=== PATIENT | male | born 1965 | race Two or more races ===

== ENCOUNTER → 2017-04-10 | Outpatient (CLI) | payer OTHER ==
[~2017-04-10] MED LIST: /ESOM40CA PO; /FENO14TA PO; ALLO100T OR; AMBI10TA OR; AMBI10TA PO; AMBI12.52 PO; ASPI325T OR; ASPI81TA85 PO; ATEN100T; ATEN100T OR; ATEN100T PO; ATEN50TA2; ATENPOW; BENGGEL2 TOP; CALCTAB28 PO; CITALOPRAM PO; CLONI1TA PO; DICL50TA2 PO; ESZO1TAB2 PO; FOLI1TAB OR; HYDR-3363 PO; HYDR10TAB PO; INDO25CA PO; INDO50CA PO; LIDO5DIS41 TD; LIPI10TA PO; LISI10TA4 PO; LOVA1CAP16 PO; LUNE2TAB23 PO; LYRI75CA OR; METH2.5T OR; NAPR500T PO; NAPR500T2 PO; NEUR300C PO; NICO14DI3 TD; NICO21DI4 TD; NICO7DIS4 TD; NORV5TAB PO; OXYC-208 PO; PAXI20TA OR; PLAQ200T PO; PLAQUENIL PO; PRED20TA OR; PREG50CA OR; SERT100T OR; TRAM50TA2 OR; TRAZ100T OR; TRIC145T19 OR; TYL RE; TYLE325T5 PO; ULTR50TA PO; ZEST10TA OR; ZETI10TA OR; ZETI10TA21 PO; ZOLO50TA; ZOLOFT PO; lovaza OR; oxycodone IR PO; plaquenil OR
--- NOTE | 2017-04-29 01:19 | ECWPNPC ---
PATIENT NAME: JANICE LAY : 1965 GENDER: MALE VISIT DATE: 04/10/2017 DISCHARGE DATE: 04/10/17 1400 VISIT LOCKED DATE TIME: PHYSICIAN: VIJI RODRIGUEZ RESOURCE: VIJI RODRIGUEZ REASON FOR APPOINTMENT 1. BACK/ANKLES HISTORY OF PRESENT ILLNESS NEW PATIENT CONSULT: WHEN DID YOUR PAIN FIRST START? . BRIEFLY DESCRIBE HOW YOUR PAIN STARTED? . HOW DOES YOUR PAIN CHANGE WITH TIME? . DOES YOUR PAIN AWAKEN YOU FROM SLEEP? . HOW MANY HOURS OF SLEEP DO YOU NORMALLY GET? . ANY DIAGNOSTIC TESTING? . FACILITY WHERE TESTS WERE DONE? ____. PAIN TREATMENT TREATMENT YES CANCER HAVE YOU EVER HAD ANY TYPE OF CANCER?NO NO. PAIN SCREENING: PATIENT HAS A COMPLAINT OF ACUTE OR CHRONIC PAIN :YES FALL RISK SCREENING: SCREENING :NO FALLS IN THE PAST YEAR [place] INVENTORY: QUESTIONNAIRE ASSESSEDYES SCORE VALUE CALCULATED YES SCORE: 9/63 DENIES SUICIDAL OR HOMICIDAL IDEATION. STATES HE HAS RESOLVED HIS LEGAL AND RELATIONSHIP ISSUES TODAY'S VISIT: NOTES: FORMER PATIENT AT [facility]IN [facility] FOR SAME COMPLAINT BY ANNE-MARIE MCDERMOTT AT [facility]. HE WAS LAST SEEN HERE 12/28/14. HAS HAS NOT SEEN ORTHOPEDICS IN [place] SINCE LAST VISIT. IS CURRENTLY USING WALKER 4-6 TIMES MONTH. HAS BEEN TRYING TO LOSE WEIGHT BUT CAN'T. PAIN IS WORSE WITH STANDING. ANKLES ARE NO LONGER SWELLING WITH INDOCIN. IS TOLERATING THIS MED.. CURRENT MEDICATIONS TAKING ALLOPURINOL 100 MG TABLET 1 TABLET ORALLY TWICE A DAY TAKING LEVOTHYROXINE SODIUM 75 MCG TABLET 1 TABLET ON AN EMPTY STOMACH IN THE MORNING ORALLY ONCE A DAY TAKING OMEPRAZOLE 20 MG CAPSULE DELAYED RELEASE 1 CAPSULE ORALLY ONCE A DAY TAKING METFORMIN HCL 500 MG TABLET 1 TABLET WITH MEALS ORALLY TWICE A DAY TAKING SIMVASTATIN 40 MG TABLET 1 TABLET IN THE EVENING ORALLY ONCE A DAY TAKING HYDROXYZINE HCL 25 MG TABLET 1 TABLET NEEDED ORALLY EVERY 6 HRS TAKING CITALOPRAM HYDROBROMIDE 20 MG TABLET 1 TABLET ORALLY ONCE A DAY TAKING ASPIRIN ADULT LOW STRENGTH 81 MG TABLET DELAYED RELEASE 1 TABLET ORALLY ONCE A DAY TAKING GEMFIBROZIL 600 MG TABLET 1 TABLET ORALLY TWICE A DAY TAKING INDOMETHACIN 50 MG CAPSULE 1 CAPSULE WITH FOOD OR MILK ORALLY TWICE A DAY NOT-TAKING ZOLOFT 100 MG TABLET 1 TABLET ORALLY ONCE A DAY MEDICATION LIST REVIEWED AND RECONCILED WITH THE PATIENT PAST MEDICAL HISTORY HYPERTENSION HISTORY OF STROKE DIABETES HYPOTHYROIDISM BILATERAL ANKLE PAIN LOW BACK PAIN ANXIETY RHEUMATOID ARTHRITIS GERD HYPERLIPIDEMIA DEPRESSION GOUT GALL STONES ALLERGIES NIACIN: RED/TINGLY: ALLERGY SURGICAL HISTORY APPENDECTOMY 2010 FAMILY HISTORY FATHER: , DIAGNOSED WITH DIABETES, HYPERTENSION, HEART DISEASE, STROKE MOTHER: ALIVE, DIAGNOSED WITH CANCER 4 BROTHER(S) , 1 SISTER(S) - HEALTHY. 1 SON(S) , 1 DAUGHTER(S) - HEALTHY. SOCIAL HISTORY GENERAL: TOBACCO USE ARE YOU A:CURRENT SMOKER HOW MANY CIGARETTES A DAY DO YOU SMOKE?6-10 PATIENT COUNSELED ON THE DANGERS OF TOBACCO USE AND URGED TO QUIT:04/10/2017 ARE YOU INTERESTED IN QUITTING?THINKING ABOUT QUITTING PREVIOUS QUIT ATTEMPTS?NO. COUNSELED THE PATIENT ON SMOKING CESSATION, EDUCATION [id number]/10/2017 RECREATIONAL DRUG USE DRUG USE?YES HOW OFTEN AND HOW MUCH? MARIJUANA FOR PAIN. USING MARIJUANA ONCE A WEEK CAFFEINE CAFFEINE USE?NO MARITAL STATUS: SINGLE. 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 ADVANCE DIRECTIVES HEALTH CARE PROXY?NO WOULD YOU LIKE MORE INFORMATION?NO DO YOU HAVE A DNR?NO WOULD YOU LIKE MORE INFORMATION?NO LIVING WILL?NO WOULD YOU LIKE MORE INFORMATION?NO POWER OF MEDICAL RECEPTIONIST?NO WOULD YOU LIKE MORE INFORMATION?NO REVIEW OF SYSTEMS REVIEWED BY: PROVIDER: VIJI VALDEZ . CONSTITUTIONAL: ANY CHANGE IN YOUR MEDICAL CONDITION? NO . CHILLS NO . FEVER NO . INFECTION: DO YOU HAVE NEW INFECTIONS? NO . DO YOU HAVE HISTORY OF MRSA? NO . MUSCULOSKELETAL: ANY NEW PATTERNS OF PAIN OR NUMBNESS? NO . SYTEMIC LUPUS NO . GASTROENTEROLOGY: GENERAL RECENTLY DIAGNOSED WITH GALL STONES AND IS BEING SCHEDULED TO SEE SURGEON. . ANY NEW CHANGE IN BOWEL CONTROL? NO . BARRETTS ESOPHAGUS NO . CIRRHOSIS NO . HEPATITIS NO . LIVER FAILURE NO . ACID REFLUX YES . UNEXPLAINED WEIGHT LOSS NO . GENITOURINARY: ANY NEW CHANGE IN BLADDER CONTROL? NO . IS THERE A CHANCE YOU COULD BE ? NO . HEMATOLOGY/LYMPH: DO YOU TAKE ANY BLOOD THINNERS? (FOR EXAMPLE- COUMADIN, PLAVIX, AGGRENOX, PLATEL, PRADAXA, OR XARELTO) NO . WHEN WAS YOUR LAST DOSE? DATE: TIME: . LOW PLATELET COUNT NO . SICKLE CELL DISEASE NO . VON WILLIEBRANDS NO . FACTOR V LEIDEN NO . THALLASEMIA NO . ANEMIA NO . EASY BRUISING NO . NEUROLOGY: HAVE YOU FALLEN IN THE PAST 6 MONTHS? NO . ANY NEW EXTREMITY NUMBNESS OR WEAKNESS? NO . HEAD INJURY NO . DEMENTIA NO . CEREBRAL PALSY NO . MULTIPLE SCLEROSIS NO . DIZZINESS NO . HEADACHE NO . STROKES NO . VERTIGO NO . CARDIOLOGY: DO YOU HAVE A PACEMAKER OR DEFIBRILLATOR? NO . ANGINA NO . HEART ATTACK NO . HEART SURGERY NO . CONGESTIVE HEART FAILURE/FLUID OVERLOAD NO . CHEST PAIN NO . HIGH BLOOD PRESSURE YES . IRREGULAR HEART BEAT NO . RESPIRATORY: HAVE YOU BEEN SICK IN THE PAST WEEK? NO . FEVER NO . FLU LIKE SYMPTOMS? NO . CPAP NO . BYPAP NO . ASTHMA NO . EMPHYSEMA NO . CHRONIC LUNG DISEASES NO . SHORTNESS OF BREATH ON EXERTION NO . DO YOU USE ANY TYPE OF TOBACCO (SMOKE, SMOKELESS, CHEW)? YES . COUGH NO . SNORING NO . INTEGUMENTARY: DO YOU HAVE ANY RASHES OR OPEN SORES? NO . ALLERGIC/IMMUNO: ARE YOU ALLERGIC TO SHELLFISH OR IV DYE? NO . ANY NEW ALLERGIES? NO . PSYCHIATRIC: DO YOU HAVE THOUGHTS OF HURTING YOURSELF OR SOMEONE ELSE? NO . ARE YOU ABUSED, NEGLECTED, OR IN AN UNSAFE ENVIRONMENT? NO . ENDOCRINOLOGY: ARE YOU DIABETIC? YES . THYROID DISORDER HYPOTHYROID . OTHER: DO YOU NEED ANY PRESCRIPTIONS? NO . IF YES, PLEASE LIST: ____ . ANY NEW PROBLEMS WITH YOUR MEDICATIONS? NO . WHEN DID YOU LAST EAT? ____ . WHEN DID YOU LAST DRINK? ____ . WHAT DID YOU LAST DRINK? ____ . NAME OF PERSON DRIVING YOU HOME? ____ . DO YOU HAVE ANY OTHER QUESTIONS OR CONCERNS NO . VITAL SIGNS WT 237 LBS, HT 58 IN, BMI 49.53 INDEX, BP 166/89 MM HG, HR 65 /MIN, RR 18 /MIN, TEMP 95.8 F, OXYGEN SAT % 96, NA INITIALS AW 1310, REVIEWED BY: TONY. EXAMINATION GENERAL EXAMINATION: GENERAL APPEARANCE:OVERWEIGHT, SOME HYGEINE ISSUES. PSYCHALERT , ORIENTED X 3 , APPROPRIATE MOOD AND AFFECT , GOOD EYE CONTACT. HEENT:NORMOCEPHALIC, NASAL CONGESTION, NO LYMPHADENOPATHY, NO THYROMEGLY. LUNGS:CLEAR TO AUSCULTATION BILATERALLY, NO WHEEZES, RLLES OR RHONCHI. MUSCULOSKELETAL:MUSCLE STRENGTH TESTING 5/5 BILATERAL UPPER AND LOWER EXTREMITIES. MILD TENDERNESS WITH PALPATION OVERLUMBAR SPINOUS PROCESSES AND ACROSS LUMBOSACRAL AXIS. SLPW TO RISE TO SITTING POSITION. POSTURE UPRIGHT. GAIT SLOW, ANTALGIC. JOINTS:BILATERAL, ANKLE , PAIN , SWELLING . TENDER OVER LATERAL AND MEDIAL MALLEOLUS. LIMITED FLEXION, EXTSION AND ROTATION. SKIN:WARM, DRY , NO RASH OR SKIN LESIONS. DIAGNOSTIC TESTS REVIEWEDMRI OF RIGHT ANKLE COMPLETED 12/20/14 REVIEWED. ASSESSMENTS PAIN IN RIGHT ANKLE AND JOINTS OF RIGHT FOOT - M25.571 (PRIMARY) PAIN IN LEFT ANKLE AND JOINTS OF LEFT FOOT - M25.572 OTHER CHRONIC PAIN - G89.29 TREATMENT PAIN IN RIGHT ANKLE AND JOINTS OF RIGHT FOOT NOTES: REFER TO DR EDDA MARKHAM FOR MEDICAL MARIJUANA. WALK TOLERATED. REVIEWED WIT PATIENT THAT OPTIONS FOR USE OF OPIATES WOULD BE VERY LIMITED CONTINUE WITH NDOCIN TOLERATED. WATCH FOR ANY GI EFFECTS SUCH BLOOD IN STOOL OR WITH EMESIS. INSTRUCTED TO REFRAIN FROM ALCOHOL USE. CLINICAL NOTES: ISTOP REGISTRY REVIEWED AND DEMNOSTRATES COMPLLIANCE. PROCEDURE CODES FA211 ESTABILISHED PATIENT [facility] FACILITY CHARGE DISPOSITION & COMMUNICATION FOLLOW UP 1 MONTH (REASON: ANKLE PAIN) ELECTRONICALLY SIGNED BY BALDEMAR MACKENZIE ON 04/28/2017 AT 08:33 AM EDT DISCLAIMER : THIS IS A VISIT SUMMARY EXTRACTED FROM THE [employer] CHART. IT IS NOT A COPY OF THE [employer] PROGRESS NOTE. ZURI
== END ==
LOC: M PAIN 13:00
PROVIDERS: ATTEND Nurse Practitioner Family
DX: M25.571 Pain in right ankle and joints of right foot (principal); M25.572 Pain in left ankle and joints of left foot; G89.29 Other chronic pain; Z79.82 Long term (current) use of aspirin; Z79.84 Long term (current) use of oral hypoglycemic drugs; Z79.899 Other long term (current) drug therapy; F17.210 Nicotine dependence, cigarettes, uncomplicated; F12.90 Cannabis use, unspecified, uncomplicated; Z88.8 Allergy status to other drugs, medicaments and biological substances

== ENCOUNTER → 2017-05-08 | Outpatient (CLI) | payer OTHER ==
--- NOTE | 2017-05-25 00:41 | ECWPNPC ---
PATIENT NAME: JANICE LAY : 1965 GENDER: MALE VISIT DATE: 05/08/2017 DISCHARGE DATE: 05/08/17 1419 VISIT LOCKED DATE TIME: PHYSICIAN: VIJI RODRIGUEZ RESOURCE: VIJI RODRIGUEZ REASON FOR APPOINTMENT 1. ANKLE PAIN HISTORY OF PRESENT ILLNESS HISTORY OF PRESENT ILLNESS: PAIN THE PATIENT DESCRIBES THE PAIN... FALL RISK SCREENING: SCREENING :NO FALLS IN THE PAST YEAR TODAY'S VISIT: NOTES: RATES PAIN TODAY 7/10. DESCRIBES PAIN CONSTANT, SHARP AND ACHING. NOTES HIS USUAL PAIN IN THE FEET AND NEW PAIN IN THE LEFT ABD. IS S/P CHOLECYSTECTOMY ON 04/21/17. HAD ONSET OF LEFT UPPER AND LOWER ABDOMENAL PAIN. TOOK A FRIENDS PERCOCET THE PAIN WAS SO SEVERE. . CURRENT MEDICATIONS TAKING ALLOPURINOL 100 MG TABLET 1 TABLET ORALLY TWICE A DAY TAKING LEVOTHYROXINE SODIUM 75 MCG TABLET 1 TABLET ON AN EMPTY STOMACH IN THE MORNING ORALLY ONCE A DAY TAKING OMEPRAZOLE 20 MG CAPSULE DELAYED RELEASE 1 CAPSULE ORALLY ONCE A DAY TAKING METFORMIN HCL 500 MG TABLET 1 TABLET WITH MEALS ORALLY TWICE A DAY TAKING SIMVASTATIN 40 MG TABLET 1 TABLET IN THE EVENING ORALLY ONCE A DAY TAKING HYDROXYZINE HCL 25 MG TABLET 1 TABLET NEEDED ORALLY EVERY 6 HRS TAKING CITALOPRAM HYDROBROMIDE 20 MG TABLET 1 TABLET ORALLY ONCE A DAY TAKING ASPIRIN ADULT LOW STRENGTH 81 MG TABLET DELAYED RELEASE 1 TABLET ORALLY ONCE A DAY TAKING GEMFIBROZIL 600 MG TABLET 1 TABLET ORALLY TWICE A DAY TAKING INDOMETHACIN 50 MG CAPSULE 1 CAPSULE WITH FOOD OR MILK ORALLY TWICE A DAY NOT-TAKING ZOLOFT 100 MG TABLET 1 TABLET ORALLY ONCE A DAY MEDICATION LIST REVIEWED AND RECONCILED WITH THE PATIENT PAST MEDICAL HISTORY HYPERTENSION HISTORY OF STROKE DIABETES HYPOTHYROIDISM BILATERAL ANKLE PAIN LOW BACK PAIN ANXIETY RHEUMATOID ARTHRITIS GERD HYPERLIPIDEMIA DEPRESSION GOUT GALL STONES ALLERGIES NIACIN: RED/TINGLY: ALLERGY SURGICAL HISTORY APPENDECTOMY 2010 CHOLECYSTECTOMY 04/21/17 SOCIAL HISTORY GENERAL: TOBACCO USE ARE YOU A:CURRENT SMOKER HOW MANY CIGARETTES A DAY DO YOU SMOKE?6-10 PATIENT COUNSELED ON THE DANGERS OF TOBACCO USE AND URGED TO QUIT:04/10/2017 ARE YOU INTERESTED IN QUITTING?THINKING ABOUT QUITTING PREVIOUS QUIT ATTEMPTS?NO. COUNSELED THE PATIENT ON SMOKING CESSATION, EDUCATION [id number]/10/2017 RECREATIONAL DRUG USE DRUG USE?YES HOW OFTEN AND HOW MUCH? MARIJUANA FOR PAIN. USING MARIJUANA ONCE A WEEK CAFFEINE CAFFEINE USE?NO MARITAL STATUS: SINGLE. 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 ADVANCE DIRECTIVES HEALTH CARE PROXY?NO WOULD YOU LIKE MORE INFORMATION?NO DO YOU HAVE A DNR?NO WOULD YOU LIKE MORE INFORMATION?NO LIVING WILL?NO WOULD YOU LIKE MORE INFORMATION?NO POWER OF GRADING SUPERVISOR?NO WOULD YOU LIKE MORE INFORMATION?NO REVIEW OF SYSTEMS REVIEWED BY: PROVIDER: VIJI VALDEZ . CONSTITUTIONAL: ANY CHANGE IN YOUR MEDICAL CONDITION? YES, CHOLECYSTECTOMY 04/21/17 AND CONTINUES TO HAVE SAME PAIN RIGHT SIDE OF ABDOMEN PRIOR TO SURGERY. PATIENT SAW SURGEON YESTERDAY REGARDING THIS PAIN AND HE HAS ORDERED A SCAN. . CHILLS NO . FEVER NO . INFECTION: DO YOU HAVE NEW INFECTIONS? NO . DO YOU HAVE HISTORY OF MRSA? NO . MUSCULOSKELETAL: ANY NEW PATTERNS OF PAIN OR NUMBNESS? NO . GASTROENTEROLOGY: GENERAL NO CONSTIPATION, DIARRHEA, RARE GAS PAIN. NO HEMATECHEZIA . ANY NEW CHANGE IN BOWEL CONTROL? NO . GENITOURINARY: ANY NEW CHANGE IN BLADDER CONTROL? NO . IS THERE A CHANCE YOU COULD BE ? NO . HEMATOLOGY/LYMPH: DO YOU TAKE ANY BLOOD THINNERS? (FOR EXAMPLE- COUMADIN, PLAVIX, AGGRENOX, PLATEL, PRADAXA, OR XARELTO) NO . WHEN WAS YOUR LAST DOSE? DATE: TIME: . NEUROLOGY: HAVE YOU FALLEN IN THE PAST 6 MONTHS? NO . ANY NEW EXTREMITY NUMBNESS OR WEAKNESS? NO . CARDIOLOGY: DO YOU HAVE A PACEMAKER OR DEFIBRILLATOR? NO . CHEST PAIN EPIGASTRIC . RESPIRATORY: TROUBLE SLEEPING DIFF WITH PAIN . HAVE YOU BEEN SICK IN THE PAST WEEK? NO . FEVER NO . FLU LIKE SYMPTOMS? NO . DO YOU USE ANY TYPE OF TOBACCO (SMOKE, SMOKELESS, CHEW)? CUTTING BACK TO 8/DAY . COUGH NO . INTEGUMENTARY: DO YOU HAVE ANY RASHES OR OPEN SORES? NO . ALLERGIC/IMMUNO: ARE YOU ALLERGIC TO SHELLFISH OR IV DYE? NO . ANY NEW ALLERGIES? NO . PSYCHIATRIC: DO YOU HAVE THOUGHTS OF HURTING YOURSELF OR SOMEONE ELSE? NO . ARE YOU ABUSED, NEGLECTED, OR IN AN UNSAFE ENVIRONMENT? NO . ENDOCRINOLOGY: ARE YOU DIABETIC? YES . OTHER: DO YOU NEED ANY PRESCRIPTIONS? NO . IF YES, PLEASE LIST: ____ . ANY NEW PROBLEMS WITH YOUR MEDICATIONS? NO . WHEN DID YOU LAST EAT? ____ . WHEN DID YOU LAST DRINK? ____ . WHAT DID YOU LAST DRINK? ____ . NAME OF PERSON DRIVING YOU HOME? ____ . DO YOU HAVE ANY OTHER QUESTIONS OR CONCERNS NO . VITAL SIGNS WT 230 LBS, HT 58 IN, BMI 48.06 INDEX, BP 132/87 MM HG, HR 79 /MIN, RR 18 /MIN, TEMP 96.5 F, OXYGEN SAT % 98, NA INITIALS AW 1325, REVIEWED BY: CS. EXAMINATION GENERAL EXAMINATION: GENERAL APPEARANCE:OVERWEIGHT. PSYCHALERT , ORIENTED X 3 , APPROPRIATE MOOD AND AFFECT , GOOD EYE CONTACT. HEENT: NASAL CONGESTION, . LUNGS:CLEAR TO AUSCULTATION BILATERALLY. MUSCULOSKELETAL:MUSCLE STRENGTH TESTING 5/5 BILATERAL UPPER AND LOWER EXTREMITIES. MILD TENDERNESS WITH PALPATION OVERLUMBAR SPINOUS PROCESSES AND ACROSS LUMBOSACRAL AXIS. SLPW TO RISE TO SITTING POSITION. POSTURE UPRIGHT. GAIT SLOW, ANTALGIC. JOINTS:BILATERAL, ANKLE , PAIN , SWELLING . TENDER OVER LATERAL AND MEDIAL MALLEOLUS. LIMITED FLEXION, EXTSION AND ROTATION. SKIN:WARM, DRY , NO RASH OR SKIN LESIONS. HELING LAPROSCOPIC WOUNDS NOTED OVER ABDOMEN. ASSESSMENTS PAIN IN RIGHT ANKLE AND JOINTS OF RIGHT FOOT - M25.571 (PRIMARY) PAIN IN LEFT ANKLE AND JOINTS OF LEFT FOOT - M25.572 OTHER CHRONIC PAIN - G89.29 LEFT UPPER QUADRANT PAIN - R10.12 TREATMENT PAIN IN RIGHT ANKLE AND JOINTS OF RIGHT FOOT START OXYCODONE HCL TABLET, 15 MG, 1 TABLET NEEDED, ORALLY, EVERY 6 HRS PRN PAIN MDD60 FOR 15 DAY SUPPLY, 15 DAYS, 60, REFILLS 0 NOTES: CALL IF CONSTIPATED. STOP INDOCIN. CALL IN 2 WEEKS TO RENEW OXYCODONE. CLINICAL NOTES: ISTOP REGISTRY REVIEWED AND DEMNOSTRATES COMPLLIANCE.DISCUSSION HELD AND PATIENT AGREES TO NOT USE ANY MEDS BUT HIS OWN. HE MUST KEEP HIS OWN MEDS SECURED. HE MUST NOT USE ANY ALCOHOL. PREVENTIVE MEDICINE PAIN CLINIC TEACHING: MEDICATIONS OXYCODONE. PROCEDURE CODES FA211 ESTABILISHED PATIENT [facility] CHARGE DISPOSITION & COMMUNICATION FOLLOW UP 26-28 DAYS (REASON: FOOT PAIN, ABD PAIN) ELECTRONICALLY SIGNED BY BALDEMAR MACKENZIE ON 05/24/2017 AT 03:20 PM EDT DISCLAIMER : THIS IS A VISIT SUMMARY EXTRACTED FROM THE [employer] CHART. IT IS NOT A COPY OF THE [employer] PROGRESS NOTE. ZURI
== END ==
LOC: M PAIN 13:15
PROVIDERS: ATTEND Nurse Practitioner Family
DX: M25.571 Pain in right ankle and joints of right foot (principal); M25.572 Pain in left ankle and joints of left foot; G89.29 Other chronic pain; R10.12 Left upper quadrant pain; E11.9 Type 2 diabetes mellitus without complications; E03.9 Hypothyroidism, unspecified; K21.9 Gastro-esophageal reflux disease without esophagitis; E78.5 Hyperlipidemia, unspecified; Z79.84 Long term (current) use of oral hypoglycemic drugs; Z79.82 Long term (current) use of aspirin; Z79.899 Other long term (current) drug therapy; Z88.8 Allergy status to other drugs, medicaments and biological substances

== ENCOUNTER → 2017-06-26 | Outpatient (CLI) | payer OTHER ==
--- NOTE | 2017-07-28 00:46 | ECWPNPC ---
PATIENT NAME: JANICE LAY : 1965 GENDER: MALE VISIT DATE: 06/26/2017 DISCHARGE DATE: 06/26/17 1542 VISIT LOCKED DATE TIME: PHYSICIAN: VIJI RODRIGUEZ RESOURCE: VIJI RODRIGUEZ REASON FOR APPOINTMENT 1. ANKLES AND BACK HISTORY OF PRESENT ILLNESS HISTORY OF PRESENT ILLNESS: PAIN THE PATIENT DESCRIBES THE PAIN... FALL RISK SCREENING: SCREENING :NO FALLS IN THE PAST YEAR TODAY'S VISIT: NOTES: RATES PAIN TODAY 2/10. THIS IS AFTER PAIN MEDS. THE WORST AREA IS THE RIGHT ABD AND FLANK AREA. ON A FEW OCCCASIONS USUAL ANKLE PAIN HAS BEEN OVERWHELMING AND NEEDED TO USE THE WALKER. PAIN MEDS ARE PRODUCING CONSTIPATION. IS CONTINUING TO HAVE SEVERE RUQ ABDOMENAL PAIN IS FOLLOWING WITH GASTROENTEROLOGY AND HIS PCP FOR THIS. CURRENT MEDICATIONS TAKING ALLOPURINOL 100 MG TABLET 1 TABLET ORALLY TWICE A DAY TAKING LEVOTHYROXINE SODIUM 75 MCG TABLET 1 TABLET ON AN EMPTY STOMACH IN THE MORNING ORALLY ONCE A DAY TAKING OMEPRAZOLE 20 MG CAPSULE DELAYED RELEASE 1 CAPSULE ORALLY ONCE A DAY TAKING METFORMIN HCL 500 MG TABLET 1 TABLET WITH MEALS ORALLY TWICE A DAY TAKING SIMVASTATIN 40 MG TABLET 1 TABLET IN THE EVENING ORALLY ONCE A DAY TAKING HYDROXYZINE HCL 25 MG TABLET 1 TABLET NEEDED ORALLY EVERY 6 HRS TAKING CITALOPRAM HYDROBROMIDE 20 MG TABLET 1 TABLET ORALLY ONCE A DAY TAKING ASPIRIN ADULT LOW STRENGTH 81 MG TABLET DELAYED RELEASE 1 TABLET ORALLY ONCE A DAY TAKING GEMFIBROZIL 600 MG TABLET 1 TABLET ORALLY TWICE A DAY TAKING INDOMETHACIN 50 MG CAPSULE 1 CAPSULE WITH FOOD OR MILK ORALLY TWICE A DAY TAKING OXYCODONE HCL 15 MG TABLET 1 TABLET NEEDED ORALLY EVERY 6 HRS PRN PAIN MDD60 FOR 15 DAY SUPPLY NOT-TAKING ZOLOFT 100 MG TABLET 1 TABLET ORALLY ONCE A DAY MEDICATION LIST REVIEWED AND RECONCILED WITH THE PATIENT PAST MEDICAL HISTORY HYPERTENSION HISTORY OF STROKE DIABETES HYPOTHYROIDISM BILATERAL ANKLE PAIN LOW BACK PAIN ANXIETY RHEUMATOID ARTHRITIS GERD HYPERLIPIDEMIA DEPRESSION GOUT GALL STONES ALLERGIES NIACIN: RED/TINGLY: ALLERGY SOCIAL HISTORY GENERAL: TOBACCO USE ARE YOU A:CURRENT SMOKER HOW MANY CIGARETTES A DAY DO YOU SMOKE?6-10 PATIENT COUNSELED ON THE DANGERS OF TOBACCO USE AND URGED TO QUIT:04/10/2017 ARE YOU INTERESTED IN QUITTING?THINKING ABOUT QUITTING PREVIOUS QUIT ATTEMPTS?NO. COUNSELED THE PATIENT ON SMOKING CESSATION, EDUCATION [id number]/10/2017 ALCOHOL SCREENING POINTS4 INTERPRETATIONPOSITIVE RECREATIONAL DRUG USE DRUG USE?YES HOW OFTEN AND HOW MUCH? MARIJUANA FOR PAIN. USING MARIJUANA ONCE A WEEK CAFFEINE CAFFEINE USE?NO MARITAL STATUS: SINGLE. 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 ADVANCE DIRECTIVES HEALTH CARE PROXY?NO WOULD YOU LIKE MORE INFORMATION?NO DO YOU HAVE A DNR?NO WOULD YOU LIKE MORE INFORMATION?NO LIVING WILL?NO WOULD YOU LIKE MORE INFORMATION?NO POWER OF SENIOR MOBILE SOLUTIONS ARCHITECT?NO WOULD YOU LIKE MORE INFORMATION?NO REVIEW OF SYSTEMS REVIEWED BY: PROVIDER: VIJI VALDEZ . CONSTITUTIONAL: ANY CHANGE IN YOUR MEDICAL CONDITION? NO . CHILLS NO . FEVER NO . INFECTION: DO YOU HAVE NEW INFECTIONS? NO . DO YOU HAVE HISTORY OF MRSA? NO . MUSCULOSKELETAL: ANY NEW PATTERNS OF PAIN OR NUMBNESS? NO . GASTROENTEROLOGY: ANY NEW CHANGE IN BOWEL CONTROL? YES, CONSTIPATED FOR PAST MONTH . GENITOURINARY: ANY NEW CHANGE IN BLADDER CONTROL? NO . IS THERE A CHANCE YOU COULD BE ? NO . HEMATOLOGY/LYMPH: DO YOU TAKE ANY BLOOD THINNERS? (FOR EXAMPLE- COUMADIN, PLAVIX, AGGRENOX, PLATEL, PRADAXA, OR XARELTO) NO . WHEN WAS YOUR LAST DOSE? DATE: TIME: . NEUROLOGY: HAVE YOU FALLEN IN THE PAST 6 MONTHS? NO . ANY NEW EXTREMITY NUMBNESS OR WEAKNESS? NO . CARDIOLOGY: DO YOU HAVE A PACEMAKER OR DEFIBRILLATOR? NO . RESPIRATORY: HAVE YOU BEEN SICK IN THE PAST WEEK? NO . FEVER NO . FLU LIKE SYMPTOMS? NO . COUGH NO . INTEGUMENTARY: DO YOU HAVE ANY RASHES OR OPEN SORES? NO . ALLERGIC/IMMUNO: ARE YOU ALLERGIC TO SHELLFISH OR IV DYE? NO . ANY NEW ALLERGIES? NO . PSYCHIATRIC: DO YOU HAVE THOUGHTS OF HURTING YOURSELF OR SOMEONE ELSE? NO . ARE YOU ABUSED, NEGLECTED, OR IN AN UNSAFE ENVIRONMENT? NO . ENDOCRINOLOGY: ARE YOU DIABETIC? YES . OTHER: DO YOU NEED ANY PRESCRIPTIONS? NO . IF YES, PLEASE LIST: ____ . ANY NEW PROBLEMS WITH YOUR MEDICATIONS? NO . WHEN DID YOU LAST EAT? ____ . WHEN DID YOU LAST DRINK? ____ . WHAT DID YOU LAST DRINK? ____ . NAME OF PERSON DRIVING YOU HOME? ____ . DO YOU HAVE ANY OTHER QUESTIONS OR CONCERNS NO . VITAL SIGNS WT 228.6 LBS, HT 58 IN, BMI 47.77 INDEX, BP 139/91 MM HG, HR 73 /MIN, RR 18 /MIN, TEMP 96.0 F, OXYGEN SAT % 98%, NA INITIALS TL 1450, REVIEWED BY: TONY. EXAMINATION GENERAL EXAMINATION: GENERAL APPEARANCE:OVERWEIGHT . PSYCHALERT , ORIENTED X 3 , APPROPRIATE MOOD AND AFFECT , GOOD EYE CONTACT . HEENT: NASAL CONGESTION, . LUNGS:CLEAR TO AUSCULTATION BILATERALLY . ABDOMEN:TENDER TO PALPATION RIGHT UPPER QUADRANT. , NO MASSES PALPATED. BOWEL SOUNDS QUIET TODAY. MUSCULOSKELETAL:MUSCLE STRENGTH TESTING 5/5 BILATERAL UPPER AND LOWER EXTREMITIES. MILD TENDERNESS WITH PALPATION OVERLUMBAR SPINOUS PROCESSES AND ACROSS LUMBOSACRAL AXIS. SLPW TO RISE TO SITTING POSITION. POSTURE UPRIGHT. GAIT SLOW, ANTALGIC . JOINTS:BILATERAL, ANKLE , PAIN , SWELLING . TENDER OVER LATERAL AND MEDIAL MALLEOLUS. LIMITED FLEXION, EXTSION AND ROTATION . SKIN:WARM, DRY , NO RASH OR SKIN LESIONS. HELING LAPROSCOPIC WOUNDS NOTED OVER ABDOMEN . ASSESSMENTS PAIN IN RIGHT ANKLE AND JOINTS OF RIGHT FOOT - M25.571 (PRIMARY) PAIN IN LEFT ANKLE AND JOINTS OF LEFT FOOT - M25.572 OTHER CHRONIC PAIN - G89.29 LEFT UPPER QUADRANT PAIN - R10.12 TREATMENT PAIN IN RIGHT ANKLE AND JOINTS OF RIGHT FOOT START HYDROMORPHONE HCL TABLET, 4 MG, 1 TABLET NEEDED, ORALLY, EVERY 6 HRS PRN PAIN MDD=4, 30 DAY(S), 120, REFILLS 0 NOTES: UTOX TODAY URINE TOX DONE PER ORDER- CM. CLINICAL NOTES: ISTOP REGISTRY REVIEWED AND DEMNOSTRATES COMPLLIANCE. (REF #[id number]) BRINGS IN MEDICATIONS WHICH IS APPROPRIATE FOR WHAT WAS DISPENSED. RECENT URINE TOXICOLOGY REVIEWED. NO UNAUTHORIZED MEDICATIONS. NO ILLICIT SUBSTANCES AND PRESCRIBED MEDICATIONS WERE PRESENT. , RISKS AND BENEFITS OF NARCOTIC/OPIOD MEDICATIONS WERE REVIEWED WITH PATIENT - THIS INCLUDES BUT IS NOT LIMITED TO RISK OF DEPENDANCE/DEVELOPMENT OF ADDICTION, MOOD DISTURBANCE AND DEPRESSION, OSTEOPOROSIS, HORMONAL AND LABIDAL CHANGES, RESPIRATORY DEPRESSION AND . PATIENT IS ADVISED NOT TO DRIVE WHILE ON THESE MEDICATIONS. PREVENTIVE MEDICINE PAIN CLINIC TEACHING: MEDICATIONS PRINT OUT FOR HYDROMORPHONE PROVIDED FOR PATIENT. . PROCEDURE CODES FA211 ESTABILISHED PATIENT [facility] CHARGE DISPOSITION & COMMUNICATION FOLLOW UP 3 WEEKS (REASON: ABD PAIN/ANKLE PAIN) ELECTRONICALLY SIGNED BY BALDEMAR MACKENZIE ON 07/27/2017 AT 12:26 PM EST DISCLAIMER : THIS IS A VISIT SUMMARY EXTRACTED FROM THE [employer] CHART. IT IS NOT A COPY OF THE [employer] PROGRESS NOTE. ZURI
== END ==
LOC: M PAIN 14:15
PROVIDERS: ATTEND Nurse Practitioner Family
DX: M25.571 Pain in right ankle and joints of right foot (principal); M25.572 Pain in left ankle and joints of left foot; G89.29 Other chronic pain; R10.12 Left upper quadrant pain; I10 Essential (primary) hypertension; E11.9 Type 2 diabetes mellitus without complications; E03.9 Hypothyroidism, unspecified; K21.9 Gastro-esophageal reflux disease without esophagitis; F17.210 Nicotine dependence, cigarettes, uncomplicated; Z79.82 Long term (current) use of aspirin; Z79.84 Long term (current) use of oral hypoglycemic drugs; Z79.891 Long term (current) use of opiate analgesic; Z79.899 Other long term (current) drug therapy; Z88.8 Allergy status to other drugs, medicaments and biological substances

== ENCOUNTER → 2017-07-17 | Outpatient (CLI) | payer OTHER ==
--- NOTE | 2017-07-30 01:03 | ECWPNPC ---
PATIENT NAME: JANICE LAY : 1965 GENDER: MALE VISIT DATE: 07/17/2017 DISCHARGE DATE: 07/17/17 1454 VISIT LOCKED DATE TIME: PHYSICIAN: VIJI RODRIGUEZ RESOURCE: VIJI RODRIGUEZ REASON FOR APPOINTMENT 1. ABD PAIN/ANKLE PAIN HISTORY OF PRESENT ILLNESS HISTORY OF PRESENT ILLNESS: PAIN THE PATIENT DESCRIBES THE PAIN... FALL RISK SCREENING: SCREENING :NO FALLS IN THE PAST YEAR TODAY'S VISIT: NOTES: HYDROMORPHONE WAS NO HELP FOR PAIN. PAIN LEVEL IN ABDOMEN DECREASED FROM 03/01- TO 02/08. OXYCODONE WAS MORE HELPFUL. RIGHT UPPER QUADRANT PAIN HAS REMAINED PERSISTANT , GRABBING AND GNAWING. IS HAVING ISSUES WITH CONSTIPATION. ANKLE PAIN IS PRESENT BUT NOT PROMINENT THE ABDOMENAL PAIN. CURRENT MEDICATIONS TAKING ALLOPURINOL 100 MG TABLET 1 TABLET ORALLY TWICE A DAY TAKING LEVOTHYROXINE SODIUM 75 MCG TABLET 1 TABLET ON AN EMPTY STOMACH IN THE MORNING ORALLY ONCE A DAY TAKING OMEPRAZOLE 20 MG CAPSULE DELAYED RELEASE 1 CAPSULE ORALLY ONCE A DAY TAKING METFORMIN HCL 500 MG TABLET 1 TABLET WITH MEALS ORALLY TWICE A DAY TAKING SIMVASTATIN 40 MG TABLET 1 TABLET IN THE EVENING ORALLY ONCE A DAY TAKING HYDROXYZINE HCL 25 MG TABLET 1 TABLET NEEDED ORALLY EVERY 6 HRS TAKING CITALOPRAM HYDROBROMIDE 20 MG TABLET 1 TABLET ORALLY ONCE A DAY TAKING ASPIRIN ADULT LOW STRENGTH 81 MG TABLET DELAYED RELEASE 1 TABLET ORALLY ONCE A DAY TAKING GEMFIBROZIL 600 MG TABLET 1 TABLET ORALLY TWICE A DAY TAKING HYDROMORPHONE HCL 4 MG TABLET 1 TABLET NEEDED ORALLY EVERY 6 HRS PRN PAIN MDD=4 TAKING LISINOPRIL 20 MG TABLET 1 TAB ORALLY DAILY TAKING AMLODIPINE BESYLATE 5 MG TABLET 1 TAB ORALLY DAILY NOT-TAKING INDOMETHACIN 50 MG CAPSULE 1 CAPSULE WITH FOOD OR MILK ORALLY TWICE A DAY NOT-TAKING OXYCODONE HCL 15 MG TABLET 1 TABLET NEEDED ORALLY EVERY 6 HRS PRN PAIN MDD60 FOR 15 DAY SUPPLY NOT-TAKING ZOLOFT 100 MG TABLET 1 TABLET ORALLY ONCE A DAY DISCONTINUED LISINOPRIL MEDICATION LIST REVIEWED AND RECONCILED WITH THE PATIENT PAST MEDICAL HISTORY HYPERTENSION HISTORY OF STROKE DIABETES HYPOTHYROIDISM BILATERAL ANKLE PAIN LOW BACK PAIN ANXIETY RHEUMATOID ARTHRITIS GERD HYPERLIPIDEMIA DEPRESSION GOUT GALL STONES ALLERGIES NIACIN: RED/TINGLY: ALLERGY SOCIAL HISTORY GENERAL: TOBACCO USE ARE YOU A:CURRENT SMOKER HOW MANY CIGARETTES A DAY DO YOU SMOKE?6-10 PATIENT COUNSELED ON THE DANGERS OF TOBACCO USE AND URGED TO QUIT:04/10/2017 ARE YOU INTERESTED IN QUITTING?THINKING ABOUT QUITTING PREVIOUS QUIT ATTEMPTS?NO. COUNSELED THE PATIENT ON SMOKING CESSATION, EDUCATION [id number]/2017 ALCOHOL SCREENING DID YOU HAVE A DRINK CONTAINING ALCOHOL IN THE PAST YEAR?YES HOW OFTEN DID YOU HAVE A DRINK CONTAINING ALCOHOL IN THE PAST YEAR?TWO TO THREE TIMES PER WEEK (3 POINTS) HOW MANY DRINKS DID YOU HAVE ON A TYPICAL DAY WHEN YOU WERE DRINKING IN THE PAST YEAR?3 OR 4 (1 POINT) HOW OFTEN DID YOU HAVE SIX OR MORE DRINKS ON ONE OCCASION IN THE PAST YEAR?NEVER (0 POINTS) POINTS4 INTERPRETATIONPOSITIVE RECREATIONAL DRUG USE DRUG USE?YES HOW OFTEN AND HOW MUCH? MARIJUANA FOR PAIN. USING MARIJUANA ONCE A WEEK CAFFEINE CAFFEINE USE?NO MARITAL STATUS: SINGLE. 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 ADVANCE DIRECTIVES HEALTH CARE PROXY?NO WOULD YOU LIKE MORE INFORMATION?NO DO YOU HAVE A DNR?NO WOULD YOU LIKE MORE INFORMATION?NO LIVING WILL?NO WOULD YOU LIKE MORE INFORMATION?NO POWER OF DATA CONVERSION ANALYST?NO WOULD YOU LIKE MORE INFORMATION?NO REVIEW OF SYSTEMS REVIEWED BY: PROVIDER: VIJI VALDEZ . CONSTITUTIONAL: ANY CHANGE IN YOUR MEDICAL CONDITION? NO . CHILLS NO . FEVER NO . INFECTION: DO YOU HAVE NEW INFECTIONS? NO . DO YOU HAVE HISTORY OF MRSA? NO . MUSCULOSKELETAL: ANY NEW PATTERNS OF PAIN OR NUMBNESS? NO . GASTROENTEROLOGY: ANY NEW CHANGE IN BOWEL CONTROL? NO . GENITOURINARY: ANY NEW CHANGE IN BLADDER CONTROL? NO . IS THERE A CHANCE YOU COULD BE ? NO . HEMATOLOGY/LYMPH: DO YOU TAKE ANY BLOOD THINNERS? (FOR EXAMPLE- COUMADIN, PLAVIX, AGGRENOX, PLATEL, PRADAXA, OR XARELTO) NO . WHEN WAS YOUR LAST DOSE? DATE: TIME: . NEUROLOGY: HAVE YOU FALLEN IN THE PAST 6 MONTHS? NO . ANY NEW EXTREMITY NUMBNESS OR WEAKNESS? NO . CARDIOLOGY: DO YOU HAVE A PACEMAKER OR DEFIBRILLATOR? NO . RESPIRATORY: HAVE YOU BEEN SICK IN THE PAST WEEK? NO . FEVER NO . FLU LIKE SYMPTOMS? NO . COUGH NO . INTEGUMENTARY: DO YOU HAVE ANY RASHES OR OPEN SORES? NO . ALLERGIC/IMMUNO: ARE YOU ALLERGIC TO SHELLFISH OR IV DYE? NO . ANY NEW ALLERGIES? NO . PSYCHIATRIC: DO YOU HAVE THOUGHTS OF HURTING YOURSELF OR SOMEONE ELSE? NO . ARE YOU ABUSED, NEGLECTED, OR IN AN UNSAFE ENVIRONMENT? NO . ENDOCRINOLOGY: ARE YOU DIABETIC? YES . OTHER: DO YOU NEED ANY PRESCRIPTIONS? NO . IF YES, PLEASE LIST: ____ . ANY NEW PROBLEMS WITH YOUR MEDICATIONS? NO . WHEN DID YOU LAST EAT? ____ . WHEN DID YOU LAST DRINK? ____ . WHAT DID YOU LAST DRINK? ____ . NAME OF PERSON DRIVING YOU HOME? ____ . DO YOU HAVE ANY OTHER QUESTIONS OR CONCERNS NO . VITAL SIGNS WT 228.6 LBS, HT 58 IN, BMI 47.77 INDEX, BP 140/86 MM HG, HR 78 /MIN, RR 18 /MIN, TEMP 96.0 F, OXYGEN SAT % 96%, NA INITIALS TL 1349, REVIEWED BY: CS. EXAMINATION GENERAL EXAMINATION: GENERAL APPEARANCE:COLOR PALE. PSYCHALERT , ORIENTED X 3 , APPEARS VERY UNCOMFORTABLE. LUNGS:DECREASED AIR ENTRY AT BASES. ABD DISCOMFORT WITH TAKING DEEP BREATH. FEW SCATTERED WHEEZES. ABDOMEN:BOWEL SOUNDS PRESENT IN ALL QUADRANTS,GENERALLY QUIET. EXQUISTE TENDERNESS WITH PALPATION OVER RIGHT UPPER AND LOWER QUADRANTS. ABDOMEN DISTENDED.. JOINTS:BILATERAL, ANKLE , PAIN , SWELLING . LIMITED ROM WITH FLEX/EXTENSION. ASSESSMENTS RIGHT UPPER QUADRANT ABDOMINAL PAIN - R10.11 (PRIMARY) PAIN IN RIGHT ANKLE AND JOINTS OF RIGHT FOOT - M25.571 PAIN IN LEFT ANKLE AND JOINTS OF LEFT FOOT - M25.572 OTHER CHRONIC PAIN - G89.29 TREATMENT RIGHT UPPER QUADRANT ABDOMINAL PAIN CLINICAL NOTES: ISTOP REGISTRY REVIEWED AND DEMNOSTRATES COMPLLIANCE ( REF # [id number]). RECENT URINE TOXICOLOGY REVIEWED. NO UNAUTHORIZED MEDICATIONS. NO ILLICIT SUBSTANCES AND PRESCRIBED MEDICATIONS WERE PRESENT. , RISKS AND BENEFITS OF NARCOTIC/OPIOD MEDICATIONS WERE REVIEWED WITH PATIENT - THIS INCLUDES BUT IS NOT LIMITED TO RISK OF DEPENDANCE/DEVELOPMENT OF ADDICTION, MOOD DISTURBANCE AND DEPRESSION, OSTEOPOROSIS, HORMONAL AND LABIDAL CHANGES, RESPIRATORY DEPRESSION AND . PATIENT IS ADVISED NOT TO DRIVE WHILE ON THESE MEDICATIONS. PAIN IN RIGHT ANKLE AND JOINTS OF RIGHT FOOT STOP HYDROMORPHONE HCL TABLET, 4 MG, 1 TABLET NEEDED, ORALLY, EVERY 6 HRS PRN PAIN MDD=4 REFILL OXYCODONE HCL TABLET, 15 MG, 1 TABLET NEEDED, ORALLY, EVERY 4 HRS PRN PAIN MDD =6, 30 DAY(S), 180, REFILLS 0 NOTES: BRING HYDROMORPHONE TO NEXT VISIT. PROCEDURE CODES FA211 ESTABILISHED PATIENT [facility] CHARGE DISPOSITION & COMMUNICATION FOLLOW UP 1 MONTH (REASON: NKLE/BELLY) ELECTRONICALLY SIGNED BY BALDEMAR MACKENZIE ON 07/29/2017 AT 05:08 PM EST DISCLAIMER : THIS IS A VISIT SUMMARY EXTRACTED FROM THE [facility] CHART. IT IS NOT A COPY OF THE [facility] PROGRESS NOTE. ZURI
== END ==
LOC: M PAIN 13:45
PROVIDERS: ATTEND Nurse Practitioner Family
DX: R10.11 Right upper quadrant pain (principal); M25.571 Pain in right ankle and joints of right foot; M25.572 Pain in left ankle and joints of left foot; G89.29 Other chronic pain; I10 Essential (primary) hypertension; E11.9 Type 2 diabetes mellitus without complications; K21.9 Gastro-esophageal reflux disease without esophagitis; E03.9 Hypothyroidism, unspecified; F17.210 Nicotine dependence, cigarettes, uncomplicated; Z79.82 Long term (current) use of aspirin; Z79.84 Long term (current) use of oral hypoglycemic drugs; Z79.891 Long term (current) use of opiate analgesic; Z79.899 Other long term (current) drug therapy; Z88.8 Allergy status to other drugs, medicaments and biological substances

== ENCOUNTER → 2017-09-03 | Outpatient (CLI) | payer OTHER | LOC: M PAIN 13:45 | DX: R10.11 Right upper quadrant pain (principal); M25.571 Pain in right ankle and joints of right foot; M25.572 Pain in left ankle and joints of left foot; G89.29 Other chronic pain; I10 Essential (primary) hypertension; E11.9 Type 2 diabetes mellitus without complications; E03.9 Hypothyroidism, unspecified; K21.9 Gastro-esophageal reflux disease without esophagitis; E78.5 Hyperlipidemia, unspecified; F32.9 Major depressive disorder, single episode, unspecified; F41.9 Anxiety disorder, unspecified; Z79.82 Long term (current) use of aspirin; Z79.84 Long term (current) use of oral hypoglycemic drugs; Z79.899 Other long term (current) drug therapy; Z79.891 Long term (current) use of opiate analgesic; Z88.8 Allergy status to other drugs, medicaments and biological substances; Z86.79 Personal history of other diseases of the circulatory system | CPT/HCPCS: G0463 ==

== ENCOUNTER 2017-10-27 10:35 | Day surgery (SDC) | payer OTHER ==
[2017-10-27] MEDS: NS 1,000 ML IV (11:09)
[2017-10-27 11:11] LABS: BEDSIDE GLUCOSE 137 MG/DL (70-105)
[2017-10-27] MEDS ORDERED: LIDOCAINE 1% MDV 20ML VIAL As Ordered ×2 (11:50→11:52)
[2017-10-27] MEDS ORDERED: PROPOFOL 200 MG/20 ML VIAL As Ordered ×3 (11:50→12:00)
[2017-10-27] MEDS ORDERED: LIDOCAINE 2% INJ 100 MG/5 ML SDV (FOR ANES.) As Ordered (11:51)
== END 2017-10-27 13:02 | disposition home or self-care (01) ==
LOC: M OPP 10:35
DX: Z12.11 Encounter for screening for malignant neoplasm of colon (principal); D12.5 Benign neoplasm of sigmoid colon; K64.0 First degree hemorrhoids; K57.30 Diverticulosis of large intestine without perforation or abscess without bleeding; R10.13 Epigastric pain; K31.89 Other diseases of stomach and duodenum; R07.89 Other chest pain; I10 Essential (primary) hypertension; E78.5 Hyperlipidemia, unspecified; E11.9 Type 2 diabetes mellitus without complications; M10.9 Gout, unspecified; E03.9 Hypothyroidism, unspecified; K21.9 Gastro-esophageal reflux disease without esophagitis; M19.90 Unspecified osteoarthritis, unspecified site; M06.9 Rheumatoid arthritis, unspecified; F32.9 Major depressive disorder, single episode, unspecified; Z86.73 Personal history of transient ischemic attack (TIA), and cerebral infarction without residual deficits; F17.210 Nicotine dependence, cigarettes, uncomplicated; Z88.5 Allergy status to narcotic agent; Z88.8 Allergy status to other drugs, medicaments and biological substances; Z79.82 Long term (current) use of aspirin; Z79.899 Other long term (current) drug therapy; Z79.84 Long term (current) use of oral hypoglycemic drugs
CPT/HCPCS: 45385

== ENCOUNTER → 2017-11-13 | Outpatient (CLI) | payer OTHER | LOC: M PAIN 13:15 | DX: R10.11 Right upper quadrant pain (principal); M25.571 Pain in right ankle and joints of right foot; M25.572 Pain in left ankle and joints of left foot; G89.29 Other chronic pain; Z79.891 Long term (current) use of opiate analgesic; T40.2X5A Adverse effect of other opioids, initial encounter; K59.03 Drug induced constipation; I10 Essential (primary) hypertension; E11.9 Type 2 diabetes mellitus without complications; E03.9 Hypothyroidism, unspecified; F17.210 Nicotine dependence, cigarettes, uncomplicated; E78.5 Hyperlipidemia, unspecified; K21.9 Gastro-esophageal reflux disease without esophagitis; Z79.82 Long term (current) use of aspirin; Z79.84 Long term (current) use of oral hypoglycemic drugs; Z79.899 Other long term (current) drug therapy; Z88.8 Allergy status to other drugs, medicaments and biological substances | CPT/HCPCS: G0463 ==

== ENCOUNTER → 2018-02-05 | Outpatient (CLI) | payer OTHER | LOC: M PAIN 11:30 | DX: M25.571 Pain in right ankle and joints of right foot (principal); M25.572 Pain in left ankle and joints of left foot; G89.29 Other chronic pain; T40.2X5A Adverse effect of other opioids, initial encounter; K59.03 Drug induced constipation; I10 Essential (primary) hypertension; E11.9 Type 2 diabetes mellitus without complications; E03.9 Hypothyroidism, unspecified; F41.9 Anxiety disorder, unspecified; M06.9 Rheumatoid arthritis, unspecified; K21.9 Gastro-esophageal reflux disease without esophagitis; E78.5 Hyperlipidemia, unspecified; F32.9 Major depressive disorder, single episode, unspecified; F17.210 Nicotine dependence, cigarettes, uncomplicated; Z79.84 Long term (current) use of oral hypoglycemic drugs; Z79.82 Long term (current) use of aspirin; Z79.891 Long term (current) use of opiate analgesic; Z79.899 Other long term (current) drug therapy; Z88.8 Allergy status to other drugs, medicaments and biological substances; Z87.39 Personal history of other diseases of the musculoskeletal system and connective tissue; Z86.73 Personal history of transient ischemic attack (TIA), and cerebral infarction without residual deficits | CPT/HCPCS: G0463 ==

== ENCOUNTER → 2018-06-17 | Outpatient (CLI) | payer OTHER | LOC: M PAIN 14:00 | DX: M25.571 Pain in right ankle and joints of right foot (principal); M25.572 Pain in left ankle and joints of left foot; K59.03 Drug induced constipation; I10 Essential (primary) hypertension; E11.9 Type 2 diabetes mellitus without complications; E03.9 Hypothyroidism, unspecified; F41.9 Anxiety disorder, unspecified; M06.9 Rheumatoid arthritis, unspecified; K21.9 Gastro-esophageal reflux disease without esophagitis; E78.5 Hyperlipidemia, unspecified; F32.9 Major depressive disorder, single episode, unspecified; F17.210 Nicotine dependence, cigarettes, uncomplicated; E66.01 Morbid (severe) obesity due to excess calories; Z68.42 Body mass index [BMI] 45.0-49.9, adult; Z79.84 Long term (current) use of oral hypoglycemic drugs; Z79.82 Long term (current) use of aspirin; Z79.899 Other long term (current) drug therapy; Z88.8 Allergy status to other drugs, medicaments and biological substances; Z86.73 Personal history of transient ischemic attack (TIA), and cerebral infarction without residual deficits; Z87.39 Personal history of other diseases of the musculoskeletal system and connective tissue | CPT/HCPCS: G0463 ==

== ENCOUNTER 2018-10-27 23:26 | Emergency (ER) | payer OTHER ==
[~2018-10-27] VITALS: Ht 172.7 cm; Wt 104.3 kg
[~2018-10-27 23:26] MED LIST changes: +ALLO100T; +ASPI1TAB PO; -ESZO1TAB2 PO; +ESZO1TAB5 PO; +GEMF600T5; +LEVO75TA4; +METF500T13 PO; +OMEP20CA3 PO; +OXYC15TA76 PO; +ZOLO100T PO
[2018-10-27] MEDS ORDERED: HYDR50CA2 (23:39)
[2018-10-27] MEDS ORDERED: VIIB10TA (23:39)
[2018-10-28] MEDS ORDERED: oxyCODONE 5MG TAB PO ONE (01:30)
[2018-10-28 04:40] VITALS: BP 120/91
== END 2018-10-28 04:42 ==
LOC: M ED 23:26
DX: R45.851 Suicidal ideations (principal); Z72.89 Other problems related to lifestyle; F32.9 Major depressive disorder, single episode, unspecified; M54.9 Dorsalgia, unspecified; G89.29 Other chronic pain; F17.200 Nicotine dependence, unspecified, uncomplicated; Z88.5 Allergy status to narcotic agent; Z88.8 Allergy status to other drugs, medicaments and biological substances; Z79.899 Other long term (current) drug therapy

== ENCOUNTER → 2018-11-17 | Outpatient (CLI) | payer OTHER ==
[~2018-11-17] MED LIST changes: +HYDR50CA2; +VIIB10TA
--- NOTE | 2018-11-19 00:17 | ECWPNPC ---
PATIENT NAME: JANICE LAY : 1965 GENDER: MALE VISIT DATE: 11/17/2018 DISCHARGE DATE: 11/17/18 1536 VISIT LOCKED DATE TIME: PHYSICIAN: AIDEN DORSEY RESOURCE: AIDEN DORSEY REASON FOR APPOINTMENT 1. BACK/ANKLE/AB PT OF SW HISTORY OF PRESENT ILLNESS HISTORY OF PRESENT ILLNESS: PAIN THE PATIENT DESCRIBES THE PAINDURING THE LAST MONTH SEVERITY - PAIN SCORE OF5/10 53 YR OLD PATIENT WHO IS MANAGED FOR CHRONIC BILATERAL ANKLE PAIN AND LOWER BACK PAIN.HE IS HERE FOR A REVIEW.HE SAYS HE FEELS HE NEEDS AN INCREASE IN HIS OXYCODONE HE FEELS PAIN AFTER 2-3 HOURS.HE TAKES MAXIM DAILY DOSE OF 6 TABLETS.HIS PAIN SCALE FOR BACK IS 5/10PAIN SCORE FOR BOTH ANKLES 5/10.PATIENT WAS RELUCTANT TO REMOVE ANKLE BRACES FOR ME TO EXAMINE HIS ANKLES AND FEET. FALL RISK SCREENING: SCREENING : NO FALLS IN THE PAST YEAR. CURRENT MEDICATIONS TAKING COLACE 100 MG CAPSULE 1 CAPSULE ORALLY TWICE A DAY NEEDED FOR CONSTIPATION TAKING ALLOPURINOL 100 MG TABLET 1 TABLET ORALLY TWICE A DAY TAKING LEVOTHYROXINE SODIUM 75 MCG TABLET 1 TABLET ON AN EMPTY STOMACH IN THE MORNING ORALLY ONCE A DAY TAKING METFORMIN HCL 500 MG TABLET 1 TABLET WITH MEALS ORALLY TWICE A DAY TAKING SIMVASTATIN 40 MG TABLET 1 TABLET IN THE EVENING ORALLY ONCE A DAY TAKING HYDROXYZINE HCL 25 MG TABLET 1 TABLET NEEDED ORALLY EVERY 6 HRS TAKING ASPIRIN ADULT LOW STRENGTH 81 MG TABLET DELAYED RELEASE 1 TABLET ORALLY ONCE A DAY TAKING GEMFIBROZIL 600 MG TABLET 1 TABLET ORALLY TWICE A DAY TAKING QUNOL ULTRA COQ10 100-150 MG-UNIT CAPSULE ORALLY TAKING CITALOPRAM HYDROBROMIDE 40 MG TABLET 1 TAB ORALLY ONCE A DAY TAKING PANTOPRAZOLE SODIUM 40 MG TABLET DELAYED RELEASE 1 TABLET ORALLY ONCE A DAY TAKING AMITIZA 24 MCG CAPSULE 1 CAPSULE WITH FOOD ORALLY TWICE A DAY TAKING OXYCODONE HCL 15 MG TABLET 1 TABLET NEEDED ORALLY EVERY 4 HRS PRN PAIN MDD =6 NOT-TAKING OMEPRAZOLE 20 MG CAPSULE DELAYED RELEASE 1 CAPSULE ORALLY ONCE A DAY NOT-TAKING LISINOPRIL 20 MG TABLET 1 TAB ORALLY DAILY NOT-TAKING AMLODIPINE BESYLATE 5 MG TABLET 1 TAB ORALLY DAILY MEDICATION LIST REVIEWED AND RECONCILED WITH THE PATIENT PAST MEDICAL HISTORY HYPERTENSION HISTORY OF STROKE DIABETES HYPOTHYROIDISM BILATERAL ANKLE PAIN LOW BACK PAIN ANXIETY RHEUMATOID ARTHRITIS GERD HYPERLIPIDEMIA DEPRESSION GOUT GALL STONES ALLERGIES NIACIN: RED/TINGLY - ALLERGY SURGICAL HISTORY APPENDECTOMY 2010 CHOLECYSTECTOMY 04/21/17 FAMILY HISTORY FATHER: , DIAGNOSED WITH DIABETES, HYPERTENSION, HEART DISEASE, STROKE MOTHER: ALIVE, CANCER 4 BROTHER(S) , 1 SISTER(S) - HEALTHY. 1 SON(S) , 1 DAUGHTER(S) - HEALTHY. SOCIAL HISTORY GENERAL: TOBACCO USE ARE YOU A:CURRENT SMOKER ARE YOU INTERESTED IN QUITTING?NOT READY TO QUIT COUNSELED THE PATIENT ON SMOKING EFFECTS, EDUCATION [id number]/17/2018 HOW MANY CIGARETTES A DAY DO YOU SMOKE?6-10 PATIENT COUNSELED ON THE DANGERS OF TOBACCO USE AND URGED TO QUIT:06/17/2018 REMINDED OF NEED TO QUIT SMOKING / NOT INTERESTED AT THIS TIME LATEX QUESTIONNAIRE LATEX ALLERGY : HAVE YOU EVER DEVELOPED ANY TYPE OF REACTION AFTER HANDLING LATEX PRODUCTS SUCH RUBBER GLOVES, CONDOMS, DIAPHRAGMS, BALLOONS, SOCKS, OR UNDERWEAR?NO LATEX ALLERGY : HAVE YOU EVER DEVELOPED ANY TYPE OF REACTION DURING OR AFTER DENTAL APPOINTMENT, VAGINAL/RECTAL EXAMINATION, SURGICAL PROCEDURE, OR ANY OTHER EXPOSURE?NO LATEX RISK : HAVE YOU EVER HAD ANY DIFFICULTY BREATHING OR HIVES AFTER EATING OR HANDLING ANY FRUITS, OR VEGETABLES; SUCH KIWI, BANANAS, STONE FRUITS, OR CHESTNUTSNO LATEX RISK : DO YOU HAVE A PREVIOUS PERSONAL HISTORY OF MORE THAN NINE SURGERIES, SPINA BIFIDA, OR REPEATED CATHERTIZATIONS? NO LATEX RISK : ARE YOU FREQUENTLY EXPOSED TO LATEX PRODUCTS IN YOUR OCCUPATION?NO DATE ASKED : 11/17/2018 ALCOHOL SCREENING DID YOU HAVE A DRINK CONTAINING ALCOHOL IN THE PAST YEAR?YES HOW OFTEN DID YOU HAVE A DRINK CONTAINING ALCOHOL IN THE PAST YEAR?TWO TO THREE TIMES PER WEEK (3 POINTS) HOW MANY DRINKS DID YOU HAVE ON A TYPICAL DAY WHEN YOU WERE DRINKING IN THE PAST YEAR?3 OR 4 (1 POINT) HOW OFTEN DID YOU HAVE SIX OR MORE DRINKS ON ONE OCCASION IN THE PAST YEAR?NEVER (0 POINTS) POINTS4 INTERPRETATIONPOSITIVE RECREATIONAL DRUG USE DRUG USE?NO CAFFEINE CAFFEINE USE?NO ZOROASTRIANISM [id number] NONE LANGUAGE LANGUAGES SPOKEN:DIVEHI LEARNING BARRIERS / SPECIAL NEEDS CHANGE FROM LAST VISIT?NO BARRIERS TO LEARNING?NO HEARING IMPAIRED?NO VISION IMPAIRED?YES : GLASSES FOR READING COGNITIVELY IMPAIRED?NO READINESS TO LEARN?YES LEARNING PREFERENCES?NO LEARNING CAPABILITIES PRESENT?YES EMOTIONAL BARRIERS?NO SPECIAL DEVICES?YES :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 PAIN CLINIC PFS, CLERGY, PUBLIC HEALTH REFERRALS PFS REFERRAL NEEDED?NO CLERGY REFERRAL NEEDED?NO PUBLIC HEALTH REFERRAL NEEDED?NO WAS THE PROVIDER NOTIFIED OF ANY PERTINENT INFO?NO HAS THE PATIENT BEEN EDUCATED REGARDING HIS/HER PLAN OF CARE?YES HAS THE PATIENT BEEN EDUCATED REGARDING PAIN, THE RISK FOR PAIN, THE IMPORTANCE OF EFFECTIVE PAIN MANAGEMENT, AND THE PAIN ASSESSMENT PROCESS?YES ADVANCE DIRECTIVE ADVANCE DIRECTIVE DISCUSSED WITH PATIENT:YES PT DECLINES HCP INFO AND ASSISTANCE AT THIS TIME. 11/17/18 REVIEWED WITH PT 02/05/18 1226 BVREVIEWED WITH PATIENT 06/17/18 1422 JSREVIEWED WITH PT 11/17/18 1427 BV. HOSPITALIZATION/MAJOR DIAGNOSTIC PROCEDURE NO HOSPITALIZATION HISTORY. REVIEW OF SYSTEMS REVIEWED BY: PROVIDER: MARK . CONSTITUTIONAL: ANY CHANGE IN YOUR MEDICAL CONDITION? NO . CHILLS NO . FEVER NO . INFECTION: DO YOU HAVE NEW INFECTIONS? NO . DO YOU HAVE HISTORY OF MRSA? NO . MUSCULOSKELETAL: ANY NEW PATTERNS OF PAIN OR NUMBNESS? YES, PT COMPLAINS OF INCREASED INTENSITY OF PAIN OVER THE PAST COUPLE MONTHS . GASTROENTEROLOGY: ANY NEW CHANGE IN BOWEL CONTROL? NO . GENITOURINARY: ANY NEW CHANGE IN BLADDER CONTROL? NO . IS THERE A CHANCE YOU COULD BE ? NO . HEMATOLOGY/LYMPH: DO YOU TAKE ANY BLOOD THINNERS? (FOR EXAMPLE- COUMADIN, PLAVIX, AGGRENOX, PLATEL, PRADAXA, OR XARELTO) NO . WHEN WAS YOUR LAST DOSE? DATE: TIME: . NEUROLOGY: HAVE YOU FALLEN IN THE PAST 12 MONTHS? NO . ANY NEW EXTREMITY NUMBNESS OR WEAKNESS? NO . CARDIOLOGY: DO YOU HAVE A PACEMAKER OR DEFIBRILLATOR? NO . RESPIRATORY: HAVE YOU BEEN SICK IN THE PAST WEEK? NO . FEVER NO . FLU LIKE SYMPTOMS? NO . COUGH NO . INTEGUMENTARY: DO YOU HAVE ANY RASHES OR OPEN SORES? NO . ALLERGIC/IMMUNO: ARE YOU ALLERGIC TO IV DYE? NO . ANY NEW ALLERGIES? NO . PSYCHIATRIC: DO YOU HAVE THOUGHTS OF HURTING YOURSELF OR SOMEONE ELSE? NO . ARE YOU ABUSED, NEGLECTED, OR IN AN UNSAFE ENVIRONMENT? NO . ENDOCRINOLOGY: ARE YOU DIABETIC? YES, ON MEDICATION . OTHER: DO YOU NEED ANY PRESCRIPTIONS? NO . IF YES, PLEASE LIST: ____ . ANY NEW PROBLEMS WITH YOUR MEDICATIONS? NO . WHEN DID YOU LAST EAT? ____ . WHEN DID YOU LAST DRINK? ____ . WHAT DID YOU LAST DRINK? ____ . NAME OF PERSON DRIVING YOU HOME? ____ . DO YOU HAVE ANY OTHER QUESTIONS OR CONCERNS NO . VITAL SIGNS WT 227.6 LBS, HT 58 IN, BMI 47.56 INDEX, BP 130/80 MM HG, HR 88 /MIN, RR 18 /MIN, TEMP 95.6 F, OXYGEN SAT % 100%, NA INITIALS AW 1402, REVIEWED BY: BV. EXAMINATION GENERAL EXAMINATION: GENERAL APPEARANCE:NO ACUTE DISTRESS, WELL NOURISHED AND HYDRATED. PSYCHAPPROPRIATE MOOD AND AFFECT . LUNGS:CLEAR TO AUSCULTATION BILATERALLY, NO WHEEZES, RHONCHI, RALES. EXTREMITIES: NORMAL RANGE OF MOTION, NO EDEMA. NO TENDERNESS TO PALPATION PEDAL PULSES INTACT. ASSESSMENTS PAIN IN LEFT ANKLE AND JOINTS OF LEFT FOOT - M25.572 (PRIMARY) PAIN IN RIGHT ANKLE AND JOINTS OF RIGHT FOOT - M25.571 TREATMENT PAIN IN LEFT ANKLE AND JOINTS OF LEFT FOOT START PREGABALIN CAPSULE, 50 MG, 1 CAPSULE, ORALLY, TWICE A DAY, 30 DAYS, 60 CAPSULE, REFILLS 1 CLINICAL NOTES: ADVISED TO START LYRICA ONCE DAY FOR 1 WEEK, THEN INCREASE TO 2 TABS DAILY AFTER SECOND WEEK. REVIEW IN 6 WEEKS.ISTOP REGISTRY REVIEWED AND DEMONSTRATES COMPLLIANCE. (REF #[id number] ) BRINGS IN MEDICATIONS WHICH IS APPROPRIATE FOR WHAT WAS DISPENSED. RECENT URINE TOXICOLOGY REVIEWED. NO UNAUTHORIZED MEDICATIONS. NO ILLICIT SUBSTANCES AND PRESCRIBED MEDICATIONS WERE PRESENT. URINE TOX TODAY., [facility] NARCOTIC AGREEMENT WAS REVIEWED AND SIGNED TODAY BY THE PATIENT. SEE ATTACHED DOCUMENT FOR FULL DETAILS; SPECIFIC ISSUES WERE REVIEWED: 1) KEEP PAIN MEDS IN THEIR ORIGINAL BOTTLES AND ANY WEEKLY PLANNERS ARE TO BE BROUGHT TO THE PAIN CENTER AT EVERY VISIT. 2) THE PATIENT IS NOT TO INCREASE DOSING OR TIMING OF THEIR PAIN MEDICATION WITHOUT SPECIFIC DIRECTION OF THEIR PAIN CENTERPROVIDER (NOT ER OR OTHER PROVIDERS). 3) ALL PAIN MEDS ARE TO BE KEPT SECURED, IN A LOCKED BOX. 4) NO PAIN MEDS ARE TO BE SHARED WITH ANY OTHER PERSON FOR ANY REASON. 5) NO PAIN MEDS MAY BE TAKEN FROM ANY FRIENDS OR RELATIVES FOR ANY REASON 6) NO MEDS OR SUBSTANCES WHICH ARE NOT LEGAL ARE TO BE USED- NO MARIJUANA, NO COCAINE, AMPHETAMINES, HEROIN, OR OTHERS ARE EVER TO BE USED. 7)URINE TESTING IS DONE TO ACCOUNT FOR MEDS AND SUBSTANCES BEING TAKEN AND WILL BE DONE RANDOMLY., RISKS AND BENEFITS OF NARCOTIC/OPIOD MEDICATIONS WERE REVIEWED WITH PATIENT - THIS INCLUDES BUT IS NOT LIMITED TO RISK OF DEPENDANCE/DEVELOPMENT OF ADDICTION, MOOD DISTURBANCE AND DEPRESSION, OSTEOPOROSIS, HORMONAL AND LABIDAL CHANGES, RESPIRATORY DEPRESSION AND . PATIENT IS ADVISED NOT TO DRIVE OR DRINK ALCOHOL WHILE ON THESE MEDICATIONS. PREVENTIVE MEDICINE PAIN CLINIC TEACHING: MEDICATIONS PT GIVEN VERBAL EDUCATION ON STARTING LYRICA. PT DECLINES WRITTEN INFORMATION, STATING HE HAS BEEN ON LYRICA IN THE PAST. PT VERBALIZES UNDERSTANDING OF ALL EDUCATION. DELL HUNG 11/17/2018 3:42:04 PM > . PROCEDURE CODES FA211 ESTABILISHED PATIENT [facility] CHARGE DISPOSITION & COMMUNICATION FOLLOW UP 6 WEEKS ELECTRONICALLY SIGNED BY COURTNEY ROCHA ON 11/18/2018 AT 09:32 AM EDT DISCLAIMER : THIS IS A VISIT SUMMARY EXTRACTED FROM THE [employer] CHART. IT IS NOT A COPY OF THE [employer] PROGRESS NOTE. ZURI
== END ==
LOC: M PAIN 14:15
PROVIDERS: ATTEND Nurse Practitioner Family
DX: M25.572 Pain in left ankle and joints of left foot (principal); M25.571 Pain in right ankle and joints of right foot; G89.29 Other chronic pain; I10 Essential (primary) hypertension; Z86.73 Personal history of transient ischemic attack (TIA), and cerebral infarction without residual deficits; E11.9 Type 2 diabetes mellitus without complications; E03.9 Hypothyroidism, unspecified; Z86.59 Personal history of other mental and behavioral disorders; M06.9 Rheumatoid arthritis, unspecified; K21.9 Gastro-esophageal reflux disease without esophagitis; E78.5 Hyperlipidemia, unspecified; Z86.39 Personal history of other endocrine, nutritional and metabolic disease; F17.210 Nicotine dependence, cigarettes, uncomplicated; Z88.8 Allergy status to other drugs, medicaments and biological substances; E66.01 Morbid (severe) obesity due to excess calories; Z68.42 Body mass index [BMI] 45.0-49.9, adult; Z79.82 Long term (current) use of aspirin; Z79.84 Long term (current) use of oral hypoglycemic drugs; Z79.899 Other long term (current) drug therapy

== ENCOUNTER → 2018-12-10 | Outpatient (CLI) | payer OTHER ==
[~2018-12-10] MED LIST changes: -/ESOM40CA PO; -/FENO14TA PO; -ASPI1TAB PO; +ASPI81TA26 PO; +HYDR-2773 PO; -HYDR10TAB PO; +NEXI1CAP3 PO; +TRIC145T19 PO
--- NOTE | 2018-12-11 00:44 | ECWPNPC ---
PATIENT NAME: JANICE LAY : 1965 GENDER: MALE VISIT DATE: 12/10/2018 DISCHARGE DATE: 12/10/18 1610 VISIT LOCKED DATE TIME: PHYSICIAN: AIDEN DORSEY RESOURCE: AIDEN DORSEY REASON FOR APPOINTMENT 1. MEDICATIONS HISTORY OF PRESENT ILLNESS HISTORY OF PRESENT ILLNESS: PAIN THE PATIENT DESCRIBES THE PAINDURING THE LAST MONTH SEVERITY - PAIN SCORE OF7/10 LOCATIONSRIGHT LEG, LEFT LEG QUALITYACHING , BURNING 53 YR OLD MALE WITH BILATERAL ANKLE PAIN. WAS PRESCRINED LYRICA AT LAST VISIT BUT INSURANCE DID NOT COVER.HE IS ALSO COMPLAINING OF OCCASIONAL PAIN DOWN LEFT ARM WELL. FALL RISK SCREENING: SCREENING :NO FALLS REPORTED IN THE LAST YEAR CURRENT MEDICATIONS TAKING COLACE 100 MG CAPSULE 1 CAPSULE ORALLY TWICE A DAY NEEDED FOR CONSTIPATION TAKING ALLOPURINOL 100 MG TABLET 1 TABLET ORALLY TWICE A DAY TAKING LEVOTHYROXINE SODIUM 75 MCG TABLET 1 TABLET ON AN EMPTY STOMACH IN THE MORNING ORALLY ONCE A DAY TAKING METFORMIN HCL 500 MG TABLET 1 TABLET WITH MEALS ORALLY TWICE A DAY TAKING SIMVASTATIN 40 MG TABLET 1 TABLET IN THE EVENING ORALLY ONCE A DAY TAKING HYDROXYZINE HCL 25 MG TABLET 1 TABLET NEEDED ORALLY EVERY 6 HRS TAKING ASPIRIN ADULT LOW STRENGTH 81 MG TABLET DELAYED RELEASE 1 TABLET ORALLY ONCE A DAY TAKING GEMFIBROZIL 600 MG TABLET 1 TABLET ORALLY TWICE A DAY TAKING QUNOL ULTRA COQ10 100-150 MG-UNIT CAPSULE ORALLY TAKING CITALOPRAM HYDROBROMIDE 40 MG TABLET 1 TAB ORALLY ONCE A DAY TAKING PANTOPRAZOLE SODIUM 40 MG TABLET DELAYED RELEASE 1 TABLET ORALLY ONCE A DAY TAKING AMITIZA 24 MCG CAPSULE 1 CAPSULE WITH FOOD ORALLY TWICE A DAY TAKING OXYCODONE HCL 15 MG TABLET 1 TABLET NEEDED ORALLY EVERY 4 HRS PRN PAIN MDD =6 DISCONTINUED PREGABALIN 50 MG CAPSULE 1 CAPSULE ORALLY TWICE A DAY DISCONTINUED LYRICA 50 MG CAPSULE 1 CAPSULE ORALLY TWICE A DAY MDD2 DISCONTINUED OMEPRAZOLE 20 MG CAPSULE DELAYED RELEASE 1 CAPSULE ORALLY ONCE A DAY DISCONTINUED LISINOPRIL 20 MG TABLET 1 TAB ORALLY DAILY DISCONTINUED AMLODIPINE BESYLATE 5 MG TABLET 1 TAB ORALLY DAILY MEDICATION LIST REVIEWED AND RECONCILED WITH THE PATIENT PAST MEDICAL HISTORY HYPERTENSION HISTORY OF STROKE DIABETES HYPOTHYROIDISM BILATERAL ANKLE PAIN LOW BACK PAIN ANXIETY RHEUMATOID ARTHRITIS GERD HYPERLIPIDEMIA DEPRESSION GOUT GALL STONES OSTEOARTHRITIS ALLERGIES NIACIN: RED/TINGLY - ALLERGY SURGICAL HISTORY APPENDECTOMY 2010 CHOLECYSTECTOMY 04/21/17 FAMILY HISTORY FATHER: , DIAGNOSED WITH DIABETES, HYPERTENSION, HEART DISEASE, STROKE MOTHER: ALIVE, CANCER 4 BROTHER(S) , 1 SISTER(S) - HEALTHY. 1 SON(S) , 1 DAUGHTER(S) - HEALTHY. SOCIAL HISTORY GENERAL: TOBACCO USE ARE YOU A:CURRENT SMOKER ARE YOU INTERESTED IN QUITTING?NOT READY TO QUIT COUNSELED THE PATIENT ON SMOKING EFFECTS, EDUCATION LGBAYPWD14/17/2018 HOW MANY CIGARETTES A DAY DO YOU SMOKE?6-10 PATIENT COUNSELED ON THE DANGERS OF TOBACCO USE AND URGED TO QUIT:06/17/2018 REMINDED OF NEED TO QUIT SMOKING / NOT INTERESTED AT THIS TIME LATEX QUESTIONNAIRE LATEX ALLERGY : HAVE YOU EVER DEVELOPED ANY TYPE OF REACTION AFTER HANDLING LATEX PRODUCTS SUCH RUBBER GLOVES, CONDOMS, DIAPHRAGMS, BALLOONS, SOCKS, OR UNDERWEAR?NO LATEX ALLERGY : HAVE YOU EVER DEVELOPED ANY TYPE OF REACTION DURING OR AFTER DENTAL APPOINTMENT, VAGINAL/RECTAL EXAMINATION, SURGICAL PROCEDURE, OR ANY OTHER EXPOSURE?NO LATEX RISK : HAVE YOU EVER HAD ANY DIFFICULTY BREATHING OR HIVES AFTER EATING OR HANDLING ANY FRUITS, OR VEGETABLES; SUCH KIWI, BANANAS, STONE FRUITS, OR CHESTNUTSNO LATEX RISK : DO YOU HAVE A PREVIOUS PERSONAL HISTORY OF MORE THAN NINE SURGERIES, SPINA BIFIDA, OR REPEATED CATHERTIZATIONS? NO LATEX RISK : ARE YOU FREQUENTLY EXPOSED TO LATEX PRODUCTS IN YOUR OCCUPATION?NO DATE ASKED : 11/17/2018 ALCOHOL SCREENING DID YOU HAVE A DRINK CONTAINING ALCOHOL IN THE PAST YEAR?YES HOW OFTEN DID YOU HAVE A DRINK CONTAINING ALCOHOL IN THE PAST YEAR?TWO TO THREE TIMES PER WEEK (3 POINTS) HOW MANY DRINKS DID YOU HAVE ON A TYPICAL DAY WHEN YOU WERE DRINKING IN THE PAST YEAR?3 OR 4 (1 POINT) HOW OFTEN DID YOU HAVE SIX OR MORE DRINKS ON ONE OCCASION IN THE PAST YEAR?NEVER (0 POINTS) POINTS4 INTERPRETATIONPOSITIVE RECREATIONAL DRUG USE DRUG USE?NO CAFFEINE CAFFEINE USE?NO ANGLICAN [id number] NONE LANGUAGE LANGUAGES SPOKEN:MONGOLIAN LEARNING BARRIERS / SPECIAL NEEDS CHANGE FROM LAST VISIT?NO BARRIERS TO LEARNING?NO HEARING IMPAIRED?NO VISION IMPAIRED?YES : GLASSES FOR READING COGNITIVELY IMPAIRED?NO READINESS TO LEARN?YES LEARNING PREFERENCES?NO LEARNING CAPABILITIES PRESENT?YES EMOTIONAL BARRIERS?NO SPECIAL DEVICES?YES :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 MARITAL STATUS: SINGLE. OTHERS AT HOME: [place]. PAIN CLINIC PFS, CLERGY, PUBLIC HEALTH REFERRALS PFS REFERRAL NEEDED?NO CLERGY REFERRAL NEEDED?NO PUBLIC HEALTH REFERRAL NEEDED?NO WAS THE PROVIDER NOTIFIED OF ANY PERTINENT INFO?NO HAS THE PATIENT BEEN EDUCATED REGARDING HIS/HER PLAN OF CARE?YES HAS THE PATIENT BEEN EDUCATED REGARDING PAIN, THE RISK FOR PAIN, THE IMPORTANCE OF EFFECTIVE PAIN MANAGEMENT, AND THE PAIN ASSESSMENT PROCESS?YES ADVANCE DIRECTIVE ADVANCE DIRECTIVE DISCUSSED WITH PATIENT:YES PT DECLINES HCP INFO AND ASSISTANCE AT THIS TIME. 11/17/18 PT DECLINES HCP INFORMATION AT THIS TIME 12/10/18 REVIEWED WITH PT 02/05/18 1226 BVREVIEWED WITH PATIENT 06/17/18 1422 JSREVIEWED WITH PT 11/17/18 1427 BV. HOSPITALIZATION/MAJOR DIAGNOSTIC PROCEDURE NO HOSPITALIZATION HISTORY. REVIEW OF SYSTEMS REVIEWED BY: PROVIDER: MARK . CONSTITUTIONAL: ANY CHANGE IN YOUR MEDICAL CONDITION? NO . CHILLS NO . FEVER NO . INFECTION: DO YOU HAVE NEW INFECTIONS? NO . DO YOU HAVE HISTORY OF MRSA? NO . MUSCULOSKELETAL: ANY NEW PATTERNS OF PAIN OR NUMBNESS? NO . GASTROENTEROLOGY: ANY NEW CHANGE IN BOWEL CONTROL? NO . GENITOURINARY: ANY NEW CHANGE IN BLADDER CONTROL? NO . IS THERE A CHANCE YOU COULD BE ? NO . HEMATOLOGY/LYMPH: DO YOU TAKE ANY BLOOD THINNERS? (FOR EXAMPLE- COUMADIN, PLAVIX, AGGRENOX, PLATEL, PRADAXA, OR XARELTO) NO . WHEN WAS YOUR LAST DOSE? DATE: TIME: . NEUROLOGY: HAVE YOU FALLEN IN THE PAST 12 MONTHS? NO . ANY NEW EXTREMITY NUMBNESS OR WEAKNESS? NO . CARDIOLOGY: DO YOU HAVE A PACEMAKER OR DEFIBRILLATOR? NO . RESPIRATORY: HAVE YOU BEEN SICK IN THE PAST WEEK? NO . FEVER NO . FLU LIKE SYMPTOMS? NO . COUGH NO . INTEGUMENTARY: DO YOU HAVE ANY RASHES OR OPEN SORES? YES . ALLERGIC/IMMUNO: ARE YOU ALLERGIC TO IV DYE? NO . ANY NEW ALLERGIES? NO . PSYCHIATRIC: DO YOU HAVE THOUGHTS OF HURTING YOURSELF OR SOMEONE ELSE? NO . ARE YOU ABUSED, NEGLECTED, OR IN AN UNSAFE ENVIRONMENT? NO . ENDOCRINOLOGY: ARE YOU DIABETIC? YES . OTHER: DO YOU NEED ANY PRESCRIPTIONS? NO . IF YES, PLEASE LIST: ____ . ANY NEW PROBLEMS WITH YOUR MEDICATIONS? NO . WHEN DID YOU LAST EAT? ____ . WHEN DID YOU LAST DRINK? ____ . WHAT DID YOU LAST DRINK? ____ . NAME OF PERSON DRIVING YOU HOME? ____ . DO YOU HAVE ANY OTHER QUESTIONS OR CONCERNS NO . VITAL SIGNS WT 225.8 LBS, HT 58 IN, BMI 47.19 INDEX, BP 140/75 MM HG, HR 81 /MIN, RR 18 /MIN, TEMP 96.7 F, OXYGEN SAT % 96%, SAFE IN ENV? (Y/N) YES, NA INITIALS WV 15:12, REVIEWED BY: VD. EXAMINATION GENERAL EXAMINATION: GENERAL APPEARANCE:NO ACUTE DISTRESS, WELL NOURISHED AND HYDRATED. PSYCHAPPROPRIATE MOOD AND AFFECT . LUNGS:CLEAR TO AUSCULTATION BILATERALLY, NO WHEEZES, RHONCHI, RALES. HEART:NO MURMURS, REGULAR RATE AND RHYTHM. ASSESSMENTS PAIN IN LEFT ANKLE AND JOINTS OF LEFT FOOT - M25.572 (PRIMARY) PAIN IN RIGHT ANKLE AND JOINTS OF RIGHT FOOT - M25.571 TREATMENT PAIN IN LEFT ANKLE AND JOINTS OF LEFT FOOT START GABAPENTIN CAPSULE, 100 MG, 1 CAPSULE, ORALLY, THREE TIMES A DAY, 30 DAY(S), 90, REFILLS 1 CLINICAL NOTES: START TAKIMG GABAPENTIN 1 TAB AT NIGHT FOR 4 DAYS, THEN INCREASE TO TIWCE ADAY FOR ANOTHER 3 DAYS, AND INCREASE TO 3X ADAY IN THE SECOND WEEK., ISTOP REGISTRY REVIEWED AND DEMONSTRATES COMPLLIANCE. (REF # [id number] ) BRINGS IN MEDICATIONS WHICH IS APPROPRIATE FOR WHAT WAS DISPENSED. RECENT URINE TOXICOLOGY REVIEWED. NO UNAUTHORIZED MEDICATIONS. NO ILLICIT SUBSTANCES AND PRESCRIBED MEDICATIONS WERE PRESENT. PROCEDURE CODES FA211 ESTABILISHED PATIENT [facility] CHARGE DISPOSITION & COMMUNICATION FOLLOW UP 4 WEEKS ELECTRONICALLY SIGNED BY COURTNEY ROCHA ON 12/10/2018 AT 04:57 PM EDT ADDENDUM: 12/10/2018 05:05 PM AIDEN DORSEY > PATIENT WAS ADVISED TO SEE HIS PCP FOR LEFT ARM PAIN. I ADVISE IM HE MAY NEED A CARDIAC WORK UP. ALSO PATIENT FELT HIS PAIN SEEMED LIKE " BONE PAIN". 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 HE SAID THE LAST TIME HE SAW A SPECIALIST, IT WAS 8 YEARS AGO. DISCLAIMER : THIS IS A VISIT SUMMARY EXTRACTED FROM THE [employer] CHART. IT IS NOT A COPY OF THE [employer] PROGRESS NOTE. ZURI
== END ==
LOC: M PAIN 14:00
PROVIDERS: ATTEND Nurse Practitioner Family
DX: M25.572 Pain in left ankle and joints of left foot (principal); M25.571 Pain in right ankle and joints of right foot; I10 Essential (primary) hypertension; Z86.73 Personal history of transient ischemic attack (TIA), and cerebral infarction without residual deficits; E11.9 Type 2 diabetes mellitus without complications; E03.9 Hypothyroidism, unspecified; Z86.59 Personal history of other mental and behavioral disorders; M06.9 Rheumatoid arthritis, unspecified; K21.9 Gastro-esophageal reflux disease without esophagitis; Z86.79 Personal history of other diseases of the circulatory system; M19.90 Unspecified osteoarthritis, unspecified site; F17.210 Nicotine dependence, cigarettes, uncomplicated; Z88.8 Allergy status to other drugs, medicaments and biological substances; E66.01 Morbid (severe) obesity due to excess calories; Z68.42 Body mass index [BMI] 45.0-49.9, adult; Z79.82 Long term (current) use of aspirin; Z79.84 Long term (current) use of oral hypoglycemic drugs; Z79.899 Other long term (current) drug therapy

== ENCOUNTER → 2019-01-12 | Outpatient (CLI) | payer OTHER ==
[~2019-01-12] MED LIST changes: -INDO50CA PO; +INDO50CA11 PO
--- NOTE | 2019-01-30 01:01 | ECWPNPC ---
PATIENT NAME: JANICE LAY : 1965 GENDER: MALE VISIT DATE: 01/12/2019 DISCHARGE DATE: 01/12/19 1419 VISIT LOCKED DATE TIME: PHYSICIAN: PRAMOD COLE RESOURCE: PRAMOD COLE REASON FOR APPOINTMENT 1. MEDICATION HISTORY OF PRESENT ILLNESS HISTORY OF PRESENT ILLNESS: HERE FOR F/U OF CHRONIC BACK AND ANKLE PAIN.HAS BEEN FOLLOWING AT OUR CLINIC FOR SEVERAL YEARS.HAS BEEN USING OXYCODONE 15MG 6 TAB PER DAY FOR SEVERAL YEARS.THIS IS MY FIRST TIME EVALUATING HIM HERE AT THE PAIN CENTER.HAD A DISCUSSION ABOUT HIGH DOSE NARCOTIC PAIN MEDICATIONS.INFORMED HIM THAT IT WOULD BE OUR JAIL GOAL TO REDUCE AMOUNT OF OXYCODONE PER DAY AND LOOK AT ALTERNATIVES TO NARCOTIC PAIN MEDICATION OR DOING AN OPIOD ROTATION TO REDUCE DAILY OPIOD EXPOSURE.HE WAS DEFENSIVE AT FIRST THEN HE BECAME MORE RECEPTIVE. PAIN THE PATIENT DESCRIBES THE PAIN... FALL RISK SCREENING: SCREENING :NO FALLS REPORTED IN THE LAST YEAR CURRENT MEDICATIONS TAKING ALLOPURINOL 100 MG TABLET 1 TABLET ORALLY TWICE A DAY TAKING LEVOTHYROXINE SODIUM 75 MCG TABLET 1 TABLET ON AN EMPTY STOMACH IN THE MORNING ORALLY ONCE A DAY TAKING METFORMIN HCL 500 MG TABLET 1 TABLET WITH MEALS ORALLY TWICE A DAY TAKING SIMVASTATIN 40 MG TABLET 1 TABLET IN THE EVENING ORALLY ONCE A DAY TAKING HYDROXYZINE HCL 25 MG TABLET 1 TABLET NEEDED ORALLY EVERY 6 HRS TAKING ASPIRIN ADULT LOW STRENGTH 81 MG TABLET DELAYED RELEASE 1 TABLET ORALLY ONCE A DAY TAKING GEMFIBROZIL 600 MG TABLET 1 TABLET ORALLY TWICE A DAY TAKING QUNOL ULTRA COQ10 100-150 MG-UNIT CAPSULE ORALLY TAKING CITALOPRAM HYDROBROMIDE 40 MG TABLET 1 TAB ORALLY ONCE A DAY TAKING PANTOPRAZOLE SODIUM 40 MG TABLET DELAYED RELEASE 1 TABLET ORALLY ONCE A DAY TAKING AMITIZA 24 MCG CAPSULE 1 CAPSULE WITH FOOD ORALLY TWICE A DAY TAKING GABAPENTIN 100 MG CAPSULE 1 CAPSULE ORALLY THREE TIMES A DAY TAKING OXYCODONE HCL 15 MG TABLET 1 TABLET NEEDED ORALLY EVERY 4 HRS PRN PAIN MDD =6 TAKING COLACE 100 MG CAPSULE 1 CAPSULE ORALLY TWICE A DAY NEEDED FOR CONSTIPATION MEDICATION LIST REVIEWED AND RECONCILED WITH THE PATIENT PAST MEDICAL HISTORY HYPERTENSION HISTORY OF STROKE DIABETES HYPOTHYROIDISM BILATERAL ANKLE PAIN LOW BACK PAIN ANXIETY RHEUMATOID ARTHRITIS GERD HYPERLIPIDEMIA DEPRESSION GOUT GALL STONES OSTEOARTHRITIS ALLERGIES NIACIN: RED/TINGLY - ALLERGY SURGICAL HISTORY APPENDECTOMY 2010 CHOLECYSTECTOMY 04/21/17 FAMILY HISTORY FATHER: , DIAGNOSED WITH DIABETES, HYPERTENSION, HEART DISEASE, STROKE MOTHER: ALIVE, CANCER 4 BROTHER(S) , 1 SISTER(S) - HEALTHY. 1 SON(S) , 1 DAUGHTER(S) - HEALTHY. SOCIAL HISTORY GENERAL: TOBACCO USE ARE YOU A:CURRENT SMOKER ARE YOU INTERESTED IN QUITTING?NOT READY TO QUIT COUNSELED THE PATIENT ON SMOKING EFFECTS, EDUCATION DEOYLLYW23/17/2018 HOW MANY CIGARETTES A DAY DO YOU SMOKE?6-10 PATIENT COUNSELED ON THE DANGERS OF TOBACCO USE AND URGED TO QUIT:06/17/2018 REMINDED OF NEED TO QUIT SMOKING / NOT INTERESTED AT THIS TIME OTHERS AT HOME: [place]. DIET: REGULAR. 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?NO PAIN CLINIC PFS, CLERGY, PUBLIC HEALTH REFERRALS PFS REFERRAL NEEDED?NO CLERGY REFERRAL NEEDED?NO PUBLIC HEALTH REFERRAL NEEDED?NO WAS THE PROVIDER NOTIFIED OF ANY PERTINENT INFO?NO HAS THE PATIENT BEEN EDUCATED REGARDING HIS/HER PLAN OF CARE?YES HAS THE PATIENT BEEN EDUCATED REGARDING PAIN, THE RISK FOR PAIN, THE IMPORTANCE OF EFFECTIVE PAIN MANAGEMENT, AND THE PAIN ASSESSMENT PROCESS?YES LATEX QUESTIONNAIRE LATEX ALLERGY : HAVE YOU EVER DEVELOPED ANY TYPE OF REACTION AFTER HANDLING LATEX PRODUCTS SUCH RUBBER GLOVES, CONDOMS, DIAPHRAGMS, BALLOONS, SOCKS, OR UNDERWEAR?NO LATEX ALLERGY : HAVE YOU EVER DEVELOPED ANY TYPE OF REACTION DURING OR AFTER DENTAL APPOINTMENT, VAGINAL/RECTAL EXAMINATION, SURGICAL PROCEDURE, OR ANY OTHER EXPOSURE?NO LATEX RISK : HAVE YOU EVER HAD ANY DIFFICULTY BREATHING OR HIVES AFTER EATING OR HANDLING ANY FRUITS, OR VEGETABLES; SUCH KIWI, BANANAS, STONE FRUITS, OR CHESTNUTSNO LATEX RISK : DO YOU HAVE A PREVIOUS PERSONAL HISTORY OF MORE THAN NINE SURGERIES, SPINA BIFIDA, OR REPEATED CATHERTIZATIONS? NO LATEX RISK : ARE YOU FREQUENTLY EXPOSED TO LATEX PRODUCTS IN YOUR OCCUPATION?NO DATE ASKED : 01/12/2019 CAFFEINE CAFFEINE USE?NO ADVANCE DIRECTIVE ADVANCE DIRECTIVE DISCUSSED WITH PATIENT:YES PT DECLINES HCP INFO AND ASSISTANCE AT THIS TIME. 11/17/18 PT DECLINES HCP INFORMATION AT THIS TIME 01/12/19 ROMAN CATHOLIC [id number] NONE MARITAL STATUS: SINGLE. ALCOHOL SCREENING DID YOU HAVE A DRINK CONTAINING ALCOHOL IN THE PAST YEAR?YES HOW OFTEN DID YOU HAVE A DRINK CONTAINING ALCOHOL IN THE PAST YEAR?TWO TO THREE TIMES PER WEEK (3 POINTS) HOW MANY DRINKS DID YOU HAVE ON A TYPICAL DAY WHEN YOU WERE DRINKING IN THE PAST YEAR?3 OR 4 (1 POINT) HOW OFTEN DID YOU HAVE SIX OR MORE DRINKS ON ONE OCCASION IN THE PAST YEAR?NEVER (0 POINTS) POINTS4 INTERPRETATIONPOSITIVE REVIEWED WITH PT 02/05/18 1226 BVREVIEWED WITH PATIENT 06/17/18 1422 JSREVIEWED WITH PT 11/17/18 1427 BVREVIEWED WITH PT 01/12/19 1348 BV. HOSPITALIZATION/MAJOR DIAGNOSTIC PROCEDURE NO HOSPITALIZATION HISTORY. REVIEW OF SYSTEMS REVIEWED BY: PROVIDER: PRAMOD VALDEZ . CONSTITUTIONAL: ANY CHANGE IN YOUR MEDICAL CONDITION? NO . CHILLS NO . FEVER NO . INFECTION: DO YOU HAVE NEW INFECTIONS? NO . DO YOU HAVE HISTORY OF MRSA? NO . MUSCULOSKELETAL: ANY NEW PATTERNS OF PAIN OR NUMBNESS? NO . GASTROENTEROLOGY: ANY NEW CHANGE IN BOWEL CONTROL? NO . GENITOURINARY: ANY NEW CHANGE IN BLADDER CONTROL? NO . IS THERE A CHANCE YOU COULD BE ? NO . HEMATOLOGY/LYMPH: DO YOU TAKE ANY BLOOD THINNERS? (FOR EXAMPLE- COUMADIN, PLAVIX, AGGRENOX, PLATEL, PRADAXA, OR XARELTO) NO . WHEN WAS YOUR LAST DOSE? DATE: TIME: . NEUROLOGY: HAVE YOU FALLEN IN THE PAST 12 MONTHS? NO . ANY NEW EXTREMITY NUMBNESS OR WEAKNESS? NO . CARDIOLOGY: DO YOU HAVE A PACEMAKER OR DEFIBRILLATOR? NO . RESPIRATORY: HAVE YOU BEEN SICK IN THE PAST WEEK? NO . FEVER NO . FLU LIKE SYMPTOMS? NO . COUGH NO . INTEGUMENTARY: DO YOU HAVE ANY RASHES OR OPEN SORES? NO . ALLERGIC/IMMUNO: ARE YOU ALLERGIC TO IV DYE? NO . ANY NEW ALLERGIES? NO . PSYCHIATRIC: DO YOU HAVE THOUGHTS OF HURTING YOURSELF OR SOMEONE ELSE? NO . ARE YOU ABUSED, NEGLECTED, OR IN AN UNSAFE ENVIRONMENT? NO . ENDOCRINOLOGY: ARE YOU DIABETIC? NO . OTHER: DO YOU NEED ANY PRESCRIPTIONS? NO . IF YES, PLEASE LIST: ____ . ANY NEW PROBLEMS WITH YOUR MEDICATIONS? NO . WHEN DID YOU LAST EAT? ____ . WHEN DID YOU LAST DRINK? ____ . WHAT DID YOU LAST DRINK? ____ . NAME OF PERSON DRIVING YOU HOME? ____ . DO YOU HAVE ANY OTHER QUESTIONS OR CONCERNS NO . VITAL SIGNS WT 233.6 LBS, HT 58 IN, BMI 48.82 INDEX, BP 138/80 MM HG, HR 90 /MIN, RR 18 /MIN, TEMP 96.5 F, OXYGEN SAT % 96, NA INITIALS MP 1340, REVIEWED BY: BV. EXAMINATION GENERAL EXAMINATION: GENERAL APPEARANCE:AWAKE,ALERT ,PLEAASANT . PSYCHAFFECT NORMAL . LUNGS:LUNG WALLACE ARE CLEAR TO AUSCULTATION BILATERALLY. GOOD MOVEMENT OF AIR . HEART:S1, S2 IN A REGULAR RATE AND RHYTHM. NO SIGNIFICANT MURMURS, RUBS OR GALLOPS NOTED . ASSESSMENTS PAIN IN LEFT ANKLE AND JOINTS OF LEFT FOOT - M25.572 (PRIMARY) PAIN IN RIGHT ANKLE AND JOINTS OF RIGHT FOOT - M25.571 TREATMENT PAIN IN LEFT ANKLE AND JOINTS OF LEFT FOOT REFILL OXYCODONE HCL TABLET, 15 MG, 1 TABLET NEEDED, ORALLY, EVERY 4 HRS PRN PAIN MDD =6, 30 DAY(S), 180, REFILLS 0 STOP GABAPENTIN CAPSULE, 100 MG, 1 CAPSULE, ORALLY, THREE TIMES A DAY CONTINUE COLACE CAPSULE, 100 MG, 1 CAPSULE, ORALLY, TWICE A DAY NEEDED FOR CONSTIPATION, 30 DAY(S), 60, REFILLS 5 NOTES: ISTOP REGISTRY REVIEWED AND DEMONSTRATES COMPLLIANCE. (REF #[id number] )FORGOT MEDICATION RECENT URINE TOXICOLOGY REVIEWED. NO UNAUTHORIZED MEDICATIONS. NO ILLICIT SUBSTANCES AND PRESCRIBED MEDICATIONS WERE PRESENT. , RISKS AND BENEFITS OF NARCOTIC/OPIOD MEDICATIONS WERE REVIEWED WITH PATIENT - THIS INCLUDES BUT IS NOT LIMITED TO RISK OF DEPENDANCE/DEVELOPMENT OF ADDICTION, MOOD DISTURBANCE AND DEPRESSION, OSTEOPOROSIS, HORMONAL AND LABIDAL CHANGES, RESPIRATORY DEPRESSION AND . PATIENT IS ADVISED NOT TO DRIVE OR DRINK ALCOHOL WHILE ON THESE MEDICATIONS. PROCEDURE CODES FA211 ESTABILISHED PATIENT [facility] CHARGE DISPOSITION & COMMUNICATION FOLLOW UP 4-6WK ELECTRONICALLY SIGNED BY COURTNEY SOARES ON 01/28/2019 AT 09:02 AM EDT DISCLAIMER : THIS IS A VISIT SUMMARY EXTRACTED FROM THE [employer] CHART. IT IS NOT A COPY OF THE [employer] PROGRESS NOTE. ZURI
== END ==
LOC: M PAIN 13:30
PROVIDERS: ATTEND Nurse Practitioner Family
DX: M25.572 Pain in left ankle and joints of left foot (principal); M25.571 Pain in right ankle and joints of right foot; M54.9 Dorsalgia, unspecified; G89.29 Other chronic pain; I10 Essential (primary) hypertension; E11.9 Type 2 diabetes mellitus without complications; E03.9 Hypothyroidism, unspecified; Z86.59 Personal history of other mental and behavioral disorders; M06.9 Rheumatoid arthritis, unspecified; K21.9 Gastro-esophageal reflux disease without esophagitis; E78.5 Hyperlipidemia, unspecified; F17.210 Nicotine dependence, cigarettes, uncomplicated; Z88.8 Allergy status to other drugs, medicaments and biological substances; E66.01 Morbid (severe) obesity due to excess calories; Z68.42 Body mass index [BMI] 45.0-49.9, adult; Z79.84 Long term (current) use of oral hypoglycemic drugs; Z79.82 Long term (current) use of aspirin; Z79.899 Other long term (current) drug therapy

== ENCOUNTER 2019-03-22 11:20 | Observation (INO) | payer OTHER ==
[~2019-03-22] VITALS: Ht 172.7 cm; Wt 100.0 kg
[~2019-03-22 11:20] MED LIST changes: -HYDR50CA2; +HYDR50CA2 PO; -OMEP20CA3 PO; +OMEP20CA4 PO
[2019-03-22 12:43] LABS: BASO % 0.4 % (0.0-1.0); EOS # 0.2 10^3/uL (0.0-0.50); EOS % 1.7 % (0.0-3.0); HEMATOCRIT 47.6 % (42.0-52.0); HEMOGLOBIN 15.5 g/dl (13.5-17.5); LYMPH # 3.4 10^3/uL (1.5-4.5); LYMPH % 30.1 % (24.0-44.0); MEAN CORPUSCULAR HEMOGLOBIN 24.5 pg (27.0-33.0); MEAN CORPUSCULAR HGB CONC 32.6 g/dl (32.0-36.5); MEAN CORPUSCULAR VOLUME 75.3 fl (80.0-96.0); MONO # 0.9 10^3/uL (0.0-0.8); NEUTROPHILS # 6.8 10^3/uL (1.8-7.7); NEUTROPHILS % 59.2 % (36.0-66.0); PLATELET COUNT, AUTOMATED 207 10^3/uL (150-450); RED BLOOD COUNT 6.32 10^6/uL (4.30-6.10); WHITE BLOOD COUNT 11.4 10^3/uL (4.0-10.0)
[2019-03-22] MEDS ORDERED: ONDANSETRON 4MG/2ML VIAL (J2405) IV ONE (12:45)
[2019-03-22] MEDS ORDERED: NS 1,000 ML IV ONE ×2 (12:45→16:15)
[2019-03-22] MEDS ORDERED: fentaNYL 100 MCG/2 ML INJECTION (J3010) IV ONE ×3 (12:45→16:45)
--- NOTE | 2019-03-22 13:26 | REP ---
Portable chest, 12:25 p.m., single AP view with the patient upright: Comparison is 10/22/2011. The lung duvall are clear. The cardiac size is normal. The juana, mediastinum, and skeletal structures are unremarkable. Impression: Negative portable chest. There is no interval change. Electronically Signed by Narayan Kirkpatrick MD 03/22/2019 01:17 P
[2019-03-22 14:30] LABS: ACETAMINOPHEN LEVEL < 2.0 UG/ML (10.0-30.0); ALBUMIN 3.2 GM/DL (3.2-5.2); ALT/SGPT 24 U/L (12-78); BILIRUBIN,DIRECT < 0.1 MG/DL (0.0-0.2); BILIRUBIN,TOTAL 0.2 MG/DL (0.2-1.0); BLOOD UREA NITROGEN 11 MG/DL (7-18); CALCIUM LEVEL 8.5 MG/DL (8.5-10.1); CARBON DIOXIDE LEVEL 25 MEQ/L (21-32); CHLORIDE LEVEL 109 MEQ/L (98-107); CPK CREATINE PHOSPHOKINASE 43 U/L (39-308); ETHYL ALCOHOL (ETHANOL) 0.058 % (0.000-0.010); GLOMERULAR FILTRATION RATE > 60.0 (>56); GLUCOSE, FASTING 155 MG/DL (70-100); POTASSIUM SERUM 4.2 MEQ/L (3.5-5.1); SALICYLATE LEVEL 7.8 MG/DL (5.0-30.0); SODIUM LEVEL 142 MEQ/L (136-145); THYROID STIMULATING HORMONE 0.623 uIU/ML (0.358-3.740); TOTAL PROTEIN 6.2 GM/DL (6.4-8.2)
[2019-03-22 14:33] LABS: AMPHETAMINES LEVEL URINE NEGATIVE (NEGATIVE); BARBITURATES URINE NEGATIVE (NEGATIVE); BENZODIAZEPINES URINE POSITIVE (NEGATIVE); CANNABINOIDS URINE POSITIVE (NEGATIVE); COCAINE METABOLITE URINE NEGATIVE (NEGATIVE); METHADONE URINE NEGATIVE (NEGATIVE); OPIATES URINE POSITIVE (NEGATIVE); PHENCYCLIDINE URINE NEGATIVE (NEGATIVE)
[2019-03-22] MEDS ORDERED: GI COCKTAIL 50ML BTL(HYOSCYAMINE/MAALOX/LIDOCAINE VISCOUS)(1:3:1) PO ONE (14:45)
[2019-03-22] MEDS ORDERED: PANTOPRAZOLE 40MG INJ (PROTONIX) (C9113) IV ONE (14:45)
[2019-03-22] MEDS ORDERED: ISOVUE-370 76% 100ML VIAL (Q9967) As Ordered ONE (14:48)
[2019-03-22] MEDS: fentaNYL 100 MCG/2 ML INJECTION (J3010) IV PRN ×2 (14:59→16:06)
[2019-03-22 15:12] LABS: LIPASE 662 U/L (73-393)
[2019-03-22] MEDS ORDERED: FLOM0.4C39 PO (16:11)
[2019-03-22] MEDS ORDERED: PROP40TA62 PO (16:11)
[2019-03-22] MEDS ORDERED: METF-839 PO (16:11)
[2019-03-22] MEDS ORDERED: ECOT81TA5 PO (16:11)
[2019-03-22] MEDS ORDERED: VIIB40TA PO (16:11)
[2019-03-22] MEDS ORDERED: LORazepam 2 MG TAB PO PRN (18:15)
[2019-03-22] MEDS ORDERED: PROMETHAZINE INJ 25 MG/ML VIAL (J2550) IV PRN (18:15)
[2019-03-22] MEDS ORDERED: THIAMINE 100 MG TAB PO ONE (19:00)
[2019-03-22] MEDS ORDERED: MOM 30ML SUSPENSION UDC PO PRN (19:00)
[2019-03-22] MEDS ORDERED: ACETAMINOPHEN TAB 650MG DOSE (2X325MG) PO PRN (19:00)
--- NOTE | 2019-03-22 19:34 | REP ---
REASON: Chest pain. COMPARISON: None. CONTRAST: 100 mL Isovue-370. There is excellent visualization of the pulmonary arterial vasculature. There is no focal filling defects present that would be considered consistent with acute pulmonary emboli. There is no mediastinal or hilar adenopathy. There are no pleural or pericardial effusions. Evaluation of the lung duvall shows no abnormal nodules, masses, or opacities. Evaluation of the osseous structures showed them to be within normal limits. IMPRESSION: No acute disease. Electronically Signed by Paul Banerjee DO 03/22/2019 07:42 P
--- NOTE | 2019-03-22 19:48 | REP ---
REASON FOR EXAM: Pain. PRIORS: None. CONTRAST: 100 mL Isovue-370. The patient is status-post cholecystectomy. The liver, spleen, pancreas, adrenal glands, and kidneys are within normal limits. The abdominal aorta and paraaortic regions are within normal limits. There is descending colon diverticulosis. The bowel loops and their mesenteries are otherwise unremarkable. Surgical clips are seen in the right lower quadrant likely secondary to previous appendectomy. No free fluid or free air is seen in the abdomen. There is no evidence of an intraabdominal mass or adenopathy. CT PELVIS: There is sigmoid colon diverticulosis. The bowel loops are otherwise unremarkable. There is no free fluid or free air. There is no mass or adenopathy. IMPRESSION; Colon diverticulosis but no evidence of diverticulitis. Electronically Signed by Paul Banerjee DO 03/22/2019 07:52 P
--- NOTE | 2019-03-22 20:05 | ECGEPIP ---
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
[2019-03-22] MEDS: METHADONE 5 MG TAB (S0109) PO SCH (20:25)
[2019-03-22] MEDS: PROPRANOLOL 20 MG TAB PO SCH (21:00)
[2019-03-22 21:09] VITALS: BP 116/75
[2019-03-22] MEDS: NS 1,000 ML IV SCH (21:35)
[2019-03-22] MEDS: hydrOXYzine 50 MG TAB PO PRN (21:35)
--- NOTE | 2019-03-22 21:46 | HPEPDOC ---
[facility] Medical History & Physical Date of Admission Mar 22, 2019 Date of Service: Mar 22, 2019 Attending Physician: ANITA GUERRERO MD History and Physical CHIEF COMPLAINT: Opioid drug withdrawal HISTORY OF PRESENT ILLNESS: Kobe is a 53-year-old male with pertinent past medical history of Alcohol abuse, depression, CVA (which she described as "mini strokes"), rheumatoid arthritis, osteoarthritis, and diabetes, who presented to the emergency department today by ambulance with the chief compla ints of active opioid drug withdrawal and major depression. He states that he ran out of his oxycodone medication 2 days ago. He has had 10 out of 10 epigastric abdominal pain that radiated to his back bilaterally in a belt-like pattern. This epigastric abdominal pain actually started one week ago and was improving, but has gotten significantly worse in the last 2 days since his oxycodone medication ran out. Once the pain got too intense, Kobe called the police and was subsequently picked up via ambulance/EMS. Kobe, who has been chronically depressed, has had an especially intense bout of depression recently seeing as one brother, his mother, and another brother have all in the past 8 months or so. He has had a lack of desire to do anything. At this time, he denies any suicidal ideation or homicidal ideation. He takes 15 mg of oxycodone 6 times a day and was prescribed this by Jenn Lo, a now retired specialist with [facility] pain management, for chronic back and bilateral ankle pain. As he was feeling very shaky and nervous he had a double shot of Vodka today before coming to the hospital. He claims that before today his previous drink was 3 weeks. ago. Kobe denies any sick contacts, recent illnesses or recent travel. The only recent change in his medications was he was started on Flomax a few weeks ago. In the ED, the Kobe was given a total of 250 mg of fentanyl. Fentanyl was dosed with three, 50 mg administrations, followed by a 100 mg administration. Kobe also underwent an EKG which showed normal sinus rhythm and was similar to his previous EKG (from 04/19/2015). Patient will be admitted to the hospitalist service for supportive care and monitoring of his status. PAST MEDICAL HISTORY: 1. Major depressive disorder. 2. Chronic opioid use. 3. Rheumatoid arthritis 4. Osteoarthritis. 5. GERD. 6. BPH 7. history of CVA. 8. DM 2 9. Gout 10. hypothyroid PAST SURGICAL HISTORY: 1. Laparoscopic cholecystectomy (2-3 years ago). 2. Laparoscopic appendectomy (about 3 years ago). SOCIAL HISTORY: Resides in: Patient lives in his own home and lives alone. Children:. Patient has one daughter (and 3 grandchildren) Employment: Patient is on disability for chronic back and ankle pain Tobacco use:. Patient has smoked one pack a day of cigarettes for the last 30 y ears ETOH:. Patient states he occasionally drinks alcohol. When his pain medication isn't quite covering his "nerves." Patient states he'll take 3 "small sips of vodka." Illicit drug use: Occasional marijuana use FAMILY HISTORY: Mother: Siblings: 2 brothers , both early deaths Unexpected deaths due to medical reasons: 2 brothers ALLERGIES: Please see below. REVIEW OF SYSTEMS: CONSTITUTIONAL:. Denies fever, chills, night sweats, diaphoresis. HEENT:. Denies headache, dizziness, feeling lightheaded year pain, tinnitus, I pain, vision changes. CARDIOVASCULAR:. Denies chest pressure. Denies chest pain, denies palpitations. RESPIRATORY:. Denies dyspnea. Denies cough. GASTROINTESTINAL:. Endorses abdominal pain that was once 10 out of 10, but since receiving treatment in the emergency department is now 3 out of 10. Endorses chronic constipation, likely secondary to chronic opioid use. Although patient states he did have a bowel movement yesterday. Patient had nausea previously, which is since resolved after receiving a GI cocktail. Denies vomiting. Denies diarrhea GENITOURINARY: Denies dysuria, denies burning sensation during urination. MUSCULOSKELETAL: Endorses bilateral ankle pain, endorses back pain centered in the lower thoracic and upper lumbars over the spine and paraspinally. NEUROLOGICAL: Denies numbness or paresthesias. PSYCHIATRIC:. Endorses depression. Denies suicidal ideations or homicidal ideations at this time. HOME MEDICATIONS: Please see below. PHYSICAL EXAMINATION: VITAL SIGNS: Please see below GENERAL APPEARANCE: Alert man who appears his stated age and is a bit unkempt with scraggly boyer. Patient is calm, answering questions appropriately and is interactive. He is lying upright in bed. HEENT: Poor dentition. Dry mucous membranes. Extraocular motion intact. Pupils equal, round, reactive to light and accommodation. No mydriasis and very slight miosis.. Neck is supple. No cervical lymphadenopathy CARDIOVASCULAR:. Bradycardic rate, regular rhythm, S1, S2 normal. No rubs, no clicks, no gallops, no murmurs. LUNGS:. Clear to auscultation bilaterally, anteriorly and posteriorly. No audible wheezes, crackles or rhonchi. Adequate respiratory effort ABDOMEN:. Hyperactive bowel sounds. No palpable masses. No hepatosplenomegaly. Mildly tender to deep palpation in the right upper quadrant, epigastric area, and right lower quadrant; nontender to light palpation in all abdominal quadrants. MUSCULOSKELETAL: 5 out of 5 muscle strength testing upper extremity, lower extremity bilaterally. EXTREMITIES:. Lower extremity edema bilaterally, 2+ radial and posterior tibial pulses bilaterally. NEUROLOGICAL:. Alert and oriented 3. Cranial nerves III through XII grossly intact. Sensation to light touch intact upper extremity and lower extremity bilaterally. PSYCHIATRIC: Depressed melancholy mood yet appropriately interactive. LABORATORY DATA: See below. IMAGING: None thus far MICROBIOLOGY: Please see below. ASSESSMENT & PLAN: 1. Opioid withdrawal -Patient received three, 50 mg and one, 100 mg doses of fentanyl -Patient given two, 5 mg PO doses daily of methadone per current guidelines for active opioid withdrawal -Continue to monitor patient's status for worsening signs of acute opioid withdrawal. Patient is also on one-on-one supervision for depression and possible suicidal ideations. 2.Alcohol dependence and withdrawal -Patient put on CIWA protocol and as a result will receive thiamine, folic acid and multivitamins PO. -We are maintaining hydration for the patient via IV normal saline -Patient also able to administer when necessary, lorazepam 2 mg -Patient to receive antinausea medication as he was nauseous on presentation, which resolved with GI cocktail -CBC and CMP ordered 2. Anxiety and depression. Expressed as having suicidal thoughts to staff in ED and the EMS Continue with one-on-one supervision of patient -Continue with patient's home hydroxyzine 3. History of strokes -Continue with patient's home 81 mg aspirin dose 4. Chronic musculoskeletal pain of bilateral ankles and thoracolumbar spine -Patient received a total of 350 mg of fentanyl today as well as 5 mg twice a day of methadone. In addition, patient is receiving 650 mg of Tylenol 5. BPH -Continue with patient's home Flomax 6. DM II Metformin stopped. now sugas are controlled. If needed with start Lispro -Continue to monitor patient's mental status as well as serum glucose levels 7. DVT prophylaxis -Patient receiving 40 mg of daily subcutaneous Lovenox 8.GOut 9.Hypothyroid 10: diverticulosis. Vital Signs Vital Signs Date Time Temp Pulse Resp B/P (MAP) Pulse Ox O2 Delivery O2 Flow Rate FiO2 03/22/19 19:33 18 03/22/19 19:04 56 121/70 (87) 99 Room Air 03/22/19 17:19 97.9 Laboratory Data Labs 24H Laboratory Tests 2 03/22/19 12:24: Immature Granulocyte % (Auto) 0.6, White Blood Count 11.4H, Red Blood Count 6.32H, Hemoglobin 15.5, Hematocrit 47.6, Mean Corpuscular Volume 75.3L, Mean Corpuscular Hemoglobin 24.5L, Mean Corpuscular Hemoglobin Concent 32.6, Red Cell Distribution Width 19.0H, Platelet Count 207, Neutrophils (%) (Auto) 59.2, Lymphocytes (%) (Auto) 30.1, Monocytes (%) (Auto) 8.0H, Eosinophils (%) (Auto) 1.7, Basophils (%) (Auto) 0.4, Neutrophils # (Auto) 6.8, Lymphocytes # (Auto) 3.4, Monocytes # (Auto) 0.9H, Eosinophils # (Auto) 0.2, Basophils # (Auto) 0.0, Nucleated Red Blood Cells % (auto) 0.0 03/22/19 13:35: Anion Gap 8, Glomerular Filtration Rate > 60.0, Calcium Level 8.5, Aspartate Amino Transf (AST/SGOT) 15, Alanine Aminotransferase (ALT/SGPT) 24, Alkaline Phosphatase 67, Total Bilirubin 0.2, Direct Bilirubin < 0.1, Total Creatine Kinase 43, Total Protein 6.2L, Albumin 3.2, Albumin/Globulin Ratio 1.07, Lipase 662H, Thyroid Stimulating Hormone (TSH) 0.623, Salicylates Level 7.8, Acetaminophen Level < 2.0L, Ethyl Alcohol Level 0.058H 03/22/19 14:04: Urine Amphetamines Screen NEGATIVE, Urine Benzodiazepines Screen POSITIVEH, Urine Opiates Screen POSITIVEH, Urine Methadone Screen NEGATIVE, Urine Barbiturates Screen NEGATIVE, Urine Phencyclidine Screen NEGATIVE, Urine Cocaine Metabolite Screen NEGATIVE, Urine Cannabinoids Screen POSITIVEH CBC/BMP Laboratory Tests 03/22/19 12:24 Red Blood Count 6.32 H, Mean Corpuscular Volume 75.3 L, Mean Corpuscular Hemoglobin 24.5 L, Mean Corpuscular Hemoglobin Concent 32.6, Red Cell Distribution Width 19.0 H, Neutrophils (%) (Auto) 59.2, Lymphocytes (%) (Auto) 30.1, Monocytes (%) (Auto) 8.0 H, Eosinophils (%) (Auto) 1.7, Basophils (%) (Auto) 0.4, Neutrophils # (Auto) 6.8, Lymphocytes # (Auto) 3.4, Monocytes # (Auto) 0.9 H, Eosinophils # (Auto) 0.2, Basophils # (Auto) 0.0 03/22/19 13:35 Home Medications Scheduled Aspirin (Ecotrin) 81 Mg Tablet.dr, 81 MG PO DAILY Metformin HCl (Metformin HCl) 500 Mg Tablet, 500 MG PO BID Propranolol HCl (Propranolol HCl) 40 Mg Tablet, 40 MG PO BID Tamsulosin HCl (Flomax) 0.4 Mg Capsule, 0.4 MG PO DAILY Vilazodone HCl (Viibryd) 40 Mg Tablet, 40 MG PO DAILY Scheduled PRN Hydroxyzine Pamoate (Hydroxyzine Pamoate) 50 Mg Cap, 100 MG PO TID PRN for ANXIETY Oxycodone Hcl (Oxycodone HCl) 15 Mg Tab, 15 MG PO Q4H PRN for PAIN Allergies Coded Allergies: Ahmpyaj-Rxr-Ymi Reductase Inhibitor (Verified Allergy, Severe, FACIAL REDNESS AND TINGLING, 03/22/19) niacin (Verified Adverse Reaction, Intermediate, CHEST PAIN AND FLUSHING, 03/22/19) hydrocodone (Verified Adverse Reaction, Mild, GI UPSET, 03/22/19) prednisone (Verified Adverse Reaction, Mild, MOOD CHANGE, 03/22/19) A-FIB/CHADSVASC A-FIB History Current/History of A-Fib/PAF?: No Current PO Anticoag Therapy: Yes Attending Note Attending Note I performed a history and physical examination and discussed the management with the resident and medical student. I reviewed the medical student's note and agree with the documented findings and plan of care. AZUL DIAMOND PGY-1 Mar 22, 2019 21:46 ANITA GUERRERO MD Mar 23, 2019 00:27
[2019-03-22 22:00] VITALS: BP 116/75
[2019-03-23] VITALS (10 sets, daily range): BP systolic 117–169; BP diastolic 76–89
[2019-03-23] MEDS: NS 1,000 ML IV SCH ×2 (04:12→10:52)
[2019-03-23 06:20] LABS: HEMATOCRIT 41.3 % (42.0-52.0); MEAN CORPUSCULAR HEMOGLOBIN 24.3 pg (27.0-33.0); MEAN CORPUSCULAR HGB CONC 31.5 g/dl (32.0-36.5); MEAN CORPUSCULAR VOLUME 77.2 fl (80.0-96.0); PLATELET COUNT, AUTOMATED 128 10^3/uL (150-450); RED BLOOD COUNT 5.35 10^6/uL (4.30-6.10); WHITE BLOOD COUNT 8.9 10^3/uL (4.0-10.0)
[2019-03-23 06:50] LABS: ALBUMIN 2.8 GM/DL (3.2-5.2); ALT/SGPT 20 U/L (12-78); BILIRUBIN,TOTAL 0.5 MG/DL (0.2-1.0); BLOOD UREA NITROGEN 13 MG/DL (7-18); CALCIUM LEVEL 7.5 MG/DL (8.5-10.1); CARBON DIOXIDE LEVEL 27 MEQ/L (21-32); CHLORIDE LEVEL 111 MEQ/L (98-107); CREATININE FOR GFR 1.01 MG/DL (0.70-1.30); GLOMERULAR FILTRATION RATE > 60.0 (>56); GLUCOSE, FASTING 95 MG/DL (70-100); MAGNESIUM LEVEL 1.8 MG/DL (1.8-2.4); POTASSIUM SERUM 4.1 MEQ/L (3.5-5.1); SODIUM LEVEL 142 MEQ/L (136-145); TOTAL PROTEIN 5.5 GM/DL (6.4-8.2)
[2019-03-23] MEDS: FOLIC ACID 1 MG TAB PO SCH (08:01)
[2019-03-23] MEDS: ENOXAPARIN 40 MG/0.4 ML SYRINGE (J1650) SC SCH (08:01)
[2019-03-23] MEDS: METHADONE 5 MG TAB (S0109) PO SCH (08:01)
[2019-03-23] MEDS: ASPIRIN 81 MG ENTERIC TAB PO SCH (08:01)
[2019-03-23] MEDS: THIAMINE 100 MG TAB PO SCH ×2 (08:01→20:49)
[2019-03-23] MEDS: TAMSULOSIN 0.4 MG CAP PO SCH (08:01)
[2019-03-23] MEDS: MULTIVITAMINS/MINERALS THERAP 1 TAB PO SCH (08:01)
[2019-03-23] MEDS: PROPRANOLOL 20 MG TAB PO SCH ×3 (08:03→20:50)
--- NOTE | 2019-03-23 08:42 | IPNPDOC ---
Subjective Date Seen The patient was seen on 03/23/19. Subjective Chief Complaint/HPI Kobe was seen and examined this morning while lying upright in bed. He states that his abdominal pain which was epigastriclocated radiating to the back has significantly improved from yesterday. He states he is still in significant lower back and bilateral ankle pain. He states he was able to eat and drink this morning without any issues and also sleep a little bit overnight. He denies any current suicidal ideations or homicidal ideations. When asked about his mood, he states that he is angry, more so than depressed because he does not feel is musculoskeletal back and bilateral ankle pain is being adequately addressed. When asked about being seen by psychiatry, he was amenable to it. General: Denies: Chills Constitutional: Denies: Fever ENT: Denies: Head Aches Pulmonary: Denies: Dyspnea, Cough Cardiovascular: Denies: Chest Pain, Palpitations Gastrointestinal: Reports: Constipation (.Patient has not had bowel movement since admittance and states that he struggles with constipation); Denies: Nausea, Vomiting, Abdominal Pain, Diarrhea Genitourinary: Denies: Dysuria Musculoskeletal: Reports: Back Pain (mid lower back), Foot Pain (, bilateral ankle pain) Psych: Reports: Depression (. Present but not as significant as current anger), Anger (mild; due to pain threshold not being met); Denies: Thoughts of Self Harm, Thoughts of Harming Other Objective Physical Examination General Exam: Positive: Alert, Cooperative, No Acute Distress Eye Exam: Positive: PERRLA, EOMI; Negative: Sclera icteric, Ptosis Neck Exam: Positive: Supple; Negative: thyromegaly Chest Exam: Positive: Clear to auscultation; Negative: Rhonchi Heart Exam: Positive: Bradycardic, Regular Rhythm, Normal S1, Normal S2 Abdomen Exam: Positive: Normal bowel sounds, Soft; Negative: Tenderness, Mass Extremity Exam: Positive: Normal pulses (, 2+ radial and posterior tibial p ulses bilaterally), Tenderness (. Tenderness to palpation of distal lower extremity feet and ankles bilaterally), Swelling (. Mild swelling of the left ankle as compared to the right); Negative: Clubbing, Cyanosis Skin Exam: Positive: Nl turgor and temperature Neuro Exam: Positive: Strength at 5/5 X4 ext, Sensation Intact (to light touch upper extremity bilaterally) Psych Exam: Positive: Mental status NL, Oriented x 3 Assessment /Plan Assessment 1. Opioid withdrawal -Patient received three, 50 mg and one, 100 mg doses of fentanyl -Restarted on lower dose of oxycodone . Dose reduced from 15 tid to 10 tid. -Continue to monitor patient's status for worsening signs of acute opioid withdrawal. Patient is also on one-on-one supervision for depression and possible suicidal ideations. 2.Alcohol dependence and withdrawal -Patient put on CIWA protocol and as a result will receive thiamine, folic acid and multivitamins PO. ativan. -Patient to receive antinausea medication as he was nauseous on presentation, which resolved with GI cocktail -CBC and CMP ordered 2. Anxiety and depression. -Patient denies suicidal ideation or homicidal ideation on visit today. Patient welcomes opportunity to meet with psychiatrist. -Hospitalist team spoke with Dr. Caldera (psychiatry), who has agreed to see and evaluate the patient -Expressed recent suicidal thoughts to staff in ED and the EMS . When asked Continue with one-on-one supervision of patient -Continue with patient's home hydroxyzine 3. History of strokes -Continue with patient's home 81 mg aspirin dose 4. Chronic musculoskeletal pain of bilateral ankles and thoracolumbar spine -Patient received a total of 350 mg of fentanyl yesterday, and is receiving 5 mg twice a day of methadone as well. In addition, patient is receiving 650 mg of Tylenol 5. BPH -Continue with patient's home Flomax 6. DM II Metformin stopped. His sugars are now controlled - - dropping from 207 to 128 fasting. If needed, lispro can be started -Continue to monitor patient's mental status as well as serum glucose levels 7. DVT prophylaxis -Patient receiving 40 mg of daily subcutaneous Lovenox 8.Gout 9.Hypothyroid 10: diverticulosis. Plan/VTE VTE Prophylaxis Ordered?: Yes VS, I&O, 24H, Fishbone Vital Signs/I&O Vital Signs Date Time Temp Pulse Resp B/P (MAP) Pulse Ox O2 Delivery O2 Flow Rate FiO2 03/23/19 08:19 58 124/78 03/23/19 06:00 96.9 18 97 03/22/19 19:04 Room Air I&O- Last 24 Hours up to 6 AM 03/23/19 05:59 Intake Total 1375 ml Output Total 0 ml Balance 1375 ml Laboratory Data 24H LABS Laboratory Tests 2 03/22/19 12:24: Immature Granulocyte % (Auto) 0.6, White Blood Count 11.4H, Red Blood Count 6.32H, Hemoglobin 15.5, Hematocrit 47.6, Mean Corpuscular Volume 75.3L, Mean Corpuscular Hemoglobin 24.5L, Mean Corpuscular Hemoglobin Concent 32.6, Red Cell Distribution Width 19.0H, Platelet Count 207, Neutrophils (%) (Auto) 59.2, Lymphocytes (%) (Auto) 30.1, Monocytes (%) (Auto) 8.0H, Eosinophils (%) (Auto) 1.7, Basophils (%) (Auto) 0.4, Neutrophils # (Auto) 6.8, Lymphocytes # (Auto) 3.4, Monocytes # (Auto) 0.9H, Eosinophils # (Auto) 0.2, Basophils # (Auto) 0.0, Nucleated Red Blood Cells % (auto) 0.0 03/22/19 13:35: Anion Gap 8, Glomerular Filtration Rate > 60.0, Calcium Level 8.5, Aspartate Amino Transf (AST/SGOT) 15, Alanine Aminotransferase (ALT/SGPT) 24, Alkaline Phosphatase 67, Total Bilirubin 0.2, Direct Bilirubin < 0.1, Total Creatine Kinase 43, Total Protein 6.2L, Albumin 3.2, Albumin/Globulin Ratio 1.07, Lipase 662H, Thyroid Stimulating Hormone (TSH) 0.623, Salicylates Level 7.8, Acetam inophen Level < 2.0L, Ethyl Alcohol Level 0.058H 03/22/19 14:04: Urine Amphetamines Screen NEGATIVE, Urine Benzodiazepines Screen POSITIVEH, Urine Opiates Screen POSITIVEH, Urine Methadone Screen NEGATIVE, Urine Barbiturates Screen NEGATIVE, Urine Phencyclidine Screen NEGATIVE, Urine Cocaine Metabolite Screen NEGATIVE, Urine Cannabinoids Screen POSITIVEH 03/22/19 21:09: Bedside Glucose (Misc Panel) 125H 03/23/19 05:50: Nucleated Red Blood Cells % (auto) 0.0, Anion Gap 4L, Glomerular Filtration Rate > 60.0, Blood Urea Nitrogen 13, Creatinine 1.01, Sodium Level 142, Potassium Level 4.1, Chloride Level 111H, Carbon Dioxide Level 27, Calcium Level 7.5L, Aspartate Amino Transf (AST/SGOT) 10, Alanine Aminotransferase (ALT/SGPT) 20, Al kaline Phosphatase 56, Total Bilirubin 0.5#, Total Protein 5.5L, Albumin 2.8L, Magnesium Level 1.8, Albumin/Globulin Ratio 1.04 CBC/BMP Laboratory Tests 03/22/19 12:24 Red Blood Count 6.32 H, Mean Corpuscular Volume 75.3 L, Mean Corpuscular Hemoglobin 24.5 L, Mean Corpuscular Hemoglobin Concent 32.6, Red Cell Distribution Width 19.0 H, Neutrophils (%) (Auto) 59.2, Lymphocytes (%) (Auto) 30.1, Monocytes (%) (Auto) 8.0 H, Eosinophils (%) (Auto) 1.7, Basophils (%) (Auto) 0.4, Neutrophils # (Auto) 6.8, Lymphocytes # (Auto) 3.4, Monocytes # (Auto) 0.9 H, Eosinophils # (Auto) 0.2, Basophils # (Auto) 0.0 03/22/19 13:35 03/23/19 05:50 Red Blood Count 5.35, Mean Corpuscular Volume 77.2 L, Mean Corpuscular Hemoglobin 24.3 L, Mean Corpuscular Hemoglobin Concent 31.5 L, Red Cell Distribution Width 18.9 H, Calcium Level 7.5 L, Aspartate Amino Transf (AST/ SGOT) 10, Alanine Aminotransferase (ALT/SGPT) 20, Alkaline Phosphatase 56, Total Bilirubin 0.5 #, Total Protein 5.5 L, Albumin 2.8 L Attending Note Attending Note have personally seen and examined the patient this am. I agree with the finding and the plan of care as documented above in the resident's note. AZUL DIAMOND PGY-1 Mar 23, 2019 08:42 ANITA GUERRERO MD Mar 23, 2019 17:17
[2019-03-23] MEDS: hydrOXYzine 50 MG TAB PO PRN (15:57)
[2019-03-23] MEDS: oxyCODONE 5MG TAB PO PRN (15:57)
[2019-03-24] MEDS: hydrOXYzine 50 MG TAB PO PRN ×2 (00:01→09:00)
[2019-03-24] MEDS: oxyCODONE 5MG TAB PO PRN ×2 (00:01→08:59)
[2019-03-24 02:00] VITALS: BP 146/61
[2019-03-24 05:58] LABS: HEMATOCRIT 39.8 % (42.0-52.0); HEMOGLOBIN 12.8 g/dl (13.5-17.5); MEAN CORPUSCULAR HEMOGLOBIN 24.6 pg (27.0-33.0); MEAN CORPUSCULAR HGB CONC 32.2 g/dl (32.0-36.5); MEAN CORPUSCULAR VOLUME 76.4 fl (80.0-96.0); PLATELET COUNT, AUTOMATED 128 10^3/uL (150-450); RED BLOOD COUNT 5.21 10^6/uL (4.30-6.10); WHITE BLOOD COUNT 7.7 10^3/uL (4.0-10.0)
[2019-03-24 06:00] VITALS: BP 161/87
[2019-03-24 06:17] LABS: BLOOD UREA NITROGEN 13 MG/DL (7-18); CARBON DIOXIDE LEVEL 28 MEQ/L (21-32); CHLORIDE LEVEL 106 MEQ/L (98-107); CREATININE FOR GFR 1.03 MG/DL (0.70-1.30); GLOMERULAR FILTRATION RATE > 60.0 (>56); GLUCOSE, FASTING 105 MG/DL (70-100); MAGNESIUM LEVEL 2.2 MG/DL (1.8-2.4); SODIUM LEVEL 138 MEQ/L (136-145)
[2019-03-24] MEDS: MULTIVITAMINS/MINERALS THERAP 1 TAB PO SCH (08:51)
[2019-03-24] MEDS: FOLIC ACID 1 MG TAB PO SCH (08:51)
[2019-03-24] MEDS: TAMSULOSIN 0.4 MG CAP PO SCH (08:51)
[2019-03-24] MEDS: ASPIRIN 81 MG ENTERIC TAB PO SCH (08:52)
[2019-03-24] MEDS: THIAMINE 100 MG TAB PO SCH (08:52)
[2019-03-24] MEDS: ENOXAPARIN 40 MG/0.4 ML SYRINGE (J1650) SC SCH (08:52)
[2019-03-24] MEDS: PROPRANOLOL 20 MG TAB PO SCH (09:00)
[2019-03-24 10:00] VITALS: BP 158/88
[2019-03-24] MEDS ORDERED: FOLI1TAB11 PO (11:17)
[2019-03-24] MEDS ORDERED: THIA100TA PO (11:17)
[2019-03-24] MEDS ORDERED: VITMTA PO (11:17)
--- NOTE | 2019-03-24 15:34 | MHCR ---
DATE OF CONSULTATION: 03/23/2019 CHIEF COMPLAINT: Feels depressed. SUBJECTIVE: He is 53 years old. He turns 54 in a few days. He is admitted by internal medicine. He had come in, in pain and apparently had run out of his oxycodone about 2 days short of when he was supposed to. Chart is reviewed. Patient is interviewed. I have been asked to see him by the hospitalist to make an assessment regarding his emotional state, as he had also indicated at some point that he had thought of hurting himself. He has a history of psychiatric difficulties and chronic pain. Has been hospitalized on a few occasions. The last time he was hospitalized here was 4 years ago; and a few month ago, in October, was sent to the [facility], as there were no beds here at the time, presumably. He did not mention that hospitalization when we spoke, however. He is seen at the pain clinic. Sees them once a month. He is on oxycodone. He takes it regularly, and according to the [employer] System for Tracking Over-Prescribing (I-STOP) registry, was last prescribed them last month, 02/23/2019. Should have run out in a couple of days. He, in fact, ran out 2 days earlier. Says is not quite sure how that happened. Does not think the he uses them excessively. Says when he ran out, was going through withdrawal and was in pain. Says had pain in the abdomen. Came to the emergency room, was treated, and then admitted. They were concerned he was going through withdrawal from the opiates as well. Says they were giving him analgesics, which were not effective, and was finally admitted. Says has had withdrawal symptoms in the past. Finds them very uncomfortable and did not want to repeat that. Says was asked whether he had thought of hurting himself in the past, and he answered in the affirmative. Says he has had such thoughts off and on but nothing consistent. Says has had these thoughts over the last few months as well, as he has had many losses, including his mother whom he says of an accidental overdose, a brother soon afterward, and then yet another brother after that, all in the space of the last few months. He was living with his mother and a brother. The brother . The patient lived at the same placed and is now on his own. Says is not isolated. Has friends come over and, in fact, is planning to move to one of the [facility]. Says his daughter stays there as well as grandchildren. Would rather be with them. Says has a couple of siblings left here and that, although he gets along with them and sees them regularly, says would rather be with his daughter and see his grandchildren grow up. Says would not think of taking his life, particularly when he thinks of his daughter and grandchildren. Denies that he has had thoughts of doing so in any case. Does acknowledge has felt more depressed lately. He puts it down to the losses as well as the pain. Says was doing well with pain relief until he ran out of the oxycodone. Sayobdulia is seen at the [facility], mental health. Saw somebody called Whitney regularly. Says she has changed jobs there, and he is now due to see someone else. Says was seen there once a month. Has been on Viibryd for the last few months at 40 mg daily. Also takes hydroxyzine as needed for anxiety. Says has noticed poor motivation lately. Puts this down to grieving for the losses he has had in recent months. Says is generally quite neat but that his house is not as neat as it used to be. Again, puts it down to his poor motivation. He says drinks only occasionally and apparently had done so in the last couple of days to cope with the pain. Says has friends who come over and drink. He indicates that the pain clinic is aware of this but that they do not want him drinking. Denies any auditory or visual hallucinations. PAST PSYCHIATRIC HISTORY: Please refer to previous summaries. Has had hospitalizations here and most recent one at [facility] in [place]; this was in October. He had come in when he was intoxicated or at least had been drinking, and there were some concerns regarding suicidal thoughts. Had also been given a short dose of benzodiazepines, clonazepam, about 3 weeks ago, reasons unclear as far as I am aware. When seen here in 2014, was diagnosed with substance-induced mood disorder and alcohol dependence. He was on Celexa at the time and treated for anxiety and panic attacks. MEDICAL HISTORY: Please refer to previous summaries. Has chronic pains. Has had difficulties with his ankles for many years. Has rheumatoid arthritis, osteoarthritis, gastroesophageal reflux disease (GERD). There is a history of a stroke at some point. Has diabetes mellitus, gout, and hypothyroidism. MEDICATIONS: Please see the list. These include oxycodone, thiamine, folic acid, Flomax, Lovenox, propranolol, acetaminophen, promethazine. Was given methadone briefly. SOCIAL HISTORY: Please refer to previous summaries. Currently lives on his own. Has had several losses, as mentioned above, and has a couple of siblings near him. Has a daughter who lives down south with grandchildren. He plans to move there if he can sell the house he is in, which is his mother's place. Says they are talking about it. Hopes that can be done before winter. MENTAL STATUS EXAMINATION: Fair hygiene, long hair, long boyer. Is in hospital clothes. Appears well nourished. Is cooperative. There is no agitation. No psychomotor retardation. He is coherent. No abnormal movements noted. Affect is reactive, though a bit restricted in range. Denies any suicidal thoughts or intents at present. Denies any homicidal ideas or intents. Does not appear to be internally preoccupied. No fluctuation of consciousness. He is alert, oriented to time, place, and person. Can spell the word "house" forward and backward. Can recall two out of three objects after 5 minutes. Intellect is average. Judgment good. Insight fair. VITAL SIGNS: Blood pressure 144/81, pulse 54, temperature 98. LAB VALUES: Had shown urine toxicology positive for opiates, benzodiazepines, and cannabinoids. Alcohol level was 0.058. ASSESSMENT: 1. Other specified depressive disorder. 2. Alcohol use disorder. The possibility of opiate use disorder has to be considered. Has been in chronic pain. Is in treatment with the pain clinic. He ran out of medicines 2 days short. Says is not sure why. It is quite possible he may be minimizing his drinking. He has been depressed for the last few months. Several losses, mother and two brothers. He was staying with his mother and brother. Currently lives alone at his mother's place. Has siblings in the area. He denies any suicidal thoughts or intents at present. Says has got them occasionally, not sustained. No plans to harm himself. Drinks, he says, only occasionally but probably minimizes it. At present, there is no delirium. He is not psychotic. Denies any suicidal thoughts or intents. RECOMMENDATIONS: Continue optimizing his current care and address pain management. Suggest he not use alcohol. Continue Viibryd at present dose, at 40 mg daily. I would suggest resuming it here. The possibility of augmenting the Viibryd may need to be considered. It is best done in the outpatient setting. It also ought to be done after pain management is optimized. He says it is possible he may get medicines other than the oxycodone to help with pain. Would refer him back to the [facility], outpatient mental health. He is already established there. I would also suggest that he start seeing a therapist there to help with coping with his current situation. Thank you for the consult. If there are questions, please call. The assessment took 45 minutes. ADDENDUM: I asked the patient about the hospitalization in [place] in October of this year. He says he did not remember much of it and, when briefly reminded, indicated that his brother may have called on him as he was concerned that the patient may hurt himself, but says he had no intention of doing so. Was depressed. Says it was around about the time he lost his other brother. He says was there for 2 days at [facility] in [place] and they discharged him with followup at [facility]. Says does not have any weapons at home and that the gun that he had at that time is at his brother's place locally. Addendum dictated: MARIO ALBERTO 03/23/2019 1817 Addendum transcribed: aaron 03/24/2019 151
--- NOTE | 2019-03-24 19:07 | DS.PDOC ---
Discharge Summary General Date of Admission Mar 22, 2019 at 11:21 Date of Discharge 03/24/19 Attending Physician: HOLLY GREEN MD Specialist/Consultants Involve: Ale Caldera MD Discharge Summary PROCEDURES PERFORMED DURING STAY: None ADMITTING DIAGNOSES: 1. Opioid withdrawal 2. Suicidal ideation DISCHARGE DIAGNOSES: 1. Opioid dependence with withdrawal 2. Anxiety and depression 3. Chronic musculoskeletal pain 4. Alcohol dependence with withdrawal 5. DM II 6. BPH 7. Gout 8. Hypothyroidism 9. Colonic diverticulosis COMPLICATIONS/CHIEF COMPLAINT: Drug Withdrawal Suicidal Ideation. HISTORY OF PRESENT ILLNESS: Kobe is a 53-year-old male with pertinent past medical history of Alcohol abuse, depression, CVA (which she described as "mini strokes"), rheumatoid arthritis, osteoarthritis, and diabetes, who presented to the emergency department today by ambulance with the chief complaints of active opioid drug withdrawal and major depression. He states that he ran out of his oxycodone medication 2 days ago. He has had 10 out of 10 epigastric abdominal pain that radiated to his back bilaterally in a belt-like pattern. This epigastric abdominal pain actually started one week ago and was improving, but has gotten significantly worse in the last 2 days since his oxycodone medication ran out. Once the pain got too intense, Kobe called the police and was subsequently picked up via ambulance/EMS. Kobe, who has been chronically depressed, has had an especially intense bout of depression recently seeing as one brother, his mother, and another brother have all in the past 8 months or so. He has had a lack of desire to do anything. At this time, he denies any suicidal ideation or homicidal ideation. He takes 15 mg of oxycodone 6 times a day and was prescribed this by Jenn Lo, a now retired specialist with [facility] pain management, for chronic back and bilateral ankle pain. As he was feeling very shaky and nervous he had a double shot of Vodka today before coming to the hospital. He claims that before today his previous drink was 3 weeks ago. Kobe denies any sick contacts, recent illnesses or recent travel. The only rece nt change in his medications was he was started on Flomax a few weeks ago. In the ED, the Kobe was given a total of 250 mg of fentanyl. The fentanyl was dosed with three, 50 mg administrations, followed by a 100 mg administration. Kobe also underwent an EKG which showed normal sinus rhythm and was similar to his previous EKG (from 04/19/2015). Patient will be admitted to the hospitalist service for supportive care and monitoring of his status. HOSPITAL COURSE: After admission, Kobe received one day of 5mg methadone bid for pain and opioid withdrawal. He was then switched over to 10 mg oxycodone. While his presenting abdominal pain resolved, he continued to state he was in significant pain, most especially in his lower back and bilateral ankles. His pain was affecting his sleep. As Kobe' stay continued, he became more and more discontented with not getting the amount of oxycodone he is prescribed as an outpatient. There was one-to-one supervision for Kobe after he endorsed history of suicidal ideation. One-to-one supervision was discontinued when Kobe was evaluated by psychiatry on 03/23. Psychiatry was consulted and advocated that Kobe' pain be addressed in his care optimized with pain management.. He should continue with his viibryd antidepressant medication and as an outpatient should consider possibility of adding a second mood stabilizer/antidepressant/anxiolytic. He should continue being seen in outpatient mental health at the [facility]. It is also suggested he find a therapist there to help with his current severe depression. Throughout his stay, Kobe denied any active suicidal ideations, tremors, shakes, chills, or other withdrawal related symptoms. DISCHARGE MEDICATIONS: Please see below. ALLERGIES: Please see below. PHYSICAL EXAMINATION ON DISCHARGE: VITAL SIGNS: Please see below. General Exam: Positive: Alert, Cooperative, No Acute Distress Eye Exam: Positive: PERRLA, EOMI; Negative: Sclera icteric, Ptosis Neck Exam: Positive: Supple; Negative: thyromegaly Chest Exam: Positive: Clear to auscultation; Negative: Rhonchi Heart Exam: Positive: Bradycardic, Regular Rhythm, Normal S1, Normal S2 Abdomen Exam: Positive: Normal bowel sounds, Soft; Negative: Tenderness, Mass Extremity Exam: Positive: Normal pulses (2+ radial and posterior tibial pulses bilaterally), Tenderness (Tenderness to palpation of distal lower extremity feet and ankles bilaterally), Swelling (Mild swelling of the left ankle as compared to the right); Negative: Clubbing, Cyanosis Skin Exam: Positive: Nl turgor and temperature Neuro Exam: Positive: Strength at 5/5 X4 ext, Sensation Intact (to light touch upper extremity bilaterally) Psych Exam: Positive: Mental status NL, Oriented x 3 LABORATORY DATA: Please see below. IMAGING: Chest x-ray, 03/22- Negative portable chest. There is no interval change. CT angiogram chest, 03/22 no acute disease Abdomen/pelvis CT, 03/22 colon diverticulosis but no evidence of diverticulitis PROGNOSIS: Fair ACTIVITY: [As tolerated]. DIET: As tolerated DISPOSITION: 01 Home, Self-Care. DISCHARGE INSTRUCTIONS & OUTPATIENT FOLLOW-UP: 1. Follow-up as outpatient with mental health at the [facility], starting with scheduled appointment 03/29. 2. Find a therapist at the [facility] to help with current worsening of depression 3. Follow-up with primary care physician next 7-10 days 4. Follow-up with [facility] pain management to discuss state of opioid dependence and alcohol use. Investigate ways to better address pain and decrease likelihood of adverse events from ongoing substance dependence. 5. If symptoms that caused patient to originally come in worsen, or an acute medical emergency occurs, patient is advised to return to the emergency department DISCHARGE CONDITION: [Stable]. I saw and evaluated the patient. I agree with the findings and plan of care as documented in the documenters note. I spent 45 minutes coordinating this patient's discharge. Vital Signs/I&Os Vital Signs Date Time Temp Pulse Resp B/P (MAP) Pulse Ox O2 Delivery O2 Flow Rate FiO2 03/24/19 10:00 97.1 59 22 158/88 (111) 96 03/22/19 19:04 Room Air I&O- Last 24 Hours up to 6 AM 03/24/19 06:00 Intake Total 3480 ml Output Total 850 ml Balance 2630 ml Laboratory Data Labs 24H Laboratory Tests 2 03/24/19 05:45: Nucleated Red Blood Cells % (auto) 0.0, Anion Gap 4L, Glomerular Filtration Rate > 60.0, Blood Urea Nitrogen 13, Creatinine 1.03, Sodium Level 138, Potassium Level 4.0, Chloride Level 106, Carbon Dioxide Level 28, Calcium Level 8.0L, Magnesium Level 2.2 CBC/BMP Laboratory Tests 03/24/19 05:45 Red Blood Count 5.21, Mean Corpuscular Volume 76.4 L, Mean Corpuscular Hemoglobin 24.6 L, Mean Corpuscular Hemoglobin Concent 32.2, Red Cell Distribution Width 18.2 H, Calcium Level 8.0 L Discharge Medications Scheduled Aspirin (Ecotrin) 81 Mg Tablet.dr, 81 MG PO DAILY, (Reported) Folic Acid (Folic Acid) 1 Mg Tablet, 1 MG PO DAILY Metformin HCl (Metformin HCl) 500 Mg Tablet, 500 MG PO BID, (Reported) Multivitamins (Thera M Plus Tablet) 1 Each Tablet, 1 TAB PO DAILY Propranolol HCl (Propranolol HCl) 40 Mg Tablet, 40 MG PO BID, (Reported) Tamsulosin HCl (Flomax) 0.4 Mg Capsule, 0.4 MG PO DAILY, (Reported) Thiamine Hcl (Vitamin B-1) 100 Mg Tablet, 100 MG PO BID Vilazodone HCl (Viibryd) 40 Mg Tablet, 40 MG PO DAILY, (Reported) Scheduled PRN Hydroxyzine Pamoate (Hydroxyzine Pamoate) 50 Mg Cap, 100 MG PO TID PRN for ANXIETY, (Reported) Oxycodone Hcl (Oxycodone HCl) 15 Mg Tab, 15 MG PO Q4H PRN for PAIN, (Reported) Allergies Coded Allergies: Aseefta-Tqm-Etk Reductase Inhibitor (Verified Allergy, Severe, FACIAL REDNESS AND TINGLING, 03/22/19) niacin (Verified Adverse Reaction, Intermediate, CHEST PAIN AND FLUSHING, 03/22/19) hydrocodone (Verified Adverse Reaction, Mild, GI UPSET, 03/22/19) prednisone (Verified Adverse Reaction, Mild, MOOD CHANGE, 03/22/19) AZUL DIAMOND PGY-1 Mar 24, 2019 19:07 HOLLY GREEN MD Mar 25, 2019 18:48
== END 2019-03-24 12:23 | disposition home or self-care (01) ==
LOC: EDBD 11:20 → M ED 11:20 → M ED INP 11:21 → M MSPAV 20:57
PROVIDERS: ADMIT Internal Medicine Nephrology; ATTEND Internal Medicine Nephrology
DX: F11.23 Opioid dependence with withdrawal (principal); F41.9 Anxiety disorder, unspecified; F32.9 Major depressive disorder, single episode, unspecified; G89.29 Other chronic pain; F10.239 Alcohol dependence with withdrawal, unspecified; E11.9 Type 2 diabetes mellitus without complications; N40.0 Benign prostatic hyperplasia without lower urinary tract symptoms; M10.9 Gout, unspecified; E03.9 Hypothyroidism, unspecified; K57.90 Diverticulosis of intestine, part unspecified, without perforation or abscess without bleeding; M06.9 Rheumatoid arthritis, unspecified; R45.851 Suicidal ideations; Z79.82 Long term (current) use of aspirin; Z79.899 Other long term (current) drug therapy; Z88.8 Allergy status to other drugs, medicaments and biological substances; Z86.73 Personal history of transient ischemic attack (TIA), and cerebral infarction without residual deficits
CPT/HCPCS: 36415; 71045; 71275; 74177; 80048; 80053; 80076; 80307; 82550; 83690; 83735; 84443; 85025; 85027; 93005; 93041; 94760; 96361; 96372; 96374; 96375; 96376; 99285; C9113; G0480; J1650; J2405; J3010; Q9967

== ENCOUNTER → 2019-03-30 | Outpatient (CLI) | payer OTHER ==
[~2019-03-30] MED LIST changes: +ECOT81TA5 PO; +FLOM0.4C39 PO; +FOLI1TAB11 PO; +METF-839 PO; +PROP40TA62 PO; +THIA100TA PO; +VIIB40TA PO; +VITMTA PO
== END ==
LOC: M PAIN 13:00
PROVIDERS: ATTEND Nurse Practitioner Family
DX: M25.571 Pain in right ankle and joints of right foot (principal); Z53.21 Procedure and treatment not carried out due to patient leaving prior to being seen by health care provider

== ENCOUNTER → 2019-04-06 | Outpatient (CLI) | payer OTHER ==
[~2019-04-06] MED LIST changes: +INDO-16 PO; -INDO25CA PO; -INDO50CA11 PO; +INDO50CA91 PO
--- NOTE | 2019-04-20 23:59 | ECWPNPC ---
PATIENT NAME: JANICE LAY : 1965 GENDER: MALE VISIT DATE: 04/06/2019 DISCHARGE DATE: 04/06/19 1541 VISIT LOCKED DATE TIME: PHYSICIAN: PRAMOD COLE RESOURCE: PRAMOD COLE REASON FOR APPOINTMENT 1. 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 PAIN THE PATIENT DESCRIBES THE PAIN... THE PATIENT DESCRIBES THE PAIN... FALL RISK SCREENING: SCREENING :NO FALLS REPORTED IN THE LAST YEAR CURRENT MEDICATIONS TAKING METFORMIN HCL 500 MG TABLET 1 TABLET WITH MEALS ORALLY TWICE A DAY TAKING HYDROXYZINE HCL 50 MG TABLET 1 TABLET NEEDED ORALLY EVERY 6 HRS TAKING ASPIRIN ADULT LOW STRENGTH 81 MG TABLET DELAYED RELEASE 1 TABLET ORALLY ONCE A DAY TAKING QUNOL ULTRA COQ10 100-150 MG-UNIT CAPSULE ORALLY TAKING BUPROPION HCL ER (XL) 150 MG TABLET EXTENDED RELEASE 24 HOUR 1 TABLET IN THE MORNING ORALLY ONCE A DAY TAKING NEXIUM 24HR 20 MG CAPSULE DELAYED RELEASE 1 CAPSULE ORALLY ONCE A DAY TAKING VIIBRYD 40 MG TABLET 1 TABLET WITH FOOD ORALLY ONCE A DAY TAKING VITAMIN B-1 100 MG TABLET 1 TABLET ORALLY ONCE A DAY TAKING PROPRANOLOL HCL 40 MG TABLET 1 TABLET ON AN EMPTY STOMACH ORALLY ONCE A DAY TAKING FOLIC ACID 1 MG TABLET 1 TABLET ORALLY ONCE A DAY TAKING TAMSULOSIN HCL 0.4 MG CAPSULE 1 CAPSULE ORALLY ONCE A DAY TAKING OXYCODONE HCL 15 MG TABLET 1 TABLET NEEDED ORALLY EVERY 4 HRS PRN PAIN MDD =6 NOT-TAKING ALLOPURINOL 100 MG TABLET 1 TABLET ORALLY TWICE A DAY NOT-TAKING LEVOTHYROXINE SODIUM 75 MCG TABLET 1 TABLET ON AN EMPTY STOMACH IN THE MORNING ORALLY ONCE A DAY NOT-TAKING CITALOPRAM HYDROBROMIDE 40 MG TABLET 1 TAB ORALLY ONCE A DAY NOT-TAKING SIMVASTATIN 40 MG TABLET 1 TABLET IN THE EVENING ORALLY ONCE A DAY NOT-TAKING GEMFIBROZIL 600 MG TABLET 1 TABLET ORALLY TWICE A DAY NOT-TAKING PANTOPRAZOLE SODIUM 40 MG TABLET DELAYED RELEASE 1 TABLET ORALLY ONCE A DAY NOT-TAKING AMITIZA 24 MCG CAPSULE 1 CAPSULE WITH FOOD ORALLY TWICE A DAY NOT-TAKING COLACE 100 MG CAPSULE 1 CAPSULE ORALLY TWICE A DAY NEEDED FOR CONSTIPATION MEDICATION LIST REVIEWED AND RECONCILED WITH THE PATIENT PAST MEDICAL HISTORY HYPERTENSION HISTORY OF STROKE DIABETES HYPOTHYROIDISM BILATERAL ANKLE PAIN LOW BACK PAIN ANXIETY RHEUMATOID ARTHRITIS GERD HYPERLIPIDEMIA DEPRESSION GOUT GALL STONES OSTEOARTHRITIS ALLERGIES NIACIN: RED/TINGLY - ALLERGY SURGICAL HISTORY APPENDECTOMY 2010 CHOLECYSTECTOMY 04/21/17 FAMILY HISTORY FATHER: , DIAGNOSED WITH DIABETES, HYPERTENSION, HEART DISEASE, STROKE MOTHER: ALIVE, CANCER 4 BROTHER(S) , 1 SISTER(S) - HEALTHY. 1 SON(S) , 1 DAUGHTER(S) - HEALTHY. SOCIAL HISTORY GENERAL: TOBACCO USE ARE YOU A:CURRENT SMOKER ARE YOU INTERESTED IN QUITTING?NOT READY TO QUIT COUNSELED THE PATIENT ON SMOKING EFFECTS, EDUCATION [id number]/17/2018 HOW MANY CIGARETTES A DAY DO YOU SMOKE?6-10 PATIENT COUNSELED ON THE DANGERS OF TOBACCO USE AND URGED TO QUIT:06/17/2018 REMINDED OF NEED TO QUIT SMOKING / NOT INTERESTED AT THIS TIME OTHERS AT HOME: [place]. DIET: REGULAR. 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?NO PAIN CLINIC PFS, CLERGY, PUBLIC HEALTH REFERRALS PFS REFERRAL NEEDED?NO CLERGY REFERRAL NEEDED?NO PUBLIC HEALTH REFERRAL NEEDED?NO WAS THE PROVIDER NOTIFIED OF ANY PERTINENT INFO?NO HAS THE PATIENT BEEN EDUCATED REGARDING HIS/HER PLAN OF CARE?YES HAS THE PATIENT BEEN EDUCATED REGARDING PAIN, THE RISK FOR PAIN, THE IMPORTANCE OF EFFECTIVE PAIN MANAGEMENT, AND THE PAIN ASSESSMENT PROCESS?YES LATEX QUESTIONNAIRE LATEX ALLERGY : HAVE YOU EVER DEVELOPED ANY TYPE OF REACTION AFTER HANDLING LATEX PRODUCTS SUCH RUBBER GLOVES, CONDOMS, DIAPHRAGMS, BALLOONS, SOCKS, OR UNDERWEAR?NO LATEX ALLERGY : HAVE YOU EVER DEVELOPED ANY TYPE OF REACTION DURING OR AFTER DENTAL APPOINTMENT, VAGINAL/RECTAL EXAMINATION, SURGICAL PROCEDURE, OR ANY OTHER EXPOSURE?NO LATEX RISK : HAVE YOU EVER HAD ANY DIFFICULTY BREATHING OR HIVES AFTER EATING OR HANDLING ANY FRUITS, OR VEGETABLES; SUCH KIWI, BANANAS, STONE FRUITS, OR CHESTNUTSNO LATEX RISK : DO YOU HAVE A PREVIOUS PERSONAL HISTORY OF MORE THAN NINE SURGERIES, SPINA BIFIDA, OR REPEATED CATHERIZATIONS? NO LATEX RISK : ARE YOU FREQUENTLY EXPOSED TO LATEX PRODUCTS IN YOUR OCCUPATION?NO DATE ASKED : 01/12/2019 CAFFEINE CAFFEINE USE?NO ADVANCE DIRECTIVE ADVANCE DIRECTIVE DISCUSSED WITH PATIENT:YES PT DECLINES HCP INFO AND ASSISTANCE AT THIS TIME. 11/17/18 PT DECLINES HCP INFORMATION AT THIS TIME 01/12/19 ORIENTAL ORTHODOX [id number] NONE MARITAL STATUS: SINGLE. ALCOHOL SCREENING DID YOU HAVE A DRINK CONTAINING ALCOHOL IN THE PAST YEAR?YES HOW OFTEN DID YOU HAVE A DRINK CONTAINING ALCOHOL IN THE PAST YEAR?TWO TO THREE TIMES PER WEEK (3 POINTS) HOW MANY DRINKS DID YOU HAVE ON A TYPICAL DAY WHEN YOU WERE DRINKING IN THE PAST YEAR?3 OR 4 (1 POINT) HOW OFTEN DID YOU HAVE SIX OR MORE DRINKS ON ONE OCCASION IN THE PAST YEAR?NEVER (0 POINTS) POINTS4 INTERPRETATIONPOSITIVE REVIEWED WITH PT 02/05/18 1226 BVREVIEWED WITH PATIENT 06/17/18 1422 JSREVIEWED WITH PT 11/17/18 1427 BVREVIEWED WITH PT 01/12/19 1348 BVREVIEWED WITH PATIENT 04/06/19 1430 LAS. HOSPITALIZATION/MAJOR DIAGNOSTIC PROCEDURE PANCREATITIS 2018 REVIEW OF SYSTEMS REVIEWED BY: PROVIDER: PRAMOD VALDEZ . CONSTITUTIONAL: ANY CHANGE IN YOUR MEDICAL CONDITION? NO . CHILLS NO . FEVER NO . INFECTION: DO YOU HAVE NEW INFECTIONS? NO . DO YOU HAVE HISTORY OF MRSA? NO . MUSCULOSKELETAL: ANY NEW PATTERNS OF PAIN OR NUMBNESS? NO . GASTROENTEROLOGY: ANY NEW CHANGE IN BOWEL CONTROL? NO . GENITOURINARY: ANY NEW CHANGE IN BLADDER CONTROL? NO . IS THERE A CHANCE YOU COULD BE ? NO . HEMATOLOGY/LYMPH: DO YOU TAKE ANY BLOOD THINNERS? (FOR EXAMPLE- COUMADIN, PLAVIX, AGGRENOX, PLATEL, PRADAXA, OR XARELTO) NO . WHEN WAS YOUR LAST DOSE? DATE: TIME: . NEUROLOGY: HAVE YOU FALLEN IN THE PAST 12 MONTHS? NO . ANY NEW EXTREMITY NUMBNESS OR WEAKNESS? NO . CARDIOLOGY: DO YOU HAVE A PACEMAKER OR DEFIBRILLATOR? NO . RESPIRATORY: HAVE YOU BEEN SICK IN THE PAST WEEK? NO . FEVER NO . FLU LIKE SYMPTOMS? NO . COUGH NO . INTEGUMENTARY: DO YOU HAVE ANY RASHES OR OPEN SORES? NO . ALLERGIC/IMMUNO: ARE YOU ALLERGIC TO IV DYE? NO . ANY NEW ALLERGIES? NO . PSYCHIATRIC: DO YOU HAVE THOUGHTS OF HURTING YOURSELF OR SOMEONE ELSE? NO . ARE YOU ABUSED, NEGLECTED, OR IN AN UNSAFE ENVIRONMENT? NO . ENDOCRINOLOGY: ARE YOU DIABETIC? NO . OTHER: DO YOU NEED ANY PRESCRIPTIONS? NO . IF YES, PLEASE LIST: ____ . ANY NEW PROBLEMS WITH YOUR MEDICATIONS? NO . WHEN DID YOU LAST EAT? ____ . WHEN DID YOU LAST DRINK? ____ . WHAT DID YOU LAST DRINK? ____ . NAME OF PERSON DRIVING YOU HOME? ____ . DO YOU HAVE ANY OTHER QUESTIONS OR CONCERNS NO . VITAL SIGNS WT 233.6 LBS, HT 68 IN, BMI 35.51 INDEX, BP 97/63 MM HG, HR 58 /MIN, RR 16 /MIN, TEMP 96.5 F, OXYGEN SAT % 98%, NA INITIALS SC 14:42, REVIEWED BY: TOREY. EXAMINATION GENERAL EXAMINATION: GENERALAWAKE,ALERT ,PLEAASANT . PSYCHAFFECT NORMAL . LUNGS:LUNG WALLACE ARE CLEAR TO AUSCULTATION BILATERALLY. GOOD MOVEMENT OF AIR . HEART:S1, S2 IN A REGULAR RATE AND RHYTHM. NO SIGNIFICANT MURMURS, RUBS OR GALLOPS NOTED . 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 TREATMENT PAIN IN LEFT ANKLE AND JOINTS OF LEFT FOOT DECREASE OXYCODONE HCL TABLET, 15 MG, 1 TABLET NEEDED, ORALLY, 1 TAB Q4-6HR PRN MDD5, 30 DAY(S), 150, REFILLS 0 START CLONIDINE HCL TABLET, 0.1 MG, 1 TABLET, ORALLY, Q8H PRN WITHDRAWAL SYMPTOMS, 10 DAY(S), 30, REFILLS 0 START FLEXERIL 10 MG 30 TABLETS, 10 MG, ONE TABLET, ORALLY, EVERY 8 HOURS PRN PAIN, 30, REFILLS 2 NOTES: TODAY PATIENT HAS AGREED TO EMBARK ON A TREATMENT PLAN TO REDUCE AND DISCONTINUE OXYCODONE SLOWLY OVER THE COARSE OF SEVERAL MONTHS.HE IS AWARE THAT WE NEED TO REDUCE AND STOP OXYCODONE BEFORE ALTERNATIVE MEDICATIONS CAN BE TRIALED.HE IS AWARE THAT HE CAN NOT ADJUST MEDICATIONS ON HIS OWN DUE TO INCREASED PAIN.HE IS AWARE THAT WE NEED TO HAVE COMPLETE COMPLIANCE WITH TREATMENT PLAN AND CLINIC POLICY OR WE WOULD BE DISCHARGING HIMTAKE MAX 5 TAB OXYCODONE PER DAY.MEDICATION SHOULD LAST UNTIL APRIL 23.TAKE CLONIDINE 0.1MG TAB NEEDED FOR WITHDRAWAL SYMPTOMS UP TO 3 PER DAY X10 DAYS.START FLEXORIL 10MG UP TO 2 PER DAY FOR SEVERE PAIN EPISODES. PREVENTIVE MEDICINE PAIN CLINIC TEACHING: MEDICATIONS INFORMATIONAL HANDOUT FOR CLONIDINE AND FLEXERIL PRINTED AND REVIEWED WITH PATIENT, MEDICATION CHANGES REVIEWED WITH PATIENT. PATIENT VERBALIZES UNDERSTANDING. LAS. PROCEDURE CODES FA211 ESTABILISHED PATIENT [facility] CHARGE DISPOSITION & COMMUNICATION FOLLOW UP 4 WEEKS (REASON: MED MGMNT) ELECTRONICALLY SIGNED BY COURTNEY SOARES ON 04/20/2019 AT 03:51 PM EDT DISCLAIMER : THIS IS A VISIT SUMMARY EXTRACTED FROM THE [employer] CHART. IT IS NOT A COPY OF THE [employer] PROGRESS NOTE. ZURI
== END ==
LOC: M PAIN 14:15
PROVIDERS: ATTEND Nurse Practitioner Family
DX: M25.572 Pain in left ankle and joints of left foot (principal); M51.26 Other intervertebral disc displacement, lumbar region; G89.29 Other chronic pain; I10 Essential (primary) hypertension; E11.9 Type 2 diabetes mellitus without complications; Z86.59 Personal history of other mental and behavioral disorders; E78.5 Hyperlipidemia, unspecified; M19.90 Unspecified osteoarthritis, unspecified site; F17.210 Nicotine dependence, cigarettes, uncomplicated; K21.9 Gastro-esophageal reflux disease without esophagitis; Z88.8 Allergy status to other drugs, medicaments and biological substances; Z79.84 Long term (current) use of oral hypoglycemic drugs; Z79.82 Long term (current) use of aspirin; Z79.899 Other long term (current) drug therapy

== ENCOUNTER → 2019-05-13 | Outpatient (CLI) | payer OTHER ==
--- NOTE | 2019-06-02 00:13 | ECWPNPC ---
PATIENT NAME: JANICE LAY : 1965 GENDER: MALE VISIT DATE: 05/13/2019 DISCHARGE DATE: 05/13/19 1206 VISIT LOCKED DATE TIME: PHYSICIAN: PRAMOD COLE RESOURCE: PRAMOD COLE REASON FOR APPOINTMENT 1. MED MGMT HISTORY OF PRESENT ILLNESS HISTORY OF PRESENT ILLNESS: HERE FOR 1 MOS F/U AND MEDICINE MANAGEMENT OF CHRONIC NECK AND LBP.WE ARE IN PROCESS OF SLOWLY REDUCING NARCOTIC PAIN MEDICATION.HE IS TOLERATING THIS FAIRLY WELL.BRINGS IN MEDICATION THAT IS APPROPRIATE FOR WHAT WS DISPENSED.DISCUSSED MEDICATION PLAN.RATING PAIN VAS 5/10. PAIN THE PATIENT DESCRIBES THE PAIN... FALL RISK SCREENING: SCREENING :NO FALLS REPORTED IN THE LAST YEAR CURRENT MEDICATIONS TAKING METFORMIN HCL 500 MG TABLET 1 TABLET WITH MEALS ORALLY TWICE A DAY TAKING HYDROXYZINE HCL 50 MG TABLET 1 TABLET NEEDED ORALLY EVERY 6 HRS TAKING ASPIRIN ADULT LOW STRENGTH 81 MG TABLET DELAYED RELEASE 1 TABLET ORALLY ONCE A DAY TAKING QUNOL ULTRA COQ10 100-150 MG-UNIT CAPSULE ORALLY TAKING NEXIUM 24HR 20 MG CAPSULE DELAYED RELEASE 1 CAPSULE ORALLY ONCE A DAY TAKING VITAMIN B-1 100 MG TABLET 1 TABLET ORALLY ONCE A DAY TAKING PROPRANOLOL HCL 40 MG TABLET 1 TABLET ON AN EMPTY STOMACH ORALLY ONCE A DAY TAKING FOLIC ACID 1 MG TABLET 1 TABLET ORALLY ONCE A DAY TAKING TAMSULOSIN HCL 0.4 MG CAPSULE 1 CAPSULE ORALLY ONCE A DAY TAKING CLONIDINE HCL 0.1 MG TABLET 1 TABLET ORALLY Q8H PRN WITHDRAWAL SYMPTOMS TAKING FLEXERIL 10 MG 30 10 MG TABLETS ONE TABLET ORALLY EVERY 8 HOURS PRN PAIN TAKING OXYCODONE HCL 15 MG TABLET 1 TABLET NEEDED ORALLY 1 TAB Q4-6HR PRN MDD5 TAKING DULOXETINE HCL 30 MG CAPSULE DELAYED RELEASE PARTICLES 1 CAPSULE ORALLY ONCE A DAY NOT-TAKING BUPROPION HCL ER (XL) 150 MG TABLET EXTENDED RELEASE 24 HOUR 1 TABLET IN THE MORNING ORALLY ONCE A DAY NOT-TAKING VIIBRYD 40 MG TABLET 1 TABLET WITH FOOD ORALLY ONCE A DAY NOT-TAKING ALLOPURINOL 100 MG TABLET 1 TABLET ORALLY TWICE A DAY NOT-TAKING LEVOTHYROXINE SODIUM 75 MCG TABLET 1 TABLET ON AN EMPTY STOMACH IN THE MORNING ORALLY ONCE A DAY NOT-TAKING CITALOPRAM HYDROBROMIDE 40 MG TABLET 1 TAB ORALLY ONCE A DAY NOT-TAKING SIMVASTATIN 40 MG TABLET 1 TABLET IN THE EVENING ORALLY ONCE A DAY NOT-TAKING GEMFIBROZIL 600 MG TABLET 1 TABLET ORALLY TWICE A DAY NOT-TAKING PANTOPRAZOLE SODIUM 40 MG TABLET DELAYED RELEASE 1 TABLET ORALLY ONCE A DAY NOT-TAKING AMITIZA 24 MCG CAPSULE 1 CAPSULE WITH FOOD ORALLY TWICE A DAY NOT-TAKING COLACE 100 MG CAPSULE 1 CAPSULE ORALLY TWICE A DAY NEEDED FOR CONSTIPATION MEDICATION LIST REVIEWED AND RECONCILED WITH THE PATIENT PAST MEDICAL HISTORY HYPERTENSION HISTORY OF STROKE DIABETES HYPOTHYROIDISM BILATERAL ANKLE PAIN LOW BACK PAIN ANXIETY RHEUMATOID ARTHRITIS GERD HYPERLIPIDEMIA DEPRESSION GOUT GALL STONES OSTEOARTHRITIS ALLERGIES NIACIN: RED/TINGLY - ALLERGY SURGICAL HISTORY APPENDECTOMY 2010 CHOLECYSTECTOMY 04/21/17 FAMILY HISTORY FATHER: , DIAGNOSED WITH DIABETES, HYPERTENSION, UNSPECIFIED HEART DISEASE, UNSPECIFIED CEREBRAL ARTERY OCCLUSION WITH CEREBRAL INFARCTION MOTHER: ALIVE, OTHER MALIGNANT NEOPLASM OF UNSPECIFIED SITE 4 BROTHER(S) , 1 SISTER(S) - HEALTHY. 1 SON(S) , 1 DAUGHTER(S) - HEALTHY. SOCIAL HISTORY GENERAL: TOBACCO USE ARE YOU A:CURRENT SMOKER ARE YOU INTERESTED IN QUITTING?NOT READY TO QUIT COUNSELED THE PATIENT ON SMOKING EFFECTS, EDUCATION [id number]/17/2018 HOW MANY CIGARETTES A DAY DO YOU SMOKE?6-10 PATIENT COUNSELED ON THE DANGERS OF TOBACCO USE AND URGED TO QUIT:05/13/2019 REMINDED OF NEED TO QUIT SMOKING / NOT INTERESTED AT THIS TIME OTHERS AT HOME: [place]. DIET: REGULAR. 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 PFS, CLERGY, PUBLIC HEALTH REFERRALS PFS REFERRAL NEEDED?NO CLERGY REFERRAL NEEDED?NO PUBLIC HEALTH REFERRAL NEEDED?NO WAS THE PROVIDER NOTIFIED OF ANY PERTINENT INFO?NO HAS THE PATIENT BEEN EDUCATED REGARDING HIS/HER PLAN OF CARE?YES HAS THE PATIENT BEEN EDUCATED REGARDING PAIN, THE RISK FOR PAIN, THE IMPORTANCE OF EFFECTIVE PAIN MANAGEMENT, AND THE PAIN ASSESSMENT PROCESS?YES LATEX QUESTIONNAIRE LATEX ALLERGY : HAVE YOU EVER DEVELOPED ANY TYPE OF REACTION AFTER HANDLING LATEX PRODUCTS SUCH RUBBER GLOVES, CONDOMS, DIAPHRAGMS, BALLOONS, SOCKS, OR UNDERWEAR?NO LATEX ALLERGY : HAVE YOU EVER DEVELOPED ANY TYPE OF REACTION DURING OR AFTER DENTAL APPOINTMENT, VAGINAL/RECTAL EXAMINATION, SURGICAL PROCEDURE, OR ANY OTHER EXPOSURE?NO DATE ASKED : 01/12/2019 LATEX RISK : HAVE YOU EVER HAD ANY DIFFICULTY BREATHING OR HIVES AFTER EATING OR HANDLING ANY FRUITS, OR VEGETABLES; SUCH KIWI, BANANAS, STONE FRUITS, OR CHESTNUTSNO LATEX RISK : DO YOU HAVE A PREVIOUS PERSONAL HISTORY OF MORE THAN NINE SURGERIES, SPINA BIFIDA, OR REPEATED CATHERIZATIONS? NO LATEX RISK : ARE YOU FREQUENTLY EXPOSED TO LATEX PRODUCTS IN YOUR OCCUPATION?NO CAFFEINE CAFFEINE USE?NO ADVANCE DIRECTIVE ADVANCE DIRECTIVE DISCUSSED WITH PATIENT:YES PT DECLINES HCP INFO AND ASSISTANCE AT THIS TIME. 11/17/18 PT DECLINES HCP INFORMATION AT THIS TIME 01/12/19 TEMPLE [id number] NONE MARITAL STATUS: SINGLE. ALCOHOL SCREENING DID YOU HAVE A DRINK CONTAINING ALCOHOL IN THE PAST YEAR?YES HOW OFTEN DID YOU HAVE SIX OR MORE DRINKS ON ONE OCCASION IN THE PAST YEAR?NEVER (0 POINTS) HOW MANY DRINKS DID YOU HAVE ON A TYPICAL DAY WHEN YOU WERE DRINKING IN THE PAST YEAR?3 OR 4 (1 POINT) HOW OFTEN DID YOU HAVE A DRINK CONTAINING ALCOHOL IN THE PAST YEAR?TWO TO THREE TIMES PER WEEK (3 POINTS) POINTS4 INTERPRETATIONPOSITIVE REVIEWED WITH PT 02/05/18 1226 BVREVIEWED WITH PATIENT 06/17/18 1422 JSREVIEWED WITH PT 11/17/18 1427 BVREVIEWED WITH PT 01/12/19 1348 BVREVIEWED WITH PATIENT 04/06/19 1430 LASREVIEWED WITH PATIENT 05/13/19 1122 NLJ. HOSPITALIZATION/MAJOR DIAGNOSTIC PROCEDURE PANCREATITIS 2019 WAS ADMITTED TO [facility] MAY 2019 DUE TO VERTIGO- DUE TO DEHYDRATION 2018 REVIEW OF SYSTEMS REVIEWED BY: PROVIDER: PRAMOD VALDEZ . CONSTITUTIONAL: ANY CHANGE IN YOUR MEDICAL CONDITION? YES- STATES HE WAS ADNITTED TO [facility] IN [place] DUE TO DEHYDRATION AND VERTIGO . CHILLS NO . FEVER NO . INFECTION: DO YOU HAVE NEW INFECTIONS? NO . DO YOU HAVE HISTORY OF MRSA? NO . MUSCULOSKELETAL: ANY NEW PATTERNS OF PAIN OR NUMBNESS? NO- PAIN VARIES, SOME DAYS ARE BETTER THAN OTHERS, STATES PAIN IS TOLERABLE WITH MEDS . GASTROENTEROLOGY: ANY NEW CHANGE IN BOWEL CONTROL? NO . GENITOURINARY: ANY NEW CHANGE IN BLADDER CONTROL? NO . IS THERE A CHANCE YOU COULD BE ? NO . HEMATOLOGY/LYMPH: DO YOU TAKE ANY BLOOD THINNERS? (FOR EXAMPLE- COUMADIN, PLAVIX, AGGRENOX, PLATEL, PRADAXA, OR XARELTO) NO . WHEN WAS YOUR LAST DOSE? DATE: TIME: . NEUROLOGY: HAVE YOU FALLEN IN THE PAST 12 MONTHS? YES- STATES HE HAD A FALL BEFORE BEING ADMITTED TO HOSPITAL DUE TO VERTIGO . ANY NEW EXTREMITY NUMBNESS OR WEAKNESS? YES- STATES SHE FEELS WEAKNESS IN BLE . CARDIOLOGY: DO YOU HAVE A PACEMAKER OR DEFIBRILLATOR? NO . RESPIRATORY: HAVE YOU BEEN SICK IN THE PAST WEEK? NO . FEVER NO . FLU LIKE SYMPTOMS? NO . COUGH NO . INTEGUMENTARY: DO YOU HAVE ANY RASHES OR OPEN SORES? NO . ALLERGIC/IMMUNO: ARE YOU ALLERGIC TO IV DYE? NO . ANY NEW ALLERGIES? NO . PSYCHIATRIC: DO YOU HAVE THOUGHTS OF HURTING YOURSELF OR SOMEONE ELSE? NO . ARE YOU ABUSED, NEGLECTED, OR IN AN UNSAFE ENVIRONMENT? NO . ENDOCRINOLOGY: ARE YOU DIABETIC? NO . OTHER: DO YOU NEED ANY PRESCRIPTIONS? NO . IF YES, PLEASE LIST: ____ . ANY NEW PROBLEMS WITH YOUR MEDICATIONS? NO . WHEN DID YOU LAST EAT? ____ . WHEN DID YOU LAST DRINK? ____ . WHAT DID YOU LAST DRINK? ____ . NAME OF PERSON DRIVING YOU HOME? ____ . DO YOU HAVE ANY OTHER QUESTIONS OR CONCERNS NO . VITAL SIGNS WT 225.8 LBS, HT 68 IN, BMI 34.33 INDEX, BP 117/75 MM HG, HR 60 /MIN, RR 16 /MIN, TEMP 95.5 F, OXYGEN SAT % 99%, SAFE IN ENV? (Y/N) YES, NA INITIALS AW 1119, REVIEWED BY: TANVI. EXAMINATION GENERAL EXAMINATION: GENERALAWAKE,ALERT ,PLEAASANT . PSYCHAFFECT NORMAL . LUNGS:LUNG WALLACE ARE CLEAR TO AUSCULTATION BILATERALLY. GOOD MOVEMENT OF AIR . HEART:S1, S2 IN A REGULAR RATE AND RHYTHM. NO SIGNIFICANT MURMURS, RUBS OR GALLOPS NOTED . 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 BRINGS IN MEDICATIONS WHICH IS 7 PILLS SHORT. RECENT URINE TOXICOLOGY REVIEWED. NO UNAUTHORIZED MEDICATIONS. NO ILLICIT SUBSTANCES AND PRESCRIBED MEDICATIONS WERE PRESENT. URINE TOX TODAY, RISKS AND BENEFITS OF NARCOTIC/OPIOD MEDICATIONS WERE REVIEWED WITH PATIENT - THIS INCLUDES BUT IS NOT LIMITED TO RISK OF DEPENDANCE/DEVELOPMENT OF ADDICTION, MOOD DISTURBANCE AND DEPRESSION, OSTEOPOROSIS, HORMONAL AND LABIDAL CHANGES, RESPIRATORY DEPRESSION AND . PATIENT IS ADVISED NOT TO DRIVE OR DRINK ALCOHOL WHILE ON THESE MEDICATIONS. PROCEDURE CODES FA211 ESTABILISHED PATIENT [facility] CHARGE DISPOSITION & COMMUNICATION FOLLOW UP 4 WEEKS (REASON: MED MGMNT) ELECTRONICALLY SIGNED BY COURTNEY SOARES ON 06/01/2019 AT 02:56 PM EDT DISCLAIMER : THIS IS A VISIT SUMMARY EXTRACTED FROM THE [employer] CHART. IT IS NOT A COPY OF THE [employer] PROGRESS NOTE. ZURI
== END ==
LOC: M PAIN 10:45
PROVIDERS: ATTEND Nurse Practitioner Family
DX: M25.572 Pain in left ankle and joints of left foot (principal); M51.26 Other intervertebral disc displacement, lumbar region; G89.29 Other chronic pain; I10 Essential (primary) hypertension; E11.9 Type 2 diabetes mellitus without complications; Z86.59 Personal history of other mental and behavioral disorders; M06.9 Rheumatoid arthritis, unspecified; K21.9 Gastro-esophageal reflux disease without esophagitis; E78.5 Hyperlipidemia, unspecified; F17.210 Nicotine dependence, cigarettes, uncomplicated; Z88.8 Allergy status to other drugs, medicaments and biological substances; Z79.84 Long term (current) use of oral hypoglycemic drugs; Z79.82 Long term (current) use of aspirin; Z79.899 Other long term (current) drug therapy

== ENCOUNTER 2019-06-18 20:26 | Emergency (ER) | payer OTHER, SELFPAY ==
[~2019-06-18] VITALS: Ht 172.7 cm; Wt 104.5 kg
[2019-06-18 21:46] LABS: HEMATOCRIT 47.1 % (42.0-52.0); HEMOGLOBIN 15.5 g/dl (13.5-17.5); MEAN CORPUSCULAR HEMOGLOBIN 26.2 pg (27.0-33.0); MEAN CORPUSCULAR HGB CONC 32.9 g/dl (32.0-36.5); MEAN CORPUSCULAR VOLUME 79.7 fl (80.0-96.0); PLATELET COUNT, AUTOMATED 154 10^3/uL (150-450); RED BLOOD COUNT 5.91 10^6/uL (4.30-6.10); WHITE BLOOD COUNT 10.1 10^3/uL (4.0-10.0)
[2019-06-18 22:21] LABS: ACETAMINOPHEN LEVEL < 2.0 UG/ML (10.0-30.0); ALBUMIN 3.6 GM/DL (3.2-5.2); ALT/SGPT 18 U/L (12-78); BILIRUBIN,DIRECT < 0.1 MG/DL (0.0-0.2); BILIRUBIN,TOTAL 0.3 MG/DL (0.2-1.0); BLOOD UREA NITROGEN 7 MG/DL (7-18); CALCIUM LEVEL 8.6 MG/DL (8.5-10.1); CARBON DIOXIDE LEVEL 29 MEQ/L (21-32); CHLORIDE LEVEL 100 MEQ/L (98-107); CREATININE FOR GFR 1.02 MG/DL (0.70-1.30); ETHYL ALCOHOL (ETHANOL) 0.157 % (0.000-0.010); GLOMERULAR FILTRATION RATE > 60.0 (>56); GLUCOSE, FASTING 179 MG/DL (70-100); POTASSIUM SERUM 3.9 MEQ/L (3.5-5.1); SALICYLATE LEVEL 4.6 MG/DL (5.0-30.0); SODIUM LEVEL 135 MEQ/L (136-145); TOTAL PROTEIN 6.6 GM/DL (6.4-8.2)
[2019-06-18 22:24] LABS: AMPHETAMINES LEVEL URINE NEGATIVE (NEGATIVE); BARBITURATES URINE NEGATIVE (NEGATIVE); BENZODIAZEPINES URINE NEGATIVE (NEGATIVE); CANNABINOIDS URINE NEGATIVE (NEGATIVE); COCAINE METABOLITE URINE NEGATIVE (NEGATIVE); METHADONE URINE NEGATIVE (NEGATIVE); OPIATES URINE POSITIVE (NEGATIVE); PHENCYCLIDINE URINE NEGATIVE (NEGATIVE)
[2019-06-19] MEDS ORDERED: LORazepam 2 MG TAB PO STA (00:21)
[2019-06-19] MEDS ORDERED: ONDANSETRON 4 MG ORAL DISINTEGRATING TAB (Q0162 PER 1MG) PO ONE ×3 (00:45→15:00)
[2019-06-19] MEDS ORDERED: FOLIC ACID 1 MG TAB PO ONE (07:30)
[2019-06-19] MEDS ORDERED: THIAMINE 100 MG TAB PO ONE (07:30)
[2019-06-19] MEDS ORDERED: metFORMIN (GLUCOPHAGE) 500 MG TAB PO ONE (07:30)
[2019-06-19] MEDS ORDERED: ASPIRIN 81 MG CHEW TABLET PO ONE (07:30)
--- NOTE | 2019-06-19 07:55 | ECGEPIP ---
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
[2019-06-19] MEDS ORDERED: ACETAMINOPHEN TAB 650MG DOSE (2X325MG) PO PRN (10:15)
[2019-06-19 18:55] VITALS: BP 138/74
== END 2019-06-19 19:00 ==
LOC: M ED 20:26
DX: R45.851 Suicidal ideations (principal); M54.5 Low back pain; G89.29 Other chronic pain; F11.10 Opioid abuse, uncomplicated; F32.9 Major depressive disorder, single episode, unspecified; E11.9 Type 2 diabetes mellitus without complications; I10 Essential (primary) hypertension; K21.9 Gastro-esophageal reflux disease without esophagitis; F17.200 Nicotine dependence, unspecified, uncomplicated; F10.10 Alcohol abuse, uncomplicated; E03.9 Hypothyroidism, unspecified; Z88.5 Allergy status to narcotic agent; Z88.8 Allergy status to other drugs, medicaments and biological substances; Z79.82 Long term (current) use of aspirin; Z79.84 Long term (current) use of oral hypoglycemic drugs; Z79.899 Other long term (current) drug therapy
CPT/HCPCS: 36415; 80048; 80076; 80307; 84443; 85027; 93005; 99285; G0480; Q0162

== ENCOUNTER → 2019-06-18 | Outpatient (CLI) | payer OTHER ==
--- NOTE | 2019-07-01 01:01 | ECWPNPC ---
PATIENT NAME: JANICE LAY : 1965 GENDER: MALE VISIT DATE: 06/18/2019 DISCHARGE DATE: 06/18/19 0000 VISIT LOCKED DATE TIME: PHYSICIAN: PRAMOD COLE RESOURCE: PRAMOD COLE REASON FOR APPOINTMENT 1. MED MGMT HISTORY OF PRESENT ILLNESS HISTORY OF PRESENT ILLNESS: HERE FOR F/U AND MEDICINE MANAGEMENT VISIT.URINE TOX DONE AT LAST VISIT IS REVIEWED.SHOWING POSITIVE FOR HYDROCODONE THAT HE IS NOT BEING PRESCRIBED AND PATIENT DENIES TAKING.HE BRINGS IN AN EMPTY BOTTLE OF OXYCODONE 15MG.HE SHOULD HAVE APPROXIMATLEY 8 TABS OF THIS TODAY.ISTOP IS REVIEWED AND SHOWS HE PICKED UP OXYCODONE 5MG #30 TABLETS ON 05/27/19.HE STATES HE NEVER PICKED THIS UP.INFORMED HIM THAT WE WOULD NOT BE PRESCRIBING OPIODS FROM THIS CLINIC.HE TOLD ME THAT IF HE DOESNT GET SOMETHING FOR PAIN HE WILL KILL HIMSELF WITH HEROIN OR SOMETHING ELSE.ASKED HIM IF HE WOULD LET US GET HIM SOME HELP FOR MENTAL HEALTH TODAY AND HE STATES IM NOT GOING TO TALK TO ANYONE BECAUSE THEY WONT GIVE YOU NOTHING FOR PAIN.TALKED ABOUT INJECTION TRIALS OR OTHER NON NARCOTIC PAIN MEDICATION AND HE STATES THAT HE'S DONE INJECTIONS ASND THEY DONT WORK.OFFERED HIM MEDICATION FOR WITHDRAWAL SYMPTOMS AND HE IS REFUSING.HE GOT UP AND SAID WELL IF YOUR NOT GOING TO HELP ME THEN IM (VULGARITY) LEAVING.HE WALKED OUT OF CLINIC WITHOUT CHECKING OUT.JT JENKINS -PROFESSOR OF PATHOLOGY WAS PRESENT AND AWARE OF SITUATION.WILL DISCUSS FORMAL LETTER OF DISCHARGE. PAIN THE PATIENT DESCRIBES THE PAIN... FALL RISK SCREENING: SCREENING :NO FALLS REPORTED IN THE LAST YEAR CURRENT MEDICATIONS TAKING METFORMIN HCL 500 MG TABLET 1 TABLET WITH MEALS ORALLY TWICE A DAY TAKING HYDROXYZINE HCL 50 MG TABLET 1 TABLET NEEDED ORALLY EVERY 6 HRS TAKING ASPIRIN ADULT LOW STRENGTH 81 MG TABLET DELAYED RELEASE 1 TABLET ORALLY ONCE A DAY TAKING QUNOL ULTRA COQ10 100-150 MG-UNIT CAPSULE ORALLY TAKING NEXIUM 24HR 20 MG CAPSULE DELAYED RELEASE 1 CAPSULE ORALLY ONCE A DAY TAKING VITAMIN B-1 100 MG TABLET 1 TABLET ORALLY ONCE A DAY TAKING PROPRANOLOL HCL 40 MG TABLET 1 TABLET ON AN EMPTY STOMACH ORALLY ONCE A DAY TAKING FOLIC ACID 1 MG TABLET 1 TABLET ORALLY ONCE A DAY TAKING CLONIDINE HCL 0.1 MG TABLET 1 TABLET ORALLY Q8H PRN WITHDRAWAL SYMPTOMS TAKING FLEXERIL 10 MG 30 10 MG TABLETS ONE TABLET ORALLY EVERY 8 HOURS PRN PAIN TAKING DULOXETINE HCL 30 MG CAPSULE DELAYED RELEASE PARTICLES 1 CAPSULE ORALLY ONCE A DAY TAKING OXYCODONE HCL 15 MG TABLET 1 TABLET NEEDED ORALLY 1 Q6H PRN MDD4 NOT-TAKING TAMSULOSIN HCL 0.4 MG CAPSULE 1 CAPSULE ORALLY ONCE A DAY NOT-TAKING OXYCODONE HCL 5 MG TABLET 1 TABLET NEEDED ORALLY DAILY NOT-TAKING BUPROPION HCL ER (XL) 150 MG TABLET EXTENDED RELEASE 24 HOUR 1 TABLET IN THE MORNING ORALLY ONCE A DAY NOT-TAKING VIIBRYD 40 MG TABLET 1 TABLET WITH FOOD ORALLY ONCE A DAY NOT-TAKING ALLOPURINOL 100 MG TABLET 1 TABLET ORALLY TWICE A DAY NOT-TAKING LEVOTHYROXINE SODIUM 75 MCG TABLET 1 TABLET ON AN EMPTY STOMACH IN THE MORNING ORALLY ONCE A DAY NOT-TAKING CITALOPRAM HYDROBROMIDE 40 MG TABLET 1 TAB ORALLY ONCE A DAY NOT-TAKING SIMVASTATIN 40 MG TABLET 1 TABLET IN THE EVENING ORALLY ONCE A DAY NOT-TAKING GEMFIBROZIL 600 MG TABLET 1 TABLET ORALLY TWICE A DAY NOT-TAKING PANTOPRAZOLE SODIUM 40 MG TABLET DELAYED RELEASE 1 TABLET ORALLY ONCE A DAY NOT-TAKING AMITIZA 24 MCG CAPSULE 1 CAPSULE WITH FOOD ORALLY TWICE A DAY NOT-TAKING COLACE 100 MG CAPSULE 1 CAPSULE ORALLY TWICE A DAY NEEDED FOR CONSTIPATION MEDICATION LIST REVIEWED AND RECONCILED WITH THE PATIENT PAST MEDICAL HISTORY HYPERTENSION HISTORY OF STROKE DIABETES HYPOTHYROIDISM BILATERAL ANKLE PAIN LOW BACK PAIN ANXIETY RHEUMATOID ARTHRITIS GERD HYPERLIPIDEMIA DEPRESSION GOUT GALL STONES OSTEOARTHRITIS ALLERGIES NIACIN: RED/TINGLY - ALLERGY SURGICAL HISTORY APPENDECTOMY 2010 CHOLECYSTECTOMY 04/21/17 FAMILY HISTORY FATHER: , DIAGNOSED WITH DIABETES, HYPERTENSION, UNSPECIFIED HEART DISEASE, UNSPECIFIED CEREBRAL ARTERY OCCLUSION WITH CEREBRAL INFARCTION MOTHER: ALIVE, OTHER MALIGNANT NEOPLASM OF UNSPECIFIED SITE 4 BROTHER(S) , 1 SISTER(S) - HEALTHY. 1 SON(S) , 1 DAUGHTER(S) - HEALTHY. SOCIAL HISTORY GENERAL: TOBACCO USE ARE YOU A:CURRENT SMOKER ARE YOU INTERESTED IN QUITTING?NOT READY TO QUIT COUNSELED THE PATIENT ON SMOKING EFFECTS, EDUCATION [id number]/2019 HOW MANY CIGARETTES A DAY DO YOU SMOKE?6-10 PATIENT COUNSELED ON THE DANGERS OF TOBACCO USE AND URGED TO QUIT:06/18/2019 REMINDED OF NEED TO QUIT SMOKING / NOT INTERESTED AT THIS TIME OTHERS AT HOME: [place]. DIET: REGULAR. 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?NO PAIN CLINIC PFS, CLERGY, PUBLIC HEALTH REFERRALS PFS REFERRAL NEEDED?NO CLERGY REFERRAL NEEDED?NO PUBLIC HEALTH REFERRAL NEEDED?NO WAS THE PROVIDER NOTIFIED OF ANY PERTINENT INFO?NO HAS THE PATIENT BEEN EDUCATED REGARDING HIS/HER PLAN OF CARE?YES HAS THE PATIENT BEEN EDUCATED REGARDING PAIN, THE RISK FOR PAIN, THE IMPORTANCE OF EFFECTIVE PAIN MANAGEMENT, AND THE PAIN ASSESSMENT PROCESS?YES LATEX QUESTIONNAIRE LATEX ALLERGY : HAVE YOU EVER DEVELOPED ANY TYPE OF REACTION AFTER HANDLING LATEX PRODUCTS SUCH RUBBER GLOVES, CONDOMS, DIAPHRAGMS, BALLOONS, SOCKS, OR UNDERWEAR?NO LATEX ALLERGY : HAVE YOU EVER DEVELOPED ANY TYPE OF REACTION DURING OR AFTER DENTAL APPOINTMENT, VAGINAL/RECTAL EXAMINATION, SURGICAL PROCEDURE, OR ANY OTHER EXPOSURE?NO DATE ASKED : 01/12/2019 LATEX RISK : HAVE YOU EVER HAD ANY DIFFICULTY BREATHING OR HIVES AFTER EATING OR HANDLING ANY FRUITS, OR VEGETABLES; SUCH KIWI, BANANAS, STONE FRUITS, OR CHESTNUTSNO LATEX RISK : DO YOU HAVE A PREVIOUS PERSONAL HISTORY OF MORE THAN NINE SURGERIES, SPINA BIFIDA, OR REPEATED CATHERIZATIONS? NO LATEX RISK : ARE YOU FREQUENTLY EXPOSED TO LATEX PRODUCTS IN YOUR OCCUPATION?NO CAFFEINE CAFFEINE USE?NO ADVANCE DIRECTIVE ADVANCE DIRECTIVE DISCUSSED WITH PATIENT:YES PT DECLINES HCP INFO AND ASSISTANCE AT THIS TIME. 11/17/18 PT DECLINES HCP INFORMATION AT THIS TIME MORMONISM [id number] NONE MARITAL STATUS: SINGLE. ALCOHOL SCREENING DID YOU HAVE A DRINK CONTAINING ALCOHOL IN THE PAST YEAR?YES HOW OFTEN DID YOU HAVE SIX OR MORE DRINKS ON ONE OCCASION IN THE PAST YEAR?NEVER (0 POINTS) HOW MANY DRINKS DID YOU HAVE ON A TYPICAL DAY WHEN YOU WERE DRINKING IN THE PAST YEAR?3 OR 4 (1 POINT) HOW OFTEN DID YOU HAVE A DRINK CONTAINING ALCOHOL IN THE PAST YEAR?TWO TO THREE TIMES PER WEEK (3 POINTS) POINTS4 INTERPRETATIONPOSITIVE REVIEWED WITH PT 02/05/18 1226 BVREVIEWED WITH PATIENT 06/17/18 1422 JSREVIEWED WITH PT 11/17/18 1427 BVREVIEWED WITH PT 01/12/19 1348 BVREVIEWED WITH PATIENT 04/06/19 1430 LASREVIEWED WITH PATIENT 05/13/19 1122 NLJ. HOSPITALIZATION/MAJOR DIAGNOSTIC PROCEDURE PANCREATITIS 2019 WAS ADMITTED TO [facility] MAY 2019 DUE TO VERTIGO- DUE TO DEHYDRATION 2018 REVIEW OF SYSTEMS REVIEWED BY: PROVIDER: PRAMOD VALDEZ . CONSTITUTIONAL: ANY CHANGE IN YOUR MEDICAL CONDITION? NO . CHILLS NO . FEVER NO . INFECTION: DO YOU HAVE NEW INFECTIONS? NO . DO YOU HAVE HISTORY OF MRSA? NO . MUSCULOSKELETAL: ANY NEW PATTERNS OF PAIN OR NUMBNESS? NO . GASTROENTEROLOGY: ANY NEW CHANGE IN BOWEL CONTROL? NO . GENITOURINARY: ANY NEW CHANGE IN BLADDER CONTROL? NO . IS THERE A CHANCE YOU COULD BE ? NO . HEMATOLOGY/LYMPH: DO YOU TAKE ANY BLOOD THINNERS? (FOR EXAMPLE- COUMADIN, PLAVIX, AGGRENOX, PLATEL, PRADAXA, OR XARELTO) NO . WHEN WAS YOUR LAST DOSE? DATE: TIME: . NEUROLOGY: HAVE YOU FALLEN IN THE PAST 12 MONTHS? FELL 3 WEEKS AGO, COULDN'T WALK, WENT TO [facility], WAS TRANSFERRED TO [facility] IN [place] ADMITTED X 3 DAYS, DISCHARGED W DX OF DEHYDRATION . ANY NEW EXTREMITY NUMBNESS OR WEAKNESS? NO . CARDIOLOGY: DO YOU HAVE A PACEMAKER OR DEFIBRILLATOR? NO . RESPIRATORY: HAVE YOU BEEN SICK IN THE PAST WEEK? NO . FEVER NO . FLU LIKE SYMPTOMS? NO . COUGH NO . INTEGUMENTARY: DO YOU HAVE ANY RASHES OR OPEN SORES? SORE TO RIGHT EAR, . ALLERGIC/IMMUNO: ARE YOU ALLERGIC TO IV DYE? NO . ANY NEW ALLERGIES? NO . PSYCHIATRIC: DO YOU HAVE THOUGHTS OF HURTING YOURSELF OR SOMEONE ELSE? NO . ARE YOU ABUSED, NEGLECTED, OR IN AN UNSAFE ENVIRONMENT? NO . ENDOCRINOLOGY: ARE YOU DIABETIC? YES . OTHER: DO YOU NEED ANY PRESCRIPTIONS? YES, OXYCODONE . IF YES, PLEASE LIST: ____ . ANY NEW PROBLEMS WITH YOUR MEDICATIONS? NO . WHEN DID YOU LAST EAT? ____ . WHEN DID YOU LAST DRINK? ____ . WHAT DID YOU LAST DRINK? ____ . NAME OF PERSON DRIVING YOU HOME? ____ . DO YOU HAVE ANY OTHER QUESTIONS OR CONCERNS NO . VITAL SIGNS WT 223.2 LBS, HT 68 IN, BMI 33.93 INDEX, BP 185/87 MM HG, HR 107 /MIN, RR 16 /MIN, TEMP 95.7 F, OXYGEN SAT % 100%, NA INITIALS AW 1353, REVIEWED BY: EM. MARIN PAIN IN LEFT ANKLE AND JOINTS OF LEFT FOOT - M25.572 (PRIMARY) CHRONIC USE OF OPIATE DRUGS THERAPEUTIC PURPOSES - Z79.891 LUMBAGO DUE TO DISPLACEMENT OF INTERVERTEBRAL DISC - M51.26 TREATMENT PAIN IN LEFT ANKLE AND JOINTS OF LEFT FOOT NOTES: PATIENT LEFT WITHOUT CHECKING OUT. PROCEDURE CODES FA211 ESTABILISHED PATIENT [facility] CHARGE DISPOSITION & COMMUNICATION ELECTRONICALLY SIGNED BY COURTNEY SOARES ON 06/30/2019 AT 03:16 PM EDT DISCLAIMER : THIS IS A VISIT SUMMARY EXTRACTED FROM THE [employer] CHART. IT IS NOT A COPY OF THE Z [employer] PROGRESS NOTE. ZURI
== END ==
LOC: M PAIN 13:45
PROVIDERS: ATTEND Nurse Practitioner Family
DX: M25.572 Pain in left ankle and joints of left foot (principal); Z79.891 Long term (current) use of opiate analgesic; M51.26 Other intervertebral disc displacement, lumbar region; E11.9 Type 2 diabetes mellitus without complications; I10 Essential (primary) hypertension; E03.9 Hypothyroidism, unspecified; Z79.82 Long term (current) use of aspirin; Z79.84 Long term (current) use of oral hypoglycemic drugs; Z79.899 Other long term (current) drug therapy; Z88.8 Allergy status to other drugs, medicaments and biological substances; F17.210 Nicotine dependence, cigarettes, uncomplicated

== ENCOUNTER 2020-08-08 18:14 | Inpatient (IN) | payer MEDICAID, OTHER ==
[~2020-08-08] VITALS: Ht 172.7 cm; Wt 93.4 kg
[~2020-08-08 18:14] MED LIST changes: -ASPI81TA85 PO; +ASPI81TA86 PO; +OMEP1CAP73 PO; -OMEP20CA4 PO; +OXYC-1 PO; -OXYC15TA76 PO
[2020-08-08] MEDS ORDERED: HYDR50TA70 PO (18:34)
[2020-08-08] MEDS ORDERED: BUSP15TA47 PO (18:34)
[2020-08-08] MEDS ORDERED: ASPI-1 PO (18:36)
[2020-08-08] MEDS ORDERED: NIFEdipine 10 MG CAP PO ONE (19:00)
[2020-08-08 19:42] LABS: HEMATOCRIT 39.3 % (42.0-52.0); MEAN CORPUSCULAR HEMOGLOBIN 31.5 pg (27.0-33.0); MEAN CORPUSCULAR HGB CONC 33.1 g/dl (32.0-36.5); MEAN CORPUSCULAR VOLUME 95.2 fl (80.0-96.0); RED BLOOD COUNT 4.13 10^6/uL (4.30-6.10); WHITE BLOOD COUNT 4.1 10^3/uL (4.0-10.0)
[2020-08-08 19:50] LABS: AMPHETAMINES LEVEL URINE NEGATIVE (NEGATIVE); BARBITURATES URINE NEGATIVE (NEGATIVE); BENZODIAZEPINES URINE NEGATIVE (NEGATIVE); CANNABINOIDS URINE NEGATIVE (NEGATIVE); COCAINE METABOLITE URINE NEGATIVE (NEGATIVE); METHADONE URINE NEGATIVE (NEGATIVE); OPIATES URINE NEGATIVE (NEGATIVE); PHENCYCLIDINE URINE NEGATIVE (NEGATIVE)
[2020-08-08 19:56] LABS: PLATELET COUNT, AUTOMATED 99 10^3/uL (150-450)
[2020-08-08 20:15] LABS: ACETAMINOPHEN LEVEL < 2.0 UG/ML (10.0-30.0); ALBUMIN 3.3 GM/DL (3.2-5.2); ALT/SGPT 124 U/L (12-78); BILIRUBIN,DIRECT 0.1 MG/DL (0.0-0.2); BILIRUBIN,TOTAL 0.4 MG/DL (0.2-1.0); BLOOD UREA NITROGEN 8 MG/DL (7-18); CALCIUM LEVEL 7.9 MG/DL (8.5-10.1); CARBON DIOXIDE LEVEL 27 MEQ/L (21-32); CHLORIDE LEVEL 105 MEQ/L (98-107); CK-MB VALUE MASS < 1.0 NG/ML (<3.6); CPK CREATINE PHOSPHOKINASE 69 U/L (39-308); CREATININE FOR GFR 0.76 MG/DL (0.70-1.30); ETHYL ALCOHOL (ETHANOL) 0.286 % (0.000-0.010); GLOMERULAR FILTRATION RATE > 60.0 (>56); GLUCOSE, FASTING 80 MG/DL (70-100); MB/CK RELATIVE INDEX 1.45 (< OR =4); POTASSIUM SERUM 4.4 MEQ/L (3.5-5.1); SALICYLATE LEVEL 2.5 MG/DL (5.0-30.0); SODIUM LEVEL 138 MEQ/L (136-145); TOTAL PROTEIN 6.5 GM/DL (6.4-8.2); TROPONIN I < 0.02 NG/ML (< 0.10)
[2020-08-08] MEDS ORDERED: LORazepam 1 MG TAB PO STA (21:10)
[2020-08-08] MEDS ORDERED: ACETAMINOPHEN 325 MG TAB PO ONE (21:15)
[2020-08-09] MEDS ORDERED: ONDANSETRON 4 MG ORAL DISINTEGRATING TAB PO ONE ×2 (01:00→22:50)
[2020-08-09] MEDS ORDERED: HYDR50TA70 PO (05:39)
[2020-08-09] MEDS ORDERED: DULO60CA35 PO (05:39)
[2020-08-09] MEDS ORDERED: TRAZ-186 PO (05:39)
[2020-08-09] MEDS ORDERED: THIA100T7 PO (05:39)
[2020-08-09] MEDS ORDERED: ASPI325T54 PO (05:39)
[2020-08-09] MEDS ORDERED: BUSP15TA47 PO (05:39)
[2020-08-09] MEDS ORDERED: OXAZEPAM 15 MG CAP PO ONE (05:45)
[2020-08-09] MEDS ORDERED: MOM 30ML SUSPENSION UDC PO PRN (06:30)
[2020-08-09] MEDS ORDERED: FLOM0.4C39 PO (08:33)
[2020-08-09] MEDS ORDERED: SERO1TAB PO (08:33)
[2020-08-09] MEDS ORDERED: FOLI1TAB11 PO (08:33)
[2020-08-09] MEDS ORDERED: CARV12.5 PO (08:33)
[2020-08-09] MEDS ORDERED: FLUO20CA22 PO (08:33)
[2020-08-09] MEDS ORDERED: OMEP-218 PO (08:33)
[2020-08-09] MEDS ORDERED: OXYC10TA12 PO (08:33)
[2020-08-09] MEDS ORDERED: ATOR80TA59 PO (08:33)
[2020-08-09] MEDS ORDERED: LASI40TA9 PO (08:33)
[2020-08-09] MEDS ORDERED: BUSP10TA PO (08:33)
--- NOTE | 2020-08-09 08:40 | ECGEPIP ---
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
[2020-08-09 09:18] VITALS: BP 140/98
[2020-08-09 10:10] VITALS: BP 140/98
[2020-08-09 10:15] LABS: RSV AMPLIFICATION NEGATIVE (NEGATIVE)
[2020-08-09] MEDS: FOLIC ACID 1 MG TAB PO SCH (10:21)
[2020-08-09] MEDS: THIAMINE 100 MG TAB PO SCH ×2 (10:21→20:28)
[2020-08-09] MEDS: MULTIVITAMINS/MINERALS THERAP 1 TAB PO SCH (10:21)
[2020-08-09] MEDS: LORazepam 2 MG TAB PO PRN ×2 (10:24→21:58)
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
[2020-08-09 14:00] VITALS: BP 149/88
[2020-08-09] MEDS ORDERED: FLUoxetine 10 MG CAP PO ONE (14:45)
[2020-08-09] MEDS ORDERED: QUEtiapine FUMARATE 25 MG TAB PO PRN (14:45)
[2020-08-09] MEDS: MAALOX 30 ML SUSP *UDC PO PRN (16:00)
[2020-08-09 16:30] VITALS: BP 140/92
[2020-08-09] MEDS: ACETAMINOPHEN TAB 650MG DOSE (2X325MG) PO PRN ×2 (17:50→20:29)
[2020-08-09] MEDS: hydrOXYzine 25 MG TAB PO PRN (19:29)
[2020-08-09] MEDS: traZODone 50 MG TAB PO PRN (21:27)
[2020-08-09 21:51] VITALS: BP 148/102
[2020-08-10] VITALS (9 sets, daily range): BP systolic 128–166; BP diastolic 78–98
[2020-08-10] MEDS: MAALOX 30 ML SUSP *UDC PO PRN ×2 (00:16→20:18)
[2020-08-10] MEDS: LORazepam 2 MG TAB PO PRN (01:57)
[2020-08-10] MEDS ORDERED: IBUPROFEN 400 MG TAB PO ONE (02:00)
[2020-08-10] MEDS: FLUoxetine 10 MG CAP PO SCH (08:04)
[2020-08-10] MEDS: ACETAMINOPHEN TAB 650MG DOSE (2X325MG) PO PRN ×3 (08:05→20:23)
[2020-08-10] MEDS: FOLIC ACID 1 MG TAB PO SCH (08:05)
[2020-08-10] MEDS: MULTIVITAMINS/MINERALS THERAP 1 TAB PO SCH (08:05)
[2020-08-10] MEDS: hydrOXYzine 25 MG TAB PO PRN ×2 (08:05→12:48)
[2020-08-10] MEDS: THIAMINE 100 MG TAB PO SCH ×2 (08:05→20:20)
[2020-08-10] MEDS ORDERED: FLUBLOK(EGG FREE)(QUAD)INFLUENZA VACC 0.5ML SYRINGE 18YRS & OLDER IM ONE (09:00)
[2020-08-10] MEDS: NICOTINE 21MG/24HR 1 EA TRANSDERMAL TD SCH (09:18)
[2020-08-10] MEDS: FUROSEMIDE 40 MG TAB PO SCH (14:13)
[2020-08-10] MEDS: ATORVASTATIN 20 MG TAB PO SCH (14:13)
[2020-08-10] MEDS: ASPIRIN 325 MG TAB PO SCH (14:14)
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
[2020-08-10] MEDS ORDERED: ANUSOL HC 25MG SUPP PR SCH (17:00)
[2020-08-10] MEDS: TAMSULOSIN 0.4 MG CAP PO SCH (20:19)
[2020-08-10] MEDS: CARVedilol 12.5 MG TAB PO SCH (20:19)
[2020-08-10] MEDS: ANUSOL HC CREAM 30GM TOP PRN (20:21)
[2020-08-10] MEDS: QUEtiapine FUMARATE 50 MG TAB PO PRN (20:26)
[2020-08-10] MEDS: traZODone 50 MG TAB PO PRN (21:05)
[2020-08-10] MEDS ORDERED: ONDANSETRON 4 MG ORAL DISINTEGRATING TAB PO ONE (22:00)
[2020-08-11] MEDS ORDERED: GI COCKTAIL 50ML BTL(HYOSCYAMINE/MAALOX/LIDOCAINE VISCOUS)(1:3:1) PO ONE (00:15)
[2020-08-11 05:17] VITALS: BP 100/66
[2020-08-11] MEDS: MAALOX 30 ML SUSP *UDC PO PRN ×3 (05:20→21:42)
[2020-08-11] MEDS: hydrOXYzine 25 MG TAB PO PRN ×2 (05:20→16:48)
[2020-08-11] MEDS: ACETAMINOPHEN TAB 650MG DOSE (2X325MG) PO PRN ×4 (05:21→21:42)
[2020-08-11 06:40] VITALS: BP 100/66
[2020-08-11] MEDS: THIAMINE 100 MG TAB PO SCH ×2 (08:35→20:45)
[2020-08-11] MEDS: FOLIC ACID 1 MG TAB PO SCH (08:35)
[2020-08-11] MEDS: FLUoxetine 10 MG CAP PO SCH (08:36)
[2020-08-11] MEDS: TAMSULOSIN 0.4 MG CAP PO SCH ×2 (08:36→20:45)
[2020-08-11] MEDS: ASPIRIN 325 MG TAB PO SCH (08:36)
[2020-08-11] MEDS: ATORVASTATIN 20 MG TAB PO SCH (08:36)
[2020-08-11] MEDS: MULTIVITAMINS/MINERALS THERAP 1 TAB PO SCH (08:38)
[2020-08-11] MEDS: FUROSEMIDE 40 MG TAB PO SCH (08:39)
[2020-08-11] MEDS: NICOTINE 21MG/24HR 1 EA TRANSDERMAL TD SCH (08:40)
[2020-08-11] MEDS: ANUSOL HC CREAM 30GM TOP PRN ×3 (08:40→20:46)
[2020-08-11] MEDS: CARVedilol 12.5 MG TAB PO SCH ×2 (08:41→20:45)
[2020-08-11] MEDS ORDERED: OMEPRAZOLE 20 MG CAP PO SCH (09:00)
--- NOTE | 2020-08-11 10:02 | IPN ---
PROGRESS NOTE DATE: 08/10/2020 VITAL SIGNS: Blood pressure 166/78, pulse 84, temperature 98.4. CHIEF COMPLAINT: Feels stressed. SUBJECTIVE: Seen for followup. I am assigned to his care as Dr. Perez is not here. Says had diarrhea. Has hemorrhoids. Has been seen by hospitalist. Feels stressed but somewhat better, not as irritable. Says concerned that he will start drinking again if he leaves and then "do something stupid." Says he is more likely to hurt himself when he is drinking. The longest he has remained without alcohol has been about a month in the last two or three months or so. Says generally he is less irritable, less depressed. Concerned about residence as well, as he says he was "sort of evicted" where he was staying. The others were drinking there as well. MENTAL STATUS EXAMINATION: He is cooperative, though a bit guarded. No agitation. No psychomotor retardation. He is coherent. Affect restricted in range but showed reactivity. Vague on suicidal thoughts. No firm plans. No homicidal ideas or intents. No evidence of any psychosis. Cognition grossly intact. Judgment quite questionable. Insight is essentially compromised. ASSESSMENT: 1. Other specified depressive disorder. 2. Alcohol use disorder. Possibly a little less irritable but has significant concerns. Is possibly withdrawing from alcohol as well. PLAN: Continue fluoxetine at 10 mg daily. He has been on a higher dose. He is not quite sure how much but acknowledges has taken it inconsistently lately. It is preferable increasing the dose slowly given his current use of alcohol and high liver enzymes. Requests that the Seroquel be increased to 50 mg at night to help with sleep. He thinks he has used a higher dose. I feel that is fair, but he is aware that it is used empirically. He suggests would be interested in seeking inpatient rehabilitation rather than outpatient, and I tend to agree with that. That ought to be considered. May need assistance with residence as well. He is to be encouraged to participate in activities in the unit. Further recommendations will be made depending on the clinical picture. We met for 50 minutes.
[2020-08-11 14:00] VITALS: BP 116/76
[2020-08-11] MEDS: CALCIUM CARBONATE 500 MG CHEW U/D PO PRN ×2 (16:48→20:45)
[2020-08-11 17:03] VITALS: BP 116/76
[2020-08-11] MEDS: traZODone 50 MG TAB PO PRN (20:45)
[2020-08-11] MEDS: QUEtiapine FUMARATE 50 MG TAB PO PRN (20:46)
--- NOTE | 2020-08-11 21:28 | IPN ---
PROGRESS NOTE DATE: 08/11/2020 VITAL SIGNS: Blood pressure 106/76, pulse 65, temperature 98. CHIEF COMPLAINT: Feels stressed. SUBJECTIVE: Seen for follow up. I was assigned to his care again today. He says had difficulties with sleep last night, says his roommate was snoring quite a bit and the patient is getting his room changed today. Feels stressed, concerned about what would happen once he leaves and is quite concerned about picking up alcohol again. Appetite is fair. Diarrhea is somewhat improved. No sweating. Vague suicidal thoughts. MENTAL STATUS EXAMINATION: Neater than yesterday. He is cooperative. No agitation. He is coherent. Affect is also in fair range, but restricted. Vague suicidal thoughts, no firm plans at present. No homicidal ideas or intents. No evidence of any psychosis. Cognition is grossly intact. Judgment and insight remain essentially compromised. ASSESSMENT: 1. Other specified depressive disorder. 2. Alcohol use disorder. Somewhat less irritable, but remains depressed. Continues to withdraw from alcohol, but symptoms regarding that are improved. Has had periods that he has been free of alcohol up to 6 years, this happen within the last few years. Says has felt a bit better, but that he did not feel over elated in mood during that time. Did not report any symptoms indicative of hypomania or myriam. PLAN: Continue current care, but would consider increasing the fluoxetine to 20 mg daily to help his address his mood, would do that carefully given the liver. Encourage participation in activities in the unit. 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 Further recommendations will be made depending on the clinical picture. The increase in Seroquel to 50 mg yesterday is to remain, hopefully that is more helpful once he changes his room today. We met for 15 minutes.
[2020-08-11 23:00] VITALS: BP 148/84
[2020-08-12] MEDS: OLANZapine ORAL DISINTEGRATING TAB 5MG PO PRN ×4 (00:27→22:29)
[2020-08-12 06:00] VITALS: BP 108/55
[2020-08-12 07:39] LABS: BLOOD UREA NITROGEN 13 MG/DL (7-18); CALCIUM LEVEL 8.3 MG/DL (8.5-10.1); CARBON DIOXIDE LEVEL 29 MEQ/L (21-32); CHLORIDE LEVEL 108 MEQ/L (98-107); CREATININE FOR GFR 1.09 MG/DL (0.70-1.30); GLOMERULAR FILTRATION RATE > 60.0 (>56); GLUCOSE, FASTING 98 MG/DL (70-100); SODIUM LEVEL 141 MEQ/L (136-145)
[2020-08-12] MEDS: FUROSEMIDE 40 MG TAB PO SCH (08:16)
[2020-08-12] MEDS: ATORVASTATIN 20 MG TAB PO SCH (08:16)
[2020-08-12] MEDS: ASPIRIN 325 MG TAB PO SCH (08:16)
[2020-08-12] MEDS: ACETAMINOPHEN TAB 650MG DOSE (2X325MG) PO PRN ×3 (08:19→22:29)
[2020-08-12] MEDS: NICOTINE 21MG/24HR 1 EA TRANSDERMAL TD SCH (08:19)
[2020-08-12] MEDS: OMEPRAZOLE 20 MG CAP PO SCH (08:19)
[2020-08-12] MEDS: MULTIVITAMINS/MINERALS THERAP 1 TAB PO SCH (08:20)
[2020-08-12] MEDS: FLUoxetine 20 MG CAP PO SCH (08:20)
[2020-08-12] MEDS: FOLIC ACID 1 MG TAB PO SCH (08:20)
[2020-08-12] MEDS: TAMSULOSIN 0.4 MG CAP PO SCH ×2 (08:20→20:17)
[2020-08-12] MEDS: CARVedilol 12.5 MG TAB PO SCH ×2 (08:21→20:18)
[2020-08-12] MEDS: ANUSOL HC CREAM 30GM TOP PRN ×2 (09:40→20:16)
[2020-08-12 10:00] VITALS: BP 108/55
[2020-08-12 16:23] VITALS: BP 114/69
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
[2020-08-12 18:00] VITALS: BP 114/69
[2020-08-12] MEDS: QUEtiapine FUMARATE 100 MG TAB PO SCH (20:18)
[2020-08-12 21:25] VITALS: BP 115/72
[2020-08-12] MEDS: traZODone 50 MG TAB PO PRN (22:29)
[2020-08-13] MEDS: hydrOXYzine 25 MG TAB PO PRN ×3 (00:07→15:15)
[2020-08-13 06:00] VITALS: BP 149/71
[2020-08-13] MEDS: ANUSOL HC CREAM 30GM TOP PRN ×2 (06:30→20:24)
[2020-08-13] MEDS: OLANZapine ORAL DISINTEGRATING TAB 5MG PO PRN ×4 (06:30→23:26)
[2020-08-13] MEDS: ACETAMINOPHEN TAB 650MG DOSE (2X325MG) PO PRN ×3 (06:31→23:27)
[2020-08-13 06:43] VITALS: BP 149/71
[2020-08-13] MEDS: MULTIVITAMINS/MINERALS THERAP 1 TAB PO SCH (08:09)
[2020-08-13] MEDS: FOLIC ACID 1 MG TAB PO SCH (08:11)
[2020-08-13] MEDS: OMEPRAZOLE 20 MG CAP PO SCH (08:11)
[2020-08-13] MEDS: TAMSULOSIN 0.4 MG CAP PO SCH ×2 (08:12→20:24)
[2020-08-13] MEDS: ATORVASTATIN 20 MG TAB PO SCH (08:12)
[2020-08-13] MEDS: FUROSEMIDE 40 MG TAB PO SCH (08:12)
[2020-08-13] MEDS: CARVedilol 12.5 MG TAB PO SCH ×2 (08:12→20:24)
[2020-08-13] MEDS: ASPIRIN 325 MG TAB PO SCH (08:12)
[2020-08-13] MEDS: NICOTINE 21MG/24HR 1 EA TRANSDERMAL TD SCH (08:13)
[2020-08-13] MEDS: FLUoxetine 20 MG CAP PO SCH (08:13)
[2020-08-13 14:00] VITALS: BP 132/77
[2020-08-13] MEDS: MAALOX 30 ML SUSP *UDC PO PRN (15:15)
[2020-08-13 16:39] VITALS: BP 115/64
[2020-08-13] MEDS: QUEtiapine FUMARATE 100 MG TAB PO SCH (20:23)
[2020-08-13 20:45] VITALS: BP 125/80
[2020-08-13] MEDS: zolPIDEM TARTRATE 5 MG TAB PO PRN (22:01)
[2020-08-14] MEDS: hydrOXYzine 25 MG TAB PO PRN ×3 (05:32→16:24)
[2020-08-14] MEDS: ACETAMINOPHEN TAB 650MG DOSE (2X325MG) PO PRN ×3 (05:33→20:15)
[2020-08-14 05:44] VITALS: BP 132/72
[2020-08-14 06:28] VITALS: BP 123/72
--- NOTE | 2020-08-14 07:59 | MHIPN ---
[facility] PROGRESS NOTE DATE: 08/12/2020 The patient today states "I'm not bad." He says that he has not been sleeping well. MENTAL STATUS EXAMINATION: This patient is alert, oriented times three, eye contact is fair, psychomotor activity is normal. He is not psychotic, suicidal, or homicidal. There is no formal thought disorder noted. Concentration is fair. Memory intact. Insight and judgment fair. DIAGNOSES: Other specified depressive disorder. Alcohol use disorder. TREATMENT PLAN: At this point, the patient is stable and will continue with current medications. However, I will increase his Seroquel from 50 to 100 mg to see if that helps him better. He does say that he does have some episodes of anxiety and he feels that using some Zyprexa on an as needed basis has been useful so we will continue that.
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
--- NOTE | 2020-08-14 08:18 | MHIPN ---
[facility] PROGRESS NOTE DATE: 08/13/2020 The patient today states, "I'm not too bad." He says he is getting a bit upset at some of the patients in the unit because he says that they tend to just ramble on. He says he still did not get a good night's sleep and he wants me to prescribe Ambien for him. The patient says that even the increase in the Seroquel last night did not help him sleep better. MENTAL STATUS EXAMINATION: This patient is alert and oriented times three, pleasant and cooperative, verbally spontaneous. Eye contact is good. There is no formal thought disorder. Mood is "not bad." Affect is appropriate to mood. He is not psychotic, suicidal, or homicidal. Concentration and memory is good. Insight and judgment good. DIAGNOSES: At this point, we will continue to further monitor and evaluate the patient for continued elevation and stabilization of his mood and continued resolution of suicidal ideations.
[2020-08-14] MEDS: TAMSULOSIN 0.4 MG CAP PO SCH ×2 (08:24→20:14)
[2020-08-14] MEDS: ASPIRIN 325 MG TAB PO SCH (08:24)
[2020-08-14] MEDS: CARVedilol 12.5 MG TAB PO SCH ×2 (08:25→20:14)
[2020-08-14] MEDS: ATORVASTATIN 20 MG TAB PO SCH (08:25)
[2020-08-14] MEDS: FLUoxetine 20 MG CAP PO SCH (08:26)
[2020-08-14] MEDS: FOLIC ACID 1 MG TAB PO SCH (08:26)
[2020-08-14] MEDS: OMEPRAZOLE 20 MG CAP PO SCH (08:26)
[2020-08-14] MEDS: MULTIVITAMINS/MINERALS THERAP 1 TAB PO SCH (08:26)
[2020-08-14] MEDS: NICOTINE 21MG/24HR 1 EA TRANSDERMAL TD SCH (08:27)
[2020-08-14] MEDS: FUROSEMIDE 40 MG TAB PO SCH (08:29)
[2020-08-14] MEDS: OLANZapine ORAL DISINTEGRATING TAB 5MG PO PRN ×3 (08:45→20:14)
[2020-08-14] MEDS: ANUSOL HC CREAM 30GM TOP PRN ×3 (10:54→20:55)
[2020-08-14] MEDS: MAALOX 30 ML SUSP *UDC PO PRN (14:21)
[2020-08-14 17:54] VITALS: BP 158/89
[2020-08-14] MEDS: QUEtiapine FUMARATE 100 MG TAB PO SCH (20:14)
[2020-08-14 20:53] VITALS: BP 149/79
[2020-08-14] MEDS: zolPIDEM TARTRATE 5 MG TAB PO PRN ×2 (21:41→21:50)
--- NOTE | 2020-08-14 22:11 | IPNPDOC ---
Text Note Date of Service The patient was seen on 08/14/20 at 2145. NOTE I was contacted by the [facility] staff who stated that they had requested a clinical evaluation on Mr. Verma during the day, but that request for evaluation was apparently not answered. I went to the unit to evaluate the patient. He reports that for a little more than two days he has had an increasing rash on his bilateral lower extremities. It is moving in a centripetal direction and he is worried that it will get into his groin and be more uncomfortable. At present it is most pruritis just above his knees on his medial thighs. He states that it is dry and a little itchy over the lower extremities, but it is most symptomatic just above his knee. On examination he has a papular rash that coalesces into plaques in several areas. It is mildly hyperkeratotic and has a slightly rough texture. No ulcerations, vesicles, or discharge. It is most dense on his lower legs and has spread up to his mid-thighs bilaterally. There are no obvious excoriations, though he reports it is itchy. The antecubital fossae are entirely normal, except for mild bruising clearly from blood draws. He denies that the rash is anywhere else on his body. I suspect that this is either an eczematous or contact dermatitis. It is classic for neither. He admits that he has been using different detergents and soaps since he has been here, but he has been admitted 6 days and this just started within the last couple of days. It is not on his upper body, where the clothing is arguably more in contact with his skin. The popliteal fossae are affected, but not more than other areas. His antecubital fossae are not involved. I decided to try both systemic and topical treatment. He already is taking hydroxyzine prn. His nurse reports he takes it roughly twice a day and doesn't get too sedated with it. I moved this to q6h routine. I also added triamcinolone cream for him to use on the most symptomatic areas prn. We will see how this helps. VS,Fishbone, I+O VS, Fishbone, I+O Vital Signs Date Time Temp Pulse Resp B/P (MAP) Pulse Ox O2 Delivery O2 Flow Rate FiO2 08/14/20 20:53 77 149/79 08/14/20 17:54 97.5 18 08/14/20 06:28 99 Room Air Jae Samson MD Aug 14, 2020 22:11
[2020-08-14] MEDS: hydrOXYzine 25 MG TAB PO SCH (23:16)
[2020-08-15] MEDS: ACETAMINOPHEN TAB 650MG DOSE (2X325MG) PO PRN ×3 (03:04→22:51)
[2020-08-15] MEDS: hydrOXYzine 25 MG TAB PO SCH ×4 (05:48→23:02)
[2020-08-15 06:29] VITALS: BP 123/58
[2020-08-15] MEDS: CETIRIZINE (ZyrTEC) 10 MG TAB PO SCH (06:43)
[2020-08-15] MEDS: TRIAMCINOLONE ACET 0.1% CREAM 15 GM TOP PRN ×2 (06:49→16:41)
[2020-08-15] MEDS: TAMSULOSIN 0.4 MG CAP PO SCH ×2 (08:20→20:15)
[2020-08-15] MEDS: ATORVASTATIN 20 MG TAB PO SCH (08:21)
[2020-08-15] MEDS: ASPIRIN 325 MG TAB PO SCH (08:21)
[2020-08-15] MEDS: CARVedilol 12.5 MG TAB PO SCH ×2 (08:21→20:18)
[2020-08-15] MEDS: FLUoxetine 20 MG CAP PO SCH (08:22)
[2020-08-15] MEDS: OMEPRAZOLE 20 MG CAP PO SCH (08:22)
[2020-08-15] MEDS: FUROSEMIDE 40 MG TAB PO SCH (08:24)
[2020-08-15] MEDS: NICOTINE 21MG/24HR 1 EA TRANSDERMAL TD SCH (08:25)
--- NOTE | 2020-08-15 09:11 | MHIPNPDOC ---
[facility] Progress Note Progress Note DATE OF SERVICE: 08/15/20 HISTORY: The patient is met with today, he reports that his depression is better controlled and that he is tolerating the medications well. He continues to w orry about getting a rehab bed, reporting that he wants to continue to work on various parts of his mental health and alcohol problems. Staff report that generally he appears to be somewhat hypercritical of others and generally demeaning at times. However, does not have any significant behavioral problems, attends groups at times. VITAL SIGNS: See below. NEW TEST RESULTS: None. CURRENT MEDICATIONS: See below. MENTAL STATUS EXAMINATION: General: Fair, with hair well-groomed Speech: [Spontaneous and fluid] Thought processes: [Linear and logical] Thought content: [Future orientated] Abstract reasoning, and computation: [Intact] Description of associations: [Intact] Description of abnormal or psychotic thoughts:[Denies any suicidal or homicidal ideation. Denies any auditory or visual hallucinations. Does not appear to be responding to internal stimuli. Does not appear to be endorsing any bizarre or paranoid ideation.] Judgment: [Fair] Insight: [Fair] Orientation: [Alert and orientated 3] Recent and remote memory: [Intact] Attention span and concentration: [Intact] Fund of knowledge: [Adequate] Mood: "fine" Affect: Improved, less dysthymic and constricted DIAGNOSES: 1. Unspecified depressive disorder. 2. Alcohol use disorder, severe. ASSESSMENT: The patient appears to be making progress, however his safe discharge plan will include likely improving his ability to cope with various stressors as well as his sobriety which appears to be a major problem for him. MANAGEMENT PLAN: Will continue current medications including Prozac, Seroquel and hydroxyzine as below without any changes. TIME SPENT: 15 minutes. Vital Signs Vital Signs Date Time Temp Pulse Resp B/P (MAP) Pulse Ox O2 Delivery O2 Flow Rate FiO2 08/15/20 08:21 53 123/58 08/15/20 06:29 97.2 16 98 Room Air Current Medications Current Medications Medications (Trade) Dose Ordered Sig/Ava Route PRN Reason Start Time Stop Time Status Last Admin Dose Admin Acetaminophen (Tylenol Tab) 650 mg Q6HP PRN PO HEADACHE or DISCOMFORT 08/09/20 06:30 08/15/20 03:04 Al Hydrox/Mg Hydrox/Simethicone (Mylanta) 30 ml Q4HP PRN PO HEARTBURN/INDIGESTION 08/09/20 06:30 08/14/20 14:21 Aspirin (Aspirin) 325 mg DAILY PO 08/10/20 09:00 08/15/20 08:21 Atorvastatin Calcium (Lipitor) 80 mg DAILY PO 08/10/20 09:00 08/15/20 08:21 Calcium Carbonate (Tums) 1,000 mg BIDP PRN PO HEARTBURN 08/11/20 14:15 08/11/20 20:45 Carvedilol (COReg) 12.5 mg BID PO 08/10/20 21:00 08/15/20 08:21 Cetirizine HCl (ZyrTEC) 10 mg DAILY PO 08/15/20 06:45 08/15/20 06:43 Fluoxetine HCl (PROzac) 10 mg DAILY PO 08/10/20 09:00 08/11/20 18:53 DC 08/11/20 08:36 Fluoxetine HCl (PROzac) 20 mg DAILY PO 08/12/20 09:00 08/15/20 08:22 Folic Acid (Folic Acid) 1 mg DAILY PO 08/09/20 09:00 08/15/20 05:13 DC 08/14/20 08:26 Furosemide (Lasix) 40 mg DAILY PO 08/10/20 09:00 08/13/20 08:12 Home Med (Med Rec Complete!) ASDIRECTED XX 08/09/20 08:45 08/09/20 08:37 DC Hydrocortisone (Proctosol Hc) rectal area BIDP PRN TOP discomfort 08/10/20 18:00 08/11/20 14:05 DC 08/11/20 08:40 Hydrocortisone (Proctosol Hc) rectal area QIDP PRN TOP discomfort 08/11/20 14:00 08/14/20 20:55 Hydrocortisone Acetate (Anusol Hc Supp) 25 mg BID AL 08/10/20 17:00 08/10/20 17:54 DC Hydroxyzine HCl (Atarax) 25 mg Q4HP PRN PO ANXIETY/AGITATION 08/09/20 14:45 08/14/20 21:57 DC 08/14/20 16:24 Hydroxyzine HCl (Atarax) 25 mg Q6H PO 08/15/20 00:00 08/15/20 05:48 Lorazepam (Ativan) 1 mg STAT STAT PO 08/08/20 21:10 08/08/20 21:11 DC 08/08/20 21:33 Lorazepam (Ativan) 2 mg ASDIRECTED PRN PO SEE PROTOCOL 08/09/20 06:30 08/15/20 05:13 DC 08/10/20 01:57 Magnesium Hydroxide (Milk Of Magnesia) 30 ml DAILYPRN PRN PO CONSTIPATION 08/09/20 06:30 Multivitamins (Theragram-M) 1 tab DAILY PO 08/09/20 09:00 08/15/20 05:13 DC 08/14/20 08:26 Nicotine (Nicoderm Cq 21mg) 1 patch DAILY TD 08/10/20 09:00 08/15/20 08:25 Olanzapine (ZyPREXA ZYDIS) 5 mg Q4HP PRN PO ANXIETY/AGITATION 08/12/20 00:15 08/14/20 20:14 Omeprazole (PriLOSEC) 20 mg DAILY PO 08/11/20 09:00 08/11/20 14:04 DC 08/11/20 08:35 Omeprazole (PriLOSEC) 40 mg DAILY PO 08/12/20 09:00 08/15/20 08:22 Quetiapine Fumarate (SEROquel) 25 mg QHSP PRN PO anxiety/ insomnia 08/09/20 14:45 08/10/20 18:41 DC 08/09/20 20:28 Quetiapine Fumarate (SEROquel) 50 mg QHS PRN PO insomnia 08/10/20 18:45 08/12/20 14:10 DC 08/11/20 20:46 Quetiapine Fumarate (SEROquel) 100 mg QHS PO 08/12/20 21:00 08/14/20 20:14 Tamsulosin HCl (Flomax) 0.4 mg BID PO 08/10/20 21:00 08/15/20 08:20 Thiamine HCl (Thiamine HCl) 100 mg BID PO 08/09/20 09:00 08/12/20 08:59 DC 08/11/20 20:45 Trazodone HCl (Desyrel) 50 mg QHSP PRN PO INSOMNIA 08/09/20 06:30 08/12/20 22:29 Triamcinolone Acetonide (Kenalog 0.1% Cream) apply to the most symptoma... BIDP PRN TOP itching 08/14/20 22:00 08/15/20 06:49 Zolpidem Tartrate (Ambien) 10 mg QHSP PRN PO insomnia 08/13/20 21:30 08/14/20 21:50 Allergies Coded Allergies: Nrbninh-Mxi-Ojh Reductase Inhibitor (Verified Allergy, Severe, FACIAL REDNESS AND TINGLING, 03/22/19) niacin (Verified Adverse Reaction, Intermediate, CHEST PAIN AND FLUSHING, 03/22/19) hydrocodone (Verified Adverse Reaction, Mild, GI UPSET, 03/22/19) prednisone (Verified Adverse Reaction, Mild, MOOD CHANGE, 03/22/19) HAYDEN ASKEW DO Aug 15, 2020 09:11
[2020-08-15] MEDS: ANUSOL HC CREAM 30GM TOP PRN ×2 (13:30→20:15)
[2020-08-15] MEDS: OLANZapine ORAL DISINTEGRATING TAB 5MG PO PRN (13:31)
[2020-08-15 16:00] VITALS: BP 136/73
[2020-08-15] MEDS: MAALOX 30 ML SUSP *UDC PO PRN (16:40)
[2020-08-15] MEDS: QUEtiapine FUMARATE 100 MG TAB PO SCH (20:15)
[2020-08-15] MEDS: zolPIDEM TARTRATE 5 MG TAB PO PRN (20:15)
[2020-08-16] MEDS: hydrOXYzine 25 MG TAB PO SCH ×3 (05:02→17:31)
[2020-08-16] MEDS: OLANZapine ORAL DISINTEGRATING TAB 5MG PO PRN ×3 (05:02→20:30)
[2020-08-16] MEDS: ACETAMINOPHEN TAB 650MG DOSE (2X325MG) PO PRN ×3 (05:03→17:31)
[2020-08-16] MEDS: TRIAMCINOLONE ACET 0.1% CREAM 15 GM TOP PRN (05:12)
[2020-08-16 06:30] VITALS: BP 117/70
[2020-08-16] MEDS: TAMSULOSIN 0.4 MG CAP PO SCH ×2 (08:15→20:31)
[2020-08-16] MEDS: CETIRIZINE (ZyrTEC) 10 MG TAB PO SCH (08:15)
[2020-08-16] MEDS: ASPIRIN 325 MG TAB PO SCH (08:16)
[2020-08-16] MEDS: ATORVASTATIN 20 MG TAB PO SCH (08:16)
[2020-08-16] MEDS: FLUoxetine 20 MG CAP PO SCH (08:16)
[2020-08-16] MEDS: CARVedilol 12.5 MG TAB PO SCH ×2 (08:16→20:31)
[2020-08-16] MEDS: NICOTINE 21MG/24HR 1 EA TRANSDERMAL TD SCH (08:17)
[2020-08-16] MEDS: OMEPRAZOLE 20 MG CAP PO SCH (08:17)
[2020-08-16] MEDS: FUROSEMIDE 40 MG TAB PO SCH (09:00)
[2020-08-16] MEDS: ANUSOL HC CREAM 30GM TOP PRN ×2 (09:19→17:32)
[2020-08-16] MEDS: MAALOX 30 ML SUSP *UDC PO PRN ×2 (09:20→20:30)
--- NOTE | 2020-08-16 11:12 | MHIPNPDOC ---
[facility] Progress Note Progress Note DATE OF SERVICE: 08/16/20 HISTORY: The patient has met with today, he reports he is feeling well and that he has made some improvements, he describes that he is very open to going to [facility] and has been helping to try to figure out a spot that he feels would be most appropriate for his needs. He reports that although sometimes he tends to be judgmental that he realizes he must change some parts of himself to do better. He has no complaints and has generally had no major behavioral problems VITAL SIGNS: See below. NEW TEST RESULTS: None. CURRENT MEDICATIONS: See below. MENTAL STATUS EXAMINATION: General: Fair, with hair well-groomed Speech: [Spontaneous and fluid] Thought processes: [Linear and logical] Thought content: [Future orientated] Abstract reasoning, and computation: [Intact] Description of associations: [Intact] Description of abnormal or psychotic thoughts:[Denies any suicidal or homicidal ideation. Denies any auditory or visual hallucinations. Does not appear to be responding to internal stimuli. Does not appear to be endorsing any bizarre or paranoid ideation.] Judgment: [Fair] Insight: [Fair] Orientation: [Alert and orientated 3] Recent and remote memory: [Intact] Attention span and concentration: [Intact] Fund of knowledge: [Adequate] Mood: "fine" Affect: Improved, less dysthymic and constricted DIAGNOSES: 1. Unspecified depressive disorder. 2. Alcohol use disorder, severe. ASSESSMENT: Will attempt to place patient to rehab it appears that there are multiple spots open and this would be most appropriate as he does not have a safe discharge otherwise MANAGEMENT PLAN: Will continue current medications including Prozac, Seroquel and hydroxyzine as below without any changes. TIME SPENT: 15 minutes. Vital Signs Vital Signs Date Time Temp Pulse Resp B/P (MAP) Pulse Ox O2 Delivery O2 Flow Rate FiO2 08/16/20 08:16 72 117/70 08/16/20 06:30 97.3 18 98 Room Air Current Medications Current Medications Medications (Trade) Dose Ordered Sig/Ava Route PRN Reason Start Time Stop Time Status Last Admin Dose Admin Acetaminophen (Tylenol Tab) 650 mg Q6HP PRN PO HEADACHE or DISCOMFORT 08/09/20 06:30 08/16/20 05:03 Al Hydrox/Mg Hydrox/Simethicone (Mylanta) 30 ml Q4HP PRN PO HEARTBURN/INDIGESTION 08/09/20 06:30 08/16/20 09:20 Aspirin (Aspirin) 325 mg DAILY PO 08/10/20 09:00 08/16/20 08:16 Atorvastatin Calcium (Lipitor) 80 mg DAILY PO 08/10/20 09:00 08/16/20 08:16 Calcium Carbonate (Tums) 1,000 mg BIDP PRN PO HEARTBURN 08/11/20 14:15 08/11/20 20:45 Carvedilol (COReg) 12.5 mg BID PO 08/10/20 21:00 08/16/20 08:16 Cetirizine HCl (ZyrTEC) 10 mg DAILY PO 08/15/20 06:45 08/16/20 08:15 Fluoxetine HCl (PROzac) 10 mg DAILY PO 08/10/20 09:00 08/11/20 18:53 DC 08/11/20 08:36 Fluoxetine HCl (PROzac) 20 mg DAILY PO 08/12/20 09:00 08/16/20 08:16 Folic Acid (Folic Acid) 1 mg DAILY PO 08/09/20 09:00 08/15/20 05:13 DC 08/14/20 08:26 Furosemide (Lasix) 40 mg DAILY PO 08/10/20 09:00 08/13/20 08:12 Home Med (Med Rec Complete!) ASDIRECTED XX 08/09/20 08:45 08/09/20 08:37 DC Hydrocortisone (Proctosol Hc) rectal area BIDP PRN TOP discomfort 08/10/20 18:00 08/11/20 14:05 DC 08/11/20 08:40 Hydrocortisone (Proctosol Hc) rectal area QIDP PRN TOP discomfort 08/11/20 14:00 08/16/20 09:19 Hydrocortisone Acetate (Anusol Hc Supp) 25 mg BID AR 08/10/20 17:00 08/10/20 17:54 DC Hydroxyzine HCl (Atarax) 25 mg Q4HP PRN PO ANXIETY/AGITATION 08/09/20 14:45 08/14/20 21:57 DC 08/14/20 16:24 Hydroxyzine HCl (Atarax) 25 mg Q6H PO 08/15/20 00:00 08/16/20 05:02 Lorazepam (Ativan) 1 mg STAT STAT PO 08/08/20 21:10 08/08/20 21:11 DC 08/08/20 21:33 Lorazepam (Ativan) 2 mg ASDIRECTED PRN PO SEE PROTOCOL 08/09/20 06:30 08/15/20 05:13 DC 08/10/20 01:57 Magnesium Hydroxide (Milk Of Magnesia) 30 ml DAILYPRN PRN PO CONSTIPATION 08/09/20 06:30 Multivitamins (Theragram-M) 1 tab DAILY PO 08/09/20 09:00 08/15/20 05:13 DC 08/14/20 08:26 Nicotine (Nicoderm Cq 21mg) 1 patch DAILY TD 08/10/20 09:00 08/16/20 08:17 Olanzapine (ZyPREXA ZYDIS) 5 mg Q4HP PRN PO ANXIETY/AGITATION 08/12/20 00:15 08/16/20 09:21 Omeprazole (PriLOSEC) 20 mg DAILY PO 08/11/20 09:00 08/11/20 14:04 DC 08/11/20 08:35 Omeprazole (PriLOSEC) 40 mg DAILY PO 08/12/20 09:00 08/16/20 08:17 Quetiapine Fumarate (SEROquel) 25 mg QHSP PRN PO anxiety/ insomnia 08/09/20 14:45 08/10/20 18:41 DC 08/09/20 20:28 Quetiapine Fumarate (SEROquel) 50 mg QHS PRN PO insomnia 08/10/20 18:45 08/12/20 14:10 DC 08/11/20 20:46 Quetiapine Fumarate (SEROquel) 100 mg QHS PO 08/12/20 21:00 08/15/20 20:15 Tamsulosin HCl (Flomax) 0.4 mg BID PO 08/10/20 21:00 08/16/20 08:15 Thiamine HCl (Thiamine HCl) 100 mg BID PO 08/09/20 09:00 08/12/20 08:59 DC 08/11/20 20:45 Trazodone HCl (Desyrel) 50 mg QHSP PRN PO INSOMNIA 08/09/20 06:30 08/12/20 22:29 Triamcinolone Acetonide (Kenalog 0.1% Cream) apply to the most symptoma... BIDP PRN TOP itching 08/14/20 22:00 08/16/20 05:12 Zolpidem Tartrate (Ambien) 10 mg QHSP PRN PO insomnia 08/13/20 21:30 08/15/20 20:15 Allergies Coded Allergies: [id number]-Slm Reductase Inhibitor (Verified Allergy, Severe, FACIAL REDNESS AND TINGLING, 03/22/19) niacin (Verified Adverse Reaction, Intermediate, CHEST PAIN AND FLUSHING, 03/22/19) hydrocodone (Verified Adverse Reaction, Mild, GI UPSET, 03/22/19) prednisone (Verified Adverse Reaction, Mild, MOOD CHANGE, 03/22/19) HAYDEN ASKEW DO Aug 16, 2020 11:12
[2020-08-16] MEDS: CALCIUM CARBONATE 500 MG CHEW U/D PO PRN (14:32)
[2020-08-16] MEDS: traZODone 50 MG TAB PO PRN (20:30)
[2020-08-16] MEDS: zolPIDEM TARTRATE 5 MG TAB PO PRN (20:31)
[2020-08-16] MEDS: QUEtiapine FUMARATE 100 MG TAB PO SCH (20:31)
[2020-08-17] MEDS: hydrOXYzine 25 MG TAB PO SCH ×5 (02:24→23:37)
[2020-08-17] MEDS: ACETAMINOPHEN TAB 650MG DOSE (2X325MG) PO PRN ×4 (02:25→22:27)
[2020-08-17] MEDS: CALCIUM CARBONATE 500 MG CHEW U/D PO PRN ×2 (06:29→12:38)
[2020-08-17 06:30] VITALS: BP 140/74
[2020-08-17] MEDS: TAMSULOSIN 0.4 MG CAP PO SCH ×2 (08:18→21:01)
[2020-08-17] MEDS: CETIRIZINE (ZyrTEC) 10 MG TAB PO SCH (08:18)
[2020-08-17] MEDS: CARVedilol 12.5 MG TAB PO SCH ×2 (08:19→21:01)
[2020-08-17] MEDS: ATORVASTATIN 20 MG TAB PO SCH (08:19)
[2020-08-17] MEDS: ASPIRIN 325 MG TAB PO SCH (08:19)
[2020-08-17] MEDS: MAALOX 30 ML SUSP *UDC PO PRN (08:20)
[2020-08-17] MEDS: FLUoxetine 20 MG CAP PO SCH (08:20)
[2020-08-17] MEDS: NICOTINE 21MG/24HR 1 EA TRANSDERMAL TD SCH (08:20)
[2020-08-17] MEDS: OMEPRAZOLE 20 MG CAP PO SCH (08:20)
[2020-08-17] MEDS: ANUSOL HC CREAM 30GM TOP PRN ×2 (08:21→21:00)
[2020-08-17] MEDS: FUROSEMIDE 40 MG TAB PO SCH (09:00)
[2020-08-17] MEDS: OLANZapine ORAL DISINTEGRATING TAB 5MG PO PRN ×3 (10:02→22:27)
--- NOTE | 2020-08-17 14:26 | MHIPNPDOC ---
[facility] Progress Note Progress Note DATE OF SERVICE: 08/17/20 HISTORY: The patient is met with today, he reports he is generally doing well without major problems, he reports [facility] he reports the medication helpful and that he has been doing well. He does appear to given Ambien previously overnight for insomnia, which may be a problem for rehabilitation, however he reports that he is been sleeping better and is otherwise improved. Has no complaints of his medications has been attending groups and otherwise not problematic for any nurses and has been am enable to staff interventions. VITAL SIGNS: See below. NEW TEST RESULTS: None. CURRENT MEDICATIONS: See below. MENTAL STATUS EXAMINATION: General: Fair, with hair well-groomed Speech: [Spontaneous and fluid] Thought processes: [Linear and logical] Thought content: [Future orientated] Abstract reasoning, and computation: [Intact] Description of associations: [Intact] Description of abnormal or psychotic thoughts:[Denies any suicidal or homicidal ideation. Denies any auditory or visual hallucinations. Does not appear to be responding to internal stimuli. Does not appear to be endorsing any bizarre or paranoid ideation.] Judgment: [Fair] Insight: [Fair] Orientation: [Alert and orientated 3] Recent and remote memory: [Intact] Attention span and concentration: [Intact] Fund of knowledge: [Adequate] Mood: "fine" Affect: Euthymic DIAGNOSES: 1. Unspecified depressive disorder. 2. Alcohol use disorder, severe. ASSESSMENT: Patient will need to be triaged into rehabilitation he has no safe discharge otherwise and without sufficient DSS housing due to some for right ear problems, rehabilitation would be the safest option and we will triaged him carefully into it. MANAGEMENT PLAN: Will continue current medications including Prozac, Seroquel and hydroxyzine as below without any changes. TIME SPENT: 15 minutes. Vital Signs Vital Signs Date Time Temp Pulse Resp B/P (MAP) Pulse Ox O2 Delivery O2 Flow Rate FiO2 08/17/20 08:19 86 140/74 08/17/20 06:30 97.0 20 98 Room Air Current Medications Current Medications Medications (Trade) Dose Ordered Sig/Ava Route PRN Reason Start Time Stop Time Status Last Admin Dose Admin Acetaminophen (Tylenol Tab) 650 mg Q6HP PRN PO HEADACHE or DISCOMFORT 08/09/20 06:30 08/17/20 10:02 Al Hydrox/Mg Hydrox/Simethicone (Mylanta) 30 ml Q4HP PRN PO HEARTBURN/INDIGESTION 08/09/20 06:30 08/17/20 08:20 Aspirin (Aspirin) 325 mg DAILY PO 08/10/20 09:00 08/17/20 08:19 Atorvastatin Calcium (Lipitor) 80 mg DAILY PO 08/10/20 09:00 08/17/20 08:19 Calcium Carbonate (Tums) 1,000 mg BIDP PRN PO HEARTBURN 08/11/20 14:15 08/17/20 12:38 Carvedilol (COReg) 12.5 mg BID PO 08/10/20 21:00 08/17/20 08:19 Cetirizine HCl (ZyrTEC) 10 mg DAILY PO 08/15/20 06:45 08/17/20 08:18 Fluoxetine HCl (PROzac) 10 mg DAILY PO 08/10/20 09:00 08/11/20 18:53 DC 08/11/20 08:36 Fluoxetine HCl (PROzac) 20 mg DAILY PO 08/12/20 09:00 08/17/20 08:20 Folic Acid (Folic Acid) 1 mg DAILY PO 08/09/20 09:00 08/15/20 05:13 DC 08/14/20 08:26 Furosemide (Lasix) 40 mg DAILY PO 08/10/20 09:00 08/13/20 08:12 Home Med (Med Rec Complete!) ASDIRECTED XX 08/09/20 08:45 08/09/20 08:37 DC Hydrocortisone (Proctosol Hc) rectal area BIDP PRN TOP discomfort 08/10/20 18:00 08/11/20 14:05 DC 08/11/20 08:40 Hydrocortisone (Proctosol Hc) rectal area QIDP PRN TOP discomfort 08/11/20 14:00 08/17/20 08:21 Hydrocortisone Acetate (Anusol Hc Supp) 25 mg BID IA 08/10/20 17:00 08/10/20 17:54 DC Hydroxyzine HCl (Atarax) 25 mg Q4HP PRN PO ANXIETY/AGITATION 08/09/20 14:45 08/14/20 21:57 DC 08/14/20 16:24 Hydroxyzine HCl (Atarax) 25 mg Q6H PO 08/15/20 00:00 08/17/20 12:36 Lorazepam (Ativan) 1 mg STAT STAT PO 08/08/20 21:10 08/08/20 21:11 DC 08/08/20 21:33 Lorazepam (Ativan) 2 mg ASDIRECTED PRN PO SEE PROTOCOL 08/09/20 06:30 08/15/20 05:13 DC 08/10/20 01:57 Magnesium Hydroxide (Milk Of Magnesia) 30 ml DAILYPRN PRN PO CONSTIPATION 08/09/20 06:30 Multivitamins (Theragram-M) 1 tab DAILY PO 08/09/20 09:00 08/15/20 05:13 DC 08/14/20 08:26 Nicotine (Nicoderm Cq 21mg) 1 patch DAILY TD 08/10/20 09:00 08/17/20 08:20 Olanzapine (ZyPREXA ZYDIS) 5 mg Q4HP PRN PO ANXIETY/AGITATION 08/12/20 00:15 08/17/20 10:02 Omeprazole (PriLOSEC) 20 mg DAILY PO 08/11/20 09:00 08/11/20 14:04 DC 08/11/20 08:35 Omeprazole (PriLOSEC) 40 mg DAILY PO 08/12/20 09:00 08/17/20 08:20 Quetiapine Fumarate (SEROquel) 25 mg QHSP PRN PO anxiety/ insomnia 08/09/20 14:45 08/10/20 18:41 DC 08/09/20 20:28 Quetiapine Fumarate (SEROquel) 50 mg QHS PRN PO insomnia 08/10/20 18:45 08/12/20 14:10 DC 08/11/20 20:46 Quetiapine Fumarate (SEROquel) 100 mg QHS PO 08/12/20 21:00 08/16/20 20:31 Tamsulosin HCl (Flomax) 0.4 mg BID PO 08/10/20 21:00 08/17/20 08:18 Thiamine HCl (Thiamine HCl) 100 mg BID PO 08/09/20 09:00 08/12/20 08:59 DC 08/11/20 20:45 Trazodone HCl (Desyrel) 50 mg QHSP PRN PO INSOMNIA 08/09/20 06:30 08/16/20 20:30 Triamcinolone Acetonide (Kenalog 0.1% Cream) apply to the most symptoma... BIDP PRN TOP itching 08/14/20 22:00 08/16/20 05:12 Zolpidem Tartrate (Ambien) 10 mg QHSP PRN PO insomnia 08/13/20 21:30 08/16/20 20:31 Allergies Coded Allergies: Aqchgzq-Klj-Xbn Reductase Inhibitor (Verified Allergy, Severe, FACIAL REDNESS AND TINGLING, 03/22/19) niacin (Verified Adverse Reaction, Intermediate, CHEST PAIN AND FLUSHING, 03/22/19) hydrocodone (Verified Adverse Reaction, Mild, GI UPSET, 03/22/19) prednisone (Verified Adverse Reaction, Mild, MOOD CHANGE, 03/22/19) HAYDEN ASKEW DO Aug 17, 2020 14:26
[2020-08-17 16:39] VITALS: BP 132/72
[2020-08-17] MEDS: TRIAMCINOLONE ACET 0.1% CREAM 15 GM TOP PRN (21:00)
[2020-08-17] MEDS: QUEtiapine FUMARATE 100 MG TAB PO SCH (21:01)
[2020-08-17] MEDS: zolPIDEM TARTRATE 5 MG TAB PO PRN (21:01)
[2020-08-17] MEDS: VANICREAM MOISTURIZING SKIN CREAM 113GM TUBE TOP SCH (23:37)
[2020-08-18] MEDS: ACETAMINOPHEN TAB 650MG DOSE (2X325MG) PO PRN ×3 (04:28→20:13)
[2020-08-18] MEDS: OLANZapine ORAL DISINTEGRATING TAB 5MG PO PRN ×3 (04:28→20:13)
[2020-08-18] MEDS: hydrOXYzine 25 MG TAB PO SCH ×3 (05:14→17:03)
[2020-08-18] MEDS: MAALOX 30 ML SUSP *UDC PO PRN ×2 (05:41→21:38)
[2020-08-18 06:54] VITALS: BP 135/63
[2020-08-18] MEDS: CETIRIZINE (ZyrTEC) 10 MG TAB PO SCH (08:11)
[2020-08-18] MEDS: TAMSULOSIN 0.4 MG CAP PO SCH ×2 (08:11→20:14)
[2020-08-18] MEDS: ASPIRIN 325 MG TAB PO SCH (08:12)
[2020-08-18] MEDS: CARVedilol 12.5 MG TAB PO SCH ×2 (08:13→20:14)
[2020-08-18] MEDS: ATORVASTATIN 20 MG TAB PO SCH (08:14)
[2020-08-18] MEDS: VANICREAM MOISTURIZING SKIN CREAM 113GM TUBE TOP SCH ×3 (08:14→20:12)
[2020-08-18] MEDS: FLUoxetine 20 MG CAP PO SCH (08:15)
[2020-08-18] MEDS: OMEPRAZOLE 20 MG CAP PO SCH (08:15)
[2020-08-18] MEDS: NICOTINE 21MG/24HR 1 EA TRANSDERMAL TD SCH (08:17)
[2020-08-18] MEDS: FUROSEMIDE 40 MG TAB PO SCH (08:17)
--- NOTE | 2020-08-18 12:15 | MHIPNPDOC ---
[facility] Progress Note Progress Note DATE OF SERVICE: 08/18/20 HISTORY: The patient has met with today he is very open to going to rehab on Friday, feeling encouraged about the situation. He describes he has no problems with his depression and feels much improved. VITAL SIGNS: See below. NEW TEST RESULTS: None. CURRENT MEDICATIONS: See below. MENTAL STATUS EXAMINATION: General: Fair, with hair well-groomed Speech: [Spontaneous and fluid] Thought processes: [Linear and logical] Thought content: [Future orientated] Abstract reasoning, and computation: [Intact] Description of associations: [Intact] Description of abnormal or psychotic thoughts:[Denies any suicidal or homicidal ideation. Denies any auditory or visual hallucinations. Does not appear to be responding to internal stimuli. Does not appear to be endorsing any bizarre or paranoid ideation.] Judgment: [Fair] Insight: [Fair] Orientation: [Alert and orientated 3] Recent and remote memory: [Intact] Attention span and concentration: [Intact] Fund of knowledge: [Adequate] Mood: "fine" Affect: Euthymic DIAGNOSES: 1. Unspecified depressive disorder. 2. Alcohol use disorder, severe. 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 TIME SPENT: 15 minutes. Vital Signs Vital Signs Date Time Temp Pulse Resp B/P (MAP) Pulse Ox O2 Delivery O2 Flow Rate FiO2 08/18/20 08:13 63 135/63 08/18/20 06:54 97.1 16 100 Room Air Current Medications Current Medications Medications (Trade) Dose Ordered Sig/Ava Route PRN Reason Start Time Stop Time Status Last Admin Dose Admin Acetaminophen (Tylenol Tab) 650 mg Q6HP PRN PO HEADACHE or DISCOMFORT 08/09/20 06:30 08/18/20 12:02 Al Hydrox/Mg Hydrox/Simethicone (Mylanta) 30 ml Q4HP PRN PO HEARTBURN/INDIGESTION 08/09/20 06:30 08/18/20 05:41 Aspirin (Aspirin) 325 mg DAILY PO 08/10/20 09:00 08/18/20 08:12 Atorvastatin Calcium (Lipitor) 80 mg DAILY PO 08/10/20 09:00 08/18/20 08:14 Calcium Carbonate (Tums) 1,000 mg BIDP PRN PO HEARTBURN 08/11/20 14:15 08/17/20 12:38 Carvedilol (COReg) 12.5 mg BID PO 08/10/20 21:00 08/18/20 08:13 Cetirizine HCl (ZyrTEC) 10 mg DAILY PO 08/15/20 06:45 08/18/20 08:11 Emollient Cream (Vanicream) Apply to hands TID TOP 08/17/20 21:00 08/18/20 08:14 Fluoxetine HCl (PROzac) 10 mg DAILY PO 08/10/20 09:00 08/11/20 18:53 DC 08/11/20 08:36 Fluoxetine HCl (PROzac) 20 mg DAILY PO 08/12/20 09:00 08/18/20 08:15 Folic Acid (Folic Acid) 1 mg DAILY PO 08/09/20 09:00 08/15/20 05:13 DC 08/14/20 08:26 Furosemide (Lasix) 40 mg DAILY PO 08/10/20 09:00 08/13/20 08:12 Home Med (Med Rec Complete!) ASDIRECTED XX 08/09/20 08:45 08/09/20 08:37 DC Hydrocortisone (Proctosol Hc) rectal area BIDP PRN TOP discomfort 08/10/20 18:00 08/11/20 14:05 DC 08/11/20 08:40 Hydrocortisone (Proctosol Hc) rectal area QIDP PRN TOP discomfort 08/11/20 14:00 08/17/20 21:00 Hydrocortisone Acetate (Anusol Hc Supp) 25 mg BID AL 08/10/20 17:00 08/10/20 17:54 DC Hydroxyzine HCl (Atarax) 25 mg Q4HP PRN PO ANXIETY/AGITATION 08/09/20 14:45 08/14/20 21:57 DC 08/14/20 16:24 Hydroxyzine HCl (Atarax) 25 mg Q6H PO 08/15/20 00:00 08/18/20 12:01 Lorazepam (Ativan) 1 mg STAT STAT PO 08/08/20 21:10 08/08/20 21:11 DC 08/08/20 21:33 Lorazepam (Ativan) 2 mg ASDIRECTED PRN PO SEE PROTOCOL 08/09/20 06:30 08/15/20 05:13 DC 08/10/20 01:57 Magnesium Hydroxide (Milk Of Magnesia) 30 ml DAILYPRN PRN PO CONSTIPATION 08/09/20 06:30 Multivitamins (Theragram-M) 1 tab DAILY PO 08/09/20 09:00 08/15/20 05:13 DC 08/14/20 08:26 Nicotine (Nicoderm Cq 21mg) 1 patch DAILY TD 08/10/20 09:00 08/18/20 08:17 Olanzapine (ZyPREXA ZYDIS) 5 mg Q4HP PRN PO ANXIETY/AGITATION 08/12/20 00:15 08/18/20 04:28 Omeprazole (PriLOSEC) 20 mg DAILY PO 08/11/20 09:00 08/11/20 14:04 DC 08/11/20 08:35 Omeprazole (PriLOSEC) 40 mg DAILY PO 08/12/20 09:00 08/18/20 08:15 Quetiapine Fumarate (SEROquel) 25 mg QHSP PRN PO anxiety/ insomnia 08/09/20 14:45 08/10/20 18:41 DC 08/09/20 20:28 Quetiapine Fumarate (SEROquel) 50 mg QHS PRN PO insomnia 08/10/20 18:45 08/12/20 14:10 DC 08/11/20 20:46 Quetiapine Fumarate (SEROquel) 100 mg QHS PO 08/12/20 21:00 08/17/20 21:01 Tamsulosin HCl (Flomax) 0.4 mg BID PO 08/10/20 21:00 08/18/20 08:11 Thiamine HCl (Thiamine HCl) 100 mg BID PO 08/09/20 09:00 08/12/20 08:59 DC 08/11/20 20:45 Trazodone HCl (Desyrel) 50 mg QHSP PRN PO INSOMNIA 08/09/20 06:30 08/16/20 20:30 Triamcinolone Acetonide (Kenalog 0.1% Cream) apply to the most symptoma... BIDP PRN TOP itching 08/14/20 22:00 08/17/20 21:00 Zolpidem Tartrate (Ambien) 10 mg QHSP PRN PO insomnia 08/13/20 21:30 08/17/20 21:01 Allergies Coded Allergies: Lbqopxi-Loi-Zwz Reductase Inhibitor (Verified Allergy, Severe, FACIAL REDNESS AND TINGLING, 03/22/19) niacin (Verified Adverse Reaction, Intermediate, CHEST PAIN AND FLUSHING, 03/22/19) hydrocodone (Verified Adverse Reaction, Mild, GI UPSET, 03/22/19) prednisone (Verified Adverse Reaction, Mild, MOOD CHANGE, 03/22/19) HAYDEN ASKEW DO Aug 18, 2020 12:15
[2020-08-18] MEDS: CALCIUM CARBONATE 500 MG CHEW U/D PO PRN (13:48)
[2020-08-18 18:00] VITALS: BP 124/71
[2020-08-18] MEDS: traZODone 50 MG TAB PO PRN (20:13)
[2020-08-18] MEDS: QUEtiapine FUMARATE 100 MG TAB PO SCH (20:13)
[2020-08-18 22:33] VITALS: BP 148/73
[2020-08-18] MEDS ORDERED: ONDANSETRON 4 MG ORAL DISINTEGRATING TAB SL ONE (22:45)
[2020-08-18 23:46] LABS: RSV AMPLIFICATION NEGATIVE (NEGATIVE)
[2020-08-19] MEDS: hydrOXYzine 25 MG TAB PO SCH ×4 (00:17→17:10)
[2020-08-19] MEDS: CALCIUM CARBONATE 500 MG CHEW U/D PO PRN (00:17)
[2020-08-19] MEDS: OLANZapine ORAL DISINTEGRATING TAB 5MG PO PRN ×2 (01:29→20:21)
[2020-08-19] MEDS: ACETAMINOPHEN TAB 650MG DOSE (2X325MG) PO PRN ×2 (03:01→22:04)
--- NOTE | 2020-08-19 03:53 | HPEPDOC ---
[facility] Medical History & Physical Date of Admission Aug 19, 2020 Date of Service: Aug 19, 2020 Attending Physician: LUIS ROMERO MD History and Physical TIME OF SERVICE: 12:05 CHIEF COMPLAINT: Rash HISTORY OF PRESENT ILLNESS: This 55 yr old M was admitted to [facility] on August 12 for management of depression with suicidal ideation; he was evaluated by Dr. Earl on August 10. Yesterday evening was contacted by one of the nurses because the patient was complaining of nausea, and a rash that hadn't improved despite taking cetirizine. The itchy rash is on the dorsal surface of his hands extending up to the lower arms and lower legs extending up to the medial thighs. The patient denied eating any new foods, using any new skin care products, and doesn't think that this is related to the detergents used to clean his linens as he has previously been admitted to [facility] and didn't have a similar reaction. He also denied having fevers, chills, pain or itching of eyes or oral ulcers. He also added that he has muscle aches, which he attributes to walking around the hallways and that his right ankle is swollen. Apparently he also has a history of rheumatoid arthritis that was diagnosed over 15 years ago but is not on immunomodulators or steroids for this. REVIEW OF SYSTEMS: 12 point review of systems negative except as listed in HPI PAST MEDICAL HISTORY: Major depressive disorder Chronic opioid use Rheumatoid arthritis Osteoarthritis GERD BPH History of CVA History of DM 2 not on any medications History of Gout History of hypothyroidism Laparoscopic cholecystectomy Laparoscopic appendectomy SOCIAL HISTORY: He smokes prior to this admission was drinking alcohol daily and has a history of opiate dependence and THC use FAMILY HISTORY: Mother: Siblings: 2 brothers , both early deaths ALLERGIES: Please see below. HOME MEDICATIONS: Please see below. PHYSICAL EXAMINATION: VITAL SIGNS: Please see below. GEN: well-nourished / well developed/ NAD INTEGUMENT: He has a red raised rash distributed on the dorsal surface of the hands extending up to the lower aspect of the upper arms bilaterally. He also has a similar rash on the lower legs extending up to the new aspect of upper legs. . There is thickening of the epidermis and the skin is warm. HEENT: lips acyanotic /mucus membranes moist and pink / LUNGS: able to speak full sentences without stopping to take a breath / no coughing / lungs are clear to auscultation bilaterally on room air ABDOMEN: Contour (obese) MSK/EXTREMITIES: NCAT / range of motion intact in all 4 extremities / gait is normal NEURO: CN 2-12 are grossly intact / speech is not dysarthric PSYCH: alert and oriented to person place and time/ able to understand and follow all commands ASSESSMENT: Mr. Verma is a 55-year-old gentleman with a history of depression, was admitted to [facility] for management of suicidal ideation; I was called to reevaluate the patient because of a rash. PLAN: 1. Rash He doesn't have SIRS criteria therefore this is unlikely DRESS. It is possible that the rash is idiopathic, or urticaria or due to dermatomyositis because of the c/o myalgias, or due to some other autoimmune process o along with muscle aches, or other allergic reaction Plan: c/w Cetirizine / pending C3, C4, CBC, CMP, KAYLEIGH, DNA-DS, CPK, anti-CCP, Rheumatoid Factor consider Dermatology and or Rheumatology consults 2. Right Ankle Pain Plan: Acetaminophen 3. Intermittent nausea Plan: Zofran PRN 4. RA He is not on any immunomodulators Plan: f/u auto-immune work-up and refer to Rheumatology on an out patient basis Thank you for consulting us, we will sign off. Please reconsulting us as needed. Vital Signs Vital Signs Date Time Temp Pulse Resp B/P (MAP) Pulse Ox O2 Delivery O2 Flow Rate FiO2 08/18/20 22:33 97.6 66 18 148/73 (98) 99 Room Air Laboratory Data Labs 24H Laboratory Tests 2 08/18/20 23:00: Coronavirus (COVID-19)(PCR) NEGATIVE, Influenza Type A (RT-PCR) NEGATIVE, Influenza Type B (RT-PCR) NEGATIVE, Respiratory Syncytial Virus (PCR) NEGATIVE Home Medications Scheduled Aspirin (Aspirin) 325 Mg Tablet, 325 MG PO DAILY Atorvastatin Calcium (Atorvastatin Calcium) 80 Mg Tablet, 80 MG PO DAILY Buspirone HCl (Buspirone HCl) 10 Mg Tablet, 10 MG PO TID Carvedilol (Carvedilol) 12.5 Mg Tablet, 12.5 MG PO BID Fluoxetine Hcl (Fluoxetine HCl) 20 Mg Capsule, 20 MG PO DAILY Folic Acid (Folic Acid) 1 Mg Tablet, 1 MG PO DAILY Furosemide (Lasix) 40 Mg Tablet, 40 MG PO DAILY Omeprazole (Omeprazole) 20 Mg Capsule.dr, 20 MG PO DAILY Quetiapine Fumarate (Seroquel) 100 Mg Tablet, 100 MG PO QHS Tamsulosin HCl (Flomax) 0.4 Mg Capsule, 0.4 MG PO BID Thiamine HCl (Thiamine HCl) 100 Mg Tablet, 100 MG PO DAILY Scheduled PRN Hydroxyzine HCl (Hydroxyzine HCl) 50 Mg Tablet, 50 MG PO BID PRN for ANXIETY Oxycodone HCl (Oxycodone HCl) 10 Mg Tablet, 10 MG PO QID PRN for PAIN Allergies Coded Allergies: Pupwxtr-Zuo-Pcg Reductase Inhibitor (Verified Allergy, Severe, FACIAL REDNESS AND TINGLING, 03/22/19) niacin (Verified Adverse Reaction, Intermediate, CHEST PAIN AND FLUSHING, 03/22/19) hydrocodone (Verified Adverse Reaction, Mild, GI UPSET, 03/22/19) prednisone (Verified Adverse Reaction, Mild, MOOD CHANGE, 03/22/19) A-FIB/CHADSVASC A-FIB History Current/History of A-Fib/PAF?: No Current PO Anticoag Therapy: No Age/Risk Factor Scoring CHADSVASC: CHADSVASC Response (Comments) Value Age Risk Factor Age < 65 years old 0 Gender Risk Factor Male 0 Hx of CHF No 0 Hx of HTN Yes 1 Hx of Stroke/TIA/or VTE Yes 2 Hx of Diabetes Yes 1 Hx of Vascular Disease Yes 1 Total 5 LUIS ROMERO MD Aug 19, 2020 03:53
[2020-08-19] MEDS ORDERED: ONDANSETRON 4 MG ORAL DISINTEGRATING TAB PO PRN (04:00)
[2020-08-19 06:34] VITALS: BP 136/73
[2020-08-19] MEDS: TAMSULOSIN 0.4 MG CAP PO SCH ×2 (08:27→20:21)
[2020-08-19] MEDS: CETIRIZINE (ZyrTEC) 10 MG TAB PO SCH (08:27)
[2020-08-19] MEDS: FUROSEMIDE 40 MG TAB PO SCH (08:27)
[2020-08-19] MEDS: ASPIRIN 325 MG TAB PO SCH (08:28)
[2020-08-19] MEDS: VANICREAM MOISTURIZING SKIN CREAM 113GM TUBE TOP SCH ×3 (08:29→20:53)
[2020-08-19] MEDS: CARVedilol 12.5 MG TAB PO SCH ×2 (08:29→20:21)
[2020-08-19] MEDS: OMEPRAZOLE 20 MG CAP PO SCH (08:30)
[2020-08-19] MEDS: NICOTINE 21MG/24HR 1 EA TRANSDERMAL TD SCH (08:30)
[2020-08-19] MEDS: FLUoxetine 20 MG CAP PO SCH (08:30)
[2020-08-19] MEDS: ATORVASTATIN 20 MG TAB PO SCH (08:30)
[2020-08-19] MEDS: ANUSOL HC CREAM 30GM TOP PRN (08:31)
[2020-08-19 08:38] LABS: BASO # 0.1 10^3/uL (0.0-0.2); BASO % 1.3 % (0.0-1.0); EOS # 0.2 10^3/uL (0.0-0.5); EOS % 4.3 % (0.0-3.0); HEMATOCRIT 36.7 % (42.0-52.0); HEMOGLOBIN 11.4 g/dl (13.5-17.5); LYMPH # 0.8 10^3/uL (1.5-5.0); LYMPH % 19.9 % (24.0-44.0); MEAN CORPUSCULAR HEMOGLOBIN 31.3 pg (27.0-33.0); MEAN CORPUSCULAR HGB CONC 31.1 g/dl (32.0-36.5); MEAN CORPUSCULAR VOLUME 100.8 fl (80.0-96.0); MONO # 0.5 10^3/uL (0.0-0.8); NEUTROPHILS # 2.3 10^3/uL (1.5-8.5); PLATELET COUNT, AUTOMATED 122 10^3/uL (150-450); RED BLOOD COUNT 3.64 10^6/uL (4.30-6.10); WHITE BLOOD COUNT 3.8 10^3/uL (4.0-10.0)
[2020-08-19] MEDS: predniSONE 20 MG TAB PO SCH (08:57)
[2020-08-19] MEDS ORDERED: diphenhydrAMINE 25MG CAP PO ONE (09:00)
[2020-08-19 09:08] LABS: BLOOD UREA NITROGEN 10 MG/DL (7-18); CALCIUM LEVEL 8.2 MG/DL (8.5-10.1); CARBON DIOXIDE LEVEL 27 MEQ/L (21-32); CHLORIDE LEVEL 106 MEQ/L (98-107); CREATININE FOR GFR 1.06 MG/DL (0.70-1.30); GLOMERULAR FILTRATION RATE > 60.0 (>56); GLUCOSE, FASTING 235 MG/DL (70-100); POTASSIUM SERUM 4.1 MEQ/L (3.5-5.1); SODIUM LEVEL 139 MEQ/L (136-145)
[2020-08-19 09:09] LABS: ALBUMIN 3.2 GM/DL (3.2-5.2); ALT/SGPT 54 U/L (12-78); BILIRUBIN,TOTAL 0.4 MG/DL (0.2-1.0); COMPLEMENT C3 100 MG/DL (90-180); COMPLEMENT C4 22 MG/DL (10-40); CPK CREATINE PHOSPHOKINASE 122 U/L (39-308); RHEUMATOID FACTOR QUANT < 10.0 IU/ML (<15.0); TOTAL PROTEIN 6.3 GM/DL (6.4-8.2)
[2020-08-19 10:25] LABS: C REACTIVE PROTEIN QUANTITATIV 0.49 MG/DL (0.00-0.30)
--- NOTE | 2020-08-19 10:39 | IPNPDOC ---
Text Note Date of Service The patient was seen on 08/19/20. NOTE Subjective: Patient is a 55-year-old male who presented to [facility] on 07/13/2020 with Depression and suicidal ideation. He was admitted to the inpatient mental health unit under the care of psychiatry. Hospitalist service was consulted initially for medical screening evaluation. Hospital service was again re-consulted for rash. He reported an itchy rash on the dorsal surface of his hands extending up to the lower arms and lower legs extending up to the medial thighs. The patient denied eating any new foods, using any new skin care products, and doesn't think that this is related to the detergents used to clean his linens as he has previously been admitted to [facility] and didn't have a similar reaction. He also denied having fevers, chills, pain or itching of eyes or oral ulcers. He also added that he has muscle aches, which he attributes to walking around the hallways and that his right ankle is swollen. Apparently he also has a history of rheumatoid arthritis that was diagnosed over 15 years ago but is not on immunomodulators or steroids for this. Patient was seen and examined at the bedside. Patient denies any chest pain, shortness breath, palpitations. Denies any nausea, vomiting, belly pain, diarrhea, or urinary discomfort. Objective: Vitals (See below) General: Lying in bed, no acute distress, comfortable, AAOx3 HEENT: NC, AT CVS: RRR, +S1S2 Lungs: Fair air entry b/l, no appreciable wheezing, rhonchi or rales Abdomen: Soft, ND, NT Extremities: No evidence of edema, - Calf tenderness Assessment and plan: Rash - Patient reports itching with rash - Compliment levels are within normal limits, RF negative, KAYLEIGH pending - Will have outpatient follow up with Dermatology / Rheumatology - Will start short Prednisone taper Right Ankle Pain - c/w Acetaminophen PRN Intermittent nausea - c/w Zofran PRN History of RA - He has not been on any immunomodulators recently - Will have outpatient follow-up with Rheumatology GI prophylaxis - c/w DVT prophylaxis - c/w early ambulation Thank you for this consultation; hospitalist service will now sign-off VS,Fishbone, I+O VS, Fishbone, I+O Laboratory Tests 08/19/20 08:14 Vital Signs Date Time Temp Pulse Resp B/P (MAP) Pulse Ox O2 Delivery O2 Flow Rate FiO2 08/19/20 08:29 74 136/73 08/19/20 06:34 96.8 18 98 Room Air MACARENA STEWART MD Aug 19, 2020 10:39
[2020-08-19] MEDS: TRIAMCINOLONE ACET 0.1% CREAM 15 GM TOP PRN (20:20)
[2020-08-19] MEDS: traZODone 50 MG TAB PO PRN (20:21)
[2020-08-19] MEDS: QUEtiapine FUMARATE 100 MG TAB PO SCH (20:21)
[2020-08-19] MEDS: diphenhydrAMINE 25MG CAP PO PRN (22:04)
[2020-08-20] MEDS: hydrOXYzine 25 MG TAB PO SCH ×5 (00:03→23:10)
[2020-08-20] MEDS: OLANZapine ORAL DISINTEGRATING TAB 5MG PO PRN ×2 (02:05→22:04)
[2020-08-20] MEDS: CALCIUM CARBONATE 500 MG CHEW U/D PO PRN ×2 (02:54→23:10)
[2020-08-20] MEDS: ACETAMINOPHEN TAB 650MG DOSE (2X325MG) PO PRN ×3 (06:07→20:29)
[2020-08-20 06:36] VITALS: BP 130/70
[2020-08-20] MEDS: CETIRIZINE (ZyrTEC) 10 MG TAB PO SCH (08:21)
[2020-08-20] MEDS: TAMSULOSIN 0.4 MG CAP PO SCH ×2 (08:21→20:29)
[2020-08-20] MEDS: FUROSEMIDE 40 MG TAB PO SCH (08:22)
[2020-08-20] MEDS: predniSONE 20 MG TAB PO SCH (08:22)
[2020-08-20] MEDS: CARVedilol 12.5 MG TAB PO SCH ×2 (08:23→20:30)
[2020-08-20] MEDS: ASPIRIN 325 MG TAB PO SCH (08:23)
[2020-08-20] MEDS: FLUoxetine 20 MG CAP PO SCH (08:24)
[2020-08-20] MEDS: OMEPRAZOLE 20 MG CAP PO SCH (08:24)
[2020-08-20] MEDS: ATORVASTATIN 20 MG TAB PO SCH (08:24)
[2020-08-20] MEDS: NICOTINE 21MG/24HR 1 EA TRANSDERMAL TD SCH (08:24)
[2020-08-20] MEDS: VANICREAM MOISTURIZING SKIN CREAM 113GM TUBE TOP SCH ×3 (08:25→20:29)
[2020-08-20] MEDS: TRIAMCINOLONE ACET 0.1% CREAM 15 GM TOP PRN ×2 (12:33→23:10)
--- NOTE | 2020-08-20 13:32 | CR.PDOC ---
General Date of Consultation: Aug 20, 2020 Consultation Reason for Consultation: Pruritus R/O infestation HPI: Pruritic eruption on trunk and extremities with a history of rheumatoid arthritis that was diagnosed over 15 years ago but is not on any medication management. +mild right ankle edema. Has been taking cetirizine daily with minimal improvement. Eruption started on day 3-4 of been admitted to the hospital. Patient has been double rinsing his laundry as he feels the detergent may be causing his symptoms. Denies fever, chills, muscle aches/pains, or malaise. PE: -generalized asteatotic eruption on trunk and extremities including dorsal hands and fingers. -No interdigital involvement A/P: 1. Asteatotic Eczema -Triamcinolone 0.1% ointment (dispense 1lb jar) apply twice daily to trunk and extremities x 2 weeks -Continue cetirizine -Add hydroxyzine 25mg QHS -Mild soaps and moisturizers 2. Hx of Rheumatoid Arthritis -labs pending 3. No evidence of infestation Vital Signs/I&O Vital Signs Date Time Temp Pulse Resp B/P (MAP) Pulse Ox O2 Delivery O2 Flow Rate FiO2 08/20/20 08:23 74 130/70 08/20/20 06:36 97.3 18 97 Room Air Allergies Coded Allergies: Wrmkffg-Zaq-Yrm Reductase Inhibitor (Verified Allergy, Severe, FACIAL REDNESS AND TINGLING, 03/22/19) niacin (Verified Adverse Reaction, Intermediate, CHEST PAIN AND FLUSHING, 03/22/19) hydrocodone (Verified Adverse Reaction, Mild, GI UPSET, 03/22/19) prednisone (Verified Adverse Reaction, Mild, MOOD CHANGE, 03/22/19) Home Medications Scheduled Aspirin (Aspirin) 325 Mg Tablet, 325 MG PO DAILY, (Reported) Atorvastatin Calcium (Atorvastatin Calcium) 80 Mg Tablet, 80 MG PO DAILY, (Reported) Buspirone HCl (Buspirone HCl) 10 Mg Tablet, 10 MG PO TID, (Reported) Carvedilol (Carvedilol) 12.5 Mg Tablet, 12.5 MG PO BID, (Reported) Fluoxetine Hcl (Fluoxetine HCl) 20 Mg Capsule, 20 MG PO DAILY, (Reported) Folic Acid (Folic Acid) 1 Mg Tablet, 1 MG PO DAILY, (Reported) Furosemide (Lasix) 40 Mg Tablet, 40 MG PO DAILY, (Reported) Omeprazole (Omeprazole) 20 Mg Capsule.dr, 20 MG PO DAILY, (Reported) Quetiapine Fumarate (Seroquel) 100 Mg Tablet, 100 MG PO QHS, (Reported) Tamsulosin HCl (Flomax) 0.4 Mg Capsule, 0.4 MG PO BID, (Reported) Thiamine HCl (Thiamine HCl) 100 Mg Tablet, 100 MG PO DAILY, (Reported) Scheduled PRN Hydroxyzine HCl (Hydroxyzine HCl) 50 Mg Tablet, 50 MG PO BID PRN for ANXIETY, (Reported) Oxycodone HCl (Oxycodone HCl) 10 Mg Tablet, 10 MG PO QID PRN for PAIN, (Reported) Nereida Medel PA-C Aug 20, 2020 13:32
--- NOTE | 2020-08-20 13:36 | MHDSPDOC ---
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 He was admitted and resumed on his home Prozac and Seroquel with positive results. He improved in terms of his situation and began to engage more, somewhat judgmental times he ultimately became more understanding and engaged in treatment. He subsequently was open to going to rehab as he reported that he had no safe discharge plan being both him did not because his friend would not accept him back and had taken his money for rent, DSS would not help him due to his income, thus he decided to work with discharge planners to be sent to rehab to work on his alcoholism as it has been a major problem in the majority of his treatment. DISCHARGE ASSESSMENT[improved] Legal status considerations: The patient at the time of discharge did not meet criteria for involuntary admission/extension due to having a [normal] mental status exam, [fair] insight into the situation, They are engaged in the discharge process, as well as being friendly and amenable in behavioral control and havent been engaging in any observed concerning behavior or ideation recently. They decline voluntary extension/admission at this time and must be discharged in good jonathan, as Im unable to make a case for holding the patient against their will. They may have historical risk factors of admissions and other interactions with psychiatry however, those are not modifiable from a clinical perspective. The patient will need to be discharged in good jonathan. MENTAL STATUS EXAMINATION ON DISCHARGE: [General: Well dressed with good hygiene Speech: Spontaneous and fluid Thought processes: Linear and logical Thought content: Future orientated Abstract reasoning, and computation: Intact Description of associations: Intact Description of abnormal or psychotic thoughts:Denies any suicidal or homicidal ideation. Denies any auditory or visual hallucinations. Does not appear to be responding to internal stimuli. Does not appear to be endorsing any bizarre or paranoid ideation. Judgment: fair Insight: fair Orientation: Alert and orientated 3 Recent and remote memory: Intact Attention span and concentration: Intact Fund of knowledge: Adequate Mood: "okay" Affect: Euthymic with a full range] PLAN/FOLLOWUP ARRANGEMENTS: Follow up appointments made (PCP and MH in 5 days of D/C date) and safety plan completed. Safety Planning aspects completed prior to discharge Patient sent with supplies of his psychiatric medications and some of his medical medications in case he needs these at the rehab [RN reviewed crisis hotline information and other aspects to empower patient to access care in interim before next appointment.] The amount of time spent in the coordination of care for this patient was approximately 30 minutes. Vital Signs/I&Os Vital Signs Date Time Temp Pulse Resp B/P (MAP) Pulse Ox O2 Delivery O2 Flow Rate FiO2 08/20/20 08:23 74 130/70 08/20/20 06:36 97.3 18 97 Room Air Medications Scheduled Aspirin (Aspirin) 325 Mg Tablet, 325 MG PO DAILY, (Reported) Atorvastatin Calcium (Atorvastatin Calcium) 80 Mg Tablet, 80 MG PO DAILY for hld for 30 Days, #30 Carvedilol (Carvedilol) 12.5 Mg Tablet, 12.5 MG PO BID for htn for 30 Days, #60 Fluoxetine Hcl (Fluoxetine HCl) 20 Mg Capsule, 20 MG PO DAILY for mood for 30 Days, #30 Folic Acid (Folic Acid) 1 Mg Tablet, 1 MG PO DAILY, (Reported) Furosemide (Lasix) 40 Mg Tablet, 40 MG PO DAILY, (Reported) Omeprazole (Omeprazole) 20 Mg Capsule.dr, 40 MG PO DAILY for mood for 30 Days, #60 Quetiapine Fumarate (Seroquel) 100 Mg Tablet, 100 MG PO QHS for mood for 30 Days, #30 Tamsulosin HCl (Flomax) 0.4 Mg Capsule, 0.4 MG PO BID for bpd for 30 Days, #30 Scheduled PRN Hydroxyzine HCl (Hydroxyzine HCl) 50 Mg Tablet, 50 MG PO BID PRN for ANXIETY for 30 Days, #60 Triamcinolone Acet (Triamcinolone Acetonide 0.1% Crm) 80 Gm Cream..g., 0 DOSE TOP BIDP PRN for itching for 30 Days, #1 Allergies Coded Allergies: Umafpap-Yxr-Uuc Reductase Inhibitor (Verified Allergy, Severe, FACIAL REDNESS AND TINGLING, 03/22/19) niacin (Verified Adverse Reaction, Intermediate, CHEST PAIN AND FLUSHING, 03/22/19) hydrocodone (Verified Adverse Reaction, Mild, GI UPSET, 03/22/19) prednisone (Verified Adverse Reaction, Mild, MOOD CHANGE, 03/22/19) HAYDEN ASKEW DO Aug 20, 2020 13:36
[2020-08-20] MEDS ORDERED: TRIA1CR80 TOP (13:44)
[2020-08-20] MEDS ORDERED: FLUO20CA22 PO (13:44)
[2020-08-20] MEDS ORDERED: CARV12.5 PO (13:44)
[2020-08-20] MEDS ORDERED: OMEP-218 PO (13:44)
[2020-08-20] MEDS ORDERED: HYDR50TA70 PO (13:44)
[2020-08-20] MEDS ORDERED: ATOR80TA59 PO (13:44)
[2020-08-20] MEDS ORDERED: FLOM0.4C39 PO (13:44)
[2020-08-20] MEDS ORDERED: SERO1TAB PO (13:44)
[2020-08-20 18:00] VITALS: BP 136/69
[2020-08-20] MEDS: QUEtiapine FUMARATE 100 MG TAB PO SCH (20:29)
[2020-08-20] MEDS: traZODone 50 MG TAB PO PRN (20:29)
[2020-08-20] MEDS: diphenhydrAMINE 25MG CAP PO PRN (20:29)
[2020-08-21] MEDS: hydrOXYzine 25 MG TAB PO SCH ×2 (05:27→12:09)
[2020-08-21] MEDS: ACETAMINOPHEN TAB 650MG DOSE (2X325MG) PO PRN (05:28)
[2020-08-21 06:23] VITALS: BP 134/60
[2020-08-21] MEDS: FUROSEMIDE 40 MG TAB PO SCH (08:12)
[2020-08-21] MEDS: NICOTINE 21MG/24HR 1 EA TRANSDERMAL TD SCH (08:18)
[2020-08-21] MEDS: ATORVASTATIN 20 MG TAB PO SCH (08:18)
[2020-08-21] MEDS: FLUoxetine 20 MG CAP PO SCH (08:18)
[2020-08-21] MEDS: VANICREAM MOISTURIZING SKIN CREAM 113GM TUBE TOP SCH (08:18)
[2020-08-21] MEDS: CETIRIZINE (ZyrTEC) 10 MG TAB PO SCH (08:19)
[2020-08-21] MEDS: OMEPRAZOLE 20 MG CAP PO SCH (08:19)
[2020-08-21] MEDS: ASPIRIN 325 MG TAB PO SCH (08:19)
[2020-08-21] MEDS: diphenhydrAMINE 25MG CAP PO PRN (08:19)
[2020-08-21 08:22] VITALS: BP 128/69
[2020-08-21] MEDS: CARVedilol 12.5 MG TAB PO SCH (08:22)
[2020-08-21] MEDS: TAMSULOSIN 0.4 MG CAP PO SCH (08:22)
[2020-08-21] MEDS ORDERED: predniSONE 10 MG TAB PO SCH (09:00)
[2020-08-21] MEDS: ANUSOL HC CREAM 30GM TOP PRN (09:01)
[2020-08-21] MEDS: OLANZapine ORAL DISINTEGRATING TAB 5MG PO PRN (10:52)
[2020-08-21 23:06] LABS: ANTI DS-DNA AB Negative (Negative); ANTINUCLEAR ANTIBODIES DIRECT Negative (Negative); CYCLIC CITRULLINATED PEPTIDE 49 units (0-19)
[2020-08-23] MEDS ORDERED: predniSONE 20 MG TAB PO SCH (09:00)
[2020-08-25] MEDS ORDERED: predniSONE 10 MG TAB PO SCH (09:00)
== END 2020-08-21 12:15 | DRG 754 ==
LOC: M ED 18:14 → EDBD 18:14 → M ED INP 08-09 06:19 → M PSY 08-09 09:10
PROVIDERS: ADMIT Psychiatry & Neurology Addiction Medicine; ATTEND Psychiatry & Neurology Addiction Medicine
DX: F32.9 Major depressive disorder, single episode, unspecified (principal); E03.9 Hypothyroidism, unspecified; F10.10 Alcohol abuse, uncomplicated; Z79.82 Long term (current) use of aspirin; Z79.899 Other long term (current) drug therapy; Z88.5 Allergy status to narcotic agent; Z88.8 Allergy status to other drugs, medicaments and biological substances; K21.9 Gastro-esophageal reflux disease without esophagitis; N40.0 Benign prostatic hyperplasia without lower urinary tract symptoms; Z86.73 Personal history of transient ischemic attack (TIA), and cerebral infarction without residual deficits; F11.90 Opioid use, unspecified, uncomplicated; M06.9 Rheumatoid arthritis, unspecified; M19.90 Unspecified osteoarthritis, unspecified site; M10.9 Gout, unspecified; F41.9 Anxiety disorder, unspecified; K64.4 Residual hemorrhoidal skin tags; L30.9 Dermatitis, unspecified

== ENCOUNTER 2020-09-12 23:28 | Inpatient (IN) | payer MEDICAID ==
[~2020-09-12] VITALS: Ht 172.7 cm; Wt 91.8 kg
[~2020-09-12 23:28] MED LIST changes: +ASPI-1 PO; +ASPI325T54 PO; +ATOR80TA59 PO; +BUSP10TA PO; +BUSP15TA47 PO; +CARV12.5 PO; +DULO60CA35 PO; +FLUO20CA22 PO; +HYDR50TA70 PO; +LASI40TA9 PO; +OMEP-218 PO; +OXYC10TA12 PO; +SERO1TAB PO; +THIA100T7 PO; +TRAZ-186 PO; +TRIA1CR80 TOP
--- OUTSIDE RECORDS SUMMARY | 2020-09-12 23:33 | CCD | Summary of Care ---
Author Author [facility] Organization [facility] Address Unknown Phone Unavailable Care Team Providers Care Procurement Clerk Name Role Phone Héctor Keon Cristel DO PCP Reason for Visit * Auth/Cert Referred By Contact Referred To Contact Status Reason Specialty Diagnoses / Procedures Diagnoses Liver failure, renal failure, GI bleed GI bleed Encounter Details Care Team Description Date Type Department Brian Gaston MD [address] [facility] 2nd Floor [address] [place] [id number] [phone] Mala Rossi MD [address] [facility] 2nd Floor [address] [place] [id number] [phone] Katarzyna Haas MD [address], [place] [id number] Colitis (Primary Dx); Gastrointestinal hemorrhage, unspecified gastrointestinal hemorrhage type 07/06/[address] HEMATOLOGY ONCO LOGY - Encounter 07/10/[address] [place] [address] Allergies Comments Active Allergy Reactions Severity Noted Date Niacin And Related Hives High 10/28/2018 Prednisone Rash Low 06/20/2019 Pt is only has intolerance to Hydrocodone(nausea)- No known intolerance/allergy to Tylenol Hydrocodone-Acetaminophen Nausea Only Low 06/02 documented as of this encounter (statuses as of 07/10/2020) Medications End Date Status Medication Sig Dispensed Refills Start Date Active Atorvastatin Calcium 80 Take 80 mg by 0 MG Oral Tablet (LIPITOR) mouth daily Active Tamsulosin HCl 0.4 MG Take 0.4 mg 0 Oral Capsule (FLOMAX) by mouth daily Active oxyCODONE HCl 10 MG Oral Take 1 tablet 0 Tablet by mouth Four times daily as needed Active Gabapentin 100 MG Oral Take 200 mg 0 Capsule (NEURONTIN) by mouth Three times daily as needed 07/17/2020 Active vancomycin 50 mg/mL PO Take 2.5 mLs 70 mL 0 SOLN oral solution by mouth 0 every 6 (six) hours for 7 days 07/09/2021 Active Lisinopril 10 MG Oral Take 1 tablet 30 tablet 11 Tablet (ZESTRIL) by mouth 0 daily 07/09/2021 Active Thiamine HCl 100 MG Oral Take 1 tablet 30 tablet 11 Tablet (B-1) by mouth 0 daily 07/09/2021 Active Folic Acid 1 MG Oral Take 1 tablet 30 tablet 11 Tablet (FOLVITE) by mouth 0 daily 07/24/2020 Active maalox/lidocaine/diphenhy Swish and 0 drAMINE 1:1:1 SWISH & spit 10 mLs 0 SWAL oral suspension Four times daily as needed (throat pain)Pharmacy compound: Maalox, lidocaine viscous 2 %, Benadryl 12.5 mg/5 mL 07/09/2021 Active hydrOXYzine HCl 25 MG Take 1 tablet 30 tablet 0 Oral Tablet (ATARAX) by mouth 0 every 6 (six) hours as needed for Anxiety 07/09/2021 Active Pantoprazole Sodium 40 MG Take 1 tablet 60 tablet 11 Oral Tablet Delayed by mouth Two 0 Release (PROTONIX) Times Daily 07/17/2020 Active K Phos [place]-Sod Phos Di & Take 1 tablet 14 tablet 0 [place] [phone] MG Oral by mouth Two 0 Tablet (K PHOS NEUTRAL) Times Daily for 7 days 07/17/2020 Active Magnesium Oxide 400 Take 1 tablet 7 tablet 0 (241.3 Mg) MG Oral Tablet by mouth 0 (MAG-OX) daily for 7 days 10/08/2020 Active Aspirin 81 MG Oral Tablet Take 1 tablet 30 tablet 2 Delayed Release by mouth 0 daily 07/08/2020 Discontinued (Medication Rec oncilation) atenolol (TENORMIN) 100 Take 100 mg 0 MG tablet by mouth daily. 07/10/2020 Discontinued (Stop Taking at Discharge) esomeprazole (NEXIUM) 20 Take 20 mg by 0 MG capsule mouth Two Times Daily 07/08/2020 Discontinued (Medication Rec oncilation) Indomethacin (INDOCIN PO) Take by 0 mouth. 07/08/2020 Discontinued (Medication Rec oncilation) hydrOXYzine (ATARAX) 25 Take 25 mg by 0 MG tablet mouth Three times daily as needed for Itching. 07/08/2020 Discontinued (Medication Rec oncilation) lisinopril Take 10 mg by 0 (PRINIVIL,ZESTRIL) 10 MG mouth daily. tablet 07/08/2020 Discontinued (Medication Rec oncilation) capsaicin (CAPZASIN HP) Apply 42.5 g 0 0.1 % topical cream topically 9 Three times daily as needed (for pain)Can be used with lidocaine pain. 07/10/2020 Discontinued (Stop Taking at Discharge) Aspirin 325 MG Oral Take 325 mg 0 Tablet by mouth daily documented as of this encounter (statuses as of 07/10/2020) Active Problems Problem Noted Date C. difficile colitis 07/09/2020 Hypophosphatemia 07/09/2020 Alcoholic cirrhosis 07/09/2020 Alcohol use 07/09/2020 Tobacco use 07/09/2020 Essential hypertension 07/09/2020 GI bleed 07/06/2020 Chronic pain associated with significant psychosocial dysfunction 06/22/2019 Opiate abuse, continuous 06/21/2019 Suicidal ideation 06/21/2019 Anxiety 06/21/2019 Alcohol abuse 06/21/2019 Mood disorder 06/19/2019 Suicidal behavior 10/28/2018 Osteoarthritis of multiple joints 10/28/2018 Other chronic pain 10/28/2018 Class 1 obesity due to excess calories without seriou s comorbidity with 10/28/2018 body mass index (BMI) of 32.0 to 32.9 i n adult Type 2 diabetes mellitus without complication, withou t long-term current 10/28/2018 use of insulin Moderate episode of recurrent major depressive disord er 10/28/2018 Rheumatoid arthritis 12/02/2014 Arthritis of ankle 08/09/2014 documented as of this encounter (statuses as of 07/10/2020) Social History Date Tobacco Use Types Packs/Day Years Used Current Every Day Smoker Cigarettes 1 30 Smokeless Tobacco: Never Used Drinks/Week oz/Week Comments Alcohol Use Drank yesterday for the first time in 5 years No Alcohol Habits Answer Date Recorded How often do you have a drink containing alcohol? Never 10/28/2018 How many drinks containing alcohol do you have on No t asked a typical day when you are drinking? How often do you have six or more drinks on one Not asked occasion? Sex Assigned at Date Recorded Not on file Date Recorded COVID-19 Exposure Response 07/06/2020 3:58 AM EST In the last month, have you been in contact with No / Unsure someone who was confirmed or suspected to have Coronavirus / COVID-19? documented as of this encounter Last Filed Vital Signs Reading Time Taken Comments Vital Sign 106/62 07/10/2020 6:28 AM EST Blood Pressure 59 07/10/2020 6:28 AM EST Pulse 36.4 C (97.5 F) 07/10/2020 6:28 AM EST Temperature 18 07/10/2020 6:28 AM EST Respiratory Rate 99% 07/10/2020 6:28 AM EST Oxygen Saturation - - Inhaled Oxygen Concentration 86.3 kg (190 lb 4.1 oz) 07/06/2020 4:00 AM EST Weight 172.7 cm (5' 8") 07/06/2020 4:00 AM EST Height 28.93 07/06/2020 4:00 AM EST Body Mass Index documented in this encounter Discharge Instructions * Appointments* aPvithra Méndez - 07/07/2020 12:08 PM EST Hospital follow up scheduled with: [place] [phone] Appointment: July 24, 2020 @ 2pm with ANGELA Montano Please bring insurance card and photo ID to appointment. If you cannot keep this appointment, please call office. Due to covid restrictions office is not allowsanjana arnold anyone to come with you. Please wear a mask to appointment. * Discharge Instr - Outside Referral* Park Quan LCSW - 07/07/2020 4:38 PM EST [facility] offers outpatient mental health services fo r the civilian community (adults ages 18 and over). Our staff has experience in a variety of specialties, includi ng: Adult psychiatry [facility] [address], [id number] AA Meetings [place], [place] For More Information on Meetings and Times Call [phone] [address] AA Meeting List [facility] & [facility] Please be prepared to observe social distancing rules and regulations in order to facilitate good stewardship with regards to each group's conscience HELPLINE [phone] [facility] Entrance to meeting at: [address] [place], [place] Mailing Address: [address], [address] [place] [address] documented in this encounter Progress Notes * Lindsay Dillon RN - 07/10/2020 4:44 PM EST Pt given discharge instructions by previous nurse; pt discharged by cab with bel onglings * Bridget Pearson, KRISTYN - 07/10/2020 1:32 PM EST Pt is a transfer from 6 to 10[facility]. Pt admitted with a GI bleed, EDG done 07/06. Pt has c diff colitis. Per previous CM notes pt is medicaid pending, but face sheet has Medicaid #. PT cleared for home. Will get pt a cab ride for 4 pm. * Katarzyna Haas MD - 07/09/2020 11:49 AM EST Inpatient Progress Note Subjective Patient seen and examined at bedside. He reports noticing some dark streaks of b lood in his last bowel movement yesterday evening. No vomiting. Has nausea. He f eels he is going through alcohol withdrawal with nausea and anxiety. Review of Systems: Constitutional: Negative for chills, fatigue, fever HENT: Negative for congestion, sinus pressure Respiratory: Negative for cough, chest tightness, shortness of breath and wheezi ng. Cardiovascular: Negative for chest pain, palpitations and leg swelling. Gastrointestinal: Positive for dark stools and nausea. Negative for abdominal di stention, abdominal pain, vomiting, constipation. Musculoskeletal: Negative for gait problem, myalgias Neurological: Negative for dizziness, light-headedness and headaches. Psychiatric/Behavioral: Positive for anxiety. Negative for agitation, confusion, dysphoric mood Objective Temp: [36.1 C (96.9 F)-36.9 C (98.4 F)] 36.1 C (96.9 F) Pulse: [56-70] 67 Resp: [18-20] 18 BP: (111-148)/(70-82) 119/72 SpO2: [98 %-100 %] 98 % O2 Therapy: Oxygen O2 Flow Rate (L/min): [2 L/min] 2 L/min Physical Exam: Constitutional: Age-appropriate. No distress. Mouth/Throat: Oropharynx is dry Cardiovascular: Normal rate, regular rhythm, normal heart sounds. Intact distal pulses. Pulmonary/Chest: Effort normal. No stridor. No respiratory distress. The patient has no wheezes, no rales. Abdominal: Soft. Bowel sounds present. Patient exhibits no distension and no mas s. There is no tenderness. Musculoskeletal: Patient exhibits no edema or tenderness. Neurological: Patient is alert and oriented to person, place, and time. Skin: No rash noted. Patient is not diaphoretic. Laboratory Data (Most Recent over Past 3 Years) Lab 07/07/20 1845 07/08/2021007/09/20 0047 WBC 4.9 4.0 3.5* HGB 10.7* 10.4* 10.5* HCT 31.4* 31.0* 31.3* MCV 92.7 92.9 92.9 PLT 71* 68* 60* Lab 07/07/20 0543 07/08/20 0211 07/09/20 0047 NA 137 -- 137 138 K 3.5 < > 3.4 3.1* CL 100 -- 102 103 BICARBONATE 24 -- 28 25 GLUCOSE 140 -- 107 134 BUN 18 -- 12 8 CREATININE 0.96 -- 0.83 0.78 < > = values in this interval not displayed. Lab 10/28/18 1132 06/22/19 0621 07/07/20 0543 HGBA1C 6.3* 7.0* 5.5 Lab 07/07/20 1845 07/08/20 0211 07/09/20 0047 NEUTOPHILPCT 64 57 52 LYMPHOPCT 24 31 35 MONOPCT 8 8 9 EOSPCT 4 4 3 Lab 07/07/20 0543 07/08/20 0211 07/09/20 0047 PROT 5.5* 5.2* 5.2* ALBUMIN 3.8 3.4* 3.4* AST 41* 37 36 ALT 25 22 27 TBILI 0.7 0.5 0.4 ALKPHOS 49 52 51 Lab 07/06/20 0426 INR 1.21 Assessment/Plan Kobe Verma is a 55 y.o. old with PMH significant for alcohol use with cirrh osis, hypertension, anxiety/depression, hx of opioid dependence presented from [facility] with GI bleeding with need for GI evaluation. Patient was initially in MICU h owever did not require any pressor support, h/h remained stable. He underwent EG D which revealed esophagitis/gastritis (with no varices/bleeding). Transferred t [facility] on 07/07. Upper GI Bleed -Hemodynamically stable. Noted some dark streaks in BM yesterday. -Presented from OSH due to melena and coffee ground emesis -EGD on 07/06 revealed grade D esophagitis of entire esophagus, gastritis -GI recommends to continue with PPI 40mg BID for 3 months -Discontinue IV LR -H&H stable, monitor daily C diff Colitis, Uncomplicated -Diarrhea panel positive with OSH CT Abdomen revealing christiansen-colitis -Continue with PO vancomycin 125mg q6h Electrolyte Disturbances -Phosphorus level now wnl. Continue with daily supplement. -Magnesium replaced overnight. Alcohol Use Disorder/Cirrhosis -imaging confirmatory of cirrhosis, dx a year ago -home med rec pending -CIWA protocol, c/w folic and thiamine -SW consult in place Anxiety/Depression -c/w atarax q6h prn Opioid Dependence -hx of chronic knee/back pain -iSTOP did not reveal any prescriptions (provider from [place]) -c/w Oxycodone 5mg q4h prn Hypertension -Continue with lisinopril. Home atenolol discontinued Tobacco Use -NRT DVT PPx: Will resume tomorrow GI PPx: PPI Code Status: Full Code Katarzyna Haas MD Hospitalist 07/09/2020 * Cristobal Luis RN - 07/09/2020 5:23 AM EST Pt reports drinking a quart of vodka 3 days ago right before admission to [facility], requesting alcohol detox treatment. NF notified and made aware. Per NF MD , CIWA protocol initiated and valium given per MD order. After interventions, Pt still c/o of anxiety attack, requesting further meds. NF notified to assess. Per NF assessments, Pt is not displaying symptoms of alcohol detox, no furth er meds at this time. Will continue to monitor. * Katie Salgado MD - 07/08/2020 11:17 AM EST Inpatient Progress Note Subjective Patient seen and examined at bedside. Did receive 0.5mg ativan overnight. Only complain is his throat pain which is alleviated with use of radiation mixture. O therwise no drooling, dyspnea, fever/chills. Last BM yesterday passing gas. Review of Systems: Constitutional: Negative for chills, fatigue, fever HENT: Negative for congestion, sinus pressure Respiratory: Negative for cough, chest tightness, shortness of breath and wheezi ng. Cardiovascular: Negative for chest pain, palpitations and leg swelling. Gastrointestinal: Negative for abdominal distention, abdominal pain, constipatio n, diarrhea Musculoskeletal: Negative for gait problem, myalgias Neurological: Negative for dizziness, light-headedness and headaches. Psychiatric/Behavioral: Negative for agitation, confusion, dysphoric mood Objective Temp: [36.3 C (97.3 F)-36.7 C (98.1 F)] 36.3 C (97.3 F) Pulse: [52-69] 54 Resp: [12-26] 18 BP: (93-128)/(57-72) 112/63 SpO2: [91 %-99 %] 99 % O2 Therapy: Oxygen O2 Flow Rate (L/min): [2 L/min] 2 L/min Physical Exam: Constitutional: Age-appropriate. No distress. Mouth/Throat: Oropharynx is dry Cardiovascular: Normal rate, regular rhythm, normal heart sounds. Intact distal pulses. Pulmonary/Chest: Effort normal. No stridor. No respiratory distress. The patient has no wheezes, no rales. Abdominal: Soft. Bowel sounds present. Patient exhibits no distension and no mas s. There is no tenderness. Musculoskeletal: Patient exhibits no edema or tenderness. Neurological: Patient is alert and oriented to person, place, and time. Skin: No rash noted. Patient is not diaphoretic. Laboratory Data (Most Recent over Past 3 Years) Lab 07/07/20 0543 07/07/20184407/08/20210 WBC 5.1 4.9 4.0 HGB 10.3* 10.7* 10.4* HCT 29.8* 31.4* 31.0* MCV 91.4 92.7 92.9 PLT 65* 71* 68* Lab 07/06/20 1135 07/07/2043 07/08/20210 NA 130* -- 137 -- 137 K 3.4 < > 3.5 < > 3.4 CL 89* -- 100 -- 102 BICARBONATE 16* -- 24 -- 28 GLUCOSE 179* -- 140 -- 107 BUN 35* -- 18 -- 12 CREATININE 1.38* -- 0.96 -- 0.83 < > = values in this interval not displayed. Lab 10/28/18 1132 06/22/1962007/07/20542 HGBA1C 6.3* 7.0* 5.5 Lab 07/07/20 0543 07/07/20184407/08/20210 NEUTOPHILPCT 76 64 57 LYMPHOPCT 14 24 31 MONOPCT 7 8 8 EOSPCT 3 4 4 Lab 07/06/20 0426 07/07/20 0543 07/08/20210 PROT 5.7* 5.5* 5.2* ALBUMIN 3.3* 3.8 3.4* AST 74* 41* 37 ALT 37 25 22 TBILI 0.6 0.7 0.5 ALKPHOS 66 49 52 Lab 07/06/20425 INR 1.21 Assessment/Plan Kobe Verma is a 55 y.o. old with PMH significant for alcohol use with cirrh osis, hypertension, anxiety/depression, hx of opioid dependence presented from [facility] with GI bleeding with need for GI evaluation. Patient was initially in MICU h owever did not require any pressor support, h/h remained stable. He underwent EG D which revealed esophagitis/gastritis (with no varices/bleeding). He is medical ly stable and transferred to the medicine floors on 07/07. 1. GI Bleed-Stable Presented from OSH due to melena and coffee ground emesis EGD on 07/06 revealed esophagitis of entire esophagus, gastritis(no bleeding/varc ies) GI recommends to continue with PPI 40mg BID for 3 months C/w LR at 75cc/hr CBC stable, will change to daily 2. C diff Colitis, Uncomplicated -Diarrhea panel positive with OSH CT Abdomen revealing christiansen-colitis -Abdomen soft, continues to have bowel movements (last BM yesterday), he is pass ing gas -Continue with PO vancomycin 125mg q6h 3. Electrolyte Disturbances -Phosphorus moderately low 1.6. Will give replacement via central line and incr ease K phosph to 500mg BID -Monitor phosphorus q8h (4pm and midnight) 4. Alcohol Use Disorder/Cirrhosis -imaging confirmatory of cirrhosis, dx a year ago -home med rec pending -CIWAA protocol, c/w folic and thiamine 5. Anxiety/Depression -c/w atarax q6h prn 6. Opioid Dependence -hx of chronic knee/back pain -iSTOP did not reveal any prescriptions (provider from [place]) -c/w Oxycodone 5mg q4h prn (Moderate Pain). Has not required 10mg (overnight) 7. Thrombocytopenia-stable 8. Lactic Acidosis-Resolved 9. Chronic Normocytic anemia-stable 10. Hypertension -c/w lisinopril 10mg, will d/c atenolol d/t low blood pressure 11. Current Tobacco Use -nicotine patch/gum provided DVT PPx: Will resume tomorrow GI Ppx: PPI Full Code Transfer to Team [address] Samina Salgado MD Medicine PGY-3 (pager) Associated attestation - Katarzyna Haas MD - 07/08/2020 12:50 PM EST Attending Addendum: I saw and examined the patient. I evaluated the clinical findings and discussed the plan for Kobe Verma with the resident. I have reviewed the note and agr ee with the findings and plan as documented with the additions and exceptions as below: No further bleeding. Overall amount of data reviewed, level of risk, com plexity and medical decision making is: moderate. Katarzyna Haas MD Department of Medicine 07/08/2020 12:49 PM * Park Quan LCSW - 07/07/2020 3:28 PM EST SW attempted to meet with patient 2x today, Doctor was in meeting with patient a t time of first visit, SW unable to engage with patient. SW contacted bedside nu rse to assist with phone in the patient's room, he was assisting patient with ba thing and patient unable to engage at the time. ALEX was requested to call back la kecia in the day. * Katie Salgado MD - 07/07/2020 3:18 PM EST Inpatient Progress Note Subjective Patient seen and examined at bedside. No acute overnight events. Only complaint this afternoon is his chronic back pain along with pain with swallowing. No droo ling, dyspnea, coughing, fever/chills. Review of Systems: Constitutional: Negative for chills, fatigue, fever HENT: Negative for congestion, sinus pressure Respiratory: Negative for cough, chest tightness, shortness of breath and wheezi ng. Cardiovascular: Negative for chest pain, palpitations and leg swelling. Gastrointestinal: Negative for abdominal distention, abdominal pain, constipatio n, diarrhea Musculoskeletal: Negative for gait problem, myalgias Neurological: Negative for dizziness, light-headedness and headaches. Psychiatric/Behavioral: Negative for agitation, confusion, dysphoric mood Objective Temp: [36.5 C (97.7 F)-37.2 C (99 F)] 36.9 C (98.4 F) Pulse: [67-101] 74 Resp: [19-30] 21 BP: (102-157)/(67-97) 102/67 SpO2: [89 %-98 %] 94 % O2 Therapy: Room air O2 Flow Rate (L/min): [2 L/min] 2 L/min Physical Exam: Constitutional: Age-appropriate. No distress. Mouth/Throat: Oropharynx is clear and moist. Cardiovascular: Normal rate, regular rhythm, normal heart sounds. Intact distal pulses. Pulmonary/Chest: Effort normal. No stridor. No respiratory distress. The patient has no wheezes, no rales. Abdominal: Soft. Bowel sounds present. Patient exhibits no distension and no mas s. There is no tenderness. Musculoskeletal: Patient exhibits no edema or tenderness. Neurological: Patient is alert and oriented to person, place, and time. Skin: No rash noted. Patient is not diaphoretic. Laboratory Data (Most Recent over Past 3 Years) Lab 07/06/20173507/07/201107/07/20542 WBC 5.6 5.2 5.1 HGB 10.0* 10.1* 10.3* HCT 28.9* 29.2* 29.8* MCV 91.9 91.3 91.4 PLT 70* 69* 65* Lab 07/06/2042507/06/20 1135 07/07/2043 07/07/2022 NA 131* 130* -- 137 -- K 3.2* 3.4 < > 3.5 3.5 CL 88* 89* -- 100 -- BICARBONATE 12* 16* -- 24 -- GLUCOSE 145* 179* -- 140 -- BUN 41* 35* -- 18 -- CREATININE 1.39* 1.38* -- 0.96 -- < > = values in this interval not displayed. Lab 10/28/18113106/22/1962007/07/20 0543 HGBA1C 6.3* 7.0* 5.5 Lab 07/06/20173507/07/202 07/07/2043 NEUTOPHILPCT 77 73 76 LYMPHOPCT 12 17 14 MONOPCT 11 9 7 EOSPCT 0 1 3 Lab 07/06/2042507/07/20 0543 PROT 5.7* 5.5* ALBUMIN 3.3* 3.8 AST 74* 41* ALT 37 25 TBILI 0.6 0.7 ALKPHOS 66 49 Lab 07/06/20425 INR 1.21 Assessment/Plan Kobe Verma is a 55 y.o. old with PMH significant for alcohol use with cirrh osis, hypertension, anxiety/depression, hx of opioid dependence presented from [facility] with GI bleeding with need for GI evaluation. Patient was initially in MICU h owever did not require any pressor support, h/h remained stable. He underwent EG D which revealed esophagitis/gastritis (with no varices/bleeding). He is medical ly stable and transferred to the medicine floors on 07/07. 1. GI Bleed-Stable Presented from OSH due to melena and coffee ground emesis EGD on 07/06 revealed esophagitis of entire esophagus, gastritis(no bleeding/varc ies) GI recommends to continue with PPI 40mg BID for 3 months C/w LR at 100cc/hr CBC q12h for now 2. C diff Colitis, Uncomplicated -Diarrhea panel positive with OSH CT Abdomen revealing christiansen-colitis -Abdomen soft, continues to have bowel movements -Continue with PO vancomycin 125mg q6h 3. Electrolyte Disturbances -Phosphorus moderately low 0.9. Will give replacement via central line (12 mmol via central line of potassium phosphate). Follow up phosphorus level at 6pm. -Continue with K phosph 250mg BID 4. Alcohol Use Disorder/Cirrhosis -imaging confirmatory of cirrhosis, dx a year ago -home med rec pending -CIWAA protocol, c/w folic and thiamine 5. Anxiety/Depression -c/w atarax q6h prn 6. Opioid Dependence -hx of chronic knee/back pain -iSTOP did not reveal any prescriptions (provider from [place]) -c/w Oxycodone 5mg q4h prn (Moderate Pain) and 10mg q6h prn (severe) 7. Thrombocytopenia-stable 8. Lactic Acidosis-Resolved 9. Chronic Normocytic anemia-stable 10. ?Hypertension -c/w lisinopril 10mg and atenolol 100mg DVT PPx: Will resume tomorrow GI Ppx: PPI Full Code Transfer to Team [address] Samina Salgado MD Medicine PGY-3 (pager) Associated attestation - Katarzyna Haas MD - 07/08/2020 12:51 PM EST Attending Addendum: I saw and examined the patient. I evaluated the clinical findings and discussed the plan for Kobe Verma with the resident. I have reviewed the note and agr ee with the findings and plan as documented. Overall amount of data reviewed, le vanessa of risk, complexity and medical decision making is: high. Katarzyna Haas MD Department of Medicine 07/07/2020 * Melony Mathews RN - 07/07/2020 11:55 AM EST Unit 6I Medical ICU/CM follow up notes: Received call from Direct nurse Lizzy . She advised, patient does have a PCP. However, he is no longer at this office. Will refer him to another PCP in the same office ([facility]). She confirmed she will update patient's chart. CM will continue to follow case. * Melony Mathews RN - 07/07/2020 10:37 AM EST Case Management Screen & Assessment Patient Name: Kobe Verma Gender: male Date of : 1965 Admission Dx: Liver failure, renal failure, GI bleed GI bleed Age: 55 y.o. Admission: 07/06/2020 3:03 AM Attending Provider: Mala Rossi MD High Risk Criteria - Prior to Admission/Upon Arrival [employer]-Type of Residence: Private Residence [employer]- Home Care Services: No Limited Home Supports/Lives Alone?: Yes(lives alone. however, has informal suppo rts available when needed) Multi trauma/Critical care/Step down admit?: Yes Head/Spinal cord injury?: No Self Pay: Yes Date of referral to Financial Program Office: 07/07/20 Multiple ED visits?: No Related/Unplanned readmission within 30 days?: No Complex/New medical issues: (EMTALA) ED to IP Transfer from [facility]. Katerine f Complaint: Vomiting blood. Service Requested/Unavailable at Referring Hospital : Medical ICU (Pulmonology).(This patient is on a TRANSFER AGREEMENT with [facility] [facility] Relevant comorbidities: h/o depression, alcohol use disorder, tobacco use, alcoh olic cirrhosis and anxiety. Func/Cognitive/Behavorial deficit(s): on CIWA protocol Psychosocial considerations: h/o of opioid use and ETOH abuse, h/o suicidal idea tions. Recent travel: Pt was in [place] a week ago Screening Outcome Social Work Consult Needed?: Yes Social Work Consult Order Exists: Acknowledge Further Case Management Needs?: Case Management Needs Chart Review PCP Verified?: Patient does not have PCP No PCP Details: no insurance noted at this time. will need MD Direct referral fo r PCP. Prior to Admission: Functional/Environmental Assessment Bathing: Independent Dressing: Independent Toileting: Independent Medication administration: Independent Transfers: Independent Ambulation: Independent Meal preparation: Independent Number of stairs into home: 1(single level home) Prior to Admission: Support Services Transportation (Name & Phone): medicaid transportation benefit Case Management Re-Review Case Management Re-Review Needed?: Yes Case Management Re-Review Date: 07/14/20 Discharge Planning Living Arrangements: Alone Support Systems: Family members, Friends/neighbors Type of Residence: Private residence Patient/family informed of need for discharge planning?: Yes Patient expects to be discharged to:: home Does the patient need discharge transport arranged?: Yes Note: Patient is currently on unit 6[facility] Medical ICU. Chart reviewed. Spoke with angela hatfield via telephone. Introduced self and the CM role. Patient verbalized underst anding. Patient confirmed demographic information. Patient agreed to MD Bowen r eferral for PCP. Preference is for a provider in [facility]. Discussed potentia l d/c planning needs and advised d/c planning is dependent on hospital course an d clinical outcomes. Awaiting PT/OT recommendations. Case management will contin ue to follow case to assist in formalizing a d/c plan. Patient verbalized unders tanding and agreed. Referred case to Financial Resource Office.Per financial natural resources instructor, patient is medicaid pending at this time; anticipate medicaid to become active tomorrow. Referred case to DTP, potential decision making barriers to discharge planning: h/o substance use, if STR is recommended potential level 2 trigger for mental he alth, lack of insurance coverage. SW consult placed for Psychosocial assessment. Referred case to MD Bowen. D/c planning is ongoing. Unit CM to follow case. Melony Mathews * Conchita Cooney MBBS - 07/07/2020 9:05 AM EST ICU PROGRESS NOTE Subjective Pt was seen and examined at the bed side. Patient reports that he has chronic knee and back pain that he takes oxycodone f or and this is what is bother him the most. He also has some abdominal pain toda y, diffusely all over. He reports nausea, however has not had any further episod es since yesterday. Events of the last 24 hours: No further episodes of hematemesis. Multiple small bowel movements, dark in colo r. GI on board: EGD yesterday: severe esophagitis extending to most of the esophagu s except 10 % upper portion. Gastritis. No varices, or bleeding sites. PPI BID now Diet to dental soft, however not tolerated, switched to pureed. Review of Systems Constitutional: Negative for chills and fever. Respiratory: Negative for cough and shortness of breath. Cardiovascular: Negative for chest pain, palpitations and leg swelling. Gastrointestinal: Positive for abdominal distention, abdominal pain, blood in st ool, diarrhea and nausea. Negative for constipation and vomiting. Genitourinary: Negative for difficulty urinating and dysuria. Musculoskeletal: Positive for arthralgias and back pain. Neurological: Negative for dizziness, light-headedness and headaches. Objective Vitals: 07/07/20 0500 07/07/20 0600 07/07/20 0700 07/07/20 0800 BP: 137/81 151/95 130/77 140/74 Pulse: 73 80 67 82 Resp: (!) 28 (!) 28 (!) 23 (!) 26 Temp: SpO2: 97% 97% 92% (!) 89% Tmax: Temp (24hrs), Av.8 C (98.2 F), Min:36.5 C (97.7 F), Ma x:37.2 C (99 F) Intake/Output Summary (Last 24 hours) at 07/07/2020 0905 Last data filed at 07/07/2020 0800 Gross per 24 hour Intake 3691.89 ml Output 1450 ml Net 2241.89 ml I/O this shift: In: 129.9 [I.V.:129.9] Out: - Recent Labs 07/06/20 0219 07/06/20 2208 07/07/20 0818 POCGLU 173* 262* 126 Physical Exam: Physical Exam Vitals signs reviewed. HENT: Head: Normocephalic and atraumatic. Neck: Musculoskeletal: Normal range of motion. Cardiovascular: Rate and Rhythm: Normal rate and regular rhythm. Pulmonary: Effort: Pulmonary effort is normal. Breath sounds: Normal breath sounds. Abdominal: General: There is distension. Tenderness: There is abdominal tenderness (left lower quad>> ). There is no guarding. Skin: General: Skin is warm. Neurological: General: No focal deficit present. Mental Status: He is alert and oriented to person, place, and time. Psychiatric: Mood and Affect: Mood normal. Behavior: Behavior normal. LABS: Recent Labs 07/06/20173507/07/201107/07/2043 WBC 5.6 5.2 5.1 HGB 10.0* 10.1* 10.3* HCT 28.9* 29.2* 29.8* MCV 91.9 91.3 91.4 PLT 70* 69* 65* Recent Labs 07/06/20173507/07/201107/07/20 0543 NEUTOPHILPCT 77 73 76 MONOPCT 11 9 7 Recent Labs 07/06/2042507/06/20113407/06/20213807/07/2043 NA 131* 130* -- 137 K 3.2* 3.4 3.6 3.5 CL 88* 89* -- 100 BICARBONATE 12* 16* -- 24 BUN 41* 35* -- 18 CREATININE 1.39* 1.38* -- 0.96 GLUCOSE 145* 179* -- 140 Lab Results Component Value Date PROT 5.5 (L) 07/07/2020 ALBUMIN 3.8 07/07/2020 AST 41 (H) 07/07/2020 ALT 25 07/07/2020 TBILI 0.7 07/07/2020 ALKPHOS 49 07/07/2020 Recent Labs 07/06/2042507/06/20113407/06/20213807/07/20 0543 CALCIUM 6.7* 7.1* -- 6.9* MG 1.7 2.0 2.0 -- PHOS 2.6 1.7* 0.7* -- Recent Labs 07/06/20425 INR 1.21 No results for input(s): PO2ART, PXK9YAN, I2QPXXKZLRUD in the last 168 hours. Mr. Kobe Verma is a 55 y.o. male with a history of alcoholic cirrhosis who presents from [facility] for Hemodynamically stable GI bleed. Events of last 24 hours - EGD on 07/06: esophagitis of almost entire esophagus, gastritis, no bleeding/or varices seen. - No BZD/withdrawal overnight - Received home atarax for anxiety - Continues to have pain in abdomen, and throat pain now post EGD - positive for C diff, started vancomycin #Hemodynamically stable GI bleed - Patient presented with melena and coffee-ground emesis, Hb 16 - Last EGD was about 8 months ago and per patient unremarkable - Hb here 12.1, now ~10 - c/w protonix IV BID - Trending CBC Q12 H now - EGD on 07/06: esophagitis of almost entire esophagus, gastritis, no bleeding/or varices seen. - GI will f/u with pt in 2 months, and repeat EGD in 3 months -PPI IV BID while in hospital, transition to PPI BID oral on discharge - Dental soft diet, advance as tolerated #C diff infection - diarrhea panel positive for c diff - starting PO vancomycin - still on PPI BID #Hypophosphatemia - likely consequence of chronic alcohol intake - was 0.9 this morning - c/w with replacement #Alcoholic cirrhosis -Diagnosed approximately 1 year ago -Pharmacy consult placed for assistance with medication -reached out to patients PCP for med list/clinical notes -US Abdomen neg for ascites, echogenic liver -CT OSH: cirrhosis present #Anion Gap Metabolic Acidosis, resolved #WALLACE,resolved - Etiology could be prerenal due to poor p.o. intake or hepatorenal syndrome - Creatinine 2.3 at [facility] - baseline cr is 1.0 - Patient received 2 L IV fluid - received albumin possible hepatorenal component - most recent cr is 0.96, anion gap now 13 (from 32) #Pancolitis/Esophagitis #Lactic acidosis, resolved - CT A/P OSH: Christiansen-colitis, and esophagitis (denied any diarrhea), and cirrhosis - on exam left lower quad tenderness - Lactic elevated at 9.8 on admission, now 1.4 (resolved) - received zosyn for christiansen-colitis - will c/w ceftriaxone at this time #Alcohol use disorder - last drink on 07/05: took 3-4 shots Ethyl alcohol level 0.26 OSH, 0.06 here - ICU alcohol withdrawal protocol started - c/w thiamine/FA - social work on board - clinically not in active withdrawal this morning or overnight #Depression #Anxiety - hospitalized [facility] for suicidal ideation - takes hydroxyzine Q6H PRN for anxiety, continuing #Opioid dependence - patient states that he is 10 mg oxycodone Q6H at home for chronic knee/back pa in - reports that his provider is Dr. Yoni Gaviria in [place] at [facility] - no prescriptions on ISTOP - faxed release of information paperwork for medlist/visit notes to [facility] - will c/w with oxycodone 10mg Q6H for now Thrombocytopenia - secondary to liver cirrhosis - platelets are 65 DVT Prophylaxis: held in setting of bleed GI Prophylaxis: PPi Reason: Known GI bleed Disposition: ICU for GI bleed Code Status: Full Code Conchita Cooney MBBS 07/07/2020 Associated attestation - Mala Rossi MD - 07/07/2020 5:09 PM EST I saw and evaluated the patient. Discussed with the resident and agree with the residents findings and plans as written, along with any supplemental dictated a nd/or attending documentation in the patient record by myself. * Conchita Cooney MBBS - 07/06/2020 10:51 AM EST ICU PROGRESS NOTE Subjective Pt was seen and examined at the bed side. Patient reports that he has chronic knee and back pain that he takes oxycodone f or and this is what is bother him the most. He also has some abdominal pain toda y, diffusely all over. He reports nausea, however has not had any further episod es since yesterday. Events of the last 24 hours: No further episodes of hematemesis, has had no BM for last 3 days GI on board: EGD under mod sedation this afternoon, recommend starting lactulose to promote 2-3 bowel movements daily, and prevent increase in ammonia, monitori ng CBC, c/w PPI and octreotide Review of Systems Constitutional: Negative for chills and fever. Respiratory: Negative for cough and shortness of breath. Cardiovascular: Negative for chest pain, palpitations and leg swelling. Gastrointestinal: Positive for abdominal distention, abdominal pain, blood in st ool, constipation, nausea and vomiting. Negative for diarrhea. Genitourinary: Negative for difficulty urinating and dysuria. Musculoskeletal: Positive for arthralgias and back pain. Neurological: Negative for dizziness, light-headedness and headaches. Objective Vitals: 07/06/20 0700 07/06/20 0800 07/06/20 0900 07/06/20 1000 BP: 151/83 167/89 156/79 167/99 Pulse: 91 86 80 94 Resp: (!) 29 (!) 19 (!) 25 (!) 20 Temp: 36.6 C (97.9 F) SpO2: 99% 100% 100% 100% Tmax: Temp (24hrs), Av.4 C (97.5 F), Min:36.2 C (97.1 F), Ma x:36.6 C (97.9 F) Intake/Output Summary (Last 24 hours) at 07/06/2020 1051 Last data filed at 07/06/2020 1000 Gross per 24 hour Intake 731.81 ml Output 900 ml Net -168.19 ml I/O this shift: In: 731.8 [I.V.:331.6; IV Piggyback:400.2] Out: - Recent Labs 07/06/20 0219 POCGLU 173* Physical Exam: Physical Exam Vitals signs reviewed. Constitutional: Appearance: He is ill-appearing (flushed skin ). HENT: Head: Normocephalic and atraumatic. Mouth/Throat: Mouth: Mucous membranes are dry. Neck: Musculoskeletal: Normal range of motion. Cardiovascular: Rate and Rhythm: Normal rate and regular rhythm. Pulmonary: Effort: Pulmonary effort is normal. Breath sounds: Normal breath sounds. Abdominal: General: There is distension. Tenderness: There is abdominal tenderness (left lower quad>> ). There is no guarding. Skin: General: Skin is warm. Neurological: General: No focal deficit present. Mental Status: He is alert and oriented to person, place, and time. Psychiatric: Mood and Affect: Mood normal. Behavior: Behavior normal. LABS: Recent Labs 07/06/20 0809 WBC 8.8 HGB 12.1* HCT 35.2* MCV 91.3 PLT 88* Recent Labs 07/06/20 0809 NEUTOPHILPCT 82 MONOPCT 12 Recent Labs 07/06/20 0426 NA 131* K 3.2* CL 88* BICARBONATE 12* BUN 41* CREATININE 1.39* GLUCOSE 145* Lab Results Component Value Date PROT 5.7 (L) 07/06/2020 ALBUMIN 3.3 (L) 07/06/2020 AST 74 (H) 07/06/2020 ALT 37 07/06/2020 TBILI 0.6 07/06/2020 ALKPHOS 66 07/06/2020 Recent Labs 07/06/20 0426 CALCIUM 6.7* Recent Labs 07/06/20 0426 INR 1.21 No results for input(s): PO2ART, TER8AIN, [id number] in the last 168 hours. Mr. Kobe Verma is a 55 y.o. male with a history of alcoholic cirrhosis who presents from [facility] due to GI bleed, WALLACE and elevated lactic acid to 9. #Hemodynamically stable GI bleed -Patient presented with melena and coffee-ground emesis, Hb 16 -Last EGD was about 8 months ago and per patient unremarkable - Hb here 12.1, now 9.9 - c/w protonix, and octreotide, and zosyn - GI on board: EGD this afternoon - Trending CBC Q6H #Alcoholic cirrhosis -Diagnosed approximately 1 year ago -Pharmacy consult placed for assistance with medication -reached out to patients PCP for med list/clinical notes -US Abdomen neg for ascites, echogenic liver -CT OSH: cirrhosis present #Anion Gap Metabolic Acidosis #WALLACE, improving - Etiology could be prerenal due to poor p.o. intake or hepatorenal syndrome - Creatinine 2.3 at [facility] - baseline cr is 1.0 - Patient received 2 L IV fluid - received albumin possible hepatorenal component - most recent cr is 1.38 - c/w monitoring BMP - most recent BMP showed gap of 25 (from 32), Bicarb 16 (from 12) #Pancolitis/Esophagitis #Lactic acidosis, resolved - CT A/P OSH: Christiansen-colitis, and esophagitis (denied any diarrhea), and cirrhosis - on exam left lower quad tenderness - Lactic elevated at 9.8 on admission, now 1.4 (resolved) - received zosyn for christiansen-colitis - will c/w christiansen-colitis at this time #Alcohol use disorder - last drink on 07/05: took 3-4 shots Ethyl alcohol level 0.26 OSH, 0.06 here - ICU alcohol withdrawal protocol started - c/w thiamine/FA - clinically not in active withdrawal this morning #Depression #Anxiety - hospitalized [facility] for suicidal ideation - takes hydroxyzine Q6H anxiety, held as he is on withdrawal protocol #Opioid dependence - patient states that he is 10 mg oxycodone Q6H at home for chronic knee/back pa in - reports that his provider is Dr. Yoni Gaviria in [place] at [facility] - no prescriptions on ISTOP - faxed release of information paperwork for medlist/visit notes to [facility] - will c/w with oxycodone 10mg Q6H for now DVT Prophylaxis: heparin GI Prophylaxis: PPi Reason: Known GI bleed Disposition: ICU for GI bleed Code Status: Full Code Conchita Cooney MBBS 07/06/2020 Associated attestation - Mala Rossi MD - 07/06/2020 5:07 PM EST I saw and evaluated the patient. Discussed with the resident and agree with the residents findings and plans as written, along with any supplemental dictated a nd/or attending documentation in the patient record by myself. * Conchita Cooney MBBS - 07/06/2020 7:31 AM EST * Felix Arreola, RN - 07/06/2020 4:05 AM EST If wound was present on admission, this documentation was sent to attending prov ider for cosignature. documented in this encounter H&P Notes * Shira Leija MBBS - 07/06/2020 12:10 PM EST PRESEDATION ASSESSMENT Diagnosis: Pre-Sedation Assessment Chief Complaint/History of Present Illness: upper gi bleed Past Medical/Surgical History: Past Medical History: Diagnosis Date Anxiety Arthritis Chronic pain associated with significant psychosocial dysfunction 10/22/2 019 Depression Diabetes mellitus Hypertension Low back pain Rheumatoid arthritis Stroke 2011 Thyroid disease Past Surgical History: Procedure Laterality Date APPENDECTOMY CHOLECYSTECTOMY Problems with Sedation/Anesthesia? no Potential Drug/Sedative Interaction? no Family History: family history includes Asthma in his father; COPD in his mother ; Cancer in his mother; Diabetes in his father; Heart disease in his father; No Known Problems in his brother and sister. Review of Systems: No fevers or chills, usual state of health Current Medications: Medications Prior to Admission Medication Sig Dispense Refill Last Dose atenolol (TENORMIN) 100 MG tablet Take 100 mg by mouth daily. capsaicin (CAPZASIN HP) 0.1 % topical cream Apply topically Three times d aily as needed (for pain)Can be used with lidocaine pain. 42.5 g 0 esomeprazole (NEXIUM) 40 MG capsule Take 40 mg by mouth every morning bef ore breakfast. hydrOXYzine (ATARAX) 25 MG tablet Take 25 mg by mouth Three times daily a s needed for Itching. Indomethacin (INDOCIN PO) Take by mouth. lisinopril (PRINIVIL,ZESTRIL) 10 MG tablet Take 10 mg by mouth daily. Allergies/Reactions Allergies Allergen Reactions Niacin And Related Hives Prednisone Rash Vicodin [Hydrocodone-Acetaminophen] Nausea Only Pt is only has intolerance to Hydrocodone(nausea)- No known intolerance/allerg y to Tylenol Physical Exam: Visit Vitals BP 152/86 Pulse 91 Temp 36.6 C (97.9 F) (Oral) Resp (!) 29 Ht 1.727 m (5' 8") Wt 86.3 kg (190 lb 4.1 oz) SpO2 100% BMI 28.93 kg/m Airway: III Lungs:CTA Heart:RRR ASA Physical Status Classification: ASA 3 - Patient with moderate systemic disea se with functional limitations Treatment Plan: Moderate Sedation Rationale: Comfort and analgesia Procedure: EGD Patient has been explained about the risks of the procedure including the risk f or perforation, corrective surgery, possible ostomy, chances of splenic injury r esulting in splenectomy, bleeding from and intervention during the procedure or later (which may require blood transfusion), complications of anesthesia/moderat e sedation (including aspiration pneumonia, cardiac arrhythmias, respiratory dec ompensation, which may require CPR). Associated attestation - Fortunato Orourke MD - 07/07/2020 8:05 AM EST Reviewed * Juanito Severino DO - 07/06/2020 4:09 AM EST History & Physical Patient Kobe Verma PCP Keon Anaya DO Admission Date 07/06/2020 Chief Complaint/Reason for Admission: Kobe is coming in today as a transfer from another hospital , due to GI bleed Subjective History of Presenting Illness MrLaurie Verma is a 55 y.o. male with a past medical history as mentioned b ani and most significant for depression with prior hospitalization, alcohol use disorder, tobacco use, alcoholic cirrhosis and anxiety who presents as a transf er from [facility] for evaluation of GI bleed. Patient reports that he was in his usual state of health until about 1 week ago when he began to notice black stools. His last bowel movement was 3 days ago an d was completely black. He has been unable to tolerate p.o. intake for the last 4 days. When he tries to eat or drink anything he begins to vomit. He started to notice coffee-ground emesis yesterday which prompted him to go to the ED. Patient recently moved back to [place] from [place] about a week ago and he states that he lost all of his medications on the bus-he hasn't taken any of his medications in the past week. In regards to his medical history he reports that he was diagnosed with cirrhosis about 8 months ago and he underwent an end oscopy at that time-per him there were no abnormalities. He also reports having colonoscopy about 6 to 8 months ago and reports that some polyps were noted. He does take Protonix daily however had not been taking it for past 1 week. He de nies having vomiting or melena in the past. He denies any NSAID use. At [facility], patient received 2L NS fluid bolus, vancomycin, zosyn, zofran , reglan, fentanyl and was started on protonix ggt. He had CT A/P without contra st which showed esophagitis, pancolitis and no obstruction/perforation. Laborato ry work showed Hg 16, WBC 17 , Cr 2.3, Lactic acid 9.8, At [facility], patient was afebrile and hemodynamically stable. Labs pending. He is alert, oriented, in no acute distress. Active Ambulatory Problems Diagnosis Date Noted Arthritis of ankle 08/09/2014 Rheumatoid arthritis 12/02/2014 Suicidal behavior 10/28/2018 Osteoarthritis of multiple joints 10/28/2018 Other chronic pain 10/28/2018 Class 1 obesity due to excess calories without serious comorbidity with b jerald mass index (BMI) of 32.0 to 32.9 in adult 10/28/2018 Type 2 diabetes mellitus without complication, without long-term current use of insulin 10/28/2018 Moderate episode of recurrent major depressive disorder 10/28/2018 Depression 06/19/2019 Opiate abuse, continuous 06/21/2019 Suicidal ideation 06/21/2019 Anxiety 06/21/2019 Alcohol abuse 06/21/2019 Chronic pain associated with significant psychosocial dysfunction 019 Resolved Ambulatory Problems Diagnosis Date Noted No Resolved Ambulatory Problems Past Medical History: Diagnosis Date Arthritis Diabetes mellitus Hypertension Low back pain Stroke 2011 Thyroid disease Past Surgical History APPENDECTOMY CHOLECYSTECTOMY Social History He is Single. He lives with their family. He reports that he has been smoking [employer]. He has a 30.00 pack-year smoking history. He has never used smokeless tobacco. He reports that he does not drink alcohol or use drugs. Travel: History of travel to [place] recently. Family History His family history includes Asthma in his father; COPD in his mother; Cancer in his mother; Diabetes in his father; Heart disease in his father; No Known Proble ms in his brother and sister. Home Medications Medication Sig atenolol (TENORMIN) 100 MG tablet Take 100 mg by mouth daily. capsaicin (CAPZASIN HP) 0.1 % topical cream Apply topically Three times daily as needed (for pain)Can be used with lidocaine pain. esomeprazole (NEXIUM) 40 MG capsule Take 40 mg by mouth every morning before keara akfast. hydrOXYzine (ATARAX) 25 MG tablet Take 25 mg by mouth Three times daily as neede d for Itching. Indomethacin (INDOCIN PO) Take by mouth. lisinopril (PRINIVIL,ZESTRIL) 10 MG tablet Take 10 mg by mouth daily. Allergies: Niacin and related, Prednisone, and Vicodin [hydrocodone-acetaminophe n] Review of Systems Constitutional: Positive for appetite change and fatigue. Negative for activity change. HENT: Negative for congestion and trouble swallowing. Respiratory: Negative for cough, chest tightness and shortness of breath. Cardiovascular: Negative for chest pain, palpitations and leg swelling. Gastrointestinal: Positive for abdominal pain, blood in stool, constipation, julito sea and vomiting. Negative for abdominal distention and diarrhea. Genitourinary: Negative for difficulty urinating, dysuria and frequency. Musculoskeletal: Positive for arthralgias. Negative for back pain. Skin: Negative for color change and pallor. Neurological: Negative for dizziness, speech difficulty, weakness, light-headedn ess, numbness and headaches. Psychiatric/Behavioral: Negative for agitation and confusion. The patient is ner vous/anxious. Objective Physical Exam Constitutional: He is oriented to person, place, and time. Non-toxic appearance . He appears ill. No distress. HENT: Head: Normocephalic and atraumatic. Mouth/Throat: Mucous membranes are moist. No oropharyngeal exudate. Oropharynx i s clear. Eyes: Right eye exhibits no discharge. Left eye exhibits no discharge. Cardiovascular: Regular rhythm and normal pulses. Tachycardia present. No murmur heard. Pulmonary/Chest: Effort normal and breath sounds normal. No respiratory distress . He has no wheezes. Abdominal: Soft. Normal appearance and bowel sounds are normal. He exhibits no d istension. There is abdominal tenderness. There is no rebound and no guarding. Musculoskeletal: Right lower leg: No edema. Left lower leg: No edema. Neurological: He is alert and oriented to person, place, and time. Skin: He is not diaphoretic. Psychiatric: His behavior is normal. Mood, judgment and thought content normal. Nursing note and vitals reviewed. Laboratory Data (Most Recent over Past 3 Years) Lab 10/28/18 1132 06/22/19 0621 HGBA1C 6.3* 7.0* Invalid input(s): BILDIR All laboratory, imaging and other diagnostics have been personally reviewed by ramon licona. In addition I reviewed the patient's allergy list , medication list and old rec ords . Assessment & Plan Mr. Kobe Verma is a 55 y.o. male with a history of alcoholic cirrhosis who presents from [facility] [facility], WALLACE and elevated lactic acid to 9. Active Problems: #Hemodynamically insignificant GI bleed with no acute blood loss anemia -Patient presented with melena and coffee-ground emesis, Hg 16 -We will place patient on Protonix drip, octreotide drip (hx of alcohol use) and trend [id number] will call GI in the morning for possible endoscopy -Last EGD was about 8 months ago and per patient unremarkable #Alcoholic cirrhosis -Diagnosed 8 months ago in [place] -Pharmacy consult placed; unclear what medications patient was taking -Ordered abdominal ultrasound to evaluate for any ascites however abdomen does n ot appear to be too distended #WALLACE -Creatinine 2.3 at [facility] (several years was normal) -Etiology could be prerenal due to poor p.o. intake or hepatorenal syndrome -Patient received 2 L IV fluid, will see if repeat creatinine is improved and if this is pre-renal -Also started patient on albumin if this is hepatorenal in nature #Pancolitis #Lactic acidosis -No history of inflammatory bowel disease -CT abdomen pelvis from outside hospital showing pancolitis; patient admits to ower quadrant abdominal pain however denies any diarrhea -Lactic was elevated to 9.8; repeating here, if persistently elevated will need to rule out ischemic colitis -Will cover empirically for any infectious causes of pancolitis with zosyn at th is time #Alcohol use disorder -Last drink was yesterday with 4 shots of liquor and alcohol level was 0.26% (re ference range 0-0.01) -We will place on [facility] protocol #Depression #Anxiety -Has had prior hospitalization for this, again unclear what medications he has b een taking however patient is sure he is taking hydroxyzine- ordered this #Opioid use -Previously listed in his chart as opioid use disorder -Patient states that he takes 10 mg oxycodone 4 times a day for his rheumatoid a rthritis -Nothing available on I stop, gave one-time 10 mg to prevent any withdrawal DVT Prophylaxis: heparin GI Prophylaxis: PPi Reason: Known GI bleed Disposition: Will admit to ICU for GI bleed Code Status: Full Code The patient was discussed with Fortunato Mckinley and will be discussed with Mala Rossi MD who agrees with the assessment and plan as noted above. Signature: Juanito Severino DO Date/Time: July 06, 2020 4:09 AM Associated attestation - Mala Rossi MD - 07/06/2020 5:04 PM EST I saw and evaluated the patient. Discussed with the ICU team and agree with Dr Severino's findings and plans as written, along with any supplemental dictated and/ or attending documentation in the patient record by myself. documented in this encounter Procedure Notes * Evelyn Reese MD - 07/06/2020 6:34 AM EST Associated Order(s): Central Line Post-Procedure Diagnose(s): Colitis; Gastrointestinal hemorrhage, unspecified ga strointestinal hemorrhage type Kobe Verma is a 55 y.o. male patient. No diagnosis found. Past Medical History: Diagnosis Date Anxiety Arthritis Chronic pain associated with significant psychosocial dysfunction 019 Depression Diabetes mellitus Hypertension Low back pain Rheumatoid arthritis Stroke 2011 Thyroid disease Blood pressure 149/79, pulse 96, temperature 36.2 C (97.1 F), temperatur e source Oral, resp. rate (!) 29, height 1.727 m, weight 86.3 kg (190 lb 4.1 oz) , SpO2 100 %. Central Line Date/Time: 07/06/2020 6:34 AM Performed by: Evelyn Reese MD Authorized by: Mala Rossi MD Consent: Verbal consent obtained. Risks and benefits: risks, benefits and alternatives were discussed Consent given by: patient Patient understanding: patient states understanding of the procedure being perfo rmed Patient consent: the patient's understanding of the procedure matches consent gi rody Procedure consent: procedure consent matches procedure scheduled Patient identity confirmed: verbally with patient Indications: vascular access Sedation: Patient sedated: no Location details: right femoral Ultrasound guidance: yes Successful placement: yes Post-procedure: line sutured and dressing applied Comments: Femoral line successfully placed Evelyn Reese 07/06/2020 Associated attestation - Mala Rossi MD - 07/06/2020 5:07 PM EST Note reviewed, no immediate post procedure complications. documented in this encounter Consult Notes * Leonides Johnson, PharmD - 07/09/2020 9:19 AM EST Associated Order(s): IP CONSULT TO PHARMACY Pharmacy Medication History Review Prior to Admission Medications Prescriptions Last Dose Informant Patient Reported? Taking? Aspirin 325 MG Oral Tablet Yes Yes Sig: Take 325 mg by mouth daily Atorvastatin Calcium 80 MG Oral Tablet (LIPITOR) Pharmacy Yes Yes Sig: Take 80 mg by mouth daily Gabapentin 100 MG Oral Capsule (NEURONTIN) Yes Yes Sig: Take 200 mg by mouth Three times daily as needed Tamsulosin HCl 0.4 MG Oral Capsule (FLOMAX) Yes Yes Sig: Take 0.4 mg by mouth daily esomeprazole (NEXIUM) 20 MG capsule Yes Yes Sig: Take 20 mg by mouth Two Times Daily oxyCODONE HCl 10 MG Oral Tablet Yes Yes Sig: Take 1 tablet by mouth Four times daily as needed Facility-Administered Medications: None Patient could only recall Nexium and Aspirin, medication history primarily ob[facility]i [place] [facility] pharmacy. Medication History Source: [facility] [phone] The above prior to admission medications have been compared to current inpatient orders. Discrepancies: The following medications were not restarted inpatient: 1. Aspirin 2. Atorvastatin 3. Gabapentin 4. Tamsulosin Recommendations: Please consider restarting home medications as clinically appropriate Medication history was completed based on information available during this sheela ent encounter, the list above may not be all inclusive. Thank you, Jonathan BanuelosD Associated attestation - Francisca Barger PharmD - 07/09/2020 9:47 AM EST Agree w/above * Park Quan LCSW - 07/07/2020 4:38 PM EST Associated Order(s): IP CONSULT TO SOCIAL WORK; IP CONSULT TO SOCIAL WORK Social Work Psychosocial Assessment - Initial Patient Name: Kobe Verma Pronoun he/him/his Date of : 1965 County of Residence: [place] Admitting Dx: Liver failure, renal failure, GI bleed GI bleed Admitting Provider: Katarzyna Haas MD Referral Type: Inpatient Referral Source: Social Work Reason for Referral: Psychosocial Assessment Alcohol Use Date: July 07, 2020 Emergency Contacts Name: adair Verma shirley Relationship: Father Mother [address]: [address] [address] [place] [phone] [address] [address] [place] [phone] Home: Work: Mobile: Primary Caregiver: self Informant(s): Patient Authorized to Consent: self Patient's Description of the Problem Rheumatoid Arthritis, Liver Failure Family's/Guardian's Description of the Problem N/A Precipitating Events Drank Alcohol day of admission during move from [place] to [facility] Family Constellation and Support System Kobe is Single. He describes his family as stable Kobe's support system consists of immediate family, friends, siblings Living Situation Living Situation: House Lives With: Roommate(s) Can you return after discharge? Yes Socioeconomic History Social Needs Financial resource strain: Not on file Social Needs Food insecurity Worry: Not on file Inability: Not on file Social Needs Transportation needs Medical: Not on file Non-medical: Not on file Education Not currently in school/taking classes Educational Assistance Special Services None None Barriers to Learning Learns Best By None Doing, Hearing, Seeing Highest Level of Education Completed Communication High school graduate Writes, Reads, Talks, Comprehends information Employment Disability Financial Health Insurance: Payor: / SSDI Receiving Consistently? Yes /Service Experience Patient denies Sexual Orientation and Gender Identity Gender Identity Preferred Pronoun Male he/him/his Sexual Orientation Straight (not lesbian or hsu) Current and Past Significant Relationships Pertinent Development Events Patient denies Health History Including Hospitalizations and Surgeries Kobe has a past medical history of Anxiety, Arthritis, Chronic pain associated with significant psychosocial dysfunction (06/22/2019), Depression, Diabetes me llitus, Hypertension, Low back pain, Rheumatoid arthritis, Stroke (2011), and Th yroid disease. He has a past surgical history that includes Appendectomy and Ch olecystectomy. Developmental Disabilities Patient denies Hobbies and Leisure Yes, patient reports hobbies and leisure activities [employer] cards Spiritual, Cultural, Anglican Patient denies Multidisciplinary Cultural Assessment 1. Where were you born?: [place] 2. What languages are spoken in your home?: Turkmen 3. What other languages do you speak?: Turkmen 4. Are you able to read and write in Turkmen?: Yes 5. Can you tell me your experiences with health care providers?: Not reported 6. Who do you rely on when you're ill?: Self 7. Would you like us to contact someone from your place of shinto or jonathan?: N o 8. Describe your usual diet: No reported 9. Are there times during the year when you change your diet in celebration of eli or other ethnic holidays?: No 10. Are there certain healthcare prodecures or tests which your culture prohibit s?: No 11. Are there other considerations we should know about to serve your health nee ds?: Not reported 12. What barriers exist for you in obtaining your medications, keeping doctor ap pointments, etc.? Explain: Transporation Childhood/Peer Relationships None Abuse and Neglect Childhood? Patient denies childhood abuse/neglect Adulthood? Patient denies adulthood abuse/neglect Perpetrator? Patient denies perpetrating abuse/neglect Trauma History Patient denies Sex Offenses Patient denies Legal Issues Patient denies Substance Use Disorder or Dependency Patient denies DAST-10 Assessment Most Recent Value Complete DAST-10? Complete Drug Abuse Screening Test (DAST-10) Have you used drugs other than those required for medical reasons? No Do you use more than one drug at a time? No Are you always able to stop using drugs when you want to? Have you had "blackouts" or "flashbacks" as a result of drug use? Do you ever feel bad or guilty about your drug use? Does your spouse (or parents) ever complain about your involvement with drugs? Have you neglected your family because of your use of drugs? Have you engaged in illegal activities in order to obtain drugs? Have you ever experienced withdrawal symptoms (felt sick) when you stopped takin g drugs? Have you had medical problems as a result of your drug use (e.g., memory loss. h epatitis, convulsions, bleeding, etc.)? DAST-10 Score AUDIT Assessment Most Recent Value Complete AUDIT? Complete Alcohol Use Disorders Identification Test (AUDIT) How often do you have a drink containing alcohol? Monthly or less How many drinks containing alcohol do you have on a typical day when you are dri nking? 3 or 4 How often do you have six or more drinks on one occasion? Less than Monthly How often during the last year have you found that you were not able to stop dri nking once you had started? Never How often during the last year have you failed to do what was normally expected from you because of drinking? Never How often during the last year have you needed a first drink in the morning to g et yourself going after a heavy drinking session? Never How often during the last year have you had a feeling of guilt or remorse after drinking? Never How often during the last year have you been unable to remember what happened th e night before because you had been drinking? Never Have you or someone else been injured as a result of your drinking? No Has a relative or freind or doctor or another health worker been concerned about your drinking or suggested you cut down? No AUDIT Score 3 Current Mental Health Symptoms (last two weeks) Mental Status Exam Admission (Current) from OP Visit from 07/06/[address] [facility] Appearance appropriate Speech appropriate Mood appropriate Affect appropriate Thought Form coherent Thought Content appropriate Orientation person, place, purpose, time Intelligence average Memory intact Insight good Judgement good Behaviors appropriate Comments Mental Health History Yes, patient reports mental health history Psych treatment compliant? No Psych Diagnoses Diagnosis Age/Date of Dx Diagnosed By Treatment Setting Treatment History/Comme nts Depression Anxiety Needs referrals Safety Community Services Kobe is not currently receiving any community services. Agency/Resource Slurry Control Tender Phone Patient/agent was informed of the choice and offered a written list for facility , home care agency, durable medical equipment, provider or hospice for the [facility] in which the patient resides or as requested by the patient/agent; th e patient/agent deferred list. Individual Strengths Individual Opportunities Remain alcohol free Engage in AA meetings. Family Strengths Family Opportunities N/A N/A Clinical Impression/Assessment/Summary (addressing DSM-5 and CPT codes) Patient reported he just moved back to [facility] from [place]. His parents are both , 2 brothers . He has a sister and a brother living and he is staying with a friend of his. Patient reported he quit drinking about 8 ye ars ago and recently drank alcohol during his move back to [facility], drank about 4 be ers. He stated he doesn't do substances, "they scare me." He reported experienc ing depression and anxiety he previously was seeking treatment for about a year ago. He was admitted for 1 week to a psychiatric inpatient stay in [facility] for suicidal ideations. He currently denies any ideations, plan or intent. Angela hatfield reported he did have psychiatrist following his inpatient stay however rodriguez snot have services set up yet since he moved. This show card writer provided referral to [facility] in [place]. This show card writer also provided in formation for AA meeting in his area as he had requested. Patient stated he will need transportation home as he does not have anyone to pick him up. Patient is able to ride the bus if medicaid transport is not available. Treatment Plan Get connected to Psychiatric services and Alcohol anonymous Goals and Objectives Obtain psychiatrist for medication services and attend AA meetings. Interventions Referred to outpatient mental health and AA Meetings. Encouraged patient to avoi d drugs and alcohol. Encouraged direct communication. Encouraged problem solving . Assessed for SW needs. Length of visit with patient: 30 minutes Signature: Park Quan Date: July 07, 2020 * Park Quan LCSW - 07/06/2020 4:34 PM EST SW received consult for alcohol use. This show card writer attempted to meet with patient however patient was sleeping. Sw was not able to reach patient by phone in room either. SW will make another attempt to consult with patient at later time. * Shira Leija MBBS - 07/06/2020 9:44 AM EST Associated Order(s): IP CONSULT TO GI Gastroenterology Consult Note Reason for consult: Upper GI bleed Physician requesting consult: Mala Rossi MD Physician performing the consult: Dr. Orourke HISTORY History of Presenting Illness Mr. Kobe Verma is a 55 y.o. male with a medical Hx significant for depressi on, anxiety, alcohol use disorder, tobacco use, alcoholic cirrhosis presented as a transfer from [facility] for evaluation and management of an upper GI ble ed. Patient reports that he was in his usual state of health until about 1 week ago when he began to notice black tarry watery stools. His last bowel movement was 3 days ago and was completely black. He has been unable to tolerate p.o. intake for the last 4 days. When he tries to eat or drink anything he begins to vomit. He started to notice black coloured emesis yesterday which prompted him to go to the ED.He reports having multiple episodes throughout the day. Patient recently moved back to [place] from [place] about a week ago and he states that he lost all of his medications on the bus-he hasn't taken any of his medications in the past week. In regards to his medical history he reports that he was diagnosed with cirrhosis about 8 months ago and he underwent an end oscopy and colonoscopy - pt does not remember the results of the scopes. Pt rep orts h/o significant acid reflux for which he has been taking a daily PPI but no ne in the lat 4 days or so as he lost them. At [facility], patient received 2L NS fluid bolus, vancomycin, zosyn, zofran , reglan, fentanyl and was started on protonix ggt. He had CT A/P without contra st which showed esophagitis, pancolitis and no obstruction/perforation. Laborato ry work showed Hg 16, WBC 17 , Cr 2.3, Lactic acid 9.8. At [facility] ICU, resuscitation was continued and PPI and octreotide drips initiat ed and GI was consulted. During my encounter with the patient he was AO x 3, todd d his last alcohol drink was yesterday - he had 4 shots of vodka in between his multiple episodes of coffee ground emesis. Pt reports he quit drinking alcohol 8 months ago when he was diagnosed with cirrhosis. However yesterday his anxiety was uncontrolled which prompted his to drink. (etoh levels were high at [facility]). Due to significant volume losses he was also very tired and had a fall at home. He also complained of significant lower abdominal cramping. Pt denies u sing NSAID's or any anticoagulant agents. He was asymptomatic at the time of my encounter . Last BM was 3 days ago. Pt is agreeable to undergo an EGD if needed. His labs are improving at [facility] : creatinine and lactic acid are downtrending after IVF resuscitation. Previous Endoscopies: pt repots EGD and colonoscopy done at [place] 8 mon ths ago. No reports are available. Past Medical & Surgical History Past Medical History: Diagnosis Date Anxiety Arthritis Chronic pain associated with significant psychosocial dysfunction 019 Depression Diabetes mellitus Hypertension Low back pain Rheumatoid arthritis Stroke 2012 Thyroid disease Past Surgical History: Procedure Laterality Date APPENDECTOMY CHOLECYSTECTOMY Allergies Allergen Reactions Niacin And Related Hives Prednisone Rash Vicodin [Hydrocodone-Acetaminophen] Nausea Only Pt is only has intolerance to Hydrocodone(nausea)- No known intolerance/allerg y to Tylenol Home Medications Medication Sig atenolol (TENORMIN) 100 MG tablet Take 100 mg by mouth daily. capsaicin (CAPZASIN HP) 0.1 % topical cream Apply topically Three times daily as needed (for pain)Can be used with lidocaine pain. esomeprazole (NEXIUM) 40 MG capsule Take 40 mg by mouth every morning before keara akfast. hydrOXYzine (ATARAX) 25 MG tablet Take 25 mg by mouth Three times daily as neede d for Itching. Indomethacin (INDOCIN PO) Take by mouth. lisinopril (PRINIVIL,ZESTRIL) 10 MG tablet Take 10 mg by mouth daily. Medications at this time albumin human 100 g Intravenous Once folic acid IVPB 1 mg Intravenous Daily heparin (porcine) 5,000 Units Subcutaneous BID piperacillin-tazobactam 3.375 g Intravenous Q8H thiamine (VITAMIN B1) IVPB 500 mg Intravenous Q24H calcium gluconate IVPB, hydrOXYzine, magnesium sulfate, potassium chloride OR* * potassium chloride, potassium phosphate OR potassium phosphate, sodium kentrell sphate OR sodium phosphate lactated ringers 100 mL/hr (07/06/20726) octreotide (SANDOSTATIN) infusion 50 mcg/hr (07/06/20722) pantoprozole (PROTONIX) infusion 8 mg/hr (07/06/20721) Social History He is Single. He reports that he has been smoking cigarettes. He has a 30.00 pac k-year smoking history. He has never used smokeless tobacco. He reports that he does not drink alcohol or use drugs. Family History family history includes Asthma in his father; COPD in his mother; Cancer in his mother; Diabetes in his father; Heart disease in his father; No Known Problems i n his brother and sister. Review of systems: General: denies fevers, chills, + of generalized fatigue Head and neck: denies headache, visual disturbances, dry mouth GI: +melena, + coffee ground emesis, + lower abdominal pain, Heart / Lungs: denies chest pain, cough, SOB Musculoskeletal : denies problems with ROM, no edema PHYSICAL EXAMINATION Blood pressure 167/89, pulse 86, temperature 36.6 C (97.9 F), temperatur e source Oral, resp. rate (!) 19, height 1.727 m (5' 8"), weight 86.3 kg (190 lb 4.1 oz), SpO2 100 %. Vitals: stable, as mentioned above. General : pt lying down comfortably, AO x 3, co-operative and not in acute distr ess Head and neck : eyes: no pallor or icterus, EOM intact, No palpable LAD. Respiratory : clear to auscultate B/L with equal air entry, no added sounds hear d Cardiac : S1, S2+ , no murmurs appreciated Abdomen : Appears non distended, BS+ , Tender to palpate in the lower abdominal quadrant, No guarding /rigidity /masses felt. NICANOR: normal rectal tone and no st ool, melena or blood on examining finger. Extremities : no edema, normal ROM Neurological : AO x3, no focal deficits, moves all 4 limbs freely DATA REVIEW All relevant laboratory data, outside records and imaging that were available we re reviewed by me. Pertinent ones are listed here. Laboratory Data: Lab 07/06/20 0809 HGB 12.1* HCT 35.2* MCV 91.3 PLT 88* WBC 8.8 Lab 07/06/20 0426 NA 131* K 3.2* CL 88* BICARBONATE 12* BUN 41* CREATININE 1.39* Lab 07/06/20 0426 PROT 5.7* ALBUMIN 3.3* ALT 37 AST 74* ALKPHOS 66 TBILI 0.6 Lab 07/06/20 0426 INR 1.21 Imaging and other investigations: Us Abdomen Complete Result Date: 07/06/2020 FINDINGS: Liver: Liver measures 17.5 cm in length and demonstrates diffuse incre ased echogenicity. No intrahepatic biliary duct dilatation. Gallbladder: Status post cholecystectomy. Common bile duct: Extrahepatic bile ducts are obscured by bowel gas. Pancreas: Pancreas is obscured by bowel gas. Right kidney: Right kidn ey measures 11.7 cm in length. No hydronephrosis. Left kidney: Left kidney measu res 10.7 cm in length. No hydronephrosis. Spleen: Spleen measures 11.5 cm in [facility] and is unremarkable. Bladder: Distended urinary bladder. Bladder volume 317 mL. Bilateral ureteral jets are visualized. Aorta: Obscured by bowel gas. Inferi or vena cava: Obscured by bowel gas. Intraperitoneal space: Trace free fluid. No large volume of ascites. IMPRESSION: 1. Diffusely echogenic liver. This is nonspecific and may represent diffuse fatty infiltration or other diffuse hepatocellular process. 2. Status po st cholecystectomy. 3. No evidence of hydronephrosis. 4. Distended urinary bladd er. Bilateral ureteral jets are visualized. 5. Trace free fluid. No large volume of ascites. ASSESSMENT AND PLAN Mr. Kobe Verma is a 55 y.o. male with a medical Hx significant for depressi on, anxiety, alcohol use disorder, tobacco use, alcoholic cirrhosis who presente d to [facility] with symptoms of 3 days of melena and multiple episodes of e mesis followed by coffee ground emesis. He has been hemodynamically stable, Hb w as 16 at the OSH and today is 12.6 after adequate resuscitation.Likely that sheela ent was very volume depleted hence had an elevated BUN/Creat, elevated Hb and la ctic acidosis. Labs are improving with IVF's. CT abdomen/pelvis done at OSH showed esophagitis and pancolitis. However he has not had a BM in 3 days for us to check for infectious causes of colitis and this also rules out active GI bleeding as blood is a cathartic agent. However regarding the GI bleeding, differentials for HD stable upper GIB include : esophagitis, AVM's, PUD, less likely to be variceal however it is a possibilit y. Elizabeth suarez tear is a another possibility. Pt will need an EGD to evaluate the above mentioned causes. On reviewing his labs. Pt is thrombocytopenic (Plts are 88), AST >ALT suggestive of alcohol induced liver injury, INR is 1.2 and albumin is low at 3.3. Patient possibly has hemodynamically stable UGI bleed - Resuscitation is of paramount importance in any GI bleed. - Ensure patient has 2 large bore IV cannulae for access. Resuscitate with IVF's and blood products as needed to keep H/H > 7/21. - Frequent CBC checks, q6-8h - Avoid all anticoagulation, antiplatelet drugs, NSAIDs. - Please continue protonix drip @ 8mg/hr and octreotide drip @ 50 units/hr. - Plan for EGD under moderate sedation today to evaluate for above mentioned cau ses - Keep pt NPO - Please notify the GI fellow if there is any change in the clinical status of t he pt - profuse bleeding, major drop in H/H or hemodynamic instability. Compensated alcohol induced liver cirrhosis - MELD-Na 18, CHILD Class A - Start lactulose to avoid HE: titrate to 2-3 bm's a day - avoid hepatotoxic agents - Will need outpatient HCM for liver cirrhosis management. Pancolitis - seen on imaging at OSH - Pt has no diarrhea or BM x 3 days. Please obtain infectious workup of stool if he starts having bowel movement. - For suprapubic cramping please rule out other causes - check a urine analysis. Consider starting a bowel regimen as well - lactulose preferably. The patient was discussed with Dr. Orourke who agrees with the above assessment and plan. Shira Leija MBBS 07/06/2020 9:44 AM Associated attestation - Fortunato Orourke MD - 07/07/2020 8:05 AM EST I personally saw and evaluated the patient with Dr. Leija and the above docu mentation with my edits represents our in tandem history / physical exam / revie w of testing / assessment and recommendations. See EGD report. documented in this encounter Miscellaneous Notes * Plan of Care - Lizzy Mcqueen RN - 07/10/2020 1:47 PM EST Patient alert and oriented, VSS Meds delivered to bedside * Plan of Care - Lizzy Mcqueen RN - 07/10/2020 1:25 PM EST Patient alert and oriented, VSS. No issues reported or observed. Provider removed quad central femoral line. Discharge in process, contacted case management for home needs/ride. * Assessment & Plan Note - Faustina Zarco OT - 07/10/2020 10:28 AM EST Occupational Therapy Acute Care Functional Living Examination Medical Diagnosis: Upper GI Bleed. CDiff Colitis. Alcohol use disorder / cirrhosis. Electrolyte disturbance. History of Present Illness: Per H and P in Epic: Mr. Kobe Verma is a 55 y.o. male with a past medical history as mentioned below and most significant for depression with prior hospitalization, alcohol use disorder, tobacco use, alcoholic cirrhosis and anxiety who presents as a transfer from [facility] for evaluation of GI bleed. ? Patient reports that he was in his usual state of health until about 1 week ago when he began to notice black stools. His last bowel movement was 3 days ago and was completely black. He has been unable to tolerate p.o. intake for the last 4 days. When he tries to eat or drink anything he begins to vomit. He started to notice coffee-ground emesis yesterday which prompted him to go to the ED. ? Patient recently moved back to [place] from [place] about a week ago and he states that he lost all of his medications on the bus-he hasn't taken any of his medications in the past week. In regards to his medical history he reports that he was diagnosed with cirrhosis about 8 months ago and he underwent an endoscopy at that time-per him there were no abnormalities. He also reports having colonoscopy about 6 to 8 months ago and reports that some polyps were noted. He does take Protonix daily however had not been taking it for past 1 week. He denies having vomiting or melena in the past. He denies any NSAID use. Date of Admission: 07/06/2020 3:03:00 AM Demographics: Age: 55 Gender: Male Past Medical History and Radiographics: Significant rehabilitation considerations: Arthritis of ankle08/09/2014 Rheumatoid /03/2015 Suicidal mzyyoqxb57/27/2019 Osteoarthritis of multiple prpksx8810/28/2018 Other chronic pain10/28/2018 Class 1 obesity due to excess calories without serious comorbidity with body mass index (BMI) of 32.0 to 32.9 in adult10/28/2018 Type 2 diabetes mellitus without complication, without long-term current se of fabauht9110/28/2018 Moderate episode of recurrent major depressive axkykhvm07/27/2019 Sxcvhwvloz91/19/2019 Opiate abuse, nbpaqzfrgs55/21/2019 Suicidal ifphflre72/21/2019 Hnsygha0506/21/2019 Alcohol abuse06/21/2019 Chronic pain associated with significant psychosocial fuxjamotyam40/22/2019 Rehabilitation Precautions/Restrictions: Full Code. Contact Plus Precautions. Activity: ambulate as tolerated. SUBJECTIVE Premorbid Level of Activities of Daily Living: Independent in all. No device for mobility. Does not drive, takes medicaid transport to appointments. Independent with all IADL's. One fall in the past 6 months, tripped over a dog. Occupation: disability Social History: Patient does not live alone. Patient lives with friend . If needed: Friend is willing to assist. Pt's friend does not work and is able to assist as needed. Home Environment: There are 1 steps to enter the home with Bilateral handrails. There is no ramp to enter the home. Home is a single level. Description of bed and bathroom accessibility: accessible bedroom and full bathroom + walk in shower with shower chair and grab bars. . Equipment Owned: Shower chair. Grab bars in tub/shower. Bedside commode. Rolling walker. Straight cane. Pain: Patient currently complains of pain. Location: omari ankles . Patient describes pain as Nonspecific. Verbal Scale: Patient reports a pain level of 8 out of 10. Pain Medication Today: yes. OBJECTIVE General Observation: Pt was supine in bed with HOB elevated, NAD. Pt is + IV's. Bed alarm was on at start of session. Vital Signs: Stable. UPPER EXTREMITY FUNCTION Hand Dominance: right. Range of Motion: Grossly intact to assist with ADL's and functional transfers. Strength: Grossly WFL for functional transfers and to assist with ADL's. Skin Integrity Screen: visualized areas intact. vascular access at R groin Endurance: good (-). Tone/Spasticity: No relevant impairments. Sensation: Grossly intact. Edema: No edema is present. LOWER EXTREMITY FUNCTION: Grossly WFL to assist with bed mobility. Cognitive Screen: Responsiveness: Alert. Orientation: The patient is oriented to person, place and time. Following Commands: The patient is able to follow 3+ step commands Memory: Normal. Communications: able to make needs, speaks Turkmen Executive Function: F/G . Attention: Normal. Cognitive Test Score: Not tested. Vision Screen: Functional visual impairments observed as follows: reading glasses Perception: Perception was within normal limits with today's examination. Functional Mobility: Pt declined OOB at this time stating "I just walked with the other álvaro" referring to the physical therapist around the room. Per PT eval on 07/10/20 the Pt was independent with functional transfers/mobility without assistive device. Pt reports no "issues" walking except for pain in Omari ankles from RA. Fine Motor Coordination: Upper extremity fine motor coordination is grossly intact. Gross Motor Coordination: Upper extremity gross motor coordination is intact. Balance: Not assessed. Activities of Daily Living: Feeding: Independent. Reported by patient/family. Grooming: Independent. Reported by patient/family. Bathing - Upper Body: Not assessed. Bathing - Lower Body: Not assessed. Upper Body Dressing: Independent. Observed patient during task. simulated task Lower Body Dressing: Modified Independent. Observed patient during task. simulated task Toileting: Independent. Reported by patient/family. Toilet Transfer: Independent. Reported by patient/family. Outcome Measure: [facility] "6 Clicks" Daily Activity Inpatient Short Form: Putting on and taking off regular lower body clothing: No assistance (4) Bathing (including washing, rinsing, and drying): No assistance (4) Toileting (including use of toilet, bedpan, or urinal): No assistance (4) Putting on and taking off regular upper body clothing: No assistance (4) Taking care of personal grooming such as brushing teeth: No assistance (4) Eating meals: No assistance (4) Raw Score: 24 /24 Interventions: None provided today. Splinting: No splint issued today. Education: Educational needs: plan of care, discharge planning, role of OT Barriers to Learning: Acuity of illness/injury. Learning Preference: Auditory. Demonstration. Mode of education provided: Explanation. Demonstration. Audience: Patient. Education Provided: plan of care, discharge planning, role of OT . Response: Verbalized understanding. ASSESSMENT Low Complexity Evaluation: An occupational profile and medical and therapy history, which includes a brief history including review of medical and/or therapy records relating to the presenting problem. An assessment(s) that identifies 1-3 peformance deficits (i.e., relating to physical, cognitive, or psychosocial skills) that result in activity limitations and/or participation restrictions. Clinical decision-making of low complexity which includes an analysis of the occupational profile, analysis of data from problem-focused assessment(s), and consideration of a limited number of treatment options. Response to Evaluation: The session was tolerated well. Bed alarm was on at end of session. Call downey was in patient's reach at end of session. Pain: Yes, pain is unchanged from start of today's treatment. Strengths: Accessible home environment. Independent premorbid function. Social/family support. Goals: Patient's functional goals: "To go home today." The patient's therapy goals are based on limitations/impairments in the following areas: No impairments noted at this time. Short Term Goals: Not applicable. No impairments noted. Gear Generator Set Up Operator Goals: Not applicable. PLAN Treatment Frequency, Duration and Interventions: Occupational Therapy services are discontinued at this time secondary to: Goals have been MET. No need for skilled therapy intervention at this time. Equipment Provided: None issued this visit. Equipment Recommended: None, patient has necessary equipment at home. Recommended Occupational Therapy Follow Up: Upon acute care discharge, the following is currently recommended: Assistance as needed with IADL's and supervision with ADL's as needed. Recommended Consults: Physical Therapy. Development of Plan of Care: Participants included: Patient. Goal Review Visit Number: 1 Visit Number: Today's visit is number 1 Program: General Medicine (Therapist may be reached on Wireless Generation) SESSION: Duration: 38 CHARGES: - 0 Units - 0 Units - 0 Units 85964 - CHARGE - OT EVAL; LOW COMPLEXITY 3 Units - GENERAL MEDICINE VISIT 1 Units - ORDER - OCCUPATIONAL THERAPY CONSULT 1 Units Total treatment minutes: 38.00 Minutes Electronically Signed by: Faustina Zarco OTR, 07/10/2020 11:53:03 AM * Plan of Care - Lizzy Mcqueen RN - 07/10/2020 10:14 AM EST Admitted from [facility] for possible GI bleed, admitted on 07/06. Hx etoh usee, anxiety, DM RA, HTN, polysubstance abuse Patient alert and oriented, VSS, on 2L NC. Patient on puree/thin ADA diet, with ACHS fingersticks, no coverage. Patient is on precautions for cdiff, taking oral vanco Quad central line placed right femoral, capped on iv abx No issues observed or reported, provider to pull line out prior to discharge. Patient request meds to bed, also needs transportation home when ready. * Interim Summary - Melony Mathews RN - 07/10/2020 9:14 AM EST Kobe Verma transferred to unit 10 E from unit 6I. This CM handoff report is provided for receiving CM. Patient admitted from [facility] with complaints of Liver failure, renal failure, GI bleed GI bleed. Patient Level of Care remains Acute at this time. INSTRUCTOR EXTENSION WORK: lives alone. Independent and ambulatory. Kobe's supports include Family members;Friends/neighbors, and they are availabl e to assist the patient with discharge. Decision Maker/HCP: patient Kobe does not have a complex CM following, and is on the Difficult to Place lis t. Potential decision making barriers to discharge planning: h/o substance use, if STR is recommended potential level 2 trigger for mental health, lack of insuranc e coverage. Referred case to Financial Resource Office. Per financial natural resources instructor , patient is medicaid pending activation. Referred case to [facility] for PCP referral. referred case to for Psychosocial assessment. Transfer Agreement: Yes D/c planning is ongoing. Awaiting Medical/PT/OT recommendations. Unit 10 E CM to continue to follow case. Melony Mathews * Assessment & Plan Note - Everardo Freitas, PT - 07/10/2020 8:45 AM EST Physical Therapy Acute Care Examination Medical Diagnosis: Upper GI Bleed. CDiff Colitis. Alcohol use disorder / cirrhosis. Electrolyte disturbance. History of Present Illness: Per H and P in Epic: Mr. Kobe Verma is a 55 y.o. male with a past medical history as mentioned below and most significant for depression with prior hospitalization, alcohol use disorder, tobacco use, alcoholic cirrhosis and anxiety who presents as a transfer from [facility] for evaluation of GI bleed. ? Patient reports that he was in his usual state of health until about 1 week ago when he began to notice black stools. His last bowel movement was 3 days ago and was completely black. He has been unable to tolerate p.o. intake for the last 4 days. When he tries to eat or drink anything he begins to vomit. He started to notice coffee-ground emesis yesterday which prompted him to go to the ED. ? Patient recently moved back to [place] from [place] about a week ago and he states that he lost all of his medications on the bus-he hasn't taken any of his medications in the past week. In regards to his medical history he reports that he was diagnosed with cirrhosis about 8 months ago and he underwent an endoscopy at that time-per him there were no abnormalities. He also reports having colonoscopy about 6 to 8 months ago and reports that some polyps were noted. He does take Protonix daily however had not been taking it for past 1 week. He denies having vomiting or melena in the past. He denies any NSAID use. Date of Onset: as described above Date of Admission: 07/06/2020 3:03:00 AM Demographics: Age: 55 Gender: Male Past Medical History and Radiographics: Significant rehabilitation considerations: Arthritis of ankle08/09/2014 Rheumatoid uxeayiuew72/03/2015 Suicidal bqaoneid57/27/2019 Osteoarthritis of multiple juuyqt4810/28/2018 Other chronic pain10/28/2018 Class 1 obesity due to excess calories without serious comorbidity with body mass index (BMI) of 32.0 to 32.9 in adult10/28/2018 Type 2 diabetes mellitus without complication, without long-term current se of fnqgcfr8810/28/2018 Moderate episode of recurrent major depressive teeydyny08/27/2019 Cvfeczlfvw73/19/2019 Opiate abuse, icecnxbcnb04/21/2019 Suicidal uxtgseyw58/21/2019 Kenreun3506/21/2019 Alcohol abuse06/21/2019 Chronic pain associated with significant psychosocial tewqihpfrwh84/22/2019 s/p appendectomy s/p cholecystectomy Rehabilitation Precautions/Restrictions: Full Code. Contact Plus Precautions. Activity: ambulate as tolerated. SUBJECTIVE Mental Status: Orientation:The patient is oriented to person, place and time. Command Following:The patient is able to follow 3+ step commands Prior Functional Level: The patient reported the premorbid level of function was independent with all functional mobility and self care. States that he can "do everyone on my own." Pt states that he always has pain due to rheumatoid arthritis. Occupation: not specified. Social History: Patient does not live alone. Patient lives with friend . If needed: Friend is willing to assist. Pt just moved to [facility] from [place]. Home Environment: There are 1 steps to enter the home with not specified There is no ramp to enter the home. Home is a single level. Description of bed and bathroom accessibility: . Equipment Owned: None. Pain: Patient currently complains of pain. Location: bilat ankles . Patient describes pain as Nonspecific. Verbal Scale: Patient reports a pain level of 8 out of 10. Will perform therapy only as tolerated. Pt reports that nursing will be providing pain medication soon. Pain Medication Today: yes. OBJECTIVE General Observation: Pt in bed. Awake and alert. No bed alarm noted at start of session. Range of Motion: AROM is functional for mobility below Strength: functional for independent mobility as described below Skin Integrity Screen: visualized areas intact. vascular access at R groin Tone/Spasticity: WNL throughout. Sensation: intact per pt's report. Balance: no balance deviations identified or reported. Endurance: No obvious SOB. Pt denies any difficulty. He is on room air. Coordination: grossly intact. Therapeutic/Functional Activities: Bed Mobility: independent Transfers: sit to/from stand independently. Locomotion/Wheelchair: Not applicable for this patient at this time. Locomotion/Gait/Ambulation: Ambulating independently at this time. Changes direction without difficulty. Stairs: not assessed Vital Signs: Stable. Outcome Measures: [facility] "6 Clicks" Basic Mobility Inpatient Short Form: Turning over in bed: No difficulty (4) Sitting down on and standing up from a chair with arms: No difficulty (4) Moving from lying on back to sitting on the side of the bed: No difficulty (4) Moving to and from a bed to a chair (including a wheelchair): No help (4) Walking in hospital room: No help (4) Climbing 3-5 steps with a railing: No help (4) Raw Score 24 /24. Interventions: None provided today. Education: Educational needs: none Barriers to Learning: No barriers. Learning Preference: Auditory. Mode of education provided: Explanation. Audience: Patient/family. Education Provided: Role of acute PT . Response: Applied knowledge. Verbalized understanding. Pt feels that he is at his functional baseline. ASSESSMENT Low Complexity Evaluation: Clinical decision-making of low complexity using standardized patient assessment instrument and/or measurable assessment of functional outcome. Response to Evaluation: No acute PT needs indentified. Pt is mobilizing independently. States that he has ankle pain that is normal for him due to rheumatoid arthritis. He is cleared for d/c home from a PT standpoint. Pt agrees that he doesn't have any physical therapy needs at this time. He states, "I'm good." Returned to bed to eat breakfast. Pain: Yes, pain is unchanged from start of today's treatment. Other Rehabilitation Considerations: Patient's progress may be impaired by the following potential barriers: No potential barriers to progress. Support Structure: Lives with a friend Strengths: mobilizing independently at this time Goals: Patient's functional goals: Be able to tolerate food. Home d/c today if possible The patient's therapy goals are based on limitations/impairments in the following areas: Baseline level impairments that do not require restorative therapy at this time. Short Term Goals: Not applicable. No impairments noted. Gear Generator Set Up Operator Goals: Not applicable. PLAN Treatment Frequency, Duration and Interventions: Physical Therapy services are discontinued at this time secondary to: Goals have been MET. No need for skilled therapy intervention at this time. Equipment Provided: None issued this visit. Equipment Recommended: None. Recommended Physical Therapy Follow Up: Upon acute care discharge, the following is currently recommended: None at this time. Recommended Consults: None currently. Development of Plan of Care: Participants included: Patient. Goal Review Visit Number: 1 Visit Number: Today's visit is number 1 Program: General Medicine (Therapist may be reached on Wireless Generation) SESSION: Duration: 8 CHARGES: - 0 Units 18875 - CHARGE - PT EVAL; LOW COMPLEXITY 1 Units - GENERAL MEDICINE VISIT 1 Units - ORDER - PHYSICAL THERAPY CONSULT 1 Units - STAT ONLY VISIT 1 Units Total treatment minutes: 8.00 Minutes Electronically Signed by: Everardo Freitas PT, DPT, 07/10/2020 9:01:59 AM * Plan of Care - Cristobal Luis RN - 07/09/2020 10:44 PM EST Problem: Sensory Perception is less than 4 (< 4) Goal: Improve Sensory Perception Outcome: Progressing Problem: Moisture is less than 4 (< 4) Goal: Eliminate Moisture Outcome: Progressing Problem: Activity is less than 4 (< 4) Goal: Improve Activity Outcome: Progressing Problem: Mobility is less than 4 (< 4) Goal: Improve Mobility Outcome: Progressing Problem: Nutrition is Less than 3 (< 3) Goal: Improve Nutrition Outcome: Progressing Problem: Friction Shear is less than 3 (< 3) Goal: Eliminate Friction Shear Outcome: Progressing Problem: Hemodynamic Status Goal: Patient will remain hemodynamically stable Description: Patient's vital signs, oxygenation, and labs will be monitored and deviations addressed. Outcome: Progressing Problem: Pain Goal: Pain is controlled to patient's desired goal Outcome: Progressing Problem: Risk for impaired skin integrity Goal: Skin integrity is maintained or improved Outcome: Progressing Problem: Fall Prevention Goal: No fall during Hospitalization Outcome: Progressing Problem: Impaired Physical Mobility Goal: Patient will maintain maximum physical mobility within prescribed activity and weight bearing restrictions Outcome: Progressing Problem: Risk for Infection Goal: The patient will receive immunization screening as indicated Outcome: Progressing Problem: Risk for DVT/PE Goal: Patient will not develop a DVT/PE Outcome: Progressing Problem: Risk for Gastrointestinal Complications Goal: Patient will not develop gastrointestinal complications Description: Nausea/vomiting, constipation, dehydration Outcome: Progressing Problem: Psychosocial Needs Goal: Psychosocial needs will be met during this hospitalization Outcome: Progressing Problem: Discharge Needs Goal: Patient discharge needs are met Description: Collaborate with interdisciplinary team and initiate plans and inte rventions as needed Outcome: Progressing Problem: Risk for Falls Goal: No falls during hospitalization Description: Patient will not fall during hospitalization. Outcome: Progressing Problem: Knowledge Deficit Goal: Knowledge - personal safety Description: Patient will verbalize understanding of fall prevention. Outcome: Progressing * Plan of Care - Cristobal Luis RN - 07/09/2020 1:57 AM EST Problem: Sensory Perception is less than 4 (< 4) Goal: Improve Sensory Perception Outcome: Progressing Problem: Moisture is less than 4 (< 4) Goal: Eliminate Moisture Outcome: Progressing Problem: Activity is less than 4 (< 4) Goal: Improve Activity Outcome: Progressing Problem: Mobility is less than 4 (< 4) Goal: Improve Mobility Outcome: Progressing Problem: Nutrition is Less than 3 (< 3) Goal: Improve Nutrition Outcome: Progressing Problem: Friction Shear is less than 3 (< 3) Goal: Eliminate Friction Shear Outcome: Progressing Problem: Hemodynamic Status Goal: Patient will remain hemodynamically stable Description: Patient's vital signs, oxygenation, and labs will be monitored and deviations addressed. Outcome: Progressing Problem: Pain Goal: Pain is controlled to patient's desired goal Outcome: Progressing Problem: Risk for impaired skin integrity Goal: Skin integrity is maintained or improved Outcome: Progressing Problem: Fall Prevention Goal: No fall during Hospitalization Outcome: Progressing Problem: Impaired Physical Mobility Goal: Patient will maintain maximum physical mobility within prescribed activity and weight bearing restrictions Outcome: Progressing Problem: Risk for Infection Goal: The patient will receive immunization screening as indicated Outcome: Progressing Problem: Risk for DVT/PE Goal: Patient will not develop a DVT/PE Outcome: Progressing Problem: Risk for Gastrointestinal Complications Goal: Patient will not develop gastrointestinal complications Description: Nausea/vomiting, constipation, dehydration Outcome: Progressing Problem: Psychosocial Needs Goal: Psychosocial needs will be met during this hospitalization Outcome: Progressing Problem: Discharge Needs Goal: Patient discharge needs are met Description: Collaborate with interdisciplinary team and initiate plans and inte rventions as needed Outcome: Progressing Problem: Risk for Falls Goal: No falls during hospitalization Description: Patient will not fall during hospitalization. Outcome: Progressing Problem: Knowledge Deficit Goal: Knowledge - personal safety Description: Patient will verbalize understanding of fall prevention. Outcome: Progressing * Plan of Raysa Lainez RN - 07/08/2020 12:56 PM EST Problem: Sensory Perception is less than 4 (< 4) Goal: Improve Sensory Perception Outcome: Progressing Problem: Moisture is less than 4 (< 4) Goal: Eliminate Moisture Outcome: Progressing Problem: Activity is less than 4 (< 4) Goal: Improve Activity Outcome: Progressing Problem: Mobility is less than 4 (< 4) Goal: Improve Mobility Outcome: Progressing Problem: Nutrition is Less than 3 (< 3) Goal: Improve Nutrition Outcome: Progressing Problem: Friction Shear is less than 3 (< 3) Goal: Eliminate Friction Shear Outcome: Progressing Problem: Hemodynamic Status Goal: Patient will remain hemodynamically stable Description: Patient's vital signs, oxygenation, and labs will be monitored and deviations addressed. Outcome: Progressing Problem: Pain Goal: Pain is controlled to patient's desired goal Outcome: Progressing Problem: Risk for impaired skin integrity Goal: Skin integrity is maintained or improved Outcome: Progressing Problem: Fall Prevention Goal: No fall during Hospitalization Outcome: Progressing Problem: Impaired Physical Mobility Goal: Patient will maintain maximum physical mobility within prescribed activity and weight bearing restrictions Outcome: Progressing Problem: Risk for Infection Goal: The patient will receive immunization screening as indicated Outcome: Progressing Problem: Risk for DVT/PE Goal: Patient will not develop a DVT/PE Outcome: Progressing Problem: Risk for Gastrointestinal Complications Goal: Patient will not develop gastrointestinal complications Description: Nausea/vomiting, constipation, dehydration Outcome: Progressing Problem: Psychosocial Needs Goal: Psychosocial needs will be met during this hospitalization Outcome: Progressing Problem: Discharge Needs Goal: Patient discharge needs are met Description: Collaborate with interdisciplinary team and initiate plans and inte rventions as needed Outcome: Progressing Problem: Risk for Falls Goal: No falls during hospitalization Description: Patient will not fall during hospitalization. Outcome: Progressing Problem: Knowledge Deficit Goal: Knowledge - personal safety Description: Patient will verbalize understanding of fall prevention. Outcome: Progressing * Plan of Care - Cristobal Luis RN - 07/08/2020 12:56 AM EST Problem: Sensory Perception is less than 4 (< 4) Goal: Improve Sensory Perception Outcome: Progressing Problem: Moisture is less than 4 (< 4) Goal: Eliminate Moisture Outcome: Progressing Problem: Activity is less than 4 (< 4) Goal: Improve Activity Outcome: Progressing Problem: Mobility is less than 4 (< 4) Goal: Improve Mobility Outcome: Progressing Problem: Nutrition is Less than 3 (< 3) Goal: Improve Nutrition Outcome: Progressing Problem: Friction Shear is less than 3 (< 3) Goal: Eliminate Friction Shear Outcome: Progressing Problem: Hemodynamic Status Goal: Patient will remain hemodynamically stable Description: Patient's vital signs, oxygenation, and labs will be monitored and deviations addressed. Outcome: Progressing Problem: Pain Goal: Pain is controlled to patient's desired goal Outcome: Progressing Problem: Risk for impaired skin integrity Goal: Skin integrity is maintained or improved Outcome: Progressing Problem: Fall Prevention Goal: No fall during Hospitalization Outcome: Progressing Problem: Impaired Physical Mobility Goal: Patient will maintain maximum physical mobility within prescribed activity and weight bearing restrictions Outcome: Progressing Problem: Risk for Infection Goal: The patient will receive immunization screening as indicated Outcome: Progressing Problem: Risk for DVT/PE Goal: Patient will not develop a DVT/PE Outcome: Progressing Problem: Risk for Gastrointestinal Complications Goal: Patient will not develop gastrointestinal complications Description: Nausea/vomiting, constipation, dehydration Outcome: Progressing Problem: Psychosocial Needs Goal: Psychosocial needs will be met during this hospitalization Outcome: Progressing Problem: Discharge Needs Goal: Patient discharge needs are met Description: Collaborate with interdisciplinary team and initiate plans and inte rventions as needed Outcome: Progressing Problem: Risk for Falls Goal: No falls during hospitalization Description: Patient will not fall during hospitalization. Outcome: Progressing Problem: Knowledge Deficit Goal: Knowledge - personal safety Description: Patient will verbalize understanding of fall prevention. Outcome: Progressing * Plan of Care - Felix Arreola RN - 07/07/2020 12:45 AM EST Problem: Sensory Perception is less than 4 (< 4) Goal: Improve Sensory Perception Outcome: Progressing Problem: Moisture is less than 4 (< 4) Goal: Eliminate Moisture Outcome: Progressing Problem: Activity is less than 4 (< 4) Goal: Improve Activity Outcome: Progressing Problem: Mobility is less than 4 (< 4) Goal: Improve Mobility Outcome: Progressing Problem: Nutrition is Less than 3 (< 3) Goal: Improve Nutrition Outcome: Progressing Problem: Friction Shear is less than 3 (< 3) Goal: Eliminate Friction Shear Outcome: Progressing Problem: Hemodynamic Status Goal: Patient will remain hemodynamically stable Description: Patient's vital signs, oxygenation, and labs will be monitored and deviations addressed. Outcome: Progressing Problem: Pain Goal: Pain is controlled to patient's desired goal Outcome: Progressing Problem: Risk for impaired skin integrity Goal: Skin integrity is maintained or improved Outcome: Progressing Problem: Fall Prevention Goal: No fall during Hospitalization Outcome: Progressing Problem: Impaired Physical Mobility Goal: Patient will maintain maximum physical mobility within prescribed activity and weight bearing restrictions Outcome: Progressing Problem: Risk for Infection Goal: The patient will receive immunization screening as indicated Outcome: Progressing Problem: Risk for DVT/PE Goal: Patient will not develop a DVT/PE Outcome: Progressing Problem: Risk for Gastrointestinal Complications Goal: Patient will not develop gastrointestinal complications Description: Nausea/vomiting, constipation, dehydration Outcome: Progressing Problem: Psychosocial Needs Goal: Psychosocial needs will be met during this hospitalization Outcome: Progressing Problem: Discharge Needs Goal: Patient discharge needs are met Description: Collaborate with interdisciplinary team and initiate plans and inte rventions as needed Outcome: Progressing Problem: Risk for Falls Goal: No falls during hospitalization Description: Patient will not fall during hospitalization. Outcome: Progressing Problem: Knowledge Deficit Goal: Knowledge - personal safety Description: Patient will verbalize understanding of fall prevention. Outcome: Progressing * Plan of Care - Felix Arreola RN - 07/06/2020 4:37 AM EST Problem: Sensory Perception is less than 4 (< 4) Goal: Improve Sensory Perception 07/06/2020436 by Felix Arreola RN Outcome: Progressing 07/06/2020435 by Felix Arreola RN Outcome: Progressing Problem: Moisture is less than 4 (< 4) Goal: Eliminate Moisture 07/06/2020436 by Felix Arreola RN Outcome: Progressing 07/06/2020435 by Felix Arreola RN Outcome: Progressing Problem: Activity is less than 4 (< 4) Goal: Improve Activity 07/06/2020436 by Felix Arreola RN Outcome: Progressing 07/06/2020435 by Felix Arreola RN Outcome: Progressing Problem: Mobility is less than 4 (< 4) Goal: Improve Mobility 07/06/2020436 by Felix Arreola RN Outcome: Progressing 07/06/2020435 by Felix Arreola RN Outcome: Progressing Problem: Nutrition is Less than 3 (< 3) Goal: Improve Nutrition 07/06/2020436 by Felix Arreola RN Outcome: Progressing 07/06/2020435 by Felix Arreola RN Outcome: Progressing Problem: Friction Shear is less than 3 (< 3) Goal: Eliminate Friction Shear 07/06/2020436 by Felix Arreola RN Outcome: Progressing 07/06/2020435 by Felix Arreola RN Outcome: Progressing Problem: Hemodynamic Status Goal: Patient will remain hemodynamically stable Description: Patient's vital signs, oxygenation, and labs will be monitored and deviations addressed. Outcome: Progressing Problem: Pain Goal: Pain is controlled to patient's desired goal Outcome: Progressing Problem: Risk for impaired skin integrity Goal: Skin integrity is maintained or improved Outcome: Progressing Problem: Fall Prevention Goal: No fall during Hospitalization Outcome: Progressing Problem: Impaired Physical Mobility Goal: Patient will maintain maximum physical mobility within prescribed activity and weight bearing restrictions Outcome: Progressing Problem: Risk for Infection Goal: The patient will receive immunization screening as indicated Outcome: Progressing Problem: Risk for DVT/PE Goal: Patient will not develop a DVT/PE Outcome: Progressing Problem: Risk for Gastrointestinal Complications Goal: Patient will not develop gastrointestinal complications Description: Nausea/vomiting, constipation, dehydration Outcome: Progressing Problem: Psychosocial Needs Goal: Psychosocial needs will be met during this hospitalization Outcome: Progressing Problem: Discharge Needs Goal: Patient discharge needs are met Description: Collaborate with interdisciplinary team and initiate plans and inte rventions as needed Outcome: Progressing documented in this encounter Plan of Treatment Date/Time Name Type Priority Associated Diag noses 07/06/2020 4:26 AM EST Blood culture ; Microbiology Routine Peripheral 07/06/2020 4:26 AM EST Blood culture ; Microbiology Routine Peripheral Order Schedule Name Type Priority Associated Diag noses 4X Daily (AC & HS) for 30 Days starting 07/06/2020 until 08/05/2020, 14 completed POCT glucose, docked Point of Care Routine Testing-Docked Device AM Draw for 30 Days starting 07/09/2020 until 08/07/2020, 2 completed CBC and Differential Lab Routine AM Draw for 3 Occurrences starting 07/09 until 07/11/2020, 2 completed Comprehensive Metabolic Lab Routine Panel BID for 30 Days starting 07/10/2020 unti l 08/09/2020 Phosphorus Level Lab Timed Health Maintenance Due Date Last Done Comments Lipid Disorder Screening 1965 MMR Vaccines (1 of 1 - 1966 Standard series) Varicella Vaccines (1 of 1966 2 - 2-dose childhood series) Pneumococcal Vaccine: 1971 Pediatrics (0 to 5 Years) and At-Risk Patients (6 to 64 Years) (1 of 1 - PPSV23) DTaP,Tdap,and Td Vaccines 1972 (1 - Tdap) Diabetic Foot Exam 1983 Dilated Retinal Exam 1983 Urine Microalbumin 1983 Hepatitis B Vaccines (1 1984 of 3 - Risk 3-dose series) Colon Cancer Screening 10 2015 yrs Influenza Vaccine 06/01/2020 Hemoglobin A1c 01/04/2021 07/07/2020, 06/22/2019, 06/22/2019, Additional history exists Pneumococcal Vaccine: 65+ 2030 Years (1 of 1 - PPSV23) HIV Screening Completed 07/06/2020 Hepatitis C Screening (B. Completed 07/06/[id number]) HIB Vaccines Aged Out No longer eligible based on patient's age to complete this topic Hepatitis A Vaccines Aged Out No longer eligibl e based on patient's age to complete this topic IPV Vaccines Aged Out No longer eligible based on patient's age to complete this topic documented as of this encounter Procedures Comments Procedure Name Priority Date/Time Associated Diag nosis POCT GLUCOSE, DOCKED Routine 07/10/2020 11:55 AM EST POCT GLUCOSE, DOCKED Routine 07/10/2020 8:48 AM EST CBC AND DIFFERENTIAL Routine 07/10/2020 3:54 AM EST PHOSPHORUS LEVEL Timed 07/10/2020 3:54 AM EST MAGNESIUM LEVEL Routine 07/10/2020 3:54 AM EST COMPREHENSIVE METABOLIC Routine 07/10/2020 PANEL 3:54 AM EST PHOSPHORUS LEVEL Timed 07/09/2020 6:16 PM EST POCT GLUCOSE, DOCKED Routine 07/09/2020 4:49 PM EST PHOSPHORUS LEVEL Timed 07/09/2020 4:09 PM EST POCT GLUCOSE, DOCKED Routine 07/09/2020 12:24 PM EST PHOSPHORUS LEVEL Timed 07/09/2020 10:05 AM EST POCT GLUCOSE, DOCKED Routine 07/09/2020 7:50 AM EST CBC AND DIFFERENTIAL Routine 07/09/2020 12:47 AM EST PHOSPHORUS LEVEL Timed 07/09/2020 12:47 AM EST MAGNESIUM LEVEL Routine 07/09/2020 12:47 AM EST COMPREHENSIVE METABOLIC Routine 07/09/2020 PANEL 12:47 AM EST POCT GLUCOSE, DOCKED Routine 07/08/2020 9:24 PM EST POCT GLUCOSE, DOCKED Routine 07/08/2020 4:57 PM EST POCT GLUCOSE, DOCKED Routine 07/08/2020 12:50 PM EST PHOSPHORUS LEVEL Timed 07/08/2020 10:28 AM EST POCT GLUCOSE, DOCKED Routine 07/08/2020 8:42 AM EST CBC AND DIFFERENTIAL Timed 07/08/2020 2:11 AM EST PHOSPHORUS LEVEL Timed 07/08/2020 2:11 AM EST MAGNESIUM LEVEL Routine 07/08/2020 2:11 AM EST COMPREHENSIVE METABOLIC Routine 07/08/2020 PANEL 2:11 AM EST POCT GLUCOSE, DOCKED Routine 07/07/2020 9:53 PM EST EKG 12-LEAD - CMAXX 07/07/2020 REPORT 9:45 PM EST EKG 12-LEAD - CMAXX 07/07/2020 REPORT 9:45 PM EST EKG 12-LEAD STAT 07/07/2020 9:45 PM EST CBC AND DIFFERENTIAL Timed 07/07/2020 6:45 PM EST PHOSPHORUS LEVEL Routine 07/07/2020 6:45 PM EST POCT GLUCOSE, DOCKED Routine 07/07/2020 5:29 PM EST PHOSPHORUS LEVEL Timed 07/07/2020 5:29 PM EST MAGNESIUM LEVEL Routine 07/07/2020 5:29 PM EST POCT GLUCOSE, DOCKED Routine 07/07/2020 12:25 PM EST POCT GLUCOSE, DOCKED Routine 07/07/2020 12:23 PM EST POTASSIUM Routine 07/07/2020 8:22 AM EST PHOSPHORUS LEVEL Routine 07/07/2020 8:22 AM EST POCT GLUCOSE, DOCKED Routine 07/07/2020 8:18 AM EST CBC AND DIFFERENTIAL Timed 07/07/2020 5:43 AM EST HEMOGLOBIN A1C Routine 07/07/2020 5:43 AM EST COMPREHENSIVE METABOLIC Routine 07/07/2020 PANEL 5:43 AM EST CBC AND DIFFERENTIAL Timed 07/07/2020 12:12 AM EST POCT GLUCOSE, DOCKED Routine 07/06/2020 10:08 PM EST POTASSIUM Routine 07/06/2020 9:39 PM EST PHOSPHORUS LEVEL Routine 07/06/2020 9:39 PM EST MAGNESIUM LEVEL Routine 07/06/2020 9:39 PM EST CBC AND DIFFERENTIAL Timed 07/06/2020 5:36 PM EST LACTIC ACID LEVEL, PLASMA Timed 07/06/2020 5:36 PM EST COMMUNITY-ACQUIRED Routine 07/06/2020 DIARRHEA PANEL 2:48 PM EST OVA AND PARASITE SCREEN Routine 07/06/2020 2:48 PM EST UPPER GI ENDOSCOPY; DX, 07/06/2020 Coffee ground emesis W/WO SPECIMEN COLLECTION, 1:25 PM EST BRUSHING/WASHING (SEP PROC) CBC AND DIFFERENTIAL Timed 07/06/2020 11:35 AM EST PHOSPHORUS LEVEL Routine 07/06/2020 11:35 AM EST MAGNESIUM LEVEL Routine 07/06/2020 11:35 AM EST LACTIC ACID LEVEL, PLASMA Timed 07/06/2020 11:35 AM EST BASIC METABOLIC PANEL Routine 07/06/2020 11:35 AM EST CBC AND DIFFERENTIAL Timed 07/06/2020 8:09 AM EST MT INSERT NON-TUNNEL CV Routine 07/06/2020 Coliti s CATH 6:34 AM EST Gastrointestinal hemorrhage, unspecified gastrointestinal hemorrhage type US ABDOMEN COMPLETE [id number] STAT 07/06/2020 4:47 AM EST DRUGS OF ABUSE, URINE Routine 07/06/2020 4:26 AM EST PARTIAL THROMBOPLASTIN Routine 07/06/2020 TIME (PTT) 4:26 AM EST HIV AG AB COMBO SCREEN Routine 07/06/2020 4:26 AM EST ETHYL ALCOHOL LEVEL Routine 07/06/2020 4:26 AM EST HEPATITIS C ANTIBODY Routine 07/06/2020 4:26 AM EST HEPATITIS A ANTIBODY, IGM Routine 07/06/2020 4:26 AM EST HEPATITIS B CORE Routine 07/06/2020 ANTIBODY, IGM 4:26 AM EST SODIUM, URINE, RANDOM Routine 07/06/2020 4:26 AM EST CREATININE, URINE, RANDOM Routine 07/06/2020 4:26 AM EST HEPATITIS B SURFACE Routine 07/06/2020 ANTIGEN 4:26 AM EST BLOOD CULTURE Routine 07/06/2020 4:26 AM EST BLOOD CULTURE Routine 07/06/2020 4:26 AM EST URINALYSIS WITH Routine 07/06/2020 MICROSCOPIC 4:26 AM EST PROTIME INR Routine 07/06/2020 4:26 AM EST URINE CULTURE Routine 07/06/2020 4:26 AM EST PHOSPHORUS LEVEL Routine 07/06/2020 4:26 AM EST MAGNESIUM LEVEL Routine 07/06/2020 4:26 AM EST LACTIC ACID LEVEL, PLASMA Routine 07/06/2020 4:26 AM EST AMMONIA LEVEL Routine 07/06/2020 4:26 AM EST COMPREHENSIVE METABOLIC Routine 07/06/2020 PANEL 4:26 AM EST POCT GLUCOSE, DOCKED Routine 07/06/2020 2:19 AM EST UPPER GI ENDOSCOPY 07/06/2020 12:00 AM EST documented in this encounter Results * POCT glucose, docked (07/10/2020 11:55 AM EST) POC Glucose 229 (H) 70 - 140 mg/dL [facility] POC Specimen Whole Blood Performing Organization Address City/State/Zipcode Ph one Number POINT OF CARE TEST [address] [place] [address] [facility] POC [address] [place] [address] * POCT glucose, docked (07/10/2020 8:48 AM EST) POC Glucose 203 (H) 70 - 140 mg/dL [facility] POC Specimen Whole Blood Performing Organization Address [facility] one Number POINT OF CARE TEST [address] [place] [address] [facility] POC [address] [place] [address] * Magnesium Level (07/10/2020 3:54 AM EST) Magnesium 1.6 1.6 - 2.6 mg/dL [facility] PATHOLOGY Specimen Plasma Performing Organization Address [facility] one Number [facility] CLINICAL [address] [place] [address] PATHOLOGY * Phosphorus Level (07/10/2020 3:54 AM EST) Phosphorus 2.4 (L) 2.5 - 4.5 mg/dL [facility] CLINICAL PATHOLOGY Specimen Plasma Performing Organization Address [facility] one Number [facility] CLINICAL [address] [place], [place] [address] PATHOLOGY * Comprehensive Metabolic Panel (07/10/2020 3:54 AM EST) Albumin 3.2 (L) 3.5 - 5.2 g/dL [facility] PATHOLOGY Bilirubin, 0.4 <1.2 mg/dL [facility] Total CLINICAL PATHOLOGY Calcium 8.0 (L) 8.6 - 10.0 mg/dL [facility] CLINICAL PATHOLOGY Chloride 107 98 - 107 mmol/L [facility] CLINICAL PATHOLOGY Creatinine 0.75 0.70 - 1.20 mg/dL [facility] CLINICAL PATHOLOGY Glucose 122 70 - 140 mg/dL [facility] CLINICAL PATHOLOGY Alkaline 55 40 - 129 U/L [facility] Phosphatase CLINICAL PATHOLOGY Potassium 3.6 3.4 - 5.1 mmol/L [facility] PATHOLOGY Total Protein 5.1 (L) 6.4 - 8.3 g/dL [facility] CLINICAL PATHOLOGY Sodium 141 136 - 145 mmol/L [facility] CLINICAL PATHOLOGY AST/SGO 37 <40 U/L [facility] PATHOLOGY Blood Urea 4 (L) 6 - 20 mg/dL [facility] CLINICAL PATHOLOGY Osmolality, Anders 290 275 - 300 mosm/kg [facility] CLINICAL PATHOLOGY BUN/Cre Ratio 6 [facility] CLINICAL PATHOLOGY Bicarbonate 28 22 - 29 mmol/L [facility] CLINICAL PATHOLOGY ALT/SGP 30 <41 U/L [facility] CLINICAL PATHOLOGY Anion Gap 6 (L) 8 - 15 mmol/L [facility] CLINICAL PATHOLOGY GFR Non >90 >60 mL/min/1.73m2 [facility] Icelandic 2008 CLINICAL CDK-EPI PATHOLOGY GFR >90 >60 mL/min/1.73m2 [facility] 2008 CLINICAL CKD-EPI PATHOLOGY Specimen Plasma Performing Organization Address City/State/[facility] Ph one Number [facility] [address] [place] [address] PATHOLOGY * CBC and Differential (07/10/2020 3:54 AM EST) White Blood 3.9 (L) 4 - 10 10*3/uL [facility] Univ Clin Pathology Red Blood Cell 3.40 (L) 4.6 - 6.1 10*6/uL [facility] Univ Clin Pathology Hemoglobin 10.7 (L) 13.5 - 18 g/dL [facility] Univ Clin Pathology Hematocrit 31.6 (L) 41 - 53 % [facility] Univ Clin Pathology Mean Cell 92.8 80 - 96 fL [facility] Volume [facility] Univ Clin Pathology Mean Cell 31.4 27 - 33 pg [facility] Univ Clin Pathology Mean Cell Hgb 33.8 32.0 - 36.0 g/dL [facility] Univ Clin Pathology Red Cell Dist 14.5 11.5 - 14.5 % [facility] Width [facility] Univ Clin Pathology Platelet Count 58 (L) 150 - 400 10*3/uL [facility] Clin Pathology Differential Automated Diff [facility] Type [facility] Clin Pathology Neutrophil 59 % [facility] Univ Clin Pathology Lymphocyte 26 % [facility] Univ Clin Pathology Monocyte 12 % [facility] Univ Clin Pathology Eosinophil 2 % [facility] Univ Clin Pathology Basophil 1 % [facility] Clin Pathology Abs Neutrophil 2.31 1.8 - 7.0 10*3/uL [facility] Univ Clin Pathology Abs Lymphocyte 1.02 (L) 1.2 - 4.0 10*3/uL [facility] Clin Pathology Abs Monocyte 0.47 0 - 0.8 10*3/uL [facility] Clin Pathology Abs Eosinophil 0.10 0 - 0.5 10*3/uL [facility] Clin Pathology Abs Basophil 0.03 0 - 0.2 10*3/uL [facility] Clin Pathology Nucleated Red 0 0 - 0 /100{WBCs} [facility] Blood Cells [facility] Clin Pathology Specimen EDTA Whole Blood Performing Organization Address [facility] one Number [facility] CLINICAL [address] [place], [place] [address] PATHOLOGY [facility] [address] [place], [place] [address] Clin Pathology * Phosphorus Level (07/09/2020 6:16 PM EST) Phosphorus 2.2 (L) 2.5 - 4.5 mg/dL [facility] PATHOLOGY Specimen Plasma Performing Organization Address [facility] one Number [facility] [address] [place], [place] [address] PATHOLOGY * POCT glucose, docked (07/09/2020 4:49 PM EST) POC Glucose 125 70 - 140 mg/dL [facility] POC Specimen Whole Blood Performing Organization Address [facility] Number POINT OF CARE TEST [address] [place] [address] [facility] POC [address] [place] [address] * Phosphorus Level (07/09/2020 4:09 PM EST) Phosphorus 2.2 (L) 2.5 - 4.5 mg/dL [facility] PATHOLOGY Specimen Plasma Performing Organization Address [facility] one Number [facility] CLINICAL [address] [place], [place] [address] PATHOLOGY * POCT glucose, docked (07/09/2020 12:24 PM EST) POC Glucose 122 70 - 140 mg/dL [facility] POC Specimen Whole Blood Performing Organization Address [facility] one Number POINT OF CARE TEST [address] [place] [address] [facility] POC [address] [place] [address] * Phosphorus Level (07/09/2020 10:05 AM EST) Phosphorus 2.7 2.5 - 4.5 mg/dL [facility] PATHOLOGY Specimen Plasma Performing Organization Address [facility] one Number [facility] CLINICAL [address] [place], [place] [address] PATHOLOGY * POCT glucose, docked (07/09/2020 7:50 AM EST) POC Glucose 127 70 - 140 mg/dL [facility] POC Specimen Whole Blood Performing Organization Address [facility] Number POINT OF CARE TEST [address] [place] [address] [facility] POC [address] [place] [address] * Magnesium Level (07/09/2020 12:47 AM EST) Magnesium 1.4 (L) 1.6 - 2.6 mg/dL [facility] PATHOLOGY Specimen Plasma Performing Organization Address [facility] one Number [facility] CLINICAL [address] [place], [place] [address] PATHOLOGY * Comprehensive Metabolic Panel (07/09/2020 12:47 AM EST) Albumin 3.4 (L) 3.5 - 5.2 g/dL [facility] PATHOLOGY Bilirubin, 0.4 <1.2 mg/dL [facility] Total CLINICAL PATHOLOGY Calcium 7.6 (L) 8.6 - 10.0 mg/dL [facility] CLINICAL PATHOLOGY Chloride 103 98 - 107 mmol/L [facility] CLINICAL PATHOLOGY Creatinine 0.78 0.70 - 1.20 mg/dL [facility] PATHOLOGY Glucose 134 70 - 140 mg/dL [facility] CLINICAL PATHOLOGY Alkaline 51 40 - 129 U/L [facility] Phosphatase CLINICAL PATHOLOGY Potassium 3.1 (L) 3.4 - 5.1 mmol/L [facility] [facility] PATHOLOGY Total Protein 5.2 (L) 6.4 - 8.3 g/dL [facility] PATH[facility] Sodium 138 136 - 145 mmol/L [facility] PATHOLOG[facility] AST/SGO 36 <40 U/L [facility] PATH[facility] Blood Urea 8 6 - 20 mg/dL [facility] Nitrogen CLINICAL PATHOLOGY Osmolality, Anders 287 275 - 300 mosm/[facility] BUN/Cre Ratio 10 [facility] CLINICAL PATHOLOGY Bicarbonate 25 22 - 29 mmol/L [facility] CLINICAL PATHOLOGY ALT/SGP 27 <41 U/L [facility] CLINICAL PATHOLOGY Anion Gap 10 8 - 15 mmol/L [facility] CLINICAL PATHOLOGY GFR Non >90 >60 mL/min/1.73m2 [facility] E Icelandic 2008 CLINICAL CDK-EPI PATHOLOGY GFR >90 >60 mL/min/1.73m2 [facility] 2008 CLINICAL CKD-EPI PATHOLOGY Specimen Plasma Performing Organization Address [facility] Ph one Number [facility] CLINICAL [address] [place], [place] [address] PATHOLOGY * Phosphorus Level (07/09/2020 12:47 AM EST) Phosphorus 2.6 2.5 - 4.5 mg/dL [facility] CLINICAL PATHOLOGY Specimen Plasma Performing Organization Address [facility] Ph one Number [facility] [address] [place], [place] [address] PATHOLOGY * CBC and Differential (07/09/2020 12:47 AM EST) White Blood 3.5 (L) 4 - 10 10*3/uL [facility] Univ Clin Pathology Red Blood Cell 3.37 (L) 4.6 - 6.1 10*6/uL [facility] Clin Pathology Hemoglobin 10.5 (L) 13.5 - 18 g/dL [facility] Clin Pathology Hematocrit 31.3 (L) 41 - 53 % [facility] Univ Clin Pathology Mean Cell 92.9 80 - 96 fL [facility] Volume [facility] Univ Clin Pathology Mean Cell 31.3 27 - 33 pg [facility] Univ Clin Pathology Mean Cell Hgb 33.7 32.0 - 36.0 g/dL [facility] Univ Clin Pathology Red Cell Dist 13.9 11.5 - 14.5 % [facility] Width [facility] Univ Clin Pathology Platelet Count 60 (L) 150 - 400 10*3/uL [facility] Univ Clin Pathology Differential Automated Diff [facility] Univ Clin Pathology Neutrophil 52 % [facility] Univ Clin Pathology Lymphocyte 35 % [facility] Univ Clin Pathology Monocyte 9 % [facility] Univ Clin Pathology Eosinophil 3 % [facility] Univ Clin Pathology Basophil 1 % [facility] Clin Pathology Abs Neutrophil 1.83 1.8 - 7.0 10*3/uL [facility] Clin Pathology Abs Lymphocyte 1.21 1.2 - 4.0 10*3/uL [facility] Clin Pathology Abs Monocyte 0.30 0 - 0.8 10*3/uL [facility] Clin Pathology Abs Eosinophil 0.11 0 - 0.5 10*3/uL [facility] Clin Pathology Abs Basophil 0.02 0 - 0.2 10*3/uL [facility] Clin Pathology Nucleated Red 0 0 - 0 /100{WBCs} [facility] Blood Cells [facility] Clin Pathology Specimen EDTA Whole Blood Performing Organization Address [facility] one Number [facility] CLINICAL [address] [place], [place] [address] PATHOLOGY [facility] [address] [place], [place] [address] Clin Pathology * POCT glucose, docked (07/08/2020 9:24 PM EST) POC Glucose 121 70 - 140 mg/dL [facility] POC Specimen Whole Blood Performing Organization Address [facility] one Number POINT OF CARE TEST [address] [place] [address] [facility] POC [address] [place] [address] * POCT glucose, docked (07/08/2020 4:57 PM EST) POC Glucose 115 70 - 140 mg/dL [facility] POC Specimen Whole Blood Performing Organization Address [facility] Number POINT OF CARE TEST [address] [place] [address] [facility] POC [address] [place] [address] * POCT glucose, docked (07/08/2020 12:50 PM EST) POC Glucose 126 70 - 140 mg/dL [facility] POC Specimen Whole Blood Performing Organization Address [facility] one Number POINT OF CARE TEST [address] [place] [address] [facility] POC [address] [place] [address] * Phosphorus Level (07/08/2020 10:28 AM EST) Phosphorus 1.7 (L) 2.5 - 4.5 mg/dL [facility] CLINICAL PATHOLOGY Specimen Plasma Performing Organization Address [facility] Ph one Number [facility] CLINICAL [address] [place], [place] [address] PATHOLOGY * POCT glucose, docked (07/08/2020 8:42 AM EST) Pathologist [facility] POC Glucose 116 70 - 140 mg/dL [facility] POC Specimen Whole Blood Performing Organization Address [facility] one Number POINT OF CARE TEST [address] [place] [address] [facility] POC [address] [place] [address] * Magnesium Level (07/08/2020 2:11 AM EST) [facility] Magnesium 1.6 1.6 - 2.6 mg/dL [facility] PATHOLOGY Specimen Plasma Performing Organization Address [facility] one Number [facility] CLINICAL [address] [place], [place] [address] PATHOLOGY * CBC and Differential (07/08/2020 2:11 AM EST) [facility] White Blood 4.0 4 - 10 10*3/uL [facility] Univ Clin Pathology Red Blood Cell 3.34 (L) 4.6 - 6.1 10*6/uL [facility] Clin Pathology Hemoglobin 10.4 (L) 13.5 - 18 g/dL [facility] Clin Pathology Hematocrit 31.0 (L) 41 - 53 % [facility] Clin Pathology Mean Cell 92.9 80 - 96 fL [facility] Univ Clin Pathology Mean Cell 31.2 27 - 33 pg [facility] Univ Clin Pathology Mean Cell Hgb 33.6 32.0 - 36.0 g/dL [facility] Univ Clin Pathology Red Cell Dist 14.2 11.5 - 14.5 % [facility] Univ Clin Pathology Platelet Count 68 (L) 150 - 400 10*3/uL [facility] Clin Pathology Differential Automated Diff [facility] Univ Clin Pathology Neutrophil 57 % [facility] Clin Pathology Lymphocyte 31 % [facility] Clin Pathology Monocyte 8 % [facility] Clin Pathology Eosinophil 4 % [facility] Clin Pathology Basophil 0 % [facility] Clin Pathology Abs Neutrophil 2.24 1.8 - 7.0 10*3/uL [facility] Univ Clin Pathology Abs Lymphocyte 1.25 1.2 - 4.0 10*3/uL [facility] Clin Pathology Abs Monocyte 0.32 0 - 0.8 10*3/uL [facility] Clin Pathology Abs Eosinophil 0.16 0 - 0.5 10*3/uL [facility] Clin Pathology Abs Basophil 0.01 0 - 0.2 10*3/uL [facility] Clin Pathology Nucleated Red 0 0 - 0 /100{WBCs} [facility] Blood Cells [facility] Clin Pathology Specimen EDTA Whole Blood Performing Organization Address City/[facility] Ph one Number [facility] CLINICAL [address] [place], [place] [address] PATHOLOGY [facility] [address] [place], [place] [address] Clin Pathology * Comprehensive Metabolic Panel (07/08/2020 2:11 AM EST) Albumin 3.4 (L) 3.5 - 5.2 g/dL [facility] PATHOLOGY Bilirubin, 0.5 <1.2 mg/dL [facility] Total CLINICAL PATHOLOGY Calcium 6.9 (L) 8.6 - 10.0 mg/dL [facility] CLINICAL PATHOLOGY Chloride 102 98 - 107 mmol/L [facility] CLINICAL PATHOLOGY Creatinine 0.83 0.70 - 1.20 mg/dL [facility] PATHOLOGY Glucose 107 70 - 140 mg/dL [facility] CLINICAL PATHOLOGY Alkaline 52 40 - 129 U/L [facility] Phosphatase CLINICAL PATHOLOGY Potassium 3.4 3.4 - 5.1 mmol/L [facility] PATHOLOGY Total Protein 5.2 (L) 6.4 - 8.3 g/dL [facility] CLINICAL PATHOLOGY Sodium 137 136 - 145 mmol/L [facility] CLINICAL PATHOLOGY AST/SGO 37 <40 U/L [facility] PATHOLOGY Blood Urea 12 6 - 20 mg/dL [facility] Nitrogen CLINICAL PATHOLOGY Osmolality, Anders 284 275 - 300 mosm/kg [facility] CLINICAL PATHOLOGY BUN/Cre Ratio 14 [facility] CLINICAL PATHOLOGY Bicarbonate 28 22 - 29 mmol/L [facility] CLINICAL PATHOLOGY ALT/SGP 22 <41 U/L [facility] PATHOLOGY Anion Gap 7 (L) 8 - 15 mmol/L [facility] CLINICAL PATHOLOGY GFR Non >90 >60 mL/min/1.73m2 [facility] Icelandic 2009 CLINICAL CDK-EPI PATHOLOGY GFR >90 >60 mL/min/1.73m2 [facility] 2009 CLINICAL CKD-EPI PATHOLOGY Specimen Plasma Performing Organization Address [facility] one Number [facility] CLINICAL [address] [place], [place] [address] PATHOLOGY * Phosphorus Level (07/08/2020 2:11 AM EST) Phosphorus 1.6 (L) 2.5 - 4.5 mg/dL [facility] CLINICAL PATHOLOGY Specimen Plasma Performing Organization Address [facility] one Number [facility] CLINICAL [address] [place], [place] [address] PATHOLOGY * POCT glucose, docked (07/07/2020 9:53 PM EST) POC Glucose 185 (H) 70 - 140 mg/dL [facility] POC Specimen Whole Blood Performing Organization Address [facility] Number POINT OF CARE TEST [address] [place] [address] [facility] POC [address] [place] [address] * EKG 12-LEAD - CMAXX REPORT (07/07/2020 9:45 PM EST) Narrative Performed At This result has an attachment that is n ot available. * EKG 12-LEAD - CMAXX REPORT (07/07/2020 9:45 PM EST) Narrative Performed At This result has an attachment that is n ot available. * EKG 12 Lead (07/07/2020 9:45 PM EST) Specimen Narrative Performed At Ventricular Rate: [facility] EKG 56 BPM Atrial Rate: 56 BPM P-R Interval: 140 ms QRS Duration: 68 ms Q-T Interval: 444 ms QTC Calculation(Bazett): 428 ms P Mobile: 52 degrees R Mobile: 42 degrees T Mobile: 39 degrees : SINUS BRADYCARDIA WITH PREMATURE ATRI AL COMPLEXES : NO PREVIOUS ECGS AVAILABLE : Confirmed by Narayan Bob ([id number]) on 07/08/2020 9:18:49 AM Procedure Note Interface, Received Via [employer] - 07/08/2020 9:18 AM EST Ventricular Rate: 56 BPM Atrial Rate: 56 BPM P-R Interval: 140 ms QRS Duration: 68 ms Q-T Interval: 444 ms QTC Calculation(Bazett): 428 ms P Mobile: 52 degrees R Mobile: 42 degrees T Mobile: 39 degrees : SINUS BRADYCARDIA WITH PREMATURE ATRIAL COMPLEXES : NO PREVIOUS ECGS AVAILABLE : Confirmed by Narayan Bob ([id number]) on 07/08/2020 9:18:49 AM Performing Organization Address City/[facility] Ph one Number [facility] EKG * CBC and Differential (07/07/2020 6:45 PM EST) White Blood 4.9 4 - 10 10*3/uL [facility] Univ Clin Pathology Red Blood Cell 3.39 (L) 4.6 - 6.1 10*6/uL [facility] Clin Pathology Hemoglobin 10.7 (L) 13.5 - 18 g/dL [facility] Clin Pathology Hematocrit 31.4 (L) 41 - 53 % [facility] Clin Pathology Mean Cell 92.7 80 - 96 fL [facility] Volume [facility] Univ Clin Pathology Mean Cell 31.7 27 - 33 pg [facility] Hemoglobin [facility] Univ Clin Pathology Mean Cell Hgb 34.2 32.0 - 36.0 g/dL [facility] Univ Clin Pathology Red Cell Dist 14.6 (H) 11.5 - 14.5 % [facility] Width [facility] Univ Clin Pathology Platelet Count 71 (L) 150 - 400 10*3/uL [facility] Clin Pathology Differential Automated Diff [facility] Type [facility] Univ Clin Pathology Neutrophil 64 % [facility] Clin Pathology Lymphocyte 24 % [facility] Clin Pathology Monocyte 8 % [facility] Clin Pathology Eosinophil 4 % [facility] Clin Pathology Basophil 0 % [facility] Clin Pathology Abs Neutrophil 3.10 1.8 - 7.0 10*3/uL [facility] Clin Pathology Abs Lymphocyte 1.19 (L) 1.2 - 4.0 10*3/uL [facility] Clin Pathology Abs Monocyte 0.38 0 - 0.8 10*3/uL [facility] Clin Pathology Abs Eosinophil 0.18 0 - 0.5 10*3/uL [facility] Clin Pathology Abs Basophil 0.02 0 - 0.2 10*3/uL [facility] Clin Pathology Nucleated Red 0 0 - 0 /100{WBCs} [facility] Blood Cells [facility] Univ Clin Pathology Specimen EDTA Whole Blood Performing Organization Address City/[facility] one Number [facility] CLINICAL [address] [place], [place] [address] PATHOLOGY [facility] [address] [place], [place] [address] Clin Pathology * Phosphorus Level (07/07/2020 6:45 PM EST) Phosphorus 1.0 (L) 2.5 - 4.5 mg/dL [facility] PATHOLOGY Specimen Plasma Performing Organization Address [facility] one Number [facility] CLINICAL [address] [place], [place] [address] PATHOLOGY * POCT glucose, docked (07/07/2020 5:29 PM EST) POC Glucose 127 70 - 140 mg/dL [facility] POC Specimen Whole Blood Performing Organization Address [facility] POINT OF CARE TEST [address] [place] [address] [facility] POC [address] [place] [address] * Magnesium Level (07/07/2020 5:29 PM EST) Magnesium 1.7 1.6 - 2.6 mg/dL [facility] PATHOLOGY Specimen Plasma Performing Organization Address [facility] one Number [facility] CLINICAL [address] [place], [place] [address] PATHOLOGY * Phosphorus Level (07/07/2020 5:29 PM EST) Phosphorus 1.4 (L) 2.5 - 4.5 mg/dL [facility] PATHOLOGY Specimen Plasma Performing Organization Address [facility] one Number [facility] CLINICAL [address] [place], [place] [address] PATHOLOGY * POCT glucose, docked (07/07/2020 12:25 PM EST) POC Glucose 124 70 - 140 mg/dL [facility] POC Specimen Whole Blood Performing Organization Address [facility] one Number POINT OF CARE TEST [address] [place] [address] [facility] POC [address] [place] [address] * POCT glucose, docked (07/07/2020 12:23 PM EST) POC Glucose 11 (LL) 70 - 140 mg/dL [facility] POC Specimen Whole Blood Performing Organization Address [facility] one Number POINT OF CARE TEST [address] [place] [address] [facility] POC [address] [place] [address] * Potassium (07/07/2020 8:22 AM EST) Potassium 3.5 3.4 - 5.1 mmol/L [facility] CLINICAL PATHOLOGY Specimen Plasma Performing Organization Address [facility] one Number [facility] CLINICAL [address] [place], [place] [address] PATHOLOGY * Phosphorus Level (07/07/2020 8:22 AM EST) Phosphorus 0.9 (LL)Comment: Results 2.5 - 4.5 mg/dL [facility] called to and read back by CLINICAL ANNE-MARIE GREENE RN [id number] PATHOLOGY Specimen Plasma Performing Organization Address [facility] one Number [facility] CLINICAL [address] [place], [place] [address] PATHOLOGY * POCT glucose, docked (07/07/2020 8:18 AM EST) POC Glucose 126 70 - 140 mg/dL [facility] POC Specimen Whole Blood Performing Organization Address [facility] one Number POINT OF CARE TEST [address] [place] [address] [facility] POC [address] [place] [address] * CBC and Differential (07/07/2020 5:43 AM EST) White Blood 5.1 4 - 10 10*3/uL [facility] Univ Clin Pathology Red Blood Cell 3.26 (L) 4.6 - 6.1 10*6/uL [facility] Clin Pathology Hemoglobin 10.3 (L) 13.5 - 18 g/dL [facility] Univ Clin Pathology Hematocrit 29.8 (L) 41 - 53 % [facility] Univ Clin Pathology Mean Cell 91.4 80 - 96 fL [facility] Volume [facility] Univ Clin Pathology Mean Cell 31.6 27 - 33 pg [facility] Univ Clin Pathology Mean Cell Hgb 34.5 32.0 - 36.0 g/dL [facility] Univ Clin Pathology Red Cell Dist 14.7 (H) 11.5 - 14.5 % [facility] Univ Clin Pathology Platelet Count 65 (L) 150 - 400 10*3/uL [facility] Clin Pathology Differential Manual Diff [facility] Type [facility] Univ Clin Pathology Neutrophil 76 % [facility] Clin Pathology Lymphocyte 14 % [facility] Clin Pathology Monocyte 7 % [facility] Clin Pathology Eosinophil 3 % [facility] Clin Pathology Abs Neutrophil 3.91 1.8 - 7.0 10*3/uL [facility] Clin Pathology Abs Lymphocyte 0.71 (L) 1.2 - 4.0 10*3/uL [facility] Clin Pathology Abs Monocyte 0.33 0 - 0.8 10*3/uL [facility] Clin Pathology Abs Eosinophil 0.14 0 - 0.5 10*3/uL [facility] Clin Pathology Poikilocytosis 1+ [facility] Clin Pathology Stomatocytes 1+ [facility] Clin Pathology Specimen EDTA Whole Blood Performing Organization Address City/[facility] Ph one Number [facility] CLINICAL [address] [place], [place] [address] PATHOLOGY [facility] [address] [place], [place] [address] Clin Pathology * Comprehensive Metabolic Panel (07/07/2020 5:43 AM EST) Albumin 3.8 3.5 - 5.2 g/dL [facility] PATHOLOGY Bilirubin, 0.7 <1.2 mg/dL [facility] Total CLINICAL PATHOLOGY Calcium 6.9 (L) 8.6 - 10.0 mg/dL [facility] CLINICAL PATHOLOGY Chloride 100Comment: Confirmed 98 - 107 mmol/L [facility] CLINICAL PATHOLOGY Creatinine 0.96 0.70 - 1.20 mg/dL [facility] CLINICAL PATHOLOGY Glucose 140 70 - 140 mg/dL [facility] CLINICAL PATHOLOGY Alkaline 49 40 - 129 U/L [facility] Phosphatase CLINICAL PATHOLOGY Potassium 3.5 3.4 - 5.1 mmol/L [facility] PATHOLOGY Total Protein 5.5 (L) 6.4 - 8.3 g/dL [facility] PATHOLOGY Sodium 137 136 - 145 mmol/L [facility] PATHOLOGY AST/SGO 41 (H) <40 U/L [facility] PATHOLOGY Blood Urea 18 6 - 20 mg/dL [facility] Nitrogen CLINICAL PATHOLOGY Osmolality, Anders 288 275 - 300 mosm/kg [facility] CLINICAL PATHOLOGY BUN/Cre Ratio 19 [facility] CLINICAL PATHOLOGY Bicarbonate 24 22 - 29 mmol/L [facility] CLINICAL PATHOLOGY ALT/SGP 25 <41 U/L [facility] CLINICAL PATHOLOGY Anion Gap 13 8 - 15 mmol/L [facility] CLINICAL PATHOLOGY GFR Non >90 >60 mL/min/1.73m2 [facility] Icelandic 2008 CLINICAL CDK-EPI PATHOLOGY GFR >90 >60 mL/min/1.73m2 [facility] 2008 CLINICAL CKD-EPI PATHOLOGY Specimen Plasma Performing Organization Address City/[facility] Ph one Number [facility] [address] [place], [place] [address] PATHOLOGY * Hemoglobin A1c (07/07/2020 5:43 AM EST) Hemoglobin A1C 5.5 4.0 - 6.0 % [facility] Comment: CLINICAL (NOTE) PATHOLOGY <5.7% Average risk of diabetes(ADA) 5.7-6.4% Increased risk of diabetes(ADA) >/= 6.5% Diagnostic for diabetes(ADA) Estimated Avg 111 <126 mg/dL [facility] Glucose CLINICAL PATHOLOGY Specimen Whole Blood Performing Organization Address City/[facility] Ph one Number [facility] [address] [place], [place] [address] PATHOLOGY * CBC and Differential (07/07/2020 12:12 AM EST) White Blood 5.2 4 - 10 10*3/uL [facility] Cell [facility] Univ Clin Pathology Red Blood Cell 3.20 (L) 4.6 - 6.1 10*6/uL [facility] Clin Pathology Hemoglobin 10.1 (L) 13.5 - 18 g/dL [facility] Univ Clin Pathology Hematocrit 29.2 (L) 41 - 53 % [facility] Clin Pathology Mean Cell 91.3 80 - 96 fL [facility] Volume [facility] Univ Clin Pathology Mean Cell 31.5 27 - 33 pg [facility] Univ Clin Pathology Mean Cell Hgb 34.5 32.0 - 36.0 g/dL [facility] Univ Clin Pathology Red Cell Dist 14.4 11.5 - 14.5 % [facility] Width [facility] Clin Pathology Platelet Count 69 (L) 150 - 400 10*3/uL [facility] Clin Pathology Differential Automated Diff [facility] Type [facility] Clin Pathology Neutrophil 73 % [facility] Clin Pathology Lymphocyte 17 % [facility] Clin Pathology Monocyte 9 % [facility] Clin Pathology Eosinophil 1 % [facility] Clin Pathology Basophil 0 % [facility] Clin Pathology Abs Neutrophil 3.74 1.8 - 7.0 10*3/uL [facility] Clin Pathology Abs Lymphocyte 0.89 (L) 1.2 - 4.0 10*3/uL [facility] Clin Pathology Abs Monocyte 0.46 0 - 0.8 10*3/uL [facility] Clin Pathology Abs Eosinophil 0.06 0 - 0.5 10*3/uL [facility] Clin Pathology Abs Basophil 0.01 0 - 0.2 10*3/uL [facility] Pathology Nucleated Red 0 0 - 0 /100{WBCs} [facility] Blood Cells [facility] Clin Pathology Specimen EDTA Whole Blood Performing Organization Address [facility] one Number [facility] CLINICAL [address] [place], [place] [address] PATHOLOGY [facility] [address] [place], [place] [address] Clin Pathology * POCT glucose, docked (07/06/2020 10:08 PM EST) POC Glucose 262 (H) 70 - 140 mg/dL [facility] POC Specimen Whole Blood Performing Organization Address [facility] one Number POINT OF CARE TEST [address] [place] [address] [facility] POC [address] [place] [address] * Magnesium Level (07/06/2020 9:39 PM EST) Magnesium 2.0 1.6 - 2.6 mg/dL [facility] PATHOLOGY Specimen Plasma Performing Organization Address [facility] one Number [facility] CLINICAL [address] [place], [place] [address] PATHOLOGY * Phosphorus Level (07/06/2020 9:39 PM EST) Phosphorus 0.7 (LL)Comment: Results 2.5 - 4.5 mg/dL [facility] called to and read back by CLINICAL Taylor Menjivar RN on 6I at 2316 PATHOLOGY by [id number] confirmed Specimen Plasma Performing Organization Address [facility] Ph one Number [facility] [address] [place], [place] [address] PATHOLOGY * Potassium (07/06/2020 9:39 PM EST) Potassium 3.6 3.4 - 5.1 mmol/L [facility] CLINICAL PATHOLOGY Specimen Plasma Performing Organization Address [facility] Ph one Number [facility] [address] [place], [place] [address] PATHOLOGY * Lactic Acid Level, Plasma (07/06/2020 5:36 PM EST) Pathologist [facility] Lactic Acid 1.1 0.5 - 2.2 mmol/l [facility] CLINICAL PATHOLOGY Specimen Plasma Performing Organization Address [facility] Ph one Number [address] 132[address] PATHOLOGY * CBC and Differential (07/06/2020 5:36 PM EST) White Blood 5.6 4 - 10 10*3/uL [facility] Univ Clin Pathology Red Blood Cell 3.15 (L) 4.6 - 6.1 10*6/uL [facility] Univ Clin Pathology Hemoglobin 10.0 (L) 13.5 - 18 g/dL [facility] Univ Clin Pathology Hematocrit 28.9 (L) 41 - 53 % [facility] Univ Clin Pathology Mean Cell 91.9 80 - 96 fL [facility] Volume [facility] Univ Clin Pathology Mean Cell 31.7 27 - 33 pg [facility] Univ Clin Pathology Mean Cell Hgb 34.5 32.0 - 36.0 g/dL [facility] Univ Clin Pathology Red Cell Dist 14.3 11.5 - 14.5 % [facility] Width [facility] Univ Clin Pathology Platelet Count 70 (L) 150 - 400 10*3/uL [facility] Univ Clin Pathology Differential Automated Diff [facility] Type Med Univ Clin Pathology Neutrophil 77 % [facility] Univ Clin Pathology Lymphocyte 12 % [facility] Med Univ Clin Pathology Monocyte 11 % [facility] Univ Clin Pathology Eosinophil 0 % [facility] Univ Clin Pathology Basophil 0 % [facility] Univ Clin Pathology Abs Neutrophil 4.29 1.8 - 7.0 10*3/uL [facility] Clin Pathology Abs Lymphocyte 0.68 (L) 1.2 - 4.0 10*3/uL [facility] Clin Pathology Abs Monocyte 0.59 0 - 0.8 10*3/uL [facility] Clin Pathology Abs Eosinophil 0.01 0 - 0.5 10*3/uL [facility] Clin Pathology Abs Basophil 0.00 0 - 0.2 10*3/uL [facility] Clin Pathology Nucleated Red 0 0 - 0 /100{WBCs} [facility] Blood Cells [facility] Pathology Specimen EDTA Whole Blood Performing Organization Address [facility] Ph one Number [facility] CLINICAL [address] [place], [place] [address] [address] Clin Pathology * Ova and Parasite screen (07/06/2020 2:48 PM EST) Special Request None [facility] PATHOLOGY Ova and Iodine wet mount: NO ova and [facility] gabriel Parasites parasites seen. One negative [facility] Clin specimen does not rule out the Pathology possibility of a parasitic infection. Routine ova and parasite examination does not include Cryptosporidium, Cyclospora, Cystoisospora, or microsporidia. Ova and Trichrome stain: [facility] Parasites NO ova and parasites seen. One [facility] iv Clin negative specimen does not Pathology rule out the possibility of a parasitic infection. Routine ova and parasites examination does not include Cryptosporidium, Cystoisospora (Isospora), or Microsporidium. Specimen Stool Performing Organization Address City/[facility] Ph one Number [facility] CLINICAL [address] [place], [place] [address] [address] Clin Pathology * Community-Acquired Diarrhea Panel (07/06/2020 2:48 PM EST) Special Request None [facility] PATHOLOGY GI Panel PCR Results [facility] Clin Pathology Campylobacter Not Detected [facility] spp [facility] Pathology C. difficile CLOSTRIDIOIDES DIFFICILE (A) [facility] Toxin A/B Genes [facility] Pathology Plesiomonas Not Detected [facility] shigelloides Med Univ Clin Pathology Salmonella spp Not Detected [facility] Clin Pathology Vibrio spp Not Detected [facility] Clin Pathology Vibrio cholerae Not Detected [facility] Clin Pathology Yersinia Not Detected [facility] Enterocolitica [facility] Univ Clin Pathology Enteroaggregati Not Detected [facility] ve E.coli [facility] Univ Clin Pathology Enteropathogeni Not Detected [facility] c E.coli [facility] Univ Clin Pathology Enterotoxigenic Not Detected [facility] E.coli [facility] Univ Clin Pathology Shiga-like Not Detected [facility] toxin E.coli [facility] Univ Clin Pathology E.coli O157 Not applicable [facility] Clin Pathology Shigella / E. Not Detected [facility] coli [facility] Univ Clin Pathology Cryptosporidium Not Detected [facility] Clin Pathology Cyclospora Not Detected [facility] cayetanensis [facility] Clin Pathology Entamoeba Not Detected [facility] histolytica [facility] Clin Pathology Giardia lamblia Not Detected [facility] Clin Pathology Adenovirus F Not Detected [facility] 40/41 [facility] Univ Clin Pathology Astrovirus Not Detected [facility] Clin Pathology Norovirus G1/G2 Not Detected [facility] Clin Pathology Rotavirus A Not Detected [facility] Clin Pathology Sapovirus Not Detected [facility] Clin Pathology C. difficile POSITIVE for C. difficile [facility] Toxin A/B toxin A and/or B by enzyme [facility] sriram immunoassay. Polymerase chain Pathology reaction (PCR) detects toxin A and/or B genes and may be positive in patients without C. difficile disease. Enzyme immunoassay detects toxin, and if positive, is consistent with active disease. Clinical correlation is recommended for PCR-positive/toxin-negative results. Specimen Stool Performing Organization Address City/[facility] Ph one Number [facility] CLINICAL [address] [place], [place] [address] PATHOLOGY [facility] [address] [place], [place] [address] Clin Pathology * Phosphorus Level (07/06/2020 11:35 AM EST) Phosphorus 1.7 (L) 2.5 - 4.5 mg/dL [facility] CLINICAL PATHOLOGY Specimen Plasma Performing Organization Address City/[facility] Ph one Number [facility] CLINICAL [address] [place], [place] [address] PATHOLOGY * Lactic Acid Level, Plasma (07/06/2020 11:35 AM EST) Lactic Acid 1.4 0.5 - 2.2 mmol/l [facility] PATHOLOGY Specimen Plasma Performing Organization Address [facility] one Number [facility] [address] [place], [place] [address] PATHOLOGY * Magnesium Level (07/06/2020 11:35 AM EST) Magnesium 2.0 1.6 - 2.6 mg/dL [facility] PATHOLOGY Specimen Plasma Performing Organization Address [facility] one Number [facility] [address] [place], [place] [address] PATHOLOGY * Basic Metabolic Panel (07/06/2020 11:35 AM EST) Bicarbonate 16 (L) 22 - 29 mmol/L [facility] PATHOLOGY Chloride 89 (L) 98 - 107 mmol/L [facility] CLINICAL PATHOLOGY Creatinine 1.38 (H) 0.70 - 1.20 mg/dL [facility] CLINICAL PATHOLOGY Glucose 179 (H) 70 - 140 mg/dL [facility] PATHOLOGY Potassium 3.4 3.4 - 5.1 mmol/L [facility] CLINICAL PATHOLOGY Sodium 130 (L) 136 - 145 mmol/L [facility] PATHOLOGY Blood Urea 35 (H) 6 - 20 mg/dL [facility] Nitrogen CLINICAL PATHOLOGY Anion Gap 25 (H) 8 - 15 mmol/L [facility] PATHOLOGY Osmolality, Anders 283 275 - 300 mosm/kg [facility] CLINICAL PATHOLOGY BUN/Cre Ratio 25 [facility] CLINICAL PATHOLOGY Calcium 7.1 (L) 8.6 - 10.0 mg/dL [facility] PATHOLOGY GFR Non 56 (L) >60 mL/min/1.73m2 [facility] Icelandic 2009 CLINICAL CDK-EPI PATHOLOGY GFR 65 >60 mL/min/1.73m2 [facility] Icelandic 2009 CLINICAL CKD-EPI PATHOLOGY Specimen Plasma Performing Organization Address [facility] one Number [facility] [address] [place], [place] [address] PATHOLOGY * CBC and Differential (07/06/2020 11:35 AM EST) White Blood 6.1 4 - 10 10*3/uL [facility] Cell Med Univ Clin Pathology Red Blood Cell 3.13 (L) 4.6 - 6.1 10*6/uL [facility] Clin Pathology Hemoglobin 9.9 (L) 13.5 - 18 g/dL [facility] Clin Pathology Hematocrit 28.7 (L) 41 - 53 % [facility] Clin Pathology Mean Cell 91.4 80 - 96 fL [facility] Volume [facility] Univ Clin Pathology Mean Cell 31.7 27 - 33 pg [facility] Hemoglobin [facility] Univ Clin Pathology Mean Cell Hgb 34.6 32.0 - 36.0 g/dL [facility] Clin Pathology Red Cell Dist 14.7 (H) 11.5 - 14.5 % [facility] Width [facility] Clin Pathology Platelet Count 71 (L) 150 - 400 10*3/uL [facility] Clin Pathology Differential Automated Diff [facility] Type [facility] Univ Clin Pathology Neutrophil 80 % [facility] Clin Pathology Lymphocyte 9 % [facility] Clin Pathology Monocyte 11 % [facility] Clin Pathology Eosinophil 0 % [facility] Clin Pathology Basophil 0 % [facility] Clin Pathology Abs Neutrophil 4.88 1.8 - 7.0 10*3/uL [facility] Clin Pathology Abs Lymphocyte 0.55 (L) 1.2 - 4.0 10*3/uL [facility] Clin Pathology Abs Monocyte 0.64 0 - 0.8 10*3/uL [facility] Clin Pathology Abs Eosinophil 0.00 0 - 0.5 10*3/uL [facility] Clin Pathology Abs Basophil 0.00 0 - 0.2 10*3/uL [facility] Clin Pathology Nucleated Red 0 0 - 0 /100{WBCs} [facility] Blood Cells [facility] Clin Pathology Specimen EDTA Whole Blood Performing Organization Address City/State[facility] Ph one Number [facility] CLINICAL [address] [place], [place] [address] PATHOLOGY [facility] Univ [address] [place], [place] [address] Clin Pathology * CBC and Differential (07/06/2020 8:09 AM EST) White Blood 8.8 4 - 10 10*3/uL [facility] Clin Pathology Red Blood Cell 3.85 (L) 4.6 - 6.1 10*6/uL [facility] Clin Pathology Hemoglobin 12.1 (L) 13.5 - 18 g/dL [facility] Clin Pathology Hematocrit 35.2 (L) 41 - 53 % [facility] Clin Pathology Mean Cell 91.3 80 - 96 fL [facility] Volume [facility] Univ Clin Pathology Mean Cell 31.5 27 - 33 pg [facility] Univ Clin Pathology Mean Cell Hgb 34.4 32.0 - 36.0 g/dL [facility] Univ Clin Pathology Red Cell Dist 14.4 11.5 - 14.5 % [facility] Width [facility] Univ Clin Pathology Platelet Count 88 (L) 150 - 400 10*3/uL [facility] Clin Pathology Differential Automated Diff [facility] Type [facility] Univ Clin Pathology Neutrophil 82 % [facility] Univ Clin Pathology Lymphocyte 6 % [facility] Clin Pathology Monocyte 12 % [facility] Clin Pathology Eosinophil 0 % [facility] Clin Pathology Basophil 0 % [facility] Clin Pathology Abs Neutrophil 7.14 (H) 1.8 - 7.0 10*3/uL [facility] Clin Pathology Abs Lymphocyte 0.55 (L) 1.2 - 4.0 10*3/uL [facility] Clin Pathology Abs Monocyte 1.08 (H) 0 - 0.8 10*3/uL [facility] Clin Pathology Abs Eosinophil 0.00 0 - 0.5 10*3/uL [facility] Clin Pathology Abs Basophil 0.01 0 - 0.2 10*3/uL [facility] Clin Pathology Nucleated Red 0 0 - 0 /100{WBCs} [facility] Blood Cells [facility] Clin Pathology Specimen EDTA Whole Blood Performing Organization Address City/State/[facility] Ph one Number [facility] CLINICAL [address] [place], [place] [address] PATHOLOGY [facility] [address] [place], [place] [address] Clin Pathology * Central Line (07/06/2020 6:34 AM EST) Narrative Performed At Evelyn Reese MD EXTERNAL NON-INTERFACED LAB 07/06/2020 6:38 AM Central Line Date/Time: 07/06/2020 6:34 AM Performed by: Evelyn Reese MD Authorized by: Mala Rossi MD Consent: Verbal consent obtained. Risks and benefits: risks, benefits and alternatives were discussed Consent given by: patient Patient understanding: patient states u nderstanding of the procedure being performed Patient consent: the patient's understa nding of the procedure matches consent given Procedure consent: procedure consent ирина diaz procedure scheduled Patient identity confirmed: verbally wi th patient Indications: vascular access Sedation: Patient sedated: no Location details: right femoral Ultrasound guidance: yes Successful placement: yes Post-procedure: line sutured and dressi ng applied Comments: Femoral line successfully luis daniel chi Performing Organization Address City/State/Zipcode Ph one Number EXTERNAL NON-INTERFACED LAB * US Abdomen Complete (07/06/2020 4:47 AM EST) Specimen Narrative Performed At PROCEDURE INFORMATION: [facility] RADIOLOGY Exam: US Abdomen Complete Exam date and time: 07/06/2020 3:57 AM Age: 55 years old Clinical indication: Screening exam; Ot her: Ascites, hydronephrosis and bladder distesnsion; Prior surgery; Surgery baron e: 6+ months; Surgery type: Cholecystectomy TECHNIQUE: Imaging protocol: Real-time ultrasound of the abdomen with image documentation. COMPARISON: No relevant prior studies available. FINDINGS: Liver: Liver measures 17.5 cm in length and demonstrates diffuse increased echogenicity. No intrahepatic biliary d uct dilatation. Gallbladder: Status post cholecystectom y. Common bile duct: Extrahepatic bile red ts are obscured by bowel gas. Pancreas: Pancreas is obscured by bowel gas. Right kidney: Right kidney measures 11. 7 cm in length. No hydronephrosis. Left kidney: Left kidney measures 10.7 cm in length. No hydronephrosis. Spleen: Spleen measures 11.5 cm in aimee th and is unremarkable. Bladder: Distended urinary bladder. Scar dder volume 317 mL. Bilateral ureteral jets are visualized. Aorta: Obscured by bowel gas. Inferior vena cava: Obscured by bowel g as. Intraperitoneal space: Trace free fluid . No large volume of ascites. IMPRESSION: 1. Diffusely echogenic liver. This is n onspecific and may represent diffuse fatty infiltration or other diffuse hep atocellular process. 2. Status post cholecystectomy. 3. No evidence of hydronephrosis. 4. Distended urinary bladder. Bilateral ureteral jets are visualized. 5. Trace free fluid. No large volume of ascites. THIS DOCUMENT HAS BEEN ELECTRONICALLY S IGNED BY CHRISTIE COSME MD Procedure Note Interface, Received Via [facility] - 07/06/2020 5:10 AM EST PROCEDURE INFORMATION: Exam: US Abdomen Complete Exam date and time: 07/06/2020 3:57 AM Age: 55 years old Clinical indication: Screening exam; Other: Ascites, hydronephrosis and bladder distesnsion; Prior surgery; Surgery date: 6+ months; Surgery type: Cholecystectomy TECHNIQUE: Imaging protocol: Real-time ultrasound of the abdomen with image documentation. COMPARISON: No relevant prior studies available. FINDINGS: Liver: Liver measures 17.5 cm in length and demonstrates diffuse increased echogenicity. No intrahepatic biliary duct dilatation. Gallbladder: Status post cholecystectomy. Common bile duct: Extrahepatic bile ducts are obscured by bowel gas. Pancreas: Pancreas is obscured by bowel gas. Right kidney: Right kidney measures 11.7 cm in length. No hydronephrosis. Left kidney: Left kidney measures 10.7 cm in length. No hydronephrosis. Spleen: Spleen measures 11.5 cm in length and is unremarkable. Bladder: Distended urinary bladder. Bladder volume 317 mL. Bilateral ureteral jets are visualized. Aorta: Obscured by bowel gas. Inferior vena cava: Obscured by bowel gas. Intraperitoneal space: Trace free fluid. No large volume of ascites. IMPRESSION: 1. Diffusely echogenic liver. This is no nspecific and may represent diffuse fatty infiltration or other diffuse hepatocellular process. 2. Status post cholecystectomy. 3. No evidence of hydronephrosis. 4. Distended urinary bladder. Bilateral ureteral jets are visualized. 5. Trace free fluid. No large volume of ascites. THIS DOCUMENT HAS BEEN ELECTRONICALLY SIGNED BY CHRISTIE COSME MD Performing Organization Address [facility] Ph one Number [facility] RADIOLOGY [address] [place] [address] * Phosphorus Level (07/06/2020 4:26 AM EST) Phosphorus 2.6 2.5 - 4.5 mg/dL [facility] CLINICAL PATHOLOGY Specimen Plasma Performing Organization Address [facility] Ph one Number [address] 132[address] PATHOLOGY * Magnesium Level (07/06/2020 4:26 AM EST) Magnesium 1.7 1.6 - 2.6 mg/dL [facility] CLINICAL PATHOLOGY Specimen Plasma Performing Organization Address [facility] one Number [facility] [address] [place] [address] PATHOLOGY * Hepatitis B surface antigen (07/06/2020 4:26 AM EST) Pathologist [facility] Hepatitis B Non ReactiveComment: No active Non Reactive [facility] Surface Ag or previous infection. CLINICAL Susceptible to infection. PATHOLOGY Specimen Serum Performing Organization Address [facility] one Number [address] 1321 PATHOLOGY * Hepatitis B core antibody, IgM (07/06/2020 4:26 AM EST) Hepatitis B Non ReactiveComment: IgM Non Reactive [facility] IgM Ab antibodies to HBc were not CLINICAL detected, does not exclude the PATHOLOGY possibility of exposure to HBV. Specimen Serum Performing Organization Address [facility] Number [address] 1321 PATHOLOGY * Hepatitis A antibody, IgM (07/06/2020 4:26 AM EST) Pathologist [facility] Hepatitis A IgM Non ReactiveComment: No acute Non Reactive [facility] Ab infection, susceptible to CLINICAL infection. PATHOLOGY Specimen Serum Performing Organization Address [facility] Number [address] 1321 PATHOLOGY * Ethyl Alcohol Level (07/06/2020 4:26 AM EST) Pathologist [facility] Ethyl Alcohol 0.06 (A) Negative g/dl [facility] CLINICAL PATHOLOGY Specimen Plasma Performing Organization Address [facility] one Number [address] 1321 PATHOLOGY * Drugs Of Abuse, Urine (07/06/2020 4:26 AM EST) Amphetamine Negative Negative Cutoff [address] [facility] CLINICAL PATHOLOGY Benzodiazepine Negative Negative Cutoff [address] [facility] CLINICAL PATHOLOGY Cannabinoids Negative Negative Cutoff 50 [facility] Urine CLINICAL PATHOLOGY Cocaine Negative Negative Cutoff [address] [facility] CLINICAL PATHOLOGY Methadone Negative Negative Cutoff [address] [facility] [facility] (Dolophine) CLINICAL PATHOLOGY Opiates Negative Negative Cutoff [address] [facility] CLINICAL PATHOLOGY Oxycodone Positive (A) Negative Cutoff [address] [facility] Comment: CLINICAL (NOTE) PATHOLOGY Positive results are presumptive and unconfirmed;confirmatory testing can be ordered at the [facility] at [phone] or [facility] at [phone] within 5 days of collection. Fentanyl Positive (A) Negative Cutoff 1 [facility] Comment: CLINICAL (NOTE) PATHOLOGY Positive results are presumptive and unconfirmed;confirmatory testing can be ordered at the [facility] at [phone] or [facility] at [phone] within 5 days of collection. Drug (NOTE) [facility] Interpretation Comment: CLINICAL Results below the indicated PATHOLOGY cutoff (ng/mL), are reported as "Negative." Note: for medical purposes only; not valid for legal or employment testing. Specimen Urine Performing Organization Address [facility] one Number [address] 1321 PATHOLOGY * Hepatitis C antibody (07/06/2020 4:26 AM EST) Hepatitis C Ab Non ReactiveComment: No Non Reactive [facility] serological evidence of active CLINICAL infection. If recent exposure PATHOLOGY is suspected, test for HCV RNA. Specimen Serum Performing Organization Address [facility] one Number [address] 1321 PATHOLOGY * HIV Ag Ab Combo Screen (07/06/2020 4:26 AM EST) HIV Ag Ab Combo Non Reactive Non Reactive [facility] Screen Comment: [facility] Clin Negative for HIV-1 p24 antigen Pathology and HIV-1/HIV-2 antibodies. No laboratory evidence of HIV infection. Specimen Serum Performing Organization Address [facility] one Number [facility] CLINICAL [address] [place], [place] [address] PATHOLOGY [facility] [address] [place], [place] [address] Clin Pathology * Sodium, urine, random (07/06/2020 4:26 AM EST) Urine, Sodium 40 mmol/L [facility] CLINICAL PATHOLOGY Specimen Urine Performing Organization Address [facility] one Number [address] 1321 PATHOLOGY * Creatinine, urine, random (07/06/2020 4:26 AM EST) Creatinine, 56.0 mg/dl [facility] Urine CLINICAL PATHOLOGY Specimen Urine Performing Organization Address [facility] one Number [facility] [address] [place], [place] [address] PATHOLOGY * Urine Culture ; Urine (07/06/2020 4:26 AM EST) Special Request None [facility] PATHOLOGY Culture/Results NO GROWTH [facility] Clin Pathology Specimen Urine Performing Organization Address [facility] one Number [facility] [address] [place], [place] [address] [address] Clin Pathology * Urinalysis with microscopic (07/06/2020 4:26 AM EST) Color Yellow [facility] Clin Pathology Clarity Clear [facility] Clin Pathology Specific 1.016 1.003 - 1.030 [facility] [place] [facility] Univ Clin Pathology PH Urine 5.0 5.0 - 8.0 [facility] Clin Pathology Total Protein 30 (A) Negative mg/dL [facility] Med Univ Clin Pathology Glucose UA Negative Negative mg/dL [facility] Clin Pathology Ketone Urine 80 (A) Negative mg/dL [facility] Clin Pathology Bilirubin Negative Negative [facility] Clin Pathology Hemoglobin, 2+ (A) Negative [facility] Urine [facility] Univ Clin Pathology Leukocyte Negative Negative Arsen/uL [facility] Esterase [facility] Univ Clin Pathology Nitrite Negative Negative [facility] Univ Clin Pathology WBC <1 0 - 5 /HPF [facility] Clin Pathology RBC 1 0 - 3 /HPF [facility] Clin Pathology Squam Epithel, 1 (A) None /HPF [facility] Med Univ Clin Pathology Mucus, UA Trace (A) None /LPF [facility] Clin Pathology Specimen Urine Performing Organization Address [facility] one Number [facility] [address] [place], [place] [address] [address] Clin Pathology * Partial Thromboplastin Time (PTT) (07/06/2020 4:26 AM EST) PTT 29.7 24.0 - 33.0 s [facility] Clin Pathology Specimen Plasma Performing Organization Address [facility] one Number [address] 132 10 Clin Pathology * Protime-INR (07/06/2020 4:26 AM EST) PT Patient 15.5 (H) 12.5 - 14.9 s [facility] Clin Pathology Int'l 1.21Comment: Routine intensity [facility] pstate Normalized oral anticoagulation INR is Med [facility] Clin Ratio typically 2.0-3.0. Target INR Patholo gy must be clinically individualized. Specimen Plasma Performing Organization Address [facility] one Number [address] 132 10 Clin Pathology * Ammonia Level (07/06/2020 4:26 AM EST) Ammonia 19 16 - 60 umol/L [facility] CLINICAL PATHOLOGY Specimen Plasma Performing Organization Address [facility] one Number [address] 1321 PATHOLOGY * Lactic Acid Level, Plasma (07/06/2020 4:26 AM EST) Lactic Acid 5.1 (HH)Comment: Results 0.5 - 2.2 mmol/l [facility] called to and read back by 6I CLINICAL RN MARY ALICE RIOS AT 0555 BY PATHOLOGY 3353 Specimen Plasma Performing Organization Address [facility] one Number [address] 1321 PATHOLOGY * Comprehensive Metabolic Panel (07/06/2020 4:26 AM EST) Albumin 3.3 (L) 3.5 - 5.2 g/dL [facility] CLINICAL PATHOLOGY Bilirubin, 0.6 <1.2 mg/dL [facility] Total CLINICAL PATHOLOGY Calcium 6.7 (L) 8.6 - 10.0 mg/dL [facility] PATHOLOGY Chloride 88 (L)Comment: Confirmed 98 - 107 mmol/L [facility] CLINICAL PATHOLOGY Creatinine 1.39 (H) 0.70 - 1.20 mg/dL [facility] CLINICAL PATHOLOGY Glucose 145 (H) 70 - 140 mg/dL [facility] PATHOLOGY Alkaline 66 40 - 129 U/L [facility] Phosphatase CLINICAL PATHOLOGY Potassium 3.2 (L)Comment: Confirmed 3.4 - 5.1 mmol/L [facility] CLINICAL PATHOLOGY Total Protein 5.7 (L) 6.4 - 8.3 g/dL [facility] PATHOLOGY Sodium 131 (L)Comment: Confirmed 136 - 145 mmol/L [facility] CLINICAL PATHOLOGY AST/SGO 74 (H) <40 U/L [facility] PATHOLOGY Blood Urea 41 (H) 6 - 20 mg/dL [facility] Nitrogen CLINICAL PATHOLOGY Osmolality, Anders 286Comment: Confirmed 275 - 300 mosm/kg [facility] PATHOLOGY BUN/Cre Ratio 30 [facility] PATHOLOGY Bicarbonate 12 (L)Comment: Confirmed 22 - 29 mmol/L [facility] PATHOLOGY ALT/SGP 37 <41 U/L [facility] PATHOLOGY Anion Gap 32 (H)Comment: Confirmed 8 - 15 mmol/L [facility] PATHOLOGY GFR Non 56 (L) >60 mL/min/1.73m2 [facility] 2008 CLINICAL CDK-EPI PATHOLOGY GFR 64 >60 mL/min/1.73m2 [facility] 2008 CLINICAL CKD-EPI PATHOLOGY Specimen Plasma Performing Organization Address [facility] one Number [facility] CLINICAL [address] [place], [place] [address] PATHOLOGY * POCT glucose, docked (07/06/2020 2:19 AM EST) POC Glucose 173 (H) 70 - 140 mg/dL [facility] POC Specimen Whole Blood Performing Organization Address [facility] one Number POINT OF CARE TEST [address] [place], [place] [id number] [place] [address] POC [address] [place] [address] documented in this encounter Visit Diagnoses Diagnosis Colitis Other and unspecified noninfectious gas troenteritis and colitis Gastrointestinal hemorrhage, unspecifie d gastrointestinal hemorrhage type C. difficile colitis Intestinal infection due to clostridium difficile Hypophosphatemia Disorders of phosphorus metabolism Alcoholic cirrhosis Alcoholic cirrhosis of liver Mood disorder Unspecified episodic mood disorder Alcohol use Other problems related to lifestyle Tobacco use Tobacco use disorder Essential hypertension Unspecified essential hypertension documented in this encounter Administered Medications Action Date Dose Rate Site Medication Order MAR Action 07/09/2020 8:56 PM EST 1 lozenge benzocaine-menthol (CEPACOL) 15-3.6 MG Given per lozenge 1 lozenge 1 lozenge, Mouth/Throat, Every 2 hour s PRN, Sore Throat, Starting [facility] 07/06/20 at 1612, For 30 days 1 lozenge Given 07/09/2020 3:32 PM EST 1 lozenge Given 07/09/2020 11:25 AM EST 07/10/2020 8:49 AM EST 40 mg enoxaparin sodium (LOVENOX) injection 40 Given mg 40 mg, Subcutaneous, Daily Standard, First dose on 07/10/20 at 0900, For 30 days 07/10/2020 8:49 AM EST 1 mg folic acid (FOLVITE) tablet 1 mg Given 1 mg, Oral, Daily Standard, First dose on Fri07/07/20 at 1445, For 30 days 1 mg Given 07/09/2020 8:06 AM EST 1 mg Given 07/08/2020 9:54 AM EST 07/10/2020 2:31 PM EST 25 mg hydrOXYzine (ATARAX) tablet 25 mg Given 25 mg, Oral, Every 6 hours PRN, Anxiety, Starting 07/09/20 at 0900, For 48 hours 25 mg Given 07/10/2020 4:06 AM EST 25 mg Given 07/09/2020 4:43 PM EST 07/10/2020 8:49 AM EST 10 mg lisinopril (ZESTRIL) tablet 10 mg Given 10 mg, Oral, Daily Standard, First dos e on 07/07/20 at 0900, For 30 days 10 mg Given 07/09/2020 8:06 AM EST 10 mg Given 07/08/2020 9:54 AM EST 07/09/2020 8:57 PM EST 10 mLs maalox/lidocaine/diphenhydrAMINE Given (RADIATION MIXTURE) 1:1:1 oral suspension 10 mL 10 mL, Swish & Spit, Four Times Daily-PRN, throat pain, Starting 07/08/20 at 0945, For 120 hours 10 mLs Given 07/09/2020 3:44 PM EST 10 mLs Given 07/09/2020 4:57 AM EST 07/10/2020 8:50 AM EST 1 patch Left Arm nicotine (NICODERM CQ) 7 MG/24HR 1 patch Patch 1 patch, Transdermal, Administer over 24 Applied Hours, Daily Standard, First dose on 07/08/20 at 0900, For 30 days 1 patch Left Arm Patch Applied 07/09/2020 8:14 AM EST 1 patch Left Arm Patch Applied 07/08/2020 9:55 AM EST 07/09/2020 8:56 PM EST 2 mg nicotine polacrilex (NICORETTE) gum 2 mg Given 2 mg, Oral, Every 2 hours PRN, Smokin g cessation, Starting 07/07/20 at 1518 , For 30 days 2 mg Given 07/09/2020 3:32 PM EST 2 mg Given 07/08/2020 8:55 PM EST 07/08/2020 10:45 PM EST 4 mg ondansetron (ZOFRAN) injection 4 mg New Bag 4 mg, Intravenous, Every 8 hours PRN, Nausea, Vomiting, Starting [facility] 07/06/20 at 1004, For 30 days 4 mg New Bag 07/08/2020 2:19 PM EST 4 mg Given by IV push 07/06/2020 10:26 AM EST 07/10/2020 8:49 AM EST 40 mg pantoprazole (PROTONIX) EC tablet 40 mg Given 40 mg, Oral, 2 Times Daily, First dose on 07/09/20 at 2100, For 30 days, Do not crush or chew, 40 mg Given 07/09/2020 8:55 PM EST 07/10/2020 8:48 AM EST 500 mg phosphorus (K PHOS NEUTRAL) tablet 500 Given mg 500 mg, Oral, Daily Standard, First dose (after last modification) on 07/10/20 at 0900, For 2 days, Each 250 m g tablet contains: elemental phosphorous 250 mg (8 mmol), sodium 298 mg (12.9 mEq), and potassium 45 mg (1.1 mEq), 07/10/2020 8:50 AM EST 100 mg thiamine (B-1) tablet 100 mg Given 100 mg, Oral, Daily Standard, First dose on Fri07/07/20 at 1445, For 30 day s 100 mg Given 07/09/2020 8:06 AM EST 100 mg Given 07/08/2020 9:54 AM EST 07/10/2020 11:53 AM EST 125 mg vancomycin (VANCOCIN) 50 mg/mL oral Given solution 125 mg 125 mg, Oral, Every 6 hours, First dose on Fri07/07/20 at 1100, For 10 days, Indicated for severe C. difficile infection, defined as: WBC > 15,00 0 SCr > 1.5 times the premorbid level Hypotension or shock Ileus Megacolon, 125 mg Given 07/10/2020 4:06 AM EST 125 mg Given 07/09/2020 10:14 PM EST Action Date Dose Rate Site Medication Order MAR Action 07/06/2020 8:01 AM EST 100 g 200 mL/hr albumin human (ALBUMINAR) 25 % bottle Bolus from 100 g Bag 100 g, Intravenous, at 200 mL/hr, Once, [facility] 07/06/20 at 0315, For 1 dose 07/09/2020 3:32 PM EST 0.5 mg alprazolam (XANAX) tablet 0.5 mg Given 0.5 mg, Oral, Once, [facility] 07/09/20 at 1515 , For 1 dose 07/10/2020 9:37 AM EST 0.5 mg alprazolam (XANAX) tablet 0.5 mg Given 0.5 mg, Oral, Once, [facility] 07/10/20 at 0930 , For 1 dose 07/07/2020 10:12 AM EST 100 mg atenolol (TENORMIN) tablet 100 mg Given 100 mg, Oral, Daily Standard, First dose on Fri07/07/20 at 0900, For 30 days, Check vital signs before administering, 07/07/2020 4:15 AM EST 10 mg busPIRone (BUSPAR) tablet 10 mg Given 10 mg, Oral, Once, Fri07/07/20 at 0400, For 1 dose 07/07/2020 3:00 PM EST 100 mL/hr cefTRIAXone (ROCEPHIN) infusion 1 g Rate/Dose (premix) Verify 1 g, Intravenous, at 100 mL/hr, Every 2 4 hours, First dose on [facility] 07/06/20 at 1515, For 3 days, Discouraged Uses: Empiric treatment of post-surgical meningitis (ceftazidime preferred), 100 mL/hr Rate/Dose Verify 07/07/2020 2:52 PM EST 1 g 100 mL/hr New Bag 07/07/2020 2:48 PM EST 07/09/2020 3:29 AM EST 10 mg diazePAM (VALIUM) tablet 10 mg Given 10 mg, Oral, Every 1 hour, First dose (after last modification) on Sat 0 at 2300, For 4 doses, Maximum of 40 mg in 4 hour period. If patient is sleeping, do not wake them to administe r Diazepam or to assess the CIWA score. Assess once patient awakens., 10 mg Given 07/09/2020 2:38 AM EST 10 mg Given 07/09/2020 12:44 AM EST 07/07/2020 3:25 AM EST 20 mg famotidine (PEPCID) tablet 20 mg Given 20 mg, Oral, Once, Fri07/07/20 at 0315, For 1 dose 07/06/2020 2:43 PM EST 50 mcg fentaNYL (SUBLIMAZE) (PF) injection 50 Given by IV mcg push 50 mcg, Intravenous, Once, [facility] 07/06/20 at 1430, For 1 dose 07/06/2020 2:43 PM EST 50 mcg fentaNYL (SUBLIMAZE) (PF) injection 50 Given by IV mcg push 50 mcg, Intravenous, Once, [facility] 07/06/20 at 1430, For 1 dose 07/06/2020 1:55 PM EST 50 mcg fentaNYL (SUBLIMAZE) (PF) injection Given Code/Trauma Medication, Starting [facility] 07/06/20 at 1352 50 mcg Given 07/06/2020 1:52 PM EST fentaNYL (SUBLIMAZE) 100 MCG/2ML (PF) injection Starting [facility] 07/06/20 at 1337, For 1 dose, Ryan Simpson : davian override, 07/07/2020 8:14 AM EST 1 mg folic acid (FOLVITE) tablet 1 mg Given 1 mg, Oral, Daily Standard, First dose (after last modification) on [facility] 0 at 1215, For 5 days 07/06/2020 1:15 PM EST 100 mL/hr folic acid 1 mg in sodium chloride 0.9 % Rate/Dose 50 mL IVPB Verify 1 mg, Intravenous, Administer over 30 Minutes, Daily Standard, First dose (after last modification) on [facility] 0 at 1215, For 5 days 1 mg 100 mL/hr New Bag 07/06/2020 1:14 PM EST 07/06/2020 8:12 AM EST 5,000 Units heparin (porcine) 5000 UNIT/ML injection Given 5,000 Units 5,000 Units, Subcutaneous, 2 Times Daily, First dose on [facility] 07/06/20 at 0900, For 30 days 07/06/2020 8:37 AM EST 25 mg hydrOXYzine (ATARAX) tablet 25 mg Given 25 mg, Oral, Every 6 hours PRN, Anxiety, Starting [facility] 07/06/20 at 0406, For 30 days 07/07/2020 3:25 AM EST 25 mg hydrOXYzine (ATARAX) tablet 25 mg Given 25 mg, Oral, Once, Fri07/07/20 at 0300, For 1 dose 07/08/2020 4:52 AM EST 25 mg hydrOXYzine (ATARAX) tablet 25 mg Given 25 mg, Oral, Every 6 hours PRN, Itching, Starting Fri07/07/20 at 1056, For 30 days 25 mg Given 07/07/2020 11:39 AM EST 07/08/2020 8:54 PM EST 25 mg hydrOXYzine (ATARAX) tablet 25 mg Given 25 mg, Oral, Every 6 hours PRN, Anxiety, Starting 07/08/20 at 0936, For 697 hours 25 mg Given 07/08/2020 12:06 PM EST 07/06/2020 4:20 AM EST 1,000 mLs 999 mL/hr lactated ringers bolus 1,000 mL New Bag 1,000 mL, Intravenous, Once, [facility] 0 at 0330, For 1 dose 07/06/2020 7:13 AM EST 1,000 mLs 999 mL/hr lactated ringers bolus 1,000 mL New Bag 1,000 mL, Intravenous, Once, [facility] 0 at 0645, For 1 dose 07/08/2020 10:02 AM EST 75 mL/hr 75 mL/hr lactated ringers infusion Rate/Dose at 75 mL/hr, Intravenous, Continuous, Change Starting [facility] 07/06/20 at 0345, For 3 day s 100 mL/hr 100 mL/hr New Bag 07/08/2020 4:57 AM EST 100 mL/hr 100 mL/hr New Bag 07/07/2020 6:50 PM EST 07/07/2020 8:13 AM EST 30 mLs lactulose (CHRONULAC) solution 30 mL Given 30 mL, Oral, Three Times Daily Standard, First dose on [facility] 07/06/20 at 1700, For 30 days, Titrate to 2-3 bowel movements daily, 07/08/2020 6:28 AM EST 0.5 mg LORazepam (ATIVAN) injection 0.5 mg New Bag 0.5 mg, Intravenous, Once, 07/08/20 at 0615, For 1 dose 07/06/2020 10:26 AM EST 2 mg LORazepam (ATIVAN) injection 2 mg Given by IV 2 mg, Intravenous, Once, [facility] 07/06/20 at push 1015, For 1 dose 07/08/2020 8:52 AM EST 10 mLs maalox/lidocaine/diphenhydrAMINE Given (RADIATION MIXTURE) 1:1:1 oral suspension 10 mL 10 mL, Swish & Spit, 2 Times Daily PRN, throat pain, Starting 07/07/20 at 1517, For 30 days 10 mLs Given 07/07/2020 7:51 PM EST 07/10/2020 8:55 AM EST 1 g 100 mL/hr magnesium sulfate in dextrose 5 % New Bag infusion (premix) 1 g 1 g, Intravenous, Administer over 60 Minutes, Once, 07/10/20 at 0800, For 1 dose 07/09/2020 5:57 AM EST 2 g 50 mL/hr magnesium sulfate infusion 2 g/50 mL New Bag (premix) 2 g, Intravenous, Administer over 60 Minutes, Once, 07/09/20 at 0545, For 1 dose 07/06/2020 1:52 PM EST 2 mg midazolam (PF) (VERSED) injection Given Code/Trauma Medication, Starting [facility] 07/06/20 at 1352 07/06/2020 1:55 PM EST 2 mg midazolam (PF) (VERSED) injection Given Code/Trauma Medication, Starting Fri07/06/20 at 1355 07/06/2020 1:57 PM EST 2 mg midazolam (PF) (VERSED) injection Given Code/Trauma Medication, Starting [facility] 07/06/20 at 1357 07/07/2020 8:00 AM EST 50 mcg/hr 10 mL/hr octreotide (SANDOSTATIN) 5 mcg/mL in Rate/Dose sodium chloride 0.9 % 250 mL infusion Verify 50 mcg/hr (10 mL/hr), Intravenous, at 1 0 mL/hr, Continuous, Starting [facility] 07/06/20 at 0315, For 30 days 50 mcg/hr 10 mL/hr Rate/Dose Verify 07/07/2020 7:00 AM EST 50 mcg/hr 10 mL/hr Rate/Dose Verify 07/07/2020 6:00 AM EST 07/06/2020 5:20 AM EST 10 mg oxyCODONE (ROXICODONE) immediate release Given tablet 10 mg 10 mg, Oral, Once, [facility] 07/06/20 at 0415, For 1 dose, Oxycodone immediate release is limited to 10 mg per dose. Higher doses ( only) require Pain Service consultation and approval., 07/07/2020 4:15 AM EST 10 mg oxyCODONE (ROXICODONE) immediate release Given tablet 10 mg 10 mg, Oral, Every 6 hours PRN, Moderate Pain (Pain Scale Score 4-6), Starting [facility] 07/06/20 at 1000, For 3 days, Oxycodone immediate release is limited to 10 mg per dose. Higher doses ( only) require Pain Service consultation and approval., 10 mg Given 07/06/2020 10:46 PM EST 10 mg Given 07/06/2020 4:04 PM EST 07/07/2020 2:45 PM EST 10 mg oxyCODONE (ROXICODONE) immediate release Given tablet 10 mg 10 mg, Oral, Every 6 hours PRN, Sever e Pain (Pain Scale Score 7-10), Starting Fri07/07/20 at 0833, For 49 hours, Oxycodone immediate release is limited to 10 mg per dose. Higher doses ( only) require Pain Service consultation and approval., 07/10/2020 2:40 AM EST 5 mg oxyCODONE (ROXICODONE) immediate release Given tablet 5 mg 5 mg, Oral, Every 4 hours PRN, Moderate Pain (Pain Scale Score 4-6), Starting 07/07/20 at 0833, For 3 days, Oxycodone immediate release is limited to 10 mg per dose. Higher doses ( only) require Pain Service consultation and approval., 5 mg Given 07/09/2020 8:55 PM EST 5 mg Given 07/09/2020 4:43 PM EST 07/07/2020 10:00 AM EST 8 mg/hr 20 mL/hr pantoprazole (PROTONIX) 0.4 mg/mL in Rate/Dose sodium chloride 0.9 % 250 mL infusion Verify 8 mg/hr (20 mL/hr), Intravenous, at 20 mL/hr, Continuous, Starting [facility] 07/06/20 at 0315, For 30 days, Indication: Activ e GI bleed 8 mg/hr 20 mL/hr Rate/Dose Verify 07/07/2020 9:00 AM EST 8 mg/hr 20 mL/hr Restarted - All Meds 07/07/2020 8:30 AM EST 07/09/2020 8:06 AM EST 40 mg pantoprazole (PROTONIX) injection 40 mg New Bag 40 mg, Intravenous, 2 Times Daily, Firs t dose on Fri07/07/20 at 0900, For 30 day s 40 mg New Bag 07/08/2020 8:54 PM EST 40 mg New Bag 07/08/2020 9:57 AM EST 07/07/2020 9:02 PM EST 250 mg phosphorus (K PHOS NEUTRAL) tablet 250 Given mg 250 mg, Oral, 2 Times Daily, First dose on Fri07/07/20 at 1445, For 30 days, Each 250 mg tablet contains: elemental phosphorous 250 mg (8 mmol), sodium 298 mg (12.9 mEq), and potassium 45 mg (1.1 mEq), 250 mg Given 07/07/2020 2:45 PM EST 07/09/2020 8:06 AM EST 500 mg phosphorus (K PHOS NEUTRAL) tablet 500 Given mg 500 mg, Oral, 2 Times Daily, First dose (after last modification) on Sat 0 at 0900, For 58 doses, Each 250 mg tablet contains: elemental phosphorous 250 mg (8 mmol), sodium 298 mg (12.9 mEq), and potassium 45 mg (1.1 mEq), 500 mg Given 07/08/2020 8:54 PM EST 500 mg Given 07/08/2020 9:54 AM EST 07/10/2020 6:06 AM EST 500 mg phosphorus (K PHOS NEUTRAL) tablet 500 Given mg 500 mg, Oral, Once, Fri07/10/20 at 0530 , For 1 dose, Each 250 mg tablet contains : elemental phosphorous 250 mg (8 mmol), sodium 298 mg (12.9 mEq), and potassium 45 mg (1.1 mEq), 07/06/2020 8:07 AM EST 25 mL/hr piperacillin-tazobactam (ZOSYN) IVPB Rate/Dose 3.375 g (premix) Change 3.375 g, Intravenous, Administer over 4 Hours, Every 8 hours, First dose on [facility] 07/06/20 at 0800, For 3 days, This specific formulation of piperacillin-tazobactam is compatible with Lactated Ringers., 3.375 g 12.5 mL/hr New Bag 07/06/2020 8:06 AM EST 07/06/2020 7:12 AM EST 40 mEq potassium chloride (K-DUR) dissolvable Given tablet 40 mEq 40 mEq, Oral, Once, [facility] 07/06/20 at 0645 , For 1 dose, May be dissolved in water for patients with a G-Tube or unable to swallow. If concern for clogging G-Tube , may contact Pharmacy to switch formulation to a powder packet., 07/09/2020 6:09 AM EST 20 mEq 100 mL/hr potassium chloride 20 mEq in 100 mL IVPB New Bag (premix) 20 mEq, Intravenous, Administer over 60 Minutes, Every 1 hour, First dose on 07/09/20 at 0500, For 2 doses 20 mEq 100 mL/hr New Bag 07/09/2020 4:56 AM EST 07/06/2020 2:12 PM EST 50 mL/hr potassium chloride 20 mEq in 50 mL IVPB Restarted - (premix) All Meds 20 mEq, Intravenous, Every 1 hour PRN, for serum potassium < 4 mEq/L, Starting [facility] 07/06/20 at 0733, For 7 days, * For patients with continuous ECG monitoring * Serum Potassium 3.7 - 3.9: give 20 mEq q1h x 1 Serum Potassium 3.6 and less: give 20 mEq q1h x 2 *For ICU Stay only, discontinue on transfer*, 50 mL/hr Rate/Dose Verify 07/06/2020 2:00 PM EST 20 mEq 50 mL/hr New Bag 07/06/2020 1:12 PM EST 07/09/2020 9:02 PM EST 500 mg potassium phosphate (monobasic) (K-PHOS Given ORIGINAL) tablet 500 mg 500 mg, Oral, Once, [facility] 11/8/20 at 2100 , For 1 dose, Dissolve tablets in 6-8 oz of water; for best results, soak tablet s in water for 2-5 minutes, then stir and give to patient., Each 500 mg tablet contains: elemental phosphorous 114 mg and potassium 144 mg (3.7 mEq), 07/07/2020 12:00 PM EST 50 mL/hr potassium phosphate infusion 12 mmol/100 Rate/Dose mL (central line) (premix) Verify 12 mmol, Intravenous, at 50 mL/hr, Ever y 2 hours PRN, for serum phosphate < 2.6 mg/dL, Starting [facility] 07/06/20 at 0733, Fo r 7 days, * For patients with continuous ECG monitoring * DO NOT USE IF SERUM POTASSIUM > 4 mEq/L Potassium content: 17.6 mEq Serum phosphate 2 - 2.5: give 12 mmol q2h x1 Serum phosphate 1.9 and less: give 12 mmol q2h x 2 *For ICU Stay only, discontinue on transfer* Slower infusion rates (e.g. over 4 hours) are recommended in patients with renal impairment and/or less severe hypophosphatemia. Product contains 17.6 mEq of potassium., For central line use only. , 50 mL/hr Restarted - All Meds 07/07/2020 11:41 AM EST 12 mmol 50 mL/hr New Bag 07/07/2020 11:40 AM EST 07/08/2020 4:55 AM EST 6 mmol 25 mL/hr potassium phosphate infusion 6 mmol/100 New Bag mL (premix) 6 mmol, Intravenous, at 25 mL/hr, Once, 07/08/20 at 0400, For 1 dose, Slower infusion rates (e.g. over 4 hours) are recommended in patients with renal impairment and/or less severe hypophosphatemia. Product contains 8.8 mEq of potassium., 07/08/2020 2:52 PM EST 6 mmol 25 mL/hr potassium phosphate infusion 6 mmol/100 New Bag mL (premix) 6 mmol, Intravenous, at 25 mL/hr, Once, 07/08/20 at 1345, For 1 dose, Slower infusion rates (e.g. over 4 hours) are recommended in patients with renal impairment and/or less severe hypophosphatemia. Product contains 8.8 mEq of potassium., 07/08/2020 7:21 PM EST 12 mmol 25 mL/hr sodium phosphate infusion 12 mmol/100 mL New Bag (central line) (premix) 12 mmol, Intravenous, at 25 mL/hr, Once , 07/08/20 at 1830, For 1 dose, For central line use only. Slower infusion rates (e.g. over 4 to 6 hours) are recommended in patients with renal impairment and/or less severe hypophosphatemia., For central line use only. , 07/07/2020 10:15 PM EST 6 mmol 25 mL/hr sodium phosphate infusion 6 mmol/100 mL New Bag (premix) 6 mmol, Intravenous, at 25 mL/hr, Once, 07/07/20 at 2130, For 1 dose, Slower infusion rate (e.g. over 4 to 6 hours) are recommended in patients with renal impairment and/or less severe hypophosphatemia., 07/06/2020 11:00 AM EST 100 mL/hr thiamine (B-1) 500 mg in sodium chloride Rate/Dose 0.9 % 50 mL IVPB Verify 500 mg, Intravenous, Administer over 30 Minutes, Every 24 hours, First dose on [facility] 07/06/20 at 0800, For 4 days 100 mL/hr Rate/Dose Verify 07/06/2020 10:51 AM EST 500 mg 100 mL/hr New Bag 07/06/2020 10:46 AM EST 07/07/2020 8:29 AM EST 100 mL/hr thiamine (B-1) 500 mg in sodium chloride Restarted - 0.9 % 50 mL IVPB All Meds 500 mg, Intravenous, Administer over 30 Minutes, Three Times Daily Standard, First dose on [facility] 07/06/20 at 1700, For 5 days 500 mg 100 mL/hr New Bag 07/07/2020 8:26 AM EST 100 mL/hr Restarted - All Meds 07/06/2020 9:41 PM EST documented in this encounter Additional Health Concerns Last Indicated Resolved Time Infection Onset Date 07/06/2020 C. difficile 07/06/2020 documented as of this encounter
--- OUTSIDE RECORDS SUMMARY | 2020-09-12 23:35 | CCD ---
Author Author [facility] Address Unknown Phone Unavailable Care Team Providers Care Face Burler Name Role Phone ADAMS, VALERIY MIKA RPA-C Unavailable Unavailable ADAMS, VALERIY MIKA RPA-C Unavailable Unavailable ADAMS, VALERIY MIKA RPA-C Unavailable Unavailable ADAMS, VALERIY MIKA RPA-C Unavailable Unavailable ADAMS, VALERIY MIKA RPA-C Unavailable Unavailable ADAMS, VALERIY MIKA RPA-C Unavailable Unavailable ADAMS, VALERIY MIKA RPA-C Unavailable Unavailable ADAMS, VALERIY MIKA RPA-C Unavailable Unavailable ADAMS, VALERIY MIKA RPA-C Unavailable Unavailable ADAMS, VALERIY MIKA RPA-C Unavailable Unavailable ADAMS, VALERIY MIKA RPA-C Unavailable Unavailable ADAMS, VALERIY MIKA RPA-C Unavailable Unavailable ADAMS, VALERIY MIKA RPA-C Unavailable Unavailable ADAMS, VALERIY MIKA RPA-C Unavailable Unavailable ADAMS, VALERIY MIKA RPA-C Unavailable Unavailable ADAMS, VALERIY MIKA RPA-C Unavailable Unavailable ADAMS, VALERIY MIKA RPA-C Unavailable Unavailable ADAMS, VALERIY MIKA RPA-C Unavailable Unavailable ADAMS, VALERIY MIKA RPA-C Unavailable Unavailable ADAMS, VALERIY MIKA RPA-C Unavailable Unavailable ADAMS, VALERIY MIKA RPA-C Unavailable Unavailable ADAMS, VALERIY MIKA RPA-C Unavailable Unavailable ADAMS, VALERIY MIKA RPA-C Unavailable Unavailable ADAMS, VALERIY MIKA RPA-C Unavailable Unavailable ADAMS, VALERIY MIKA RPA-C Unavailable Unavailable ADAMS, VALERIY MIKA RPA-C Unavailable Unavailable ADAMS, VALERIY MIKA RPA-C Unavailable Unavailable ADAMS, VALERIY MIKA RPA-C Unavailable Unavailable ADAMS, VALERIY MIKA RPA-C Unavailable Unavailable ADAMS, VALERIY MIKA RPA-C Unavailable Unavailable ADAMS, VALERIY MIKA RPA-C Unavailable Unavailable ADAMS, VALERIY MIKA RPA-C Unavailable Unavailable ADAMS, VALERIY MIKA RPA-C Unavailable Unavailable ADAMS, VALERIY MIKA RPA-C Unavailable Unavailable ADAMS, VALERIY MIKA RPA-C Unavailable Unavailable ADAMS, VALERIY MIKA RPA-C Unavailable Unavailable ADAMS, VALERIY MIKA RPA-C Unavailable Unavailable ADAMS, VALERIY MIKA RPA-C Unavailable Unavailable ALIA, SONAM PA Unavailable Unavailable ALIA, SONAM PA Unavailable Unavailable ALIA, SONAM PA Unavailable Unavailable ALIA, SONAM PA Unavailable Unavailable ALIA, SONAM PA Unavailable Unavailable ALIA, SONAM PA Unavailable Unavailable ALIA, SONAM PA Unavailable Unavailable ALIA, SONAM PA Unavailable Unavailable ALIA, SONAM PA Unavailable Unavailable ALIA, SONAM PA Unavailable Unavailable ALIA, SONAM PA Unavailable Unavailable ALIA, SONAM PA Unavailable Unavailable ALIA, SONAM PA Unavailable Unavailable ALIA, SONAM PA Unavailable Unavailable ALIA, SONAM PA Unavailable Unavailable AMADO BAXTER MD Unavailable Unavailable TODD ELKINS DO Unavailable Unavailable TRI BRENNAN CORN PRESS OPERATOR-C, MSN Unavailable Unavailab TRI Hilario CORN PRESS OPERATOR-C, MSN Unavailable Unavailab le TRI BRENNAN CORN PRESS OPERATOR-C, MSN Unavailable Unavailab TRI Hilario CORN PRESS OPERATOR-C, MSN Unavailable Unavailab TRI Hilario CORN PRESS OPERATOR-C, MSN Unavailable Unavailab le BRENNAN, TRI ANNE-MARIE CORN PRESS OPERATOR-C, MSN Unavailable Unavailab le BRENNAN, TRI ANNE-MARIE CORN PRESS OPERATOR-C, MSN Unavailable Unavailab le BRENNAN, TRI ANNE-MARIE CORN PRESS OPERATOR-C, MSN Unavailable Unavailab le BRENNAN, TRI ANNE-MARIE CORN PRESS OPERATOR-C, MSN Unavailable Unavailab le BRENNAN, TRI ANNE-MARIE CORN PRESS OPERATOR-C, MSN Unavailable Unavailab le BRENNAN, TRI ANNE-MARIE CORN PRESS OPERATOR-C, MSN Unavailable Unavailab le BRENNAN, TRI ANNE-MARIE CORN PRESS OPERATOR-C, MSN Unavailable Unavailab le BRENNAN, TRI ANNE-MARIE CORN PRESS OPERATOR-C, MSN Unavailable Unavailab le BRENNAN, TRI ANNE-MARIE CORN PRESS OPERATOR-C, MSN Unavailable Unavailab le BRENNAN, TRI ANNE-MARIE CORN PRESS OPERATOR-C, MSN Unavailable Unavailab le BRENNAN, TRI ANNE-MARIE CORN PRESS OPERATOR-C, MSN Unavailable Unavailab le BRENNAN, TRI ANNE-MARIE CORN PRESS OPERATOR-C, MSN Unavailable Unavailab le BRENNAN, TRI ANNE-MARIE CORN PRESS OPERATOR-C, MSN Unavailable Unavailab le BRENNAN, TRI ANNE-MARIE CORN PRESS OPERATOR-C, MSN Unavailable Unavailab le BRENNAN, TRI ANNE-MARIE CORN PRESS OPERATOR-C, MSN Unavailable Unavailab le BRENNAN, TRI ANNE-MARIE CORN PRESS OPERATOR-C, MSN Unavailable Unavailab le BRENNAN, TRI ANNE-MARIE CORN PRESS OPERATOR-C, MSN Unavailable Unavailab le BRENNAN, TRI ANNE-MARIE CORN PRESS OPERATOR-C, MSN Unavailable Unavailab le BRENNAN, TRI ANNE-MARIE CORN PRESS OPERATOR-C, MSN Unavailable Unavailab le BRENNAN, TRI ANNE-MARIE CORN PRESS OPERATOR-C, MSN Unavailable Unavailab le BRENNAN, TRI ANNE-MARIE CORN PRESS OPERATOR-C, MSN Unavailable Unavailab le BRENNAN, TRI ANNE-MARIE CORN PRESS OPERATOR-C, MSN Unavailable Unavailab le BRENNAN, TRI ANNE-MARIE CORN PRESS OPERATOR-C, MSN Unavailable Unavailab le BRENNAN, TRI ANNE-MARIE CORN PRESS OPERATOR-C, MSN Unavailable Unavailab le BRENNAN, TRI ANNE-MARIE CORN PRESS OPERATOR-C, MSN Unavailable Unavailab le BRENNAN, TRI ANNE-MARIE CORN PRESS OPERATOR-C, MSN Unavailable Unavailab le BRENNAN, TRI ANNE-MARIE CORN PRESS OPERATOR-C, MSN Unavailable Unavailab le BRENNAN, TRI ANNE-MARIE CORN PRESS OPERATOR-C, MSN Unavailable Unavailab le BRENNAN, TRI ANNE-MARIE CORN PRESS OPERATOR-C, MSN Unavailable Unavailab le BRENNAN, TRI ANNE-MARIE CORN PRESS OPERATOR-C, MSN Unavailable Unavailab le BRENNAN, TRI ANNE-MARIE CORN PRESS OPERATOR-C, MSN Unavailable Unavailab le BRENNAN, TRI ANNE-MARIE CORN PRESS OPERATOR-C, MSN Unavailable Unavailab le BRENNAN, TRI ANNE-MARIE CORN PRESS OPERATOR-C, MSN Unavailable Unavailab le BRENNAN, TRI ANNE-MARIE CORN PRESS OPERATOR-C, MSN Unavailable Unavailab le BRENNAN, TRI ANNE-MARIE CORN PRESS OPERATOR-C, MSN Unavailable Unavailab le BRENNAN, TRI ANNE-MARIE CORN PRESS OPERATOR-C, MSN Unavailable Unavailab le BRENNAN, TRI ANNE-MARIE CORN PRESS OPERATOR-C, MSN Unavailable Unavailab le Kat, Rastafarian Unavailable Unavailable Kat, Rastafarian Unavailable Unavailable Kat, Rastafarian Unavailable Unavailable [place], Rastafarian Unavailable Unavailable Kat, Rastafarian Unavailable Unavailable MITALI, BILLY EDITA PA Unavailable Unavailable MITALI, BILLY EDITA PA Unavailable Unavailable MITALI, BILLY EDITA PA Unavailable Unavailable MITALI, BILLY EDITA PA Unavailable Unavailable MITALI, BILLY EDITA PA Unavailable Unavailable MITALI, BILLY EDITA PA Unavailable Unavailable MITALI, BILLY EDITA PA Unavailable Unavailable MITALI, BILLY EDITA PA Unavailable Unavailable MITALI, BILLY EDITA PA Unavailable Unavailable MITALI, BILLY EDITA PA Unavailable Unavailable MITALI, BILLY EDITA PA Unavailable Unavailable MITALI, BILLY EDITA PA Unavailable Unavailable MITALI, BILLY EDITA PA Unavailable Unavailable MITALI, BILLY EDITA PA Unavailable Unavailable MITALI, BILLY EDITA PA Unavailable Unavailable MITALI, BILLY EDITA PA Unavailable Unavailable MITALI, BILLY EDITA PA Unavailable Unavailable MITALI, BILLY EDITA PA Unavailable Unavailable MITALI, BILLY EDITA PA Unavailable Unavailable MITALI, BILLY EDITA PA Unavailable Unavailable MITALI, BILLY EDITA PA Unavailable Unavailable ALINA NORMAN MD Unavailable Unavailable ALINA NORMAN MD Unavailable Unavailable ALINA NORMAN MD Unavailable Unavailable ALINA NORMAN MD Unavailable Unavailable Kurt OMALLEY MD Unavailable Unavailable SHAHRAMKurt LOPEZ MD Unavailable Unavailable SHAHRAMKurt LOPEZ MD Unavailable Unavailable SHAHRAMKurt LOPEZ MD Unavailable Unavailable SHAHRAMKurt LOPEZ MD Unavailable Unavailable SHAHRAMKurt LOPEZ MD Unavailable Unavailable SHAHRAMKurt LOPEZ MD Unavailable Unavailable SHAHRAMKurt LOPEZ MD Unavailable Unavailable SHAHRAMKurt MD Unavailable Unavailable SHAHRAMKurt LOPEZ MD Unavailable Unavailable SHAHRAMKurt LOPEZ MD Unavailable Unavailable SHAHRAMKurt LOPEZ MD Unavailable Unavailable SHAHRAMKurt LOPEZ MD Unavailable Unavailable SHAHRAMKurt LOPEZ MD Unavailable Unavailable SHAHRAMKurt LOPEZ MD Unavailable Unavailable SHAHRAMKurt LOPEZ MD Unavailable Unavailable SHAHRAMKurt LOPEZ MD Unavailable Unavailable SHAHRAMKurt LOPEZ MD Unavailable Unavailable SHAHRAMKurt LOPEZ MD Unavailable Unavailable SHAHRAMKurt LOPEZ MD Unavailable Unavailable SHAHRAMKurt LOPEZ MD Unavailable Unavailable SHAHRAMKurt LOPEZ MD Unavailable Unavailable SHAHRAMKurt LOPEZ MD Unavailable Unavailable SHAHRAMKurt LOPEZ MD Unavailable Unavailable SHAHRAMKurt LOPEZ MD Unavailable Unavailable SHAHRAMKurt LOPEZ MD Unavailable Unavailable SHAHRAMKurt LOPEZ MD Unavailable Unavailable Kurt OMALLEY MD Unavailable Unavailable SHAHRAMKurt LOPEZ MD Unavailable Unavailable SHAHRAMKurt LOPEZ MD Unavailable Unavailable SHAHRAMKurt LOPEZ MD Unavailable Unavailable SHAHRAMKurt LOPEZ MD Unavailable Unavailable SHAHRAMKurt LOPEZ MD Unavailable Unavailable SHAHRAMKurt LOPEZ MD Unavailable Unavailable SHAHRAMKurt LOPEZ MD Unavailable Unavailable SHAHRAMKurt LOPEZ MD Unavailable Unavailable SHAHRAMKurt LOPEZ MD Unavailable Unavailable SHAHRAMKurt LOPEZ MD Unavailable Unavailable SHAHRAMKurt LOPEZ MD Unavailable Unavailable SHAHRAMKurt LOPEZ MD Unavailable Unavailable SHAHRAMKurt LOPEZ MD Unavailable Unavailable SHAHRAMKurt LOPEZ MD Unavailable Unavailable SHAHRAMKurt LOPEZ MD Unavailable Unavailable SHAHRAMKurt LOPEZ MD Unavailable Unavailable SHAHRAMKurt LOPEZ MD Unavailable Unavailable SHAHRAMKurt LOPEZ MD Unavailable Unavailable SHAHRAMKurt LOPEZ MD Unavailable Unavailable SHAHRAMKurt LOPEZ MD Unavailable Unavailable SHAHRAMKurt LOPEZ MD Unavailable Unavailable SHAHRAMKurt LOPEZ MD Unavailable Unavailable SHAHRAMKurt LOPEZ MD Unavailable Unavailable SHAHRAMKurt LOPEZ MD Unavailable Unavailable SHAHRAMKurt LOPEZ MD Unavailable Unavailable SHAHRAMKurt LOPEZ MD Unavailable Unavailable SHAHRAMKurt LOPEZ MD Unavailable Unavailable Kurt OMALLEY MD Unavailable Unavailable Kurt OMALLEY MD Unavailable Unavailable Kurt OMALLEY MD Unavailable Unavailable MITALI, BILLY EDITA PA Unavailable Unavailable MITALI, BILLY EDITA PA Unavailable Unavailable MITALI, BILLY EDITA PA Unavailable Unavailable MITALI, BILLY EDITA PA Unavailable Unavailable MITALI, BILLY EDITA PA Unavailable Unavailable MITALI, BILLY EDITA PA Unavailable Unavailable MITALI, BILLY EDITA PA Unavailable Unavailable MITALI, BILLY EDITA PA Unavailable Unavailable MITALI, BILLY EDITA PA Unavailable Unavailable MITALI, BILLY EDITA PA Unavailable Unavailable MITALI, BILLY EDITA PA Unavailable Unavailable MITALI, BILLY EDITA PA Unavailable Unavailable MITALI, BILLY EDITA PA Unavailable Unavailable MITALI, BILLY EDITA PA Unavailable Unavailable MITALI, BILLY EDITA PA Unavailable Unavailable MITALI, BILLY EDITA PA Unavailable Unavailable MITALI, BILLY EDITA PA Unavailable Unavailable MITALI, BILLY EDITA PA Unavailable Unavailable MITALI, BILLY EDITA PA Unavailable Unavailable MITALI, BILLY EDITA PA Unavailable Unavailable MITALI, BILLY EDITA PA Unavailable Unavailable ADDISON JOY Unavailable Unavailable SYMENOW, G CHRISTOPHER PA Unavailable Unavailable SYMENOW, G CHRISTOPHER PA Unavailable Unavailable SYMENOW, G CHRISTOPHER PA Unavailable Unavailable SYMENOW, G CHRISTOPHER PA Unavailable Unavailable SYMENOW, G CHRISTOPHER PA Unavailable Unavailable SYMENOW, G CHRISTOPHER PA Unavailable Unavailable SYMENOW, G CHRISTOPHER PA Unavailable Unavailable SYMENOW, G CHRISTOPHER PA Unavailable Unavailable SYMENOW, G CHRISTOPHER PA Unavailable Unavailable SYMENOW, G CHRISTOPHER PA Unavailable Unavailable SYMENOW, G CHRISTOPHER PA Unavailable Unavailable SYMENOW, G CHRISTOPHER PA Unavailable Unavailable SYMENOW, G CHRISTOPHER PA Unavailable Unavailable SYMENOW, G CHRISTOPHER PA Unavailable Unavailable SYMENOW, G CHRISTOPHER PA Unavailable Unavailable SYMENOW, G CHRISTOPHER PA Unavailable Unavailable SYMENOW, G CHRISTOPHER PA Unavailable Unavailable Bimal DE LA CRUZ PA Unavailable Unavailable Bimal DE LA CRUZ PA Unavailable Unavailable Bimal DE LA CRUZ PA Unavailable Unavailable Bimal DE LA CRUZ PA Unavailable Unavailable Bimal DE LA CRUZ PA Unavailable Unavailable DOROTHY, L NORMA PA Unavailable Unavailable DOROTHY, L NORMA PA Unavailable Unavailable DOROTHY, L NORMA PA Unavailable Unavailable DOROTHY, L NORMA PA Unavailable Unavailable DOROTHY, L NORMA PA Unavailable Unavailable DOROTHY, L NORMA PA Unavailable Unavailable DOROTHY, L NORMA PA Unavailable Unavailable DOROTHY, L NORMA PA Unavailable Unavailable DOROTHY, L NORMA PA Unavailable Unavailable DOROTHY, L NORMA PA Unavailable Unavailable DOROTHY, L NORMA PA Unavailable Unavailable DOROTHY, L NORMA PA Unavailable Unavailable DOROTHY, L NORMA PA Unavailable Unavailable DOROTHY, L NORMA PA Unavailable Unavailable Edick, Whitney FOREIGN LANGUAGE INSTRUCTOR Unavailable Unavailable Edick, Whitney FOREIGN LANGUAGE INSTRUCTOR Unavailable Unavailable Edick, Whitney FOREIGN LANGUAGE INSTRUCTOR Unavailable Unavailable Edick, Whitney FOREIGN LANGUAGE INSTRUCTOR Unavailable Unavailable Edick, Whitney FOREIGN LANGUAGE INSTRUCTOR Unavailable Unavailable Edick, Whitney FOREIGN LANGUAGE INSTRUCTOR Unavailable Unavailable Edick, Whitney FOREIGN LANGUAGE INSTRUCTOR Unavailable Unavailable Edick, Whitney FOREIGN LANGUAGE INSTRUCTOR Unavailable Unavailable Edick, Whitney FOREIGN LANGUAGE INSTRUCTOR Unavailable Unavailable Edick, Whitney FOREIGN LANGUAGE INSTRUCTOR Unavailable Unavailable Edick, Whitney FOREIGN LANGUAGE INSTRUCTOR Unavailable Unavailable Edick, Whitney FOREIGN LANGUAGE INSTRUCTOR Unavailable Unavailable BRENNAN, TRI ANNE-MARIE CORN PRESS OPERATOR-C, MSN Unavailable Unavailab le BRENNAN, TRI ANNE-MARIE CORN PRESS OPERATOR-C, MSN Unavailable Unavailab le BRENNAN, TRI ANNE-MARIE CORN PRESS OPERATOR-C, MSN Unavailable Unavailab le BRENNAN, TRI ANNE-MARIE CORN PRESS OPERATOR-C, MSN Unavailable Unavailab le BRENNAN, TRI ANNE-MARIE CORN PRESS OPERATOR-C, MSN Unavailable Unavailab le BRENNAN, TRI ANNE-MARIE CORN PRESS OPERATOR-C, MSN Unavailable Unavailab le BRENNAN, TRI ANNE-MARIE CORN PRESS OPERATOR-C, MSN Unavailable Unavailab le BRENNAN, TRI ANNE-MARIE CORN PRESS OPERATOR-C, MSN Unavailable Unavailab le BRENNAN, TRI ANNE-MARIE CORN PRESS OPERATOR-C, MSN Unavailable Unavailab le BRENNAN, TRI ANNE-MARIE CORN PRESS OPERATOR-C, MSN Unavailable Unavailab le BRENNAN, TRI ANNE-MARIE CORN PRESS OPERATOR-C, MSN Unavailable Unavailab le BRENNAN, TRI ANNE-MARIE CORN PRESS OPERATOR-C, MSN Unavailable Unavailab le BRENNAN, TRI ANNE-MARIE CORN PRESS OPERATOR-C, MSN Unavailable Unavailab le BRENNAN, TRI ANNE-MARIE CORN PRESS OPERATOR-C, MSN Unavailable Unavailab le BRENNAN, TRI ANNE-MARIE CORN PRESS OPERATOR-C, MSN Unavailable Unavailab le BRENNAN, TRI ANNE-MARIE CORN PRESS OPERATOR-C, MSN Unavailable Unavailab le BRENNAN, TRI ANNE-MARIE CORN PRESS OPERATOR-C, MSN Unavailable Unavailab le BRENNAN, TRI ANNE-MARIE CORN PRESS OPERATOR-C, MSN Unavailable Unavailab le BRENNAN, TRI ANNE-MARIE CORN PRESS OPERATOR-C, MSN Unavailable Unavailab le BRENNAN, TRI ANNE-MARIE CORN PRESS OPERATOR-C, MSN Unavailable Unavailab le BRENNAN, TRI ANNE-MARIE CORN PRESS OPERATOR-C, MSN Unavailable Unavailab le BRENNAN, TRI ANNE-MARIE CORN PRESS OPERATOR-C, MSN Unavailable Unavailab le BRENNAN, TRI ANNE-MARIE CORN PRESS OPERATOR-C, MSN Unavailable Unavailab le BRENNAN, TRI ANNE-MARIE CORN PRESS OPERATOR-C, MSN Unavailable Unavailab le BRENNAN, TRI ANNE-MARIE CORN PRESS OPERATOR-C, MSN Unavailable Unavailab le BRENNAN, TRI ANNE-MARIE CORN PRESS OPERATOR-C, MSN Unavailable Unavailab le BRENNAN, TRI ANNE-MARIE CORN PRESS OPERATOR-C, MSN Unavailable Unavailab le BRENNAN, TRI ANNE-MARIE CORN PRESS OPERATOR-C, MSN Unavailable Unavailab le BRENNAN, TRI ANNE-MARIE CORN PRESS OPERATOR-C, MSN Unavailable Unavailab le BRENNAN, TRI ANNE-MARIE CORN PRESS OPERATOR-C, MSN Unavailable Unavailab le BRENNAN, TRI ANNE-MARIE CORN PRESS OPERATOR-C, MSN Unavailable Unavailab le BRENNAN, TRI ANNE-MARIE CORN PRESS OPERATOR-C, MSN Unavailable Unavailab le BRENNAN, TRI ANNE-MARIE CORN PRESS OPERATOR-C, MSN Unavailable Unavailab le BRENNAN, TRI ANNE-MARIE CORN PRESS OPERATOR-C, MSN Unavailable Unavailab le BRENNAN, TRI ANNE-MARIE CORN PRESS OPERATOR-C, MSN Unavailable Unavailab le BRENNAN, TRI ANNE-MARIE CORN PRESS OPERATOR-C, MSN Unavailable Unavailab le BRENNAN, TRI ANNE-MARIE CORN PRESS OPERATOR-C, MSN Unavailable Unavailab le BRENNAN, TRI ANNE-MARIE CORN PRESS OPERATOR-C, MSN Unavailable Unavailab le BRENNAN, TRI ANNE-MARIE CORN PRESS OPERATOR-C, MSN Unavailable Unavailab le BRENNAN, TRI ANNE-MARIE CORN PRESS OPERATOR-C, MSN Unavailable Unavailab le BRENNAN, TRI ANNE-MARIE CORN PRESS OPERATOR-C, MSN Unavailable Unavailab le BRENNAN, TRI ANNE-MARIE CORN PRESS OPERATOR-C, MSN Unavailable Unavailab le Melissa BAXTER MD Unavailable Unavailable Melissa BAXTER MD Unavailable Unavailable Melissa BAXTER MD Unavailable Unavailable ESTHER PACHECO . Unavailable Unavailable AMZUTA, Ashkan KASSIEKAYLEIGH HANDY Unavailable Unavailable AMZUTA, Ashkan KASSIE MD Unavailable Unavailable AMZUTA, Ashkan KASSIE MD Unavailable Unavailable AMZUTA, Ashkan KASSIE MD Unavailable Unavailable AMZUTA, Ashkan KASSIE MD Unavailable Unavailable AMZUTA, G KASSIE MD Unavailable Unavailable AMZUTA, G KASSIE MD Unavailable Unavailable AMZUTA, G KASSIE MD Unavailable Unavailable AMZUTA, G KASSIE MD Unavailable Unavailable AMZUTA, G KASSIE MD Unavailable Unavailable AMZUTA, G KASSIE MD Unavailable Unavailable AMZUTA, G KASSIE MD Unavailable Unavailable AMZUTA, G KASSIE MD Unavailable Unavailable AMZUTA, G KASSIE MD Unavailable Unavailable AMZUTA, G KASSIE MD Unavailable Unavailable AMZUTA, G KASSIE MD Unavailable Unavailable AMZUTA, G KASSIE MD Unavailable Unavailable AMZUTA, G KASSIE MD Unavailable Unavailable AMZUTA, G KASSIE MD Unavailable Unavailable AMZUTA, G KASSIE MD Unavailable Unavailable AMZUTA, Ashkan KASSIE MD Unavailable Unavailable AMZUTA, Ashkan KASSIE MD Unavailable Unavailable AMZUTA, Ashkan KASSIE MD Unavailable Unavailable AMZUTA, Ashkan KASSIE MD Unavailable Unavailable AMZUTA, G KASSIE MD Unavailable Unavailable AMZUTA, G KASSIE MD Unavailable Unavailable AMZUTA, G KASSIE MD Unavailable Unavailable AMZUTA, Ashkan KASSIE MD Unavailable Unavailable AMZUTA, G KASSIE MD Unavailable Unavailable AMZUTA, Ashkan KASSIE MD Unavailable Unavailable AMZUTA, G KASSIE MD Unavailable Unavailable AMZUTA, Ashkan KASSIE MD Unavailable Unavailable AMZUTA, Ashkan KASSIE MD Unavailable Unavailable AMZUTA, Ashkan KASSIE MD Unavailable Unavailable AMZUTA, Ashkan KASSIE MD Unavailable Unavailable AMZUTA, Ashkan KASSIE MD Unavailable Unavailable AMZUTA, Ashkan KASSIE MD Unavailable Unavailable AMZUTA, G KASSIE MD Unavailable Unavailable AMZUTA, Ashkan KASSIE MD Unavailable Unavailable AMZUTA, G KASSIE MD Unavailable Unavailable KAYE, W FREDI PA Unavailable Unavailable KAYE, W FREDI PA Unavailable Unavailable KAYE, W FREDI PA Unavailable Unavailable KAYE, W FREDI PA Unavailable Unavailable KAYE, W FREDI PA Unavailable Unavailable KAYE, W FREDI PA Unavailable Unavailable KAYE, W FREDI PA Unavailable Unavailable KAYE, W FREDI PA Unavailable Unavailable KAYE, W FREDI PA Unavailable Unavailable KAYE, W FREDI PA Unavailable Unavailable KAYE, W FREDI PA Unavailable Unavailable KAYE, W FREDI PA Unavailable Unavailable KAYE, W FREDI PA Unavailable Unavailable KAYE, W FREDI PA Unavailable Unavailable KAYE, W FREDI PA Unavailable Unavailable KAYE, W FREDI PA Unavailable Unavailable KAYE, W FREDI PA Unavailable Unavailable KAYE, W FREDI PA Unavailable Unavailable KAYE, W FREDI PA Unavailable Unavailable KAYE, W FREDI PA Unavailable Unavailable KAYE, W FREDI PA Unavailable Unavailable KAYE, W FREDI PA Unavailable Unavailable KAYE, W FREDI PA Unavailable Unavailable KAYE, W FREDI PA Unavailable Unavailable KAYE, W FREDI PA Unavailable Unavailable KAYE, W FREDI PA Unavailable Unavailable KAYE, W FREDI PA Unavailable Unavailable KAYE, W FREDI PA Unavailable Unavailable KAYE, W FREDI PA Unavailable Unavailable KAYE, W FREDI PA Unavailable Unavailable KAYE, W FREDI PA Unavailable Unavailable KAYE, W FREDI PA Unavailable Unavailable KAYE, W FREDI PA Unavailable Unavailable KAYE, W FREDI PA Unavailable Unavailable KAYE, W FREDI PA Unavailable Unavailable KAYE, W FREDI PA Unavailable Unavailable KAYE, W FREDI PA Unavailable Unavailable KAYE, W FREDI PA Unavailable Unavailable KAYE, W FREDI PA Unavailable Unavailable KAYE, W FREDI PA Unavailable Unavailable KAYE, W FREDI PA Unavailable Unavailable KAYE, W FREDI PA Unavailable Unavailable KAYE, W FREDI PA Unavailable Unavailable KAYE, W FREDI PA Unavailable Unavailable KAYE, W FREDI PA Unavailable Unavailable KAYE, W FREDI PA Unavailable Unavailable Katarzyna Haas MD Unavailable [email or web address] Katarzyna Haas MD Unavailable [email or web address] Katarzyna Haas MD Unavailable [email or web address] Katarzyna Haas MD Unavailable [email or web address] Katarzyna Haas MD Unavailable [email or web address] Katarzyna Haas MD Unavailable [email or web address] Katarzyna Haas MD Unavailable [email or web address] Gisselle Segura MD Unavailable Unavailable Gisselle Segura MD Unavailable Unavailable Gisselle Segura MD Unavailable Unavailable Gisselle Segura MD Unavailable Unavailable Gisselle Segura MD Unavailable Unavailable Gisselle Segura MD Unavailable Unavailable Colton, Gisselle Cade MD Unavailable Unavailable Colton, Gisselle Cade MD Unavailable Unavailable Colton, Gisselle Cade MD Unavailable Unavailable Colton, Gisselle Cade MD Unavailable Unavailable Colton, Gisselle Cade MD Unavailable Unavailable Colton, Gisselle Cade MD Unavailable Unavailable Colton, Gisselle Cade MD Unavailable Unavailable Colton, Gisselle Cade MD Unavailable Unavailable Colton, Gisselle Cade MD Unavailable Unavailable Colton, Gisselle Cade MD Unavailable Unavailable Colton, Gisselle Cade MD Unavailable Unavailable Colton, Gisselle Cade MD Unavailable Unavailable Colton, Gisselle Cade MD Unavailable Unavailable Colton, Gisselle Cade MD Unavailable Unavailable Colton, Gisselle Cade MD Unavailable Unavailable Colton, Gisselle Cade MD Unavailable Unavailable Colton, Gisselle Cade MD Unavailable Unavailable Colton, Gisselle Cade MD Unavailable Unavailable Colton, Gisselle Cade MD Unavailable Unavailable Colton, Gisselle Cade MD Unavailable Unavailable Colton, Gisselle Cade MD Unavailable Unavailable Colton, Gisselle Cade MD Unavailable Unavailable Colton, Gisselle Cade MD Unavailable Unavailable Colton, Gisselle Cade MD Unavailable Unavailable Colton, Gisselle Cade MD Unavailable Unavailable Colton, Gisselle Cade MD Unavailable Unavailable Colton, Gisselle Cade MD Unavailable Unavailable Colton, Gisselle Cade MD Unavailable Unavailable Colton, Gisselle Cade MD Unavailable Unavailable Colton, Gisselle Cade MD Unavailable Unavailable Colton, Gisselle Cade MD Unavailable Unavailable Colton, Gisselle Cade MD Unavailable Unavailable Colton, Gisselle Cade MD Unavailable Unavailable Colton, Gisselle Cade MD Unavailable Unavailable Colton, Gisselle Cade MD Unavailable Unavailable Colton, Gisselle Cade MD Unavailable Unavailable Colton, Gisselle Cade MD Unavailable Unavailable Colton, Gisselle Cade MD Unavailable Unavailable Colton, Gisselle Cade MD Unavailable Unavailable Colton, Gisselle Cade MD Unavailable Unavailable Colton, Gisselle Cade MD Unavailable Unavailable Colton, Gisselle Cade MD Unavailable Unavailable Colton, Gisselle Cade MD Unavailable Unavailable Colton, Gisselle Cade MD Unavailable Unavailable Colton, Gisselle Cade MD Unavailable Unavailable Colton, Gisselle Cade MD Unavailable Unavailable Colton, Gisselle Cade MD Unavailable Unavailable Colton, Gisselle Cade MD Unavailable Unavailable Colton, Gisselle Cade MD Unavailable Unavailable Colton, Gisselle Cade MD Unavailable Unavailable Colton, Gisselle Cade MD Unavailable Unavailable Colton, Gisselle Cade MD Unavailable Unavailable Colton, Gisselle Cade MD Unavailable Unavailable Colton, Gisselle Cade MD Unavailable Unavailable Colton, Gisselle Cade MD Unavailable Unavailable Colton, Gisselle Cade MD Unavailable Unavailable Gisselle Segura MD Unavailable Unavailable ColtonGisselle aldana MD Unavailable Unavailable SUNG, BROOKS DO Unavailable +011 SUNG, BROOKS DO Unavailable +011 SUNG, BROOKS DO Unavailable +011 SUNG, BROOKS DO Unavailable +011 SUNG, BROOKS DO Unavailable +011 SUNG, BROOKS DO Unavailable +011 SUNG, BROOKS DO Unavailable +011 SUNG, BROOKS DO Unavailable +011 SUNG, BROOKS DO Unavailable +011 SUNG, BROOKS DO Unavailable +011 SUNG, RBOOKS DO Unavailable +011 SUNG, BROOKS DO Unavailable +011 SUNG, BROOKS DO Unavailable +011 DOROTHY, L NORMA PA Unavailable Unavailable DOROTHY, L NORMA PA Unavailable Unavailable DOROTHY, L NORMA PA Unavailable Unavailable DOROTHY, L NORMA PA Unavailable Unavailable DOROTHY, L NORMA PA Unavailable Unavailable DOROTHY, L NORMA PA Unavailable Unavailable DOROTHY, L NORMA PA Unavailable Unavailable DOROTHY, L NORMA PA Unavailable Unavailable DOROTHY, L NORMA PA Unavailable Unavailable DOROTHY, L NORMA PA Unavailable Unavailable DOROTHY, L NORMA PA Unavailable Unavailable DOROTHY, L NORMA PA Unavailable Unavailable DOROTHY, L NORMA PA Unavailable Unavailable DOROTHY, L NORMA PA Unavailable Unavailable DOROTHY, L NORMA PA Unavailable Unavailable DOROTHY, L NORMA PA Unavailable Unavailable DOROTHY, L NORMA PA Unavailable Unavailable DOROTHY, L NORMA PA Unavailable Unavailable DOROTHY, L NORMA PA Unavailable [facility] Unavailable WILBRETO OWENS Unavailable Unavailable Re-disclosure Warning The records that you are about to access may contain information from federally-assisted alcohol or drug abuse programs. If such information is present, then the following federally mandated warning applies: This information has been disclosed to you from records protected by federal confidentiality rules (42 CFR part 2). The federal rules prohibit you from making any further disclosure of this information unless further disclosure is expressly permitted by the written consent of the person to whom it pertains or as otherwise permitted by 42 CFR part 2. A general authorization for the release of medical or other information is NOT sufficient for this purpose. The Federal rules restrict any use of the information to criminally investigate or prosecute any alcohol or drug abuse patient.The records that you are about to access may contain highly sensitive health information, the redisclosure of which is protected by Article 27-F of the [facility] Public Health law. If you continue you may have access to information: Regarding HIV / AIDS; Provided by facilities licensed or operated by the [facility] Office of Mental Health; or Provided by the [facility] Office for People With Developmental Disabilities. If such information is present, then the following [facility] mandated warning applies: This information has been disclosed to you from confidential records which are protected by state law. State law prohibits you from making any further disclosure of this information without the specific written consent of the person to whom it pertains, or as otherwise permitted by law. Any unauthorized further disclosure in violation of state law may result in a fine or alf sentence or both. A general authorization for the release of medical or other information is NOT sufficient authorization for further disc losure. Family History Family Member Name Family Member Gender Family Member Status Date o f Status Description Data Source(s) Unknown Male Problem MEDENT ([facility]) Encounters Encounter Providers Location Date Indications Data Source(s ) Inpatient Attender: TODD ELKINS DOAttender : TODD ELKINS DOAttender: AMADO BAXTER MDAttender: AMADO BAXTER MDAdmitter: AMADO BAXTER MD [id number] 08/31/2020 03:32:00 AM [facility] - 09/04/2020 01:30:00 PM [facility] ospital Patient discharged. Emergency Attender: NORMA MILLER EMERGENCY ROOM-ER 03:59:00 PM [facility] - 08/30/2020 11:50:00 PM [facility] Patient discharged. Outpatient Attender: NORMA DE LA CRUZ PAConsultant: [facility] [id number] 08/30/2020 03:35:00 PM [facility] Outpatient Attender: ESTHER PACHECO . [id number] 07/06/2020 02:28:33 PM [facility] Outpatient Attender: EDITA JASMINE PAConsultant: [facility] [id number] 07/06/2020 06:41:00 AM [facility] Inpatient Attender: Katarzyna Liuder: KASSIE BROOKS MDAttender: ALINA NORMAN MDAdmitter: KASSIE GOLDJUDSON MDReferrer: ALINA NORMAN MD [id number] 07/06/2020 12:00:00 AM EST - 07/10/2020 04:00:00 PM ES T Noninfective gastroenteritis and colitis, unspecified [facility] Noninfective gastroenteritis and colitis , unspecified Patient discharged. Emergency Attender: EDITA MILLER EMERGENCY ROOM-ER 07/05/2020 08:45:00 PM EST - 07/06/2020 12:35:00 AM [facility] Patient discharged. Outpatient Attender: ADDISON JOY 08/09/2019 01:11:00 PM ES T [facility] [address] [facility] 08/09/2019 12:00:00 AM EST eCW1 ([facility]) [facility] 08/03/2019 12:00:00 AM EST eCW1 ([facility]) [facility] 08/02/2019 12:00:00 AM EST eCW1 ([facility]) [facility] 08/02/2019 12:00:00 AM EST eCW1 ([facility]) [facility] 08/02/2019 12:00:00 AM EST eCW1 ([facility]) [facility] C EN[facility] 07/28/2019 12:00:00 AM EST eCW1 ([facility]) Emergency Attender: EDITA Wintererrer: ANNE-MARIE MCDERMOTT, MSN 07/24/2019 05:33:00 PM EST - 07/24/2019 06:15:00 PM [facility] Patient discharged. Outpatient Attender: EDITA JASMINE PAConsultant: [facility] [id number] 07/21/2019 03:15:00 PM [facility] Emergency Attender: EDITA Valentiner: Damaso MCDERMOTT, MSN EMERGENCY ROOM-ER 07/21/2019 02:23:00 PM EST - 07/21/2019 03:58:00 PM [facility] Patient discharged. Outpatient Attender: JACOB PEDERSENConsul [facility] [id number] 07/01/2019 11:00:00 AM EDT [facility] Outpatient Attender: JACOB PEDERSEN 07/01/2019 1 0:52:00 AM [facility] Outpatient Attender: ADDISON JOY 06/28/2019 12:50:00 PM [facility] Outpatient Attender: JACOB PEDERSEN 05/11/2019 0 1:56:00 PM [facility] Outpatient Attender: ADDISON JOY 05/10/2019 01:15:00 PM [facility] Emergency Attender: UCHE Wintererrer : JACOB PEDERSEN EMERGENCY ROOM-ER 04/21/2019 09:35:00 AM EDT - 04/21/2019 02:56:00 PM [facility] Patient discharged. Outpatient Attender: ADDISON JOY 03/29/2019 09:12:00 AM [facility] Outpatient Attender: ANNE-MARIE MCDERMOTT MSNReferr er: ANNE-MARIE MCDERMOTT, JACOB 03/19/2019 09:00:00 AM [facility] Outpatient Attender: ANNE-MARIE MCDERMOTT MSNReferr er: JACOB PEDERSEN EMERGENCY ROOM-[facility] 03/18/2019 01:09:00 PM EDT - 03/18/2019 01:09:00 PM [facility] Outpatient Attender: MIKA LUNDCReferrer: JACOB OTTO EMERGENCY ROOM-LAB REF 03/05/2019 04:18:00 PM EDT - 03/05/2019 04:18:00 PM [facility] Outpatient Attender: MIKA HILL 03/05/2019 02:50:00 PM [facility] Emergency Attender: EDITA GALLARDOeferrer: JACOB MATT EMERGENCY ROOM-ER 03/03/2019 05:24:00 PM EDT - 03/03/2019 05:50:00 PM [facility] Emergency Attender: EDITA GALLARDOeferrer: JACOB MATT EMERGENCY ROOM-ER 03/02/2019 06:19:00 PM EDT - 03/02/2019 08:33:00 PM [facility] Outpatient Attender: JACOB PEDERSEN 02/05/2019 0 2:40:00 PM [facility] Outpatient Attender: Whitney Alicea NP 12/11/2018 02:30:00 P [facility] Outpatient Attender: Whitney Alicea NP 11/13/2018 02:20:00 [facility] Emergency Attender: YOSELIN OWENSReferrer: JACOB LEHMAN EMERGENCY ROOM-ER 10/27/2018 12:47:00 PM [facility] - 10/27/2018 10:50:00 PM [facility] Outpatient Attender: Whitney Alicea NP 10/16/2018 07:53:00 A [facility] Outpatient Attender: ANNE-MARIE MCDERMOTT MSNConsul tant: [facility] [id number] 08/04/2018 09:30:00 AM [facility] Outpatient Attender: GRETA OMALLEY MDReferrer: ANNE-MARIE MCDERMOTT, MSN 03/24/2018 01:00:00 PM EDT - 03/24/2018 01:00:00 PM [facility] Outpatient Attender: Rayo Segura MDReferrer: JACOB MARTINEZ 12/16/2017 07:42:00 AM EDT - 12/16/2017 07:42:00 AM [facility] Emergency Attender: SONAM Wintererrer: JACOB LEHMAN EMERGENCY ROOM-ER 04/30/2017 11:36:00 AM EDT - 04/30/2017 03:25:00 PM [facility] Outpatient Attender: JACOB PEDESRENReferr er: JACOB PEDERSEN EMERGENCY ROOM-ULTRA 04/02/2017 08:14:00 AM EDT - 04/02/2017 08:14:00 AM [facility] Outpatient Attender: Rayo Segura MD 11/05/2016 11:12: 00 AM [facility] Emergency Attender: Kalia Stephens EMERGENCY ROOM-ER 11/01 04:58:00 PM EDT - 11/28/2014 05:50:00 PM [facility] Emergency Attender: FREDI MILLER 10:23:00 AM EDT - 02/12/2014 11:25:00 AM [facility] Medications Medication Brand Name Start Date Product Form Dose Route Admi nistrative Instructions Pharmacy Instructions Status Indications Reaction Description Data Source(s) Alprazolam 0.25 MG Oral Tablet alprazolam (XANAX) tabl et 0.5 mg alprazolam (XANAX) tablet 0.5 mg 07/10/2020 09:30:00 AM EST 0.5 mg Oral completed 0.5 mg, Oral, Once, Fri07/10/20 at 0930, For 1 dose [facility] Medication administered onsite 0.4 ML Enoxaparin sodium 100 MG/ML Prefi lled Syringe enoxaparin sodium (LOVENOX) injection 40 mg enoxaparin sodium (LOVENOX) injection 40 mg 07/10/2020 09:00:00 AM EST 40 mg Subcutaneous active 40 mg, Subcutaneous, Daily Standard, First dose on Fri07/10/20 at 0900, For 30 days [facility] Medication administered onsite potassium phosphate 155 MG / Sodium Phos phate, Dibasic 852 MG / Sodium Phosphate, Monobasic 130 MG Oral Tablet phosphorus (K PHOS NEUTRAL) tablet 500 mg phosphorus (K PHOS NEUTRAL) tablet 500 mg 07/10/2020 09:00:00 AM EST 500 mg Oral active 500 mg, Or al, Daily Standard, First dose (after last modification) on Fri07/10/20 at 0900, For 2 days
Each 250 mg tablet contains: elemental phosphorous 250 mg (8 mmol), sodium 298 mg (12.9 mEq), and potassium 45 mg (1.1 mEq)
[facility] Medication administered onsite magnesium sulfate in dextrose 5 % infusion (premix) 1 g [id number] 07/10/2020 08:00:00 AM EST 1 g Intravenous completed 1 g, Intravenous, Administer over 60 Minutes, Once, Fri07/10/20 at 0800, For 1 dose [facility] Medication administered onsite potassium phosphate 155 MG / Sodium Phos phate, Dibasic 852 MG / Sodium Phosphate, Monobasic 130 MG Oral Tablet phosphorus (K PHOS NEUTRAL) tablet 500 mg phosphorus (K PHOS NEUTRAL) tablet 500 mg 07/10/2020 05:30:00 AM EST 500 mg Oral completed 500 mg, Or al, Once, Fri07/10/20 at 0530, For 1 dose
Each 250 mg tablet contains: elemental phosphorous 250 mg (8 mmol), sodium 298 mg (12.9 mEq), and potassium 45 mg (1.1 mEq)
[facility] Medication administered onsite potassium phosphate 155 MG / Sodium Phos phate, Dibasic 852 MG / Sodium Phosphate, Monobasic 130 MG Oral Tablet K Phos Miner-Sod Phos Di & Miner 155-852-130 MG Oral Tablet (K PHOS NEUTRAL) K Phos Miner-Sod Phos Di & Miner 155-852-130 MG Oral Tablet (K PHOS NEUTRAL) 07/10/2020 12:00:00 AM EST 250 mg Oral active Take 1 tablet by juliann th Two Times Daily for 7 days [facility] Magnesium Oxide 400 MG Oral Tablet Magne sium Oxide 400 (241.3 Mg) MG Oral Tablet (MAG-OX) Magnesium Oxide 400 (241.3 Mg) MG Oral Tablet (MAG-OX) 07/10/2020 12:00:00 AM EST 400 mg Oral active Take 1 tablet by mouth daily for 7 days [facility] pantoprazole 40 MG Delayed Release Oral Tablet Pantoprazole Sodium 40 MG Oral Tablet Delayed Release (PROTONIX) Pantoprazole Sodium 40 MG Oral Tablet De layed Release (PROTONIX) 07/10/2020 12:00:00 AM EST 40 mg Oral active Take 1 tablet by mouth Two Times Daily [facility] Hydroxyzine Hydrochloride 25 MG Oral Tab let hydrOXYzine HCl 25 MG Oral Tablet (ATARAX) hydrOXYzine HCl 25 MG Oral Tablet (ATARAX) 07/10/2020 12:00: 00 AM EST 25 mg Oral active Take 1 tablet by mouth every 6 (six) hours as needed for Anxiety [facility] maalox/lidocaine/diphenhydrAMINE 1:1:1 SWISH & SWAL oral [employer] 07/10/2020 12:00:00 AM EST 10 mL Swish & Spit active Swish and spit 10 mLs Four times daily as needed (throat pain)Pharmacy compound: Maalox, lidocaine viscous 2 %, Benadryl 12.5 mg/5 mL [facility] Folic Acid 1 MG Oral Tablet Folic Acid 1 MG Oral Table t (FOLVITE) Folic Acid 1 MG Oral Tablet (FOLVITE) 07/10/2020 12:00:00 AM EST 1 mg Oral active Take 1 tablet by mouth daily [facility] Thiamine 100 MG Oral Tablet Thiamine HCl 100 MG Oral T ablet (B-1) Thiamine HCl 100 MG Oral Tablet (B-1) 07/10/2020 12:00:00 AM EST 100 mg Oral active Take [facility] Oral Tablet Lisinopril 10 MG Oral Tab let (ZESTRIL) Lisinopril 10 MG Oral Tablet (ZESTRIL) 07/10/2020 12:00:00 AM EST 10 mg Oral active Take 1 tablet by mouth daily [facility] vancomycin 50 mg/mL PO SOLN oral solution [id number] 07/10/2020 12:00:00 AM EST 125 mg Oral active Take 2.5 mLs by mouth every 6 (six) hours for 7 days [facility] Aspirin 81 MG Delayed Release Oral Table t Aspirin 81 MG Oral Tablet Delayed Release Aspirin 81 MG Oral Tablet Delayed Release 07/10/2020 12:00:00 AM EST 81 mg Oral active Take 1 tablet by mouth reva mckeon [facility] pantoprazole 40 MG Delayed Release Oral Tablet pantoprazole (PROTONIX) EC tablet 40 mg pantoprazole (PROTONIX) EC tablet 40 mg 07/09/2020 09:00:[address] 40 mg Oral active 40 mg, Ora l, 2 Times Daily, First dose on 07/09/20 at 2100, For 30 days
Do not crush or chew
[facility] Medication administered onsite Monobasic potassium phosphate 0.0408 MEQ /ML Oral Solution potassium phosphate (monobasic) (K-PHOS ORIGINAL) tablet 500 mg potassium phosphate (monobasic) (K- PHOS ORIGINAL) tablet 500 mg 07/09/2020 09:00:00 PM EST 500 mg Oral completed 500 mg, Oral, Once, 07/09/20 at 2100, For 1 dose
Dissolve tablets in 6-8 oz of water; for best results, soak tablets in water for 2-5 minutes, then stir and give to patient.
Each 500 mg tablet contains: elemental phosphorous 114 mg and potassium 144 mg (3.7 mEq)
[facility] Medication administered onsite Alprazolam 0.25 MG Oral Tablet alprazolam (XANAX) tabl et 0.5 mg alprazolam (XANAX) tablet 0.5 mg 07/09/2020 03:15:00 PM EST 0.5 mg Oral completed 0.5 mg, Oral, Once, 07/09/20 at 1515, For 1 dose [facility] Medication administered onsite Hydroxyzine Hydrochloride 25 MG Oral Tablet hydrOXYzin e (ATARAX) tablet 25 mg hydrOXYzine (ATARAX) tablet 25 mg 07/09/2020 09:00:00 AM EST 25 mg Oral active 25 mg, Oral, Every 6 hours PRN, Anxiety, Starting 07/09/20 at 0900, For 48 hours [facility] Medication administered onsite 50 ML Magnesium Sulfate 40 MG/ML Injecti on magnesium sulfate infusion 2 g/50 mL (premix) magnesium sulfate infusion 2 g/50 mL (premix) 07/09/20 05:45:00 AM EST 2 g Intravenous completed 2 g, Intravenous, Administer over 60 Minutes, Once, 07/09/20 at 0545, For 1 dose [facility] Medication administered onsite potassium chloride 20 mEq in 100 mL IVPB (premix) [id number] 07/09/2020 05:00:00 AM EST 20 meq Intravenous completed 20 mEq, Intravenous, Administer over 60 Minutes, Every 1 hour, First dose on 07/09/20 at 0500, For 2 doses [facility] Medication administered onsite Diazepam 5 MG Oral Tablet diazePAM (VALIUM) tablet 10 mg diazePAM (VALIUM) tablet 10 mg 07/08/2020 11:00:00 PM EST 10 mg Oral compl eted 10 mg, Oral, Every 1 hour, First dose (after last modification) on 07/08/20 at 2300, For 4 doses
Maximum of 40 mg in 4 hour period. If patient is sleeping, do not wake them to administer Diazepam or to assess the CIWA score. Assess once patient awakens.
[facility] Medication administered onsite sodium phosphate infusion 12 mmol/100 mL (central line) (pre mix) 07/08/2020 06:30:00 PM EST 12 mmol Intravenous completed 12 mmol, Intravenous, at 25 mL/hr, Once, 07/08/20 at 1830, For 1 dose
For central line use only. Slower infusion rates (e.g. over 4 to 6 hours) are recommended in patients with renal impairment and/or less severe hypophosphatemia.
For central line use only.
[facility] Medication administered onsite potassium phosphate infusion 6 mmol/100 mL (premix) 07/08/2020 01:45:00 PM EST 6 mmol Intravenous completed 6 mmol, Intravenous, at 25 mL/hr, Once, 07/08/20 at 1345, For 1 dose
Slower infusion rates (e.g. over 4 hours) are recommended in patients with renal impairment and/or less severe hypophosphatemia. Product contains 8.8 mEq of potassium.
[facility] Medication administered onsite maalox/lidocaine/diphenhydrAMINE (RADIAT ION MIXTURE) 1:1:1 oral suspension 10 mL 07/08/2020 09:45:00 AM EST 10 mL Swish & Spit acti ve 10 mL, Swish & Spit, Four Times Daily-PRN, throat pain, Starting 07/08/20 at 0945, For 120 hours [facility] Medication administered onsite Hydroxyzine Hydrochloride 25 MG Oral Tablet hydrOXYzin e (ATARAX) tablet 25 mg hydrOXYzine (ATARAX) tablet 25 mg 07/08/2020 09:36:17 AM EST 25 mg Oral aborted 25 mg, Oral, Every 6 hours PRN, Anxiety, Starting 07/08/20 at 0936, For 697 hours [facility] Medication administered onsite 24 HR Nicotine 0.292 MG/HR Transdermal P atch nicotine (NICODERM CQ) 7 MG/24HR 1 patch nicotine (NICODERM CQ) 7 MG/24HR 1 patch 07/08/2020 09:00:00 AM EST 1 {patch} Transdermal active 1 patch, Transdermal, Administer over 24 Hours, Daily Standard, First dose on 07/08/20 at 0900, For 30 days [facility] Medication administered onsite potassium phosphate 155 MG / Sodium Phos phate, Dibasic 852 MG / Sodium Phosphate, Monobasic 130 MG Oral Tablet phosphorus (K PHOS NEUTRAL) tablet 500 mg phosphorus (K PHOS NEUTRAL) tablet 500 mg 07/08/2020 09:00:00 AM EST 500 mg Oral aborted 500 mg, Or al, 2 Times Daily, First dose (after last modification) on 07/08/20 at 0900, For 58 doses
Each 250 mg tablet contains: elemental phosphorous 250 mg (8 mmol), sodium 298 mg (12.9 mEq), and potassium 45 mg (1.1 mEq)
[facility] Medication administered onsite 1 ML Lorazepam 2 MG/ML Injection LORazepam (ATIVAN) in jection 0.5 mg LORazepam (ATIVAN) injection 0.5 mg 07/08/2020 06:15:00 AM EST 0.5 mg Intrave nous completed 0.5 mg, Intravenous, Once, Sat 1 09/07/19 at 0615, For 1 dose [facility] Medication administered onsite potassium phosphate infusion 6 mmol/100 mL (premix) 07/08/2020 04:00:00 AM EST 6 mmol Intravenous completed 6 mmol, Intravenous, at 25 mL/hr, Once, 07/08/20 at 0400, For 1 dose
Slower infusion rates (e.g. over 4 hours) are recommended in patients with renal impairment and/or less severe hypophosphatemia. Product contains 8.8 mEq of potassium.
[facility] Medication administered onsite sodium phosphate infusion 6 mmol/100 mL (premix) 07/07 09:30:00 PM EST 6 mmol Intravenous completed 6 mmol, Intravenous, at 25 mL/hr, Once, 07/07/20 at 2130, For 1 dose
Slower infusion rate (e.g. over 4 to 6 hours) are recommended in patients with renal impairment and/or less severe hypophosp hatemia.
[facility] Medication administered onsite Nicotine 2 MG Chewing Gum nicotine polacrilex (NICORET TE) gum 2 mg nicotine polacrilex (NICORETTE) gum 2 mg 07/07/2020 03:18:13 PM EST 2 mg O ral active 2 mg, Oral, Every 2 hours PRN, Smoking cessation, Starting Fri07/07/20 at 1518, For 30 days [facility] Medication administered onsite maalox/lidocaine/diphenhydrAMINE (RADIAT ION MIXTURE) 1:1:1 oral suspension 10 mL 07/07/2020 03:17:47 PM EST 10 mL Swish & Spit abor tania 10 mL, Swish & Spit, 2 Times Daily PRN, throat pain, Starting Fri07/07/20 at 1517, For 30 days [facility] Medication administered onsite Thiamine 100 MG Oral Tablet thiamine (B-1) tablet 100 mg thiamine (B-1) tablet 100 mg 07/07/2020 02:45:00 PM EST 100 mg Oral active 100 mg, Oral, Daily Standard, First dose on Fri07/07/20 at 1445, For 30 days [facility] Medication administered onsite Folic Acid 1 MG Oral Tablet folic acid (FOLVITE) table t 1 mg folic acid (FOLVITE) tablet 1 mg 07/07/2020 02:45:00 PM EST 1 mg Oral active 1 mg, Oral, Daily Standard, First dose on Fri07/07/20 at 1445, For 30 days [facility] Medication administered onsite potassium phosphate 155 MG / Sodium Phos phate, Dibasic 852 MG / Sodium Phosphate, Monobasic 130 MG Oral Tablet phosphorus (K PHOS NEUTRAL) tablet 250 mg phosphorus (K PHOS NEUTRAL) tablet 250 mg 07/07/2020 02:45:00 PM EST 250 mg Oral aborted 250 mg, Or al, 2 Times Daily, First dose on Fri07/07/20 at 1445, For 30 days
Each 250 mg tablet contains: elemental phosphorous 250 mg (8 mmol), sodium 298 mg (12.9 mEq), and potassium 45 mg (1.1 mEq)
[facility] Medication administered onsite vancomycin (VANCOCIN) 50 mg/mL oral solution 125 mg [id number] 07/07/2020 11:00:00 AM EST 125 mg Oral active 125 mg, Oral, Every 6 hours, First dose on Fri07/07/20 at 1100, For 10 days
Indicated for severe C. difficile infection, defined as: WBC > 15,000 SCr > 1.5 times the premorbid level Hypotension or shock Ileus Megacolon
[facility] Medication administered onsite Hydroxyzine Hydrochloride 25 MG Oral Tablet hydrOXYzin e (ATARAX) tablet 25 mg hydrOXYzine (ATARAX) tablet 25 mg 07/07/2020 10:56:18 AM EST 25 mg Oral aborted 25 mg, Oral, Every 6 hours PRN, Itching, Starting Fri07/07/20 at 1056, For 30 days [facility] Medication administered onsite Atenolol 25 MG Oral Tablet atenolol (TENORMIN) tablet 100 mg atenolol (TENORMIN) tablet 100 mg 07/07/2020 09:00:00 AM EST 100 mg Oral abor tania 100 mg, Oral, Daily Standard, First dose on Fri07/07/20 at 0900, For 30 days
Check vital signs before administering
[facility] Medication administered onsite Lisinopril 10 MG Oral Tablet lisinopril (ZESTRIL) tabl et 10 mg lisinopril (ZESTRIL) tablet 10 mg 07/07/2020 09:00:00 AM EST 10 mg Oral active 10 mg, Oral, Daily Standard, First dose on Fri07/07/20 at 0900, For 30 days [facility] Medication administered onsite pantoprazole 4 MG/ML Injectable Solution pantoprazole (PROTONIX) injection 40 mg pantoprazole (PROTONIX) injection 40 mg 07/07/2020 09:00:00 AM EST 40 mg Intravenous aborted 40 mg, Intrav enous, 2 Times Daily, First dose on Fri07/07/20 at 0900, For 30 days [facility] Medication administered onsite Oxycodone Hydrochloride 5 MG Oral Tablet oxyCODONE (ROXICODONE) immediate release tablet 5 mg oxyCODONE (ROXICODONE) immediate release tablet 5 mg 07/07/2020 08:33:14 AM EST 5 mg Oral completed 5 mg, Oral, Every 4 hours PRN, Moderate Pain (Pain Scale Score 4-6), Starting Fri07/07/20 at 0833, For 3 days
Oxycodone immediate release is limited to 10 mg per dose. Higher doses ( only) require Pain Service consultation and approval.
[facility] Medication administered onsite Oxycodone Hydrochloride 5 MG Oral Tablet oxyCODONE (ROXICODONE) immediate release tablet 10 mg oxyCODONE (ROXICODONE) immediate release tablet 10 mg 07/07/2020 08:33:02 AM EST 10 mg Oral aborted 10 mg, Oral, Every 6 hours PRN, Severe Pain (Pain Scale Score 7-10), Starting Fri07/07/20 at 0833, For 49 hours
Oxycodone immediate release is limited to 10 mg per dose. Higher doses ( only) require Pain Service consultation and approval.
[facility] Medication administered onsite buspirone hydrochloride 10 MG Oral Tablet busPIRone (B USPAR) tablet 10 mg busPIRone (BUSPAR) tablet 10 mg 07/07/2020 04:00:00 AM EST 10 mg O ral completed 10 mg, Oral, Once, Fri07/07/20 a t 0400, For 1 dose [facility] Medication administered onsite Famotidine 20 MG Oral Tablet famotidine (PEPCID) table t 20 mg famotidine (PEPCID) tablet 20 mg 07/07/2020 03:15:00 AM EST 20 mg Oral completed 20 mg, Oral, Once, Fri07/07/20 at 0315, For 1 dose [facility] Medication administered onsite Hydroxyzine Hydrochloride 10 MG Oral Tablet hydrOXYzin e (ATARAX) tablet 25 mg hydrOXYzine (ATARAX) tablet 25 mg 07/07/2020 03:00:00 AM EST 25 mg Oral completed 25 mg, Oral, Once, Fri07/07/20 a t 0300, For 1 dose [facility] Medication administered onsite Lactulose 667 MG/ML Oral Solution lactulose (CHRONULAC ) solution 30 mL lactulose (CHRONULAC) solution 30 mL 07/06/2020 05:00:00 PM EST 30 mL Oral aborted 30 mL, Oral, Three Times Da fawn Standard, First dose on Fri07/06/20 at 1700, For 30 days
Titrate to 2-3 bowel movements daily
[facility] Medication administered onsite thiamine (B-1) 500 mg in sodium chloride 0.9 % 50 mL IVPB 07/06/2020 05:00:00 PM EST 500 mg Intravenous aborted 500 mg, Intravenous, Administer over 30 Minutes, Three Times Daily Standard, First dose on Keily 07/06/20 at 1700, For 5 days [facility] Medication administered onsite Benzocaine 15 MG / Menthol 3.6 MG Oral L ozenge benzocaine-menthol (CEPACOL) 15- 3.6 MG per lozenge 1 lozenge benzocaine-menthol (CEPACOL) 15-3.6 MG p er lozenge 1 lozenge 07/06/2020 04:12:51 PM EST 1 {lozenge} Mouth/Throat active 1 lozenge, Mouth/Throat, Every 2 hours PRN, Sore Throat, Starting Keily 07/06/20 at 1612, For 30 days [facility] Medication administered onsite Ceftriaxone 1000 MG Injection cefTRIAXone (ROCEPHIN) i nfusion 1 g (premix) cefTRIAXone (ROCEPHIN) infusion 1 g (premix) 07/06/2020 03:15:00 PM EST 1 g Intravenous aborted 1 g, Intraven ous, at 100 mL/hr, Every 24 hours, First dose on Keily 07/06/20 at 1515, For 3 days
Discouraged Uses: Empiric treatment of post-surgical meningitis (ceftazidime preferred)
[facility] Medication administered onsite fentaNYL (SUBLIMAZE) (PF) injection 50 mcg [id number] 07/06/2020 02:30:00 PM EST 50 ug Intravenous completed 50 mcg, Intravenous, Once, Keily 07/06/20 at 1430, For 1 dose [facility] Medication administered onsite fentaNYL (SUBLIMAZE) (PF) injection 50 mcg [id number] 07/06/2020 02:30:00 PM EST 50 ug Intravenous completed 50 mcg, Intravenous, Once, Keily 07/06/20 at 1430, For 1 dose [facility] Medication administered onsite 2 ML Midazolam 1 MG/ML Injection midazolam (PF) (VERSE D) injection midazolam (PF) (VERSED) injection 07/06/2020 01:57:00 PM EST completed Code/Trauma Medication, Starting Keily 07/06/20 at 1357 [facility] Medication administered onsite 2 ML Midazolam 1 MG/ML Injection midazolam (PF) (VERSE D) injection midazolam (PF) (VERSED) injection 07/06/2020 01:55:00 PM EST completed Code/Trauma Medication, Starting Keily 07/06/20 at 1355 [facility] Medication administered onsite fentaNYL (SUBLIMAZE) (PF) injection [id number] 07/06/2020 01:52:00 PM EST completed Code/Trauma Medicati on, Starting Keily 07/06/20 at 1352 [facility] Medication administered onsite 2 ML Midazolam 1 MG/ML Injection midazolam (PF) (VERSE D) injection midazolam (PF) (VERSED) injection 07/06/2020 01:52:00 PM EST completed Code/Trauma Medication, Starting Keily 07/06/20 at 1352 [facility] Medication administered onsite fentaNYL (SUBLIMAZE) 100 MCG/2ML (PF) injection [id number] 07/06/2020 01:37:47 PM EST completed Starti ng Keily 07/06/20 at 1337, For 1 dose
Ryan Simpson : davian override
[facility] Medication administered onsite 1 ML Lorazepam 2 MG/ML Injection LORazepam (ATIVAN) in jection 2 mg LORazepam (ATIVAN) injection 2 mg 07/06/2020 10:15:00 AM EST 2 mg Intraveno us completed 2 mg, Intravenous, Once, Keily 07/06/20 at 1015, For 1 dose [facility] Medication administered onsite ondansetron (ZOFRAN) injection 4 mg [id number] 07/06/2020 10:04:5 4 AM EST 4 mg Intravenous active 4 mg, In travenous, Every 8 hours PRN, Nausea, Vomiting, Starting Keily 07/06/20 at 1004, For 30 days [facility] Medication administered onsite Oxycodone Hydrochloride 5 MG Oral Tablet oxyCODONE (ROXICODONE) immediate release tablet 10 mg oxyCODONE (ROXICODONE) immediate release tablet 10 mg 07/06/2020 10:00:41 AM EST 10 mg Oral aborted 10 mg, Oral, Every 6 hours PRN, Moderate Pain (Pain Scale Score 4-6), Starting Keily 07/06/20 at 1000, For 3 days
Oxycodone immediate release is limited to 10 mg per dose. Higher doses ( only) require Pain Service consultation and approval.
[facility] Medication administered onsite heparin (porcine) 5000 UNIT/ML injection 5,000 Units [id number] 07/06/2020 09:00:00 AM EST 5000 U Subcutaneous aborted 5,000 Units, Subcutaneous, 2 Times Daily, First dose on Keily 07/06/20 at 0900, For 30 days [facility] Medication administered onsite Piperacillin 3000 MG / tazobactam 375 MG Injection piperacillin-tazobactam (ZOSYN) IVPB 3.375 g (premix) piperacillin-tazobactam (ZOSYN) IVPB 3.3 75 g (premix) 07/06/2020 08:00:00 AM EST 3.375 g Intravenous abo rted 3.375 g, Intravenous, Administer over 4 Hours, Every 8 hours, First dose on Keily 07/06/20 at 0800, For 3 days
This specific formulation of piperacillin- tazobactam is compatible with Lactated Ringers.
[facility] Medication administered onsite thiamine (B-1) 500 mg in sodium chloride 0.9 % 50 mL IVPB 07/06/2020 08:00:00 AM EST 500 mg Intravenous aborted 500 mg, Intravenous, Administer over 30 Minutes, Every 24 hours, First dose on Keily 07/06/20 at 0800, For 4 days [facility] Medication administered onsite lactated ringers bolus 1,000 mL [id number] 07/06/2020 06:45:00 AM EST 1000 mL Intravenous completed 1,000 mL , Intravenous, Once, Keily 07/06/20 at 0645, For 1 dose [facility] Medication administered onsite potassium chloride (K-DUR) dissolvable tablet 40 mEq [id number] 07/06/2020 06:45:00 AM EST 40 meq Oral completed 40 mEq, Oral, Once, Keily 07/06/20 at 0645, For 1 dose
May be dissolved in water for patients with a G-Tube or unable to swallow. If concern for clogging G-Tube, may contact Pharmacy to switch formulation to a powder packet.
[facility] Medication administered onsite Oxycodone Hydrochloride 5 MG Oral Tablet oxyCODONE (ROXICODONE) immediate release tablet 10 mg oxyCODONE (ROXICODONE) immediate release tablet 10 mg 07/06/2020 04:15:00 AM EST 10 mg Oral completed 10 mg, Oral, Once, Keily 07/06/20 at 0415, For 1 dose
Oxycodone immediate release is limited to 10 mg per dose. Higher doses ( only) require Pain Service consultation and approval.
[facility] Medication administered onsite Hydroxyzine Hydrochloride 10 MG Oral Tablet hydrOXYzin e (ATARAX) tablet 25 mg hydrOXYzine (ATARAX) tablet 25 mg 07/06/2020 04:06:13 AM EST 25 mg Oral aborted 25 mg, Oral, Every 6 hours PRN, Anxiety, Starting Keily 07/06/20 at 0406, For 30 days [facility] Medication administered onsite Calcium Chloride 0.0014 MEQ/ML / Potassi um Chloride 0.004 MEQ/ML / Sodium Chloride 0.103 MEQ/ML / Sodium Lactate 0.028 MEQ/ML Injectable Solution lactated ringers infusion lactated ringers infusion 07/06/2020 03:45:00 AM EST 75 mL/h Intravenous aborted at 75 mL/hr, Intravenous, Continuous, Starting Keily 07/06/20 at 0345, For 3 days [facility] Medication administered onsite lactated ringers bolus 1,000 mL [id number] 07/06/2020 03:30:00 AM EST 1000 mL Intravenous completed 1,000 mL , Intravenous, Once, Keily 07/06/20 at 0330, For 1 dose [facility] Medication administered onsite octreotide (SANDOSTATIN) 5 mcg/mL in sodium chloride 0.9 % 2 50 mL infusion 07/06/2020 03:15:00 AM EST 50 ug/h Intravenous aborted 50 mcg/hr (10 mL/hr), Intravenous, at 10 mL/hr, Continuous, Starting Keily 07/06/20 at 0315, For 30 days [facility] Medication administered onsite albumin human (ALBUMINAR) 25 % bottle 100 g [id number] 07/06/2020 03:15:00 AM EST 100 g Intravenous completed 10 0 g, Intravenous, at 200 mL/hr, Once, Keily 07/06/20 at 0315, For 1 dose [facility] Medication administered onsite pantoprazole (PROTONIX) 0.4 mg/mL in sodium chloride 0.9 % 2 50 mL infusion 07/06/2020 03:15:00 AM EST 8 mg/h Intravenous aborted 8 mg/hr (20 mL/hr), Intravenous, at 20 mL/hr, Continuous, Starting Keily 07/06/20 at 0315, For 30 days
Indication: Active GI bleed [facility] Medication administered onsite 50 mg 08/09/2019 12:00:00 AM EST tablet 90 TAKE TWO TO THREE TABLETS BY MOUTH AT BEDTIME TAKE TWO TO THREE TABLETS BY MOUTH AT BEDTIME SOLD: 08/09/20 19 [facility] 50 mg 08/09/2019 12:00:00 AM EST tablet 60 TAKE ONE TABLET BY MOUTH TWICE A DAY NEEDED FOR ANXIETY TAKE ONE TABLET BY MOUTH TWICE A DAY NEEDED FOR ANXIETY SOLD: 08/09/2019 [facility] 60 mg 08/09/2019 12:00:00 AM EST capsule,delayed release (DR/EC) 30 TAKE ONE CAPSULE BY MOUTH EVERY DAY TAKE ONE CAPSULE BY MOUTH EVERY DAY SOLD: 08/09/2019 [facility] buspirone hydrochloride 15 MG Oral Tablet BUSPIRONE HCL 08/09/2019 12:00:00 AM EST tablet 30 TAKE ONE TABLET BY MOUTH ARIEL TAKE ONE TABLET BY MOUTH EVERY DAY SOLD: 08/09/2019 [facility] 25 mg 08/04/2019 12:00:00 AM EST tablet 90 TAKE ONE TABLET BY MOUTH EVERY 8 HOURS NEEDED TAKE ONE TABLET BY MOUTH EVERY 8 HOURS NEEDED SOLD: 08/06/2019 [facility] 100 mg 08/03/2019 12:00:00 AM EST capsule 8 TAKE ONE CAPSULE BY MOUTH FOUR TIMES A DAY DIRECTED TAKE ONE CAPSULE BY MOUTH FOUR TIMES A DAY DIRECTED SOLD: 08/03/2019 [facility] 24 HR Bupropion Hydrochloride 150 MG Extended Release Oral T ablet BUPROPION HCL 07/28/2019 12:00:00 AM EST tablet extended release 24 hr 30 TAKE ONE TABLET BY MOUTH EVERY MORNING TAKE ONE TABLET BY MOUTH EVERY MORNING SOLD: 07/28/2019 [facility] 25 mg 07/25/2019 12:00:00 AM EST capsule 15 TAKE ONE CAPSULE BY MOUTH EVERY 8 HOURS NEEDED FOR PAIN TAKE ONE CAPSULE BY MOUTH EVERY 8 HOURS NEEDED FOR PAIN SOLD: 07/25/2019 [facility] 20 mg 07/24/2019 12:00:00 AM EST tablet 15 TAKE ONE TABLET BY MOUTH EVERY EVENING TAKE ONE TABLET BY MOUTH EVERY EVENING SOLD: 07/24/2019 [facility] 0.5 mg 07/24/2019 12:00:00 AM EST tablet 12 TAKE ONE TABLET BY MOUTH EVERY 8 HOURS NEEDED MAXIMUM DAILY DOSE = 3 TABLETS TAKE ONE TABLET BY MOUTH EVERY 8 HOURS NEEDED MAXIMUM DAILY DOSE = 3 TABLETS SOLD: 07/24/2019 [facility] 500 mg 07/22/2019 12:00:00 AM EST tablet 10 TAKE ONE TABLET BY MOUTH TWICE A DAY NEEDED FOR PAIN TAKE ONE TABLET BY MOUTH TWICE A DAY NEEDED FOR CARMENZA N SOLD: 07/22/2019 [facility] 4 mg 07/21/2019 12:00:00 AM EST tablet 15 TAKE ONE TABLET BY MOUTH EVERY 8 HOURS NEEDED TAKE ONE TABLET BY MOUTH EVERY 8 HOURS NEEDED SOLD: 07/21/2019 [facility] 10 mg 07/21/2019 12:00:00 AM EST tablet 15 TAKE ONE TABLET BY MOUTH EVERY 8 HOURS NEEDED FOR PAIN TAKE ONE TABLET BY MOUTH EVERY 8 HOURS A S NEEDED FOR PAIN SOLD: 07/21/2019 [facility] 500 mg 07/21/2019 12:00:00 AM EST tablet 10 TAKE ONE TABLET BY MOUTH TWICE A DAY DIRECTED TAKE ONE TABLET BY MOUTH TWICE A DAY DIRECTED SOLD: 07/21/2019 [facility] Capsaicin 1 MG/ML Topical Cream capsaicin (CAPZASIN HP ) 0.1 % topical cream capsaicin (CAPZASIN HP) 0.1 % topical cream 06/24/2019 12:00:00 AM EDT Topical aborted Apply topicall y Three times daily as needed (for pain)Can be used with lidocaine pain. [facility] Esomeprazole 20 MG Delayed Release Oral Capsule esomeprazole (NEXIUM) 20 MG capsule esomeprazole (NEXIUM) 20 MG capsule 20 mg Oral aborted Take 20 mg by mouth Two Times Daily [facility] Atenolol 100 MG Oral Tablet atenolol (TENORMIN) 100 MG tablet atenolol (TENORMIN) 100 MG tablet 100 mg Oral aborted Take 100 mg by mouth daily. [facility] Aspirin 325 MG Oral Tablet Aspirin 325 MG Oral Tablet 32 5 mg Oral aborted Take 325 mg by mouth daily [facility] Indomethacin (INDOCIN PO) Oral aborted Take by mouth. [facility] Hydroxyzine Hydrochloride 25 MG Oral Tablet hydrOXYzin e (ATARAX) 25 MG tablet hydrOXYzine (ATARAX) 25 MG tablet 25 mg Oral abor tania Take 25 mg by mouth Three times daily as needed for Itching. [facility] Lisinopril 10 MG Oral Tablet lisinopril (PRINIVIL,ZEST RIL) 10 MG tablet lisinopril (PRINIVIL,ZESTRIL) 10 MG tablet 10 mg Oral aborted Take 10 mg by mouth daily. [facility] Insurance Providers Payer name Policy type / Coverage type Policy ID Covered libertarian ID Covered libertarian's relationship to pandey Policy Pandey Plan Information [facility] [id number] SP [id number] [facility] [id number] S [id number] [facility] MEDICAID [id number] S [id number] [facility] MEDICAID [id number] S [id number] MEDICAID [id number] S [id number] [facility] MEDICAID [id number] S [id number] [facility] MEDICAID [id number] S [id number] [facility] MEDICAID [id number] S [id number] [facility] MEDICAID [id number] S [id number] [facility] COMMUNITY PLAN [facility] [id number] SP [id number] [facility] COMMUNITY PLAN [facility] [id number] SP [id number] [facility] COMMUNITY PLAN [facility] [id number] SP [id number] MEDICAID M [id number] Self [id number] [facility] [id number] Self [id number] [facility] I [id number] Self [id number] [facility] I [id number] Self [id number] MEDICAID M [id number] Self [id number] SELF PAY UNAVAILABLE S [place] [facility] [place] [id number] S [id number] [facility] MEDICAID [id number] S [id number] [facility] [id number] S [id number] [facility] COMMUNITY PLAN [facility] [id number] SP [id number] SELF PAY ONLY [id number] SP [id number] [facility] [id number] S [id number] [facility]-Med[facility] [id number] [facility]-Medicaid [id number] ANSI-Medicaid [id number] ANSI-Medicaid [id number] ANSI-Medicaid [id number] ANSI-Medicaid [id number] ANSI-Medicaid [id number] ANSI-Medicaid [id number] ANSI-Medicaid [id number] ANSI-Medicaid [id number] ANSI-Medicaid [id number] ANSI-Medicaid [id number] ANSI-Medicaid [id number] ANSI-Medicaid [id number] ANSI-Medicaid [id number] ANSI-Medicaid [id number] ANSI-Medicaid [id number] ANSI-Medicaid [id number] ANSI-Medicaid [id number] ANSI-Medicaid [id number] ANSI-Medicaid [id number] ANSI-Medicaid [id number] ANSI-Medicaid [id number] ANSI-Medicaid [id number] ANSI-Medicaid [id number] ANSI-Medicaid [id number] ANSI-Medicaid [id number] ANSI-Medicaid [id number] ANSI-Medicaid [id number] ANSI-Medicaid [id number] ANSI-Medicaid [id number] ANSI-Medicaid [id number] ANSI-Medicaid [id number] ANSI-Medicaid [id number] ANSI-Medicaid [id number] ANSI-Medicaid [id number] ANSI-Medicaid [id number] ANSI-Medicaid [id number] [facility] COMMUNITY [facility] [id number] SP [id number] [facility] Medicaid Medicaid [id number] Self [id number] [facility] [id number] S [id number] MEDICAID [id number] SP [id number] MEDICAID P [id number] S [id number] SELF PAY SP UNAVAILABLE UNAVAILA BLE MEDICAID [id number] S [id number] Problems, Conditions, and Diagnoses Code Display Name Description Problem Type Effective Dates Data Source(s) R65.20 Severe sepsis without septic shock SEVERE SEPSIS WITHOUT SEPTIC SHOCK Diagnosis 08/31/2020 03:32:00 AM [facility] R79.1 Abnormal coagulation profile ABNORMAL COAGULATION PROF ILE Diagnosis 08/31/2020 03:32:00 AM [facility] R07.9 Chest pain, unspecified CHEST PAIN, UNSPECIFIED Diagno sis 08/31/2020 03:32:00 AM [facility] F17.200 Nicotine dependence, unspecified, uncomp licated NICOTINE DEPENDENCE, UNSPECIFIED, UNCOMPLICATED Diagnosis 08/31/2020 03:32:00 AM [facility] E78.5 Hyperlipidemia, unspecified HYPERLIPIDEMIA, UNSPECIFIE D Diagnosis 08/31/2020 03:32:00 AM [facility] F32.9 Major depressive disorder, single episod e, unspecified MAJOR DEPRESSIVE DISORDER, SINGLE EPISODE, UNSPECI Diagnosis 08/31/2020 03:32:00 AM [facility] I10 Essential (primary) hypertension ESSENTIAL (PRIMARY) H YPERTENSION Diagnosis 08/31/2020 03:32:00 AM [facility] F10.10 Alcohol abuse, uncomplicated ALCOHOL ABUSE, UNCOMPLICA TANIA Diagnosis 08/31/2020 03:32:00 AM [facility] B34.8 Other viral infections of unspecified si te OTHER VIRAL INFECTIONS OF UNSPECIFIED SITE Diagnosis 08/31/2020 03:32:00 AM [facility] N40.0 Benign prostatic hyperplasia without low er urinary tract symptoms BENIGN PROSTATIC HYPERPLASIA WITHOUT LOWER URINRY Diagnosis 08/31/2020 03:32: 00 AM [facility] K21.9 Gastro-esophageal reflux disease without esophagitis GASTRO-ESOPHAGEAL REFLUX DISEASE WITHOUT ESOPHAGIT Diagnosis 08/31/2020 03:32:00 AM [facility] E11.9 Type 2 diabetes mellitus without complic ations TYPE 2 DIABETES MELLITUS WITHOUT COMPLICATIONS Diagnosis 08/31/2020 03:32:00 AM [facility]ital J12.82 PNEUMONIA DUE TO CORONAVIRUS DISEASE 201 9 PNEUMONIA DUE TO CORONAVIRUS DISEASE 2019 Diagnosis 08/31/2020 03:32:00 AM [facility] D69.6 Thrombocytopenia, unspecified THROMBOCYTOPENIA, UNSPEC IFIED Diagnosis 08/31/2020 03:32:00 AM [facility] K74.60 Unspecified cirrhosis of liver UNSPECIFIED CIRRHOSIS O F LIVER Diagnosis 08/31/2020 03:32:00 AM [facility] U07.1 COVID-19 COVID-19 Diagnosis 08/31/2020 03:32:00 AM [facility] E87.2 Acidosis ACIDOSIS Diagnosis 08/31/2020 03:32:00 AM [facility] A41.9 Sepsis, unspecified organism SEPSIS, UNSPECIFIED ORGAN ISM Diagnosis 08/31/2020 03:32:00 AM [facility] Z86.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), and cerebral infarction without residual deficits PRSNL HX OF TIA (TIA), AND CEREB INFRC W /O RESID D Diagnosis 08/30/2020 03:59:00 PM [facility] Z79.899 Other care home (current) drug therapy O THER [employer] SPECIALIST (CURRENT) DRUG THERAPY Diagnosis 08/30/2020 03:59:00 PM [facility] F17.210 Nicotine dependence, cigarettes, uncompl icated NICOTINE DEPENDENCE, CIGARETTES, UNCOMPLICATED Diagnosis 08/30/2020 03:59:00 PM [facility] E11.9 Type 2 diabetes mellitus without complic ations TYPE 2 DIABETES MELLITUS WITHOUT COMPLICATIONS Diagnosis 08/30/2020 03[facility] B[facility]8 Other viral infections of unspecified si te OTHER VIRAL INFECTIONS OF UNSPECIFIED SITE Diagnosis 08/30/2020 03:59:00 PM [facility] J18.9 Pneumonia, unspecified organism PNEUMONIA, UNSPECIFIED ORGANISM Diagnosis 08/30/2020 03:59:00 PM [facility] U07.1 COVID-19 COVID-19 Diagnosis 08/30/2020 03:59:00 PM [facility] A41.9 Sepsis, unspecified organism SEPSIS, UNSPECIFIED ORGAN ISM Diagnosis 08/30/2020 03:59:00 PM [facility] R07.89 Other chest pain OTHER CHEST PAIN Diagnosis 08/30/2020 03 :59:00 PM [facility] K92.2 Gastrointestinal hemorrhage, unspecified Gastrointestinal hemorrhage, unspecified Diagnosis 07/09/2020 11:55:34 AM [facility] K52.9 Noninfective gastroenteritis and colitis , unspecified Noninfective gastroenteritis and colitis, unspecified Diagnosis 07/06/2020 03:03:00 AM [facility] Vomiting blood Vomiting blood Diagnosis 07/06/2020 03:03: 00 AM [facility] Z20.828 Contact with and (suspected) exposure to other viral communicable diseases CONTACT W AND EXPOSURE TO OTH VIRAL COMMUNICABLE D Diagnosis 07/05/2020 08:45:00 PM [facility] Z99.81 Dependence on supplemental oxygen DEPENDENCE ON SUPPLEMENTAL OXYGEN Diagnosis 07/05/2020 08:45:00 PM [facility] Z79.891 [facility] (current) use of opiate analge sic DETENTION (CURRENT) USE OF OPIATE ANALGESIC Diagnosis 07/05/2020 08:45:00 PM [facility] I95.1 Orthostatic hypotension ORTHOSTATIC HYPOTENSION Diagno sis 07/05/2020 08:45:00 PM [facility] N17.9 Acute kidney failure, unspecified ACUTE KIDNEY F AILURE, UNSPECIFIED Diagnosis 07/05/2020 08:45:00 PM [facility] K21.00 GASTRO-ESOPHAGEAL REFLUX DIS WITH ESOPHA GITIS, WIT GASTRO-ESOPHAGEAL REFLUX DIS WITH ESOPHAGITIS, WIT Diagnosis 07/05/2020 08:45:00 PM [facility] I85.10 Secondary esophageal varices without ble eding SECONDARY ESOPHAGEAL VARICES WITHOUT BLEEDING Diagnosis 07/05/2020 08:45:00 PM [facility] spital F10.20 Alcohol dependence, uncomplicated ALCOHOL DEPEND ENCE, UNCOMPLICATED Diagnosis 07/05/2020 08:45:00 PM [facility] E86.0 Dehydration DEHYDRATION Diagnosis 07/05/2020 08:45:00 PM [facility] K52.9 Noninfective gastroenteritis and colitis , unspecified NONINFECTIVE GASTROENTERITIS AND COLITIS, UNSPECIF Diagnosis 07/05/2020 08:45:00 PM [facility] R11.2 Nausea with vomiting, unspecified NAUSEA WITH VO MITING, UNSPECIFIED Diagnosis 07/05/2020 08:45:00 PM [facility] E86.9 Volume depletion, unspecified VOLUME DEPLETION, UNSPEC IFIED Diagnosis 07/05/2020 08:45:00 PM [facility] G89.29 Other chronic pain OTHER CHRONIC PAIN Diagnosis 05/2019 01:11:00 PM [facility] G47.9 Sleep disorder, unspecified SLEEP DISORDER, UNSPECIFIE D Diagnosis 08/09/2019 01:11:00 [facility] F10.10 Alcohol abuse, uncomplicated ALCOHOL ABUSE, UNCOMPLICA TANIA Diagnosis 08/09/2019 01:11:00 [facility] F17.200 Nicotine dependence, unspecified, uncomp licated NICOTINE DEPENDENCE, UNSPECIFIED, UNCOMPLICATED Diagnosis 08/09/2019 01:11:00 PM [facility] F33.1 Major depressive disorder, recurrent, mo derate MAJOR DEPRESSIVE DISORDER, RECURRENT, MODERATE Diagnosis 08/09/2019 01:11:00 PM [facility] K31.9 Disease of stomach and duodenum, unspeci fied DISEASE OF STOMACH AND DUODENUM, UNSPECIFIED Diagnosis 07/24/2019 05:33:00 PM [facility] F41.9 Anxiety disorder, unspecified ANXIETY DISORDER, UNSPEC IFIED Diagnosis 07/24/2019 05:33:00 PM [facility] Y92.[address] or not applicable UNSPECIFIED PLACE OR NOT APPLICABLE Diagnosis 07/21/2019 02:23:00 PM [facility] W00.0XXA Fall on same level due to ice and snow, initial encounter FALL ON SAME LEVEL DUE TO ICE AND SNOW, INITIAL EN Diagnosis 07/21/2019 02:23:00 PM [facility] 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 EMIC 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 DETENTION (CURRENT) USE OF ORAL HYPOGLYCEMIC DRUGS Diagnosis 07/21/2019 02:23:00 PM [facility] N30.01 Acute cystitis with hematuria ACUTE CYSTITIS WITH REBECA TURIA Diagnosis 07/21/2019 02:23:00 PM [facility] Y93.01 Activity, walking, marching and hiking A CTIVITY, WALKING, MARCHING AND HIKING Diagnosis 07/21/2019 02:23:00 PM [facility] Y99.8 Other external cause status OTHER EXTERNAL CAUSE STATU S Diagnosis 07/21/2019 02:23:00 PM [facility] S80.01XA Contusion of right knee, initial encount er CONTUSION OF RIGHT KNEE, INITIAL ENCOUNTER Diagnosis 07/21/2019 02:23:00 PM [facility] S33.5XXA Sprain of ligaments of lumbar spine, ini tial encounter SPRAIN OF LIGAMENTS OF LUMBAR SPINE, INITIAL ENCOU Diagnosis 07/21/2019 02:23:00 PM [facility] S39.92XA Unspecified injury of lower back, initia l encounter UNSPECIFIED INJURY OF LOWER BACK, INITIAL ENCOUNTER Diagnosis 07/21/2019 02:23:00 PM [facility] Surgeries/Procedures Procedure Description Date Indications Data Source(s) Introduction of Anti-inflammatory into Peripheral Vein, Perc utaneous Approach 08/31/2020 12:00:00 AM [facility] Introduction of Other Anti-infective int o Peripheral Vein, Percutaneous Approach 08/31/2020 12:00:00 AM [facility] INTRODUCE REMDESIVIR IN PERIPH VEIN, PERC, [place] 08/31/2020 12:00:00 AM [facility] POCT GLUCOSE, DOCKED POCT GLUCOSE, DOCKED Routine 07/10/2020 11:55 AM EST 07/10/2020 11:55:00 AM [facility] POCT GLUCOSE, DOCKED POCT GLUCOSE, DOCKED Routine 07/10/2020 8:48 AM EST 07/10/2020 08:48:00 AM [facility] BLOOD COUNT COMPLETE AUTO&AUTO DIFRNTL WBC COUNT CBC AND DIFFER ENTIAL Routine 07/10/2020 3:54 AM EST 07/10/2020 03:54:00 AM [facility] PHOSPHORUS INORGANIC PHOSPHORUS LEVEL Timed 07/10/2020 3:[address] 07/10/2020 03:54:00 AM [facility] MAGNESIUM MAGNESIUM LEVEL Routine 07/10/2020 3:54 AM EST 07/10/2020 03:54:00 AM [facility] COMPREHENSIVE METABOLIC PANEL COMPREHENSIVE METABOLIC PANEL Rou jeyson 07/10/2020 3:54 AM EST 07/10/2020 03:54:00 AM [facility] PHOSPHORUS INORGANIC PHOSPHORUS LEVEL Timed 07/09/2020 6:[address] 07/09/2020 06:16:00 PM [facility] GLUCOSE QUANTITATIVE BLOOD XCPT REAGENT STRIP POCT GLUCOSE, MALIHA GUILLERMO Routine 07/09/2020 4:49 PM EST 07/09/2020 04:49:00 PM [facility] PHOSPHORUS INORGANIC PHOSPHORUS LEVEL Timed 07/09/2020 4:[address] 07/09/2020 04:09:00 PM [facility] GLUCOSE QUANTITATIVE BLOOD XCPT REAGENT STRIP POCT GLUCOSE, MALIHA GUILLERMO Routine 07/09/2020 12:24 PM EST 07/09/2020 12:24:00 PM [facility] PHOSPHORUS INORGANIC PHOSPHORUS LEVEL Timed 07/09/2020 10:[address] 07/09/2020 10:05:00 AM [facility] GLUCOSE QUANTITATIVE BLOOD XCPT REAGENT STRIP POCT GLUCOSE, MALIHA GUILLERMO Routine 07/09/2020 7:50 AM EST 07/09/2020 07:50:00 AM [facility] BLOOD COUNT COMPLETE AUTO&AUTO DIFRNTL WBC COUNT CBC AND DIFFER ENTIAL Routine 07/09/2020 12:47 AM EST 07/09/2020 12:47:00 AM [facility] PHOSPHORUS INORGANIC PHOSPHORUS LEVEL Timed 07/09/2020 12:[address] 07/09/2020 12:47:00 AM [facility] MAGNESIUM MAGNESIUM LEVEL Routine 07/09/2020 12:47 AM EST 07/09/2020 12:47:00 AM [facility] COMPREHENSIVE METABOLIC PANEL COMPREHENSIVE METABOLIC PANEL Rou jeyson 07/09/2020 12:47 AM EST 07/09/2020 12:47:00 AM [facility] GLUCOSE QUANTITATIVE BLOOD XCPT REAGENT STRIP POCT GLUCOSE, MALIHA GUILLERMO Routine 07/08/2020 9:24 PM EST 07/08/2020 09:24:00 PM [facility] GLUCOSE QUANTITATIVE BLOOD XCPT REAGENT STRIP POCT GLUCOSE, MALIHA GIULLERMO Routine 07/08/2020 4:57 PM EST 07/08/2020 04:57:00 PM [facility] GLUCOSE QUANTITATIVE BLOOD XCPT REAGENT STRIP POCT GLUCOSE, MALIHA GUILLERMO Routine 07/08/2020 12:50 PM EST 07/08/2020 12:50:00 PM [facility] PHOSPHORUS INORGANIC PHOSPHORUS LEVEL Timed 07/08/2020 10:[address] 07/08/2020 10:28:00 AM [facility] GLUCOSE QUANTITATIVE BLOOD XCPT REAGENT STRIP POCT GLUCOSE, MALIHA GUILLERMO Routine 07/08/2020 8:42 AM EST 07/08/2020 08:42:00 AM [facility] BLOOD COUNT COMPLETE AUTO&AUTO DIFRNTL WBC COUNT CBC AND DIFFER ENTIAL Timed 07/08/2020 2:11 AM EST 07/08/2020 02:11:00 AM [facility] PHOSPHORUS INORGANIC PHOSPHORUS LEVEL Timed 07/08/2020 2:[address] 07/08/2020 02:11:00 AM [facility] MAGNESIUM MAGNESIUM LEVEL Routine 07/08/2020 2:11 AM EST 07/08/2020 02:11:00 AM [facility] COMPREHENSIVE METABOLIC PANEL COMPREHENSIVE METABOLIC PANEL Rou jeyson 07/08/2020 2:11 AM EST 07/08/2020 02:11:00 AM [facility] GLUCOSE QUANTITATIVE BLOOD XCPT REAGENT STRIP POCT GLUCOSE, MALIHA GUILLERMO Routine 07/07/2020 9:53 PM EST 07/07/2020 09:53:00 PM [facility] EKG 12-LEAD - CMAXX REPORT EKG 12-LEAD - CMAXX REPORT 07/07/2020 9:45 PM EST 07/07/2020 09:45:00 PM [facility] EKG 12-LEAD - CMAXX REPORT EKG 12-LEAD - CMAXX REPORT 07/07/2020 9:45 PM EST 07/07/2020 09:45:00 PM [facility] EKG 12-LEAD EKG 12-LEAD STAT 07/07/2020 9:45 PM EST 07/07/2020 09:45:00 PM [facility] BLOOD COUNT COMPLETE AUTO&AUTO DIFRNTL WBC COUNT CBC AND DIFFER ENTIAL Timed 07/07/2020 6:45 PM EST 07/07/2020 06:45:00 PM [facility] PHOSPHORUS INORGANIC PHOSPHORUS LEVEL Routine 07/07/2020 6:[address] 07/07/2020 06:45:00 PM [facility] GLUCOSE QUANTITATIVE BLOOD XCPT REAGENT STRIP POCT GLUCOSE, DOC KED Routine 07/07/2020 5:29 PM EST 07/07/2020 05:29:00 PM [facility] PHOSPHORUS INORGANIC PHOSPHORUS LEVEL Timed 07/07/2020 5:[address] 07/07/2020 05:29:00 PM [facility] MAGNESIUM MAGNESIUM LEVEL Routine 07/07/2020 5:29 PM EST 07/07/2020 05:29:00 PM [facility] GLUCOSE QUANTITATIVE BLOOD XCPT REAGENT STRIP POCT GLUCOSE, DOC KED Routine 07/07/2020 12:25 PM EST 07/07/2020 12:25:00 PM [facility] GLUCOSE QUANTITATIVE BLOOD XCPT REAGENT STRIP POCT GLUCOSE, DOC KED Routine 07/07/2020 12:23 PM EST 07/07/2020 12:23:00 PM [facility] POTASSIUM SERUM PLASMA/WHOLE BLOOD POTASSIUM Routine 07/07/2020 8:22 AM EST 07/07/2020 08:22:00 AM [facility] PHOSPHORUS INORGANIC PHOSPHORUS LEVEL Routine 07/07/2020 8:[address] 07/07/2020 08:22:00 AM [facility] GLUCOSE QUANTITATIVE BLOOD XCPT REAGENT STRIP POCT GLUCOSE, DOC KED Routine 07/07/2020 8:18 AM EST 07/07/2020 08:18:00 AM [facility] BLOOD COUNT COMPLETE AUTOMATED CBC AND DIFFERENTIAL Timed 07/07/2020 5:43 AM EST 07/07/2020 05:43:00 AM [facility] HEMOGLOBIN GLYCOSYLATED A1C HEMOGLOBIN A1C Routine 07/07/2020 5:43 AM EST 07/07/2020 05:43:00 AM [facility] COMPREHENSIVE METABOLIC PANEL COMPREHENSIVE METABOLIC PANEL Rou jeyson 07/07/2020 5:43 AM EST 07/07/2020 05:43:00 AM [facility] BLOOD COUNT COMPLETE AUTO&AUTO DIFRNTL WBC COUNT CBC AND DIFFER ENTIAL Timed 07/07/2020 12:12 AM EST 07/07/2020 12:12:00 AM [facility] GLUCOSE QUANTITATIVE BLOOD XCPT REAGENT STRIP POCT GLUCOSE, DOC KED Routine 07/06/2020 10:08 PM EST 07/06/2020 10:08:00 PM [facility] POTASSIUM SERUM PLASMA/WHOLE BLOOD POTASSIUM Routine 07/06/2020 9:39 PM EST 07/06/2020 09:39:00 PM [facility] PHOSPHORUS INORGANIC PHOSPHORUS LEVEL Routine 07/06/2020 9:[address] 07/06/2020 09:39:00 PM [facility] MAGNESIUM MAGNESIUM LEVEL Routine 07/06/2020 9:39 PM EST 07/06/2020 09:39:00 PM [facility] BLOOD COUNT COMPLETE AUTO&AUTO DIFRNTL WBC COUNT CBC AND DIFFER ENTIAL Timed 07/06/2020 5:36 PM EST 07/06/2020 05:36:00 PM [facility] LACTATE LACTIC ACID LEVEL, PLASMA Timed 07/06/2020 5:36 PM EST 07/06/2020 05:36:00 PM [facility] COMMUNITY-ACQUIRED DIARRHEA PANEL COMMUNITY-ACQUIRED DIARRHEA P QUINCY Routine 07/06/2020 2:48 PM EST 07/06/2020 02:48:00 PM [facility] OVA&PARASITES DIRECT SMEARS CONCENTRATION&ID OVA AND PARASITE S CREEN Routine 07/06/2020 2:48 PM EST 07/06/2020 02:48:00 PM [facility] UPPER GI ENDOSCOPY; DX, W/WO SPECIMEN COLLECTION, BRUS OLAMIDE/WASHING (SEP PROC) UPPER GI ENDOSCOPY; DX, W/WO SPECIMEN COLLECTION, BRUSHING/WASHING (SEP PROC) 07/06/2020 1:25 PM EST Coffee ground emesis 07/06/2020 01:25:00 PM EST - 07/06/2020 02:11:00 PM [facility] BLOOD COUNT COMPLETE AUTO&AUTO DIFRNTL WBC COUNT CBC AND DIFFER ENTIAL Timed 07/06/2020 11:35 AM EST 07/06/2020 11:35:00 AM [facility] PHOSPHORUS INORGANIC PHOSPHORUS LEVEL Routine 07/06/2020 11:[address] 07/06/2020 11:35:00 AM [facility] MAGNESIUM MAGNESIUM LEVEL Routine 07/06/2020 11:35 AM EST 07/06/2020 11:35:00 AM [facility] LACTATE LACTIC ACID LEVEL, PLASMA Timed 07/06/2020 11:35 AM EST 07/06/2020 11:35:00 AM [facility] BASIC METABOLIC PANEL CALCIUM TOTAL BASIC METABOLIC PANEL Routi ne 07/06/2020 11:35 AM EST 07/06/2020 11:35:00 AM EST [facility] BLOOD COUNT COMPLETE AUTO&AUTO DIFRNTL WBC COUNT CBC AND DIFFER ENTIAL Timed 07/06/2020 8:09 AM EST 07/06/2020 08:09:00 AM [facility] INSJ NON-TUNNELED CENTRAL VENOUS CATH AGE 5 YR/> VA INSERT NON-TUNNEL CV CATH Routine 07/06/2020 6:34 AM EST Colitis Gastrointestinal hemorrhage, unspecified gastrointestinal hemorrhage type 07/06/2020 06:34:47 AM EST Gastrointestinal hemorrhage, unspecified [facility], unspecified gastrointestinal hemorrhage type Colitis US ABDOMINAL REAL TIME W/IMAGE DOCUMENTATION US ABDOMEN COMPLET E [id number] STAT 07/06/2020 4:47 AM EST 07/06/2020 04:47:51 AM [facility] DRUGS OF ABUSE, URINE DRUGS OF ABUSE, URINE Routine 07/06/2020 4 :26 AM EST 07/06/2020 04:26:00 AM [facility] THROMBOPLASTIN TIME PARTIAL PLASMA/WHOLE BLOOD PARTIA L THROMBOPLASTIN TIME (PTT) Routine 07/06/2020 4:26 AM EST 07/06/2020 04:26 :00 AM [facility] IAAD EIA HIV-1 AG W/HIV-1&HIV-2 ANTBDY SINGLE HIV AG AB COMBO S CREEN Routine 07/06/2020 4:26 AM EST 07/06/2020 04:26:00 AM [facility] ETHYL ALCOHOL LEVEL ETHYL ALCOHOL LEVEL Routine 07/06/2020 4:26 AM EST 07/06/2020 04:26:00 AM [facility] HEPATITIS C ANTIBODY HEPATITIS C ANTIBODY Routine 07/06/2020 4:26 AM EST 07/06/2020 04:26:00 AM [facility] HEPATITIS ANTIBODY HAAB IGM ANTIBODY HEPATITIS A ANTIBODY, IGM Routine 07/06/2020 4:26 AM EST 07/06/2020 04:26:00 AM [facility] HEPATITIS B CORE ANTIBODY HBCAB IGM ANTIBODY HEPATITIS B CO RE ANTIBODY, IGM Routine 07/06/2020 4:26 AM EST 07/06/2020 04:26:00 AM [facility] SODIUM URINE SODIUM, URINE, RANDOM Routine 07/06/2020 4:26 AM EST 07/06/2020 04:26:00 AM [facility] CREATININE OTHER SOURCE CREATININE, URINE, RANDOM Routine 07/06/2020 4:26 AM EST 07/06/2020 04:26:00 AM [facility] IAAD EIA HEPATITIS B SURFACE ANTIGEN HEPATITIS B SURFACE ANTIGE N Routine 07/06/2020 4:26 AM EST 07/06/2020 04:26:00 AM [facility] CULTURE BACTERIAL BLOOD AEROBIC W/ID ISOLATES BLOOD CULTURE R outine 07/06/2020 4:26 AM EST 07/06/2020 04:26:00 AM [facility] CULTURE BACTERIAL BLOOD AEROBIC W/ID ISOLATES BLOOD CULTURE R outine 07/06/2020 4:26 AM EST 07/06/2020 04:26:00 AM [facility] URNLS DIP STICK/TABLET REAGENT AUTO MICROSCOPY URINALYSIS W ITH MICROSCOPIC Routine 07/06/2020 4:26 AM EST 07/06/2020 04:26:00 AM [facility] PROTHROMBIN TIME PROTIME INR Routine 07/06/2020 4:26 AM EST 07/06/2020 04:26:00 AM [facility] CULTURE BCT ISOL&PRSMPTV ID ISOLATE EA URINE URINE CULTURE Ro utine 07/06/2020 4:26 AM EST 07/06/2020 04:26:00 AM [facility] PHOSPHORUS INORGANIC PHOSPHORUS LEVEL Routine 07/06/2020 4:[address] 07/06/2020 04:26:00 AM [facility] MAGNESIUM MAGNESIUM LEVEL Routine 07/06/2020 4:26 AM EST 07/06/2020 04:26:00 AM [facility] LACTATE LACTIC ACID LEVEL, PLASMA Routine 07/06/2020 4:26 AM EST 07/06/2020 04:26:00 AM [facility] AMMONIA AMMONIA LEVEL Routine 07/06/2020 4:26 AM EST 07/06/2020 04:26:00 AM [facility] COMPREHENSIVE METABOLIC PANEL COMPREHENSIVE METABOLIC PANEL Rou jeyson 07/06/2020 4:26 AM EST 07/06/2020 04:26:00 AM [facility] GLUCOSE QUANTITATIVE BLOOD XCPT REAGENT STRIP POCT GLUCOSE, DOC KED Routine 07/06/2020 2:19 AM EST 07/06/2020 02:19:00 AM [facility] UPPER GI ENDOSCOPY UPPER GI ENDOSCOPY 07/06/2020 12:[address] 07/06/2020 12:00:00 AM [facility] Results ID Date Data Source [id number] 09/05/2020 07:31:00 AM [facility] Exam Number: [id number] Reported By: Elkin OMALLEY M.D. Signed By: Diony OMALLEY M.D. Name Value Range Interpretation Code Description Data Zahraa rce(s) Supporting Document(s) ID Date Data Source [id number] 09/04/2020 01:21:00 PM [facility] [address] [id number] SUMMARYPATIENT NAME: JANICE VERMA MR#: [id number] PHYSICIAN: TODD ELKINS DOAUTHOR: Todd Elkins DO DATE: 08/31/20 RM#: [id number] DATE: 09/04/20 : 65Summary of HospitalizationReason for AdmissionChest pain and shortness of breathHospital CoursePatient is a 55 years of male with a past medical history significant fordiabetes, chronic alcohol abuse, depression, BPH and hypertension initial [facility] with complaints of shortness ofbreath and chest pain. Diagnostic work-up in the emergency room demonstratedCOVID-19 infection and human virus infection. Patient was given remdesivir,dexamethasone, Rocephin, azithromycin. Patient was then transferred to [facility] for severe sepsis secondary to pneumonia and COVID-19infection. Patient continued with IV fluid and IV antibiotics. Due to elevatedD-dimer, CT angiogram of the chest and lower extremity Doppler were performed.Serial troponin came back negative. Lactic acidosis resolved. Later, patientwas able to maintain oxygenation in room air. Patient finished 5-day course ofremdesivir. Patient maintains oxygenation on room air. On 09/04/2020, patient isdischarged home with recommendation of following with her primary care providerin 1 to 2 weeks after discharge. Recommend continuing self quarantine afterdischarge.Procedures & Relevant StudiesStudiesCT ANGIO CHEST WITH IV FOR P DATE OF EXAMINATION: 08/31/2020 18:02 ESTCT ANGIO CHEST WITH IV FOR PEHISTORY: Code-19 positive and chest pain.TECHNIQUE:This CT exam was performed using the following dose reductiontechnique: automated exposure control, adjustment of mA and/or kVaccording to the patient's size, and use of iterative reconstructiontechnique.Axial contrast enhanced images from the thoracic inlet to the upperabdomen using pulmonary embolus technique and protocol.FINDINGS:Satisfactory enhancement of the pulmonary vasculature is achieved andno filling defects are identified to suggest pulmonary embolus. Largearea of consolidation in the left lower lobe along with patchyairspace disease and consolidations involving left upper lobe,lingula, right middle lobe, and right lower lobe most compatible withCovid-19 pulmonary disease. No effusion. No pneumothorax.Tracheobronchial tree is relatively patent. Mild reactive mediastinaladenopathy noted.Atherosclerotic changes to the thoracic aorta and coronary arteriesnoted without aortic aneurysm or dissection. No significantcardiomegaly or pericardial effusion. Surrounding musculoskeletalstructures are intact and without acute osseous abnormality. Upperabdomen demonstrates hepatosplenomegaly.IMPRESSION:Significant bilateral patchy areas of consolidation with largeconsolidation in the left lower lobe compatible with Covid-19pulmonary disease.No evidence for pulmonary embolus.U/S VENOUS DOPP ARM/LEG BILADATE OF EXAMINATION: 09/01/2020 18:02 ESTU/S VENOUS DOPP ARM/LEG BILATHISTORY: Pain and swelling. Possible pulmonary embolusRIGHT LOWER EXTREMITY VENOUS DOPPLERDuplex scan was performed using B-mode/anand scale imaging and Dopplerspectral analysis and color flow.Common femoral and superficial femoral veins were interrogatedthroughout their course, revealing easy compressibility andappropriate augmentation. The popliteal vessels are also easilycompressible and show no signs of intraluminal thrombus formation.IMPRESSION:Negative study for deep venous thrombosis in the right low erextremity.LEFT LOWER EXTREMITY VENOUS DOPPLERDuplex scan was performed using B-mode/anand scale imaging and Dopplerspectral analysis and color flow.Common femoral and superficial femoral veins were interrogatedthroughout their course, revealing easy compressibility andappropriate augmentation. The popliteal vessels are also easilycompressible and show no signs of intraluminal thrombus formation.Braun's cyst identified in the popliteal fossa measuring approximately3.4 x 1.1 x 2.2 cmIMPRESSION:Negative study for deep venous thrombosis in the left lower extremity.Braun's cyst.Diagnoses (Current Visit )Problem List1. Pneumonia due to COVID-19 virus2. Chest pain3. Severe sepsis4. Diabetes5. Chronic alcohol abuse6. Hyperlipidemia7. Hypertension8. Depression9. BPH (benign prostatic hyperplasia)10. HUMAN ROBHVXEYQR01. Elevated d- dimerDiagnoses (Other)Past Pertinent History1. Diabetes2. Chronic alcohol abuse3. Hyperlipidemia4. Hypertension5. Depression6. BPH (benign prostatic hyperplasia)Patient's Discharge ConditionVital SignsVital Signs-LastResult Date TimePulse Ox 95 09/04 1109B/P 125/100 09/04 1109Temp 98.0 09/04 1109Pulse 70 09/04 1109Resp 19 09/04 11 09Patient's Discharge ConditionDischarge Date 09/04/20Discharge Conditon fairDischarge DispositionHomePhysical ExaminationGeneral Appearance no acute distress, afebrile, alert, awake, face symmetrical,mental status normal, no respiratory distressHead atraumatic, normocephalicENT moist mucosal membranesNeck no JVD, suppleCardiovascular regular rate, no murmur, no gallop, no rub, normal heart soundsRespiratory decreased breath sounds, rales ( bilaterally), No wheezesAbdomen soft, non-tender, no distention, no organomegaly, normal bowel sounds,no guarding, no reboundUrinary no bladder distention, no flank painGenitourinary (male) no flank painExtremities no clubbing, no cyanosis, no edema, normal pulsesMuscoskeletal normal inspectionNeurological alert, oriented x 3Lymphatic no lymphadenopathyPsych/Me ntal Status normal affectPatient/Family InstructionsPrescriptionsStop taking the following medications:CARVEDILOL (Coreg*) 12.5 MG PBXOOL08.5 MILLIGRAM Orally TWICE DAILY Qty = 0Continue taking these medications:Aspirin E.c.* (Aspirin EC*) 81 MG TABLET.DR81 MILLIGRAM Orally DAILYOMEPRAZOLE (Omeprazole) 20 MG TABLET.DR20 MILLIGRAM Orally DAILYHYDROXYZINE PAMOATE (Atarax*) 50 MG [id number] MILLIGRAM Orally TWICE DAILY as needed for ANXIETYATORVASTATIN CALCIUM (ATORVASTATIN) 80 MG [id number] MILLIGRAM Orally DAILYQty = 0FOLIC ACID* (Folvite*) 1 MG TABLET1 MILLIGRAM Orally DAILYQty = 0NAPROXEN (NAPROXEN*) 500 MG [id number] MILLIGRAM Orally TWICE DAILYQty = 0Fluoxetine* (Prozac*) 20 MG [id number] MILLIGRAM Orally DAILYQty = 0QUETIAPINE FUMARATE (QUETIAPINE) 100 MG [id number] MILLIGRAM Orally AT BEDTIMEQty = 0TAMSULOSIN HCL (TAMSULOSIN) 0.4 MG CAP.ER.24H0.4 MILLIGRAM Orally TWICE DAILYQty = 0Discharge Activity: As toleratedDischarge diet: 2Gm SodiumFollow-upFollow up with your Primary care physicianTime spent by provider to complete discharge > 30 minutesDATE SIGNED: 09/10/20 Electronically SignedTIME SIGNED: 2012 TODD ELKINS DO Name Value Range Interpretation Code Description Data Zahraa rce(s) Supporting Document(s) ID Date Data Source [id number] 09/04/2020 12:09:00 PM EST [facility] Name Value Range Interpretation Code Description Data Zahraa rce(s) Supporting Document(s) FGLU 293 mg/dL 70[facility] ID Date Data Source [id number] 09/04/2020 10:29:00 AM [place], [place] [address]PATIENT NAME: JANICE VERMA#: [id number] PHYSICIAN: TODD ELKINS DOACCOUNT #: [id number] ADM. DATE: 08/31/20PATIENT : 65 DISCH. DATE: [50}DISCHARGE SUMMARYMedical Discharge PlanPersonal Care InstructionsDischarge Activity: As toleratedDischarge diet: 2Gm SodiumProblem ListMedical ProblemsBPH (benign prostatic hyperplasia)Chest pain (Resolved)Chronic alcohol abuseDepressionDiabetesElevated d-dimerHUMAN RHINOVIRUSHyperlipidemiaHypertensionPneumonia due to COVID-19 virusSevere sepsis (Resolved)Follow Up CareFollow Up:Follow up with your Primary care physicianEND ENDDICT: 09/04/20 1029 Electronically SignedTRANS:09/04/20 1029 SEBLE MORFIN BY:DATE SIGNED:09/10/20TIME SIGNED: 2013REPORT COPY TO: Name Value Range Interpretation Code Description Data Zahraa rce(s) Supporting Document(s) ID Date Data Source [id number] 09/04/2020 06:06:00 AM EST [facility] Name Value Range Interpretation Code Description Data Zahraa rce(s) Supporting Document(s) FGLU 209 mg/dL 70-[facility] ID Date Data Source [id number] 09/03/2020 10:52:00 PM EST [facility] Name Value Range Interpretation Code Description Data Zahraa rce(s) Supporting Document(s) FGLU 316 mg/dL 70-110 H [facility] ID Date Data Source [id number] 09/03/2020 06:44:00 PM EST [facility] Name Value Range Interpretation Code Description Data Zahraa rce(s) Supporting Document(s) FGLU 391 mg/dL 70-110 [facility] ID Date Data Source [id number] 09/03/2020 02:44:00 PM EST [facility] [place] [address] [id number] NOTEPATIENT NAME: JOYIMTIAZKARISHMAJANICE PHYSICIAN: TODD ELKINS DOAUTHOR: Luz Elena Elkins DO. DATE: 08/31/20 MR#: [id number] NOTE DATE: 09/03/20 RM#: [id number] TIME: 1451 : 65SubjectiveEvents Since Last EntryPatient seen and examined in room today. Patient's oxygenation is maintainedin room air no fever or chill.ObjectiveVital SignsVital Signs-24 HRS01/02 09/02807 2141 2150 0210 0646Temp 98.0 97.8 97.0 97.2Pulse 51 50 78 52 49Resp 20 18 17 16B/P 126/63 130/66 130/66 119/64 120/65B/P MeanPulse Ox 96 95 96 96O2 DeliveryO2 Flow VwyvYrM095/864404TwfcVeoxh 78RespB/P 130/66B/P MeanPulse OxO2 DeliveryO2 Flow RateFiO2 Intake/OutputIntake/Output Summary 24 hours/ 1900 /03 0700Intake Total 1092 600Output TotalBalance 1092 600Intake, Oral 1092 600Number 1BowelMovementsNumber 8 4UnmeasuredVoidsCurrent MedicationsGuaifenesin (Robitussin) 10 ML Q6HPRN PRN PO (UNVr)Enoxaparin Sodium (Lovenox) 40 MG BID SUBCUTInsulin Detemir (Levemir) 15 UNIT BID SUBCUTAcetaminophen (Tylenol) 650 MG Q6HPRN PRN POMultivitamins (Multivitamin) 1 TAB DAILY POCeftriaxone Sodium (Rocephin) 1 GM Q24H IVFurosemide (Lasix) 20 MG 0800 POGuaifenesin (Mucinex) 600 MG Q12H POHydrocodone Bitart/Acetaminophen (Vicodin 5-300 MG) 1 TAB Q8HPRN PRN POAzithromycin (Zithromax) 250 MG Q24H POAtorvastatin Calcium (Lipitor) 80 MG QHS POInsulin Aspart (Humalog Insulin) QHS Low dose sliding scaleQHS SUBCUTAlbuterol Sulfate (Ventolin) 1 PUFFBID INHCarvedilol (Coreg) 12.5 MG BID PODexamethasone (Decadron) 6 MG DAILY IVFluoxetine HCl (Prozac) 20 MG DAILY POFolic Acid (Folvite) 1 MG DAILY POPantoprazole Sodium (Protonix) 40 MG DAILY POSodium Chloride (Saline Flush Syr(5ML)) 5 ML Q12H IVTamsulosin HCl (Flomax) 0.4 MG BID POThiamine HCl (VITAMIN B1) 100 MG DAILY POTiotropium Fenton (Spiriva) 1 puffDAILY INHInsulin Aspart (Humalog Insulin) Low dose sliding scaleAC MEAL SUBCUTLorazepam (Ativan) 0.5 MG Q4HPRN PRN POGlucose (Insta- Glucose) 15 GM DAILY NEEDED PRN POOndansetron HCl (Zofran) 4 MG Q6HPRN PRN IVSodium Chloride (Saline Flush Syr(5ML)) 5 ML QIDPRN PRN IVExamGeneral Appearance no acute distress, afebrile, alert, awake, face symmetrical,mental status normal, no respiratory distressHead atraumatic, normocephalicENT moist mucosal membranesNeck no JVD, suppleCardiovascular regular rate, no murmur, no gallop, no rub, normal heart soundsRespiratory decreased breath sounds, rales ( bilaterally), No wheezesAbdomen soft, non- tender, no distention, no organomegaly, normal bowel sounds,no guarding, no reboundGenitourinary (male) no flank painUrinary no bladder distention, no flank painExtremities no clubbing, no cyanosis, no edema, normal pulsesMuscoskeletal normal inspectionNeurological alert, oriented x 3Lymphatic no lymphadenopathyPsych/Mental Status normal affectResultsLaboratory DataRecent Labs-24 hours09/03 0820ChemistrySodium (136 - 147 mmol/L) 135 LPotassium (3.5 - 5.1 mmol/L) 4.1Chloride (99 - 110 mmol/L) 102Serum Bicarbonate (20 - 33 mmol/L) 24Anion Gap (10.0 - 20.0) 13.1BUN (7 - 23 mg/dL) 23Creatinine (0.500 - 1.300 mg/dL) 1.010Estimated GFR/1.73 m2 (mL/min) > 60Glucose (70 - 110 mg/dL) 237 HPOC Glucose (70 - 110 mg/dL) 280 HCalcium (8.3 - 10.7 mg/dL) 7.8 LC- Reactive Protein (0.0 - 0.49 mg/dL) 4.19 HCoagulationD-Dimer (mg/L) 1.72 HHematologyWBC (4.0 - 10.5 x10E3/uL) 11.17 HRBC (4.70 - 6.00 x10E6/uL) 3.88 LHgb (14.0 - 18.0 g/dL) 11.9 LHct (42.0 - 52.0 %) 35.7 LMCV (81.0 - 99.0 fL) 92.0MCH (27.0 - 31.0 pg) 30.7MCHC (32.7 - 35.6 g/dL) 33.3RDW (11.5 - 14.0 %) 14.3 HPlt Count (150 - 450 x10E3/uL) 85 LMPV (6.9 - 9.5 fl) 11.8 HImmature Gran % (Auto) (0.1 - 2.0 %) 1.7Neut % (Auto) (34 - 64 %) 84.1 HLymph % (Auto) (25 - 45 %) 9.5 LMono % (Auto) (1.7 - 10.6 %) 4.0Eos % (Auto) (0.4 - 7.0 %) 0.5Baso % (Auto) (0.1 - 2.0 %) 0.2Abs Immat Gran (auto) (0.0 - 0.1 x10E3/uL) 0.19 HAbsolute Neuts (auto) (1.2 - 7.6 x10E3/uL) 9.39 HAbsolute Lymphs (auto) (1.0 - 3.5 x10E3/uL) 1.06Absolute Monos (auto) (0.1 - 1.0 x10E3/uL) 0.45Absolute Eos (auto) (0.1 - 0.7 x10E3/uL) 0.06 LAbsolute Basos (auto) (0.0 - 0.1 x10E3/uL) 0.02Nucleated RBC % (auto) (0 %) 0Assessment/PlanProblem List1. Pneumonia due to COVID-19 virusA&P-Continue IV remdesivir, IV Decadron, and PO azithromycin2. Chest painStatus ResolvedA&P-Secondary to severe cough from Covid infection3. Severe sepsisStatus ResolvedA&P-Continue antiviral therapy and antibiotic.4. DiabetesA&P-Continues on insulin sliding scale-Continue Levemir5. Chronic alcohol abuseA&P-Continue thiamine, folic acid and multivitamin-No sign of alcohol withdrawal.6. HyperlipidemiaA&P-Continue statin7. HypertensionA&P- Continue Coreg8. DepressionA&P- Continue Prozac9. BPH (benign prostatic hyperplasia)A&PContinue Pzihlh78. HUMAN RHINOVIRUSA&P-Continue supportive care11. Elevated d-dimerA&P- CTA ruled out PE. Lower extremity Doppler came back negative for DVT.- Patient has Covid.Resuscitation status Full codeVTE ProphylaxisVTE Prophylaxis: Continue Lovenox.DATE SIGNED: 09/10/20 Electronically SignedTIME SIGNED: 2012 TODD ELKINS DO Name Value Range Interpretation Code Description Data Zahraa rce(s) Supporting Document(s) ID Date Data Source [id number] 09/03/2020 02:54:00 PM EST [facility] Name Value Range Interpretation Code Description Data Zahraa rce(s) Supporting Document(s) FGLU 377 mg/dL 70-110 [facility] ID Date Data Source [id number] 09/03/2020 09:20:00 AM EST [facility] Name Value Range Interpretation Code Description Data Zahraa rce(s) Supporting Document(s) GLU 237 mg/dL 70-110 [facility] Patients taking Sulfasalazine may have f alsely depressedGlucose levels. Patients taking Sulfapyridine may havefalsely elevated Glucose levels. Patients should be drawnfor Glucose before the initial administration of eitherdrug. BUN 23 mg/dL 7-23 [facility] CRE 1.010 mg/dL 0.500-1.300 [facility] GFR > 60 mL/min [facility] CHLORIDE 102 mmol/L 99-110 [facility] NA 135 mmol/L 136-147 [facility] POTASSIUM 4.1 mmol/L 3.5-5.1 [facility] TCO2 24 mmol/L 20-33 [facility] ANION GAP 13.1 10.0-20.0 [facility] CA 7.8 mg/dL 8.3-10.7 [facility] ID Date Data Source [id number] 09/03/2020 08:55:00 AM EST [facility] Name Value Range Interpretation Code Description Data Zahraa rce(s) Supporting Document(s) WBC 11.17 x10E3/uL 4.0-10.5 [facility] RBC 3.88 x10E6/uL 4.70-6.00 [facility] Hemoglobin 11.9 g/dL 14.0-18.0 [facility] Hematocrit 35.7 % 42.0-52.0 [facility] MCV 92.0 fL 81.0-99.0 [facility] MCH 30.7 pg 27.0-31.0 [facility] MCHC 33.3 g/dL 32.7-35.6 [facility] RDW 14.3 % 11.5-14.0 [facility] Platelet count 85 x10E3/uL 150-450 [facility] MPV 11.8 fl 6.9-9.5 [facility] Neutrophils 84.1 % 34-64 [facility] Lymphocytes 9.5 % 25-45 [facility] Monocytes 4.0 % 1.7-10.6 [facility] Eosinophils 0.5 % 0.4-7.0 [facility] Basophils 0.2 % 0.1-2.0 [facility] Imm. Gran. 1.7 % 0.1-2.0 [facility] Abs. Neutro. 9.39 x10E3/uL 1.2-7.6 [facility] Abs. Lymph. 1.06 x10E3/uL 1.0-3.5 [facility] Abs. Miner. 0.45 x10E3/uL 0.1-1.0 [facility] Abs. Eosin. 0.06 x10E3/uL 0.1-0.7 [facility] Abs. Baso. 0.02 x10E3/uL 0.0-0.1 [facility] Abs. Imm. Gran. 0.19 x10E3/uL 0.0-0.1 [facility] ANRBC% 0 % 0 [facility] ID Date Data Source [id number] 09/03/2020 01:26:00 PM EST [facility] Name Value Range Interpretation Code Description Data Zahraa rce(s) Supporting Document(s) D-DIMER 1.72 mg/L [facility] CORRECTED REPORT 09/03/20 1325: D-DIMER previously reported as: 3.65 H mg/LCUT OFF VALUE = 0.5 mg/L The negative predictive value for DVT or PE is at 98% whenthe result is below the cut off. ID Date Data Source [id number] 09/03/2020 09:20:00 AM EST [facility] Name Value Range Interpretation Code Description Data Zahraa rce(s) Supporting Document(s) C-REACTIVE PROT 4.19 mg/dL 0.0-0.49 [facility] ID Date Data Source [id number] 09/03/2020 08:28:00 AM EST [facility] Name Value Range Interpretation Code Description Data Zahraa rce(s) Supporting Document(s) FGLU 280 mg/dL 70-110 [facility] ID Date Data Source [id number] 09/02/2020 11:59:00 AM EST [facility] [address] [id number] NOTEPATIENT NAME: ALIREZAJANICE PHYSICIAN: TODD ELKINS DOAUTHOR: Luz Elena Elkins DO. DATE: 08/31/20 MR#: [id number] NOTE DATE: 09/02/20 RM#: [id number] TIME: 1218 : 65SubjectiveEvents Since Last EntryPatient seen and examined in room today. Patient stated his breathingdemonstrated improvement since admission. No fever or chill.ObjectiveVital SignsVital Signs-24 HRS/09/01 1857 2030 0241 0630Temp 97.7 97.8 97.6 97.2Pulse 59 54 77 68 52Resp 21 20 16 16B/P 112/58 117/65 117/65 115/66 114/90B/P MeanPulse Ox 98 96 95 97O2 DeliveryO2 Flow QxspSgV00209/02 1035Temp 98.1Pulse 52 47Resp 19B/P 106/60 108/60B/P MeanPulse Ox 97O2 DeliveryO2 Flow IbhxXjY1Xtmphb/OutputIntake/Output Summary 24 hours01/ 1900 01/02 0700Intake Total 720 1490Output TotalBalance 720 1490Intake, IV 50Intake, Oral 720 1440Number 1BowelMovementsNumber 8IncontinentVoidsNumber 3UnmeasuredVoidsCurrent MedicationsFurosemide (Lasix) 20 MG 0800 POGuaifenesin (Mucinex) 600 MG Q12H POAcetylcysteine (Mucomyst) 600 MG 1200,0001 POHydrocodone Bitart/Acetaminophen (Vicodin 5-300 MG) 1 TAB Q8HPRN PRN POInsulin Detemir (Levemir) 10 UNIT DAILY SUBCUTAzithromycin (Zithromax) 250 MG Q24H POAtorvastatin Calcium (Lipitor) 80 MG QHS POInsulin Aspart (Humalog Insulin) QHS Low dose sliding scaleQHS SUBCUTAlbuterol Sulfate (Ventolin) 1 PUFFBID INHCarvedilol (Coreg) 12.5 MG BID PODexamethasone (Decadron) 6 MG DAILY IVEnoxaparin Sodium (Lovenox) 40 MG DAILY SUBCUTFluoxetine HCl (Prozac) 20 MG DAILY POFolic Acid (Folvite) 1 MG DAILY POPantoprazole Sodium (Protonix) 40 MG DAILY PORemdesivir (VEKLURY) 100 MG DAILY IVSodium Chloride (NSS 0.9% 250ML) 250 MLSodium Chloride (Saline Flush Syr(5ML)) 5 ML Q12H IVTamsulosin HCl (Flomax) 0.4 MG BID POThiamine HCl (VITAMIN B1) 100 MG DAILY POTiotropium Fenton (Spiriva) 1 puffDAILY INHInsulin Aspart (Humalog Insulin) Low dose sliding scaleAC MEAL SUBCUTLorazepam (Ativan) 0.5 MG Q4HPRN PRN POGlucose (Insta- Glucose) 15 GM DAILY NEEDED PRN POOndansetron HCl (Zofran) 4 MG Q6HPRN PRN IVSodium Chloride (Saline Flush Syr(5ML)) 5 ML QIDPRN PRN IVMorphine Sulfate (Morphine Sulfate) 2 MG Q4HPRN PRN IVExamGeneral Appearance no acute distress, afebrile, alert, awake, face symmetrical,mental status normal, no respiratory distressHead atraumatic, normocephalicENT moist mucosal membranesNeck no JVD, suppleCardiovascular regular rate, no murmur, no gallop, no rub, normal heart soundsRespiratory decreased breath sounds, rales ( bilaterally), No wheezesAbdomen soft, non-tender, no distention, no organomegaly, normal bowel sounds,no guarding, no reboundGenitourinary (male) no flank painUrinary no bladder distention, no flank painExtremities no clubbing, no cyanosis, no edema, normal pulsesMuscoskeletal normal inspectionNeurological alert, oriented x 3Lymphatic no lymphadenopathyPsych/Mental Status normal affectResultsLaboratory DataRecent Labs-24 hours09/01 1706 2026 0436ChemistrySodium (136 - 147 mmol/L) 136Potassium (3.5 - 5.1 mmol/L) 4.5Chloride (99 - 110 mmol/L) 105Serum Bicarbonate (20 - 33 mmol/L) 21Anion Gap (10.0 - 20.0) 14.5BUN (7 - 23 mg/dL) 21Creatinine (0.500 - 1.300 mg/dL) 1.040Estimated GFR/1.73 m2 (mL/min) > 60Glucose (70 - 110 mg/dL) 347 HPOC Glucose (70 - 110 mg/dL) 288 H 377 H 380 HCalcium (8.3 - 10.7 mg/dL) 6.9 LMagnesium (1.6 - 2.6 mg/dL) 1.6To [facility] Bilirubin (0.1 - 1.1 mg/dL) 0.5AST (8 - 40 U/L) 18ALT (6 - 54 U/L) 21Alkaline Phosphatase (45 - 117 U/L) 84Troponin I (0.000 - 0.079 ng/mL) < 0.015C-Reactive Protein (0.0 - 0.49 mg/dL) 11.00 HTotal Protein (6.0 - 7.8 g/dL) 5.1 LAlbumin (3.5 - 5.0 g/dL) 2.4 LGlobulin (2.3 - 3.5 g/dL) 2.7Albumin/Globulin Ratio (1.0 - 2.5) 0.9 LCoagulationD-Dimer (mg/L) 4.40 HHematologyWBC (4.0 - 10.5 x10E3/uL) 12.16 HRBC (4.70 - 6.00 x10E6/uL) 3.69 LHgb (14.0 - 18.0 g/dL) 11.3 LHct (42.0 - 52.0 %) 34.5 LMCV (81.0 - 99.0 fL) 93.5MCH (27.0 - 31.0 pg) 30.6MCHC (32.7 - 35.6 g/dL) 32.8RDW (11.5 - 14.0 %) 14.0Plt Count (150 - 450 x10E3/uL) 70 LMPV (6.9 - 9.5 fl) 12.2 HImmature Gran % (Auto) (0.1 - 2.0 %) 0.7Neut % (Auto) (34 - 64 %) 89.4 HLymph % (Auto) (25 - 45 %) 6.2 LMono % (Auto) (1.7 - 10.6 %) 3.4Eos % (Auto) (0.4 - 7.0 %) 0.2 LBaso % (Auto) (0.1 - 2.0 %) 0.1Abs Immat Gran (auto) (0.0 - 0.1 x10E3/uL) 0.09Absolute Neuts (auto) (1.2 - 7.6 x10E3/uL) 10.88 HAbsolute Lymphs (auto) (1.0 - 3.5 x10E3/uL) 0.75 LAbsolute Monos (auto) (0.1 - 1.0 x10E3/uL) 0.41Absolute Eos (auto) (0.1 - 0.7 x10E3/uL) 0.02 LAbsolute Basos (auto) (0.0 - 0.1 x10E3/uL) 0.01Nucleated RBC % (auto) (0 %) 001/574569SzlovrkzvBqcmuhb (70 - 110 mg/dL) 347 XFedngrqdjcbzFfhqlmbwoihn66/31 0800 BLOOD: Blood Culture - RECD1 0755 BLOOD: Blood Culture - RECDAssessment/PlanProblem List1. Pneumonia due to COVID-19 virusA&P-Continue IV remdesivir, IV Decadron, and PO azithromycin2. Chest painStatus ResolvedA&P-No recurrence.3. Severe sepsisStatus ResolvedA&P-Continue antiviral therapy and antibiotic.4. DiabetesA&P-Continues on insulin sliding scale5. Chronic alcohol abuseA&P-Continue thiamine, folic acid and multivitamin-No sign of alcohol withdrawal.6. HyperlipidemiaA&P-Continue statin7. HypertensionA&P-Continue Coreg8. DepressionA&PContinue Prozac9. BPH (benign prostatic hyperplasia)A&PContinue Wnmade83. HUMAN RHINOVIRUSA&P-Continue supportive care11 . Elevated d-dimerA&P- CTA ruled out PE. Lower extremity Doppler came back negative for DVT.- Patient has Covid.Resuscitation status Full codeVTE ProphylaxisVTE Prophylaxis: Continue Lovenox.DATE SIGNED: 09/10/20 Electronically SignedTIME SIGNED: 2012 TODD ELKINS DO Name Value Range Interpretation Code Description Data Zahraa rce(s) Supporting Document(s) ID Date Data Source [id number] 09/02/2020 05:55:00 AM EST [facility] Name Value Range Interpretation Code Description Data Zahraa rce(s) Supporting Document(s) TROPI < 0.015 ng/mL 0.000-0.079 [facility] ID Date Data Source [id number] 09/02/2020 05:55:00 AM EST [facility] COMMENTS TO LAB: CRITICAL HIGH ON GLUCOM ETER Name Value Range Interpretation Code Description Data Zahraa rce(s) Supporting Document(s) GLU 347 mg/dL 70-110 [facility] Patients taking Sulfasalazine may have f alsely depressedGlucose levels. Patients taking Sulfapyridine may havefalsely elevated Glucose levels. Patients should be drawnfor Glucose before the initial administration of eitherdrug. ID Date Data Source [id number] 09/02/2020 05:55:00 AM EST [facility] Name Value Range Interpretation Code Description Data Zahraa rce(s) Supporting Document(s) C-REACTIVE PROT 11.00 mg/dL 0.0-0.49 H [facility] ital ID Date Data Source [id number] 09/02/2020 05:55:00 AM EST [facility] Name Value Range Interpretation Code Description Data Zahraa rce(s) Supporting Document(s) MAGNESIUM 1.6 mg/dL 1.6-2.6 [facility] ID Date Data Source [id number] 09/02/2020 05:55:00 AM [facility] Name Value Range Interpretation Code Description Data Zahraa rce(s) Supporting Document(s) GLU 347 mg/dL 70-110 [facility] Patients taking Sulfasalazine may have f alsely depressedGlucose levels. Patients taking Sulfapyridine may havefalsely elevated Glucose levels. Patients should be drawnfor Glucose before the initial administration of eitherdrug. BUN 21 mg/dL 7-23 [facility] CRE 1.040 mg/dL 0.500-1.300 [facility] GFR > 60 mL/min [facility] CHLORIDE 105 mmol/L 99-110 [facility] NA 136 mmol/L 136-147 [facility] POTASSIUM 4.5 mmol/L 3.5-5.1 [facility] TCO2 21 mmol/L 20-33 [facility] ANION GAP 14.5 10.0-20.0 [facility] CA 6.9 mg/dL 8.3-10.7 [facility] ALKALINE PHOS 84 U/L 45-117 [facility] TP 5.1 g/dL 6.0-7.8 [facility] ALB 2.4 g/dL 3.5-5.0 [facility] ESRD Dialysis patient Albumin reference range: 2.9-4.4 g/dL GL 2.7 g/dL 2.3-3.5 [facility] A/G 0.9 1.0-2.5 [facility] T. BILIRUBIN 0.5 mg/dL 0.1-1.1 [facility] [employer] [place] Total Bilirubin is n ot recommended forpatients undergoing treatment with eltrombopag (Promacta)due to the potential for falsely elevated results. ALTI 21 U/L 6-54 [facility] Patients taking Sulfasalazine and/or Sul fapyridine may havefalsely depressed ALT levels. Patients should be drawn forALT before the initial administration of either drug. AST 18 U/L 8-40 [facility] Patients taking Sulfasalazine and/or Sul fapyridine may havefalsely depressed AST levels. Patients should be drawn forAST before the initial administration of either drug. ID Date Data Source [id number] 09/02/2020 05:41:00 AM EST [facility] Name Value Range Interpretation Code Description Data Zahraa rce(s) Supporting Document(s) D-DIMER 4.40 mg/L [facility] CUT OFF VALUE = 0.5 mg/L The negative pr edictive value for DVT or PE is at 98% whenthe result is below the cut off. ID Date Data Source [id number] 09/02/2020 05:15:00 AM EST [facility] Name Value Range Interpretation Code Description Data Zahraa rce(s) Supporting Document(s) WBC 12.16 x10E3/uL 4.0-10.5 [facility] RBC 3.69 x10E6/uL 4.70-6.00 [facility] Hemoglobin 11.3 g/dL 14.0-18.0 [facility] Hematocrit 34.5 % 42.0-52.0 [facility] MCV 93.5 fL 81.0-99.0 [facility] MCH 30.6 pg 27.0-31.0 [facility] MCHC 32.8 g/dL 32.7-35.6 [facility] RDW 14.0 % 11.5-14.0 [facility] Platelet count 70 x10E3/uL 150-450 [facility] MPV 12.2 fl 6.9-9.5 [facility] Neutrophils 89.4 % 34-64 [facility] Lymphocytes 6.2 % 25-45 [facility] Monocytes 3.4 % 1.7-10.6 [facility] Eosinophils 0.2 % 0.4-7.0 L [facility] Basophils 0.1 % 0.1-2.0 [facility] Imm. Gran. 0.7 % 0.1-2.0 [facility] Abs. Neutro. 10.88 x10E3/uL 1.2-7.6 [facility] Abs. Lymph. 0.75 x10E3/uL 1.0-3.5 [facility] Abs. Miner. 0.41 x10E3/uL 0.1-1.0 [facility] Abs. Eosin. 0.02 x10E3/uL 0.1-0.7 [facility] Abs. Baso. 0.01 x10E3/uL 0.0-0.1 [facility] Abs. Imm. Gran. 0.09 x10E3/uL 0.0-0.1 N [facility]ital ANRBC% 0 % 0 [facility] ID Date Data Source [id number] 09/01/2020 08:31:00 PM EST [facility] Name Value Range Interpretation Code Description Data Zahraa rce(s) Supporting Document(s) FGLU 380 mg/dL 70-110 [facility] ID Date Data Source [id number] 09/01/2020 07:03:00 PM EST [facility] Name Value Range Interpretation Code Description Data Zahraa rce(s) Supporting Document(s) FGLU 377 mg/dL 70-110 [facility] ID Date Data Source [id number] 09/01/2020 04:09:00 PM EST [facility] Exam Number: [id number] OF EXAMINATIO N: 09/01/2020 18:02 ESTU/S VENOUS DOPP ARM/LEG BILATHISTORY: Pain and swelling. Possible pulmonary embolusRIGHT LOWER EXTREMITY VENOUS DOPPLERDuplex scan was performed using B-mode/anand scale imaging and Dopplerspectral analysis and color flow.Common femoral and superficial femoral veins were interrogatedthroughout their course, revealing easy compressibility andappropriate augmentation. The popliteal vessels are also easilycompressible and show no signs of intraluminal thrombus formation.IMPRESSION:Negative study for deep venous thrombosis in the right lowerextremity.LEFT LOWER EXTREMITY VENOUS DOPPLERDuplex scan was performed using B-mode/anand scale imaging and Dopplerspectral analysis and color flow.Common femoral and superficial femoral veins were interrogatedthroughout their course, revealing easy compressibility andappropriate augmentation. The popliteal vessels are also easilycompressible and show no signs of intraluminal thrombus formation.Braun's cyst identified in the popliteal fossa measuring approximately3.4 x 1.1 x 2.2 cmIMPRESSION:Negative study for deep venous thrombosis in the left lower extremity.Braun's cyst.Electronically signed in [place] [facility] by: Christie Moon M.D. 09/01/2020 11:35EST Reported By: - Christie Buckley M.D. Signed By: Christie Buckley M.D. Name Value Range Interpretation Code Description Data Zahraa rce(s) Supporting Document(s) ID Date Data Source [id number] 09/01/2020 12:41:00 PM EST [facility] Name Value Range Interpretation Code Description Data Zahraa rce(s) Supporting Document(s) FGLU 288 mg/dL 70-110 [facility] ID Date Data Source [id number] 09/01/2020 11:40:00 [facility] [address] [id number] NOTEPATIENT NAME: ALIREZAJANICE PHYSICIAN: AMADO BAXTER MDAUTHOR: Noe Mendez. DATE: 08/31/20 MR#: [id number] NOTE DATE: 09/01/20 RM#: [id number] TIME: 1151 : 65See AddendumSubjectiveEvents Since Last EntryPatient seen and examined today. Reviewed. Patient admitted with COVID-19 aswell as rhinovirus. Patient here for remdesivir respiratory support. Glucosehas been persistently elevated and A1c is pending which should be followed upon. He was started on Levemir given that his a.m. glucose was 399. Patient'svital signs have been stable. Laboratory studies show slight increase in CRP.He is chronically anemic and thrombocytopenic due to cirrhosis. He is on thevitamin regimen. He continues on dexamethasone and azithromycin. His renalfunction is stable after CTA yesterday excluded PE. He is pending a Dopplerultrasound of both lower extremities to rule out DVT although I do doubt thisas he has no clinical signs. His D-dimer however was quite elevated. Thiswill be rechecked in the morning.ObjectiveVital SignsVital Signs-24 HRS08/31043 2215 0205 0646 0951Temp 97.4 97.5 97.3Pulse 92 67 65 63 55Resp 17 18 18B/P 128/78 107/52 104/51 104/52 116/91B/P MeanPulse Ox 96 97 95O2 DeliveryO2 Flow LpglOqO87 115587Dywu 97.4Pulse 57Resp 18B/P 109/53B/P MeanPulse Ox 96O2 DeliveryO2 Flow ZtsnZsC4Fknjon/OutputIntake/Output Summary 24 hours08/31 1900 09/01 0700Intake Total 2390 1760Output Total 800 400Balance 1590 1360Intake, IV 1310 960Intake, Oral 1080 800Number 2BowelMovementsNumber 3UnmeasuredVoidsOutput, Urine 800 400Current MedicationsFurosemide (Lasix) 20 MG 0800 PO (UNVr)Hydrocodone Bitart/ Acetaminophen (Vicodin 5-300 MG) 1 TAB Q8HPRN PRN PO(UNVr)Insulin Detemir (Levemir) 10 UNIT DAILY SUBCUTAcetylcysteine (Acetylcysteine) 600 MG BID INH (CAN)Azithromycin (Zithromax) 250 MG Q24H POAtorvastatin Calcium (Lipitor) 80 MG QHS POInsulin Aspart (Humalog Insulin) QHS Low dose sliding scaleQHS SUBCUTAlbuterol Sulfate (Ventolin) 1 PUFFBID INHCarvedilol (Coreg) 12.5 MG BID PODexamethasone (Decadron) 6 MG DAILY IVEnoxaparin Sodium (Lovenox) 40 MG DAILY SUBCUTFluoxetine HCl (Prozac) 20 MG DAILY POFolic Acid (Folvite) 1 MG DAILY POPantoprazole Sodium (Protonix) 40 MG DAILY PORemdesivir (VEKLURY) 100 MG DAILY IVSodium Chloride (NSS 0.9% 250ML) 250 MLSodium Chloride (Saline Flush Syr(5ML)) 5 ML Q12H IVTamsulosin HCl (Flomax) 0.4 MG BID POThiamine HCl (VITAMIN B1) 100 MG DAILY POTiotropium Fenton (Spiriva) 1 puffDAILY INHInsulin Aspart (Humalog Insulin) Low dose sliding scaleAC MEAL SUBCUTLorazepam (Ativan) 0.5 MG Q4HPRN PRN POGlucose (Insta- Glucose) 15 GM DAILY NEEDED PRN POOndansetron HCl (Zofran) 4 MG Q6HPRN PRN IVSodium Chloride (Saline Flush Syr(5ML)) 5 ML QIDPRN PRN IVMorphine Sulfate (Morphine Sulfate) 2 MG Q4HPRN PRN IVExamGeneral Appearance no acute distress, afebrile, alert, awake, face symmetrical,mental status normal, no respiratory distressHead atraumatic, normocephalicENT moist mucosal membranesNeck no JVD, suppleCardiovascular regular rate, no murmur, no gallop, no rub, normal heart soundsRespiratory decreased breath sounds, rales ( bilaterally)Abdomen soft, non-tender, no distention, no organomegaly, normal bowel sounds,no guarding, no reboundGenitourinary (male) no flank painUrinary no bladder distention, no flank painExtremities no clubbing, no cyanosis, no edema, normal pulsesMuscoskeletal normal inspectionNeurological alert, oriented x 3Skin AssessmentSkin dry, warmLymphatic no lymphadenopathyPsych/Mental Status normal affectResultsLaboratory DataRecent Labs-24 [id number] (136 - 147 mmol/L) 137Potassium (3.5 - 5.1 mmol/L) 4.1Chloride (99 - 110 mmol/L) 106Serum Bicarbonate (20 - 33 mmol/L) 21Anion Gap (10.0 - 20.0) 14.1BUN (7 - 23 mg/dL) 20Creatinine (0.500 - 1.300 mg/dL) 1.210Estimated GFR/1.73 m2 (mL/min) > 60Glucose (70 - 110 mg/dL) 350 HPOC Glucose (70 - 110 mg/dL) 349 HCalcium (8.3 - 10.7 mg/dL) 7.0 LMagnesium (1.6 - 2.6 mg/dL) 1.9Total Bilirubin (0.1 - 1.1 mg/dL) 0.4AST (8 - 40 U/L) 13ALT (6 - 54 U/L) 22Alkaline Phosphatase (45 - 117 U/L) 71C-Reactive Protein (0.0 - 0.49 mg/dL) 15.50 HTotal Protein (6.0 - 7.8 g/dL) 5.2 LAlbumin (3.5 - 5.0 g/dL) 2.6 LGlobulin (2.3 - 3.5 g/dL) 2.6Albumin/Globulin Ratio (1.0 - 2.5) 1.0HematologyWBC (4.0 - 10.5 x10E3/uL) 10.21RBC (4.70 - 6.00 x10E6/uL) 3.49 LHgb (14.0 - 18.0 g/dL) 10.9 LHct (42.0 - 52.0 %) 32.9 LMCV (81.0 - 99.0 fL) 94.3MCH (27.0 - 31.0 pg) 31.2 HMCHC (32.7 - 35.6 g/dL) 33.1RDW (11.5 - 14.0 %) 14.3 HPlt Count (150 - 450 x10E3/uL) 70 LMPV (6.9 - 9.5 fl) 11.7 HSeg Neuts % (Manual) (34 - 64 %) 82 HBand Neutrophils % (5 - 11 %) 8Lymphocytes % (Manual) (25 - 45 %) 6 LMonocytes % (Manual) (2 - 10 %) 4Platelet Morphology DECREASEDRBC Morphology 1+ [id number]/01 0522ChemistryPOC Glucose (70 - 110 mg/dL) 399 HHemoglobin A1c PendingRadiologyEXAM# TYPE/EXAM [id number] CT/CT ANGIO CHEST WITH IV FOR PDATE OF EXAMINATION: 08/31/2020 18:02 ESTCT ANGIO CHEST WITH IV FOR PEHISTORY: Code-19 positive and chest pain.TECHNIQUE:This CT exam was performed using the following dose reductiontechnique: automated exposure control, adjustment of mA and/or kVaccording to the patient's size, and use of iterative reconstructiontechnique.Axial contrast enhanced images from the thoracic inlet to the upperabdomen using pulmonary embolus technique and protocol.FINDINGS:Satisfactory enhancement of the pulmonary vasculature is achieved andno filling defects are identified to suggest pulmonary embolus. Largearea of consolidation in the left lower lobe along with patchyairspace disease and consolidations involving left upper lobe,lingula, right middle lobe, and right lower lobe most compatible withCovid-19 pulmonary disease. No effusion. No pneumothorax.Tracheobronchial tree is relatively patent. Mild reactive mediastinaladenopathy noted.Atherosclerotic changes to the thoracic aorta and coronary arteriesnoted without aortic aneurysm or dissection. No significantcardiomegaly or pericardial effusion. Surrounding musculoskeletalstructures are intact and without acute osseous abnormality. Upperabdomen demonstrates hepatosplenomegaly.IMPRESSION:Significant bilateral patchy areas of consolidation with largeconsolidation in the left lower lobe compatible with Covid-19pulmonary disease.No evidence for pulmonary embolus.PAGE 1 Signed Report Printed From [facility], [place] [address]MIBIJFRLSG CONSULTATIONDate of : 1965 Name: JANICE VERMA MMedrec Number: [id number] Phys: GISSELLE KAUFMAN CORN PRESS OPERATOR-CExam Date: 08/31/2020 Location: 2EASTProcedure: ANGIOCXRPE, CT ANGIO CHEST WITH IV Rad Numb: [id number] \\EXAM# TYPE/EXAM [id number] CT/CT ANGIO CHEST WITH IV FOR PElectronically signed in PS360 by: Christie Moon M.D. 08/31/202020:10 EST------ Reported By: Christie Buckley M.D.Results Reviewed labs reviewedAssessment/PlanProblem List1. Pneumonia due to COVID-19 virusA&PContinue remdesivir, azithromycin, dexamethasone, albuterol, Mucinex O2 asrequired. Patient has not been hypoxic but oxygen is available as needed. Hecontinues on daily labs.2. Severe sepsisStatus ResolvedA&PLactic acidosis resolved suspect this is due to respiratory demand possiblehypoxia on initial presentation. This is since resolved. Continue antibioticsand antivirals. Serial labs. CRP in a.m.3. Chest painStatus ResolvedA&PResolved. Will check troponin in a.m. for good measure.4. DiabetesA&PChecking A1c. Start Levemir 10 units daily. Titrate up as required. AC atbedtime fingersticks with sliding scale coverage.5. HyperlipidemiaA&PContinue statin. LFTs within normal limits.6. Chronic alcohol abuseA&PContinue folate and thiamine. Has not been drinking recently. Does havecirrhosis. He does have occasional fluid retention and I will continue hisLasix tomorrow. His potassium should be routinely checked and supplemented asrequired.7. HypertensionA&PContinue beta-yuni. Blood pressure is satisfactory.8. DepressionA&PContinue Prozac9. BPH (benign prostatic hyperplasia)A&PContinue Dryzbi54. HUMAN RHINOVIRUSA&PSupportive care.11. Elevated d-dimerA&PCTA ruled out PE. Doubt DVT in lower extremities however ultrasound ispending. This will need follow-up.Additional NotesDVT prophylaxis with LovenoxHe is on PPI for GI prophylaxis given his steroid useTotal time spent 35 minutesDisposition plan discharge after remdesivir complete.Resuscitation status Full codePlan discussed with patientCase discussed with returned case inspector, nursing staffADDENDUM: Gisselle Mendez on 09/01/20 at 1749EXAM# TYPE/EXAM [id number] US/U/S VENOUS DOPP ARM/LEG BILADATE OF EXAMINATION: 09/01/2020 18:02 ESTU/S VENOUS DOPP ARM/LEG BILATHISTORY: Pain and swelling. Possible pulmonary embolusRIGHT LOWER EXTREMITY VENOUS DOPPLERDuplex scan was performed using B-mode/anand scale imaging and Dopplerspectral analysis and color flow.Common femoral and superficial femoral veins were interrogatedthroughout their course, revealing easy compressibility andappropriate augmentation. The popliteal vessels are also easilycompressible and show no signs of intraluminal thrombus formation.IMPRESSION:Negative study for deep venous thrombosis in the right lowerextremity.LEFT LOWER EXTREMITY VENOUS DOPPLERDuplex scan was performed using B-mode/anand scale imaging and Dopplerspectral analysis and color flow.Common femoral and superficial femoral veins were interrogatedthroughout their course, revealing easy compressibility andappropriate augmentation. The popliteal vessels are also easilycompressible and show no signs of intraluminal thrombus formation.Braun's cyst identified in the popliteal fossa measuring approximately3.4 x 1.1 x 2.2 cmIMPRESSION:Negative study for deep venous thrombosis in the left lower extremity.Braun's cyst.DATE SIGNED: 09/01/20 Electronically SignedTIME SIGNED: 1749 GISSELLE BALDEMAR KAUFMAN Name Value Range Interpretation Code Description Data Zahraa rce(s) Supporting Document(s) ID Date Data Source [id number] 09/01/2020 05:29:00 AM EST [facility] Name Value Range Interpretation Code Description Data Zahraa rce(s) Supporting Document(s) FGLU 399 mg/dL 70-110 [facility] ID Date Data Source [id number] 09/01/2020 11:54:00 AM EST [facility] COMMENTS TO LAB: off am labs Name Value Range Interpretation Code Description Data Zahraa rce(s) Supporting Document(s) HbA1C 7.50 % 3.8-5.6 [facility] Suggested Diagnosis HbA1c% Diabet ic >/= 6.5Prediabetes 5.7%-6.4%Normal < 5.7% ID Date Data Source [id number] 09/01/2020 06:26:00 AM EST [facility] Name Value Range Interpretation Code Description Data Zahraa rce(s) Supporting Document(s) WBC 10.21 x10E3/uL 4.0-10.5 [facility] RBC 3.49 x10E6/uL 4.70-6.00 [facility] Hemoglobin 10.9 g/dL 14.0-18.0 [facility] Hematocrit 32.9 % 42.0-52.0 [facility] MCV 94.3 fL 81.0-99.0 [facility] MCH 31.2 pg 27.0-31.0 [facility] MCHC 33.1 g/dL 32.7-35.6 [facility] RDW 14.3 % 11.5-14.0 [facility] Platelet count 70 x10E3/uL 150-450 [facility] MPV 11.7 fl 6.9-9.5 [facility] SEG. NEUTROPHIL 82 % 34-64 [facility] BAND 8 % 5-11 [facility] LYMPHOCYTE 6 % 25-45 [facility] MONOCYTES 4 % 2-10 [facility] PLATELET MORPH DECREASED [facility] PLATELET MORPHOLOGY EXPECTED RESULT:NORM AL = NO REMARKABLE MORPHOLOGYAny findings other than Normal will be reported and areconsidered Abnormal. The significance of Abnormal findingsare to be clinically correlated by the provider. RBC MORPHOLOGY 1+ ANISOCYTOSIS N [facility] ospital RBC MORPHOLOGY EXPECTED RESULTS: NORMAL = NORMOCHROMIC, NORMOCYTIC CELLSAny findings other than Normal will be reported and areconsidered Abnormal. The significance of Abnormalfindings are to be clinically correlated by the provider. ID Date Data Source [id number] 09/01/2020 05:52:00 AM EST [facility] Name Value Range Interpretation Code Description Data Zahraa rce(s) Supporting Document(s) GLU 350 mg/dL 70-110 [facility] Patients taking Sulfasalazine may have f alsely depressedGlucose levels. Patients taking Sulfapyridine may havefalsely elevated Glucose levels. Patients should be drawnfor Glucose before the initial administration of eitherdrug. BUN 20 mg/dL 7-23 [facility] CRE 1.210 mg/dL 0.500-1.300 [facility] GFR > 60 mL/min [facility] CHLORIDE 106 mmol/L 99-110 [facility] NA 137 mmol/L 136-147 [facility] POTASSIUM 4.1 mmol/L 3.5-5.1 [facility] TCO2 21 mmol/L 20-33 [facility] ANION GAP 14.1 10.0-20.0 [facility] CA 7.0 mg/dL 8.3-10.7 [facility] ALKALINE PHOS 71 U/L 45-117 [facility] TP 5.2 g/dL 6.0-7.8 [facility] ALB 2.6 g/dL 3.5-5.0 [facility] ESRD Dialysis patient Albumin reference range: 2.9-4.4 g/dL GL 2.6 g/dL 2.3-3.5 [facility] A/G 1.0 1.0-2.5 [facility] T. BILIRUBIN 0.4 mg/dL 0.1-1.1 [facility] The [employer] [place] Total Bilirubin is n ot recommended forpatients undergoing treatment with eltrombopag (Promacta)due to the potential for falsely elevated results. ALTI 22 U/L 6-54 [facility] Patients taking Sulfasalazine and/or Sul fapyridine may havefalsely depressed ALT levels. Patients should be drawn forALT before the initial administration of either drug. AST 13 U/L 8-40 [facility] Patients taking Sulfasalazine and/or Sul fapyridine may havefalsely depressed AST levels. Patients should be drawn forAST before the initial administration of either drug. ID Date Data Source [id number] 09/01/2020 05:49:00 AM EST [facility] Name Value Range Interpretation Code Description Data Zahraa rce(s) Supporting Document(s) C-REACTIVE PROT 15.50 mg/dL 0.0-0.49 [facility] ital ID Date Data Source [id number] 09/01/2020 05:49:00 AM EST [facility] Name Value Range Interpretation Code Description Data Zahraa rce(s) Supporting Document(s) MAGNESIUM 1.9 mg/dL 1.6-2.6 [facility] ID Date Data Source [id number] 08/31/2020 08:22:00 PM EST [facility] Exam Number: [id number] OF EXAMINATIO N: 08/31/2020 18:02 ESTCT ANGIO CHEST WITH IV FOR PEHISTORY: Code-19 positive and chest pain.TECHNIQUE:This CT exam was performed using the following dose reductiontechnique: automated exposure control, adjustment of mA and/or kVaccording to the patient's size, and use of iterative reconstructiontechnique.Axial contrast enhanced images from the thoracic inlet to the upperabdomen using pulmonary embolus technique and protocol.FINDINGS:Satisfactory enhancement of the pulmonary vasculature is achieved andno filling defects are identified to suggest pulmonary embolus. Largearea of consolidation in the left lower lobe along with patchyairspace disease and consolidations involving left upper lobe,lingula, right middle lobe, and right lower lobe most compatible withCovid-19 pulmonary disease. No effusion. No pneumothorax.Tracheobronchial tree is relatively patent. Mild reactive mediastinaladenopathy noted.Atherosclerotic changes to the thoracic aorta and coronary arteriesnoted without aortic aneurysm or dissection. No significantcardiomegaly or pericardial effusion. Surrounding musculoskeletalstructures are intact and without acute osseous abnormality. Upperabdomen demonstrates hepatosplenomegaly.IMPRESSION:Significant bilateral patchy areas of consolidation with largeconsolidation in the left lower lobe compatible with Covid-19pulmonary disease.No evidence for pulmonary embolus.Electronically signed in PS360 by: Christie Moon M.D. 08/31/202020:10 EST Reported By: - Christie Buckley M.D. Signed By: Christie Buckley M.D. Name Value Range Interpretation Code Description Data Zahraa rce(s) Supporting Document(s) ID Date Data Source [id number] 08/31/2020 04:57:00 PM EST [facility] Name Value Range Interpretation Code Description Data Zahraa rce(s) Supporting Document(s) FGLU 349 mg/dL 70-110 [facility] ID Date Data Source [id number] 08/31/2020 01:26:00 PM EST [facility] Name Value Range Interpretation Code Description Data Zahraa rce(s) Supporting Document(s) FGLU 231 mg/dL 70-110 [facility] ID Date Data Source [id number] 09/05/2020 12:42:00 PM EST [facility] Name Value Range Interpretation Code Description Data Zahraa rce(s) Supporting Document(s) [facility] ID Date Data Source [id number] 09/05/2020 12:42:00 PM EST [facility] Name Value Range Interpretation Code Description Data Zahraa rce(s) Supporting Document(s) [facility] ID Date Data Source [id number] 08/31/2020 08:42:00 AM EST [facility] Name Value Range Interpretation Code Description Data Zahraa rce(s) Supporting Document(s) LACTIC ACID 2 2.0 MMOL/L 0.4-2.0 N [facility] l ID Date Data Source [id number] 08/31/2020 05:54:00 AM EST [facility] Name Value Range Interpretation Code Description Data Zahraa rce(s) Supporting Document(s) FGLU 301 mg/dL 70-110 [facility] ID Date Data Source [id number] 08/31/2020 05:29:00 AM EST [facility] Name Value Range Interpretation Code Description Data Zahraa rce(s) Supporting Document(s) WBC 13.84 x10E3/uL 4.0-10.5 H [facility] l RBC 3.77 x10E6/uL 4.70-6.00 [facility] Hemoglobin 11.6 g/dL 14.0-18.0 [facility] Hematocrit 34.9 % 42.0-52.0 [facility] MCV 92.6 fL 81.0-99.0 [facility] MCH 30.8 pg 27.0-31.0 [facility] MCHC 33.2 g/dL 32.7-35.6 [facility] RDW 14.4 % 11.5-14.0 [facility] Platelet count 82 x10E3/uL 150-450 [facility] MPV 11.8 fl 6.9-9.5 [facility] ANRBC% 0 % 0 [facility] SEG. NEUTROPHIL 82 % 34-64 [facility] BAND 5 % 5-11 [facility] LYMPHOCYTE 8 % 25-45 [facility] MONOCYTES 5 % 2-10 [facility] PLATELET MORPH DECREASED N [facility] l PLATELET MORPHOLOGY EXPECTED RESULT:NORM AL = NO REMARKABLE MORPHOLOGYAny findings other than Normal will be reported and areconsidered Abnormal. The significance of Abnormal findingsare to be clinically correlated by the provider. ID Date Data Source [id number] 08/31/2020 05:11:00 AM EST [facility] Name Value Range Interpretation Code Description Data Zahraa rce(s) Supporting Document(s) MAGNESIUM 1.7 mg/dL 1.6-2.6 [facility] ID Date Data Source [id number] 08/31/2020 05:11:00 AM EST [facility] Name Value Range Interpretation Code Description Data Zahraa rce(s) Supporting Document(s) MELISSA 2.7 mg/dL 2.5-4.5 [facility] ID Date Data Source [id number] 08/31/2020 05:11:00 AM EST [facility] Name Value Range Interpretation Code Description Data Zahraa rce(s) Supporting Document(s) TROPI < 0.015 ng/mL 0.000-0.079 [facility] Date Data Source [id number] 08/31/2020 05:11:00 AM EST [facility] Name Value Range Interpretation Code Description Data Zahraa rce(s) Supporting Document(s) C-REACTIVE PROT 11.70 mg/dL 0.0-0.49 [facility] ital ID Date Data Source [id number] 08/31/2020 05:11:00 AM EST [facility] Name Value Range Interpretation Code Description Data Zahraa rce(s) Supporting Document(s) GLU 296 mg/dL 70-110 [facility] Patients taking Sulfasalazine may have f alsely depressedGlucose levels. Patients taking Sulfapyridine may havefalsely elevated Glucose levels. Patients should be drawnfor Glucose before the initial administration of eitherdrug. BUN 18 mg/dL 7-23 [facility] CRE 1.220 mg/dL 0.500-1.300 [facility] GFR > 60 mL/min [facility] CHLORIDE 105 mmol/L 99-110 [facility] NA 136 mmol/L 136-147 [facility] POTASSIUM 4.7 mmol/L 3.5-5.1 [facility] TCO2 22 mmol/L 20-33 [facility] ANION GAP 13.7 10.0-20.0 [facility] CA 7.2 mg/dL 8.3-10.7 [facility] ALKALINE PHOS 71 U/L 45-117 [facility] TP 6.0 g/dL 6.0-7.8 [facility] ALB 2.9 g/dL 3.5-5.0 [facility] ESRD Dialysis patient Albumin reference range: 2.9-4.4 g/dL GL 3.1 g/dL 2.3-3.5 [facility] A/G 0.9 1.0-2.5 [facility] T. BILIRUBIN 0.4 mg/dL 0.1-1.1 [facility] [employer] [place] Total Bilirubin is n ot recommended forpatients undergoing treatment with eltrombopag (Promacta)due to the potential for falsely elevated results. ALTI 37 U/L 6-54 [facility] Patients taking Sulfasalazine and/or Sul fapyridine may havefalsely depressed ALT levels. Patients should be drawn forALT before the initial administration of either drug. AST 27 U/L 8-40 [facility] Patients taking Sulfasalazine and/or Sul fapyridine may havefalsely depressed AST levels. Patients should be drawn forAST before the initial administration of either drug. ID Date Data Source [id number] 08/31/2020 05:05:00 AM EST [facility] Name Value Range Interpretation Code Description Data Zahraa rce(s) Supporting Document(s) TROPI < 0.015 ng/mL 0.000-0.079 [facility] Date Data Source [id number] 08/31/2020 04:57:00 AM EST [facility] Name Value Range Interpretation Code Description Data Zahraa rce(s) Supporting Document(s) LACTIC ACID JANIA 2.6 mmol/L 0.4-2.0 [facility] ID Date Data Source [id number] 08/31/2020 04:56:00 AM EST [facility] Name Value Range Interpretation Code Description Data Zahraa rce(s) Supporting Document(s) D-DIMER 1.79 mg/L [facility] CUT OFF VALUE = 0.5 mg/L The negative pr edictive value for DVT or PE is at 98% whenthe result is below the cut off. ID Date Data Source [id number] 08/31/2020 03:33:00 AM EST [facility] [address] [address]KGNNRWA AND PHYSICALPATIENT NAME: JANICE VERMA MR#: [id number] PHYSICIAN: AMADO BAXTER MDAUTHOR: Amado Baxter MD DATE: 08/31/20 RM#: [id number] & PHYSICAL DATE: 08/31/20 : 65EVALUATION TIME: 0438HistoryChief Complaint/Admit ReasonChest pain and shortness of breathHistory of Presenting [id number] male with a past medical history of diabetes, chronicalcohol abuse, cirrhosis, depression, GERD, BPH, hypertension, hematemesispresented to the ED at [facility] with complaints of centrally locatedchest pain scribed as dull and sharp 8 out of 10 and shortness of breath whichstarted yesterday but has worsened to the point where he needed to be evaluatedin the ER. Reported to me chest pain does not radiate and there are nodiaphoresis. There was some nausea and bilious vomiting x1. EKG at [facility] showed nonspecific ST/T wave changes, troponin was negative. At [facility] patient was found on chest x-ray and CT of the chest without IVcontrast to have multi focal consolidations consistent with pneumonia likelyCOVID-19 pulmonary disease. Patient tested positive for COVID-19, and humanrhinovirus also found with severe sepsis given IV fluids at [facility].Patient's O2 saturation ranges in the mid 90s on room air. Temperature of99.5. Lactic acid of 4.8. Ferritin 171. VBG with pH of 7.3, PCO2 of 30.7,PO2 of 58. Denies any abdominal pain, palpitations, diarrhea, h eadache,dizziness or lightheadedness. Patient was given remdesivir, dexamethasone,ceftriaxone, azithromycin, Xopenex, aspirin, morphine and IV fluids at [facility] and transferred to [facility] for further management.Past Medical/Surgical HistoryPast Medical/Surgical HistoryMedical ProblemsBPH (benign prostatic hyperplasia)Chest painChronic alcohol abuseDepressionDiabetesHUMAN RHINOVIRUSHyperlipidemiaHypertensionPneumonia due to COVID-19 virusSevere sepsisReconciled Home Med ListSee Reconciled Home Medication ListAllergiesCoded Allergies:niacin (Intermediate, FACIAL REDDNESS/ITCHING 04/17/17)Family history Father from an SD at age of 68.Social History no recreational drug use, alcohol use ( chronic alcohol abuse),smoker ( 1 pack a day for 35 years)Review of SystemsConstitutionalReports: Pain ( chest), Malaise. Denies: Fever, Chills.SkinDenies: diaphoresis.EyesDenies: visual loss/blurred.ENTDenies: sore throat.RespiratoryReports: dyspnea, productive cough, shortness of breath.CardiovascularReports: chest pain, dyspnea on exertion.GastrointestinalReports: nausea, vomiting. Denies: abdominal pain, diarrhea.GenitorurinaryDenies: dysuria, flank pain.MusculoskeletalDenies: joint pain.HematologyDenies: bleeding.EndocrineDenies: polydipsia, polyuria.NeurologicalDenies: dizziness, seizure.PsychDenies: agitation, anxiety.ExamVital SignsVital Signs-24 HRS12/179986Bfwt 97.8Pulse 75Resp 17B/P 118/72B/P MeanPulse Ox 94O2 DeliveryO2 Flow [id number] ExaminationGeneral Appearance no acute distress, afebrile, alert, awake, face symmetrical,mental status normal, no respiratory distressHead atraumatic, normocephalicENT moist mucosal membranesEye AssessementAssessment: EOMI, normal scleraNeck no JVD, suppleCardiovascular regular rate, no murmur, no gallop, no rub, normal heart soundsRespiratory decreased breath sounds, rales ( bilaterally)Abdomen soft, non-tender, no distention, no organomegaly, normal bowel sounds,no guarding, no reboundUrinary no bladder distention, no flank painGenitourinary (male) no flank painExtremities no clubbing, no cyanosis, no edema, normal pulsesMuscoskeletal normal inspectionNeurological alert, oriented x 3Skin AssessmentSkin dry, warmPsych/Mental Status normal affectData ReviewLaboratory DataLaboratory data from [facility] 08[facility].WBC 19.7, hemoglobin 12.9 hematocrit 37.6, platelets 119, band anemia 6%Sodium 130, potassium 4.8, chloride 95, CO2 18, calcium 8.4, anion gap of 17.0,GFR of 60, AST is 46 ALT 45, alkaline phosphatase 86, total bilirubin 0.4,total protein 7.3, albumin 3.8, lipase 123, troponin less than 0.17, magnesium1.8, TSH 0.86, free T4 1.0, PT 10.9, INR 1.05, PTT 26.0Respiratory panel was positive for SARS-CoV-2/COVID-19 and human rhinovirus.Imaging1. Chest x-ray report from [facility] done 08/30/2020:Findings:Patchy bilateral lower lobe infiltrates left greater than right most concerningfor multifocal pneumonia. COVID-19 pulmonary disease cannot be excluded. Noeffusion. No pneumothorax. The sternum and cardiac silhouette are normal.Impression:Findings consistent with multifocal pneumonia. Patient should be evaluated forCOVID-[address] of the chest without IV contrast done at [facility] on 08/30/2020.Findings:Diffuse patchy bilateral areas of consolidation in the primarily peripheraldistribution and most notably involving the left lower lobe consistent withmultifocal pneumonia and COVID-19 pulmonary disease. Mild prominent reactivelymph nodes are suggested. No effusion. No pneumothorax. Tracheol bronchialtree is patent.Further evaluation of the mediastinum demonstrates relatively normal stablethoracic aorta, pulmonary vasculature, and heart/pericardium. No cardiomegalyor pericardial effusion. Surrounding musculoskeletal structures demonstratestable age-related changes. Upper abdomen demonstrates normal bilateraladrenal glands.Impression:Multifocal consolidations consistent with pneumonia and likely reflect COVID-19pulmonary disease.Cardiology/EKGKG: Sinus arrhythmia rate ofAssessment/PlanDiagnosis/Problem1. Pneumonia due to COVID-19 virusA&PPneumonia secondary to COVID-19, severe sepsis. Elevated lactic acid.-Continue with rem desivir-Continue with dexamethasone-Continue with ceftriaxone and azithromycin- Start Spiriva and albuterol inhaler-Check D-dimer and CRP-IV fluid hydration.2. Severe sepsisA&PSame as in treatment #1 above.3. Chest painA&PPatient given 324 mg of chewable aspirin at [facility]. EKG withnonspecific ST-T wave changes. Troponin was negative at [facility].-We will cycle troponin- Monitor on telemetry every 4 vital signs.-Morphine as needed for pain4. DiabetesA&PPatient placed on insulin sliding scale. Monitor fingersticks.5. Chronic alcohol abuseA&PChronic alcohol abuse. Last drink yesterday.-Place patient on [facility] protocol-Start folic acid, thiamine. Will hold a multivitamin as patient does haveallergies to niacin.6. HyperlipidemiaA&PContinue with statin7. HypertensionA&PTinea with beta-yuni and monitor blood pressure. Blood pressure currentlyacceptable.8. DepressionA&PContinue fluoxetine and quetiapine9. BPH (benign prostatic hyperplasia)A&PContinue with Flomax.10. HUMAN RHINOVIRUSA&PSupportive care.Resuscitation status Full codePlan discussed with patientCase discussed with nursing staffCopies ToCopies to Family Provider: ANNE-MARIE BRENNAN FNPSmo Cessation Counseling* I have counseled the patient on the dangers of tobacco use for 4 minutes.* The patient was advised to quit tobacco use. I reviewed the variousstrategies of quitting with the patient.VTE ProphylaxisVTE Prophylaxis: Lovenox.CQM VTE HISTORYVTE HISTORYPrior VTE? NoDATE SIGNED: 09/03/20 Electronically SignedTIME SIGNED: 08 AMADO BAXTER MD Name Value Range Interpretation Code Description Data Zahraa rce(s) Supporting Document(s) ID Date Data Source [id number] 08/30/2020 09:53:00 PM [facility] TSYSORDER [id number] Name Value Range Interpretation Code Description Data Zahraa rce(s) Supporting Document(s) LACTIC ACID 2.3 mmol/L 0.4-2.0 H [facility] ID Date Data Source [id number] 08/30/2020 06:54:00 PM EST [facility] DATE OF EXAMINATION: 08/30/2020 17:47 ES T CHEST W/O IV CONTRAST HISTORY: Chest pain and dyspnea. Covid 19 positive. COMPARISON: 07/05/2020 TECHNIQUE: This CT exam was performed using the following dose reduction techniques:automatic exposure control, adjustment of mA and/or kV according to thepatient's size, and use of iterative reconstruction technique. Standard contiguous axial spiral imaging was obtained from lung apices to thelung bases without intravenous contrast administration and with coronalreformatting. FINDINGS: Diffuse patchy bilateral areas of consolidation in a primarily peripheraldistribution and most notably involving the left lower lobe consistent withmultifocal pneumonia and Covid-19 pulmonary disease. Mildly prominent reactivelymph nodes are suggested. No effusion. No pneumothorax. Tracheal bronchial treeis patent. Further evaluation of the mediastinum demonstrates relatively normal stablethoracic aorta, pulmonary vasculature, and heart/pericardium. No cardiomegaly orpericar dial effusion. Surrounding musculoskeletal structures demonstrate stableage- related changes. Upper abdomen demonstrates normal bilateral adrenal glands. IMPRESSION:Multifocal consolidations consistent with pneumonia and likely reflect Covid-19pulmonary disease. Electronically signed in PS360 by: Christie Moon M.D. 08/30/2020 18:48 EST Name Value Range Interpretation Code Description Data Zahraa rce(s) Supporting Document(s) ID Date Data Source [id number] 08/30/2020 05:57:00 PM EST [facility] DATE OF EXAMINATION: 08/30/2020 15:17 ES T CHEST 1 VIEW HISTORY: Chest pain TECHNIQUE: Single frontal radiograph of chest COMPARISON: 04/30/2017 FINDINGS: Patchy bilateral lower lobe infiltrates (left greater than right) mostconcerning for multifocal pneumonia. Covid-19 pulmonary disease cannot beexcluded. No effusion. No pneumothorax. Mediastinum and cardiac silhouette arenormal. IMPRESSION: Findings consistent with multifocal pneumonia. Patient should be evaluated forCovid-19 disease. Electronically signed in PS360 by: Christie Moon M.D. 08/30/2020 17:51 EST Name Value Range Interpretation Code Description Data Zahraa rce(s) Supporting Document(s) ID Date Data Source [id number] 08/30/2020 06:07:00 PM EST [facility] TSYSORDER [id number] Name Value Range Interpretation Code Description Data Zahraa rce(s) Supporting Document(s) PH 7.33 7.31-7.41 [facility] VENOUS PCO2 30.7 mmHg 41-51 [facility] VENOUS PO2 58 mmHg 35-42 [facility] VENOUS BLODD O2 SATURATION 81.5 % 68-77 [facility] VEN[facility] BLOOD HCO3 15.6 meq/L 24.0-25.0 [facility] VENOUS BASE EXCESS -8.8 -3.0-3.0 [facility] VENOUS BLOOD CO2 16.6 mmol/L 23.0-32.0 [facility] ID Date Data Source [id number] 09/06/2020 11:33:00 AM EST [facility] Name Value Range Interpretation Code Description Data Zahraa rce(s) Supporting Document(s) [facility] ID Date Data Source [id number] 09/06/2020 11:33:00 AM EST [facility] Name Value Range Interpretation Code Description Data Zahraa rce(s) Supporting Document(s) [facility] ID Date Data Source [id number] 08/30/2020 03:35:00 PM EST [facility] Name Value Range Interpretation Code Description Data Zahraa rce(s) Supporting Document(s) SARS COV2 TRP [facility] This lab was ordered by [facility] and reported by [facility]. ID Date Data Source [id number] 08/30/2020 05:19:00 PM EST [facility] TSYSORDER [id number] Name Value Range Interpretation Code Description Data Zahraa rce(s) Supporting Document(s) FERRITIN 171 ng/mL 26-388 [facility] ID Date Data Source [id number] 08/30/2020 05:11:00 PM EST [facility] TSYSORDER [id number] Name Value Range Interpretation Code Description Data Zahraa rce(s) Supporting Document(s) LACTIC ACID 4.8 mmol/L 0.4-2.0 H [facility] ID Date Data Source [id number] 08/30/2020 05:06:00 PM EST [facility] TSYSORDER [id number] Name Value Range Interpretation Code Description Data Zahraa rce(s) Supporting Document(s) C REACTIVE PROTEIN 11.5 mg/L 0.0-3.0 H [facility] ID Date Data Source [id number] 08/30/2020 05:06:00 PM EST [facility] TSYSORDER [id number] Name Value Range Interpretation Code Description Data Zahraa rce(s) Supporting Document(s) CREATINE PHOSPHOKINASE 164 U/L 39-308 [facility] ID Date Data Source [id number] 08/30/2020 04:28:00 PM EST [facility] TSYSORDER [id number] Name Value Range Interpretation Code Description Data Zahraa rce(s) Supporting Document(s) GLUCOSE 280 mg/dL 74-106 H [facility] BLOOD UREA NITROGEN 20 mg/dL 7-18 H [facility] ital CREATININE 1.25 mg/dL 0.7-1.3 [facility] SODIUM 130 mmol/L 136-145 L [facility] POTASSIUM 4.8 mmol/L 3.5-5.1 [facility] CHLORIDE 95 mmol/L 98-107 L [facility] CO2 18 mmol/L 21-32 L [facility] CALCIUM 8.4 mg/dL 8.5-10.1 L [facility] ANION GAP 17.0 mmol/L 5-12 H [facility] GLOMERULAR FILTRATION RATE 60 mL/min [facility] GFR IS CALCULATED IN mL/min/1.73m2 VINICIUS L FUNCTION: >90MILDLY DECREASED: 60-89MILDY TO MODERATELY DECREASED: 45-59 MODERATELY TO SEVERELY DECREASED: 30-44SEVERELY DECREASED: 15-29RENAL FAILURE: <15 AST 46 U/L 15-37 H [facility] ALT 45 U/L 12-78 [facility] ALKALINE PHOSPHATASE 86 U/L 46-116 [facility] pital TOTAL BILIRUBIN 0.4 mg/dL 0.2-1.0 [facility] TOTAL PROTEIN 7.3 g/dl 6.4-8.2 [facility] ALBUMIN 3.8 gm/dL 3.4-5.0 [facility] ID Date Data Source [id number] 08/30/2020 04:21:00 PM EST [facility] TSYSORDER [id number] Name Value Range Interpretation Code Description Data Zahraa rce(s) Supporting Document(s) FREE T4 1.0 ng/dL 0.76-1.46 [facility] ID Date Data Source [id number] 08/30/2020 04:21:00 PM EST [facility] [id number] Name Value Range Interpretation Code Description Data Zahraa rce(s) Supporting Document(s) TSH 0.868 uIU/mL 0.36-3.74 [facility] ID Date Data Source [id number] 08/30/2020 04:19:00 PM EST [facility] Name Value Range Interpretation Code Description Data Zahraa rce(s) Supporting Document(s) PARTIAL THROMBOPLASTIN TIME 26.0 SECONDS 21.2-27.3 [facility] ID Date Data Source [id number] 08/30/2020 04:19:00 PM EST [facility] Name Value Range Interpretation Code Description Data Zahraa rce(s) Supporting Document(s) PROTHROMBIN TIME (PATIENT) 10.9 SECONDS 9.1-11.6 [facility] INR 1.05 0.87-1.06 [facility] ID Date Data Source [id number] 08/30/2020 03:16:00 PM [facility] TSYSORDER [id number] Name Value Range Interpretation Code Description Data Zahraa rce(s) Supporting Document(s) NEUTROPHILS 87 % 50-80 H [facility] BAND 6 % 0-5 H [facility] LYMPHOCYTE 4 % 25-50 L [facility] MONOCYTE 3 % 2.0-10.0 [facility] PLATELET ESTIMATE DECREASED NORMAL [facility] al RBC MORPHOLOGY EXPECTED RESULTS:NORMAL= NORMOCHROMIC, NORMOCYTIC CELLSAbnormal Morphologic Findings > or = to 1+ are reported.Clinicopathologic correlation by the provider is required todetermine significance of finding. ID Date Data Source [id number] 08/30/2020 04:17:00 PM [facility] TSYSORDER [id number] Name Value Range Interpretation Code Description Data [facility] rce(s) Supporting Document(s) WHITE BLOOD COUNT 19.7 K/mm3 4.0-10.0 H [facility] RED BLOOD COUNT 4.16 M/mm3 4.50-6.00 L [facility] HEMOGLOBIN 12.9 gm/dL 14.0-18.0 L [facility] HEMATOCRIT 37.6 % 42.0-54.0 L [facility] MEAN CELL VOLUME 90.4 fl 80-96 [facility] MEAN CORPUSCULAR HEMOGLOBIN 31.0 pg 27.0-31.0 H [facility] MEAN CORPUSCULAR HGB CONC 34.3 g/dl 32.0-36.0 [facility] RED CELL DISTRIBUTION WIDTH 14.0 % 10.0-14.5 [facility] PLATELET COUNT 119 K/mm3 172-450 L [facility] MEAN PLATELET VOLUME 11.4 fl 9.0-13.0 [facility] pital GRAN % 92.7 % 50-80.0 H [facility] IG% 0.3 % 0.0-0.2 [facility] LYMPH % 2.1 % 25.0-50.0 *L [facility] MONO % 4.9 % 2.0-10.0 [facility] EOS % 0.0 % 0-5.0 [facility] BASO % 0.0 % 0.0-2.0 [facility] GRAN # 18.2 K/mm3 2.0-8.00 *H [facility] IG# 0.1 K/mm3 0.0-0.2 [facility] LYMPH # 0.4 K/mm3 1.0-5.0 L [facility] MONO # 1.0 K/mm3 0.10-1.20 [facility] EOS # 0.0 K/mm3 0.0-0.5 [facility] BASO # 0.0 K/mm3 0.0-0.2 [facility] ID Date Data Source [id number] 08/30/2020 04:45:00 PM EST [facility] TSYSORDER [id number] Name Value Range Interpretation Code Description Data Zahraa rce(s) Supporting Document(s) Adenovirus Not Detected Detected Not [facility]ital Coronavirus 229E Not Detected Detected Not [facility] Coronavirus HKU1 Not Detected Detected Not [facility] Coronavirus NL63 Not Detected Detected Not [facility] Coronavirus OC43 Not Detected Detected Not [facility] Sars Cov 2 DETECTED Detected Not [facility] Human Metapneumovirus Not Detected Detected [facility] Human Rhinovirus DETECTED Detected [facility] Influenza A Not Detected Detected [facility] Influenza B Not Detected Detected Not [facility] Parainfluenza Virus [address] [facility] Parainfluenza Virus 2 Not Detected Detected Not [facility] Parainfluenza Virus [address] [facility] Parainfluenza Virus 4 Not Detected Detected Not [facility] Respiratory Syncytial Virus Not Detected Detected Not [facility] Bordetella parapertus (IC3236) Not Detected Detected Not [facility] Bordetella pertussis (ptxP) Not Detected Detected Not [facility] Chlamydia pneumoniae Not Detected Detected Not [facility] Mycoplasma pneumoniae Not Detected Detected Not [facility] The Above results have been determined b y using the [employer] system.FilmArray is an automated in vitro diagnostic system thatutilizes nested multiplex Polymerase Chain Reaction (PCR)and high-resolution melting analysis to detect and identifymultiple nucleic acid targets from clinical specimens. ID Date Data Source [id number] 08/30/2020 04:28:00 PM EST [facility] TSYSORDER [id number] Name Value Range Interpretation Code Description Data Zahraa rce(s) Supporting Document(s) MAGNESIUM 1.8 mg/dL 1.8-2.4 [facility] ID Date Data Source [id number] 08/30/2020 04:28:00 PM EST [facility] TSYSORDER [id number] Name Value Range Interpretation Code Description Data Zahraa rce(s) Supporting Document(s) TROPONIN I < 0.017 ng/mL 0.0-0.056 [facility] ID Date Data Source [id number] 08/30/2020 04:28:00 PM EST [facility] TSYSORDER [id number] Name Value Range Interpretation Code Description Data Zahraa rce(s) Supporting Document(s) LIPASE 123 U/L 73-393 [facility] ID Date Data Source [id number] 08/18/2020 11:00:00 PM EST [facility] Name Value Range Interpretation Code Description Data Zahraa rce(s) Supporting Document(s) SARS coronavirus 2 RNA [Presence] in Res piratory specimen by DILLON with probe detection [facility] This lab was ordered by [facility] a nd reported by [facility]. ID Date Data Source [id number] 08/09/2020 09:20:00 AM EST [facility] Name Value Range Interpretation Code Description Data Zahraa rce(s) Supporting Document(s) SARS coronavirus 2 RNA [Presence] in Res piratory specimen by DILLON with probe detection [facility] This lab was ordered by [facility] a nd reported by [facility]. ID Date Data Source [id number] 07/13/2020 05:03:06 PM EST [facility] Name Value Range Interpretation Code Description Data Zahraa rce(s) Supporting Document(s) Discharge Summary [facility] [id number] lbm [file] [id number] ID Date Data Source [id number] 07/10/2020 12:00:27 PM [facility] Name Value Range Interpretation Code Description Data Zahraa rce(s) Supporting Document(s) Glucose [Mass/volume] in Capillary blood by Glucometer 229 mg/dL 70- 140 H [facility] ID Date Data Source [id number] 07/10/2020 09:43:36 AM [facility] Name Value Range Interpretation Code Description Data Zahraa rce(s) Supporting Document(s) Glucose [Mass/volume] in Capillary blood by Glucometer 203 mg/dL 70- 140 H [facility] ID Date Data Source [id number] 07/10/2020 04:22:11 AM [facility] Name Value Range Interpretation Code Description Data Zahraa rce(s) Supporting Document(s) Leukocytes [#/volume] in Blood by Automated count 3.9 10*3/uL 4-10 L [facility] Erythrocytes [#/volume] in Blood by Automated count 3.40 10*6/uL 4.6- 6.1 L [facility] Hemoglobin [Mass/volume] in Blood 10.7 g/dL 13.5-18 L [facility] Hematocrit [Volume Fraction] of Blood by Automated count 31.6 % 4 1-53 L [facility] Erythrocyte mean corpuscular volume [Entitic volume] by Auto mated count 92.8 fL 80-96 [facility] Erythrocyte mean corpuscular hemoglobin [Entitic mass] by Automated count 31.4 pg 27-33 [facility] Erythrocyte mean corpuscular hemoglobin concentration [Mass/volume] by Automated count 33.8 g/dL 32.0-36.[facility] distribution width [Ratio] by Automated count 14.5 % 11.5-14.5 [facility] Platelets [#/volume] in Blood by Automated count 58 10*3/uL 150-400 L [facility] Differential cell count method - Blood [facility] Neutrophils/100 leukocytes in Blood by Automated count 59 % [facility] Lymphocytes/100 leukocytes in Blood by Automated count 26 % [facility] Monocytes/100 leukocytes in Blood by Automated count 12 % [facility] Eosinophils/100 leukocytes in Blood by Automated count 2 % [facility] Basophils/100 leukocytes in Blood by Automated count 1 % [facility] Neutrophils [#/volume] in Blood by Automated count 2.31 10*3/uL 1.8-7 .0 [facility] Lymphocytes [#/volume] in Blood by Automated count 1.02 10*3/uL 1.2-4 .0 L [facility] Monocytes [#/volume] in Blood by Automated count 0.47 10*3/uL 0-0.8 [facility] Eosinophils [#/volume] in Blood by Automated count 0.10 10*3/uL 0-0.5 [facility] Basophils [#/volume] in Blood by Automated count 0.03 10*3/uL 0-0.2 [facility] Nucleated erythrocytes/100 leukocytes [Ratio] in Blood by Automated count 0 /100{WBCs} 0-0 [facility] ID Date Data Source [id number] 07/10/2020 04:44:03 AM [facility] Name Value Range Interpretation Code Description Data Zahraa rce(s) Supporting Document(s) Phosphate [Mass/volume] in Serum or Plasma 2.4 mg/dL 2.5-4.5 [facility] ID Date Data Source [id number] 07/10/2020 04:44:03 AM [facility] Name Value Range Interpretation Code Description Data Zahraa rce(s) Supporting Document(s) Albumin [Mass/volume] in Serum or Plasma by Bromocresol green (BCG) dye binding method 3.2 g/dL 3.5-5.2 [facility] Bil[facility].total [Mass/volume] in Serum or Plasma 0.4 mg/dL <1.2 [facility] Calcium [Mass/volume] in Serum or Plasma 8.0 mg/dL 8.6-10.0 [facility] Chloride [Moles/volume] in Serum or Plasma 107 mmol/L 98-107 [facility] Creatinine [Mass/volume] in Serum or Plasma 0.75 mg/dL 0.70-1.20 [facility] Glucose [Mass/volume] in Serum or Plasma 122 mg/dL 70-140 [facility] Alkaline phosphatase [Enzymatic activity/volume] in Serum or Plasma 55 U/L 40-129 [facility] Potassium [Moles/volume] in Serum or Plasma 3.6 mmol/L 3.4-5.1 [facility] Protein [Mass/volume] in Serum or Plasma 5.1 g/dL 6.4-8.3 [facility] Sodium [Moles/volume] in Serum or Plasma 141 mmol/L 136-145 [facility] Aspartate aminotransferase [Enzymatic activity/volume] in Serum or Plasma 37 U/L <40 [facility] Urea nitrogen [Mass/volume] in Serum or Plasma 4 mg/dL 6-20 [facility] Osmolality of Serum or Plasma by calculation 290 mosm/kg 275-300 [facility] Creatinine/Urea nitrogen [Mass Ratio] in Serum or Plasma 6 [facility] Bicarbonate [Moles/volume] in Serum 28 mmol/L 22-29 [facility] Alanine aminotransferase [Enzymatic activity/volume] in Seru m or Plasma 30 U/L <41 [facility] Anion gap 3 in Serum or Plasma 6 mmol/L 8-15 L [facility] Glomerular filtration rate/1.73 sq M pre dicted among non-blacks [Volume Rate/Area] in Serum or Plasma by Creatinine-based formula (MDRD) >6 0 [facility] Glomerular filtration rate/1.73 sq M pre dicted among blacks [Volume Rate/Area] in Serum or Plasma by Creatinine-based formula (MDRD) >60 [facility] ID Date Data Source [id number] 07/10/2020 05:42:51 AM [facility] Value Range Interpretation Code Description Data Zahraa rce(s) Supporting Document(s) Magnesium [Mass/volume] in Serum or Plasma 1.6 mg/dL 1.6-2.6 [facility] ID Date Data Source [id number] 07/09/2020 06:59:49 PM [facility] Value Range Interpretation Code Description Data Zahraa rce(s) Supporting Document(s) Phosphate [Mass/volume] in Serum or Plasma 2.2 mg/dL 2.5-4.5 [facility] ID Date Data Source [id number] 07/09/2020 04:52:28 PM [facility] Value Range Interpretation Code Description Data Zahraa rce(s) Supporting Document(s) Glucose [Mass/volume] in Capillary blood by Glucometer 125 mg/dL 70- 140 [facility] ID Date Data Source [id number] 07/09/2020 04:51:19 PM [facility] Value Range Interpretation Code Description Data Zahraa rce(s) Supporting Document(s) Phosphate [Mass/volume] in Serum or Plasma 2.2 mg/dL 2.5-4.5 [facility] ID Date Data Source [id number] 07/09/2020 12:28:42 PM [facility] Value Range Interpretation Code Description Data Zahraa rce(s) Supporting Document(s) Glucose [Mass/volume] in Capillary blood by Glucometer 122 mg/dL 70- 140 [facility] ID Date Data Source [id number] 07/09/2020 10:54:16 AM [facility] Value Range Interpretation Code Description Data Zahraa rce(s) Supporting Document(s) Phosphate [Mass/volume] in Serum or Plasma 2.7 mg/dL 2.5-4.5 [facility] ID Date Data Source [id number] 07/09/2020 09:47:38 [facility] Name Value Range Interpretation Code Description Data Zahraa rce(s) Supporting Document(s) [facility] [id number]9jU6bPHQ7VEvAPpQzLzJiFHN9 m [file] ICAgICAgICAgICAgICAgICAgICAgICAgICAgICAgIC YrBGUiCZNyBYXvOVDpOBRbFWPdTXLmZLTxZKZySTRhLNGrXNHqRXMbXJFdRCNcJCXkMDOqLSNwAY1AYA AgICAgICAgICAgICAgICAgICAgICAgICAgICAgICAgICAgICAgICAgICAgICAgICAgICAgICAgICAgIC AgICAgICAgICAgICAgICAgICAgICAgICAgICAgICAg RLRxZKImWJ7TCLScIAUcCOCaKKQuAEGgFJPaVIRkTKItLUXgATNgGWXxLGJmVQOzFKPeCIFxYSZjUUNd MJCxEHPnWMXnTAKiZGAgBLPeZNVjCABbNOFvNHSrINXwWGKaMFQcGUQpHJJuYRYkRA8OUJIvHOSqTCWo ICAgICAgICAgICAgICAgICAgICAgICAgICAgICAgIC AgICAgICAgICAgICAgICAgICAgICAgICAgICAgICAgICAgICAgICAgICAgICAgICAgICAgICAgICAgIA 0KICAgICAgICAgICAgICAgICAgICAgICAgICAgICAgICAgICAgICAgICAgICAgICAgICAgICAgICAgIC AgICAgICAgICAgICAgICAgICAgICAgICAgICAgICAg CFAtXAGvAGIjFM9YQADdQDKsXDOuTDViXAPaJAYnLFMpZQIzGNBcVMXkLHJuCFMpSIXsACHmJGZuWPEp QEQgWXFnDHYzTWLwPUXaFLZaFBEyZGZkYBSbMZXsIOWhZNZlNZHoYCOyWAZyMGGmYHQnTA4XTQTfPJCb ICAgICAgICAgICAgICAgICAgICAgICAgICAgICAgIC AgICAgICAgICAgICAgICAgICAgICAgICAgICAgICAgICAgICAgICAgICAgICAgICAgICAgICAgICAgIC XmKH0HUHElEOHgUMJyCXHeKNOwMSNmDXJuORNiCGNzDMEhMVPrGYBfCMGyNULiLOCkXPFiIEQgDWOtCW AgICAgICAgICAgICAgICAgICAgICAgICAgICAgICAg UTPtOWKhBZEePHYrLQ5VMNKtSFOxOLBkELIyAPTaWTOfBRYzFNQtELDiUVWwFTBcJYTwDJDnUIAiSQHm SEBbCJFhFFUxOZXnSFAwVMVhUGRlMZOaKHUgOMGiEZBrVTHmYBKpCQMrLWOlURCtWRFuIEWhNU1CELAl ICAgICAgICAgICAgICAgICAgICAgICAgICAgICAgIC AgICAgICAgICAgICAgICAgICAgICAgICAgICAgICAgICAgICAgICAgICAgICAgICAgICAgICAgICAgIC XrLERcEF8QPJ12dTZjt7W1YWJbLV3btjv/Mk9DWYvfrxNtyPKlNQ9FAdNwCJ6gbh6KQzWwTP5nib3JWB dCOrJvA6S3eZUnWCBeOZZGJaIjR29zLPwoBt49AZta EAAaYsJkXBm2Qr4VFmXwU6hlRJWhLmD8HTMxXkU2AABhAkXbUNkwKG2Gn7RuxAQnRIa+Sd9GDL3lk3Em NEldANMeQV0yya9CGYgFYdOgK2BfuhP1IEWrLZLyZd7YAPLzEJEbzKPjUSOvRGJQPbMdC4ZdcJ97SIHP Cj4+YFqusnCzXvnNNoEeSZEoo9MiQSt7CG3SBJHrTP m9aLQhX43yh1MznMFdAhabYhJ9fQBeFD5vWCRit3SsFLNGdKTwyPCiIGFcMPDpIW1xQEFyXGQ2BtX0LV IEUX5XSUTkETDnxGAvNPAeXQWIYF0BRHpcPYC4FRFmckOkxQEqAGvzKB4JWNBcbtCjNMsfEECWFZx+Pg 8YWL7zq8BuQRbfCMWiWF9zlp5DNAiDPpAxH8G6aTHd S4Y7DBknXp0VATKqHNYuKQhxGDCJARikND0NPJ5xmzV1ZE2XbNKyQRVdTPZpzDJpMDh2Y55neMAgJToe GL9XDGH+Malvin+Mh1HILDjCTAzEVYsJnKyVTJDCdEzC2MyC0ULp2VkE2GcZJ14xWsbzzQmIHzoVO1LCI3e LASuWRJBOM9DxIGaxF0bkdRdLENnSTUMPzQmA35tbN ZnDOTgVQT8WEVjLr0IOVGfI6LojaBzvHcawwViTYSoZJMVGU6UNHmlhsDahWJmsJijCP38vKgeIL4TCm 4CUgQpWV0uqk6FgHMnIn2REBBkAd9XWKSeWVWiTEWiTIB8NGSuNeVjBSfqXVPgTMMqKAK1IGTmLUTjVN 7UBvIqESOeYKt0DmFyHPRoUKXdda3PJVZrPUSaDIJ3 ONGlAZDiHFDxAXxpSQCjVNIjIFL8IFPaUEJvAU2ZSzEqRPOgYKMlCcYnNLPpVPSyvi4AIYRjDTEtAsGb HWGjOQGpEVZbRWezYXDzOEM9WmH0HPEzRUSaNO3NEoYmCKTuUCI3EwQsLDBqQTVjku5YXFBlDOSuWVEn CAUlDLLxEPBaJSsjVBXrADI6GxP4FLSiSFQxSK9TNr NrRBYqDZB1ZBmqWKThTVKydo5PYIKwZBNaFtm8WzNhWMWnCFDkFHeuCTGaKGX6SID0DJFhDKUaHQ1XZn FlZDGbDMxoCUuuRJIdUQHkda6WLCUpSWSpEMGwTpBgKQEsYUAsZCfrAUUyLGF4XnS7HWHeYIObXU7UXh ZkWWQjYNx7UUnnRSDeKEWmmt2BMANjPPKqPWpiPQAq GELhNFKpTYstNFIlHXQcWjD6OOFiHLNzGG9SGwVwIVAqYZD2HoStGWLnDQFeys8NDGRuAVHqATQ6TwEw BCVtAIOjCKu2xwFsnKUqKGo3RJ1KF3DrsiZiXxOIEs5Ge960ABQyQUDpZx6UG9acMd8iYKNhXJNDLk3I JZi7JFO2FDZ8EZFcUsB8TwC4OsR8AJz4KrMlFRB6Th hiNWY+FCrrEcilUTS9KhT6CBXpHhfyOTcjEUwyX0Y2XJy3GSI4Nz7aQCGTFg4+DQpzdGFydHhyZWYNCj RbCNP1ESlnSXUDHb8V ID Date Data Source [id number] 07/09/2020 07:52:32 AM EST [facility] Name Value Range Interpretation Code Description Data Zahraa rce(s) Supporting Document(s) Glucose [Mass/volume] in Capillary blood by Glucometer 127 mg/dL 70- 140 [facility] ID Date Data Source [id number] 07/09/2020 01:22:41 AM [facility] Name Value Range Interpretation Code Description Data Zahraa rce(s) Supporting Document(s) Leukocytes [#/volume] in Blood by Automated count 3.5 10*3/uL 4-10 L [facility] Erythrocytes [#/volume] in Blood by Automated count 3.37 10*6/uL 4.6- 6.1 L [facility] Hemoglobin [Mass/volume] in Blood 10.5 g/dL 13.5-18 L [facility] Hematocrit [Volume Fraction] of Blood by Automated count 31.3 % 4 1-53 L [facility] Erythrocyte mean corpuscular volume [Entitic volume] by Auto mated count 92.9 fL 80-96 [facility] Erythrocyte mean corpuscular hemoglobin [Entitic mass] by Automated count 31.3 pg 27-33 [facility] Erythrocyte mean corpuscular hemoglobin concentration [Mass/volume] by Automated count 33.7 g/[facility] 32.0-[facility] distribution width [Ratio] by Automated count 13.9 % 11.5-14.5 [facility] Platelets [#/volume] in Blood by Automated count 60 10*3/uL 150-400 L [facility] Differential cell count method - Blood [facility] Neutrophils/100 leukocytes in Blood by Automated count 52 % [facility] Lymphocytes/100 leukocytes in Blood by Automated count 35 % [facility] Monocytes/100 leukocytes in Blood by Automated count 9 % [facility] Eosinophils/100 leukocytes in Blood by Automated count 3 % [facility] Basophils/100 leukocytes in Blood by Automated count 1 % [facility] Neutrophils [#/volume] in Blood by Automated count 1.83 10*3/uL 1.8-7 .0 [facility] Lymphocytes [#/volume] in Blood by Automated count 1.21 10*3/uL 1.2-4 .0 [facility] Monocytes [#/volume] in Blood by Automated count 0.30 10*3/uL 0-0.8 [facility] Eosinophils [#/volume] in Blood by Automated count 0.11 10*3/uL 0-0.5 [facility] Basophils [#/volume] in Blood by Automated count 0.02 10*3/uL 0-0.2 [facility] Nucleated erythrocytes/100 leukocytes [Ratio] in Blood by Automated count 0 /100{WBCs} 0-0 [facility] ID Date Data Source [id number] 07/09/2020 02:34:04 AM EST [facility] Name Value Range Interpretation Code Description Data Zahraa rce(s) Supporting Document(s) Albumin [Mass/volume] in Serum or Plasma by Bromocresol green (BCG) dye binding method 3.4 g/dL 3.5-5.2 [facility] Bilirubin.total [Mass/volume] in Serum or Plasma 0.4 mg/dL <1.2 [facility] Calcium [Mass/volume] in Serum or Plasma 7.6 mg/dL 8.6-10.0 [facility] Chloride [Moles/volume] in Serum or Plasma 103 mmol/L 98-107 [facility] Creatinine [Mass/volume] in Serum or Plasma 0.78 mg/dL 0.70-1.20 [facility] Glucose [Mass/volume] in Serum or Plasma 134 mg/dL 70-140 [facility] Alkaline phosphatase [Enzymatic activity/volume] in Serum or Plasma 51 U/L 40-129 [facility] Potassium [Moles/volume] in Serum or Plasma 3.1 mmol/L 3.4-5.1 L [facility] Protein [Mass/volume] in Serum or Plasma 5.2 g/dL 6.4-8.3 L [facility] Sodium [Moles/volume] in Serum or Plasma 138 mmol/L 136-145 [facility] Aspartate aminotransferase [Enzymatic activity/volume] in Serum or Plasma 36 U/L <40 [facility] Urea nitrogen [Mass/volume] in Serum or Plasma 8 mg/dL 6-20 [facility] Osmolality of Serum or Plasma by calculation 287 mosm/kg 275-300 [facility] Creatinine/Urea nitrogen [Mass Ratio] in Serum or Plasma 10 [facility] Bicarbonate [Moles/volume] in Serum 25 mmol/L 22-29 [facility] Alanine aminotransferase [Enzymatic activity/volume] in Seru m or Plasma 27 U/L <41 [facility] Anion gap 3 in Serum or Plasma 10 mmol/L 8-15 [facility] Glomerular filtration rate/1.73 sq M pre dicted among non-blacks [Volume Rate/Area] in Serum or Plasma by Creatinine-based formula (MDRD) >6 0 [facility] Glomerular filtration rate/1.73 sq M pre dicted among blacks [Volume Rate/Area] in Serum or Plasma by Creatinine-based formula (MDRD) >60 [facility] ID Date Data Source [id number] 07/09/2020 02:34:04 AM [facility] Value Range Interpretation Code Description Data Zahraa rce(s) Supporting Document(s) Phosphate [Mass/volume] in Serum or Plasma 2.6 mg/dL 2.5-4.5 [facility] ID Date Data Source [id number] 07/09/2020 04:17:35 AM [facility] Value Range Interpretation Code Description Data Zahraa rce(s) Supporting Document(s) Magnesium [Mass/volume] in Serum or Plasma 1.4 mg/dL 1.6-2.6 [facility] ID Date Data Source [id number] 07/08/2020 09:26:35 PM [facility] Value Range Interpretation Code Description Data Zahraa rce(s) Supporting Document(s) Glucose [Mass/volume] in Capillary blood by Glucometer 121 mg/dL 70- 140 [facility] ID Date Data Source [id number] 07/08/2020 05:00:26 PM [facility] Value Range Interpretation Code Description Data Zahraa rce(s) Supporting Document(s) Glucose [Mass/volume] in Capillary blood by Glucometer 115 mg/dL 70- 140 [facility] ID Date Data Source [id number] 07/08/2020 12:51:49 PM [facility] Value Range Interpretation Code Description Data Zahraa rce(s) Supporting Document(s) Glucose [Mass/volume] in Capillary blood by Glucometer 126 mg/dL 70- 140 [facility] ID Date Data Source [id number] 07/08/2020 11:08:16 AM [facility] Value Range Interpretation Code Description Data Zahraa rce(s) Supporting Document(s) Phosphate [Mass/volume] in Serum or Plasma 1.7 mg/dL 2.5-4.5 [facility] ID Date Data Source [id number] 07/08/2020 09:18:52 AM EST [facility] Name Value Range Interpretation Code Description Data Zahraa rce(s) Supporting Document(s) [facility] XZUGXz7oSiFZRlPba2JzMsPgKEIqPT5wyzi1G9Z0xNHyO8FlsJIzo1udG7LrK1WqKLTyNQSYWR7JhNMu jb2 [file] [employer] Attendant+rP5ybPuOk/LfaAMul38N5s6X6N+K2MK3sDA4aTn QyK7sq1k9hP/M2jE6lo6yIWOvFIMi4kkmzb5utKhi03WjX+kZ3/Q54MQA4VGorH12f4FgiooWZFh3enC jIgk656jqEi+uP+miguel/0B8RnudoapJbgFp2q3BG/5E4lzRgRyosgg4k+8kqt0kWvEQ7wWXjKkNenJzJSp [file] 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/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/6PsdHrt [file] p3MhADIzTPFDLb5+YnI9AVV1lPBjBoi3SQn4NVxmKZLUPn== ID Date Data Source [id number] 07/08/2020 08:46:36 AM [facility] Name Value Range Interpretation Code Description Data Zahraa rce(s) Supporting Document(s) Glucose [Mass/volume] in Capillary blood by Glucometer 116 mg/dL 70- 140 [facility] ID Date Data Source [id number] 07/08/2020 03:18:38 AM [facility] Name Value Range Interpretation Code Description Data Zahraa rce(s) Supporting Document(s) Leukocytes [#/volume] in Blood by Automated count 4.0 10*3/uL 4-10 [facility] Erythrocytes [#/volume] in Blood by Automated count 3.34 10*6/uL 4.6- 6.1 L [facility] Hemoglobin [Mass/volume] in Blood 10.4 g/dL 13.5-18 L [facility] Hematocrit [Volume Fraction] of Blood by Automated count 31.0 % 4 1-53 L [facility] Erythrocyte mean corpuscular volume [Entitic volume] by Auto mated count 92.9 fL 80-96 [facility] Erythrocyte mean corpuscular hemoglobin [Entitic mass] by Automated count 31.2 pg 27-33 [facility] Erythrocyte mean corpuscular hemoglobin concentration [Mass/volume] by Automated count 33.6 g/dL 32.0-36.0 [facility] E[facility]throcyte distribution width [Ratio] by Automated count 14.2 % 11.5-14.5 [facility] Platelets [#/volume] in Blood by Automated count 68 10*3/uL 150-400 L [facility] Differential cell count method - Blood [facility] Neutrophils/100 leukocytes in Blood by Automated count 57 % [facility] Lymphocytes/100 leukocytes in Blood by Automated count 31 % [facility] Monocytes/100 leukocytes in Blood by Automated count 8 % [facility] Eosinophils/100 leukocytes in Blood by Automated count 4 % [facility] Basophils/100 leukocytes in Blood by Automated count 0 % [facility] Neutrophils [#/volume] in Blood by Automated count 2.24 10*3/uL 1.8-7 .0 [facility] Lymphocytes [#/volume] in Blood by Automated count 1.25 10*3/uL 1.2-4 .0 [facility] Monocytes [#/volume] in Blood by Automated count 0.32 10*3/uL 0-0.8 [facility] Eosinophils [#/volume] in Blood by Automated count 0.16 10*3/uL 0-0.5 [facility] Basophils [#/volume] in Blood by Automated count 0.01 10*3/uL 0-0.2 [facility] Nucleated erythrocytes/100 leukocytes [Ratio] in Blood by Automated count 0 /100{WBCs} 0-0 [facility] ID Date Data Source [id number] 07/08/2020 03:42:20 AM [facility] Name Value Range Interpretation Code Description Data Zahraa rce(s) Supporting Document(s) Albumin [Mass/volume] in Serum or Plasma by Bromocresol green (BCG) dye binding method 3.4 g/dL 3.5-5.2 [facility] Bilirubin.total [Mass/volume] in Serum or Plasma 0.5 mg/dL <1.2 [facility] Calcium [Mass/volume] in Serum or Plasma 6.9 mg/dL 8.6-10.0 L [facility] Chloride [Moles/volume] in Serum or Plasma 102 mmol/L 98-107 [facility] Creatinine [Mass/volume] in Serum or Plasma 0.83 mg/dL 0.70-1.20 [facility] Glucose [Mass/volume] in Serum or Plasma 107 mg/dL 70-140 [facility] Alkaline phosphatase [Enzymatic activity/volume] in Serum or Plasma 52 U/L 40-129 [facility] Potassium [Moles/volume] in Serum or Plasma 3.4 mmol/L 3.4-5.1 [facility] Protein [Mass/volume] in Serum or Plasma 5.2 g/dL 6.4-8.3 L [facility] Sodium [Moles/volume] in Serum or Plasma 137 mmol/L 136-145 [facility] Aspartate aminotransferase [Enzymatic activity/volume] in Serum or Plasma 37 U/L <40 [facility] Urea nitrogen [Mass/volume] in Serum or Plasma 12 mg/dL 6-20 [facility] Osmolality of Serum or Plasma by calculation 284 mosm/kg 275-300 [facility] Creatinine/Urea nitrogen [Mass Ratio] in Serum or Plasma 14 [facility] Bicarbonate [Moles/volume] in Serum 28 mmol/L 22-29 [facility] Alanine aminotransferase [Enzymatic activity/volume] in Seru m or Plasma 22 U/L <41 [facility] Anion gap 3 in Serum or Plasma 7 mmol/L 8-15 L [facility] Glomerular filtration rate/1.73 sq M pre dicted among non-blacks [Volume Rate/Area] in Serum or Plasma by Creatinine-based formula (MDRD) >6 0 [facility] Glomerular filtration rate/1.73 sq M pre dicted among blacks [Volume Rate/Area] in Serum or Plasma by Creatinine-based formula (MDRD) >60 [facility] ID Date Data Source [id number] 07/08/2020 03:42:20 AM [facility] Name Value Range Interpretation Code Description Data Zahraa rce(s) Supporting Document(s) Phosphate [Mass/volume] in Serum or Plasma 1.6 mg/dL 2.5-4.5 [facility] ID Date Data Source [id number] 07/08/2020 08:17:22 AM [facility] Value Range Interpretation Code Description Data Zahraa rce(s) Supporting Document(s) Magnesium [Mass/volume] in Serum or Plasma 1.6 mg/dL 1.6-2.6 [facility] ID Date Data Source [id number] 07/07/2020 09:59:53 PM [facility] Value Range Interpretation Code Description Data Zahraa rce(s) Supporting Document(s) Glucose [Mass/volume] in Capillary blood by Glucometer 185 mg/dL 70- 140 H [facility] ID Date Data Source [id number] 07/07/2020 07:24:23 PM [facility] Value Range Interpretation Code Description Data Zahraa rce(s) Supporting Document(s) Leukocytes [#/volume] in Blood by Automated count 4.9 10*3/uL 4-10 [facility] Erythrocytes [#/volume] in Blood by Automated count 3.39 10*6/uL 4.6- 6.1 L [facility] Hemoglobin [Mass/volume] in Blood 10.7 g/dL 13.5-18 L [facility] Hematocrit [Volume Fraction] of Blood by Automated count 31.4 % 4 1-53 L [facility] Erythrocyte mean corpuscular volume [Entitic volume] by Auto mated count 92.7 fL 80-96 [facility] Erythrocyte mean corpuscular hemoglobin [Entitic mass] by Automated count 31.7 pg 27-33 [facility] Erythrocyte mean corpuscular hemoglobin concentration [Mass/volume] by Automated count 34.2 g/dL 32.0-36.0 [facility] Erythrocyte distribution width [Ratio] by Automated count 14.6 % 11.5-14.5 H [facility] Platelets [#/volume] in Blood by Automated count 71 10*3/uL 150-400 L [facility] Differential cell count method - Blood [facility] Neutrophils/100 leukocytes in Blood by Automated count 64 % [facility] Lymphocytes/100 leukocytes in Blood by Automated count 24 % [facility] Monocytes/100 leukocytes in Blood by Automated count 8 % [facility] Eosinophils/100 leukocytes in Blood by Automated count 4 % [facility] Basophils/100 leukocytes in Blood by Automated count 0 % [facility] Neutrophils [#/volume] in Blood by Automated count 3.10 10*3/uL 1.8-7 .0 [facility] Lymphocytes [#/volume] in Blood by Automated count 1.19 10*3/uL 1.2-4 .0 L [facility] Monocytes [#/volume] in Blood by Automated count 0.38 10*3/uL 0-0.8 [facility] Eosinophils [#/volume] in Blood by Automated count 0.18 10*3/uL 0-0.5 [facility] Basophils [#/volume] in Blood by Automated count 0.02 10*3/uL 0-0.2 [facility] Nucleated erythrocytes/100 leukocytes [Ratio] in Blood by Automated count 0 /100{WBCs} 0-0 [facility] ID Date Data Source [id number] 07/07/2020 07:55:59 PM [facility] Name Value Range Interpretation Code Description Data Zahraa rce(s) Supporting Document(s) Phosphate [Mass/volume] in Serum or Plasma 1.0 mg/dL 2.5-4.5 [facility] ID Date Data Source [id number] 07/07/2020 06:18:48 PM [facility] Name Value Range Interpretation Code Description Data Zahraa rce(s) Supporting Document(s) Magnesium [Mass/volume] in Serum or Plasma 1.7 mg/dL 1.6-2.6 [facility] ID Date Data Source [id number] 07/07/2020 06:18:48 PM [facility] Value Range Interpretation Code Description Data Zahraa rce(s) Supporting Document(s) Phosphate [Mass/volume] in Serum or Plasma 1.4 mg/dL 2.5-4.5 L [facility] ID Date Data Source [id number] 07/07/2020 05:59:50 PM [facility] Name Value Range Interpretation Code Description Data Zahraa rce(s) Supporting Document(s) Glucose [Mass/volume] in Capillary blood by Glucometer 127 mg/dL 70- 140 [facility] ID Date Data Source [id number] 07/07/2020 04:49:10 PM [facility] Name Value Range Interpretation Code Description Data Zahraa rce(s) Supporting Document(s) [facility] [id number]/SNYhgHYBzq5WyKAtpPSz3KLknFWTeW1AbBKU1oX8qHAO6VBeWRzHeCbLnKGG8 lbm [file] ICAgICAgICAgICAgICAgICAgICAgICAgICAgICAgIC PqIWYmEKCzBONrTRIlEDRkCEZrISIqQZRhSXOrUTOhGNWcFPVkLVIxAUXmDVNcRLPeFWWiEQ9JVAHyJZ AgICAgICAgICAgICAgICAgICAgICAgICAgICAgICAgICAgICAgICAgICAgICAgICAgICAgICAgICAgIC AgICAgICAgICAgICAgICAgICAgICAgICAgICAgICAg BIYuEB6DOMRkXPUuVFCiWJHkPTCwEUNnJUTxKTQfQVIbHIHcYPAcCXAdFROiSPRjBSXxVDKwPKObCTYc GVCwYDYeCAZiQVLyIUKyHKJlEDFbAPWmVCLdSDKlQLKsULVcTXFaZNBlGHQqMN5EXAHhTZWwUMNcAFWu ICAgICAgICAgICAgICAgICAgICAgICAgICAgICAgIC OgDIFlUBUcEBCtDOAvZBLnSGQxBWEuNSOqCBTkOKRuMWUiMZAgZPNnVBCiYCVnXXAyMKRnXGOjWB0UKQ AgICAgICAgICAgICAgICAgICAgICAgICAgICAgICAgICAgICAgICAgICAgICAgICAgICAgICAgICAgIC AgICAgICAgICAgICAgICAgICAgICAgICAgICAgICAg JWBiNUQzKX5DEHRwKDXaUFVzLYXqWIJkGWMkTWCfYJOtFCPwSMJgRIAhKCHiPTBeHZWeAYMwCLXiGSGb QQRdQWNgXEBxWBJpODFfGBFaGRNyENXdFSGyUEBjFGDhVZBlJEJrFIYqVYMjJOYeLC6DRFBvGUJcFQDe ICAgICAgICAgICAgICAgICAgICAgICAgICAgICAgIC AgICAgICAgICAgICAgICAgICAgICAgICAgICAgICAgICAgICAgICAgICAgICAgICAgICAgICAgICAgIA 0KICAgICAgICAgICAgICAgICAgICAgICAgICAgICAgICAgICAgICAgICAgICAgICAgICAgICAgICAgIC AgICAgICAgICAgICAgICAgICAgICAgICAgICAgICAg UWDkIUIyKSBkIL9GTLMcPPFtFACvPSWrSQKuQOZtPWMfFINiUSLfJTRhRMJcDZRnPRFqILIjMLLrCVIq LQNdPIUyOERrLCFkABImKMOuQPJlANOqDORfIWBqJCMmRWVlMARzOYMlZQZjXSQrYAIjEE5ISURwWZTi ICAgICAgICAgICAgICAgICAgICAgICAgICAgICAgIC AgICAgICAgICAgICAgICAgICAgICAgICAgICAgICAgICAgICAgICAgICAgICAgICAgICAgICAgICAgIC QuSH1XRD63mWRbm8C1TSEkJO3mfll/Tc3NWGbemeVutWLyGF6EKfDeSW6grb5UDhCuEG5asg0UHNfCIk PoL4I9hFJdIAPbXSYAHdOnU91sLMbcRf06AWwqNSWh AhUlIIb1Np3NOzLwP8rnZGUwScQ5EJXzVwT8XUBfMvP5YIDqBpRqVCCxRZPfUQSvBSOUWCR9KXYoPlPc XIckMO0Cj1MpnJY5MAn+Yj9IVD1kk3HcCKonDHLqHQ7agn3UAXjMJvDlI3ExybQ9MFRmCKJfEa7ITJLv PFMbdJNpQZKfZTJCItWnZ7XvuU23JTGXTc5+DQplbm CnLfdYLnRkEZHpu6TxYGu0LK2FGEUhQZs9cSJjI38dc6RlcGCmIjwnDRRulHeyqrUDBMAiF6ZfgmSpUS eWQ5ouTWIxGZNfKe5uTSKkARV6YeN4MQVVEQ3TXIFbBMLqiRYbJWIsDVCXDK7BJCmqXMZ5WBDvmsUxzQ NfUDtoYS7RZVYrmoEzZyyjLEXUVXp+Dr9SSL7eh9Dj ODhwAFBkCG0rym8CTUfRZeGvS5S4sRRbR8T9BScnVe8YDNLkYSSkOlwkKWGWVJggSE6CAN2nlnQ6NF4T lQQkSDIwJBPvvFPlAYv7J41rhSHzRJuaTQ7KXUY+Malvin+Ay7DUBJzAFBbDNAjOmZkGPCKVjFoL0ApN6LH v2JbT4FcKF17iXianoQaIXbdYF7ZAZ5lHCOzHDXEZK 6KsGWenA9avoEoLYSrUPCXDkWjW16woTVeJOTcBQP7KZPwKo7FXLOdW5IthkAjrGyrfiDxCGEtNRVBBS 0JPEsvcbJoiANttNwmJK71cWflFL8PWq6DXtOuKI7yes4CyZWwJb1LVKOuKo9UENVtBHVcFOKgKQG5GH ZiIgUgLSevUOAsCRHuINV2EAFlQIPjCM7PUtAfXJFf QmY6ANeiDGXhMKZmjw4HKJIkAWIhKdRzUJZpCLDfETJqTGowHIHyKMSdFWA0ZUYkCSStFE6VKcNcMAVx MFB4QGuhPGLgRXCowf2DXOJfBVWiRknpLvIiXOLvNSKpZJpoBNXxETP7Hyh8WHIiQJMvLD0HPcAfMOPl DEM9DiupEENcJCRplv9RHVQmNXNpSRPeHnKwOVDmUJ YsYEysIJSeKPAeIjVgEQVcKRHrEP7UGyRjPEPcIGV9MoccYBPeRCWvsx0RWRWkMPPwGbD6BUNtZHJtZW OjPOdnETHoHMW1FLesPOQbUAMyCC1UPiEjLNJxSSzqMBosVMRtBZKdne3IQYLtYYObUANjALDzPNNtAQ AvVSlvIAUxJPS1ECZ1IURyLIGdDS0SMeQgLWSeQhN4 BdLeJOInOASqmy3VFQLsZNApYIh1ZXWpXNUjWSIgUSnhTCZvNSCkEQD8GHUwWRVsFQ8PIiSuIJLpMrPj QQRiGCFyTIShip8WVSQmIMVyGwBqTIIiXLJuIAHgGKrqADLzDLKvKDBxCXYlWWZeQN7PZdQsKBEjPkM4 FbDqYCQoNFYcct1YMGRtPBDoZIU5XAEhBJQpJIAsGF rmTSWuKDL5YRwpFPSwURVsWY0CEfSuYBIjDjH3GuAxBFAuPSPgwi9WPTPyJXAvESp6OfSiUEDiHIHjDQ exRKTfOZG7Zpj8NFJrEKTtLK3HGxMtUXJqTlN7MDxdPFSdDZUfxb5HJAWcWNKfHfulLQInJVNtPJFcFE upYSSkPHZ5CMH8XVPeWXViTB9UPgYvCDffZGLVVza9 CSqqI2e4UPSpGg5HF6Lgl7FqJnMbPLBFLHahXF6wmxBsIWFtZo4VN4bBSvn8B9B3RNI7YERmP1W2CFud GKTkRXTvPKMjICScL1J1CZ6fGHf3AjSxHJNmCxE8PNC2DeH8MvHsVZW9QhJlKeDfIhh5MiGzCM8ZJm0E IxB3ZYP2zHHuJi9MKcstFCYNZqQrPX2ACEi= ID Date Data Source [id number] 07/07/2020 12:30:45 PM [facility] Value Range Interpretation Code Description Data Zahraa rce(s) Supporting Document(s) Glucose [Mass/volume] in Capillary blood by Glucometer 124 mg/dL 70- 140 [facility] ID Date Data Source [id number] 07/07/2020 12:30:45 PM [facility] Value Range Interpretation Code Description Data Zahraa rce(s) Supporting Document(s) Glucose [Mass/volume] in Capillary blood by Glucometer 11 mg/dL 70- 140 [facility] ID Date Data Source [id number] 07/07/2020 10:22:07 AM [facility] Value Range Interpretation Code Description Data Zahraa rce(s) Supporting Document(s) Potassium [Moles/volume] in Serum or Plasma 3.5 mmol/L 3.4-5.1 [facility] ID Date Data Source [id number] 07/07/2020 10:22:07 AM [facility] Name Value Range Interpretation Code Description Data Zahraa rce(s) Supporting Document(s) Phosphate [Mass/volume] in Serum or Plasma 0.9 mg/dL 2.5-4.5 [facility] Results called to and read back by PRASAD CAPONE RN [id number] ID Date Data Source [id number] 07/07/2020 08:24:21 AM [facility] Name Value Range Interpretation Code Description Data Zahraa rce(s) Supporting Document(s) Glucose [Mass/volume] in Capillary blood by Glucometer 126 mg/dL 70- 140 [facility] ID Date Data Source [id number] 07/07/2020 08:05:47 AM [facility] Value Range Interpretation Code Description Data Zahraa rce(s) Supporting Document(s) [facility] GBTUUk1mXiPMBvWm06/CNGchLOQmi0QbCSssVQz0KPtsXQOkF7TrCPP4bR3qJRE2DSyRXmWpSpQqTWC1 lbm [file] ICAgICAgICAgICAgICAgICAgICAgICAgICAgICAgICAgICAgICAgICAgICAgICAgICAgICAgICAgICAg ICAgICAgICAgICAgICAgICAgICAgICAgICAgICAgICAgICANCiAgICAgICAgICAgICAgICAgICAgICAg ICAgICAgICAgICAgICAgICAgICAgICAgICAgICAgIC AgICAgICAgICAgICAgICAgICAgICAgICAgICAgICAgICAgICAgICAgICAgICANCiAgICAgICAgICAgIC AgICAgICAgICAgICAgICAgICAgICAgICAgICAgICAgICAgICAgICAgICAgICAgICAgICAgICAgICAgIC AgICAgICAgICAgICAgICAgICAgICAgICAgICANCiAg ICAgICAgICAgICAgICAgICAgICAgICAgICAgICAgICAgICAgICAgICAgICAgICAgICAgICAgICAgICAg ICAgICAgICAgICAgICAgICAgICAgICAgICAgICAgICAgICAgICANCiAgICAgICAgICAgICAgICAgICAg ICAgICAgICAgICAgICAgICAgICAgICAgICAgICAgIC AgICAgICAgICAgICAgICAgICAgICAgICAgICAgICAgICAgICAgICAgICAgICAgICANCiAgICAgICAgIC AgICAgICAgICAgICAgICAgICAgICAgICAgICAgICAgICAgICAgICAgICAgICAgICAgICAgICAgICAgIC AgICAgICAgICAgICAgICAgICAgICAgICAgICAgICAN CiAgICAgICAgICAgICAgICAgICAgICAgICAgICAgICAgICAgICAgICAgICAgICAgICAgICAgICAgICAg ICAgICAgICAgICAgICAgICAgICAgICAgICAgICAgICAgICAgICAgICANCiAgICAgICAgICAgICAgICAg ICAgICAgICAgICAgICAgICAgICAgICAgICAgICAgIC AgICAgICAgICAgICAgICAgICAgICAgICAgICAgICAgICAgICAgICAgICAgICAgICAgICANCiAgICAgIC AgICAgICAgICAgICAgICAgICAgICAgICAgICAgICAgICAgICAgICAgICAgICAgICAgICAgICAgICAgIC AgICAgICAgICAgICAgICAgICAgICAgICAgICAgICAg ICANCiAgICAgICAgICAgICAgICAgICAgICAgICAgICAgICAgICAgICAgICAgICAgICAgICAgICAgICAg ICAgICAgICAgICAgICAgICAgICAgICAgICAgICAgICAgICAgICAgICAgICANCjw/lGZpL0aktJUlnuU9 I6qmLk2PXn1BUN4ng3GiGSXwJSeblkVcBxaZStEkTK LiGicAVyy1QCtkWV9JhVStH6OhR9PeWIgwOZ5XQBFkCSHohTEcDLSgRTFyVhS0EYGgSQwfMG1MtEGoAN mzUCCgMIXlFaMiRRLiWZShXXQmQDDaSAUPVSBnVJUnOvMfOSrtMK7Yo1YkvCC0BGj+Vv9TKW9vr2DgVW xpNsYuDU6srm9OCHxWXxXxV7PfqkI2OQW2CWVhMr3C ARMuKBDnrBSuJQYmIKTEAnYcX1OskJ72VEZEQu6+FOqzwpFhGitPZuP4UQPwp0GtPOl4FK0MDVSkLGn1 mBGlA37on1UtzZAkPbjdMCEcvQWxdBLMOKOejT3nxJicMY4GEpCzKLCiCOReJI9vTWNbGPP2BhO0IHIX BQ4CWIBeZXRgqCAjFAZwBRODGU0OIWfzXCX1UIOyka GjbKSkUNhxAB1ZIRVdkoKuQmSgSDMPAAb+Ch5UUC0zd0EyNMlmHQLyQT6enc8CBTfROxWgP1A4lXAiG6 Y2KJoyGj6UEXVcRHAvYbMfQZTZGIfnCX6HKG5rcnC3CF7VtBOpXVSgHBGkcBZtRWy7W41slMJwGAezDX 0KICA+Malvin+Ua9CBZEvBTUjCXEyXiNnIUZKFuZfY6Uo F4LXw8VeB7TsKM96jSbgfcIvIWkrGN2PLI1sCIHpPUPMDK6SmAFziZ5bsfQhKiWuRRJYOzYiR10cfVGq DDQbJNJmAQLeBu3WKYNyX9DfgqJxgGeiusMbYNUgKAMRYM3NWQhaqyAtnGJhjGfrNN85nIqrNH3CJi8L EaJfPW0cjz5ZbZJaZj0RQLDuOe1GWCNhBZZeIGPkUL K8UDNmGoCmWPlgXGHwUHEbVWI5PNSqELBkIS3XXtTyFQXuUqI5KiYuTQQxRELdjm9ELYIgSTDhSFQgQb EwFYLnRQPeAZweWURlRRCcRAE6XCWdJXMaIQ9URtEvFICiCHW8POPdESTpEUBpsd3UZQOpKUWgHRTgJG VkGMDbYZXhLKwkWKEkWJG2HSm6CYZgCORzSI5CBnZv YLUlFBunOPoqYGRsABZawq2FYNGuZMFqMVwzDoHbNHYmZDVrSJviXCJkMYSsNUY1VIEwHTEbRH1QJbAx EEUtMBIbSPItUMWhMKNyje5KILKoQPMvXSNyYJJqPITaQLOlLIsxVTVyVSY3NpBoKJDkIEKdTK3VUsAb KMBoJOb3ZEsqKUQaPWWwyd3PZTRzBFUmWEl0LrWsEF UiDRSgOJogRSMbBOGrVJs7XAVmCOCuZQ5LXoCoXTChFkBmGXgxPDQgQMJkmr0XRPWwGOAoSSQbVdQaWS KbJLIpQSruESCoKHOeBHG0QVVvISPeRJ4XDyUsVYCdNuV3TZJsBUBmMZQjja4FRSPoLCSfGqQ0RyFjVC UtYVVpCTdkCQWfXYWyFjLfTKLmYSJzQR8OSfLeTVKi FfU3AWNeQZCoAGMuim1ZSBVlQFVlKRNsBIKuXJDwXZTsKAumPRViOHQ3SxU0BACsIXIjDK0TOiLwMLQw YiE6ZXuhOICoUVFriv7KXJYbWKHfYPJ1PrGbWZNuQODpTCsfNHFqZIY2JgIjBJDrXFArSO0EQdLnSLNs CyRtGXtmJGTiHSUrvu1JYNZpFCTyRsH8PTVeFEIjDA RaFPgwJKDiVSE5GKYfIFSaJIMeQR6QIaLeZTMpYqI9OMGaTSMuFRNspo2RRIHtZDLcEEN4QQTfLUYxJV XrSRymJKOeTTH2DPYlPFRqJSLqUH1MOvOtUSDjAkl5ZvqhJIRcEMPfqi8NaYLksWuszv3WMFzONf7NrJ zaYEH3MEacQa0plPGoJFHnFQFHSz2NxkOcMRPtIMJF WAhsASAhPEHjJZP3CCVfMuCxYtS9QpVnCDGgTTo2MgE0KZAnZGJsSlM0XJGoTJmvQjN8BQJ6NJBdRWYs LqPwGyPtSYR8BQOkVHM+HU4wYWk+Jx2Tb6XzcdU1vrMoEQpfOWqbWi5UENCID1DNAt== ID Date Data Source [id number] 07/07/2020 08:05:32 AM [facility] Name Value Range Interpretation Code Description Data [facility]s) History and Physical [facility] DVCXPs9iGqIGBdSi30/FWMptAEXbk2HgKLcfCYl3IXjnUVVpH9DvJTO0xZ8pXCG6KFrMNeKpYaIcFIL2 lbm [file] AgICAgICAgICAgICAgICAgICAgICAgICAgICAgICAgICAgICAgICAgICAgICAgICAgICAgICAgICAgIC AgICAgICAgICAgICAgDQogICAgICAgICAgICAgICAg ICAgICAgICAgICAgICAgICAgICAgICAgICAgICAgICAgICAgICAgICAgICAgICAgICAgICAgICAgICAg ICAgICAgICAgICAgICAgICAgICAgICAgDQogICAgICAgICAgICAgICAgICAgICAgICAgICAgICAgICAg ICAgICAgICAgICAgICAgICAgICAgICAgICAgICAgIC AgICAgICAgICAgICAgICAgICAgICAgICAgICAgICAgICAgDQogICAgICAgICAgICAgICAgICAgICAgIC AgICAgICAgICAgICAgICAgICAgICAgICAgICAgICAgICAgICAgICAgICAgICAgICAgICAgICAgICAgIC AgICAgICAgICAgICAgICAgDQogICAgICAgICAgICAg ICAgICAgICAgICAgICAgICAgICAgICAgICAgICAgICAgICAgICAgICAgICAgICAgICAgICAgICAgICAg ICAgICAgICAgICAgICAgICAgICAgICAgICAgDQogICAgICAgICAgICAgICAgICAgICAgICAgICAgICAg ICAgICAgICAgICAgICAgICAgICAgICAgICAgICAgIC AgICAgICAgICAgICAgICAgICAgICAgICAgICAgICAgICAgICAgDQogICAgICAgICAgICAgICAgICAgIC AgICAgICAgICAgICAgICAgICAgICAgICAgICAgICAgICAgICAgICAgICAgICAgICAgICAgICAgICAgIC AgICAgICAgICAgICAgICAgICAgDQogICAgICAgICAg ICAgICAgICAgICAgICAgICAgICAgICAgICAgICAgICAgICAgICAgICAgICAgICAgICAgICAgICAgICAg ICAgICAgICAgICAgICAgICAgICAgICAgICAgICAgDQogICAgICAgICAgICAgICAgICAgICAgICAgICAg ICAgICAgICAgICAgICAgICAgICAgICAgICAgICAgIC AgICAgICAgICAgICAgICAgICAgICAgICAgICAgICAgICAgICAgICAgDQogICAgICAgICAgICAgICAgIC AgICAgICAgICAgICAgICAgICAgICAgICAgICAgICAgICAgICAgICAgICAgICAgICAgICAgICAgICAgIC YkGQRnHYYtMJTgZYXyGZViOADzVAScRBi3Y0seBNYi JXBiEM0bBOe8Vf8+KRqHIpCnAHB7giAipS5OCP6px4AeQKarJCYbv2IpTZi6YP1WIZElZEgrPF1RQRyv sq9WEHBgSQSuoHTRm0fbWnAtXTP6LHVaJnlsYH6KZVJpZ8qbcsLwTJUwONNCRGhgRWJTQO4BFmHbC2Pw fD05WRLIUv6+SLntisYjEhhGWvK1JINug6ZyDZc0OQ 2BIFPtWxadn5UoZmrpMBVKCLygNV9RUCD5WMS9UVEbZk3PGDNcC477iaFaXQ1LNv6ZMjZdHV9rpm8OCg qrAFTrIztTDzv5ICuoVE9SyNBhDAjTKdKwCvpwWHHleDPkdXUAZCLelF8txDhcAA4TRmTtLOOeZYXdKN 9mZFNkAYUyRvKnREQLND0KBKScNLDzrCEjOODgWIVC HJ5CPImtUYD3OOQxshQcdSXxSKmhCT3KKUErwlVgOjktZDFGKUj+Os6FHP9cb0PdPJwkQNPlCQ7pfo6S NZmGUlStP0O6ySHdF7W5GZxyFu0UQMWwFSQfOvGbXNOOZTpzAU7UOT1faxI9KU8TjHDdQKHuXDRihPWp OPp2B69vlKSrHJcyCQ6XOXF+Malvin+Cq8LCZUlGNGrHW DuXgCoERESHaIbL2BtD2OAb5WhS0EyOT58jQmzlsCwORbeIA3FVE7aSCNsVIRLDO4BdCQkhN3awjAmNx YwKGVKCdGtA13tvWKxXTZwFYX2HVZrCl1CYULpX9HgoaSqjIssnhZqKUToSTXJZW3NAPoqssOdpCZgnE ubCK61gZeqJY3SEd4TRiHfPM7suh2CpMTtUe2LHGNy FW0AQUHeAAPhJEXpUTC0RNJcYdPyTXfcQMLwLFAxPFX7QOKwTNKpVS2HCgIxNOJkHxJjWZOiRTNrPCPg ne6QOHWgNASiZbN0FzSpVFKzICNgQVfpXRKiHLIsETN8NNFoBPImZJ4OCpNlBAHjHHOcSCXuPUAqKRCk rn0FWLScXOUfXcY5ZhYmKIHcBGYhCQqnUWPyRND1VJ x6PTKsRGJdBQ8YWeEqOQDqFET9DXpjJRUiFMQceo5WVGQxYBZgFjA8AoMiUKNzIJGoBCalDPQyOXL6PF SkFDNqFSIiNX4JTuOoVBYcMVpjKeRhMYGuVKOggg1UEDZqDSNaRKd4HvSvPUWlOTHwQXmhYPXdYTF8JC w7SHTcIUBqJD3LDrNwSAUmQMqaNaWeCZZjLJPijv5I FFFnZQKvPDHpBgKqVJVtLTPjERepTPKgSEJdKTHkRKUrGDPjCF3JDaKaAVOwNTR1SKUcJHQuUUBvyx2M TNKrRKMkRvM8JLRjTRPiWHTcVBwaOVSiYAJeWFD6HJFoAQVeXH7TNkVmFRWyNqC7EjElWDJeFKPqdf2Z KVRdMIFsVkg2CJFoYWCkTBIsDCudIWKiXSCgYIOwXB PsYKKhFC8INtXaXMFePhV8TONfOBOtJPNbxm6UAPGuSFAzORY3KtCnYJMxGCTmKHrwYMKfIDK1KoZnAG IaOOBlOW5JJuVgQWHrVlR3CYEhFDHmQXJdop5MGWXpYQDdDbH3LqNrTYXdMPYxZMiuCMUkPOF1ApZ5ZC PnIWPkHA4JUcHrMWRzMiB4XBAtDVJlLHXoff6YvERh eLudeu6QSObHGw5JaIhuAIVbQFipFp2hcNZxLBXdEEOHMf6WtcGwDNWfQCKGXQiiNUPxDVP2LsheQJRo XFutBLviHJZnOiW3EXnoXIArHQEwYpl4WrM6AfvwDlX7FrL6X4ZaXZNkNfWoAkjqBCTlQJK8V8GxEtL+ XL6oRGq+Nb9Rz2WmsaW0fkXhFJcwSnK7YW1LIRQKW9TJGl== ID Date Data Source [id number] 07/07/2020 06:55:55 AM [facility] Name Value Range Interpretation Code Description Data [facility](s) Supporting Document(s) Albumin [Mass/volume] in Serum or Plasma by Bromocresol green (BCG) dye binding method 3.8 g/[facility].5[facility]5.2 [facility] Bil[facility].total [Mass/volume] in Serum or Plasma 0.7 mg/dL <1.2 [facility] Calcium [Mass/volume] in Serum or Plasma 6.9 mg/dL 8.6-10.0 L [facility] Chloride [Moles/volume] in Serum or Plasma 100 mmol/L 98-107 [facility] Confirmed Creatinine [Mass/volume] in Serum or Plasma 0.96 mg/dL 0.70-1.20 [facility] Glucose [Mass/volume] in Serum or Plasma 140 mg/dL 70-140 [facility] Alkaline phosphatase [Enzymatic activity/volume] in Serum or Plasma 49 U/L 40-129 [facility] Potassium [Moles/volume] in Serum or Plasma 3.5 mmol/L 3.4-5.1 [facility] Protein [Mass/volume] in Serum or Plasma 5.5 g/dL 6.4-8.3 L [facility] Sodium [Moles/volume] in Serum or Plasma 137 mmol/L 136-145 [facility] Aspartate aminotransferase [Enzymatic activity/volume] in Serum or Plasma 41 U/L <40 H [facility] Urea nitrogen [Mass/volume] in Serum or Plasma 18 mg/dL 6-20 [facility] Osmolality of Serum or Plasma by calculation 288 mosm/kg 275-300 [facility] Creatinine/Urea nitrogen [Mass Ratio] in Serum or Plasma 19 [facility] Bicarbonate [Moles/volume] in Serum 24 mmol/L 22-29 [facility] Alanine aminotransferase [Enzymatic activity/volume] in Seru m or Plasma 25 U/L <41 [facility] Anion gap 3 in Serum or Plasma 13 mmol/L 8-15 [facility] Glomerular filtration rate/1.73 sq M pre dicted among non-blacks [Volume Rate/Area] in Serum or Plasma by Creatinine-based formula (MDRD) >6 0 [facility] Glomerular filtration rate/1.73 sq M pre dicted among blacks [Volume Rate/Area] in Serum or Plasma by Creatinine-based formula (MDRD) >60 [facility] ID Date Data Source [id number] 07/07/2020 08:45:11 AM [facility] Name Value Range Interpretation Code Description Data [facility] Supporting Document(s) Leukocytes [#/volume] in Blood by Automated count 5.1 10*3/uL 4-10 [facility] Erythrocytes [#/volume] in Blood by Automated count 3.26 10*6/uL 4.6- 6.1 L [facility] Hemoglobin [Mass/volume] in Blood 10.3 g/dL 13.5-18 L [facility] Hematocrit [Volume Fraction] of Blood by Automated count 29.8 % 4 1-53 L [facility] Erythrocyte mean corpuscular volume [Entitic volume] by Auto mated count 91.4 fL 80-96 [facility] Erythrocyte mean corpuscular hemoglobin [Entitic mass] by Automated count 31.6 pg 27-33 [facility] Erythrocyte mean corpuscular hemoglobin concentration [Mass/volume] by Automated count 34.5 g/dL 32.0-36.0 [facility] E[facility]throcyte distribution width [Ratio] by Automated count 14.7 % 11.5-14.5 H [facility] Platelets [#/volume] in Blood by Automated count 65 10*3/uL 150-400 L [facility] Differential cell count method - Blood [facility] Neutrophils/100 leukocytes in Blood by Automated count 76 % [facility] Lymphocytes/100 leukocytes in Blood by Automated count 14 % [facility] Monocytes/100 leukocytes in Blood by Automated count 7 % [facility] Eosinophils/100 leukocytes in Blood by Automated count 3 % [facility] Neutrophils [#/volume] in Blood by Automated count 3.91 10*3/uL 1.8-7 .0 [facility] Lymphocytes [#/volume] in Blood by Automated count 0.71 10*3/uL 1.2-4 .0 L [facility] Monocytes [#/volume] in Blood by Automated count 0.33 10*3/uL 0-0.8 [facility] Eosinophils [#/volume] in Blood by Automated count 0.14 10*3/uL 0-0.5 [facility] Poikilocytosis [Presence] in Blood by Light microscopy [facility] Stomatocytes [Presence] in Blood by Light microscopy [facility] ID Date Data Source [id number] 07/07/2020 07:00:15 AM [facility] Name Value Range Interpretation Code Description Data [facility]) Supporting Document(s) Hemoglobin A1c/Hemoglobin.total in Blood by HPLC 5.5 % 4.0-6.0 [facility] (NOTE)<5.7% Average risk of diabetes (ADA)5.7-6.4% Increased risk of diabetes(ADA)>/= 6.5% Diagnostic for diabetes(ADA) Glucose mean value [Mass/volume] in Blood Estimated fr om glycated hemoglobin 111 mg/dL <126 [facility] ID Date Data Source [id number] 07/07/2020 12:45:32 AM EST [facility] Name Value Range Interpretation Code Description Data [facility](s) Supporting Document(s) Leukocytes [#/volume] in Blood by Automated count 5.2 10*3/uL 4-10 [facility] Erythrocytes [#/volume] in Blood by Automated count 3.20 10*6/uL 4.6- 6.1 L [facility] Hemoglobin [Mass/volume] in Blood 10.1 g/dL 13.5-18 L [facility] Hematocrit [Volume Fraction] of Blood by Automated count 29.2 % 4 1-53 L [facility] Erythrocyte mean corpuscular volume [Entitic volume] by Auto mated count 91.3 fL 80-96 [facility] Erythrocyte mean corpuscular hemoglobin [Entitic mass] by Automated count 31.5 pg 27-33 [facility] Erythrocyte mean corpuscular hemoglobin concentration [Mass/volume] by Automated count 34.5 g/dL 32.0-36.0 [facility] Erythrocyte distribution width [Ratio] by Automated count 14.4 % 11.5-14.5 [facility] Platelets [#/volume] in Blood by Automated count 69 10*3/uL 150-400 L [facility] Differential cell count method - Blood [facility] Neutrophils/100 leukocytes in Blood by Automated count 73 % [facility] Lymphocytes/100 leukocytes in Blood by Automated count 17 % [facility] Monocytes/100 leukocytes in Blood by Automated count 9 % [facility] Eosinophils/100 leukocytes in Blood by Automated count 1 % [facility] Basophils/100 leukocytes in Blood by Automated count 0 % [facility] Neutrophils [#/volume] in Blood by Automated count 3.74 10*3/uL 1.8-7 .0 [facility] Lymphocytes [#/volume] in Blood by Automated count 0.89 10*3/uL 1.2-4 .0 L [facility] Monocytes [#/volume] in Blood by Automated count 0.46 10*3/uL 0-0.8 [facility] Eosinophils [#/volume] in Blood by Automated count 0.06 10*3/uL 0-0.5 [facility] Basophils [#/volume] in Blood by Automated count 0.01 10*3/uL 0-0.2 [facility] Nucleated erythrocytes/100 leukocytes [Ratio] in Blood by Automated count 0 /100{WBCs} 0-0 [facility] ID Date Data Source [id number] 07/06/2020 10:10:12 PM [facility] Name Value Range Interpretation Code Description Data [facility]) Supporting Document(s) Glucose [Mass/volume] in Capillary blood by Glucometer 262 mg/dL 70- 140 H [facility] ID Date Data Source [id number] 07/06/2020 10:56:32 PM [facility] Value Range Interpretation Code Description Data [facility](s) Supporting Document(s) Magnesium [Mass/volume] in Serum or Plasma 2.0 mg/dL 1.6-2.6 [facility] ID Date Data Source [id number] 07/06/2020 10:56:32 PM [facility] Value Range Interpretation Code Description Data [facility]s) Supporting Document(s) Potassium [Moles/volume] in Serum or Plasma 3.6 mmol/L 3.4-5.1 [facility] ID Date Data Source [id number] 07/06/2020 11:17:32 PM [facility] Value Range Interpretation Code Description Data [facility]) Supporting Document(s) Phosphate [Mass/volume] in Serum or Plasma 0.7 mg/dL 2.5-4.5 [facility] Results called to and read back by José Bhatti RN on 6I at [id number] ID Date Data Source [id number] 07/06/2020 06:21:10 PM [facility] Value Range Interpretation Code Description Data [facility]) Supporting Document(s) Lactate [Moles/volume] in Serum or Plasma 1.1 mmol/l 0.5-2.2 [facility] ID Date Data Source [id number] 07/06/2020 06:26:33 PM [facility] Value Range Interpretation Code Description Data [facility](s) Supporting Document(s) Leukocytes [#/volume] in Blood by Automated count 5.6 10*3/uL 4-10 [facility] Erythrocytes [#/volume] in Blood by Automated count 3.15 10*6/uL 4.6- 6.1 L [facility] Hemoglobin [Mass/volume] in Blood 10.0 g/dL 13.5-18 L [facility] Hematocrit [Volume Fraction] of Blood by Automated count 28.9 % 4 1-53 L [facility] Erythrocyte mean corpuscular volume [Entitic volume] by Auto mated count 91.9 fL 80-96 [facility] Erythrocyte mean corpuscular hemoglobin [Entitic mass] by Automated count 31.7 pg 27-33 [facility] Erythrocyte mean corpuscular hemoglobin concentration [Mass/volume] by Automated count 34.5 g/dL 32.0-36.0 [facility] E[facility]throcyte distribution width [Ratio] by Automated count 14.3 % 11.5-14.5 [facility] Platelets [#/volume] in Blood by Automated count 70 10*3/uL 150-400 L [facility] Differential cell count method - Blood [facility] Neutrophils/100 leukocytes in Blood by Automated count 77 % [facility] Lymphocytes/100 leukocytes in Blood by Automated count 12 % [facility] Monocytes/100 leukocytes in Blood by Automated count 11 % [facility] Eosinophils/100 leukocytes in Blood by Automated count 0 % [facility] Basophils/100 leukocytes in Blood by Automated count 0 % [facility] Neutrophils [#/volume] in Blood by Automated count 4.29 10*3/uL 1.8-7 .0 [facility] Lymphocytes [#/volume] in Blood by Automated count 0.68 10*3/uL 1.2-4 .0 [facility] Monocytes [#/volume] in Blood by Automated count 0.59 10*3/uL 0-0.8 [facility] Eosinophils [#/volume] in Blood by Automated count 0.01 10*3/uL 0-0.5 [facility] Basophils [#/volume] in Blood by Automated count 0.00 10*3/uL 0-0.2 [facility] Nucleated erythrocytes/100 leukocytes [Ratio] in Blood by Automated count 0 /100{WBCs} 0-0 [facility] ID Date Data Source [id number] 07/06/2020 05:04:33 PM [facility] Name Value Range Interpretation Code Description Data [facility](s) Supporting Document(s) History and Physical [facility] ERHREq1mQiQXOoGj40/HOLraQBRla9UoOUwxFVo0VQrsOUWdT4OsFVL5zM3fHPC5EOdWJmDvBsDzQQW0 lbm [file] CiAgICAgICAgICAgICAgICAgICAgICAgICAgICAgICAgICAgICAgICAgICAgICAgICAgICAgICAgICAg ICAgICAgICAgICAgICAgICAgICAgICAgICAgICAgICAgICAgICAgICANCiAgICAgICAgICAgICAgICAg ICAgICAgICAgICAgICAgICAgICAgICAgICAgICAgIC AgICAgICAgICAgICAgICAgICAgICAgICAgICAgICAgICAgICAgICAgICAgICAgICAgICANCiAgICAgIC AgICAgICAgICAgICAgICAgICAgICAgICAgICAgICAgICAgICAgICAgICAgICAgICAgICAgICAgICAgIC AgICAgICAgICAgICAgICAgICAgICAgICAgICAgICAg ICANCiAgICAgICAgICAgICAgICAgICAgICAgICAgICAgICAgICAgICAgICAgICAgICAgICAgICAgICAg ICAgICAgICAgICAgICAgICAgICAgICAgICAgICAgICAgICAgICAgICAgICANCiAgICAgICAgICAgICAg ICAgICAgICAgICAgICAgICAgICAgICAgICAgICAgIC AgICAgICAgICAgICAgICAgICAgICAgICAgICAgICAgICAgICAgICAgICAgICAgICAgICAgICANCiAgIC AgICAgICAgICAgICAgICAgICAgICAgICAgICAgICAgICAgICAgICAgICAgICAgICAgICAgICAgICAgIC AgICAgICAgICAgICAgICAgICAgICAgICAgICAgICAg ICAgICANCiAgICAgICAgICAgICAgICAgICAgICAgICAgICAgICAgICAgICAgICAgICAgICAgICAgICAg ICAgICAgICAgICAgICAgICAgICAgICAgICAgICAgICAgICAgICAgICAgICAgICANCiAgICAgICAgICAg ICAgICAgICAgICAgICAgICAgICAgICAgICAgICAgIC AgICAgICAgICAgICAgICAgICAgICAgICAgICAgICAgICAgICAgICAgICAgICAgICAgICAgICAgICANCi AgICAgICAgICAgICAgICAgICAgICAgICAgICAgICAgICAgICAgICAgICAgICAgICAgICAgICAgICAgIC AgICAgICAgICAgICAgICAgICAgICAgICAgICAgICAg ICAgICAgICANCiAgICAgICAgICAgICAgICAgICAgICAgICAgICAgICAgICAgICAgICAgICAgICAgICAg ICAgICAgICAgICAgICAgICAgICAgICAgICAgICAgICAgICAgICAgICAgICAgICAgICANCjw/eNFkV6up mDTqbxV1O4stJg3VOw2KLG3le0GmFQGrYUuyvgMlCy pPLoQhGSYxLgdJFsi3RIsrHH1HtZIqE2KjU6UgLAvrOL1VJHAcPPUwnLWcOHKlUWWvDkF0BOPtXGopTZ 0MmSLaZDjrJUIzHNOpYnHyLZIrMXEqHZNnNMIcFQKLQCDgRZLeIiKiARhhKJ3Fh2WplHS4LXn+Pg0KZW 9pp9HgXMekHhGxUK4hwn9SOJfRHyWpV9JdguK6ALQ4 ECEmPt2HQTDrDNZufVKaOMLaROUEZbMhC9UbuJ22PQLXDh3+FGaxkoWuDouBPnX1KHNgc4TiQEp5FC2L MYQfWId8kVMmVABPAIT6FRnpTbBlRvwrKEfpDZKNTQD0SWQgSoRnFeVtGOAzUApzWNJDSVgTKeWgC5Ae e1BdZfK4XFObHhXaPMsxSYSfVkY6CM38qEkkVJ9QLX FyXGHcFZ49VIAlXPQvCv7JCn0BGxLkJL4gxi8PVwPkTRFiOtwQRsd6SEpuJZ9HsXBtA6BykCZza2aBFw InQ5CISWOkMLBnPi3GEABnEnIxVMXvTOrbGZ9eKZRyANFRjGaaghJ6UW2ICY8stzHyRV4JNcZyFy0zQj 4GScKfW5SyI4QdHIIcWNEEJOkfHC4WSHhvDJ6lDN3W s7DSePNoqR0vgc1XROVvDFErLqthok9KRyhgZ5L4mHfyWCKaNpIlOAEVDRxzYI8BUPPaJKA9IROuAqNr NCGVNkGrU13cXI2BM3Whj25cJbX1VREwGqYuSJvbYL16cDlaiyLzmFCznNfeJL4YHu9+DQplbmRvYmoN JbuyUIKOSyOoPcKQUoOsYMXoDMJlBBQvIdI9JeLmFg 2LFTKkATZsDNJxAjEeKLLzXQXfGRhvERAeVMLdETO4BGTaWLTyKM4ADiVwYZJjJsG0GRLbKCLyNRUifm 6AWZZxTWCiQWH4UbQbJKQkJZMpUNdlIJFrXNO8XKN7HHGyZOBsST9PQcWePDNmJBKzDzpaYTGuDMAgwh 4GWOOfCLUlPbh6UWYuNTPlOIKmITlzHCYjDDL0XXi0 LWHmTFMiRT7LXrMzWPEfGJD2HVTwNONoDWSdsz2JNHZwNEWxTVc9SNIzVAAoBQVbMXqyLUPfVGC2Kuzp HYNnLODpYA8DIsCzNHBvUOR6JCvwSKYwOKHoeh1ZKFYzPEStGUs1FGSuOARxIUKfXOmdBOScYWX8UTs0 UEAxGGNnUZ4OKdIxLXKxDUegSBAfZPGfCFGasp6XCU VbQCFfWrH5BmBdEJUwYCGtUTkzWTUiMSW5BXP7ALTlWXHvAW3YGyAtJYUjUDi9GAYbSRYwYIStsz2BVO OzRYDlCKB5RmVhAPBgYCEnODkfYQEpQKI0YUy2ROZlOULnPX4OJjNqVYMaMPy5ARTnUYOfYQMswf1HAK NdSSXlWGO2VfUlISMzCIPfTGxeRWCyHAGlBtF5JXBe FMGwWU1GIlGeJJWqDtD7MMNfTHQjTYEbev0OJIFqGDBwWTptLPXsKEKxHEXgYFcvANWyQHJzDIU1XBFo RUDcXY5CVsCaNLWpSfOmHeBfVKGlLAKwsa7WVPXmHILnBzZxKaYeOGEyRCZrGQidFLUfLHIiTXG1SCEs CQKsWW0BTgKtFUHcGuK2OVQlPDTnHLCwon8GKZFxJM YbEujlOfEdIMHcQGVlSGikBRCiQFW1TuI0XCDcBNBlCD2UGmDpCAIpMpW8JqhbVPPcJJDiqp8RBJTmMJ EwVOynNTPoPODwERUuYPbqFIXfJGN1IVD1DVZrNJZfHI5BYnNoYZosLLSPHks8MCidF3p7XPEzRc2DE9 Fxj4UySxWwJQNAUQqoMK3ygkUgBSGtJz7QI9oSJast GLGuD1YsZTBdInTsM1BnXZCuKJMgFEIuLNFvTnCqGo5mRUA0RMKuOSEfHRC7KEO2LUY5HqCjUIH5IHH9 XSMjOZT5FjAqVF0FLb6LScS7PRJ6xONyRy9BPvHvCakGSbIzLT7YAIs= ID Date Data Source [id number] 07/06/2020 04:38:18 PM [facility] Name Value Range Interpretation Code Description Data Zahraa rce(s) Supporting Document(s) Consultation [facility] JRMBQa5hCxCIAcEe75/SXHumQNYgb1ZnAWwiQEy6HSeeHJWvY7MgPCN2gB4uCTM9YVjIFmZrUlTvWII7 lbm [file] ICAgICAgICAgICAgICAgICAgICAgICAgICAgICAgICAgICAgICAgICAgICAgICAgICAgICAgICAgICAg KIIuQDVsOMJsMSUhPPHrAK0ZKKGtWKMaJCMqZBXwEF AgICAgICAgICAgICAgICAgICAgICAgICAgICAgICAgICAgICAgICAgICAgICAgICAgICAgICAgICAgIC WvIKXcUKFpDCSuNERoWAPaKCAgUZUkXWYmOU7JBRZpPNPxBTFhGXAtDOKsNZJhTNGoQIMnQKKgDLVmOX AgICAgICAgICAgICAgICAgICAgICAgICAgICAgICAg KNXeCSUhWVGeEEXmYFRgNCZcFMXpQDAtQAYmHRCfUNGyMJUzRL1WPJOnYLHxSRAwYNLxPOTdSQYaMKSt ICAgICAgICAgICAgICAgICAgICAgICAgICAgICAgICAgICAgICAgICAgICAgICAgICAgICAgICAgICAg OTRaXHGhEDIsAYBiGTJpUMMkHX5UDKTnUVZbVMQnIH AgICAgICAgICAgICAgICAgICAgICAgICAgICAgICAgICAgICAgICAgICAgICAgICAgICAgICAgICAgIC ZzFMKiJDWuSSMpTPPhOZOmECMbVEWlBYBzBECkSM6SVZRhFGGrFFNcQVJjRWQnHSUjTUMdPNYjOACjLD AgICAgICAgICAgICAgICAgICAgICAgICAgICAgICAg JRBfPYYpZZAiWDBwXHLaPJXkBKJaBONoGCHxOUWrFMJsCYUyQWTyRH5GRKUjYYYaAINrXLTqTNBnUXKx ICAgICAgICAgICAgICAgICAgICAgICAgICAgICAgICAgICAgICAgICAgICAgICAgICAgICAgICAgICAg DMAyUAZfLFYaSGWsVEWjQTAfEMJdCB2AEUHsZYDwDQ AgICAgICAgICAgICAgICAgICAgICAgICAgICAgICAgICAgICAgICAgICAgICAgICAgICAgICAgICAgIC SnJNBeMTElLJYhQCObIXZgUGGaZXEfCQDmOZKvBDTxWA5SDCMbIMHeJAPtGVQxXRJzMOLeCEPcFETwRX AgICAgICAgICAgICAgICAgICAgICAgICAgICAgICAg WTBcQJLyWFRxBKFgSMWzTEGkTPSgDGKcQATaYLWlCGQfYAHpHNRiYCCrSX9ZFJUsAAKrYVEkKQFoMWTy ICAgICAgICAgICAgICAgICAgICAgICAgICAgICAgICAgICAgICAgICAgICAgICAgICAgICAgICAgICAg SZJsMQGiWGIxZYVzYHJrUNCjFXBaCZFpTR2PUR64mM Ezt2B0HLZxMK4fzru/Go1WQMmqzvHlkUZeQY9IKeZwNH4aar8ENaUmNT0klr4QNJfVEwQkD3M0aSGfRD GzEHHZJsJnN09pSYnaEw70WOxjPXJyDwBnHCr7Yw4WXxKfW1qjRKViOqR9VGAbQjIoAOicOK6Ty0DbzS AxDQo+Ew6CGG6jf5SfAUthSYGvOL9fpn8AGEuOPlHd X6WzucF7LIP2TNTlJw8YQCZzRDSetKSpTYSmNNIIXkUyU5EdiA66IUWLPo3+ZVytguBbPzhFKpK3SNYc p9HyVCn3YP6RUYHnMOe9mUZvR45fk3UwpPKiIccpSCSodPkraaWFBEElE3OwtzTvFVlCE9tzKMXdSITb EX6oNXCqQJA3KeL9XJHRTI9ULZOcICRwzMTfCNRaAX XUQY0YWJwjSXN5DSZvgrRyrCTuMQdhTM7DKFLsmwEvPFKbEYSLTIo+Qn9HAH5ae1DlHMnoQvWcPE3jqy 8VYUxQNcGkY5B0uBCaW4O4WXojTq7CIVBnICWiGVRdSIREZMdyJW6EKO1nraU3JI9SmTAqRZPpGIWcfO XwDZs6X39vzWYvMQngZE3GYEU+Malvin+Ym7EIOHuWWNz XCTgNoTaODRKKuQpH6EoN5GKr2JfQ0IfZY89gHkwxtMmBUrwGZ8ZYW9nIOOwZLYNCC6GaNOtbN9enkRd NBKgNNHTZxSfM43pjDWmPQXhMTNvFYPpPe4ZDNKsP7FnioGnhLejlnEeSJBdHEZIEJ3FTZkoqxFdiOCf yEfuVA76lCcqVP6AWb4ESyBsJL5sgo5OkIUjNx6JXZ UlBh9PMGSlIJYvMGNxQXA9EQPmOtUmQFcgEGSjXWNuWMK0FAFiXNXfYW9ATfWcTHQmSOX6FxwfFNFdYX Ulyl7QEHAsXXBgSrP3KCBvTKBrGJQqZJerTDTtSZPdNRU8QRMuROKlUT7SHqJgEBVyXXU6VPdbPRZdXX Giev1BWYXaASQgVOkxWfWoMZFhFJJaBBtlHGFkCRIz VbxuZIZqURVrKX3TYhKyRZJlXTI6UzkuLEDdCWBdve9MVPWbMHJaSpV5UBXgGFVwHIDyRZybMTGeLVL4 RAI3PYQwUHGtSM0MCvPmTTFlPJRcYLjtNGYhBULwbv9UGXLgNZTbXOEsXHYeMTLrECDmSZouTQRoAWJ7 QNQ5OFFsEVUrGN7YVdImYLRbVAUaMImuRTSoCIOnmy 3QGGDoEFGeOfZbVPUgWGQtEDLdYGbpIJKnSEO7KVX9PKKgCJKlPC1XVjHjDGltXTIRPux5TFqbN4c0EV EwFi0AM7Qkz8KrUCCgSLLCUMzyPG1wxcWkJNOjNs0FK1wPDryzQcD2IhNjEaX2Qji7BXSnLWOeMtvlVq GiREFkEne4Ni6yJMRwJdVcPYSqZSOkHrnpBECmOtKp Y6TiGnD2ZOQyVpa7LzQdSS2OEr0ELsR5PFU6yNCkMl1HAiyaNW5ITZWGS4BRDg== ID Date Data Source [id number] 07/10/2020 08:51:25 AM [facility] Cmnt XXX-Imp : NoneO+P Stl Conc : Iodine wet mount: NO ova and parasites seen. One negative specimen does not rule out the possibility of a parasitic infection. Routine ova and parasite examination does not include Cryptosporidium, Cyclospora, Cystoisospora, or microsporidia.Trichrome stain:NO ova and parasites seen. One negative specimen does not rule out the possibility of a parasitic infection. Routine ova and parasites examination does not include Cryptosporidium, Cystoisospora (Isospora), or Microsporidium. Name Value Range Interpretation Code Description Data Zahraa rce(s) Supporting Document(s) ID Date Data Source [id number] 07/07/2020 10:33:56 AM [facility] Service Cmnt XXX-Imp : NoneGI Panel : PC R ResultsC coli,jej,upsa DNA Stl Ql DILLON non-probe : Not DetectedCdiff tox tcdA, tcdB Stl Ql DILLON non-probe : Polymerase chain reaction is POSITIVE for C. difficile toxin A and/or B gene(s).Isolation precautions required-refer to Infection Control Manual.P shigelloides DNA Stl Ql DILLON non-probe : Not DetectedS ent, bong DNA Stl Ql DILLON non-probe : Not DetectedV chol,para,vul DNA Stl Ql DILLON non-probe : Not DetectedV cholerae DNA Stl Ql DILLON non-probe : Not DetectedY enterocol DNA Stl Ql DILLON non-probe : Not DetectedEAEC Obey plas aggR, aatA St DILLON on-probe : Not DetectedEnteropathogenic E coli : Not DetectedETEC ltA, st1a, st1b tox St DILLON non-probe : Not DetectedE coli stx1,stx2 Stl Ql DILLON non-probe : Not DetectedE coli O157 DNA Stl Ql DILLON non-probe : Not applicableShigella sp,EIEC ipaH St DILLON non-probe : Not DetectedCryptosp DNA Stl Ql DILLON non-probe : Not DetectedC cayetanensis DNA Stl Ql DILLON non-probe : Not DetectedE histolyt DNA Stl Ql DILLON non-probe : Not Detec tedG lamblia DNA Stl Ql DILLON non-probe : Not DetectedAdV 40,41 DNA Stl Ql DILLON non-probe : Not DetectedAstro typ 1to8 RNA Stl Ql DILLON non-probe : Not DetectedNorovirus GI, II RNA Stl Ql DILLON non-probe : Not DetectedRotavirus A RNA Stl Ql DILLON non-probe : Not DetectedSapo I,II,IV,V RNA Stl Ql DILLON non-probe : Not DetectedC dif Tox A+B Stl Ql IA : POSITIVE for C. difficile toxin A and/or B by enzyme immunoassay. Polymerase chain reaction (PCR) detects toxin A and/or B genes and may be positive in patients without C. difficile disease. Enzyme immunoassay detects toxin, and if positive, is consistent with active disease. Clinical correlation is recommended for PCR-positive/toxin-negative results. 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 [file] [id number] ID Date Data Source [id number] 07/06/2020 11:51:18 AM [facility] Name Value Range Interpretation Code Description Data Zahraa rce(s) Supporting Document(s) Leukocytes [#/volume] in Blood by Automated count 6.1 10*3/uL 4-10 [facility] Erythrocytes [#/volume] in Blood by Automated count 3.13 10*6/uL 4.6- 6.1 L [facility] Hemoglobin [Mass/volume] in Blood 9.9 g/dL 13.5-18 L [facility] Hematocrit [Volume Fraction] of Blood by Automated count 28.7 % 4 1-53 L [facility] Erythrocyte mean corpuscular volume [Entitic volume] by Auto mated count 91.4 fL 80-96 [facility] Erythrocyte mean corpuscular hemoglobin [Entitic mass] by Automated count 31.7 pg 27-33 [facility] Erythrocyte mean corpuscular hemoglobin concentration [Mass/volume] by Automated count 34.6 g/[facility].0[facility] width [Ratio] by Automated count 14.7 % 11.5-14.5 H [facility] Platelets [#/volume] in Blood by Automated count 71 10*3/uL 150-400 L [facility] Differential cell count method - Blood [facility] Neutrophils/100 leukocytes in Blood by Automated count 80 % [facility] Lymphocytes/100 leukocytes in Blood by Automated count 9 % [facility] Monocytes/100 leukocytes in Blood by Automated count 11 % [facility] Eosinophils/100 leukocytes in Blood by Automated count 0 % [facility] Basophils/100 leukocytes in Blood by Automated count 0 % [facility] Neutrophils [#/volume] in Blood by Automated count 4.88 10*3/uL 1.8-7 .0 [facility] Lymphocytes [#/volume] in Blood by Automated count 0.55 10*3/uL 1.2-4 .0 L [facility] Monocytes [#/volume] in Blood by Automated count 0.64 10*3/uL 0-0.8 [facility] Eosinophils [#/volume] in Blood by Automated count 0.00 10*3/uL 0-0.5 [facility] Basophils [#/volume] in Blood by Automated count 0.00 10*3/uL 0-0.2 [facility] Nucleated erythrocytes/100 leukocytes [Ratio] in Blood by Automated count 0 /100{WBCs} 0-0 [facility] ID Date Data Source [id number] 07/06/2020 12:13:46 PM [facility] Name Value Range Interpretation Code Description Data Zahraa rce(s) Supporting Document(s) Bicarbonate [Moles/volume] in Serum 16 mmol/L 22-29 L [facility] Chloride [Moles/volume] in Serum or Plasma 89 mmol/L 98-107 L [facility] Creatinine [Mass/volume] in Serum or Plasma 1.38 mg/dL 0.70-1.20 H [facility] Glucose [Mass/volume] in Serum or Plasma 179 mg/dL 70-140 H [facility] Potassium [Moles/volume] in Serum or Plasma 3.4 mmol/L 3.4-5.1 [facility] Sodium [Moles/volume] in Serum or Plasma 130 mmol/L 136-145 L [facility] Urea nitrogen [Mass/volume] in Serum or Plasma 35 mg/dL 6-20 H [facility] Anion gap 3 in Serum or Plasma 25 mmol/L 8-15 H [facility] Osmolality of Serum or Plasma by calculation 283 mosm/kg 275-300 [facility] Creatinine/Urea nitrogen [Mass Ratio] in Serum or Plasma 25 [facility] Calcium [Mass/volume] in Serum or Plasma 7.1 mg/dL 8.6-10.0 L [facility] Glomerular filtration rate/1.73 sq M pre dicted among non-blacks [Volume Rate/Area] in Serum or Plasma by Creatinine-based formula (MDRD) 56 mL/min/1.73m2 >60 L [facility] Glomerular filtration rate/1.73 sq M pre dicted among blacks [Volume Rate/Area] in Serum or Plasma by Creatinine-based formula (MDRD) 65 mL/min/1.73m2 >60 [facility] ID Date Data Source [id number] 07/06/2020 12:13:46 PM [facility] Name Value Range Interpretation Code Description Data Zahraa rce(s) Supporting Document(s) Magnesium [Mass/volume] in Serum or Plasma 2.0 mg/dL 1.6-2.6 [facility] ID Date Data Source [id number] 07/06/2020 12:13:46 PM [facility] Name Value Range Interpretation Code Description Data Zahraa rce(s) Supporting Document(s) Phosphate [Mass/volume] in Serum or Plasma 1.7 mg/dL 2.5-4.5 [facility] ID Date Data Source [id number] 07/06/2020 12:09:46 PM [facility] Value Range Interpretation Code Description Data Zahraa rce(s) Supporting Document(s) Lactate [Moles/volume] in Serum or Plasma 1.4 mmol/l 0.5-2.2 [facility] ID Date Data Source [id number] 07/06/2020 08:35:59 AM [facility] Value Range Interpretation Code Description Data Zahraa rce(s) Supporting Document(s) Leukocytes [#/volume] in Blood by Automated count 8.8 10*3/uL 4-10 [facility] Erythrocytes [#/volume] in Blood by Automated count 3.85 10*6/uL 4.6- 6.1 [facility] Hemoglobin [Mass/volume] in Blood 12.1 g/dL 13.5-18 [facility] Hematocrit [Volume Fraction] of Blood by Automated count 35.2 % 4 1-53 [facility] Erythrocyte mean corpuscular volume [Entitic volume] by Auto mated count 91.3 fL 80-96 [facility] Erythrocyte mean corpuscular hemoglobin [Entitic mass] by Automated count 31.5 pg 27-33 [facility] Erythrocyte mean corpuscular hemoglobin concentration [Mass/volume] by Automated count 34.4 g/dL 32.0-36.0 [facility] distribution width [Ratio] by Automated count 14.4 % 11.5-14.5 [facility] Platelets [#/volume] in Blood by Automated count 88 10*3/uL 150-400 [facility] Differential cell count method - Blood [facility] Neutrophils/100 leukocytes in Blood by Automated count 82 % [facility] Lymphocytes/100 leukocytes in Blood by Automated count 6 % [facility] Monocytes/100 leukocytes in Blood by Automated count 12 % [facility] Eosinophils/100 leukocytes in Blood by Automated count 0 % [facility] Basophils/100 leukocytes in Blood by Automated count 0 % [facility] Neutrophils [#/volume] in Blood by Automated count 7.14 10*3/uL 1.8-7 .0 H [facility] Lymphocytes [#/volume] in Blood by Automated count 0.55 10*3/uL 1.2-4 .0 L [facility] Monocytes [#/volume] in Blood by Automated count 1.08 10*3/uL 0-0.8 H [facility] Eosinophils [#/volume] in Blood by Automated count 0.00 10*3/uL 0-0.5 [facility] Basophils [#/volume] in Blood by Automated count 0.01 10*3/uL 0-0.2 [facility] Nucleated erythrocytes/100 leukocytes [Ratio] in Blood by Automated count 0 /100{WBCs} 0-0 [facility] ID Date Data Source [id number] 07/06/2020 06:55:00 AM EST [facility] Patient: JANICE VERMA [facility]ation [facility]VisitID: [id number] [place] [address] [phone], MRegistration Date/Time: 07/05/2020 20:13 Weight:90.7 kg (S). Height/Length:68 inches (S). BMI:30.4 PAST HISTORYProblems:Acute Pain [Active].Anxiety Reaction [Active].Depression [Chronic].Dysuria [Chronic].Benign Prostatic Hypertrophy [Chronic].Peptic Ulcer Disease [Chronic].Mental Illness [Chronic].Depression [Chronic].Substance Abuse [Chronic].Arthritis [Chronic].CVA - Cerebrovascular Accident [Chronic].Gout [Ch ronic].Gastroesophageal Reflux Disease [Chronic].Diabetes Mellitus [Chronic].Diverticulitis [Chronic].Hypertension [Chronic].Back Pain [Chronic].Chronic pain [Chronic].Hyperlipidemia [Chronic].Cirrhosis [ Chronic].Abdominal Pain [Intermittent].Alcoholism [Intermittent].Alcohol abuse [Intermittent].Alcohol Intoxication [Intermittent].Alcoholism [Resolved].Alcohol Intoxication [Resolved].Suicidal Ideation [Resolved].Biliary Colic [Resolved].Suicidal Ideation [Resolved].Contusion [Resolved].Dehydration [Resolved].Abnormal Test [Resolved].Obesity [Resolved].Panic Attack [Resolved].UTI - Urinary Tract Infection [Resolved].Sprain [Resolved]. Medications:Oxygen 3L continously .oxyCODONE HCl Oral 10 mg, unknown , last dose 2 days ago .states he doesnt know any of his meds , states they were lost on a bus . Allergies:Niacin. FAMILY HISTORYNo significant family medical history. (Electronically signed by Edita Jasmine P.A. 07/06/2020 06:44) Name Value Range Interpretation Code Description Data Zahraa rce(s) Supporting Document(s) ID Date Data Source [id number] 07/06/2020 06:54:00 AM [facility] CT SCAN OF THE ABDOMEN AND PELVIS DATE O F EXAMINATION: 07/05/2020 INDICATION: Abdominal pain, hematemesis, cirrhosis COMPARISON: None TECHNIQUE: The patient did receive some oral contrast material. Axial imageswere obtained through the abdomen and pelvis from the lung bases through therectum. Intravenous contrast was not utilized for this examination. One or more of the following dose reduction techniques were utilized ineffectively lowering the radiation dose for this examination: Automated ExposureControl, Adjustment of the mA and/or kV according to patient size, or Iterativereconstruction ABDOMEN FINDINGS: Lung bases are clear. The liver is diffusely diminished inattenuation. There is scalloping the hepatic surface. These findings areconsistent with cirrhosis. The patient is postcholecystectomy. Differentiationof structures in the portal region is difficult given the lack of intravenous ororal contrast. There is a masslike soft tissue density measuring approximately3.4 x 2.8 cm which is betzaida guous with a second more inferior soft tissue massmeasuring approximately 3.0 x 3.3 cm. Whether this represents unenhanced bowelor not is unclear. The more superior of the mass is contiguous with region ofthe head of the pancreas. There is an adjacent loop of bowel which is diffuselythickened which appears to represent transverse colon. The spleen, and adrenalglands are grossly unremarkable. There is trace fluid adjacent to the tip of theliver and stranding within the mesentery of the small bowel. And kidneys aregrossly unremarkable. There is atherosclerotic change of aorta withoutaneurysmal dilatation. PELVIC FINDINGS: No adenopathy, ascites, or abnormal pelvic masses areidentified. The visualized bowel and urinary bladder are unremarkable. IMPRESSION: 1.The liver is diffusely diminished in attenuation and has scalloping of thehepatic surface. Findings are consistent with cirrhosis. X line2. Thickening of transverse colon which can be consistent with colitis.Recommend direct visualization with colonoscopy patient is able to excludeunderlying mass3. Thickening of the distal esophagus. Recommend direct visualization withendoscopy.4. Soft tissue masslike structures in the portal region. This may represent anunenhanced bowel however recommend repeat study with both oral and IV contrast. Electronically signed in PS360 by: Tyler Garcia M.D. 07/06/2020 6:48 EST Name Value Range Interpretation Code Description Data Zahraa rce(s) Supporting Document(s) ID Date Data Source [id number] 07/06/2020 06:44:00 AM [facility] SC[facility] OF THE CHEST WITHOUT CONTRAST DA TE OF EXAMINATION: 07/05/2020 21:50 EST CHEST W/O IV CONTRAST INDICATION: Hematemesis COMPARISON: None TECHNIQUE: Axial images were obtained through the chest from the apex throughthe upper abdomen to include the adrenal glands. Intravenous contrast was notutilized for this examination. One or more of the following dose reduction techniques were utilized ineffectively lowering the radiation dose for this examination: Automated ExposureControl, Adjustment of the mA and/or kV according to patient size, or Iterativereconstruction. FINDINGS: There are coronary calcifications. There is circumferential thickeningof the esophagus. Portions of the esophagus are distended and fluid-filled.There is no pleural or pericardial effusion. The lungs are clear. No bony lyticor blastic lesions. IMPRESSION: The lungs are clear. There is circumferential thickening of theesophagus. This could be better evaluated with direct visualization withendoscopy. Electronically signed in PS360 by: Tyler Garcia M.D. 07/06/2020 6:38 EST Name Value Range Interpretation Code Description Data Zahraa rce(s) Supporting Document(s) ID Date Data Source [id number] 07/06/2020 05:10:14 AM [facility] US ABDOMEN COMPLETE [id number] RESULTInt erpreted by:RYDER PatelROCEDURE INFORMATION: Exam: US Abdomen Complete Exam date [...] DOCUMENT HAS BEEN ELECTRONICALLY SIGNED BY CHRISTIE MORSE MDThis document has been electronically signed by Christie Morse MD on 07/06/2020 5:10 AM Name Value Range Interpretation Code Description Data Zahraa rce(s) Supporting Document(s) ID Date Data Source [id number] 07/06/2020 02:29:00 PM [facility] Name Value Range Interpretation Code Description Data Zahraa rce(s) Supporting Document(s) Color of Urine [facility] Clarity of Urine [facility] Specific gravity of Urine by Refractometry automated 1.016 1.003 -1.030 [facility] pH of Urine by Automated test strip 5.0 5.0-8.0 [facility] Protein [Mass/volume] in Urine by Automated test strip 30 mg/dL Neg ative [facility] Glucose [Mass/volume] in Urine by [facility] Ketones [Mass/volume] in Urine by Automated test strip 80 [facility] Bilirubin.total [Presence] in Urine by Automated test strip Negative [facility] Hemoglobin [Presence] in Urine by Automated test strip Neg ative [facility] Leukocyte esterase [Presence] in Urine by Automated test strip Negative [facility] Nitrite [Presence] in Urine by Automated test strip Negati ve [facility] Leukocytes [#/area] in Urine sediment by Automated count 0 -5 [facility] Erythrocytes [#/area] in Urine sediment by Automated count 1 /HPF 0-3 [facility] Epithelial cells.squamous [#/area] in Urine sediment by Auto mated count 1 /HPF None [facility] Mucus [#/area] in Urine sediment by Microscopy low power field None [facility] ID Date Data Source [id number] 07/06/2020 03:42:08 PM [facility] Name Value Range Interpretation Code Description Data Zahraa rce(s) Supporting Document(s) Creatinine [Mass/volume] in Urine 56.0 mg/dl [facility] ID Date Data Source [id number] 07/06/2020 03:42:08 PM [facility] Value Range Interpretation Code Description Data Zahraa rce(s) Supporting Document(s) Amphetamine [Presence] in Urine by Screen method Negative [facility] Benzodiazepines [Presence] in Urine by Screen method Negat [facility] Cannabinoids [Presence] in Urine by Screen method Negative [facility] Benzoylecgonine [Presence] in Urine by Screen method Negat [facility] Methadone [Presence] in Urine by Screen method Negative [facility] Opiates [Presence] in Urine by Screen method Negative [facility] Oxycodone [Presence] in Urine by Screen method Negative [facility] (NOTE)Positive results are presumptive a nd unconfirmed;confirmatorytesting can be ordered at the [facility] at [phone] [facility] at [phone] within 5 days of collection. Fentanyl+Norfentanyl [Presence] in Urine by Screen method Negative [facility] (NOTE)Positive results are presumptive a nd unconfirmed;confirmatorytesting can be ordered at the [facility] at [phone] [facility] at [phone] within 5 days of collection. Service comment [facility] Results below the indicated cutoff (ng/m L), are reported as"Negative." Note: for medical purposes only; not valid for legalor employment testing. ID Date Data Source [id number] 07/06/2020 03:42:08 PM [facility] Value Range Interpretation Code Description Data Zahraa rce(s) Supporting Document(s) Sodium [Moles/volume] in Urine 40 mmol/L [facility] ID Date Data Source [id number] 07/06/2020 05:50:54 AM [facility] Value Range Interpretation Code Description Data Zahraa rce(s) Supporting Document(s) Prothrombin time (PT) 15.5 s 12.5-14.9 H [facility] INR in Platelet poor plasma by Coagulation assay 1.21 [facility] Routine intensity oral anticoagulation I NR is typically 2.0-3.0. Target INR must be clinically individualized. ID Date Data Source [id number] 07/06/2020 05:50:54 AM [facility] Value Range Interpretation Code Description Data Zahraa rce(s) Supporting Document(s) aPTT in Platelet poor plasma by Coagulation assay 29.7 s 24.0-33. 0 [facility] ID Date Data Source [id number] 07/06/2020 05:54:53 AM [facility] Value Range Interpretation Code Description Data Zahraa rce(s) Supporting Document(s) Ethanol [Mass/volume] in Serum or Plasma 0.06 g/dl Negative A [facility] ID Date Data Source [id number] 07/06/2020 06:15:03 AM [facility] Value Range Interpretation Code Description Data Zahraa rce(s) Supporting Document(s) Albumin [Mass/volume] in Serum or Plasma by Bromocresol green (BCG) dye binding method 3.3 g/dL 3.5-5.2 [facility] Bilirubin.total [Mass/volume] in Serum or Plasma 0.6 mg/dL <1.2 [facility] Calcium [Mass/volume] in Serum or Plasma 6.7 mg/dL 8.6-10.0 L [facility] Chloride [Moles/volume] in Serum or Plasma 88 mmol/L 98-107 L [facility] Confirmed Creatinine [Mass/volume] in Serum or Plasma 1.39 mg/dL 0.70-1.20 H [facility] Glucose [Mass/volume] in Serum or Plasma 145 mg/dL 70-140 H [facility] Alkaline phosphatase [Enzymatic activity/volume] in Serum or Plasma 66 U/L 40-129 [facility] Potassium [Moles/volume] in Serum or Plasma 3.2 mmol/L 3.4-5.1 [facility] Confirmed Protein [Mass/volume] in Serum or Plasma 5.7 g/dL 6.4-8.3 L [facility] Sodium [Moles/volume] in Serum or Plasma 131 mmol/L 136-145 L [facility] Confirmed Aspartate aminotransferase [Enzymatic activity/volume] in Serum or Plasma 74 U/L <40 H [facility] Urea nitrogen [Mass/volume] in Serum or Plasma 41 mg/dL 6-20 H [facility] Osmolality of Serum or Plasma by calculation 286 mosm/kg 275-300 [facility] Confirmed Creatinine/Urea nitrogen [Mass Ratio] in Serum or Plasma 30 [facility] Bicarbonate [Moles/volume] in Serum 12 mmol/L 22-29 L [facility] Confirmed Alanine aminotransferase [Enzymatic activity/volume] in Seru m or Plasma 37 U/L <41 [facility] Anion gap 3 in Serum or Plasma 32 mmol/L 8-15 H [facility] Confirmed Glomerular filtration rate/1.73 sq M pre dicted among non-blacks [Volume Rate/Area] in Serum or Plasma by Creatinine-based formula (MDRD) 56 mL/min/1.73m2 >60 [facility] Glomerular filtration rate/1.73 sq M pre dicted among blacks [Volume Rate/Area] in Serum or Plasma by Creatinine-based formula (MDRD) 64 mL/min/1.73m2 >60 [facility] ID Date Data Source [id number] 07/06/2020 11:08:29 AM [facility] Name Value Range Interpretation Code Description Data Zahraa rce(s) Supporting Document(s) Magnesium [Mass/volume] in Serum or Plasma 1.7 mg/dL 1.6-2.6 [facility] ID Date Data Source [id number] 07/06/2020 11:08:29 AM [facility] Value Range Interpretation Code Description Data Zahraa rce(s) Supporting Document(s) Phosphate [Mass/volume] in Serum or Plasma 2.6 mg/dL 2.5-4.5 [facility] ID Date Data Source [id number] 07/06/2020 06:19:33 AM [facility] Value Range Interpretation Code Description Data Zahraa rce(s) Supporting Document(s) HIV 1+2 Ab+HIV1 p24 Ag [Presence] in Serum or Plasma by Immu noassay Non Reactive [facility] Negative for HIV-1 p24 antigenand HIV-1/ HIV-2 antibodies. Nolaboratory evidence of HIVinfection. ID Date Data Source [id number] 07/06/2020 06:14:13 AM [facility] Value Range Interpretation Code Description Data Zahraa rce(s) Supporting Document(s) Hepatitis A virus IgM Ab [Presence] in Serum or Plasma by Im munoassay Non Reactive [facility] No acute infection, susceptible to infec tion. ID Date Data Source [id number] 07/06/2020 06:14:13 AM [facility] Value Range Interpretation Code Description Data Zahraa rce(s) Supporting Document(s) Hepatitis B virus surface Ag [Presence] in Serum or Plasma b y Immunoassay Non Reactive [facility] No active or previous infection. Suscept ible to infection. ID Date Data Source [id number] 07/06/2020 06:14:13 AM [facility] Value Range Interpretation Code Description Data Zahraa rce(s) Supporting Document(s) Hepatitis B virus core IgM Ab [Presence] in Serum or Plasma by Immunoassay Non Reactive [facility] IgM antibodies to HBc were not detected, does not exclude the possibility of exposure to HBV. ID Date Data Source [id number] 07/06/2020 06:14:13 AM [facility] Value Range Interpretation Code Description Data Zahraa rce(s) Supporting Document(s) Hepatitis C virus Ab [Presence] in Serum or Plasma by Immuno assay [facility] Reactive [facility] No serological evidence of active infect ion. If recent exposure is suspected, test for HCV RNA. ID Date Data Source [id number] 07/06/2020 05:55:54 AM [facility] Value Range Interpretation Code Description Data Zahraa rce(s) Supporting Document(s) Lactate [Moles/volume] in Serum or Plasma 5.1 mmol/l 0.5-2.2 [facility] Results called to and read back by 6I KRISTYN RIOS AT 0570 BY 3326 ID Date Data Source [id number] 07/06/2020 05:52:43 AM [facility] Name Value Range Interpretation Code Description Data Zahraa rce(s) Supporting Document(s) Ammonia [Moles/volume] in Plasma 19 umol/L 16-60 [facility] ID Date Data Source [id number] 07/11/2020 08:53:02 AM [facility] Cmnt XXX-Imp : L BICEPMicroorgan ism XXX Cult : No growth 5 days Name Value Range Interpretation Code Description Data Zahraa rce(s) Supporting Document(s) ID Date Data Source [id number] 07/11/2020 08:53:02 AM [facility] Service Cmnt XXX-Imp : CENTRAL LINEMicro organism XXX Cult : No growth 5 days Name Value Range Interpretation Code Description Data Zahraa rce(s) Supporting Document(s) ID Date Data Source [id number] 07/07/2020 01:37:29 PM [facility] Cmnt XXX-Imp : NoneMicroorganism XXX Cult : No growth 1 day Name Value Range Interpretation Code Description Data Zahraa rce(s) Supporting Document(s) ID Date Data Source [id number] 07/06/2020 02:24:54 AM [facility] Name Value Range Interpretation Code Description Data Zahraa rce(s) Supporting Document(s) Glucose [Mass/volume] in Capillary blood by Glucometer 173 mg/dL 70- 140 H [facility] ID Date Data Source [id number] 07/06/2020 05:25:00 AM [facility] TSYSORDER [id number] Name Value Range Interpretation Code Description Data Zahraa rce(s) Supporting Document(s) URINE RBC 3-5 /hpf 0-3 H [facility] URINE WBC 1-3 /hpf 0-5 [facility] URINE EPITHELIAL CELLS 1+ /hpf 0 [facility]spital URINE BACTERIA 1+ NONE SEEN [facility] URINE HYALINE CAST 10-30 /LPF 0 [facility] ID Date Data Source [id number] 07/06/2020 12:24:00 AM [facility] TSYSORDER [id number] Name Value Range Interpretation Code Description Data Zahraa rce(s) Supporting Document(s) URINE COLOR. [facility] URINE APPEARANCE CLEAR [facility] URINE GLUCOSE (UA) NEGATIVE mg/dL NEGATIVE [facility] URINE BILIRUBIN 1+(SMALL) NEGATIVE [facility] URINE KETONE 80(LARGE) mg/dL NEGATIVE [facility] lidya SPECIFIC GRAVITY,URINE 1.020 1.001-1.035 [facility] URINE BLOOD 2+(MODERATE) NEGATIVE [facility] PH,URINE 5.5 5.0-9.0 [facility] URINE PROTEIN 1+(30) mg/dL NEGATIVE [facility] URINE UROBILINOGEN NORMAL(0.2-1) mg/dL 0-1 [facility] URINE NITRATE NEGATIVE NEGATIVE [facility] URINE LEUKOCYTE ESTERASE NEGATIVE NEGATIVE [facility] ID Date Data Source [id number] 07/06/2020 12:21:00 AM [facility] TSYSORDER [id number] Name Value Range Interpretation Code Description Data Zahraa rce(s) Supporting Document(s) AMMONIA < 10 umol/L 11-32 [facility] ID Date Data Source [id number] 07/05/2020 11:29:00 PM [facility] TSYSORDER [id number] Name Value Range Interpretation Code Description Data Zahraa rce(s) Supporting Document(s) COVID-19 NEGATIVE NEGATIVE [facility] Negative results should be treated as pr esumptive and, ifinconsistent with clinical signs and symptoms or necessaryfor patient management, should be tested with differentauthorized or cleared molecular tests.Negative results do not preclude SARS-CoV-2 infection andshould not be used as the sole basis for patient managementdecisions.This is a rapid molecular in vitro diagnostic test utilizingan isothermal nucleic acid amplification technology intendedfor the qualitative detection of nucleic acid from the SARS-CoV-2 viral RNA in direct nasal, nasopharyngeal orthroat swabs from individuals who are suspected of COVID-19.Results are for the indentification of SARS-CoV-2 RNA. [id number] RNA is generally detectable in respiratorysamples during the actue phase of infection. ID Date Data Source [id number] 07/05/2020 11:10:00 PM [facility] Name Value Range Interpretation Code Description Data Zahraa rce(s) Supporting Document(s) COVID-19 [facility] This lab was ordered by [facility] and reported by [facility]. ID Date Data Source [id number] 07/12/2020 09:25:00 AM EST [facility] Name Value Range Interpretation Code Description Data Zahraa rce(s) Supporting Document(s) [facility] Date Data Source [id number] 07/05/2020 09:38:00 PM EST [facility] TSYSORDER [id number] Name Value Range Interpretation Code Description Data Zahraa rce(s) Supporting Document(s) LACTIC ACID 9.8 mmol/L 0.4-2.0 H [facility] SAMPLE SLIGHTLY HEMOLYZED CALLED RESULTS TO MORIS IN ED AT 2138 ON 07/05/20 ID Date Data Source [id number] 07/05/2020 09:29:00 PM EST [facility] TSYSORDER [id number] Name Value Range Interpretation Code Description Data Zahraa rce(s) Supporting Document(s) GLUCOSE 174 mg/dL 74-106 H [facility] BLOOD UREA NITROGEN 51 mg/dL 7-18 *H [facility] ital CREATININE 2.7 mg/dL 0.7-1.3 H [facility] SODIUM 127 mmol/L 136-145 L [facility] POTASSIUM 3.1 mmol/L 3.5-5.1 L [facility] CHLORIDE 78 mmol/L 98-107 *L [facility] CO2 14 mmol/L 21-32 *L [facility] CALCIUM 8.2 mg/dL 8.5-10.1 L [facility] ANION GAP 35.0 mmol/L 5-12 H [facility] GLOMERULAR FILTRATION RATE 25 mL/min [facility] GFR IS CALCULATED IN mL/min/1.73m2 VINICIUS L FUNCTION: >90MILDLY DECREASED: 60-89MILDY TO MODERATELY DECREASED: 45-59 MODERATELY TO SEVERELY DECREASED: 30-44SEVERELY DECREASED: 15-29RENAL FAILURE: <15 AST 118 U/L 15-37 *H [facility] ALT 61 U/L 12-78 [facility] ALKALINE PHOSPHATASE 100 U/L 46-116 [facility] pital TOTAL BILIRUBIN 0.8 mg/dL 0.2-1.0 [facility] TOTAL PROTEIN 8.2 g/dl 6.4-8.2 [facility] ALBUMIN 3.9 gm/dL 3.4-5.0 [facility] ID Date Data Source [id number] 07/05/2020 09:29:00 PM [facility] TSYSORDER [id number] Name Value Range Interpretation Code Description Data Zahraa rce(s) Supporting Document(s) MAGNESIUM 2.7 mg/dL 1.8-2.4 H [facility] ID Date Data Source [id number] 07/05/2020 09:29:00 PM EST [facility] TSYSORDER [id number] Name Value Range Interpretation Code Description Data Zahraa rce(s) Supporting Document(s) LIPASE 124 U/L 73-393 [facility] ID Date Data Source [id number] 07/05/2020 09:24:00 PM EST [facility] TSYSORDER [id number] Name Value Range Interpretation Code Description Data Zahraa rce(s) Supporting Document(s) ETHYL ALCOHOL 0.26 % 0-0.01 H [facility] ID Date Data Source [id number] 07/05/2020 09:17:00 [facility] [id number] Name Value Range Interpretation Code Description Data Zahraa rce(s) Supporting Document(s) TSH 1.03 uIU/mL 0.36-3.74 [facility] ID Date Data Source [id number] 07/05/2020 09:12:00 PM [facility] TSYSORDER [id number] Name Value Range Interpretation Code Description Data Zahraa rce(s) Supporting Document(s) PROTHROMBIN TIME (PATIENT) 10.6 SECONDS 9.1-11.6 [facility] INR 1.02 0.87-1.06 [facility] ID Date Data Source [id number] 07/05/2020 09:12:00 PM EST [facility] TSYSORDER [id number] Name Value Range Interpretation Code Description Data Zahraa rce(s) Supporting Document(s) PARTIAL THROMBOPLASTIN TIME 24.4 SECONDS 21.2-27.3 [facility] ID Date Data Source [id number] 07/05/2020 08:48:00 PM EST [facility] TSYSORDER [id number] Name Value Range Interpretation Code Description Data Zahraa rce(s) Supporting Document(s) WHITE BLOOD COUNT 16.4 K/mm3 4.0-10.0 [facility] RED BLOOD COUNT 5.20 M/mm3 4.50-6.00 [facility] HEMOGLOBIN 16.4 gm/dL 14.0-18.0 [facility] HEMATOCRIT 45.2 % 42.0-54.0 [facility] MEAN CELL VOLUME 86.9 fl 80-96 [facility] MEAN CORPUSCULAR HEMOGLOBIN 31.5 pg 27.0-31.0 H [facility] MEAN CORPUSCULAR HGB CONC 36.3 g/dl 32.0-36.0 H [facility] RED CELL DISTRIBUTION WIDTH 13.3 % 10.0-14.5 [facility] PLATELET COUNT 198 K/mm3 172-450 [facility] MEAN PLATELET VOLUME 11.0 fl 9.0-13.0 [facility] pital GRAN % 87.9 % 50-80.0 H [facility] IG% 0.1 % 0.0-0.2 [facility] LYMPH % 4.5 % 25.0-50.0 *L [facility] MONO % 7.3 % 2.0-10.0 [facility] EOS % 0.1 % 0-5.0 [facility] BASO % 0.1 % 0.0-2.0 [facility] GRAN # 14.4 K/mm3 2.0-8.00 H [facility] IG# 0.0 K/mm3 0.0-0.2 [facility] LYMPH # 0.7 K/mm3 1.0-5.0 L [facility] MONO # 1.2 K/mm3 0.10-1.20 [facility] EOS # 0.0 K/mm3 0.0-0.5 [facility] BASO # 0.0 K/mm3 0.0-0.2 [facility] ID Date Data Source [id number] 07/12/2020 09:25:00 AM EST [facility] Name Value Range Interpretation Code Description Data Zahraa rce(s) Supporting Document(s) [facility] ID Date Data Source [id number] 07/24/2019 08:32:00 PM EST [facility] Patient: JANICE VERMA Observation [facility]VisitID: [id number] [place] [address] [phone], MRegistration Date/Time: 07/24/2019 17:27 Weight:99.7 kg (S). Height/Length:68 inches (S). 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].Mental Illness [Chronic].Hyperlipidemia [Chronic].Hypertension [Chronic].Substance Abuse [Chronic].Gout [Chronic].Obesity [Chronic].Chronic pain [Chronic].Gastroesophageal Reflux Disease [Chronic].CVA - Cerebrovascular Accident [Chronic].Diverticulitis [Chronic].Depression [Chronic].Diabetes Mellitus [Chronic].Back Pain [Chronic].Arthritis [Chronic].Hypertension.Diabetes Mellitus.CVA - Cerebrovascular Accident.Benign Prostatic Hypertrophy.Contusion.Vomiting.Abnormal Test.Dehydration.Anxiety Reaction.Alcohol Intoxication.Depression.Sprain.Panic Attack.Dysuria.UTI - Urinary Tract Infection.Alcohol Intoxication [Resolved].Alcohol abuse [Resolved].Alcoholism [Resolved].Biliary Colic [Resolved].Alcoholism [Resolved].Suicidal Ideation [Resolved].Abdominal Pain [Resolved].Suicidal Ideation [Resolved].Acute Pain [Resolved]. Additional Surgeries:Appendectomy.Cholecystectomy.Previous Abdominal Surgery. Medications:HydrOXYzine HCl Oral 100 mg, 3x a day, last dose last night (1 or 2 tablets).MetFORMIN HCl Oral 500 mg, 2x a day, last dose .Tamsulosin HCl Oral unk, last dose a couple days ago. Allergies:Niacin. FAMILY HISTORYNo significant family medical history. (Electronically signed by Edita Jasmine, PBurke 07/24/2019 19:54) Mati mccabe JANICE VERMA VisitID: [id number] Date: 07/24/2019 07/24/2019 20:30indomethacin 25 mg capsule Take 1 capsule every eight hours as needed for pain for 5 days -- Dispense 15 capsule. Refills: 0. Substitution permitted.Pharmacy - [phone] [place] [address]. FaxNumber: [phone].(Electronically signed by Edita Jasmine - 07/24/2019 20:30) Name Value Range Interpretation Code Description Data Zahraa rce(s) Supporting Document(s) ID Date Data Source [id number] 07/24/2019 07:56:00 PM EST [facility] Patient: JANICE VERMA [id number] [place] [address] [phone], MRegistration Date/Time: 07/24/2019 17:27 Weight:99.7 kg (S). Height/Length:68 inches (S). 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].Mental Illness [Chronic].Hyperlipidemia [Chronic].Hypertension [Chronic].Substance Abuse [Chronic].Gout [Chronic].Obesity [Chronic].Chronic pain [Chronic].Gastroesophageal Reflux Disease [Chronic].CVA - Cerebrovascular Accident [Chronic].Diverticulitis [Chronic].Depression [Chronic].Diabetes Mellitus [Chronic].Back Pain [Chronic].Arthritis [Chronic].Hypertension.Diabetes Mellitus.CVA - Cerebrovascular Accident.Benign Prostatic Hypertrophy.Contusion.Vomiting.Abnormal Test.Dehydration.Anxiety Reaction.Alcohol Intoxication.Depression.Sprain.Panic Attack.Dysuria.UTI - Urinary Tract Infection.Alcohol Intoxication [Resolved].Alcohol abuse [Resolved].Alcoholism [Resolved].Biliary Colic [Resolved].Alcoholism [Resolved].Suicidal Ideation [Resolved].Abdominal Pain [Resolved].Suicidal Ideation [Resolved].Acute Pain [Resolved]. Additional Surgeries:Appendectomy.Cholecystectomy.Previous Abdominal Surgery. Medications:HydrOXYzine HCl Oral 100 mg, 3x a day, last dose last night (1 or 2 tablets).MetFORMIN HCl Oral 500 mg, 2x a day, last dose .Tamsulosin HCl Oral unk, last dose a couple days ago. Allergies:Niacin. FAMILY HISTORYNo significant family medical history. (Electronically signed by Edita Jasmine P.A. 07/24/2019 19:54) Name Value Range Interpretation Code Description Data [facility] rce(s) Supporting Document(s) ID Date Data Source [id number] 07/22/2019 10:46:00 AM EST [facility] Patient: JANICE VERMA [facility]ation [facility]VisitID: [id number] [place] [address] [phone], MRegistration Date/Time: 07/21/2019 14:03 Weight:99.7 kg (S). Height/Length:68 inches (S). 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].Gout [Chronic].Gastroesophageal Reflux Disease [Chronic].Hyperlipidemia [Chronic].Mental Illness [Chronic].Hypertension [Chronic].Obesity [Chronic].Substance Abuse [Chronic].Chronic pain [Chronic].CVA - Cerebrovascular Accident [Chronic].Depression [Chronic].Diabetes Mellitus [Chronic].Arthritis [Chronic].Back Pain [Chronic].Diverticulitis [Chronic].Benign Prostatic Hypertrophy.Vomiting.Anxiety Reaction.Dehydration.Alcohol Intoxication.Abnormal Test.Depression.Dysuria.Panic Attack.Alcohol Intoxication [Resolved].Alcohol abuse [Resolved].Alcoholism [Resolved].Biliary Colic [Resolved].Alcoholism [Resolved].Acute Pain [Resolved].Abdominal Pain [Resolved].Suicidal Ideation [Resolved].Suicidal Ideation [Resolved]. Additional Surgeries:Appendectomy.Cholecystectomy.Previous Abdominal Surgery. Medications:HydrOXYzine HCl Oral 100 mg, 3x a day, last dose last night (1 or 2 tablets).MetFORMIN HCl Oral 500 mg, 2x a day, last dose a month ago.Tamsulosin HCl Oral unk, last dose a couple days ago. Allergies:Gabapentin.Niacin.(hives). FAMILY HISTORYNo significant family medical history. (Electronically signed by Edita Jasmine, P.A. 07/21/2019 18:27) Name Value Range Interpretation Code Description Data [facility] rce(s) Supporting Document(s) ID Date Data Source [id number] 07/24/2019 12:02:00 PM EST [facility] Name Value Range Interpretation Code Description Data [facility] rce(s) Supporting Document(s) [facility] ID Date Data Source [id number] 07/21/2019 03:28:00 PM EST [facility] TSYSORDER [id number] Name Value Range Interpretation Code Description Data Zahraa rce(s) Supporting Document(s) URINE RBC NONE SEEN /hpf 0-3 [facility] URINE WBC NONE SEEN /hpf 0-5 [facility] URINE EPITHELIAL CELLS 1+ /hpf 0 [facility] URINE BACTERIA TRACE NONE SEEN H [facility] ID Date Data Source [id number] 07/21/2019 03:56:00 PM [facility] TSYSORDER [id number] Name Value Range Interpretation Code Description Data Zahraa rce(s) Supporting Document(s) GLUCOSE 146 mg/dL 74-106 H [facility] BLOOD UREA NITROGEN 12 mg/dL 7-18 [facility] ital CREATININE 1.2 mg/dL 0.7-1.3 [facility] SODIUM 135 mmol/L 136-145 L [facility] POTASSIUM 3.7 mmol/L 3.5-5.1 [facility] CHLORIDE 97 mmol/L 98-107 L [facility] CO2 28 mmol/L 21-32 [facility] CALCIUM 9.8 mg/dL 8.5-10.1 [facility] ANION GAP 10.0 mmol/L 5-12 [facility] GLOMERULAR FILTRATION RATE 63 mL/min [facility] GFR IS CALCULATED IN mL/min/1.73m2 VINICIUS L FUNCTION: >90MILDLY DECREASED: 60-89MILDY TO MODERATELY DECREASED: 45-59 MODERATELY TO SEVERELY DECREASED: 30-44SEVERELY DECREASED: 15-29RENAL FAILURE: <15 AST 20 U/L 15-37 [facility] ALT 19 U/L 12-78 [facility] ALKALINE PHOSPHATASE 79 U/L 46-116 [facility] pital TOTAL BILIRUBIN 0.8 mg/dL 0.2-1.0 [facility] TOTAL PROTEIN 7.3 g/dl 6.4-8.2 [facility] ALBUMIN 4.0 gm/dL 3.4-5.0 [facility] ID Date Data Source [id number] 07/21/2019 03:12:00 PM [facility] TSYSORDER [id number] Name Value Range Interpretation Code Description Data [facility] rce(s) Supporting Document(s) WHITE BLOOD COUNT 8.9 K/mm3 4.0-10.0 [facility] RED BLOOD COUNT 5.31 M/mm3 4.50-6.00 [facility] HEMOGLOBIN 14.6 gm/dL 14.0-18.0 [facility] HEMATOCRIT 43.6 % 42.0-54.0 [facility] MEAN CELL VOLUME 82.1 fl 80-96 [facility] l MEAN CORPUSCULAR HEMOGLOBIN 27.5 pg 27.0-31.0 [facility] MEAN CORPUSCULAR HGB CONC 33.5 g/dl 32.0-36.0 [facility] RED CELL DISTRIBUTION WIDTH 16.4 % 10.0-14.5 H [facility] PLATELET COUNT 130 K/mm3 172-450 L [facility] MEAN PLATELET VOLUME 11.1 fl 9.0-13.0 [facility] pital GRAN % 59.9 % 50-80.0 [facility] IG% 0.3 % 0.0-0.2 H [facility] LYMPH % 31.2 % 25.0-50.0 [facility] MONO % 7.1 % 2.0-10.0 [facility] EOS % 1.4 % 0-5.0 [facility] BASO % 0.1 % 0.0-2.0 [facility] GRAN # 5.3 K/mm3 2.0-8.00 [facility] IG# 0.0 K/mm3 0.0-0.2 [facility] LYMPH # 2.8 K/mm3 1.0-5.0 [facility] MONO # 0.6 K/mm3 0.10-1.20 [facility] EOS # 0.1 K/mm3 0.0-0.5 [facility] BASO # 0.0 K/mm3 0.0-0.2 [facility] ID Date Data Source [id number] 07/21/2019 03:01:00 PM EST [facility] DATE OF EXAMINATION: 07/21/2019 14:40 ES T TECHNIQUE: 4 views right knee were obtained. HISTORY: Pain FINDINGS: No evidence of acute fracture or dislocation. No knee joint effusion. There isnormal alignment. No aggressive osseous lesions or erosions. Bone mineraldensity is unremarkable. Visualized soft tissues are normal. IMPRESSION: No evidence of acute fracture or dislocation. Electronically signed in [id number] by: Jalyn Oquendo M.D. 07/21/2019 14:56 EST Name Value Range Interpretation Code Description Data Zahraa rce(s) Supporting Document(s) Procedure Social History Code Duration Value Status Description Data Source(s ) Alcohol intake 07/06/2020 12:00:00 AM EST Current non-d timothy of alcohol (finding) completed Current non-drinker of alcohol (finding) [facility] Tobacco use and exposure 07/06/2020 12:00:00 AM EST Never used co mpleted Never used [facility] Cigarette pack-years 07/06/2020 12:00:00 AM EST [facility] Cigarettes smoked current (pack per day) - Reported 07/06/20 12:00:00 AM EST [facility] Smoking 07/06/2020 12:00:00 AM EST Current every day smoker co mpleted Current every day smoker [facility] Vital Signs ID Date Data Source [id number] 09/10/2020 08:14:00 PM EST [facility] Name Value Range Interpretation Code Description Data Source(s) WEIGHT 88.3 kilos 88.3 kilos [facility] al HEIGHT 177.8 centimeters 177.8 centimeters [facility] ID Date Data Source [id number] 07/14/2020 03:31:42 PM [facility] Name Value Range Interpretation Code Description Data Source(s) WEIGHT RECORDED 190.26 lb 190.26 lb [facility] Body height Measured 68 in 68 in [facility] TRANSFER FROM [facility] Patient Treatment Plan of Care Planned Activity Planned Date Details Description Data Source (s) Aspirin 81 MG Delayed Release Oral Tablet 07/10/2020 12:00:00 AM [facility] Magnesium Oxide 400 MG Oral Tablet 07/10/2020 12:00:00 AM [facility] potassium phosphate 155 MG / Sodium Phos phate, Dibasic 852 MG / Sodium Phosphate, Monobasic 130 MG Oral Tablet 07/10/2020 12:00:00 AM [facility] pantoprazole 40 MG Delayed Release Oral Tablet 07/10/2020 12:00:00 AM [facility] Hydroxyzine Hydrochloride 25 MG Oral Tablet 07/10/2020 12:00:00 AM [facility] maalox/lidocaine/diphenhydrAMINE 1:1:1 SWISH & SWAL or al suspension 07/10/2020 12:00:00 AM [facility]spital Folic Acid 1 MG Oral Tablet 07/10/2020 12:00:00 AM [facility] Thiamine 100 MG Oral Tablet 07/10/2020 12:00:00 AM [facility] Lisinopril 10 MG Oral Tablet 07/10/2020 12:00:00 AM [facility] vancomycin 50 mg/mL PO SOLN oral solution 07/10/2020 12:00:00 AM ES T [facility] fentaNYL (SUBLIMAZE) 100 MCG/2ML (PF) injection 07/06/2020 01:37:47 PM [facility] Capsaicin 1 MG/ML Topical Cream 06/24/2019 12:00:00 AM EDT [facility] Aspirin 325 MG Oral Tablet U [facility] Lisinopril 10 MG Oral Tablet [facility] Hydroxyzine Hydrochloride 25 MG Oral Tablet [facility] Indomethacin (INDOCIN PO) [facility] Esomeprazole 20 MG Delayed Release Oral Capsule [facility] Atenolol 100 MG Oral Tablet [facility]
[2020-09-13 00:35] LABS: BASO % 0.5 % (0.0-1.0); EOS # 0.2 10^3/uL (0.0-0.5); EOS % 2.3 % (0.0-3.0); HEMATOCRIT 32.1 % (42.0-52.0); HEMOGLOBIN 10.4 g/dl (13.5-17.5); LYMPH # 1.4 10^3/uL (1.5-5.0); LYMPH % 21.6 % (24.0-44.0); MEAN CORPUSCULAR HEMOGLOBIN 30.3 pg (27.0-33.0); MEAN CORPUSCULAR HGB CONC 32.4 g/dl (32.0-36.5); MEAN CORPUSCULAR VOLUME 93.6 fl (80.0-96.0); MONO # 0.6 10^3/uL (0.0-0.8); MONO % 8.7 % (0.0-5.0); NEUTROPHILS # 4.3 10^3/uL (1.5-8.5); NEUTROPHILS % 65.8 % (36.0-66.0); RED BLOOD COUNT 3.43 10^6/uL (4.30-6.10); WHITE BLOOD COUNT 6.5 10^3/uL (4.0-10.0)
[2020-09-13 00:53] LABS: PLATELET COUNT, AUTOMATED 92 10^3/uL (150-450)
[2020-09-13 00:55] LABS: INR 1.17; PROTHROMBIN TIME 15.2 SECONDS (12.5-14.3)
[2020-09-13 00:56] LABS: FIBRINOGEN 617 MG/DL (221-452)
[2020-09-13 01:10] LABS: ALT/SGPT 16 U/L (12-78); BLOOD UREA NITROGEN 7 MG/DL (7-18); CALCIUM LEVEL 7.6 MG/DL (8.5-10.1); CARBON DIOXIDE LEVEL 27 MEQ/L (21-32); CHLORIDE LEVEL 101 MEQ/L (98-107); CPK CREATINE PHOSPHOKINASE 46 U/L (39-308); GLOMERULAR FILTRATION RATE > 60.0 (>56); GLUCOSE, FASTING 133 MG/DL (70-100); LDH LACTATE DEHYDROGENASE 248 U/L (87-241); POTASSIUM SERUM 4.1 MEQ/L (3.5-5.1); SODIUM LEVEL 133 MEQ/L (136-145)
[2020-09-13 01:11] LABS: ALBUMIN 2.2 GM/DL (3.2-5.2); BILIRUBIN,TOTAL 0.5 MG/DL (0.2-1.0); C REACTIVE PROTEIN QUANTITATIV 4.25 MG/DL (0.00-0.30); CK-MB VALUE MASS < 1.0 NG/ML (<3.6); FERRITIN 333 NG/ML (26-388); MB/CK RELATIVE INDEX 2.17 (< OR =4); TOTAL PROTEIN 6.5 GM/DL (6.4-8.2); TROPONIN I < 0.02 NG/ML (< 0.10)
[2020-09-13 01:15] LABS: D-DIMER QUANT > 4000 ng/ml (<500)
--- OUTSIDE RECORDS SUMMARY | 2020-09-13 01:24 | CCD ---
Author Author [facility] Address Unknown Phone Unavailable Care Team Providers Care Assembler Erector Name Role Phone ADAMS, VALERIY MIKA RPA-C [...] TODD ELKINS DO Unavailable Unavailable TRI BRENNAN STRUCTURAL WORKER-C, MSN Unavailable Unavailab TRI Hilario STRUCTURAL WORKER-C, MSN Unavailable Unavailab le TRI BRENNAN STRUCTURAL WORKER-C, MSN Unavailable Unavailab TRI Hilario STRUCTURAL WORKER-C, MSN Unavailable Unavailab TRI Hilario STRUCTURAL WORKER-C, MSN Unavailable Unavailab le BRENNAN, TRI ANNE-MARIE STRUCTURAL WORKER-C, MSN Unavailable Unavailab le BRENNAN, TRI ANNE-MARIE STRUCTURAL WORKER-C, MSN Unavailable Unavailab le BRENNAN, TRI ANNE-MARIE STRUCTURAL WORKER-C, MSN Unavailable Unavailab le BRENNAN, TRI ANNE-MARIE STRUCTURAL WORKER-C, MSN Unavailable Unavailab le BRENNAN, TRI ANNE-MARIE STRUCTURAL WORKER-C, MSN Unavailable Unavailab le BRENNAN, TRI ANNE-MARIE STRUCTURAL WORKER-C, MSN Unavailable Unavailab le BRENNAN, TRI ANNE-MARIE STRUCTURAL WORKER-C, MSN Unavailable Unavailab le BRENNAN, TRI ANNE-MARIE STRUCTURAL WORKER-C, MSN Unavailable Unavailab le BRENNAN, TRI ANNE-MARIE STRUCTURAL WORKER-C, MSN Unavailable Unavailab le BRENNAN, TRI ANNE-MARIE STRUCTURAL WORKER-C, MSN Unavailable Unavailab le BRENNAN, TRI ANNE-MARIE STRUCTURAL WORKER-C, MSN Unavailable Unavailab le BRENNAN, TRI ANNE-MARIE STRUCTURAL WORKER-C, MSN Unavailable Unavailab le BRENNAN, TIR ANNE-MARIE STRUCTURAL WORKER-C, MSN Unavailable Unavailab le BRENNAN, TRI ANNE-MARIE STRUCTURAL WORKER-C, MSN Unavailable Unavailab le BRENNAN, TRI ANNE-MARIE STRUCTURAL WORKER-C, MSN Unavailable Unavailab le BRENNAN, TRI ANNE-MARIE STRUCTURAL WORKER-C, MSN Unavailable Unavailab le BRENNAN, TRI ANNE-MARIE STRUCTURAL WORKER-C, MSN Unavailable Unavailab le BRENNAN, TRI ANNE-MARIE STRUCTURAL WORKER-C, MSN Unavailable Unavailab le BRENNAN, TRI ANNE-MARIE STRUCTURAL WORKER-C, MSN Unavailable Unavailab le BRENNAN, TRI ANNE-MARIE STRUCTURAL WORKER-C, MSN Unavailable Unavailab le BRENNAN, TRI ANNE-MARIE STRUCTURAL WORKER-C, MSN Unavailable Unavailab le BRENNAN, TRI ANNE-MARIE STRUCTURAL WORKER-C, MSN Unavailable Unavailab le BRENNAN, TRI ANNE-MARIE STRUCTURAL WORKER-C, MSN Unavailable Unavailab le BRENNAN, TRI ANNE-MARIE STRUCTURAL WORKER-C, MSN Unavailable Unavailab le BRENNAN, TRI ANNE-MARIE STRUCTURAL WORKER-C, MSN Unavailable Unavailab le BRENNAN, TRI ANNE-MARIE STRUCTURAL WORKER-C, MSN Unavailable Unavailab le BRENNAN, TRI ANNE-MARIE STRUCTURAL WORKER-C, MSN Unavailable Unavailab le BRENNAN, TRI ANNE-MARIE STRUCTURAL WORKER-C, MSN Unavailable Unavailab le BRENNAN, TRI ANNE-MARIE STRUCTURAL WORKER-C, MSN Unavailable Unavailab le BRENNAN, TRI ANNE-MARIE STRUCTURAL WORKER-C, MSN Unavailable Unavailab le BRENNAN, TRI ANNE-MARIE STRUCTURAL WORKER-C, MSN Unavailable Unavailab le BRENNAN, TRI ANNE-MARIE STRUCTURAL WORKER-C, MSN Unavailable Unavailab le BRENNAN, TRI ANNE-MARIE STRUCTURAL WORKER-C, MSN Unavailable Unavailab le BRENNAN, TRI ANNE-MARIE STRUCTURAL WORKER-C, MSN Unavailable Unavailab le BRENNAN, TRI ANNE-MARIE STRUCTURAL WORKER-C, MSN Unavailable Unavailab le BRENNAN, TRI ANNE-MARIE STRUCTURAL WORKER-C, MSN Unavailable Unavailab le BRENNAN, TRI ANNE-MARIE STRUCTURAL WORKER-C, MSN Unavailable Unavailab le Kat, Judaism Unavailable Unavailable Kat, Judaism Unavailable Unavailable Kat, Judaism Unavailable Unavailable [place], Judaism Unavailable Unavailable Kat, Judaism Unavailable Unavailable MITALI, BILLY EDITA PA Unavailable [...] L NORMA PA Unavailable Unavailable Edick, Whitney PLANT AND MAINTENANCE TECHNICIAN Unavailable Unavailable Edick, Whitney PLANT AND MAINTENANCE TECHNICIAN Unavailable Unavailable Edick, Whitney PLANT AND MAINTENANCE TECHNICIAN Unavailable Unavailable Edick, Whitney PLANT AND MAINTENANCE TECHNICIAN Unavailable Unavailable Edick, Whitney PLANT AND MAINTENANCE TECHNICIAN Unavailable Unavailable Edick, Whitney PLANT AND MAINTENANCE TECHNICIAN Unavailable Unavailable Edick, Whitney PLANT AND MAINTENANCE TECHNICIAN Unavailable Unavailable Edick, Whitney PLANT AND MAINTENANCE TECHNICIAN Unavailable Unavailable Edick, Whitney PLANT AND MAINTENANCE TECHNICIAN Unavailable Unavailable Edick, Whitney PLANT AND MAINTENANCE TECHNICIAN Unavailable Unavailable Edick, Whitney PLANT AND MAINTENANCE TECHNICIAN Unavailable Unavailable Edick, Whitney PLANT AND MAINTENANCE TECHNICIAN Unavailable Unavailable BRENNAN, TRI ANNE-MARIE STRUCTURAL WORKER-C, MSN Unavailable Unavailab le BRENNAN, TRI ANNE-MARIE STRUCTURAL WORKER-C, MSN Unavailable Unavailab le BRENNAN, TRI ANNE-MARIE STRUCTURAL WORKER-C, MSN Unavailable Unavailab le BRENNAN, TRI ANNE-MARIE STRUCTURAL WORKER-C, MSN Unavailable Unavailab le BRENNAN, TRI ANNE-MARIE STRUCTURAL WORKER-C, MSN Unavailable Unavailab le BRENNAN, TRI ANNE-MARIE STRUCTURAL WORKER-C, MSN Unavailable Unavailab le BRENNAN, TRI ANNE-MARIE STRUCTURAL WORKER-C, MSN Unavailable Unavailab le BRENNAN, TRI ANNE-MARIE STRUCTURAL WORKER-C, MSN Unavailable Unavailab le BRENNAN, TRI ANNE-MARIE STRUCTURAL WORKER-C, MSN Unavailable Unavailab le BRENNAN, TRI ANNE-MARIE STRUCTURAL WORKER-C, MSN Unavailable Unavailab le BRENNAN, TRI ANNE-MARIE STRUCTURAL WORKER-C, MSN Unavailable Unavailab le BRENNAN, TRI ANNE-MARIE STRUCTURAL WORKER-C, MSN Unavailable Unavailab le BRENNAN, TRI ANNE-MARIE STRUCTURAL WORKER-C, MSN Unavailable Unavailab le BRENNAN, TRI ANNE-MARIE STRUCTURAL WORKER-C, MSN Unavailable Unavailab le BRENNAN, TRI ANNE-MARIE STRUCTURAL WORKER-C, MSN Unavailable Unavailab le BRENNAN, TRI ANNE-MARIE STRUCTURAL WORKER-C, MSN Unavailable Unavailab le BRENNAN, TRI ANNE-MARIE STRUCTURAL WORKER-C, MSN Unavailable Unavailab le BRENNAN, TRI ANNE-MARIE STRUCTURAL WORKER-C, MSN Unavailable Unavailab le BRENNAN, TRI ANNE-MARIE STRUCTURAL WORKER-C, MSN Unavailable Unavailab le BRENNAN, TRI ANNE-MARIE STRUCTURAL WORKER-C, MSN Unavailable Unavailab le BRENNAN, TRI ANNE-MARIE STRUCTURAL WORKER-C, MSN Unavailable Unavailab le BRENNAN, TRI ANNE-MARIE STRUCTURAL WORKER-C, MSN Unavailable Unavailab le BRENNNA, TRI ANNE-MARIE STRUCTURAL WORKER-C, MSN Unavailable Unavailab le BRENNAN, TRI ANNE-MARIE STRUCTURAL WORKER-C, MSN Unavailable Unavailab le BRENNAN, TRI ANNE-MARIE STRUCTURAL WORKER-C, MSN Unavailable Unavailab le BRENNAN, TRI ANNE-MARIE STRUCTURAL WORKER-C, MSN Unavailable Unavailab le BRENNAN, TRI ANNE-MARIE STRUCTURAL WORKER-C, MSN Unavailable Unavailab le BRENNAN, TRI ANNE-MARIE STRUCTURAL WORKER-C, MSN Unavailable Unavailab le BRENNAN, TRI ANNE-MARIE STRUCTURAL WORKER-C, MSN Unavailable Unavailab le BRENNAN, TRI ANNE-MARIE STRUCTURAL WORKER-C, MSN Unavailable Unavailab le BRENNAN, TRI ANNE-MARIE STRUCTURAL WORKER-C, MSN Unavailable Unavailab le BRENNAN, TRI ANNE-MARIE STRUCTURAL WORKER-C, MSN Unavailable Unavailab le BRENNAN, TRI ANNE-MARIE STRUCTURAL WORKER-C, MSN Unavailable Unavailab le BRENNAN, TRI ANNE-MARIE STRUCTURAL WORKER-C, MSN Unavailable Unavailab le BRENNAN, TRI ANNE-MARIE STRUCTURAL WORKER-C, MSN Unavailable Unavailab le BRENNAN, TRI ANNE-MARIE STRUCTURAL WORKER-C, MSN Unavailable Unavailab le BRENNAN, TRI ANNE-MARIE STRUCTURAL WORKER-C, MSN Unavailable Unavailab le BRENNAN, TRI ANNE-MARIE STRUCTURAL WORKER-C, MSN Unavailable Unavailab le BRENNAN, TRI ANNE-MARIE STRUCTURAL WORKER-C, MSN Unavailable Unavailab le BRENNAN, TRI ANNE-MARIE STRUCTURAL WORKER-C, MSN Unavailable Unavailab le BRENNAN, TRI ANNE-MARIE STRUCTURAL WORKER-C, MSN Unavailable Unavailab le BRENNAN, TRI ANNE-MARIE STRUCTURAL WORKER-C, MSN Unavailable Unavailab le Melissa BAXTER MD [...] G KASSIE MD Unavailable Unavailable AMZUTA, Ashkan KASSEI MD Unavailable Unavailable AMZUTA, Ashkan KASSIE MD [...] PA Unavailable Unavailable Katarzyna Haas MD Unavailable [email or web address] Katarzyna Haas MD Unavailable [email or web address] Katarzyna Haas MD Unavailable [email or web address] Katarzyna Haas MD Unavailable [email or web address] Katarzyna Haas MD Unavailable [email or web address] Katarzyna Haas MD Unavailable [email or web address] Katarzyna Haas MD Unavailable [email or web address] Gisselle Segura MD Unavailable Unavailable [...] Unavailable Colton, Gisselle Cade MD Unavailable Unavailable Cotlon, Gisselle Cade MD Unavailable Unavailable Colton, Gisselle [...] PA Unavailable [facility] Un[facility] Unavailable WILBERTO OWENS Unavailable Unavailable Re-disclosure Warning The records [...] is protected by Article 27-F of the [facility] Public Health law. If you continue you may have access to information: Regarding HIV / AIDS; Provided by facilities licensed or operated by the [facility] Office of Mental Health; or Provided by the [facility] Office for People With Developmental Disabilities. If such information is present, then the following [facility] mandated warning applies: This information has been [...] law may result in a fine or retirement sentence or both. A general authorization for the release of medical or other information is NOT sufficient authorization for further disc losure. Family History Family Member Name Family Member Gender Family Member Status Date o f Status Description Data Source(s) Unknown Male Problem [facility] ([facility]) Encounters Encounter Providers Location Date Indications Data Source(s ) Inpatient Attender: TODD ELKINS DOAttender : TODD ELKINS DOAttender: AMADO BAXTER MDAttender: AMADO BAXTER MDAdmitter: AMADO BAXTER MD [id number] 08/31/2020 03:32:00 AM [facility] - 09/04/2020 01:30:00 PM [facility] ospital Patient discharged. Emergency Attender: NORMA MILLER EMERGENCY ROOM-ER 03:59:00 PM [facility] - 08/30/2020 11:50:00 PM [facility] Patient discharged. Outpatient Attender: NORMA DE LA CRUZ PAConsultant: [facility] [id number] 08/30/2020 03:35:00 PM [facility] Outpatient Attender: ESTHER PACHECO . [id number] 07/06/2020 02:28:33 PM [facility] Outpatient Attender: EDITA JASMINE PAConsultant: [facility] [id number] 07/06/2020 06:41:00 AM [facility] Inpatient Attender: Katarzyna Liuder: KASSIE BROOKS MDAttender: ALINA NORMAN MDAdmitter: KASSIE GOLDJUDSON MDReferrer: ALINA NORMAN MD [id number] 07/06/2020 12:00:00 AM EST - 07/10/2020 04:00:00 PM ES T Noninfective gastroenteritis and colitis, unspecified [facility] Noninfective gastroenteritis and colitis , unspecified Patient discharged. Emergency Attender: EDITA MILLER EMERGENCY ROOM-ER 07/05/2020 08:45:00 PM EST - 07/06/2020 12:35:00 AM [facility] Patient discharged. Outpatient Attender: ADDISON JOY 08/09/2019 01:11:00 PM ES T [facility] 08/09/2019 12:00:00 AM EST eCW1 ([facility] EN[facility] 08/03/2019 12:00:00 AM EST eCW1 ([facility]) [facility] 08/02/2019 12:00:00 AM EST eCW1 ([facility]) [facility] C ENTER 08/02/2019 12:00:00 AM EST eCW1 ([facility]) [facility] 08/02/2019 12:00:00 AM EST eCW1 ([facility]) [facility] C ENTER 07/28/2019 12:00:00 AM EST eCW1 ([facility]) Emergency Attender: EDITA Wintererrer: ANNE-MARIE MCDERMOTT, MSN 07/24/2019 05:33:00 PM EST - 07/24/2019 06:15:00 PM [facility] Patient discharged. Outpatient Attender: EDITA JASMINE PAConsultant: [facility] [id number] 07/21/2019 03:15:00 PM [facility] Emergency Attender: EDITA Valentiner: Damaso MCDERMOTT, MSN EMERGENCY ROOM-ER 07/21/2019 02:23:00 PM EST - 07/21/2019 03:58:00 PM [facility] Patient discharged. Outpatient Attender: JACOB PEDERSENConsul [id number] 07/01/2019 11:00:00 AM EDT [facility] Outpatient Attender: JACOB PEDERSEN 07/01/2019 1 0:52:00 AM [facility] Outpatient Attender: ADDISON JOY 06/28/2019 12:50:00 PM [facility] Outpatient Attender: JACOB PEDERSEN 05/11/2019 0 1:56:00 PM [facility] Outpatient Attender: ADDISON JOY 05/10/2019 01:15:00 PM [facility] Emergency Attender: UCHE Wintererrer : JACOB PEDERSEN EMERGENCY ROOM-ER 04/21/2019 09:35:00 AM EDT - 04/21/2019 02:56:00 PM [facility] Patient discharged. Outpatient Attender: ADDISON JOY 03/29/2019 09:12:00 AM [facility] Outpatient Attender: ANNE-MARIE MCDERMOTT MSNReferr er: ANNE-MARIE MCDERMOTT, JACOB 03/19/2019 09:00:00 AM [facility] Outpatient Attender: ANNE-MARIE MCDERMOTT MSNReferr er: JACOB PEDERSEN EMERGENCY ROOM-[facility] 03/18/2019 01:09:00 PM EDT - 03/18/2019 01:09:00 PM [facility] Outpatient Attender: MIKA LUNDCReferrer: JACOB OTTO EMERGENCY ROOM-LAB REF 03/05/2019 04:18:00 PM EDT - 03/05/2019 04:18:00 PM [facility] Outpatient Attender: MIKA HILL 03/05/2019 02:50:00 PM [facility] Emergency Attender: EDITA GALLARDOeferrer: JACOB MATT EMERGENCY ROOM-ER 03/03/2019 05:24:00 PM EDT - 03/03/2019 05:50:00 PM [facility] Emergency Attender: EDITA GALLARDOeferrer: JACOB MATT EMERGENCY ROOM-ER 03/02/2019 06:19:00 PM EDT - 03/02/2019 08:33:00 PM [facility] Outpatient Attender: JACOB PEDERSEN 02/05/2019 0 2:40:00 PM [facility] Outpatient Attender: Whitney Alicea NP 12/11/2018 02:30:00 P [facility] Outpatient Attender: Whitney Alicea NP 11/13/2018 02:20:00 [facility] Emergency Attender: YOSELIN OWENSReferrer: JACOB LEHMAN EMERGENCY ROOM-ER 10/27/2018 12:47:00 PM [facility] - 10/27/2018 10:50:00 PM [facility] Outpatient Attender: Whitney Alicea NP 10/16/2018 07:53:00 A [facility] Outpatient Attender: ANNE-MARIE MCDERMOTT MSNConsul tant: [facility] [id number] 08/04/2018 09:30:00 AM [facility] Outpatient Attender: GRETA OMALLEY MDReferrer: ANNE-MARIE MCDERMOTT, MSN 03/24/2018 01:00:00 PM EDT - 03/24/2018 01:00:00 PM [facility] Outpatient Attender: Rayo Segura MDReferrer: JACOB MARTINEZ 12/16/2017 07:42:00 AM EDT - 12/16/2017 07:42:00 AM [facility] Emergency Attender: SONAM Wintererrer: JACOB LEHMAN EMERGENCY ROOM-ER 04/30/2017 11:36:00 AM EDT - 04/30/2017 03:25:00 PM [facility] Outpatient Attender: JACOB PEDERSENReferr er: JACOB PEDERSEN EMERGENCY ROOM-ULTRA 04/02/2017 08:14:00 AM EDT - 04/02/2017 08:14:00 AM [facility] Outpatient Attender: Rayo Segura MD 11/05/2016 11:12: 00 AM [facility] Emergency Attender: Kalia Stephens EMERGENCY ROOM-ER 11/01 04:58:00 PM EDT - 11/28/2014 05:50:00 PM [facility] Emergency Attender: FREDI MILLER 10:23:00 AM EDT - 02/12/2014 11:25:00 AM [facility] Medications Medication Brand Name Start Date Product Form Dose Route Admi nistrative Instructions Pharmacy Instructions Status Indications Reaction Description Data Source(s) Alprazolam 0.25 MG Oral Tablet alprazolam (XANAX) tabl et 0.5 mg alprazolam (XANAX) tablet 0.5 mg 07/10/2020 09:30:00 AM EST 0.5 mg Oral completed 0.5 mg, Oral, Once, Fri07/10/20 at 0930, For 1 dose [facility] Medication administered onsite 0.4 ML Enoxaparin sodium 100 MG/ML Prefi lled Syringe enoxaparin sodium (LOVENOX) injection 40 mg enoxaparin sodium (LOVENOX) injection 40 mg 07/10/2020 09:00:00 AM EST 40 mg Subcutaneous active 40 mg, Subcutaneous, Daily Standard, First dose on Fri07/10/20 at 0900, For [address] [facility] Medication administered onsite potassium phosphate 155 MG [...] mEq), and potassium 45 mg (1.1 mEq)
[facility] Medication administered onsite magnesium sulfate in dextrose 5 % infusion (premix) 1 g [id number] 07/10/2020 08:00:00 AM EST 1 g Intravenous completed 1 g, Intravenous, Administer over 60 Minutes, Once, Fri07/10/20 at 0800, For [address] [facility] Medication administered onsite potassium phosphate 155 MG [...] mEq), and potassium 45 mg (1.1 mEq)
[facility] Medication administered onsite potassium phosphate 155 MG / Sodium Phos phate, Dibasic 852 MG / Sodium Phosphate, Monobasic 130 MG Oral Tablet K Phos Mcduffie-Sod Phos Di & Mcduffie 155-852-130 MG Oral Tablet (K PHOS NEUTRAL) K Phos Mcduffie-Sod Phos Di & Mcduffie 155-852-130 MG Oral Tablet (K PHOS NEUTRAL) 07/10/2020 12:00:00 AM EST 250 mg Oral active Take 1 tablet by juliann th Two Times Daily for [address] [facility] Magnesium Oxide 400 MG Oral Tablet Magne sium Oxide 400 (241.3 Mg) MG Oral Tablet (MAG-OX) Magnesium Oxide 400 (241.3 Mg) MG Oral Tablet (MAG-OX) 07/10/2020 12:00:00 AM EST 400 mg Oral active Take 1 tablet by mouth daily for [address] [facility] pantoprazole 40 MG Delayed Release Oral Tablet Pantoprazole Sodium 40 MG Oral Tablet Delayed Release (PROTONIX) Pantoprazole Sodium 40 MG Oral Tablet De layed Release (PROTONIX) 07/10/2020 12:00:00 AM EST 40 mg Oral active Take 1 tablet by mouth Two Times Daily [facility] Hydroxyzine Hydrochloride 25 MG Oral Tab let hydrOXYzine HCl 25 MG Oral Tablet (ATARAX) hydrOXYzine HCl 25 MG Oral Tablet (ATARAX) 07/10/2020 12:00: 00 AM EST 25 mg Oral active Take 1 tablet by mouth every 6 (six) hours as needed for Anxiety [facility] maalox/lidocaine/diphenhydrAMINE 1:1:1 SWISH & SWAL oral [employer] 07/10/2020 12:00:00 AM EST 10 mL Swish & Spit active Swish and spit 10 mLs Four times daily as needed (throat pain)Pharmacy compound: Maalox, lidocaine viscous 2 %, Benadryl 12.5 mg/[address] [facility] Folic Acid 1 MG Oral Tablet Folic Acid 1 MG Oral Table t (FOLVITE) Folic Acid 1 MG Oral Tablet (FOLVITE) 07/10/2020 12:00:00 AM EST 1 mg Oral active Take 1 tablet by mouth daily [facility] Thiamine 100 MG Oral Tablet Thiamine HCl 100 MG Oral T ablet (B-1) Thiamine HCl 100 MG Oral Tablet (B-1) 07/10/2020 12:00:00 AM EST 100 mg Oral active Take [facility] MG Oral Tablet Lisinopril 10 MG Oral Tab let (ZESTRIL) Lisinopril 10 MG Oral Tablet (ZESTRIL) 07/10/2020 12:00:00 AM EST 10 mg Oral active Take 1 tablet by mouth daily [facility] vancomycin 50 mg/mL PO SOLN oral solution [id number] 07/10/2020 12:00:00 AM EST 125 mg Oral active Take 2.5 mLs by mouth every 6 (six) hours for [address] [facility] Aspirin 81 MG Delayed Release Oral Table t Aspirin 81 MG Oral Tablet Delayed Release Aspirin 81 MG Oral Tablet Delayed Release 07/10/2020 12:00:00 AM EST 81 mg Oral active Take 1 tablet by mouth reva mckeon [facility] pantoprazole 40 MG Delayed Release Oral Tablet pantoprazole (PROTONIX) EC tablet 40 mg pantoprazole (PROTONIX) EC tablet 40 mg 07/09/2020 09:00:[address] 40 mg Oral active 40 mg, Ora l, 2 Times Daily, First dose on 07/09/20 at 2100, For 30 days
Do not crush or chew
[facility] Medication administered onsite Monobasic potassium phosphate 0.0408 [...] mg and potassium 144 mg (3.7 mEq)
[facility] Medication administered onsite Alprazolam 0.25 MG Oral Tablet alprazolam (XANAX) tabl et 0.5 mg alprazolam (XANAX) tablet 0.5 mg 07/09/2020 03:15:00 PM EST 0.5 mg Oral completed 0.5 mg, Oral, Once, 07/09/20 at 1515, For 1 dose [facility] Medication administered onsite Hydroxyzine Hydrochloride 25 MG Oral Tablet hydrOXYzin e (ATARAX) tablet 25 mg hydrOXYzine (ATARAX) tablet 25 mg 07/09/2020 09:00:00 AM EST 25 mg Oral active 25 mg, Oral, Every 6 hours PRN, Anxiety, Starting 07/09/20 at 0900, For [address] [facility] Medication administered onsite 50 ML Magnesium Sulfate 40 MG/ML Injecti on magnesium sulfate infusion 2 g/50 mL (premix) magnesium sulfate infusion 2 g/50 mL (premix) 07/09/20 05:45:00 AM EST 2 g Intravenous completed 2 g, Intravenous, Administer over 60 Minutes, Once, 07/09/20 at 0545, For [address] [facility] Medication administered onsite potassium chloride 20 mEq in 100 mL IVPB (premix) [id number] 07/09/2020 05:00:00 AM EST 20 meq Intravenous completed 20 mEq, Intravenous, Administer over 60 Minutes, Every 1 hour, First dose on 07/09/20 at 0500, For [address] [facility] Medication administered onsite Diazepam 5 MG Oral [...] the CIWA score. Assess once patient awakens.
[facility] Medication administered onsite sodium phosphate infusion 12 [...] severe hypophosphatemia.
For central line use only.
[facility] Medication administered onsite potassium phosphate infusion 6 mmol/100 mL (premix) 07/08/2020 01:45:00 PM EST 6 mmol Intravenous completed 6 mmol, Intravenous, at 25 mL/hr, Once, 07/08/20 at 1345, For 1 dose
Slower infusion rates (e.g. over 4 hours) are recommended in patients with renal impairment and/or less severe hypophosphatemia. Product contains 8.8 mEq of potassium.
[facility] Medication administered onsite maalox/lidocaine/diphenhydrAMINE (RADIAT ION MIXTURE) 1:1:1 oral suspension 10 mL 07/08/2020 09:45:00 AM EST 10 mL Swish & Spit acti ve 10 mL, Swish & Spit, Four Times Daily-PRN, throat pain, Starting 07/08/20 at 0945, For [address] [facility] Medication administered onsite Hydroxyzine Hydrochloride 25 MG Oral Tablet hydrOXYzin e (ATARAX) tablet 25 mg hydrOXYzine (ATARAX) tablet 25 mg 07/08/2020 09:36:17 AM EST 25 mg Oral aborted 25 mg, Oral, Every 6 hours PRN, Anxiety, Starting 07/08/20 at 0936, For [address] [facility] Medication administered onsite 24 HR Nicotine 0.292 MG/HR Transdermal P atch nicotine (NICODERM CQ) 7 MG/24HR 1 patch nicotine (NICODERM CQ) 7 MG/24HR 1 patch 07/08/2020 09:00:00 AM EST 1 {patch} Transdermal active 1 patch, Transdermal, Administer over 24 Hours, Daily Standard, First dose on 07/08/20 at 0900, For [address] [facility] Medication administered onsite potassium phosphate 155 MG [...] mEq), and potassium 45 mg (1.1 mEq)
[facility] Medication administered onsite 1 ML Lorazepam 2 MG/ML Injection LORazepam (ATIVAN) in jection 0.5 mg LORazepam (ATIVAN) injection 0.5 mg 07/08/2020 06:15:00 AM EST 0.5 mg Intrave nous completed 0.5 mg, Intravenous, Once, Sat 1 09/07/19 at 0615, For [address] [facility] Medication administered onsite potassium phosphate infusion 6 mmol/100 mL (premix) 07/08/2020 04:00:00 AM EST 6 mmol Intravenous completed 6 mmol, Intravenous, at 25 mL/hr, Once, 07/08/20 at 0400, For 1 dose
Slower infusion rates (e.g. over 4 hours) are recommended in patients with renal impairment and/or less severe hypophosphatemia. Product contains 8.8 mEq of potassium.
[facility] Medication administered onsite sodium phosphate infusion 6 mmol/100 mL (premix) 07/07 09:30:00 PM EST 6 mmol Intravenous completed 6 mmol, Intravenous, at 25 mL/hr, Once, 07/07/20 at 2130, For 1 dose
Slower infusion rate (e.g. over 4 to 6 hours) are recommended in patients with renal impairment and/or less severe hypophosp hatemia.
[facility] Medication administered onsite Nicotine 2 MG Chewing Gum nicotine polacrilex (NICORET TE) gum 2 mg nicotine polacrilex (NICORETTE) gum 2 mg 07/07/2020 03:18:13 PM EST 2 mg O ral active 2 mg, Oral, Every 2 hours PRN, Smoking cessation, Starting Fri07/07/20 at 1518, For [address] [facility] Medication administered onsite maalox/lidocaine/diphenhydrAMINE (RADIAT ION MIXTURE) 1:1:1 oral suspension 10 mL 07/07/2020 03:17:47 PM EST 10 mL Swish & Spit abor tania 10 mL, Swish & Spit, 2 Times Daily PRN, throat pain, Starting Fri07/07/20 at 1517, For [address] [facility] Medication administered onsite Thiamine 100 MG Oral Tablet thiamine (B-1) tablet 100 mg thiamine (B-1) tablet 100 mg 07/07/2020 02:45:00 PM EST 100 mg Oral active 100 mg, Oral, Daily Standard, First dose on Fri07/07/20 at 1445, For [address] [facility] Medication administered onsite Folic Acid 1 MG Oral Tablet folic acid (FOLVITE) table t 1 mg folic acid (FOLVITE) tablet 1 mg 07/07/2020 02:45:00 PM EST 1 mg Oral active 1 mg, Oral, Daily Standard, First dose on Fri07/07/20 at 1445, For [address] [facility] Medication administered onsite potassium phosphate 155 MG [...] mEq), and potassium 45 mg (1.1 mEq)
[facility] Medication administered onsite vancomycin (VANCOCIN) 50 mg/mL oral solution 125 mg [id number] 07/07/2020 11:00:00 AM EST 125 mg Oral active 125 mg, Oral, Every 6 hours, First dose on Fri07/07/20 at 1100, For 10 days
Indicated for severe C. difficile infection, defined as: WBC > 15,000 SCr > 1.5 times the premorbid level Hypotension or shock Ileus Megacolon
[facility] Medication administered onsite Hydroxyzine Hydrochloride 25 MG Oral Tablet hydrOXYzin e (ATARAX) tablet 25 mg hydrOXYzine (ATARAX) tablet 25 mg 07/07/2020 10:56:18 AM EST 25 mg Oral aborted 25 mg, Oral, Every 6 hours PRN, Itching, Starting Fri07/07/20 at 1056, For [address] [facility] Medication administered onsite Atenolol 25 MG Oral Tablet atenolol (TENORMIN) tablet 100 mg atenolol (TENORMIN) tablet 100 mg 07/07/2020 09:00:00 AM EST 100 mg Oral abor tania 100 mg, Oral, Daily Standard, First dose on Fri07/07/20 at 0900, For 30 days
Check vital signs before administering
[facility] Medication administered onsite Lisinopril 10 MG Oral Tablet lisinopril (ZESTRIL) tabl et 10 mg lisinopril (ZESTRIL) tablet 10 mg 07/07/2020 09:00:00 AM EST 10 mg Oral active 10 mg, Oral, Daily Standard, First dose on Fri07/07/20 at 0900, For [address] [facility] Medication administered onsite pantoprazole 4 MG/ML Injectable Solution pantoprazole (PROTONIX) injection 40 mg pantoprazole (PROTONIX) injection 40 mg 07/07/2020 09:00:00 AM EST 40 mg Intravenous aborted 40 mg, Intrav enous, 2 Times Daily, First dose on Fri07/07/20 at 0900, For [address] [facility] Medication administered onsite Oxycodone Hydrochloride 5 MG [...] only) require Pain Service consultation and approval.
[facility] Medication administered onsite Oxycodone Hydrochloride 5 MG [...] only) require Pain Service consultation and approval.
[facility] Medication administered onsite buspirone hydrochloride 10 MG Oral Tablet busPIRone (B USPAR) tablet 10 mg busPIRone (BUSPAR) tablet 10 mg 07/07/2020 04:00:00 AM EST 10 mg O ral completed 10 mg, Oral, Once, Fri07/07/20 a t 0400, For [address] [facility] Medication administered onsite Famotidine 20 MG Oral Tablet famotidine (PEPCID) table t 20 mg famotidine (PEPCID) tablet 20 mg 07/07/2020 03:15:00 AM EST 20 mg Oral completed 20 mg, Oral, Once, Fri07/07/20 at 0315, For [address] [facility] Medication administered onsite Hydroxyzine Hydrochloride 10 MG Oral Tablet hydrOXYzin e (ATARAX) tablet 25 mg hydrOXYzine (ATARAX) tablet 25 mg 07/07/2020 03:00:00 AM EST 25 mg Oral completed 25 mg, Oral, Once, Fri07/07/20 a t 0300, For [address] [facility] Medication administered onsite Lactulose 667 MG/ML Oral Solution lactulose (CHRONULAC ) solution 30 mL lactulose (CHRONULAC) solution 30 mL 07/06/2020 05:00:00 PM EST 30 mL Oral aborted 30 mL, Oral, Three Times Da fawn Standard, First dose on Fri07/06/20 at 1700, For 30 days
Titrate to 2-[address]
[facility] Medication administered onsite thiamine (B-1) 500 mg in sodium chloride 0.9 % 50 mL IVPB 07/06/2020 05:00:00 PM EST 500 mg Intravenous aborted 500 mg, Intravenous, Administer over 30 Minutes, Three Times Daily Standard, First dose on Keily 07/06/20 at 1700, For [address] [facility] Medication administered onsite Benzocaine 15 MG / Menthol 3.6 MG Oral L ozenge benzocaine-menthol (CEPACOL) 15- 3.6 MG per lozenge 1 lozenge benzocaine-menthol (CEPACOL) 15-3.6 MG p er lozenge 1 lozenge 07/06/2020 04:12:51 PM EST 1 {lozenge} Mouth/Throat active 1 lozenge, Mouth/Throat, Every 2 hours PRN, Sore Throat, Starting Keily 07/06/20 at 1612, For [address] [facility] Medication administered onsite Ceftriaxone 1000 MG Injection cefTRIAXone (ROCEPHIN) i nfusion 1 g (premix) cefTRIAXone (ROCEPHIN) infusion 1 g (premix) 07/06/2020 03:15:00 PM EST 1 g Intravenous aborted 1 g, Intraven ous, at 100 mL/hr, Every 24 hours, First dose on Keily 07/06/20 at 1515, For 3 days
Discouraged Uses: Empiric treatment of post-surgical meningitis (ceftazidime preferred)
[facility] Medication administered onsite fentaNYL (SUBLIMAZE) (PF) injection 50 mcg [id number] 07/06/2020 02:30:00 PM EST 50 ug Intravenous completed 50 mcg, Intravenous, Once, Keily 07/06/20 at 1430, For [address] [facility] Medication administered onsite fentaNYL (SUBLIMAZE) (PF) injection 50 mcg [id number] 07/06/2020 02:30:00 PM EST 50 ug Intravenous completed 50 mcg, Intravenous, Once, Keily 07/06/20 at 1430, For [address] [facility] Medication administered onsite 2 ML Midazolam 1 MG/ML Injection midazolam (PF) (VERSE D) injection midazolam (PF) (VERSED) injection 07/06/2020 01:57:00 PM EST completed Code/Trauma Medication, Starting Keily 07/06/[address] [facility] Medication administered onsite 2 ML Midazolam 1 MG/ML Injection midazolam (PF) (VERSE D) injection midazolam (PF) (VERSED) injection 07/06/2020 01:55:00 PM EST completed Code/Trauma Medication, Starting Keily 07/06/[address] [facility] Medication administered onsite fentaNYL (SUBLIMAZE) (PF) injection [id number] 07/06/2020 01:52:00 PM EST completed Code/Trauma Medicati on, Starting Keily 07/06/[address] [facility] Medication administered onsite 2 ML Midazolam 1 MG/ML Injection midazolam (PF) (VERSE D) injection midazolam (PF) (VERSED) injection 07/06/2020 01:52:00 PM EST completed Code/Trauma Medication, Starting Keily 07/06/[address] [facility] Medication administered onsite fentaNYL (SUBLIMAZE) 100 MCG/2ML (PF) injection [id number] 07/06/2020 01:37:47 PM EST completed Starti ng Keily 07/06/20 at 1337, For 1 dose
Ryan Simpson : davian override
[facility] Medication administered onsite 1 ML Lorazepam 2 MG/ML Injection LORazepam (ATIVAN) in jection 2 mg LORazepam (ATIVAN) injection 2 mg 07/06/2020 10:15:00 AM EST 2 mg Intraveno us completed 2 mg, Intravenous, Once, Keily 07/06/20 at 1015, For [address] [facility] Medication administered onsite ondansetron (ZOFRAN) injection 4 mg [id number] 07/06/2020 10:04:5 4 AM EST 4 mg Intravenous active 4 mg, In travenous, Every 8 hours PRN, Nausea, Vomiting, Starting Keily 07/06/20 at 1004, For [address] [facility] Medication administered onsite Oxycodone Hydrochloride 5 MG [...] heparin (porcine) 5000 UNIT/ML injection 5,000 Units [id number] 07/06/2020 09:00:00 AM EST 5000 U Subcutaneous aborted 5,000 Units, Subcutaneous, 2 Times Daily, First dose on Keily 07/06/20 at 0900, For [address] [facility] Medication administered onsite Piperacillin 3000 MG / [...] piperacillin- tazobactam is compatible with Lactated Ringers.
[facility] Medication administered onsite thiamine (B-1) 500 mg in sodium chloride 0.9 % 50 mL IVPB 07/06/2020 08:00:00 AM EST 500 mg Intravenous aborted 500 mg, Intravenous, Administer over 30 Minutes, Every 24 hours, First dose on Keily 07/06/20 at 0800, For [address] [facility] Medication administered onsite lactated ringers bolus 1,000 mL [id number] 07/06/2020 06:45:00 AM EST 1000 mL Intravenous completed 1,000 mL , Intravenous, Once, Keily 07/06/20 at 0645, For [address] [facility] Medication administered onsite potassium chloride (K-DUR) dissolvable tablet 40 mEq [id number] 07/06/2020 06:45:00 AM EST 40 meq Oral completed 40 mEq, Oral, Once, Keily 07/06/20 at 0645, For 1 dose
May be dissolved in water for patients with a G-Tube or unable to swallow. If concern for clogging G-Tube, may contact Pharmacy to switch formulation to a powder packet.
[facility] Medication administered onsite Oxycodone Hydrochloride 5 MG Oral Tablet oxyCODONE (ROXICODONE) immediate release tablet 10 mg oxyCODONE (ROXICODONE) immediate release tablet 10 mg 07/06/2020 04:15:00 AM EST 10 mg Oral completed 10 mg, Oral, Once, Keily 07/06/20 at 0415, For 1 dose
Oxycodone immediate release is limited to 10 mg per dose. Higher doses ( only) require Pain Service consultation and approval.
[facility] Medication administered onsite Hydroxyzine Hydrochloride 10 MG Oral Tablet hydrOXYzin e (ATARAX) tablet 25 mg hydrOXYzine (ATARAX) tablet 25 mg 07/06/2020 04:06:13 AM EST 25 mg Oral aborted 25 mg, Oral, Every 6 hours PRN, Anxiety, Starting Keily 07/06/20 at 0406, For [address] [facility] Medication administered onsite Calcium Chloride 0.0014 MEQ/ML / Potassi um Chloride 0.004 MEQ/ML / Sodium Chloride 0.103 MEQ/ML / Sodium Lactate 0.028 MEQ/ML Injectable Solution lactated ringers infusion lactated ringers infusion 07/06/2020 03:45:00 AM EST 75 mL/h Intravenous aborted at 75 mL/hr, Intravenous, Continuous, Starting Keily 07/06/20 at 0345, For [address] [facility] Medication administered onsite lactated ringers bolus 1,000 mL [id number] 07/06/2020 03:30:00 AM EST 1000 mL Intravenous completed 1,000 mL , Intravenous, Once, Keily 07/06/20 at 0330, For [address] [facility] Medication administered onsite octreotide (SANDOSTATIN) 5 mcg/mL in sodium chloride 0.9 % 2 50 mL infusion 07/06/2020 03:15:00 AM EST 50 ug/h Intravenous aborted 50 mcg/hr (10 mL/hr), Intravenous, at 10 mL/hr, Continuous, Starting Keily 07/06/20 at 0315, For [address] [facility] Medication administered onsite albumin human (ALBUMINAR) 25 % bottle 100 g [id number] 07/06/2020 03:15:00 AM EST 100 g Intravenous completed 10 0 g, Intravenous, at 200 mL/hr, Once, Keily 07/06/20 at 0315, For [address] [facility] Medication administered onsite pantoprazole (PROTONIX) 0.4 mg/mL in sodium chloride 0.9 % 2 50 mL infusion 07/06/2020 03:15:00 AM EST 8 mg/h Intravenous aborted 8 mg/hr (20 mL/hr), Intravenous, at 20 mL/hr, Continuous, Starting Keily 07/06/20 at 0315, For 30 days
Indication: Active GI bleed [facility] Medication administered onsite 50 mg 08/09/2019 12:00:00 [...] (for pain)Can be used with lidocaine pain. [facility] Esomeprazole 20 MG Delayed Release Oral Capsule esomeprazole (NEXIUM) 20 MG capsule esomeprazole (NEXIUM) 20 MG capsule 20 mg Oral aborted Take 20 mg by mouth Two Times Daily [facility] Atenolol 100 MG Oral Tablet atenolol (TENORMIN) 100 MG tablet atenolol (TENORMIN) 100 MG tablet 100 mg Oral aborted Take 100 mg by mouth daily. [facility] Aspirin 325 MG Oral Tablet Aspirin 325 MG Oral Tablet 32 5 mg Oral aborted Take 325 mg by mouth daily [facility] Indomethacin (INDOCIN PO) Oral aborted Take by mouth. [facility] Hydroxyzine Hydrochloride 25 MG Oral Tablet hydrOXYzin e (ATARAX) 25 MG tablet hydrOXYzine (ATARAX) 25 MG tablet 25 mg Oral abor tania Take 25 mg by mouth Three times daily as needed for Itching. [facility] Lisinopril 10 MG Oral Tablet lisinopril (PRINIVIL,ZEST RIL) 10 MG tablet lisinopril (PRINIVIL,ZESTRIL) 10 MG tablet 10 mg Oral aborted Take 10 mg by mouth daily. [facility] Insurance Providers Payer name Policy type / Coverage type Policy ID Covered alliance party ID Covered alliance party's relationship to pandey Policy Pandey Plan Information [facility] [id number] SP [id number] [facility] [id number] S [id number] [facility] MEDICAID [id number] S [id number] [facility] MEDICAID [id number] S [id number] MEDICAID [id number] S [id number] [facility] MEDICAID [id number] S [id number] [facility] MEDICAID [id number] S [id number] [facility] MEDICAID [id number] S [id number] [facility] MEDICAID [id number] S [id number] [facility] [id number] SP [id number] [facility] [id number] SP [id number] [facility] [id number] SP [id number] MEDICAID M [id number] Self [id number] [facility] I [id number] Self [id number] [facility] I [id number] Self [id number] [facility] I [id number] Self [id number] MEDICAID M [id number] Self [id number] SELF PAY UNAVAILABLE S [place] [facility] [place] [id number] S [id number] [facility] MEDICAID [id number] S [id number] [facility] [id number] S [id number] [facility] [id number] SP [id number] SELF PAY ONLY [id number] SP [id number] [facility] [id number] S [id number] [facility]-Medicaid [id number] [facility]-Medicaid [id number] ANSI-Medicaid [id number] ANSI-Medicaid [id number] ANSI-Medicaid [id number] ANSI-Medicaid [id number] ANSI-Medicaid [id number] ANSI-Medicaid [id number] ANSI-Medicaid [id number] ANSI-Medicaid [id number] ANSI-Medicaid [id number] ANSI-Medicaid [id number] ANSI-Medicaid [id number] ANSI-Medicaid [id number] ANSI-Medicaid [id number] ANSI-Medicaid [id number] ANSI-Medicaid [id number] ANSI-Medicaid [id number] ANSI-Medicaid [id number] ANSI-Medicaid [id number] ANSI-Medicaid [id number] ANSI-Medicaid [id number] ANSI-Medicaid [id number] ANSI-Medicaid [id number] ANSI-Medicaid [id number] ANSI-Medicaid [id number] ANSI-Medicaid [id number] ANSI-Medicaid [id number] ANSI-Medicaid [id number] ANSI-Medicaid [id number] ANSI-Medicaid [id number] ANSI-Medicaid [id number] ANSI-Medicaid [id number] ANSI-Medicaid [id number] ANSI-Medicaid [id number] ANSI-Medicaid [id number] ANSI-Medicaid [id number] ANSI-Medicaid [id number] [facility] [id number] SP [id number] [facility] Medicaid Medicaid [id number] Self [id number] [facility] [id number] S [id number] MEDICAID [id number] SP [id number] MEDICAID P [id number] S [id number] SELF PAY SP UNAVAILABLE UNAVAILA BLE MEDICAID [id number] S [id number] Problems, Conditions, and Diagnoses Code Display Name Description Problem Type Effective Dates Data Source(s) R65.20 Severe sepsis without septic shock SEVERE SEPSIS WITHOUT SEPTIC SHOCK Diagnosis 08/31/2020 03:32:00 AM [facility] R79.1 Abnormal coagulation profile ABNORMAL COAGULATION PROF ILE Diagnosis 08/31/2020 03:32:00 AM [facility] R07.9 Chest pain, unspecified CHEST PAIN, UNSPECIFIED Diagno sis 08/31/2020 03:32:00 AM [facility] F17.200 Nicotine dependence, unspecified, uncomp licated NICOTINE DEPENDENCE, UNSPECIFIED, UNCOMPLICATED Diagnosis 08/31/2020 03:32:00 AM [facility] E78.5 Hyperlipidemia, unspecified HYPERLIPIDEMIA, UNSPECIFIE D Diagnosis 08/31/2020 03:32:00 AM [facility] F32.9 Major depressive disorder, single episod e, unspecified MAJOR DEPRESSIVE DISORDER, SINGLE EPISODE, UNSPECI Diagnosis 08/31/2020 03:32:00 AM [facility] I10 Essential (primary) hypertension ESSENTIAL (PRIMARY) H YPERTENSION Diagnosis 08/31/2020 03:32:00 AM [facility] F10.10 Alcohol abuse, uncomplicated ALCOHOL ABUSE, UNCOMPLICA TANIA Diagnosis 08/31/2020 03:32:00 AM [facility] B34.8 Other viral infections of unspecified si te OTHER VIRAL INFECTIONS OF UNSPECIFIED SITE Diagnosis 08/31/2020 03:32:00 AM [facility] N40.0 Benign prostatic hyperplasia without low er urinary tract symptoms BENIGN PROSTATIC HYPERPLASIA WITHOUT LOWER URINRY Diagnosis 08/31/2020 03:32: 00 AM [facility] K21.9 Gastro-esophageal reflux disease without esophagitis GASTRO-ESOPHAGEAL REFLUX DISEASE WITHOUT ESOPHAGIT Diagnosis 08/31/2020 03:32:00 AM [facility] E11.9 Type 2 diabetes mellitus without complic ations TYPE 2 DIABETES MELLITUS WITHOUT COMPLICATIONS Diagnosis 08/31/2020 03:32:00 AM [facility] pital J12.82 PNEUMONIA DUE TO CORONAVIRUS DISEASE 201 9 PNEUMONIA DUE TO CORONAVIRUS DISEASE 2019 Diagnosis 08/31/2020 03:32:00 AM [facility] D69.6 Thrombocytopenia, unspecified THROMBOCYTOPENIA, UNSPEC IFIED Diagnosis 08/31/2020 03:32:00 AM [facility] K74.60 Unspecified cirrhosis of liver UNSPECIFIED CIRRHOSIS O F LIVER Diagnosis 08/31/2020 03:32:00 AM [facility] U07.1 COVID-19 COVID-19 Diagnosis 08/31/2020 03:32:00 AM [facility] E87.2 Acidosis ACIDOSIS Diagnosis 08/31/2020 03:32:00 AM [facility] A41.9 Sepsis, unspecified organism SEPSIS, UNSPECIFIED ORGAN ISM Diagnosis 08/31/2020 03:32:00 AM [facility] Z86.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), and cerebral infarction without residual deficits PRSNL HX OF TIA (TIA), AND CEREB INFRC W /O RESID D Diagnosis 08/30/2020 03:59:00 PM [facility] Z79.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 Diagnosis 08/30/2020 03:59:00 PM [facility] F17.210 Nicotine dependence, cigarettes, uncompl icated NICOTINE DEPENDENCE, CIGARETTES, UNCOMPLICATED Diagnosis 08/30/2020 03:59:00 PM [facility] E11.9 Type 2 diabetes mellitus without complic ations TYPE 2 DIABETES MELLITUS WITHOUT COMPLICATIONS Diagnosis 08/30/2020 [facility]59[facility]8 Other viral infections of unspecified si te OTHER VIRAL INFECTIONS OF UNSPECIFIED SITE Diagnosis 08/30/2020 03:59:00 PM [facility] l J18.9 Pneumonia, unspecified organism PNEUMONIA, UNSPECIFIED ORGANISM Diagnosis 08/30/2020 03:59:00 PM [facility] U07.1 COVID-19 COVID-19 Diagnosis 08/30/2020 03:59:00 PM [facility] A41.9 Sepsis, unspecified organism SEPSIS, UNSPECIFIED ORGAN ISM Diagnosis 08/30/2020 03:59:00 PM [facility] R07.89 Other chest pain OTHER CHEST PAIN Diagnosis 08/30/2020 03 :59:00 PM [facility] K92.2 Gastrointestinal hemorrhage, unspecified Gastrointestinal hemorrhage, unspecified Diagnosis 07/09/2020 11:55:34 AM [facility] K52.9 Noninfective gastroenteritis and colitis , unspecified Noninfective gastroenteritis and colitis, unspecified Diagnosis 07/06/2020 03:03:00 AM [facility] Vomiting blood Vomiting blood Diagnosis 07/06/2020 03:03: 00 AM [facility] Z20.828 Contact with and (suspected) exposure to other viral communicable diseases CONTACT W AND EXPOSURE TO OTH VIRAL COMMUNICABLE D Diagnosis 07/05/2020 08:45:00 PM [facility] Z99.81 Dependence on supplemental oxygen DEPENDENCE ON SUPPLEMENTAL OXYGEN Diagnosis 07/05/2020 08:45:00 PM [facility] Z79.891 half-way (current) use of opiate analge sic SENIOR CARE (CURRENT) USE OF OPIATE ANALGESIC Diagnosis 07/05/2020 08:45:00 PM [facility] I95.1 Orthostatic hypotension ORTHOSTATIC HYPOTENSION Diagno sis 07/05/2020 08:45:00 PM [facility] N17.9 Acute kidney failure, unspecified ACUTE KIDNEY F AILURE, UNSPECIFIED Diagnosis 07/05/2020 08:45:00 PM [facility] K21.00 GASTRO-ESOPHAGEAL REFLUX DIS WITH ESOPHA GITIS, WIT GASTRO-ESOPHAGEAL REFLUX DIS WITH ESOPHAGITIS, WIT Diagnosis 07/05/2020 08:45:00 PM [facility] I85.10 Secondary esophageal varices without ble eding SECONDARY ESOPHAGEAL VARICES WITHOUT BLEEDING Diagnosis 07/05/2020 08:45:00 PM [facility] F10.20 Alcohol dependence, uncomplicated ALCOHOL DEPEND ENCE, UNCOMPLICATED Diagnosis 07/05/2020 08:45:00 PM [facility] E86.0 Dehydration DEHYDRATION Diagnosis 07/05/2020 08:45:00 PM [facility] K52.9 Noninfective gastroenteritis and colitis , unspecified NONINFECTIVE GASTROENTERITIS AND COLITIS, UNSPECIF Diagnosis 07/05/2020 08:45:00 PM [facility] R11.2 Nausea with vomiting, unspecified NAUSEA WITH VO MITING, UNSPECIFIED Diagnosis 07/05/2020 08:45:00 PM [facility] E86.9 Volume depletion, unspecified VOLUME DEPLETION, UNSPEC IFIED Diagnosis 07/05/2020 08:45:00 PM [facility] G89.29 Other chronic pain OTHER CHRONIC PAIN Diagnosis 05/2019 01:11:00 PM [facility] G47.9 Sleep disorder, unspecified SLEEP DISORDER, UNSPECIFIE D Diagnosis 08/09/2019 01:11:00 [facility] F10.10 Alcohol abuse, uncomplicated ALCOHOL ABUSE, UNCOMPLICA TANIA Diagnosis 08/09/2019 01:11:00 [facility] F17.200 Nicotine dependence, unspecified, uncomp licated NICOTINE DEPENDENCE, UNSPECIFIED, UNCOMPLICATED Diagnosis 08/09/2019 01:11:00 PM [facility] / [facility] F33.1 Major depressive disorder, recurrent, mo derate MAJOR DEPRESSIVE DISORDER, RECURRENT, MODERATE Diagnosis 08/09/2019 01:11:00 PM [facility] K31.9 Disease of stomach and duodenum, unspeci fied DISEASE OF STOMACH AND DUODENUM, UNSPECIFIED Diagnosis 07/24/2019 05:33:00 PM [facility] F41.9 Anxiety disorder, unspecified ANXIETY DISORDER, UNSPEC IFIED Diagnosis 07/24/2019 05:33:00 PM [facility] Y92.[address] or not applicable UNSPECIFIED PLACE OR NOT APPLICABLE Diagnosis 07/21/2019 02:23:00 PM [facility] W00.0XXA Fall on same level due to ice and snow, initial encounter FALL ON SAME LEVEL DUE TO ICE AND SNOW, INITIAL EN Diagnosis 07/21/2019 02:23:00 PM [facility] 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 SENIOR CARE (CURRENT) USE OF ORAL HYPOGLYCEMIC DRUGS Diagnosis 07/21/2019 02:23:00 PM [facility] N30.01 Acute cystitis with hematuria ACUTE CYSTITIS WITH REBECA TURIA Diagnosis 07/21/2019 02:23:00 PM [facility] Y93.01 Activity, walking, marching and hiking A CTIVITY, WALKING, MARCHING AND HIKING Diagnosis 07/21/2019 02:23:00 PM [facility] Y99.8 Other external cause status OTHER EXTERNAL CAUSE STATU S Diagnosis 07/21/2019 02:23:00 PM [facility] S80.01XA Contusion of right knee, initial encount er CONTUSION OF RIGHT KNEE, INITIAL ENCOUNTER Diagnosis 07/21/2019 02:23:00 PM [facility] S33.5XXA Sprain of ligaments of lumbar spine, ini tial encounter SPRAIN OF LIGAMENTS OF LUMBAR SPINE, INITIAL ENCOU Diagnosis 07/21/2019 02:23:00 PM [facility] S39.92XA Unspecified injury of lower back, initia l encounter UNSPECIFIED INJURY OF LOWER BACK, INITIAL ENCOUNTER Diagnosis 07/21/2019 02:23:00 PM [facility] Surgeries/Procedures Procedure Description Date Indications Data Source(s) Introduction of Anti-inflammatory into Peripheral Vein, Perc utaneous Approach 08/31/2020 12:00:00 AM [facility] Introduction of Other Anti-infective int o Peripheral Vein, Percutaneous Approach 08/31/2020 12:00:00 AM [facility] INTRODUCE REMDESIVIR IN PERIPH VEIN, PERC, [place] MANUEL 08/31/2020 12:00:00 AM [facility] POCT GLUCOSE, DOCKED POCT GLUCOSE, DOCKED Routine 07/10/2020 11:55 AM EST 07/10/2020 11:55:00 AM [facility] POCT GLUCOSE, DOCKED POCT GLUCOSE, DOCKED Routine 07/10/2020 8:48 AM EST 07/10/2020 08:48:00 AM [facility] BLOOD COUNT COMPLETE AUTO&AUTO DIFRNTL WBC COUNT CBC AND DIFFER ENTIAL Routine 07/10/2020 3:54 AM EST 07/10/2020 03:54:00 AM [facility] PHOSPHORUS INORGANIC PHOSPHORUS LEVEL Timed 07/10/2020 3:[address] 07/10/2020 03:54:00 AM [facility] MAGNESIUM MAGNESIUM LEVEL Routine 07/10/2020 3:54 AM EST 07/10/2020 03:54:00 AM [facility] COMPREHENSIVE METABOLIC PANEL COMPREHENSIVE METABOLIC PANEL Rou jeyson 07/10/2020 3:54 AM EST 07/10/2020 03:54:00 AM [facility] PHOSPHORUS INORGANIC PHOSPHORUS LEVEL Timed 07/09/2020 6:[address] 07/09/2020 06:16:00 PM [facility] GLUCOSE QUANTITATIVE BLOOD XCPT REAGENT STRIP POCT GLUCOSE, MALIHA GUILLERMO Routine 07/09/2020 4:49 PM EST 07/09/2020 04:49:00 PM [facility] PHOSPHORUS INORGANIC PHOSPHORUS LEVEL Timed 07/09/2020 4:[address] 07/09/2020 04:09:00 PM [facility] GLUCOSE QUANTITATIVE BLOOD XCPT REAGENT STRIP POCT GLUCOSE, MALIHA GUILLERMO Routine 07/09/2020 12:24 PM EST 07/09/2020 12:24:00 PM [facility] PHOSPHORUS INORGANIC PHOSPHORUS LEVEL Timed 07/09/2020 10:[address] 07/09/2020 10:05:00 AM [facility] GLUCOSE QUANTITATIVE BLOOD XCPT REAGENT STRIP POCT GLUCOSE, MALIHA GUILLERMO Routine 07/09/2020 7:50 AM EST 07/09/2020 07:50:00 AM [facility] BLOOD COUNT COMPLETE AUTO&AUTO DIFRNTL WBC COUNT CBC AND DIFFER ENTIAL Routine 07/09/2020 12:47 AM EST 07/09/2020 12:47:00 AM [facility] PHOSPHORUS INORGANIC PHOSPHORUS LEVEL Timed 07/09/2020 12:[address] 07/09/2020 12:47:00 AM [facility] MAGNESIUM MAGNESIUM LEVEL Routine 07/09/2020 12:47 AM EST 07/09/2020 12:47:00 AM [facility] COMPREHENSIVE METABOLIC PANEL COMPREHENSIVE METABOLIC PANEL Rou jeyson 07/09/2020 12:47 AM EST 07/09/2020 12:47:00 AM [facility] GLUCOSE QUANTITATIVE BLOOD XCPT REAGENT STRIP POCT GLUCOSE, MALIHA GUILLERMO Routine 07/08/2020 9:24 PM EST 07/08/2020 09:24:00 PM [facility] GLUCOSE QUANTITATIVE BLOOD XCPT REAGENT STRIP POCT GLUCOSE, MALIHA GUILLERMO Routine 07/08/2020 4:57 PM EST 07/08/2020 04:57:00 PM [facility] GLUCOSE QUANTITATIVE BLOOD XCPT REAGENT STRIP POCT GLUCOSE, MALIHA GUILLERMO Routine 07/08/2020 12:50 PM EST 07/08/2020 12:50:00 PM [facility] PHOSPHORUS INORGANIC PHOSPHORUS LEVEL Timed 07/08/2020 10:[address] 07/08/2020 10:28:00 AM [facility] GLUCOSE QUANTITATIVE BLOOD XCPT REAGENT STRIP POCT GLUCOSE, MALIHA GUILLERMO Routine 07/08/2020 8:42 AM EST 07/08/2020 08:42:00 AM [facility] BLOOD COUNT COMPLETE AUTO&AUTO DIFRNTL WBC COUNT CBC AND DIFFER ENTIAL Timed 07/08/2020 2:11 AM EST 07/08/2020 02:11:00 AM [facility] PHOSPHORUS INORGANIC PHOSPHORUS LEVEL Timed 07/08/2020 2:[address] 07/08/2020 02:11:00 AM [facility] MAGNESIUM MAGNESIUM LEVEL Routine 07/08/2020 2:11 AM EST 07/08/2020 02:11:00 AM [facility] COMPREHENSIVE METABOLIC PANEL COMPREHENSIVE METABOLIC PANEL Rou jeyson 07/08/2020 2:11 AM EST 07/08/2020 02:11:00 AM [facility] GLUCOSE QUANTITATIVE BLOOD XCPT REAGENT STRIP POCT GLUCOSE, MALIHA GUILLERMO Routine 07/07/2020 9:53 PM EST 07/07/2020 09:53:00 PM [facility] EKG 12-LEAD - CMAXX REPORT EKG 12-LEAD - CMAXX REPORT 07/07/2020 9:45 PM EST 07/07/2020 09:45:00 PM [facility] EKG 12-LEAD - CMAXX REPORT EKG 12-LEAD - CMAXX REPORT 07/07/2020 9:45 PM EST 07/07/2020 09:45:00 PM [facility] EKG 12-LEAD EKG 12-LEAD STAT 07/07/2020 9:45 PM EST 07/07/2020 09:45:00 PM [facility] BLOOD COUNT COMPLETE AUTO&AUTO DIFRNTL WBC COUNT CBC AND DIFFER ENTIAL Timed 07/07/2020 6:45 PM EST 07/07/2020 06:45:00 PM [facility] PHOSPHORUS INORGANIC PHOSPHORUS LEVEL Routine 07/07/2020 6:[address] 07/07/2020 06:45:00 PM [facility] GLUCOSE QUANTITATIVE BLOOD XCPT REAGENT STRIP POCT GLUCOSE, DOC KED Routine 07/07/2020 5:29 PM EST 07/07/2020 05:29:00 PM [facility] PHOSPHORUS INORGANIC PHOSPHORUS LEVEL Timed 07/07/2020 5:[address] 07/07/2020 05:29:00 PM [facility] MAGNESIUM MAGNESIUM LEVEL Routine 07/07/2020 5:29 PM EST 07/07/2020 05:29:00 PM [facility] GLUCOSE QUANTITATIVE BLOOD XCPT REAGENT STRIP POCT GLUCOSE, DOC KED Routine 07/07/2020 12:25 PM EST 07/07/2020 12:25:00 PM [facility] GLUCOSE QUANTITATIVE BLOOD XCPT REAGENT STRIP POCT GLUCOSE, DOC KED Routine 07/07/2020 12:23 PM EST 07/07/2020 12:23:00 PM [facility] POTASSIUM SERUM PLASMA/WHOLE BLOOD POTASSIUM Routine 07/07/2020 8:22 AM EST 07/07/2020 08:22:00 AM [facility] PHOSPHORUS INORGANIC PHOSPHORUS LEVEL Routine 07/07/2020 8:[address] 07/07/2020 08:22:00 AM [facility] GLUCOSE QUANTITATIVE BLOOD XCPT REAGENT STRIP POCT GLUCOSE, DOC KED Routine 07/07/2020 8:18 AM EST 07/07/2020 08:18:00 AM [facility] BLOOD COUNT COMPLETE AUTOMATED CBC AND DIFFERENTIAL Timed 07/07/2020 5:43 AM EST 07/07/2020 05:43:00 AM [facility] HEMOGLOBIN GLYCOSYLATED A1C HEMOGLOBIN A1C Routine 07/07/2020 5:43 AM EST 07/07/2020 05:43:00 AM [facility] COMPREHENSIVE METABOLIC PANEL COMPREHENSIVE METABOLIC PANEL Rou jeyson 07/07/2020 5:43 AM EST 07/07/2020 05:43:00 AM [facility] BLOOD COUNT COMPLETE AUTO&AUTO DIFRNTL WBC COUNT CBC AND DIFFER ENTIAL Timed 07/07/2020 12:12 AM EST 07/07/2020 12:12:00 AM [facility] GLUCOSE QUANTITATIVE BLOOD XCPT REAGENT STRIP POCT GLUCOSE, DOC KED Routine 07/06/2020 10:08 PM EST 07/06/2020 10:08:00 PM [facility] POTASSIUM SERUM PLASMA/WHOLE BLOOD POTASSIUM Routine 07/06/2020 9:39 PM EST 07/06/2020 09:39:00 PM [facility] PHOSPHORUS INORGANIC PHOSPHORUS LEVEL Routine 07/06/2020 9:[address] 07/06/2020 09:39:00 PM [facility] MAGNESIUM MAGNESIUM LEVEL Routine 07/06/2020 9:39 PM EST 07/06/2020 09:39:00 PM [facility] BLOOD COUNT COMPLETE AUTO&AUTO DIFRNTL WBC COUNT CBC AND DIFFER ENTIAL Timed 07/06/2020 5:36 PM EST 07/06/2020 05:36:00 PM [facility] LACTATE LACTIC ACID LEVEL, PLASMA Timed 07/06/2020 5:36 PM EST 07/06/2020 05:36:00 PM [facility] COMMUNITY-ACQUIRED DIARRHEA PANEL COMMUNITY-ACQUIRED DIARRHEA P QUINCY Routine 07/06/2020 2:48 PM EST 07/06/2020 02:48:00 PM [facility] OVA&PARASITES DIRECT SMEARS CONCENTRATION&ID OVA AND PARASITE S CREEN Routine 07/06/2020 2:48 PM EST 07/06/2020 02:48:00 PM [facility] UPPER GI ENDOSCOPY; DX, W/WO SPECIMEN COLLECTION, BRUS OLAMIDE/WASHING (SEP PROC) UPPER GI ENDOSCOPY; DX, W/WO SPECIMEN COLLECTION, BRUSHING/WASHING (SEP PROC) 07/06/2020 1:25 PM EST Coffee ground emesis 07/06/2020 01:25:00 PM EST - 07/06/2020 02:11:00 PM [facility] BLOOD COUNT COMPLETE AUTO&AUTO DIFRNTL WBC COUNT CBC AND DIFFER ENTIAL Timed 07/06/2020 11:35 AM EST 07/06/2020 11:35:00 AM [facility] PHOSPHORUS INORGANIC PHOSPHORUS LEVEL Routine 07/06/2020 11:[address] 07/06/2020 11:35:00 AM [facility] MAGNESIUM MAGNESIUM LEVEL Routine 07/06/2020 11:35 AM EST 07/06/2020 11:35:00 AM [facility] LACTATE LACTIC ACID LEVEL, PLASMA Timed 07/06/2020 11:35 AM EST 07/06/2020 11:35:00 AM [facility] BASIC METABOLIC PANEL CALCIUM TOTAL BASIC METABOLIC PANEL Routi ne 07/06/2020 11:35 AM EST 07/06/2020 11:35:00 AM EST [facility] BLOOD COUNT COMPLETE AUTO&AUTO DIFRNTL WBC COUNT CBC AND DIFFER ENTIAL Timed 07/06/2020 8:09 AM EST 07/06/2020 08:09:00 AM [facility] INSJ NON-TUNNELED CENTRAL VENOUS CATH AGE 5 YR/> SC INSERT NON-TUNNEL CV CATH Routine 07/06/2020 6:34 AM EST Colitis Gastrointestinal hemorrhage, unspecified gastrointestinal hemorrhage type 07/06/2020 06:34:47 AM EST [facility]intestinal hemorrhage, [facility], unspecified gastrointestinal hemorrhage type Colitis US ABDOMINAL REAL TIME W/IMAGE DOCUMENTATION US ABDOMEN COMPLET E [id number] STAT 07/06/2020 4:47 AM EST 07/06/2020 04:47:51 AM [facility] DRUGS OF ABUSE, URINE DRUGS OF ABUSE, URINE Routine 07/06/2020 4 :26 AM EST 07/06/2020 04:26:00 AM [facility] THROMBOPLASTIN TIME PARTIAL PLASMA/WHOLE BLOOD PARTIA L THROMBOPLASTIN TIME (PTT) Routine 07/06/2020 4:26 AM EST 07/06/2020 04:26 :00 AM [facility] IAAD EIA HIV-1 AG W/HIV-1&HIV-2 ANTBDY SINGLE HIV AG AB COMBO S CREEN Routine 07/06/2020 4:26 AM EST 07/06/2020 04:26:00 AM [facility] ETHYL ALCOHOL LEVEL ETHYL ALCOHOL LEVEL Routine 07/06/2020 4:26 AM EST 07/06/2020 04:26:00 AM [facility] HEPATITIS C ANTIBODY HEPATITIS C ANTIBODY Routine 07/06/2020 4:26 AM EST 07/06/2020 04:26:00 AM [facility] HEPATITIS ANTIBODY HAAB IGM ANTIBODY HEPATITIS A ANTIBODY, IGM Routine 07/06/2020 4:26 AM EST 07/06/2020 04:26:00 AM [facility] HEPATITIS B CORE ANTIBODY HBCAB IGM ANTIBODY HEPATITIS B CO RE ANTIBODY, IGM Routine 07/06/2020 4:26 AM EST 07/06/2020 04:26:00 AM [facility] SODIUM URINE SODIUM, URINE, RANDOM Routine 07/06/2020 4:26 AM EST 07/06/2020 04:26:00 AM [facility] CREATININE OTHER SOURCE CREATININE, URINE, RANDOM Routine 07/06/2020 4:26 AM EST 07/06/2020 04:26:00 AM [facility] IAAD EIA HEPATITIS B SURFACE ANTIGEN HEPATITIS B SURFACE ANTIGE N Routine 07/06/2020 4:26 AM EST 07/06/2020 04:26:00 AM [facility] CULTURE BACTERIAL BLOOD AEROBIC W/ID ISOLATES BLOOD CULTURE R outine 07/06/2020 4:26 AM EST 07/06/2020 04:26:00 AM [facility] CULTURE BACTERIAL BLOOD AEROBIC W/ID ISOLATES BLOOD CULTURE R outine 07/06/2020 4:26 AM EST 07/06/2020 04:26:00 AM [facility] URNLS DIP STICK/TABLET REAGENT AUTO MICROSCOPY URINALYSIS W ITH MICROSCOPIC Routine 07/06/2020 4:26 AM EST 07/06/2020 04:26:00 AM [facility] PROTHROMBIN TIME PROTIME INR Routine 07/06/2020 4:26 AM EST 07/06/2020 04:26:00 AM [facility] CULTURE BCT ISOL&PRSMPTV ID ISOLATE EA URINE URINE CULTURE Ro utine 07/06/2020 4:26 AM EST 07/06/2020 04:26:00 AM [facility] PHOSPHORUS INORGANIC PHOSPHORUS LEVEL Routine 07/06/2020 4:[address] 07/06/2020 04:26:00 AM [facility] MAGNESIUM MAGNESIUM LEVEL Routine 07/06/2020 4:26 AM EST 07/06/2020 04:26:00 AM [facility] LACTATE LACTIC ACID LEVEL, PLASMA Routine 07/06/2020 4:26 AM EST 07/06/2020 04:26:00 AM [facility] AMMONIA AMMONIA LEVEL Routine 07/06/2020 4:26 AM EST 07/06/2020 04:26:00 AM [facility] COMPREHENSIVE METABOLIC PANEL COMPREHENSIVE METABOLIC PANEL Rou jeyson 07/06/2020 4:26 AM EST 07/06/2020 04:26:00 AM [facility] GLUCOSE QUANTITATIVE BLOOD XCPT REAGENT STRIP POCT GLUCOSE, DOC KED Routine 07/06/2020 2:19 AM EST 07/06/2020 02:19:00 AM [facility] UPPER GI ENDOSCOPY UPPER GI ENDOSCOPY 07/06/2020 12:[address] 07/06/2020 12:00:00 AM [facility] Results ID Date Data Source [id number] 09/05/2020 07:31:00 AM [facility] Exam Number: [id number] Reported By: Elkin OMALLEY M.D. Signed By: Diony OMALLEY M.D. Name Value Range Interpretation Code Description Data Zahraa rce(s) Supporting Document(s) ID Date Data Source [id number] 09/04/2020 01:21:00 PM [facility] [address] [id number] SUMMARYPATIENT NAME: JANICE VERMA MR#: [id number] PHYSICIAN: TODD ELKINS DOAUTHOR: Todd Elkins DO DATE: 08/31/20 RM#: [id number] DATE: 09/04/20 : 65Summary of HospitalizationReason for AdmissionChest pain and shortness of breathHospital CoursePatient is a 55 years of male with a past medical history significant fordiabetes, chronic alcohol abuse, depression, BPH and hypertension initial lypresented to [facility] emergency room with complaints of shortness ofbreath and chest pain. Diagnostic work-up in the emergency room demonstratedCOVID-19 infection and human virus infection. Patient was given remdesivir,dexamethasone, Rocephin, azithromycin. Patient was then transferred to [facility] for severe sepsis secondary to pneumonia and [...] Hypertension8. Depression9. BPH (benign prostatic hyperplasia)10. HUMAN [id number]. Elevated d- dimerDiagnoses (Other)Past Pertinent History1. Diabetes2. [...] taking the following medications:CARVEDILOL (Coreg*) 12.5 MG MVPWEI30.5 MILLIGRAM Orally TWICE DAILY Qty = 0Continue taking these medications:Aspirin E.c.* (Aspirin EC*) 81 MG TABLET.DR81 MILLIGRAM Orally DAILYOMEPRAZOLE (Omeprazole) 20 MG TABLET.DR20 MILLIGRAM Orally DAILYHYDROXYZINE PAMOATE (Atarax*) 50 MG [id number] MILLIGRAM Orally TWICE DAILY as needed for ANXIETYATORVASTATIN CALCIUM (ATORVASTATIN) 80 MG [id number] MILLIGRAM Orally DAILYQty = 0FOLIC ACID* (Folvite*) 1 MG TABLET1 MILLIGRAM Orally DAILYQty = 0NAPROXEN (NAPROXEN*) 500 MG [id number] MILLIGRAM Orally TWICE DAILYQty = 0Fluoxetine* (Prozac*) 20 MG [id number] MILLIGRAM Orally DAILYQty = 0QUETIAPINE FUMARATE (QUETIAPINE) 100 MG [id number] MILLIGRAM Orally AT BEDTIMEQty = 0TAMSULOSIN HCL (TAMSULOSIN) 0.4 MG CAP.ER.24H0.4 MILLIGRAM Orally TWICE DAILYQty = 0Discharge Activity: As toleratedDischarge diet: 2Gm SodiumFollow-upFollow up with your Primary care physicianTime spent by provider to complete discharge > 30 minutesDATE SIGNED: 09/10/20 Electronically SignedTIME SIGNED: 2012 TODD ELKINS DO Name Value Range Interpretation Code Description Data Zahraa rce(s) Supporting Document(s) ID Date Data Source [id number] 09/04/2020 12:09:00 PM EST [facility] Name Value Range Interpretation Code Description Data Zahraa rce(s) Supporting Document(s) FGLU 293 mg/dL 70-110 H [facility] ID Date Data Source [id number] 09/04/2020 10:29:00 AM [place], [place] [address]PATIENT NAME: JANICE VERMA#: [id number] PHYSICIAN: TODD ELKINS DOACCOUNT #: [id number] ADM. DATE: 08/31/20PATIENT : 65 DISCH. DATE: [...] rce(s) Supporting Document(s) ID Date Data Source [id number] 09/04/2020 06:06:00 AM EST [facility] Name Value Range Interpretation Code Description Data Zahraa rce(s) Supporting Document(s) FGLU 209 mg/dL 70-110 H [facility] ID Date Data Source [id number] 09/03/2020 10:52:00 PM EST [facility] Name Value Range Interpretation Code Description Data Zahraa rce(s) Supporting Document(s) FGLU 316 mg/dL 70-110 H [facility] ID Date Data Source [id number] 09/03/2020 06:44:00 PM EST [facility] Name Value Range Interpretation Code Description Data Zahraa rce(s) Supporting Document(s) FGLU 391 mg/dL 70-110 H [facility] ID Date Data Source [id number] 09/03/2020 02:44:00 PM EST [facility] MYLENE [address] [id number] NOTEPATIENT NAME: JOYIMTIAZKARISHMAJANICE PHYSICIAN: TODD ELKINS DOAUTHOR: Luz Elena Elkins DO. DATE: 08/31/20 MR#: [id number] NOTE DATE: 09/03/20 RM#: [id number] TIME: 1451 : 65SubjectiveEvents Since Last EntryPatient seen and examined in room today. Patient's oxygenation is maintainedin room air no fever or chill.ObjectiveVital SignsVital Signs-24 HRS01/02 09/02807 2141 2150 0210 0646Temp 98.0 97.8 97.0 97.2Pulse 51 50 78 52 49Resp 20 18 17 16B/P 126/63 130/66 130/66 119/64 120/65B/P MeanPulse Ox 96 95 96 96O2 DeliveryO2 Flow AuluXdV550/964070BclrUrslv 78RespB/P 130/66B/P MeanPulse OxO2 DeliveryO2 Flow RateFiO2 [...] HCl (VITAMIN B1) 100 MG DAILY POTiotropium [place] (Spiriva) 1 puffDAILY INHInsulin Aspart (Humalog Insulin) [...] DepressionA&P- Continue Prozac9. BPH (benign prostatic hyperplasia)A&PContinue Bxfkkq28. HUMAN RHINOVIRUSA&P-Continue supportive care11. Elevated d-dimerA&P- CTA ruled out PE. Lower extremity Doppler came back negative for DVT.- Patient has Covid.Resuscitation status Full codeVTE ProphylaxisVTE Prophylaxis: Continue Lovenox.DATE SIGNED: 09/10/20 Electronically SignedTIME SIGNED: 2012 TODD ELKINS DO Name Value Range Interpretation Code Description Data Zahraa rce(s) Supporting Document(s) ID Date Data Source [id number] 09/03/2020 02:54:00 PM EST [facility] Name Value Range Interpretation Code Description Data Zahraa rce(s) Supporting Document(s) FGLU 377 mg/dL 70-110 H [facility] ID Date Data Source [id number] 09/03/2020 09:20:00 AM EST [facility] Name Value Range Interpretation Code Description Data Zahraa rce(s) Supporting Document(s) GLU 237 mg/dL 70-110 H [facility] Patients taking Sulfasalazine may have f alsely depressedGlucose levels. Patients taking Sulfapyridine may havefalsely elevated Glucose levels. Patients should be drawnfor Glucose before the initial administration of eitherdrug. BUN 23 mg/dL 7-23 [facility] CRE 1.010 mg/dL 0.500-1.300 [facility] GFR > 60 mL/min [facility] CHLORIDE 102 mmol/L 99-110 [facility] NA 135 mmol/L 136-147 L [facility] POTASSIUM 4.1 mmol/L 3.5-5.1 [facility] TCO2 24 mmol/L 20-33 [facility] ANION GAP 13.1 10.0-20.0 [facility] CA 7.8 mg/dL 8.3-10.7 L [facility] ID Date Data Source [id number] 09/03/2020 08:55:00 AM EST [facility] Name Value Range Interpretation Code Description Data Zahraa rce(s) Supporting Document(s) WBC 11.17 x10E3/uL 4.0-10.5 [facility] RBC 3.88 x10E6/uL 4.70-6.00 L [facility] Hemoglobin 11.9 g/dL 14.0-18.0 L [facility] Hematocrit 35.7 % 42.0-52.0 L [facility] MCV 92.0 fL 81.0-99.0 N [facility] MCH 30.7 pg 27.0-31.0 N [facility] MCHC 33.3 g/dL 32.7-35.6 [facility] RDW 14.3 % 11.5-14.0 H [facility] Platelet count 85 x10E3/uL 150-450 L [facility] MPV 11.8 fl 6.9-9.5 H [facility] Neutrophils 84.1 % 34-64 H [facility] Lymphocytes 9.5 % 25-45 L [facility] Monocytes 4.0 % 1.7-10.6 N [facility] Eosinophils 0.5 % 0.4-7.0 N [facility] Basophils 0.2 % 0.1-2.0 N [facility] Imm. Gran. 1.7 % 0.1-2.0 N [facility] Abs. Neutro. 9.39 x10E3/uL 1.2-7.6 [facility] Abs. Lymph. 1.06 x10E3/uL 1.0-3.5 [facility] Abs. Mcduffie. 0.45 x10E3/uL 0.1-1.0 N [facility] Abs. Eosin. 0.06 x10E3/uL 0.1-0.7 [facility] Abs. Baso. 0.02 x10E3/uL 0.0-0.1 N [facility] Abs. Imm. Gran. 0.19 x10E3/uL 0.0-0.1 [facility] ANRBC% 0 % 0 [facility] ID Date Data Source [id number] 09/03/2020 01:26:00 PM EST [facility] Name Value Range Interpretation Code Description Data Zahraa rce(s) Supporting Document(s) D-DIMER 1.72 mg/L H [facility] CORRECTED REPORT 09/03/20 1325: D-DIMER previously reported as: 3.65 H mg/LCUT OFF VALUE = 0.5 mg/L The negative predictive value for DVT or PE is at 98% whenthe result is below the cut off. ID Date Data Source [id number] 09/03/2020 09:20:00 AM EST [facility] Name Value Range Interpretation Code Description Data Zahraa rce(s) Supporting Document(s) C-REACTIVE PROT 4.19 mg/dL 0.0-0.49 H [facility] ID Date Data Source [id number] 09/03/2020 08:28:00 AM EST [facility] Name Value Range Interpretation Code Description Data Zahraa rce(s) Supporting Document(s) FGLU 280 mg/dL 70-110 H [facility] ID Date Data Source [id number] 09/02/2020 11:59:00 AM EST [facility] [address] [id number] NOTEPATIENT NAME: ALIREZAJANICE PHYSICIAN: TODD ELKINS DOAUTHOR: Luz Elena Elkins DO. DATE: 08/31/20 MR#: [id number] NOTE DATE: 09/02/20 RM#: [id number] TIME: 1218 : 65SubjectiveEvents Since Last EntryPatient seen and examined in room today. Patient stated his breathingdemonstrated improvement since admission. No fever or chill.ObjectiveVital SignsVital Signs-24 HRS/09/01 1857 2030 0241 0630Temp 97.7 97.8 97.6 97.2Pulse 59 54 77 68 52Resp 21 20 16 16B/P 112/58 117/65 117/65 115/66 114/90B/P MeanPulse Ox 98 96 95 97O2 DeliveryO2 Flow UlhePhL63209/02 1035Temp 98.1Pulse 52 47Resp 19B/P 106/60 108/60B/P MeanPulse Ox 97O2 DeliveryO2 Flow MuitGaU5Dsvojj/OutputIntake/Output Summary 24 hours01/ 1900 01/02 0700Intake Total [...] HCl (VITAMIN B1) 100 MG DAILY POTiotropium [place] (Spiriva) 1 puffDAILY INHInsulin Aspart (Humalog Insulin) [...] x10E3/uL) 0.01Nucleated RBC % (auto) (0 %) 001/146392DpgdycaxcUlyluyw (70 - 110 mg/dL) 347 HBgrujqlolcjaVpcmrzirkmau05/31 0800 BLOOD: Blood Culture - RECD1 [id number] BLOOD: Blood Culture - RECDAssessment/PlanProblem List1. Pneumonia due to COVID-19 virusA&P-Continue IV remdesivir, IV Decadron, and PO azithromycin2. Chest painStatus ResolvedA&P-No recurrence.3. Severe sepsisStatus ResolvedA&P-Continue antiviral therapy and antibiotic.4. DiabetesA&P-Continues on insulin sliding scale5. Chronic alcohol abuseA&P-Continue thiamine, folic acid and multivitamin-No sign of alcohol withdrawal.6. HyperlipidemiaA&P-Continue statin7. HypertensionA&P-Continue Coreg8. DepressionA&PContinue Prozac9. BPH (benign prostatic hyperplasia)A&PContinue Pohtjz69. HUMAN RHINOVIRUSA&P-Continue supportive care11 . Elevated d-dimerA&P- CTA ruled out PE. Lower extremity Doppler came back negative for DVT.- Patient has Covid.Resuscitation status Full codeVTE ProphylaxisVTE Prophylaxis: Continue Lovenox.DATE SIGNED: 09/10/20 Electronically SignedTIME SIGNED: 2012 TODD ELKINS DO Name Value Range Interpretation Code Description Data Zahraa rce(s) Supporting Document(s) ID Date Data Source [id number] 09/02/2020 05:55:00 AM EST [facility] Name Value Range Interpretation Code Description Data Zahraa rce(s) Supporting Document(s) TROPI < 0.015 ng/mL 0.000-0.079 N [facility] ID Date Data Source [id number] 09/02/2020 05:55:00 AM EST [facility] COMMENTS TO LAB: CRITICAL HIGH ON GLUCOM ETER Name Value Range Interpretation Code Description Data Zahraa rce(s) Supporting Document(s) GLU 347 mg/dL 70-110 H [facility] Patients taking Sulfasalazine may have f alsely depressedGlucose levels. Patients taking Sulfapyridine may havefalsely elevated Glucose levels. Patients should be drawnfor Glucose before the initial administration of eitherdrug. ID Date Data Source [id number] 09/02/2020 05:55:00 AM EST [facility] Name Value Range Interpretation Code Description Data Zahraa rce(s) Supporting Document(s) C-REACTIVE PROT 11.00 mg/dL 0.0-0.49 H [facility] ital ID Date Data Source [id number] 09/02/2020 05:55:00 AM EST [facility] Name Value Range Interpretation Code Description Data Zahraa rce(s) Supporting Document(s) MAGNESIUM 1.6 mg/dL 1.6-2.6 N [facility] ID Date Data Source [id number] 09/02/2020 05:55:00 AM EST [facility] Name Value Range Interpretation Code Description Data Zahraa rce(s) Supporting Document(s) GLU 347 mg/dL 70-110 H [facility] Patients taking Sulfasalazine may have f alsely depressedGlucose levels. Patients taking Sulfapyridine may havefalsely elevated Glucose levels. Patients should be drawnfor Glucose before the initial administration of eitherdrug. BUN 21 mg/dL 7-23 [facility] CRE 1.040 mg/dL 0.500-1.300 [facility] GFR > 60 mL/min [facility] CHLORIDE 105 mmol/L 99-110 [facility] NA 136 mmol/L 136-147 [facility] POTASSIUM 4.5 mmol/L 3.5-5.1 [facility] TCO2 21 mmol/L 20-33 [facility] ANION GAP 14.5 10.0-20.0 [facility] CA 6.9 mg/dL 8.3-10.7 [facility] ALKALINE PHOS 84 U/L 45-117 [facility] TP 5.1 g/dL 6.0-7.8 [facility] ALB 2.4 g/dL 3.5-5.0 [facility] ESRD Dialysis patient Albumin reference range: 2.9-4.4 g/dL GL 2.7 g/dL 2.3-3.5 [facility] A/G 0.9 1.0-2.5 [facility] T. BILIRUBIN 0.5 mg/dL 0.1-1.1 [facility] [employer] [place] Total Bilirubin is n ot recommended forpatients undergoing treatment with eltrombopag (Promacta)due to the potential for falsely elevated results. ALTI 21 U/L 6-54 [facility] Patients taking Sulfasalazine and/or Sul fapyridine may havefalsely depressed ALT levels. Patients should be drawn forALT before the initial administration of either drug. AST 18 U/L 8-40 [facility] Patients taking Sulfasalazine and/or Sul fapyridine may havefalsely depressed AST levels. Patients should be drawn forAST before the initial administration of either drug. ID Date Data Source [id number] 09/02/2020 05:41:00 AM EST [facility] Name Value Range Interpretation Code Description Data Zahraa rce(s) Supporting Document(s) D-DIMER 4.40 mg/L [facility] CUT OFF VALUE = 0.5 mg/L The negative pr edictive value for DVT or PE is at 98% whenthe result is below the cut off. ID Date Data Source [id number] 09/02/2020 05:15:00 AM EST [facility] Name Value Range Interpretation Code Description Data Zahraa rce(s) Supporting Document(s) WBC 12.16 x10E3/uL 4.0-10.5 [facility] RBC 3.69 x10E6/uL 4.70-6.00 [facility] Hemoglobin 11.3 g/dL 14.0-18.0 [facility] Hematocrit 34.5 % 42.0-52.0 [facility] MCV 93.5 fL 81.0-99.0 [facility] MCH 30.6 pg 27.0-31.0 [facility] MCHC 32.8 g/dL 32.7-35.6 [facility] RDW 14.0 % 11.5-14.0 [facility] Platelet count 70 x10E3/uL 150-450 [facility] MPV 12.2 fl 6.9-9.5 [facility] Neutrophils 89.4 % 34-64 [facility] Lymphocytes 6.2 % 25-45 [facility] Monocytes 3.4 % 1.7-10.6 [facility] Eosinophils 0.2 % 0.4-7.0 L [facility] Basophils 0.1 % 0.1-2.0 N [facility] Imm. Gran. 0.7 % 0.1-2.0 [facility] Abs. Neutro. 10.88 x10E3/uL 1.2-7.6 [facility] Abs. Lymph. 0.75 x10E3/uL 1.0-3.5 [facility] Abs. Mcduffie. 0.41 x10E3/uL 0.1-1.0 [facility] Abs. Eosin. 0.02 x10E3/uL 0.1-0.7 [facility] Abs. Baso. 0.01 x10E3/uL 0.0-0.1 [facility] Abs. Imm. Gran. 0.09 x10E3/uL 0.0-0.1 N [facility] spital ANRBC% 0 % 0 [facility] ID Date Data Source [id number] 09/01/2020 08:31:00 PM EST [facility] Name Value Range Interpretation Code Description Data Zahraa rce(s) Supporting Document(s) FGLU 380 mg/dL 70-110 H [facility] ID Date Data Source [id number] 09/01/2020 07:03:00 PM EST [facility] Name Value Range Interpretation Code Description Data Zahraa rce(s) Supporting Document(s) FGLU 377 mg/dL 70-110 [facility] ID Date Data Source [id number] 09/01/2020 04:09:00 PM EST [facility] Exam Number: [id number] OF EXAMINATIO N: 09/01/2020 18:02 ESTU/S VENOUS [...] rce(s) Supporting Document(s) ID Date Data Source [id number] 09/01/2020 12:41:00 PM EST [facility] Name Value Range Interpretation Code Description Data Zahraa rce(s) Supporting Document(s) FGLU 288 mg/dL 70-110 H [facility] ID Date Data Source [id number] 09/01/2020 11:40:00 AM [facility] [address] [id number] NOTEPATIENT NAME: ALIREZAJANICE PHYSICIAN: AMADO BAXTER MDAUTHOR: Noe Mendez. DATE: 08/31/20 MR#: [id number] NOTE DATE: 09/01/20 RM#: [id number] TIME: 1151 [...] MeanPulse Ox 96 97 95O2 DeliveryO2 Flow [id number] 97.4Pulse 57Resp 18B/P 109/53B/P MeanPulse Ox 96O2 DeliveryO2 Flow AypcKkL9Afofhg/OutputIntake/Output Summary 24 hours08/31 1900 09/01 0700Intake Total [...] HCl (VITAMIN B1) 100 MG DAILY POTiotropium [place] (Spiriva) 1 puffDAILY INHInsulin Aspart (Humalog Insulin) [...] no lymphadenopathyPsych/Mental Status normal affectResultsLaboratory DataRecent Labs-24 hours08/31701136 9713 0455ChemistrySodium (136 - 147 mmol/L) 137Potassium (3.5 [...] 10 %) 4Platelet Morphology DECREASEDRBC Morphology 1+ WDWIFDZJMQCH2809/01 0522ChemistryPOC Glucose (70 - 110 mg/dL) 399 HHemoglobin A1c PendingRadiologyEXAM# TYPE/EXAM [id number] CT/CT ANGIO CHEST WITH IV FOR PDATE [...] pulmonary embolus.PAGE 1 Signed Report Printed From [facility], [place] [id number] CONSULTATIONDate of : 1965 Name: JANICE VERMA MMedrec Number: [id number] Phys: GISSELLE KAUFMAN STRUCTURAL WORKER-CExam Date: 08/31/2020 Location: 2EASTProcedure: ANGIOCXRPE, CT ANGIO CHEST WITH IV Rad Numb: [id number] \\EXAM# TYPE/EXAM [id number] CT/CT ANGIO CHEST WITH IV FOR PElectronically [...] satisfactory.8. DepressionA&PContinue Prozac9. BPH (benign prostatic hyperplasia)A&PContinue Xrlyqx17. HUMAN RHINOVIRUSA&PSupportive care.11. Elevated d-dimerA&PCTA ruled out PE. Doubt DVT in lower extremities however ultrasound ispending. This will need follow-up.Additional NotesDVT prophylaxis with LovenoxHe is on PPI for GI prophylaxis given his steroid useTotal time spent 35 minutesDisposition plan discharge after remdesivir complete.Resuscitation status Full codePlan discussed with patientCase discussed with renal case manager, nursing staffADDENDUM: Gisselle Mendez on 09/01/20 at 1749EXAM# TYPE/EXAM [id number] US/U/S VENOUS DOPP ARM/LEG BILADATE OF EXAMINATION: [...] rce(s) Supporting Document(s) ID Date Data Source [id number] 09/01/2020 05:29:00 AM EST [facility] Name Value Range Interpretation Code Description Data Zahraa rce(s) Supporting Document(s) FGLU 399 mg/dL 70-110 H [facility] ID Date Data Source [id number] 09/01/2020 11:54:00 AM EST [facility] COMMENTS TO LAB: off am labs Name Value Range Interpretation Code Description Data Zahraa rce(s) Supporting Document(s) HbA1C 7.50 % 3.8-5.6 H [facility] Suggested Diagnosis HbA1c% Diabet ic >/= 6.5Prediabetes 5.7%-6.4%Normal < 5.7% ID Date Data Source [id number] 09/01/2020 06:26:00 AM EST [facility] Name Value Range Interpretation Code Description Data Zahraa rce(s) Supporting Document(s) WBC 10.21 x10E3/uL 4.0-10.5 [facility] RBC 3.49 x10E6/uL 4.70-6.00 L [facility] Hemoglobin 10.9 g/dL 14.0-18.0 L [facility] Hematocrit 32.9 % 42.0-52.0 L [facility] MCV 94.3 fL 81.0-99.0 [facility] MCH 31.2 pg 27.0-31.0 H [facility] MCHC 33.1 g/dL 32.7-35.6 [facility] RDW 14.3 % 11.5-14.0 [facility] Platelet count 70 x10E3/uL 150-450 [facility] MPV 11.7 fl 6.9-9.5 [facility] SEG. NEUTROPHIL 82 % 34-64 [facility] BAND 8 % 5-11 [facility] LYMPHOCYTE 6 % 25-45 L [facility] MONOCYTES 4 % 2-10 [facility] PLATELET MORPH DECREASED [facility] PLATELET MORPHOLOGY EXPECTED RESULT:NORM AL = NO REMARKABLE MORPHOLOGYAny findings other than Normal will be reported and areconsidered Abnormal. The significance of Abnormal findingsare to be clinically correlated by the provider. RBC MORPHOLOGY 1+ ANISOCYTOSIS N [facility] ospital RBC MORPHOLOGY EXPECTED RESULTS: NORMAL = NORMOCHROMIC, NORMOCYTIC CELLSAny findings other than Normal will be reported and areconsidered Abnormal. The significance of Abnormalfindings are to be clinically correlated by the provider. ID Date Data Source [id number] 09/01/2020 05:52:00 AM EST [facility] Name Value Range Interpretation Code Description Data Zahraa rce(s) Supporting Document(s) GLU 350 mg/dL 70-110 H [facility] Patients taking Sulfasalazine may have f alsely depressedGlucose levels. Patients taking Sulfapyridine may havefalsely elevated Glucose levels. Patients should be drawnfor Glucose before the initial administration of eitherdrug. BUN 20 mg/dL 7-23 [facility] CRE 1.210 mg/dL 0.500-1.300 [facility] GFR > 60 mL/min [facility] CHLORIDE 106 mmol/L 99-110 [facility] NA 137 mmol/L 136-147 [facility] POTASSIUM 4.1 mmol/L 3.5-5.1 [facility] TCO2 21 mmol/L 20-33 [facility] ANION GAP 14.1 10.0-20.0 [facility] CA 7.0 mg/dL 8.3-10.7 [facility] ALKALINE PHOS 71 U/L 45-117 [facility] TP 5.2 g/dL 6.0-7.8 [facility] ALB 2.6 g/dL 3.5-5.0 [facility] ESRD Dialysis patient Albumin reference range: 2.9-4.4 g/dL GL 2.6 g/dL 2.3-3.5 [facility] A/G 1.0 1.0-2.5 [facility] T. BILIRUBIN 0.4 mg/dL 0.1-1.1 [facility] [employer] [place] Total Bilirubin is n ot recommended forpatients undergoing treatment with eltrombopag (Promacta)due to the potential for falsely elevated results. ALTI 22 U/L 6-54 [facility] Patients taking Sulfasalazine and/or Sul fapyridine may havefalsely depressed ALT levels. Patients should be drawn forALT before the initial administration of either drug. AST 13 U/L 8-40 [facility] Patients taking Sulfasalazine and/or Sul fapyridine may havefalsely depressed AST levels. Patients should be drawn forAST before the initial administration of either drug. ID Date Data Source [id number] 09/01/2020 05:49:00 AM EST [facility] Name Value Range Interpretation Code Description Data Zahraa rce(s) Supporting Document(s) C-REACTIVE PROT 15.50 mg/dL 0.0-0.49 H [facility] ital ID Date Data Source [id number] 09/01/2020 05:49:00 AM EST [facility] Name Value Range Interpretation Code Description Data Zahraa rce(s) Supporting Document(s) MAGNESIUM 1.9 mg/dL 1.6-2.6 [facility] ID Date Data Source [id number] 08/31/2020 08:22:00 PM EST [facility] Exam Number: [id number] OF EXAMINATIO N: 08/31/2020 18:02 ESTCT ANGIO [...] pulmonary embolus.Electronically signed in PS360 by: Christie oMon M.D. 08/31/202020:10 EST Reported By: - Christie Buckley M.D. Signed By: Christie Buckley M.D. Name Value Range Interpretation Code Description Data Zahraa rce(s) Supporting Document(s) ID Date Data Source [id number] 08/31/2020 04:57:00 PM EST [facility] Name Value Range Interpretation Code Description Data Zahraa rce(s) Supporting Document(s) FGLU 349 mg/dL 70-110 H [facility] ID Date Data Source [id number] 08/31/2020 01:26:00 PM EST [facility] Name Value Range Interpretation Code Description Data Zahraa rce(s) Supporting Document(s) FGLU 231 mg/dL 70-110 H [facility] ID Date Data Source [id number] 09/05/2020 12:42:00 PM EST [facility] Name Value Range Interpretation Code Description Data Zahraa rce(s) Supporting Document(s) [facility] ID Date Data Source [id number] 09/05/2020 12:42:00 PM EST [facility] Name Value Range Interpretation Code Description Data Zahraa rce(s) Supporting Document(s) [facility] ID Date Data Source [id number] 08/31/2020 08:42:00 AM EST [facility] Name Value Range Interpretation Code Description Data Zahraa rce(s) Supporting Document(s) LACTIC ACID 2 2.0 MMOL/L 0.4-2.0 N [facility] l ID Date Data Source [id number] 08/31/2020 05:54:00 AM EST [facility] Name Value Range Interpretation Code Description Data Zahraa rce(s) Supporting Document(s) FGLU 301 mg/dL 70-110 H [facility] ID Date Data Source [id number] 08/31/2020 05:29:00 AM EST [facility] Name Value Range Interpretation Code Description Data Zahraa rce(s) Supporting Document(s) WBC 13.84 x10E3/uL 4.0-10.5 H [facility] l RBC 3.77 x10E6/uL 4.70-6.00 [facility] Hemoglobin 11.6 g/dL 14.0-18.0 [facility] Hematocrit 34.9 % 42.0-52.0 [facility] MCV 92.6 fL 81.0-99.0 [facility] MCH 30.8 pg 27.0-31.0 [facility] MCHC 33.2 g/dL 32.7-35.6 [facility] RDW 14.4 % 11.5-14.0 [facility] Platelet count 82 x10E3/uL 150-450 [facility] MPV 11.8 fl 6.9-9.5 [facility] ANRBC% 0 % 0 [facility] SEG. NEUTROPHIL 82 % 34-64 [facility] BAND 5 % 5-11 [facility] LYMPHOCYTE 8 % 25-45 L [facility] MONOCYTES 5 % 2-10 N [facility] PLATELET MORPH DECREASED N [facility] l PLATELET MORPHOLOGY EXPECTED RESULT:NORM AL = NO REMARKABLE MORPHOLOGYAny findings other than Normal will be reported and areconsidered Abnormal. The significance of Abnormal findingsare to be clinically correlated by the provider. ID Date Data Source [id number] 08/31/2020 05:11:00 AM EST [facility] Name Value Range Interpretation Code Description Data Zahraa rce(s) Supporting Document(s) MAGNESIUM 1.7 mg/dL 1.6-2.6 N [facility] ID Date Data Source [id number] 08/31/2020 05:11:00 AM EST [facility] Name Value Range Interpretation Code Description Data Zahraa rce(s) Supporting Document(s) MELISSA 2.7 mg/dL 2.5-4.5 N [facility] ID Date Data Source [id number] 08/31/2020 05:11:00 AM EST [facility] Name Value Range Interpretation Code Description Data Zahraa rce(s) Supporting Document(s) TROPI < 0.015 ng/mL 0.000-0.079 [facility] Date Data Source [id number] 08/31/2020 05:11:00 AM EST [facility] Name Value Range Interpretation Code Description Data Zahraa rce(s) Supporting Document(s) C-REACTIVE PROT 11.70 mg/dL 0.0-0.49 H [facility] ital ID Date Data Source [id number] 08/31/2020 05:11:00 AM EST [facility] Name Value Range Interpretation Code Description Data Zahraa rce(s) Supporting Document(s) GLU 296 mg/dL 70-110 [facility] Patients taking Sulfasalazine may have f alsely depressedGlucose levels. Patients taking Sulfapyridine may havefalsely elevated Glucose levels. Patients should be drawnfor Glucose before the initial administration of eitherdrug. BUN 18 mg/dL 7-23 [facility] CRE 1.220 mg/dL 0.500-1.300 [facility] GFR > 60 mL/min [facility] CHLORIDE 105 mmol/L 99-110 [facility] NA 136 mmol/L 136-147 [facility] POTASSIUM 4.7 mmol/L 3.5-5.1 [facility] TCO2 22 mmol/L 20-33 [facility] ANION GAP 13.7 10.0-20.0 [facility] CA 7.2 mg/dL 8.3-10.7 L [facility] ALKALINE PHOS 71 U/L 45-117 [facility] TP 6.0 g/dL 6.0-7.8 [facility] ALB 2.9 g/dL 3.5-5.0 [facility] ESRD Dialysis patient Albumin reference range: 2.9-4.4 g/dL GL 3.1 g/dL 2.3-3.5 [facility] A/G 0.9 1.0-2.5 [facility] T. BILIRUBIN 0.4 mg/dL 0.1-1.1 [facility] [employer] [place] Total Bilirubin is n ot recommended forpatients undergoing treatment with eltrombopag (Promacta)due to the potential for falsely elevated results. ALTI 37 U/L 6-54 [facility] Patients taking Sulfasalazine and/or Sul fapyridine may havefalsely depressed ALT levels. Patients should be drawn forALT before the initial administration of either drug. AST 27 U/L 8-40 [facility] Patients taking Sulfasalazine and/or Sul fapyridine may havefalsely depressed AST levels. Patients should be drawn forAST before the initial administration of either drug. ID Date Data Source [id number] 08/31/2020 05:05:00 AM EST [facility] Name Value Range Interpretation Code Description Data Zahraa rce(s) Supporting Document(s) TROPI < 0.015 ng/mL 0.000-0.079 [facility] Date Data Source [id number] 08/31/2020 04:57:00 AM EST [facility] Name Value Range Interpretation Code Description Data Zahraa rce(s) Supporting Document(s) LACTIC ACID JANIA 2.6 mmol/L 0.4-2.0 [facility] ID Date Data Source [id number] 08/31/2020 04:56:00 AM EST [facility] Name Value Range Interpretation Code Description Data Zahraa rce(s) Supporting Document(s) D-DIMER 1.79 mg/L H [facility] CUT OFF VALUE = 0.5 mg/L The negative pr edictive value for DVT or PE is at 98% whenthe result is below the cut off. ID Date Data Source [id number] 08/31/2020 03:33:00 AM EST [facility] [address] [id number] AND PHYSICALPATIENT NAME: JANICE VERMA MR#: [id number] PHYSICIAN: AMADO BAXTER MDAUTHOR: Amado Baxter MD DATE: 08/31/20 RM#: [id number] & PHYSICAL DATE: 08/31/20 : 65EVALUATION TIME: 0438HistoryChief Complaint/Admit ReasonChest pain and shortness of breathHistory of Presenting [id number] male with a past medical history of diabetes, chronicalcohol abuse, cirrhosis, depression, GERD, BPH, hypertension, hematemesispresented to the ED at [facility] with complaints of centrally locatedchest pain scribed as dull and sharp 8 out of 10 and shortness of breath whichstarted yesterday but has worsened to the point where he needed to be evaluatedin the ER. Reported to me chest pain does not radiate and there are nodiaphoresis. There was some nausea and bilious vomiting x1. EKG at [facility] showed nonspecific ST/T wave changes, troponin was negative. At [facility] patient was found on chest x-ray and CT of the chest without IVcontrast to have multi focal consolidations consistent with pneumonia likelyCOVID-19 pulmonary disease. Patient tested positive for COVID-19, and humanrhinovirus also found with severe sepsis given IV fluids at [facility].Patient's O2 saturation ranges in the mid 90s on room air. Temperature of99.5. Lactic acid of 4.8. Ferritin 171. VBG with pH of 7.3, PCO2 of 30.7,PO2 of 58. Denies any abdominal pain, palpitations, diarrhea, h eadache,dizziness or lightheadedness. Patient was given remdesivir, dexamethasone,ceftriaxone, azithromycin, Xopenex, aspirin, morphine and IV fluids at [facility] and transferred to [facility] for further management.Past Medical/Surgical HistoryPast Medical/Surgical HistoryMedical ProblemsBPH (benign prostatic hyperplasia)Chest painChronic alcohol abuseDepressionDiabetesHUMAN RHINOVIRUSHyperlipidemiaHypertensionPneumonia due to COVID-19 virusSevere sepsisReconciled Home Med ListSee Reconciled Home Medication ListAllergiesCoded Allergies:niacin (Intermediate, FACIAL REDDNESS/ITCHING 04/17/17)Family history Father from an [place] at age of 68.Social History no recreational [...] polyuria.NeurologicalDenies: dizziness, seizure.PsychDenies: agitation, anxiety.ExamVital SignsVital Signs-24 HRS12/199542Nkxn 97.8Pulse 75Resp 17B/P 118/72B/P MeanPulse Ox 94O2 DeliveryO2 Flow DncmMbZ1Nefmgsfv ExaminationGeneral Appearance no acute distress, afebrile, alert, [...] Status normal affectData ReviewLaboratory DataLaboratory data from [facility] on 08/30/2020.WBC 19.7, hemoglobin 12.9 hematocrit [...] and human rhinovirus.Imaging1. Chest x-ray report from [facility] done 08/30/2020:Findings:Patchy bilateral lower lobe infiltrates left greater than right most concerningfor multifocal pneumonia. COVID-19 pulmonary disease cannot be excluded. Noeffusion. No pneumothorax. The sternum and cardiac silhouette are normal.Impression:Findings consistent with multifocal pneumonia. Patient should be evaluated forCOVID-[address] of the chest without IV contrast done at [facility] on 08/30/2020.Findings:Diffuse patchy bilateral areas of [...] given 324 mg of chewable aspirin at [facility]. EKG withnonspecific ST-T wave changes. Troponin was negative at [facility].-We will cycle troponin- Monitor on telemetry every 4 vital signs.-Morphine as needed for pain4. DiabetesA&PPatient placed on insulin sliding scale. Monitor fingersticks.5. Chronic alcohol abuseA&PChronic alcohol abuse. Last drink yesterday.-Place patient on [facility] protocol-Start folic acid, thiamine. Will hold [...] rce(s) Supporting Document(s) ID Date Data Source [id number] 08/30/2020 09:53:00 PM [facility] TSYSORDER [id number] Name Value Range Interpretation Code Description Data Zahraa rce(s) Supporting Document(s) LACTIC ACID 2.3 mmol/L 0.4-2.[address] [facility] ID Date Data Source [id number] 08/30/2020 06:54:00 PM [facility] [...] rce(s) Supporting Document(s) ID Date Data Source [id number] 08/30/2020 05:57:00 PM [facility] [...] rce(s) Supporting Document(s) ID Date Data Source [id number] 08/30/2020 06:07:00 PM EST [facility] TSYSORDER [id number] Name Value Range Interpretation Code Description Data [...] [facility] ID Date Data Source [id number] 09/06/2020 11:33:00 AM EST [facility] Name Value Range Interpretation Code Description Data Zahraa rce(s) Supporting Document(s) [facility] ID Date Data Source [id number] 09/06/2020 11:33:00 AM EST [facility] FIRST [facility] Name Value Range Interpretation Code Description Data Zahraa rce(s) Supporting Document(s) [facility] ID Date Data Source [id number] 08/30/2020 03:35:00 PM EST [facility] Name Value Range Interpretation Code Description Data Zahraa rce(s) Supporting Document(s) SARS COV2 TRP [facility] This lab was ordered by [facility] and reported by [facility]. ID Date Data Source [id number] 08/30/2020 05:19:00 PM EST [facility] TSYSORDER [id number] Name Value Range Interpretation Code Description Data Zahraa rce(s) Supporting Document(s) FERRITIN 171 ng/mL 26-[address] [facility] ID Date Data Source [id number] 08/30/2020 05:11:00 PM EST [facility] TSYSORDER [id number] Name Value Range Interpretation Code Description Data Zahraa rce(s) Supporting Document(s) LACTIC ACID 4.8 mmol/L 0.4-2.[address] [facility] ID Date Data Source [id number] 08/30/2020 05:06:00 PM EST [facility] TSYSORDER [id number] Name Value Range Interpretation Code Description Data Zahraa rce(s) Supporting Document(s) C REACTIVE PROTEIN 11.5 mg/L 0.0-3.0 [facility] ID Date Data Source [id number] 08/30/2020 05:06:00 PM EST [facility] TSYSORDER [id number] Name Value Range Interpretation Code Description Data Zahraa rce(s) Supporting Document(s) CREATINE PHOSPHOKINASE 164 U/L 39-308 [facility] ID Date Data Source [id number] 08/30/2020 04:28:00 PM EST [facility] TSYSORDER [id number] Name Value Range Interpretation Code Description Data Zahraa rce(s) Supporting Document(s) GLUCOSE 280 mg/dL 74-[address] [facility] BLOOD UREA NITROGEN 20 mg/dL 7-18 [facility] ital CREATININE 1.25 mg/dL 0.7-1.[address] [facility] SODIUM 130 mmol/L 136-[address] [facility] POTASSIUM 4.8 mmol/L 3.5-5.[address] [facility] CHLORIDE 95 mmol/L 98-[address] [facility] CO2 18 mmol/L 21-[address] [facility] CALCIUM 8.4 mg/dL 8.5-10.[address] [facility] ANION GAP 17.0 mmol/L 5-[address] [facility] GLOMERULAR FILTRATION RATE 60 mL/min [facility] GFR IS CALCULATED IN mL/min/1.73m2 VINICIUS L FUNCTION: >90MILDLY DECREASED: 60-89MILDY TO MODERATELY DECREASED: 45-59 MODERATELY TO SEVERELY DECREASED: 30-44SEVERELY DECREASED: 15-29RENAL FAILURE: <15 AST 46 U/L 15-[address] [facility] ALT 45 U/L 12-[address] [facility] ALKALINE PHOSPHATASE 86 U/L 46-116 [facility] TOTAL BILIRUBIN 0.4 mg/dL 0.2-1.[address] [facility] TOTAL PROTEIN 7.3 g/dl 6.4-8.[address] [facility] ALBUMIN 3.8 gm/dL 3.4-5.[address] [facility] ID Date Data Source [id number] 08/30/2020 04:21:00 PM EST [facility] TSYSORDER [id number] Name Value Range Interpretation Code Description Data Zahraa rce(s) Supporting Document(s) FREE T4 1.0 ng/dL 0.76-1.[address] [facility] ID Date Data Source [id number] 08/30/2020 04:21:00 PM [facility] [id number] Name Value Range Interpretation Code Description Data Zahraa rce(s) Supporting Document(s) TSH 0.868 uIU/mL 0.36-3.[address] [facility] ID Date Data Source [id number] 08/30/2020 04:19:00 PM EST [facility] Name Value Range Interpretation Code Description Data Zahraa rce(s) Supporting Document(s) PARTIAL THROMBOPLASTIN TIME 26.0 SECONDS 21.2-27.[address] [facility] ID Date Data Source [id number] 08/30/2020 04:19:00 PM EST [facility] Name Value Range Interpretation Code Description Data Zahraa rce(s) Supporting Document(s) PROTHROMBIN TIME (PATIENT) 10.9 SECONDS 9.1-11.[address] [facility] INR 1.05 0.87-1.[address] [facility] ID Date Data Source [id number] 08/30/2020 03:16:00 PM [facility] TSYSORDER [id number] Name Value Range Interpretation Code Description Data Zahraa rce(s) Supporting Document(s) NEUTROPHILS 87 % 50-[address] [facility] BAND 6 % 0-[address] [facility] LYMPHOCYTE 4 % 25-[address] [facility] MONOCYTE 3 % 2.0-10.[address] [facility] PLATELET ESTIMATE DECREASED NORMAL [facility] al RBC MORPHOLOGY EXPECTED RESULTS:NORMAL= NORMOCHROMIC, NORMOCYTIC CELLSAbnormal Morphologic Findings > or = to 1+ are reported.Clinicopathologic correlation by the provider is required todetermine significance of finding. ID Date Data Source [id number] 08/30/2020 04:17:00 PM [facility] TSYSORDER [id number] Name Value Range Interpretation Code Description Data [facility] rce(s) Supporting Document(s) WHITE BLOOD COUNT 19.7 K/mm3 4.0-10.0 [facility] RED BLOOD COUNT 4.16 M/mm3 4.50-6.00 L [facility] HEMOGLOBIN 12.9 gm/dL 14.0-18.[address] [facility] HEMATOCRIT 37.6 % 42.0-54.[address] [facility] MEAN CELL VOLUME 90.4 fl 80-96 [facility] MEAN CORPUSCULAR HEMOGLOBIN 31.0 pg 27.0-31.0 H [facility] MEAN CORPUSCULAR HGB CONC 34.3 g/dl 32.0-36.0 [facility] RED CELL DISTRIBUTION WIDTH 14.0 % 10.0-14.5 [facility] PLATELET COUNT 119 K/mm3 172-[address] [facility] MEAN PLATELET VOLUME 11.4 fl 9.0-13.0 [facility] GRAN % 92.7 % 50-80.[address] [facility] IG% 0.3 % 0.0-0.2 [facility] LYMPH % 2.1 % 25.0-50.0 *L [facility] MONO % 4.9 % 2.0-10.0 [facility] EOS % 0.0 % 0-5.0 [facility] BASO % 0.0 % 0.0-2.0 [facility] GRAN # 18.2 K/mm3 2.0-8.00 *H [facility] IG# 0.1 K/mm3 0.0-0.2 [facility] LYMPH # 0.4 K/mm3 1.0-5.0 L [facility] MONO # 1.0 K/mm3 0.10-1.20 [facility] EOS # 0.0 K/mm3 0.0-0.5 [facility] BASO # 0.0 K/mm3 0.0-0.2 [facility] ID Date Data Source [id number] 08/30/2020 04:45:00 PM EST [facility] TSYSORDER [id number] Name Value Range Interpretation Code Description Data Zahraa rce(s) Supporting Document(s) Adenovirus Not Detected Detected Not [facility] Coronavirus 229E Not Detected Detected Not [facility] Coronavirus HKU1 Not Detected Detected Not [facility] Coronavirus NL63 Not Detected Detected Not [facility] Coronavirus OC43 Not Detected Detected Not [facility] Sars Cov 2 DETECTED Detected Not [facility] Human Metapneumovirus Not Detected Detected [facility] Human Rhinovirus DETECTED Detected [facility] Influenza A Not Detected Detected [facility] Influenza B Not Detected Detected Not [facility] Parainfluenza Virus 1 Not Detected Detected [facility] Parainfluenza Virus 2 Not Detected Detected Not [facility] Parainfluenza Virus 3 Not Detected Detected [facility] Parainfluenza Virus 4 Not Detected Detected Not [facility] Respiratory Syncytial Virus Not Detected Detected Not [facility] Bordetella parapertus ([id number]) Not Detected Detected Not [facility] Bordetella pertussis (ptxP) Not Detected Detected Not [facility] Chlamydia pneumoniae Not Detected Detected Not [facility] Mycoplasma pneumoniae Not Detected Detected Not [facility] The Above results have been determined b y using the [employer] system.[employer] is an automated in vitro diagnostic system thatutilizes nested multiplex Polymerase Chain Reaction (PCR)and high-resolution melting analysis to detect and identifymultiple nucleic acid targets from clinical specimens. ID Date Data Source [id number] 08/30/2020 04:28:00 PM EST [facility] TSYSORDER [id number] Name Value Range Interpretation Code Description Data Zahraa rce(s) Supporting Document(s) MAGNESIUM 1.8 mg/dL 1.8-2.[address] [facility] ID Date Data Source [id number] 08/30/2020 04:28:00 PM EST [facility] TSYSORDER [id number] Name Value Range Interpretation Code Description Data Zahraa rce(s) Supporting Document(s) TROPONIN I < 0.017 ng/mL 0.0-0.[address] [facility] ID Date Data Source [id number] 08/30/2020 04:28:00 PM EST [facility] TSYSORDER [id number] Name Value Range Interpretation Code Description Data Zahraa rce(s) Supporting Document(s) LIPASE 123 U/L 73-[address] [facility] ID Date Data Source [id number] 08/18/2020 11:00:00 PM EST [facility] Name Value Range Interpretation Code Description Data Zahraa rce(s) Supporting Document(s) SARS coronavirus 2 RNA [Presence] in Res piratory specimen by [facility] with probe detection [facility] This lab was ordered by [facility] a nd reported by [facility]. ID Date Data Source [id number] 08/09/2020 09:20:00 AM EST [facility] Name Value Range Interpretation Code Description Data Zahraa rce(s) Supporting Document(s) SARS coronavirus 2 RNA [Presence] in Res piratory specimen by DILLON with probe detection [facility] This lab was ordered by [facility] a nd reported by [facility]. ID Date Data Source [id number] 07/13/2020 05:03:06 PM EST [facility] Name Value Range Interpretation Code Description Data Zahraa rce(s) Supporting Document(s) Discharge Summary [facility] [id number] lbm [file] [id number] ID Date Data Source [id number] 07/10/2020 12:00:27 PM [facility] Name Value Range Interpretation Code Description Data Zahraa rce(s) Supporting Document(s) Glucose [Mass/volume] in Capillary blood by Glucometer 229 mg/dL 70- [address] [facility] ID Date Data Source [id number] 07/10/2020 09:43:36 AM [facility] Name Value Range Interpretation Code Description Data Zahraa rce(s) Supporting Document(s) Glucose [Mass/volume] in Capillary blood by Glucometer 203 mg/dL 70- [address] [facility] ID Date Data Source [id number] 07/10/2020 04:22:11 AM [facility] Name Value Range Interpretation Code Description Data Zahraa rce(s) Supporting Document(s) Leukocytes [#/volume] in Blood by Automated count 3.9 10*3/uL 4-[address] [facility] Erythrocytes [#/volume] in Blood by Automated count 3.40 10*6/uL 4.6- 6.[address] [facility] Hemoglobin [Mass/volume] in Blood 10.7 g/dL 13.5-[address] [facility] Hematocrit [Volume Fraction] of Blood by Automated count 31.6 % 4 1-[address] [facility] Erythrocyte mean corpuscular volume [Entitic volume] by Auto mated count 92.8 fL 80-96 [facility] Erythrocyte mean corpuscular hemoglobin [Entitic mass] by Automated count 31.4 pg 27-33 [facility] Erythrocyte mean corpuscular hemoglobin concentration [Mass/volume] by Automated count 33.8 g/dL 32.0-36.0 [facility] distribution width [Ratio] by Automated count 14.5 % 11.5-14.5 [facility] Platelets [#/volume] in Blood by Automated count 58 10*3/uL 150-[address] [facility] Differential cell count method - Blood [facility] Neutrophils/100 leukocytes in Blood by Automated count 59 % [facility] Lymphocytes/100 leukocytes in Blood by Automated count 26 % [facility] Monocytes/100 leukocytes in Blood by Automated count 12 % [facility] Eosinophils/100 leukocytes in Blood by Automated count 2 % [facility] Basophils/100 leukocytes in Blood by Automated count 1 % [facility] Neutrophils [#/volume] in Blood by Automated count 2.31 10*3/uL 1.8-[address] [facility] Lymphocytes [#/volume] in Blood by Automated count 1.02 10*3/uL 1.2-[address] [facility] Monocytes [#/volume] in Blood by Automated count 0.47 10*3/uL 0-0.8 [facility] Eosinophils [#/volume] in Blood by Automated count 0.10 10*3/uL 0-0.5 [facility] Basophils [#/volume] in Blood by Automated count 0.03 10*3/uL 0-0.2 [facility] Nucleated erythrocytes/100 leukocytes [Ratio] in Blood by Automated count 0 /100{WBCs} 0-0 [facility] ID Date Data Source [id number] 07/10/2020 04:44:03 AM [facility] Name Value Range Interpretation Code Description Data Zahraa rce(s) Supporting Document(s) Phosphate [Mass/volume] in Serum or Plasma 2.4 mg/dL 2.5-4.5 [facility] ID Date Data Source [id number] 07/10/2020 04:44:03 AM [facility] Name Value Range Interpretation Code Description Data Zahraa rce(s) Supporting Document(s) Albumin [Mass/volume] in Serum or Plasma by Bromocresol green (BCG) dye binding method 3.2 g[facility]dL 3.5-5.[facility] Bil[facility] [Mass/volume] in Serum or Plasma 0.4 mg/dL <1.2 [facility] Calcium [Mass/volume] in Serum or Plasma 8.0 mg/dL 8.6-10.0 [facility] Chloride [Moles/volume] in Serum or Plasma 107 mmol/L 98-107 [facility] Creatinine [Mass/volume] in Serum or Plasma 0.75 mg/dL 0.70-1.20 [facility] Glucose [Mass/volume] in Serum or Plasma 122 mg/dL 70-140 [facility] Alkaline phosphatase [Enzymatic activity/volume] in Serum or Plasma 55 U/L 40-129 [facility] Potassium [Moles/volume] in Serum or Plasma 3.6 mmol/L 3.4-5.1 [facility] Protein [Mass/volume] in Serum or Plasma 5.1 g/dL 6.4-8.3 [facility] Sodium [Moles/volume] in Serum or Plasma 141 mmol/L 136-145 [facility] Aspartate aminotransferase [Enzymatic activity/volume] in Serum or Plasma 37 U/L <40 [facility] Urea nitrogen [Mass/volume] in Serum or Plasma 4 mg/dL 6-20 [facility] Osmolality of Serum or Plasma by calculation 290 mosm/kg 275-300 [facility] Creatinine/Urea nitrogen [Mass Ratio] in Serum or Plasma 6 [facility] Bicarbonate [Moles/volume] in Serum 28 mmol/L 22-29 [facility] Alanine aminotransferase [Enzymatic activity/volume] in Seru m or Plasma 30 U/L <41 [facility] Anion gap 3 in Serum or Plasma 6 mmol/L 8-[address] [facility] Glomerular filtration rate/1.73 sq M pre dicted among non-blacks [Volume Rate/Area] in Serum or Plasma by Creatinine-based formula (MDRD) >[address] [facility] Glomerular filtration rate/1.73 sq M pre dicted among blacks [Volume Rate/Area] in Serum or Plasma by Creatinine-based formula (MDRD) >60 [facility] ID Date Data Source [id number] 07/10/2020 05:42:[address] [facility] Value Range Interpretation Code Description Data Zahraa rce(s) Supporting Document(s) Magnesium [Mass/volume] in Serum or Plasma 1.6 mg/dL 1.6-2.6 [facility] ID Date Data Source [id number] 07/09/2020 06:59:[address] [facility] Value Range Interpretation Code Description Data Zahraa rce(s) Supporting Document(s) Phosphate [Mass/volume] in Serum or Plasma 2.2 mg/dL 2.5-4.5 [facility] ID Date Data Source [id number] 07/09/2020 04:52:[address] [facility] Value Range Interpretation Code Description Data Zahraa rce(s) Supporting Document(s) Glucose [Mass/volume] in Capillary blood by Glucometer 125 mg/dL 70- 140 [facility] ID Date Data Source [id number] 07/09/2020 04:51:[address] [facility] Value Range Interpretation Code Description Data Zahraa rce(s) Supporting Document(s) Phosphate [Mass/volume] in Serum or Plasma 2.2 mg/dL 2.5-4.5 [facility] ID Date Data Source [id number] 07/09/2020 12:28:[address] [facility] Value Range Interpretation Code Description Data Zahraa rce(s) Supporting Document(s) Glucose [Mass/volume] in Capillary blood by Glucometer 122 mg/dL 70- 140 [facility] ID Date Data Source [id number] 07/09/2020 10:54:[address] [facility] Value Range Interpretation Code Description Data Zahraa rce(s) Supporting Document(s) Phosphate [Mass/volume] in Serum or Plasma 2.7 mg/dL 2.5-4.5 [facility] ID Date Data Source [id number] 07/09/2020 09:47:38 [facility] Name Value Range Interpretation Code Description Data Zahraa rce(s) Supporting Document(s) [facility] WGZMIx8yBtGDAfEn44/SGXxsLHAsu6ZaXAggNUe5FLyrOIAnX1OyUIV2uF9lDEG3JDhBCtZhUdFgPKZ4 m [file] ICAgICAgICAgICAgICAgICAgICAgICAgICAgICAgIC DgFLOrWUXgILCkHKClLEGoYVFtTFPwYKTxSEXtCBMjGRPyPPOfYJDxCGWdJUQdBSXzRXAjCSBjPT1HPX AgICAgICAgICAgICAgICAgICAgICAgICAgICAgICAgICAgICAgICAgICAgICAgICAgICAgICAgICAgIC AgICAgICAgICAgICAgICAgICAgICAgICAgICAgICAg HXStOPMxHB0FWFTiNNGrORUrSLXcZBGeZGPrFEOpMMWmHIXkUGKxYLMeEFVnFTJgOSRoPXObPTXaLNBz ZCEbFPTlATKxHWVxXCXqSYHaFCCqGTVeGTCzVDYkCTHbBPImXVUuRRCpHZThMEOaQF6KSNSrECGfVLVo ICAgICAgICAgICAgICAgICAgICAgICAgICAgICAgIC AgICAgICAgICAgICAgICAgICAgICAgICAgICAgICAgICAgICAgICAgICAgICAgICAgICAgICAgICAgIA 0KICAgICAgICAgICAgICAgICAgICAgICAgICAgICAgICAgICAgICAgICAgICAgICAgICAgICAgICAgIC AgICAgICAgICAgICAgICAgICAgICAgICAgICAgICAg LTJeKSMfLAIgHP3WEHTkZGKjUAJfERAsHEImHZLtLPIiOMMfEOTjTBAfVRQnZVDzZDDkCLQjRXJrMSGh XFOjPKUxEWXdMUSyZSVyRTTtWPRxKTTqVCFjCPHlCHIhETTnMCBtSAVnIVGxUPZkOYDhRL1VUGZzUHBx ICAgICAgICAgICAgICAgICAgICAgICAgICAgICAgIC AgICAgICAgICAgICAgICAgICAgICAgICAgICAgICAgICAgICAgICAgICAgICAgICAgICAgICAgICAgIC VqZJ0ZCGOsZLPoZFYyHGQaBQJcZWToKTTpEGWdPKXtTKZlUYQmFUPdRSOnHTHnLIZeSVNvAVOdNQElQD AgICAgICAgICAgICAgICAgICAgICAgICAgICAgICAg IWUpJTDtNTEwQQVsIH8KOFAtHNOvZXGuFGPqLNMxPGVfTDSdDKKfFXYhLLKfXTGyKNZqWLXmEWOiBXPf GDEnBUCeDKUqEUTrWCNzODTvREHkAERnCKBiAYBfAREuMCQvZUGpZDEeZEQnKQLmGKLdAEHtAI1YBTEu ICAgICAgICAgICAgICAgICAgICAgICAgICAgICAgIC AgICAgICAgICAgICAgICAgICAgICAgICAgICAgICAgICAgICAgICAgICAgICAgICAgICAgICAgICAgIC HgTCOoAR8HIH36jGQhe5A8WZLlZC1ggjg/If8KSPkdutGblEDcUR9IQtIuZO7rft9OJcTzWN6mqd6ZHW iKXsWyY3X2qBBjIMMsSAVLBkJlF63qFNebHj21MOuf HLTcIvBcTWf0Gl9MYjJbB6cbSGDjYlD2YVGxTjU9TXAwBcKfRPgqPF1Lo4XxtMXhAGo+Qa0TVZ1lu9Tg WPwsMPQtIK2bzl0GCCwZNyKoC5SzsdV4AZFhETHeRn9BECEjFDGgeXQdFMFfDMTUEzClN5WmyA86SVNA Cj4+ZUtcukVeLxcXEwMiKBRzi3BwXFk1QX1HFWGqPE v6lZPfC78ni5GlfRCxPjpiVjR9sPGmVA9mMSZmw8AeFMJBnAXduTBfFZPbVXXqOJ7eXKRcIYR1RqL1ZS QODA8HWPAfAECftUJdHPEbQKKXFR0IJWpdHRF2JCOlxlNrxLSyUHgyET5TXPDhiuVjGPvuCAAQFXe+Pg 9FIX6rw5YvLHfxWKFkFW6mtt7PTUlKIhVoW5X6jTVl O0N7ZCdlCp9ISNIwWTJaOLfsEZOSPFxtVI7QGX5wrxB5ZS3NjOBpZNPwNSUmqSLeCDk1G47qqBPlIYsm JZ9JVME+Malvin+Ue5OBGFkJAHlROWePiNjQSSLHeVrJ8DkM4QNr4JzA1QvVF87eXtzffHfKMkmRF8OZF4x ERSoPKXTJV0CbOAyvL3txtLuIWGxBWAYHsIbZ59mkV CzYZUjLHD7NEFdFp4BMLFwC3LfojBqbXrixyYwBPPgBTDXEW7KVTsiflOtuQDzxTviOM57bWhtAA4AMi 7GSmMtPX9lxt3UpAPiXj2GNQOhLn8OTGYgGVJnWEMjTFD1DXJlMdPsEFngONNqYMLeFRU8XEVhKTOgVT 6MOyBwTZUfAHn3AnUuJBPlLDJsrr6SOFBgCHGwEWY0 TXJqWQHtYBNvRGiyUAXaUNDrBNP5XNEwSGKhWO6DXuHpWSNkYFQsCoXdWNPiZTWero6LZEZePCPlGuJl VPHrOFYyJDIjEIuxYWNiPIU8XaX7VHNiODUcSZ0DPtCjRJRwZOR3UlRnONIzONPgbh2AGCZaCUTwNKLk WPOuWICyYQQqGAekMJFyMKS4KsQ5KCBoWDCmBT7MHf LfEZMqARB2HXbyCTAmDRJgoy3ANXMqEJZlRcr6AsOcXFYqSEJiTFmoVQGhZHZ1NFT1TRHsBIOtAE1EKg CmUFKtAGczUSffFDMnADHqbu0FJQGiIRRzOXObIlNlMHZkPUMjBPrjTATaCKC8HnD3TNLsPZUlCC3GTe YdLFQtZCc1CKweVZTkOEFzts9RIYYjBYInRPfhWBFi BKAfGERkEZjxHRTqCDFcZfO6IQGsWNPsZR3RDlMhAKAyMWO4UgPmFGJuZUViqf2OLMVvFEAyPJC0BaQz UQKtBZEpKSc2vjGvlTQuLGp2WI6IX8OcuoHqKoJJNn3Nh624VHWmOHLtFi1HC8ifJp1zCKEoVCHWGe7W OGp6BHX4RIS6GTJuWzD9FqF1MgV6VWy2OqRtHXO0Xe hiNWY+PTztLhfsBDT5UxC5JLErOxklUEszBKsqC0B1KBw7QKZ8Et8bIXOTMd4+DQpzdGFydHhyZWYNCj KnMFZ1KNhrORDRUf1H ID Date Data Source [id number] 07/09/2020 07:52:32 AM EST [facility] Name Value Range Interpretation Code Description Data Zahraa rce(s) Supporting Document(s) Glucose [Mass/volume] in Capillary blood by Glucometer 127 mg/dL 70- 140 [facility] ID Date Data Source [id number] 07/09/2020 01:22:41 AM [facility] Name Value Range Interpretation Code Description Data Zahraa rce(s) Supporting Document(s) Leukocytes [#/volume] in Blood by Automated count 3.5 10*3/uL 4-[address] [facility] Erythrocytes [#/volume] in Blood by Automated count 3.37 10*6/uL 4.6- 6.[address] [facility] Hemoglobin [Mass/volume] in Blood 10.5 g/dL 13.5-[address] [facility] Hematocrit [Volume Fraction] of Blood by Automated count 31.3 % 4 1-[address] [facility] Erythrocyte mean corpuscular volume [Entitic volume] by Auto mated count 92.9 fL 80-96 [facility] Erythrocyte mean corpuscular hemoglobin [Entitic mass] by Automated count 31.3 pg 27-33 [facility] Erythrocyte mean corpuscular hemoglobin concentration [Mass/volume] by Automated count 33.7 g/dL 32.0-36.0 [facility] width [Ratio] by Automated count 13.9 % 11.5-14.5 [facility] Platelets [#/volume] in Blood by Automated count 60 10*3/uL 150-[address] [facility] Differential cell count method - Blood [facility] Neutrophils/100 leukocytes in Blood by Automated count 52 % [facility] Lymphocytes/100 leukocytes in Blood by Automated count 35 % [facility] Monocytes/100 leukocytes in Blood by Automated count 9 % [facility] Eosinophils/100 leukocytes in Blood by Automated count 3 % [facility] Basophils/100 leukocytes in Blood by Automated count 1 % [facility] Neutrophils [#/volume] in Blood by Automated count 1.83 10*3/uL 1.8-[address] [facility] Lymphocytes [#/volume] in Blood by Automated count 1.21 10*3/uL 1.2-[address] [facility] Monocytes [#/volume] in Blood by Automated count 0.30 10*3/uL 0-0.8 [facility] Eosinophils [#/volume] in Blood by Automated count 0.11 10*3/uL 0-0.5 [facility] Basophils [#/volume] in Blood by Automated count 0.02 10*3/uL 0-0.2 [facility] Nucleated erythrocytes/100 leukocytes [Ratio] in Blood by Automated count 0 /100{WBCs} 0-0 [facility] ID Date Data Source [id number] 07/09/2020 02:34:04 AM EST [facility] Name Value Range Interpretation Code Description Data Zahraa rce(s) Supporting Document(s) Albumin [Mass/volume] in Serum or Plasma by Bromocresol green (BCG) dye binding method 3.4 g/dL 3.5[facility]2 [facility] Bil[facility].total [Mass/volume] in Serum or Plasma 0.4 mg/dL <1.2 [facility] Calcium [Mass/volume] in Serum or Plasma 7.6 mg/dL 8.6-10.0 [facility] Chloride [Moles/volume] in Serum or Plasma 103 mmol/L 98-107 [facility] Creatinine [Mass/volume] in Serum or Plasma 0.78 mg/dL 0.70-1.20 [facility] Glucose [Mass/volume] in Serum or Plasma 134 mg/dL 70-140 [facility] Alkaline phosphatase [Enzymatic activity/volume] in Serum or Plasma 51 U/L 40-129 [facility] Potassium [Moles/volume] in Serum or Plasma 3.1 mmol/L 3.4-5.[address] [facility] Protein [Mass/volume] in Serum or Plasma 5.2 g/dL 6.4-8.[address] [facility] Sodium [Moles/volume] in Serum or Plasma 138 mmol/L 136-145 [facility] Aspartate aminotransferase [Enzymatic activity/volume] in Serum or Plasma 36 U/L <40 [facility] Urea nitrogen [Mass/volume] in Serum or Plasma 8 mg/dL 6-20 [facility] Osmolality of Serum or Plasma by calculation 287 mosm/kg 275-300 [facility] Creatinine/Urea nitrogen [Mass Ratio] in Serum or Plasma 10 [facility] Bicarbonate [Moles/volume] in Serum 25 mmol/L 22-29 [facility] Alanine aminotransferase [Enzymatic activity/volume] in Seru m or Plasma 27 U/L <41 [facility] Anion gap 3 in Serum or Plasma 10 mmol/L 8-15 [facility] Glomerular filtration rate/1.73 sq M pre dicted among non-blacks [Volume Rate/Area] in Serum or Plasma by Creatinine-based formula (MDRD) >[address] [facility] Glomerular filtration rate/1.73 sq M pre dicted among blacks [Volume Rate/Area] in Serum or Plasma by Creatinine-based formula (MDRD) >60 [facility] ID Date Data Source [id number] 07/09/2020 02:34:[address] [facility] Value Range Interpretation Code Description Data Zahraa rce(s) Supporting Document(s) Phosphate [Mass/volume] in Serum or Plasma 2.6 mg/dL 2.5-4.5 [facility] ID Date Data Source [id number] 07/09/2020 04:17:[address] [facility] Value Range Interpretation Code Description Data Zahraa rce(s) Supporting Document(s) Magnesium [Mass/volume] in Serum or Plasma 1.4 mg/dL 1.6-2.6 [facility] ID Date Data Source [id number] 07/08/2020 09:26:[address] [facility] Value Range Interpretation Code Description Data Zahraa rce(s) Supporting Document(s) Glucose [Mass/volume] in Capillary blood by Glucometer 121 mg/dL 70- 140 [facility] ID Date Data Source [id number] 07/08/2020 05:00:[address] [facility] Value Range Interpretation Code Description Data Zahraa rce(s) Supporting Document(s) Glucose [Mass/volume] in Capillary blood by Glucometer 115 mg/dL 70- 140 [facility] ID Date Data Source [id number] 07/08/2020 12:51:[address] [facility] Value Range Interpretation Code Description Data Zahraa rce(s) Supporting Document(s) Glucose [Mass/volume] in Capillary blood by Glucometer 126 mg/dL 70- 140 [facility] ID Date Data Source [id number] 07/08/2020 11:08:[address] [facility] Value Range Interpretation Code Description Data Zahraa rce(s) Supporting Document(s) Phosphate [Mass/volume] in Serum or Plasma 1.7 mg/dL 2.5-4.5 [facility] ID Date Data Source [id number] 07/08/2020 09:18:52 AM EST [facility] Name Value Range Interpretation Code Description Data Zahraa rce(s) Supporting Document(s) [facility] BEERZx7gJuEWRnQdy6ElRkDoDPBqMK4axgm2A4T9lMVkA0ZtdMQsp4ttC1MdL3ArYOKzJXSWZU5RlHIi jb2 [file] [employer]+wF7ikKtWo/NovHAqm92R1m8Z9X+S2XN4qLM7xOt DdM8vj8o1jO/G2aS6fe1sOFSpGWAv1nfkjh3xeFyd55CwJ+kZ3/L44AIQ1EHvqK74p2UtckwZHWy7ukT iXuh059meXn+uP+miguel/7E9IylkfpuFedQv0x8VS/3A5ghNvEqjvpw6h+3kcs2sQjAR8uHNlHsAsiMbNSj [file] n4VnAUBjGSOPIi4+HlT8XDK2wGSeRry9BBz3NSeyOXWFQk== ID Date Data Source [id number] 07/08/2020 08:46:36 AM [facility] Name Value Range Interpretation Code Description Data Zahraa rce(s) Supporting Document(s) Glucose [Mass/volume] in Capillary blood by Glucometer 116 mg/dL 70- 140 [facility] ID Date Data Source [id number] 07/08/2020 03:18:38 AM [facility] Name Value Range Interpretation Code Description Data Zahraa rce(s) Supporting Document(s) Leukocytes [#/volume] in Blood by Automated count 4.0 10*3/uL 4-10 [facility] Erythrocytes [#/volume] in Blood by Automated count 3.34 10*6/uL 4.6- 6.[address] [facility] Hemoglobin [Mass/volume] in Blood 10.4 g/dL 13.5-[address] [facility] Hematocrit [Volume Fraction] of Blood by Automated count 31.0 % 4 1-[address] [facility] Erythrocyte mean corpuscular volume [Entitic volume] by Auto mated count 92.9 fL 80-96 [facility] Erythrocyte mean corpuscular hemoglobin [Entitic mass] by Automated count 31.2 pg 27-33 [facility] Erythrocyte mean corpuscular hemoglobin concentration [Mass/volume] by Automated count 33.6 g/dL 32.0-[facility].0 [facility] width [Ratio] by Automated count 14.2 % 11.5-14.5 [facility] Platelets [#/volume] in Blood by Automated count 68 10*3/uL 150-[address] [facility] Differential cell count method - Blood [facility] Neutrophils/100 leukocytes in Blood by Automated count 57 % [facility] Lymphocytes/100 leukocytes in Blood by Automated count 31 % [facility] Monocytes/100 leukocytes in Blood by Automated count 8 % [facility] Eosinophils/100 leukocytes in Blood by Automated count 4 % [facility] Basophils/100 leukocytes in Blood by Automated count 0 % [facility] Neutrophils [#/volume] in Blood by Automated count 2.24 10*3/uL 1.8-[address] [facility] Lymphocytes [#/volume] in Blood by Automated count 1.25 10*3/uL 1.2-[address] [facility] Monocytes [#/volume] in Blood by Automated count 0.32 10*3/uL 0-0.8 [facility] Eosinophils [#/volume] in Blood by Automated count 0.16 10*3/uL 0-0.5 [facility] Basophils [#/volume] in Blood by Automated count 0.01 10*3/uL 0-0.2 [facility] Nucleated erythrocytes/100 leukocytes [Ratio] in Blood by Automated count 0 /100{WBCs} 0-0 [facility] ID Date Data Source [id number] 07/08/2020 03:42:20 AM [facility] Name Value Range Interpretation Code Description Data Zahraa rce(s) Supporting Document(s) Albumin [Mass/volume] in Serum or Plasma by Bromocresol green (BCG) dye binding method 3.4 g/dL 3.5-5.2 L [facility] Bilirubin.total [Mass/volume] in Serum or Plasma 0.5 mg/dL <1.2 [facility] Calcium [Mass/volume] in Serum or Plasma 6.9 mg/dL 8.6-10.[address] [facility] Chloride [Moles/volume] in Serum or Plasma 102 mmol/L 98-107 [facility] Creatinine [Mass/volume] in Serum or Plasma 0.83 mg/dL 0.70-1.20 [facility] Glucose [Mass/volume] in Serum or Plasma 107 mg/dL 70-140 [facility] Alkaline phosphatase [Enzymatic activity/volume] in Serum or Plasma 52 U/L 40-129 [facility] Potassium [Moles/volume] in Serum or Plasma 3.4 mmol/L 3.4-5.1 [facility] Protein [Mass/volume] in Serum or Plasma 5.2 g/dL 6.4-8.[address] [facility] Sodium [Moles/volume] in Serum or Plasma 137 mmol/L 136-145 [facility] Aspartate aminotransferase [Enzymatic activity/volume] in Serum or Plasma 37 U/L <40 [facility] Urea nitrogen [Mass/volume] in Serum or Plasma 12 mg/dL 6-20 [facility] Osmolality of Serum or Plasma by calculation 284 mosm/kg 275-300 [facility] Creatinine/Urea nitrogen [Mass Ratio] in Serum or Plasma 14 [facility] Bicarbonate [Moles/volume] in Serum 28 mmol/L 22-29 [facility] Alanine aminotransferase [Enzymatic activity/volume] in Seru m or Plasma 22 U/L <41 [facility] Anion gap 3 in Serum or Plasma 7 mmol/L 8-[address] [facility] Glomerular filtration rate/1.73 sq M pre dicted among non-blacks [Volume Rate/Area] in Serum or Plasma by Creatinine-based formula (MDRD) >[address] [facility] Glomerular filtration rate/1.73 sq M pre dicted among blacks [Volume Rate/Area] in Serum or Plasma by Creatinine-based formula (MDRD) >60 [facility] ID Date Data Source [id number] 07/08/2020 03:42:20 AM [facility] Name Value Range Interpretation Code Description Data Zahraa rce(s) Supporting Document(s) Phosphate [Mass/volume] in Serum or Plasma 1.6 mg/dL 2.5-4.5 [facility] ID Date Data Source [id number] 07/08/2020 08:17:[address] [facility] Value Range Interpretation Code Description Data Zahraa rce(s) Supporting Document(s) Magnesium [Mass/volume] in Serum or Plasma 1.6 mg/dL 1.6-2.6 [facility] ID Date Data Source [id number] 07/07/2020 09:59:[address] [facility] Value Range Interpretation Code Description Data Zahraa rce(s) Supporting Document(s) Glucose [Mass/volume] in Capillary blood by Glucometer 185 mg/dL 70- [address] [facility] ID Date Data Source [id number] 07/07/2020 07:24:[address] [facility] Value Range Interpretation Code Description Data Zahraa rce(s) Supporting Document(s) Leukocytes [#/volume] in Blood by Automated count 4.9 10*3/uL 4-10 [facility] Erythrocytes [#/volume] in Blood by Automated count 3.39 10*6/uL 4.6- 6.[address] [facility] Hemoglobin [Mass/volume] in Blood 10.7 g/dL 13.5-[address] [facility] Hematocrit [Volume Fraction] of Blood by Automated count 31.4 % 4 1-[address] [facility] Erythrocyte mean corpuscular volume [Entitic volume] by Auto mated count 92.7 fL 80-96 [facility] Erythrocyte mean corpuscular hemoglobin [Entitic mass] by Automated count 31.7 pg 27-33 [facility] Erythrocyte mean corpuscular hemoglobin concentration [Mass/volume] by Automated count 34.2 g/dL 32.0-36.0 [facility] E[facility] distribution width [Ratio] by Automated count 14.6 % 11.5-14.[address] [facility] Platelets [#/volume] in Blood by Automated count 71 10*3/uL 150-[address] [facility] Differential cell count method - Blood [facility] Neutrophils/100 leukocytes in Blood by Automated count 64 % [facility] Lymphocytes/100 leukocytes in Blood by Automated count 24 % [facility] Monocytes/100 leukocytes in Blood by Automated count 8 % [facility] Eosinophils/100 leukocytes in Blood by Automated count 4 % [facility] Basophils/100 leukocytes in Blood by Automated count 0 % [facility] Neutrophils [#/volume] in Blood by Automated count 3.10 10*3/uL 1.8-[address] [facility] Lymphocytes [#/volume] in Blood by Automated count 1.19 10*3/uL 1.2-[address] [facility] Monocytes [#/volume] in Blood by Automated count 0.38 10*3/uL 0-0.8 [facility] Eosinophils [#/volume] in Blood by Automated count 0.18 10*3/uL 0-0.5 [facility] Basophils [#/volume] in Blood by Automated count 0.02 10*3/uL 0-0.2 [facility] Nucleated erythrocytes/100 leukocytes [Ratio] in Blood by Automated count 0 /100{WBCs} 0-0 [facility] ID Date Data Source [id number] 07/07/2020 07:55:59 PM [facility] Name Value Range Interpretation Code Description Data Zahraa rce(s) Supporting Document(s) Phosphate [Mass/volume] in Serum or Plasma 1.0 mg/dL 2.5-4.5 [facility] ID Date Data Source [id number] 07/07/2020 06:18:48 PM [facility] Name Value Range Interpretation Code Description Data Zahraa rce(s) Supporting Document(s) Magnesium [Mass/volume] in Serum or Plasma 1.7 mg/dL 1.6-2.6 [facility] ID Date Data Source [id number] 07/07/2020 06:18:[address] [facility] Value Range Interpretation Code Description Data Zahraa rce(s) Supporting Document(s) Phosphate [Mass/volume] in Serum or Plasma 1.4 mg/dL 2.5-4.[address] [facility] ID Date Data Source [id number] 07/07/2020 05:59:50 PM [facility] Name Value Range Interpretation Code Description Data Zahraa rce(s) Supporting Document(s) Glucose [Mass/volume] in Capillary blood by Glucometer 127 mg/dL 70- 140 [facility] ID Date Data Source [id number] 07/07/2020 04:49:10 PM [facility] Name Value Range Interpretation Code Description Data Zahraa rce(s) Supporting Document(s) [facility] HTVSXb1uZnDAPxAi30/PNQfpPRXwj6NrMDnaAJa6KOhpFLBlY1OxDJT7jV6mPJH6DIzNKnInQtLiIMB8 lbm [file] ICAgICAgICAgICAgICAgICAgICAgICAgICAgICAgIC SmBSOtMLAzUSDkXMSwRSFoXPNvZOOqMJZjYVLdILWsFFQdNYHuXFIqIFCdPHIvVTXeISYpNB4LGMZaED AgICAgICAgICAgICAgICAgICAgICAgICAgICAgICAgICAgICAgICAgICAgICAgICAgICAgICAgICAgIC AgICAgICAgICAgICAgICAgICAgICAgICAgICAgICAg QZVpKL0YFVBsXLPkGAXbUYOwEESbLVCkTKYlRICeAPGcEYTdBDTyUCGgYTVtZTSeAGBdYVSgGVGeBGJl TCVsUEMjAUTrNAPkOCOxTHTxGRRqUEBvBVWdWQGtGDTpWFNvEWQvXSFxRAZyUN3KLIYnOORuIVXfGUGj ICAgICAgICAgICAgICAgICAgICAgICAgICAgICAgIC GxZXIkTEYaAPRwCHGaVGAnWKIcGILjKNFdUSWpXUVoPOGyMINoETCaZOZkKOMyGWQhUAWySWGuPZ5IZQ AgICAgICAgICAgICAgICAgICAgICAgICAgICAgICAgICAgICAgICAgICAgICAgICAgICAgICAgICAgIC AgICAgICAgICAgICAgICAgICAgICAgICAgICAgICAg KQEmNDTzYL9USZAkLZBlODCbTRSuQWBtCKAfBFQcLILoYFZxMPUmPCNbWNAeCMYvYMAmKCBeHOOoHNBo QYUqERHlXQNkQVLqZQFaMBZzUFBoRPYeXWIpGKSzAKWoQDThLAGcAACsJDMuJHDxTZ9AQOMfBHFyWKPu ICAgICAgICAgICAgICAgICAgICAgICAgICAgICAgIC AgICAgICAgICAgICAgICAgICAgICAgICAgICAgICAgICAgICAgICAgICAgICAgICAgICAgICAgICAgIA 0KICAgICAgICAgICAgICAgICAgICAgICAgICAgICAgICAgICAgICAgICAgICAgICAgICAgICAgICAgIC AgICAgICAgICAgICAgICAgICAgICAgICAgICAgICAg TOLlAHVlWYDfYN4DSDDaCCSqQTKmTXPbCHUcCQKbJZVuYUUkEYQbLZLsIRTeENTdYHDmVNYhKQCePMEd QMDyQLAaXYXhAWHgBHEvAOMuOAMjMZUyXFOrSNDsMTPeIVKaPJGjHFRpDQOzVATbABXyOG5SYZLfWSAn ICAgICAgICAgICAgICAgICAgICAgICAgICAgICAgIC AgICAgICAgICAgICAgICAgICAgICAgICAgICAgICAgICAgICAgICAgICAgICAgICAgICAgICAgICAgIC DtKH0VQM18fYQbo3E4AUWoCS6avvl/Qf3FVLgjjiGurLOcPU2PGdMvZG2gyc8AGxLiWC3dsh2GSDtKUk UnU8C9yYQvFJApELJDXzUzV82iJQksPf54KPesHOEm EbEtTOg1Qe9RNrUfR7btMGVnLoZ9ZELlHnA6XOTqMwN5RVHtXyFqSCYwWFGgKJMgLYLDRUS4QWCuBjIe OJxfQU8Cs2FjfXO5HYm+Ld5UMY3na1DvJNgoJUQuAB3ztx1AVKsLIhDyZ7SsvtR2ZYPaJJTrZm1VYJDo TQJrxTMfQXKiQGNRUnQuK3OcjL80CLEJHk7+DQplbm RiMrzPCvXeKHKjp2FzSUw4MX8ZMSAdOAu3oUFlU90dx3GsdXTsVwzpYTUtzXjkxvHZGMKvS9OokcRuTE vVW1hsAQYlPTBoBw9zSLUfOQR4AyV1VRNKIP3XVXCwAPKveBGvJVZrQTJWWC4AVMacMME0NJWcvmQkyI AgMKtwKY8GUGMvvpXmXnbrLOHBEFy+Sx6XOD5hu5Cx HKdvAQLxFX2pxq3TLMpKWjGlJ3N2kRUvW4X9JIpdWv0GYGZbULSgCjpfOSHAAIagTO0NGE3ceuK4XQ9R rOPkQESzWNXbmNLnPAx0R03fwMKhPQtmPK2GJSJ+Malvin+Ck0OIVZhJOVkAVYxZoAkAVJTXrZeN1LvR2II v0AmG0YvBD46kErmpmSpDPwvVN7WPE5sCQHuHSKVIZ 9BmQCerQ6oiwQwNUIeXGYIZeOnF47miLJfRDVwFUT2YKZrHj4MFKNyW8PnqrGieIgihiLlEOSqXVXVPH 3SWLswatUquZLqoUscJD77lJaxIM4TLx1WYnKmMQ7vjx2IcWDbQq2OUJUqEd5LFJBjIOIwAUCuVLS6EG KeAnYfQBouUBXyVDIyWEP4EXNrITVzTE0ABvYjPBSr VuV2KSjkQNIkMJIult0IZEYyTZHsQhWnKFGeABDrSHYlKYzbTEQuMFUmWFI9GZIbZNRpLK0WLmQeDRQj IVJ9QPorDRPwTXXgyl7PDSJxJGCsNdmkNyWfPNWgQVBmAEzlEYRaRUJ8Lyh5IIXrVRDrIL9TXoRcGYKt FTE0KdcvJRXtXMJcjw2RDKSdGLZlGZEhNmObPTQmBV BnLOgtIKDrIBKbOpLiUDPxHCMyLW0ZDnQwHZMpLQU9EwbqGQXtQHKwwx4UCMKkFTBsYuK9MCUfYOMeOF ZuSWrkDRKfOBB1LFubBTVjMQVwQE3RLoIzJQJgHTgyJYnnWLMuWURaba6UZKCwALVrJSVcSQSdKMTiUB OlAMgcREZxBKN0ZMI0HEKeZDFeLM8WQeOaYLVoPuP7 DdLeRURvOZVygw7ZTWIuPYJgYWh1QXEgCKTkOWFdGJdkQZEhVTXkFVC6PEEsZCFyRX1JOaNxOHWoJzQk ZDLvDAMhMSIbxs6YIFFjOVYyBaTrPZZaEWChCEWaPZtiHGQjQBJjMKEjKIZbNRChOT2JKuXxCZGnMcB7 OmWmFARtJJAtyg2ZGOAdYARpCYR1FHUpWGOrHZGiRE ftEOEqKUM9DZoxKVQbKFRaFE8CHsQxPFRmUlM4TyVlMKVcCNOqkv9PAJKdBQXjAXn4ZrRqPIXqJVRvHY mlRVViOMF3Mmt4HXPvABAjKB9RUuLgOWHuXuA4BAevKGZyGIJenk2FKNQfKWHrKbtyVCJjDKEnQMStYG qoFTKtSQM1SEF8CARsJCVnHV2MDjNtGZavIKALPop1 JOobR8p2GEJeQk0UL8Jsh7DbXsShUNJUOBchHX9ebkDtKIZoLv2MU8yGCuy5V3Q9XPH5CBCjC1S7HByl SYNuMPPdGBFoIMJqR8V2SI9nDXz0NkLrMQNfXfK8CJF5GdA9OjTlEJX4NyGkPcUgMck4UbTvTB3AEp2D PsR4XHU8dQVaVz4TRhxrYQSJApSdWK1XCLk= ID Date Data Source [id number] 07/07/2020 12:30:[address] [facility] Value Range Interpretation Code Description Data Zahraa rce(s) Supporting Document(s) Glucose [Mass/volume] in Capillary blood by Glucometer 124 mg/dL 70- 140 [facility] ID Date Data Source [id number] 07/07/2020 12:30:[address] [facility] Value Range Interpretation Code Description Data Zahraa rce(s) Supporting Document(s) Glucose [Mass/volume] in Capillary blood by Glucometer 11 mg/dL 70- 140 [facility] ID Date Data Source [id number] 07/07/2020 10:22:[address] [facility] Value Range Interpretation Code Description Data Zahraa rce(s) Supporting Document(s) Potassium [Moles/volume] in Serum or Plasma 3.5 mmol/L 3.4-5.1 [facility] ID Date Data Source [id number] 07/07/2020 10:22:07 AM [facility] Name Value Range Interpretation Code Description Data Zahraa rce(s) Supporting Document(s) Phosphate [Mass/volume] in Serum or Plasma 0.9 mg/dL 2.5-4.5 [facility] Results called to and read back by PRASAD CAPONE RN [id number] ID Date Data Source [id number] 07/07/2020 08:24:21 AM [facility] Name Value Range Interpretation Code Description Data Zahraa rce(s) Supporting Document(s) Glucose [Mass/volume] in Capillary blood by Glucometer 126 mg/dL 70- 140 [facility] ID Date Data Source [id number] 07/07/2020 08:05:[address] [facility] Value Range Interpretation Code Description Data Zahraa rce(s) Supporting Document(s) [facility] CIIIAk3fNdKHXqKm59/HXJlzUHTst3QwQRzqRKz5NEtsKXPcL4HvDTY1sX1vBMF3PUxDLuPeKyKxFGI4 lbm [file] ICAgICAgICAgICAgICAgICAgICAgICAgICAgICAgICAgICAgICAgICAgICAgICAgICAgICAgICAgICAg ICAgICAgICAgICAgICAgICAgICAgICAgICAgICAgICAgICANCiAgICAgICAgICAgICAgICAgICAgICAg ICAgICAgICAgICAgICAgICAgICAgICAgICAgICAgIC AgICAgICAgICAgICAgICAgICAgICAgICAgICAgICAgICAgICAgICAgICAgICANCiAgICAgICAgICAgIC AgICAgICAgICAgICAgICAgICAgICAgICAgICAgICAgICAgICAgICAgICAgICAgICAgICAgICAgICAgIC AgICAgICAgICAgICAgICAgICAgICAgICAgICANCiAg ICAgICAgICAgICAgICAgICAgICAgICAgICAgICAgICAgICAgICAgICAgICAgICAgICAgICAgICAgICAg ICAgICAgICAgICAgICAgICAgICAgICAgICAgICAgICAgICAgICANCiAgICAgICAgICAgICAgICAgICAg ICAgICAgICAgICAgICAgICAgICAgICAgICAgICAgIC AgICAgICAgICAgICAgICAgICAgICAgICAgICAgICAgICAgICAgICAgICAgICAgICANCiAgICAgICAgIC AgICAgICAgICAgICAgICAgICAgICAgICAgICAgICAgICAgICAgICAgICAgICAgICAgICAgICAgICAgIC AgICAgICAgICAgICAgICAgICAgICAgICAgICAgICAN CiAgICAgICAgICAgICAgICAgICAgICAgICAgICAgICAgICAgICAgICAgICAgICAgICAgICAgICAgICAg ICAgICAgICAgICAgICAgICAgICAgICAgICAgICAgICAgICAgICAgICANCiAgICAgICAgICAgICAgICAg ICAgICAgICAgICAgICAgICAgICAgICAgICAgICAgIC AgICAgICAgICAgICAgICAgICAgICAgICAgICAgICAgICAgICAgICAgICAgICAgICAgICANCiAgICAgIC AgICAgICAgICAgICAgICAgICAgICAgICAgICAgICAgICAgICAgICAgICAgICAgICAgICAgICAgICAgIC AgICAgICAgICAgICAgICAgICAgICAgICAgICAgICAg ICANCiAgICAgICAgICAgICAgICAgICAgICAgICAgICAgICAgICAgICAgICAgICAgICAgICAgICAgICAg ICAgICAgICAgICAgICAgICAgICAgICAgICAgICAgICAgICAgICAgICAgICANCjw/qUCnS8kkyWNqwfH7 P3zjFn0VYw5FUG9kd3UzRMEfYGhvayBiLiuLJdKoAX CqMfhHGdt9ITzkSR5YmFWnI4TyT3UjGZtmVL7XCDKqZSPneTTrGLJpCWKsIyV7WWUnVAxeUC4OeQHuKJ jpEPJzCIWrPbMhQXNvRZIuZNNoHEUzOCZVAVSsRXHkLeGpPEkjPT6Ue9VsfNX3BBn+Rr7LAU0ec2GqZO zqUsDcUW1fmn6ZBGsGQsFfU6ZnqfB5ZCT3LGAgUg0H UMJxKSNehORdIMYoTZNTCdZrV8BgkY30VKRYHh8+TWgikzTbHavIKdT0DEFmo8TrBRw8BV1HNVLtINo6 xJUaC87eu5JnkMBxWxfhKHXknAXtfHOXVMNirP1nyOvbIN6MLcTcDNVxBARlNJ3xEKBcJEM8DiG6KTQP ZW1BTJUxRTRsgVMwHHBqHIJPYE7GKRzjKNK3XWJile TzpWKeRBksML4AOISuqeRnZoZeWNJVHLu+Ck7DCC5xv6CwJDzcDGSgIK7hip9EKMzJEbIoK3V1sKCvB2 J8BXhbAj2HEEQjPUDdJbPyTVSOFFyvTP7OCM6bsaO3FR2QkOWuZEEoWGNadUEmNSj0B93gsYTuEAvgOD 0KICA+Malvin+Kp6QDEPsJOQfPQNrWhLvPNTMJsUrC4Ui D2VBs2NnT7QuRC81oDfkzeZfTOzsHO5HSP4nVUPnBRPLCP0KaARonZ9cawJvNaWfKPCPVzSaB27gdSZt QJJzYRUgCSWkDo6AVCBbI7IcqvXseHuraoWqSVLlYPGOYC5FPFgrirXvzZEonSdeWA20uTyjSH3DOi0K JzRvWY2tpb7VtDIoVt4TLTUrFe6GYPAoWZWwHCDvQT K5YYCmZoRiVJyiCDGmCIMySMJ8HARnDZAzNJ0UBeAjACXjFrO9SmQrWUHqBNLplg2IIVGbUCOmDIYsUr CeEKXeMVUyQWlsXKYeCPTaMGZ7RTKnDDQqGK5AHlNeLAYcSCM3GHAfHGFeYGPduv8TDAUlJMIrWHEwIA GaWFEfZSMyLYkaAVLcBUS3NPt6DZWdTZRvCA8VVwWj WCSjAMajYIuxGNVoMFXdoc5ZOVLaAVYiMVakNuDhADWkUUEaJOhnWPGpEBHyILA5NROxMSSdQP4RYeXn RSZaHREhUCDgRNJcHEUrfl7ZDLLyIYGeMMNuVVEyLXAiIUHbQMmdOQFxEHZ4FwUjAYVsNHUdSW9KXwWw WZVyMAz2OPtnKCDnFSGdgi3WFMQxSUYnCUr2PaJoAN YnPWCtNKylYYViOONiQVn6XTWpQKSrTG5FDiBxUDMqHxRaMXhsPOInZTVqss5VMKChTEQmPQMkErLzVY HbWIQlREvaCVPbVIRmONO3PDWeVNFuGY7KSuOvGGAeOwM5APLjOMCtKWKanb3EIFVzDHOeOrZ6HrOqJB IyUOFrRTivTDExNBMdQmNhAVKrQPLgKK7MNzIkSNYe SoQ3BWLyPDYfIEUgmj8OJVSqJIDcCSOkUQCoHVDyWVWcXYasPQXyNYH2AdV9EMOpPGNeAW5RAtEiYNCt CwH5JFjfUVEuQXAvqf6IWUFdTHDjDQV1BvFdMBFwYUFtRVnfPVRvZSE5DeOeXJCwTSHtJI7YJaFxHKPw LbGoOJkvYZNmPIIfgg6MWDYnJBCvLqG0FVTtKDKqXB IuWTqoWHFzCAP0SPBeLOQuCPCoFS3CGcMdPFJhIzM7LYLeZZVaJCNeyw6VMLNnQVZiFBW9JEQlXBUhVP OpFNbrDHHnZOS8SBLtLYMiZMEoXX4HHnYrRFHqEkc0EtsyLNMyMMSwzl9KsJWyhVxuip2AIDzRTa0YeP hmLST6DSzbIj9bkFXoTGUyBGCGZa0ScxEgSOGqEAWS TQmrDDNmVAHlNMF8KDLdInUlYcH8ThRuTANvXJg2WvP3FRMlEDKkYnB0HTLjFVgxRkU6EOI5JEXkAUKm CpPzBiHyAQH5JQJaZBC+PI4nVTk+Dc4Hu8EfbqS8kcYzBIkvHPyoHu6HZRCHG9CEPf== ID Date Data Source [id number] 07/07/2020 08:05:32 AM [facility] Name Value Range Interpretation Code Description Data [facility] Supporting Document(s) History and Physical [facility] FPJHGy0hAiUMTeZx34/BEDgvQHCbz4EzTTapCMu3JDinYRUcM7XwCJM5qH4eLCK9QVcCWwYrMfOjUKM6 lbm [file] AgICAgICAgICAgICAgICAgICAgICAgICAgICAgICAgICAgICAgICAgICAgICAgICAgICAgICAgICAgIC AgICAgICAgICAgICAgDQogICAgICAgICAgICAgICAg ICAgICAgICAgICAgICAgICAgICAgICAgICAgICAgICAgICAgICAgICAgICAgICAgICAgICAgICAgICAg ICAgICAgICAgICAgICAgICAgICAgICAgDQogICAgICAgICAgICAgICAgICAgICAgICAgICAgICAgICAg ICAgICAgICAgICAgICAgICAgICAgICAgICAgICAgIC AgICAgICAgICAgICAgICAgICAgICAgICAgICAgICAgICAgDQogICAgICAgICAgICAgICAgICAgICAgIC AgICAgICAgICAgICAgICAgICAgICAgICAgICAgICAgICAgICAgICAgICAgICAgICAgICAgICAgICAgIC AgICAgICAgICAgICAgICAgDQogICAgICAgICAgICAg ICAgICAgICAgICAgICAgICAgICAgICAgICAgICAgICAgICAgICAgICAgICAgICAgICAgICAgICAgICAg ICAgICAgICAgICAgICAgICAgICAgICAgICAgDQogICAgICAgICAgICAgICAgICAgICAgICAgICAgICAg ICAgICAgICAgICAgICAgICAgICAgICAgICAgICAgIC AgICAgICAgICAgICAgICAgICAgICAgICAgICAgICAgICAgICAgDQogICAgICAgICAgICAgICAgICAgIC AgICAgICAgICAgICAgICAgICAgICAgICAgICAgICAgICAgICAgICAgICAgICAgICAgICAgICAgICAgIC AgICAgICAgICAgICAgICAgICAgDQogICAgICAgICAg ICAgICAgICAgICAgICAgICAgICAgICAgICAgICAgICAgICAgICAgICAgICAgICAgICAgICAgICAgICAg ICAgICAgICAgICAgICAgICAgICAgICAgICAgICAgDQogICAgICAgICAgICAgICAgICAgICAgICAgICAg ICAgICAgICAgICAgICAgICAgICAgICAgICAgICAgIC AgICAgICAgICAgICAgICAgICAgICAgICAgICAgICAgICAgICAgICAgDQogICAgICAgICAgICAgICAgIC AgICAgICAgICAgICAgICAgICAgICAgICAgICAgICAgICAgICAgICAgICAgICAgICAgICAgICAgICAgIC FkLOMfWQLkFXAnHOSuTLMcKIRoEPWnTCf1U8cvJTPs LDVyVY5dFPf6Hx1+LLwGCsDjHXL6ctYqiZ3KNV0wh9LmEFjrUIXqe6LpHNc9YB0JEAEbNFzeNZ0SYIfj zs6JVJKnDTXbnCHQe2epGlKbDLE0CZPzImgaIJ5PLIIkN0pituLhQPEuWDHIQNaxYBZGSK3XHkAyU0Cq jP62YQSSGv8+CRhocmUmEfvEKzB2EAUef3GgYOp4SS 0THMIpXmihe6AgAodiMUXPSRftQR1YHLX8GBC4BHVtRk7BLNNzC998fzBlAC6MOo4IWfLyKA1drt4JTa slPBJjGceGYge6VVooWN1RyIBrQVaXBfZzBpgyVCJdePHzhMNHZGPqfY7qpAppBA3MSqPpJLDgASDyVH 5iAHJeKDOeWjXcCWWHHU3VFIEtAXKmgKPtUUZmAHCP LO2HTSydUKW8TYXfhvVbsPPhCKoyHW3KFUImdcWpJbllEYQMJPr+Uw1OPC5ow1MeAFdtZNQfRU2orw8M STuFEzOvP9N4qGKoV3O5TAzaSx6SENRwMQYjIeHaNCDDTNkuUX3PHW8zaqA7RG9KhRIxUETvNWLobJUi ATr7C02thZImEAkeEZ7VVYQ+Malvin+Gw1OBAKhLJLdYT IlMlMeMGJIXqSvO9DuQ3PXk0DiK2MnCA54fZefxlRbTBgtNC2SWD7nJLEaTEAQTV4VuGStxY2ryaXhEk CvUTVUJdFwH68dfBVdHESzZUG5DICoPy2XRMYjU1EszpPhbZsuhkCtZWNbIFCIWW7EVYwycdPbeREskV xkCD25wYsaGY9KMk2ATuJgWC7ahm2BuAMwWo8LQIYk NX5TLKGlSSCvQQUrVXQ3KVYsOsXtJAaxOXGzNYWbKCU8BOKfFNMrOC8OItSwLBKiXhOpVHXhTYPjKPKz ox2OPMVvXBTfOfZ0PvUyKYFiWVJbVCgnWLLrYWTeQZX0SMPqTNGpBU1BMcSjZQNiCXAgLXZuPCTeZSZe ef6GEAQcEOJwEoY3VeJcIPKaOCIrAFemARVkWOR1KK z7RFTzQMWlPO1NIkJdEBDcQZN1WNkwUCTdZNVmte7XUPRzQYUbAeX4PtFmMIUxGWEaYAntTETpZOG4NE MwAQVcCKHsON2KJfAmWNEePJyhUuDdQYBhIOEjpw0APCAoRINaNKs0FtIrCRQnFNXqXQrbCWOeCPV9YW g4ROOcEVDrSO5NXdTgQYVqTHwzAuXpXPPyLSJxoz2I CFFcERMfIWKaSeOnNZUcWHQoSMcjLBHfWAAlYZGqBQSzEIJvSC3XSbVfXCVrOTB5HYToXVVyVFGmce0N VYYxOGKlCwZ5UZBdZMRoIIVwMOpvHCJyTDZsPSK9SLXuAUXqZC0AZbQxIPKxGsW4UzUrGDNtLDTzjp8U CTRmLUPtByp9INNfMVObQQXkIGufVZZzPVYxXWOtIT GeDOIjOA7BJpYlIUYaYsA6JXNaVTGsMGPape9SUCQkOCPzOFQ5QvQeULUjOJCnTChyBNIgGIL6JjZcGG BjQIPkSK5SKvHvNIIcOyX9JGCkVNFoUHFnje9ZWAUnIHGeRyO0XuZdRPKeYNTjWEeqZMRiWTY0ScZ9FR ZkLRSpSG9OXcBaIHVqOrY1RELfCCTvYUXkoe9XvUMn xLbezg5VEGsNXl7UgLyySGGvMQoyZy4imDSmTRCaCIBCEb4SxcVnTGRkKISSBXmcPWBiXRI6LyinSDFu IMifGIkjIOCkHpL2GIjoHZJuJGKwFqw2WwI4QphdFlH1IsJ2A2TfCXHcFoJoYcdbVJOzOVS8J8ZdGlQ+ KR4tDEx+Ad8Bm5CbusU0dePuMVeeZgS5IC1UOKELU4XEEb== ID Date Data Source [id number] 07/07/2020 06:55:55 AM [facility] Name Value Range Interpretation Code Description Data [facility](s) Supporting Document(s) Albumin [Mass/volume] in Serum or Plasma by Bromocresol green (BCG) dye binding method 3.8 g/dL 3.5-5.2 [facility] Bil[facility].total [Mass/volume] in Serum or Plasma 0.7 mg/dL <1.2 [facility] Calcium [Mass/volume] in Serum or Plasma 6.9 mg/dL 8.6-10.[address] [facility] Chloride [Moles/volume] in Serum or Plasma 100 mmol/L 98-107 [facility] Confirmed Creatinine [Mass/volume] in Serum or Plasma 0.96 mg/dL 0.70-1.20 [facility] Glucose [Mass/volume] in Serum or Plasma 140 mg/dL 70-140 [facility] Alkaline phosphatase [Enzymatic activity/volume] in Serum or Plasma 49 U/L 40-129 [facility] Potassium [Moles/volume] in Serum or Plasma 3.5 mmol/L 3.4-5.1 [facility] Protein [Mass/volume] in Serum or Plasma 5.5 g/dL 6.4-8.[address] [facility] Sodium [Moles/volume] in Serum or Plasma 137 mmol/L 136-145 [facility] Aspartate aminotransferase [Enzymatic activity/volume] in Serum or Plasma 41 U/L <[address] [facility] Urea nitrogen [Mass/volume] in Serum or Plasma 18 mg/dL 6-20 [facility] Osmolality of Serum or Plasma by calculation 288 mosm/kg 275-300 [facility] Creatinine/Urea nitrogen [Mass Ratio] in Serum or Plasma 19 [facility] Bicarbonate [Moles/volume] in Serum 24 mmol/L 22-29 [facility] Alanine aminotransferase [Enzymatic activity/volume] in Seru m or Plasma 25 U/L <41 [facility] Anion gap 3 in Serum or Plasma 13 mmol/L 8-15 [facility] Glomerular filtration rate/1.73 sq M pre dicted among non-blacks [Volume Rate/Area] in Serum or Plasma by Creatinine-based formula (MDRD) >[address] [facility] Glomerular filtration rate/1.73 sq M pre dicted among blacks [Volume Rate/Area] in Serum or Plasma by Creatinine-based formula (MDRD) >60 [facility] ID Date Data Source [id number] 07/07/2020 08:45:11 AM [facility] Hospital Name Value Range Interpretation Code Description Data Zahraa rce(s) Supporting Document(s) Leukocytes [#/volume] in Blood by Automated count 5.1 10*3/uL 4-10 [facility] Erythrocytes [#/volume] in Blood by Automated count 3.26 10*6/uL 4.6- 6.[address] [facility] Hemoglobin [Mass/volume] in Blood 10.3 g/dL 13.5-[address] [facility] Hematocrit [Volume Fraction] of Blood by Automated count 29.8 % 4 1-[address] [facility] Erythrocyte mean corpuscular volume [Entitic volume] by Auto mated count 91.4 fL 80-96 [facility] Erythrocyte mean corpuscular hemoglobin [Entitic mass] by Automated count 31.6 pg 27-33 [facility] Erythrocyte mean corpuscular hemoglobin concentration [Mass/volume] by Automated count 34.5 g/dL 32.0-36.0 [facility] E[facility]th[facility] distribution width [Ratio] by Automated count 14.7 % 11.5-14.[address] [facility] Platelets [#/volume] in Blood by Automated count 65 10*3/uL 150-[address] [facility] Differential cell count method - Blood [facility] Neutrophils/100 leukocytes in Blood by Automated count 76 % [facility] Lymphocytes/100 leukocytes in Blood by Automated count 14 % [facility] Monocytes/100 leukocytes in Blood by Automated count 7 % [facility] Eosinophils/100 leukocytes in Blood by Automated count 3 % [facility] Neutrophils [#/volume] in Blood by Automated count 3.91 10*3/uL 1.8-[address] [facility] Lymphocytes [#/volume] in Blood by Automated count 0.71 10*3/uL 1.2-[address] [facility] Monocytes [#/volume] in Blood by Automated count 0.33 10*3/uL 0-0.8 [facility] Eosinophils [#/volume] in Blood by Automated count 0.14 10*3/uL 0-0.5 [facility] Poikilocytosis [Presence] in Blood by Light microscopy [facility] Stomatocytes [Presence] in Blood by Light microscopy [facility] ID Date Data Source [id number] 07/07/2020 07:00:15 AM [facility] Name Value Range Interpretation Code Description Data Zahraa rce(s) Supporting Document(s) Hemoglobin A1c/Hemoglobin.total in Blood by HPLC 5.5 % 4.0-6.0 [facility] (NOTE)<5.7% Average risk of diabetes (ADA)5.7-6.4% Increased risk of diabetes(ADA)>/= 6.5% Diagnostic for diabetes(ADA) Glucose mean value [Mass/volume] in Blood Estimated fr om glycated hemoglobin 111 mg/dL <126 [facility] ID Date Data Source [id number] 07/07/2020 12:45:32 AM EST [facility] Name Value Range Interpretation Code Description Data Zahraa rce(s) Supporting Document(s) Leukocytes [#/volume] in Blood by Automated count 5.2 10*3/uL 4-10 [facility] Erythrocytes [#/volume] in Blood by Automated count 3.20 10*6/uL 4.6- 6.[address] [facility] Hemoglobin [Mass/volume] in Blood 10.1 g/dL 13.5-[address] [facility] Hematocrit [Volume Fraction] of Blood by Automated count 29.2 % 4 1-[address] [facility] Erythrocyte mean corpuscular volume [Entitic volume] by Auto mated count 91.3 fL 80-96 [facility] Erythrocyte mean corpuscular hemoglobin [Entitic mass] by Automated count 31.5 pg 27-33 [facility] Erythrocyte mean corpuscular hemoglobin concentration [Mass/volume] by Automated count 34.5 g/dL 32.0-36.0 [facility] Erythrocyte distribution width [Ratio] by Automated count 14.4 % 11.5-14.5 [facility] Platelets [#/volume] in Blood by Automated count 69 10*3/uL 150-[address] [facility] Differential cell count method - Blood [facility] Neutrophils/100 leukocytes in Blood by Automated count 73 % [facility] Lymphocytes/100 leukocytes in Blood by Automated count 17 % [facility] Monocytes/100 leukocytes in Blood by Automated count 9 % [facility] Eosinophils/100 leukocytes in Blood by Automated count 1 % [facility] Basophils/100 leukocytes in Blood by Automated count 0 % [facility] Neutrophils [#/volume] in Blood by Automated count 3.74 10*3/uL 1.8-[address] [facility] Lymphocytes [#/volume] in Blood by Automated count 0.89 10*3/uL 1.2-[address] [facility] Monocytes [#/volume] in Blood by Automated count 0.46 10*3/uL 0-0.8 [facility] Eosinophils [#/volume] in Blood by Automated count 0.06 10*3/uL 0-0.5 [facility] Basophils [#/volume] in Blood by Automated count 0.01 10*3/uL 0-0.2 [facility] Nucleated erythrocytes/100 leukocytes [Ratio] in Blood by Automated count 0 /100{WBCs} 0-0 [facility] ID Date Data Source [id number] 07/06/2020 10:10:12 PM [facility] Hospital Name Value Range Interpretation Code Description Data Zahraa rce(s) Supporting Document(s) Glucose [Mass/volume] in Capillary blood by Glucometer 262 mg/dL 70- [address] [facility] ID Date Data Source [id number] 07/06/2020 10:56:[address] [facility] Value Range Interpretation Code Description Data Zahraa rce(s) Supporting Document(s) Magnesium [Mass/volume] in Serum or Plasma 2.0 mg/dL 1.6-2.6 [facility] ID Date Data Source [id number] 07/06/2020 10:56:[address] [facility] Value Range Interpretation Code Description Data Zahraa rce(s) Supporting Document(s) Potassium [Moles/volume] in Serum or Plasma 3.6 mmol/L 3.4-5.1 [facility] ID Date Data Source [id number] 07/06/2020 11:17:[address] [facility] Value Range Interpretation Code Description Data Zahraa rce(s) Supporting Document(s) Phosphate [Mass/volume] in Serum or Plasma 0.7 mg/dL 2.5-4.5 [facility] Results called to and read back by José Bhatti RN on 6I at 2316 by [id number] jwy confirmed ID Date Data Source [id number] 07/06/2020 06:21:[address] [facility] Value Range Interpretation Code Description Data Zahraa rce(s) Supporting Document(s) Lactate [Moles/volume] in Serum or Plasma 1.1 mmol/l 0.5-2.2 [facility] ID Date Data Source [id number] 07/06/2020 06:26:[address] [facility] Value Range Interpretation Code Description Data Zahraa rce(s) Supporting Document(s) Leukocytes [#/volume] in Blood by Automated count 5.6 10*3/uL 4-10 [facility] Erythrocytes [#/volume] in Blood by Automated count 3.15 10*6/uL 4.6- 6.[address] [facility] Hemoglobin [Mass/volume] in Blood 10.0 g/dL 13.5-[address] [facility] Hematocrit [Volume Fraction] of Blood by Automated count 28.9 % 4 1-[address] [facility] Erythrocyte mean corpuscular volume [Entitic volume] by Auto mated count 91.9 fL 80-96 [facility] Erythrocyte mean corpuscular hemoglobin [Entitic mass] by Automated count 31.7 pg 27-33 [facility] Erythrocyte mean corpuscular hemoglobin concentration [Mass/volume] by Automated count 34.5 g/dL 32.0-36.0 [facility] E[facility]throcyte distribution width [Ratio] by Automated count 14.3 % 11.5-14.5 [facility] Platelets [#/volume] in Blood by Automated count 70 10*3/uL 150-[address] [facility] Differential cell count method - Blood [facility] Neutrophils/100 leukocytes in Blood by Automated count 77 % [facility] Lymphocytes/100 leukocytes in Blood by Automated count 12 % [facility] Monocytes/100 leukocytes in Blood by Automated count 11 % [facility] Eosinophils/100 leukocytes in Blood by Automated count 0 % [facility] Basophils/100 leukocytes in Blood by Automated count 0 % [facility] Neutrophils [#/volume] in Blood by Automated count 4.29 10*3/uL 1.8-[address] [facility] Lymphocytes [#/volume] in Blood by Automated count 0.68 10*3/uL 1.2-4 .0 [facility] Monocytes [#/volume] in Blood by Automated count 0.59 10*3/uL 0-0.8 [facility] Eosinophils [#/volume] in Blood by Automated count 0.01 10*3/uL 0-0.5 [facility] Basophils [#/volume] in Blood by Automated count 0.00 10*3/uL 0-0.2 [facility] Nucleated erythrocytes/100 leukocytes [Ratio] in Blood by Automated count 0 /100{WBCs} 0-0 [facility] ID Date Data Source [id number] 07/06/2020 05:04:33 PM [facility] Name Value Range Interpretation Code Description Data Zahraa rce(s) Supporting Document(s) History and Physical [facility] POZSKf0pUhBHWrQs67/LUGwvRBFjs2DgJIenGUl1XHyzBVOiC3EdYUJ8cJ5wIBM1TJlEEqOkFzUhRNR8 lbm [file] CiAgICAgICAgICAgICAgICAgICAgICAgICAgICAgICAgICAgICAgICAgICAgICAgICAgICAgICAgICAg ICAgICAgICAgICAgICAgICAgICAgICAgICAgICAgICAgICAgICAgICANCiAgICAgICAgICAgICAgICAg ICAgICAgICAgICAgICAgICAgICAgICAgICAgICAgIC AgICAgICAgICAgICAgICAgICAgICAgICAgICAgICAgICAgICAgICAgICAgICAgICAgICANCiAgICAgIC AgICAgICAgICAgICAgICAgICAgICAgICAgICAgICAgICAgICAgICAgICAgICAgICAgICAgICAgICAgIC AgICAgICAgICAgICAgICAgICAgICAgICAgICAgICAg ICANCiAgICAgICAgICAgICAgICAgICAgICAgICAgICAgICAgICAgICAgICAgICAgICAgICAgICAgICAg ICAgICAgICAgICAgICAgICAgICAgICAgICAgICAgICAgICAgICAgICAgICANCiAgICAgICAgICAgICAg ICAgICAgICAgICAgICAgICAgICAgICAgICAgICAgIC AgICAgICAgICAgICAgICAgICAgICAgICAgICAgICAgICAgICAgICAgICAgICAgICAgICAgICANCiAgIC AgICAgICAgICAgICAgICAgICAgICAgICAgICAgICAgICAgICAgICAgICAgICAgICAgICAgICAgICAgIC AgICAgICAgICAgICAgICAgICAgICAgICAgICAgICAg ICAgICANCiAgICAgICAgICAgICAgICAgICAgICAgICAgICAgICAgICAgICAgICAgICAgICAgICAgICAg ICAgICAgICAgICAgICAgICAgICAgICAgICAgICAgICAgICAgICAgICAgICAgICANCiAgICAgICAgICAg ICAgICAgICAgICAgICAgICAgICAgICAgICAgICAgIC AgICAgICAgICAgICAgICAgICAgICAgICAgICAgICAgICAgICAgICAgICAgICAgICAgICAgICAgICANCi AgICAgICAgICAgICAgICAgICAgICAgICAgICAgICAgICAgICAgICAgICAgICAgICAgICAgICAgICAgIC AgICAgICAgICAgICAgICAgICAgICAgICAgICAgICAg ICAgICAgICANCiAgICAgICAgICAgICAgICAgICAgICAgICAgICAgICAgICAgICAgICAgICAgICAgICAg ICAgICAgICAgICAgICAgICAgICAgICAgICAgICAgICAgICAgICAgICAgICAgICAgICANCjw/rIWoS8pv xGYdvxA8C1exKw1LXm9XSQ2hf9NvKMJnWAedcxJbZp cQCdAxUTAxIuaUCtf1VQtiEQ3QsTFiU4QvI8NxLKqgOJ7OJMLoENNiiJWdXBOcXOOoHzU5CXFaTOalGY 7SbSZrQTfqZCZzFCAcJuVuTBTlOAIsJQEzMLJcYTDTNQDfPUAlYfIlPOwhJQ7Ok8AxyQK8MZb+Pg0KZW 1bq4MjKIreGuTaCV0exj0GMRuOKoXtK3EaexX1XGG6 HRNlIf5PFGZrFWYafBRmBJTeGRKIOiCyL8YxoF84SIUUHt2+PJhljuNkSrlXKkQ5UGDmz6ZpANu5EO5J JNNnBLg9kFOeRSGVKMM8KHrkWpKrXqsbASbjMYLCCLM7AZIbNhYaXpVpPUQgTEryTLIHYNiUPpTaX4Ss y5RtCbD6GBKlFeWsYPzmSSLyLyL3PR35kUwmXT9YMI FfCWMzWJ13DOFbBGSzTv1KWj0RHkPiXC6rqo9KIeMpFNVgXliSMee3TFkhRN0HcWOaT6AdnGClu1cGZg KpG5ZFYMHoSMPkCt9JNPDfAeHbUVTfKJtuSX6iUTAfIAJObUhmhvS4RS7SEC0brjYhPW9BMpBaOh9yFx 8TIpEzL4VxN4IlCDQkTYVNEDkiWY1KYPicVS4eUE5U g7TUvSOjqZ2ega6BGIKlPIGhXeeewk5JVsvpQ0U1yGzsPELlFdSgPUIDOMhrSP0CYLTyUHU2GUOpJcOb ZSMTEvPmJ86bDC8NA4Glo20yPjD8RPEtVsViZJfrJA73cQdahqClrQHgoFgkNV7PTs8+DQplbmRvYmoN HdxlAXPGXxYsLiTHVgShANDrXCKkDIQzRiU7RpOeEw 1PTPIoSYNlFLGlYkJhREWlYEUyMWsoPCHpSCQzAZT0VFApRQSkAZ1QQxTlIGAdFtO3JMYuSOHpSAQhlv 9KMDIbWKLvOES3ExHgBAWfTYRjKFvyBRSrWPX1PPU9VSJdTAAxBQ0MLbJuWPJxOFFhIzfxXSKgNMVymw 9DBBAuVHXpVxx7QXBjHSLwHIDxDUcjPCSmWOB4NLm2 MKJjQRTlYR1LSaNyJJLvOJH1UIOyHHGsCNEtuo5ALBXxCWKfCIt8XHQpHZJmSHGqYCqdGWRrLOP4Fypq CJHfGFUsPV1DEvYkWPCsUEH3GZuiVIHrNTNtsv3QRAOtJGUqCKn1CNQoQQMjHCZtCOjlXWCfTME0YXl5 VTBhMEXcDA3GDcVaKFPiOKzkFZDfEFZtPPHznl0NDX YkJXBlImK4TeHsLRYuBGRmSYghRRVxDQJ0XTE2FMZiPNLkAG0VXbDqOZVxRYc1PZRwOOTvASFing8ZCX PdAPLwNBM9UbWiYUBeQKJvMMmzZFDeDQS3BHg8HSUyYRWuMW9TSuGpBILbOZx3RRJbXEFtIIFplh5NDN TqNLXmXMY4BeAmDPGeKVKrJPwnMJDiOEHpErG4DZNz BVZgMU0KCsHnGXTmNvN1PIPxDEWaBJDwoj2LEULzTHOcKKywMINzVOSvEJXcJAkpMIZmCFXjCWQ1QBIf CFWjBX6ZDpScNUFoMsYrFuGdMETiFHKcga1IEGWyVPKdHtLbYcUsJEGrQKWyIDptPAXtDMKqLUV1WWMk CURgMB8VLiJzIHAqNjH7KGXpCWZrACZjxe8LWEXxLN DqLdfkAlJeIIIxFDBmANapWPKjGLJ9JkW0ANMpNXTyVB6HEsUrZQBqFyJ7GwmfQREqDTFjhn5ILLAkZP EkTCpzRKKsMJSvYMEfFTmzIGQgSPE3ETC9BHVzGXGyLN5FOsQjUSdiDHKJKeh0BJvaX8m0ZAWcQd4FJ9 Ydl5YyPmPeMZOBHZjgNE6cvsAgHYAaWf3GD4sYJcnv UUHkV7BeMAQvRaIlX6LpKVVwVLWiOQDvBFJpPaOoZt6kGUM3SYUySTQzXBC4RAS4SDW8LqLhIMG9JAC5 MQIhDFH5RdIiUP6UQa3TFiL0XMT2dMNrXc4BVrCuRlwTJcLsDT9VKUk= ID Date Data Source [id number] 07/06/2020 04:38:18 PM [facility] Hospital Name Value Range Interpretation Code Description Data Zahraa rce(s) Supporting Document(s) Consultation [facility] ESRVZy3mOaNDCaGn72/NDKiiHLEuy1YtIFgiWBe5XNsaWYPeD4IfEAK0xW6pMTI9GIrEAwFcFhIaTAT2 lbm [file] ICAgICAgICAgICAgICAgICAgICAgICAgICAgICAgICAgICAgICAgICAgICAgICAgICAgICAgICAgICAg ZDCjQNSaQWMbNCHvBBYvUB1NYTMtSEDtZARwRKRbYI AgICAgICAgICAgICAgICAgICAgICAgICAgICAgICAgICAgICAgICAgICAgICAgICAgICAgICAgICAgIC IcBBUaZXAmXUTbQKXcZTFoXNExKIZaPWZnHA9PRJDbATHvYLUeGETzNDWrPAShCEUmUVYcTHDrOUHyBE AgICAgICAgICAgICAgICAgICAgICAgICAgICAgICAg ELIdXQBdMOJfWSOgRUNxOYNfETRgGOCnAINbTPVfBKQcESDoSL6BJNUuFKKqXRGsOOJpWYPpRLYuWNCq ICAgICAgICAgICAgICAgICAgICAgICAgICAgICAgICAgICAgICAgICAgICAgICAgICAgICAgICAgICAg FYVxEZBzYCZbVYRkQELdTALxEG8YQQYtBVVjXBJzMY AgICAgICAgICAgICAgICAgICAgICAgICAgICAgICAgICAgICAgICAgICAgICAgICAgICAgICAgICAgIC ZnKGXnJSImEHWdXMWuKWOgEYBeZSLiNEHfJQAyMP6SOJQgAOZyNIKoTCWoAJQrKHYnFBEhQZBbLQXnKZ AgICAgICAgICAgICAgICAgICAgICAgICAgICAgICAg AGUeLXNsUJNvEGPcWWIzVCQlRWXaRSTgAMZxGUMrDGRuWUMpDHXlKZ6LTDWoAALyVPWuAUClGJJmRVMu ICAgICAgICAgICAgICAgICAgICAgICAgICAgICAgICAgICAgICAgICAgICAgICAgICAgICAgICAgICAg SXRjZXRwQHYwIUNeGQYjPADyEPBiGA2KKESiEXZoHG AgICAgICAgICAgICAgICAgICAgICAgICAgICAgICAgICAgICAgICAgICAgICAgICAgICAgICAgICAgIC FvNHSbILPjXBQsVOZzAZAyOCEmHOUuOKIdOUOvCAJmJM6BQKGiJNUyJLCgZUCpPDKnZTQxYJPjEZUvXP AgICAgICAgICAgICAgICAgICAgICAgICAgICAgICAg YCBdUIXbYZJtSIVqGUTaQLQwPIIgWOBvPCGkRZDdFILfQUKlNIKnVMSsGA2GGPPyWBKdTZCpSLUjBFRi ICAgICAgICAgICAgICAgICAgICAgICAgICAgICAgICAgICAgICAgICAgICAgICAgICAgICAgICAgICAg XZQnFXYyRHWpPLQkRGHsISBiQGLxQKPxZJ3VLI81gQ Vso4F2HXHnGZ3vrul/Pc9IXQqozxUotDRsIB9UGwIyFO4eqo6TOkTkWM9hjt3WLPiMEnFfI8W8wOBfRI UbTPUJTuGqU08lQDjqYg46MDxfAZNxLxKfJKf2Gx0LDkGkU2gnKBGfSjV9AUIdSzEjIPxhSO1Jp0PqgD AxDQo+Rb5DBS3dh0DqAPpvGPYqEM2wea0KBBbPPrDe O5NgbsC4DOB1QCYdCe3XJVFjDQJksGPoPMScNJPWNxKnG8BmtG03GRJBBq2+TZbjfpAbRaxZIlL7NLUr x9EcLOg2DD3SEGQiLCr9sKBoW21ih8HxkRRrQipuBMPzjPwogjOSDIRsE4SrbwFbSChLX5roASMfRFCw BM1mHTOkDSH4EkU1UIFDOZ3TKVFqJXXhjIUrSENiGE LXKE6ZZFwhYXC6RACflgLbuYFgDPpmYS0TXFGtvhJxSFHsPHZVHSt+Jy3PUE6py2DiQUgqGmTuHP2jlr 1VHHlILrRrP0L4cAGsQ6Y9EQroCu7ICHEvDNNqAUOvRLTZUCsiKT0DIO0opjR8UQ7JxALcYJIvEIPsiJ BbKPr7R32jeEQtTRstMZ3JRJL+Malvin+Uu4BCYMvPGZk TPEdRaQbJLMMTeMuA1CaR8OMy8UmS5XyFC54rYshtcIxFZteDA7FTF7bVELnZBQCKN4MlYGnpY8rneAd NLXsIAKPIyNxZ59ewFFdYEHgZPJsFYKpDr5HZYXmQ7JgufDvgFbrtuTzNXNiOECBYD6BDOyscrIoaUXb vZamCC28eNikZE6BFb8INuQjTB9iiv4OlIXkFk5KVD ByRv8ERDYzHYXxFGMqOJA7QHNvObMbSOxcTAQmRWFoYAM5BGEpPZPsES0IQqRzTQPxJGJ1BvldBENlYE Ydhd9LEQQdQFEkOmP4AZYpRIJfWIBzIYlnLQSsUQLhRUJ3ILHbABKhRA1BUfLxNMPeGTX7SOkeIYMaHK Rene3KMULbUMTiMGlwTsPyLGLkHKBbKQrjGCLfAORy HngpNHKhUQXvPF1DJdQqAAScLBH1AmxnQEZdKZHixn8JNJAkHRZjOgP3QWXuAPYxERStQWxfHGKsEPT4 JKA2MIVmCJReKK9UPcKiGTGqDGRjRDbvQCPpQIAalv2PWSSiFHMtXNFfQTHeHBTqSORsLKwvYVSjKVA8 SOH5ECNxBYEqZK0TMsXrISGzNDVcRGzxTPUrUUXktx 6TWRNeMAJbHiXgXXOjBYNzMMTyOOqkQTSgVZU0GGA9LHOuWOVoRY9TBhFeCRoaHMHMRqs7YQnoJ3j6ZY BzIx2VY8Jxw4IdHSOnSZDHFYzcNN6vtuLaPXViNe4DR3sZJctpRpC7KwFlGiN9Hox6PCZvJOSbGddwJc TnXEFbLhl6Zb5hKRSwHdGvRFEeOSEqFspaIDYdNeAd D0ToHpS6QFLaMkv2IrMzNU4GQl6GWaM7AZJ9cDFtLk5TAapgMY6JPWCFW3YFHn== ID Date Data Source [id number] 07/10/2020 08:51:25 AM [facility] Cmnt XXX-Imp : NoneO+P Stl Conc : [...] rce(s) Supporting Document(s) ID Date Data Source [id number] 07/07/2020 10:33:56 AM [facility] Service Cmnt XXX-Imp : NoneGI Panel [...] Name Value Range Interpretation Code Description Data [facility] rce(s) Supporting Document(s) ID Date Data Source [id number] 07/06/2020 02:28:33 PM [facility] Name Value Range Interpretation Code Description Data [facility] rce(s) Supporting Document(s) Progress Note [facility] KSVKIt8fBtGRJtNl97/XRGhgLBGcs8SwTGfhPXy3VKqzJDIkS2QtYWR3aB9rHGE8TLuWCoJpZtZiCWA4 lbm [file] Z1FqhzMpcorVSJMyj/Uckh3F3a8yqVomXz+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 Erythrocytes [#/volume] in Blood by Automated count 3.13 10*6/uL 4.6- 6.[address] [facility] Hemoglobin [Mass/volume] in Blood 9.9 g/dL 13.5-[address] [facility] Hematocrit [Volume Fraction] of Blood by Automated count 28.7 % 4 1-[address] [facility] Erythrocyte mean corpuscular volume [Entitic volume] by Auto mated count 91.4 fL 80-96 [facility] Erythrocyte mean corpuscular hemoglobin [Entitic mass] by Automated count 31.7 pg 27-33 [facility] Erythrocyte mean corpuscular hemoglobin concentration [Mass/volume] by Automated count 34.6 g/dL 32.0-36.0 [facility] width [Ratio] by Automated count 14.7 % 11.5-14.[address] [facility] Platelets [#/volume] in Blood by Automated count 71 10*3/uL 150-[address] [facility] Differential cell count method - Blood [facility] Neutrophils/100 leukocytes in Blood by Automated count 80 % [facility] Lymphocytes/100 leukocytes in Blood by Automated count 9 % [facility] Monocytes/100 leukocytes in Blood by Automated count 11 % [facility] Eosinophils/100 leukocytes in Blood by Automated count 0 % [facility] Basophils/100 leukocytes in Blood by Automated count 0 % [facility] Neutrophils [#/volume] in Blood by Automated count 4.88 10*3/uL 1.8-[address] [facility] Lymphocytes [#/volume] in Blood by Automated count 0.55 10*3/uL 1.2-[address] [facility] Monocytes [#/volume] in Blood by Automated count 0.64 10*3/uL 0-0.8 [facility] Eosinophils [#/volume] in Blood by Automated count 0.00 10*3/uL 0-0.5 [facility] Basophils [#/volume] in Blood by Automated count 0.00 10*3/uL 0-0.2 [facility] Nucleated erythrocytes/100 leukocytes [Ratio] in Blood by Automated count 0 /100{WBCs} 0-0 [facility] ID Date Data Source [id number] 07/06/2020 12:13:46 PM [facility] Hospital Name Value Range Interpretation Code Description Data Zahraa rce(s) Supporting Document(s) Bicarbonate [Moles/volume] in Serum 16 mmol/L 22-[address] [facility] Chloride [Moles/volume] in Serum or Plasma 89 mmol/L 98-[address] [facility] Creatinine [Mass/volume] in Serum or Plasma 1.38 mg/dL 0.70-1.[address] [facility] Glucose [Mass/volume] in Serum or Plasma 179 mg/dL 70-[address] [facility] Potassium [Moles/volume] in Serum or Plasma 3.4 mmol/L 3.4-5.1 [facility] Sodium [Moles/volume] in Serum or Plasma 130 mmol/L 136-[address] [facility] Urea nitrogen [Mass/volume] in Serum or Plasma 35 mg/dL 6-[address] [facility] Anion gap 3 in Serum or Plasma 25 mmol/L 8-[address] [facility] Osmolality of Serum or Plasma by calculation 283 mosm/kg 275-300 [facility] Creatinine/Urea nitrogen [Mass Ratio] in Serum or Plasma 25 [facility] Calcium [Mass/volume] in Serum or Plasma 7.1 mg/dL 8.6-10.[address] [facility] Glomerular filtration rate/1.73 sq M pre dicted among non-blacks [Volume Rate/Area] in Serum or Plasma by Creatinine-based formula (MDRD) 56 mL/min/1.73m2 >[address] [facility] Glomerular filtration rate/1.73 sq M pre dicted among blacks [Volume Rate/Area] in Serum or Plasma by Creatinine-based formula (MDRD) 65 mL/min/1.73m2 >60 [facility] ID Date Data Source [id number] 07/06/2020 12:13:46 PM [facility] Name Value Range Interpretation Code Description Data Zahraa rce(s) Supporting Document(s) Magnesium [Mass/volume] in Serum or Plasma 2.0 mg/dL 1.6-2.6 [facility] ID Date Data Source [id number] 07/06/2020 12:13:46 PM [facility] Name Value Range Interpretation Code Description Data Zahraa rce(s) Supporting Document(s) Phosphate [Mass/volume] in Serum or Plasma 1.7 mg/dL 2.5-4.5 [facility] ID Date Data Source [id number] 07/06/2020 12:09:[address] [facility] Value Range Interpretation Code Description Data Zahraa rce(s) Supporting Document(s) Lactate [Moles/volume] in Serum or Plasma 1.4 mmol/l 0.5-2.2 [facility] ID Date Data Source [id number] 07/06/2020 08:35:[address] [facility] Value Range Interpretation Code Description Data Zahraa rce(s) Supporting Document(s) Leukocytes [#/volume] in Blood by Automated count 8.8 10*3/uL 4-10 [facility] Erythrocytes [#/volume] in Blood by Automated count 3.85 10*6/uL 4.6- 6.1 [facility] Hemoglobin [Mass/volume] in Blood 12.1 g/dL 13.5-18 [facility] Hematocrit [Volume Fraction] of Blood by Automated count 35.2 % 4 1-53 [facility] Erythrocyte mean corpuscular volume [Entitic volume] by Auto mated count 91.3 fL 80-96 [facility] Erythrocyte mean corpuscular hemoglobin [Entitic mass] by Automated count 31.5 pg 27-33 [facility] Erythrocyte mean corpuscular hemoglobin concentration [Mass/volume] by Automated count 34.4 g/dL [facility].0[facility] width [Ratio] by Automated count 14.4 % 11.5-14.5 [facility] Platelets [#/volume] in Blood by Automated count 88 10*3/uL 150-400 [facility] Differential cell count method - Blood [facility] Neutrophils/100 leukocytes in Blood by Automated count 82 % [facility] Lymphocytes/100 leukocytes in Blood by Automated count 6 % [facility] Monocytes/100 leukocytes in Blood by Automated count 12 % [facility] Eosinophils/100 leukocytes in Blood by Automated count 0 % [facility] Basophils/100 leukocytes in Blood by Automated count 0 % [facility] Neutrophils [#/volume] in Blood by Automated count 7.14 10*3/uL 1.8-[address] [facility] Lymphocytes [#/volume] in Blood by Automated count 0.55 10*3/uL 1.2-[address] [facility] Monocytes [#/volume] in Blood by Automated count 1.08 10*3/uL 0-0.[address] [facility] Eosinophils [#/volume] in Blood by Automated count 0.00 10*3/uL 0-0.5 [facility] Basophils [#/volume] in Blood by Automated count 0.01 10*3/uL 0-0.2 [facility] Nucleated erythrocytes/100 leukocytes [Ratio] in Blood by Automated count 0 /100{WBCs} 0-0 [facility] ID Date Data Source [id number] 07/06/2020 06:55:00 AM EST [facility] Patient: JANICE VERMA Observation Report - Physicians/Mid [facility].VisitID: [id number] [place] [address] [phone], MRegistration Date/Time: 07/05/2020 20:13 Weight:90.7 kg (S). [...] rce(s) Supporting Document(s) ID Date Data Source [id number] 07/06/2020 06:54:00 AM [facility] CT [...] rce(s) Supporting Document(s) ID Date Data Source [id number] 07/06/2020 06:44:00 AM [facility] THE CHEST WITHOUT [...] rce(s) Supporting Document(s) ID Date Data Source [id number] 07/06/2020 05:10:14 AM [facility] US ABDOMEN COMPLETE [id number] RESULTInt erpreted by:RYDER PatelROCEDURE INFORMATION: Exam: US [...] rce(s) Supporting Document(s) ID Date Data Source [id number] 07/06/2020 02:29:00 PM [facility] Name Value Range Interpretation Code Description Data Zahraa rce(s) Supporting Document(s) Color of Urine [facility] Clarity of Urine [facility] Specific gravity of Urine by Refractometry automated 1.016 1.003 -1.030 [facility] pH of Urine by Automated test strip 5.0 5.0-8.0 [facility] Protein [Mass/volume] in Urine by Automated test strip 30 mg/dL Neg ative [facility] Glucose [Mass/volume] in Urine by [facility] test [facility] Ketones [Mass/volume] in Urine by Automated test strip 80 [facility] Bilirubin.total [Presence] in Urine by Automated test strip Negative [facility] Hemoglobin [Presence] in Urine by Automated test strip Neg ative [facility] Leukocyte esterase [Presence] in Urine by Automated test strip Negative [facility] Nitrite [Presence] in Urine by Automated test strip Negati ve [facility] Leukocytes [#/area] in Urine sediment by Automated count 0 -5 [facility] Erythrocytes [#/area] in Urine sediment by Automated count 1 /HPF 0-3 [facility] Epithelial cells.squamous [#/area] in Urine sediment by Auto mated count 1 /HPF None [facility] Mucus [#/area] in Urine sediment by Microscopy low power field None [facility] ID Date Data Source [id number] 07/06/2020 03:42:08 PM [facility] Name Value Range Interpretation Code Description Data Zahraa rce(s) Supporting Document(s) Creatinine [Mass/volume] in Urine 56.0 mg/dl [facility] ID Date Data Source [id number] 07/06/2020 03:42:[address] [facility] Value Range Interpretation Code Description Data Zahraa rce(s) Supporting Document(s) Amphetamine [Presence] in Urine by Screen method Negative [facility] Benzodiazepines [Presence] in Urine by Screen method Negat [facility] Cannabinoids [Presence] in Urine by Screen method Negative [facility] Benzoylecgonine [Presence] in Urine by Screen method Negat [facility] Methadone [Presence] in Urine by Screen method Negative [facility] Opiates [Presence] in Urine by Screen method Negative [facility] Oxycodone [Presence] in Urine by Screen method Negative [facility] (NOTE)Positive results are presumptive a nd unconfirmed;confirmatorytesting can be ordered at the [facility] at [phone] [place] [facility] at [phone] within 5 days of collection. Fentanyl+Norfentanyl [Presence] in Urine by Screen method Negative [facility] (NOTE)Positive results are presumptive a nd unconfirmed;confirmatorytesting can be ordered at the [facility] at [phone] [place] [facility] at [phone] within 5 days of collection. Service comment [facility] Results below the indicated cutoff (ng/m L), are reported as"Negative." Note: for medical purposes only; not valid for legalor employment testing. ID Date Data Source [id number] 07/06/2020 03:42:[address] [facility] Value Range Interpretation Code Description Data Zahraa rce(s) Supporting Document(s) Sodium [Moles/volume] in Urine 40 mmol/L [facility] ID Date Data Source [id number] 07/06/2020 05:50:[address] [facility] Value Range Interpretation Code Description Data Zahraa rce(s) Supporting Document(s) Prothrombin time (PT) 15.5 s 12.5-14.[address] [facility] INR in Platelet poor plasma by Coagulation assay 1.21 [facility] Routine intensity oral anticoagulation I NR is typically 2.0-3.0. Target INR must be clinically individualized. ID Date Data Source [id number] 07/06/2020 05:50:[address] [facility] Value Range Interpretation Code Description Data Zahraa rce(s) Supporting Document(s) aPTT in Platelet poor plasma by Coagulation assay 29.7 s 24.0-33. 0 [facility] ID Date Data Source [id number] 07/06/2020 05:54:[address] [facility] Value Range Interpretation Code Description Data Zahraa rce(s) Supporting Document(s) Ethanol [Mass/volume] in Serum or Plasma 0.06 g/dl Negative A [facility] ID Date Data Source [id number] 07/06/2020 06:15:[address] [facility] Value Range Interpretation Code Description Data Zahraa rce(s) Supporting Document(s) Albumin [Mass/volume] in Serum or Plasma by Bromocresol green (BCG) dye binding method 3.3 g/dL 3.5-5.2 [facility] Bilirubin.total [Mass/volume] in Serum or Plasma 0.6 mg/dL <1.2 [facility] Calcium [Mass/volume] in Serum or Plasma 6.7 mg/dL 8.6-10.[address] [facility] Chloride [Moles/volume] in Serum or Plasma 88 mmol/L 98-[address] [facility] Confirmed Creatinine [Mass/volume] in Serum or Plasma 1.39 mg/dL 0.70-1.[address] [facility] Glucose [Mass/volume] in Serum or Plasma 145 mg/dL 70-[address] [facility] Alkaline phosphatase [Enzymatic activity/volume] in Serum or Plasma 66 U/L 40-129 [facility] Potassium [Moles/volume] in Serum or Plasma 3.2 mmol/L 3.4-5.1 [facility] Confirmed Protein [Mass/volume] in Serum or Plasma 5.7 g/dL 6.4-8.[address] [facility] Sodium [Moles/volume] in Serum or Plasma 131 mmol/L 136-[address] [facility] Confirmed Aspartate aminotransferase [Enzymatic activity/volume] in Serum or Plasma 74 U/L <[address] [facility] Urea nitrogen [Mass/volume] in Serum or Plasma 41 mg/dL 6-[address] [facility] Osmolality of Serum or Plasma by calculation 286 mosm/kg 275-300 [facility] Confirmed Creatinine/Urea nitrogen [Mass Ratio] in Serum or Plasma 30 [facility] Bicarbonate [Moles/volume] in Serum 12 mmol/L 22-[address] [facility] Confirmed Alanine aminotransferase [Enzymatic activity/volume] in Seru m or Plasma 37 U/L <41 [facility] Anion gap 3 in Serum or Plasma 32 mmol/L 8-[address] [facility] Confirmed Glomerular filtration rate/1.73 sq M pre dicted among non-blacks [Volume Rate/Area] in Serum or Plasma by Creatinine-based formula (MDRD) 56 mL/min/1.73m2 >60 [facility] Glomerular filtration rate/1.73 sq M pre dicted among blacks [Volume Rate/Area] in Serum or Plasma by Creatinine-based formula (MDRD) 64 mL/min/1.73m2 >60 [facility] ID Date Data Source [id number] 07/06/2020 11:08:29 AM [facility] Name Value Range Interpretation Code Description Data Zahraa rce(s) Supporting Document(s) Magnesium [Mass/volume] in Serum or Plasma 1.7 mg/dL 1.6-2.6 [facility] ID Date Data Source [id number] 07/06/2020 11:08:[address] [facility] Value Range Interpretation Code Description Data Zahraa rce(s) Supporting Document(s) Phosphate [Mass/volume] in Serum or Plasma 2.6 mg/dL 2.5-4.5 [facility] ID Date Data Source [id number] 07/06/2020 06:19:[address] [facility] Value Range Interpretation Code Description Data Zahraa rce(s) Supporting Document(s) HIV 1+2 Ab+HIV1 p24 Ag [Presence] in Serum or Plasma by Immu noassay Non Reactive [facility] Negative for HIV-1 p24 antigenand HIV-1/ HIV-2 antibodies. Nolaboratory evidence of HIVinfection. ID Date Data Source [id number] 07/06/2020 06:14:[address] [facility] Value Range Interpretation Code Description Data Zahraa rce(s) Supporting Document(s) Hepatitis A virus IgM Ab [Presence] in Serum or Plasma by Im munoassay Non Reactive [facility] No acute infection, susceptible to infec tion. ID Date Data Source [id number] 07/06/2020 06:14:[address] [facility] Value Range Interpretation Code Description Data Zahraa rce(s) Supporting Document(s) Hepatitis B virus surface Ag [Presence] in Serum or Plasma b y Immunoassay Non Reactive [facility] No active or previous infection. Suscept ible to infection. ID Date Data Source [id number] 07/06/2020 06:14:[address] [facility] Value Range Interpretation Code Description Data Zahraa rce(s) Supporting Document(s) Hepatitis B virus core IgM Ab [Presence] in Serum or Plasma by Immunoassay Non Reactive [facility] IgM antibodies to HBc were not detected, does not exclude the possibility of exposure to HBV. ID Date Data Source [id number] 07/06/2020 06:14:[address] [facility] Value Range Interpretation Code Description Data Zahraa rce(s) Supporting Document(s) Hepatitis C virus Ab [Presence] in Serum or Plasma by Immuno assay [facility] Reactive [facility] No serological evidence of active infect ion. If recent exposure is suspected, test for HCV RNA. ID Date Data Source [id number] 07/06/2020 05:55:[address] [facility] Value Range Interpretation Code Description Data Zahraa rce(s) Supporting Document(s) Lactate [Moles/volume] in Serum or Plasma 5.1 mmol/l 0.5-2.2 [facility] Results called to and read back by 6I KRISTYN RIOS AT [id number] BY [id number] ID Date Data Source [id number] 07/06/2020 05:52:43 AM [facility] Name Value Range Interpretation Code Description Data Zahraa rce(s) Supporting Document(s) Ammonia [Moles/volume] in Plasma 19 umol/L 16-60 [facility] ID Date Data Source [id number] 07/11/2020 08:53:02 AM [facility] Cmnt XXX-Imp : L BICEPMicroorgan ism XXX Cult : No growth 5 days Name Value Range Interpretation Code Description Data Zahraa rce(s) Supporting Document(s) ID Date Data Source [id number] 07/11/2020 08:53:02 AM [facility] Service Cmnt XXX-Imp : CENTRAL LINEMicro organism XXX Cult : No growth 5 days Name Value Range Interpretation Code Description Data Zahraa rce(s) Supporting Document(s) ID Date Data Source [id number] 07/07/2020 01:37:29 PM [facility] Cmnt XXX-Imp : NoneMicroorganism XXX Cult : No growth 1 day Name Value Range Interpretation Code Description Data Zahraa rce(s) Supporting Document(s) ID Date Data Source [id number] 07/06/2020 02:24:54 AM [facility] Name Value Range Interpretation Code Description Data Zahraa rce(s) Supporting Document(s) Glucose [Mass/volume] in Capillary blood by Glucometer 173 mg/dL 70- [address] [facility] ID Date Data Source [id number] 07/06/2020 05:25:00 AM [facility] TSYSORDER [id number] Name Value Range Interpretation Code Description Data Zahraa rce(s) Supporting Document(s) URINE RBC 3-5 /hpf 0-[address] [facility] URINE WBC 1-3 /hpf 0-[address] [facility] URINE EPITHELIAL CELLS 1+ /hpf 0 [facility] URINE BACTERIA 1+ NONE SEEN [facility] URINE HYALINE CAST 10-30 /LPF 0 [facility] ID Date Data Source [id number] 07/06/2020 12:24:00 AM [facility] TSYSORDER [id number] Name Value Range Interpretation Code Description Data Zahraa rce(s) Supporting Document(s) URINE COLOR. [facility] URINE APPEARANCE CLEAR [facility] URINE GLUCOSE (UA) NEGATIVE mg/dL NEGATIVE [facility] URINE BILIRUBIN 1+(SMALL) NEGATIVE [facility] URINE KETONE 80(LARGE) mg/dL NEGATIVE [facility]ya SPECIFIC GRAVITY,URINE 1.020 1.001-1.[address] [facility] URINE BLOOD 2+(MODERATE) NEGATIVE [facility] PH,URINE 5.5 5.0-9.[address] [facility] URINE PROTEIN 1+(30) mg/dL NEGATIVE [facility] URINE UROBILINOGEN NORMAL(0.2-1) mg/dL 0-1 [facility] URINE NITRATE NEGATIVE NEGATIVE [facility] URINE LEUKOCYTE ESTERASE NEGATIVE NEGATIVE [facility] ID Date Data Source [id number] 07/06/2020 12:21:00 AM [facility] TSYSORDER [id number] Name Value Range Interpretation Code Description Data Zahraa rce(s) Supporting Document(s) AMMONIA < 10 umol/L 11-[address] [facility] ID Date Data Source [id number] 07/05/2020 11:29:00 PM [facility] TSYSORDER [id number] Name Value Range Interpretation Code Description Data Zahraa rce(s) Supporting Document(s) COVID-19 NEGATIVE NEGATIVE [facility] Negative results should be treated as [...] are for the indentification of SARS-CoV-2 RNA. WamTMPO-HnD-9 RNA is generally detectable in respiratorysamples during the actue phase of infection. ID Date Data Source [id number] 07/05/2020 11:10:00 PM [facility] Name Value Range Interpretation Code Description Data Zahraa rce(s) Supporting Document(s) COVID-[address] [facility] This lab was ordered by [facility] and reported by [facility]. ID Date Data Source [id number] 07/12/2020 09:25:00 AM EST [facility] Name Value Range Interpretation Code Description Data Zahraa rce(s) Supporting Document(s) [facility] Source [id number] 07/05/2020 09:38:00 PM EST [facility] TSYSORDER [id number] Name Value Range Interpretation Code Description Data Zahraa rce(s) Supporting Document(s) LACTIC ACID 9.8 mmol/L 0.4-2.[address] [facility] SAMPLE SLIGHTLY HEMOLYZED CALLED RESULTS TO MORIS IN ED AT 2138 ON 07/05/20 ID Date Data Source [id number] 07/05/2020 09:29:00 PM EST [facility] TSYSORDER [id number] Name Value Range Interpretation Code Description Data Zahraa rce(s) Supporting Document(s) GLUCOSE 174 mg/dL 74-[address] [facility] BLOOD UREA NITROGEN 51 mg/dL 7-18 *H [facility] ital CREATININE 2.7 mg/dL 0.7-1.[address] [facility] SODIUM 127 mmol/L 136-[address] [facility] POTASSIUM 3.1 mmol/L 3.5-5.[address] [facility] CHLORIDE 78 mmol/L 98-107 *L [facility] CO2 14 mmol/L 21-32 *L [facility] CALCIUM 8.2 mg/dL 8.5-10.[address] [facility] ANION GAP 35.0 mmol/L 5-[address] [facility] GLOMERULAR FILTRATION RATE 25 mL/min [facility] GFR IS CALCULATED IN mL/min/1.73m2 VINICIUS L FUNCTION: >90MILDLY DECREASED: 60-89MILDY TO MODERATELY DECREASED: 45-59 MODERATELY TO SEVERELY DECREASED: 30-44SEVERELY DECREASED: 15-29RENAL FAILURE: <15 AST 118 U/L 15-37 *H [facility] ALT 61 U/L 12-[address] [facility] ALKALINE PHOSPHATASE 100 U/L 46-116 [facility] TOTAL BILIRUBIN 0.8 mg/dL 0.2-1.[address] [facility] TOTAL PROTEIN 8.2 g/dl 6.4-8.[address] [facility] ALBUMIN 3.9 gm/dL 3.4-5.[address] [facility] ID Date Data Source [id number] 07/05/2020 09:29:00 PM EST [facility] TSYSORDER [id number] Name Value Range Interpretation Code Description Data Zahraa rce(s) Supporting Document(s) MAGNESIUM 2.7 mg/dL 1.8-2.[address] [facility] ID Date Data Source [id number] 07/05/2020 09:29:00 PM EST [facility] TSYSORDER [id number] Name Value Range Interpretation Code Description Data Zahraa rce(s) Supporting Document(s) LIPASE 124 U/L 73-[address] [facility] ID Date Data Source [id number] 07/05/2020 09:24:00 PM EST [facility] TSYSORDER [id number] Name Value Range Interpretation Code Description Data Zahraa rce(s) Supporting Document(s) ETHYL ALCOHOL 0.26 % 0-0.[address] [facility] ID Date Data Source [id number] 07/05/2020 09:17:00 PM [facility] [id number] Name Value Range Interpretation Code Description Data Zahraa rce(s) Supporting Document(s) TSH 1.03 uIU/mL 0.36-3.[address] [facility] ID Date Data Source [id number] 07/05/2020 09:12:00 PM [facility] TSYSORDER [id number] Name Value Range Interpretation Code Description Data Zahraa rce(s) Supporting Document(s) PROTHROMBIN TIME (PATIENT) 10.6 SECONDS 9.1-11.[address] [facility] INR 1.02 0.87-1.[address] [facility] ID Date Data Source [id number] 07/05/2020 09:12:00 PM EST [facility] TSYSORDER [id number] Name Value Range Interpretation Code Description Data Zahraa rce(s) Supporting Document(s) PARTIAL THROMBOPLASTIN TIME 24.4 SECONDS 21.2-27.[address] [facility] ID Date Data Source [id number] 07/05/2020 08:48:00 PM EST [facility] TSYSORDER [id number] Name Value Range Interpretation Code Description Data Zahraa rce(s) Supporting Document(s) WHITE BLOOD COUNT 16.4 K/mm3 4.0-10.0 [facility] RED BLOOD COUNT 5.20 M/mm3 4.50-6.00 [facility] HEMOGLOBIN 16.4 gm/dL 14.0-18.[address] [facility] HEMATOCRIT 45.2 % 42.0-54.[address] [facility] MEAN CELL VOLUME 86.9 fl 80-96 [facility] MEAN CORPUSCULAR HEMOGLOBIN 31.5 pg 27.0-31.0 H [facility] MEAN CORPUSCULAR HGB CONC 36.3 g/dl 32.0-36.0 H [facility] RED CELL DISTRIBUTION WIDTH 13.3 % 10.0-14.5 [facility] PLATELET COUNT 198 K/mm3 172-[address] [facility] MEAN PLATELET VOLUME 11.0 fl 9.0-13.0 [facility] GRAN % 87.9 % 50-80.0 H [facility] IG% 0.1 % 0.0-0.[address] [facility] LYMPH % 4.5 % 25.0-50.0 *L [facility] MONO % 7.3 % 2.0-10.0 [facility] EOS % 0.1 % 0-5.[address] [facility] BASO % 0.1 % 0.0-2.[address] [facility] GRAN # 14.4 K/mm3 2.0-8.[address] [facility] IG# 0.0 K/mm3 0.0-0.[address] [facility] LYMPH # 0.7 K/mm3 1.0-5.[address] [facility] MONO # 1.2 K/mm3 0.10-1.[address] [facility] EOS # 0.0 K/mm3 0.0-0.[address] [facility] BASO # 0.0 K/mm3 0.0-0.2 [facility] ID Date Data Source [id number] 07/12/2020 09:25:00 AM EST [facility] Name Value Range Interpretation Code Description Data Zahraa rce(s) Supporting Document(s) [facility] ID Date Data Source [id number] 07/24/2019 08:32:00 PM EST [facility] Patient: JANICE VERMA Observation Report - Physicians/[facility].VisitID: [id number] [place] [address] [phone], MRegistration Date/Time: 07/24/2019 17:27 Weight:99.7 kg (S). [...] 07/24/2019 19:54) Mati mccabe JANICE VERMA VisitID: [id number] Date: 07/24/2019 07/24/2019 20:30indomethacin 25 mg capsule Take 1 capsule every eight hours as needed for pain for 5 days -- Dispense 15 capsule. Refills: 0. Substitution permitted.Pharmacy - [id number] [address] [place] [address]. FaxNumber: .(Electronically signed by Edita Jasmine - 07/24/2019 20:30) Name Value Range Interpretation Code Description Data Zahraa rce(s) Supporting Document(s) ID Date Data Source [id number] 07/24/2019 07:56:00 PM EST [facility] Patient: JANICE VERMA [facility]ation [id number] [place] [address] [phone], MRegistration Date/Time: 07/24/2019 17:27 Weight:99.7 kg (S). [...] Name Value Range Interpretation Code Description Data [facility] rce(s) Supporting Document(s) ID Date Data Source [id number] 07/22/2019 10:46:00 AM EST [facility] Patient: JANICE VERMA Observation Report - Physicians/Mid Levels [facility].VisitID: [id number] [place] [address] [phone], MRegistration Date/Time: 07/21/2019 14:03 Weight:99.7 kg (S). [...] Name Value Range Interpretation Code Description Data [facility] rce(s) Supporting Document(s) ID Date Data Source [id number] 07/24/2019 12:02:00 PM EST [facility] Name Value Range Interpretation Code Description Data [facility] rce(s) Supporting Document(s) [facility] ID Date Data Source [id number] 07/21/2019 03:28:00 PM EST [facility] TSYSORDER [id number] Name Value Range Interpretation Code Description Data Zahraa rce(s) Supporting Document(s) URINE RBC NONE SEEN /hpf 0-[address] [facility] URINE WBC NONE SEEN /hpf 0-[address] [facility] URINE EPITHELIAL CELLS 1+ /hpf 0 [facility] URINE BACTERIA TRACE NONE SEEN H [facility] ID Date Data Source [id number] 07/21/2019 03:56:00 PM [facility] TSYSORDER [id number] Name Value Range Interpretation Code Description Data Zahraa rce(s) Supporting Document(s) GLUCOSE 146 mg/dL 74-[address] [facility] BLOOD UREA NITROGEN 12 mg/dL 7-18 [facility] ital CREATININE 1.2 mg/dL 0.7-1.[address] [facility] SODIUM 135 mmol/L 136-[address] [facility] POTASSIUM 3.7 mmol/L 3.5-5.[address] [facility] CHLORIDE 97 mmol/L 98-[address] [facility] CO2 28 mmol/L 21-[address] [facility] CALCIUM 9.8 mg/dL 8.5-10.[address] [facility] ANION GAP 10.0 mmol/L 5-[address] [facility] GLOMERULAR FILTRATION RATE 63 mL/min [facility] GFR IS CALCULATED IN mL/min/1.73m2 VINICIUS L FUNCTION: >90MILDLY DECREASED: 60-89MILDY TO MODERATELY DECREASED: 45-59 MODERATELY TO SEVERELY DECREASED: 30-44SEVERELY DECREASED: 15-29RENAL FAILURE: <15 AST 20 U/L 15-[address] [facility] ALT 19 U/L 12-[address] [facility] ALKALINE PHOSPHATASE 79 U/L 46-116 [facility] TOTAL BILIRUBIN 0.8 mg/dL 0.2-1.[address] [facility] TOTAL PROTEIN 7.3 g/dl 6.4-8.[address] [facility] ALBUMIN 4.0 gm/dL 3.4-5.[address] [facility] ID Date Data Source [id number] 07/21/2019 03:12:00 PM [facility] TSYSORDER [id number] Name Value Range Interpretation Code Description Data [facility] rce(s) Supporting Document(s) WHITE BLOOD COUNT 8.9 K/mm3 4.0-10.0 [facility] RED BLOOD COUNT 5.31 M/mm3 4.50-6.00 [facility] HEMOGLOBIN 14.6 gm/dL 14.0-18.[address] [facility] HEMATOCRIT 43.6 % 42.0-54.[address] [facility] MEAN CELL VOLUME 82.1 fl 80-96 [facility] l MEAN CORPUSCULAR HEMOGLOBIN 27.5 pg 27.0-31.0 [facility] MEAN CORPUSCULAR HGB CONC 33.5 g/dl 32.0-36.0 [facility] RED CELL DISTRIBUTION WIDTH 16.4 % 10.0-14.5 H [facility] PLATELET COUNT 130 K/mm3 172-[address] [facility] MEAN PLATELET VOLUME 11.1 fl 9.0-13.0 [facility] GRAN % 59.9 % 50-80.[address] [facility] IG% 0.3 % 0.0-0.[address] [facility] LYMPH % 31.2 % 25.0-50.[address] [facility] MONO % 7.1 % 2.0-10.0 [facility] EOS % 1.4 % 0-5.[address] [facility] BASO % 0.1 % 0.0-2.[address] [facility] GRAN # 5.3 K/mm3 2.0-8.[address] [facility] IG# 0.0 K/mm3 0.0-0.[address] [facility] LYMPH # 2.8 K/mm3 1.0-5.[address] [facility] MONO # 0.6 K/mm3 0.10-1.[address] [facility] EOS # 0.1 K/mm3 0.0-0.[address] [facility] BASO # 0.0 K/mm3 0.0-0.[address] [facility] ID Date Data Source [id number] 07/21/2019 03:01:00 PM EST [facility] l DATE OF EXAMINATION: 07/21/2019 14:40 ES [...] (finding) completed Current non-drinker of alcohol (finding) [facility] Tobacco use and exposure 07/06/2020 12:00:00 AM EST Never used co mpleted Never used [facility] Cigarette pack-years 07/06/2020 12:00:00 AM EST UNK [facility] Cigarettes smoked current (pack per day) - Reported 07/06/20 12:00:00 AM EST UNK [facility] Smoking 07/06/2020 12:00:00 AM EST Current every day smoker co mpleted Current every day smoker [facility] Vital Signs ID Date Data Source [id number] 09/10/2020 08:14:00 PM EST [facility] Name Value Range Interpretation Code Description Data Source(s) WEIGHT 88.3 kilos 88.3 kilos [facility] al HEIGHT 177.8 centimeters 177.8 centimeters [facility] ID Date Data Source [id number] 07/14/2020 03:31:42 PM [facility] Name Value Range Interpretation Code Description Data Source(s) WEIGHT RECORDED 190.26 lb 190.26 lb [facility] Body height Measured 68 in 68 in [facility] TRANSFER FROM [facility] Patient Treatment Plan of Care Planned Activity Planned Date Details Description Data Source (s) Aspirin 81 MG Delayed Release Oral Tablet 07/10/2020 12:00:00 AM [facility] Magnesium Oxide 400 MG Oral Tablet 07/10/2020 12:00:00 AM [facility] potassium phosphate 155 MG / Sodium Phos phate, Dibasic 852 MG / Sodium Phosphate, Monobasic 130 MG Oral Tablet 07/10/2020 12:00:00 AM [facility] pantoprazole 40 MG Delayed Release Oral Tablet 07/10/2020 12:00:00 AM [facility] Hydroxyzine Hydrochloride 25 MG Oral Tablet 07/10/2020 12:00:00 AM [facility] maalox/lidocaine/diphenhydrAMINE 1:1:1 SWISH & SWAL or al suspension 07/10/2020 12:00:00 AM [facility] Folic Acid 1 MG Oral Tablet 07/10/2020 12:00:00 AM [facility] Thiamine 100 MG Oral Tablet 07/10/2020 12:00:00 AM [facility] Lisinopril 10 MG Oral Tablet 07/10/2020 12:00:00 AM [facility] vancomycin 50 mg/mL PO SOLN oral solution 07/10/2020 12:00:[address] [facility] fentaNYL (SUBLIMAZE) 100 MCG/2ML (PF) injection 07/06/2020 01:37:47 PM [facility] Capsaicin 1 MG/ML Topical Cream 06/24/2019 12:00:[address] [facility] Aspirin 325 MG Oral Tablet U [facility] Lisinopril [address] [facility] Hydroxyzine Hydrochloride [address] [facility] Indomethacin (INDOCIN PO) [facility] Esomeprazole 20 MG Delayed Release Oral Capsule [facility] Atenolol [address] [facility]
[2020-09-13 01:28] LABS: ETHYL ALCOHOL (ETHANOL) 0.222 % (0.000-0.010)
--- NOTE | 2020-09-13 01:28 | REPVR ---
PROCEDURE INFORMATION: Exam: XR Chest, 1 View Exam date and time: 09/13/2020 12:58 AM Age: 55 years old Clinical indication: Screening exam; Other screening; Patient HX: + covid; Additional info: Coronavirus workup TECHNIQUE: Imaging protocol: XR of the chest Views: 1 view. COMPARISON: NC Chest, 1 view 2019-03-22 12:24 FINDINGS: Lungs: Lingular consolidation. Scattered mild left lung opacities. Pleural space: Unremarkable. No pleural effusion. No pneumothorax. Heart/Mediastinum: Unremarkable. No cardiomegaly. Bones/joints: Unremarkable. IMPRESSION: 1. Lingular consolidation. 2. Scattered mild left lung opacities. Electronically signed by: Michael Sanabria On 09/13/2020 01:28:49 AM
[2020-09-13] MEDS ORDERED: ISOVUE-370 76% 100ML VIAL As Ordered ONE (01:37)
[2020-09-13] MEDS: COMBIVENT RESPIMAT 100-20MCG INHALER 4GM INH SCH ×3 (01:43→02:52)
--- NOTE | 2020-09-13 02:56 | REPVR ---
PROCEDURE INFORMATION: Exam: CT Angiography Chest With Contrast Exam date and time: 09/13/2020 1:31 AM Age: 55 years old Clinical indication: Cough and shortness of breath; Additional info: Cough, SOB, covid TECHNIQUE: Imaging protocol: Computed tomographic angiography of the chest with intravenous contrast. 3D rendering (Not supervised by radiologist): MIP and/or 3D reconstructed images were created by the technologist. Radiation optimization: All CT scans at this facility use at least one of these dose optimization techniques: automated exposure control; mA and/or kV adjustment per patient size (includes targeted exams where dose is matched to clinical indication); or iterative reconstruction. Contrast material: ISO; Contrast volume: 75 ml; Contrast route: INTRAVENOUS (IV); COMPARISON: CT ANGIO CHEST 03/22/2019 2:59 PM FINDINGS: Pulmonary arteries: Negative for pulmonary emboli. Aorta: Unremarkable. No aortic aneurysm. No aortic dissection. Tracheobronchial tree: Diffuse bronchial wall thickening. Lungs: Dense consolidations in the left lower lobe with multiple cavitations. Multifocal other smaller areas of consolidations and cavitations bilaterally. Pleural space: Moderate left pleural effusion. No pneumothorax. Heart: Unremarkable. No cardiomegaly. No pericardial effusion. Lymph nodes: Multiple small mediastinal nodes. Mildly enlarged gastroesophageal nodes. Multiple small upper abdominal nodes. Gallbladder and bile ducts: Status post cholecystectomy. Spleen: Mild splenomegaly. Bones/joints: Unrema healing fracture of the right 5th rib anteriorly. Soft tissues: Unremarkable. IMPRESSION: 1. Negative for pulmonary emboli. 2. Multifocal consolidations and cavitations. Findings suspicious for bacterial pneumonia versus TB versus fungal pneumonia. 3. Imaging features are atypical or uncommonly reported for COVID-19 pneumonia. Alternative diagnoses should be considered. 4. Diffuse bronchial wall thickening. 5. Moderate left pleural effusion. 6. Lymphadenopathy as described. New from prior. 7. Mild splenomegaly. Unchanged from prior. REFERENCES: Rodrick Hicks, et al., [employer] Society of [place] Expert Consensus Statement on Reporting Chest CT Findings Related to COVID-19. Endorsed by the Society of [employer]iology, the [place] [employer], and [employer], Oct 2019. Electronically signed by: Robel Ty On 09/13/2020 02:56:27 AM
[2020-09-13] MEDS ORDERED: PIPERACILLIN/TAZOBACTAM SOD 3.375 GM in D5W MINI-BAG PLUS 50 ML IV ONE (03:15)
[2020-09-13] MEDS ORDERED: KETOROLAC 30 MG/ML 1ML VIAL IV ONE (03:15)
[2020-09-13] MEDS ORDERED: NS 1,000 ML IV ONE (03:15)
[2020-09-13] MEDS ORDERED: OMEP-218 PO (03:18)
[2020-09-13] MEDS ORDERED: TRIA1CR80 TOP (03:18)
[2020-09-13] MEDS ORDERED: FLUO20CA22 PO (03:18)
[2020-09-13] MEDS ORDERED: CARV12.5 PO (03:18)
[2020-09-13] MEDS ORDERED: ATOR80TA59 PO (03:18)
[2020-09-13] MEDS ORDERED: QUET100T2 PO (03:18)
[2020-09-13] MEDS ORDERED: FLOM0.4C39 PO (03:18)
[2020-09-13] MEDS ORDERED: HYDR50TA70 PO (03:18)
[2020-09-13] MEDS ORDERED: FURO40TA2 PO (03:24)
[2020-09-13] MEDS ORDERED: TRIAMCINOLONE ACET 0.1% CREAM 80 GM TOP PRN ×2 (03:45→04:00)
[2020-09-13] MEDS ORDERED: LORazepam 2 MG TAB PO PRN (03:45)
[2020-09-13] MEDS ORDERED: ENOXAPARIN 100MG/1ML SYRINGE (J1650 PER 10MG) SC SCH ×2 (03:45→09:00)
--- OUTSIDE RECORDS SUMMARY | 2020-09-13 03:51 | CCD ---
Author Author [facility] Address Unknown Phone Unavailable Care Team Providers Care Accounting Reconciliation Clerk Name Role Phone ADAMS, VALERIY MIKA RPA-C [...] ADAMS, VALERIY MIKA RPA-C Unavailable Unavailable ADAMS, AVLERIY MIKA RPA-C Unavailable Unavailable ADAMS, VALERIY MIKA [...] TODD ELKINS DO Unavailable Unavailable TRI BRENNAN JORDAN WORKER-C, MSN Unavailable Unavailab TRI Hilario JORDAN WORKER-C, MSN Unavailable Unavailab le TRI BRENNAN JORDAN WORKER-C, MSN Unavailable Unavailab TIR Hilario JORDAN WORKER-C, MSN Unavailable Unavailab TRI Hilario JORDAN WORKER-C, MSN Unavailable Unavailab le BRENNAN, TRI ANNE-MARIE JORDAN WORKER-C, MSN Unavailable Unavailab le BRENNAN, TRI ANNE-MARIE JORDAN WORKER-C, MSN Unavailable Unavailab le BRENNAN, TRI ANNE-MARIE JORDAN WORKER-C, MSN Unavailable Unavailab le BRENNAN, TRI ANNE-MARIE JORDAN WORKER-C, MSN Unavailable Unavailab le BRENNAN, TRI ANNE-MARIE JORDAN WORKER-C, MSN Unavailable Unavailab le BRENNAN, TRI ANNE-MARIE JORDAN WORKER-C, MSN Unavailable Unavailab le BRENNAN, TRI ANNE-MARIE JORDAN WORKER-C, MSN Unavailable Unavailab le BRENNAN, TRI ANNE-MARIE JORDAN WORKER-C, MSN Unavailable Unavailab le BRENNAN, TRI ANNE-MARIE JORDAN WORKER-C, MSN Unavailable Unavailab le BRENNAN, TRI ANNE-MARIE JORDAN WORKER-C, MSN Unavailable Unavailab le BRENNAN, TRI ANNE-MARIE JORDAN WORKER-C, MSN Unavailable Unavailab le BRENNAN, TRI ANNE-MARIE JORDAN WORKER-C, MSN Unavailable Unavailab le BRENNAN, TRI ANNE-MARIE JORDAN WORKER-C, MSN Unavailable Unavailab le BRENNAN, TRI ANNE-MARIE JORDAN WORKER-C, MSN Unavailable Unavailab le BRENNAN, TRI ANNE-MARIE JORDAN WORKER-C, MSN Unavailable Unavailab le BRENNAN, TRI ANNE-MARIE JORDAN WORKER-C, MSN Unavailable Unavailab le BRENNAN, TRI ANNE-MARIE JORDAN WORKER-C, MSN Unavailable Unavailab le BRENNAN, TRI ANNE-MARIE JORDAN WORKER-C, MSN Unavailable Unavailab le BRENNAN, TRI ANNE-MARIE JORDAN WORKER-C, MSN Unavailable Unavailab le BRENNAN, TRI ANNE-MARIE JORDAN WORKER-C, MSN Unavailable Unavailab le BRENNAN, TRI ANNE-MARIE JORDAN WORKER-C, MSN Unavailable Unavailab le BRENNAN, TRI ANNE-MARIE JORDAN WORKER-C, MSN Unavailable Unavailab le BRENNAN, TRI ANNE-MARIE JORDAN WORKER-C, MSN Unavailable Unavailab le BRENNAN, TRI ANNE-MARIE JORDAN WORKER-C, MSN Unavailable Unavailab le BRENNAN, TRI ANNE-MARIE JORDAN WORKER-C, MSN Unavailable Unavailab le BRENNAN, TRI ANNE-MARIE JORDAN WORKER-C, MSN Unavailable Unavailab le BRENNAN, TRI ANNE-MARIE JORDAN WORKER-C, MSN Unavailable Unavailab le BRENNAN, TRI ANNE-MARIE JORDAN WORKER-C, MSN Unavailable Unavailab le BRENNAN, TRI ANNE-MARIE JORDAN WORKER-C, MSN Unavailable Unavailab le BRENNAN, TRI ANNE-MARIE JORDAN WORKER-C, MSN Unavailable Unavailab le BRENNAN, TRI ANNE-MARIE JORDAN WORKER-C, MSN Unavailable Unavailab le BRNENAN, TRI ANNE-MARIE JORDAN WORKER-C, MSN Unavailable Unavailab le BRENNAN, TRI ANNE-MARIE JORDAN WORKER-C, MSN Unavailable Unavailab le BRENNAN, TRI ANNE-MARIE JORDAN WORKER-C, MSN Unavailable Unavailab le BRENNAN, TRI ANNE-MARIE JORDAN WORKER-C, MSN Unavailable Unavailab le BRENNAN, TRI ANNE-MARIE JORDAN WORKER-C, MSN Unavailable Unavailab le BRENNAN, TRI ANNE-MARIE JORDAN WORKER-C, MSN Unavailable Unavailab le Kat, Mu-Ism Unavailable Unavailable Kat, Mu-Ism Unavailable Unavailable Kat, Mu-Ism Unavailable Unavailable [place], Mu-Ism Unavailable Unavailable Kat, Mu-Ism Unavailable Unavailable MITALI, BILLY EDITA PA Unavailable [...] Unavailable MITALI, BILLY EDITA PA Unavailable Unavailable IMTALI, BILLY EDITA PA Unavailable Unavailable MITALI, BILLY EDITA PA Unavailable Unavailable MITALI, BILLY EDITA PA Unavailable Unavailable MITALI, BILLY DEITA PA Unavailable Unavailable MITALI, BILLY EDITA PA [...] Unavailable Unavailable SHAHRAMKurt LOPEZ MD Unavailable Unavailable HSAHRAMKurt LOPEZ MD Unavailable Unavailable SHAHRAMKurt LOPEZ MD [...] Unavailable MITALI, BILLY EDITA PA Unavailable Unavailable MIATLI, BILLY EDITA PA Unavailable Unavailable MITALI, BILLY [...] L NORMA PA Unavailable Unavailable Edick, Whitney FACULTY MEMBER Unavailable Unavailable Edick, Whitney FACULTY MEMBER Unavailable Unavailable Edick, Whitney FACULTY MEMBER Unavailable Unavailable Edick, Whitney FACULTY MEMBER Unavailable Unavailable Edick, Whitney FACULTY MEMBER Unavailable Unavailable Edick, Whitney FACULTY MEMBER Unavailable Unavailable Edick, Whitney FACULTY MEMBER Unavailable Unavailable Edick, Whitney FACULTY MEMBER Unavailable Unavailable Edick, Whitney FACULTY MEMBER Unavailable Unavailable Edick, Whitney FACULTY MEMBER Unavailable Unavailable Edick, Whitney FACULTY MEMBER Unavailable Unavailable Edick, Whitney FACULTY MEMBER Unavailable Unavailable BRENNAN, TRI ANNE-MARIE JORDAN WORKER-C, MSN Unavailable Unavailab le BRENNAN, TRI ANNE-MARIE JORDAN WORKER-C, MSN Unavailable Unavailab le BRENNAN, TRI ANNE-MARIE JORDAN WORKER-C, MSN Unavailable Unavailab le BRENNAN, TRI ANNE-MARIE JORDAN WORKER-C, MSN Unavailable Unavailab le BRENNAN, TRI ANNE-MARIE JORDAN WORKER-C, MSN Unavailable Unavailab le BRENNAN, TRI ANNE-MARIE JORDAN WORKER-C, MSN Unavailable Unavailab le BRENNAN, TRI ANNE-MAREI JORDAN WORKER-C, MSN Unavailable Unavailab le BRENNAN, TRI ANNE-MARIE JORDAN WORKER-C, MSN Unavailable Unavailab le BRENNAN, TRI ANNE-MARIE JORDAN WORKER-C, MSN Unavailable Unavailab le BRENNAN, TRI ANNE-MARIE JORDAN WORKER-C, MSN Unavailable Unavailab le BRENNAN, TRI ANNE-MARIE JORDAN WORKER-C, MSN Unavailable Unavailab le BRENNAN, TRI ANNE-MARIE JORDAN WORKER-C, MSN Unavailable Unavailab le BRENNAN, TRI ANNE-MARIE JORDAN WORKER-C, MSN Unavailable Unavailab le BRENNAN, TRI ANNE-MARIE JORDAN WORKER-C, MSN Unavailable Unavailab le BRENNAN, TRI ANNE-MARIE JORDAN WORKER-C, MSN Unavailable Unavailab le BRENNAN, TRI ANNE-MARIE JORDAN WORKER-C, MSN Unavailable Unavailab le BRENNAN, TRI ANNE-MARIE JORDAN WORKER-C, MSN Unavailable Unavailab le BRENNAN, TRI ANNE-MARIE JORDAN WORKER-C, MSN Unavailable Unavailab le BRENNAN, TRI ANNE-MARIE JORDAN WORKER-C, MSN Unavailable Unavailab le BRENNAN, TRI ANNE-MARIE JORDAN WORKER-C, MSN Unavailable Unavailab le BRENNAN, TRI ANNE-MARIE JORDAN WORKER-C, MSN Unavailable Unavailab le BRENNAN, TRI ANNE-MARIE JORDAN WORKER-C, MSN Unavailable Unavailab le BRENNAN, TRI ANNE-MARIE JORDAN WORKER-C, MSN Unavailable Unavailab le BRENNAN, TRI ANNE-MARIE JORDAN WORKER-C, MSN Unavailable Unavailab le BRENNAN, TRI ANNE-MARIE JORDAN WORKER-C, MSN Unavailable Unavailab le BRENNAN, TRI ANNE-MARIE JORDAN WORKER-C, MSN Unavailable Unavailab le BRENNAN, TRI ANNE-MARIE JORDAN WORKER-C, MSN Unavailable Unavailab le BRENNAN, TRI ANNE-MARIE JORDAN WORKER-C, MSN Unavailable Unavailab le BRENNAN, TRI ANNE-MARIE JORDAN WORKER-C, MSN Unavailable Unavailab le BRENNAN, TRI ANNE-MARIE JORDAN WORKER-C, MSN Unavailable Unavailab le BRENNAN, TRI ANNE-MARIE JORDAN WORKER-C, MSN Unavailable Unavailab le BRENNAN, TRI ANNE-MARIE JORDAN WORKER-C, MSN Unavailable Unavailab le BRENNAN, TRI ANNE-AMRIE JORDAN WORKER-C, MSN Unavailable Unavailab le BRENNAN, TRI ANNE-MARIE JORDAN WORKER-C, MSN Unavailable Unavailab le BRENNAN, TRI ANNE-MARIE JORDAN WORKER-C, MSN Unavailable Unavailab le BRENNAN, TRI ANNE-MARIE JORDAN WORKER-C, MSN Unavailable Unavailab le BRENNAN, TRI ANNE-MARIE JORDAN WORKER-C, MSN Unavailable Unavailab le BRENNAN, TRI ANNE-MARIE JORDAN WORKER-C, MSN Unavailable Unavailab le BRENNAN, TRI ANNE-MARIE JORDAN WORKER-C, MSN Unavailable Unavailab le BRENNAN, TRI ANNE-MARIE JORDAN WORKER-C, MSN Unavailable Unavailab le BRENNAN, TRI ANNE-MARIE JORDAN WORKER-C, MSN Unavailable Unavailab le BRENNAN, TRI ANNE-MARIE JORDAN WORKER-C, MSN Unavailable Unavailab le Melissa BAXTER [...] PA Unavailable Unavailable Katarzyna Haas MD Unavailable [email or web address] Katarzyna Haas MD Unavailable [email or web address] Katarzyna Haas MD Unavailable [email or web address] Katarzyna Haas MD Unavailable [email or web address] Katarzyna Haas MD Unavailable [email or web address] Katarzyna Haas MD Unavailable [email or web address] Katarzyna Haas MD Unavailable [email or web address] Gisselle Segura MD Unavailable Unavailable Gisselle Segura [...] Gisselle Cade MD Unavailable Unavailable Colton, Gisselle Caed MD Unavailable Unavailable Colton, Gisselle Cade MD [...] L NORMA PA Unavailable Unavailable DOROTHY, L NOMRA PA Unavailable Unavailable DOROTHY, L NORMA PA [...] is protected by Article 27-F of the [facility] Public Health law. If you continue you may have access to information: Regarding HIV / AIDS; Provided by facilities licensed or operated by the [facility] Office of Mental Health; or Provided by the [facility] Office for People With Developmental Disabilities. If such information is present, then the following [facility] mandated warning applies: This information has [...] law may result in a fine or mcfp sentence or both. A general authorization for the release of medical or other information is NOT sufficient authorization for further disc losure. Family History Family Member Name Family Member Gender Family Member Status Date o f Status Description Data Source(s) Unknown Male Problem [facility] ([facility]) Encounters Encounter Providers Location Date Indications Data Source(s ) Inpatient Attender: TODD ELKINS DOAttender : TODD ELKINS DOAttender: AMADO BAXTER MDAttender: AMADO BAXTER MDAdmitter: AMADO BAXTER MD [id number] 08/31/2020 03:32:00 AM [facility] - 09/04/2020 01:30:00 PM [facility] Patient discharged. Emergency Attender: NORMA MILLER EMERGENCY ROOM-ER 03:59:00 PM [facility] - 08/30/2020 11:50:00 PM [facility] Patient discharged. Outpatient Attender: NORMA DE LA CRUZ PAConsultant: [facility] [id number] 08/30/2020 03:35:00 PM [facility] Outpatient Attender: ESTHER PACHECO . [id number] 07/06/2020 02:28:33 PM [facility] Outpatient Attender: EDITA JASMINE PAConsultant: [facility] [id number] 07/06/2020 06:41:00 AM [facility] Inpatient Attender: Katarzyna Liuder: KASSIE BROOKS MDAttender: ALINA NORMAN MDAdmitter: KASSIE GOLDJUDSON MDReferrer: ALINA NORMAN MD [id number] 07/06/2020 12:00:00 AM EST - 07/10/2020 04:00:00 PM ES T Noninfective gastroenteritis and colitis, unspecified [facility] Noninfective gastroenteritis and colitis , unspecified Patient discharged. Emergency Attender: EDITA MILLER EMERGENCY ROOM-ER 07/05/2020 08:45:00 PM EST - 07/06/2020 12:35:00 AM [facility] Patient discharged. Outpatient Attender: ADDISON JOY 08/09/2019 01:11:00 PM ES T [facility] Wellness Program [facility] 08/09/2019 12:00:00 AM EST eCW1 ([facility]) [facility] 08/03/2019 12:00:00 AM EST eCW1 ([facility]) [facility] 08/02/2019 12:00:00 AM EST eCW1 ([facility]) [facility] 08/02/2019 12:00:00 AM EST eCW1 ([facility]) [facility] 08/02/2019 12:00:00 AM EST eCW1 ([facility]) [facility] 07/28/2019 12:00:00 AM EST eCW1 ([facility]) Emergency Attender: EDITA Wintererrer: ANNE-MARIE MCDERMOTT, MSN 07/24/2019 05:33:00 PM EST - 07/24/2019 06:15:00 PM [facility] Patient discharged. Outpatient Attender: EDITA JASMINE PAConsultant: [facility] [id number] 07/21/2019 03:15:00 PM [facility] Emergency Attender: EDITA Valentiner: Damaso MCDERMOTT, MSN EMERGENCY ROOM-ER 07/21/2019 02:23:00 PM EST - 07/21/2019 03:58:00 PM [facility] Patient discharged. Outpatient Attender: JACOB PEDERSENConsul [facility] [id number] 07/01/2019 11:00:00 AM EDT [facility] Outpatient Attender: JACOB PEDERSEN 07/01/2019 1 0:52:00 AM [facility] Outpatient Attender: ADDISON JOY 06/28/2019 12:50:00 PM [facility] Outpatient Attender: JACOB PEDERSEN 05/11/2019 0 1:56:00 PM [facility] Outpatient Attender: ADDISON JOY 05/10/2019 01:15:00 PM [facility] Emergency Attender: UCHE Wintererrer : JACOB PEDERSEN EMERGENCY ROOM-ER 04/21/2019 09:35:00 AM EDT - 04/21/2019 02:56:00 PM [facility] Patient discharged. Outpatient Attender: ADDISON JOY 03/29/2019 09:12:00 AM [facility] Outpatient Attender: ANNE-MARIE MCDERMOTT MSNReferr er: ANNE-MARIE MCDERMOTT, JACOB 03/19/2019 09:00:00 AM [facility] Outpatient Attender: ANNE-MARIE MCDERMOTT MSNReferr er: JACOB PEDERSEN EMERGENCY ROOM-[facility] 03/18/2019 01:09:00 PM EDT - 03/18/2019 01:09:00 PM [facility] Outpatient Attender: MIKA LUNDCReferrer: JACOB OTTO EMERGENCY ROOM-LAB REF 03/05/2019 04:18:00 PM EDT - 03/05/2019 04:18:00 PM [facility] Outpatient Attender: MIKA HILL 03/05/2019 02:50:00 PM [facility] Emergency Attender: EDITA GALLARDOeferrer: JACOB MATT EMERGENCY ROOM-ER 03/03/2019 05:24:00 PM EDT - 03/03/2019 05:50:00 PM [facility] Emergency Attender: EDITA GALLARDOeferrer: JACOB MATT EMERGENCY ROOM-ER 03/02/2019 06:19:00 PM EDT - 03/02/2019 08:33:00 PM [facility] Outpatient Attender: JACOB PEDERSEN 02/05/2019 0 2:40:00 PM [facility] Outpatient Attender: Whitney Alicea NP 12/11/2018 02:30:00 P [facility] Outpatient Attender: Whitney Alicea NP 11/13/2018 02:20:00 [facility] Emergency Attender: YOSELIN OWENSReferrer: JACOB LEHMAN EMERGENCY ROOM-ER 10/27/2018 12:47:00 PM [facility] - 10/27/2018 10:50:00 PM [facility] Outpatient Attender: Whitney Alicea NP 10/16/2018 07:53:00 A [facility] Outpatient Attender: ANNE-MARIE MCDERMOTT MSNConsul tant: [facility] [id number] 08/04/2018 09:30:00 AM [facility] Outpatient Attender: GRETA OMALLEY MDReferrer: ANNE-MARIE MCDERMOTT, MSN 03/24/2018 01:00:00 PM EDT - 03/24/2018 01:00:00 PM [facility] Outpatient Attender: Rayo Segura MDReferrer: JACOB MARTINEZ 12/16/2017 07:42:00 AM EDT - 12/16/2017 07:42:00 AM [facility] Emergency Attender: SONAM Wintererrer: JACOB LEHMAN EMERGENCY ROOM-ER 04/30/2017 11:36:00 AM EDT - 04/30/2017 03:25:00 PM [facility] Outpatient Attender: JACOB PEDERSENReferr er: JACOB PEDERSEN EMERGENCY ROOM-ULTRA 04/02/2017 08:14:00 AM EDT - 04/02/2017 08:14:00 AM [facility] Outpatient Attender: Rayo Segura MD 11/05/2016 11:12: 00 AM [facility] Emergency Attender: Kalia Stephens EMERGENCY ROOM-ER 11/01 04:58:00 PM EDT - 11/28/2014 05:50:00 PM [facility] Emergency Attender: FREDI MILLER 10:23:00 AM EDT - 02/12/2014 11:25:00 AM [facility] Medications Medication Brand Name Start Date Product Form Dose Route Admi nistrative Instructions Pharmacy Instructions Status Indications Reaction Description Data Source(s) Alprazolam 0.25 MG Oral Tablet alprazolam (XANAX) tabl et 0.5 mg alprazolam (XANAX) tablet 0.5 mg 07/10/2020 09:30:00 AM EST 0.5 mg Oral completed 0.5 mg, Oral, Once, Fri07/10/20 at 0930, For 1 dose [facility] Medication administered onsite 0.4 ML Enoxaparin sodium 100 MG/ML Prefi lled Syringe enoxaparin sodium (LOVENOX) injection 40 mg enoxaparin sodium (LOVENOX) injection 40 mg 07/10/2020 09:00:00 AM EST 40 mg Subcutaneous active 40 mg, Subcutaneous, Daily Standard, First dose on Fri07/10/20 at 0900, For 30 days [facility] Medication administered onsite potassium phosphate 155 [...] mEq), and potassium 45 mg (1.1 mEq)
[facility] Medication administered onsite magnesium sulfate in dextrose 5 % infusion (premix) 1 g [id number] 07/10/2020 08:00:00 AM EST 1 g Intravenous completed 1 g, Intravenous, Administer over 60 Minutes, Once, Fri07/10/20 at 0800, For 1 dose [facility] Medication administered onsite potassium phosphate 155 [...] mEq), and potassium 45 mg (1.1 mEq)
[facility] Medication administered onsite potassium phosphate 155 MG / Sodium Phos phate, Dibasic 852 MG / Sodium Phosphate, Monobasic 130 MG Oral Tablet [facility] [phone] MG Oral Tablet (K PHOS NEUTRAL) [facility] [phone] MG Oral Tablet (K PHOS NEUTRAL) 07/10/2020 12:00:00 AM EST 250 mg Oral active Take 1 tablet by juliann th Two Times Daily for 7 days [facility] Magnesium Oxide 400 MG Oral Tablet Magne sium Oxide 400 (241.3 Mg) MG Oral Tablet (MAG-OX) Magnesium Oxide 400 (241.3 Mg) MG Oral Tablet (MAG-OX) 07/10/2020 12:00:00 AM EST 400 mg Oral active Take 1 tablet by mouth daily for 7 days [facility] pantoprazole 40 MG Delayed Release Oral Tablet Pantoprazole Sodium 40 MG Oral Tablet Delayed Release (PROTONIX) Pantoprazole Sodium 40 MG Oral Tablet De layed Release (PROTONIX) 07/10/2020 12:00:00 AM EST 40 mg Oral active Take 1 tablet by mouth Two Times Daily [facility] Hydroxyzine Hydrochloride 25 MG Oral Tab let hydrOXYzine HCl 25 MG Oral Tablet (ATARAX) hydrOXYzine HCl 25 MG Oral Tablet (ATARAX) 07/10/2020 12:00: 00 AM EST 25 mg Oral active Take 1 tablet by mouth every 6 (six) hours as needed for Anxiety [facility] maalox/lidocaine/diphenhydrAMINE 1:1:1 SWISH & SWAL oral [facility] 07/10/2020 12:00:00 AM EST 10 mL Swish & Spit active Swish and spit 10 mLs Four times daily as needed (throat pain)Pharmacy compound: Maalox, lidocaine viscous 2 %, Benadryl 12.5 mg/5 mL [facility] Folic Acid 1 MG Oral Tablet Folic Acid 1 MG Oral Table t (FOLVITE) Folic Acid 1 MG Oral Tablet (FOLVITE) 07/10/2020 12:00:00 AM EST 1 mg Oral active Take 1 tablet by mouth daily [facility] Thiamine 100 MG Oral Tablet Thiamine HCl 100 MG Oral T ablet (B-1) Thiamine HCl 100 MG Oral Tablet (B-1) 07/10/2020 12:00:00 AM EST 100 mg Oral active Take 1 tablet by mouth daily [facility] Lisinopril 10 MG Oral Tablet Lisinopril 10 MG Oral Tab let (ZESTRIL) Lisinopril 10 MG Oral Tablet (ZESTRIL) 07/10/2020 12:00:00 AM EST 10 mg Oral active Take 1 tablet by mouth daily [facility] vancomycin 50 mg/mL PO SOLN oral solution [id number] 07/10/2020 12:00:00 AM EST 125 mg Oral active Take 2.5 mLs by mouth every 6 (six) hours for 7 days [facility] Aspirin 81 MG Delayed Release Oral Table t Aspirin 81 MG Oral Tablet Delayed Release Aspirin 81 MG Oral Tablet Delayed Release 07/10/2020 12:00:00 AM EST 81 mg Oral active Take 1 tablet by mouth reva mckeon [facility] pantoprazole 40 MG Delayed Release Oral Tablet pantoprazole (PROTONIX) EC tablet 40 mg pantoprazole (PROTONIX) EC tablet 40 mg 07/09/2020 09:00:[address] 40 mg Oral active 40 mg, Ora l, 2 Times Daily, First dose on 07/09/20 at 2100, For 30 days
Do not crush or chew
[facility] Medication administered onsite Monobasic potassium phosphate [...] mg and potassium 144 mg (3.7 mEq)
[facility] Medication administered onsite Alprazolam 0.25 MG Oral Tablet alprazolam (XANAX) tabl et 0.5 mg alprazolam (XANAX) tablet 0.5 mg 07/09/2020 03:15:00 PM EST 0.5 mg Oral completed 0.5 mg, Oral, Once, 07/09/20 at 1515, For 1 dose [facility] Medication administered onsite Hydroxyzine Hydrochloride 25 MG Oral Tablet hydrOXYzin e (ATARAX) tablet 25 mg hydrOXYzine (ATARAX) tablet 25 mg 07/09/2020 09:00:00 AM EST 25 mg Oral active 25 mg, Oral, Every 6 hours PRN, Anxiety, Starting 07/09/20 at 0900, For 48 hours [facility] Medication administered onsite 50 ML Magnesium Sulfate 40 MG/ML Injecti on magnesium sulfate infusion 2 g/50 mL (premix) magnesium sulfate infusion 2 g/50 mL (premix) 07/09/20 05:45:00 AM EST 2 g Intravenous completed 2 g, Intravenous, Administer over 60 Minutes, Once, 07/09/20 at 0545, For 1 dose [facility] Medication administered onsite potassium chloride 20 mEq in 100 mL IVPB (premix) [id number] 07/09/2020 05:00:00 AM EST 20 meq Intravenous completed 20 mEq, Intravenous, Administer over 60 Minutes, Every 1 hour, First dose on 07/09/20 at 0500, For 2 doses [facility] Medication administered onsite Diazepam 5 MG [...] the CIWA score. Assess once patient awakens.
[facility] Medication administered onsite sodium phosphate infusion [...] severe hypophosphatemia.
For central line use only.
[facility] Medication administered onsite potassium phosphate infusion 6 mmol/100 mL (premix) 07/08/2020 01:45:00 PM EST 6 mmol Intravenous completed 6 mmol, Intravenous, at 25 mL/hr, Once, 07/08/20 at 1345, For 1 dose
Slower infusion rates (e.g. over 4 hours) are recommended in patients with renal impairment and/or less severe hypophosphatemia. Product contains 8.8 mEq of potassium.
[facility] Medication administered onsite maalox/lidocaine/diphenhydrAMINE (RADIAT ION MIXTURE) 1:1:1 oral suspension 10 mL 07/08/2020 09:45:00 AM EST 10 mL Swish & Spit acti ve 10 mL, Swish & Spit, Four Times Daily-PRN, throat pain, Starting 07/08/20 at 0945, For 120 hours [facility] Medication administered onsite Hydroxyzine Hydrochloride 25 MG Oral Tablet hydrOXYzin e (ATARAX) tablet 25 mg hydrOXYzine (ATARAX) tablet 25 mg 07/08/2020 09:36:17 AM EST 25 mg Oral aborted 25 mg, Oral, Every 6 hours PRN, Anxiety, Starting 07/08/20 at 0936, For 697 hours [facility] Medication administered onsite 24 HR Nicotine 0.292 MG/HR Transdermal P atch nicotine (NICODERM CQ) 7 MG/24HR 1 patch nicotine (NICODERM CQ) 7 MG/24HR 1 patch 07/08/2020 09:00:00 AM EST 1 {patch} Transdermal active 1 patch, Transdermal, Administer over 24 Hours, Daily Standard, First dose on 07/08/20 at 0900, For 30 days [facility] Medication administered onsite potassium phosphate 155 [...] mEq), and potassium 45 mg (1.1 mEq)
[facility] Medication administered onsite 1 ML Lorazepam 2 MG/ML Injection LORazepam (ATIVAN) in jection 0.5 mg LORazepam (ATIVAN) injection 0.5 mg 07/08/2020 06:15:00 AM EST 0.5 mg Intrave nous completed 0.5 mg, Intravenous, Once, Sat 1 09/07/19 at 0615, For 1 dose [facility] Medication administered onsite potassium phosphate infusion 6 mmol/100 mL (premix) 07/08/2020 04:00:00 AM EST 6 mmol Intravenous completed 6 mmol, Intravenous, at 25 mL/hr, Once, 07/08/20 at 0400, For 1 dose
Slower infusion rates (e.g. over 4 hours) are recommended in patients with renal impairment and/or less severe hypophosphatemia. Product contains 8.8 mEq of potassium.
[facility] Medication administered onsite sodium phosphate infusion 6 mmol/100 mL (premix) 07/07 09:30:00 PM EST 6 mmol Intravenous completed 6 mmol, Intravenous, at 25 mL/hr, Once, 07/07/20 at 2130, For 1 dose
Slower infusion rate (e.g. over 4 to 6 hours) are recommended in patients with renal impairment and/or less severe hypophosp hatemia.
[facility] Medication administered onsite Nicotine 2 MG Chewing Gum nicotine polacrilex (NICORET TE) gum 2 mg nicotine polacrilex (NICORETTE) gum 2 mg 07/07/2020 03:18:13 PM EST 2 mg O ral active 2 mg, Oral, Every 2 hours PRN, Smoking cessation, Starting Fri07/07/20 at 1518, For 30 days [facility] Medication administered onsite maalox/lidocaine/diphenhydrAMINE (RADIAT ION MIXTURE) 1:1:1 oral suspension 10 mL 07/07/2020 03:17:47 PM EST 10 mL Swish & Spit abor tania 10 mL, Swish & Spit, 2 Times Daily PRN, throat pain, Starting Fri07/07/20 at 1517, For 30 days [facility] Medication administered onsite Thiamine 100 MG Oral Tablet thiamine (B-1) tablet 100 mg thiamine (B-1) tablet 100 mg 07/07/2020 02:45:00 PM EST 100 mg Oral active 100 mg, Oral, Daily Standard, First dose on Fri07/07/20 at 1445, For 30 days [facility] Medication administered onsite Folic Acid 1 MG Oral Tablet folic acid (FOLVITE) table t 1 mg folic acid (FOLVITE) tablet 1 mg 07/07/2020 02:45:00 PM EST 1 mg Oral active 1 mg, Oral, Daily Standard, First dose on Fri07/07/20 at 1445, For 30 days [facility] Medication administered onsite potassium phosphate 155 [...] mEq), and potassium 45 mg (1.1 mEq)
[facility] Medication administered onsite vancomycin (VANCOCIN) 50 mg/mL oral solution 125 mg [id number] 07/07/2020 11:00:00 AM EST 125 mg Oral active 125 mg, Oral, Every 6 hours, First dose on Fri07/07/20 at 1100, For 10 days
Indicated for severe C. difficile infection, defined as: WBC > 15,000 SCr > 1.5 times the premorbid level Hypotension or shock Ileus Megacolon
[facility] Medication administered onsite Hydroxyzine Hydrochloride 25 MG Oral Tablet hydrOXYzin e (ATARAX) tablet 25 mg hydrOXYzine (ATARAX) tablet 25 mg 07/07/2020 10:56:18 AM EST 25 mg Oral aborted 25 mg, Oral, Every 6 hours PRN, Itching, Starting Fri07/07/20 at 1056, For 30 days [facility] Medication administered onsite Atenolol 25 MG Oral Tablet atenolol (TENORMIN) tablet 100 mg atenolol (TENORMIN) tablet 100 mg 07/07/2020 09:00:00 AM EST 100 mg Oral abor tania 100 mg, Oral, Daily Standard, First dose on Fri07/07/20 at 0900, For 30 days
Check vital signs before administering
[facility] Medication administered onsite Lisinopril 10 MG Oral Tablet lisinopril (ZESTRIL) tabl et 10 mg lisinopril (ZESTRIL) tablet 10 mg 07/07/2020 09:00:00 AM EST 10 mg Oral active 10 mg, Oral, Daily Standard, First dose on Fri07/07/20 at 0900, For 30 days [facility] Medication administered onsite pantoprazole 4 MG/ML Injectable Solution pantoprazole (PROTONIX) injection 40 mg pantoprazole (PROTONIX) injection 40 mg 07/07/2020 09:00:00 AM EST 40 mg Intravenous aborted 40 mg, Intrav enous, 2 Times Daily, First dose on Fri07/07/20 at 0900, For 30 days [facility] Medication administered onsite Oxycodone Hydrochloride 5 [...] only) require Pain Service consultation and approval.
[facility] Medication administered onsite Oxycodone Hydrochloride 5 [...] only) require Pain Service consultation and approval.
[facility] Medication administered onsite buspirone hydrochloride 10 MG Oral Tablet busPIRone (B USPAR) tablet 10 mg busPIRone (BUSPAR) tablet 10 mg 07/07/2020 04:00:00 AM EST 10 mg O ral completed 10 mg, Oral, Once, Fri07/07/20 a t 0400, For 1 dose [facility] Medication administered onsite Famotidine 20 MG Oral Tablet famotidine (PEPCID) table t 20 mg famotidine (PEPCID) tablet 20 mg 07/07/2020 03:15:00 AM EST 20 mg Oral completed 20 mg, Oral, Once, Fri07/07/20 at 0315, For 1 dose [facility] Medication administered onsite Hydroxyzine Hydrochloride 10 MG Oral Tablet hydrOXYzin e (ATARAX) tablet 25 mg hydrOXYzine (ATARAX) tablet 25 mg 07/07/2020 03:00:00 AM EST 25 mg Oral completed 25 mg, Oral, Once, Fri07/07/20 a t 0300, For 1 dose [facility] Medication administered onsite Lactulose 667 MG/ML Oral Solution lactulose (CHRONULAC ) solution 30 mL lactulose (CHRONULAC) solution 30 mL 07/06/2020 05:00:00 PM EST 30 mL Oral aborted 30 mL, Oral, Three Times Da fawn Standard, First dose on Fri07/06/20 at 1700, For 30 days
Titrate to 2-3 bowel movements daily
[facility] Medication administered onsite thiamine (B-1) 500 mg in sodium chloride 0.9 % 50 mL IVPB 07/06/2020 05:00:00 PM EST 500 mg Intravenous aborted 500 mg, Intravenous, Administer over 30 Minutes, Three Times Daily Standard, First dose on Kiely 07/06/20 at 1700, For 5 days [facility] Medication administered onsite Benzocaine 15 MG / Menthol 3.6 MG Oral L ozenge benzocaine-menthol (CEPACOL) 15- 3.6 MG per lozenge 1 lozenge benzocaine-menthol (CEPACOL) 15-3.6 MG p er lozenge 1 lozenge 07/06/2020 04:12:51 PM EST 1 {lozenge} Mouth/Throat active 1 lozenge, Mouth/Throat, Every 2 hours PRN, Sore Throat, Starting Keily 07/06/20 at 1612, For 30 days [facility] Medication administered onsite Ceftriaxone 1000 MG Injection cefTRIAXone (ROCEPHIN) i nfusion 1 g (premix) cefTRIAXone (ROCEPHIN) infusion 1 g (premix) 07/06/2020 03:15:00 PM EST 1 g Intravenous aborted 1 g, Intraven ous, at 100 mL/hr, Every 24 hours, First dose on Keily 07/06/20 at 1515, For 3 days
Discouraged Uses: Empiric treatment of post-surgical meningitis (ceftazidime preferred)
[facility] Medication administered onsite fentaNYL (SUBLIMAZE) (PF) injection 50 mcg [id number] 07/06/2020 02:30:00 PM EST 50 ug Intravenous completed 50 mcg, Intravenous, Once, Keily 07/06/20 at 1430, For 1 dose [facility] Medication administered onsite fentaNYL (SUBLIMAZE) (PF) injection 50 mcg [id number] 07/06/2020 02:30:00 PM EST 50 ug Intravenous completed 50 mcg, Intravenous, Once, Keily 07/06/20 at 1430, For 1 dose [facility] Medication administered onsite 2 ML Midazolam 1 MG/ML Injection midazolam (PF) (VERSE D) injection midazolam (PF) (VERSED) injection 07/06/2020 01:57:00 PM EST completed Code/Trauma Medication, Starting Keily 07/06/20 at 1357 [facility] Medication administered onsite 2 ML Midazolam 1 MG/ML Injection midazolam (PF) (VERSE D) injection midazolam (PF) (VERSED) injection 07/06/2020 01:55:00 PM EST completed Code/Trauma Medication, Starting Keily 07/06/20 at 1355 [facility] Medication administered onsite fentaNYL (SUBLIMAZE) (PF) injection [id number] 07/06/2020 01:52:00 PM EST completed Code/Trauma Medicati on, Starting Keily 07/06/20 at 1352 [facility] Medication administered onsite 2 ML Midazolam 1 MG/ML Injection midazolam (PF) (VERSE D) injection midazolam (PF) (VERSED) injection 07/06/2020 01:52:00 PM EST completed Code/Trauma Medication, Starting Keily 07/06/20 at 1352 [facility] Medication administered onsite fentaNYL (SUBLIMAZE) 100 MCG/2ML (PF) injection [id number] 07/06/2020 01:37:47 PM EST completed Starti ng Keily 07/06/20 at 1337, For 1 dose
Ryan Simpson : davian override
[facility] Medication administered onsite 1 ML Lorazepam 2 MG/ML Injection LORazepam (ATIVAN) in jection 2 mg LORazepam (ATIVAN) injection 2 mg 07/06/2020 10:15:00 AM EST 2 mg Intraveno us completed 2 mg, Intravenous, Once, Keily 07/06/20 at 1015, For 1 dose [facility] Medication administered onsite ondansetron (ZOFRAN) injection 4 mg [id number] 07/06/2020 10:04:5 4 AM EST 4 mg Intravenous active 4 mg, In travenous, Every 8 hours PRN, Nausea, Vomiting, Starting Keily 07/06/20 at 1004, For 30 days [facility] Medication administered onsite Oxycodone Hydrochloride 5 [...] heparin (porcine) 5000 UNIT/ML injection 5,000 Units [id number] 07/06/2020 09:00:00 AM EST 5000 U Subcutaneous aborted 5,000 Units, Subcutaneous, 2 Times Daily, First dose on Keily 07/06/20 at 0900, For 30 days [facility] Medication administered onsite Piperacillin 3000 MG [...] piperacillin- tazobactam is compatible with Lactated Ringers.
[facility] Medication administered onsite thiamine (B-1) 500 mg in sodium chloride 0.9 % 50 mL IVPB 07/06/2020 08:00:00 AM EST 500 mg Intravenous aborted 500 mg, Intravenous, Administer over 30 Minutes, Every 24 hours, First dose on Keily 07/06/20 at 0800, For 4 days [facility] Medication administered onsite lactated ringers bolus 1,000 mL [id number] 07/06/2020 06:45:00 AM EST 1000 mL Intravenous completed 1,000 mL , Intravenous, Once, Keily 07/06/20 at 0645, For 1 dose [facility] Medication administered onsite potassium chloride (K-DUR) dissolvable tablet 40 mEq [id number] 07/06/2020 06:45:00 AM EST 40 meq Oral completed 40 mEq, Oral, Once, Keily 07/06/20 at 0645, For 1 dose
May be dissolved in water for patients with a G-Tube or unable to swallow. If concern for clogging G-Tube, may contact Pharmacy to switch formulation to a powder packet.
[facility] Medication administered onsite Oxycodone Hydrochloride 5 MG Oral Tablet oxyCODONE (ROXICODONE) immediate release tablet 10 mg oxyCODONE (ROXICODONE) immediate release tablet 10 mg 07/06/2020 04:15:00 AM EST 10 mg Oral completed 10 mg, Oral, Once, Keily 07/06/20 at 0415, For 1 dose
Oxycodone immediate release is limited to 10 mg per dose. Higher doses ( only) require Pain Service consultation and approval.
[facility] Medication administered onsite Hydroxyzine Hydrochloride 10 MG Oral Tablet hydrOXYzin e (ATARAX) tablet 25 mg hydrOXYzine (ATARAX) tablet 25 mg 07/06/2020 04:06:13 AM EST 25 mg Oral aborted 25 mg, Oral, Every 6 hours PRN, Anxiety, Starting Keily 07/06/20 at 0406, For 30 days [facility] Medication administered onsite Calcium Chloride 0.0014 MEQ/ML / Potassi um Chloride 0.004 MEQ/ML / Sodium Chloride 0.103 MEQ/ML / Sodium Lactate 0.028 MEQ/ML Injectable Solution lactated ringers infusion lactated ringers infusion 07/06/2020 03:45:00 AM EST 75 mL/h Intravenous aborted at 75 mL/hr, Intravenous, Continuous, Starting Keily 07/06/20 at 0345, For 3 days [facility] Medication administered onsite lactated ringers bolus 1,000 mL [id number] 07/06/2020 03:30:00 AM EST 1000 mL Intravenous completed 1,000 mL , Intravenous, Once, Keily 07/06/20 at 0330, For 1 dose [facility] Medication administered onsite octreotide (SANDOSTATIN) 5 mcg/mL in sodium chloride 0.9 % 2 50 mL infusion 07/06/2020 03:15:00 AM EST 50 ug/h Intravenous aborted 50 mcg/hr (10 mL/hr), Intravenous, at 10 mL/hr, Continuous, Starting Keily 07/06/20 at 0315, For 30 days [facility] Medication administered onsite albumin human (ALBUMINAR) 25 % bottle 100 g [id number] 07/06/2020 03:15:00 AM EST 100 g Intravenous completed 10 0 g, Intravenous, at 200 mL/hr, Once, Keily 07/06/20 at 0315, For 1 dose [facility] Medication administered onsite pantoprazole (PROTONIX) 0.4 mg/mL in sodium chloride 0.9 % 2 50 mL infusion 07/06/2020 03:15:00 AM EST 8 mg/h Intravenous aborted 8 mg/hr (20 mL/hr), Intravenous, at 20 mL/hr, Continuous, Starting Keily 07/06/20 at 0315, For 30 days
Indication: Active GI bleed [facility] Medication administered onsite 50 mg 08/09/2019 [...] (for pain)Can be used with lidocaine pain. [facility] Esomeprazole 20 MG Delayed Release Oral Capsule esomeprazole (NEXIUM) 20 MG capsule esomeprazole (NEXIUM) 20 MG capsule 20 mg Oral aborted Take 20 mg by mouth Two Times Daily [facility] Atenolol 100 MG Oral Tablet atenolol (TENORMIN) 100 MG tablet atenolol (TENORMIN) 100 MG tablet 100 mg Oral aborted Take 100 mg by mouth daily. [facility] Aspirin 325 MG Oral Tablet Aspirin 325 MG Oral Tablet 32 5 mg Oral aborted Take 325 mg by mouth daily [facility] Indomethacin (INDOCIN PO) Oral aborted Take by mouth. [facility] Hydroxyzine Hydrochloride 25 MG Oral Tablet hydrOXYzin e (ATARAX) 25 MG tablet hydrOXYzine (ATARAX) 25 MG tablet 25 mg Oral abor tania Take 25 mg by mouth Three times daily as needed for Itching. [facility] Lisinopril 10 MG Oral Tablet lisinopril (PRINIVIL,ZEST RIL) 10 MG tablet lisinopril (PRINIVIL,ZESTRIL) 10 MG tablet 10 mg Oral aborted Take 10 mg by mouth daily. [facility] Insurance Providers Payer name Policy type / Coverage type Policy ID Covered democrat ID Covered democrat's relationship to pandey Policy Pandey Plan Information [facility] [id number] SP [id number] [facility] [id number] S [id number] [facility] MEDICAID [id number] S [id number] [facility] MEDICAID [id number] S [id number] MEDICAID [id number] [facility] MEDICAID [id number] S [id number] [facility] MEDICAID [id number] S [id number] [facility] MEDICAID [id number] S [id number] [facility] MEDICAID [id number] S [id number] [facility] [id number] SP [id number] [facility] [id number] SP [id number] [facility] [id number] SP [id number] MEDICAID M [id number] Self [id number] [facility] I [id number] Self [id number] [facility] I [id number] Self [id number] [facility] I [id number] Self [id number] MEDICAID M [id number] Self [id number] SELF PAY UNAVAILABLE S [place] [facility] [place] [id number] S [id number] [facility] MEDICAID [id number] S [id number] [facility] [id number] S [id number] [facility] [id number] SP [id number] SELF PAY ONLY [id number] SP [id number] [facility] [id number] S [id number] [facility] [id number] [facility] [id number] ANSI-Medicaid [id number] ANSI-Medicaid [id number] ANSI-Medicaid [id number] ANSI-Medicaid [id number] ANSI-Medicaid [id number] ANSI-Medicaid [id number] ANSI-Medicaid [id number] ANSI-Medicaid [id number] ANSI-Medicaid [id number] ANSI-Medicaid [id number] ANSI-Medicaid [id number] ANSI-Medicaid [id number] ANSI-Medicaid [id number] ANSI-Medicaid [id number] ANSI-Medicaid [id number] ANSI-Medicaid [id number] ANSI-Medicaid [id number] ANSI-Medicaid [id number] ANSI-Medicaid [id number] ANSI-Medicaid [id number] ANSI-Medicaid [id number] ANSI-Medicaid [id number] ANSI-Medicaid [id number] ANSI-Medicaid [id number] ANSI-Medicaid [id number] ANSI-Medicaid [id number] ANSI-Medicaid [id number] ANSI-Medicaid [id number] ANSI-Medicaid [id number] ANSI-Medicaid [id number] ANSI-Medicaid [id number] ANSI-Medicaid [id number] ANSI-Medicaid [id number] ANSI-Medicaid [id number] ANSI-Medicaid [id number] ANSI-Medicaid [id number] [facility] [id number] SP [id number] [facility] Medicaid Medicaid [id number] Self [id number] [facility] [id number] S [id number] MEDICAID [id number] SP [id number] MEDICAID P [id number] S [id number] SELF PAY SP UNAVAILABLE UNAVAILA BLE MEDICAID [id number] S [id number] Problems, Conditions, and Diagnoses Code Display Name Description Problem Type Effective Dates Data Source(s) R65.20 Severe sepsis without septic shock SEVERE SEPSIS WITHOUT SEPTIC SHOCK Diagnosis 08/31/2020 03:32:00 AM [facility] R79.1 Abnormal coagulation profile ABNORMAL COAGULATION PROF ILE Diagnosis 08/31/2020 03:32:00 AM [facility] R07.9 Chest pain, unspecified CHEST PAIN, UNSPECIFIED Diagno sis 08/31/2020 03:32:00 AM [facility] F17.200 Nicotine dependence, unspecified, uncomp licated NICOTINE DEPENDENCE, UNSPECIFIED, UNCOMPLICATED Diagnosis 08/31/2020 03:32:00 AM [facility] E78.5 Hyperlipidemia, unspecified HYPERLIPIDEMIA, UNSPECIFIE D Diagnosis 08/31/2020 03:32:00 AM [facility] F32.9 Major depressive disorder, single episod e, unspecified MAJOR DEPRESSIVE DISORDER, SINGLE EPISODE, UNSPECI Diagnosis 08/31/2020 03:32:00 AM [facility] I10 Essential (primary) hypertension ESSENTIAL (PRIMARY) H YPERTENSION Diagnosis 08/31/2020 03:32:00 AM [facility] F10.10 Alcohol abuse, uncomplicated ALCOHOL ABUSE, UNCOMPLICA TANIA Diagnosis 08/31/2020 03:32:00 AM [facility] B34.8 Other viral infections of unspecified si te OTHER VIRAL INFECTIONS OF UNSPECIFIED SITE Diagnosis 08/31/2020 03:32:00 AM [facility] N40.0 Benign prostatic hyperplasia without low er urinary tract symptoms BENIGN PROSTATIC HYPERPLASIA WITHOUT LOWER URINRY Diagnosis 08/31/2020 03:32: 00 AM [facility] K21.9 Gastro-esophageal reflux disease without esophagitis GASTRO-ESOPHAGEAL REFLUX DISEASE WITHOUT ESOPHAGIT Diagnosis 08/31/2020 03:32:00 AM [facility] E11.9 Type 2 diabetes mellitus without complic ations TYPE 2 DIABETES MELLITUS WITHOUT COMPLICATIONS Diagnosis 08/31/2020 03:32:00 AM [facility] pital J12.82 PNEUMONIA DUE TO CORONAVIRUS DISEASE 201 9 PNEUMONIA DUE TO CORONAVIRUS DISEASE 2019 Diagnosis 08/31/2020 03:32:00 AM [facility] D69.6 Thrombocytopenia, unspecified THROMBOCYTOPENIA, UNSPEC IFIED Diagnosis 08/31/2020 03:32:00 AM [facility] K74.60 Unspecified cirrhosis of liver UNSPECIFIED CIRRHOSIS O F LIVER Diagnosis 08/31/2020 03:32:00 AM [facility] U07.1 COVID-19 COVID-19 Diagnosis 08/31/2020 03:32:00 AM [facility] E87.2 Acidosis ACIDOSIS Diagnosis 08/31/2020 03:32:00 AM [facility] A41.9 Sepsis, unspecified organism SEPSIS, UNSPECIFIED ORGAN ISM Diagnosis 08/31/2020 03:32:00 AM [facility] Z86.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), and cerebral infarction without residual deficits PRSNL HX OF TIA (TIA), AND CEREB INFRC W /O RESID D Diagnosis 08/30/2020 03:59:00 PM [facility] Z79.899 Other detention (current) drug therapy O THER INVESTIGATOR (CURRENT) DRUG THERAPY Diagnosis 08/30/2020 03:59:00 PM [facility] l F17.210 Nicotine dependence, cigarettes, uncompl icated NICOTINE DEPENDENCE, CIGARETTES, UNCOMPLICATED Diagnosis 08/30/2020 03:59:00 PM [facility]spital E11.9 Type 2 diabetes mellitus without complic ations TYPE 2 DIABETES MELLITUS WITHOUT COMPLICATIONS Diagnosis 08/30/2020 03:59:00 [facility] B34.8 Other viral infections of unspecified si te OTHER VIRAL INFECTIONS OF UNSPECIFIED SITE Diagnosis 08/30/2020 03:59:00 PM [facility] l J18.9 Pneumonia, unspecified organism PNEUMONIA, UNSPECIFIED ORGANISM Diagnosis 08/30/2020 03:59:00 PM [facility] U07.1 COVID-19 COVID-19 Diagnosis 08/30/2020 03:59:00 PM [facility] A41.9 Sepsis, unspecified organism SEPSIS, UNSPECIFIED ORGAN ISM Diagnosis 08/30/2020 03:59:00 PM [facility] R07.89 Other chest pain OTHER CHEST PAIN Diagnosis 08/30/2020 03 :59:00 PM [facility] K92.2 Gastrointestinal hemorrhage, unspecified Gastrointestinal hemorrhage, unspecified Diagnosis 07/09/2020 11:55:34 AM [facility] K52.9 Noninfective gastroenteritis and colitis , unspecified Noninfective gastroenteritis and colitis, unspecified Diagnosis 07/06/2020 03:03:00 AM [facility] Vomiting blood Vomiting blood Diagnosis 07/06/2020 03:03: 00 AM [facility] Z20.828 Contact with and (suspected) exposure to other viral communicable diseases CONTACT W AND EXPOSURE TO OTH VIRAL COMMUNICABLE D Diagnosis 07/05/2020 08:45:00 PM [facility] Z99.81 Dependence on supplemental oxygen DEPENDENCE ON SUPPLEMENTAL OXYGEN Diagnosis 07/05/2020 08:45:00 PM [facility] Z79.891 shelter (current) use of opiate analge sic JAIL (CURRENT) USE OF OPIATE ANALGESIC Diagnosis 07/05/2020 08:45:00 PM [facility] I95.1 Orthostatic hypotension ORTHOSTATIC HYPOTENSION Diagno sis 07/05/2020 08:45:00 PM [facility] N17.9 Acute kidney failure, unspecified ACUTE KIDNEY F AILURE, UNSPECIFIED Diagnosis 07/05/2020 08:45:00 PM [facility] K21.00 GASTRO-ESOPHAGEAL REFLUX DIS WITH ESOPHA GITIS, WIT GASTRO-ESOPHAGEAL REFLUX DIS WITH ESOPHAGITIS, WIT Diagnosis 07/05/2020 08:45:00 PM [facility] I85.10 Secondary esophageal varices without ble eding SECONDARY ESOPHAGEAL VARICES WITHOUT BLEEDING Diagnosis 07/05/2020 08:45:00 PM [facility] F10.20 Alcohol dependence, uncomplicated ALCOHOL DEPEND ENCE, UNCOMPLICATED Diagnosis 07/05/2020 08:45:00 PM [facility] E86.0 Dehydration DEHYDRATION Diagnosis 07/05/2020 08:45:00 PM [facility] K52.9 Noninfective gastroenteritis and colitis , unspecified NONINFECTIVE GASTROENTERITIS AND COLITIS, UNSPECIF Diagnosis 07/05/2020 08:45:00 PM [facility] R11.2 Nausea with vomiting, unspecified NAUSEA WITH VO MITING, UNSPECIFIED Diagnosis 07/05/2020 08:45:00 PM [facility] E86.9 Volume depletion, unspecified VOLUME DEPLETION, UNSPEC IFIED Diagnosis 07/05/2020 08:45:00 PM [facility] G89.29 Other chronic pain OTHER CHRONIC PAIN Diagnosis 05/2019 01:11:00 PM [facility] G47.9 Sleep disorder, unspecified SLEEP DISORDER, UNSPECIFIE D Diagnosis 08/09/2019 01:11:00 [facility] F10.10 Alcohol abuse, uncomplicated ALCOHOL ABUSE, UNCOMPLICA TANIA Diagnosis 08/09/2019 01:11:00 [facility] F17.200 Nicotine dependence, unspecified, uncomp licated NICOTINE DEPENDENCE, UNSPECIFIED, UNCOMPLICATED Diagnosis 08/09/2019 01:11:00 PM [facility] F33.1 Major depressive disorder, recurrent, mo derate MAJOR DEPRESSIVE DISORDER, RECURRENT, MODERATE Diagnosis 08/09/2019 01:11:00 PM [facility] K31.9 Disease of stomach and duodenum, unspeci fied DISEASE OF STOMACH AND DUODENUM, UNSPECIFIED Diagnosis 07/24/2019 05:33:00 PM [facility] F41.9 Anxiety disorder, unspecified ANXIETY DISORDER, UNSPEC IFIED Diagnosis 07/24/2019 05:33:00 PM [facility] Y92.[address] or not applicable UNSPECIFIED PLACE OR NOT APPLICABLE Diagnosis 07/21/2019 02:23:00 PM [facility] W00.0XXA Fall on same level due to ice and snow, initial encounter FALL ON SAME LEVEL DUE TO ICE AND SNOW, INITIAL EN Diagnosis 07/21/2019 02:23:00 PM [facility] Z79.84 INVESTIGATOR (CURRENT) USE OF ORAL HYPOGLYC EMIC DRUGS JAIL (CURRENT) USE OF ORAL HYPOGLYCEMIC DRUGS Diagnosis 07/21/2019 02:23:00 PM [facility] N30.01 Acute cystitis with hematuria ACUTE CYSTITIS WITH REBECA TURIA Diagnosis 07/21/2019 02:23:00 PM [facility] Y93.01 Activity, walking, marching and hiking A CTIVITY, WALKING, MARCHING AND HIKING Diagnosis 07/21/2019 02:23:00 PM [facility] l Y99.8 Other external cause status OTHER EXTERNAL CAUSE STATU S Diagnosis 07/21/2019 02:23:00 PM [facility] S80.01XA Contusion of right knee, initial encount er CONTUSION OF RIGHT KNEE, INITIAL ENCOUNTER Diagnosis 07/21/2019 02:23:00 PM [facility] l S33.5XXA Sprain of ligaments of lumbar spine, ini tial encounter SPRAIN OF LIGAMENTS OF LUMBAR SPINE, INITIAL ENCOU Diagnosis 07/21/2019 02:23:00 PM [facility] S39.92XA Unspecified injury of lower back, initia l encounter UNSPECIFIED INJURY OF LOWER BACK, INITIAL ENCOUNTER Diagnosis 07/21/2019 02:23:00 PM [facility] Surgeries/Procedures Procedure Description Date Indications Data Source(s) Introduction of Anti-inflammatory into Peripheral Vein, Perc utaneous Approach 08/31/2020 12:00:00 AM [facility] Introduction of Other Anti-infective int o Peripheral Vein, Percutaneous Approach 08/31/2020 12:00:00 AM [facility] INTRODUCE REMDESIVIR IN PERIPH VEIN, PERC, [place] MANUEL 08/31/2020 12:00:00 AM [facility] POCT GLUCOSE, DOCKED POCT GLUCOSE, DOCKED Routine 07/10/2020 11:55 AM EST 07/10/2020 11:55:00 AM [facility] POCT GLUCOSE, DOCKED POCT GLUCOSE, DOCKED Routine 07/10/2020 8:48 AM EST 07/10/2020 08:48:00 AM [facility] BLOOD COUNT COMPLETE AUTO&AUTO DIFRNTL WBC COUNT CBC AND DIFFER ENTIAL Routine 07/10/2020 3:54 AM EST 07/10/2020 03:54:00 AM [facility] PHOSPHORUS INORGANIC PHOSPHORUS LEVEL Timed 07/10/2020 3:[address] 07/10/2020 03:54:00 AM [facility] MAGNESIUM MAGNESIUM LEVEL Routine 07/10/2020 3:54 AM EST 07/10/2020 03:54:00 AM [facility] COMPREHENSIVE METABOLIC PANEL COMPREHENSIVE METABOLIC PANEL Rou jeyson 07/10/2020 3:54 AM EST 07/10/2020 03:54:00 AM [facility] PHOSPHORUS INORGANIC PHOSPHORUS LEVEL Timed 07/09/2020 6:[address] 07/09/2020 06:16:00 PM [facility] GLUCOSE QUANTITATIVE BLOOD XCPT REAGENT STRIP POCT GLUCOSE, MALIHA GUILLERMO Routine 07/09/2020 4:49 PM EST 07/09/2020 04:49:00 PM [facility] PHOSPHORUS INORGANIC PHOSPHORUS LEVEL Timed 07/09/2020 4:[address] 07/09/2020 04:09:00 PM [facility] GLUCOSE QUANTITATIVE BLOOD XCPT REAGENT STRIP POCT GLUCOSE, MALIHA GUILLERMO Routine 07/09/2020 12:24 PM EST 07/09/2020 12:24:00 PM [facility] PHOSPHORUS INORGANIC PHOSPHORUS LEVEL Timed 07/09/2020 10:[address] 07/09/2020 10:05:00 AM [facility] GLUCOSE QUANTITATIVE BLOOD XCPT REAGENT STRIP POCT GLUCOSE, MALIHA GUILLERMO Routine 07/09/2020 7:50 AM EST 07/09/2020 07:50:00 AM [facility] BLOOD COUNT COMPLETE AUTO&AUTO DIFRNTL WBC COUNT CBC AND DIFFER ENTIAL Routine 07/09/2020 12:47 AM EST 07/09/2020 12:47:00 AM [facility] PHOSPHORUS INORGANIC PHOSPHORUS LEVEL Timed 07/09/2020 12:[address] 07/09/2020 12:47:00 AM [facility] MAGNESIUM MAGNESIUM LEVEL Routine 07/09/2020 12:47 AM EST 07/09/2020 12:47:00 AM [facility] COMPREHENSIVE METABOLIC PANEL COMPREHENSIVE METABOLIC PANEL Rou jeyson 07/09/2020 12:47 AM EST 07/09/2020 12:47:00 AM [facility] GLUCOSE QUANTITATIVE BLOOD XCPT REAGENT STRIP POCT GLUCOSE, MALIHA GUILLERMO Routine 07/08/2020 9:24 PM EST 07/08/2020 09:24:00 PM [facility] GLUCOSE QUANTITATIVE BLOOD XCPT REAGENT STRIP POCT GLUCOSE, MALIHA GUILLERMO Routine 07/08/2020 4:57 PM EST 07/08/2020 04:57:00 PM [facility] GLUCOSE QUANTITATIVE BLOOD XCPT REAGENT STRIP POCT GLUCOSE, MALIHA GUILLERMO Routine 07/08/2020 12:50 PM EST 07/08/2020 12:50:00 PM [facility] PHOSPHORUS INORGANIC PHOSPHORUS LEVEL Timed 07/08/2020 10:[address] 07/08/2020 10:28:00 AM [facility] GLUCOSE QUANTITATIVE BLOOD XCPT REAGENT STRIP POCT GLUCOSE, MALIHA GUILLERMO Routine 07/08/2020 8:42 AM EST 07/08/2020 08:42:00 AM [facility] BLOOD COUNT COMPLETE AUTO&AUTO DIFRNTL WBC COUNT CBC AND DIFFER ENTIAL Timed 07/08/2020 2:11 AM EST 07/08/2020 02:11:00 AM [facility] PHOSPHORUS INORGANIC PHOSPHORUS LEVEL Timed 07/08/2020 2:[address] 07/08/2020 02:11:00 AM [facility] MAGNESIUM MAGNESIUM LEVEL Routine 07/08/2020 2:11 AM EST 07/08/2020 02:11:00 AM [facility] COMPREHENSIVE METABOLIC PANEL COMPREHENSIVE METABOLIC PANEL Rou jeyson 07/08/2020 2:11 AM EST 07/08/2020 02:11:00 AM [facility] GLUCOSE QUANTITATIVE BLOOD XCPT REAGENT STRIP POCT GLUCOSE, MALIHA GUILLERMO Routine 07/07/2020 9:53 PM EST 07/07/2020 09:53:00 PM [facility] EKG 12-LEAD - CMAXX REPORT EKG 12-LEAD - CMAXX REPORT 07/07/2020 9:45 PM EST 07/07/2020 09:45:00 PM [facility] EKG 12-LEAD - CMAXX REPORT EKG 12-LEAD - CMAXX REPORT 07/07/2020 9:45 PM EST 07/07/2020 09:45:00 PM [facility] EKG 12-LEAD EKG 12-LEAD STAT 07/07/2020 9:45 PM EST 07/07/2020 09:45:00 PM [facility] BLOOD COUNT COMPLETE AUTO&AUTO DIFRNTL WBC COUNT CBC AND DIFFER ENTIAL Timed 07/07/2020 6:45 PM EST 07/07/2020 06:45:00 PM [facility] PHOSPHORUS INORGANIC PHOSPHORUS LEVEL Routine 07/07/2020 6:[address] 07/07/2020 06:45:00 PM [facility] GLUCOSE QUANTITATIVE BLOOD XCPT REAGENT STRIP POCT GLUCOSE, DOC KED Routine 07/07/2020 5:29 PM EST 07/07/2020 05:29:00 PM [facility] PHOSPHORUS INORGANIC PHOSPHORUS LEVEL Timed 07/07/2020 5:[address] 07/07/2020 05:29:00 PM [facility] MAGNESIUM MAGNESIUM LEVEL Routine 07/07/2020 5:29 PM EST 07/07/2020 05:29:00 PM [facility] GLUCOSE QUANTITATIVE BLOOD XCPT REAGENT STRIP POCT GLUCOSE, DOC KED Routine 07/07/2020 12:25 PM EST 07/07/2020 12:25:00 PM [facility] GLUCOSE QUANTITATIVE BLOOD XCPT REAGENT STRIP POCT GLUCOSE, DOC KED Routine 07/07/2020 12:23 PM EST 07/07/2020 12:23:00 PM [facility] POTASSIUM SERUM PLASMA/WHOLE BLOOD POTASSIUM Routine 07/07/2020 8:22 AM EST 07/07/2020 08:22:00 AM [facility] PHOSPHORUS INORGANIC PHOSPHORUS LEVEL Routine 07/07/2020 8:[address] 07/07/2020 08:22:00 AM [facility] GLUCOSE QUANTITATIVE BLOOD XCPT REAGENT STRIP POCT GLUCOSE, DOC KED Routine 07/07/2020 8:18 AM EST 07/07/2020 08:18:00 AM [facility] BLOOD COUNT COMPLETE AUTOMATED CBC AND DIFFERENTIAL Timed 07/07/2020 5:43 AM EST 07/07/2020 05:43:00 AM [facility] HEMOGLOBIN GLYCOSYLATED A1C HEMOGLOBIN A1C Routine 07/07/2020 5:43 AM EST 07/07/2020 05:43:00 AM [facility] COMPREHENSIVE METABOLIC PANEL COMPREHENSIVE METABOLIC PANEL Rou jeyson 07/07/2020 5:43 AM EST 07/07/2020 05:43:00 AM [facility] BLOOD COUNT COMPLETE AUTO&AUTO DIFRNTL WBC COUNT CBC AND DIFFER ENTIAL Timed 07/07/2020 12:12 AM EST 07/07/2020 12:12:00 AM [facility] GLUCOSE QUANTITATIVE BLOOD XCPT REAGENT STRIP POCT GLUCOSE, DOC KED Routine 07/06/2020 10:08 PM EST 07/06/2020 10:08:00 PM [facility] POTASSIUM SERUM PLASMA/WHOLE BLOOD POTASSIUM Routine 07/06/2020 9:39 PM EST 07/06/2020 09:39:00 PM [facility] PHOSPHORUS INORGANIC PHOSPHORUS LEVEL Routine 07/06/2020 9:[address] 07/06/2020 09:39:00 PM [facility] MAGNESIUM MAGNESIUM LEVEL Routine 07/06/2020 9:39 PM EST 07/06/2020 09:39:00 PM [facility] BLOOD COUNT COMPLETE AUTO&AUTO DIFRNTL WBC COUNT CBC AND DIFFER ENTIAL Timed 07/06/2020 5:36 PM EST 07/06/2020 05:36:00 PM [facility] LACTATE LACTIC ACID LEVEL, PLASMA Timed 07/06/2020 5:36 PM EST 07/06/2020 05:36:00 PM [facility] COMMUNITY-ACQUIRED DIARRHEA PANEL COMMUNITY-ACQUIRED DIARRHEA P QUINCY Routine 07/06/2020 2:48 PM EST 07/06/2020 02:48:00 PM [facility] OVA&PARASITES DIRECT SMEARS CONCENTRATION&ID OVA AND PARASITE S CREEN Routine 07/06/2020 2:48 PM EST 07/06/2020 02:48:00 PM [facility] UPPER GI ENDOSCOPY; DX, W/WO SPECIMEN COLLECTION, BRUS OLAMIDE/WASHING (SEP PROC) UPPER GI ENDOSCOPY; DX, W/WO SPECIMEN COLLECTION, BRUSHING/WASHING (SEP PROC) 07/06/2020 1:25 PM EST Coffee ground emesis 07/06/2020 01:25:00 PM EST - 07/06/2020 02:11:00 PM [facility] BLOOD COUNT COMPLETE AUTO&AUTO DIFRNTL WBC COUNT CBC AND DIFFER ENTIAL Timed 07/06/2020 11:35 AM EST 07/06/2020 11:35:00 AM [facility] PHOSPHORUS INORGANIC PHOSPHORUS LEVEL Routine 07/06/2020 11:[address] 07/06/2020 11:35:00 AM [facility] MAGNESIUM MAGNESIUM LEVEL Routine 07/06/2020 11:35 AM EST 07/06/2020 11:35:00 AM [facility] LACTATE LACTIC ACID LEVEL, PLASMA Timed 07/06/2020 11:35 AM EST 07/06/2020 11:35:00 AM [facility] BASIC METABOLIC PANEL CALCIUM TOTAL BASIC METABOLIC PANEL Routi ne 07/06/2020 11:35 AM EST 07/06/2020 11:35:00 AM EST [facility] BLOOD COUNT COMPLETE AUTO&AUTO DIFRNTL WBC COUNT CBC AND DIFFER ENTIAL Timed 07/06/2020 8:09 AM EST 07/06/2020 08:09:00 AM [facility] INSJ NON-TUNNELED CENTRAL VENOUS CATH AGE 5 YR/> RI INSERT NON-TUNNEL CV CATH Routine 07/06/2020 6:34 AM EST Colitis Gastrointestinal hemorrhage, unspecified gastrointestinal hemorrhage type 07/06/2020 06:34:47 AM EST Gastrointestinal hemorrhage, unspecified [facility], unspecified gastrointestinal hemorrhage type Colitis US ABDOMINAL REAL TIME W/IMAGE DOCUMENTATION US ABDOMEN COMPLET E [id number] STAT 07/06/2020 4:47 AM EST 07/06/2020 04:47:51 AM [facility] DRUGS OF ABUSE, URINE DRUGS OF ABUSE, URINE Routine 07/06/2020 4 :26 AM EST 07/06/2020 04:26:00 AM [facility] THROMBOPLASTIN TIME PARTIAL PLASMA/WHOLE BLOOD PARTIA L THROMBOPLASTIN TIME (PTT) Routine 07/06/2020 4:26 AM EST 07/06/2020 04:26 :00 AM [facility] IAAD EIA HIV-1 AG W/HIV-1&HIV-2 ANTBDY SINGLE HIV AG AB COMBO S CREEN Routine 07/06/2020 4:26 AM EST 07/06/2020 04:26:00 AM [facility] ETHYL ALCOHOL LEVEL ETHYL ALCOHOL LEVEL Routine 07/06/2020 4:26 AM EST 07/06/2020 04:26:00 AM [facility] HEPATITIS C ANTIBODY HEPATITIS C ANTIBODY Routine 07/06/2020 4:26 AM EST 07/06/2020 04:26:00 AM [facility] HEPATITIS ANTIBODY HAAB IGM ANTIBODY HEPATITIS A ANTIBODY, IGM Routine 07/06/2020 4:26 AM EST 07/06/2020 04:26:00 AM [facility] HEPATITIS B CORE ANTIBODY HBCAB IGM ANTIBODY HEPATITIS B CO RE ANTIBODY, IGM Routine 07/06/2020 4:26 AM EST 07/06/2020 04:26:00 AM [facility] SODIUM URINE SODIUM, URINE, RANDOM Routine 07/06/2020 4:26 AM EST 07/06/2020 04:26:00 AM [facility] CREATININE OTHER SOURCE CREATININE, URINE, RANDOM Routine 07/06/2020 4:26 AM EST 07/06/2020 04:26:00 AM [facility] IAAD EIA HEPATITIS B SURFACE ANTIGEN HEPATITIS B SURFACE ANTIGE N Routine 07/06/2020 4:26 AM EST 07/06/2020 04:26:00 AM [facility] CULTURE BACTERIAL BLOOD AEROBIC W/ID ISOLATES BLOOD CULTURE R outine 07/06/2020 4:26 AM EST 07/06/2020 04:26:00 AM [facility] CULTURE BACTERIAL BLOOD AEROBIC W/ID ISOLATES BLOOD CULTURE R outine 07/06/2020 4:26 AM EST 07/06/2020 04:26:00 AM [facility] URNLS DIP STICK/TABLET REAGENT AUTO MICROSCOPY URINALYSIS W ITH MICROSCOPIC Routine 07/06/2020 4:26 AM EST 07/06/2020 04:26:00 AM [facility] PROTHROMBIN TIME PROTIME INR Routine 07/06/2020 4:26 AM EST 07/06/2020 04:26:00 AM [facility] CULTURE BCT ISOL&PRSMPTV ID ISOLATE EA URINE URINE CULTURE Ro utine 07/06/2020 4:26 AM EST 07/06/2020 04:26:00 AM [facility] PHOSPHORUS INORGANIC PHOSPHORUS LEVEL Routine 07/06/2020 4:[address] 07/06/2020 04:26:00 AM [facility] MAGNESIUM MAGNESIUM LEVEL Routine 07/06/2020 4:26 AM EST 07/06/2020 04:26:00 AM [facility] LACTATE LACTIC ACID LEVEL, PLASMA Routine 07/06/2020 4:26 AM EST 07/06/2020 04:26:00 AM [facility] AMMONIA AMMONIA LEVEL Routine 07/06/2020 4:26 AM EST 07/06/2020 04:26:00 AM [facility] COMPREHENSIVE METABOLIC PANEL COMPREHENSIVE METABOLIC PANEL Rou jeyson 07/06/2020 4:26 AM EST 07/06/2020 04:26:00 AM [facility] GLUCOSE QUANTITATIVE BLOOD XCPT REAGENT STRIP POCT GLUCOSE, DOC KED Routine 07/06/2020 2:19 AM EST 07/06/2020 02:19:00 AM [facility] UPPER GI ENDOSCOPY UPPER GI ENDOSCOPY 07/06/2020 12:[address] 07/06/2020 12:00:00 AM [facility] Results ID Date Data Source [id number] 09/05/2020 07:31:00 AM [facility] Exam Number: [id number] Reported By: Elkin OMALLEY M.D. Signed By: Diony OMALLEY M.D. Name Value Range Interpretation Code Description Data Zahraa rce(s) Supporting Document(s) ID Date Data Source [id number] 09/04/2020 01:21:00 PM [facility] [address] [id number] SUMMARYPATIENT NAME: JANICE VERMA MR#: [id number] PHYSICIAN: TODD ELKINS DOAUTHOR: Todd Elkins DO DATE: 08/31/20 RM#: [id number] DATE: 09/04/20 : 65Summary of HospitalizationReason for AdmissionChest pain and shortness of breathHospital CoursePatient is a 55 years of male with a past medical history significant fordiabetes, chronic alcohol abuse, depression, BPH and hypertension initial lypresented to [facility] emergency room with complaints of shortness ofbreath and chest pain. Diagnostic work-up in the emergency room demonstratedCOVID-19 infection and human virus infection. Patient was given remdesivir,dexamethasone, Rocephin, azithromycin. Patient was then transferred to [facility] for severe sepsis secondary to pneumonia and [...] Hypertension8. Depression9. BPH (benign prostatic hyperplasia)10. HUMAN BUWEIACMWU60. Elevated d- dimerDiagnoses (Other)Past Pertinent History1. Diabetes2. [...] taking the following medications:CARVEDILOL (Coreg*) 12.5 MG ZGNISZ60.5 MILLIGRAM Orally TWICE DAILY Qty = 0Continue taking these medications:Aspirin E.c.* (Aspirin EC*) 81 MG TABLET.DR81 MILLIGRAM Orally DAILYOMEPRAZOLE (Omeprazole) 20 MG TABLET.DR20 MILLIGRAM Orally DAILYHYDROXYZINE PAMOATE (Atarax*) 50 MG [id number] MILLIGRAM Orally TWICE DAILY as needed for ANXIETYATORVASTATIN CALCIUM (ATORVASTATIN) 80 MG [id number] MILLIGRAM Orally DAILYQty = 0FOLIC ACID* (Folvite*) 1 MG TABLET1 MILLIGRAM Orally DAILYQty = 0NAPROXEN (NAPROXEN*) 500 MG [id number] MILLIGRAM Orally TWICE DAILYQty = 0Fluoxetine* (Prozac*) 20 MG AFGCOKZ05 MILLIGRAM Orally DAILYQty = 0QUETIAPINE FUMARATE (QUETIAPINE) 100 MG [id number] MILLIGRAM Orally AT BEDTIMEQty = 0TAMSULOSIN HCL (TAMSULOSIN) 0.4 MG CAP.ER.24H0.4 MILLIGRAM Orally TWICE DAILYQty = 0Discharge Activity: As toleratedDischarge diet: 2Gm SodiumFollow-upFollow up with your Primary care physicianTime spent by provider to complete discharge > 30 minutesDATE SIGNED: 09/10/20 Electronically SignedTIME SIGNED: 2012 TODD ELKINS DO Name Value Range Interpretation Code Description Data Zahraa rce(s) Supporting Document(s) ID Date Data Source [id number] 09/04/2020 12:09:00 PM EST [facility] Name Value Range Interpretation Code Description Data Zahraa rce(s) Supporting Document(s) FGLU 293 mg/dL 70-110 H [facility] ID Date Data Source [id number] 09/04/2020 10:29:00 AM [place], [place] [address]PATIENT NAME: JANICE VERMA#: [id number] PHYSICIAN: TODD ELKINS DOACCOUNT #: [id number] ADM. DATE: 08/31/20PATIENT : 65 DISCH. DATE: [...] rce(s) Supporting Document(s) ID Date Data Source [id number] 09/04/2020 06:06:00 AM EST [facility] Name Value Range Interpretation Code Description Data Zahraa rce(s) Supporting Document(s) FGLU 209 mg/dL 70-110 H [facility] ID Date Data Source [id number] 09/03/2020 10:52:00 PM EST [facility] Name Value Range Interpretation Code Description Data Zahraa rce(s) Supporting Document(s) FGLU 316 mg/dL 70-110 H [facility] ID Date Data Source [id number] 09/03/2020 06:44:00 PM EST [facility] Name Value Range Interpretation Code Description Data Zahraa rce(s) Supporting Document(s) FGLU 391 mg/dL 70-110 H [facility] ID Date Data Source [id number] 09/03/2020 02:44:00 PM EST [facility] MYLENE [address] [id number] NOTEPATIENT NAME: JOYIMTIAZKARISHMAJANICE PHYSICIAN: TODD ELKINS DOAUTHOR: Luz Elena Elkins DO. DATE: 08/31/20 MR#: [id number] NOTE DATE: 09/03/20 RM#: [id number] TIME: 1451 : 65SubjectiveEvents Since Last EntryPatient seen and examined in room today. Patient's oxygenation is maintainedin room air no fever or chill.ObjectiveVital SignsVital Signs-24 HRS01/02 09/02807 2141 2150 0210 0646Temp 98.0 97.8 97.0 97.2Pulse 51 50 78 52 49Resp 20 18 17 16B/P 126/63 130/66 130/66 119/64 120/65B/P MeanPulse Ox 96 95 96 96O2 DeliveryO2 Flow PfkwLzL245/006317UlsmHscjx 78RespB/P 130/66B/P MeanPulse OxO2 DeliveryO2 Flow RateFiO2 [...] HCl (VITAMIN B1) 100 MG DAILY POTiotropium [place] (Spiriva) 1 puffDAILY INHInsulin Aspart (Humalog Insulin) [...] DepressionA&P- Continue Prozac9. BPH (benign prostatic hyperplasia)A&PContinue Gbkgtu05. HUMAN RHINOVIRUSA&P-Continue supportive care11. Elevated d-dimerA&P- CTA ruled out PE. Lower extremity Doppler came back negative for DVT.- Patient has Covid.Resuscitation status Full codeVTE ProphylaxisVTE Prophylaxis: Continue Lovenox.DATE SIGNED: 09/10/20 Electronically SignedTIME SIGNED: 2012 TODD ELKINS DO Name Value Range Interpretation Code Description Data Zahraa rce(s) Supporting Document(s) ID Date Data Source [id number] 09/03/2020 02:54:00 PM EST [facility] Name Value Range Interpretation Code Description Data Zahraa rce(s) Supporting Document(s) FGLU 377 mg/dL 70-110 H [facility] ID Date Data Source [id number] 09/03/2020 09:20:00 AM EST [facility] Name Value Range Interpretation Code Description Data Zahraa rce(s) Supporting Document(s) GLU 237 mg/dL 70-110 H [facility] Patients taking Sulfasalazine may have f alsely depressedGlucose levels. Patients taking Sulfapyridine may havefalsely elevated Glucose levels. Patients should be drawnfor Glucose before the initial administration of eitherdrug. BUN 23 mg/dL 7-23 [facility] CRE 1.010 mg/dL 0.500-1.300 [facility] GFR > 60 mL/min [facility] CHLORIDE 102 mmol/L 99-110 [facility] NA 135 mmol/L 136-147 L [facility] POTASSIUM 4.1 mmol/L 3.5-5.1 [facility] TCO2 24 mmol/L 20-33 [facility] ANION GAP 13.1 10.0-20.0 [facility] CA 7.8 mg/dL 8.3-10.7 L [facility] ID Date Data Source [id number] 09/03/2020 08:55:00 AM EST [facility] Name Value Range Interpretation Code Description Data Zahraa rce(s) Supporting Document(s) WBC 11.17 x10E3/uL 4.0-10.5 [facility] RBC 3.88 x10E6/uL 4.70-6.00 L [facility] Hemoglobin 11.9 g/dL 14.0-18.0 L [facility] Hematocrit 35.7 % 42.0-52.0 L [facility] MCV 92.0 fL 81.0-99.0 N [facility] MCH 30.7 pg 27.0-31.0 N [facility] MCHC 33.3 g/dL 32.7-35.6 [facility] RDW 14.3 % 11.5-14.0 H [facility] Platelet count 85 x10E3/uL 150-450 L [facility] MPV 11.8 fl 6.9-9.5 H [facility] Neutrophils 84.1 % 34-64 H [facility] Lymphocytes 9.5 % 25-45 L [facility] Monocytes 4.0 % 1.7-10.6 N [facility] Eosinophils 0.5 % 0.4-7.0 N [facility] Basophils 0.2 % 0.1-2.0 N [facility] Imm. Gran. 1.7 % 0.1-2.0 N [facility] Abs. Neutro. 9.39 x10E3/uL 1.2-7.6 H [facility] Abs. Lymph. 1.06 x10E3/uL 1.0-3.5 [facility] Abs. [facility] [facility]. 0.45 x10E3/uL 0.1-1.0 [facility] Abs. Eosin. 0.06 x10E3/uL 0.1-0.7 [facility] Abs. Baso. 0.02 x10E3/uL 0.0-0.1 [facility] Abs. Imm. Gran. 0.19 x10E3/uL 0.0-0.1 [facility] ANRBC% 0 % 0 N [facility] ID Date Data Source [id number] 09/03/2020 01:26:00 PM EST [facility] Name Value Range Interpretation Code Description Data Zahraa rce(s) Supporting Document(s) D-DIMER 1.72 mg/L H [facility] CORRECTED REPORT 09/03/20 1325: D-DIMER previously reported as: 3.65 H mg/LCUT OFF VALUE = 0.5 mg/L The negative predictive value for DVT or PE is at 98% whenthe result is below the cut off. ID Date Data Source [id number] 09/03/2020 09:20:00 AM EST [facility] Name Value Range Interpretation Code Description Data Zahraa rce(s) Supporting Document(s) C-REACTIVE PROT 4.19 mg/dL 0.0-0.49 H [facility] ID Date Data Source [id number] 09/03/2020 08:28:00 AM EST [facility] Name Value Range Interpretation Code Description Data Zahraa rce(s) Supporting Document(s) FGLU 280 mg/dL 70-110 H [facility] ID Date Data Source [id number] 09/02/2020 11:59:00 AM EST [facility] [address] [id number] NOTEPATIENT NAME: ALIREZAJANICE PHYSICIAN: TODD ELKINS DOAUTHOR: Luz Elena Elkins DO. DATE: 08/31/20 MR#: [id number] NOTE DATE: 09/02/20 RM#: [id number] TIME: 1218 : 65SubjectiveEvents Since Last EntryPatient seen and examined in room today. Patient stated his breathingdemonstrated improvement since admission. No fever or chill.ObjectiveVital SignsVital Signs-24 HRS/09/01 1857 2030 0241 0630Temp 97.7 97.8 97.6 97.2Pulse 59 54 77 68 52Resp 21 20 16 16B/P 112/58 117/65 117/65 115/66 114/90B/P MeanPulse Ox 98 96 95 97O2 DeliveryO2 Flow UthtXuF17609/02 1035Temp 98.1Pulse 52 47Resp 19B/P 106/60 108/60B/P MeanPulse Ox 97O2 DeliveryO2 Flow CkbyNeF8Aljwse/OutputIntake/Output Summary 24 hours01/ 1900 01/02 0700Intake Total [...] HCl (VITAMIN B1) 100 MG DAILY POTiotropium [place] (Spiriva) 1 puffDAILY INHInsulin Aspart (Humalog Insulin) [...] x10E3/uL) 0.01Nucleated RBC % (auto) (0 %) 001/495976IlrtcsjwdErpwyqp (70 - 110 mg/dL) 347 GQpdiooeducvcGduebwmhbvsq18/31 0800 BLOOD: Blood Culture - RECD1 0755 BLOOD: Blood Culture - RECDAssessment/PlanProblem List1. Pneumonia due to COVID-19 virusA&P-Continue IV remdesivir, IV Decadron, and PO azithromycin2. Chest painStatus ResolvedA&P-No recurrence.3. Severe sepsisStatus ResolvedA&P-Continue antiviral therapy and antibiotic.4. DiabetesA&P-Continues on insulin sliding scale5. Chronic alcohol abuseA&P-Continue thiamine, folic acid and multivitamin-No sign of alcohol withdrawal.6. HyperlipidemiaA&P-Continue statin7. HypertensionA&P-Continue Coreg8. DepressionA&PContinue Prozac9. BPH (benign prostatic hyperplasia)A&PContinue Cakyln17. HUMAN RHINOVIRUSA&P-Continue supportive care11 . Elevated d-dimerA&P- CTA ruled out PE. Lower extremity Doppler came back negative for DVT.- Patient has Covid.Resuscitation status Full codeVTE ProphylaxisVTE Prophylaxis: Continue Lovenox.DATE SIGNED: 09/10/20 Electronically SignedTIME SIGNED: 2012 TODD ELKINS DO Name Value Range Interpretation Code Description Data Zahraa rce(s) Supporting Document(s) ID Date Data Source [id number] 09/02/2020 05:55:00 AM EST [facility] Name Value Range Interpretation Code Description Data Zahraa rce(s) Supporting Document(s) TROPI < 0.015 ng/mL 0.000-0.079 [facility] ID Date Data Source [id number] 09/02/2020 05:55:00 AM EST [facility] COMMENTS TO LAB: CRITICAL HIGH ON GLUCOM ETER Name Value Range Interpretation Code Description Data Zahraa rce(s) Supporting Document(s) GLU 347 mg/dL 70-110 [facility] Patients taking Sulfasalazine may have f alsely depressedGlucose levels. Patients taking Sulfapyridine may havefalsely elevated Glucose levels. Patients should be drawnfor Glucose before the initial administration of eitherdrug. ID Date Data Source [id number] 09/02/2020 05:55:00 AM EST [facility] Name Value Range Interpretation Code Description Data Zahraa rce(s) Supporting Document(s) C-REACTIVE PROT 11.00 mg/dL 0.0-0.49 [facility] ID Date Data Source [id number] 09/02/2020 05:55:00 AM EST [facility] Name Value Range Interpretation Code Description Data Zahraa rce(s) Supporting Document(s) MAGNESIUM 1.6 mg/dL 1.6-2.6 N [facility] ID Date Data Source [id number] 09/02/2020 05:55:00 AM EST [facility]ya Name Value Range Interpretation Code Description Data Zahraa rce(s) Supporting Document(s) GLU 347 mg/dL 70-110 H [facility] Patients taking Sulfasalazine may have f alsely depressedGlucose levels. Patients taking Sulfapyridine may havefalsely elevated Glucose levels. Patients should be drawnfor Glucose before the initial administration of eitherdrug. BUN 21 mg/dL 7-23 [facility] CRE 1.040 mg/dL 0.500-1.300 [facility] GFR > 60 mL/min [facility] CHLORIDE 105 mmol/L 99-110 [facility] NA 136 mmol/L 136-147 [facility] POTASSIUM 4.5 mmol/L 3.5-5.1 [facility] TCO2 21 mmol/L 20-33 [facility] ANION GAP 14.5 10.0-20.0 [facility] CA 6.9 mg/dL 8.3-10.7 [facility] ALKALINE PHOS 84 U/L 45-117 [facility] TP 5.1 g/dL 6.0-7.8 [facility] ALB 2.4 g/dL 3.5-5.0 [facility] ESRD Dialysis patient Albumin reference range: 2.9-4.4 g/dL GL 2.7 g/dL 2.3-3.5 [facility] A/G 0.9 1.0-2.5 [facility] T. BILIRUBIN 0.5 mg/dL 0.1-1.1 [facility] [place] Total Bilirubin is n ot recommended forpatients undergoing treatment with eltrombopag (Promacta)due to the potential for falsely elevated results. ALTI 21 U/L 6-54 [facility] Patients taking Sulfasalazine and/or Sul fapyridine may havefalsely depressed ALT levels. Patients should be drawn forALT before the initial administration of either drug. AST 18 U/L 8-40 [facility] Patients taking Sulfasalazine and/or Sul fapyridine may havefalsely depressed AST levels. Patients should be drawn forAST before the initial administration of either drug. ID Date Data Source [id number] 09/02/2020 05:41:00 AM EST [facility] Name Value Range Interpretation Code Description Data Zahraa rce(s) Supporting Document(s) D-DIMER 4.40 mg/L [facility] CUT OFF VALUE = 0.5 mg/L The negative pr edictive value for DVT or PE is at 98% whenthe result is below the cut off. ID Date Data Source [id number] 09/02/2020 05:15:00 AM EST [facility] Name Value Range Interpretation Code Description Data Zahraa rce(s) Supporting Document(s) WBC 12.16 x10E3/uL 4.0-10.5 [facility] RBC 3.69 x10E6/uL 4.70-6.00 [facility] Hemoglobin 11.3 g/dL 14.0-18.0 [facility] Hematocrit 34.5 % 42.0-52.0 [facility] MCV 93.5 fL 81.0-99.0 [facility] MCH 30.6 pg 27.0-31.0 [facility] MCHC 32.8 g/dL 32.7-35.6 [facility] RDW 14.0 % 11.5-14.0 [facility] Platelet count 70 x10E3/uL 150-450 [facility] MPV 12.2 fl 6.9-9.5 [facility] Neutrophils 89.4 % 34-64 [facility] Lymphocytes 6.2 % 25-45 [facility] Monocytes 3.4 % 1.7-10.6 [facility] Eosinophils 0.2 % 0.4-7.0 [facility] Basophils 0.1 % 0.1-2.0 [facility] Imm. Gran. 0.7 % 0.1-2.0 N [facility] Abs. Neutro. 10.88 x10E3/uL 1.2-7.6 [facility] Abs. Lymph. 0.75 x10E3/uL 1.0-3.5 [facility] Abs. [facility]. 0.41 x10E3/uL 0.1-1.0 [facility] Abs. Eosin. 0.02 x10E3/uL 0.1-0.7 [facility] Abs. Baso. 0.01 x10E3/uL 0.0-0.1 [facility] Abs. Imm. Gran. 0.09 x10E3/uL 0.0-0.1 N [facility] spital ANRBC% 0 % 0 [facility] ID Date Data Source [id number] 09/01/2020 08:31:00 PM EST [facility] Name Value Range Interpretation Code Description Data Zahraa rce(s) Supporting Document(s) FGLU 380 mg/dL 70-110 H [facility] ID Date Data Source [id number] 09/01/2020 07:03:00 PM EST [facility] Name Value Range Interpretation Code Description Data Zahraa rce(s) Supporting Document(s) FGLU 377 mg/dL 70-110 [facility] ID Date Data Source [id number] 09/01/2020 04:09:00 PM EST [facility] Exam Number: [id number] OF EXAMINATIO N: 09/01/2020 18:02 ESTU/S VENOUS [...] rce(s) Supporting Document(s) ID Date Data Source [id number] 09/01/2020 12:41:00 PM EST [facility] Name Value Range Interpretation Code Description Data Zahraa rce(s) Supporting Document(s) FGLU 288 mg/dL 70-110 [facility] ID Date Data Source [id number] 09/01/2020 11:40:00 [facility] [address] [id number] NOTEPATIENT NAME: ALIREZAJANICE PHYSICIAN: AMADO BAXTER MDAUTHOR: Noe Mendez. DATE: 08/31/20 MR#: [id number] NOTE DATE: 09/01/20 RM#: [id number] TIME: 1151 [...] MeanPulse Ox 96 97 95O2 DeliveryO2 Flow [id number] [id number] 97.4Pulse 57Resp 18B/P 109/53B/P MeanPulse Ox 96O2 DeliveryO2 Flow KvfkEqG4Nczhhd/OutputIntake/Output Summary 24 hours08/31 1900 09/01 0700Intake Total [...] HCl (VITAMIN B1) 100 MG DAILY POTiotropium [place] (Spiriva) 1 puffDAILY INHInsulin Aspart (Humalog Insulin) [...] no lymphadenopathyPsych/Mental Status normal affectResultsLaboratory DataRecent Labs-24 hours08/[id number] 6218 0455ChemistrySodium (136 - 147 mmol/L) 137Potassium (3.5 [...] 10 %) 4Platelet Morphology DECREASEDRBC Morphology 1+ QQTVDEQWQXCN7709/01 0522ChemistryPOC Glucose (70 - 110 mg/dL) 399 HHemoglobin A1c PendingRadiologyEXAM# TYPE/EXAM [id number] CT/CT ANGIO CHEST WITH IV FOR PDATE [...] pulmonary embolus.PAGE 1 Signed Report Printed From [facility], [place] [id number] CONSULTATIONDate of : 1965 Name: JANICE VERMA MMedrec Number: [id number] Phys: GISSELLE KAUFMAN JORDAN WORKER-CExam Date: 08/31/2020 Location: 2EASTProcedure: ANGIOCXRPE, CT ANGIO CHEST WITH IV Rad Numb: [id number] \\EXAM# TYPE/EXAM [id number] CT/CT ANGIO CHEST WITH IV FOR PElectronically [...] satisfactory.8. DepressionA&PContinue Prozac9. BPH (benign prostatic hyperplasia)A&PContinue Tufqlp69. HUMAN RHINOVIRUSA&PSupportive care.11. Elevated d-dimerA&PCTA ruled out PE. Doubt DVT in lower extremities however ultrasound ispending. This will need follow-up.Additional NotesDVT prophylaxis with LovenoxHe is on PPI for GI prophylaxis given his steroid useTotal time spent 35 minutesDisposition plan discharge after remdesivir complete.Resuscitation status Full codePlan discussed with patientCase discussed with casework supervisor, nursing staffADDENDUM: Gisselle Mendez on 09/01/20 at 1749EXAM# TYPE/EXAM [id number] US/U/S VENOUS DOPP ARM/LEG BILADATE OF EXAMINATION: [...] rce(s) Supporting Document(s) ID Date Data Source [id number] 09/01/2020 05:29:00 AM EST [facility] Name Value Range Interpretation Code Description Data Zahraa rce(s) Supporting Document(s) FGLU 399 mg/dL 70-110 H [facility] ID Date Data Source [id number] 09/01/2020 11:54:00 AM EST [facility] COMMENTS TO LAB: off am labs Name Value Range Interpretation Code Description Data Zahraa rce(s) Supporting Document(s) HbA1C 7.50 % 3.8-5.6 H [facility] Suggested Diagnosis HbA1c% Diabet ic >/= 6.5Prediabetes 5.7%-6.4%Normal < 5.7% ID Date Data Source [id number] 09/01/2020 06:26:00 AM EST [facility] Name Value Range Interpretation Code Description Data Zahraa rce(s) Supporting Document(s) WBC 10.21 x10E3/uL 4.0-10.5 [facility] RBC 3.49 x10E6/uL 4.70-6.00 L [facility] Hemoglobin 10.9 g/dL 14.0-18.0 L [facility] Hematocrit 32.9 % 42.0-52.0 L [facility] MCV 94.3 fL 81.0-99.0 [facility] MCH 31.2 pg 27.0-31.0 H [facility] MCHC 33.1 g/dL 32.7-35.6 [facility] RDW 14.3 % 11.5-14.0 H [facility] Platelet count 70 x10E3/uL 150-450 [facility] MPV 11.7 fl 6.9-9.5 [facility] SEG. NEUTROPHIL 82 % 34-64 [facility] BAND 8 % 5-11 [facility] LYMPHOCYTE 6 % 25-45 L [facility] MONOCYTES 4 % 2-10 [facility] PLATELET MORPH DECREASED [facility] PLATELET MORPHOLOGY EXPECTED RESULT:NORM AL = NO REMARKABLE MORPHOLOGYAny findings other than Normal will be reported and areconsidered Abnormal. The significance of Abnormal findingsare to be clinically correlated by the provider. RBC MORPHOLOGY 1+ ANISOCYTOSIS N [facility] ospital RBC MORPHOLOGY EXPECTED RESULTS: NORMAL = NORMOCHROMIC, NORMOCYTIC CELLSAny findings other than Normal will be reported and areconsidered Abnormal. The significance of Abnormalfindings are to be clinically correlated by the provider. ID Date Data Source [id number] 09/01/2020 05:52:00 AM EST [facility] Name Value Range Interpretation Code Description Data Zahraa rce(s) Supporting Document(s) GLU 350 mg/dL 70-110 H [facility] Patients taking Sulfasalazine may have f alsely depressedGlucose levels. Patients taking Sulfapyridine may havefalsely elevated Glucose levels. Patients should be drawnfor Glucose before the initial administration of eitherdrug. BUN 20 mg/dL 7-23 [facility] CRE 1.210 mg/dL 0.500-1.300 [facility] GFR > 60 mL/min [facility] CHLORIDE 106 mmol/L 99-110 [facility] NA 137 mmol/L 136-147 [facility] POTASSIUM 4.1 mmol/L 3.5-5.1 [facility] TCO2 21 mmol/L 20-33 [facility] ANION GAP 14.1 10.0-20.0 [facility] CA 7.0 mg/dL 8.3-10.7 [facility] ALKALINE PHOS 71 U/L 45-117 [facility] TP 5.2 g/dL 6.0-7.8 [facility] ALB 2.6 g/dL 3.5-5.0 [facility] ESRD Dialysis patient Albumin reference range: 2.9-4.4 g/dL GL 2.6 g/dL 2.3-3.5 [facility] A/G 1.0 1.0-2.5 [facility] T. BILIRUBIN 0.4 mg/dL 0.1-1.1 [facility] [place] Total Bilirubin is n ot recommended forpatients undergoing treatment with eltrombopag (Promacta)due to the potential for falsely elevated results. ALTI 22 U/L 6-54 [facility] Patients taking Sulfasalazine and/or Sul fapyridine may havefalsely depressed ALT levels. Patients should be drawn forALT before the initial administration of either drug. AST 13 U/L 8-40 [facility] Patients taking Sulfasalazine and/or Sul fapyridine may havefalsely depressed AST levels. Patients should be drawn forAST before the initial administration of either drug. ID Date Data Source [id number] 09/01/2020 05:49:00 AM EST [facility] Name Value Range Interpretation Code Description Data Zahraa rce(s) Supporting Document(s) C-REACTIVE PROT 15.50 mg/dL 0.0-0.49 [facility] ID Date Data Source [id number] 09/01/2020 05:49:00 AM EST [facility] Name Value Range Interpretation Code Description Data Zahraa rce(s) Supporting Document(s) MAGNESIUM 1.9 mg/dL 1.6-2.6 [facility] ID Date Data Source [id number] 08/31/2020 08:22:00 PM EST [facility] Exam Number: [id number] OF EXAMINATIO N: 08/31/2020 18:02 ESTCT ANGIO [...] rce(s) Supporting Document(s) ID Date Data Source [id number] 08/31/2020 04:57:00 PM EST [facility] Name Value Range Interpretation Code Description Data Zahraa rce(s) Supporting Document(s) FGLU 349 mg/dL 70-110 H [facility] ID Date Data Source [id number] 08/31/2020 01:26:00 PM EST [facility] Name Value Range Interpretation Code Description Data Zahraa rce(s) Supporting Document(s) FGLU 231 mg/dL 70-110 [facility] ID Date Data Source [id number] 09/05/2020 12:42:00 PM EST [facility] Name Value Range Interpretation Code Description Data Zahraa rce(s) Supporting Document(s) [facility] ID Date Data Source [id number] 09/05/2020 12:42:00 PM EST [facility] Name Value Range Interpretation Code Description Data Zahraa rce(s) Supporting Document(s) [facility] ID Date Data Source [id number] 08/31/2020 08:42:00 AM EST [facility] Name Value Range Interpretation Code Description Data Zahraa rce(s) Supporting Document(s) LACTIC ACID 2 2.0 MMOL/L 0.4-2.0 [facility] ID Date Data Source [id number] 08/31/2020 05:54:00 AM EST [facility] Name Value Range Interpretation Code Description Data Zahraa rce(s) Supporting Document(s) FGLU 301 mg/dL 70-110 [facility] ID Date Data Source [id number] 08/31/2020 05:29:00 AM EST [facility] Name Value Range Interpretation Code Description Data Zahraa rce(s) Supporting Document(s) WBC 13.84 x10E3/uL 4.0-10.5 [facility] RBC 3.77 x10E6/uL 4.70-6.00 [facility] Hemoglobin 11.6 g/dL 14.0-18.0 [facility] Hematocrit 34.9 % 42.0-52.0 [facility] MCV 92.6 fL 81.0-99.0 [facility] MCH 30.8 pg 27.0-31.0 [facility] MCHC 33.2 g/dL 32.7-35.6 [facility] RDW 14.4 % 11.5-14.0 [facility] Platelet count 82 x10E3/uL 150-450 [facility] MPV 11.8 fl 6.9-9.5 [facility] ANRBC% 0 % 0 [facility] SEG. NEUTROPHIL 82 % 34-64 [facility] BAND 5 % 5-11 [facility] LYMPHOCYTE 8 % 25-45 L [facility] MONOCYTES 5 % 2-10 N [facility] PLATELET MORPH DECREASED [facility] PLATELET MORPHOLOGY EXPECTED RESULT:NORM AL = NO REMARKABLE MORPHOLOGYAny findings other than Normal will be reported and areconsidered Abnormal. The significance of Abnormal findingsare to be clinically correlated by the provider. ID Date Data Source [id number] 08/31/2020 05:11:00 AM EST [facility] Name Value Range Interpretation Code Description Data Azhraa rce(s) Supporting Document(s) MAGNESIUM 1.7 mg/dL 1.6-2.6 N [facility] ID Date Data Source [id number] 08/31/2020 05:11:00 AM EST [facility] Name Value Range Interpretation Code Description Data Zahraa rce(s) Supporting Document(s) MELISSA 2.7 mg/dL 2.5-4.5 N [facility] ID Date Data Source [id number] 08/31/2020 05:11:00 AM EST [facility] Name Value Range Interpretation Code Description Data Zahraa rce(s) Supporting Document(s) TROPI < 0.015 ng/mL 0.000-0.079 [facility] ID Date Data Source [id number] 08/31/2020 05:11:00 AM EST [facility] Name Value Range Interpretation Code Description Data Zahraa rce(s) Supporting Document(s) C-REACTIVE PROT 11.70 mg/dL 0.0-0.49 [facility] ID Date Data Source [id number] 08/31/2020 05:11:00 AM EST [facility] Name Value Range Interpretation Code Description Data Zahraa rce(s) Supporting Document(s) GLU 296 mg/dL 70-110 [facility] Patients taking Sulfasalazine may have f alsely depressedGlucose levels. Patients taking Sulfapyridine may havefalsely elevated Glucose levels. Patients should be drawnfor Glucose before the initial administration of eitherdrug. BUN 18 mg/dL 7-23 [facility] CRE 1.220 mg/dL 0.500-1.300 [facility] GFR > 60 mL/min [facility] CHLORIDE 105 mmol/L 99-110 [facility] NA 136 mmol/L 136-147 [facility] POTASSIUM 4.7 mmol/L 3.5-5.1 [facility] TCO2 22 mmol/L 20-33 [facility] ANION GAP 13.7 10.0-20.0 [facility] CA 7.2 mg/dL 8.3-10.7 L [facility] ALKALINE PHOS 71 U/L 45-117 [facility] TP 6.0 g/dL 6.0-7.8 [facility] ALB 2.9 g/dL 3.5-5.0 [facility] ESRD Dialysis patient Albumin reference range: 2.9-4.4 g/dL GL 3.1 g/dL 2.3-3.5 [facility] A/G 0.9 1.0-2.5 [facility] T. BILIRUBIN 0.4 mg/dL 0.1-1.1 [facility] [place] Total Bilirubin is n ot recommended forpatients undergoing treatment with eltrombopag (Promacta)due to the potential for falsely elevated results. ALTI 37 U/L 6-54 [facility] Patients taking Sulfasalazine and/or Sul fapyridine may havefalsely depressed ALT levels. Patients should be drawn forALT before the initial administration of either drug. AST 27 U/L 8-40 [facility] Patients taking Sulfasalazine and/or Sul fapyridine may havefalsely depressed AST levels. Patients should be drawn forAST before the initial administration of either drug. ID Date Data Source [id number] 08/31/2020 05:05:00 AM EST [facility] Name Value Range Interpretation Code Description Data Zahraa rce(s) Supporting Document(s) TROPI < 0.015 ng/mL 0.000-0.079 [facility] Date Data Source [id number] 08/31/2020 04:57:00 AM EST [facility] Name Value Range Interpretation Code Description Data Zahraa rce(s) Supporting Document(s) LACTIC ACID JANIA 2.6 mmol/L 0.4-2.0 [facility] ID Date Data Source [id number] 08/31/2020 04:56:00 AM EST [facility] Name Value Range Interpretation Code Description Data Zahraa rce(s) Supporting Document(s) D-DIMER 1.79 mg/L H [facility] CUT OFF VALUE = 0.5 mg/L The negative pr edictive value for DVT or PE is at 98% whenthe result is below the cut off. ID Date Data Source [id number] 08/31/2020 03:33:00 AM EST [facility] [address] [address]HVAQRYP AND PHYSICALPATIENT NAME: JANICE VERMA MR#: [id number] PHYSICIAN: AMADO BAXTER MDAUTHOR: Amado Baxter MD DATE: 08/31/20 RM#: [id number] & PHYSICAL DATE: 08/31/20 : 65EVALUATION TIME: 0438HistoryChief Complaint/Admit ReasonChest pain and shortness of breathHistory of Presenting [id number] male with a past medical history of diabetes, chronicalcohol abuse, cirrhosis, depression, GERD, BPH, hypertension, hematemesispresented to the ED at [facility] with complaints of centrally locatedchest pain scribed as dull and sharp 8 out of 10 and shortness of breath whichstarted yesterday but has worsened to the point where he needed to be evaluatedin the ER. Reported to me chest pain does not radiate and there are nodiaphoresis. There was some nausea and bilious vomiting x1. EKG at [facility] showed nonspecific ST/T wave changes, troponin was negative. At [facility] patient was found on chest x-ray and CT of the chest without IVcontrast to have multi focal consolidations consistent with pneumonia likelyCOVID-19 pulmonary disease. Patient tested positive for COVID-19, and humanrhinovirus also found with severe sepsis given IV fluids at [facility].Patient's O2 saturation ranges in the mid 90s on room air. Temperature of99.5. Lactic acid of 4.8. Ferritin 171. VBG with pH of 7.3, PCO2 of 30.7,PO2 of 58. Denies any abdominal pain, palpitations, diarrhea, h eadache,dizziness or lightheadedness. Patient was given remdesivir, dexamethasone,ceftriaxone, azithromycin, Xopenex, aspirin, morphine and IV fluids at [facility] and transferred to [facility] for further management.Past Medical/Surgical HistoryPast Medical/Surgical HistoryMedical ProblemsBPH (benign prostatic hyperplasia)Chest painChronic alcohol abuseDepressionDiabetesHUMAN RHINOVIRUSHyperlipidemiaHypertensionPneumonia due to COVID-19 virusSevere sepsisReconciled Home Med ListSee Reconciled Home Medication ListAllergiesCoded Allergies:niacin (Intermediate, FACIAL REDDNESS/ITCHING 04/17/17)Family history Father from an PA at age of 68.Social History no recreational [...] polyuria.NeurologicalDenies: dizziness, seizure.PsychDenies: agitation, anxiety.ExamVital SignsVital Signs-24 HRS12/583630Qfgm 97.8Pulse 75Resp 17B/P 118/72B/P MeanPulse Ox 94O2 DeliveryO2 Flow YgnyKzX4Gwblxsid ExaminationGeneral Appearance no acute distress, afebrile, alert, [...] normal affectData ReviewLaboratory DataLaboratory data from [facility] on 08/30/2020.WBC 19.7, hemoglobin 12.9 hematocrit 37.6, [...] human rhinovirus.Imaging1. Chest x-ray report from [facility] done 08/30/2020:Findings:Patchy bilateral lower lobe infiltrates left greater than right most concerningfor multifocal pneumonia. COVID-19 pulmonary disease cannot be excluded. Noeffusion. No pneumothorax. The sternum and cardiac silhouette are normal.Impression:Findings consistent with multifocal pneumonia. Patient should be evaluated forCOVID-[address] of the chest without IV contrast done at [facility] on 08/30/2020.Findings:Diffuse patchy bilateral areas of consolidation [...] 324 mg of chewable aspirin at [facility]. EKG withnonspecific ST-T wave changes. Troponin was negative at [facility].-We will cycle troponin- Monitor on telemetry every 4 vital signs.-Morphine as needed for pain4. DiabetesA&PPatient placed on insulin sliding scale. Monitor fingersticks.5. Chronic alcohol abuseA&PChronic alcohol abuse. Last drink yesterday.-Place patient on [facility] protocol-Start folic acid, thiamine. Will hold a [...] rce(s) Supporting Document(s) ID Date Data Source [id number] 08/30/2020 09:53:00 PM [facility] TSYSORDER [id number] Name Value Range Interpretation Code Description Data Zahraa rce(s) Supporting Document(s) LACTIC ACID 2.3 mmol/L 0.4-2.0 H [facility] ID Date Data Source [id number] 08/30/2020 06:54:00 PM EST [facility] [...] rce(s) Supporting Document(s) ID Date Data Source [id number] 08/30/2020 05:57:00 PM EST [facility] [...] rce(s) Supporting Document(s) ID Date Data Source [id number] 08/30/2020 06:07:00 PM EST [facility] TSYSORDER [id number] Name Value Range Interpretation Code Description Data [...] [facility] ID Date Data Source [id number] 09/06/2020 11:33:00 AM EST [facility] SECOND SET Name Value Range Interpretation Code Description Data Zahraa rce(s) Supporting Document(s) [facility] ID Date Data Source [id number] 09/06/2020 11:33:00 AM EST [facility] Name Value Range Interpretation Code Description Data Zahraa rce(s) Supporting Document(s) [facility] ID Date Data Source [id number] 08/30/2020 03:35:00 PM EST [facility] Name Value Range Interpretation Code Description Data Zahraa rce(s) Supporting Document(s) SARS COV2 TRP [facility] This lab was [facility] by [facility] and reported by [facility]. ID Date Data Source [id number] 08/30/2020 05:19:00 PM EST [facility] TSYSORDER [id number] Name Value Range Interpretation Code Description Data Zahraa rce(s) Supporting Document(s) FERRITIN 171 ng/mL 26-388 [facility] ID Date Data Source [id number] 08/30/2020 05:11:00 PM EST [facility] TSYSORDER [id number] Name Value Range Interpretation Code Description Data Zahraa rce(s) Supporting Document(s) LACTIC ACID 4.8 mmol/L 0.4-2.0 H [facility] ID Date Data Source [id number] 08/30/2020 05:06:00 PM EST [facility] TSYSORDER [id number] Name Value Range Interpretation Code Description Data Zahraa rce(s) Supporting Document(s) C REACTIVE PROTEIN 11.5 mg/L 0.0-3.0 [facility] ID Date Data Source [id number] 08/30/2020 05:06:00 PM EST [facility] TSYSORDER [id number] Name Value Range Interpretation Code Description Data Zahraa rce(s) Supporting Document(s) CREATINE PHOSPHOKINASE 164 U/L 39-308 [facility]ital ID Date Data Source [id number] 08/30/2020 04:28:00 PM EST [facility] TSYSORDER [id number] Name Value Range Interpretation Code Description Data Zahraa rce(s) Supporting Document(s) GLUCOSE 280 mg/dL 74-106 H [facility] BLOOD UREA NITROGEN 20 mg/dL 7-18 H [facility] ital CREATININE 1.25 mg/dL 0.7-1.3 [facility] SODIUM 130 mmol/L 136-145 L [facility] POTASSIUM 4.8 mmol/L 3.5-5.1 [facility] CHLORIDE 95 mmol/L 98-107 L [facility] CO2 18 mmol/L 21-32 L [facility] CALCIUM 8.4 mg/dL 8.5-10.1 L [facility] ANION GAP 17.0 mmol/L 5-12 H [facility] GLOMERULAR FILTRATION RATE 60 mL/min [facility] GFR IS CALCULATED IN mL/min/1.73m2 VINICIUS L FUNCTION: >90MILDLY DECREASED: 60-89MILDY TO MODERATELY DECREASED: 45-59 MODERATELY TO SEVERELY DECREASED: 30-44SEVERELY DECREASED: 15-29RENAL FAILURE: <15 AST 46 U/L 15-37 H [facility] ALT 45 U/L 12-78 [facility] ALKALINE PHOSPHATASE 86 U/L 46-116 [facility] pital TOTAL BILIRUBIN 0.4 mg/dL 0.2-1.0 [facility] TOTAL PROTEIN 7.3 g/dl 6.4-8.2 [facility] ALBUMIN 3.8 gm/dL 3.4-5.0 [facility] ID Date Data Source [id number] 08/30/2020 04:21:00 PM EST [facility] TSYSORDER [id number] Name Value Range Interpretation Code Description Data Zahraa rce(s) Supporting Document(s) FREE T4 1.0 ng/dL 0.76-1.46 [facility] ID Date Data Source [id number] 08/30/2020 04:21:00 PM [facility] [id number] Name Value Range Interpretation Code Description Data Zahraa rce(s) Supporting Document(s) TSH 0.868 uIU/mL 0.36-3.74 [facility] ID Date Data Source [id number] 08/30/2020 04:19:00 PM EST [facility] Name Value Range Interpretation Code Description Data Zahraa rce(s) Supporting Document(s) PARTIAL THROMBOPLASTIN TIME 26.0 SECONDS 21.2-27.3 [facility] ID Date Data Source [id number] 08/30/2020 04:19:00 PM EST [facility] Name Value Range Interpretation Code Description Data Zahraa rce(s) Supporting Document(s) PROTHROMBIN TIME (PATIENT) 10.9 SECONDS 9.1-11.6 [facility] INR 1.05 0.87-1.06 [facility] ID Date Data Source [id number] 08/30/2020 03:16:00 PM [facility] TSYSORDER [id number] Name Value Range Interpretation Code Description Data Zahraa rce(s) Supporting Document(s) NEUTROPHILS 87 % 50-80 H [facility] BAND 6 % 0-5 H [facility] LYMPHOCYTE 4 % 25-50 L [facility] MONOCYTE 3 % 2.0-10.0 [facility] PLATELET ESTIMATE DECREASED NORMAL [facility] RBC MORPHOLOGY EXPECTED RESULTS:NORMAL= NORMOCHROMIC, NORMOCYTIC CELLSAbnormal Morphologic Findings > or = to 1+ are reported.Clinicopathologic correlation by the provider is required todetermine significance of finding. ID Date Data Source [id number] 08/30/2020 04:17:00 PM [facility] TSYSORDER [id number] Name Value Range Interpretation Code Description Data [facility] rce(s) Supporting Document(s) WHITE BLOOD COUNT 19.7 K/mm3 4.0-10.0 [facility] RED BLOOD COUNT 4.16 M/mm3 4.50-6.00 L [facility] HEMOGLOBIN 12.9 gm/dL 14.0-18.0 L [facility] HEMATOCRIT 37.6 % 42.0-54.0 L [facility] MEAN CELL VOLUME 90.4 fl 80-96 [facility] MEAN CORPUSCULAR HEMOGLOBIN 31.0 pg 27.0-31.0 H [facility] MEAN CORPUSCULAR HGB CONC 34.3 g/dl 32.0-36.0 [facility] RED CELL DISTRIBUTION WIDTH 14.0 % 10.0-14.5 [facility] PLATELET COUNT 119 K/mm3 172-450 L [facility] MEAN PLATELET VOLUME 11.4 fl 9.0-13.0 [facility] pital GRAN % 92.7 % 50-80.0 H [facility] IG% 0.3 % 0.0-0.2 [facility] LYMPH % 2.1 % 25.0-50.0 *L [facility] MONO % 4.9 % 2.0-10.0 [facility] EOS % 0.0 % 0-5.0 [facility] BASO % 0.0 % 0.0-2.0 [facility] GRAN # 18.2 K/mm3 2.0-8.00 *H [facility] IG# 0.1 K/mm3 0.0-0.2 [facility] LYMPH # 0.4 K/mm3 1.0-5.0 L [facility] MONO # 1.0 K/mm3 0.10-1.20 [facility] EOS # 0.0 K/mm3 0.0-0.5 [facility] BASO # 0.0 K/mm3 0.0-0.2 [facility] ID Date Data Source [id number] 08/30/2020 04:45:00 PM EST [facility] TSYSORDER [id number] Name Value Range Interpretation Code Description Data Zahraa rce(s) Supporting Document(s) Adenovirus Not Detected Detected Not [facility]spital Coronavirus 229E Not Detected Detected Not [facility] Coronavirus HKU1 Not Detected Detected Not [facility] Coronavirus NL63 Not Detected Detected Not [facility] Coronavirus OC43 Not Detected Detected Not [facility] Sars Cov 2 DETECTED Detected Not [facility] Human Metapneumovirus Not Detected Detected [facility] Human Rhinovirus DETECTED Detected [facility] Influenza A Not Detected Detected [facility] Influenza B Not Detected Detected Not [facility] Parainfluenza Virus 1 Not Detected Detected [facility] Parainfluenza Virus 2 Not Detected Detected Not [facility] Parainfluenza Virus 3 Not Detected Detected [facility] Parainfluenza Virus 4 Not Detected Detected Not [facility] Respiratory Syncytial Virus Not Detected Detected Not [facility] Bordetella parapertus ([id number]) Not Detected Detected Not [facility] Bordetella pertussis (ptxP) Not Detected Detected Not [facility] Chlamydia pneumoniae Not Detected Detected Not [facility] Mycoplasma pneumoniae Not Detected Detected Not [facility] The Above results have been determined b y using the [employer] system.[employer] is an automated in vitro diagnostic system thatutilizes nested multiplex Polymerase Chain Reaction (PCR)and high-resolution melting analysis to detect and identifymultiple nucleic acid targets from clinical specimens. ID Date Data Source [id number] 08/30/2020 04:28:00 PM EST [facility] TSYSORDER [id number] Name Value Range Interpretation Code Description Data Zahraa rce(s) Supporting Document(s) MAGNESIUM 1.8 mg/dL 1.8-2.4 [facility] ID Date Data Source [id number] 08/30/2020 04:28:00 PM EST [facility] TSYSORDER [id number] Name Value Range Interpretation Code Description Data Zahraa rce(s) Supporting Document(s) TROPONIN I < 0.017 ng/mL 0.0-0.056 [facility] ID Date Data Source [id number] 08/30/2020 04:28:00 PM EST [facility] TSYSORDER [id number] Name Value Range Interpretation Code Description Data Zahraa rce(s) Supporting Document(s) LIPASE 123 U/L 73-393 [facility] ID Date Data Source [id number] 08/18/2020 11:00:00 PM EST [facility] Name Value Range Interpretation Code Description Data Zahraa rce(s) Supporting Document(s) SARS coronavirus 2 RNA [Presence] in Res piratory specimen by [facility] with probe detection [facility] This lab was ordered by [facility] a nd reported by [facility]. ID Date Data Source [id number] 08/09/2020 09:20:00 AM EST [facility] Name Value Range Interpretation Code Description Data Zahraa rce(s) Supporting Document(s) SARS coronavirus 2 RNA [Presence] in Res piratory specimen by [facility] with probe detection [facility] This lab was ordered by [facility] a nd reported by [facility]. ID Date Data Source [id number] 07/13/2020 05:03:06 PM EST [facility] Name Value Range Interpretation Code Description Data Zahraa rce(s) Supporting Document(s) Discharge Summary [facility] [id number] lbm [file] [id number] ID Date Data Source [id number] 07/10/2020 12:00:27 PM [facility] Name Value Range Interpretation Code Description Data Zahraa rce(s) Supporting Document(s) Glucose [Mass/volume] in Capillary blood by Glucometer 229 mg/dL 70- 140 H [facility] ID Date Data Source [id number] 07/10/2020 09:43:36 AM [facility] Name Value Range Interpretation Code Description Data Zahraa rce(s) Supporting Document(s) Glucose [Mass/volume] in Capillary blood by Glucometer 203 mg/dL 70- 140 H [facility] ID Date Data Source [id number] 07/10/2020 04:22:11 AM [facility] Name Value Range Interpretation Code Description Data Zahraa rce(s) Supporting Document(s) Leukocytes [#/volume] in Blood by Automated count 3.9 10*3/uL 4-10 L [facility] Erythrocytes [#/volume] in Blood by Automated count 3.40 10*6/uL 4.6- 6.1 L [facility] Hemoglobin [Mass/volume] in Blood 10.7 g/dL 13.5-18 L [facility] Hematocrit [Volume Fraction] of Blood by Automated count 31.6 % 4 1-53 L [facility] Erythrocyte mean corpuscular volume [Entitic volume] by Auto mated count 92.8 fL 80-96 [facility] Erythrocyte mean corpuscular hemoglobin [Entitic mass] by Automated count 31.4 pg 27-33 [facility] Erythrocyte mean corpuscular hemoglobin concentration [Mass/volume] by Automated count 33.8 g/dL 32.0-36.0 [facility] Erythrocyte distribution width [Ratio] by Automated count 14.5 % 11.5-14.5 [facility] Platelets [#/volume] in Blood by Automated count 58 10*3/uL 150-400 L [facility] Differential cell count method - Blood [facility] Neutrophils/100 leukocytes in Blood by Automated count 59 % [facility] Lymphocytes/100 leukocytes in Blood by Automated count 26 % [facility] Monocytes/100 leukocytes in Blood by Automated count 12 % [facility] Eosinophils/100 leukocytes in Blood by Automated count 2 % [facility] Basophils/100 leukocytes in Blood by Automated count 1 % [facility] Neutrophils [#/volume] in Blood by Automated count 2.31 10*3/uL 1.8-7 .0 [facility] Lymphocytes [#/volume] in Blood by Automated count 1.02 10*3/uL 1.2-4 .0 L [facility] Monocytes [#/volume] in Blood by Automated count 0.47 10*3/uL 0-0.8 [facility] Eosinophils [#/volume] in Blood by Automated count 0.10 10*3/uL 0-0.5 [facility] Basophils [#/volume] in Blood by Automated count 0.03 10*3/uL 0-0.2 [facility] Nucleated erythrocytes/100 leukocytes [Ratio] in Blood by Automated count 0 /100{WBCs} 0-0 [facility] ID Date Data Source [id number] 07/10/2020 04:44:03 AM [facility] Name Value Range Interpretation Code Description Data Zahraa rce(s) Supporting Document(s) Phosphate [Mass/volume] in Serum or Plasma 2.4 mg/dL 2.5-4.5 [facility] ID Date Data Source [id number] 07/10/2020 04:44:03 AM [facility] Name Value Range Interpretation Code Description Data Zahraa rce(s) Supporting Document(s) Albumin [Mass/volume] in Serum or Plasma by Bromocresol green (BCG) dye binding method 3.2 g/dL 3.5-5.2 [facility] Bilirubin.total [Mass/volume] in Serum or Plasma 0.4 mg/dL <1.2 [facility] Calcium [Mass/volume] in Serum or Plasma 8.0 mg/dL 8.6-10.0 [facility] Chloride [Moles/volume] in Serum or Plasma 107 mmol/L 98-107 [facility] Creatinine [Mass/volume] in Serum or Plasma 0.75 mg/dL 0.70-1.20 [facility] Glucose [Mass/volume] in Serum or Plasma 122 mg/dL 70-140 [facility] Alkaline phosphatase [Enzymatic activity/volume] in Serum or Plasma 55 U/L 40-129 [facility] Potassium [Moles/volume] in Serum or Plasma 3.6 mmol/L 3.4-5.1 [facility] Protein [Mass/volume] in Serum or Plasma 5.1 g/dL 6.4-8.3 [facility] Sodium [Moles/volume] in Serum or Plasma 141 mmol/L 136-145 [facility] Aspartate aminotransferase [Enzymatic activity/volume] in Serum or Plasma 37 U/L <40 [facility] Urea nitrogen [Mass/volume] in Serum or Plasma 4 mg/dL 6-20 [facility] Osmolality of Serum or Plasma by calculation 290 mosm/kg 275-300 [facility] Creatinine/Urea nitrogen [Mass Ratio] in Serum or Plasma 6 [facility] Bicarbonate [Moles/volume] in Serum 28 mmol/L 22-29 [facility] Alanine aminotransferase [Enzymatic activity/volume] in Seru m or Plasma 30 U/L <41 [facility] Anion gap 3 in Serum or Plasma 6 mmol/L 8-15 L [facility] Glomerular filtration rate/1.73 sq M pre dicted among non-blacks [Volume Rate/Area] in Serum or Plasma by Creatinine-based formula (MDRD) >6 0 [facility] Glomerular filtration rate/1.73 sq M pre dicted among blacks [Volume Rate/Area] in Serum or Plasma by Creatinine-based formula (MDRD) >60 [facility] ID Date Data Source [id number] 07/10/2020 05:42:51 AM [facility] Value Range Interpretation Code Description Data Zahraa rce(s) Supporting Document(s) Magnesium [Mass/volume] in Serum or Plasma 1.6 mg/dL 1.6-2.6 [facility] ID Date Data Source [id number] 07/09/2020 06:59:49 PM [facility] Value Range Interpretation Code Description Data Zahraa rce(s) Supporting Document(s) Phosphate [Mass/volume] in Serum or Plasma 2.2 mg/dL 2.5-4.5 [facility] ID Date Data Source [id number] 07/09/2020 04:52:28 PM [facility] Value Range Interpretation Code Description Data Zahraa rce(s) Supporting Document(s) Glucose [Mass/volume] in Capillary blood by Glucometer 125 mg/dL 70- 140 [facility] ID Date Data Source [id number] 07/09/2020 04:51:19 PM [facility] Value Range Interpretation Code Description Data Zahraa rce(s) Supporting Document(s) Phosphate [Mass/volume] in Serum or Plasma 2.2 mg/dL 2.5-4.5 [facility] ID Date Data Source [id number] 07/09/2020 12:28:42 PM [facility] Value Range Interpretation Code Description Data Zahraa rce(s) Supporting Document(s) Glucose [Mass/volume] in Capillary blood by Glucometer 122 mg/dL 70- 140 [facility] ID Date Data Source [id number] 07/09/2020 10:54:16 AM [facility] Value Range Interpretation Code Description Data Zahraa rce(s) Supporting Document(s) Phosphate [Mass/volume] in Serum or Plasma 2.7 mg/dL 2.5-4.5 [facility] ID Date Data Source [id number] 07/09/2020 09:47:38 [facility] Name Value Range Interpretation Code Description Data Zharaa rce(s) Supporting Document(s) [facility] LMSVUr4hNrZDThUx38/SFXrpGZJje8YjDFmjHGm9JHuiOVLlG0VqNKO6yR3lVOZ4NLgFQhNbDoOuWVK3 m [file] ICAgICAgICAgICAgICAgICAgICAgICAgICAgICAgIC FvXQStBCCsMSRtGMEfJCPhVYFgMXPkAWYpHABnAWLcNERiAYSsPRHoHVRePAHfKAHsXJEkYKVkKF1LNL AgICAgICAgICAgICAgICAgICAgICAgICAgICAgICAgICAgICAgICAgICAgICAgICAgICAgICAgICAgIC AgICAgICAgICAgICAgICAgICAgICAgICAgICAgICAg HPEwLVWuML0LYEOcQWSvPDOaYBUtVTFtORPuIMXuCFGfQIShQEFtVROjIZIfMADwNHGtEDJxGBFuISBh ISTyCQIrWWMdOWXzIEDgKNCfJEUlOSIdLLZnDZMzMBFeJBOvLQNzCVLnTATeTFVxDE4YXOIsBGEuMUMf ICAgICAgICAgICAgICAgICAgICAgICAgICAgICAgIC AgICAgICAgICAgICAgICAgICAgICAgICAgICAgICAgICAgICAgICAgICAgICAgICAgICAgICAgICAgIA 0KICAgICAgICAgICAgICAgICAgICAgICAgICAgICAgICAgICAgICAgICAgICAgICAgICAgICAgICAgIC AgICAgICAgICAgICAgICAgICAgICAgICAgICAgICAg RSVhGHTsRBFkQX9DIBGeJCZnCIJjTSGqYGVsBCTzGSHlQYPsPRYbBUZgBVBrJOXrZGSwCLMgEKVqFDVi TMRhEBPkBNQyXGTqXTUwRSMhLVRaLDOtORQvCJEqLXBfTJMeYTDlQTQwQLUxSKLoWYBfTQ4OQKCuSBZk ICAgICAgICAgICAgICAgICAgICAgICAgICAgICAgIC AgICAgICAgICAgICAgICAgICAgICAgICAgICAgICAgICAgICAgICAgICAgICAgICAgICAgICAgICAgIC IoCG0LIEHkVYDeHMGxYBCzBIVuXPDwCCYaVGChWERvZDBhOEFlEUJyWABeWDYkXHQgAEYyUYGpNIRiYA AgICAgICAgICAgICAgICAgICAgICAgICAgICAgICAg RTYsNLMqNEXgZAOkGP2DNGRbKWVlFDZgRLTuRTYoMHDwIBQcYYHcRINnLYCxMZNcIRGvYLDiLUJsVXRc VYErLYErKAWkJMBoXBQzCZCaKCGwEEHrMKCmXDPvUNGzEVHcLQSuMOBcHXTwEHQoMOFhXQVvKZ9QUWEg ICAgICAgICAgICAgICAgICAgICAgICAgICAgICAgIC AgICAgICAgICAgICAgICAgICAgICAgICAgICAgICAgICAgICAgICAgICAgICAgICAgICAgICAgICAgIC DeCACeWB3FQB78oXTms7P1SSBfBS7euwo/Lk3JCHyqotOzcVYpFQ1GWyIdAI1gri4MFtKeEV0xmq7BRW pCNpMfN5O2qAIdAZXeDNHQRsYvW65lVKbaFr50DFtr JLUqItDpDUb3Tf7SYeEjC8ctGKOqFxA9XHEyByL1OOEzKiQrLOyjOM2Wi9RlbWDcRQu+Bo5ZZR7tx9Kj VWxrRSKePX9abr4ZWNoFOnSbO6YshwD8ISDuWLTjVh2JAYBvPIJteQUwYWEmVIRMSnDaF6WbyE19ZVVO Cj4+SCsojbBvEaeKPvPfRINnn5NoKIs9RU2CQCEcHG a3mQPtH47wv2KwlGEnXonjErC1sRHpQP6aXEWve3ZzFGDXsLZjqOZcMMScRRKdUX4mCZEtMBT7DgZ9VC HZUM4MAWMkJLWntAZcPUBrRDGECB8KWLvgMES6LIGlqaIofIEwDSarXX4CXJYvoxTtVUeaTFPDYXw+Pg 1XTY8mo2MkUUelAAIjNH8dam2LIXgYLlZrW5E9jKPu W7E0BJmeAq5VTKQaBXLqHYwcQZSDRDizEH5PFF6jhbO0VW1DhZCaXHEaXXFrdLXkSPo2T33ooMSxOWxu OD0NBVK+Malvin+Ak5TSWYcRHVmCVIjCzGbVGEEByBfV7KfC5RVs5ZmF8LlMC61zKphdmEwPIdoVV0DLG7j GTHbFNVQQJ4DqNBugM6lbgHxVIFkWTEDJtVgA65kvH PqVLQiUOI1JMAmIp4MMXIiY1XrzzSavEhlehUhVNNeXCSDAV0BFFpursSrtYQcsEipPV00cFjmPG4OQr 5PBzDsRF9brf1TyYIfVm2VJVIdHh2ZRRUyNXAeTYCeNYC0WUYsQoWzUAqaGTYiDDXoUNI7CVZtUZSwRK 9IGqDoNQTyUSx5MsPdCGRwENAskc9QFDYrTLSjBHM7 BYYnCVUxTWBlAGtvALFjFPMbITO0TJGuUXMfGU2PExBoHIXwHDBtLeNiHNNcCVDwkn6WVZXaCVHrTcQr CSRbKUNpCMVkBUyxWTHeJBE4XlA9TOWeSFStLG8FFnCqLUHpLEI6YxGhOFEcROYucx4RDWMpTCQsOSKm MKPuQWVrZBOuETyvGYYiIJT4GxH4IAEoCFYiXF5YYg BrTPBaNLN5KGqcHTWkGKKyyf4ZIHDhYAKdTqe5ZpTiRKKoWGEiKQnuGSGaOQT2VAG2PDMiIWVjTP4IMr UfAWHiRVdtLVusTTZqBIJrtk9ZKWUhNPKcYCVtTyWnGTHsVWMwPDsyCPPvPHW2PeL5GVGyVHCjAZ4YXy OfKYLpMBd5BExbBBDhUOWpjn2CJAVrISXsHLrwPLCc JMZiXUFhZSqsXGXpVQSzDkL4MLEuPZVkJH0ARsBdSAFcCZE2AgNtDOLjUVYjzi8WNALiICRdBEV0NdJt XRNzXCRkLSa6ngXzjJJoVKf9WM2PW8GgdsKlHtKFSa9Lp991XZHgJCUxKq3NE6ixIh6lPIJkQTSEKx6D XNv5YEC6VSV1GYTlWrN4DyL0EoU6TAb3OhGxXAM9Om hiNWY+GHhwUcunZLU8QhN6UJPjOnmxOAztZPnuN1I3TCa2EIT2Yh4aKPRMIz2+DQpzdGFydHhyZWYNCj VyMTI0EQfuNCFKSv3B ID Date Data Source [id number] 07/09/2020 07:52:32 AM EST [facility] Name Value Range Interpretation Code Description Data Zahraa rce(s) Supporting Document(s) Glucose [Mass/volume] in Capillary blood by Glucometer 127 mg/dL 70- 140 [facility] ID Date Data Source [id number] 07/09/2020 01:22:41 AM [facility] Name Value Range Interpretation Code Description Data Zahraa rce(s) Supporting Document(s) Leukocytes [#/volume] in Blood by Automated count 3.5 10*3/uL 4-10 L [facility] Erythrocytes [#/volume] in Blood by Automated count 3.37 10*6/uL 4.6- 6.1 L [facility] Hemoglobin [Mass/volume] in Blood 10.5 g/dL 13.5-18 L [facility] Hematocrit [Volume Fraction] of Blood by Automated count 31.3 % 4 1-53 L [facility] Erythrocyte mean corpuscular volume [Entitic volume] by Auto mated count 92.9 fL 80-96 [facility] Erythrocyte mean corpuscular hemoglobin [Entitic mass] by Automated count 31.3 pg 27-33 [facility] Erythrocyte mean corpuscular hemoglobin concentration [Mass/volume] by Automated count 33.7 g/dL 32.0-36.0 [facility] Erythrocyte distribution width [Ratio] by Automated count 13.9 % 11.5-14.5 [facility] Platelets [#/volume] in Blood by Automated count 60 10*3/uL 150-400 L [facility] Differential cell count method - Blood [facility] Neutrophils/100 leukocytes in Blood by Automated count 52 % [facility] Lymphocytes/100 leukocytes in Blood by Automated count 35 % [facility] Monocytes/100 leukocytes in Blood by Automated count 9 % [facility] Eosinophils/100 leukocytes in Blood by Automated count 3 % [facility] Basophils/100 leukocytes in Blood by Automated count 1 % [facility] Neutrophils [#/volume] in Blood by Automated count 1.83 10*3/uL 1.8-7 .0 [facility] Lymphocytes [#/volume] in Blood by Automated count 1.21 10*3/uL 1.2-4 .0 [facility] Monocytes [#/volume] in Blood by Automated count 0.30 10*3/uL 0-0.8 [facility] Eosinophils [#/volume] in Blood by Automated count 0.11 10*3/uL 0-0.5 [facility] Basophils [#/volume] in Blood by Automated count 0.02 10*3/uL 0-0.2 [facility] Nucleated erythrocytes/100 leukocytes [Ratio] in Blood by Automated count 0 /100{WBCs} 0-0 [facility] ID Date Data Source [id number] 07/09/2020 02:34:04 AM EST [facility] Name Value Range Interpretation Code Description Data Zahraa rce(s) Supporting Document(s) Albumin [Mass/volume] in Serum or Plasma by Bromocresol green (BCG) dye binding method 3.4 g/dL 3.5-5.2 L [facility] Bilirubin.total [Mass/volume] in Serum or Plasma 0.4 mg/dL <1.2 [facility] Calcium [Mass/volume] in Serum or Plasma 7.6 mg/dL 8.6-10.0 [facility] Chloride [Moles/volume] in Serum or Plasma 103 mmol/L 98-107 [facility] Creatinine [Mass/volume] in Serum or Plasma 0.78 mg/dL 0.70-1.20 [facility] Glucose [Mass/volume] in Serum or Plasma 134 mg/dL 70-140 [facility] Alkaline phosphatase [Enzymatic activity/volume] in Serum or Plasma 51 U/L 40-129 [facility] [facility] Potassium [Moles/volume] in Serum or Plasma 3.1 mmol/L 3.4-5.1 L [facility] Protein [Mass/volume] in Serum or Plasma 5.2 g/dL 6.4-8.3 L [facility] Sodium [Moles/volume] in Serum or Plasma 138 mmol/L 136-145 [facility] Aspartate aminotransferase [Enzymatic activity/volume] in Serum or Plasma 36 U/L <40 [facility] Urea nitrogen [Mass/volume] in Serum or Plasma 8 mg/dL 6-20 [facility] Osmolality of Serum or Plasma by calculation 287 mosm/kg 275-300 [facility] Creatinine/Urea nitrogen [Mass Ratio] in Serum or Plasma 10 [facility] Bicarbonate [Moles/volume] in Serum 25 mmol/L 22-29 [facility] Alanine aminotransferase [Enzymatic activity/volume] in Seru m or Plasma 27 U/L <41 [facility] Anion gap 3 in Serum or Plasma 10 mmol/L 8-15 [facility] Glomerular filtration rate/1.73 sq M pre dicted among non-blacks [Volume Rate/Area] in Serum or Plasma by Creatinine-based formula (MDRD) >6 0 [facility] Glomerular filtration rate/1.73 sq M pre dicted among blacks [Volume Rate/Area] in Serum or Plasma by Creatinine-based formula (MDRD) >60 [facility] ID Date Data Source [id number] 07/09/2020 02:34:04 AM [facility] Value Range Interpretation Code Description Data Zahraa rce(s) Supporting Document(s) Phosphate [Mass/volume] in Serum or Plasma 2.6 mg/dL 2.5-4.5 [facility] ID Date Data Source [id number] 07/09/2020 04:17:35 AM [facility] Value Range Interpretation Code Description Data Zahraa rce(s) Supporting Document(s) Magnesium [Mass/volume] in Serum or Plasma 1.4 mg/dL 1.6-2.6 [facility] ID Date Data Source [id number] 07/08/2020 09:26:35 PM [facility] Value Range Interpretation Code Description Data Zahraa rce(s) Supporting Document(s) Glucose [Mass/volume] in Capillary blood by Glucometer 121 mg/dL 70- 140 [facility] ID Date Data Source [id number] 07/08/2020 05:00:26 PM [facility] Value Range Interpretation Code Description Data Zahraa rce(s) Supporting Document(s) Glucose [Mass/volume] in Capillary blood by Glucometer 115 mg/dL 70- 140 [facility] ID Date Data Source [id number] 07/08/2020 12:51:49 PM [facility] Value Range Interpretation Code Description Data Zahraa rce(s) Supporting Document(s) Glucose [Mass/volume] in Capillary blood by Glucometer 126 mg/dL 70- 140 [facility] ID Date Data Source [id number] 07/08/2020 11:08:16 AM [facility] Value Range Interpretation Code Description Data Zahraa rce(s) Supporting Document(s) Phosphate [Mass/volume] in Serum or Plasma 1.7 mg/dL 2.5-4.5 [facility] ID Date Data Source [id number] 07/08/2020 09:18:52 AM EST [facility] Name Value Range Interpretation Code Description Data Zahraa rce(s) Supporting Document(s) [facility] HAGHKd4aAgIKMuLpn7AhZaRpLHLyIK3ekvh8U4Y0xVNpJ2PrxBLwo0foF6VfN7RwURIjNDXNOE0FfILv jb2 [file] yz/8IC08Uzjshk4pou+Ys4gxybxHwnn6XN+soqNLdjavnh5/N483snf0iClWPo7zwByC7+nursing home+LcI/3l [file] Drawing Hand+gX4gnJvNk/TxaPTuf14I5r3C1G+Z3OA8pCQ4rKq JoI5ac3s2uM/L6kZ5ej8lEEDtXSRk8eknux8gcLsm48KzV+kZ3/D52TTO3XMrwO70g3LjcvlEJOs6igN fQmf888baMy+uP+miguel/7F3SijucodBvgSz6d8ZQ/7A3unNeWsibne2o+2vbq7qTfPO1eEMvJuTmoPnJQo [file] wfucyrzSd/7yiNpFO1fY62PkXQ4Q5hm+A+shoe repair cobbler/tAHgnTImPHKLXZUWBdBWvxSxRFpDflR1V13/6PsdHrt [file] h3UwDMVtJDPZVl0+ZjH4OJZ8qVTcZkx9PHh4HFruAUVAJb== ID Date Data Source [id number] 07/08/2020 08:46:36 AM [facility] Name Value Range Interpretation Code Description Data Zahraa rce(s) Supporting Document(s) Glucose [Mass/volume] in Capillary blood by Glucometer 116 mg/dL 70- 140 [facility] ID Date Data Source [id number] 07/08/2020 03:18:38 AM [facility] Name Value Range Interpretation Code Description Data Zahraa rce(s) Supporting Document(s) Leukocytes [#/volume] in Blood by Automated count 4.0 10*3/uL 4-10 [facility] Erythrocytes [#/volume] in Blood by Automated count 3.34 10*6/uL 4.6- 6.1 L [facility] Hemoglobin [Mass/volume] in Blood 10.4 g/dL 13.5-18 L [facility] Hematocrit [Volume Fraction] of Blood by Automated count 31.0 % 4 1-53 L [facility] Erythrocyte mean corpuscular volume [Entitic volume] by Auto mated count 92.9 fL 80-96 [facility] Erythrocyte mean corpuscular hemoglobin [Entitic mass] by Automated count 31.2 pg 27-33 [facility] Erythrocyte mean corpuscular hemoglobin concentration [Mass/volume] by Automated count 33.6 g/dL 32.0-36.0 [facility] Erythrocyte distribution width [Ratio] by Automated count 14.2 % 11.5-14.5 [facility] Platelets [#/volume] in Blood by Automated count 68 10*3/uL 150-400 L [facility] Differential cell count method - Blood [facility] Neutrophils/100 leukocytes in Blood by Automated count 57 % [facility] Lymphocytes/100 leukocytes in Blood by Automated count 31 % [facility] Monocytes/100 leukocytes in Blood by Automated count 8 % [facility] Eosinophils/100 leukocytes in Blood by Automated count 4 % [facility] Basophils/100 leukocytes in Blood by Automated count 0 % [facility] Neutrophils [#/volume] in Blood by Automated count 2.24 10*3/uL 1.8-7 .0 [facility] Lymphocytes [#/volume] in Blood by Automated count 1.25 10*3/uL 1.2-4 .0 [facility] Monocytes [#/volume] in Blood by Automated count 0.32 10*3/uL 0-0.8 [facility] Eosinophils [#/volume] in Blood by Automated count 0.16 10*3/uL 0-0.5 [facility] Basophils [#/volume] in Blood by Automated count 0.01 10*3/uL 0-0.2 [facility] Nucleated erythrocytes/100 leukocytes [Ratio] in Blood by Automated count 0 /100{WBCs} 0-0 [facility] ID Date Data Source [id number] 07/08/2020 03:42:20 AM [facility] Name Value Range Interpretation Code Description Data Zahraa rce(s) Supporting Document(s) Albumin [Mass/volume] in Serum or Plasma by Bromocresol green (BCG) dye binding method 3.4 g/dL 3.5-5.2 L [facility] Bilirubin.total [Mass/volume] in Serum or Plasma 0.5 mg/dL <1.2 [facility] Calcium [Mass/volume] in Serum or Plasma 6.9 mg/dL 8.6-10.0 L [facility] Chloride [Moles/volume] in Serum or Plasma 102 mmol/L 98-107 [facility] Creatinine [Mass/volume] in Serum or Plasma 0.83 mg/dL 0.70-1.20 [facility] Glucose [Mass/volume] in Serum or Plasma 107 mg/dL 70-140 [facility] Alkaline phosphatase [Enzymatic activity/volume] in Serum or Plasma 52 U/L 40-129 [facility] Potassium [Moles/volume] in Serum or Plasma 3.4 mmol/L 3.4-5.1 [facility] Protein [Mass/volume] in Serum or Plasma 5.2 g/dL 6.4-8.3 L [facility] Sodium [Moles/volume] in Serum or Plasma 137 mmol/L 136-145 [facility] Aspartate aminotransferase [Enzymatic activity/volume] in Serum or Plasma 37 U/L <40 [facility] Urea nitrogen [Mass/volume] in Serum or Plasma 12 mg/dL 6-20 [facility] Osmolality of Serum or Plasma by calculation 284 mosm/kg 275-300 [facility] Creatinine/Urea nitrogen [Mass Ratio] in Serum or Plasma 14 [facility] Bicarbonate [Moles/volume] in Serum 28 mmol/L 22-29 [facility] Alanine aminotransferase [Enzymatic activity/volume] in Seru m or Plasma 22 U/L <41 [facility] Anion gap 3 in Serum or Plasma 7 mmol/L 8-15 L [facility] Glomerular filtration rate/1.73 sq M pre dicted among non-blacks [Volume Rate/Area] in Serum or Plasma by Creatinine-based formula (MDRD) >6 0 [facility] Glomerular filtration rate/1.73 sq M pre dicted among blacks [Volume Rate/Area] in Serum or Plasma by Creatinine-based formula (MDRD) >60 [facility] ID Date Data Source [id number] 07/08/2020 03:42:20 AM [facility] Name Value Range Interpretation Code Description Data Zahraa rce(s) Supporting Document(s) Phosphate [Mass/volume] in Serum or Plasma 1.6 mg/dL 2.5-4.5 [facility] ID Date Data Source [id number] 07/08/2020 08:17:22 AM [facility] Value Range Interpretation Code Description Data Zahraa rce(s) Supporting Document(s) Magnesium [Mass/volume] in Serum or Plasma 1.6 mg/dL 1.6-2.6 [facility] ID Date Data Source [id number] 07/07/2020 09:59:53 PM [facility] Value Range Interpretation Code Description Data Zahraa rce(s) Supporting Document(s) Glucose [Mass/volume] in Capillary blood by Glucometer 185 mg/dL 70- 140 H [facility] ID Date Data Source [id number] 07/07/2020 07:24:23 PM [facility] Value Range Interpretation Code Description Data Zahraa rce(s) Supporting Document(s) Leukocytes [#/volume] in Blood by Automated count 4.9 10*3/uL 4-10 [facility] Erythrocytes [#/volume] in Blood by Automated count 3.39 10*6/uL 4.6- 6.1 L [facility] Hemoglobin [Mass/volume] in Blood 10.7 g/dL 13.5-18 L [facility] Hematocrit [Volume Fraction] of Blood by Automated count 31.4 % 4 1-53 L [facility] Erythrocyte mean corpuscular volume [Entitic volume] by Auto mated count 92.7 fL 80-96 [facility] Erythrocyte mean corpuscular hemoglobin [Entitic mass] by Automated count 31.7 pg 27-33 [facility] Erythrocyte mean corpuscular hemoglobin concentration [Mass/volume] by Automated count 34.2 g/dL 32.0-36.0 [facility] Erythrocyte distribution width [Ratio] by Automated count 14.6 % 11.5-14.5 H [facility] Platelets [#/volume] in Blood by Automated count 71 10*3/uL 150-400 L [facility] Differential cell count method - Blood [facility] Neutrophils/100 leukocytes in Blood by Automated count 64 % [facility] Lymphocytes/100 leukocytes in Blood by Automated count 24 % [facility] Monocytes/100 leukocytes in Blood by Automated count 8 % [facility] Eosinophils/100 leukocytes in Blood by Automated count 4 % [facility] Basophils/100 leukocytes in Blood by Automated count 0 % [facility] Neutrophils [#/volume] in Blood by Automated count 3.10 10*3/uL 1.8-7 .0 [facility] Lymphocytes [#/volume] in Blood by Automated count 1.19 10*3/uL 1.2-4 .0 L [facility] Monocytes [#/volume] in Blood by Automated count 0.38 10*3/uL 0-0.8 [facility] Eosinophils [#/volume] in Blood by Automated count 0.18 10*3/uL 0-0.5 [facility] Basophils [#/volume] in Blood by Automated count 0.02 10*3/uL 0-0.2 [facility] Nucleated erythrocytes/100 leukocytes [Ratio] in Blood by Automated count 0 /100{WBCs} 0-0 [facility] ID Date Data Source [id number] 07/07/2020 07:55:59 PM [facility] Name Value Range Interpretation Code Description Data Zahraa rce(s) Supporting Document(s) Phosphate [Mass/volume] in Serum or Plasma 1.0 mg/dL 2.5-4.5 [facility] ID Date Data Source [id number] 07/07/2020 06:18:48 PM [facility] Name Value Range Interpretation Code Description Data Zahraa rce(s) Supporting Document(s) Magnesium [Mass/volume] in Serum or Plasma 1.7 mg/dL 1.6-2.6 [facility] ID Date Data Source [id number] 07/07/2020 06:18:48 PM [facility] Value Range Interpretation Code Description Data Zahraa rce(s) Supporting Document(s) Phosphate [Mass/volume] in Serum or Plasma 1.4 mg/dL 2.5-4.5 L [facility] ID Date Data Source [id number] 07/07/2020 05:59:50 PM [facility] Name Value Range Interpretation Code Description Data Zahraa rce(s) Supporting Document(s) Glucose [Mass/volume] in Capillary blood by Glucometer 127 mg/dL 70- 140 [facility] ID Date Data Source [id number] 07/07/2020 04:49:10 PM [facility] Name Value Range Interpretation Code Description Data Zahraa rce(s) Supporting Document(s) [facility] MMDBMv3kFmRXKlQs61/GUHrmLUApw0BuCJtfTZu0BLdlNAGnE9OmQXW7jM3sQTM1YNzXMuXiVjZjURG7 lbm [file] ICAgICAgICAgICAgICAgICAgICAgICAgICAgICAgIC StNKHuKMPvMQDaVNPpZOByBNNhAVJvNNHiIDCuTPRmHZCfCAXjVMSyIOAiXNSqOPFdQMLqFW6XNMFqSU AgICAgICAgICAgICAgICAgICAgICAgICAgICAgICAgICAgICAgICAgICAgICAgICAgICAgICAgICAgIC AgICAgICAgICAgICAgICAgICAgICAgICAgICAgICAg WYZqMT8SWMNoIJHzSEUeQNKfEZSpNYZkPEUuJQNtALUoYGQwWCSiXDJtWGCbLDZrPAPbIMYhPJGrSCAc SDTbWWVqLZAqUBWoSQIvGGFyNBQtAKApYCXeOMUbWIApXJNmASBrDRNnGAMvGF1OTGJqUGMjTGRyVWHa ICAgICAgICAgICAgICAgICAgICAgICAgICAgICAgIC QxIOExRDIsMRRwHNTyEGJbOHRvVMSuOXUmSAEoWZIrQTSuFWTgPQRdXVKzDYUaSFAmWMMzGGNrUQ7AFO AgICAgICAgICAgICAgICAgICAgICAgICAgICAgICAgICAgICAgICAgICAgICAgICAgICAgICAgICAgIC AgICAgICAgICAgICAgICAgICAgICAgICAgICAgICAg TJArAILkYX8WWKWsUHOfRWAwPWSlGRMzYRDdJACeXGSfLSYfYIXpVFEoFSCwCWKkLOCnCHFqFOZsWNBm DWRyDZYiLCUmWJIdAVCcAQDkYRIfKBPgLYGtUXFuWXQmWCUdKTDsKSXmIPAcMWAmYB1WOGJmRLEpTXKx ICAgICAgICAgICAgICAgICAgICAgICAgICAgICAgIC AgICAgICAgICAgICAgICAgICAgICAgICAgICAgICAgICAgICAgICAgICAgICAgICAgICAgICAgICAgIA 0KICAgICAgICAgICAgICAgICAgICAgICAgICAgICAgICAgICAgICAgICAgICAgICAgICAgICAgICAgIC AgICAgICAgICAgICAgICAgICAgICAgICAgICAgICAg ZKAtSYBuXBGnMF7HBLAjUKUqHTJwPFTdCIGvSBBnUNFmQOEdJRChJONfAOCmADKjFYMmBHFyCTYsZHDq QOLtRSNnIPQyZAHfFCLjNHXuKFBdPFUoPWJcKGDmYTFlWPVsAILkHUThCWWyYAUoHXLsYK6DJLCsCYNo ICAgICAgICAgICAgICAgICAgICAgICAgICAgICAgIC AgICAgICAgICAgICAgICAgICAgICAgICAgICAgICAgICAgICAgICAgICAgICAgICAgICAgICAgICAgIC KfVV4RUF71cGOdq3L1EQSfEI3csyz/Ul1ULIltblMhpHHtYQ1DXaNgJN9rrc6RHlJyTH2khc2BBQtIRx YlI8X5cYVqYCFcEPJWMxNuW43fGKhxHl38AVmqPJNd AjTsUQg1Np5XOqTxN1qlEZSyUzK7NWWaVcH0XXEdNbN9UWDpZjOxHGAnEMJhVHUdLKAKMYB6CQVkYsWf QOisQH9Du6ElnWT4VMm+Zs7LXR7to2PaFTopXPLvZS6raf4VMOjGHcGgO5EhkoT1DBJeXNMvUb1INILd UDSyjHAsXWIxLXDKWlFrK8OpoK00XZNEHg9+DQplbm AnHkoUVeInZRKmc6WjZMx0NE7FYVQzSFe6lJZxL03ls3VjoRYzZbscUZZhlYcweqJEXDOkQ7HknmIcFP zUY0cnHNWzGMIvIf3eHGDdJCZ6SfF9SMPOOW7KISIrGFLfpATdYQYtSYQWIE4EOWmsYZI0PLZlcwMmaE NzXGbiDB0HFRJfagRdNxqjUYYCNGu+Dq2LAA3xp1Ps BOqnBNVzOK5smn2YDAvIGaUlU1I6oWBuQ9D2TCpcWu2LKKKdEHSiMshoJZUSYGelGH6LHV8rlsE9NM7R yJBbTNQvKXVeoFRaQLp1A94wuDNfMGgzRH2UCOW+Malvin+Ae6EYRUxGOYeVJDyKvBqXALMEmIyQ5SaN2CI i2VbM9AaWM98jJinurJsUGkyGX1VAA1aSVOzEDZMSL 8YsMXwlO2bgpQaVITeQQLZDnJbQ59ktRMtWBAnJGN9MADtIr1BVTUdJ5CqorQjsNuldlKdOVKyVVZWEK 4JXWovkiDjqABakVdlUE06bPlsLT2ANu3WVhLmTM9ybk5UfBSgGy2AVAWnJr3LEMKyLKAfJZYmMXJ0UE KyWjFhRZhsMTPxEQZcUIB2QEJjNSOhTA1LEfTqNLCv ClK8ZMdoJYMxLOLplw1UJAUtPVKhAsUpECWnTKJpTLEiCYwhLWWqEEOrEIN7HWVuZIJjWK7TZgXoPHNg NZK1RYtwQJIaZGPqiu2BHJGqFXLhArdwNgKcJIJoTONdLVwdQLAxSWH4Qiu7LIEuVLYiIR4XOePuHNGt UGM7KoqrMZDiAHJvkg1EYDVqCONaKXMiBiSqEGEcEN NbJRwxVXWmPDJaFgPnSDSmCKDbKM2FVqSeMIKeGNU3IpsmHZUaQFSsxl8DDJVrCTKzYbQ3NOZuUPCrBC SpCHtvGCXfVTY3ZBhdGFYgBROlPA1CRkJfWHBvEWwaKWjaYVZcSUXwrr9JIZSfSEIlEERxWYJsUOTfID XmVGedIAGfOUG6FUW2SYUhSHZmNJ1AGqHxQMVcKvL4 VaOuMDMiQGEpqa3CUBDpNDQuLEg6LXXeKOQgOFLgNUmfGERvIYNlGVK3QBXtYNCgTT3ZFoFhAPRvHrJh XLHpWZZhXKPipr2YGNNuMITtRgQcETFuCTXpAZZjOKziSPRqXPMwFUYpCBGpNCFtJM7OYfYhOVKkHgE8 OxKjKBIxUFRcry8TXLAaYTJgJVV9SIZdPTRzTHWlEP skIMZiYFS7YRnjBNVdIAPnCW6AUzLfHVKuHsJ3PyCzAVYlPMVtfl4TIOKnPHVuPEx8DgZxDTLgEPPlWF tnWTHmYBU7Unq6JAIvBWUdQT0CSzIzUZEiJhT1TRuuXZUrCWVgdm5ABLVdHDReKsreXEVnCYBbKGMlBM faZHSlGCT8MAC4NFRjWQMlDQ2HKeLqCAhpEMLWQum4 PSgnV4m1SFHyFm9JU8Nbc4TgHgEnVXQMXYzyRI7wxyZjBVNtXn8DR4oGNqa8B0K1YBW0LKItN8S8GXjs PJSoOUEaRGQmJGViE5Z3IP7aSYl1QeEaJSNfEiD4GWT3VzC9VkJlQBW1VkImMoOvDdu2BvLqGS9YEo2H XaM9MUC9uABfKo8VNscbKFKXTvOtWZ2NRFj= ID Date Data Source [id number] 07/07/2020 12:30:45 PM [facility] Value Range Interpretation Code Description Data Zahraa rce(s) Supporting Document(s) Glucose [Mass/volume] in Capillary blood by Glucometer 124 mg/dL 70- 140 [facility] ID Date Data Source [id number] 07/07/2020 12:30:45 PM [facility] Value Range Interpretation Code Description Data Zahraa rce(s) Supporting Document(s) Glucose [Mass/volume] in Capillary blood by Glucometer 11 mg/dL 70- 140 [facility] ID Date Data Source [id number] 07/07/2020 10:22:07 AM [facility] Value Range Interpretation Code Description Data Zahraa rce(s) Supporting Document(s) Potassium [Moles/volume] in Serum or Plasma 3.5 mmol/L 3.4-5.1 [facility] ID Date Data Source [id number] 07/07/2020 10:22:07 AM [facility] Name Value Range Interpretation Code Description Data Zahraa rce(s) Supporting Document(s) Phosphate [Mass/volume] in Serum or Plasma 0.9 mg/dL 2.5-4.5 [facility] Results called to and read back by PRASAD CAPONE RN [id number] ID Date Data Source [id number] 07/07/2020 08:24:21 AM [facility] Name Value Range Interpretation Code Description Data Zahraa rce(s) Supporting Document(s) Glucose [Mass/volume] in Capillary blood by Glucometer 126 mg/dL 70- 140 [facility] ID Date Data Source [id number] 07/07/2020 08:05:47 AM [facility] Value Range Interpretation Code Description Data Zahraa rce(s) Supporting Document(s) [facility] YHGHTo4fPpEWSdIk85/RKIxkHLByt5XpEAvgVAk3IIlpNTGbS3AbCTQ9bY6fZTE2HXfQXxPwLxJmOHE4 lbm [file] ICAgICAgICAgICAgICAgICAgICAgICAgICAgICAgICAgICAgICAgICAgICAgICAgICAgICAgICAgICAg ICAgICAgICAgICAgICAgICAgICAgICAgICAgICAgICAgICANCiAgICAgICAgICAgICAgICAgICAgICAg ICAgICAgICAgICAgICAgICAgICAgICAgICAgICAgIC AgICAgICAgICAgICAgICAgICAgICAgICAgICAgICAgICAgICAgICAgICAgICANCiAgICAgICAgICAgIC AgICAgICAgICAgICAgICAgICAgICAgICAgICAgICAgICAgICAgICAgICAgICAgICAgICAgICAgICAgIC AgICAgICAgICAgICAgICAgICAgICAgICAgICANCiAg ICAgICAgICAgICAgICAgICAgICAgICAgICAgICAgICAgICAgICAgICAgICAgICAgICAgICAgICAgICAg ICAgICAgICAgICAgICAgICAgICAgICAgICAgICAgICAgICAgICANCiAgICAgICAgICAgICAgICAgICAg ICAgICAgICAgICAgICAgICAgICAgICAgICAgICAgIC AgICAgICAgICAgICAgICAgICAgICAgICAgICAgICAgICAgICAgICAgICAgICAgICANCiAgICAgICAgIC AgICAgICAgICAgICAgICAgICAgICAgICAgICAgICAgICAgICAgICAgICAgICAgICAgICAgICAgICAgIC AgICAgICAgICAgICAgICAgICAgICAgICAgICAgICAN CiAgICAgICAgICAgICAgICAgICAgICAgICAgICAgICAgICAgICAgICAgICAgICAgICAgICAgICAgICAg ICAgICAgICAgICAgICAgICAgICAgICAgICAgICAgICAgICAgICAgICANCiAgICAgICAgICAgICAgICAg ICAgICAgICAgICAgICAgICAgICAgICAgICAgICAgIC AgICAgICAgICAgICAgICAgICAgICAgICAgICAgICAgICAgICAgICAgICAgICAgICAgICANCiAgICAgIC AgICAgICAgICAgICAgICAgICAgICAgICAgICAgICAgICAgICAgICAgICAgICAgICAgICAgICAgICAgIC AgICAgICAgICAgICAgICAgICAgICAgICAgICAgICAg ICANCiAgICAgICAgICAgICAgICAgICAgICAgICAgICAgICAgICAgICAgICAgICAgICAgICAgICAgICAg ICAgICAgICAgICAgICAgICAgICAgICAgICAgICAgICAgICAgICAgICAgICANCjw/iYWgJ4krsGCdzaL3 G9yoJv3BQp2XNZ4jw3IlHSCvCCxxehGoEagFItVoGJ KuSgkHIbg2TWnmDP4KpLSyB5VbC7BfEHgwYE2KZOYpPPGmuXSlCNPeICPxEtF1SCLbDFadGC4OwRUiHF eoHYQtEBUzKzEqLTVtNUOvEUCuVZUvSPDHINMeNJBaOpYaGPltFA3Mv0UmtUO6UDt+To8WNY0eg8IfGH cwYmDyGO9nje7IIDsZNjNyS3VsdhR4NSE1NPYnHv5P YQAbVLQjkLLoDGNyQTXHYnFoS3VjxH45XCJOOb2+VAjnfaZoOeoYYaB1USVae4RiZUc4LZ2LOIXvTNt2 sMKyZ94zz1TsgVBoLvseEUTjzITjrRMZYEBbgU3tuOexWQ4VIxDaVQHwWDIjFW7jXPDvNVK8RnA7KAXF BG6MOCQbXENjpPPeHSXcOZKQGL9WOWiwWIZ0WKDtcl RhcFQrIFfjIE1PKEVwqaKlAbBcXOCZWWw+Tb3JES0pi9SdLBwpQVQbYR8qcv4CFNrLSvHoJ9S1qTUhQ3 S3XCudNc8DYXAnBKQiSxEeOEQDIBwhSO0ASV6zklP8AP1QbZQeHCHuGGScjHLgUUs4C50quHFiGIdfZV 0KICA+Malvin+Dq7HYVZjNZExLDOlHgYdQTGQNhMgC4Ip D6KYq4QxX7OrIO44dQfvkvDxFWjzKB2SBB6zVMFkFFPVPD8BuUUkjW0wdkOsBlLmBRJNSjZfU09wuJVd UYJiRPHhWVDoWu7BPCLrY9EvunSoyAxvbiWjYFStFKISPS9HWPwhelKsiPCyrGndUG29iRaoAI8AJw6A CqZhEX1qbj0CpYHdLo1HEHYgDn6KKMPoRJLhUFSpAZ H6EKIuMwDoIDorOTVbHAAxAFZ7VNTeMGEtFC8EPkSmQIKeXdX5HxVkIJQrJCPvqr1IRXDiJJJnNBObNv QsPWBwOCRiRFbwNTUxZLAoDXS0PCTjBCOdQD5FVvJfTFOhUZK3XYQzJSDqQKWgdy3MJBRjRSOiBIBeYT UwEHPfTXAbMZzaDVPnCSF7DAi8YJCpEIWbQB3ROhEy DUXfTXgzMPpaMLSuSJBsob7JMFWwIYWxCKebYfSpJAWvTQUpMXxxSFGeSDAqTUC0UFClNWFbLQ0QGlDr GTBcIUUsHLJsKYEuUIJvuw6IEXBrTYZeWWGaLGQlVIWuLRAjSJrxDZNrTYT3YkBuQQYcRYBdBX4RNhAk WJQiXBo9VEdlBRKuFCCqjb6NQNGpQWIrMPy5DqHzBO LvEDCbSByxTWSrISAdBGb3XEJnNDVzUH8JSgIaYUYlInNrREjpRZGpKCTimw8AFYDdPEJaEYAoSzLhNA QlUQQnCGioWKRjAICkGIR4XNHrCZJeDQ5KKbPlAULuAzX0TJBsAPBvZVPgvi7YUEQiWUUtJaO0VjCcDM CvVYBvNKevCRKzHRUtHuAzNWXiSDHuVH3LVyQsPKFq MzJ6XVPjUIOaIZZxsw2HTKQqXFLaDNOpEPInQARpAPLdRFvtFQOaOJZ7RyZ9DVVdCTTyNK0LGqLkOXZe CnU3GMvyUVWmOWUqtq2HFFCfKHIxBMT8UmFaMFYzDOVtEFwvYBYnYTF2EfQmYHIiNBZfDW0BUmZmKOAu QfFmEIohTLGzRVWmfj5PYPKnRFLkFbW4NVIwAYIsSL XqGDpjBLXuLHP8SEWgXOZlQYFuUQ4KRaLvSOJiBpA8NBUtYQAaYMZrbw0NZCJjLIObHZI4TXYyTCSoJF RlDFwyXHMcRIR5LBZxFLZvOSZcOG7WLlSjIKBmMdr8WsthAFDmIVBpuy7EsMRpkSjron3YVOzASk1OwZ wzUVN1VGblLk6ezMWvIPLwAZCCUh4OcwTlGROjNCUX NNqmAOHgHXOvPSC4FHLqOwEqSpW5QiIuSEFfTPc5CmX2CLIjNQGhWlP5TVQbFCsuUuX2BJZ8ZQKjIHBz CqMpVvKeJBU0FIUuQCT+QY5gPVw+Gn3Wm4UgakB2loRoUPpzRKquEw1NFUMVX7LSYl== ID Date Data Source [id number] 07/07/2020 08:05:32 AM [facility] Name Value Range Interpretation Code Description Data [facility] Supporting Document(s) History and Physical [facility] IHJDAc2kUyKCFuBd07/QTUnpQEFtf6QvOMcvKBv4VRajNQRmJ5JrSBX3xV9uEQW9WMtDRoJuCqZfCYX0 lbm [file] AgICAgICAgICAgICAgICAgICAgICAgICAgICAgICAgICAgICAgICAgICAgICAgICAgICAgICAgICAgIC AgICAgICAgICAgICAgDQogICAgICAgICAgICAgICAg ICAgICAgICAgICAgICAgICAgICAgICAgICAgICAgICAgICAgICAgICAgICAgICAgICAgICAgICAgICAg ICAgICAgICAgICAgICAgICAgICAgICAgDQogICAgICAgICAgICAgICAgICAgICAgICAgICAgICAgICAg ICAgICAgICAgICAgICAgICAgICAgICAgICAgICAgIC AgICAgICAgICAgICAgICAgICAgICAgICAgICAgICAgICAgDQogICAgICAgICAgICAgICAgICAgICAgIC AgICAgICAgICAgICAgICAgICAgICAgICAgICAgICAgICAgICAgICAgICAgICAgICAgICAgICAgICAgIC AgICAgICAgICAgICAgICAgDQogICAgICAgICAgICAg ICAgICAgICAgICAgICAgICAgICAgICAgICAgICAgICAgICAgICAgICAgICAgICAgICAgICAgICAgICAg ICAgICAgICAgICAgICAgICAgICAgICAgICAgDQogICAgICAgICAgICAgICAgICAgICAgICAgICAgICAg ICAgICAgICAgICAgICAgICAgICAgICAgICAgICAgIC AgICAgICAgICAgICAgICAgICAgICAgICAgICAgICAgICAgICAgDQogICAgICAgICAgICAgICAgICAgIC AgICAgICAgICAgICAgICAgICAgICAgICAgICAgICAgICAgICAgICAgICAgICAgICAgICAgICAgICAgIC AgICAgICAgICAgICAgICAgICAgDQogICAgICAgICAg ICAgICAgICAgICAgICAgICAgICAgICAgICAgICAgICAgICAgICAgICAgICAgICAgICAgICAgICAgICAg ICAgICAgICAgICAgICAgICAgICAgICAgICAgICAgDQogICAgICAgICAgICAgICAgICAgICAgICAgICAg ICAgICAgICAgICAgICAgICAgICAgICAgICAgICAgIC AgICAgICAgICAgICAgICAgICAgICAgICAgICAgICAgICAgICAgICAgDQogICAgICAgICAgICAgICAgIC AgICAgICAgICAgICAgICAgICAgICAgICAgICAgICAgICAgICAgICAgICAgICAgICAgICAgICAgICAgIC OgQZCzESUkLYFqOHXmEWPyOMSxHYZcAXn6L2chCIEi RXPdUC9bZBk0Rz9+MYtLFpQaROT3qfClqF8WQI4pf6BoJAucXBThh7VvSKx3QX9LARNsTKmbUX5SGXpc pz9XUPQjVDXscSWZv5drKtGlABF6SQXfXqqpAB2NYJYuZ1utxfXuNANaGGHWOItsPCDCAR6TQfUqT1Ky bW57LHVOMv3+IHxwxuCySciLFbP7KIMuf0RvHOn5GR 7HEXIiBtzzp9StWhpeVHDHQBllII4WBRQ7LYE8MKFbXh2TFRRlS488mtDyMQ5CLu5WWdLaBQ3egf5CRb nvZCQpQbzDBbb3XXoxPZ8FfEZrNByFHvKaUtadFCVzjDBxtAJOBXOrcK5kgCbfWD5KLqBoTHJbCRXiNW 5fGCMeFRQiDcLoHDUXJT8WMCYxHTRhmORhJPPrJURE ZZ2WDAhgUZD2SFYxbpYztGGfWElgAD8DIFQuddJfAosmWVDPSTh+Go0MKE6lc0XhARzxOVMmRN7ded6R NZuHRmCiJ4D5vARyV9W4QLadCy1EOKFlJKGdQaTkJNNFASxnQE1JGR1emgQ4BM0XxIVnXULsBPNzvGTs YRo3P08wvPVxMIfjDI3ITWI+Malvin+Uu5UAFKaDTGxER BmCtZsEYZKTaQtA5ClE0DDj8DgS9PfOU07gVsnciCrXLpiLA7HUN5oOOImNAPUGB4ElPMbrS3avuFkTr FsDIRVLpMjE10zmEVqETCxRCV8ALZvNz4HUUJtD4ZnxgUzkAwmfsNpNBWpUPWTNZ4EMQniheTmxVDssD xuCY45tWyxBG8WGa9ZIgVvNA6ioc4XbBRhFj3CGMTz GU2WYWGwTIAoGXLqADO9VERnZjWaYYieUYRnDPKaEBY8ZXDkJEVrIF5AGqUoJJUmBmNqSHYoAOOoKQHm xt4GJWMcDXKkPkC7WuPxLPCyXHGaWJwjLUEbSEFdMZS0WBRjFXPhII5XTfLdSBLkHKUzECTaIEZyEDRv eo2QFXKrETNjSfC1OqLlATTxENOsQLdhKSFvBLX3YU g1FBBcDXNvNY1VWeFcUQArWIV0LOhuQUFwOWIoyk4CNEXdVGOxPwP3TeLlJTVpAQWzARdqRCTmUCR5AM WqSOSbHNPcII9OTwZqVMMzMTehMjUbHVCmQJZxjw1GEMTsHWAoYSk5ZeCoDYQvMAUvPWntUEVnNLF8YF i6UCFiQLLmNR9AUrSxMUEtCOwzHpBbRGXwJSGjee0L VZBsCPYnMRXjDpZaKEBtYIAiNGwqZNSoKJMfBEPdULIuEOCzMQ5MNpHcBYUkXRR1ELVkTXGrWCXhxk5E QSViAZFhJpH9DDBeKVPsSGMeVPycPQQgPDLvXKK3QYRbQPDjJX8NQiDeEJGpOgP7WmMzIUFbJWNipz1M KDAkHFZeHfx3VWJeFIImCJCxSKbrTGIlPILeGNIjIV EjTATkVU1CBuLgPCHzLvL2JJUqDYOxOZNmoc6RRWKwPQLfURG6HpAaTLRqVDCkOKyjJJBiXTY8ZmAsEQ FmUWPxME4DNgVoRHVgGvK3LDIwKVLwVEDcei8UTGMxOBPcLcO8SfTcISYhWRAbJJnkDIDbZNW6LhK3QE XbASDpLF2CThKgWKWyTyI1YROiCFMePJKxrs0ElDCe uCechr5LFDvBUq6KhSbgSMBpJFbmRz4hrZRgFFUbATBCVu3JgvKxZIInLMYQWPksVPQxAJJ5QtacORJh DDcuUMseHGZxOuM2QSnrTJTqHREoVka3EoI0FpzpPcN0SaY1K5CaLSXrIzLwNkmzIDVpXWD9C9OyQqF+ LF8gYQq+Oh6Oe3TcptM2cvVsUDdsIlL6AZ4AMPUWM3DKKx== ID Date Data Source [id number] 07/07/2020 06:55:55 AM [facility] Name Value Range Interpretation Code Description Data [facility](s) Supporting Document(s) Albumin [Mass/volume] in Serum or Plasma by Bromocresol green (BCG) dye binding method 3.8 g/dL 3.5-5.2 [facility] Bilirubin.total [Mass/volume] in Serum or Plasma 0.7 mg/dL <1.2 [facility] Calcium [Mass/volume] in Serum or Plasma 6.9 mg/dL 8.6-10.0 L [facility] Chloride [Moles/volume] in Serum or Plasma 100 mmol/L 98-107 [facility] Confirmed Creatinine [Mass/volume] in Serum or Plasma 0.96 mg/dL 0.70-1.20 [facility] Glucose [Mass/volume] in Serum or Plasma 140 mg/dL 70-140 [facility] Alkaline phosphatase [Enzymatic activity/volume] in Serum or Plasma 49 U/L 40-129 [facility] Potassium [Moles/volume] in Serum or Plasma 3.5 mmol/L 3.4-5.1 [facility] Protein [Mass/volume] in Serum or Plasma 5.5 g/dL 6.4-8.3 L [facility] Sodium [Moles/volume] in Serum or Plasma 137 mmol/L 136-145 [facility] Aspartate aminotransferase [Enzymatic activity/volume] in Serum or Plasma 41 U/L <40 H [facility] Urea nitrogen [Mass/volume] in Serum or Plasma 18 mg/dL 6-20 [facility] Osmolality of Serum or Plasma by calculation 288 mosm/kg 275-300 [facility] Creatinine/Urea nitrogen [Mass Ratio] in Serum or Plasma 19 [facility] Bicarbonate [Moles/volume] in Serum 24 mmol/L 22-29 [facility] Alanine aminotransferase [Enzymatic activity/volume] in Seru m or Plasma 25 U/L <41 [facility] Anion gap 3 in Serum or Plasma 13 mmol/L 8-15 [facility] Glomerular filtration rate/1.73 sq M pre dicted among non-blacks [Volume Rate/Area] in Serum or Plasma by Creatinine-based formula (MDRD) >6 0 [facility] Glomerular filtration rate/1.73 sq M pre dicted among blacks [Volume Rate/Area] in Serum or Plasma by Creatinine-based formula (MDRD) >60 [facility] ID Date Data Source [id number] 07/07/2020 08:45:11 AM [facility] Name Value Range Interpretation Code Description Data [facility](s) Supporting Document(s) Leukocytes [#/volume] in Blood by Automated count 5.1 10*3/uL 4-10 [facility] Erythrocytes [#/volume] in Blood by Automated count 3.26 10*6/uL 4.6- 6.1 L [facility] Hemoglobin [Mass/volume] in Blood 10.3 g/dL 13.5-18 L [facility] Hematocrit [Volume Fraction] of Blood by Automated count 29.8 % 4 1-53 L [facility] Erythrocyte mean corpuscular volume [Entitic volume] by Auto mated count 91.4 fL 80-96 [facility] Erythrocyte mean corpuscular hemoglobin [Entitic mass] by Automated count 31.6 pg 27-33 [facility] Erythrocyte mean corpuscular hemoglobin concentration [Mass/volume] by Automated count 34.5 g/dL 32.0-36.0 [facility] Erythrocyte distribution width [Ratio] by Automated count 14.7 % 11.5-14.5 H [facility] Platelets [#/volume] in Blood by Automated count 65 10*3/uL 150-400 L [facility] Differential cell count method - Blood [facility] Neutrophils/100 leukocytes in Blood by Automated count 76 % [facility] Lymphocytes/100 leukocytes in Blood by Automated count 14 % [facility] Monocytes/100 leukocytes in Blood by Automated count 7 % [facility] Eosinophils/100 leukocytes in Blood by Automated count 3 % [facility] Neutrophils [#/volume] in Blood by Automated count 3.91 10*3/uL 1.8-7 .0 [facility] Lymphocytes [#/volume] in Blood by Automated count 0.71 10*3/uL 1.2-4 .0 L [facility] Monocytes [#/volume] in Blood by Automated count 0.33 10*3/uL 0-0.8 [facility] Eosinophils [#/volume] in Blood by Automated count 0.14 10*3/uL 0-0.5 [facility] Poikilocytosis [Presence] in Blood by Light microscopy [facility] Stomatocytes [Presence] in Blood by Light microscopy [facility] ID Date Data Source [id number] 07/07/2020 07:00:15 AM [facility] Name Value Range Interpretation Code Description Data [facility](s) Supporting Document(s) Hemoglobin A1c/Hemoglobin.total in Blood by HPLC 5.5 % 4.0-6.0 [facility] (NOTE)<5.7% Average risk of diabetes (ADA)5.7-6.4% Increased risk of diabetes(ADA)>/= 6.5% Diagnostic for diabetes(ADA) Glucose mean value [Mass/volume] in Blood Estimated fr om glycated hemoglobin 111 mg/dL <126 [facility] ID Date Data Source [id number] 07/07/2020 12:45:32 AM EST [facility] Name Value Range Interpretation Code Description Data [facility](s) Supporting Document(s) Leukocytes [#/volume] in Blood by Automated count 5.2 10*3/uL 4-10 [facility] Erythrocytes [#/volume] in Blood by Automated count 3.20 10*6/uL 4.6- 6.1 L [facility] Hemoglobin [Mass/volume] in Blood 10.1 g/dL 13.5-18 L [facility] Hematocrit [Volume Fraction] of Blood by Automated count 29.2 % 4 1-53 L [facility] Erythrocyte mean corpuscular volume [Entitic volume] by Auto mated count 91.3 fL 80-96 [facility] Erythrocyte mean corpuscular hemoglobin [Entitic mass] by Automated count 31.5 pg 27-33 [facility] Erythrocyte mean corpuscular hemoglobin concentration [Mass/volume] by Automated count 34.5 g/dL 32.0-36.0 [facility] Erythrocyte distribution width [Ratio] by Automated count 14.4 % 11.5-14.5 [facility] Platelets [#/volume] in Blood by Automated count 69 10*3/uL 150-400 L [facility] Differential cell count method - Blood [facility] Neutrophils/100 leukocytes in Blood by Automated count 73 % [facility] Lymphocytes/100 leukocytes in Blood by Automated count 17 % [facility] Monocytes/100 leukocytes in Blood by Automated count 9 % [facility] Eosinophils/100 leukocytes in Blood by Automated count 1 % [facility] Basophils/100 leukocytes in Blood by Automated count 0 % [facility] Neutrophils [#/volume] in Blood by Automated count 3.74 10*3/uL 1.8-7 .0 [facility] Lymphocytes [#/volume] in Blood by Automated count 0.89 10*3/uL 1.2-4 .0 L [facility] Monocytes [#/volume] in Blood by Automated count 0.46 10*3/uL 0-0.8 [facility] Eosinophils [#/volume] in Blood by Automated count 0.06 10*3/uL 0-0.5 [facility] Basophils [#/volume] in Blood by Automated count 0.01 10*3/uL 0-0.2 [facility] Nucleated erythrocytes/100 leukocytes [Ratio] in Blood by Automated count 0 /100{WBCs} 0-0 [facility] ID Date Data Source [id number] 07/06/2020 10:10:12 PM [facility] Name Value Range Interpretation Code Description Data [facility](s) Supporting Document(s) Glucose [Mass/volume] in Capillary blood by Glucometer 262 mg/dL 70- 140 H [facility] ID Date Data Source [id number] 07/06/2020 10:56:32 PM [facility] Value Range Interpretation Code Description Data [facility](s) Supporting Document(s) Magnesium [Mass/volume] in Serum or Plasma 2.0 mg/dL 1.6-2.6 [facility] ID Date Data Source [id number] 07/06/2020 10:56:32 PM [facility] Value Range Interpretation Code Description Data [facility](s) Supporting Document(s) Potassium [Moles/volume] in Serum or Plasma 3.6 mmol/L 3.4-5.1 [facility] ID Date Data Source [id number] 07/06/2020 11:17:32 PM [facility] Value Range Interpretation Code Description Data [facility](s) Supporting Document(s) Phosphate [Mass/volume] in Serum or Plasma 0.7 mg/dL 2.5-4.5 [facility] Results called to and read back by José Bhatti RN on 6I at 2316 by [id number] confirmed ID Date Data Source [id number] 07/06/2020 06:21:10 PM [facility] Value Range Interpretation Code Description Data [facility](s) Supporting Document(s) Lactate [Moles/volume] in Serum or Plasma 1.1 mmol/l 0.5-2.2 [facility] ID Date Data Source [id number] 07/06/2020 06:26:33 PM [facility] Value Range Interpretation Code Description Data [facility](s) Supporting Document(s) Leukocytes [#/volume] in Blood by Automated count 5.6 10*3/uL 4-10 [facility] Erythrocytes [#/volume] in Blood by Automated count 3.15 10*6/uL 4.6- 6.1 L [facility] Hemoglobin [Mass/volume] in Blood 10.0 g/dL 13.5-18 L [facility] Hematocrit [Volume Fraction] of Blood by Automated count 28.9 % 4 1-53 L [facility] Erythrocyte mean corpuscular volume [Entitic volume] by Auto mated count 91.9 fL 80-96 [facility] Erythrocyte mean corpuscular hemoglobin [Entitic mass] by Automated count 31.7 pg 27-33 [facility] Erythrocyte mean corpuscular hemoglobin concentration [Mass/volume] by Automated count 34.5 g/dL 32.0-36.0 [facility] Erythrocyte distribution width [Ratio] by Automated count 14.3 % 11.5-14.5 [facility] Platelets [#/volume] in Blood by Automated count 70 10*3/uL 150-400 L [facility] Differential cell count method - Blood [facility] Neutrophils/100 leukocytes in Blood by Automated count 77 % [facility] Lymphocytes/100 leukocytes in Blood by Automated count 12 % [facility] Monocytes/100 leukocytes in Blood by Automated count 11 % [facility] Eosinophils/100 leukocytes in Blood by Automated count 0 % [facility] Basophils/100 leukocytes in Blood by Automated count 0 % [facility] Neutrophils [#/volume] in Blood by Automated count 4.29 10*3/uL 1.8-7 .0 [facility] Lymphocytes [#/volume] in Blood by Automated count 0.68 10*3/uL 1.2-4 .0 [facility] Monocytes [#/volume] in Blood by Automated count 0.59 10*3/uL 0-0.8 [facility] Eosinophils [#/volume] in Blood by Automated count 0.01 10*3/uL 0-0.5 [facility] Basophils [#/volume] in Blood by Automated count 0.00 10*3/uL 0-0.2 [facility] Nucleated erythrocytes/100 leukocytes [Ratio] in Blood by Automated count 0 /100{WBCs} 0-0 [facility] ID Date Data Source [id number] 07/06/2020 05:04:33 PM [facility] Name Value Range Interpretation Code Description Data [facility](s) Supporting Document(s) History and Physical [facility] POALTb6oMgWEIeOg37/DAIfcRMHaf5ExYMduPWb1LXziVPOoB9MbVIA1dW6hKZW9ZKnFRfZaVgLrJBI4 lbm [file] CiAgICAgICAgICAgICAgICAgICAgICAgICAgICAgICAgICAgICAgICAgICAgICAgICAgICAgICAgICAg ICAgICAgICAgICAgICAgICAgICAgICAgICAgICAgICAgICAgICAgICANCiAgICAgICAgICAgICAgICAg ICAgICAgICAgICAgICAgICAgICAgICAgICAgICAgIC AgICAgICAgICAgICAgICAgICAgICAgICAgICAgICAgICAgICAgICAgICAgICAgICAgICANCiAgICAgIC AgICAgICAgICAgICAgICAgICAgICAgICAgICAgICAgICAgICAgICAgICAgICAgICAgICAgICAgICAgIC AgICAgICAgICAgICAgICAgICAgICAgICAgICAgICAg ICANCiAgICAgICAgICAgICAgICAgICAgICAgICAgICAgICAgICAgICAgICAgICAgICAgICAgICAgICAg ICAgICAgICAgICAgICAgICAgICAgICAgICAgICAgICAgICAgICAgICAgICANCiAgICAgICAgICAgICAg ICAgICAgICAgICAgICAgICAgICAgICAgICAgICAgIC AgICAgICAgICAgICAgICAgICAgICAgICAgICAgICAgICAgICAgICAgICAgICAgICAgICAgICANCiAgIC AgICAgICAgICAgICAgICAgICAgICAgICAgICAgICAgICAgICAgICAgICAgICAgICAgICAgICAgICAgIC AgICAgICAgICAgICAgICAgICAgICAgICAgICAgICAg ICAgICANCiAgICAgICAgICAgICAgICAgICAgICAgICAgICAgICAgICAgICAgICAgICAgICAgICAgICAg ICAgICAgICAgICAgICAgICAgICAgICAgICAgICAgICAgICAgICAgICAgICAgICANCiAgICAgICAgICAg ICAgICAgICAgICAgICAgICAgICAgICAgICAgICAgIC AgICAgICAgICAgICAgICAgICAgICAgICAgICAgICAgICAgICAgICAgICAgICAgICAgICAgICAgICANCi AgICAgICAgICAgICAgICAgICAgICAgICAgICAgICAgICAgICAgICAgICAgICAgICAgICAgICAgICAgIC AgICAgICAgICAgICAgICAgICAgICAgICAgICAgICAg ICAgICAgICANCiAgICAgICAgICAgICAgICAgICAgICAgICAgICAgICAgICAgICAgICAgICAgICAgICAg ICAgICAgICAgICAgICAgICAgICAgICAgICAgICAgICAgICAgICAgICAgICAgICAgICANCjw/aHDsL1cw zHDhibY1T7soBj3PSt4AJI4zh6AuJLGzCQveauDzNz qFPrVhPDDzHwzZXxr1WQvlES3QbNNwA6NmT1VxLDcbIO4ROSNcUMCviJYtWLCrOMTfUzW6IGDfVXynUC 5LdSGuLZaaLKLmZKKzZsMpXOBaVGIuDRIwYZAxOENGKXVnNIEqYhLgTQhcLN8Tz8WjrGO9CGu+Pg0KZW 5wj8OlTSpnVuUyMK0bpm5QRGkJYvFcO0AzuzB0PRA1 YKRbEj1YUEBaTMYmkLSqKRMsLUGCEyMsN2WfzX91OZQERl4+LTyijrBwIesQAlD2NEUgr3OaFWv0EV8F DXPrEYd5vWIzVURSJVH3ZZqyBtWtNsiqMDnuGQAUBMN6YJEfFhCdWmHvEDWbPPgpRKECIAtXLwKfV4Mk j2KxEfB6ZZAoFpHqWOusKJFsGbD7UM27aJxfFO7AZC KtOELyOK90CKGlKJCgKt1QBc6HQfImES7ouh2IBgNnVSSsRktPUju8GMjyTH8XeXFgI3KpbZJin5iKSu NhR2ZXMWBhNSJpNq6QCULqAaZmQNUcXXjyMT8cITJsRLADzShkrpU9LV4GKO7uobYwGX0RYkOxUs9uUm 2OUhSaL7TvX3VuFJIdUWHQURarHP9ZBHltSU7wRC2E g3EEqGTvcF9xic1LVTSyXKZjFktxua9ZEvxoK2T4yTcuETUxSiSeHMHCDXqxOO0ROGDkFFO0BEHyRuMr SKYBCmFxT89zPZ0QS4Boa81pZqW8YRTcGzMlNRejJX96yNdomwZocKRvbXnmNL0MFd0+DQplbmRvYmoN AvrmDKXALpQoYkXDPoWbHHOeNKOsHDVpIlN6MpIoLl 9CJBGiVRUdQSSiRyUaWOApLSVsXPogJBYmEXBrSJX5KQDhSZEmEG6RFsAeEOAoLdX6USYuCFTtPFYqgw 8MFWSwDQFoCYE4RxVjMEQfBOQwKCzdDNSvEDY7RZA5GNOcNWGnRK2XMzDwYQGyBMPrZjigYBTzHAHydy 4EHNUgIWTjEsf0GLPpYUTeXQEzCCklCXTiJTH6UYr9 DUOnVCAfOT8ZPmSqZJBxXNK0MDSuOHFnBGSxor0ZCGZxKGJpVCu7CWGkZZXqTMXwOPcuUREpKSS1Bbrb GQBiIEWjWZ1QWhLzBYBeJXV8VZjeIOXrKGYszh1YXMNzUBIxLDr2VFBcOVJiTPGiDDmxWTDqVTM8XQa9 OMNcEHQuJD5QSjNtQBYiUFcjVKFpXKYzLIWuqu7MOT JvDNDdMkN1UeHhXHUaBPPgRCfrOKGhZBI6VPW0LFJrFAPyNJ5UEtDeMRUgDYo0XPUnQPVwXOEbri4TNM BvUNGeSUS9FlQxGPIxAELoSUcnTEBvUBH3RIv7MXWqYVDvGV7KIbXtMMSdRSn5XNYoZBUpMLBtxu5RHG TfKIKaZKI7UyTuRZCuBDQmFNicFKWcUAUiRqB9WCXy MVSrZQ7SGzRmIXGyRoE0FXNqGHCcKOQbak5KEJPxUVGyXTwdSBGdLLIwLKYkPZndIVNbCTYjPZM1FPZq WIYhCA8LHjZpUHJzPbUiHnCiXUYzEQDbeo7UGFUlQWEdMkHjRsFhVMFaZOFlRLbmRSThQJExPIG4CMFl PJVqTZ2ZIbCrZDZcRrP5ZIGeKYVbZYRomb8FURCjAG BgPgyuKmRxQRReRZCxLOmrLSWwKHL3DzB2KQIiLAMuOE2WWlNrKSCmHmG2HqfxSMSdVRFyru1UXFLlHP HoTQbhQCIeVDEaBCJcIQvyLGJeXRB5YOM8NCApSWPkVQ9AShLfYYipCJHJJys7RDtwS8a8JDShDs3UQ1 Uct2NmZgSjLRPWXGffFG4xgbMdHDSsNl9RK2sPXydv QPBtX9CnTDZnLcOlB2LaEIRrBQJkILMpEZWvScPnMl3kOSV9XVHlDCWvPKH9GBH2OEC0LoIhZGB2LNK6 TIDlKKP1PwMxRG1EJa1NFjX6QJA2mLQiZi6HCtNsJdoMLcArQA8ALWp= ID Date Data Source [id number] 07/06/2020 04:38:18 PM [facility] Name Value Range Interpretation Code Description Data [facility](s) Supporting Document(s) Consultation [facility] KXASUk4yVeVUTtCe81/DDMdbBPHpq5UdKIycSCr7MOfrQTGfK7ZuWMB4hT9gNNM8ZVbDOuMjWhJkULN6 lbm [file] ICAgICAgICAgICAgICAgICAgICAgICAgICAgICAgICAgICAgICAgICAgICAgICAgICAgICAgICAgICAg OLRoLNGuPWRtHJGiYMSfRG3JHANwUDUwMYZpRQLsIC AgICAgICAgICAgICAgICAgICAgICAgICAgICAgICAgICAgICAgICAgICAgICAgICAgICAgICAgICAgIC LbHXLyXBWqJWDyKUMxPTXzSOWhBXWdGTNrYI6YCKRxTKNhBDXzJMUgCFCbQMQfZTJdFUQrTKYeMTAxXT AgICAgICAgICAgICAgICAgICAgICAgICAgICAgICAg NZKiDVEwFQRzZWTcKPJwKHCgJASjOKGuMKBhGMXfJMYhPZCqYI4SUKXeEKAkYXZzSOYoOIGwXYHtXQMr ICAgICAgICAgICAgICAgICAgICAgICAgICAgICAgICAgICAgICAgICAgICAgICAgICAgICAgICAgICAg XWVbFKAiKBWfSRBqEKKsLJIdST1JZLCmBSLjIIRdSW AgICAgICAgICAgICAgICAgICAgICAgICAgICAgICAgICAgICAgICAgICAgICAgICAgICAgICAgICAgIC YyTJShYWSnKOKiTSOxYREjXJWbFNDfMOQdBUKeBW5UENWdGNJjSTAaUHTeJEYjRNVoDWDeDPKqQIQvPD AgICAgICAgICAgICAgICAgICAgICAgICAgICAgICAg XNNfEKShDNEjLWGxHFVoPNLwYZRmBQVyWGRqQZIpCEQtIBUpZRUvMC9GGHQyRARqXLMxWJGbLSEnHNYz ICAgICAgICAgICAgICAgICAgICAgICAgICAgICAgICAgICAgICAgICAgICAgICAgICAgICAgICAgICAg HQJbDEDmFMUxFMKePWAgJJMfXCWqKG0HUONoBNRcRJ AgICAgICAgICAgICAgICAgICAgICAgICAgICAgICAgICAgICAgICAgICAgICAgICAgICAgICAgICAgIC HlMJClRFRvVAGlCOGyXGSoUFTaUCHgLWQeHFYmWSEqIH4FMQGnGQNyBXFvYHZoXBAgOEWoDOHsKLKxJQ AgICAgICAgICAgICAgICAgICAgICAgICAgICAgICAg OAMbANHcDJBwSJUwSYOnJLZaGNByRHRlYGGgGGOaTEZtIWSoERJyZVPxOI3BXWRtBYGyWBLbQLMeIZWf ICAgICAgICAgICAgICAgICAgICAgICAgICAgICAgICAgICAgICAgICAgICAgICAgICAgICAgICAgICAg CUCoQLKpEDFqLONaKRQiFKElTGEkLGVqAO6RPP14yT Pnu8Q9MWAkBV1tjdh/Yo9MEXkukgJsuTXzFF1GUoZkJO3fky6EOsAdKQ6okj3GEAvPKfUoQ2B5eTGmNL IxHJXOVyNtN03iLRbdWk37HBdrTRZxBrExCTh5Rz2HPoCpC7qbKZKwChX4KXNoXnPdQUizNM7Py1PpyJ AxDQo+Zh8SEC3bl4TzOMrzXZDrBY3efx2DULiLLuTg M5IzrbM4PSF0CMJmMo3CTPFpRSXftRIjNKPvLSWJKxSlQ3ZtcV43WUUSSt6+QDepniXhWwrDXiP8EKEh v9FcGBf4FW4YTKRmGCd1iJQiN96oh1TpwKSuXnugZJVckMsdjlOJTINkE5OkvzPeRSuUL0ueZMBlRFCg MF7hPAKoZNC8GeM8XZGNOF4YLLZeFJGkpGFmIJHeIN LSKG7OQYidPAV9OZXnkaXrlWXwMLibCT4DXHYcpqNwXAJpUBDMGNv+Uz3BKF2zi9EfLLpqZqEzHX3cyb 6LJYvVHxShU8M6fLItN8Z0XMkfAd5AANKxNJAbMHDmVPFRHBfbHP9OQJ3eowE2QE7QhFHfISVeMNZloP LkCLg6Z70mrSFnIWkeJK3NMXB+Malvin+Wb5YSUZeWFEq PVQkRkGhAEWBSrMdA3ZvM4FWb5MbL2WqCS59zKwvsnZlUAznBG2XRE0wVDDvWJKOCP3BmARafY1urhRr AMGiHZBVWyAjB58zpLBpYTDkQEPsHLSiOx3QUKRiA8UvpmSdcIayzhBkFVLrXDVYYK3GCIlravPndROz wJrqGI75qCymVE4VDo3KJkFhHF5kwg9VwIPmRz5CSA YwSt4JTAWqDBQmDJWnPQA4KGRlAlGnVGtfGDNlZELoLJQ3EIGvPWElFT8PThXnNOIrFEO6JsfwJEBnDW Fogq6OQXPdBCAnUxL5FNTgDNWcIRXmDCcqAALcCCAkOMM1ZSXpZNQdOT2NJdEeCCIrGIK6YRwtQETcWK Rsev4DSIInHLGhLNioOqXkEZMoYGBqWHxgXXGxMLTp JrzgPTXsWBJfCC5EMuMiHGYjNIG4GgynZJYoOXYaas2WFNQgNEKfXtC5ITHrBAIiOUOlREskCMCgYIJ4 XST9NDElEKPrDD8CUrToNICyLQToRAgeYMLfUZTfvf2EZTAmXBJpFZIdDVRyNYAhDHFnQRpbMPAqIGL8 LQA0PUWfBHLvBU8TNrDcEEWvUGFgMXmqRESbUNGocn 1SOFDtFBPlKiYxDRPtABDtDDKtKNgdZZUxBDR3ZZX8QJHcNRMuAQ7QYrWsIFmlNCGTWsa0NQvtI8j7CZ CmYh1YP0Zjd1SjLKQaQNWYLFryAG1xusIbUNWnUq7SS4lGRrvdZkT3QhYcPgP3Uap3YAPpFIKpCerfBc KvBZJfFio6Dm8kKSKuJsQtALLnZOIbEjvzYMOjDwLa B0VrXyU4TWCqNzq1HiUsCF0NRn9NUsC1SAO3lVIvJl9JTrvpUV0ZAWSAT8PIUu== ID Date Data Source [id number] 07/10/2020 08:51:25 AM [facility] Cmnt XXX-Imp : NoneO+P Stl [...] rce(s) Supporting Document(s) ID Date Data Source [id number] 07/07/2020 10:33:56 AM [facility] Service Cmnt XXX-Imp : NoneGI Panel [...] Name Value Range Interpretation Code Description Data [facility] rce(s) Supporting Document(s) ID Date Data Source [id number] 07/06/2020 02:28:33 PM [facility] Name Value Range Interpretation Code Description Data [facility] rce(s) Supporting Document(s) Progress Note [facility] EILBDd5xFiGNXnRq22/JUSdaECQpd3DiPTolCYr8VMybLEXkM0JfLQU0wD8eMFO9FRlPKaEcOdCkYSM9 lbm [file] G1GhhmEepxyUUMKij/Wqfw3W4n6czNhkAa+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 [file] 0gDQo+Fr3Yc4Sky[id number]== ID Date Data Source [id number] 07/06/2020 11:51:18 AM [facility] Name Value Range Interpretation Code Description Data Zahraa rce(s) Supporting Document(s) Leukocytes [#/volume] in Blood by Automated count 6.1 10*3/uL 4-10 [facility] Erythrocytes [#/volume] in Blood by Automated count 3.13 10*6/uL 4.6- 6.1 L [facility] Hemoglobin [Mass/volume] in Blood 9.9 g/dL 13.5-18 L [facility] Hematocrit [Volume Fraction] of Blood by Automated count 28.7 % 4 1-53 L [facility] Erythrocyte mean corpuscular volume [Entitic volume] by Auto mated count 91.4 fL 80-96 [facility] Erythrocyte mean corpuscular hemoglobin [Entitic mass] by Automated count 31.7 pg 27-33 [facility] Erythrocyte mean corpuscular hemoglobin concentration [Mass/volume] by Automated count 34.6 g/dL 32.0-36.0 [facility] Erythrocyte distribution width [Ratio] by Automated count 14.7 % 11.5-14.5 H [facility] Platelets [#/volume] in Blood by Automated count 71 10*3/uL 150-400 L [facility] Differential cell count method - Blood [facility] Neutrophils/100 leukocytes in Blood by Automated count 80 % [facility] Lymphocytes/100 leukocytes in Blood by Automated count 9 % [facility] Monocytes/100 leukocytes in Blood by Automated count 11 % [facility] Eosinophils/100 leukocytes in Blood by Automated count 0 % [facility] Basophils/100 leukocytes in Blood by Automated count 0 % [facility] Neutrophils [#/volume] in Blood by Automated count 4.88 10*3/uL 1.8-7 .0 [facility] Lymphocytes [#/volume] in Blood by Automated count 0.55 10*3/uL 1.2-4 .0 L [facility] Monocytes [#/volume] in Blood by Automated count 0.64 10*3/uL 0-0.8 [facility] Eosinophils [#/volume] in Blood by Automated count 0.00 10*3/uL 0-0.5 [facility] Basophils [#/volume] in Blood by Automated count 0.00 10*3/uL 0-0.2 [facility] Nucleated erythrocytes/100 leukocytes [Ratio] in Blood by Automated count 0 /100{WBCs} 0-0 [facility] ID Date Data Source [id number] 07/06/2020 12:13:46 PM [facility] Name Value Range Interpretation Code Description Data Zahraa rce(s) Supporting Document(s) Bicarbonate [Moles/volume] in Serum 16 mmol/L 22-29 L [facility] Chloride [Moles/volume] in Serum or Plasma 89 mmol/L 98-107 L [facility] Creatinine [Mass/volume] in Serum or Plasma 1.38 mg/dL 0.70-1.20 H [facility] Glucose [Mass/volume] in Serum or Plasma 179 mg/dL 70-140 H [facility] Potassium [Moles/volume] in Serum or Plasma 3.4 mmol/L 3.4-5.1 [facility] Sodium [Moles/volume] in Serum or Plasma 130 mmol/L 136-145 L [facility] Urea nitrogen [Mass/volume] in Serum or Plasma 35 mg/dL 6-20 H [facility] Anion gap 3 in Serum or Plasma 25 mmol/L 8-15 H [facility] Osmolality of Serum or Plasma by calculation 283 mosm/kg 275-300 [facility] Creatinine/Urea nitrogen [Mass Ratio] in Serum or Plasma 25 [facility] Calcium [Mass/volume] in Serum or Plasma 7.1 mg/dL 8.6-10.0 L [facility] Glomerular filtration rate/1.73 sq M pre dicted among non-blacks [Volume Rate/Area] in Serum or Plasma by Creatinine-based formula (MDRD) 56 mL/min/1.73m2 >60 L [facility] Glomerular filtration rate/1.73 sq M pre dicted among blacks [Volume Rate/Area] in Serum or Plasma by Creatinine-based formula (MDRD) 65 mL/min/1.73m2 >60 [facility] ID Date Data Source [id number] 07/06/2020 12:13:46 PM [facility] Name Value Range Interpretation Code Description Data Zahraa rce(s) Supporting Document(s) Magnesium [Mass/volume] in Serum or Plasma 2.0 mg/dL 1.6-2.6 [facility] ID Date Data Source [id number] 07/06/2020 12:13:46 PM [facility] Name Value Range Interpretation Code Description Data Zahraa rce(s) Supporting Document(s) Phosphate [Mass/volume] in Serum or Plasma 1.7 mg/dL 2.5-4.5 [facility] ID Date Data Source [id number] 07/06/2020 12:09:46 PM [facility] Value Range Interpretation Code Description Data Zahraa rce(s) Supporting Document(s) Lactate [Moles/volume] in Serum or Plasma 1.4 mmol/l 0.5-2.2 [facility] ID Date Data Source [id number] 07/06/2020 08:35:59 AM [facility] Value Range Interpretation Code Description Data Zahraa rce(s) Supporting Document(s) Leukocytes [#/volume] in Blood by Automated count 8.8 10*3/uL 4-10 [facility] Erythrocytes [#/volume] in Blood by Automated count 3.85 10*6/uL 4.6- 6.1 [facility] Hemoglobin [Mass/volume] in Blood 12.1 g/dL 13.5-18 [facility] Hematocrit [Volume Fraction] of Blood by Automated count 35.2 % 4 1-53 [facility] Erythrocyte mean corpuscular volume [Entitic volume] by Auto mated count 91.3 fL 80-96 [facility] Erythrocyte mean corpuscular hemoglobin [Entitic mass] by Automated count 31.5 pg 27-33 [facility] Erythrocyte mean corpuscular hemoglobin concentration [Mass/volume] by Automated count 34.4 g/dL 32.0-36.0 [facility] Erythrocyte distribution width [Ratio] by Automated count 14.4 % 11.5-14.5 [facility] Platelets [#/volume] in Blood by Automated count 88 10*3/uL 150-400 [facility] Differential cell count method - Blood [facility] Neutrophils/100 leukocytes in Blood by Automated count 82 % [facility] Lymphocytes/100 leukocytes in Blood by Automated count 6 % [facility] Monocytes/100 leukocytes in Blood by Automated count 12 % [facility] Eosinophils/100 leukocytes in Blood by Automated count 0 % [facility] Basophils/100 leukocytes in Blood by Automated count 0 % [facility] Neutrophils [#/volume] in Blood by Automated count 7.14 10*3/uL 1.8-7 .0 H [facility] Lymphocytes [#/volume] in Blood by Automated count 0.55 10*3/uL 1.2-4 .0 L [facility] Monocytes [#/volume] in Blood by Automated count 1.08 10*3/uL 0-0.8 H [facility] Eosinophils [#/volume] in Blood by Automated count 0.00 10*3/uL 0-0.5 [facility] Basophils [#/volume] in Blood by Automated count 0.01 10*3/uL 0-0.2 [facility] Nucleated erythrocytes/100 leukocytes [Ratio] in Blood by Automated count 0 /100{WBCs} 0-0 [facility] ID Date Data Source [id number] 07/06/2020 06:55:00 AM EST [facility] Patient: JANICE VERMA Observation Report - Physicians/Mid Levels . [facility].VisitID: [id number] [place] [address] [phone], MRegistration Date/Time: 07/05/2020 20:13 Weight:90.7 kg (S). [...] rce(s) Supporting Document(s) ID Date Data Source [id number] 07/06/2020 06:54:00 AM [facility] CT SCAN OF THE ABDOMEN AND PELVIS [...] rce(s) Supporting Document(s) ID Date Data Source [id number] 07/06/2020 06:44:00 AM [facility] SC[facility] THE CHEST WITHOUT [...] rce(s) Supporting Document(s) ID Date Data Source [id number] 07/06/2020 05:10:14 AM [facility] US ABDOMEN COMPLETE [id number] RESULTInt erpreted by:RYDER PatelROCEDURE INFORMATION: Exam: US [...] rce(s) Supporting Document(s) ID Date Data Source [id number] 07/06/2020 02:29:00 PM [facility] Name Value Range Interpretation Code Description Data Zahraa rce(s) Supporting Document(s) Color of Urine [facility] Clarity of Urine [facility] Specific gravity of Urine by Refractometry automated 1.016 1.003 -1.030 [facility] pH of Urine by Automated test strip 5.0 5.0-8.0 [facility] Protein [Mass/volume] in Urine by Automated test strip 30 mg/dL Neg ative [facility] Glucose [Mass/volume] in Urine by [facility] test [facility] Ketones [Mass/volume] in Urine by Automated test strip 80 [facility] Bilirubin.total [Presence] in Urine by Automated test strip Negative [facility] Hemoglobin [Presence] in Urine by Automated test strip Neg ative [facility] Leukocyte esterase [Presence] in Urine by Automated test strip Negative [facility] Nitrite [Presence] in Urine by Automated test strip Negati ve [facility] Leukocytes [#/area] in Urine sediment by Automated count 0 -5 [facility] Erythrocytes [#/area] in Urine sediment by Automated count 1 /HPF 0-3 [facility] Epithelial cells.squamous [#/area] in Urine sediment by Auto mated count 1 /HPF None [facility] Mucus [#/area] in Urine sediment by Microscopy low power field None [facility] ID Date Data Source [id number] 07/06/2020 03:42:08 PM [facility] Name Value Range Interpretation Code Description Data Zahraa rce(s) Supporting Document(s) Creatinine [Mass/volume] in Urine 56.0 mg/dl [facility] ID Date Data Source [id number] 07/06/2020 03:42:08 PM [facility] Value Range Interpretation Code Description Data Zahraa rce(s) Supporting Document(s) Amphetamine [Presence] in Urine by Screen method Negative [facility] Benzodiazepines [Presence] in Urine by Screen method Negat [facility] Cannabinoids [Presence] in Urine by Screen method Negative [facility] Benzoylecgonine [Presence] in Urine by Screen method Negat [facility] Methadone [Presence] in Urine by Screen method Negative [facility] Opiates [Presence] in Urine by Screen method Negative [facility] Oxycodone [Presence] in Urine by Screen method Negative [facility] (NOTE)Positive results are presumptive a nd unconfirmed;confirmatorytesting can be ordered at the [facility] at [phone] [facility] at [phone] within 5 days of collection. Fentanyl+Norfentanyl [Presence] in Urine by Screen method Negative [facility] (NOTE)Positive results are presumptive a nd unconfirmed;confirmatorytesting can be ordered at the [facility] at [phone] [facility] at [phone] within 5 days of collection. Service comment [facility] Results below the indicated cutoff (ng/m L), are reported as"Negative." Note: for medical purposes only; not valid for legalor employment testing. ID Date Data Source [id number] 07/06/2020 03:42:08 PM [facility] Value Range Interpretation Code Description Data Zahraa rce(s) Supporting Document(s) Sodium [Moles/volume] in Urine 40 mmol/L [facility] ID Date Data Source [id number] 07/06/2020 05:50:54 AM [facility] Value Range Interpretation Code Description Data Zahraa rce(s) Supporting Document(s) Prothrombin time (PT) 15.5 s 12.5-14.9 H [facility] INR in Platelet poor plasma by Coagulation assay 1.21 [facility] Routine intensity oral anticoagulation I NR is typically 2.0-3.0. Target INR must be clinically individualized. ID Date Data Source [id number] 07/06/2020 05:50:54 AM [facility] Value Range Interpretation Code Description Data Zahraa rce(s) Supporting Document(s) aPTT in Platelet poor plasma by Coagulation assay 29.7 s 24.0-33. 0 [facility] ID Date Data Source [id number] 07/06/2020 05:54:53 AM [facility] Value Range Interpretation Code Description Data Zahraa rce(s) Supporting Document(s) Ethanol [Mass/volume] in Serum or Plasma 0.06 g/dl Negative A [facility] ID Date Data Source [id number] 07/06/2020 06:15:03 AM [facility] Value Range Interpretation Code Description Data Zahraa rce(s) Supporting Document(s) Albumin [Mass/volume] in Serum or Plasma by Bromocresol green (BCG) dye binding method 3.3 g/dL 3.5-5.2 L [facility] Bilirubin.total [Mass/volume] in Serum or Plasma 0.6 mg/dL <1.2 [facility] Calcium [Mass/volume] in Serum or Plasma 6.7 mg/dL 8.6-10.0 L [facility] Chloride [Moles/volume] in Serum or Plasma 88 mmol/L 98-107 L [facility] Confirmed Creatinine [Mass/volume] in Serum or Plasma 1.39 mg/dL 0.70-1.20 H [facility] Glucose [Mass/volume] in Serum or Plasma 145 mg/dL 70-140 H [facility] Alkaline phosphatase [Enzymatic activity/volume] in Serum or Plasma 66 U/L 40-129 [facility] Potassium [Moles/volume] in Serum or Plasma 3.2 mmol/L 3.4-5.1 [facility] Confirmed Protein [Mass/volume] in Serum or Plasma 5.7 g/dL 6.4-8.3 L [facility] Sodium [Moles/volume] in Serum or Plasma 131 mmol/L 136-145 L [facility] Confirmed Aspartate aminotransferase [Enzymatic activity/volume] in Serum or Plasma 74 U/L <40 H [facility] Urea nitrogen [Mass/volume] in Serum or Plasma 41 mg/dL 6-20 H [facility] Osmolality of Serum or Plasma by calculation 286 mosm/kg 275-300 [facility] Confirmed Creatinine/Urea nitrogen [Mass Ratio] in Serum or Plasma 30 [facility] Bicarbonate [Moles/volume] in Serum 12 mmol/L 22-29 L [facility] Confirmed Alanine aminotransferase [Enzymatic activity/volume] in Seru m or Plasma 37 U/L <41 [facility] Anion gap 3 in Serum or Plasma 32 mmol/L 8-15 H [facility] Confirmed Glomerular filtration rate/1.73 sq M pre dicted among non-blacks [Volume Rate/Area] in Serum or Plasma by Creatinine-based formula (MDRD) 56 mL/min/1.73m2 >60 [facility] Glomerular filtration rate/1.73 sq M pre dicted among blacks [Volume Rate/Area] in Serum or Plasma by Creatinine-based formula (MDRD) 64 mL/min/1.73m2 >60 [facility] ID Date Data Source [id number] 07/06/2020 11:08:29 AM [facility] Name Value Range Interpretation Code Description Data Zahraa rce(s) Supporting Document(s) Magnesium [Mass/volume] in Serum or Plasma 1.7 mg/dL 1.6-2.6 [facility] ID Date Data Source [id number] 07/06/2020 11:08:29 AM [facility] Value Range Interpretation Code Description Data Zahraa rce(s) Supporting Document(s) Phosphate [Mass/volume] in Serum or Plasma 2.6 mg/dL 2.5-4.5 [facility] ID Date Data Source [id number] 07/06/2020 06:19:33 AM [facility] Value Range Interpretation Code Description Data Zahraa rce(s) Supporting Document(s) HIV 1+2 Ab+HIV1 p24 Ag [Presence] in Serum or Plasma by Immu noassay Non Reactive [facility] Negative for HIV-1 p24 antigenand HIV-1/ HIV-2 antibodies. Nolaboratory evidence of HIVinfection. ID Date Data Source [id number] 07/06/2020 06:14:13 AM [facility] Value Range Interpretation Code Description Data Zahraa rce(s) Supporting Document(s) Hepatitis A virus IgM Ab [Presence] in Serum or Plasma by Im munoassay Non Reactive [facility] No acute infection, susceptible to infec tion. ID Date Data Source [id number] 07/06/2020 06:14:13 AM [facility] Value Range Interpretation Code Description Data Zahraa rce(s) Supporting Document(s) Hepatitis B virus surface Ag [Presence] in Serum or Plasma b y Immunoassay Non Reactive [facility] No active or previous infection. Suscept ible to infection. ID Date Data Source [id number] 07/06/2020 06:14:13 AM [facility] Value Range Interpretation Code Description Data Zahraa rce(s) Supporting Document(s) Hepatitis B virus core IgM Ab [Presence] in Serum or Plasma by Immunoassay Non Reactive [facility] IgM antibodies to HBc were not detected, does not exclude the possibility of exposure to HBV. ID Date Data Source [id number] 07/06/2020 06:14:13 AM [facility] Value Range Interpretation Code Description Data Zahraa rce(s) Supporting Document(s) Hepatitis C virus Ab [Presence] in Serum or Plasma by Immuno assay [facility] Reactive [facility] No serological evidence of active infect ion. If recent exposure is suspected, test for HCV RNA. ID Date Data Source [id number] 07/06/2020 05:55:54 AM [facility] Value Range Interpretation Code Description Data Zahraa rce(s) Supporting Document(s) Lactate [Moles/volume] in Serum or Plasma 5.1 mmol/l 0.5-2.2 [facility] Results called to and read back [place] 6I [place]ST[place] 0501 BY [phone] ID Date Data Source [id number] 07/06/2020 05:52:43 AM [facility] Name Value Range Interpretation Code Description Data Zahraa rce(s) Supporting Document(s) Ammonia [Moles/volume] in Plasma 19 umol/L 16-60 [facility] ID Date Data Source [id number] 07/11/2020 08:53:02 AM [facility] Cmnt XXX-Imp : L BICEPMicroorgan ism XXX Cult : No growth 5 days Name Value Range Interpretation Code Description Data Zahraa rce(s) Supporting Document(s) ID Date Data Source [id number] 07/11/2020 08:53:02 AM [facility] Service Cmnt XXX-Imp : CENTRAL LINEMicro organism XXX Cult : No growth 5 days Name Value Range Interpretation Code Description Data Zahraa rce(s) Supporting Document(s) ID Date Data Source [id number] 07/07/2020 01:37:29 PM [facility] Cmnt XXX-Imp : NoneMicroorganism XXX Cult : No growth 1 day Name Value Range Interpretation Code Description Data Zahraa rce(s) Supporting Document(s) ID Date Data Source [id number] 07/06/2020 02:24:54 AM [facility] Name Value Range Interpretation Code Description Data Zahraa rce(s) Supporting Document(s) Glucose [Mass/volume] in Capillary blood by Glucometer 173 mg/dL 70- 140 H [facility] ID Date Data Source [id number] 07/06/2020 05:25:00 AM [facility] TSYSORDER [id number] Name Value Range Interpretation Code Description Data Zahraa rce(s) Supporting Document(s) URINE RBC 3-5 /hpf 0-3 H [facility] URINE WBC 1-3 /hpf 0-5 [facility] URINE EPITHELIAL CELLS 1+ /hpf 0 [facility] URINE BACTERIA 1+ NONE SEEN [facility] URINE HYALINE CAST 10-30 /LPF 0 [facility] ID Date Data Source [id number] 07/06/2020 12:24:00 AM [facility] TSYSORDER [id number] Name Value Range Interpretation Code Description Data Zahraa rce(s) Supporting Document(s) URINE COLOR. [facility] URINE APPEARANCE CLEAR [facility] URINE GLUCOSE (UA) NEGATIVE mg/dL NEGATIVE [facility] URINE BILIRUBIN 1+(SMALL) NEGATIVE [facility] URINE KETONE 80(LARGE) mg/dL NEGATIVE [facility] SPECIFIC GRAVITY,URINE 1.020 1.001-1.035 [facility] URINE BLOOD 2+(MODERATE) NEGATIVE [facility] PH,URINE 5.5 5.0-9.0 [facility] URINE PROTEIN 1+(30) mg/dL NEGATIVE [facility] URINE UROBILINOGEN NORMAL(0.2-1) mg/dL 0-1 [facility] URINE NITRATE NEGATIVE NEGATIVE [facility] URINE LEUKOCYTE ESTERASE NEGATIVE NEGATIVE [facility] ID Date Data Source [id number] 07/06/2020 12:21:00 AM [facility] TSYSORDER [id number] Name Value Range Interpretation Code Description Data Zahraa rce(s) Supporting Document(s) AMMONIA < 10 umol/L 11-32 [facility] ID Date Data Source [id number] 07/05/2020 11:29:00 PM [facility] TSYSORDER [id number] Name Value Range Interpretation Code Description Data Zahraa rce(s) Supporting Document(s) COVID-19 NEGATIVE NEGATIVE [facility] Negative results should be treated as pr [...] are for the indentification of SARS-CoV-2 RNA. [id number]-[id number] RNA is generally detectable in respiratorysamples during the actue phase of infection. ID Date Data Source [id number] 07/05/2020 11:10:00 PM [facility] Name Value Range Interpretation Code Description Data Zahraa rce(s) Supporting Document(s) COVID-19 [facility] This lab was ordered by [facility] and reported by [facility]. ID Date Data Source [id number] 07/12/2020 09:25:00 AM EST [facility] Name Value Range Interpretation Code Description Data Zahraa rce(s) Supporting Document(s) [facility] Source [id number] 07/05/2020 09:38:00 PM EST [facility] TSYSORDER [id number] Name Value Range Interpretation Code Description Data Zahraa rce(s) Supporting Document(s) LACTIC ACID 9.8 mmol/L 0.4-2.0 H [facility] SAMPLE SLIGHTLY HEMOLYZED CALLED RESULTS TO [facility]OR[facility] IN ED AT 2138 ON 07/05/20 ID Date Data Source [id number] 07/05/2020 09:29:00 PM EST [facility] TSYSORDER [id number] Name Value Range Interpretation Code Description Data Zahraa rce(s) Supporting Document(s) GLUCOSE 174 mg/dL 74-106 H [facility] BLOOD UREA NITROGEN 51 mg/dL 7-18 *H [facility] ital CREATININE 2.7 mg/dL 0.7-1.3 H [facility] SODIUM 127 mmol/L 136-145 L [facility] POTASSIUM 3.1 mmol/L 3.5-5.1 L [facility] CHLORIDE 78 mmol/L 98-107 *L [facility] CO2 14 mmol/L 21-32 *L [facility] CALCIUM 8.2 mg/dL 8.5-10.1 L [facility] ANION GAP 35.0 mmol/L 5-12 H [facility] GLOMERULAR FILTRATION RATE 25 mL/min [facility] GFR IS CALCULATED IN mL/min/1.73m2 VINICIUS L FUNCTION: >90MILDLY DECREASED: 60-89MILDY TO MODERATELY DECREASED: 45-59 MODERATELY TO SEVERELY DECREASED: 30-44SEVERELY DECREASED: 15-29RENAL FAILURE: <15 AST 118 U/L 15-37 *H [facility] ALT 61 U/L 12-78 [facility] ALKALINE PHOSPHATASE 100 U/L 46-116 [facility] pital TOTAL BILIRUBIN 0.8 mg/dL 0.2-1.0 [facility] TOTAL PROTEIN 8.2 g/dl 6.4-8.2 [facility] ALBUMIN 3.9 gm/dL 3.4-5.0 [facility] ID Date Data Source [id number] 07/05/2020 09:29:00 PM EST [facility] TSYSORDER [id number] Name Value Range Interpretation Code Description Data Zahraa rce(s) Supporting Document(s) MAGNESIUM 2.7 mg/dL 1.8-2.4 H [facility] ID Date Data Source [id number] 07/05/2020 09:29:00 PM EST [facility] TSYSORDER [id number] Name Value Range Interpretation Code Description Data Zahraa rce(s) Supporting Document(s) LIPASE 124 U/L [id number] [facility] ID Date Data Source [id number] 07/05/2020 09:24:00 PM EST [facility] TSYSORDER [id number] Name Value Range Interpretation Code Description Data Zahraa rce(s) Supporting Document(s) ETHYL ALCOHOL 0.26 % 0-0.01 H [facility] ID Date Data Source [id number] 07/05/2020 09:17:00 PM [facility] [id number] Name Value Range Interpretation Code Description Data Zahraa rce(s) Supporting Document(s) TSH 1.03 uIU/mL 0.36-3.74 [facility] ID Date Data Source [id number] 07/05/2020 09:12:00 PM [facility] TSYSORDER [id number] Name Value Range Interpretation Code Description Data Zahraa rce(s) Supporting Document(s) PROTHROMBIN TIME (PATIENT) 10.6 SECONDS 9.1-11.6 [facility] INR 1.02 0.87-1.06 [facility] ID Date Data Source [id number] 07/05/2020 09:12:00 PM EST [facility] TSYSORDER [id number] Name Value Range Interpretation Code Description Data Zahraa rce(s) Supporting Document(s) PARTIAL THROMBOPLASTIN TIME 24.4 SECONDS 21.2-27.3 [facility] ID Date Data Source [id number] 07/05/2020 08:48:00 PM EST [facility] TSYSORDER [id number] Name Value Range Interpretation Code Description Data Zahraa rce(s) Supporting Document(s) WHITE BLOOD COUNT 16.4 K/mm3 4.0-10.0 [facility] RED BLOOD COUNT 5.20 M/mm3 4.50-6.00 [facility] HEMOGLOBIN 16.4 gm/dL 14.0-18.0 [facility] HEMATOCRIT 45.2 % 42.0-54.0 [facility] MEAN CELL VOLUME 86.9 fl 80-96 [facility] MEAN CORPUSCULAR HEMOGLOBIN 31.5 pg 27.0-31.0 H [facility] MEAN CORPUSCULAR HGB CONC 36.3 g/dl 32.0-36.0 H [facility] RED CELL DISTRIBUTION WIDTH 13.3 % 10.0-14.5 [facility] PLATELET COUNT 198 K/mm3 172-450 [facility] MEAN PLATELET VOLUME 11.0 fl 9.0-13.0 [facility] pital GRAN % 87.9 % 50-80.0 H [facility] IG% 0.1 % 0.0-0.2 [facility] LYMPH % 4.5 % 25.0-50.0 *L [facility] MONO % 7.3 % 2.0-10.0 [facility] EOS % 0.1 % 0-5.0 [facility] BASO % 0.1 % 0.0-2.0 [facility] GRAN # 14.4 K/mm3 2.0-8.00 H [facility] IG# 0.0 K/mm3 0.0-0.2 [facility] LYMPH # 0.7 K/mm3 1.0-5.0 L [facility] MONO # 1.2 K/mm3 0.10-1.20 [facility] EOS # 0.0 K/mm3 0.0-0.5 [facility] BASO # 0.0 K/mm3 0.0-0.2 [facility] ID Date Data Source [id number] 07/12/2020 09:25:00 AM EST [facility] Name Value Range Interpretation Code Description Data Zahraa rce(s) Supporting Document(s) [facility] ID Date Data Source [id number] 07/24/2019 08:32:00 PM EST [facility] Patient: JANICE VERMA Observation Report - Physicians/Mid Levels . [facility].VisitID: [id number] [place] [address] [phone], MRegistration Date/Time: 07/24/2019 17:27 Weight:99.7 kg (S). [...] 07/24/2019 19:54) Mati mccabe JANICE VERMA VisitID: [id number] Date: 07/24/2019 07/24/2019 20:30indomethacin 25 mg capsule Take 1 capsule every eight hours as needed for pain for 5 days -- Dispense 15 capsule. Refills: 0. Substitution permitted.Pharmacy - [facility] [id number] [place] [address]. FaxNumber: [phone].(Electronically signed by Edita Jasmine - 07/24/2019 20:30) Name Value Range Interpretation Code Description Data Zahraa rce(s) Supporting Document(s) ID Date Data Source [id number] 07/24/2019 07:56:00 PM [facility] Patient: JANICE VERMA Observation Report - Physicians/[id number] [place] [address] [phone], MRegistration Date/Time: 07/24/2019 17:27 Weight:99.7 kg (S). [...] Name Value Range Interpretation Code Description Data [facility] rce(s) Supporting Document(s) ID Date Data Source [id number] 07/22/2019 10:46:00 AM EST [facility] Patient: JANICE VERMA Observation Report - Physicians/Mid Levels . [facility].VisitID: [id number] [place] [address] [phone], MRegistration Date/Time: 07/21/2019 14:03 Weight:99.7 kg (S). [...] Name Value Range Interpretation Code Description Data [facility] rce(s) Supporting Document(s) ID Date Data Source [id number] 07/24/2019 12:02:00 PM EST [facility] Name Value Range Interpretation Code Description Data [facility] rce(s) Supporting Document(s) [facility] ID Date Data Source [id number] 07/21/2019 03:28:00 PM EST [facility] TSYSORDER [id number] Name Value Range Interpretation Code Description Data Zahraa rce(s) Supporting Document(s) URINE RBC NONE SEEN /hpf 0-3 [facility] URINE WBC NONE SEEN /hpf 0-5 [facility] URINE EPITHELIAL CELLS 1+ /hpf 0 [facility] URINE BACTERIA TRACE NONE SEEN H [facility] ID Date Data Source [id number] 07/21/2019 03:56:00 PM [facility] TSYSORDER [id number] Name Value Range Interpretation Code Description Data Zahraa rce(s) Supporting Document(s) GLUCOSE 146 mg/dL 74-106 H [facility] BLOOD UREA NITROGEN 12 mg/dL 7-18 [facility] ital CREATININE 1.2 mg/dL 0.7-1.3 [facility] SODIUM 135 mmol/L 136-145 L [facility] POTASSIUM 3.7 mmol/L 3.5-5.1 [facility] CHLORIDE 97 mmol/L 98-107 L [facility] CO2 28 mmol/L 21-32 [facility] CALCIUM 9.8 mg/dL 8.5-10.1 [facility] ANION GAP 10.0 mmol/L 5-12 [facility] GLOMERULAR FILTRATION RATE 63 mL/min [facility] GFR IS CALCULATED IN mL/min/1.73m2 VINICIUS L FUNCTION: >90MILDLY DECREASED: 60-89MILDY TO MODERATELY DECREASED: 45-59 MODERATELY TO SEVERELY DECREASED: 30-44SEVERELY DECREASED: 15-29RENAL FAILURE: <15 AST 20 U/L 15-37 [facility] ALT 19 U/L 12-78 [facility] ALKALINE PHOSPHATASE 79 U/L 46-116 [facility] pital TOTAL BILIRUBIN 0.8 mg/dL 0.2-1.0 [facility] TOTAL PROTEIN 7.3 g/dl 6.4-8.2 [facility] ALBUMIN 4.0 gm/dL 3.4-5.0 [facility] ID Date Data Source [id number] 07/21/2019 03:12:00 PM [facility] TSYSORDER [id number] Name Value Range Interpretation Code Description Data [facility] rce(s) Supporting Document(s) WHITE BLOOD COUNT 8.9 K/mm3 4.0-10.0 [facility] RED [facility]LOOD COUNT 5.31 M/mm3 4.50-6.00 [facility] HEMOGLOBIN 14.6 gm/dL 14.0-18.0 [facility] HEMATOCRIT 43.6 % 42.0-54.0 [facility] MEAN CELL VOLUME 82.1 fl 80-96 [facility] l MEAN CORPUSCULAR HEMOGLOBIN 27.5 pg 27.0-31.0 [facility] MEAN CORPUSCULAR HGB CONC 33.5 g/dl 32.0-36.0 [facility] RED CELL DISTRIBUTION WIDTH 16.4 % 10.0-14.5 H [facility] PLATELET COUNT 130 K/mm3 172-450 L [facility] MEAN PLATELET VOLUME 11.1 fl 9.0-13.0 [facility] pital GRAN % 59.9 % 50-80.0 [facility] IG% 0.3 % 0.0-0.2 H [facility] LYMPH % 31.2 % 25.0-50.0 [facility] MONO % 7.1 % 2.0-10.0 [facility] EOS % 1.4 % 0-5.0 [facility] BASO % 0.1 % 0.0-2.0 [facility] GRAN # 5.3 K/mm3 2.0-8.00 [facility] IG# 0.0 K/mm3 0.0-0.2 [facility] LYMPH # 2.8 K/mm3 1.0-5.0 [facility] MONO # 0.6 K/mm3 0.10-1.20 [facility] EOS # 0.1 K/mm3 0.0-0.5 [facility] BASO # 0.0 K/mm3 0.0-0.2 [facility] ID Date Data Source [id number] 07/21/2019 03:01:00 PM EST [facility] l DATE OF EXAMINATION: 07/21/2019 14:40 ES [...] (finding) completed Current non-drinker of alcohol (finding) [facility] Tobacco use and exposure 07/06/2020 12:00:00 AM EST Never used co mpleted Never used [facility] Cigarette pack-years 07/06/2020 12:00:00 AM EST [facility] Cigarettes smoked current (pack per day) - Reported 07/06/20 12:00:00 AM EST [facility] Smoking 07/06/2020 12:00:00 AM EST Current every day smoker co mpleted Current every day smoker [facility] Vital Signs ID Date Data Source [id number] 09/10/2020 08:14:00 PM EST [facility] Name Value Range Interpretation Code Description Data Source(s) WEIGHT 88.3 kilos 88.3 kilos [facility] al HEIGHT 177.8 centimeters 177.8 centimeters [facility] ID Date Data Source [id number] 07/14/2020 03:31:42 PM [facility] Name Value Range Interpretation Code Description Data Source(s) WEIGHT RECORDED 190.26 lb 190.26 lb [facility] Body height Measured 68 in 68 in Health system TRANSFER FROM [facility] Patient Treatment Plan of Care Planned Activity Planned Date Details Description Data Source (s) Aspirin 81 MG Delayed Release Oral Tablet 07/10/2020 12:00:00 AM [facility] Magnesium Oxide 400 MG Oral Tablet 07/10/2020 12:00:00 AM [facility] potassium phosphate 155 MG / Sodium Phos phate, Dibasic 852 MG / Sodium Phosphate, Monobasic 130 MG Oral Tablet 07/10/2020 12:00:00 AM [facility] pantoprazole 40 MG Delayed Release Oral Tablet 07/10/2020 12:00:00 AM [facility] Hydroxyzine Hydrochloride 25 MG Oral Tablet 07/10/2020 12:00:00 AM [facility] maalox/lidocaine/diphenhydrAMINE 1:1:1 SWISH & SWAL or al suspension 07/10/2020 12:00:00 AM [facility] Folic Acid 1 MG Oral Tablet 07/10/2020 12:00:00 AM [facility] Thiamine 100 MG Oral Tablet 07/10/2020 12:00:00 AM [facility] Lisinopril 10 MG Oral Tablet 07/10/2020 12:00:00 AM [facility] vancomycin 50 mg/mL PO SOLN oral solution 07/10/2020 12:00:00 AM ES T [facility] fentaNYL (SUBLIMAZE) 100 MCG/2ML (PF) injection 07/06/2020 01:37:47 PM [facility] Capsaicin 1 MG/ML Topical Cream 06/24/2019 12:00:00 AM EDT [facility] Aspirin 325 MG Oral Tablet U [facility] Lisinopril 10 MG Oral Tablet [facility] Hydroxyzine Hydrochloride 25 MG Oral Tablet [facility] Indomethacin (INDOCIN PO) [facility] Esomeprazole 20 MG Delayed Release Oral Capsule [facility] Atenolol 100 MG Oral Tablet [facility]
--- NOTE | 2020-09-13 04:22 | HPEPDOC ---
[facility] Medical History & Physical Date of Admission Sep 13, 2020 Date of Service: Sep 13, 2020 Attending Physician: ABIGAIL LAUREN MD History and Physical CHIEF COMPLAINT: Generalized weakness HISTORY OF PRESENT ILLNESS: Patient is a 55 year old male who was recently hospitalized for COVID-19 pneumonia and human rhino/enterovirus from 08/31/2020- 09/04/2020 at [facility] and discharged on 09/04/2020. While there he was treated with Remdesivirx5 days, dexamethasone, rocephin, and Azithromycin. CTA and bilateral LE U/S was performed that showed no signs of DVT or PE. On discharge, he states for the first 2 or 3 days following this he felt okay but for the past week or so he has felt progressively worse and had a worsening productive cough (unable to expectorate sputum however), generalized weakness, myalgias, and pleurisy. He came to the emergency department at the urging of his roommate who called emergency medical services. CT angiogram done in the emergency department to look for pulmonary embolism showed multifocal pneumonia that was significantly worse and not consistent with COVID-19 infection as the previous CTA had been so the patient was admitted for IV antibiotic therapy. PAST MEDICAL HISTORY: Rheumatoid arthritis hx of TIA's (2019) Major depressive disorder. Alcohol use disorder Nicotine use disorder Hx of chronic opioid use Opiate use disorder Liver Cirrhosis?? Osteoarthritis. GERD. BPH Hx of T2DM not on meds Hx of Gout Hx of hypothyroidism Eczema PAST SURGICAL HISTORY: cholecystectomy appendectomy SOCIAL HISTORY: Tobacco use: 1/2-1 PPD for 30 years ETOH: daily excessive use 2-12 beers/day Illicit drug use: There is a history of opioid therapy dependence, occasional marijuana FAMILY HISTORY: Mother: Siblings: 2 brothers , both early deaths ALLERGIES: Please see below. REVIEW OF SYSTEMS: Constitutional: Denies fevers, chills, night sweats, or recent unepected weight change. Admits to generalized weakness and myalgias. HEENT: Denies headaches, head trauma, no visual changes or eye pain, denies nosebleeds or difficulty swallowing. Cardiovascular: Denies chest pain, palpitations, or orthopnea. Respiratory: Denies wheezing, or shortness of breath. Admits to productive cough, pleurisy. GI: Denies nausea, vomiting, abdominal pain, diarrhea, or constipation : Denies pain with urination or frequency Musculoskeletal: Denies joint pain or swelling Neuro/psych: Denies muscle weakness or sensory loss Skin: Denies skin rashes HOME MEDICATIONS: Please see below. PHYSICAL EXAMINATION: VITAL SIGNS: See below GENERAL APPEARANCE: Unkempt appearing male laying comfortably in bed in no acute distress HEENT: NC, AT, EOMI, no scleral icterus, moist mucous membranes, no pharyngeal erythema. CARDIOVASCULAR: RRR, normal S1-S2. No murmurs, gallops, rubs. LUNGS: Diminished breath sounds bilaterally with prolonged expiratory sounds, no wheezes, crackles, or mild-moderate rhonchi. ABDOMEN: Soft, nontender, nondistended, bowel sounds present. No hepatosplenomegaly. No masses or ecchymosis. No CVA tenderness. EXTREMITIES: 1+ pitting edema in bilateral LE to the level of the knee. NEUROLOGICAL: No focal or sensory deficits. CN II-XII grossly intact. PSYCHIATRIC: Normal mood and affect LABORATORY DATA: See below. IMAGIN09/13/2020 chest x-ray: 1. Lingular consolidation. 2. Scattered mild left lung opacities. 09/13/2020 CT angiogram chest: 1. Negative for pulmonary emboli. 2. Multi-focal consolidations and cavitations. Findings suspicious for bacterial pneumonia versus TB versus fungal pneumonia. 3. Imaging features are atypical or uncommonly reported for COVID-19 pneumonia. Alternative diagnoses should be considered. 4. Diffuse bronchial wall thickening. 5. Moderate left pleural effusion. 6. Lymphadenopathy as described. New from prior. 7. Mild splenomegaly. Unchanged from prior. MICROBIOLOGY: Please see below. Assessment/Plan: 55 year old male recently hospitalized with COVID pneumonia and discharged a week ago presents with a 1 week history of worsening URI symptoms and CT chest findings concerning for multi-focal pneumonia. #. Multi-focal pneumonia -Starting IV Zosyn to cover for aspiration pneumonia and hospital acquired pneumonia. -Pro-calcitonin, blood cultures, sputum cultures ordered. Per radiology report, pnuemonia consistent with possible bacterial vs. fungal vs. TB infection. Quantiferon gold, Beta 1,3 glucan ordered as well. Will monitor for symptomatic improvement. -Repeat lactic acid result pending, patient received 1 liter bolus in ED, and I placed order for 500 ml NS bolus as blood pressure was somewhat soft, will continue to monitor. #. COVID-19 -Patient has completed course of Remdesivir and at this point is outside the window. -He continues to saturate well on room air. -Given elevation of inflammatory markers, will restart IV dexamethasone -Therapeutic lovenox ordered #. Moderate L-pleural effusion -Patient not complaining of dyspnea and satting 97% on RA. Likely 2/2 multifocal pneumonia. #. Alcohol use disorder -[facility] protocol ordered, patient's BRANDI elevated on arrival at 0.22. Will continue to monitor for signs of withdrawal. -Folic acid, MVI, thiamine ordered. #. Hx of CVA -Continue Atorvastatin (was on patients med rec so I doubt actual allergy) -Continue full dose ASA #. Liver Cirrhosis? -Patient claims to have a history of liver cirrhosis, but CT abd/pelvis demonstrates normal liver and 2018 EGD only showed gastritis with no signs of varices. #. Hx of Rheumatoid Arthiritis -Not currently on any treatment or immunomodulators. #. Major depressive disorder -Continue Seroquel, Prozac, atarax #. Eczema -Continue triamcinolone ointment #. BPH -Continue flomax #. GERD -Continue home omeprazole #. Hx of Hypothyroidism -Patient not on meds, will check a TSH, FT4 level #. Hx of diabetes -Will check A1C, BG mildly elevated, may consider SSI -Consistent carb diet. DVT prophylaxis: Therapeutic lovenox dosing @1mg/kg GI prophylaxis: On omeprazole. CODE STATUS: Patient wishes to be DNR trial of intubation, he has no MOLST form but has discussed these wishes with his daughter. Disposition: Pending clinical improvement. Vital Signs Vital Signs Date Time Temp Pulse Resp B/P (MAP) Pulse Ox O2 Delivery O2 Flow Rate FiO2 09/13/20 02:17 73 20 125/57 (79) 98 Room Air 09/12/20 23:47 97.3 Laboratory Data Labs 24H Laboratory Tests 2 09/13/20 00:25: Immature Granulocyte % (Auto) 1.1, Neutrophils (%) (Auto) 65.8, Lymphocytes (%) (Auto) 21.6L, Monocytes (%) (Auto) 8.7H, Eosinophils (%) (Auto) 2.3, Basophils (%) (Auto) 0.5, Neutrophils # (Auto) 4.3, Lymphocytes # (Auto) 1.4L, Monocytes # (Auto) 0.6, Eosinophils # (Auto) 0.2, Basophils # (Auto) 0.0, Nucleated Red Blood Cells % (auto) 0.0, Immature Platelet Fraction 5.6, Prothrombin Time 15.2H, Prothromb Time International Ratio 1.17, Activated Partial Thromboplast Time 34.0, Fibrinogen 617H, D-Dimer, Quantitative > 4000H, Anion Gap 5L, Glomeru lar Filtration Rate > 60.0, Lactic Acid Level 3.2*H, Calcium Level 7.6L, Ferritin 333, Total Bilirubin 0.5, Aspartate Amino Transf (AST/SGOT) 23, Alanine Aminotransferase (ALT/SGPT) 16, Alkaline Phosphatase 99, Lactate Dehydrogenase 248H, Total Creatine Kinase 46, Creatine Kinase MB < 1.0, Creatine Kinase MB Relative Index 2.17, Troponin I < 0.02, C-Reactive Protein, Quantitative 4.25H, Total Protein 6.5, Albumin 2.2L, Albumin/Globulin Ratio 0.5, Ethyl Alcohol Level 0.222H 09/13/20 01:53: POC pH (Misc Panel) 7.408, POC Base Excess (Misc Panel) -4.0L, POC Saturated Percent O2 (Misc) 96, POC pO2 (Misc Panel) 83.0, POC pCO2 (Misc Panel) 33.1L, POC HCO3 (Misc Panel) 20.9L, POC Total CO2 (Misc Panel) 22.0L CBC/BMP Laboratory Tests 09/13/20 00:25 Microbiology Microbiology 09/13/20 Blood Culture, Received Pending 09/13/20 Blood Culture, Received Pending Home Medications Scheduled Aspirin (Aspirin) 325 Mg Tablet, 325 MG PO DAILY Atorvastatin Calcium (Atorvastatin Calcium) 80 Mg Tablet, 80 MG PO DAILY Carvedilol (Carvedilol) 12.5 Mg Tablet, 12.5 MG PO BID Fluoxetine Hcl (Fluoxetine HCl) 20 Mg Capsule, 20 MG PO DAILY Folic Acid (Folic Acid) 1 Mg Tablet, 1 MG PO DAILY Furosemide (Furosemide) 40 Mg Tablet, 40 MG PO DAILY Omeprazole (Omeprazole) 20 Mg Capsule.dr, 40 MG PO DAILY Quetiapine Fumarate (Quetiapine Fumarate) 100 Mg Tablet, 100 MG PO QHS Tamsulosin HCl (Flomax) 0.4 Mg Capsule, 0.4 MG PO BID Scheduled PRN Hydroxyzine HCl (Hydroxyzine HCl) 50 Mg Tablet, 50 MG PO BID PRN for ANXIETY Triamcinolone Acet (Triamcinolone Acetonide 0.1% Crm) 80 Gm Cream..g., 1 DOSE TOP BID PRN for ITCHING Allergies Coded Allergies: Dwghcix-Iit-Dno Reductase Inhibitor (Verified Allergy, Severe, FACIAL REDNESS AND TINGLING, 03/22/19) niacin (Verified Adverse Reaction, Intermediate, CHEST PAIN AND FLUSHING, 03/22/19) hydrocodone (Verified Adverse Reaction, Mild, GI UPSET, 03/22/19) prednisone (Verified Adverse Reaction, Mild, MOOD CHANGE, 03/22/19) GME ATTESTATION GME ATTESTATION My faculty preceptor for this patient encounter was physically present during the encounter and was fully available. All aspects of the patient interview, examination, medical decision making process, and medical care plan development were reviewed and approved by the faculty preceptor. The faculty preceptor is aware and concurs with the plan as stated in the body of this note and will attest to such by his/her cosignature. ATTENDING NOTE ILuis, have independently examined this patient and performed my own physical exam, as well as reviewed the documentation and edited where necessary. I have discussed in detail with the resident / student the findings and plan of treatment as documented by the resident / student and edited their note. I agree with their findings and treatment plan and have edited their documentation. I will continue to follow the patient during this hospital stay. ADELA PAUL DO Sep 13, 2020 04:22 ABIGAIL LAUREN MD Sep 13, 2020 23:42
[2020-09-13 04:39] LABS: FREE T4 1.42 NG/DL (0.76-1.46)
[2020-09-13] MEDS ORDERED: NS 500 ML IV ONE (05:15)
[2020-09-13 08:08] LABS: BASO % 0.3 % (0.0-1.0); EOS # 0.1 10^3/uL (0.0-0.5); EOS % 1.7 % (0.0-3.0); HEMATOCRIT 31.3 % (42.0-52.0); HEMOGLOBIN 10.1 g/dl (13.5-17.5); LYMPH # 0.7 10^3/uL (1.5-5.0); LYMPH % 12.5 % (24.0-44.0); MEAN CORPUSCULAR HEMOGLOBIN 30.1 pg (27.0-33.0); MEAN CORPUSCULAR HGB CONC 32.3 g/dl (32.0-36.5); MEAN CORPUSCULAR VOLUME 93.2 fl (80.0-96.0); MONO # 0.4 10^3/uL (0.0-0.8); NEUTROPHILS # 4.5 10^3/uL (1.5-8.5); NEUTROPHILS % 77.8 % (36.0-66.0); PLATELET COUNT, AUTOMATED 87 10^3/uL (150-450); RED BLOOD COUNT 3.36 10^6/uL (4.30-6.10); WHITE BLOOD COUNT 5.8 10^3/uL (4.0-10.0)
[2020-09-13 08:23] LABS: INR 1.23; PROTHROMBIN TIME 15.8 SECONDS (12.5-14.3)
[2020-09-13 08:24] LABS: PARTIAL THROMBOPLASTIN TIME 36.6 SECONDS (24.2-38.5)
[2020-09-13 08:27] LABS: D-DIMER QUANT 2775.23 ng/ml (<500)
[2020-09-13 08:51] LABS: ALBUMIN 2.3 GM/DL (3.2-5.2); ALT/SGPT 16 U/L (12-78); BILIRUBIN,DIRECT 0.2 MG/DL (0.0-0.2); BILIRUBIN,TOTAL 0.5 MG/DL (0.2-1.0); BLOOD UREA NITROGEN 7 MG/DL (7-18); C REACTIVE PROTEIN QUANTITATIV 3.74 MG/DL (0.00-0.30); CALCIUM LEVEL 7.3 MG/DL (8.5-10.1); CARBON DIOXIDE LEVEL 24 MEQ/L (21-32); CHLORIDE LEVEL 106 MEQ/L (98-107); CPK CREATINE PHOSPHOKINASE 28 U/L (39-308); CREATININE FOR GFR 0.79 MG/DL (0.70-1.30); FERRITIN 249 NG/ML (26-388); GLOMERULAR FILTRATION RATE > 60.0 (>56); GLUCOSE, FASTING 164 MG/DL (70-100); LDH LACTATE DEHYDROGENASE 160 U/L (87-241); MAGNESIUM LEVEL 1.9 MG/DL (1.8-2.4); NT-PRO BNP 158 PG/ML (<125); POTASSIUM SERUM 4.2 MEQ/L (3.5-5.1); SODIUM LEVEL 136 MEQ/L (136-145); TOTAL PROTEIN 6.2 GM/DL (6.4-8.2); TROPONIN I < 0.02 NG/ML (< 0.10)
[2020-09-13] MEDS ORDERED: dexameTHASONE 20MG/5ML VIAL (J1100 PER 1MG) IV SCH (09:00)
[2020-09-13] MEDS ORDERED: THIAMINE 100 MG TAB PO SCH (09:00)
[2020-09-13] MEDS: ATORVASTATIN 20 MG TAB PO SCH (09:12)
[2020-09-13] MEDS: ASPIRIN 325 MG TAB PO SCH (09:13)
[2020-09-13] MEDS: THIAMINE 100 MG TAB PO SCH ×2 (09:13→20:36)
[2020-09-13] MEDS: TAMSULOSIN 0.4 MG CAP PO SCH ×2 (09:13→20:37)
[2020-09-13] MEDS: MULTIVITAMINS/MINERALS THERAP 1 TAB PO SCH (09:13)
[2020-09-13] MEDS: OMEPRAZOLE 20 MG CAP PO SCH (09:13)
[2020-09-13] MEDS: FUROSEMIDE 40 MG TAB PO SCH (09:14)
[2020-09-13] MEDS: FLUoxetine 20 MG CAP PO SCH (09:14)
[2020-09-13] MEDS: hydrOXYzine 50 MG TAB PO PRN ×2 (09:14→17:30)
[2020-09-13] MEDS: FOLIC ACID 1 MG TAB PO SCH (09:14)
[2020-09-13] MEDS: CARVedilol 12.5 MG TAB PO SCH ×2 (09:15→20:36)
[2020-09-13] MEDS: PIPERACILLIN/TAZOBACTAM SOD 3.375 GM in D5W MINI-BAG PLUS 50 ML IV SCH ×3 (09:16→21:40)
--- NOTE | 2020-09-13 10:21 | ECGEPIP ---
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
[2020-09-13 10:59] LABS: HEMOGLOBIN A1c 8.4 %
[2020-09-13] MEDS: QUEtiapine FUMARATE 100 MG TAB PO SCH ×2 (11:16→20:35)
[2020-09-13 11:37] VITALS: BP 143/77
[2020-09-13 11:52] VITALS: BP 143/77
[2020-09-13] MEDS ORDERED: VANCOMYCIN HCL 1,000 MG, VIAL MATE ADAPTER 1 EACH in D5W 250 ML IV ONE ×2 (13:00→14:00)
[2020-09-13] MEDS: NICOTINE 14 MG/24 HR TRANSDERMAL TD SCH (13:27)
[2020-09-13 16:00] VITALS: BP 137/87
[2020-09-13] MEDS: ACETAMINOPHEN TAB 650MG DOSE (2X325MG) PO PRN ×2 (17:30→23:41)
[2020-09-13 20:00] VITALS: BP 133/70
[2020-09-13] MEDS: VANCOMYCIN HCL 1,000 MG, VIAL MATE ADAPTER 1 EACH in D5W 250 ML IV SCH (20:35)
[2020-09-13] MEDS: MORPHINE 15 MG SA TAB PO SCH (20:37)
[2020-09-13] MEDS ORDERED: QUEtiapine FUMARATE 100 MG TAB PO SCH (21:00)
[2020-09-14] VITALS (7 sets, daily range): BP systolic 105–142; BP diastolic 53–84
[2020-09-14] MEDS: PIPERACILLIN/TAZOBACTAM SOD 3.375 GM in D5W MINI-BAG PLUS 50 ML IV SCH ×4 (03:20→23:14)
[2020-09-14] MEDS: VANCOMYCIN HCL 1,000 MG, VIAL MATE ADAPTER 1 EACH in D5W 250 ML IV SCH ×3 (04:34→21:23)
[2020-09-14] MEDS: FUROSEMIDE 40 MG TAB PO SCH (10:22)
[2020-09-14] MEDS: FLUoxetine 20 MG CAP PO SCH (10:22)
[2020-09-14] MEDS: FOLIC ACID 1 MG TAB PO SCH (10:23)
[2020-09-14] MEDS: TAMSULOSIN 0.4 MG CAP PO SCH ×2 (10:23→21:22)
[2020-09-14] MEDS: MORPHINE 15 MG SA TAB PO SCH ×2 (10:23→21:23)
[2020-09-14] MEDS: CARVedilol 12.5 MG TAB PO SCH ×2 (10:23→21:00)
[2020-09-14] MEDS: MULTIVITAMINS/MINERALS THERAP 1 TAB PO SCH (10:24)
[2020-09-14] MEDS: ASPIRIN 325 MG TAB PO SCH (10:24)
[2020-09-14] MEDS: ATORVASTATIN 20 MG TAB PO SCH (10:24)
[2020-09-14] MEDS: OMEPRAZOLE 20 MG CAP PO SCH (10:24)
[2020-09-14] MEDS: NICOTINE 14 MG/24 HR TRANSDERMAL TD SCH (10:26)
[2020-09-14] MEDS: ENOXAPARIN 40MG/0.4ML SYRINGE (J1650 PER 10MG) SC SCH (10:26)
[2020-09-14] MEDS: THIAMINE 100 MG TAB PO SCH ×2 (10:28→21:22)
[2020-09-14 13:15] LABS: BLOOD UREA NITROGEN 10 MG/DL (7-18); CALCIUM LEVEL 7.7 MG/DL (8.5-10.1); CARBON DIOXIDE LEVEL 25 MEQ/L (21-32); CHLORIDE LEVEL 100 MEQ/L (98-107); CREATININE FOR GFR 1.03 MG/DL (0.70-1.30); GLOMERULAR FILTRATION RATE > 60.0 (>56); GLUCOSE, FASTING 293 MG/DL (70-100); POTASSIUM SERUM 3.6 MEQ/L (3.5-5.1); SODIUM LEVEL 132 MEQ/L (136-145)
[2020-09-14] MEDS: hydrOXYzine 50 MG TAB PO PRN (14:31)
[2020-09-14] MEDS: ACETAMINOPHEN TAB 650MG DOSE (2X325MG) PO PRN ×2 (14:31→21:28)
--- NOTE | 2020-09-14 16:42 | IPNPDOC ---
Text Note Date of Service The patient was seen on 09/14/20. NOTE Subjective: Patient is a 55-year-old male with a PMHx of NIDDM2, TIA (2019), Cirrhosis, Hypothyroidism, RA, Depression, Chronic opioid use, Nicotine depe ndance, Gout, BPH, Eczema, GERD who was initially hospitalized for COVID19 pneumonia / Human Rhinovirus from 08/31/2020-09/04/2020 at [facility]. While there, patient had received Remdesivir 5 days, Dexamethasone, Rocephin and azithromycin. He was negative for any PEs or DVTs. Upon discharge. Patient reported that the first 2-3 days. He was doing fine, but then began experience and worsening shortness of breath that prompted him to come to the ER for further evaluation. On arrival to emergency room, patient had a CT angiogram completed that revealed evidence of pneumonia with cavitary lesions inconsistent with COVID19 infection. Patient was seen and examined at the bedside. Patient was seen sitting up, appears to be comfortable, denies any chest pain at rest but does report some pleuritic chest pain when he coughs. However, even the coughing has improved. Patient denies any short of breath, nausea, vomiting, abdominal pain, diarrhea, or urinary discomfort. Objective: Vitals (See below) General: Sitting up in bed, appears comfortable, AAOx3 HEENT: NC, AT CVS: RRR, +S1S2 Lungs: Fair air entry b/l, no visual wheezing, rhonchi or rales Abdomen: Soft, ND, NT Extremities: - Edema, - Calf tenderness Imaging: CTA Chest 09/13: 1. Negative for pulmonary emboli. 2. Multifocal consolidations and cavitations. Findings suspicious for bacterial pneumonia versus TB versus fungal pneumonia. 3. Imaging features are atypical or uncommonly reported for COVID-19 pneumonia. Alternative diagnoses should be considered. 4. Diffuse bronchial wall thickening. 5. Moderate left pleural effusion. 6. Lymphadenopathy as described. New from prior. 7. Mild splenomegaly. Unchanged from prior. CXR 09/13: 1. Lingular consolidation. 2. Scattered mild left lung opacities. Assessment and plan: Shortness of breath / Pleuritic chest pain - likely 2/2 multifocal / cavitary pneumonia; coverage for Anaerobic and MRSA pneumonia - Patient reports to be feeling better - Is hemodynamically stable and afebrile - No significant leukocytosis or lactic acidosis - Procalcitonin not elevated - Imaging noted above - Workup for TB / Fungal infections - Consulted ID; appreciate their input - c/w Vancomycin and Zosyn (Day #2) Blood cultures (1 of 2) positive for gram positive cocci - Will repeat blood cultures - Will check ESR / CRP / ECHO - c/w Antibiotics (See above) COVID-19 - Patient is saturating well on room air - She was treated at [facility] from 08/31-09/04 - s/p Remdesivir x 5 days - Will hold off on additional corticosteroids HTN - BP well controlled - c/w Furosemide / Carvedilol Alcohol use disorder - c/w CIWA protocol and Ativan PRN - c/w Folic acid, Thiamine, MVI TIA / CVA - c/w Atorvastatin and ASA 325 Reported Liver Cirrhosis - Patient claims to have a history of liver cirrhosis, but CT abd/pelvis demonstrates normal liver and 2017 EGD only showed gastritis with no signs of varices RA - Currently not on any immunomodulators Depression - c/w Quetiapine, Hydroxyzine, Fluoxetine Chronic pain / Opioid dependence - c/w Morphine BID Nicotine dependence - c/w Nicotine patch Eczema - c/w triamcinolone BPH - c/w Tamsulosin Hx of Hypothyroidism - TSH noted - Currently not on medications NIDDM2 - c/w ISS GI prophylaxis - c/w Omeprazole DVT prophylaxis - c/w Lovenox 40 QD CODE STATUS: - DNR / Trial of intubation Disposition: - Pending clinical improvement - ID consulted VSPradip, I+O VSPradip, I+O Laboratory Tests 09/14/20 12:35 Vital Signs Date Time Temp Pulse Resp B/P (MAP) Pulse Ox O2 Delivery O2 Flow Rate FiO2 09/14/20 14:00 97.3 65 18 120/66 (84) 96 Room Air I&O- Last 24 Hours up to 6 AM 09/14/20 06:00 Intake Total 3825 ml Output Total 3300 ml Balance 525 ml MACARENA STEWART MD Sep 14, 2020 16:42
[2020-09-14] MEDS ORDERED: DEXTROSE 50% 50 ML SYRINGE IV PRN (16:45)
[2020-09-14] MEDS ORDERED: GLUCOSE 4GM CHEW TABLET PO PRN (16:45)
[2020-09-14] MEDS ORDERED: GLUCAGON INJ 1MG VIAL SC PRN (16:45)
[2020-09-14] MEDS: HumaLOG INSULIN (NovoLOG) PER UNIT SC SCH ×2 (18:41→21:00)
[2020-09-14] MEDS: ONDANSETRON 4MG/2ML VIAL IV PRN ×2 (18:41→23:13)
[2020-09-14] MEDS: QUEtiapine FUMARATE 100 MG TAB PO SCH (21:22)
[2020-09-15] MEDS: PIPERACILLIN/TAZOBACTAM SOD 3.375 GM in D5W MINI-BAG PLUS 50 ML IV SCH ×2 (04:02→10:00)
[2020-09-15] MEDS: VANCOMYCIN HCL 1,000 MG, VIAL MATE ADAPTER 1 EACH in D5W 250 ML IV SCH (05:31)
[2020-09-15 05:37] VITALS: BP 110/61
[2020-09-15] MEDS: HumaLOG INSULIN (NovoLOG) PER UNIT SC SCH ×4 (07:30→20:36)
[2020-09-15 08:00] VITALS: BP 125/59
[2020-09-15 08:00] LABS: BASO % 0.6 % (0.0-1.0); EOS # 0.1 10^3/uL (0.0-0.5); EOS % 2.3 % (0.0-3.0); HEMATOCRIT 32.6 % (42.0-52.0); HEMOGLOBIN 10.5 g/dl (13.5-17.5); LYMPH # 1.2 10^3/uL (1.5-5.0); LYMPH % 22.2 % (24.0-44.0); MEAN CORPUSCULAR HEMOGLOBIN 31.1 pg (27.0-33.0); MEAN CORPUSCULAR HGB CONC 32.2 g/dl (32.0-36.5); MEAN CORPUSCULAR VOLUME 96.4 fl (80.0-96.0); MONO # 0.3 10^3/uL (0.0-0.8); MONO % 6.2 % (0.0-5.0); NEUTROPHILS # 3.5 10^3/uL (1.5-8.5); NEUTROPHILS % 68.1 % (36.0-66.0); RED BLOOD COUNT 3.38 10^6/uL (4.30-6.10); WHITE BLOOD COUNT 5.2 10^3/uL (4.0-10.0)
[2020-09-15 08:02] LABS: PLATELET COUNT, AUTOMATED 99 10^3/uL (150-450)
[2020-09-15 08:24] LABS: ALBUMIN 2.5 GM/DL (3.2-5.2); ALT/SGPT 29 U/L (12-78); BILIRUBIN,TOTAL 0.5 MG/DL (0.2-1.0); BLOOD UREA NITROGEN 6 MG/DL (7-18); C REACTIVE PROTEIN QUANTITATIV 1.26 MG/DL (0.00-0.30); CALCIUM LEVEL 7.4 MG/DL (8.5-10.1); CARBON DIOXIDE LEVEL 28 MEQ/L (21-32); CHLORIDE LEVEL 100 MEQ/L (98-107); GLOMERULAR FILTRATION RATE > 60.0 (>56); GLUCOSE, FASTING 131 MG/DL (70-100); MAGNESIUM LEVEL 1.6 MG/DL (1.8-2.4); POTASSIUM SERUM 3.5 MEQ/L (3.5-5.1); SODIUM LEVEL 136 MEQ/L (136-145); TOTAL PROTEIN 6.7 GM/DL (6.4-8.2)
[2020-09-15 08:43] LABS: ERYTHROCYTE SEDIMENTATION RATE 82 mm/hr (0-20)
[2020-09-15] MEDS: ENOXAPARIN 40MG/0.4ML SYRINGE (J1650 PER 10MG) SC SCH (09:00)
[2020-09-15] MEDS: ATORVASTATIN 20 MG TAB PO SCH (09:50)
[2020-09-15] MEDS: FOLIC ACID 1 MG TAB PO SCH (09:50)
[2020-09-15] MEDS: OMEPRAZOLE 20 MG CAP PO SCH (09:50)
[2020-09-15] MEDS: ASPIRIN 325 MG TAB PO SCH (09:50)
[2020-09-15] MEDS: TAMSULOSIN 0.4 MG CAP PO SCH ×2 (09:50→20:36)
[2020-09-15] MEDS: MORPHINE 15 MG SA TAB PO SCH ×2 (09:51→20:36)
[2020-09-15] MEDS: THIAMINE 100 MG TAB PO SCH ×2 (09:51→20:36)
[2020-09-15] MEDS: CARVedilol 12.5 MG TAB PO SCH ×2 (09:52→20:36)
[2020-09-15 09:58] LABS: HEPATITIS C VIRUS ABY INDEX < 0.0 INDEX (<0.8); HIV 1&2 SCREEN CENTAUR NEGATIVE (NEGATIVE)
[2020-09-15] MEDS: FUROSEMIDE 40 MG TAB PO SCH (09:59)
[2020-09-15] MEDS: MULTIVITAMINS/MINERALS THERAP 1 TAB PO SCH (09:59)
[2020-09-15] MEDS: FLUoxetine 20 MG CAP PO SCH (09:59)
[2020-09-15] MEDS: NICOTINE 14 MG/24 HR TRANSDERMAL TD SCH (10:00)
--- NOTE | 2020-09-15 12:45 | IPNPDOC ---
Text Note Date of Service The patient was seen on 09/15/20. NOTE Subjective: Patient is a 55-year-old male with a PMHx of NIDDM2, TIA (2019), Cirrhosis, Hypothyroidism, RA, Depression, Chronic opioid use, Nicotine depe ndance, Gout, BPH, Eczema, GERD who was initially hospitalized for COVID19 pneumonia / Human Rhinovirus from 08/31/2020-09/04/2020 at [facility]. While there, patient had received Remdesivir 5 days, Dexamethasone, Rocephin and azithromycin. He was negative for any PEs or DVTs. Upon discharge. Patient reported that the first 2-3 days. He was doing fine, but then began experience and worsening shortness of breath that prompted him to come to the ER for further evaluation. On arrival to emergency room, patient had a CT angiogram completed that revealed evidence of pneumonia with cavitary lesions inconsistent with COVID19 infection. Patient was seen and examined at the bedside. Currently denies any chest pain, short of breath, palpitations. Denies any nausea, vomiting, abdominal pain, diarrhea, or urinary discomfort. Patient reports that he is feeling better than he did yesterday. Objective: Vitals (See below) General: Laying in bed, appears to be comfortable without any distress, is awake, alert and oriented 3 HEENT: NC, AT CVS: +S1S2 Lungs: There appears to be fair air entry bilaterally. Mild rhonchi at left lung base. No wheezing Abdomen: Soft, nondistended and nontender Extremities: No evidence of edema, - Calf tenderness Imaging: CTA Chest 09/13: 1. Negative for pulmonary emboli. 2. Multifocal consolidations and cavitations. Findings suspicious for bacterial pneumonia versus TB versus fungal pneumonia. 3. Imaging features are atypical or uncommonly reported for COVID-19 pneumonia. Alternative diagnoses should be considered. 4. Diffuse bronchial wall thickening. 5. Moderate left pleural effusion. 6. Lymphadenopathy as described. New from prior. 7. Mild splenomegaly. Unchanged from prior. CXR 09/13: 1. Lingular consolidation. 2. Scattered mild left lung opacities. Assessment and plan: Shortness of breath / Pleuritic chest pain - likely 2/2 multifocal / cavitary pneumonia; coverage for Anaerobic and MRSA pneumonia - Continues to feel - Is hemodynamically stable and afebrile - No significant leukocytosis or lactic acidosis - Inflammatory markers - Procalcitonin not elevated - Imaging noted above - Will requires imaging records from [facility] - Workup for TB / Fungal infections - Consulted ID; appreciate their input - c/w Vancomycin and Zosyn (Day #3) Blood cultures (1 of 2) positive for gram positive cocci - Blood cultures 09/13: Preliminary positive for Gram Positive Cocci in pairs / clusters - Blood cultures 09/14: Pending - ECHO pending - c/w Antibiotics (See above) COVID-19 - Patient is saturating well on room air - She was treated at [facility] from 08/31-09/04 - s/p Remdesivir x 5 days - Will hold off on additional corticosteroids HTN - BP well controlled - c/w Furosemide / Carvedilol Alcohol use disorder - c/w CIWA protocol and Ativan PRN - c/w Folic acid, Thiamine, MVI TIA / CVA - c/w Atorvastatin and ASA 325 Reported Liver Cirrhosis - Patient claims to have a history of liver cirrhosis, but CT abd/pelvis demonstrates normal liver and 2017 EGD only showed gastritis with no signs of varices RA - Currently not on any immunomodulators Depression - c/w Quetiapine, Hydroxyzine, Fluoxetine Chronic pain / Opioid dependence - c/w Morphine BID Nicotine dependence - c/w Nicotine patch Eczema - c/w triamcinolone BPH - c/w Tamsulosin Hx of Hypothyroidism - TSH noted - Currently not on medications NIDDM2 - c/w ISS GI prophylaxis - c/w Omeprazole DVT prophylaxis - c/w Lovenox 40 QD CODE STATUS: - DNR / Trial of intubation Disposition: - Awaiting culture results VS,Pradip, I+O VS, Pradip, I+O Laboratory Tests 09/15/20 07:22 Vital Signs Date Time Temp Pulse Resp B/P (MAP) Pulse Ox O2 Delivery O2 Flow Rate FiO2 09/15/20 09:52 71 125/59 09/15/20 09:51 20 Room Air 09/15/20 08:00 98.1 95 I&O- Last 24 Hours up to 6 AM 09/15/20 05:59 Intake Total 1950 ml Output Total 625 ml Balance 1325 ml MACARENA STEWART MD Sep 15, 2020 12:45
[2020-09-15] MEDS ORDERED: MAG SULF 1GM/100ML (MAG RUN) 1 GM in IV 1 EA IV ONE (13:00)
[2020-09-15] MEDS ORDERED: VANCOMYCIN HCL 1,000 MG, VIAL MATE ADAPTER 1 EACH in D5W 250 ML IV SCH (15:00)
[2020-09-15 15:42] VITALS: BP 130/71
[2020-09-15] MEDS: ONDANSETRON 4MG/2ML VIAL IV PRN (16:01)
--- NOTE | 2020-09-15 17:51 | IPN ---
PROGRESS NOTE DATE: 09/15/2020 SUBJECTIVE: Kobe is doing better. He still has a mild cough but no fever, chills, night sweats. He is lying in bed comfortably and would like to go home PHYSICAL EXAMINATION: Vital signs: Temperature 96, pulse 66, respirations 18, blood pressure 130/71, O2 saturation 95% on room air. Heart: Normal S1, S2. No murmurs. Lungs: Diminished breath sounds at the bases. Abdomen: Obese, soft and nontender. Extremities: No evidence of edema or calf tenderness. CT chest was reviewed from [facility] where he was admitted with COVID pneumonia. He has a similar dense consolidation in lower lobe with multiple cavitations as well. Multi-focal areas of consolidation bilaterally. LABS: White count 5.2, hemoglobin 10.5, hematocrit 32.6, platelets 99, 68% neutrophils, 22% lymphocytes, 6% monocytes, ESR 82, sodium 136, potassium 3.5, chloride 100, bicarb 28, BUN 6, creatinine 0.9, glucose 131, calcium 7.4, magnesium 1.6, CRP 1.26, procalcitonin less than 0.05 twice. Blood culture one out of two has strep that has not been identified and two blood cultures repeated on September 14 are pending. IMPRESSION: 1. COVID pneumonitis with cavitary lesions. I suspected these are related to COVID pneumonia and not to bacterial or fungal infection as his procalcitonin on two occasions have been normal. His inflammatory markers are pretty benign and he is afebrile and feels well. 2. Positive blood culture with strep, possibly a contaminant. 3. Positive nasal MRSA PCR . 4. Alcoholic liver cirrhosis. HIV negative. Hepatitis C negative. The patient was advised to remain completely abstinent of alcohol. PLAN: The patient could be switched to by mouth doxycycline for seven days for possible bacterial pneumonia although unlikely. I reviewed the literature on cavitation and COVID pneumonitis and that has been described Case has been discussed with Dr. Najera agrees with the plan. The patient hopefully will be discharged home tomorrow. ZURI
[2020-09-15 18:08] LABS: FUNGITELL, SERUM <31 pg/mL (<80); MYCOPLASMA PNEUMONIAE IgG 357 U/mL (0-99); MYCOPLASMA PNEUMONIAE IgM <770 U/mL (0-769)
[2020-09-15 20:13] VITALS: BP 147/71
[2020-09-15] MEDS: QUEtiapine FUMARATE 100 MG TAB PO SCH (20:36)
[2020-09-15] MEDS: DOXYCYCLINE HYCLATE 100MG TABLET PO SCH (20:36)
[2020-09-16 05:55] VITALS: BP 137/81
[2020-09-16 06:33] LABS: BASO % 0.6 % (0.0-1.0); EOS # 0.1 10^3/uL (0.0-0.5); EOS % 2.3 % (0.0-3.0); HEMOGLOBIN 10.2 g/dl (13.5-17.5); MEAN CORPUSCULAR HEMOGLOBIN 30.2 pg (27.0-33.0); MEAN CORPUSCULAR HGB CONC 31.9 g/dl (32.0-36.5); MEAN CORPUSCULAR VOLUME 94.7 fl (80.0-96.0); MONO # 0.4 10^3/uL (0.0-0.8); MONO % 7.8 % (0.0-5.0); NEUTROPHILS # 3.1 10^3/uL (1.5-8.5); NEUTROPHILS % 66.5 % (36.0-66.0); RED BLOOD COUNT 3.38 10^6/uL (4.30-6.10); WHITE BLOOD COUNT 4.7 10^3/uL (4.0-10.0)
[2020-09-16 06:36] LABS: PLATELET COUNT, AUTOMATED 98 10^3/uL (150-450)
[2020-09-16 06:56] LABS: ALBUMIN 2.4 GM/DL (3.2-5.2); ALT/SGPT 38 U/L (12-78); BILIRUBIN,TOTAL 0.5 MG/DL (0.2-1.0); BLOOD UREA NITROGEN 8 MG/DL (7-18); CALCIUM LEVEL 7.9 MG/DL (8.5-10.1); CARBON DIOXIDE LEVEL 26 MEQ/L (21-32); CHLORIDE LEVEL 100 MEQ/L (98-107); CREATININE FOR GFR 0.85 MG/DL (0.70-1.30); GLOMERULAR FILTRATION RATE > 60.0 (>56); GLUCOSE, FASTING 163 MG/DL (70-100); MAGNESIUM LEVEL 1.8 MG/DL (1.8-2.4); POTASSIUM SERUM 3.7 MEQ/L (3.5-5.1); SODIUM LEVEL 133 MEQ/L (136-145); TOTAL PROTEIN 6.4 GM/DL (6.4-8.2)
[2020-09-16] MEDS: ONDANSETRON 4MG/2ML VIAL IV PRN (06:57)
[2020-09-16 08:18] VITALS: BP 137/81
[2020-09-16] MEDS: ENOXAPARIN 40MG/0.4ML SYRINGE (J1650 PER 10MG) SC SCH (08:18)
[2020-09-16] MEDS: HumaLOG INSULIN (NovoLOG) PER UNIT SC SCH ×2 (08:18→12:46)
[2020-09-16] MEDS: FOLIC ACID 1 MG TAB PO SCH (08:18)
[2020-09-16] MEDS: CARVedilol 12.5 MG TAB PO SCH (08:18)
[2020-09-16] MEDS: FUROSEMIDE 40 MG TAB PO SCH (08:19)
[2020-09-16] MEDS: DOXYCYCLINE HYCLATE 100MG TABLET PO SCH (08:19)
[2020-09-16] MEDS: ASPIRIN 325 MG TAB PO SCH (08:19)
[2020-09-16] MEDS: TAMSULOSIN 0.4 MG CAP PO SCH (08:19)
[2020-09-16] MEDS: OMEPRAZOLE 20 MG CAP PO SCH (08:19)
[2020-09-16] MEDS: FLUoxetine 20 MG CAP PO SCH (08:19)
[2020-09-16] MEDS: MULTIVITAMINS/MINERALS THERAP 1 TAB PO SCH (08:19)
[2020-09-16] MEDS: ATORVASTATIN 20 MG TAB PO SCH (08:19)
[2020-09-16] MEDS: NICOTINE 14 MG/24 HR TRANSDERMAL TD SCH (08:19)
[2020-09-16] MEDS: MORPHINE 15 MG SA TAB PO SCH (08:20)
[2020-09-16 12:00] VITALS: BP 122/67
[2020-09-16] MEDS ORDERED: DOXY100T PO (12:19)
--- NOTE | 2020-09-16 16:01 | DS.PDOC ---
Discharge Summary General Date of Admission Sep 13, 2020 at 03:24 Date of Discharge September 16, 2020 Attending Physician: RADHA STEWART MD Specialist/Consultants Involve: Damien Bianchi MD Discharge Summary PROCEDURES PERFORMED DURING STAY: [None]. ADMITTING DIAGNOSES: 1. Multifocal PNA DISCHARGE DIAGNOSES: 1. History of COVID19 PNA, cavitary lesions COMPLICATIONS/CHIEF COMPLAINT: Bacterial Pneumonia,Covid-19. HISTORY OF PRESENT ILLNESS: Patient is a 55 year old male who was recently hospitalized for COVID-19 pneumonia and human rhino/enterovirus from 08/31/2020- 09/04/2020 at [facility] and discharged on 09/04/2020. While there he was treated with Remdesivirx5 days, dexamethasone, rocephin, and Azithromycin. CTA and bilateral LE U/S was performed that showed no signs of DVT or PE. On discharge, he states for the first 2 or 3 days following this he felt okay but for the past week or so he has felt progressively worse and had a worsening productive cough (unable to expectorate sputum however), generalized weakness, myalgias, and pleurisy. He came to the emergency department at the urging of his roommate who called emergency medical services. CT angiogram done in the emergency department to look for pulmonary embolism showed multifocal pneumonia that was significantly worse and not consistent with COVID-19 infection as the previous CTA had been so the patient was admitted for IV antibiotic therapy. HOSPITAL COURSE: Shortness of breath / Pleuritic chest pain - likely 2/2 cavitary PNA 2/2 COVID19 infection - Is hemodynamically stable and afebrile - No significant leukocytosis or lactic acidosis - Inflammatory markers trended down - Procalcitonin not elevated - Imaging noted below - Imaging from [facility] reviewed and lesions correspond to those from COVID19 PNA. Therefore more likely post-infectious cavitary lesions - Workup for TB / Fungal infections negative thus far - ID recommended Doxycycline for 10 days; s/p Vancomycin and Zosyn (3 days) Blood cultures (1 of 2) positive for gram positive cocci - Blood cultures 09/13: Preliminary positive for Gram Positive Cocci in pairs / clusters - Blood cultures 09/14: Pending - ECHO pending - c/w Antibiotics (See above) COVID-19 - Patient is saturating well on room air - He was treated at [facility] from 08/31-09/04 - s/p Remdesivir x 5 days - Will hold off on additional corticosteroids HTN - BP well controlled - c/w Furosemide / Carvedilol Alcohol use disorder - c/w CIWA protocol and Ativan PRN - c/w Folic acid, Thiamine, MVI TIA / CVA - c/w Atorvastatin and ASA 325 Reported Liver Cirrhosis - Patient claims to have a history of liver cirrhosis, but CT abd/pelvis demonstrates normal liver and 2017 EGD only showed gastritis with no signs of varices RA - Currently not on any immunomodulators Depression - c/w Quetiapine, Hydroxyzine, Fluoxetine Chronic pain / Opioid dependence - c/w Morphine BID Nicotine dependence - c/w Nicotine patch Eczema - c/w triamcinolone BPH - c/w Tamsulosin Hx of Hypothyroidism - TSH noted - Currently not on medications DISCHARGE MEDICATIONS: Please see below. ALLERGIES: Please see below. PHYSICAL EXAMINATION ON DISCHARGE: VITAL SIGNS: Please see below. GENERAL: alert and oriented, in no apparent distress, pleasant and conversant in full sentences. HEENT: PERRL, EOMI, Oral mucous membranes are moist without lesions. NECK: The patient has no noted JVD. No adenopathy is appreciated. No thyromegaly CHEST/LUNGS: Lungs are clear bilaterally without rhonchi, rales, or wheezes. T here is no subcutaneous air appreciated. There is no tenderness to the chest wall. HEART:Regular rate and rhythm. No murmurs, rubs, or gallops are appreciated. Distal pulses are 2+. No carotid bruits appreciated. ABDOMEN: Soft, nontender, and nondistended. Bowel sounds are positive. No organomegaly is appreciated. No masses are appreciated. There are no peritoneal signs. There is no Herriman sign. EXTREMITIES: No peripheral edema. There is no focal long bone tenderness or deformity. BKIN: The patients skin is warm and dry, without rashes or lesions. PSYCHIATRIC: AAO x 3, normal mood/affect NEUROLOGIC: The patient has 5/5 strength to the upper and lower extremities bilaterally. Sensation is intact throughout. Deep tendon reflexes are 2+ in all four extremities. There are no deficits to the cranial nerves. LABORATORY DATA: Please see below. IMAGING: CXR: FINDINGS: Lungs: Lingular consolidation. Scattered mild left lung opacities. Pleural space: Unremarkable. No pleural effusion. No pneumothorax. Heart/Mediastinum: Unremarkable. No cardiomegaly. Bones/joints: Unremarkable. IMPRESSION: 1. Lingular consolidation. 2. Scattered mild left lung opacities. CT ANGIO CHEST: IMPRESSION: 1. Negative for pulmonary emboli. 2. Multifocal consolidations and cavitations. Findings suspicious for bacterial pneumonia versus TB versus fungal pneumonia. 3. Imaging features are atypical or uncommonly reported for COVID-19 pneumonia. Alternative diagnoses should be considered. 4. Diffuse bronchial wall thickening. 5. Moderate left pleural effusion. 6. Lymphadenopathy as described. New from prior. 7. Mild splenomegaly. Unchanged from prior. PROGNOSIS: Fair ACTIVITY: [As tolerated]. DIET: Consistent carbohydrate DISCHARGE PLAN / DISPOSITION: Home DISCHARGE INSTRUCTIONS: 1. Follow-up with PCP after 14 days 2. Follow-up with after 14 days ITEMS TO FOLLOWUP ON ON OUTPATIENT: 1. None DISCHARGE CONDITION: [Stable]. TIME SPENT ON DISCHARGE: 45 minutes. Vital Signs/I&Os Vital Signs Date Time Temp Pulse Resp B/P (MAP) Pulse Ox O2 Delivery O2 Flow Rate FiO2 09/16/20 12:00 97.8 73 18 122/67 (85) 95 Room Air I&O- Last 24 Hours up to 6 AM 09/16/20 06:00 Intake Total 2300 ml Output Total 0 ml Balance 2300 ml Laboratory Data Labs 24H Laboratory Tests 2 09/15/20 16:38: Bedside Glucose (Misc Panel) 155H 09/15/20 20:07: Bedside Glucose (Misc Panel) 187H 09/16/20 05:38: Immature Granulocyte % (Auto) 0.8, Neutrophils (%) (Auto) 66.5H, Lymphocytes (%) (Auto) 22.0L, Monocytes (%) (Auto) 7.8H, Eosinophils (%) (Auto) 2.3, Basophils (%) (Auto) 0.6, Neutrophils # (Auto) 3.1, Lymphocytes # (Auto) 1.0L, Monocytes # (Auto) 0.4, Eosinophils # (Auto) 0.1, Basophils # (Auto) 0.0, Nucleated Red Blood Cells % (auto) 0.0, Anion Gap 7L, Glomerular Filtration Rate > 60.0, Calcium Level 7.9L, Magnesium Level 1.8, Total Bilirubin 0.5, Aspartate Amino Transf (AST/SGOT) 43H, Alanine Aminotransferase (ALT/SGPT) 38, Alkaline Phosphatase 169H, Total Protein 6.4, Albumin 2.4L, Albumin/Globulin Ratio 0.6 09/16/20 11:45: Bedside Glucose (Misc Panel) 203H CBC/BMP Laboratory Tests 09/16/20 05:38 FSBS Laboratory Tests Test 09/15/20 16:38 09/15/20 20:07 09/16/20 11:45 Range/Units Bedside Glucose (Misc Panel) 155 187 203 70-105 MG/DL Microbiology Microbiology 09/14/20 Blood Culture - Preliminary, Resulted No growth after 24 hours . All specim... 09/14/20 Blood Culture - Preliminary, Resulted No growth after 24 hours . All specim... 09/13/20 Blood Culture - Preliminary, Resulted 09/13/20 Blood Culture - Preliminary, Resulted No Growth after 72 hours. All specime... Discharge Medications Scheduled Aspirin (Aspirin) 325 Mg Tablet, 325 MG PO DAILY, (Reported) Atorvastatin Calcium (Atorvastatin Calcium) 80 Mg Tablet, 80 MG PO DAILY, (Reported) Carvedilol (Carvedilol) 12.5 Mg Tablet, 12.5 MG PO BID, (Reported) Doxycycline Hyclate (Doxycycline Hyclate) 100 Mg Tablet, 100 MG PO BID Fluoxetine Hcl (Fluoxetine HCl) 20 Mg Capsule, 20 MG PO DAILY, (Reported) Folic Acid (Folic Acid) 1 Mg Tablet, 1 MG PO DAILY, (Reported) Furosemide (Furosemide) 40 Mg Tablet, 40 MG PO DAILY, (Reported) Omeprazole (Omeprazole) 20 Mg Capsule.dr, 40 MG PO DAILY, (Reported) Quetiapine Fumarate (Quetiapine Fumarate) 100 Mg Tablet, 100 MG PO QHS, (Reported) Tamsulosin HCl (Flomax) 0.4 Mg Capsule, 0.4 MG PO BID, (Reported) Scheduled PRN Hydroxyzine HCl (Hydroxyzine HCl) 50 Mg Tablet, 50 MG PO BID PRN for ANXIETY, (Reported) Triamcinolone Acet (Triamcinolone Acetonide 0.1% Crm) 80 Gm Cream..g., 1 DOSE TOP BID PRN for ITCHING, (Reported) Allergies Coded Allergies: Zqqytfu-Neu-Ase Reductase Inhibitor (Verified Allergy, Severe, FACIAL REDNESS AND TINGLING, 03/22/19) niacin (Verified Adverse Reaction, Intermediate, CHEST PAIN AND FLUSHING, 03/22/19) hydrocodone (Verified Adverse Reaction, Mild, GI UPSET, 03/22/19) prednisone (Verified Adverse Reaction, Mild, MOOD CHANGE, 03/22/19) GME ATTESTATION GME ATTESTATION My faculty preceptor for this patient encounter was physically present during the encounter and was fully available. All aspects of the patient interview, e xamination, medical decision making process, and medical care plan development were reviewed and approved by the faculty preceptor. The faculty preceptor is aware and concurs with the plan as stated in the body of this note and will attest to such by his/her cosignature. ATTENDING NOTE I, Radha Stewart, have independently examined this patient and performed my own physical exam, as well as reviewed the documentation and edited where necessary. I have discussed in detail with the resident / student the findings and plan of treatment as documented by the resident / student and edited their note. I agree with their findings and treatment plan and have edited their documentation. I will continue to follow the patient during this hospital stay. Time spent on discharge 35 minutes PEPE ABDALLA MD Sep 16, 2020 12:17 RADHA STEWART MD Sep 16, 2020 16:18
--- NOTE | 2020-09-18 11:00 | CR ---
CONSULTATION DATE: 09/16/2020 REASON FOR CONSULTATION: I was asked to consult by Dr. Johnson for evaluation of post-COVID pneumonia. HISTORY OF PRESENT ILLNESS: Mr. Verma is a 55-year-old pleasant gentleman who was recently hospitalized at [facility] on August 31, discharged on September 04 with COVID-19 pneumonia. He was treated with five days of IV remdesivir and Decadron as well as Rocephin and Zithromax. He had a lower extremity ultrasound that has no DVT. The patient stated he was feeling well for about three days after discharge but then started developing progressively worse shortness of breath, productive cough, but the phlegm was not able to be expectorated, weakness, myalgias and pleurisy. He came back to the Emergency Room to be evaluated because his roommate was concerned about him. He lives in [place] with a roommate and a dog. His roommate also had COVID. CT angiogram done in the Emergency Room showed multi-focal pneumonia not consistent with COVID-19 but no evidence of pulmonary embolism. MRSA screen was positive. The patient was started on Vancomycin IV and Zosyn for treatment of hospital-acquired pneumonia post-COVID. MEDICAL HISTORY: Significant for rheumatoid arthritis. The patient had a positive CCP and rheumatoid factor many years ago but he had not been treated with any medications recently other than Oxycodone, history of transient ischemic attack (TIA), major depressive disorder, alcohol use disorder with liver cirrhosis. The patient does know he has liver cirrhosis. History of opioid use disorder, osteoarthritis, gastroesophageal reflux disease, benign prostatic hypertrophy (BPH), type-2 diabetes not on medication, gout and hypothyroidism. SURGICAL HISTORY: Laparoscopic cholecystectomy, appendectomy. SOCIAL HISTORY: Tobacco use, half a pack to a pack of cigarettes a day for 30 years. Alcohol daily, at least a 12-18 pack of beer a day although at times he does not drink at all or drinks two. Recently he has cut back. Illicit drug use: He smokes marijuana. No IV drugs ever. FAMILY HISTORY: Mother of heart disease. Two brothers last summer. He states that he had at least four family members in the past year of heart issues or other issues. REVIEW OF SYSTEMS: He denied having fevers or chills or night sweats. No recent weight change. He has generalized weakness, myalgias but no headache or trauma, no chest pain or palpitations. No nausea, vomiting, or diarrhea. No urinary symptoms. PHYSICAL EXAMINATION: General: He is a pleasant obese man in no acute distress. HEENT: Pupils equal, round, and reactive, anicteric. Oropharynx is clear. Heart: Normal S1, S2. No murmurs, rubs or gallops. Lungs: Crackles at both bases with good air entry. No wheezes or rhonchi. Abdomen: Morbidly obese, soft, nontender, no hepatosplenomegaly. Extremities: +1 pitting edema bilateral lower extremities to the level of the knee. Neurologic exam: Normal. Skin: He has bilateral gynecomastia and caput medusa especially prominent on the right side under the liver. CT angiogram: Multifocal consolidation and cavitation suspicious for bacterial versus TB versus fungal pneumonia. Imaging also shows mild splenomegaly and lymphadenopathy. IMPRESSION: This is a 55-year-old gentleman with Hx alcoholic liver cirhosis status post COVID-19 pneumonia Treated with 5 days IV remdesivir and decadron discharged on September 04 who is readmitted now with worsening cough, shortness of breath without wheezing with evidence of possibly necrotizing pneumonia or TB or fungal etiologies. MEDICATIONS: - Insulin sliding scale - Enoxaparin 40 mg subcu daily - Vancomycin 1 gm IV every 8 hours - Zosyn 3.375 gm IV every 6 hours - Aspirin 325 mg by mouth daily - Atorvastatin 80 mg by mouth daily - Coreg 12.5 mg by mouth twice a day - Fluoxetine 20 mg by mouth daily - Folic acid 1 mg by mouth daily - Omeprazole 40 mg by mouth daily - Tamsulosin 0.4 mg by mouth twice a day - Multivitamin one tablet daily - Nicotine one patch daily - Triamcinolone to rash - Thiamine 100 mg by mouth twice a day - Hydroxyzine 50 mg by mouth twice a day as needed - Lorazepam 2 mg as needed - Seroquel 100 mg by mouth once daily at bedtime ALLERGIES: HMG-CoA RECEPTOR, REDUCTASE INHIBITOR, HYDROCODONE, NIACIN and PREDNISONE. Alcohol level is 0.22 on admission, white count 5.8, hemoglobin 10.1, hematocrit 31.3, platelets 87, 77% neutrophils, 12% lymphocytes, 7.7 monocytes. Procalcitonin less than 0.5. CRP 3.74. AST 16, ALT 16, alkaline phosphatase 96. LDH 160, CPK 28. PLAN: Continue with IV Vancomycin and Zosyn for presumptive pneumonia superimposed post-COVID with evidence of cavitation which could suggest MRSA, anaerobic infection , fungal versus tuberculosis infection. Obtain TB GOLD Aspergillus galactomanan fungitell Airborne isolation Procalcitonin Sputum Gm stain culture, Fungal smear and culture HIV and hepatitis C MTDD
--- NOTE | 2020-09-18 12:23 | ECHO ---
DATE OF PROCEDURE: 09/15/2020 Age: 55 Gender: Male Height: 173 cm Weight: 91 kg REFERRING PHYSICIAN: Radha Johnson M.D. INDICATION: Fever. MEASUREMENTS: 2D Measurements: Intraventricular septum 1.14 cm Posterior wall 1.14 cm Left ventricle diastole 5.4 cm Aortic root 2.8 cm Left atrial volume index 21 cm Left atrium 3.9 cm Inferior vena cava 2.0 cm (more than 50% respiratory variation) Doppler Measurements: No aortic stenosis No aortic regurgitation Aortic valve velocity 139 cm/s LVOT velocity 153 cm/s LVOT VTI 32.7 cm No mitral regurgitation No mitral stenosis Mitral E velocity 85.3 cm/s Mitral A velocity 59.6 cm/s Mitral deceleration time 153 msec Trace tricuspid regurgitation No pulmonic regurgitation Pulmonary artery acceleration time 164 msec suggesting PA systolic pressure not elevated. MITRAL ANNULAR TISSUE DOPPLER E prime septal 8.1 cm/s, E prime lateral 11.7 cm/s DESCRIPTION: Rhythm was sinus. Image quality was fair. No pericardial effusion. This was a 2D, M-mode, color flow Doppler, and pulsed wave Doppler examination including mitral annular tissue Doppler. CONCLUSIONS: 1. No vegetations observed. 2. Normal left ventricle internal dimensions and wall thickness. 3. Normal regional LV wall motion and wall thickening. Normal LV systolic function. LVEF 65% by visual estimate. Normal LV diastolic function. 4. Mild-moderate mitral annular calcification. No mitral regurgitation. 5. Otherwise normal appearing echocardiogram Doppler findings. MTDD
[2020-09-18 20:08] LABS: BODY FLUID CULTURE Not indicated. (.); LEGIONELLA ANTIGEN URINE Negative (Negative); ORGANISM ID Not indicated. (.); SPECIMEN SOURCE Urine (.); URINE STREP PNEUMONIAE ANTIGEN Negative (Negative)
== END 2020-09-16 15:48 | disposition home or self-care (01) | DRG 139 ==
LOC: M ED 23:28 → EEVIPCON 09-13 03:24 → M ED INP 09-13 03:24 → M ICU 09-13 11:01 → M 4MAIN 09-14 08:14
PROVIDERS: ADMIT Family Medicine; ATTEND Internal Medicine
DX: J18.8 Other pneumonia, unspecified organism (principal); J90 Pleural effusion, not elsewhere classified; F11.20 Opioid dependence, uncomplicated; F32.9 Major depressive disorder, single episode, unspecified; B94.8 Sequelae of other specified infectious and parasitic diseases; E11.9 Type 2 diabetes mellitus without complications; F10.10 Alcohol abuse, uncomplicated; N40.0 Benign prostatic hyperplasia without lower urinary tract symptoms; K21.9 Gastro-esophageal reflux disease without esophagitis; L30.9 Dermatitis, unspecified; Z66 Do not resuscitate; Z79.82 Long term (current) use of aspirin; Z79.899 Other long term (current) drug therapy; Z88.5 Allergy status to narcotic agent; Z88.8 Allergy status to other drugs, medicaments and biological substances; Z86.73 Personal history of transient ischemic attack (TIA), and cerebral infarction without residual deficits; F17.200 Nicotine dependence, unspecified, uncomplicated; F17.210 Nicotine dependence, cigarettes, uncomplicated

== ENCOUNTER 2020-09-20 16:03 | Emergency (ER) | payer MEDICAID, OTHER ==
[~2020-09-20] VITALS: Ht 172.7 cm; Wt 86.4 kg
[~2020-09-20 16:03] MED LIST changes: +DOXY100T PO; +FURO40TA2 PO; +LISI10TA22 PO; -LISI10TA4 PO; +QUET100T2 PO
--- OUTSIDE RECORDS SUMMARY | 2020-09-20 16:10 | CCD ---
Author Author [facility] Organization [facility] Address Unknown Phone Unavailable Care Team Providers Care Porcelain Finish Sprayer Name Role Phone ALIA, SONAM PA Unavailable Unavailable ALIA, SONAM [...] Unavailable TODD ELKINS DO Unavailable Unavailable TRI BRENNAN, MSN Unavailable Unavailab TRI Hilario, MSN Unavailable Unavailab le BRENNAN, TRI ANNE-MARIE POLYSOM TECH-C, MSN Unavailable Unavailab le BRENNAN, TRI ANNE-MARIE POLYSOM TECH-C, MSN Unavailable Unavailab le BRENNAN, TRI ANNE-MARIE POLYSOM TECH-C, MSN Unavailable Unavailab le BRENNAN, TRI ANNE-MARIE POLYSOM TECH-C, MSN Unavailable Unavailab le BRENNAN, TRI ANNE-MARIE POLYSOM TECH-C, MSN Unavailable Unavailab le BRENNAN, TRI ANNE-MARIE POLYSOM TECH-C, MSN Unavailable Unavailab le BRENNAN, TRI ANNE-MARIE POLYSOM TECH-C, MSN Unavailable Unavailab le BRENNAN, TRI ANNE-MARIE POLYSOM TECH-C, MSN Unavailable Unavailab le BRENNAN, TRI ANNE-MARIE POLYSOM TECH-C, MSN Unavailable Unavailab le BRENNAN, TRI ANNE-MARIE POLYSOM TECH-C, MSN Unavailable Unavailab le BRENNAN, TRI ANNE-MARIE POLYSOM TECH-C, MSN Unavailable Unavailab le BRENNAN, TRI ANNE-MARIE POLYSOM TECH-C, MSN Unavailable Unavailab le BRENNAN, TRI ANNE-MARIE POLYSOM TECH-C, MSN Unavailable Unavailab le BRENNAN, TRI ANNE-MARIE POLYSOM TECH-C, MSN Unavailable Unavailab le BRENNAN, TRI ANNE-MARIE POLYSOM TECH-C, MSN Unavailable Unavailab le BRENNAN, TRI ANNE-MARIE POLYSOM TECH-C, MSN Unavailable Unavailab le BRENNAN, TRI ANNE-MARIE POLYSOM TECH-C, MSN Unavailable Unavailab le BRENNAN, TRI ANNE-MARIE POLYSOM TECH-C, MSN Unavailable Unavailab le BRENNAN, TRI ANNE-MARIE POLYSOM TECH-C, MSN Unavailable Unavailab le BRENNAN, TRI ANNE-MARIE POLYSOM TECH-C, MSN Unavailable Unavailab le BRENNAN, TRI ANNE-MARIE POLYSOM TECH-C, MSN Unavailable Unavailab le BRENNAN, TRI ANNE-MARIE POLYSOM TECH-C, MSN Unavailable Unavailab le BRENNAN, TRI ANNE-MARIE POLYSOM TECH-C, MSN Unavailable Unavailab le BRENNAN, TRI ANNE-MARIE POLYSOM TECH-C, MSN Unavailable Unavailab le BRENNAN, TRI ANNE-MARIE POLYSOM TECH-C, MSN Unavailable Unavailab le BRENNAN, TRI ANNE-MARIE POLYSOM TECH-C, MSN Unavailable Unavailab le BRENNAN, TRI ANNE-MARIE POLYSOM TECH-C, MSN Unavailable Unavailab le BRENNAN, TRI ANNE-MARIE POLYSOM TECH-C, MSN Unavailable Unavailab le BRENNAN, TRI ANNE-MARIE POLYSOM TECH-C, MSN Unavailable Unavailab le BRENNAN, TRI ANNE-MARIE POLYSOM TECH-C, MSN Unavailable Unavailab le BRENNAN, TRI ANNE-MARIE POLYSOM TECH-C, MSN Unavailable Unavailab le BRENNAN, TRI ANNE-MARIE POLYSOM TECH-C, MSN Unavailable Unavailab le BRENNAN, TRI ANNE-MARIE POLYSOM TECH-C, MSN Unavailable Unavailab le BRENNAN, TRI ANNE-MARIE POLYSOM TECH-C, MSN Unavailable Unavailab le BRENNAN, TRI ANNE-MARIE POLYSOM TECH-C, MSN Unavailable Unavailab le BRENNAN, TRI ANNE-MARIE POLYSOM TECH-C, MSN Unavailable Unavailab le BRENNAN, TRI ANNE-MARIE POLYSOM TECH-C, MSN Unavailable Unavailab le BRENNAN, TRI ANNE-MARIE POLYSOM TECH-C, MSN Unavailable Unavailab le BRENNAN, TRI ANNE-MARIE POLYSOM TECH-C, MSN Unavailable Unavailab le BRENNAN, TRI ANNE-MARIE POLYSOM TECH-C, MSN Unavailable Unavailab le Evergreen, Orthodoxy Unavailable Unavailable Evergreen, Orthodoxy Unavailable Unavailable Kat, Orthodoxy Unavailable Unavailable Evergreen, Orthodoxy Unavailable Unavailable Evergreen, Orthodoxy Unavailable Unavailable MITALI, BILLY EDITA PA Unavailable [...] Unavailable MITALI, BILLY EDITA PA Unavailable Unavailable ALEKSIEALINA SANDERS MD Unavailable Unavailable ALEALINA JORDAN MD Unavailable Unavailable ALEALINA JORDAN MD Unavailable Unavailable ALINA NORMAN MD Unavailable Unavailable SHAHRAMKurt LOPEZ MD Unavailable Unavailable SHAHRAMKurt MD Unavailable Unavailable SHAHRAMKurt MD Unavailable Unavailable SHAHRAM S GRETA HANDY Unavailable Unavailable SHAHRAMKurt MD Unavailable Unavailable SHAHRAMKurt MD Unavailable Unavailable SHAHRAMKurt MD Unavailable Unavailable SHAHRAMKurt MD Unavailable Unavailable SHAHRAMKurt MD Unavailable Unavailable [...] Unavailable SHAHRAMKurt LOPEZ MD Unavailable Unavailable SHAHRAMKurt LOEPZ MD Unavailable Unavailable SHAHRAMKurt LOPEZ MD Unavailable Unavailable SHAHRAMKurt LOPEZ MD Unavailable Unavailable SHAHRAMKurt LOPEZ MD Unavailable Unavailable SHAHRAMKurt LOPEZ MD Unavailable Unavailable SHAHRAMKurt LOPEZ MD Unavailable Unavailable SHAHRAMKurt LOPEZ MD Unavailable Unavailable SHAHRAM, S GRETA HANDY Unavailable Unavailable SHAHRAM S GRETA HANDY Unavailable Unavailable SHAHRAM, S GRETA HANDY Unavailable Unavailable SHAHRAM S GRETA HANDY Unavailable Unavailable SHAHRAMKurt MD Unavailable Unavailable SHAHRAM S GRETA HANDY Unavailable Unavailable SHAHRAM S GRETA HANDY Unavailable Unavailable SHAHRAM S GRETA HANDY Unavailable Unavailable SHAHRAM S GRETA HANDY Unavailable Unavailable SHAHRAM S GRETA HANDY Unavailable Unavailable SHAHRAM S GRETA HANDY Unavailable Unavailable SHAHRAMKurt MD Unavailable Unavailable SHAHRAMKurt MD Unavailable Unavailable SHAHRAMKurt MD Unavailable Unavailable SHAHRAMKurt MD Unavailable Unavailable SHAHRAM S GRETA MD Unavailable Unavailable SHAHRAM S GRETA HANDY Unavailable Unavailable SHAHRAM S GRETA HANDY Unavailable Unavailable SHAHRAM S GRETA HANDY Unavailable Unavailable SHAHRAM S GRETA HANDY Unavailable Unavailable SHAHRAM, S GRETA MD Unavailable Unavailable Kurt OMALLEY MD Unavailable [...] BILLY EDITA PA Unavailable Unavailable MITALI, BILLY EDTIA PA Unavailable Unavailable MITALI, BILLY EDITA PA [...] Unavailable SYMENOW, G CHRISTOPHER PA Unavailable Unavailable DOROTHY, L NORMA PA [...] L NORMA PA Unavailable Unavailable Edick, Whitney NEUROPATHOLOGIST Unavailable Unavailable Edick, Whitney NEUROPATHOLOGIST Unavailable Unavailable Edick, Whitney NEUROPATHOLOGIST Unavailable Unavailable Edick, Whitney NEUROPATHOLOGIST Unavailable Unavailable Edick, Whitney NEUROPATHOLOGIST Unavailable Unavailable Edick, Whitney NEUROPATHOLOGIST Unavailable Unavailable Edick, Whitney NEUROPATHOLOGIST Unavailable Unavailable Edick, Whitney NEUROPATHOLOGIST Unavailable Unavailable Edick, Whitney NEUROPATHOLOGIST Unavailable Unavailable Edick, Whitney NEUROPATHOLOGIST Unavailable Unavailable Edick, Whitney NEUROPATHOLOGIST Unavailable Unavailable Edick, Whitney NEUROPATHOLOGIST Unavailable Unavailable BRENNAN, TRI ANNE-MARIE POLYSOM TECH-C, MSN Unavailable Unavailab le BRENNAN, TRI ANNE-MARIE POLYSOM TECH-C, MSN Unavailable Unavailab le BRENNAN, TRI ANNE-MARIE POLYSOM TECH-C, MSN Unavailable Unavailab le BRENNAN, TRI ANNE-MARIE POLYSOM TECH-C, MSN Unavailable Unavailab le BRENNAN, TRI ANNE-MARIE POLYSOM TECH-C, MSN Unavailable Unavailab le BRENNAN, TRI ANNE-MARIE POLYSOM TECH-C, MSN Unavailable Unavailab le BRENNAN, TRI ANNE-MARIE POLYSOM TECH-C, MSN Unavailable Unavailab le BRENNAN, TRI ANNE-MARIE POLYSOM TECH-C, MSN Unavailable Unavailab le BRENNAN, TRI ANNE-MARIE POLYSOM TECH-C, MSN Unavailable Unavailab le BRENNAN, TRI ANNE-MARIE POLYSOM TECH-C, MSN Unavailable Unavailab le BRENNAN, TRI ANNE-MARIE POLYSOM TECH-C, MSN Unavailable Unavailab le BRENNAN, TRI ANNE-MARIE POLYSOM TECH-C, MSN Unavailable Unavailab le BRENNAN, TRI ANNE-MARIE POLYSOM TECH-C, MSN Unavailable Unavailab le BRENNAN, TRI ANNE-MARIE POLYSOM TECH-C, MSN Unavailable Unavailab le BRENNAN, TRI ANNE-MARIE POLYSOM TECH-C, MSN Unavailable Unavailab le BRENNAN, TRI ANNE-MARIE POLYSOM TECH-C, MSN Unavailable Unavailab le BRENNAN, TRI ANNE-MARIE POLYSOM TECH-C, MSN Unavailable Unavailab le BRENNAN, TRI ANNE-MARIE POLYSOM TECH-C, MSN Unavailable Unavailab le BRENNAN, TRI ANNE-MARIE POLYSOM TECH-C, MSN Unavailable Unavailab le BRENNAN, TRI ANNE-MARIE POLYSOM TECH-C, MSN Unavailable Unavailab le BRENNAN, TRI ANNE-MARIE POLYSOM TECH-C, MSN Unavailable Unavailab le BRENNAN, TRI ANNE-MARIE POLYSOM TECH-C, MSN Unavailable Unavailab le BRENNAN, TRI ANNE-MARIE POLYSOM TECH-C, MSN Unavailable Unavailab le BRENNAN, TRI ANNE-MARIE POLYSOM TECH-C, MSN Unavailable Unavailab le BRENNAN, TRI ANNE-MARIE POLYSOM TECH-C, MSN Unavailable Unavailab le BRENNAN, TRI ANNE-MARIE POLYSOM TECH-C, MSN Unavailable Unavailab le BRENNAN, TRI ANNE-MARIE POLYSOM TECH-C, MSN Unavailable Unavailab le BRENNAN, TRI ANNE-MARIE POLYSOM TECH-C, MSN Unavailable Unavailab le BRENNAN, TRI ANNE-MARIE POLYSOM TECH-C, MSN Unavailable Unavailab le BRENNAN, TRI ANNE-MARIE POLYSOM TECH-C, MSN Unavailable Unavailab le BRENNAN, TRI ANNE-MARIE POLYSOM TECH-C, MSN Unavailable Unavailab le BRENNAN, TRI ANNE-MARIE POLYSOM TECH-C, MSN Unavailable Unavailab le BRENNAN, TRI ANNE-MARIE POLYSOM TECH-C, MSN Unavailable Unavailab le BRENNAN, TRI ANNE-MARIE POLYSOM TECH-C, MSN Unavailable Unavailab le BRENNAN, TRI ANNE-MARIE POLYSOM TECH-C, MSN Unavailable Unavailab le BRENNAN, TRI ANNE-MARIE POLYSOM TECH-C, MSN Unavailable Unavailab le BRENNAN, TRI ANNE-MARIE POLYSOM TECH-C, MSN Unavailable Unavailab le BRENNAN, TRI ANNE-MARIE POLYSOM TECH-C, MSN Unavailable Unavailab le BRENNAN, TRI ANNE-MARIE POLYSOM TECH-C, MSN Unavailable Unavailab le BRENNAN, TRI ANNE-MARIE POLYSOM TECH-C, MSN Unavailable Unavailab le BRENNAN, TRIKathrine QUEENA POLYSOM TECH-C, MSN Unavailable Unavailab le MIKA, TRI QUEENA POLYSOM TECH-C, MSN Unavailable Unavailab Melissa Cortez MD Unavailable Unavailable Melissa BAXTER MD Unavailable Unavailable MARIAMMelissa MD Unavailable Unavailable ADAMS, VALERIY MIKA RPA-C Unavailable Unavailable ADAMS, VALERIY MIKA RPA-C Unavailable Unavailable ADAMS, VALERIY MIKA RPA-C Unavailable Unavailable ADAMS, VALERIY MIKA RPA-C Unavailable Unavailable DAAMS, VALERIY MIKA RPA-C Unavailable Unavailable ADAMS, VALERIY [...] Unavailable ADAMS, VALERIY MIKA RPA-C Unavailable Unavailable AMZUTA, G KASSIE MD Unavailable [...] Unavailable AMZUTA, G KASSIE MD Unavailable Unavailable ESTHER PACHECO . Unavailable Unavailable Koby KAYE PA Unavailable Unavailable Koby KAYE PA Unavailable Unavailable VARGAS, Koby RAI PA Unavailable Unavailable VARGAS, Koby RAI PA Unavailable Unavailable KAYE, Koby RAI PA Unavailable Unavailable KAYE, Koby RAI PA Unavailable Unavailable KAYE, W FREDI PA [...] PA Unavailable Unavailable Katarzyna Haas MD Unavailable [email or web address] Katarzyna Haas MD Unavailable [email or web address] Katarzyna Haas MD Unavailable [email or web address] Katarzyna Haas MD Unavailable [email or web address] Katarzyna Haas MD Unavailable [email or web address] Katarzyna Haas MD Unavailable [email or web address] Katarzyna Haas MD Unavailable [email or web address] Gisselle Segura MD Unavailable Unavailable [...] Unavailable Colton, Gisselle Cade MD Unavailable Unavailable ColtonGisselle aldana MD Unavailable Unavailable Colton, Gisselle Cade MD Unavailable Unavailable SUNG, BROOKS DO Unavailable [...] protected by Article 27-F of the [facility] Public Health law. If you continue you may have access to information: Regarding HIV / AIDS; Provided by facilities licensed or operated by the [facility] Office of Mental Health; or Provided by the [facility] Office for People With Developmental Disabilities. If such information is present, then the following [facility] mandated warning applies: This information [...] law may result in a fine or long term sentence or both. A general authorization for the release of medical or other information is NOT sufficient authorization for further disc losure. Family History Family Member Name Family Member Gender Family Member Status Date o f Status Description Data Source(s) Unknown Male Problem [facility] Encounters Encounter Providers Location Date Indications Data Source(s ) Inpatient Attender: TODD ELKINS DOAttender : TODD ELKINS DOAttender: AMADO BAXTER MDAttender: AMADO BAXTER MDAdmitter: AMADO BAXTER MD [id number] 08/31/2020 03:32:00 AM [facility] - 09/04/2020 01:30:00 PM [facility] ospital Patient discharged. Emergency Attender: NORMA MILLER EMERGENCY ROOM-ER 03:59:00 PM [facility] - 08/30/2020 11:50:00 PM [facility] Patient discharged. Outpatient Attender: NORMA DE LA CRUZ PAConsultant: [facility] [id number] 08/30/2020 03:35:00 PM [facility] Outpatient Attender: ESTHER Sullivan [id number] 07/06/2020 02:28:[address] [facility] Outpatient Attender: EDITA JASMINE PAConsultant: [facility] [id number] 07/06/2020 06:41:00 AM [facility] Inpatient Attender: Katarzyna Lara DAttender: KASSIE JONASLUCIE MDAttender: ALINA NORMAN MDAdmitter: KASSIE MCDANIELLUCIE MDReferrer: ALINA NORMAN MD [id number] 07/06/2020 12:00:00 AM EST - 07/10/2020 04:00:00 PM ES T Noninfective gastroenteritis and colitis, unspecified [facility] Noninfective gastroenteritis and colitis , unspecified Patient discharged. Emergency Attender: EDITA MILLER EMERGENCY ROOM-ER 07/05/2020 08:45:00 PM EST - 07/06/2020 12:35:00 AM [facility] Patient discharged. Outpatient Attender: ADDISON JOY 08/09/2019 01:11:00 PM ES T [facility] 08/09/2019 12:00:00 AM EST eCW1 ([facility]) [facility] 08/03/2019 12:00:00 AM EST eCW1 ([facility]) [place] [facility] 08/02/2019 12:00:00 AM EST eCW1 ([facility]) [facility] 08/02/2019 12:00:00 AM EST eCW1 ([facility]) [place] [facility] 08/02/2019 12:00:00 AM EST eCW1 ([facility]) [facility] ENTER 07/28/2019 12:00:00 AM EST eCW1 ([facility]) Emergency Attender: EDITA Wintererrer: ANNE-MARIE MCDERMOTT, MSN 07/24/2019 05:33:00 PM EST - 07/24/2019 06:15:00 PM [facility] Patient discharged. Outpatient Attender: EDITA JASMINE PAConsultant: [facility] [id number] 07/21/2019 03:15:00 PM [facility] Emergency Attender: EDITA Valentiner: Damaso MCDERMOTT, MSN EMERGENCY ROOM-ER 07/21/2019 02:23:00 PM EST - 07/21/2019 03:58:00 PM [facility] Patient discharged. Outpatient Attender: JACOB PEDERSENConsumaría tant: [facility] [id number] 07/01/2019 11:00:00 AM EDT [facility] Outpatient Attender: JACOB PEDERSEN 07/01/2019 1 0:52:00 AM [facility] Outpatient Attender: ADDISON JOY 06/28/2019 12:50:00 PM [facility] Outpatient Attender: JACOB PEDERSEN 05/11/2019 0 1:56:00 PM [facility] Outpatient Attender: ADDISON JOY 05/10/2019 01:15:00 PM [facility] Emergency Attender: UCHE Wintererrer : JACOB PEDERSEN EMERGENCY ROOM-ER 04/21/2019 09:35:00 AM EDT - 04/21/2019 02:56:00 PM [facility] Patient discharged. Outpatient Attender: ADDISON JOY 03/29/2019 09:12:00 AM [facility] Outpatient Attender: JACOB PEDERSENReferr er: ANNE-MARIE MCDERMOTT, JACOB 03/19/2019 09:00:00 AM [facility] Outpatient Attender: JACOB PEDERSENReferr er: JACOB PEDERSEN [facility] 03/18/2019 01:09:00 PM EDT - 03/18/2019 01:09:00 PM [facility] Outpatient Attender: MIKA LUNDCReferrer: JACOB OTTO EMERGENCY ROOM-LAB REF 03/05/2019 04:18:00 PM EDT - 03/05/2019 04:18:00 PM [facility] Outpatient Attender: MIKA HILL 03/05/2019 02:50:00 PM [facility] Emergency Attender: EDITA JASMINE PAReferrer: JACOB MATT EMERGENCY ROOM-ER 03/03/2019 05:24:00 PM EDT - 03/03/2019 05:50:00 PM [facility] Emergency Attender: EDITA GALLARDOeferrer: JACOB MATT EMERGENCY ROOM-ER 03/02/2019 06:19:00 PM EDT - 03/02/2019 08:33:00 PM [facility] Outpatient Attender: JACOB PEDERSEN 02/05/2019 0 2:40:00 PM [facility] Outpatient Attender: Whitney Alicea NP 12/11/2018 02:30:00 P [facility] Outpatient Attender: Whitney Alicea NP 11/13/2018 02:20:00 [facility] Emergency Attender: YOSELIN OWENSReferrer: JCAOB LEHMAN EMERGENCY ROOM-ER 10/27/2018 12:47:00 PM [facility] - 10/27/2018 10:50:00 PM [facility] Outpatient Attender: Whitney Alicea NP 10/16/2018 07:53:00 [facility] Outpatient Attender: ANNE-MARIE MCDERMOTT, [facility]NConsul tant: [facility] 08/04/2018 09:30:00 AM [facility] Outpatient Attender: GRETA OMALLEY MDReferrer: ANNE-MARIE MCDERMOTT, MSN 03/24/2018 01:00:00 PM EDT - 03/24/2018 01:00:00 PM [facility] Outpatient Attender: Rayo Segura MDReferrer: JACOB MARTINEZ 12/16/2017 07:42:00 AM EDT - 12/16/2017 07:42:00 AM [facility] Emergency Attender: SONAM Wintererrer: JACOB LEHMAN EMERGENCY ROOM-ER 04/30/2017 11:36:00 AM EDT - 04/30/2017 03:25:00 PM [facility] Outpatient Attender: ANNE-MARIE MCDERMOTT MSNReferr er: JACOB PEDERSEN EMERGENCY ROOM-[facility] 04/02/2017 08:14:00 AM EDT - 04/02/2017 08:14:00 AM [facility] Outpatient Attender: Rayo Segura MD 11/05/2016 11:12: 00 AM [facility] Emergency Attender: Kalia Stephens EMERGENCY ROOM-ER 11/01 04:58:00 PM EDT - 11/28/2014 05:50:00 PM [facility] Emergency Attender: FREDI MILLER 10:23:00 AM EDT - 02/12/2014 11:25:00 AM [facility] Medications Medication Brand Name Start Date Product Form Dose Route Admi nistrative Instructions Pharmacy Instructions Status Indications Reaction Description Data Source(s) Alprazolam 0.25 MG Oral Tablet alprazolam (XANAX) tabl et 0.5 mg alprazolam (XANAX) tablet 0.5 mg 07/10/2020 09:30:00 AM EST 0.5 mg Oral completed 0.5 mg, Oral, Once, Fri07/10/20 at 0930, For 1 dose [facility] Medication administered onsite 0.4 ML Enoxaparin sodium 100 MG/ML Prefi lled Syringe enoxaparin sodium (LOVENOX) injection 40 mg enoxaparin sodium (LOVENOX) injection 40 mg 07/10/2020 09:00:00 AM EST 40 mg Subcutaneous active 40 mg, Subcutaneous, Daily Standard, First dose on Fri07/10/20 at 0900, For [address] [facility] Medication administered onsite potassium phosphate 155 [...] and potassium 45 mg (1.1 mEq)
[facility] Medication administered onsite magnesium sulfate in dextrose 5 % infusion (premix) 1 g [id number] 07/10/2020 08:00:00 AM EST 1 g Intravenous completed 1 g, Intravenous, Administer over 60 Minutes, Once, Fri07/10/20 at 0800, For [address] [facility] Medication administered onsite potassium phosphate 155 [...] and potassium 45 mg (1.1 mEq)
[facility] Medication administered onsite potassium phosphate 155 MG / Sodium Phos phate, Dibasic 852 MG / Sodium Phosphate, Monobasic 130 MG Oral Tablet K Phos Morton-Sod Phos Di & Morton [phone] MG Oral Tablet (K PHOS NEUTRAL) K Phos Morton-Sod Phos Di & Morton [phone] MG Oral Tablet (K PHOS NEUTRAL) 07/10/2020 12:00:00 AM EST 250 mg Oral active Take 1 tablet by juliann th Two Times Daily for [address] [facility] Magnesium Oxide 400 MG Oral Tablet Magne sium Oxide 400 (241.3 Mg) MG Oral Tablet (MAG-OX) Magnesium Oxide 400 (241.3 Mg) MG Oral Tablet (MAG-OX) 07/10/2020 12:00:00 AM EST 400 mg Oral active Take 1 tablet by mouth daily for [address] [facility] pantoprazole 40 MG Delayed Release Oral Tablet Pantoprazole Sodium 40 MG Oral Tablet Delayed Release (PROTONIX) Pantoprazole Sodium 40 MG Oral Tablet De layed Release (PROTONIX) 07/10/2020 12:00:00 AM EST 40 mg Oral active Take 1 tablet by mouth Two Times Daily [facility] Hydroxyzine Hydrochloride 25 MG Oral Tab let hydrOXYzine HCl 25 MG Oral Tablet (ATARAX) hydrOXYzine HCl 25 MG Oral Tablet (ATARAX) 07/10/2020 12:00: 00 AM EST 25 mg Oral active Take 1 tablet by mouth every 6 (six) hours as needed for Anxiety [facility] maalox/lidocaine/diphenhydrAMINE 1:1:1 SWISH & SWAL oral [facility] 07/10/2020 12:00:00 AM EST 10 mL Swish & Spit active Swish and spit 10 mLs Four times daily as needed (throat pain)Pharmacy compound: Maalox, lidocaine viscous 2 %, Benadryl 12.5 mg/[address] [facility] Folic Acid 1 MG Oral Tablet Folic Acid 1 MG Oral Table t (FOLVITE) Folic Acid 1 MG Oral Tablet (FOLVITE) 07/10/2020 12:00:00 AM EST 1 mg Oral active Take 1 tablet by mouth daily [facility] Thiamine 100 MG Oral Tablet Thiamine HCl 100 MG Oral T ablet (B-1) Thiamine HCl 100 MG Oral Tablet (B-1) 07/10/2020 12:00:00 AM EST 100 mg Oral active Take [facility] MG Oral Tablet Lisinopril 10 MG Oral Tab let (ZESTRIL) Lisinopril 10 MG Oral Tablet (ZESTRIL) 07/10/2020 12:00:00 AM EST 10 mg Oral active Take 1 tablet by mouth daily [facility] vancomycin 50 mg/mL PO SOLN oral solution [id number] 07/10/2020 12:00:00 AM EST 125 mg Oral active Take 2.5 mLs by mouth every 6 (six) hours for [address] [facility] Aspirin 81 MG Delayed Release Oral Table t Aspirin 81 MG Oral Tablet Delayed Release Aspirin 81 MG Oral Tablet Delayed Release 07/10/2020 12:00:00 AM EST 81 mg Oral active Take 1 tablet by mouth reva mckeon [facility] pantoprazole 40 MG Delayed Release Oral Tablet pantoprazole (PROTONIX) EC tablet 40 mg pantoprazole (PROTONIX) EC tablet 40 mg 07/09/2020 09:00:[address] 40 mg Oral active 40 mg, Ora l, 2 Times Daily, First dose on 07/09/20 at 2100, For 30 days
Do not crush or chew
[facility] Medication administered onsite Monobasic potassium phosphate [...] and potassium 144 mg (3.7 mEq)
[facility] Medication administered onsite Alprazolam 0.25 MG Oral Tablet alprazolam (XANAX) tabl et 0.5 mg alprazolam (XANAX) tablet 0.5 mg 07/09/2020 03:15:00 PM EST 0.5 mg Oral completed 0.5 mg, Oral, Once, 07/09/20 at 1515, For 1 dose [facility] Medication administered onsite Hydroxyzine Hydrochloride 25 MG Oral Tablet hydrOXYzin e (ATARAX) tablet 25 mg hydrOXYzine (ATARAX) tablet 25 mg 07/09/2020 09:00:00 AM EST 25 mg Oral active 25 mg, Oral, Every 6 hours PRN, Anxiety, Starting 07/09/20 at 0900, For [address] [facility] Medication administered onsite 50 ML Magnesium Sulfate 40 MG/ML Injecti on magnesium sulfate infusion 2 g/50 mL (premix) magnesium sulfate infusion 2 g/50 mL (premix) 07/09/20 20 05:45:00 AM EST 2 g Intravenous completed 2 g, Intravenous, Administer over 60 Minutes, Once, 07/09/20 at 0545, For [address] [facility] Medication administered onsite potassium chloride 20 mEq in 100 mL IVPB (premix) [id number] 07/09/2020 05:00:00 AM EST 20 meq Intravenous completed 20 mEq, Intravenous, Administer over 60 Minutes, Every 1 hour, First dose on 07/09/20 at 0500, For [address] [facility] Medication administered onsite Diazepam 5 MG [...] CIWA score. Assess once patient awakens.
[facility] Medication administered onsite sodium phosphate infusion [...] hypophosphatemia.
For central line use only.
[facility] Medication administered onsite potassium phosphate infusion 6 mmol/100 mL (premix) 07/08/2020 01:45:00 PM EST 6 mmol Intravenous completed 6 mmol, Intravenous, at 25 mL/hr, Once, 07/08/20 at 1345, For 1 dose
Slower infusion rates (e.g. over 4 hours) are recommended in patients with renal impairment and/or less severe hypophosphatemia. Product contains 8.8 mEq of potassium.
[facility] Medication administered onsite maalox/lidocaine/diphenhydrAMINE (RADIAT ION MIXTURE) 1:1:1 oral suspension 10 mL 07/08/2020 09:45:00 AM EST 10 mL Swish & Spit acti ve 10 mL, Swish & Spit, Four Times Daily-PRN, throat pain, Starting 07/08/20 at 0945, For [address] [facility] Medication administered onsite Hydroxyzine Hydrochloride 25 MG Oral Tablet hydrOXYzin e (ATARAX) tablet 25 mg hydrOXYzine (ATARAX) tablet 25 mg 07/08/2020 09:36:17 AM EST 25 mg Oral aborted 25 mg, Oral, Every 6 hours PRN, Anxiety, Starting 07/08/20 at 0936, For [address] [facility] Medication administered onsite 24 HR Nicotine 0.292 MG/HR Transdermal P atch nicotine (NICODERM CQ) 7 MG/24HR 1 patch nicotine (NICODERM CQ) 7 MG/24HR 1 patch 07/08/2020 09:00:00 AM EST 1 {patch} Transdermal active 1 patch, Transdermal, Administer over 24 Hours, Daily Standard, First dose on 07/08/20 at 0900, For [address] [facility] Medication administered onsite potassium phosphate 155 [...] and potassium 45 mg (1.1 mEq)
[facility] Medication administered onsite 1 ML Lorazepam 2 MG/ML Injection LORazepam (ATIVAN) in jection 0.5 mg LORazepam (ATIVAN) injection 0.5 mg 07/08/2020 06:15:00 AM EST 0.5 mg Intrave nous completed 0.5 mg, Intravenous, Once, Sat 1 09/07/19 at 0615, For [address] [facility] Medication administered onsite potassium phosphate infusion 6 mmol/100 mL (premix) 07/08/2020 04:00:00 AM EST 6 mmol Intravenous completed 6 mmol, Intravenous, at 25 mL/hr, Once, 07/08/20 at 0400, For 1 dose
Slower infusion rates (e.g. over 4 hours) are recommended in patients with renal impairment and/or less severe hypophosphatemia. Product contains 8.8 mEq of potassium.
[facility] Medication administered onsite sodium phosphate infusion 6 mmol/100 mL (premix) 07/07 09:30:00 PM EST 6 mmol Intravenous completed 6 mmol, Intravenous, at 25 mL/hr, Once, 07/07/20 at 2130, For 1 dose
Slower infusion rate (e.g. over 4 to 6 hours) are recommended in patients with renal impairment and/or less severe hypophosp hatemia.
[facility] Medication administered onsite Nicotine 2 MG Chewing Gum nicotine polacrilex (NICORET TE) gum 2 mg nicotine polacrilex (NICORETTE) gum 2 mg 07/07/2020 03:18:13 PM EST 2 mg O ral active 2 mg, Oral, Every 2 hours PRN, Smoking cessation, Starting Fri07/07/20 at 1518, For [address] [facility] Medication administered onsite maalox/lidocaine/diphenhydrAMINE (RADIAT ION MIXTURE) 1:1:1 oral suspension 10 mL 07/07/2020 03:17:47 PM EST 10 mL Swish & Spit abor tania 10 mL, Swish & Spit, 2 Times Daily PRN, throat pain, Starting Fri07/07/20 at 1517, For [address] [facility] Medication administered onsite Thiamine 100 MG Oral Tablet thiamine (B-1) tablet 100 mg thiamine (B-1) tablet 100 mg 07/07/2020 02:45:00 PM EST 100 mg Oral active 100 mg, Oral, Daily Standard, First dose on Fri07/07/20 at 1445, For [address] [facility] Medication administered onsite Folic Acid 1 MG Oral Tablet folic acid (FOLVITE) table t 1 mg folic acid (FOLVITE) tablet 1 mg 07/07/2020 02:45:00 PM EST 1 mg Oral active 1 mg, Oral, Daily Standard, First dose on Fri07/07/20 at 1445, For [address] [facility] Medication administered onsite potassium phosphate 155 [...] and potassium 45 mg (1.1 mEq)
[facility] Medication administered onsite vancomycin (VANCOCIN) 50 mg/mL oral solution 125 mg [id number] 07/07/2020 11:00:00 AM EST 125 mg Oral active 125 mg, Oral, Every 6 hours, First dose on Fri07/07/20 at 1100, For 10 days
Indicated for severe C. difficile infection, defined as: WBC > 15,000 SCr > 1.5 times the premorbid level Hypotension or shock Ileus Megacolon
[facility] Medication administered onsite Hydroxyzine Hydrochloride 25 MG Oral Tablet hydrOXYzin e (ATARAX) tablet 25 mg hydrOXYzine (ATARAX) tablet 25 mg 07/07/2020 10:56:18 AM EST 25 mg Oral aborted 25 mg, Oral, Every 6 hours PRN, Itching, Starting Fri07/07/20 at 1056, For [address] [facility] Medication administered onsite Atenolol 25 MG Oral Tablet atenolol (TENORMIN) tablet 100 mg atenolol (TENORMIN) tablet 100 mg 07/07/2020 09:00:00 AM EST 100 mg Oral abor tania 100 mg, Oral, Daily Standard, First dose on Fri07/07/20 at 0900, For 30 days
Check vital signs before administering
[facility] Medication administered onsite Lisinopril 10 MG Oral Tablet lisinopril (ZESTRIL) tabl et 10 mg lisinopril (ZESTRIL) tablet 10 mg 07/07/2020 09:00:00 AM EST 10 mg Oral active 10 mg, Oral, Daily Standard, First dose on Fri07/07/20 at 0900, For [address] [facility] Medication administered onsite pantoprazole 4 MG/ML Injectable Solution pantoprazole (PROTONIX) injection 40 mg pantoprazole (PROTONIX) injection 40 mg 07/07/2020 09:00:00 AM EST 40 mg Intravenous aborted 40 mg, Intrav enous, 2 Times Daily, First dose on Fri07/07/20 at 0900, For [address] [facility] Medication administered onsite Oxycodone Hydrochloride 5 [...] require Pain Service consultation and approval.
[facility] Medication administered onsite Oxycodone Hydrochloride 5 [...] require Pain Service consultation and approval.
[facility] Medication administered onsite buspirone hydrochloride 10 MG Oral Tablet busPIRone (B USPAR) tablet 10 mg busPIRone (BUSPAR) tablet 10 mg 07/07/2020 04:00:00 AM EST 10 mg O ral completed 10 mg, Oral, Once, Fri07/07/20 a t 0400, For [address] [facility] Medication administered onsite Famotidine 20 MG Oral Tablet famotidine (PEPCID) table t 20 mg famotidine (PEPCID) tablet 20 mg 07/07/2020 03:15:00 AM EST 20 mg Oral completed 20 mg, Oral, Once, Fri07/07/20 at 0315, For [address] [facility] Medication administered onsite Hydroxyzine Hydrochloride 10 MG Oral Tablet hydrOXYzin e (ATARAX) tablet 25 mg hydrOXYzine (ATARAX) tablet 25 mg 07/07/2020 03:00:00 AM EST 25 mg Oral completed 25 mg, Oral, Once, Fri07/07/20 a t 0300, For [address] [facility] Medication administered onsite Lactulose 667 MG/ML Oral Solution lactulose (CHRONULAC ) solution 30 mL lactulose (CHRONULAC) solution 30 mL 07/06/2020 05:00:00 PM EST 30 mL Oral aborted 30 mL, Oral, Three Times Da fawn Standard, First dose on Fri07/06/20 at 1700, For 30 days
Titrate to 2-3 bowel movements daily
[facility] Medication administered onsite thiamine (B-1) 500 mg in sodium chloride 0.9 % 50 mL IVPB 07/06/2020 05:00:00 PM EST 500 mg Intravenous aborted 500 mg, Intravenous, Administer over 30 Minutes, Three Times Daily Standard, First dose on Keily 07/06/20 at 1700, For [address] [facility] Medication administered onsite Benzocaine 15 MG / Menthol 3.6 MG Oral L ozenge benzocaine-menthol (CEPACOL) 15- 3.6 MG per lozenge 1 lozenge benzocaine-menthol (CEPACOL) 15-3.6 MG p er lozenge 1 lozenge 07/06/2020 04:12:51 PM EST 1 {lozenge} Mouth/Throat active 1 lozenge, Mouth/Throat, Every 2 hours PRN, Sore Throat, Starting Keily 07/06/20 at 1612, For [address] [facility] Medication administered onsite Ceftriaxone 1000 MG Injection cefTRIAXone (ROCEPHIN) i nfusion 1 g (premix) cefTRIAXone (ROCEPHIN) infusion 1 g (premix) 07/06/2020 03:15:00 PM EST 1 g Intravenous aborted 1 g, Intraven ous, at 100 mL/hr, Every 24 hours, First dose on Keily 07/06/20 at 1515, For 3 days
Discouraged Uses: Empiric treatment of post-surgical meningitis (ceftazidime preferred)
[facility] Medication administered onsite fentaNYL (SUBLIMAZE) (PF) injection 50 mcg [id number] 07/06/2020 02:30:00 PM EST 50 ug Intravenous completed 50 mcg, Intravenous, Once, Keily 07/06/20 at 1430, For [address] [facility] Medication administered onsite fentaNYL (SUBLIMAZE) (PF) injection 50 mcg [id number] 07/06/2020 02:30:00 PM EST 50 ug Intravenous completed 50 mcg, Intravenous, Once, Keily 07/06/20 at 1430, For [address] [facility] Medication administered onsite 2 ML Midazolam 1 MG/ML Injection midazolam (PF) (VERSE D) injection midazolam (PF) (VERSED) injection 07/06/2020 01:57:00 PM EST completed Code/Trauma Medication, Starting Keily 07/06/[address] [facility] Medication administered onsite 2 ML Midazolam 1 MG/ML Injection midazolam (PF) (VERSE D) injection midazolam (PF) (VERSED) injection 07/06/2020 01:55:00 PM EST completed Code/Trauma Medication, Starting Keily 07/06/[address] [facility] Medication administered onsite fentaNYL (SUBLIMAZE) (PF) injection [id number] 07/06/2020 01:52:00 PM EST completed Code/Trauma Medicati on, Starting Keily 07/06/[address] [facility] Medication administered onsite 2 ML Midazolam 1 MG/ML Injection midazolam (PF) (VERSE D) injection midazolam (PF) (VERSED) injection 07/06/2020 01:52:00 PM EST completed Code/Trauma Medication, Starting Keily 07/06/[address] [facility] Medication administered onsite fentaNYL (SUBLIMAZE) 100 MCG/2ML (PF) injection [id number] 07/06/2020 01:37:47 PM EST completed Starti ng Keily 07/06/20 at 1337, For 1 dose
Ryan Simpson : davian override
[facility] Medication administered onsite 1 ML Lorazepam 2 MG/ML Injection LORazepam (ATIVAN) in jection 2 mg LORazepam (ATIVAN) injection 2 mg 07/06/2020 10:15:00 AM EST 2 mg Intraveno us completed 2 mg, Intravenous, Once, Keily 07/06/20 at 1015, For [address] [facility] Medication administered onsite ondansetron (ZOFRAN) injection 4 mg [id number] 07/06/2020 10:04:5 4 AM EST 4 mg Intravenous active 4 mg, In travenous, Every 8 hours PRN, Nausea, Vomiting, Starting Keily 07/06/20 at 1004, For [address] [facility] Medication administered onsite Oxycodone Hydrochloride 5 [...] require Pain Service consultation and approval.
[facility] Medication administered onsite heparin (porcine) 5000 UNIT/ML injection 5,000 Units [id number] 07/06/2020 09:00:00 AM EST 5000 U Subcutaneous aborted 5,000 Units, Subcutaneous, 2 Times Daily, First dose on Keily 07/06/20 at 0900, For [address] [facility] Medication administered onsite Piperacillin 3000 MG [...] tazobactam is compatible with Lactated Ringers.
[facility] Medication administered onsite thiamine (B-1) 500 mg in sodium chloride 0.9 % 50 mL IVPB 07/06/2020 08:00:00 AM EST 500 mg Intravenous aborted 500 mg, Intravenous, Administer over 30 Minutes, Every 24 hours, First dose on Keily 07/06/20 at 0800, For [address] [facility] Medication administered onsite lactated ringers bolus 1,000 mL [id number] 07/06/2020 06:45:00 AM EST 1000 mL Intravenous completed 1,000 mL , Intravenous, Once, Keily 07/06/20 at 0645, For [address] [facility] Medication administered onsite potassium chloride (K-DUR) dissolvable tablet 40 mEq [id number] 07/06/2020 06:45:00 AM EST 40 meq Oral completed 40 mEq, Oral, Once, Keily 07/06/20 at 0645, For 1 dose
May be dissolved in water for patients with a G-Tube or unable to swallow. If concern for clogging G-Tube, may contact Pharmacy to switch formulation to a powder packet.
[facility] Medication administered onsite Oxycodone Hydrochloride 5 [...] require Pain Service consultation and approval.
[facility] Medication administered onsite Hydroxyzine Hydrochloride 10 MG Oral Tablet hydrOXYzin e (ATARAX) tablet 25 mg hydrOXYzine (ATARAX) tablet 25 mg 07/06/2020 04:06:13 AM EST 25 mg Oral aborted 25 mg, Oral, Every 6 hours PRN, Anxiety, Starting Keily 07/06/20 at 0406, For [address] [facility] Medication administered onsite Calcium Chloride 0.0014 MEQ/ML / Potassi um Chloride 0.004 MEQ/ML / Sodium Chloride 0.103 MEQ/ML / Sodium Lactate 0.028 MEQ/ML Injectable Solution lactated ringers infusion lactated ringers infusion 07/06/2020 03:45:00 AM EST 75 mL/h Intravenous aborted at 75 mL/hr, Intravenous, Continuous, Starting Keily 07/06/20 at 0345, For [address] [facility] Medication administered onsite lactated ringers bolus 1,000 mL [id number] 07/06/2020 03:30:00 AM EST 1000 mL Intravenous completed 1,000 mL , Intravenous, Once, Keily 07/06/20 at 0330, For [address] [facility] Medication administered onsite octreotide (SANDOSTATIN) 5 mcg/mL in sodium chloride 0.9 % 2 50 mL infusion 07/06/2020 03:15:00 AM EST 50 ug/h Intravenous aborted 50 mcg/hr (10 mL/hr), Intravenous, at 10 mL/hr, Continuous, Starting Keily 07/06/20 at 0315, For [address] [facility] Medication administered onsite albumin human (ALBUMINAR) 25 % bottle 100 g [id number] 07/06/2020 03:15:00 AM EST 100 g Intravenous completed 10 0 g, Intravenous, at 200 mL/hr, Once, Keily 07/06/20 at 0315, For [address] [facility] Medication administered onsite pantoprazole (PROTONIX) 0.4 mg/mL in sodium chloride 0.9 % 2 50 mL infusion 07/06/2020 03:15:00 AM EST 8 mg/h Intravenous aborted 8 mg/hr (20 mL/hr), Intravenous, at 20 mL/hr, Continuous, Starting Keily 07/06/20 at 0315, For 30 days
Indication: Active GI bleed [facility] Medication administered onsite 50 mg 08/09/2019 [...] pain)Can be used with lidocaine pain. [facility] Esomeprazole 20 MG Delayed Release Oral Capsule esomeprazole (NEXIUM) 20 MG capsule esomeprazole (NEXIUM) 20 MG capsule 20 mg Oral aborted Take 20 mg by mouth Two Times Daily [facility] Atenolol 100 MG Oral Tablet atenolol (TENORMIN) 100 MG tablet atenolol (TENORMIN) 100 MG tablet 100 mg Oral aborted Take 100 mg by mouth daily. [facility] Aspirin 325 MG Oral Tablet Aspirin 325 MG Oral Tablet 32 5 mg Oral aborted Take 325 mg by mouth daily [facility] Indomethacin (INDOCIN PO) Oral aborted Take by mouth. [facility] Hydroxyzine Hydrochloride 25 MG Oral Tablet hydrOXYzin e (ATARAX) 25 MG tablet hydrOXYzine (ATARAX) 25 MG tablet 25 mg Oral abor tania Take 25 mg by mouth Three times daily as needed for Itching. [facility] Lisinopril 10 MG Oral Tablet lisinopril (PRINIVIL,ZEST RIL) 10 MG tablet lisinopril (PRINIVIL,ZESTRIL) 10 MG tablet 10 mg Oral aborted Take 10 mg by mouth daily. [facility] Insurance Providers Payer name Policy type / Coverage type Policy ID Covered libertarian ID Covered libertarian's relationship to pandey Policy Pandey Plan Information [facility] [id number] SP [id number] [facility] [id number] S [id number] [facility] MEDICAID [id number] S [id number] [facility] MEDICAID [id number] S [id number] MEDICAID [id number] [facility] MEDICAID [id number] S [id number] [facility] MEDICAID [id number] S [id number] [facility] MEDICAID [id number] S [id number] [facility] MEDICAID [id number] S [id number] [facility] COMMUNITY PLAN [facility] [id number] SP [id number] [facility] COMMUNITY PLAN [facility] [id number] SP [id number] [facility] COMMUNITY PLAN [facility] [id number] SP [id number] MEDICAID M [id number] Self [id number] [facility] I [id number] Self [id number] [facility] I [id number] Self [id number] [facility] I [id number] Self [id number] MEDICAID M [id number] Self [id number] SELF PAY UNAVAILABLE S [place] [facility] [place] [id number] S [id number] [facility] MEDICAID [id number] S [id number] [facility] [id number] S [id number] [facility] COMMUNITY PLAN [facility] [id number] SP [id number] SELF PAY ONLY [id number] SP [id number] [facility] [id number] S [id number] [facility]-Med[facility] [id number] [facility]-Medicaid [id number] ANSI-Medicaid [id number] ANSI-Medicaid [id number] ANSI-Medicaid [id number] ANSI-Medicaid [id number] ANSI-Medicaid [id number] ANSI-Medicaid [id number] ANSI-Medicaid [id number] ANSI-Medicaid [id number] ANSI-Medicaid [id number] ANSI-Medicaid [id number] ANSI-Medicaid [id number] ANSI-Medicaid [id number] ANSI-Medicaid [id number] ANSI-Medicaid [id number] ANSI-Medicaid [id number] ANSI-Medicaid [id number] ANSI-Medicaid [id number] ANSI-Medicaid [id number] ANSI-Medicaid [id number] ANSI-Medicaid [id number] ANSI-Medicaid [id number] ANSI-Medicaid [id number] ANSI-Medicaid [id number] ANSI-Medicaid [id number] ANSI-Medicaid [id number] ANSI-Medicaid [id number] ANSI-Medicaid [id number] ANSI-Medicaid [id number] ANSI-Medicaid [id number] ANSI-Medicaid [id number] ANSI-Medicaid [id number] ANSI-Medicaid [id number] ANSI-Medicaid [id number] ANSI-Medicaid [id number] ANSI-Medicaid [id number] ANSI-Medicaid [id number] [facility] COMMUNITY [facility] [id number] SP [id number] [employer] Medicaid Medicaid [id number] Self [id number] [facility] [id number] S [id number] MEDICAID [id number] SP [id number] MEDICAID P [id number] S [id number] SELF PAY SP UNAVAILABLE UNAVAILA BLE MEDICAID [id number] S [id number] Problems, Conditions, and Diagnoses Code Display Name Description Problem Type Effective Dates Data Source(s) R65.20 Severe sepsis without septic shock SEVERE SEPSIS WITHOUT SEPTIC SHOCK Diagnosis 08/31/2020 03:32:00 AM [facility] R79.1 Abnormal coagulation profile ABNORMAL COAGULATION PROF ILE Diagnosis 08/31/2020 03:32:00 AM [facility] R07.9 Chest pain, unspecified CHEST PAIN, UNSPECIFIED Diagno sis 08/31/2020 03:32:00 AM [facility] F17.200 Nicotine dependence, unspecified, uncomp licated NICOTINE DEPENDENCE, UNSPECIFIED, UNCOMPLICATED Diagnosis 08/31/2020 03:32:00 AM [facility] E78.5 Hyperlipidemia, unspecified HYPERLIPIDEMIA, UNSPECIFIE D Diagnosis 08/31/2020 03:32:00 AM [facility] F32.9 Major depressive disorder, single episod e, unspecified MAJOR DEPRESSIVE DISORDER, SINGLE EPISODE, UNSPECI Diagnosis 08/31/2020 03:32:00 AM [facility] I10 Essential (primary) hypertension ESSENTIAL (PRIMARY) H YPERTENSION Diagnosis 08/31/2020 03:32:00 AM [facility] F10.10 Alcohol abuse, uncomplicated ALCOHOL ABUSE, UNCOMPLICA TANIA Diagnosis 08/31/2020 03:32:00 AM [facility] B34.8 Other viral infections of unspecified si te OTHER VIRAL INFECTIONS OF UNSPECIFIED SITE Diagnosis 08/31/2020 03:32:00 AM [facility] N40.0 Benign prostatic hyperplasia without low er urinary tract symptoms BENIGN PROSTATIC HYPERPLASIA WITHOUT LOWER URINRY Diagnosis 08/31/2020 03:32: 00 AM [facility] K21.9 Gastro-esophageal reflux disease without esophagitis GASTRO-ESOPHAGEAL REFLUX DISEASE WITHOUT ESOPHAGIT Diagnosis 08/31/2020 03:32:00 AM [facility] E11.9 Type 2 diabetes mellitus without complic ations TYPE 2 DIABETES MELLITUS WITHOUT COMPLICATIONS Diagnosis 08/31/2020 03:32:00 AM [facility] pital J12.82 PNEUMONIA DUE TO CORONAVIRUS DISEASE 201 9 PNEUMONIA DUE TO CORONAVIRUS DISEASE 2019 Diagnosis 08/31/2020 03:32:00 AM [facility] D69.6 Thrombocytopenia, unspecified THROMBOCYTOPENIA, UNSPEC IFIED Diagnosis 08/31/2020 03:32:00 AM [facility] K74.60 Unspecified cirrhosis of liver UNSPECIFIED CIRRHOSIS O F LIVER Diagnosis 08/31/2020 03:32:00 AM [facility] U07.1 COVID-19 COVID-19 Diagnosis 08/31/2020 03:32:00 AM [facility] E87.2 Acidosis ACIDOSIS Diagnosis 08/31/2020 03:32:00 AM [facility] A41.9 Sepsis, unspecified organism SEPSIS, UNSPECIFIED ORGAN ISM Diagnosis 08/31/2020 03:32:00 AM [facility] Z86.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), and cerebral infarction without residual deficits PRSNL HX OF TIA (TIA), AND CEREB INFRC W /O RESID D Diagnosis 08/30/2020 03:59:00 PM [facility] l Z79.899 Other snf (current) drug therapy O THER CORRECTION (CURRENT) DRUG THERAPY Diagnosis 08/30/2020 03:59:00 PM [facility] l F17.210 Nicotine dependence, cigarettes, uncompl icated NICOTINE DEPENDENCE, CIGARETTES, UNCOMPLICATED Diagnosis 08/30/2020 03:59:00 PM [facility] E11.9 Type 2 diabetes mellitus without complic ations TYPE 2 DIABETES MELLITUS WITHOUT COMPLICATIONS Diagnosis 08/30/2020 03:59:00 [facility] B34.8 Other viral infections of unspecified si te OTHER VIRAL INFECTIONS OF UNSPECIFIED SITE Diagnosis 08/30/2020 03:59:00 PM [facility] l J18.9 Pneumonia, unspecified organism PNEUMONIA, UNSPECIFIED ORGANISM Diagnosis 08/30/2020 03:59:00 PM [facility] U07.1 COVID-19 COVID-19 Diagnosis 08/30/2020 03:59:00 PM [facility] A41.9 Sepsis, unspecified organism SEPSIS, UNSPECIFIED ORGAN ISM Diagnosis 08/30/2020 03:59:00 PM [facility] R07.89 Other chest pain OTHER CHEST PAIN Diagnosis 08/30/2020 03 :59:00 PM [facility] K92.2 Gastrointestinal hemorrhage, unspecified Gastrointestinal hemorrhage, unspecified Diagnosis 07/09/2020 11:55:34 AM [facility] K52.9 Noninfective gastroenteritis and colitis , unspecified Noninfective gastroenteritis and colitis, unspecified Diagnosis 07/06/2020 03:03:[address] [facility] Vomiting blood Vomiting blood Diagnosis 07/06/2020 03:03: [address] 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 (CURRENT) USE OF OPIATE ANALGESIC Diagnosis 07/05/2020 08:45:00 PM [facility] l I95.1 Orthostatic hypotension ORTHOSTATIC HYPOTENSION Diagno sis 07/05/2020 08:45:00 PM [facility] N17.9 Acute kidney failure, unspecified ACUTE KIDNEY F AILURE, UNSPECIFIED Diagnosis 07/05/2020 08:45:00 PM [facility] K21.00 GASTRO-ESOPHAGEAL REFLUX DIS WITH ESOPHA GITIS, WIT GASTRO-ESOPHAGEAL REFLUX DIS WITH ESOPHAGITIS, WIT Diagnosis 07/05/2020 08:45:00 PM [facility] I85.10 Secondary esophageal varices without ble eding SECONDARY ESOPHAGEAL VARICES WITHOUT BLEEDING Diagnosis 07/05/2020 08:45:00 PM [facility] F10.20 Alcohol dependence, uncomplicated ALCOHOL DEPEND ENCE, UNCOMPLICATED Diagnosis 07/05/2020 08:45:00 PM [facility] E86.0 Dehydration DEHYDRATION Diagnosis 07/05/2020 08:45:00 PM [facility] K52.9 Noninfective gastroenteritis and colitis , unspecified NONINFECTIVE GASTROENTERITIS AND COLITIS, UNSPECIF Diagnosis 07/05/2020 08:45:00 PM [facility] R11.2 Nausea with vomiting, unspecified NAUSEA WITH VO MITING, UNSPECIFIED Diagnosis 07/05/2020 08:45:00 PM [facility] E86.9 Volume depletion, unspecified VOLUME DEPLETION, UNSPEC IFIED Diagnosis 07/05/2020 08:45:00 PM [facility] G89.29 Other chronic pain OTHER CHRONIC PAIN Diagnosis 05/2019 01:11:00 [facility] G47.9 Sleep disorder, unspecified SLEEP DISORDER, UNSPECIFIE D Diagnosis 08/09/2019 01:11:00 [facility] F10.10 Alcohol abuse, uncomplicated ALCOHOL ABUSE, UNCOMPLICA TANIA Diagnosis 08/09/2019 01:11:00 [facility] F17.200 Nicotine dependence, unspecified, uncomp licated NICOTINE DEPENDENCE, UNSPECIFIED, UNCOMPLICATED Diagnosis 08/09/2019 01:11:00 [facility] F33.1 Major depressive disorder, recurrent, mo derate MAJOR DEPRESSIVE DISORDER, RECURRENT, MODERATE Diagnosis 08/09/2019 01:11:00 PM [facility] K31.9 Disease of stomach and duodenum, unspeci fied DISEASE OF STOMACH AND DUODENUM, UNSPECIFIED Diagnosis 07/24/2019 05:33:00 [facility] F41.9 Anxiety disorder, unspecified ANXIETY DISORDER, UNSPEC IFIED Diagnosis 07/24/2019 05:33:00 PM [facility] Surgeries/Procedures Procedure Description Date Indications Data Source(s) Introduction of Anti-inflammatory into Peripheral Vein, Perc utaneous Approach 08/31/2020 12:00:00 AM [facility] Introduction of Other Anti-infective int o Peripheral Vein, Percutaneous Approach 08/31/2020 12:00:00 AM [facility] INTRODUCE REMDESIVIR IN PERIPH VEIN, PERC, [place] 08/31/2020 12:00:00 AM [facility] POCT GLUCOSE, DOCKED POCT GLUCOSE, DOCKED Routine 07/10/2020 11:55 AM EST 07/10/2020 11:55:[address] [facility] POCT GLUCOSE, DOCKED POCT GLUCOSE, DOCKED Routine 07/10/2020 8:48 AM EST 07/10/2020 08:48:[address] [facility] BLOOD COUNT COMPLETE AUTO&AUTO DIFRNTL WBC COUNT CBC AND DIFFER ENTIAL Routine 07/10/2020 3:54 AM EST 07/10/2020 03:54:[address] [facility] PHOSPHORUS INORGANIC PHOSPHORUS LEVEL Timed 07/10/2020 3:[address] 07/10/2020 03:54:[address] [facility] MAGNESIUM MAGNESIUM LEVEL Routine 07/10/2020 3:54 AM EST 07/10/2020 03:54:[address] [facility] COMPREHENSIVE METABOLIC PANEL COMPREHENSIVE METABOLIC PANEL Rou jeyson 07/10/2020 3:54 AM EST 07/10/2020 03:54:00 AM [facility] PHOSPHORUS INORGANIC PHOSPHORUS LEVEL Timed 07/09/2020 6:[address] 07/09/2020 06:16:[address] [facility] GLUCOSE QUANTITATIVE BLOOD XCPT REAGENT STRIP POCT GLUCOSEMALIHA Routine 07/09/2020 4:49 PM EST 07/09/2020 04:49:[address] [facility] PHOSPHORUS INORGANIC PHOSPHORUS LEVEL Timed 07/09/2020 4:[address] 07/09/2020 04:09:[address] [facility] GLUCOSE QUANTITATIVE BLOOD XCPT REAGENT STRIP POCT GLUCOSEMALIHA Routine 07/09/2020 12:24 PM EST 07/09/2020 12:24:[address] [facility] PHOSPHORUS INORGANIC PHOSPHORUS LEVEL Timed 07/09/2020 10:[address] 07/09/2020 10:05:[address] [facility] GLUCOSE QUANTITATIVE BLOOD XCPT REAGENT STRIP POCT GLUCOSE, MALIHA GUILLERMO Routine 07/09/2020 7:50 AM EST 07/09/2020 07:50:[address] [facility] BLOOD COUNT COMPLETE AUTO&AUTO DIFRNTL WBC COUNT CBC AND DIFFER ENTIAL Routine 07/09/2020 12:47 AM EST 07/09/2020 12:47:[address] [facility] PHOSPHORUS INORGANIC PHOSPHORUS LEVEL Timed 07/09/2020 12:[address] 07/09/2020 12:47:[address] [facility] MAGNESIUM MAGNESIUM LEVEL Routine 07/09/2020 12:47 AM EST 07/09/2020 12:47:[address] [facility] COMPREHENSIVE METABOLIC PANEL COMPREHENSIVE METABOLIC PANEL Rou jeyson 07/09/2020 12:47 AM EST 07/09/2020 12:47:00 AM [facility] GLUCOSE QUANTITATIVE BLOOD XCPT REAGENT STRIP POCT GLUCOSE, MALIHA GUILLERMO Routine 07/08/2020 9:24 PM EST 07/08/2020 09:24:[address] [facility] GLUCOSE QUANTITATIVE BLOOD XCPT REAGENT STRIP POCT GLUCOSE, MALIHA GUILLERMO Routine 07/08/2020 4:57 PM EST 07/08/2020 04:57:[address] [facility] GLUCOSE QUANTITATIVE BLOOD XCPT REAGENT STRIP POCT GLUCOSE, MALIHA GUILLERMO Routine 07/08/2020 12:50 PM EST 07/08/2020 12:50:[address] [facility] PHOSPHORUS INORGANIC PHOSPHORUS LEVEL Timed 07/08/2020 10:[address] 07/08/2020 10:28:[address] [facility] GLUCOSE QUANTITATIVE BLOOD XCPT REAGENT STRIP POCT GLUCOSE, MALIHA GUILLERMO Routine 07/08/2020 8:42 AM EST 07/08/2020 08:42:[address] [facility] BLOOD COUNT COMPLETE AUTO&AUTO DIFRNTL WBC COUNT CBC AND DIFFER ENTIAL Timed 07/08/2020 2:11 AM EST 07/08/2020 02:11:[address] [facility] PHOSPHORUS INORGANIC PHOSPHORUS LEVEL Timed 07/08/2020 2:[address] 07/08/2020 02:11:[address] [facility] MAGNESIUM MAGNESIUM LEVEL Routine 07/08/2020 2:11 AM EST 07/08/2020 02:11:[address] [facility] COMPREHENSIVE METABOLIC PANEL COMPREHENSIVE METABOLIC PANEL Rou jeyson 07/08/2020 2:11 AM EST 07/08/2020 02:11:00 AM [facility] GLUCOSE QUANTITATIVE BLOOD XCPT REAGENT STRIP POCT GLUCOSE, MALIHA GUILLERMO Routine 07/07/2020 9:53 PM EST 07/07/2020 09:53:[address] [facility] EKG 12-LEAD - CMAXX REPORT EKG 12-LEAD - CMAXX REPORT 07/07/2020 9:45 PM EST 07/07/2020 09:45:00 PM [facility] EKG 12-LEAD - CMAXX REPORT EKG 12-LEAD - CMAXX REPORT 07/07/2020 9:45 PM EST 07/07/2020 09:45:00 PM [facility] EKG 12-LEAD EKG 12-LEAD STAT 07/07/2020 9:45 PM EST 07/07/2020 09:45:[address] [facility] BLOOD COUNT COMPLETE AUTO&AUTO DIFRNTL WBC COUNT CBC AND DIFFER ENTIAL Timed 07/07/2020 6:45 PM EST 07/07/2020 06:45:[address] [facility] PHOSPHORUS INORGANIC PHOSPHORUS LEVEL Routine 07/07/2020 6:[address] 07/07/2020 06:45:[address] [facility] GLUCOSE QUANTITATIVE BLOOD XCPT REAGENT STRIP POCT GLUCOSE, MALIHA GUILLERMO Routine 07/07/2020 5:29 PM EST 07/07/2020 05:29:[address] [facility] PHOSPHORUS INORGANIC PHOSPHORUS LEVEL Timed 07/07/2020 5:[address] 07/07/2020 05:29:[address] [facility] MAGNESIUM MAGNESIUM LEVEL Routine 07/07/2020 5:29 PM EST 07/07/2020 05:29:[address] [facility] GLUCOSE QUANTITATIVE BLOOD XCPT REAGENT STRIP POCT GLUCOSE, MALIHA GUILLERMO Routine 07/07/2020 12:25 PM EST 07/07/2020 12:25:[address] [facility] GLUCOSE QUANTITATIVE BLOOD XCPT REAGENT STRIP POCT GLUCOSE, MALIHA GUILLERMO Routine 07/07/2020 12:23 PM EST 07/07/2020 12:23:[address] [facility] POTASSIUM SERUM PLASMA/WHOLE BLOOD POTASSIUM Routine 07/07/2020 8:22 AM EST 07/07/2020 08:22:00 AM [facility] PHOSPHORUS INORGANIC PHOSPHORUS LEVEL Routine 07/07/2020 8:[address] 07/07/2020 08:22:[address] [facility] GLUCOSE QUANTITATIVE BLOOD XCPT REAGENT STRIP POCT GLUCOSE, MALIHA GUILLERMO Routine 07/07/2020 8:18 AM EST 07/07/2020 08:18:[address] [facility] BLOOD COUNT COMPLETE AUTOMATED CBC AND DIFFERENTIAL Timed 07/07/2020 5:43 AM EST 07/07/2020 05:43:00 AM [facility] HEMOGLOBIN GLYCOSYLATED A1C HEMOGLOBIN A1C Routine 07/07/2020 5:43 AM EST 07/07/2020 05:43:[address] [facility] COMPREHENSIVE METABOLIC PANEL COMPREHENSIVE METABOLIC PANEL Rou jeyson 07/07/2020 5:43 AM EST 07/07/2020 05:43:00 AM [facility] BLOOD COUNT COMPLETE AUTO&AUTO DIFRNTL WBC COUNT CBC AND DIFFER ENTIAL Timed 07/07/2020 12:12 AM EST 07/07/2020 12:12:[address] [facility] GLUCOSE QUANTITATIVE BLOOD XCPT REAGENT STRIP POCT GLUCOSE, DOC KED Routine 07/06/2020 10:08 PM EST 07/06/2020 10:08:[address] [facility] POTASSIUM SERUM PLASMA/WHOLE BLOOD POTASSIUM Routine 07/06/2020 9:39 PM EST 07/06/2020 09:39:00 PM [facility] PHOSPHORUS INORGANIC PHOSPHORUS LEVEL Routine 07/06/2020 9:[address] 07/06/2020 09:39:[address] [facility] MAGNESIUM MAGNESIUM LEVEL Routine 07/06/2020 9:39 PM EST 07/06/2020 09:39:[address] [facility] BLOOD COUNT COMPLETE AUTO&AUTO DIFRNTL WBC COUNT CBC AND DIFFER ENTIAL Timed 07/06/2020 5:36 PM EST 07/06/2020 05:36:[address] [facility] LACTATE LACTIC ACID LEVEL, PLASMA Timed 07/06/2020 5:36 PM EST 07/06/2020 05:36:[address] [facility] COMMUNITY-ACQUIRED DIARRHEA PANEL COMMUNITY-ACQUIRED DIARRHEA P QUINCY Routine 07/06/2020 2:48 PM EST 07/06/2020 02:48:[address] [facility] OVA&PARASITES DIRECT SMEARS CONCENTRATION&ID OVA AND PARASITE S CREEN Routine 07/06/2020 2:48 PM EST 07/06/2020 02:48:[address] [facility] UPPER GI ENDOSCOPY; DX, W/WO SPECIMEN COLLECTION, BRUS OLAMIDE/WASHING (SEP PROC) UPPER GI ENDOSCOPY; DX, W/WO SPECIMEN COLLECTION, BRUSHING/WASHING (SEP PROC) 07/06/2020 1:25 PM EST [employer] emesis 07/06/2020 01:25:00 PM EST - 07/06/2020 02:11:[address] [facility] BLOOD COUNT COMPLETE AUTO&AUTO DIFRNTL WBC COUNT CBC AND DIFFER ENTIAL Timed 07/06/2020 11:35 AM EST 07/06/2020 11:35:[address] [facility] PHOSPHORUS INORGANIC PHOSPHORUS LEVEL Routine 07/06/2020 11:[address] 07/06/2020 11:35:[address] [facility] MAGNESIUM MAGNESIUM LEVEL Routine 07/06/2020 11:35 AM EST 07/06/2020 11:35:[address] [facility] LACTATE LACTIC ACID LEVEL, PLASMA Timed 07/06/2020 11:35 AM EST 07/06/2020 11:35:[address] [facility] BASIC METABOLIC PANEL CALCIUM TOTAL BASIC METABOLIC PANEL Routi ne 07/06/2020 11:35 AM EST 07/06/2020 11:35:00 AM [facility] BLOOD COUNT COMPLETE AUTO&AUTO DIFRNTL WBC COUNT CBC AND DIFFER ENTIAL Timed 07/06/2020 8:09 AM EST 07/06/2020 08:09:[address] [facility] INSJ NON-TUNNELED CENTRAL VENOUS CATH AGE 5 YR/> FL INSERT NON-TUNNEL CV CATH Routine 07/06/2020 6:34 AM EST Colitis Gastrointestinal hemorrhage, unspecified gastrointestinal hemorrhage type 07/06/2020 06:34:47 AM EST Gastrointestinal hemorrhage, [facility], unspecified gastrointestinal hemorrhage type Colitis US ABDOMINAL REAL TIME W/IMAGE DOCUMENTATION US ABDOMEN COMPLET E [id number] STAT 07/06/2020 4:47 AM EST 07/06/2020 04:47:[address] [facility] DRUGS OF ABUSE, URINE DRUGS OF ABUSE, URINE Routine 07/06/2020 4 :26 AM EST 07/06/2020 04:26:00 AM [facility] THROMBOPLASTIN TIME PARTIAL PLASMA/WHOLE BLOOD PARTIA L THROMBOPLASTIN TIME (PTT) Routine 07/06/2020 4:26 AM EST 07/06/2020 04:26 :[address] [facility] IAAD EIA HIV-1 AG W/HIV-1&HIV-2 ANTBDY SINGLE HIV AG AB COMBO S CREEN Routine 07/06/2020 4:26 AM EST 07/06/2020 04:26:[address] [facility] ETHYL ALCOHOL LEVEL ETHYL ALCOHOL LEVEL Routine 07/06/2020 4:26 AM EST 07/06/2020 04:26:[address] [facility] HEPATITIS C ANTIBODY HEPATITIS C ANTIBODY Routine 07/06/2020 4:26 AM EST 07/06/2020 04:26:[address] [facility] HEPATITIS ANTIBODY HAAB IGM ANTIBODY HEPATITIS A ANTIBODY, IGM Routine 07/06/2020 4:26 AM EST 07/06/2020 04:26:[address] [facility] HEPATITIS B CORE ANTIBODY HBCAB IGM ANTIBODY HEPATITIS B CO RE ANTIBODY, IGM Routine 07/06/2020 4:26 AM EST 07/06/2020 04:26:[address] [facility] SODIUM URINE SODIUM, URINE, RANDOM Routine 07/06/2020 4:26 AM EST 07/06/2020 04:26:[address] [facility] CREATININE OTHER SOURCE CREATININE, URINE, RANDOM Routine 07/06/2020 4:26 AM EST 07/06/2020 04:26:00 AM [facility] IAAD EIA HEPATITIS B SURFACE ANTIGEN HEPATITIS B SURFACE ANTIGE N Routine 07/06/2020 4:26 AM EST 07/06/2020 04:26:[address] [facility] CULTURE BACTERIAL BLOOD AEROBIC W/ID ISOLATES BLOOD CULTURE R outine 07/06/2020 4:26 AM EST 07/06/2020 04:26:00 AM [facility] CULTURE BACTERIAL BLOOD AEROBIC W/ID ISOLATES BLOOD CULTURE R outine 07/06/2020 4:26 AM EST 07/06/2020 04:26:00 AM [facility] URNLS DIP STICK/TABLET REAGENT AUTO MICROSCOPY URINALYSIS W ITH MICROSCOPIC Routine 07/06/2020 4:26 AM EST 07/06/2020 04:26:[address] [facility] PROTHROMBIN TIME PROTIME INR Routine 07/06/2020 4:26 AM EST 07/06/2020 04:26:[address] [facility] CULTURE BCT ISOL&PRSMPTV ID ISOLATE EA URINE URINE CULTURE Ro utine 07/06/2020 4:26 AM EST 07/06/2020 04:26:00 AM [facility] PHOSPHORUS INORGANIC PHOSPHORUS LEVEL Routine 07/06/2020 4:[address] 07/06/2020 04:26:[address] [facility] MAGNESIUM MAGNESIUM LEVEL Routine 07/06/2020 4:26 AM EST 07/06/2020 04:26:[address] [facility] LACTATE LACTIC ACID LEVEL, PLASMA Routine 07/06/2020 4:26 AM EST 07/06/2020 04:26:[address] [facility] AMMONIA AMMONIA LEVEL Routine 07/06/2020 4:26 AM EST 07/06/2020 04:26:[address] [facility] COMPREHENSIVE METABOLIC PANEL COMPREHENSIVE METABOLIC PANEL Rou jeyson 07/06/2020 4:26 AM EST 07/06/2020 04:26:00 AM [facility] GLUCOSE QUANTITATIVE BLOOD XCPT REAGENT STRIP POCT GLUCOSE, DOC KED Routine 07/06/2020 2:19 AM EST 07/06/2020 02:19:[address] [facility] UPPER GI ENDOSCOPY UPPER GI ENDOSCOPY 07/06/2020 12:[address] 07/06/2020 12:00:[address] [facility] Results ID Date Data Source [id number] 09/05/2020 07:31:00 AM [facility] Mylenesofiya bose Exam Number: [id number] Reported By: Elkin OMALLEY M.D. Signed By: Diony OMALLEY M.D. Name Value Range Interpretation Code Description Data Zahraa rce(s) Supporting Document(s) ID Date Data Source [id number] 09/04/2020 01:21:[address] [id number] SUMMARYPATIENT NAME: JANICE VERMA MR#: [id number] PHYSICIAN: TODD ELKINS DOAUTHOR: Todd Elkins DO DATE: 08/31/20 #: 2EASTDISCHARGE DATE: 09/04/20 : 65Summary of HospitalizationReason for AdmissionChest pain and shortness of breathHospital CoursePatient is a 55 years of male with a past medical history significant fordiabetes, chronic alcohol abuse, depression, BPH and hypertension initial [facility] room with complaints of shortness ofbreath and chest pain. Diagnostic work-up in the emergency room demonstratedCOVID-19 infection and human virus infection. Patient was given remdesivir,dexamethasone, Rocephin, azithromycin. Patient was then transferred to [facility] for severe sepsis secondary to [...] Hypertension8. Depression9. BPH (benign prostatic hyperplasia)10. HUMAN GXYCXZPVMS62. Elevated d- dimerDiagnoses (Other)Past Pertinent History1. Diabetes2. [...] taking the following medications:CARVEDILOL (Coreg*) 12.5 MG XACFII34.5 MILLIGRAM Orally TWICE DAILY Qty = 0Continue taking these medications:Aspirin E.c.* (Aspirin EC*) 81 MG TABLET.DR81 MILLIGRAM Orally DAILYOMEPRAZOLE (Omeprazole) 20 MG TABLET.DR20 MILLIGRAM Orally DAILYHYDROXYZINE PAMOATE (Atarax*) 50 MG [id number] MILLIGRAM Orally TWICE DAILY as needed for ANXIETYATORVASTATIN CALCIUM (ATORVASTATIN) 80 MG CEEALI51 MILLIGRAM Orally DAILYQty = 0FOLIC ACID* (Folvite*) 1 MG TABLET1 MILLIGRAM Orally DAILYQty = 0NAPROXEN (NAPROXEN*) 500 MG [id number] MILLIGRAM Orally TWICE DAILYQty = 0Fluoxetine* (Prozac*) 20 MG GVQNXHF89 MILLIGRAM Orally DAILYQty = 0QUETIAPINE FUMARATE (QUETIAPINE) 100 MG GVKWPQ246 MILLIGRAM Orally AT BEDTIMEQty = 0TAMSULOSIN HCL (TAMSULOSIN) 0.4 MG CAP.ER.24H0.4 MILLIGRAM Orally TWICE DAILYQty = 0Discharge Activity: As toleratedDischarge diet: 2Gm SodiumFollow-upFollow up with your Primary care physicianTime spent by provider to complete discharge > 30 minutesDATE SIGNED: 09/10/20 Electronically SignedTIME SIGNED: 2012 TODD ELKINS DO Name Value Range Interpretation Code Description Data Zahraa rce(s) Supporting Document(s) ID Date Data Source [id number] 09/04/2020 12:09:00 PM EST [facility] Name Value Range Interpretation Code Description Data Zahraa rce(s) Supporting Document(s) FGLU 293 mg/dL 70-110 [facility] ID Date Data Source [id number] 09/04/2020 10:29:00 AM EST [facility] [address] [address]BUHBL NAME: JANICE VERMA#: [id number] PHYSICIAN: TODD ELKINS DOACCOUNT #: [id number] ADM. DATE: 08/31/20PATIENT : 65 DISCH. DATE: [50}DISCHARGE SUMMARYMedical Discharge PlanPersonal Care InstructionsDischarge Activity: As toleratedDischarge diet: 2Gm SodiumProblem ListMedical ProblemsBPH (benign prostatic hyperplasia)Chest pain (Resolved)Chronic alcohol abuseDepressionDiabetesElevated d-dimerHUMAN RHINOVIRUSHyperlipidemiaHypertensionPneumonia due to COVID-19 virusSevere sepsis (Resolved)Follow Up CareFollow Up:Follow up with your Primary care physicianEND ENDDICT: 09/04/20 1029 Electronically SignedTRANS:09/04/20 1029 SEBLE MORFIN BY:DATE SIGNED:09/10/20TIME SIGNED: 2012REPORT COPY TO: Name Value Range Interpretation Code Description Data Zahraa rce(s) Supporting Document(s) ID Date Data Source [id number] 09/04/2020 06:06:00 AM EST [facility] Name Value Range Interpretation Code Description Data Zahraa rce(s) Supporting Document(s) FGLU 209 mg/dL 70-110 [facility] ID Date Data Source [id number] 09/03/2020 10:52:00 PM EST [facility] Name Value Range Interpretation Code Description Data Zahraa rce(s) Supporting Document(s) FGLU 316 mg/dL 70-110 [facility] ID Date Data Source [id number] 09/03/2020 06:44:00 PM EST [facility] Name Value Range Interpretation Code Description Data Zahraa rce(s) Supporting Document(s) FGLU 391 mg/dL 70-110 [facility] ID Date Data Source [id number] 09/03/2020 02:44:00 PM EST [facility] [address] [address]ICHBINLT NOTEPATIENT NAME: JANICE VERMA PHYSICIAN: TODD ELKINS DOAUTHOR: Todd Elkins DOADM. DATE: 08/31/20 MR#: [id number] NOTE DATE: 09/03/20 RM#: [id number] TIME: 1451 : 65SubjectiveEvents Since Last EntryPatient seen and examined in room today. Patient's oxygenation is maintainedin room air no fever or chill.ObjectiveVital SignsVital Signs-24 HRS09/02807 2141 2150 0210 0646Temp 98.0 97.8 97.0 97.2Pulse 51 50 78 52 49Resp 20 18 17 16B/P 126/63 130/66 130/66 119/64 120/65B/P MeanPulse Ox 96 95 96 96O2 DeliveryO2 Flow SbgeRiM406/088070CvhfWbfyl 78RespB/P 130/66B/P MeanPulse OxO2 DeliveryO2 Flow RateFiO2 Intake/OutputIntake/Output Summary 24 hours09/02 1900 09/03 0700Intake Total 1092 600Output TotalBalance 1092 600Intake, [...] HCl (VITAMIN B1) 100 MG DAILY POTiotropium [place] (Spiriva) 1 puffDAILY INHInsulin Aspart (Humalog Insulin) [...] DepressionA&P- Continue Prozac9. BPH (benign prostatic hyperplasia)A&PContinue Yiennu02. HUMAN RHINOVIRUSA&P-Continue supportive care11. Elevated d-dimerA&P- CTA ruled out PE. Lower extremity Doppler came back negative for DVT.- Patient has Covid.Resuscitation status Full codeVTE ProphylaxisVTE Prophylaxis: Continue Lovenox.DATE SIGNED: 09/10/20 Electronically SignedTIME SIGNED: 2012 TODD ELKINS DO Name Value Range Interpretation Code Description Data Zahraa rce(s) Supporting Document(s) ID Date Data Source [id number] 09/03/2020 02:54:00 PM EST [facility] Name Value Range Interpretation Code Description Data Zahraa rce(s) Supporting Document(s) FGLU 377 mg/dL 70-110 [facility] ID Date Data Source [id number] 09/03/2020 09:20:00 AM EST [facility] Name Value Range Interpretation Code Description Data Zahraa rce(s) Supporting Document(s) GLU 237 mg/dL 70-110 [facility] Patients taking Sulfasalazine may have f alsely depressedGlucose levels. Patients taking Sulfapyridine may havefalsely elevated Glucose levels. Patients should be drawnfor Glucose before the initial administration of eitherdrug. BUN 23 mg/dL 7-23 [facility] CRE 1.010 mg/dL 0.500-1.300 [facility] GFR > 60 mL/min [facility] CHLORIDE 102 mmol/L 99-110 [facility] NA 135 mmol/L 136-147 [facility] POTASSIUM 4.1 mmol/L 3.5-5.1 [facility] TCO2 24 mmol/L 20-33 [facility] ANION GAP 13.1 10.0-20.0 [facility] CA 7.8 mg/dL 8.3-10.7 [facility] ID Date Data Source [id number] 09/03/2020 08:55:00 AM EST [facility] Name Value Range Interpretation Code Description Data Zahraa rce(s) Supporting Document(s) WBC 11.17 x10E3/uL 4.0-10.5 [facility] 3.88 x10E6/uL 4.70-6.00 [facility] Hemoglobin 11.9 g/dL 14.0-18.0 [facility] Hematocrit 35.7 % 42.0-52.0 [facility] MCV 92.0 fL 81.0-99.0 [facility] MCH 30.7 pg 27.0-31.0 [facility] MCHC 33.3 g/dL 32.7-35.6 [facility] RDW 14.3 % 11.5-14.0 [facility] Platelet count 85 x10E3/uL 150-450 L [facility] MPV 11.8 fl 6.9-9.5 [facility] Neutrophils 84.1 % 34-64 [facility] Lymphocytes 9.5 % 25-45 [facility] Monocytes 4.0 % 1.7-10.6 [facility] Eosinophils 0.5 % 0.4-7.0 [facility] Basophils 0.2 % 0.1-2.0 [facility] Imm. Gran. 1.7 % 0.1-2.0 [facility] Abs. Neutro. 9.39 x10E3/uL 1.2-7.6 [facility] Abs. Lymph. 1.06 x10E3/uL 1.0-3.5 [facility] Abs. Morton. 0.45 x10E3/uL 0.1-1.0 [facility] Abs. Eosin. 0.06 x10E3/uL 0.1-0.7 [facility] Abs. Baso. 0.02 x10E3/uL 0.0-0.1 [facility] Abs. Imm. Gran. 0.19 x10E3/uL 0.0-0.1 [facility] ANRBC% 0 % 0 [facility] ID Date Data Source [id number] 09/03/2020 01:26:00 PM EST [facility] Name Value Range Interpretation Code Description Data Zahraa rce(s) Supporting Document(s) D-DIMER 1.72 mg/L H [facility] CORRECTED REPORT 09/03/20 1325: D-DIMER previously reported as: 3.65 H mg/LCUT OFF VALUE = 0.5 mg/L The negative predictive value for DVT or PE is at 98% whenthe result is below the cut off. ID Date Data Source [id number] 09/03/2020 09:20:00 AM EST [facility] Name Value Range Interpretation Code Description Data Zahraa rce(s) Supporting Document(s) C-REACTIVE PROT 4.19 mg/dL 0.0-0.49 [facility] [place] [facility] ID Date Data Source [id number] 09/03/2020 08:28:00 AM EST [facility] Name Value Range Interpretation Code Description Data Zahraa rce(s) Supporting Document(s) FGLU 280 mg/dL 70-110 [facility] ID Date Data Source [id number] 09/02/2020 11:59:00 AM EST [facility] [address] [id number] NOTEPATIENT NAME: JANICE VERMA PHYSICIAN: TODD ELKINS, AUTHOR: Todd Elkins DOADM. DATE: 08/31/20 MR#: [id number] NOTE DATE: 09/02/20 RM#: [id number] TIME: 1218 : 65SubjectiveEvents Since Last EntryPatient seen and examined in room today. Patient stated his breathingdemonstrated improvement since admission. No fever or chill.ObjectiveVital SignsVital Signs-24 HRS09/01 1857 2030 0241 0630Temp 97.7 97.8 97.6 97.2Pulse 59 54 77 68 52Resp 21 20 16 16B/P 112/58 117/65 117/65 115/66 114/90B/P MeanPulse Ox 98 96 95 97O2 DeliveryO2 Flow BbktWcW66709/02 1035Temp 98.1Pulse 52 47Resp 19B/P 106/60 108/60B/P MeanPulse Ox 97O2 DeliveryO2 Flow VxtfDhK2Ruvvls/OutputIntake/Output Summary 24 hours09/01 1900 09/02 0700Intake Total 720 1490Output TotalBalance 720 1490Intake, [...] HCl (VITAMIN B1) 100 MG DAILY POTiotropium [place] (Spiriva) 1 puffDAILY INHInsulin Aspart (Humalog Insulin) [...] no lymphadenopathyPsych/Mental Status normal affectResultsLaboratory DataRecent Labs-24 hours09/01233 1706 2026 0436ChemistrySodium (136 - 147 mmol/L) [...] x10E3/uL) 0.01Nucleated RBC % (auto) (0 %) 001/273993CisjrxlonDkeodvc (70 - 110 mg/dL) 347 XWhxigdvfdehiLujnaagewpto29/31 0800 BLOOD: Blood Culture - RECD1 0755 BLOOD: Blood Culture - RECDAssessment/PlanProblem List1. Pneumonia due to COVID-19 virusA&P-Continue IV remdesivir, IV Decadron, and PO azithromycin2. Chest painStatus ResolvedA&P-No recurrence.3. Severe sepsisStatus ResolvedA&P-Continue antiviral therapy and antibiotic.4. DiabetesA&P-Continues on insulin sliding scale5. Chronic alcohol abuseA&P-Continue thiamine, folic acid and multivitamin-No sign of alcohol withdrawal.6. HyperlipidemiaA&P-Continue statin7. HypertensionA&P-Continue Coreg8. DepressionA&PContinue Prozac9. BPH (benign prostatic hyperplasia)A&PContinue Eernsj39. HUMAN RHINOVIRUSA&P-Continue supportive care11 . Elevated d-dimerA&P- CTA ruled out PE. Lower extremity Doppler came back negative for DVT.- Patient has Covid.Resuscitation status Full codeVTE ProphylaxisVTE Prophylaxis: Continue Lovenox.DATE SIGNED: 09/10/20 Electronically SignedTIME SIGNED: 2012 TODD ELKINS DO Name Value Range Interpretation Code Description Data Zahraa rce(s) Supporting Document(s) ID Date Data Source [id number] 09/02/2020 05:55:00 AM EST [facility] Name Value Range Interpretation Code Description Data Zahraa rce(s) Supporting Document(s) TROPI < 0.015 ng/mL 0.000-0.079 [facility] ID Date Data Source [id number] 09/02/2020 05:55:00 AM EST [facility] COMMENTS TO LAB: CRITICAL HIGH ON GLUCOM ETER Name Value Range Interpretation Code Description Data Zahraa rce(s) Supporting Document(s) GLU 347 mg/dL 70-110 [facility] Patients taking Sulfasalazine may have f alsely depressedGlucose levels. Patients taking Sulfapyridine may havefalsely elevated Glucose levels. Patients should be drawnfor Glucose before the initial administration of eitherdrug. ID Date Data Source [id number] 09/02/2020 05:55:00 AM EST [facility] Name Value Range Interpretation Code Description Data Zahraa rce(s) Supporting Document(s) C-REACTIVE PROT 11.00 mg/dL 0.0-0.49 H [facility] ital ID Date Data Source [id number] 09/02/2020 05:55:00 AM EST [facility] Name Value Range Interpretation Code Description Data Zahraa rce(s) Supporting Document(s) MAGNESIUM 1.6 mg/dL 1.6-2.6 [facility] ID Date Data Source [id number] 09/02/2020 05:55:00 AM EST [facility] Name Value Range Interpretation Code Description Data Zahraa rce(s) Supporting Document(s) GLU 347 mg/dL 70-110 [facility] Patients taking Sulfasalazine may have f alsely depressedGlucose levels. Patients taking Sulfapyridine may havefalsely elevated Glucose levels. Patients should be drawnfor Glucose before the initial administration of eitherdrug. BUN 21 mg/dL 7-23 [facility] CRE 1.040 mg/dL 0.500-1.300 [facility] GFR > 60 mL/min [facility] CHLORIDE 105 mmol/L 99-110 [facility] NA 136 mmol/L 136-147 [facility] POTASSIUM 4.5 mmol/L 3.5-5.1 [facility] TCO2 21 mmol/L 20-33 [facility] ANION GAP 14.5 10.0-20.0 [facility] CA 6.9 mg/dL 8.3-10.7 [facility] ALKALINE PHOS 84 U/L 45-117 [facility] TP 5.1 g/dL 6.0-7.8 [facility] ALB 2.4 g/dL 3.5-5.0 [facility] ESRD Dialysis patient Albumin reference range: 2.9-4.4 g/dL GL 2.7 g/dL 2.3-3.5 [facility] A/G 0.9 1.0-2.5 [facility] T. BILIRUBIN 0.5 mg/dL 0.1-1.1 [facility] [place] Total Bilirubin is n ot recommended forpatients undergoing treatment with eltrombopag (Promacta)due to the potential for falsely elevated results. ALTI 21 U/L 6-54 [facility] Patients taking Sulfasalazine and/or Sul fapyridine may havefalsely depressed ALT levels. Patients should be drawn forALT before the initial administration of either drug. AST 18 U/L 8-40 [facility] Patients taking Sulfasalazine and/or Sul fapyridine may havefalsely depressed AST levels. Patients should be drawn forAST before the initial administration of either drug. ID Date Data Source [id number] 09/02/2020 05:41:00 AM EST [facility] Name Value Range Interpretation Code Description Data [facility](s) Supporting Document(s) D-DIMER 4.40 mg/L [facility] CUT OFF VALUE = 0.5 mg/L The negative pr edictive value for DVT or PE is at 98% whenthe result is below the cut off. ID Date Data Source [id number] 09/02/2020 05:15:00 AM EST [facility] Name Value Range Interpretation Code Description Data Zahraa rce(s) Supporting Document(s) WBC 12.16 x10E3/uL 4.0-10.5 [facility] RBC 3.69 x10E6/uL 4.70-6.00 [facility] Hemoglobin 11.3 g/dL 14.0-18.0 [facility] Hematocrit 34.5 % 42.0-52.0 [facility] MCV 93.5 fL 81.0-99.0 [facility] MCH 30.6 pg 27.0-31.0 [facility] MCHC 32.8 g/dL 32.7-35.6 [facility] RDW 14.0 % 11.5-14.0 [facility] Platelet count 70 x10E3/uL 150-450 L [facility] MPV 12.2 fl 6.9-9.5 [facility] Neutrophils 89.4 % 34-64 [facility] Lymphocytes 6.2 % 25-45 L [facility] Monocytes 3.4 % 1.7-10.6 [facility] Eosinophils 0.2 % 0.4-7.0 L [facility] Basophils 0.1 % 0.1-2.0 [facility] Imm. Gran. 0.7 % 0.1-2.0 [facility] Abs. Neutro. 10.88 x10E3/uL 1.2-7.6 [facility] Abs. Lymph. 0.75 x10E3/uL 1.0-3.5 [facility] Abs. Morton. 0.41 x10E3/uL 0.1-1.0 [facility] Abs. Eosin. 0.02 x10E3/uL 0.1-0.7 [facility] Abs. Baso. 0.01 x10E3/uL 0.0-0.1 [facility] Abs. Imm. Gran. 0.09 x10E3/uL 0.0-0.1 [facility] spital ANRBC% 0 % 0 [facility] ID Date Data Source [id number] 09/01/2020 08:31:00 PM EST [facility] Name Value Range Interpretation Code Description Data Zahraa rce(s) Supporting Document(s) FGLU 380 mg/dL 70-110 [facility] ID Date Data Source [id number] 09/01/2020 07:03:00 PM EST [facility] Name Value Range Interpretation Code Description Data Zahraa rce(s) Supporting Document(s) FGLU 377 mg/dL 70-110 [facility] ID Date Data Source [id number] 09/01/2020 04:09:00 PM EST [facility] Exam Number: [id number] OF EXAMINATIO N: 09/01/2020 18:02 ESTU/S VENOUS [...] Value Range Interpretation Code Description Data Zahraa e(s) Supporting Document(s) ID Date Data Source [id number] 09/01/2020 12:41:00 PM EST [facility] Name Value Range Interpretation Code Description Data Zahraa rce(s) Supporting Document(s) FGLU 288 mg/dL 70-110 [facility] ID Date Data Source [id number] 09/01/2020 11:40:00 AM EST [facility] [address] [id number] NOTEPATIENT NAME: JANICE VERMA PHYSICIAN: AMADO BAXTER MDAUTHOR: Noe Mendez. DATE: 08/31/20 MR#: [id number] NOTE DATE: 09/01/20 #: [id number] TIME: 1151 : 65See AddendumSubjectiveEvents Since [...] MeanPulse Ox 96 97 95O2 DeliveryO2 Flow HmtrKqC35 847469Xxmp 97.4Pulse 57Resp 18B/P 109/53B/P MeanPulse Ox 96O2 DeliveryO2 Flow UjwbKwQ1Xazlbj/OutputIntake/Output Summary 24 hours08/31 1900 09/01 0700Intake Total [...] HCl (VITAMIN B1) 100 MG DAILY POTiotropium [place] (Spiriva) 1 puffDAILY INHInsulin Aspart (Humalog Insulin) [...] no lymphadenopathyPsych/Mental Status normal affectResultsLaboratory DataRecent Labs-24 hours08/31733273 3722 0455ChemistrySodium (136 - 147 mmol/L) 137Potassium (3.5 [...] 10 %) 4Platelet Morphology DECREASEDRBC Morphology 1+ PNVBXWMCZPHT2309/01 0522ChemistryPOC Glucose (70 - 110 mg/dL) 399 HHemoglobin A1c PendingRadiologyEXAM# TYPE/EXAM [id number] CT/CT ANGIO CHEST WITH IV FOR PDATE [...] pulmonary embolus.PAGE 1 Signed Report Printed From [facility], [place] [id number] CONSULTATIONDate of : 1965 Name: JANICE VERMA MMedrec Number: [id number] Phys: GISSELLE KAUFMAN POLYSOM TECH-CExam Date: 08/31/2020 Location: 2EASTProcedure: ANGIOCXRPE, CT ANGIO CHEST WITH IV Rad Numb: [id number] \\EXAM# TYPE/EXAM [id number] CT/CT ANGIO CHEST WITH IV FOR PElectronically [...] satisfactory.8. DepressionA&PContinue Prozac9. BPH (benign prostatic hyperplasia)A&PContinue Qubsex44. HUMAN RHINOVIRUSA&PSupportive care.11. Elevated d-dimerA&PCTA ruled out PE. Doubt DVT in lower extremities however ultrasound ispending. This will need follow-up.Additional NotesDVT prophylaxis with LovenoxHe is on PPI for GI prophylaxis given his steroid useTotal time spent 35 minutesDisposition plan discharge after remdesivir complete.Resuscitation status Full codePlan discussed with patientCase discussed with caser up, nursing staffADDENDUM: Gisselle Mendez on 09/01/20 at 1749EXAM# TYPE/EXAM [id number] US/U/S VENOUS DOPP ARM/LEG BILADATE OF EXAMINATION: [...] extremity.Braun's cyst.DATE SIGNED: 09/01/20 Electronically SignedTIME SIGNED: 1743 GISSELLE BALDEMAR KAUFMAN Name Value Range Interpretation Code Description Data Zahraa rce(s) Supporting Document(s) ID Date Data Source [id number] 09/01/2020 05:29:00 AM EST [facility] Name Value Range Interpretation Code Description Data Zahraa rce(s) Supporting Document(s) FGLU 399 mg/dL 70-110 [facility] ID Date Data Source [id number] 09/01/2020 11:54:00 AM EST [facility] COMMENTS TO LAB: off am labs Name Value Range Interpretation Code Description Data [facility] rce(s) Supporting Document(s) HbA1C 7.50 % 3.8-5.6 [facility] Suggested Diagnosis HbA1c% Diabet ic >/= 6.5Prediabetes 5.7%-6.4%Normal < 5.7% ID Date Data Source [id number] 09/01/2020 06:26:00 AM EST [facility] Name Value Range Interpretation Code Description Data Zahraa rce(s) Supporting Document(s) WBC 10.21 x10E3/uL 4.0-10.5 [facility] l RBC 3.49 x10E6/uL 4.70-6.00 [facility] Hemoglobin 10.9 g/dL 14.0-18.0 [facility] Hematocrit 32.9 % 42.0-52.0 [facility] MCV 94.3 fL 81.0-99.0 [facility] MCH 31.2 pg 27.0-31.0 [facility] MCHC 33.1 g/dL 32.7-35.6 [facility] RDW 14.3 % 11.5-14.0 [facility] Platelet count 70 x10E3/uL 150-450 [facility] MPV 11.7 fl 6.9-9.5 [facility] SEG. NEUTROPHIL 82 % 34-64 [facility] BAND 8 % 5-11 [facility] LYMPHOCYTE 6 % 25-45 [facility] MONOCYTES 4 % 2-10 [facility] PLATELET MORPH DECREASED N [facility] PLATELET MORPHOLOGY EXPECTED RESULT:NORM AL = NO REMARKABLE MORPHOLOGYAny findings other than Normal will be reported and areconsidered Abnormal. The significance of Abnormal findingsare to be clinically correlated by the provider. RBC MORPHOLOGY 1+ ANISOCYTOSIS [facility] ospital RBC MORPHOLOGY EXPECTED RESULTS: NORMAL = NORMOCHROMIC, NORMOCYTIC CELLSAny findings other than Normal will be reported and areconsidered Abnormal. The significance of Abnormalfindings are to be clinically correlated by the provider. ID Date Data Source [id number] 09/01/2020 05:52:00 AM [facility] Name Value Range Interpretation Code Description Data Zahraa rce(s) Supporting Document(s) GLU 350 mg/dL 70-110 [facility] Patients taking Sulfasalazine may have f alsely depressedGlucose levels. Patients taking Sulfapyridine may havefalsely elevated Glucose levels. Patients should be drawnfor Glucose before the initial administration of eitherdrug. BUN 20 mg/dL 7-23 [facility] CRE 1.210 mg/dL 0.500-1.300 [facility] GFR > 60 mL/min [facility] CHLORIDE 106 mmol/L 99-110 [facility] NA 137 mmol/L 136-147 [facility] POTASSIUM 4.1 mmol/L 3.5-5.1 [facility] TCO2 21 mmol/L 20-33 [facility] ANION GAP 14.1 10.0-20.0 [facility] CA 7.0 mg/dL 8.3-10.7 [facility] ALKALINE PHOS 71 U/L 45-117 [facility] TP 5.2 g/dL 6.0-7.8 [facility] ALB 2.6 g/dL 3.5-5.0 [facility] ESRD Dialysis patient Albumin reference range: 2.9-4.4 g/dL GL 2.6 g/dL 2.3-3.5 [facility] A/G 1.0 1.0-2.5 [facility] T. BILIRUBIN 0.4 mg/dL 0.1-1.1 [facility] [place] Total Bilirubin is n ot recommended forpatients undergoing treatment with eltrombopag (Promacta)due to the potential for falsely elevated results. ALTI 22 U/L 6-54 [facility] Patients taking Sulfasalazine and/or Sul fapyridine may havefalsely depressed ALT levels. Patients should be drawn forALT before the initial administration of either drug. AST 13 U/L 8-40 [facility] Patients taking Sulfasalazine and/or Sul fapyridine may havefalsely depressed AST levels. Patients should be drawn forAST before the initial administration of either drug. ID Date Data Source [id number] 09/01/2020 05:49:00 AM EST [facility] Name Value Range Interpretation Code Description Data Zahraa rce(s) Supporting Document(s) C-REACTIVE PROT 15.50 mg/dL 0.0-0.49 H [facility] ital ID Date Data Source [id number] 09/01/2020 05:49:00 AM EST [facility] Name Value Range Interpretation Code Description Data Z[facility]raa rce(s) Supporting Document(s) MAGNESIUM 1.9 mg/dL 1.6-2.6 [facility] ID Date Data Source [id number] 08/31/2020 08:22:00 PM EST [facility] Exam Number: [id number] OF EXAMINATIO N: 08/31/2020 18:02 ESTCT ANGIO [...] rce(s) Supporting Document(s) ID Date Data Source [id number] 08/31/2020 04:57:00 PM EST [facility] Name Value Range Interpretation Code Description Data Zahraa rce(s) Supporting Document(s) FGLU 349 mg/dL 70-110 [facility] ID Date Data Source [id number] 08/31/2020 01:26:00 PM EST [facility] Name Value Range Interpretation Code Description Data Zahraa rce(s) Supporting Document(s) FGLU 231 mg/dL 70-110 [facility] ID Date Data Source [id number] 09/05/2020 12:42:00 PM EST [facility] Name Value Range Interpretation Code Description Data Zahraa rce(s) Supporting Document(s) [facility] ID Date Data Source [id number] 09/05/2020 12:42:00 PM EST [facility] Name Value Range Interpretation Code Description Data Zahraa rce(s) Supporting Document(s) [facility] ID Date Data Source [id number] 08/31/2020 08:42:00 AM EST [facility] Name Value Range Interpretation Code Description Data [facility] rce(s) Supporting Document(s) LACTIC ACID 2 2.0 MMOL/L 0.4-2.0 [facility] Date Data Source [id number] 08/31/2020 05:54:00 AM EST [facility] Name Value Range Interpretation Code Description Data Z[facility]raa rce(s) Supporting Document(s) FGLU 301 mg/dL 70-110 [facility] ID Date Data Source [id number] 08/31/2020 05:29:00 AM EST [facility] Name Value Range Interpretation Code Description Data [facility] rce(s) Supporting Document(s) WBC 13.84 x10E3/uL 4.0-10.5 [facility] RBC 3.77 x10E6/uL 4.70-6.00 [facility] Hemoglobin 11.6 g/dL 14.0-18.0 [facility] Hematocrit 34.9 % 42.0-52.0 L [facility] MCV 92.6 fL 81.0-99.0 [facility] MCH 30.8 pg 27.0-31.0 [facility] MCHC 33.2 g/dL 32.7-35.6 [facility] RDW 14.4 % 11.5-14.0 [facility] Platelet count 82 x10E3/uL 150-450 [facility] MPV 11.8 fl 6.9-9.5 [facility] ANRBC% 0 % 0 [facility] SEG. NEUTROPHIL 82 % 34-64 [facility] BAND 5 % 5-11 [facility] LYMPHOCYTE 8 % 25-45 [facility] MONOCYTES 5 % 2-10 [facility] PLATELET MORPH DECREASED N [facility] PLATELET MORPHOLOGY EXPECTED RESULT:NORM AL = NO REMARKABLE MORPHOLOGYAny findings other than Normal will be reported and areconsidered Abnormal. The significance of Abnormal findingsare to be clinically correlated by the provider. ID Date Data Source [id number] 08/31/2020 05:11:00 AM EST [facility] Name Value Range Interpretation Code Description Data Z[facility]raa rce(s) Supporting Document(s) MAGNESIUM 1.7 mg/dL 1.6-2.6 [facility] ID Date Data Source [id number] 08/31/2020 05:11:00 AM EST [facility] Name Value Range Interpretation Code Description Data [facility]a rce(s) Supporting Document(s) MELISSA 2.7 mg/dL 2.5-4.5 [facility] ID Date Data Source [id number] 08/31/2020 05:11:00 AM EST [facility] Name Value Range Interpretation Code Description Data Z[facility]raa rce(s) Supporting Document(s) TROPI < 0.015 ng/mL 0.000-0.079 N [facility] ID Date Data Source [id number] 08/31/2020 05:11:00 AM EST [facility] Name Value Range Interpretation Code Description Data [facility]a rce(s) Supporting Document(s) C-REACTIVE PROT 11.70 mg/dL 0.0-0.49 [facility] ital ID Date Data Source [id number] 08/31/2020 05:11:00 AM EST [facility] Name Value Range Interpretation Code Description Data Z[facility]raa rce(s) Supporting Document(s) GLU 296 mg/dL 70-110 [facility] Patients taking Sulfasalazine may have f alsely depressedGlucose levels. Patients taking Sulfapyridine may havefalsely elevated Glucose levels. Patients should be drawnfor Glucose before the initial administration of eitherdrug. BUN 18 mg/dL 7-23 [facility] CRE 1.220 mg/dL 0.500-1.300 [facility] GFR > 60 mL/min [facility] CHLORIDE 105 mmol/L 99-110 [facility] NA 136 mmol/L 136-147 [facility] POTASSIUM 4.7 mmol/L 3.5-5.1 [facility] TCO2 22 mmol/L 20-33 [facility] ANION GAP 13.7 10.0-20.0 [facility] CA 7.2 mg/dL 8.3-10.7 [facility] ALKALINE PHOS 71 U/L 45-117 [facility] TP 6.0 g/dL 6.0-7.8 [facility] ALB 2.9 g/dL 3.5-5.0 [facility] ESRD Dialysis patient Albumin reference range: 2.9-4.4 g/dL GL 3.1 g/dL 2.3-3.5 [facility] A/G 0.9 1.0-2.5 [facility] T. BILIRUBIN 0.4 mg/dL 0.1-1.1 [facility] [place] Total Bilirubin is n ot recommended forpatients undergoing treatment with eltrombopag (Promacta)due to the potential for falsely elevated results. ALTI 37 U/L 6-54 [facility] Patients taking Sulfasalazine and/or Sul fapyridine may havefalsely depressed ALT levels. Patients should be drawn forALT before the initial administration of either drug. AST 27 U/L 8-40 [facility] Patients taking Sulfasalazine and/or Sul fapyridine may havefalsely depressed AST levels. Patients should be drawn forAST before the initial administration of either drug. ID Date Data Source [id number] 08/31/2020 05:05:00 AM EST [facility] Name Value Range Interpretation Code Description Data Zahraa rce(s) Supporting Document(s) TROPI < 0.015 ng/mL 0.000-0.079 [facility] [id number] 08/31/2020 04:57:00 AM EST [facility] Name Value Range Interpretation Code Description Data Zahraa rce(s) Supporting Document(s) LACTIC ACID JANIA 2.6 mmol/L 0.4-2.0 H [facility] ID Date Data Source [id number] 08/31/2020 04:56:00 AM [facility] Name Value Range Interpretation Code Description Data Zahraa rce(s) Supporting Document(s) D-DIMER 1.79 mg/L [facility] CUT OFF VALUE = 0.5 mg/L The negative pr edictive value for DVT or PE is at 98% whenthe result is below the cut off. ID Date Data Source [id number] 08/31/2020 03:33:00 AM [facility] [address] [address]FOWYBOL AND PHYSICALPATIENT NAME: JANICE VERMA MR#: [id number] PHYSICIAN: AMADO BAXTER MDAUTHOR: Amado Baxter MD DATE: 08/31/20 RM#: [id number] & PHYSICAL DATE: 08/31/20 : 65EVALUATION TIME: 0438HistoryChief Complaint/Admit ReasonChest pain and shortness of breathHistory of Presenting [id number] male with a past medical history of diabetes, chronicalcohol abuse, cirrhosis, depression, GERD, BPH, hypertension, hematemesispresented to the ED at [facility] with complaints of centrally locatedchest pain scribed as dull and sharp 8 out of 10 and shortness of breath whichstarted yesterday but has worsened to the point where he needed to be evaluatedin the ER. Reported to me chest pain does not radiate and there are nodiaphoresis. There was some nausea and bilious vomiting x1. EKG at [facility] showed nonspecific ST/T wave changes, troponin was negative. At [facility] patient was found on chest x-ray and CT of the chest without IVcontrast to have multi focal consolidations consistent with pneumonia likelyCOVID-19 pulmonary disease. Patient tested positive for COVID-19, and humanrhinovirus also found with severe sepsis given IV fluids at [facility].Patient's O2 saturation ranges in the mid 90s on room air. Temperature of99.5. Lactic acid of 4.8. Ferritin 171. VBG with pH of 7.3, PCO2 of 30.7,PO2 of 58. Denies any abdominal pain, palpitations, diarrhea, h eadache,dizziness or lightheadedness. Patient was given remdesivir, dexamethasone,ceftriaxone, azithromycin, Xopenex, aspirin, morphine and IV fluids at [facility] and transferred to [facility] for further management.Past Medical/Surgical HistoryPast Medical/Surgical HistoryMedical ProblemsBPH (benign prostatic hyperplasia)Chest painChronic alcohol abuseDepressionDiabetesHUMAN RHINOVIRUSHyperlipidemiaHypertensionPneumonia due to COVID-19 virusSevere sepsisReconciled Home Med ListSee Reconciled Home Medication ListAllergiesCoded Allergies:niacin (Intermediate, FACIAL REDDNESS/ITCHING 04/17/17)Family history Father from an [place] at age of 68.Social History no recreational [...] polyuria.NeurologicalDenies: dizziness, seizure.PsychDenies: agitation, anxiety.ExamVital SignsVital Signs-24 HRS12/471209Hngs 97.8Pulse 75Resp 17B/P 118/72B/P MeanPulse Ox 94O2 DeliveryO2 Flow QvtiQvT3Thsnrrlp ExaminationGeneral Appearance no acute distress, afebrile, alert, [...] Status normal affectData ReviewLaboratory DataLaboratory data from [facility] on 08/30/2020.WBC 19.7, hemoglobin 12.9 hematocrit [...] and human rhinovirus.Imaging1. Chest x-ray report from [facility] done 08/30/2020:Findings:Patchy bilateral lower lobe infiltrates left greater than right most concerningfor multifocal pneumonia. COVID-19 pulmonary disease cannot be excluded. Noeffusion. No pneumothorax. The sternum and cardiac silhouette are normal.Impression:Findings consistent with multifocal pneumonia. Patient should be evaluated forCOVID-[address] of the chest without IV contrast done at [facility] on 08/30/2020.Findings:Diffuse patchy bilateral areas of [...] given 324 mg of chewable aspirin at [facility]. EKG withnonspecific ST-T wave changes. Troponin was negative at [facility].-We will cycle troponin- Monitor on telemetry every 4 vital signs.-Morphine as needed for pain4. DiabetesA&PPatient placed on insulin sliding scale. Monitor fingersticks.5. Chronic alcohol abuseA&PChronic alcohol abuse. Last drink yesterday.-Place patient on CIWA protocol-Start folic acid, thiamine. Will hold a multivitamin as patient does haveallergies to niacin.6. HyperlipidemiaA&PContinue with statin7. HypertensionA&PTinea with beta-yuni and monitor blood pressure. Blood pressure currentlyacceptable.8. DepressionA&PContinue fluoxetine and quetiapine9. BPH (benign prostatic hyperplasia)A&PContinue with Flomax.10. HUMAN RHINOVIRUSA&PSupportive care.Resuscitation status Full codePlan discussed with patientCase discussed with nursing staffCopies ToCopies to Family Provider: ANNE-MARIE BRENNAN FNPSmoking Cessation Counseling* I have counseled the patient on the dangers of tobacco use for 4 minutes.* The patient was advised to quit tobacco use. I reviewed the variousstrategies of quitting with the patient.VTE ProphylaxisVTE Prophylaxis: Lovenox.CQM VTE HISTORYVTE HISTORYPrior VTE? NoDATE SIGNED: 09/03/20 Electronically SignedTIME SIGNED: 0803 AMADO BAXTER MD Name Value Range Interpretation Code Description Data Zahraa rce(s) Supporting Document(s) ID Date Data Source [id number] 08/30/2020 09:53:00 PM [facility] TSYS[facility] [id number] Name Value Range Interpretation Code Description Data Zahraa rce(s) Supporting Document(s) LACTIC ACID 2.3 mmol/L 0.4-2.0 H [facility] ID Date Data Source [id number] 08/30/2020 06:54:00 PM [facility] [...] Value Range Interpretation Code Description Data Zahraa [facility](s) Supporting Document(s) ID Date Data Source [id number] 08/30/2020 05:57:00 PM [facility] [...] rce(s) Supporting Document(s) ID Date Data Source [id number] 08/30/2020 06:07:00 PM EST [facility] TSYSORDER [id number] Name Value Range Interpretation Code Description Data Zahraa rce(s) Supporting Document(s) PH 7.33 7.31-7.41 [facility] VENOUS PCO2 30.7 mmHg 41-51 L [facility] VENOUS PO2 58 mmHg 35-42 H [facility] VENOUS BLODD O2 SATURATION 81.5 % 68-77 H [facility] VENOUS BLOOD HCO3 15.6 meq/L 24.0-25.0 L [facility] VENOUS BASE EXCESS -8.8 -3.0-3.0 [facility] VENOUS BLOOD CO2 16.6 mmol/L 23.0-32.0 L [facility] ID Date Data Source [id number] 09/06/2020 11:33:00 AM EST [facility] Name Value Range Interpretation Code Description Data Zahraa rce(s) Supporting Document(s) [facility] ID Date Data Source [id number] 09/06/2020 11:33:00 AM EST [facility] Name Value Range Interpretation Code Description Data Zahraa rce(s) Supporting Document(s) [facility] ID Date Data Source [id number] 08/30/2020 03:35:00 PM EST [facility] Name Value Range Interpretation Code Description Data Zahraa rce(s) Supporting Document(s) SARS COV2 TRP [facility] This lab was ordered by [facility] and reported by [facility]. ID Date Data Source [id number] 08/30/2020 05:19:00 PM EST [facility] TSYSORDER [id number] Name Value Range Interpretation Code Description Data Zahraa rce(s) Supporting Document(s) FERRITIN 171 ng/mL 26-388 [facility] ID Date Data Source [id number] 08/30/2020 05:11:00 PM EST [facility] TSYSORDER [id number] Name Value Range Interpretation Code Description Data Zahraa rce(s) Supporting Document(s) LACTIC ACID 4.8 mmol/L 0.4-2.0 H [facility] ID Date Data Source [id number] 08/30/2020 05:06:00 PM EST [facility] TSYSORDER [id number] Name Value Range Interpretation Code Description Data Zahraa rce(s) Supporting Document(s) C REACTIVE PROTEIN 11.5 mg/L 0.0-3.0 H [facility] ID Date Data Source [id number] 08/30/2020 05:06:00 PM EST [facility] TSYSORDER [id number] Name Value Range Interpretation Code Description Data Zahraa rce(s) Supporting Document(s) CREATINE PHOSPHOKINASE 164 U/L 39-308 [facility] ID Date Data Source [id number] 08/30/2020 04:28:00 PM EST [facility] TSYSORDER [id number] Name Value Range Interpretation Code Description Data Zahraa rce(s) Supporting Document(s) GLUCOSE 280 mg/dL 74-106 H [facility] BLOOD UREA NITROGEN 20 mg/dL 7-18 H [facility] ital CREATININE 1.25 mg/dL 0.7-1.3 [facility] SODIUM 130 mmol/L 136-145 L [facility] POTASSIUM 4.8 mmol/L 3.5-5.1 [facility] CHLORIDE 95 mmol/L 98-107 L [facility] CO2 18 mmol/L 21-32 L [facility] CALCIUM 8.4 mg/dL 8.5-10.1 L [facility] ANION GAP 17.0 mmol/L 5-12 H [facility] GLOMERULAR FILTRATION RATE 60 mL/min [facility] GFR IS CALCULATED IN mL/min/1.73m2 VINICIUS L FUNCTION: >90MILDLY DECREASED: 60-89MILDY TO MODERATELY DECREASED: 45-59 MODERATELY TO SEVERELY DECREASED: 30-44SEVERELY DECREASED: 15-29RENAL FAILURE: <15 AST 46 U/L 15-37 H [facility] ALT 45 U/L 12-78 [facility] ALKALINE PHOSPHATASE 86 U/L 46-116 [facility] pital TOTAL BILIRUBIN 0.4 mg/dL 0.2-1.0 [facility] TOTAL PROTEIN 7.3 g/dl 6.4-8.2 [facility] ALBUMIN 3.8 gm/dL 3.4-5.0 [facility] ID Date Data Source [id number] 08/30/2020 04:21:00 PM EST [facility] TSYSORDER [id number] Name Value Range Interpretation Code Description Data Zahraa rce(s) Supporting Document(s) FREE T4 1.0 ng/dL 0.76-1.46 [facility] ID Date Data Source [id number] 08/30/2020 04:21:00 PM EST [facility] TSYSORDER [id number] Name Value Range Interpretation Code Description Data Zahraa rce(s) Supporting Document(s) TSH 0.868 uIU/mL 0.36-3.74 [facility] ID Date Data Source [id number] 08/30/2020 04:19:00 PM [facility] l Name Value Range Interpretation Code Description Data Zahraa rce(s) Supporting Document(s) PARTIAL THROMBOPLASTIN TIME 26.0 SECONDS 21.2-27.3 [facility] ID Date Data Source [id number] 08/30/2020 04:19:00 PM [facility] l Name Value Range Interpretation Code Description Data Zahraa rce(s) Supporting Document(s) PROTHROMBIN TIME (PATIENT) 10.9 SECONDS 9.1-11.6 [facility] INR 1.05 0.87-1.06 [facility] ID Date Data Source [id number] 08/30/2020 03:16:00 PM [facility] TSYSORDER [id number] Name Value Range Interpretation Code Description Data Zahraa rce(s) Supporting Document(s) NEUTROPHILS 87 % 50-80 H [facility] BAND 6 % 0-5 H [facility] LYMPHOCYTE 4 % 25-50 L [facility] MONOCYTE 3 % 2.0-10.0 [facility] PLATELET ESTIMATE DECREASED NORMAL [facility] RBC MORPHOLOGY EXPECTED RESULTS:NORMAL= NORMOCHROMIC, NORMOCYTIC CELLSAbnormal Morphologic Findings > or = to 1+ are reported.Clinicopathologic correlation by the provider is required todetermine significance of finding. ID Date Data Source [id number] 08/30/2020 04:17:00 PM [facility] TSYSORDER [id number] Name Value Range Interpretation Code Description Data Zahraa rce(s) Supporting Document(s) WHITE BLOOD COUNT 19.7 K/mm3 4.0-10.0 H [facility] RED BLOOD COUNT 4.16 M/mm3 4.50-6.00 L [facility] l HEMOGLOBIN 12.9 gm/dL 14.0-18.0 L [facility] HEMATOCRIT 37.6 % 42.0-54.0 L [facility] MEAN CELL VOLUME 90.4 fl 80-96 [facility] l MEAN CORPUSCULAR HEMOGLOBIN 31.0 pg 27.0-31.0 H [facility] MEAN CORPUSCULAR HGB CONC 34.3 g/dl 32.0-36.0 [facility] RED CELL DISTRIBUTION WIDTH 14.0 % 10.0-14.5 [facility] PLATELET COUNT 119 K/mm3 172-450 L [facility] MEAN PLATELET VOLUME 11.4 fl 9.0-13.0 [facility] pital GRAN % 92.7 % 50-80.0 H [facility] IG% 0.3 % 0.0-0.2 H [facility] LYMPH % 2.1 % 25.0-50.0 *L [facility] MONO % 4.9 % 2.0-10.0 [facility] EOS % 0.0 % 0-5.0 [facility] BASO % 0.0 % 0.0-2.0 [facility] GRAN # 18.2 K/mm3 2.0-8.00 *H [facility] IG# 0.1 K/mm3 0.0-0.2 [facility] LYMPH # 0.4 K/mm3 1.0-5.0 L [facility] MONO # 1.0 K/mm3 0.10-1.20 [facility] EOS # 0.0 K/mm3 0.0-0.5 [facility] BASO # 0.0 K/mm3 0.0-0.2 [facility] ID Date Data Source [id number] 08/30/2020 04:45:00 PM EST [facility] TSYSORDER [id number] Name Value Range Interpretation Code Description Data Zahraa rce(s) Supporting Document(s) Adenovirus Not Detected Detected Not [facility]spital Coronavirus 229E Not Detected Detected Not [facility] Coronavirus HKU1 Not Detected Detected Not [facility] Coronavirus NL63 Not Detected Detected Not [facility] Coronavirus OC43 Not Detected Detected Not [facility] Sars Cov 2 DETECTED Detected [facility] Human Metapneumovirus Not Detected Detected [facility] Human Rhinovirus DETECTED Detected [facility] Influenza A Not Detected Detected [facility] Influenza B Not Detected Detected [facility] Parainfluenza Virus 1 Not Detected Detected [facility] Parainfluenza Virus 2 Not Detected Detected Not [facility] Parainfluenza Virus 3 Not Detected Detected Not [facility] Parainfluenza Virus 4 Not Detected Detected Not [facility] Respiratory Syncytial Virus Not Detected Detected Not [facility] Bordetella parapertus ([id number]) Not Detected Detected Not [facility] Bordetella pertussis (ptxP) Not Detected Detected Not [facility] Chlamydia pneumoniae Not Detected Detected Not [facility] Mycoplasma pneumoniae Not Detected Detected Not [facility] The Above results have been determined b y using the [employer] Exam Prep Platform[facility]eman [facility] FilmArray system.FilmArray is an automated in vitro diagnostic system thatutilizes nested multiplex Polymerase Chain Reaction (PCR)and high-resolution melting analysis to detect and identifymultiple nucleic acid targets from clinical specimens. ID Date Data Source [id number] 08/30/2020 04:28:00 PM EST [facility] TSYSORDER [id number] Name Value Range Interpretation Code Description Data Zahraa rce(s) Supporting Document(s) MAGNESIUM 1.8 mg/dL 1.8-2.4 [facility] ID Date Data Source [id number] 08/30/2020 04:28:00 PM EST [facility] TSYSORDER [id number] Name Value Range Interpretation Code Description Data Zahraa rce(s) Supporting Document(s) TROPONIN I < 0.017 ng/mL 0.0-0.056 [facility] ID Date Data Source [id number] 08/30/2020 04:28:00 PM EST [facility] TSYSORDER [id number] Name Value Range Interpretation Code Description Data Zahraa rce(s) Supporting Document(s) LIPASE 123 U/L 73-393 [facility] ID Date Data Source [id number] 08/18/2020 11:00:00 PM EST [facility] Name Value Range Interpretation Code Description Data Zahraa rce(s) Supporting Document(s) SARS coronavirus 2 RNA [Presence] in Res piratory specimen by DILLON with probe detection [facility] This lab was ordered by [facility] a nd reported by [facility]. ID Date Data Source [id number] 08/09/2020 09:20:00 AM EST [facility] Name Value Range Interpretation Code Description Data Zahraa rce(s) Supporting Document(s) SARS coronavirus 2 RNA [Presence] in Res piratory specimen by [facility]ILL[facility] with probe detection [facility] This lab was ordered by [facility] a nd reported by [facility]. ID Date Data Source [id number] 07/13/2020 05:03:06 PM EST [facility] Name Value Range Interpretation Code Description Data Zahraa rce(s) Supporting Document(s) Discharge Summary [facility] OEIPFn1xXiRDQxXm42/KXTalSLOgm6FrMYlmZVj9WKpkBWRcG8XhYVZ2oH0tSGS0FUuKRrGlTjIaYFDn lbm [file] ICAgICAgICAgICAgICAgICAgICAgICAgICAgICAgICAgICAgICAgICAgICAgICAgICAgICAgICAgICAg ICAgICAgICAgICAgICAgICAgICAgICAgICAgICAgIC AgDQogICAgICAgICAgICAgICAgICAgICAgICAgICAgICAgICAgICAgICAgICAgICAgICAgICAgICAgIC AgICAgICAgICAgICAgICAgICAgICAgICAgICAgICAgICAgICAgICAgICAgDQogICAgICAgICAgICAgIC AgICAgICAgICAgICAgICAgICAgICAgICAgICAgICAg ICAgICAgICAgICAgICAgICAgICAgICAgICAgICAgICAgICAgICAgICAgICAgICAgICAgICAgDQogICAg ICAgICAgICAgICAgICAgICAgICAgICAgICAgICAgICAgICAgICAgICAgICAgICAgICAgICAgICAgICAg ICAgICAgICAgICAgICAgICAgICAgICAgICAgICAgIC AgICAgDQogICAgICAgICAgICAgICAgICAgICAgICAgICAgICAgICAgICAgICAgICAgICAgICAgICAgIC AgICAgICAgICAgICAgICAgICAgICAgICAgICAgICAgICAgICAgICAgICAgICAgDQogICAgICAgICAgIC AgICAgICAgICAgICAgICAgICAgICAgICAgICAgICAg ICAgICAgICAgICAgICAgICAgICAgICAgICAgICAgICAgICAgICAgICAgICAgICAgICAgICAgICAgDQog ICAgICAgICAgICAgICAgICAgICAgICAgICAgICAgICAgICAgICAgICAgICAgICAgICAgICAgICAgICAg ICAgICAgICAgICAgICAgICAgICAgICAgICAgICAgIC AgICAgICAgDQogICAgICAgICAgICAgICAgICAgICAgICAgICAgICAgICAgICAgICAgICAgICAgICAgIC AgICAgICAgICAgICAgICAgICAgICAgICAgICAgICAgICAgICAgICAgICAgICAgICAgDQogICAgICAgIC AgICAgICAgICAgICAgICAgICAgICAgICAgICAgICAg ICAgICAgICAgICAgICAgICAgICAgICAgICAgICAgICAgICAgICAgICAgICAgICAgICAgICAgICAgICAg DQogICAgICAgICAgICAgICAgICAgICAgICAgICAgICAgICAgICAgICAgICAgICAgICAgICAgICAgICAg ICAgICAgICAgICAgICAgICAgICAgICAgICAgICAgIC OsYWDjJOAcSBWeITz4J0mjHYCvPYNpUM6qJAa3Bb0+OBsINzIuSQZ2yjUpeO7ZMC4vy9LjDRfbFLGkk4 EkHXv9BH7BDJWlGRfrSH8SGKcghq1PRBXjAIQjzYOVt4cuWaPdWPY6YZFaXquzFS5YUVTbB9tonhBlOT UgMCBSIDcgMCBSIDkgMCBSIDExIDAgUiAxMyAwIFIg NO3YPEDsR983lfQlZF9MEh7XAcHbPL0hmi6XGmZzYWRqJbuFNdn7VJeqPL1YwDXpeNLsFcSaDTJZDiJu F7uuc9NsNiJoHDBSSHgcFQ3Wh9SdbFOhFVy+Ub7KSK4ng1IlVUhxFwZwGW6wkd7LDWjAKuBhL8AwiLxq QWCro7VuIBVrAYYTwO6iTNP6WAR0WHP2rMTdIFEsAM g4pactCAOPQYLqnMOpOZ64ScElWmJoCSZ3TJBnVD7qZUofHN2PXRS5OCzwWLRxGTPnF5pIJgKqKLOwBh GvuHsdNX0IHcOqT4LfjbLcqKDqQWMyYGNSKk6+XJzypzYyOivFPfLeREBmz6YqTYz2UM5KYBHfHLzmSK 6SPIYgfJ2qVSdiIB3FZbClSBCtREJMAlPyV26yuUEg CBb0G2VyVbVpXKAjDbrzYZDpAOpiFaWaGTVcYgAuQKlbAQ0+ID4+SHcuFW6AOYmoojEaIHDqGx5DQYNy IUVvXT7wYZOhFRTqV0A7tDkoUWMCOqQpF4anqiuoWS4tLHXyS106vCukzqMeZROaDHEuTg6YOGKvNXE7 YHGbiZMlFjUbTLDUOLwyPS6KxCVqHCU4dV7wXVbmYO GcNSGlN0zQNaKevLrdPY39uIdbroVawYQaIJy+Rz3QWV1to0YtUEb5uwFwJTquDPL2OAstKWXqSAKmQO YqCBN5CZU7HRMRLgRqNRFnSBYyPYjmACMiIRPwew5PKFIeTDVoRWq3YsOgLYXlMZLfMMynFXRoNMT5QJ N9WECxYETbEI0JYuFlOEZzWKIoKHqwTZWhAPMwhx6D PKPlOPRvAio6YsFwHSErYNGtPSzuYIQvAWG6RFb6FGWxUMZuBW4ACqXuKNJhKSzgVBJkOYErXMVzma7E JRDkXHWlWZYnDCEpKBAbAGCiILqwPZMpVCNdSxngDQNaHRQoZP0HIrMfVKAwCOU9GFAkDMFuARGxir9X DMCnESBqRkU4ZhJrRPGkOUEzNVvwPIPtMCW3LllvGD UgGYPkUI5PYpIiXCRrBLh1AtCtKIPsKIZwfk9PHZDlDEJvTYYeWdMwJYOgOCHvETurUCMtUBT1UVi2JC ZrTKJzEE6ZVmByHNJfNSmkJETtDFNhGGMzfg4QIQUeWAUhSNO8KzMrRIJdTOUhWBhoGMEfXIVwElV0BP WpBNZrDH3HOjVmQHPvHwL9JqysXXDtUZDdcc4BQTKc PXSjCJpuQJKmZABxKWPfHNjsVTKsJKSzZmb7PDLrPUJsAE1PNiDgXDQwPyL3MQAiAKYyBMLwky3CIOFa RDTvHmS9EFShDUNtZTLmNRolXEYtFKCvSVA2IYPpMOHxCV6MIgOwODPnZhTpDhMeKGEgJKGgmu5MQRWg MIAvJaKsBQDrKUQuRYPzETmzLPCtOJX8Fro3QYAjYX WvZY6YFnPhWDXuCwG2MqlgVIRnQNLftz0HUWRtAQIaJBj4LIWuKOOvWETjPWtpJPJtVVK4ZaL0CHObUO ZsUO0VWrIvDWYxVeQ3DLYqIYJcJMMwqx6ISJZzHXBdQdh7FpWuVAXyGLAkORhtARIwZJD2AGG0ACSwKI ZgTZ8IEkKhZXjyXYFWRjo4RKgtE0m6CYSrBE2NO8Lq x7PyWlTaQJZHCKhhPK2szuTgAGGwIg8FW2mINeauOxQuKaFlYyG2CJuyCSy4JFMsLZWdFBndVNIeJNN0 WZ2uQWKfMWAfEXD5GrBjQJKnNdQrOwYxGfX0YnZaMFNlHekjXkNoCF7JOh8LXkB4VXU1zURcPo0LEomh FIqHKsHpRL6KHMh= ID Date Data Source [id number] 07/10/2020 12:00:27 PM [facility] Name Value Range Interpretation Code Description Data Zahraa rce(s) Supporting Document(s) Glucose [Mass/volume] in Capillary blood by Glucometer 229 mg/dL 70- [address] [facility] ID Date Data Source [id number] 07/10/2020 09:43:36 AM [facility] Name Value Range Interpretation Code Description Data Zahraa rce(s) Supporting Document(s) Glucose [Mass/volume] in Capillary blood by Glucometer 203 mg/dL 70- 140 [facility] ID Date Data Source [id number] 07/10/2020 04:22:[address] [facility] Value Range Interpretation Code Description Data Zahraa rce(s) Supporting Document(s) Leukocytes [#/volume] in Blood by Automated count 3.9 10*3/uL 4-10 [facility] Erythrocytes [#/volume] in Blood by Automated count 3.40 10*6/uL 4.6- 6.1 [facility] Hemoglobin [Mass/volume] in Blood 10.7 g/dL 13.5-18 [facility] Hematocrit [Volume Fraction] of Blood by Automated count 31.6 % 4 1-53 [facility] Erythrocyte mean corpuscular volume [Entitic volume] by Auto mated count 92.8 fL 80-96 [facility] Erythrocyte mean corpuscular hemoglobin [Entitic mass] by Automated count 31.4 pg 27-33 [facility] Erythrocyte mean corpuscular hemoglobin concentration [Mass/volume] by Automated count 33.8 g/dL 32.0-36.0 [facility] distribution width [Ratio] by Automated count 14.5 % 11.5-14.5 [facility] Platelets [#/volume] in Blood by Automated count 58 10*3/uL 150-400 [facility] Differential cell count method - Blood [facility] Neutrophils/100 leukocytes in Blood by Automated count 59 % [facility] Lymphocytes/100 leukocytes in Blood by Automated count 26 % [facility] Monocytes/100 leukocytes in Blood by Automated count 12 % [facility] Eosinophils/100 leukocytes in Blood by Automated count 2 % [facility] Basophils/100 leukocytes in Blood by Automated count 1 % [facility] Neutrophils [#/volume] in Blood by Automated count 2.31 10*3/uL 1.8-[address] [facility] Lymphocytes [#/volume] in Blood by Automated count 1.02 10*3/uL 1.2-[address] [facility] Monocytes [#/volume] in Blood by Automated count 0.47 10*3/uL 0-0.8 [facility] Eosinophils [#/volume] in Blood by Automated count 0.10 10*3/uL 0-0.5 [facility] Basophils [#/volume] in Blood by Automated count 0.03 10*3/uL 0-0.2 [facility] Nucleated erythrocytes/100 leukocytes [Ratio] in Blood by Automated count 0 /100{WBCs} 0-0 [facility] ID Date Data Source [id number] 07/10/2020 04:44:03 AM [facility] Name Value Range Interpretation Code Description Data Zahraa rce(s) Supporting Document(s) Phosphate [Mass/volume] in Serum or Plasma 2.4 mg/dL 2.5-4.5 [facility] ID Date Data Source [id number] 07/10/2020 04:44:03 AM [facility] Name Value Range Interpretation Code Description Data Zahraa rce(s) Supporting Document(s) Albumin [Mass/volume] in Serum or Plasma by Bromocresol green (BCG) dye binding method 3.2 g/dL 3.5-5.2 [facility] Bil[facility].total [Mass/volume] in Serum or Plasma 0.4 mg/dL <1.2 [facility] Calcium [Mass/volume] in Serum or Plasma 8.0 mg/dL 8.6-10.0 [facility] Chloride [Moles/volume] in Serum or Plasma 107 mmol/L 98-107 [facility] Creatinine [Mass/volume] in Serum or Plasma 0.75 mg/dL 0.70-1.20 [facility] Glucose [Mass/volume] in Serum or Plasma 122 mg/dL 70-140 [facility] Alkaline phosphatase [Enzymatic activity/volume] in Serum or Plasma 55 U/L 40-129 [facility] Potassium [Moles/volume] in Serum or Plasma 3.6 mmol/L 3.4-5.1 [facility] Protein [Mass/volume] in Serum or Plasma 5.1 g/dL 6.4-8.[address] [facility] Sodium [Moles/volume] in Serum or Plasma 141 mmol/L 136-145 [facility] Aspartate aminotransferase [Enzymatic activity/volume] in Serum or Plasma 37 U/L <40 [facility] Urea nitrogen [Mass/volume] in Serum or Plasma 4 mg/dL 6-[address] [facility] Osmolality of Serum or Plasma by calculation 290 mosm/kg 275-300 [facility] Creatinine/Urea nitrogen [Mass Ratio] in Serum or Plasma 6 [facility] Bicarbonate [Moles/volume] in Serum 28 mmol/L 22-29 [facility] Alanine aminotransferase [Enzymatic activity/volume] in Seru m or Plasma 30 U/L <41 [facility] Anion gap 3 in Serum or Plasma 6 mmol/L 8-[address] [facility] Glomerular filtration rate/1.73 sq M pre dicted among non-blacks [Volume Rate/Area] in Serum or Plasma by Creatinine-based formula (MDRD) >[address] [facility] Glomerular filtration rate/1.73 sq M pre dicted among blacks [Volume Rate/Area] in Serum or Plasma by Creatinine-based formula (MDRD) >60 [facility] ID Date Data Source [id number] 07/10/2020 05:42:51 AM [facility] Name Value Range Interpretation Code Description Data Zahraa rce(s) Supporting Document(s) Magnesium [Mass/volume] in Serum or Plasma 1.6 mg/dL 1.6-2.6 [facility] ID Date Data Source [id number] 07/09/2020 06:59:[address] [facility] Value Range Interpretation Code Description Data Zarhaa rce(s) Supporting Document(s) Phosphate [Mass/volume] in Serum or Plasma 2.2 mg/dL 2.5-4.5 [facility] ID Date Data Source [id number] 07/09/2020 04:52:[address] [facility] Value Range Interpretation Code Description Data Zahraa rce(s) Supporting Document(s) Glucose [Mass/volume] in Capillary blood by Glucometer 125 mg/dL 70- 140 [facility] ID Date Data Source [id number] 07/09/2020 04:51:[address] [facility] Value Range Interpretation Code Description Data Zahraa rce(s) Supporting Document(s) Phosphate [Mass/volume] in Serum or Plasma 2.2 mg/dL 2.5-4.[address] [facility] ID Date Data Source [id number] 07/09/2020 12:28:[address] [facility] Value Range Interpretation Code Description Data Zahraa rce(s) Supporting Document(s) Glucose [Mass/volume] in Capillary blood by Glucometer 122 mg/dL 70- 140 [facility] ID Date Data Source [id number] 07/09/2020 10:54:[address] [facility] Value Range Interpretation Code Description Data Zahraa rce(s) Supporting Document(s) Phosphate [Mass/volume] in Serum or Plasma 2.7 mg/dL 2.5-4.5 [facility] ID Date Data Source [id number] 07/09/2020 09:47:[address] [facility] Value Range Interpretation Code Description Data Zahraa rce(s) Supporting Document(s) [facility] [id number]/YYSwsAFFhu7BsVNukXZw5UVfdGODqH4XpAWP1oI7rBQM4VEfOGuFlPlZrJRV7 [facility] [file] ICAgICAgICAgICAgICAgICAgICAgICAgICAgICAgIC WdBFKtIXXeYBBzUMCiVTOtKDLaDQLxDKQtNOAjPWXrBTXdNWNnFEZzTULsGDRlGYQjAXYySNSmFM6RWL AgICAgICAgICAgICAgICAgICAgICAgICAgICAgICAgICAgICAgICAgICAgICAgICAgICAgICAgICAgIC AgICAgICAgICAgICAgICAgICAgICAgICAgICAgICAg TKHzWXInIZ9PEDYmIFYrNZVhLLVvPLOlLHAkRVWoLZCyRBHcMHLtLAMlNSFnYALuHVBjJACwPUDaQPCl FLZaZXQbXEIlKWHzYWTgSCYmIQDtQYUrFWZdFSEdAEYiTSKcZHDtNEBvBVCbGSUpPB0AZGQpZOBjCAWv ICAgICAgICAgICAgICAgICAgICAgICAgICAgICAgIC AgICAgICAgICAgICAgICAgICAgICAgICAgICAgICAgICAgICAgICAgICAgICAgICAgICAgICAgICAgIA 0KICAgICAgICAgICAgICAgICAgICAgICAgICAgICAgICAgICAgICAgICAgICAgICAgICAgICAgICAgIC AgICAgICAgICAgICAgICAgICAgICAgICAgICAgICAg JCYoZMTsRPIeEJ9RZSFoEZMsABDcZBBdQVUiRKIaYGAjROXeSTTpNGKdUWFqGOAmLLOfRBOfRAPqFKAo JRDvQJPgRGOiYWDmQMFtVIQiDIAgFDRbTDYnHGExMHGqUQVmPMXmRLVkEVQdCYAsEZEiZH3ZGYUhZFKe ICAgICAgICAgICAgICAgICAgICAgICAgICAgICAgIC AgICAgICAgICAgICAgICAgICAgICAgICAgICAgICAgICAgICAgICAgICAgICAgICAgICAgICAgICAgIC ErYW0JRFRpMPSaURMkRSLnJQLrJAWoDMBdUFPuOQXoTEGaXOJoFNNzNYPiNMIqJIAoPXUbJTMlYETjRL AgICAgICAgICAgICAgICAgICAgICAgICAgICAgICAg TXJxVOQqXFUgQCIqYL1VOTQdEYJxXOYfGQIiKRWaRTGpAOHcGWSwBCMzIJMbUJXeGUDkBSOvBXZkVFMs EEXyRUZnUBHsDNCwSFGaTVXvXKRwVLXhSRVuLFLpDVIfBSLyNSIeZMYiHNDtMXDcFKAqUCDsPE0NOAPp ICAgICAgICAgICAgICAgICAgICAgICAgICAgICAgIC AgICAgICAgICAgICAgICAgICAgICAgICAgICAgICAgICAgICAgICAgICAgICAgICAgICAgICAgICAgIC XeMIHnPV0RHP90tVXkx8P0RIMaRX6nvtx/Kw0QLYuthpEfuLMaLK4BIaMdCF3mhe7BMnTfZX0bme8OEO xKTmNpF8S3nLVyEXEbKBUFZdRnB46lJNrfSy84TQlf LXHeKrWbYOl2Jv3PFeLtH1egEEFjDhK7KDXpZbU6DQZzUiUiJEtwAC4Ri7TfnXRpGId+Rq2JJO5qd7Ba IPjrZHAuBF9uyo6SVHyQUsRxE3FctdP8TXAhSXVcWt4EEEYgEEBvaURsZAMxKUVFFmBfF5HerF36QNLW Cj4+SUjlsnRvPzpIEwLkVWQqt4KuPVa7YV0TWOIzOZ p0cCGuH40hy5ChfGOpSlxaJjM1wHEtSQ8nRUEkn8JnEBYXiSMvfKQxJZZlOMPaEG5zZZHiQZV2WnK2BM RQBR0NFAZqQEYgvCGeARVwYRCFYI7XIKttNMR3BGSassCshQEhOCchEN9YWKNuhyMbLNzzERCUWXk+Pg 0DTO6bb7YbSCkoJLBfKL1dnc9EPMtXKoFyW9O5vNYj N3R1EFncTl3TIIExTOHxKPnfRFHGHAdgHQ5IPO5ajyK3QH1IcQJiNUAzSNKooWBaKUu2I92qdLDrJKxe FV3YSGT+Malvin+Er8RZYJqFFZnDTVqMgQcRZUSHfQrG6BoI8PLo0NzX0CsAS84tPeviaGjMYuyPU5BKQ6n WZCtOFUFGF3UlRQphZ3khtNbYUNzCHNWTmQpM25irO MyEWEiKGX7QCEaEq9JUGOkP4AgrdQmkWozvtRfCWOiKPOBZH0GBJerdtWuoTHfkAzkHT75bDslVC3OHn 5UHvRoGS3aze3SgTOyAd7AOYIqVr9QUUPdCQDtEGHaXDZ3DKHyZjNrJAkzFXNhNBIzJLU1SIAoQICzVS 1KTxKwYYSnTAe4ZiHtMUScCFTcit3AQZRcPUUtJUQ7 OMGiNRPlKCAcSLskTYIvWMNhVPI2OYFeHZHvAN3YJrVbYPKaGKRlQuBvEURxJZYlln3XFADwOKExAtCh SQGcQIUlYMXpXSalPUPiOMK6EuT4ITQqBYEbUL1WOiZnDSEeQLZ1RaLlLMAaCBKvrv3XZLIcSIAyABWf BHEvXMPpQFSdJEoiUMLdUJM8JwH1RHMqZEViDP5YQj WtMDUjEHH2AYwzSKCnXSXwkx4YPCUjHRNaJvv4TyWuWIFsADVbBKjoQTDlEFP6HIP5CGBmHKVzHO8MSf DeEPHiSUueDAhhRRGqNYIfrn2DNETsHDCfMDQjBaRtTXJuFVNxXXwwMBZqRCB8DuE4DRVsAZYhZM1FBw LwZPPoZWx6FYdaIDQzTCJjaj2OZZVlDOEnJKrdUAVl OETcOKLeAZwdHCHuDZAcPsR2KXXgHBSvOP3ERvKnECBaTIG5IlBkFIYgAWBdoz6XOVTaNMEfGQS8GuFl JNKtBADfNDz2qqUpqNOnJXg6CE9ND8KlctWfTkYZCq4Rr175PCXnIGEwTr7WS4agZx2hBFCcYDGGUv5D GDh3QXU5HWO4EEAnBkU4KjS3YcJ0VFl0BtPiWWY1Um hiNWY+FCllEwflGXN6FmP3XVIdSijeEXhlPNxuE9T5EDn6WLW9Nc0fRAYXPa0+DQpzdGFydHhyZWYNCj TtBXV9GDnfONXAPn6X ID Date Data Source [id number] 07/09/2020 07:52:32 AM [facility] Name Value Range Interpretation Code Description Data Zahraa rce(s) Supporting Document(s) Glucose [Mass/volume] in Capillary blood by Glucometer 127 mg/dL 70- 140 [facility] ID Date Data Source [id number] 07/09/2020 01:22:41 AM [facility] Name Value Range Interpretation Code Description Data Zahraa rce(s) Supporting Document(s) Leukocytes [#/volume] in Blood by Automated count 3.5 10*3/uL 4-[address] [facility] Erythrocytes [#/volume] in Blood by Automated count 3.37 10*6/uL 4.6- 6.[address] [facility] Hemoglobin [Mass/volume] in Blood 10.5 g/dL 13.5-[address] [facility] Hematocrit [Volume Fraction] of Blood by Automated count 31.3 % 4 1-[address] [facility] Erythrocyte mean corpuscular volume [Entitic volume] by Auto mated count 92.9 fL 80-96 [facility] Erythrocyte mean corpuscular hemoglobin [Entitic mass] by Automated count 31.3 pg 27-33 [facility] Erythrocyte mean corpuscular hemoglobin concentration [Mass/volume] by Automated [facility] 33.7 [facility].0[facility] width [Ratio] by Automated count 13.9 % 11.5-14.5 [facility] Platelets [#/volume] in Blood by Automated count 60 10*3/uL 150-[address] [facility] Differential cell count method - Blood [facility] Neutrophils/100 leukocytes in Blood by Automated count 52 % [facility] Lymphocytes/100 leukocytes in Blood by Automated count 35 % [facility] Monocytes/100 leukocytes in Blood by Automated count 9 % [facility] Eosinophils/100 leukocytes in Blood by Automated count 3 % [facility] Basophils/100 leukocytes in Blood by Automated count 1 % [facility] Neutrophils [#/volume] in Blood by Automated count 1.83 10*3/uL 1.8-[address] [facility] Lymphocytes [#/volume] in Blood by Automated count 1.21 10*3/uL 1.2-[address] [facility] Monocytes [#/volume] in Blood by Automated count 0.30 10*3/uL 0-0.8 [facility] Eosinophils [#/volume] in Blood by Automated count 0.11 10*3/uL 0-0.5 [facility] Basophils [#/volume] in Blood by Automated count 0.02 10*3/uL 0-0.2 [facility] Nucleated erythrocytes/100 leukocytes [Ratio] in Blood by Automated count 0 /100{WBCs} 0-0 [facility] ID Date Data Source [id number] 07/09/2020 02:34:04 AM [facility] Name Value Range Interpretation Code Description Data Zahraa rce(s) Supporting Document(s) Albumin [Mass/volume] in Serum or Plasma by Bromocresol green (BCG) dye binding method 3.4 g/dL 3.5-5.2 [facility] Bil[facility].total [Mass/volume] in Serum or Plasma 0.4 mg/dL <1.2 [facility] Calcium [Mass/volume] in Serum or Plasma 7.6 mg/dL 8.6-10.[address] [facility] Chloride [Moles/volume] in Serum or Plasma 103 mmol/L 98-107 [facility] Creatinine [Mass/volume] in Serum or Plasma 0.78 mg/dL 0.70-1.20 [facility] Glucose [Mass/volume] in Serum or Plasma 134 mg/dL 70-140 [facility] Alkaline phosphatase [Enzymatic activity/volume] in Serum or Plasma 51 U/L 40-129 [facility] Potassium [Moles/volume] in Serum or Plasma 3.1 mmol/L 3.4-5.[address] [facility] Protein [Mass/volume] in Serum or Plasma 5.2 g/dL 6.4-8.[address] [facility] Sodium [Moles/volume] in Serum or Plasma 138 mmol/L 136-145 [facility] Aspartate aminotransferase [Enzymatic activity/volume] in Serum or Plasma 36 U/L <40 [facility] Urea nitrogen [Mass/volume] in Serum or Plasma 8 mg/dL 6-20 [facility] Osmolality of Serum or Plasma by calculation 287 mosm/kg 275-300 [facility] Creatinine/Urea nitrogen [Mass Ratio] in Serum or Plasma 10 [facility] Bicarbonate [Moles/volume] in Serum 25 mmol/L 22-29 [facility] Alanine aminotransferase [Enzymatic activity/volume] in Seru m or Plasma 27 U/L <41 [facility] Anion gap 3 in Serum or Plasma 10 mmol/L 8-15 [facility] Glomerular filtration rate/1.73 sq M pre dicted among non-blacks [Volume Rate/Area] in Serum or Plasma by Creatinine-based formula (MDRD) >[address] [facility] Glomerular filtration rate/1.73 sq M pre dicted among blacks [Volume Rate/Area] in Serum or Plasma by Creatinine-based formula (MDRD) >60 [facility] ID Date Data Source [id number] 07/09/2020 02:34:04 AM [facility] Name Value Range Interpretation Code Description Data Zahraa rce(s) Supporting Document(s) Phosphate [Mass/volume] in Serum or Plasma 2.6 mg/dL 2.5-4.5 [facility] ID Date Data Source [id number] 07/09/2020 04:17:[address] [facility] Value Range Interpretation Code Description Data Zahraa rce(s) Supporting Document(s) Magnesium [Mass/volume] in Serum or Plasma 1.4 mg/dL 1.6-2.[address] [facility] ID Date Data Source [id number] 07/08/2020 09:26:35 PM [facility] Name Value Range Interpretation Code Description Data Zahraa rce(s) Supporting Document(s) Glucose [Mass/volume] in Capillary blood by Glucometer 121 mg/dL 70- 140 [facility] ID Date Data Source [id number] 07/08/2020 05:00:[address] [facility] Value Range Interpretation Code Description Data Zahraa rce(s) Supporting Document(s) Glucose [Mass/volume] in Capillary blood by Glucometer 115 mg/dL 70- 140 [facility] ID Date Data Source [id number] 07/08/2020 12:51:49 PM [facility] Name Value Range Interpretation Code Description Data Zahraa rce(s) Supporting Document(s) Glucose [Mass/volume] in Capillary blood by Glucometer 126 mg/dL 70- [address] [facility] ID Date Data Source [id number] 07/08/2020 11:08:16 AM [facility] Name Value Range Interpretation Code Description Data Zahraa rce(s) Supporting Document(s) Phosphate [Mass/volume] in Serum or Plasma 1.7 mg/dL 2.5-4.[address] [facility] ID Date Data Source [id number] 07/08/2020 09:18:52 AM [facility] Name Value Range Interpretation Code Description Data Zahraa rce(s) Supporting Document(s) [facility] PVLTZb8gNyRXLgGcc9MqOkKvFZWiPQ2bqun0H8Y6pZSzW3MvhECgc9mgJ4YrV2QsGINrRJIQVB8TvZZp jb2 [file] High Risk Case Manager+zE7isBzQz/HjsVHya36Q7j9M8M+J1AI1rIK3uIt LzU7mu3f8jW/E9jM0zf1uQVFtHIVb0nuosy4tzWac11KbB+kZ3/N45DWX5MJfyK43o9QzayaFFIz8ztV cAyw601qnJk+uP+miguel/2D5IxszpyoWvcIt5u2PR/6P1gaIzHotfyc5p+6xnv9vDzDV1tAJbZpVahFrJFr [file] wfucyrzSd/6uuKxID6aA62DhFM0W2jq+A+fruit or nut 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 ID Date Data Source [id number] 07/08/2020 03:18:38 AM [facility] Name Value Range Interpretation Code Description Data Zahraa rce(s) Supporting Document(s) Leukocytes [#/volume] in Blood by Automated count 4.0 10*3/uL 4-10 [facility] Erythrocytes [#/volume] in Blood by Automated count 3.34 10*6/uL 4.6- 6.1 [facility] Hemoglobin [Mass/volume] in Blood 10.4 g/dL 13.5-18 [facility] Hematocrit [Volume Fraction] of Blood by Automated count 31.0 % 4 1-[address] [facility] Erythrocyte mean corpuscular volume [Entitic volume] by Auto mated count 92.9 fL 80-96 [facility] Erythrocyte mean corpuscular hemoglobin [Entitic mass] by Automated count 31.2 pg 27-33 [facility] Erythrocyte mean corpuscular hemoglobin concentration [Mass/volume] by Automated count 33.6 g/dL 32.0-36.0 [facility] E[facility]th[facility] distribution width [Ratio] by Automated count 14.2 % 11.5-14.5 [facility] Platelets [#/volume] in Blood by Automated count 68 10*3/uL 150-400 [facility] Differential cell count method - Blood [facility] Neutrophils/100 leukocytes in Blood by Automated count 57 % [facility] Lymphocytes/100 leukocytes in Blood by Automated count 31 % [facility] Monocytes/100 leukocytes in Blood by Automated count 8 % [facility] Eosinophils/100 leukocytes in Blood by Automated count 4 % [facility] Basophils/100 leukocytes in Blood by Automated count 0 % [facility] Neutrophils [#/volume] in Blood by Automated count 2.24 10*3/uL 1.8-[address] [facility] Lymphocytes [#/volume] in Blood by Automated count 1.25 10*3/uL 1.2-[address] [facility] Monocytes [#/volume] in Blood by Automated count 0.32 10*3/uL 0-0.8 [facility] Eosinophils [#/volume] in Blood by Automated count 0.16 10*3/uL 0-0.5 [facility] Basophils [#/volume] in Blood by Automated count 0.01 10*3/uL 0-0.2 [facility] Nucleated erythrocytes/100 leukocytes [Ratio] in Blood by Automated count 0 /100{WBCs} 0-0 [facility] ID Date Data Source [id number] 07/08/2020 03:42:20 AM [facility] Name Value Range Interpretation Code Description Data Zahraa rce(s) Supporting Document(s) Albumin [Mass/volume] in Serum or Plasma by Bromocresol green (BCG) dye binding method 3.4 g/dL 3.5-5.2 [facility] Bilirubin.total [Mass/volume] in Serum or Plasma 0.5 mg/dL <1.2 [facility] Calcium [Mass/volume] in Serum or Plasma 6.9 mg/dL 8.6-10.[address] [facility] Chloride [Moles/volume] in Serum or Plasma 102 mmol/L 98-107 [facility] Creatinine [Mass/volume] in Serum or Plasma 0.83 mg/dL 0.70-1.20 [facility] Glucose [Mass/volume] in Serum or Plasma 107 mg/dL 70-140 [facility] Alkaline phosphatase [Enzymatic activity/volume] in Serum or Plasma 52 U/L 40-129 [facility] Potassium [Moles/volume] in Serum or Plasma 3.4 mmol/L 3.4-5.1 [facility] Protein [Mass/volume] in Serum or Plasma 5.2 g/dL 6.4-8.[address] [facility] Sodium [Moles/volume] in Serum or Plasma 137 mmol/L 136-145 [facility] Aspartate aminotransferase [Enzymatic activity/volume] in Serum or Plasma 37 U/L <40 [facility] Urea nitrogen [Mass/volume] in Serum or Plasma 12 mg/dL 6-20 [facility] Osmolality of Serum or Plasma by calculation 284 mosm/kg 275-300 [facility] Creatinine/Urea nitrogen [Mass Ratio] in Serum or Plasma 14 [facility] Bicarbonate [Moles/volume] in Serum 28 mmol/L 22-29 [facility] Alanine aminotransferase [Enzymatic activity/volume] in Seru m or Plasma 22 U/L <41 [facility] Anion gap 3 in Serum or Plasma 7 mmol/L 8-[address] [facility] Glomerular filtration rate/1.73 sq M pre dicted among non-blacks [Volume Rate/Area] in Serum or Plasma by Creatinine-based formula (MDRD) >[address] [facility] Glomerular filtration rate/1.73 sq M pre dicted among blacks [Volume Rate/Area] in Serum or Plasma by Creatinine-based formula (MDRD) >60 [facility] ID Date Data Source [id number] 07/08/2020 03:42:[address] [facility] Value Range Interpretation Code Description Data Zahraa rce(s) Supporting Document(s) Phosphate [Mass/volume] in Serum or Plasma 1.6 mg/dL 2.5-4.5 [facility] ID Date Data Source [id number] 07/08/2020 08:17:[address] [facility] Value Range Interpretation Code Description Data Zahraa rce(s) Supporting Document(s) Magnesium [Mass/volume] in Serum or Plasma 1.6 mg/dL 1.6-2.6 [facility] ID Date Data Source [id number] 07/07/2020 09:59:[address] [facility] Value Range Interpretation Code Description Data Zahraa rce(s) Supporting Document(s) Glucose [Mass/volume] in Capillary blood by Glucometer 185 mg/dL 70- [address] [facility] ID Date Data Source [id number] 07/07/2020 07:24:[address] [facility] Value Range Interpretation Code Description Data Zahraa rce(s) Supporting Document(s) Leukocytes [#/volume] in Blood by Automated count 4.9 10*3/uL 4-10 [facility] Erythrocytes [#/volume] in Blood by Automated count 3.39 10*6/uL 4.6- 6.[address] [facility] Hemoglobin [Mass/volume] in Blood 10.7 g/dL 13.5-[address] [facility] Hematocrit [Volume Fraction] of Blood by Automated count 31.4 % 4 1-[address] [facility] Erythrocyte mean corpuscular volume [Entitic volume] by Auto mated count 92.7 fL 80-96 [facility] Erythrocyte mean corpuscular hemoglobin [Entitic mass] by Automated count 31.7 pg 27-33 [facility] Erythrocyte mean corpuscular hemoglobin concentration [Mass/volume] by Automated count 34.2 g/dL 32.0-36.0 [facility] E[facility] distribution width [Ratio] by Automated count 14.6 % 11.5-14.[address] [facility] Platelets [#/volume] in Blood by Automated count 71 10*3/uL 150-[address] [facility] Differential cell count method - Blood [facility] Neutrophils/100 leukocytes in Blood by Automated count 64 % [facility] Lymphocytes/100 leukocytes in Blood by Automated count 24 % [facility] Monocytes/100 leukocytes in Blood by Automated count 8 % [facility] Eosinophils/100 leukocytes in Blood by Automated count 4 % [facility] Basophils/100 leukocytes in Blood by Automated count 0 % [facility] Neutrophils [#/volume] in Blood by Automated count 3.10 10*3/uL 1.8-[address] [facility] Lymphocytes [#/volume] in Blood by Automated count 1.19 10*3/uL 1.2-[address] [facility] Monocytes [#/volume] in Blood by Automated count 0.38 10*3/uL 0-0.8 [facility] Eosinophils [#/volume] in Blood by Automated count 0.18 10*3/uL 0-0.5 [facility] Basophils [#/volume] in Blood by Automated count 0.02 10*3/uL 0-0.2 [facility] Nucleated erythrocytes/100 leukocytes [Ratio] in Blood by Automated count 0 /100{WBCs} 0-0 [facility] ID Date Data Source [id number] 07/07/2020 07:55:59 PM [facility] Name Value Range Interpretation Code Description Data Zahraa rce(s) Supporting Document(s) Phosphate [Mass/volume] in Serum or Plasma 1.0 mg/dL 2.5-4.5 [facility] ID Date Data Source [id number] 07/07/2020 06:18:[address] [facility] Value Range Interpretation Code Description Data Zahraa rce(s) Supporting Document(s) Magnesium [Mass/volume] in Serum or Plasma 1.7 mg/dL 1.6-2.6 [facility] ID Date Data Source [id number] 07/07/2020 06:18:[address] [facility] Value Range Interpretation Code Description Data Zahraa rce(s) Supporting Document(s) Phosphate [Mass/volume] in Serum or Plasma 1.4 mg/dL 2.5-4.5 [facility] ID Date Data Source [id number] 07/07/2020 05:59:[address] [facility] Value Range Interpretation Code Description Data Zahraa rce(s) Supporting Document(s) Glucose [Mass/volume] in Capillary blood by Glucometer 127 mg/dL 70- 140 [facility] ID Date Data Source [id number] 07/07/2020 04:49:[address] [facility] Value Range Interpretation Code Description Data Zahraa rce(s) Supporting Document(s) [facility] PJHAAs4tWxUZRqFu14/XYXthTNKvc6AaLVepYQh9JIjgZBQjF6VnJBT4bY0dWTM2FYyWCiQkCfNcWMM7 [facility] [file] ICAgICAgICAgICAgICAgICAgICAgICAgICAgICAgIC FfTQJeTRZoTKUnWZOpIGCxSXJgDUNpULTqGEZyDOQxWBWaSOPaUDGkFIXjUBYrNLRmSMYtUK8UYEBxWJ AgICAgICAgICAgICAgICAgICAgICAgICAgICAgICAgICAgICAgICAgICAgICAgICAgICAgICAgICAgIC AgICAgICAgICAgICAgICAgICAgICAgICAgICAgICAg FFSyMG1NAVXtEVTxHDPnPZDdGYHzWXMzCRSqNTBrRPXrFRAgBZImGBWkUBBmNKGwQCGoDHQdNFBwEFFm MYSwCRRzKOJeHJBbMFOaLGZoXBOaPNMaUYPnWXHgANPjOHTaYKHgZUNnHDWhKG0JEHVnMGSeTKKoIEFt ICAgICAgICAgICAgICAgICAgICAgICAgICAgICAgIC IsFVLgFUDfAXEvGZAkWHVdFHZfXAGzFMBuONJjBKUbYZNnVGRuRWZwEBWmBRCnWAGkEWPxDHInXE3LTQ AgICAgICAgICAgICAgICAgICAgICAgICAgICAgICAgICAgICAgICAgICAgICAgICAgICAgICAgICAgIC AgICAgICAgICAgICAgICAgICAgICAgICAgICAgICAg TTNsJMRiTH9FSTHhUROvBHViEUQmFOKeKZLbUFXrEWBkIKKqRNFrVTHnFNUaYEBwCONkDWHeQMPqHDLk HJXaICRvVGFwCGWcINBuFAMtUFDgMCGwOUIdECXdDFVwGQDoDDJdLIEcVCFqYGQaZL5GNKBgAFGlYKDv ICAgICAgICAgICAgICAgICAgICAgICAgICAgICAgIC AgICAgICAgICAgICAgICAgICAgICAgICAgICAgICAgICAgICAgICAgICAgICAgICAgICAgICAgICAgIA 0KICAgICAgICAgICAgICAgICAgICAgICAgICAgICAgICAgICAgICAgICAgICAgICAgICAgICAgICAgIC AgICAgICAgICAgICAgICAgICAgICAgICAgICAgICAg IESnPWOgLIZoLP2JYJOoYOZbZFEhDNGiHDNzEOLcXILqMRFnNXAdLBQuDNPmXXXvVWFvGGCwQXFwUYCv KSFkJWRzUMZvICEqXBAlFJNrNEDuKCDzCYBzPOPxPFQeKEBcAYUzWURbCELlJKEbDEToXE0LXOXhOVHz ICAgICAgICAgICAgICAgICAgICAgICAgICAgICAgIC AgICAgICAgICAgICAgICAgICAgICAgICAgICAgICAgICAgICAgICAgICAgICAgICAgICAgICAgICAgIC RxMC5OCT51cZRgc7E6BSDxTE7vdpr/Tp3IVJnqkpFxhXNuKS7RPfAdXU4bdc5OLlExCS5nhz0XUXmREd QdU1S0aMRjCADxBFCKDnLfP19kRIlgMm02SIheWQEl NyRiANh9Hu7DIkPpB1cfBOUhIfU9IVJzTjE0NZLvPxO3JYWjOlPgIJVhHOHsBGNzGKFCQDM3JSCmBkGv JEisIE5Bu9InmCA2FAf+Qa9PDQ0yl6CoBSypYKIxZD1vhy6YZXnGIgWzY1UsgcB2IQZyAVWnKh2BPGHx BAEdwOPdAZLvVMUBRuOpM9KxxY39VSESUt6+DQplbm EiEupXRnLtHDLuj8OvMZa6JI2HQWGvGCx8bNNnG33qf9MhkXIlGbolZLVzyOgoobCCPXCaB7DnkqPpQC vWF1uuJHHnNJHhJx1iYJSyYGJ6BvM4WUWNOJ8VJCFoLUKtjITlUHTdCBDNNE7YVSkcZRW1IVQjunIchY QfABbxFM3SHOXwsaYuLpfrIQGJVWj+Ux9OGF9rf3Wc KUalKLKyKG7kcl6OYOoDPsNfO5H3cOWzP6J8YEsrUd3VXXYqLPIaRkhyQYFDTDvfRV7XXH4dagX2IZ7T lKNgWWVzXOKknTIbPQk6S97dlZAoOHndKD5XITK+Malvin+Oo3KTIXeWVIeBSIeWsFjCTHXNiPgU8FeC2WA t4UuT6YaTY83lEjlriFqXHliGC1HKW0qVGQtTDLHGX 2GpPHimL3swfGsSZHlIIMQEjTtW87lrLBdIYEqCVJ3IITuWd4GEWWaR1QvzaIxrOroosHdSEWyDACATF 9RHOhokxLtfOTmbXlzTN05bGfmSN8BFh0PJbYeKZ5gjr8BcKObZp9NTMNdQl2TFBSwEHYqNJZiOQI0ZX AeAyAyRRsqVNGjWYYyDMY7GTRuEJRuMK1OCrGfUSXm CpH1LFhcLUWzNBKamc7BTEBvCBMoIyWoSUPsVAVhKTIwVOfnUZCeUAZtTJY3EEZzJXHvHG1OXwYgQWQf UTN1JJvjZHBzHEMtpb0QSMYbSLCqMwphIzDvIWHpHMLzBFjlURBrWUA1Hac2AHQaGXTpRH5TByQlEZQa NQQ5YipzMJTvFKDnvs2OETOpNPEsCLTxIpCzGQTaAQ QdQMzhEWCqUKDgCmVyYTMnRGCmQT0YUaKwFIErSQH5BvsjXNRiVNPvhk7YCSAdYQJuGeP0YGMbRBYzBE QpARkrZNQkBCZ1VEgdVGThZADxVY2UEnAdKWLvDTufYOvvYRPoXNRolx9OKOOdVNMkOEUbYNQoCLYeRD CcNIoaLTYgHBF4JLA5VMHpCQKsXP0ZXwAhEYWfTeS3 EsNcHTTyILXnvi7GGQKgBXZqMJy5TMQrMZNcRNXgHQvaUAUsZANlMTY1IXZgQJKkDX8BDtZbLVRzSbEg GFQhVFGpXMTxjd2UZAWzGZUjPnIiWPGuJLIjUAMjNAoqWIGaKONzGWHgKKUrHAAuIF1HPcNgGPZjRgY1 FaRtXZQrOASnso6CTVFcDPUaUJY7USJcTQNmMFViMQ wfWAPcVMW4VIgxHFQiQDDiFW3RIhXhVICsIsJ9EaNwGYOqOSBkch7KUHQvWIMfQEy4WtBbDTViXDSaTE vfLVMnVCW7Ccm8MJEhZQVaSJ9UJeQjQOHtLmY4VSbzNBIqVXNtoo1GTBDwSTZdItgmPKMaQGGwNLLcUK phBPLaDIR5IAC4HRGbASThBO8GNyWpRBwmTLDTKts4 AIbzM6y4OFSxAd7EQ8Kbu2MeKbSuXDWYLUgpLJ5shfTaPXWtNy2YR5rOKqx9F1F5LTV9UNJrH0E7APmj BTNyWCKzSOYgXNFuG9D1NS0uIEu8PnOdZQObHdN1ULS9DtM7XmZwPXO8DgOyNcMoWsm5ErElRQ0MCd7E ReH5SHV2bTYbLd6PLpqtTLOYMaClGF6UUAt= ID Date Data Source [id number] 07/07/2020 12:30:45 PM [facility] Name Value Range Interpretation Code Description Data Zahraa rce(s) Supporting Document(s) Glucose [Mass/volume] in Capillary blood by Glucometer 124 mg/dL 70- 140 [facility] ID Date Data Source [id number] 07/07/2020 12:30:[address] [facility] Value Range Interpretation Code Description Data Zahraa rce(s) Supporting Document(s) Glucose [Mass/volume] in Capillary blood by Glucometer 11 mg/dL 70- 140 [facility] ID Date Data Source [id number] 07/07/2020 10:22:[address] [facility] Value Range Interpretation Code Description Data Zahraa rce(s) Supporting Document(s) Potassium [Moles/volume] in Serum or Plasma 3.5 mmol/L 3.4-5.1 [facility] ID Date Data Source [id number] 07/07/2020 10:22:[address] [facility] Value Range Interpretation Code Description Data Zahraa rce(s) Supporting Document(s) Phosphate [Mass/volume] in Serum or Plasma 0.9 mg/dL 2.5-4.5 [facility] Results called to and read back by PRASAD CAPONE RN [id number] ID Date Data Source [id number] 07/07/2020 08:24:[address] [facility] Value Range Interpretation Code Description Data Zahraa rce(s) Supporting Document(s) Glucose [Mass/volume] in Capillary blood by Glucometer 126 mg/dL 70- 140 [facility] ID Date Data Source [id number] 07/07/2020 08:05:[address] [facility] Value Range Interpretation Code Description Data Zahraa rce(s) Supporting Document(s) [facility] GJKVIa1lBqVKEsSf29/CPUiwFOBkn3UeVAndZLf4MKesQZDpT8KmYUS0xE8iBJU8QQeWDsHvSqVoQAT8 [facility] [file] ICAgICAgICAgICAgICAgICAgICAgICAgICAgICAgICAgICAgICAgICAgICAgICAgICAgICAgICAgICAg ICAgICAgICAgICAgICAgICAgICAgICAgICAgICAgICAgICANCiAgICAgICAgICAgICAgICAgICAgICAg ICAgICAgICAgICAgICAgICAgICAgICAgICAgICAgIC AgICAgICAgICAgICAgICAgICAgICAgICAgICAgICAgICAgICAgICAgICAgICANCiAgICAgICAgICAgIC AgICAgICAgICAgICAgICAgICAgICAgICAgICAgICAgICAgICAgICAgICAgICAgICAgICAgICAgICAgIC AgICAgICAgICAgICAgICAgICAgICAgICAgICANCiAg ICAgICAgICAgICAgICAgICAgICAgICAgICAgICAgICAgICAgICAgICAgICAgICAgICAgICAgICAgICAg ICAgICAgICAgICAgICAgICAgICAgICAgICAgICAgICAgICAgICANCiAgICAgICAgICAgICAgICAgICAg ICAgICAgICAgICAgICAgICAgICAgICAgICAgICAgIC AgICAgICAgICAgICAgICAgICAgICAgICAgICAgICAgICAgICAgICAgICAgICAgICANCiAgICAgICAgIC AgICAgICAgICAgICAgICAgICAgICAgICAgICAgICAgICAgICAgICAgICAgICAgICAgICAgICAgICAgIC AgICAgICAgICAgICAgICAgICAgICAgICAgICAgICAN CiAgICAgICAgICAgICAgICAgICAgICAgICAgICAgICAgICAgICAgICAgICAgICAgICAgICAgICAgICAg ICAgICAgICAgICAgICAgICAgICAgICAgICAgICAgICAgICAgICAgICANCiAgICAgICAgICAgICAgICAg ICAgICAgICAgICAgICAgICAgICAgICAgICAgICAgIC AgICAgICAgICAgICAgICAgICAgICAgICAgICAgICAgICAgICAgICAgICAgICAgICAgICANCiAgICAgIC AgICAgICAgICAgICAgICAgICAgICAgICAgICAgICAgICAgICAgICAgICAgICAgICAgICAgICAgICAgIC AgICAgICAgICAgICAgICAgICAgICAgICAgICAgICAg ICANCiAgICAgICAgICAgICAgICAgICAgICAgICAgICAgICAgICAgICAgICAgICAgICAgICAgICAgICAg ICAgICAgICAgICAgICAgICAgICAgICAgICAgICAgICAgICAgICAgICAgICANCjw/uUDeM5irwRCcbsN5 P3slKi5EPm0KVE7nn5AzNIUrNJhhluEaIeoXFsLdBH RrTslDFlh8ZBtaXE6CpARzR1VdT7ItYYmvPQ0JRDHnUJHokVDaQIZoCDGrSiZ1UDFxLQgkKX2CxANkCS emNDAkLCNzDsXkVEInIKKqIDFpAYLlRXIBGUOjBFHbRyWtOVcfJG4Um2IwyGZ0YDy+Wi7VFG9hb2YpAJ piThIyQO4omx8STCbCAuSxB9SairZ0GCA8RRFsKk7Z GURlKBOniWYwDTHoUPLHWiMaR6RtaP67GNHYLm5+LMryxxKqCoaWVhI0ZEUbq5FeHQy5MY7LDZKpALm1 jVAaO94an7SfoEByDjrkRAPjvYIeyVHYFWWsdW8nyGehJQ8ZGeWfJUVpKYJqWX2hRZSjTJZ0SdW8YZBA YB1LCYLwFJTjjYUzXRLsQCCMGK1GQAsoFED3WZRsej SzbYMsATmxSK8BIEWtplLbKdXlTMDKJZo+Ne2PKU3uh3TvAZhqQEQoAX6bev7FEQyGHvGtL9Z4gAKkX5 L3AWbzWv0OSKSfMHOpAaHpBHDCWAvmGJ6KIO5afuV2WO5DiSCsDWVaSHDtuDNoQLc9L79vbFWiWWdfDE 0KICA+Malvin+Up0DXUMsLGJhFHVjFrBvFJNBXfAiG9Dv C2EBs3UfY1MuAG45hQwuqnXwYHpuZC4GFD8jBUGqHUSAZM6YyDKqkE5haiJqEzFlUWTNNaIrB94biVEv CEWyXHDwFPAoRy8TMUPqU5DzipSwdAflqmBcDREwCFRMOT4ZUMwlhlDyhPKefStsIF07cOgoLJ6JQd8Y FnYfPH3usd8DlWRcIf0SRCXaNs6QNBZzSPZjFCUuKP D9SVTyZvUzGSoqQNRzPXZiWEZ8SRYwSVUoVO4ICeBwHHErErD6ZqVrGZIpWOZcrh2NBWIrGGEzASNqJy GuROWaZGWnSVzcXCBoAJOeIFY4DTCqMNOjQI6TEbTaKGHeAJU6BYKdOHWcDJTilw3MXAVbBVOhBCGrEV ArKMFeOUFcVSrtQGCuAAX8PXc7DALoYFOlGW0CWkRs FSEoGCneARgpXPLjMMYwxd1NFYOfIJLrGEutAsYrHQOyXZNvDBrzPGGfXWWlGUB4GWTpBXWpYJ2MNvEs NYBvFQFxTCEbVLPfXYQnlz1KPZScOZRwVZSxMGYkJEBgQOVaSUscGIQhJMS8EpDpLPSvOUJkPS3NNcUk IVIqTWg1KXkuGNBdKNVdwx3AIVSjSEHkTTb9DmToNH YjDSMmNCrbZQVuGXDbSZk0DSTtTLOhTC9PVnIaCJIvImFkCXdhGMZwAVYxkm9KSLXdOTUqYFNoLxTsPE JkMMUlNCmgATZjNABgVXW6RBAuPNWeSJ0WEvUgMIYcSaF6FSVpXRCuODPnvh5YTSSzPZVuPnI4NzLjIY AhSJLwUHqaMUYyAJIbTrZoYUQyCOSsOE3ZWuTaBTBj CkQ1FVCtPCYlJCBecu8DESJrYSYvIBGmOBYbBUJkGPMqVUszJGLjALC3JxG1OQUqWLRbAF8RDiSnXIUb SmX2HEuwXHHfVGUkic5UPYXiFUYhXJZ9AsFaDOZdFHGsKTjuZNWgRQZ9JoRmOBIlJKLhPM9GIvGeKNNy SiLyXYjfXZBkYRWpxo3NZDWlJCZrTeM4SEBgZQFjEM OiIYamPDIxCTZ1FAVjYSLbHIRxBO9AEsUkWCUnNsZ2VZQhQWWhEDSgvp5QREQzWGBoDSW7YCMhYCIjNE PmGLpeMZHdBJW5EDCaXXYmWOTjLF4WRwAfSNPxEjg0IoerEDAyWPRand3DhNSrlUrxul6WWAbFKh3GbE twHXH8APlzKa6xeUEaLIXiZVZZMw6TnkShVAQzLILE YNtjXCCqFIKdXPU5OCOrRqGsMhF1IqDaWFBaHJr0ZqW5MZVcVNIjViH7NZFiZJzyKeA7ZZH7QKUxMKKz MgQsVcYrVNX2XHLuUVC+QL3dHSv+Sr9Il3MzacK6bbMcAQgiMRlrUp4EFLENJ7YHNp== ID Date Data Source [id number] 07/07/2020 08:05:32 AM [facility] Name Value Range Interpretation Code Description Data Zahraa rce(s) Supporting Document(s) History and Physical [facility] RLTDVb2aOnFNTrYv50/TLAdlMMVoe0JcNAveITb2JIqiERFuA9LxJNA5tO7uSFQ9TNdISlEcPiUbCJG4 lbm [file] AgICAgICAgICAgICAgICAgICAgICAgICAgICAgICAgICAgICAgICAgICAgICAgICAgICAgICAgICAgIC AgICAgICAgICAgICAgDQogICAgICAgICAgICAgICAg ICAgICAgICAgICAgICAgICAgICAgICAgICAgICAgICAgICAgICAgICAgICAgICAgICAgICAgICAgICAg ICAgICAgICAgICAgICAgICAgICAgICAgDQogICAgICAgICAgICAgICAgICAgICAgICAgICAgICAgICAg ICAgICAgICAgICAgICAgICAgICAgICAgICAgICAgIC AgICAgICAgICAgICAgICAgICAgICAgICAgICAgICAgICAgDQogICAgICAgICAgICAgICAgICAgICAgIC AgICAgICAgICAgICAgICAgICAgICAgICAgICAgICAgICAgICAgICAgICAgICAgICAgICAgICAgICAgIC AgICAgICAgICAgICAgICAgDQogICAgICAgICAgICAg ICAgICAgICAgICAgICAgICAgICAgICAgICAgICAgICAgICAgICAgICAgICAgICAgICAgICAgICAgICAg ICAgICAgICAgICAgICAgICAgICAgICAgICAgDQogICAgICAgICAgICAgICAgICAgICAgICAgICAgICAg ICAgICAgICAgICAgICAgICAgICAgICAgICAgICAgIC AgICAgICAgICAgICAgICAgICAgICAgICAgICAgICAgICAgICAgDQogICAgICAgICAgICAgICAgICAgIC AgICAgICAgICAgICAgICAgICAgICAgICAgICAgICAgICAgICAgICAgICAgICAgICAgICAgICAgICAgIC AgICAgICAgICAgICAgICAgICAgDQogICAgICAgICAg ICAgICAgICAgICAgICAgICAgICAgICAgICAgICAgICAgICAgICAgICAgICAgICAgICAgICAgICAgICAg ICAgICAgICAgICAgICAgICAgICAgICAgICAgICAgDQogICAgICAgICAgICAgICAgICAgICAgICAgICAg ICAgICAgICAgICAgICAgICAgICAgICAgICAgICAgIC AgICAgICAgICAgICAgICAgICAgICAgICAgICAgICAgICAgICAgICAgDQogICAgICAgICAgICAgICAgIC AgICAgICAgICAgICAgICAgICAgICAgICAgICAgICAgICAgICAgICAgICAgICAgICAgICAgICAgICAgIC WrDTPlTGFkRTSzQBEvRNGdAUQzOAYyDNx2M9ewAGSv NKAsZO1qXAx6Oh8+MMeLKpYdRKY1rwTsyC7WMN8dv9ZeZAtzDXGts1IcXTg4OZ5XSPJrEEdpZH7SZIfh eg5IENMpXNBkfPRDx2vcAfMoUFS6GKBuCnozKU9VJPOjK7sjsoFlGRIfGTNTDHmxTPVCGS9YDoEzB3Yi fP77JCIGNl5+SFrrptAhMfwMZyC0LIRgf8TkOJx7RB 1FQGCyChlkm8GkMepoTLJYINdhNW6IOMW2JLO8BSJlIo9JWEAhU012ojKbCR0OKa9BMjUvAT0ocw6BJq zzOJEuYahIQvh0YQepHZ0JsNAsPXmJZsYcJnwsZMUvuJEksAJLFNVwqX5iuPykJG1BAiTrAYRxXUAmMA 6aLVEaZKSyIsOeFSHMEA1NPBVvOWAhyAPqZXXlWRTX PE4PYBdtRCT0PUHsvoZaiRAgHKzvLM1WEFAqcgIfCzupVSOLACk+Ty7ZRN8gq4GaPUicRSQyNL3wpq2W MPpVAxUdY6L0zKDoA1E8VYghXu9DCUXkJFAbDvIzGRSDQNkbAE4ZOL8uzdH3OW9ImLZbHEWyAYLqbAYs LVh5M80gtMAcCJtiEA5XORK+Malvin+Wl9ZKTEsBKZgKW YeVhCbULXESzCsG8ElW0RWb1JpV6QeNV71kZotbrMmYLiqCV7JQJ7zNYFaRKGILI0OtQRmxI1cyjWbYz KbCOOOHpZhI13hoNKaINYbGEX5SXTgUx4HGIVsO5GxpoXsyDrczkLoFBKtDAPZKO6AJZwtfoScdBTswX sqRN90tCutPI4XAl9OBhGvGW8rox6HlCRzAe0MAJDf CL3IMWFrCIZxMUVyZPE7UYFrSfCcIRswLANlMXSbICI5PVLkCJGeMK2HUoOrQUQsZcYgWPOdZRKlXQWi tc6TEUZoKVBdDjV5TlQpNIRlKOUkJSozXVEhWBPfIFK1PYQxQSBeBX2ESvQyZVNcGFVhYPGhEDBrNIPe ao3BYQAsZPKeLsM7BbUgHEXyYMTvUMwmCQNjNMY7VW x9TYDeARMtJD5KHdArUQZzWMC7WHowXWQrSSDhia3UHGSaTFWsVoJ2FoKnPHAsJXMdINigBMUqJOA7PC QdISGaMTShLN1GNcRiAHSaKIkgCdTrFUNiVYKrmb6EANKrMGZuEGk9ZpAaIJRmAHJwXUniSDGbRCO1ZC t0DEIpMZVaVH7ZRtQlVBHxQNunMmUlRWDnIZWywq1R HUEcOVHjUPElCvFtWJXdZUDlODtbQNCiMONlSQZuSNSfTRNdJG4TKvFzVXDhRAO7PYViBFYlGYTrsp7X WBQtOKGlIdN2BXKoMWRrOJCxAGpcSCPaFWWmOTC3VDEtBEKpLX2CYeIhIOUpMrU5LsSjGOGuCHHbvd5Z XPBjIEHoXwd3GOYjOFLiMICqLIljMKOlVIAmEQUuMF IwBEYfFD7BOsEuXAMxDwZ2BQMrUYNgVZHkej4GKMTfXBTaINH6EeMqPVFqVYUoRFkcUTTuVSX5HaDcHT KdBYLjCQ5TUcYxLHRoFjT8TXIjLFZpNMEpol7VTSWwASCmNpP9QyCiUUJnCZGfNCjdOMFkZMK8SzJ5HX SwRZLgIR1DPiAuNFAnHaN5WPWzUPTyYPSzih3CoUAh wMmlmv7DKAzVHw0CvYuqBAZkSPpqPr4udYGiESTuIWCTMk6SxrAlZNQrWOUMVMhcTMZvNNZ8VyxfJPJz YHkgRYykZSBgBzU4OElzYSMwUYDsHut6OzD3PyckEoJ1VpK4H5PcREIcFqMqKyheCUPxJIN6D9LsIwC+ XZ7oBIm+Cw0Gr2JvvvG4xoExLSwlXfP4HX1DTTMMP1NGNg== ID Date Data Source [id number] 07/07/2020 06:55:55 AM EST [facility] Name Value Range Interpretation Code Description Data Zahraa rce(s) Supporting Document(s) Albumin [Mass/volume] in Serum or Plasma by Bromocresol green (BCG) dye binding method 3.8 g[facility].5[facility] Bil[facility].total [Mass/volume] in Serum or Plasma 0.7 mg/dL <1.2 [facility] Calcium [Mass/volume] in Serum or Plasma 6.9 mg/dL 8.6-10.[address] [facility] Chloride [Moles/volume] in Serum or Plasma 100 mmol/L 98-107 [facility] Confirmed Creatinine [Mass/volume] in Serum or Plasma 0.96 mg/dL 0.70-1.20 [facility] Glucose [Mass/volume] in Serum or Plasma 140 mg/dL 70-140 [facility] Alkaline phosphatase [Enzymatic activity/volume] in Serum or Plasma 49 U/L 40-129 [facility] Potassium [Moles/volume] in Serum or Plasma 3.5 mmol/L 3.4-5.1 [facility] Protein [Mass/volume] in Serum or Plasma 5.5 g/dL 6.4-8.[address] [facility] Sodium [Moles/volume] in Serum or Plasma 137 mmol/L 136-145 [facility] Aspartate aminotransferase [Enzymatic activity/volume] in Serum or Plasma 41 U/L <[address] [facility] Urea nitrogen [Mass/volume] in Serum or Plasma 18 mg/dL 6-20 [facility] Osmolality of Serum or Plasma by calculation 288 mosm/kg 275-300 [facility] Creatinine/Urea nitrogen [Mass Ratio] in Serum or Plasma 19 [facility] Bicarbonate [Moles/volume] in Serum 24 mmol/L 22-29 [facility] Alanine aminotransferase [Enzymatic activity/volume] in Seru m or Plasma 25 U/L <41 [facility] Anion gap 3 in Serum or Plasma 13 mmol/L 8-15 [facility] Glomerular filtration rate/1.73 sq M pre dicted among non-blacks [Volume Rate/Area] in Serum or Plasma by Creatinine-based formula (MDRD) >[address] [facility] Glomerular filtration rate/1.73 sq M pre dicted among blacks [Volume Rate/Area] in Serum or Plasma by Creatinine-based formula (MDRD) >60 [facility] ID Date Data Source [id number] 07/07/2020 08:45:11 AM [facility] Name Value Range Interpretation Code Description Data Zahraa rce(s) Supporting Document(s) Leukocytes [#/volume] in Blood by Automated count 5.1 10*3/uL 4-10 [facility] Erythrocytes [#/volume] in Blood by Automated count 3.26 10*6/uL 4.6- 6.[address] [facility] Hemoglobin [Mass/volume] in Blood 10.3 g/dL 13.5-[address] [facility] Hematocrit [Volume Fraction] of Blood by Automated count 29.8 % 4 1-[address] [facility] Erythrocyte mean corpuscular volume [Entitic volume] by Auto mated count 91.4 fL 80-96 [facility] Erythrocyte mean corpuscular hemoglobin [Entitic mass] by Automated count 31.6 pg 27-33 [facility] Erythrocyte mean corpuscular hemoglobin concentration [Mass/volume] by Automated count 34.5 g/dL 32.0-36.0 [facility] E[facility]th[facility] distribution width [Ratio] by Automated count 14.7 % 11.5-14.[address] [facility] Platelets [#/volume] in Blood by Automated count 65 10*3/uL 150-[address] [facility] Differential cell count method - Blood [facility] Neutrophils/100 leukocytes in Blood by Automated count 76 % [facility] Lymphocytes/100 leukocytes in Blood by Automated count 14 % [facility] Monocytes/100 leukocytes in Blood by Automated count 7 % [facility] Eosinophils/100 leukocytes in Blood by Automated count 3 % [facility] Neutrophils [#/volume] in Blood by Automated count 3.91 10*3/uL 1.8-[address] [facility] Lymphocytes [#/volume] in Blood by Automated count 0.71 10*3/uL 1.2-[address] [facility] Monocytes [#/volume] in Blood by Automated count 0.33 10*3/uL 0-0.8 [facility] Eosinophils [#/volume] in Blood by Automated count 0.14 10*3/uL 0-0.5 [facility] Poikilocytosis [Presence] in Blood by Light microscopy [facility] Stomatocytes [Presence] in Blood by Light microscopy [facility] ID Date Data Source [id number] 07/07/2020 07:00:15 AM [facility] Name Value Range Interpretation Code Description Data Zahraa rce(s) Supporting Document(s) Hemoglobin A1c/Hemoglobin.total in Blood by HPLC 5.5 % 4.0-6.0 [facility] (NOTE)<5.7% Average risk of diabetes (ADA)5.7-6.4% Increased risk of diabetes(ADA)>/= 6.5% Diagnostic for diabetes(ADA) Glucose mean value [Mass/volume] in Blood Estimated fr om glycated hemoglobin 111 mg/dL <126 [facility] ID Date Data Source [id number] 07/07/2020 12:45:32 AM EST [facility] Name Value Range Interpretation Code Description Data Zahraa rce(s) Supporting Document(s) Leukocytes [#/volume] in Blood by Automated count 5.2 10*3/uL 4-10 [facility] Erythrocytes [#/volume] in Blood by Automated count 3.20 10*6/uL 4.6- 6.[address] [facility] Hemoglobin [Mass/volume] in Blood 10.1 g/dL 13.5-[address] [facility] Hematocrit [Volume Fraction] of Blood by Automated count 29.2 % 4 1-[address] [facility] Erythrocyte mean corpuscular volume [Entitic volume] by Auto mated count 91.3 fL 80-96 [facility] Erythrocyte mean corpuscular hemoglobin [Entitic mass] by Automated count 31.5 pg 27-33 [facility] Erythrocyte mean corpuscular hemoglobin concentration [Mass/volume] by Automated count 34.5 g/dL 32.0-36.0 [facility] Erythrocyte distribution width [Ratio] by Automated count 14.4 % 11.5-14.5 [facility] Platelets [#/volume] in Blood by Automated count 69 10*3/uL 150-[address] [facility] Differential cell count method - Blood [facility] Neutrophils/100 leukocytes in Blood by Automated count 73 % [facility] Lymphocytes/100 leukocytes in Blood by Automated count 17 % [facility] Monocytes/100 leukocytes in Blood by Automated count 9 % [facility] Eosinophils/100 leukocytes in Blood by Automated count 1 % [facility] Basophils/100 leukocytes in Blood by Automated count 0 % [facility] Neutrophils [#/volume] in Blood by Automated count 3.74 10*3/uL 1.8-[address] [facility] Lymphocytes [#/volume] in Blood by Automated count 0.89 10*3/uL 1.2-[address] [facility] Monocytes [#/volume] in Blood by Automated count 0.46 10*3/uL 0-0.8 [facility] Eosinophils [#/volume] in Blood by Automated count 0.06 10*3/uL 0-0.5 [facility] Basophils [#/volume] in Blood by Automated count 0.01 10*3/uL 0-0.2 [facility] Nucleated erythrocytes/100 leukocytes [Ratio] in Blood by Automated count 0 /100{WBCs} 0-0 [facility] ID Date Data Source [id number] 07/06/2020 10:10:12 PM [facility] Name Value Range Interpretation Code Description Data Zahraa rce(s) Supporting Document(s) Glucose [Mass/volume] in Capillary blood by Glucometer 262 mg/dL 70- [address] [facility] ID Date Data Source [id number] 07/06/2020 10:56:[address] [facility] Value Range Interpretation Code Description Data Zahraa rce(s) Supporting Document(s) Magnesium [Mass/volume] in Serum or Plasma 2.0 mg/dL 1.6-2.6 [facility] ID Date Data Source [id number] 07/06/2020 10:56:32 PM [facility] Name Value Range Interpretation Code Description Data Zahraa rce(s) Supporting Document(s) Potassium [Moles/volume] in Serum or Plasma 3.6 mmol/L 3.4-5.1 [facility] ID Date Data Source [id number] 07/06/2020 11:17:[address] [facility] Value Range Interpretation Code Description Data Zahraa rce(s) Supporting Document(s) Phosphate [Mass/volume] in Serum or Plasma 0.7 mg/dL 2.5-4.5 [facility] Results called to and read back by José Bhatti RN on 6I at 23[id number] confirmed ID Date Data Source [id number] 07/06/2020 06:21:[address] [facility] Value Range Interpretation Code Description Data Zahraa rce(s) Supporting Document(s) Lactate [Moles/volume] in Serum or Plasma 1.1 mmol/l 0.5-2.2 [facility] ID Date Data Source [id number] 07/06/2020 06:26:33 PM EST [facility] Name Value Range Interpretation Code Description Data Zahraa rce(s) Supporting Document(s) Leukocytes [#/volume] in Blood by Automated count 5.6 10*3/uL 4-10 [facility] Erythrocytes [#/volume] in Blood by Automated count 3.15 10*6/uL 4.6- 6.[address] [facility] Hemoglobin [Mass/volume] in Blood 10.0 g/dL 13.5-[address] [facility] Hematocrit [Volume Fraction] of Blood by Automated count 28.9 % 4 1-[address] [facility] Erythrocyte mean corpuscular volume [Entitic volume] by Auto mated count 91.9 fL 80-96 [facility] Erythrocyte mean corpuscular hemoglobin [Entitic mass] by Automated count 31.7 pg 27-33 [facility] Erythrocyte mean corpuscular hemoglobin concentration [Mass/volume] by Automated count 34.5 g/dL 32.0-36.0 [facility] E[facility]th[facility] distribution width [Ratio] by Automated count 14.3 % 11.5-14.5 [facility] Platelets [#/volume] in Blood by Automated count 70 10*3/uL 150-[address] [facility] Differential cell count method - Blood [facility] Neutrophils/100 leukocytes in Blood by Automated count 77 % [facility] Lymphocytes/100 leukocytes in Blood by Automated count 12 % [facility] Monocytes/100 leukocytes in Blood by Automated count 11 % [facility] Eosinophils/100 leukocytes in Blood by Automated count 0 % [facility] Basophils/100 leukocytes in Blood by Automated count 0 % [facility] Neutrophils [#/volume] in Blood by Automated count 4.29 10*3/uL 1.8-[address] [facility] Lymphocytes [#/volume] in Blood by Automated count 0.68 10*3/uL 1.2-[address] [facility] Monocytes [#/volume] in Blood by Automated count 0.59 10*3/uL 0-0.8 [facility] Eosinophils [#/volume] in Blood by Automated count 0.01 10*3/uL 0-0.5 [facility] Basophils [#/volume] in Blood by Automated count 0.00 10*3/uL 0-0.2 [facility] Nucleated erythrocytes/100 leukocytes [Ratio] in Blood by Automated count 0 /100{WBCs} 0-0 [facility] ID Date Data Source [id number] 07/06/2020 05:04:33 PM [facility] Name Value Range Interpretation Code Description Data Zahraa rce(s) Supporting Document(s) History and Physical [facility] IVXNHp4bYiHGZiMe64/TVSgdZEHpe3MbEKevXEb6GVgeESUgK6WnSDY6hE5zSCU0DLfTEmUbIcTlGRP6 lbm [file] CiAgICAgICAgICAgICAgICAgICAgICAgICAgICAgICAgICAgICAgICAgICAgICAgICAgICAgICAgICAg ICAgICAgICAgICAgICAgICAgICAgICAgICAgICAgICAgICAgICAgICANCiAgICAgICAgICAgICAgICAg ICAgICAgICAgICAgICAgICAgICAgICAgICAgICAgIC AgICAgICAgICAgICAgICAgICAgICAgICAgICAgICAgICAgICAgICAgICAgICAgICAgICANCiAgICAgIC AgICAgICAgICAgICAgICAgICAgICAgICAgICAgICAgICAgICAgICAgICAgICAgICAgICAgICAgICAgIC AgICAgICAgICAgICAgICAgICAgICAgICAgICAgICAg ICANCiAgICAgICAgICAgICAgICAgICAgICAgICAgICAgICAgICAgICAgICAgICAgICAgICAgICAgICAg ICAgICAgICAgICAgICAgICAgICAgICAgICAgICAgICAgICAgICAgICAgICANCiAgICAgICAgICAgICAg ICAgICAgICAgICAgICAgICAgICAgICAgICAgICAgIC AgICAgICAgICAgICAgICAgICAgICAgICAgICAgICAgICAgICAgICAgICAgICAgICAgICAgICANCiAgIC AgICAgICAgICAgICAgICAgICAgICAgICAgICAgICAgICAgICAgICAgICAgICAgICAgICAgICAgICAgIC AgICAgICAgICAgICAgICAgICAgICAgICAgICAgICAg ICAgICANCiAgICAgICAgICAgICAgICAgICAgICAgICAgICAgICAgICAgICAgICAgICAgICAgICAgICAg ICAgICAgICAgICAgICAgICAgICAgICAgICAgICAgICAgICAgICAgICAgICAgICANCiAgICAgICAgICAg ICAgICAgICAgICAgICAgICAgICAgICAgICAgICAgIC AgICAgICAgICAgICAgICAgICAgICAgICAgICAgICAgICAgICAgICAgICAgICAgICAgICAgICAgICANCi AgICAgICAgICAgICAgICAgICAgICAgICAgICAgICAgICAgICAgICAgICAgICAgICAgICAgICAgICAgIC AgICAgICAgICAgICAgICAgICAgICAgICAgICAgICAg ICAgICAgICANCiAgICAgICAgICAgICAgICAgICAgICAgICAgICAgICAgICAgICAgICAgICAgICAgICAg ICAgICAgICAgICAgICAgICAgICAgICAgICAgICAgICAgICAgICAgICAgICAgICAgICANCjw/jHCkM7uj qFZmyzK9E7ffZf2LAm3KZJ7hj1GkNSNdAAjaeoXhKc hWZhZtBDKjZrjHStc4WTofRA0AuXMoN2VxP0UyNIkgJQ1JWENfIGQlpBEoVDShOUTuOgZ1PHLxPLhyBO 8IhJKzFUdkEHVxZMBkCrPhCFGoYVZiLETrUNAxFYNTOCIwSQBnXaPnYIkrVP3Yh6IhuXG8FWt+Pg0KZW 8yj9OvMRbwHhBzHT7msw9HTKmKSrZwT6KbtzS3DQQ7 VLJeRw5HNBXhYWAsnQLfGECgNDHAXtGoW9UlyN30OKDGZw3+RNwuptJfLofUYyD1NADpm5OrRUo3RP8Z GDMpPGt4oZHhLGOAOXH8HSlaDuNkGgcbDDmtNGFSOGO3GTCjIrJwWnMuIWDjQKrbPMOLQFuPFiPcA7Tf i5PdVzV5IAEqZnKzNLfuFFGgAgV6RR41wApjKA7ROF BvKRCxIO38VDDfIQMjBj9QWw7FIdHgSR1ivf5LCnHgKICtXpvUWyv7LKnlMD2CdVKbL3NxhTIhz7oQEq WnP4QKMVCeYSWuZd8LNRAnKbVhYXKeWEcyQP0tYTPqNACNtKypxaX4WP4NGY5wtvWjNZ1SFsRyFk9pXh 1EAxElP4DjU4PfJZLyVSJDGHklVN5BFAdvPS5eQL3Q n8WLhJOpeK0vdf9PNWSjYSHaNalvzz0QWfnsS3P8eZceMFLoNvSlVXUWWFtiOV4TVABkKMH1CBMvInZy PDXUGaEpK34eVR5HC1Wkq45cVoA4SFIdBkGmMMxeRN58zGpxvlDxtHSmgYzhQY3QAj9+DQplbmRvYmoN IthtBJJHBwTeLhTHBgBwQFKkDQSkATBsSuK2QkNyBn 3HWLCzQKSlFBIqZxQxYWYsTWFeQAaxRFZpPTHgOHW5AHLpTEFtFN1PJfTbKZPyHlY4ZDOgUOMdSSOlcw 1HCBVtHHWvVZA9HeZtBSCcDVVtJQlzAXCyQYV6KRF4FIKxHRExJO6EGwCtUTKfRRSiTnoiGOTePXJkfa 3JSIJoRGJiUum7HBKfTASdNDBeHIzbSAQcLSI4FXw9 EVIuFSWfPC8WFoZeKKKfVYU8WPIfKCChQPBsep2RFEBrZBNpCCp3FSKeEJQpDSBnYXabWKSxJRP3Oerp PBPzWBNpIC7EQkYoHJYuJRK4APlaHQJfODBhkd0UWMTrCIJcSKb1CGVvESVpTPNaIPicYRHkCNG3HCr9 LKFuGNZpWY4QUoGbGCQlVEhnGTQaIIKaKUWurp9EFX PoUTHxBoA4MpNvTLWiWTXtQNhqNSAaTDX3LTK5ATGpITYhFS3EXeZtUKUyRNs8EUSrDNVlIURhee3ZEV QyYORdPIS4IyMwBCTvTWIcWZelOYPeMWK4EIk4IGPqQXRuDK2CCfNvDMOoVOs2JYRpJHZwAUFrug9SAB IiZXFjKQZ1KrNwPZCaXUTuCIjaNLQmICZnQqV5PWFi IZCkJN2XBwLnZQLpVbK4DQUlGOJlDEHqcv2OYXTaPVBiEBpxDETdAIWnKDJsZGsoOTRfBSRaAMQ5EVCa SMYhXQ7SChFyYLIxBdFmWoBuQWIbPMLerz2SOQJnNBMzPzJxAeIoIRMkUEKvLWugSJDbRESfENB6MKLk LUDdGR8BMiVrLCRwTpM8VECaPAJsGACxge0HLUEqTU EgPponDdCvSRIqTXOxILgdEKNzBXT2CbM1NUIoDBTpNZ9BInElQORfBhH2CdxkQQFlVLYfpx6ZDEKbQS OsGKzzWLLfVNIwSNPpTZhdRSRmYCL1UYT1VRFxQCItOO4ARhGqEGxhJWZZCvb0ROnmZ1g5PCPjKd4TO9 Xcb8SlKvJuFSVMYQzxYY2nimPtKXTlDl5DH6vJPvhl ULOnM6QgPTYiWfMlX8LsYIFhYGLtOIRdMNPkNyHpRc9jTIX6RUZfGCRqJSB3FPP6WBN0WjGmIJO4JQA0 VGCbPIW3LhKcRZ3BVe1KRqS5UBM3pYEbGj0INsWfOivLEaOmBT2WXQy= ID Date Data Source [id number] 07/06/2020 04:38:18 PM [facility] Name Value Range Interpretation Code Description Data Zahraa rce(s) Supporting Document(s) Consultation [facility] SGXMEe2sLdESObEl03/FUWjcXGIxw1QbRVwgRAi8LJvcKMQyN2RaHXH7qC2zIND3APaNSoGdHoOtAUQ3 lbm [file] ICAgICAgICAgICAgICAgICAgICAgICAgICAgICAgICAgICAgICAgICAgICAgICAgICAgICAgICAgICAg PPHuGOVkSNSsWMSwLQOmYJ6LYADlCUTtCLToDDVpHT AgICAgICAgICAgICAgICAgICAgICAgICAgICAgICAgICAgICAgICAgICAgICAgICAgICAgICAgICAgIC HtHWCqIXZgOSNsTAUhKSSqSGEoDSGzJSZfCY6DRYLqLEJeZZElFFOnWTJoJFNeARCjDMUsNGJhEJVeUX AgICAgICAgICAgICAgICAgICAgICAgICAgICAgICAg MVOnCQVlUGAbNKJeETVlNSMxVTBmINXwIIIpKYQgIKEqTCWhCK6MCWAzZVAtVJMlYXSmCRLtVYLdNUQm ICAgICAgICAgICAgICAgICAgICAgICAgICAgICAgICAgICAgICAgICAgICAgICAgICAgICAgICAgICAg APBuHCUkAJJkYPVzWYQwAZKdME7HOZLvAKWyTMBlZC AgICAgICAgICAgICAgICAgICAgICAgICAgICAgICAgICAgICAgICAgICAgICAgICAgICAgICAgICAgIC RuUBYgJTKbTXWeMSTnUROhOCYrRNUaCFUmZMPhUN1QCSPgKJOeMTHlCRKcMHLiMMHmQAPgMEOvCJIzYX AgICAgICAgICAgICAgICAgICAgICAgICAgICAgICAg YIVaBYYePYUmJFDyRDIzDEPqMMHgUTRxYUTrYYWsZRNkGFTjVODoSB0IXPBwUGNlONNrAWZlRCYkRLNx ICAgICAgICAgICAgICAgICAgICAgICAgICAgICAgICAgICAgICAgICAgICAgICAgICAgICAgICAgICAg JNAlYGTzULJvTKMdDRPlGWUdLILiMN2BEBEaYIZaVJ AgICAgICAgICAgICAgICAgICAgICAgICAgICAgICAgICAgICAgICAgICAgICAgICAgICAgICAgICAgIC TwXBKwKRGsUALkTHWfEWLoEZTaWQNuMDTbBQYxODEbTO5JABXpFADrDOGvFKHdNLDiITYqBHGsYKDjUK AgICAgICAgICAgICAgICAgICAgICAgICAgICAgICAg RUImOVPeMVRiLQVzSDVdLWKoPTItNZDoUDOySLXdGVTxMYCmIMNwRSLlJB1AQMJwKBYvCKUtBPJrCPSx ICAgICAgICAgICAgICAgICAgICAgICAgICAgICAgICAgICAgICAgICAgICAgICAgICAgICAgICAgICAg PQCnAGGdKNZcZXFoZPUgPENzRVIpAPWzKJ0ONR22dE Rzh9L9INRwPB4xjrf/Oh2NXWivceJuuWIvBS6IJhMwEH4jcm4ILjWlON0tyv6UXWcQSmJwB5Y6tXGbYC BlNIQTUgFvB98lQFzsYy31VVbtOBWiNzHdJOu1Hc0PGpJiO6oxWNAeDgW6SAVmDyKzOPmoRF6Xd5FntB AxDQo+Jm2FZB1gr5NlQXdhNCUoEY4ycf1XGSmMTfMy S1GvzlJ1SPQ6PVClIj8TSLAbKJObwFQqMEWeLLGYZjGtE2YqvJ68YZKTSu2+EVrwzfVvUxcTPoM5CXZg d1JyMIq7SK9FYVRyVZv8kLDvK30yj6FtoAUaLkzjGXTohAcztwJXXMZrA3QjwaAzDDdBG5obTINmWHWo WL2uRESkOGM5MyN1TAQDUP3QBTUwBVWlyEKfKXRtDY MQHV4KUEvfBGQ4VHVfepKfkMCvSUklHU2KHRTgvjPtQARbLECFWXn+Ii6ZRW7or5CnPHryJyVoDW3fvf 1TFCmUSbRdO1H0uVXiF1L2UMbnVh8DNCIrPHMaLEKkAJSMZYdjGG1RYI0fllF6ZJ1XrHUwNDMwSARlhP XcJUo2O60ouZUsTCaxHK7OAYT+Malvin+Am6JXDNtKGMd TZYzCjQnCPRPOaGgI9ZnD3SQe3ThR3KmYW22eQccsdHpWNjjIG4GAP3uZXIsYPKXNF1XlXWnvJ8rgcYq EDGvJQYJXwMnG16laAZhNCSbQKNoBLCoLi4KNGZtK5BzvwIeqOqoacOhMVCsLMOSAL4YGAwdywIrtKMm wLvbPR49pQqfMK7EPx3SQvBpDR6yrp0ItZGzVm3SPA MwVh0AYLNlBEAwLGLfZET1YEZtZbJwESgtELDoOVUlPQW4OISxJJUhUX0IFjPnETJzAOG5IybeSIFkKR Fzfk8BXHUlQHZlUvX3BGWnEGUfQUTcJQcvRQXbPOLoDWJ6ADWsWKFhQJ4BUzDyIOFgEVP7ECmiCAWbNA Jgzg4JJAUrQNDkSNcdKuGmNXAgAVSdFOrlNFGsLWMc RgwpQXLtRHHpFR3FVeQkCDAcQZY9DjtjFRUzCFDvbt3RMKCkLCHrKbJ5CTSzUPBwRMUzCAziGVUfOUS3 EPL8TMVaXPPdWV2YFgZeZTJbIBZqZFliCEWuFFWjjf6XXDTjJNToCSJbDGWyBBQzOUPsPFhdLUIgHKO4 USR8YLMsGKLuVV6PAtDbSLGjVLMnBQuaIRMsKBQwiw 9HPGKrTAIpSqXqFBLeJLWiFSVhDHecEZLpILT5BQR1BKHjUWApFP5HRrEqZUuaRXLPGun3LZcgM1o3SN LnBq8OI8Dgp7VjZEBfBGFQOFulHS4rupLpHNYvOg1MG6cAEgssHvU2PwKhAgH0Fnm3WWKnVKGmVikzCd ZgSWGiMjx9Sj3sSGZdGmNiTCYvVSGvVfgeEXXoDkJh B8NoJnR5MRBlQzp4NrOmQO4FBf4RCuL0NFG0qGDhCu3OBxbkYP4FZCPIE4AVQz== ID Date Data Source [id number] 07/10/2020 08:51:25 AM [facility] Service Cmnt XXX-Imp : NoneO+P Stl Conc : [...] rce(s) Supporting Document(s) ID Date Data Source [id number] 07/07/2020 10:33:56 AM [facility] Service Cmnt XXX-Imp : NoneGI Panel : [...] rce(s) Supporting Document(s) ID Date Data Source [id number] 07/06/2020 02:28:33 PM [facility] Name Value Range Interpretation Code Description Data [facility] Supporting Document(s) Progress Note [facility] [id number]I5FAtLByGwEkTsGKM1 lbm [file] [id number]/[id number]+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 Erythrocytes [#/volume] in Blood by Automated count 3.13 10*6/uL 4.6- 6.[address] [facility] Hemoglobin [Mass/volume] in Blood 9.9 g/dL 13.5-[address] [facility] Hematocrit [Volume Fraction] of Blood by Automated count 28.7 % 4 1-[address] [facility] Erythrocyte mean corpuscular volume [Entitic volume] by Auto mated count 91.4 fL 80-96 [facility] Erythrocyte mean corpuscular hemoglobin [Entitic mass] by Automated count 31.7 pg 27-33 [facility] Erythrocyte mean corpuscular hemoglobin concentration [Mass/volume] by Automated count 34.6 g/dL 32.0-36.0 [facility] Erythrocyte distribution width [Ratio] by Automated count 14.7 % 11.5-14.[address] [facility] Platelets [#/volume] in Blood by Automated count 71 10*3/uL 150-[address] [facility] Differential cell count method - Blood [facility] Neutrophils/100 leukocytes in Blood by Automated count 80 % [facility] Lymphocytes/100 leukocytes in Blood by Automated count 9 % [facility] Monocytes/100 leukocytes in Blood by Automated count 11 % [facility] Eosinophils/100 leukocytes in Blood by Automated count 0 % [facility] Basophils/100 leukocytes in Blood by Automated count 0 % [facility] Neutrophils [#/volume] in Blood by Automated count 4.88 10*3/uL 1.8-[address] [facility] Lymphocytes [#/volume] in Blood by Automated count 0.55 10*3/uL 1.2-[address] [facility] Monocytes [#/volume] in Blood by Automated count 0.64 10*3/uL 0-0.8 [facility] Eosinophils [#/volume] in Blood by Automated count 0.00 10*3/uL 0-0.5 [facility] Basophils [#/volume] in Blood by Automated count 0.00 10*3/uL 0-0.2 [facility] Nucleated erythrocytes/100 leukocytes [Ratio] in Blood by Automated count 0 /100{WBCs} 0-0 [facility] ID Date Data Source [id number] 07/06/2020 12:13:46 PM [facility] Name Value Range Interpretation Code Description Data Zahraa rce(s) Supporting Document(s) Bicarbonate [Moles/volume] in Serum 16 mmol/L 22-[address] [facility] Chloride [Moles/volume] in Serum or Plasma 89 mmol/L 98-[address] [facility] Creatinine [Mass/volume] in Serum or Plasma 1.38 mg/dL 0.70-1.[address] [facility] Glucose [Mass/volume] in Serum or Plasma 179 mg/dL 70-[address] [facility] Potassium [Moles/volume] in Serum or Plasma 3.4 mmol/L 3.4-5.1 [facility] Sodium [Moles/volume] in Serum or Plasma 130 mmol/L 136-[address] [facility] Urea nitrogen [Mass/volume] in Serum or Plasma 35 mg/dL 6-[address] [facility] Anion gap 3 in Serum or Plasma 25 mmol/L 8-[address] [facility] Osmolality of Serum or Plasma by calculation 283 mosm/kg 275-300 [facility] Creatinine/Urea nitrogen [Mass Ratio] in Serum or Plasma 25 [facility] Calcium [Mass/volume] in Serum or Plasma 7.1 mg/dL 8.6-10.[address] [facility] Glomerular filtration rate/1.73 sq M pre dicted among non-blacks [Volume Rate/Area] in Serum or Plasma by Creatinine-based formula (MDRD) 56 mL/min/1.73m2 >[address] [facility] Glomerular filtration rate/1.73 sq M pre dicted among blacks [Volume Rate/Area] in Serum or Plasma by Creatinine-based formula (MDRD) 65 mL/min/1.73m2 >60 [facility] ID Date Data Source [id number] 07/06/2020 12:13:46 PM [facility] Name Value Range Interpretation Code Description Data Zahraa rce(s) Supporting Document(s) Magnesium [Mass/volume] in Serum or Plasma 2.0 mg/dL 1.6-2.6 [facility] ID Date Data Source [id number] 07/06/2020 12:13:[address] [facility] Value Range Interpretation Code Description Data Zahraa rce(s) Supporting Document(s) Phosphate [Mass/volume] in Serum or Plasma 1.7 mg/dL 2.5-4.5 [facility] ID Date Data Source [id number] 07/06/2020 12:09:[address] [facility] Value Range Interpretation Code Description Data Zahraa rce(s) Supporting Document(s) Lactate [Moles/volume] in Serum or Plasma 1.4 mmol/l 0.5-2.2 [facility] ID Date Data Source [id number] 07/06/2020 08:35:[address] [facility] Value Range Interpretation Code Description Data Zahraa rce(s) Supporting Document(s) Leukocytes [#/volume] in Blood by Automated count 8.8 10*3/uL 4-10 [facility] Erythrocytes [#/volume] in Blood by Automated count 3.85 10*6/uL 4.6- 6.[address] [facility] Hemoglobin [Mass/volume] in Blood 12.1 g/dL 13.5-[address] [facility] Hematocrit [Volume Fraction] of Blood by Automated count 35.2 % 4 1-[address] [facility] Erythrocyte mean corpuscular volume [Entitic volume] by Auto mated count 91.3 fL 80-96 [facility] Erythrocyte mean corpuscular hemoglobin [Entitic mass] by Automated count 31.5 pg 27-33 [facility] Erythrocyte mean corpuscular hemoglobin concentration [Mass/volume] by Automated count 34.4 g/dL 32.0[facility] width [Ratio] by Automated count 14.4 % 11.5-14.5 [facility] Platelets [#/volume] in Blood by Automated count 88 10*3/uL 150-[address] [facility] Differential cell count method - Blood [facility] Neutrophils/100 leukocytes in Blood by Automated count 82 % [facility] Lymphocytes/100 leukocytes in Blood by Automated count 6 % [facility] Monocytes/100 leukocytes in Blood by Automated count 12 % [facility] Eosinophils/100 leukocytes in Blood by Automated count 0 % [facility] Basophils/100 leukocytes in Blood by Automated count 0 % [facility] Neutrophils [#/volume] in Blood by Automated count 7.14 10*3/uL 1.8-[address] [facility] Lymphocytes [#/volume] in Blood by Automated count 0.55 10*3/uL 1.2-[address] [facility] Monocytes [#/volume] in Blood by Automated count 1.08 10*3/uL 0-0.[address] [facility] Eosinophils [#/volume] in Blood by Automated count 0.00 10*3/uL 0-0.5 [facility] Basophils [#/volume] in Blood by Automated count 0.01 10*3/uL 0-0.2 [facility] Nucleated erythrocytes/100 leukocytes [Ratio] in Blood by Automated count 0 /100{WBCs} 0-0 [facility] ID Date Data Source [id number] 07/06/2020 06:55:00 AM [facility] Patient: JANICE VERMA Observation Report - [facility].VisitID: [id number] [place] [address] [phone], MRegistration Date/Time: 07/05/2020 20:13 Weight:90.7 kg (S). [...] Value Range Interpretation Code Description Data Zahraa e(s) Supporting Document(s) ID Date Data Source [id number] 07/06/2020 06:54:[address] [facility] CT SCAN OF THE ABDOMEN AND [...] rce(s) Supporting Document(s) ID Date Data Source [id number] 07/06/2020 06:44:00 AM [facility] SCAN OF THE CHEST WITHOUT [...] rce(s) Supporting Document(s) ID Date Data Source [id number] 07/06/2020 05:10:14 AM [facility] US ABDOMEN COMPLETE [id number] RESULTInt erpreted by:RYDER PatelROCEDURE INFORMATION: Exam: US [...] rce(s) Supporting Document(s) ID Date Data Source [id number] 07/06/2020 02:29:[address] [facility] Value Range Interpretation Code Description Data Zahraa rce(s) Supporting Document(s) Color of Urine [facility] Clarity of Urine [facility] Specific gravity of Urine by Refractometry automated 1.016 1.003 -1.030 [facility] pH of Urine by Automated test strip 5.0 5.0-8.0 [facility] Protein [Mass/volume] in Urine by Automated test strip 30 mg/dL Neg [facility] Glucose [Mass/volume] in Urine by Automated test strip Neg [facility] Ketones [Mass/volume] in Urine by Automated test strip 80 mg/dL Neg [facility] Bilirubin.total [Presence] in Urine by Automated test strip Negative [facility] Hemoglobin [Presence] in Urine by Automated test strip Neg [facility] Leukocyte esterase [Presence] in Urine by Automated test strip Negative [facility] Nitrite [Presence] in Urine by Automated test strip Negati [facility] Leukocytes [#/area] in Urine sediment by Automated count 0 -5 [facility] Erythrocytes [#/area] in Urine sediment by Automated count 1 /HPF 0-3 [facility] Epithelial cells.squamous [#/area] in Urine sediment by Auto mated count 1 /HPF None [facility] Mucus [#/area] in Urine sediment by Microscopy low power field None [facility] ID Date Data Source [id number] 07/06/2020 03:42:08 PM [facility] Name Value Range Interpretation Code Description Data Zahraa rce(s) Supporting Document(s) Creatinine [Mass/volume] in Urine 56.0 mg/dl [facility] ID Date Data Source [id number] 07/06/2020 03:42:[address] [facility] Value Range Interpretation Code Description Data Zahraa rce(s) Supporting Document(s) Amphetamine [Presence] in Urine by Screen method Negative [facility] Benzodiazepines [Presence] in Urine by Screen [facility] Cannabinoids [Presence] in Urine by Screen method Negative [facility] Benzoylecgonine [Presence] in Urine by Screen method [facility] Methadone [Presence] in Urine by Screen method Negative [facility] Opiates [Presence] in Urine by Screen method Negative [facility] Oxycodone [Presence] in Urine by Screen method Negative [facility] (NOTE)Positive results are presumptive a nd unconfirmed;confirmatorytesting can be ordered at the [facility] [place] [address] at [phone] within 5 days of collection. Fentanyl+Norfentanyl [Presence] in Urine by Screen method Negative [facility] (NOTE)Positive results are presumptive a nd unconfirmed;confirmatorytesting can be ordered at the [facility] [place] [address] at [phone] within 5 days of collection. Service comment [facility] Results below the indicated cutoff (ng/m L), are reported as"Negative." Note: for medical purposes only; not valid for legalor employment testing. ID Date Data Source [id number] 07/06/2020 03:42:[address] [facility] Value Range Interpretation Code Description Data Zahraa rce(s) Supporting Document(s) Sodium [Moles/volume] in Urine 40 mmol/L [facility] ID Date Data Source [id number] 07/06/2020 05:50:[address] [facility] Value Range Interpretation Code Description Data Zahraa rce(s) Supporting Document(s) Prothrombin time (PT) 15.5 s 12.5-14.[address] [facility] INR in Platelet poor plasma by Coagulation assay 1.21 [facility] Routine intensity oral anticoagulation I NR is typically 2.0-3.0. Target INR must be clinically individualized. ID Date Data Source [id number] 07/06/2020 05:50:[address] [facility] Value Range Interpretation Code Description Data Zahraa rce(s) Supporting Document(s) aPTT in Platelet poor plasma by Coagulation assay 29.7 s 24.0-33. 0 [facility] ID Date Data Source [id number] 07/06/2020 05:54:[address] [facility] Value Range Interpretation Code Description Data Zahraa rce(s) Supporting Document(s) Ethanol [Mass/volume] in Serum or Plasma 0.06 g/dl Negative A [facility] ID Date Data Source [id number] 07/06/2020 06:15:03 AM [facility] Name Value Range Interpretation Code Description Data Zahraa rce(s) Supporting Document(s) Albumin [Mass/volume] in Serum or Plasma by Bromocresol green (BCG) dye binding method 3.3 g/dL 3.5-5.2 [facility] Bilirubin.total [Mass/volume] in Serum or Plasma 0.6 mg/dL <1.2 [facility] Calcium [Mass/volume] in Serum or Plasma 6.7 mg/dL 8.6-10.[address] [facility] Chloride [Moles/volume] in Serum or Plasma 88 mmol/L 98-[address] [facility] Confirmed Creatinine [Mass/volume] in Serum or Plasma 1.39 mg/dL 0.70-1.[address] [facility] Glucose [Mass/volume] in Serum or Plasma 145 mg/dL 70-[address] [facility] Alkaline phosphatase [Enzymatic activity/volume] in Serum or Plasma 66 U/L 40-129 [facility] Potassium [Moles/volume] in Serum or Plasma 3.2 mmol/L 3.4-5.[address] [facility] Confirmed Protein [Mass/volume] in Serum or Plasma 5.7 g/dL 6.4-8.[address] [facility] Sodium [Moles/volume] in Serum or Plasma 131 mmol/L 136-145 [facility] Confirmed Aspartate aminotransferase [Enzymatic activity/volume] in Serum or Plasma 74 U/L <[address] [facility] Urea nitrogen [Mass/volume] in Serum or Plasma 41 mg/dL 6-[address] [facility] Osmolality of Serum or Plasma by calculation 286 mosm/kg 275-300 [facility] Confirmed Creatinine/Urea nitrogen [Mass Ratio] in Serum or Plasma 30 [facility] Bicarbonate [Moles/volume] in Serum 12 mmol/L 22-[address] [facility] Confirmed Alanine aminotransferase [Enzymatic activity/volume] in Seru m or Plasma 37 U/L <41 [facility] Anion gap 3 in Serum or Plasma 32 mmol/L 8-[address] [facility] Confirmed Glomerular filtration rate/1.73 sq M pre dicted among non-blacks [Volume Rate/Area] in Serum or Plasma by Creatinine-based formula (MDRD) 56 mL/min/1.73m2 >[address] [facility] Glomerular filtration rate/1.73 sq M pre dicted among blacks [Volume Rate/Area] in Serum or Plasma by Creatinine-based formula (MDRD) 64 mL/min/1.73m2 >60 [facility] ID Date Data Source [id number] 07/06/2020 11:08:[address] [facility] Value Range Interpretation Code Description Data Zahraa rce(s) Supporting Document(s) Magnesium [Mass/volume] in Serum or Plasma 1.7 mg/dL 1.6-2.6 [facility] ID Date Data Source [id number] 07/06/2020 11:08:[address] [facility] Value Range Interpretation Code Description Data Zahraa rce(s) Supporting Document(s) Phosphate [Mass/volume] in Serum or Plasma 2.6 mg/dL 2.5-4.5 [facility] ID Date Data Source [id number] 07/06/2020 06:19:[address] [facility] Value Range Interpretation Code Description Data Zahraa rce(s) Supporting Document(s) HIV 1+2 Ab+HIV1 p24 Ag [Presence] in Serum or Plasma by Immu noassay Non Reactive [facility] Negative for HIV-1 p24 antigenand HIV-1/ HIV-2 antibodies. Nolaboratory evidence of HIVinfection. ID Date Data Source [id number] 07/06/2020 06:14:[address] [facility] Value Range Interpretation Code Description Data Zahraa rce(s) Supporting Document(s) Hepatitis A virus IgM Ab [Presence] in Serum or Plasma by Im munoassay Non Reactive [facility] No acute infection, susceptible to infec tion. ID Date Data Source [id number] 07/06/2020 06:14:[address] [facility] Value Range Interpretation Code Description Data Zahraa rce(s) Supporting Document(s) Hepatitis B virus surface Ag [Presence] in Serum or Plasma b y Immunoassay Non Reactive [facility] No active or previous infection. Suscept ible to infection. ID Date Data Source [id number] 07/06/2020 06:14:[address] [facility] Value Range Interpretation Code Description Data Zahraa rce(s) Supporting Document(s) Hepatitis B virus core IgM Ab [Presence] in Serum or Plasma by Immunoassay Non Reactive [facility] IgM antibodies to HBc were not detected, does not exclude the possibility of exposure to HBV. ID Date Data Source [id number] 07/06/2020 06:14:[address] [facility] Value Range Interpretation Code Description Data Zahraa rce(s) Supporting Document(s) Hepatitis C virus Ab [Presence] in Serum or Plasma by Immuno assay Non Reactive [facility] No serological evidence of active infect ion. If recent exposure is suspected, test for HCV RNA. ID Date Data Source [id number] 07/06/2020 05:55:[address] [facility] Value Range Interpretation Code Description Data Zahraa rce(s) Supporting Document(s) Lactate [Moles/volume] in Serum or Plasma 5.1 mmol/l 0.5-2.2 [facility] Results called to and read back by 6I KRISTYN RIOS AT 0553 BY [id number] ID Date Data Source [id number] 07/06/2020 05:52:[address] [facility] Value Range Interpretation Code Description Data Zahraa rce(s) Supporting Document(s) Ammonia [Moles/volume] in Plasma 19 umol/L 16-60 [facility] ID Date Data Source [id number] 07/11/2020 08:53:02 AM [facility] Cmnt XXX-Imp : L BICEPMicroorgan ism XXX Cult : No growth 5 days Name Value Range Interpretation Code Description Data Zahraa rce(s) Supporting Document(s) ID Date Data Source [id number] 07/11/2020 08:53:02 AM [facility] Service Cmnt XXX-Imp : CENTRAL LINEMicro organism XXX Cult : No growth 5 days Name Value Range Interpretation Code Description Data Zahraa rce(s) Supporting Document(s) ID Date Data Source [id number] 07/07/2020 01:37:29 PM [facility] Cmnt XXX-Imp : NoneMicroorganism XXX Cult : No growth 1 day Name Value Range Interpretation Code Description Data Zahraa rce(s) Supporting Document(s) ID Date Data Source [id number] 07/06/2020 02:24:[address] [facility] Value Range Interpretation Code Description Data Zahraa rce(s) Supporting Document(s) Glucose [Mass/volume] in Capillary blood by Glucometer 173 mg/dL 70- [address] [facility] ID Date Data Source [id number] 07/06/2020 05:25:00 AM [facility] TSYSORDER [id number] Name Value Range Interpretation Code Description Data Zarhaa rce(s) Supporting Document(s) URINE RBC 3-5 /hpf 0-3 H [facility] URINE WBC 1-3 /hpf 0-5 [facility] URINE EPITHELIAL CELLS 1+ /hpf 0 [facility] URINE BACTERIA 1+ NONE SEEN [facility] URINE HYALINE CAST 10-30 /LPF 0 [facility] ital ID Date Data Source [id number] 07/06/2020 12:24:00 AM [facility] ital TSYSORDER [id number] Name Value Range Interpretation Code Description Data Zahraa rce(s) Supporting Document(s) URINE COLOR. [facility] URINE APPEARANCE CLEAR [facility] URINE GLUCOSE (UA) NEGATIVE mg/dL NEGATIVE [facility] URINE BILIRUBIN 1+(SMALL) NEGATIVE [facility] URINE KETONE 80(LARGE) mg/dL NEGATIVE [facility] SPECIFIC GRAVITY,URINE 1.020 1.001-1.035 [facility] URINE BLOOD 2+(MODERATE) NEGATIVE [facility] PH,URINE 5.5 5.0-9.0 [facility] URINE PROTEIN 1+(30) mg/dL NEGATIVE [facility] URINE UROBILINOGEN NORMAL(0.2-1) mg/dL 0-1 [facility] URINE NITRATE NEGATIVE NEGATIVE [facility] URINE LEUKOCYTE ESTERASE NEGATIVE NEGATIVE [facility] ID Date Data Source [id number] 07/06/2020 12:21:00 AM [facility] l TSYSORDER [id number] Name Value Range Interpretation Code Description Data Zahraa rce(s) Supporting Document(s) AMMONIA < 10 umol/L 11-32 L [facility] ID Date Data Source [id number] 07/05/2020 11:29:00 PM [facility] lidya TSYSORDER [id number] Name Value Range Interpretation Code Description Data Zahraa rce(s) Supporting Document(s) COVID-19 NEGATIVE NEGATIVE [facility] Negative results should be treated as [...] are for the indentification of SARS-CoV-2 RNA. MhgIRFW-CkZ-3 RNA is generally detectable in respiratorysamples during the actue phase of infection. ID Date Data Source [id number] 07/05/2020 11:10:00 PM EST [facility] Name Value Range Interpretation Code Description Data Zahraa rce(s) Supporting Document(s) COVID-19 [facility] This lab was ordered by [facility] and reported by [facility]. ID Date Data Source [id number] 07/12/2020 09:25:00 [facility] Name Value Range Interpretation Code Description Data Zahraa rce(s) Supporting Document(s) [facility] ID Date Data Source [id number] 07/05/2020 09:38:00 PM EST [facility] [id number] Name Value Range Interpretation Code Description Data Zahraa rce(s) Supporting Document(s) LACTIC ACID 9.8 mmol/L 0.4-2.0 H [facility] SAMPLE SLIGHTLY HEMOLYZED CALLED RESULTS TO MORIS IN ED AT 2138 ON 07/05/20 ID Date Data Source [id number] 07/05/2020 09:29:00 PM EST [facility] TSYSORDER [id number] Name Value Range Interpretation Code Description Data Zahraa rce(s) Supporting Document(s) GLUCOSE 174 mg/dL 74-106 H [facility] BLOOD UREA NITROGEN 51 mg/dL 7-18 *H [facility] ital CREATININE 2.7 mg/dL 0.7-1.3 H [facility] SODIUM 127 mmol/L 136-145 L [facility] POTASSIUM 3.1 mmol/L 3.5-5.1 L [facility] CHLORIDE 78 mmol/L 98-107 *L [facility] CO2 14 mmol/L 21-32 *L [facility] CALCIUM 8.2 mg/dL 8.5-10.1 L [facility] ANION GAP 35.0 mmol/L 5-12 H [facility] GLOMERULAR FILTRATION RATE 25 mL/min [facility] GFR IS CALCULATED IN mL/min/1.73m2 VINICIUS L FUNCTION: >90MILDLY DECREASED: 60-89MILDY TO MODERATELY DECREASED: 45-59 MODERATELY TO SEVERELY DECREASED: 30-44SEVERELY DECREASED: 15-29RENAL FAILURE: <15 AST 118 U/L 15-37 *H [facility] ALT 61 U/L 12-78 [facility] ALKALINE PHOSPHATASE 100 U/L 46-116 [facility] pital TOTAL BILIRUBIN 0.8 mg/dL 0.2-1.0 [facility] TOTAL PROTEIN 8.2 g/dl 6.4-8.2 [facility] ALBUMIN 3.9 gm/dL 3.4-5.0 [facility] ID Date Data Source [id number] 07/05/2020 09:29:00 PM [facility] TSYSORDER [id number] Name Value Range Interpretation Code Description Data Zahraa rce(s) Supporting Document(s) MAGNESIUM 2.7 mg/dL 1.8-2.4 H [facility] ID Date Data Source [id number] 07/05/2020 09:29:00 PM EST [facility] TSYSORDER [id number] Name Value Range Interpretation Code Description Data Zahraa rce(s) Supporting Document(s) LIPASE 124 U/L 73-393 [facility] ID Date Data Source [id number] 07/05/2020 09:24:00 PM EST [facility] TSYSORDER [id number] Name Value Range Interpretation Code Description Data Zahraa rce(s) Supporting Document(s) ETHYL ALCOHOL 0.26 % 0-0.01 H [facility] ID Date Data Source [id number] 07/05/2020 09:17:00 PM EST [facility] TSYSORDER [id number] Name Value Range Interpretation Code Description Data Zahraa rce(s) Supporting Document(s) TSH 1.03 uIU/mL 0.36-3.74 [facility] ID Date Data Source [id number] 07/05/2020 09:12:00 PM EST [facility] TSYSORDER [id number] Name Value Range Interpretation Code Description Data Zahraa rce(s) Supporting Document(s) PROTHROMBIN TIME (PATIENT) 10.6 SECONDS 9.1-11.6 [facility] INR 1.02 0.87-1.06 [facility] ID Date Data Source [id number] 07/05/2020 09:12:00 PM [facility] TSYSORDER [id number] Name Value Range Interpretation Code Description Data Zahraa rce(s) Supporting Document(s) PARTIAL THROMBOPLASTIN TIME 24.4 SECONDS 21.2-27.3 [facility] ID Date Data Source [id number] 07/05/2020 08:48:00 PM [facility] TSYSORDER [id number] Name Value Range Interpretation Code Description Data Zahraa rce(s) Supporting Document(s) WHITE BLOOD COUNT 16.4 K/mm3 4.0-10.0 H [facility] lidya RED BLOOD COUNT 5.20 M/mm3 4.50-6.00 [facility] HEMOGLOBIN 16.4 gm/dL 14.0-18.0 [facility] HEMATOCRIT 45.2 % 42.0-54.0 [facility] MEAN CELL VOLUME 86.9 fl 80-96 [facility] MEAN CORPUSCULAR HEMOGLOBIN 31.5 pg 27.0-31.0 H [facility] MEAN CORPUSCULAR HGB CONC 36.3 g/dl 32.0-36.0 H [facility] RED CELL DISTRIBUTION WIDTH 13.3 % 10.0-14.5 [facility] PLATELET COUNT 198 K/mm3 172-450 [facility] MEAN PLATELET VOLUME 11.0 fl 9.0-13.0 [facility] pital GRAN % 87.9 % 50-80.0 H [facility] IG% 0.1 % 0.0-0.2 [facility] LYMPH % 4.5 % 25.0-50.0 *L [facility] MONO % 7.3 % 2.0-10.0 [facility] EOS % 0.1 % 0-5.0 [facility] BASO % 0.1 % 0.0-2.0 [facility] GRAN # 14.4 K/mm3 2.0-8.00 H [facility] IG# 0.0 K/mm3 0.0-0.2 [facility] LYMPH # 0.7 K/mm3 1.0-5.0 L [facility] MONO # 1.2 K/mm3 0.10-1.20 [facility] EOS # 0.0 K/mm3 0.0-0.5 [facility] BASO # 0.0 K/mm3 0.0-0.2 [facility] ID Date Data Source [id number] 07/12/2020 09:25:00 AM EST [facility] Name Value Range Interpretation Code Description Data Zahraa rce(s) Supporting Document(s) [facility] ID Date Data Source [id number] 07/24/2019 08:32:00 PM [facility] Yamilet daniel Patient: JANICE VERMA Observation Report - [facility].VisitID: [id number] [place] [address] [phone], MRegistration Date/Time: 07/24/2019 17:27 Weight:99.7 kg (S). [...] signed by Edita Jasmine P.A. 07/24/2019 19:54) Addenda for JANICE VERMA VisitID: [id number] Date: 07/24/2019 07/24/2019 20:30indomethacin 25 mg capsule Take 1 capsule every eight hours as needed for pain for 5 days -- Dispense 15 capsule. Refills: 0. Substitution permitted.Pharmacy - [id number] [address] [place] [address]. FaxNumber: .(Electronically signed by Edita Jasmine - 07/24/2019 20:30) Name Value Range Interpretation Code Description Data Zahraa rce(s) Supporting Document(s) ID Date Data Source [id number] 07/24/2019 07:56:00 PM [facility] Patient: JANICE VERMA Observation Report - [facility].VisitID: [id number] [place] [address] [phone], MRegistration Date/Time: 07/24/2019 17:27 Weight:99.7 kg (S). [...] completed Current non-drinker of alcohol (finding) [facility] Tobacco use and exposure 07/06/2020 12:00:00 AM EST Never used co mpleted Never used [facility] Cigarette pack-years 07/06/2020 12:00:00 AM EST [facility] Cigarettes smoked current (pack per day) - Reported 07/06/20 12:00:00 AM EST [facility] Smoking 07/06/2020 12:00:00 AM EST Current every day smoker co mpleted Current every day smoker [facility] Vital Signs ID Date Data Source [id number] 09/10/2020 08:14:00 PM EST [facility] Name Value Range Interpretation Code Description Data Source(s) WEIGHT 88.3 kilos 88.3 kilos [facility] HEIGHT 177.8 centimeters 177.8 centimeters [facility] ID Date Data Source [id number] 07/14/2020 03:31:42 PM [facility] Name Value Range Interpretation Code Description Data Source(s) WEIGHT RECORDED 190.26 lb 190.26 lb [facility] Body height Measured 68 in 68 in [facility] TRANSFER FROM [facility] Patient Treatment Plan of Care Planned Activity Planned Date Details Description Data Source (s) Aspirin 81 MG Delayed Release Oral Tablet 07/10/2020 12:00:[address] [facility] Magnesium Oxide 400 MG Oral Tablet 07/10/2020 12:00:[address] [facility] potassium phosphate 155 MG / Sodium Phos phate, Dibasic 852 MG / Sodium Phosphate, Monobasic 130 MG Oral Tablet 07/10/2020 12:00:[address] [facility] pantoprazole 40 MG Delayed Release Oral Tablet 07/10/2020 12:00:[address] [facility] Hydroxyzine Hydrochloride 25 MG Oral Tablet 07/10/2020 12:00:[address] [facility] maalox/lidocaine/diphenhydrAMINE 1:1:1 SWISH & SWAL or al suspension 07/10/2020 12:00:00 AM [facility] Folic Acid 1 MG Oral Tablet 07/10/2020 12:00:[address] [facility] Thiamine 100 MG Oral Tablet 07/10/2020 12:00:[address] [facility] Lisinopril 10 MG Oral Tablet 07/10/2020 12:00:[address] [facility] vancomycin 50 mg/mL PO SOLN oral solution 07/10/2020 12:00:00 AM [facility] fentaNYL (SUBLIMAZE) 100 MCG/2ML (PF) injection 07/06/2020 01:37:[address] [facility] Capsaicin 1 MG/ML Topical Cream 06/24/2019 12:00:[address] [facility] Aspirin 325 MG Oral Tablet U [facility] Lisinopril [address] [facility] Hydroxyzine Hydrochloride [address] [facility] Indomethacin (INDOCIN PO) [facility] Esomeprazole 20 MG Delayed Release Oral Capsule [facility] Atenolol [address] [facility]
--- OUTSIDE RECORDS SUMMARY | 2020-09-20 17:10 | CCD ---
Author Author [facility] Organization [facility] Address Unknown Phone Unavailable Care Team Providers Care Decorating Equipment Setter Name Role Phone ALIA, SONAM PA Unavailable [...] Unavailable TODD ELKINS DO Unavailable Unavailable TRI BRENNANC, MSN Unavailable Unavailab le BRENNAN, TRI ANNE-MARIE PNEUMATIC TOOL OPERATOR-C, MSN Unavailable Unavailab le BRENNAN, TRI ANNE-MARIE PNEUMATIC TOOL OPERATOR-C, MSN Unavailable Unavailab le BRENNAN, TRI ANNE-MARIE PNEUMATIC TOOL OPERATOR-C, MSN Unavailable Unavailab le BRENNAN, TRI ANNE-MARIE PNEUMATIC TOOL OPERATOR-C, MSN Unavailable Unavailab le BRENNAN, TRI ANNE-MARIE PNEUMATIC TOOL OPERATOR-C, MSN Unavailable Unavailab le BRENNAN, TRI ANNE-MARIE PNEUMATIC TOOL OPERATOR-C, MSN Unavailable Unavailab le BRENNAN, TRI ANNE-MARIE PNEUMATIC TOOL OPERATOR-C, MSN Unavailable Unavailab le BRENNAN, TRI ANNE-MARIE PNEUMATIC TOOL OPERATOR-C, MSN Unavailable Unavailab le BRENNAN, TRI ANNE-MARIE PNEUMATIC TOOL OPERATOR-C, MSN Unavailable Unavailab le BRENNAN, TRI ANNE-MARIE PNEUMATIC TOOL OPERATOR-C, MSN Unavailable Unavailab le BRENNAN, TRI ANNE-MARIE PNEUMATIC TOOL OPERATOR-C, MSN Unavailable Unavailab le BRENNAN, TRI ANNE-MARIE PNEUMATIC TOOL OPERATOR-C, MSN Unavailable Unavailab le BRENNAN, TRI ANNE-MARIE PNEUMATIC TOOL OPERATOR-C, MSN Unavailable Unavailab le BRENNAN, TRI ANNE-MARIE PNEUMATIC TOOL OPERATOR-C, MSN Unavailable Unavailab le BRENNAN, TRI ANNE-MARIE PNEUMATIC TOOL OPERATOR-C, MSN Unavailable Unavailab le BRENNAN, TRI ANNE-MARIE PNEUMATIC TOOL OPERATOR-C, MSN Unavailable Unavailab le BRENNAN, TRI ANNE-MARIE PNEUMATIC TOOL OPERATOR-C, MSN Unavailable Unavailab le BRENNAN, TRI ANNE-MARIE PNEUMATIC TOOL OPERATOR-C, MSN Unavailable Unavailab le BRENNAN, TRI ANNE-MARIE PNEUMATIC TOOL OPERATOR-C, MSN Unavailable Unavailab le BRENNAN, TRI ANNE-MARIE PNEUMATIC TOOL OPERATOR-C, MSN Unavailable Unavailab le BRENNAN, TRI ANNE-MARIE PNEUMATIC TOOL OPERATOR-C, MSN Unavailable Unavailab le BRENNAN, TRI ANNE-MARIE PNEUMATIC TOOL OPERATOR-C, MSN Unavailable Unavailab le BRENNAN, TRI ANNE-MARIE PNEUMATIC TOOL OPERATOR-C, MSN Unavailable Unavailab le BRENNAN, TRI ANNE-MARIE PNEUMATIC TOOL OPERATOR-C, MSN Unavailable Unavailab le BRENNAN, TRI ANNE-MARIE PNEUMATIC TOOL OPERATOR-C, MSN Unavailable Unavailab le BRENNAN, TRI ANNE-MARIE PNEUMATIC TOOL OPERATOR-C, MSN Unavailable Unavailab le BRENNAN, TRI ANNE-MARIE PNEUMATIC TOOL OPERATOR-C, MSN Unavailable Unavailab le BRENNAN, TRI ANNE-MARIE PNEUMATIC TOOL OPERATOR-C, MSN Unavailable Unavailab le BRENNAN, TRI ANNE-MARIE PNEUMATIC TOOL OPERATOR-C, MSN Unavailable Unavailab le BRENNAN, TRI ANNE-MARIE PNEUMATIC TOOL OPERATOR-C, MSN Unavailable Unavailab le BRENNAN, TRI ANNE-MARIE PNEUMATIC TOOL OPERATOR-C, MSN Unavailable Unavailab le BRENNAN, TRI ANNE-MARIE PNEUMATIC TOOL OPERATOR-C, MSN Unavailable Unavailab le BRENNAN, TRI ANNE-MARIE PNEUMATIC TOOL OPERATOR-C, MSN Unavailable Unavailab le BRENNAN, TRI ANNE-MARIE PNEUMATIC TOOL OPERATOR-C, MSN Unavailable Unavailab le BRENNAN, TRI ANNE-MARIE PNEUMATIC TOOL OPERATOR-C, MSN Unavailable Unavailab le BRENNAN, TRI ANNE-MARIE PNEUMATIC TOOL OPERATOR-C, MSN Unavailable Unavailab le BRENNAN, TRI ANNE-MARIE PNEUMATIC TOOL OPERATOR-C, MSN Unavailable Unavailab le BRENNAN, TRI ANNE-MARIE PNEUMATIC TOOL OPERATOR-C, MSN Unavailable Unavailab le BRENNAN, TRI ANNE-MARIE PNEUMATIC TOOL OPERATOR-C, MSN Unavailable Unavailab le BRENNAN, TRI ANNE-MARIE PNEUMATIC TOOL OPERATOR-C, MSN Unavailable Unavailab le BRENNAN, TRI ANNE-MARIE PNEUMATIC TOOL OPERATOR-C, MSN Unavailable Unavailab le Kat, Presybeterian Unavailable Unavailable Apache, Presybeterian Unavailable Unavailable Kat, Presybeterian Unavailable Unavailable Apache, Presybeterian Unavailable Unavailable Apache, Presybeterian Unavailable Unavailable MITALI, BILLY EDITA PA Unavailable [...] Unavailable MITALI, BILLY EDITA PA Unavailable Unavailable ALEALINA JORDAN MD Unavailable Unavailable ALEALINA JORDAN MD Unavailable Unavailable ALEKSALINA CREWS MD Unavailable Unavailable ALEKSALINA CREWS MD Unavailable Unavailable SHAHRAMKurt MD Unavailable Unavailable [...] Unavailable Unavailable SHAHRAMKurt LOPEZ MD Unavailable Unavailable SHAHRAM S GRETA HANDY [...] HANDY Unavailable Unavailable SHAHRAMKurt MD Unavailable Unavailable SHAHRAM, S GRETA MD Unavailable [...] BILLY EDITA PA Unavailable Unavailable MITALI, BILLY EDIAT PA Unavailable Unavailable MITALI, BILLY EDITA PA [...] L NORMA PA Unavailable Unavailable Edick, Whitney HOUSING OFFICER Unavailable Unavailable Edick, Whitney HOUSING OFFICER Unavailable Unavailable Edick, Whitney HOUSING OFFICER Unavailable Unavailable Edick, Whitney HOUSING OFFICER Unavailable Unavailable Edick, Whitney HOUSING OFFICER Unavailable Unavailable Edick, Whitney HOUSING OFFICER Unavailable Unavailable Edick, Whitney HOUSING OFFICER Unavailable Unavailable Edick, Whitney HOUSING OFFICER Unavailable Unavailable Edick, Whitney HOUSING OFFICER Unavailable Unavailable Edick, Whitney HOUSING OFFICER Unavailable Unavailable Edick, Whitney HOUSING OFFICER Unavailable Unavailable Edick, Whitney HOUSING OFFICER Unavailable Unavailable BRENNAN, TRI ANNE-MARIE PNEUMATIC TOOL OPERATOR-C, MSN Unavailable Unavailab le BRENNAN, TRI ANNE-MARIE PNEUMATIC TOOL OPERATOR-C, MSN Unavailable Unavailab le BRENNAN, TRI ANNE-MARIE PNEUMATIC TOOL OPERATOR-C, MSN Unavailable Unavailab le BRENNAN, TRI ANNE-MARIE PNEUMATIC TOOL OPERATOR-C, MSN Unavailable Unavailab le BRENNAN, TRI ANNE-MARIE PNEUMATIC TOOL OPERATOR-C, MSN Unavailable Unavailab le BRENNAN, TRI ANNE-MARIE PNEUMATIC TOOL OPERATOR-C, MSN Unavailable Unavailab le BRENNAN, TRI ANNE-MARIE PNEUMATIC TOOL OPERATOR-C, MSN Unavailable Unavailab le BRENNAN, TRI ANNE-MARIE PNEUMATIC TOOL OPERATOR-C, MSN Unavailable Unavailab le BRENNAN, TRI ANNE-MARIE PNEUMATIC TOOL OPERATOR-C, MSN Unavailable Unavailab le BRENNAN, TRI ANNE-MARIE PNEUMATIC TOOL OPERATOR-C, MSN Unavailable Unavailab le BRENNAN, TRI ANNE-MARIE PNEUMATIC TOOL OPERATOR-C, MSN Unavailable Unavailab le BRENNAN, TRI ANNE-MARIE PNEUMATIC TOOL OPERATOR-C, MSN Unavailable Unavailab le BRENNAN, TRI ANNE-MARIE PNEUMATIC TOOL OPERATOR-C, MSN Unavailable Unavailab le BRENNAN, TRI ANNE-MARIE PNEUMATIC TOOL OPERATOR-C, MSN Unavailable Unavailab le BRENNAN, TRI ANNE-MARIE PNEUMATIC TOOL OPERATOR-C, MSN Unavailable Unavailab le BRENNAN, TRI ANNE-MARIE PNEUMATIC TOOL OPERATOR-C, MSN Unavailable Unavailab le BRENNAN, TRI ANNE-MARIE PNEUMATIC TOOL OPERATOR-C, MSN Unavailable Unavailab le BRENNAN, TRI ANNE-MARIE PNEUMATIC TOOL OPERATOR-C, MSN Unavailable Unavailab le BRENNAN, TRI ANNE-MARIE PNEUMATIC TOOL OPERATOR-C, MSN Unavailable Unavailab le BRENNAN, TRI ANNE-MARIE PNEUMATIC TOOL OPERATOR-C, MSN Unavailable Unavailab le BRENNAN, TRI ANNE-MARIE PNEUMATIC TOOL OPERATOR-C, MSN Unavailable Unavailab le BRENNAN, TRI ANNE-MARIE PNEUMATIC TOOL OPERATOR-C, MSN Unavailable Unavailab le BRENNAN, TRI ANNE-MARIE PNEUMATIC TOOL OPERATOR-C, MSN Unavailable Unavailab le BRENNAN, TRI ANNE-MARIE PNEUMATIC TOOL OPERATOR-C, MSN Unavailable Unavailab le BRENNAN, TRI ANNE-MARIE PNEUMATIC TOOL OPERATOR-C, MSN Unavailable Unavailab le BRENNAN, TRI ANNE-MARIE PNEUMATIC TOOL OPERATOR-C, MSN Unavailable Unavailab le BRENNAN, TRI ANNE-MARIE PNEUMATIC TOOL OPERATOR-C, MSN Unavailable Unavailab le BRENNAN, TRI ANNE-MARIE PNEUMATIC TOOL OPERATOR-C, MSN Unavailable Unavailab le BRENNAN, TRI ANNE-MARIE PNEUMATIC TOOL OPERATOR-C, MSN Unavailable Unavailab le BRENNAN, TRI ANNE-MARIE PNEUMATIC TOOL OPERATOR-C, MSN Unavailable Unavailab le BRENNAN, TRI ANNE-MARIE PNEUMATIC TOOL OPERATOR-C, MSN Unavailable Unavailab le BRENNAN, TRI ANNE-MARIE PNEUMATIC TOOL OPERATOR-C, MSN Unavailable Unavailab le BRENNAN, TRI ANNE-MARIE PNEUMATIC TOOL OPERATOR-C, MSN Unavailable Unavailab le BRENNAN, TRI ANNE-MARIE PNEUMATIC TOOL OPERATOR-C, MSN Unavailable Unavailab le BRENNAN, TRI ANNE-MARIE PNEUMATIC TOOL OPERATOR-C, MSN Unavailable Unavailab le BRENNAN, TRI ANNE-MARIE PNEUMATIC TOOL OPERATOR-C, MSN Unavailable Unavailab le BRENNAN, TRI ANNE-MARIE PNEUMATIC TOOL OPERATOR-C, MSN Unavailable Unavailab le BRENNAN, TRI ANNE-MARIE PNEUMATIC TOOL OPERATOR-C, MSN Unavailable Unavailab le BRENNAN, TRI ANNE-MARIE PNEUMATIC TOOL OPERATOR-C, MSN Unavailable Unavailab le BRENNAN, TRI DE OLIVEIRANDA PNEUMATIC TOOL OPERATOR-C, MSN Unavailable Unavailab le BRENNAN, TRI ANNE-MARIE PNEUMATIC TOOL OPERATOR-C, MSN Unavailable Unavailab le BRENNAN, TRI ANNE-MARIE PNEUMATIC TOOL OPERATOR-C, MSN Unavailable Unavailab Melissa Cortez MD Unavailable Unavailable MARIAM, Melissa MORA MD Unavailable Unavailable MARIAMMelissa MD Unavailable Unavailable [...] ADAMS, VALERIY MIKA RPA-C Unavailable Unavailable AMZUTA, Ashkan FERNANDO MD Unavailable Unavailable AMZUTA, Ashkan KASSIE MD [...] AMZUTA, Ashkan KASSIE MD Unavailable Unavailable AMZUTA, Askhan KASSIE MD Unavailable Unavailable AMZUTA, Ashkan KASSIE MD Unavailable Unavailable AMZUTA, Ashkan KASSIE MD Unavailable Unavailable AMZUTA, Ashkan KASSIE MD Unavailable Unavailable AMZUTA, Ashkan FERNANDO MD Unavailable Unavailable AMZUTA, Ashkan KASSIEKAYLEIGH HANDY Unavailable Unavailable AMZUTA, Ashkan FERNANDO MD Unavailable Unavailable AMZUTA, Ashkan KASSIE MD Unavailable Unavailable AMZUTA, Ashkan KASSIE MD Unavailable Unavailable AMZUTA, Ashkan KASSIE MD Unavailable Unavailable AMZUTA, Ashkan KASSIE MD Unavailable Unavailable AMZUTA, Ashkan KASSIEKAYLEIGH HANDY Unavailable Unavailable AMZUTA, Ashkan KASSIE MD Unavailable Unavailable AMZUTA, Ashkan KASSIE MD Unavailable Unavailable AMZUTA, G KASSIE MD Unavailable Unavailable ESTHER PACHECO . Unavailable Unavailable Koby KAYE PA Unavailable Unavailable Koby KAYE PA Unavailable Unavailable Koby KAYE PA Unavailable Unavailable Koby KAYE PA Unavailable Unavailable KAYE, W FREDI PA Unavailable Unavailable KAYE, W FREDI PA Unavailable Unavailable KAYE, W FREDI PA Unavailable Unavailable KAYE, W FREDI PA Unavailable Unavailable KAYE, W FREDI PA Unavailable Unavailable KAYE, W FREDI PA Unavailable Unavailable KAYE, W FREDI PA Unavailable Unavailable KAYE, W FREDI PA Unavailable Unavailable KAYE, W FREDI PA Unavailable Unavailable KAYE, W FREDI PA Unavailable Unavailable AKYE, W FREDI PA Unavailable Unavailable KAYE, W [...] PA Unavailable Unavailable Katarzyna Haas MD Unavailable [email or web address] Katarzyna Haas MD Unavailable [email or web address] Katarzyna Haas MD Unavailable [email or web address] Katarzyna Haas MD Unavailable [email or web address] Katarzyna Haas MD Unavailable [email or web address] Katarzyna Haas MD Unavailable [email or web address] Katarzyna Haas MD Unavailable [email or web address] Gisselle Segura MD Unavailable Unavailable Gisselle Segura MD Unavailable Unavailable Gisselle Segura MD Unavailable Unavailable Colton, Gisselle Cade MD Unavailable Unavailable Colton, Gisselle Cade MD Unavailable Unavailable Colton, Gisselle Cade MD Unavailable Unavailable Colton, Gisselle Cade MD Unavailable Unavailable Colton, Gisselle Cade MD Unavailable Unavailable Colton, Gisselle Cade MD Unavailable Unavailable Colton, Gisselle Cade MD Unavailable Unavailable Colton, Gisselle Cade MD Unavailable Unavailable Coltno, Gisselle Cade MD Unavailable Unavailable Colton, Gisselle [...] Gisselle Cade MD Unavailable Unavailable Colton, Gisselle Cdae MD Unavailable Unavailable Colton, Gisselle Cdae MD Unavailable Unavailable Colton, Gisselle Cade MD [...] is protected by Article 27-F of the [facility] Public Health law. If you continue you may have access to information: Regarding HIV / AIDS; Provided by facilities licensed or operated by the [facility] Office of Mental Health; or Provided by the [facility] Office for People With Developmental Disabilities. If such information is present, then the following [facility] mandated warning applies: This information [...] law may result in a fine or snf sentence or both. A general authorization for the release of medical or other information is NOT sufficient authorization for further disc losure. Family History Family Member Name Family Member Gender Family Member Status Date o f Status Description Data Source(s) Unknown Male Problem [facility] ([facility]) Encounters Encounter Providers Location Date Indications Data Source(s ) Inpatient Attender: TODD ELKINS DOAttender : TODD ELKINS DOAttender: AMADO BAXTER MDAttender: AMADO BAXTER MDAdmitter: AMADO BAXTER MD [id number] 08/31/2020 03:32:00 AM EST - 09/04/2020 01:30:00 PM [facility] ospital Patient discharged. Emergency Attender: NORMA MILLER EMERGENCY ROOM-ER 03:59:00 PM EST - 08/30/2020 11:50:00 PM [facility] Patient discharged. Outpatient Attender: NORMA DE LA CRUZ PAConsultant: [facility] [id number] 08/30/2020 03:35:00 PM [facility] Outpatient Attender: ESTHER Sullivan [id number] 07/06/2020 02:28:[address] [facility] Outpatient Attender: EDITA JASMINE PAConsultant: [facility] [id number] 07/06/2020 06:41:00 AM [facility] Inpatient Attender: Katarzyna Lara DAttender: KASSIE BROOKS MDAttender: ALINA NORMAN MDAdmitter: KASSIE BROOKS MDReferrer: ALINA NORMAN MD [id number] 07/06/2020 12:00:00 AM EST - 07/10/2020 04:00:00 PM ES T Noninfective gastroenteritis and colitis, unspecified [facility] Noninfective gastroenteritis and colitis , unspecified Patient discharged. Emergency Attender: EDITA MILLER EMERGENCY ROOM-ER 07/05/2020 08:45:00 PM EST - 07/06/2020 12:35:00 AM [facility] Patient discharged. Outpatient Attender: ADDISON JOY 08/09/2019 01:11:00 PM ES T [facility] 08/09/2019 12:00:00 AM EST eCW1 ([facility]) [facility] C [facility] 08/03/2019 12:00:00 AM EST eCW1 ([facility]) [place] [facility] 08/02/2019 12:00:00 AM EST eCW1 ([facility]) [facility] C EN[facility] 08/02/2019 12:00:00 AM EST eCW1 ([facility]) [place] [facility] 08/02/2019 12:00:00 AM EST eCW1 ([facility]) [facility] C ENTER 07/28/2019 12:00:00 AM EST eCW1 ([facility]) Emergency Attender: EDITA GALLARDOeferrer: ANNE-MARIE MCDERMOTT, MSN 07/24/2019 05:33:00 PM EST - 07/24/2019 06:15:00 PM [facility] Patient discharged. Outpatient Attender: EDITA JASMINE PAConsultant: [facility] [id number] 07/21/2019 03:15:00 PM [facility] Emergency Attender: EDITA JASMINE PAReferrer: B JACOB BOONE EMERGENCY ROOM-ER 07/21/2019 02:23:00 PM EST - 07/21/2019 03:58:00 PM [facility] Patient discharged. Outpatient Attender: JACOB PEDERSENConsumaría [facility] [id number] 07/01/2019 11:00:00 AM EDT [facility] Outpatient Attender: JACOB PEDERSEN 07/01/2019 1 0:52:00 AM [facility] Outpatient Attender: ADDISON JOY 06/28/2019 12:50:00 PM [facility] Outpatient Attender: JACOB PEDERSEN 05/11/2019 0 1:56:00 PM [facility] Outpatient Attender: ADDISON JOY 05/10/2019 01:15:00 PM [facility] Emergency Attender: UCHE Wintererrer : JACOB PEDERSEN EMERGENCY ROOM-ER 04/21/2019 09:35:00 AM EDT - 04/21/2019 02:56:00 PM [facility] Patient discharged. Outpatient Attender: ADDISON JOY 03/29/2019 09:12:00 AM [facility] Outpatient Attender: JACOB PEDERSENReferr er: JACOB PEDERSEN 03/19/2019 09:00:00 AM [facility] Outpatient Attender: JACOB PEDERSENReferr er: [facility] 03/18/2019 01:09:00 PM EDT - 03/18/2019 01:09:00 PM [facility] Outpatient Attender: MIKA Phillipsrer: JACOB OTTO EMERGENCY ROOM-LAB REF 03/05/2019 04:18:00 PM EDT - 03/05/2019 04:18:00 PM [facility] Outpatient Attender: MIKA HILL 03/05/2019 02:50:00 PM [facility] Emergency Attender: EDITA Valentiner: JACOB MATT EMERGENCY ROOM-ER 03/03/2019 05:24:00 PM EDT - 03/03/2019 05:50:00 PM [facility] Emergency Attender: EDITA GALLARDOeferrer: JACOB MATT EMERGENCY ROOM-ER 03/02/2019 06:19:00 PM EDT - 03/02/2019 08:33:00 PM [facility] Outpatient Attender: JACOB PEDERSEN 02/05/2019 0 2:40:00 PM [facility] Outpatient Attender: Whitney Alicea NP 12/11/2018 02:30:00 P [facility] Outpatient Attender: Whitney Alicea NP 11/13/2018 02:20:00 [facility] Emergency Attender: YOSELIN OWENSReferrer: JACOB LEHMAN EMERGENCY ROOM-ER 10/27/2018 12:47:00 PM EST - 10/27/2018 10:50:00 PM [facility] Outpatient Attender: Whitney Alicea NP 10/16/2018 07:53:00 A [facility] Outpatient Attender: JACOB PEDERSENConmarry tant: [facility] 08/04/2018 09:30:00 AM [facility] Outpatient Attender: GRETA OMALLEY MDReferrer: JACOB QUINONES 03/24/2018 01:00:00 PM EDT - 03/24/2018 01:00:00 PM [facility] Outpatient Attender: Rayo Segura MDReferrer: JACOB MARTINEZ 12/16/2017 07:42:00 AM EDT - 12/16/2017 07:42:00 AM [facility] Emergency Attender: SONAM GALLARDOeferrer: JACOB LEHMAN EMERGENCY ROOM-ER 04/30/2017 11:36:00 AM EDT - 04/30/2017 03:25:00 PM [facility] Outpatient Attender: JACOB PEDERSENReferr er: JACOB PEDERSEN EMERGENCY ROOM-ULTRA 04/02/2017 08:14:00 AM EDT - 04/02/2017 08:14:00 AM [facility] Outpatient Attender: Rayo Segura MD 11/05/2016 11:12: 00 AM [facility] Emergency Attender: Kalia Stephens EMERGENCY ROOM-ER 11/01 04:58:00 PM EDT - 11/28/2014 05:50:00 PM [facility] Emergency Attender: FREDI MILLER 10:23:00 AM EDT - 02/12/2014 11:25:00 AM [facility] Medications Medication Brand Name Start Date Product Form Dose Route Admi nistrative Instructions Pharmacy Instructions Status Indications Reaction Description Data Source(s) Alprazolam 0.25 MG Oral Tablet alprazolam (XANAX) tabl et 0.5 mg alprazolam (XANAX) tablet 0.5 mg 07/10/2020 09:30:00 AM EST 0.5 mg Oral completed 0.5 mg, Oral, Once, Fri07/10/20 at 0930, For 1 dose [facility] Medication administered onsite 0.4 ML Enoxaparin sodium 100 MG/ML Prefi lled Syringe enoxaparin sodium (LOVENOX) injection 40 mg enoxaparin sodium (LOVENOX) injection 40 mg 07/10/2020 09:00:00 AM EST 40 mg Subcutaneous active 40 mg, Subcutaneous, Daily Standard, First dose on Fri07/10/20 at 0900, For 30 days [facility] Medication administered onsite potassium phosphate 155 [...] mEq), and potassium 45 mg (1.1 mEq)
[facility] Medication administered onsite magnesium sulfate in dextrose 5 % infusion (premix) 1 g [id number] 07/10/2020 08:00:00 AM EST 1 g Intravenous completed 1 g, Intravenous, Administer over 60 Minutes, Once, Fri07/10/20 at 0800, For 1 dose [facility] Medication administered onsite potassium phosphate 155 [...] mEq), and potassium 45 mg (1.1 mEq)
[facility] Medication administered onsite potassium phosphate 155 MG / Sodium Phos phate, Dibasic 852 MG / Sodium Phosphate, Monobasic 130 MG Oral Tablet K Phos [place]-Sod Phos Di & [place] [id number] MG Oral Tablet (K PHOS NEUTRAL) K Phos [place]-Sod Phos Di & [place] 155-852-130 MG Oral Tablet (K PHOS NEUTRAL) 07/10/2020 12:00:00 AM EST 250 mg Oral active Take 1 tablet by juliann th Two Times Daily for 7 days [facility] Magnesium Oxide 400 MG Oral Tablet Magne sium Oxide 400 (241.3 Mg) MG Oral Tablet (MAG-OX) Magnesium Oxide 400 (241.3 Mg) MG Oral Tablet (MAG-OX) 07/10/2020 12:00:00 AM EST 400 mg Oral active Take 1 tablet by mouth daily for 7 days [facility] pantoprazole 40 MG Delayed Release Oral Tablet Pantoprazole Sodium 40 MG Oral Tablet Delayed Release (PROTONIX) Pantoprazole Sodium 40 MG Oral Tablet De layed Release (PROTONIX) 07/10/2020 12:00:00 AM EST 40 mg Oral active Take 1 tablet by mouth Two Times Daily [facility] Hydroxyzine Hydrochloride 25 MG Oral Tab let hydrOXYzine HCl 25 MG Oral Tablet (ATARAX) hydrOXYzine HCl 25 MG Oral Tablet (ATARAX) 07/10/2020 12:00: 00 AM EST 25 mg Oral active Take 1 tablet by mouth every 6 (six) hours as needed for Anxiety [facility] maalox/lidocaine/diphenhydrAMINE 1:1:1 SWISH & SWAL oral [facility] 07/10/2020 12:00:00 AM EST 10 mL Swish & Spit active Swish and spit 10 mLs Four times daily as needed (throat pain)Pharmacy compound: Maalox, lidocaine viscous 2 %, Benadryl 12.5 mg/5 mL [facility] Folic Acid 1 MG Oral Tablet Folic Acid 1 MG Oral Table t (FOLVITE) Folic Acid 1 MG Oral Tablet (FOLVITE) 07/10/2020 12:00:00 AM EST 1 mg Oral active Take 1 tablet by mouth daily [facility] Thiamine 100 MG Oral Tablet Thiamine HCl 100 MG Oral T ablet (B-1) Thiamine HCl 100 MG Oral Tablet (B-1) 07/10/2020 12:00:00 AM EST 100 mg Oral active Take [facility] Oral Tablet Lisinopril 10 MG Oral Tab let (ZESTRIL) Lisinopril 10 MG Oral Tablet (ZESTRIL) 07/10/2020 12:00:00 AM EST 10 mg Oral active Take 1 tablet by mouth daily [facility] vancomycin 50 mg/mL PO SOLN oral solution [id number] 07/10/2020 12:00:00 AM EST 125 mg Oral active Take 2.5 mLs by mouth every 6 (six) hours for 7 days [facility] Aspirin 81 MG Delayed Release Oral Table t Aspirin 81 MG Oral Tablet Delayed Release Aspirin 81 MG Oral Tablet Delayed Release 07/10/2020 12:00:00 AM EST 81 mg Oral active Take 1 tablet [facility] pantoprazole 40 MG Delayed Release Oral Tablet pantoprazole (PROTONIX) EC tablet 40 mg pantoprazole (PROTONIX) EC tablet 40 mg 07/09/2020 09:00:[address] 40 mg Oral active 40 mg, Ora l, 2 Times Daily, First dose on 07/09/20 at 2100, For 30 days
Do not crush or chew
[facility] Medication administered onsite Monobasic potassium phosphate [...] mg and potassium 144 mg (3.7 mEq)
[facility] Medication administered onsite Alprazolam 0.25 MG Oral Tablet alprazolam (XANAX) tabl et 0.5 mg alprazolam (XANAX) tablet 0.5 mg 07/09/2020 03:15:00 PM EST 0.5 mg Oral completed 0.5 mg, Oral, Once, 07/09/20 at 1515, For 1 dose [facility] Medication administered onsite Hydroxyzine Hydrochloride 25 MG Oral Tablet hydrOXYzin e (ATARAX) tablet 25 mg hydrOXYzine (ATARAX) tablet 25 mg 07/09/2020 09:00:00 AM EST 25 mg Oral active 25 mg, Oral, Every 6 hours PRN, Anxiety, Starting 07/09/20 at 0900, For 48 hours [facility] Medication administered onsite 50 ML Magnesium Sulfate 40 MG/ML Injecti on magnesium sulfate infusion 2 g/50 mL (premix) magnesium sulfate infusion 2 g/50 mL (premix) 07/09/20 20 05:45:00 AM EST 2 g Intravenous completed 2 g, Intravenous, Administer over 60 Minutes, Once, 07/09/20 at 0545, For 1 dose [facility] Medication administered onsite potassium chloride 20 mEq in 100 mL IVPB (premix) [id number] 07/09/2020 05:00:00 AM EST 20 meq Intravenous completed 20 mEq, Intravenous, Administer over 60 Minutes, Every 1 hour, First dose on 07/09/20 at 0500, For 2 doses [facility] Medication administered onsite Diazepam 5 MG [...] the CIWA score. Assess once patient awakens.
[facility] Medication administered onsite sodium phosphate infusion [...] severe hypophosphatemia.
For central line use only.
[facility] Medication administered onsite potassium phosphate infusion 6 mmol/100 mL (premix) 07/08/2020 01:45:00 PM EST 6 mmol Intravenous completed 6 mmol, Intravenous, at 25 mL/hr, Once, 07/08/20 at 1345, For 1 dose
Slower infusion rates (e.g. over 4 hours) are recommended in patients with renal impairment and/or less severe hypophosphatemia. Product contains 8.8 mEq of potassium.
[facility] Medication administered onsite maalox/lidocaine/diphenhydrAMINE (RADIAT ION MIXTURE) 1:1:1 oral suspension 10 mL 07/08/2020 09:45:00 AM EST 10 mL Swish & Spit acti ve 10 mL, Swish & Spit, Four Times Daily-PRN, throat pain, Starting 07/08/20 at 0945, For 120 hours [facility] Medication administered onsite Hydroxyzine Hydrochloride 25 MG Oral Tablet hydrOXYzin e (ATARAX) tablet 25 mg hydrOXYzine (ATARAX) tablet 25 mg 07/08/2020 09:36:17 AM EST 25 mg Oral aborted 25 mg, Oral, Every 6 hours PRN, Anxiety, Starting 07/08/20 at 0936, For 697 hours [facility] Medication administered onsite 24 HR Nicotine 0.292 MG/HR Transdermal P atch nicotine (NICODERM CQ) 7 MG/24HR 1 patch nicotine (NICODERM CQ) 7 MG/24HR 1 patch 07/08/2020 09:00:00 AM EST 1 {patch} Transdermal active 1 patch, Transdermal, Administer over 24 Hours, Daily Standard, First dose on 07/08/20 at 0900, For 30 days [facility] Medication administered onsite potassium phosphate 155 [...] mEq), and potassium 45 mg (1.1 mEq)
[facility] Medication administered onsite 1 ML Lorazepam 2 MG/ML Injection LORazepam (ATIVAN) in jection 0.5 mg LORazepam (ATIVAN) injection 0.5 mg 07/08/2020 06:15:00 AM EST 0.5 mg Intrave nous completed 0.5 mg, Intravenous, Once, Sat 1 09/07/19 at 0615, For 1 dose [facility] Medication administered onsite potassium phosphate infusion 6 mmol/100 mL (premix) 07/08/2020 04:00:00 AM EST 6 mmol Intravenous completed 6 mmol, Intravenous, at 25 mL/hr, Once, 07/08/20 at 0400, For 1 dose
Slower infusion rates (e.g. over 4 hours) are recommended in patients with renal impairment and/or less severe hypophosphatemia. Product contains 8.8 mEq of potassium.
[facility] Medication administered onsite sodium phosphate infusion 6 mmol/100 mL (premix) 07/07 09:30:00 PM EST 6 mmol Intravenous completed 6 mmol, Intravenous, at 25 mL/hr, Once, 07/07/20 at 2130, For 1 dose
Slower infusion rate (e.g. over 4 to 6 hours) are recommended in patients with renal impairment and/or less severe hypophosp hatemia.
[facility] Medication administered onsite Nicotine 2 MG Chewing Gum nicotine polacrilex (NICORET TE) gum 2 mg nicotine polacrilex (NICORETTE) gum 2 mg 07/07/2020 03:18:13 PM EST 2 mg O ral active 2 mg, Oral, Every 2 hours PRN, Smoking cessation, Starting Fri07/07/20 at 1518, For 30 days [facility] Medication administered onsite maalox/lidocaine/diphenhydrAMINE (RADIAT ION MIXTURE) 1:1:1 oral suspension 10 mL 07/07/2020 03:17:47 PM EST 10 mL Swish & Spit abor tania 10 mL, Swish & Spit, 2 Times Daily PRN, throat pain, Starting Fri07/07/20 at 1517, For 30 days [facility] Medication administered onsite Thiamine 100 MG Oral Tablet thiamine (B-1) tablet 100 mg thiamine (B-1) tablet 100 mg 07/07/2020 02:45:00 PM EST 100 mg Oral active 100 mg, Oral, Daily Standard, First dose on Fri07/07/20 at 1445, For 30 days [facility] Medication administered onsite Folic Acid 1 MG Oral Tablet folic acid (FOLVITE) table t 1 mg folic acid (FOLVITE) tablet 1 mg 07/07/2020 02:45:00 PM EST 1 mg Oral active 1 mg, Oral, Daily Standard, First dose on Fri07/07/20 at 1445, For 30 days [facility] Medication administered onsite potassium phosphate 155 [...] mEq), and potassium 45 mg (1.1 mEq)
[facility] Medication administered onsite vancomycin (VANCOCIN) 50 mg/mL oral solution 125 mg [id number] 07/07/2020 11:00:00 AM EST 125 mg Oral active 125 mg, Oral, Every 6 hours, First dose on Fri07/07/20 at 1100, For 10 days
Indicated for severe C. difficile infection, defined as: WBC > 15,000 SCr > 1.5 times the premorbid level Hypotension or shock Ileus Megacolon
[facility] Medication administered onsite Hydroxyzine Hydrochloride 25 MG Oral Tablet hydrOXYzin e (ATARAX) tablet 25 mg hydrOXYzine (ATARAX) tablet 25 mg 07/07/2020 10:56:18 AM EST 25 mg Oral aborted 25 mg, Oral, Every 6 hours PRN, Itching, Starting Fri07/07/20 at 1056, For 30 days [facility] Medication administered onsite Atenolol 25 MG Oral Tablet atenolol (TENORMIN) tablet 100 mg atenolol (TENORMIN) tablet 100 mg 07/07/2020 09:00:00 AM EST 100 mg Oral abor tania 100 mg, Oral, Daily Standard, First dose on Fri07/07/20 at 0900, For 30 days
Check vital signs before administering
[facility] Medication administered onsite Lisinopril 10 MG Oral Tablet lisinopril (ZESTRIL) tabl et 10 mg lisinopril (ZESTRIL) tablet 10 mg 07/07/2020 09:00:00 AM EST 10 mg Oral active 10 mg, Oral, Daily Standard, First dose on Fri07/07/20 at 0900, For 30 days [facility] Medication administered onsite pantoprazole 4 MG/ML Injectable Solution pantoprazole (PROTONIX) injection 40 mg pantoprazole (PROTONIX) injection 40 mg 07/07/2020 09:00:00 AM EST 40 mg Intravenous aborted 40 mg, Intrav enous, 2 Times Daily, First dose on Fri07/07/20 at 0900, For 30 days [facility] Medication administered onsite Oxycodone Hydrochloride 5 [...] to 10 mg per dose. Higher doses ([facility] only) require Pain Service consultation and approval.
[facility] Medication administered onsite Oxycodone Hydrochloride 5 [...] only) require Pain Service consultation and approval.
[facility] Medication administered onsite buspirone hydrochloride 10 MG Oral Tablet busPIRone (B USPAR) tablet 10 mg busPIRone (BUSPAR) tablet 10 mg 07/07/2020 04:00:00 AM EST 10 mg O ral completed 10 mg, Oral, Once, Fri07/07/20 a t 0400, For 1 dose [facility] Medication administered onsite Famotidine 20 MG Oral Tablet famotidine (PEPCID) table t 20 mg famotidine (PEPCID) tablet 20 mg 07/07/2020 03:15:00 AM EST 20 mg Oral completed 20 mg, Oral, Once, Fri07/07/20 at 0315, For 1 dose [facility] Medication administered onsite Hydroxyzine Hydrochloride 10 MG Oral Tablet hydrOXYzin e (ATARAX) tablet 25 mg hydrOXYzine (ATARAX) tablet 25 mg 07/07/2020 03:00:00 AM EST 25 mg Oral completed 25 mg, Oral, Once, Fri07/07/20 a t 0300, For 1 dose [facility] Medication administered onsite Lactulose 667 MG/ML Oral Solution lactulose (CHRONULAC ) solution 30 mL lactulose (CHRONULAC) solution 30 mL 07/06/2020 05:00:00 PM EST 30 mL Oral aborted 30 mL, Oral, Three Times Da fawn Standard, First dose on Keily 07/06/20 at 1700, For 30 days
Titrate to 2-3 bowel movements daily
[facility] Medication administered onsite thiamine (B-1) 500 mg in sodium chloride 0.9 % 50 mL IVPB 07/06/2020 05:00:00 PM EST 500 mg Intravenous aborted 500 mg, Intravenous, Administer over 30 Minutes, Three Times Daily Standard, First dose on Keily 07/06/20 at 1700, For 5 days [facility] Medication administered onsite Benzocaine 15 MG / Menthol 3.6 MG Oral L ozenge benzocaine-menthol (CEPACOL) 15- 3.6 MG per lozenge 1 lozenge benzocaine-menthol (CEPACOL) 15-3.6 MG p er lozenge 1 lozenge 07/06/2020 04:12:51 PM EST 1 {lozenge} Mouth/Throat active 1 lozenge, Mouth/Throat, Every 2 hours PRN, Sore Throat, Starting Keily 07/06/20 at 1612, For 30 days [facility] Medication administered onsite Ceftriaxone 1000 MG Injection cefTRIAXone (ROCEPHIN) i nfusion 1 g (premix) cefTRIAXone (ROCEPHIN) infusion 1 g (premix) 07/06/2020 03:15:00 PM EST 1 g Intravenous aborted 1 g, Intraven ous, at 100 mL/hr, Every 24 hours, First dose on Keily 07/06/20 at 1515, For 3 days
Discouraged Uses: Empiric treatment of post-surgical meningitis (ceftazidime preferred)
[facility] Medication administered onsite fentaNYL (SUBLIMAZE) (PF) injection 50 mcg [id number] 07/06/2020 02:30:00 PM EST 50 ug Intravenous completed 50 mcg, Intravenous, Once, Keily 07/06/20 at 1430, For 1 dose [facility] Medication administered onsite fentaNYL (SUBLIMAZE) (PF) injection 50 mcg [id number] 07/06/2020 02:30:00 PM EST 50 ug Intravenous completed 50 mcg, Intravenous, Once, Keily 07/06/20 at 1430, For 1 dose [facility] Medication administered onsite 2 ML Midazolam 1 MG/ML Injection midazolam (PF) (VERSE D) injection midazolam (PF) (VERSED) injection 07/06/2020 01:57:00 PM EST completed Code/Trauma Medication, Starting Keily 07/06/20 at 1357 [facility] Medication administered onsite 2 ML Midazolam 1 MG/ML Injection midazolam (PF) (VERSE D) injection midazolam (PF) (VERSED) injection 07/06/2020 01:55:00 PM EST completed Code/Trauma Medication, Starting Keily 07/06/20 at 1355 [facility] Medication administered onsite fentaNYL (SUBLIMAZE) (PF) injection [id number] 07/06/2020 01:52:00 PM EST completed Code/Trauma Medicati on, Starting Keily 07/06/20 at 1352 [facility] Medication administered onsite 2 ML Midazolam 1 MG/ML Injection midazolam (PF) (VERSE D) injection midazolam (PF) (VERSED) injection 07/06/2020 01:52:00 PM EST completed Code/Trauma Medication, Starting Keily 07/06/20 at 1352 [facility] Medication administered onsite fentaNYL (SUBLIMAZE) 100 MCG/2ML (PF) injection [id number] 07/06/2020 01:37:47 PM EST completed Starti ng Keily 07/06/20 at 1337, For 1 dose
Ryan Simpson : davian override
[facility] Medication administered onsite 1 ML Lorazepam 2 MG/ML Injection LORazepam (ATIVAN) in jection 2 mg LORazepam (ATIVAN) injection 2 mg 07/06/2020 10:15:00 AM EST 2 mg Intraveno us completed 2 mg, Intravenous, Once, Keily 07/06/20 at 1015, For 1 dose [facility] Medication administered onsite ondansetron (ZOFRAN) injection 4 mg [id number] 07/06/2020 10:04:5 4 AM EST 4 mg Intravenous active 4 mg, In travenous, Every 8 hours PRN, Nausea, Vomiting, Starting Keily 07/06/20 at 1004, For 30 days [facility] Medication administered onsite Oxycodone Hydrochloride 5 [...] only) require Pain Service consultation and approval.
[facility] Medication administered onsite heparin (porcine) 5000 UNIT/ML injection 5,000 Units [id number] 07/06/2020 09:00:00 AM EST 5000 U Subcutaneous aborted 5,000 Units, Subcutaneous, 2 Times Daily, First dose on Keily 07/06/20 at 0900, For 30 days [facility] Medication administered onsite Piperacillin 3000 MG / tazobactam 375 MG Injection piperacillin-tazobactam (ZOSYN) IVPB 3.375 g (premix) piperacillin-tazobactam (ZOSYN) IVPB 3.3 75 g (premix) 07/06/2020 08:00:00 AM EST 3.375 g Intravenous abo rted 3.375 g, Intravenous, Administer over 4 Hours, Every 8 hours, First dose on Keiyl 07/06/20 at 0800, For 3 days
This specific formulation of piperacillin- tazobactam is compatible with Lactated Ringers.
[facility] Medication administered onsite thiamine (B-1) 500 mg in sodium chloride 0.9 % 50 mL IVPB 07/06/2020 08:00:00 AM EST 500 mg Intravenous aborted 500 mg, Intravenous, Administer over 30 Minutes, Every 24 hours, First dose on Keily 07/06/20 at 0800, For 4 days [facility] Medication administered onsite lactated ringers bolus 1,000 mL [id number] 07/06/2020 06:45:00 AM EST 1000 mL Intravenous completed 1,000 mL , Intravenous, Once, Keily 07/06/20 at 0645, For 1 dose [facility] Medication administered onsite potassium chloride (K-DUR) dissolvable tablet 40 mEq [id number] 07/06/2020 06:45:00 AM EST 40 meq Oral completed 40 mEq, Oral, Once, Keily 07/06/20 at 0645, For 1 dose
May be dissolved in water for patients with a G-Tube or unable to swallow. If concern for clogging G-Tube, may contact Pharmacy to switch formulation to a powder packet.
[facility] Medication administered onsite Oxycodone Hydrochloride 5 MG Oral Tablet oxyCODONE (ROXICODONE) immediate release tablet 10 mg oxyCODONE (ROXICODONE) immediate release tablet 10 mg 07/06/2020 04:15:00 AM EST 10 mg Oral completed 10 mg, Oral, Once, Keily 07/06/20 at 0415, For 1 dose
Oxycodone immediate release is limited to 10 mg per dose. Higher doses ( only) require Pain Service consultation and approval.
[facility] Medication administered onsite Hydroxyzine Hydrochloride 10 MG Oral Tablet hydrOXYzin e (ATARAX) tablet 25 mg hydrOXYzine (ATARAX) tablet 25 mg 07/06/2020 04:06:13 AM EST 25 mg Oral aborted 25 mg, Oral, Every 6 hours PRN, Anxiety, Starting Keily 07/06/20 at 0406, For 30 days [facility] Medication administered onsite Calcium Chloride 0.0014 MEQ/ML / Potassi um Chloride 0.004 MEQ/ML / Sodium Chloride 0.103 MEQ/ML / Sodium Lactate 0.028 MEQ/ML Injectable Solution lactated ringers infusion lactated ringers infusion 07/06/2020 03:45:00 AM EST 75 mL/h Intravenous aborted at 75 mL/hr, Intravenous, Continuous, Starting Keily 07/06/20 at 0345, For 3 days [facility] Medication administered onsite lactated ringers bolus 1,000 mL [id number] 07/06/2020 03:30:00 AM EST 1000 mL Intravenous completed 1,000 mL , Intravenous, Once, Keily 07/06/20 at 0330, For 1 dose [facility] Medication administered onsite octreotide (SANDOSTATIN) 5 mcg/mL in sodium chloride 0.9 % 2 50 mL infusion 07/06/2020 03:15:00 AM EST 50 ug/h Intravenous aborted 50 mcg/hr (10 mL/hr), Intravenous, at 10 mL/hr, Continuous, Starting Keily 07/06/20 at 0315, For 30 days [facility] Medication administered onsite albumin human (ALBUMINAR) 25 % bottle 100 g [id number] 07/06/2020 03:15:00 AM EST 100 g Intravenous completed 10 0 g, Intravenous, at 200 mL/hr, Once, Keily 07/06/20 at 0315, For 1 dose [facility] Medication administered onsite pantoprazole (PROTONIX) 0.4 mg/mL in sodium chloride 0.9 % 2 50 mL infusion 07/06/2020 03:15:00 AM EST 8 mg/h Intravenous aborted 8 mg/hr (20 mL/hr), Intravenous, at 20 mL/hr, Continuous, Starting [facility] 07/06/20 at 0315, For 30 days
Indication: Active GI bleed [facility] Medication administered onsite 50 mg 08/09/2019 [...] (for pain)Can be used with lidocaine pain. [facility] Esomeprazole 20 MG Delayed Release Oral Capsule esomeprazole (NEXIUM) 20 MG capsule esomeprazole (NEXIUM) 20 MG capsule 20 mg Oral aborted Take 20 mg by mouth Two Times Daily [facility] Atenolol 100 MG Oral Tablet atenolol (TENORMIN) 100 MG tablet atenolol (TENORMIN) 100 MG tablet 100 mg Oral aborted Take 100 mg by mouth daily. [facility] Aspirin 325 MG Oral Tablet Aspirin 325 MG Oral Tablet 32 5 mg Oral aborted Take 325 mg by mouth daily [facility] Indomethacin (INDOCIN PO) Oral aborted Take by mouth. [facility] Hydroxyzine Hydrochloride 25 MG Oral Tablet hydrOXYzin e (ATARAX) 25 MG tablet hydrOXYzine (ATARAX) 25 MG tablet 25 mg Oral abor tania Take 25 mg by mouth Three times daily as needed for Itching. [facility] Lisinopril 10 MG Oral Tablet lisinopril (PRINIVIL,ZEST RIL) 10 MG tablet lisinopril (PRINIVIL,ZESTRIL) 10 MG tablet 10 mg Oral aborted Take 10 mg by mouth daily. [facility] Insurance Providers Payer name Policy type / Coverage type Policy ID Covered libertarian ID Covered libertarian's relationship to pandey Policy Pandey Plan Information [facility] [id number] SP [id number] [facility] [id number] SP [id number] [facility] [id number] S [id number] [facility] MEDICAID [id number] S [id number] [facility] MEDICAID [id number] S [id number] MEDICAID [id number] S [id number] [facility] MEDICAID [id number] S [id number] [facility] MEDICAID [id number] S [id number] [facility] MEDICAID [id number] S [id number] [facility] MEDICAID [id number] S [id number] [facility] [id number] SP [id number] [facility] [id number] SP [id number] MEDICAID [id number] Self [id number] [facility] I [id number] Self [id number] [facility] I [id number] Self [id number] [facility] I [id number] Self [id number] MEDICAID M [id number] Self [id number] SELF PAY UNAVAILABLE S U[place] B[employer] 4 ME [id number] S [id number] [facility] MEDICAID [id number] S [id number] [facility] [id number] S [id number] [facility] [id number] SP [id number] SELF PAY ONLY [id number] SP [id number] [facility] [id number] S [id number] [facility] [id number] ANSI-Medicaid [id number] ANSI-Medicaid [id number] ANSI-Medicaid [id number] ANSI-Medicaid [id number] ANSI-Medicaid [id number] ANSI-Medicaid [id number] ANSI-Medicaid [id number] ANSI-Medicaid [id number] ANSI-Medicaid [id number] ANSI-Medicaid [id number] ANSI-Medicaid [id number] ANSI-Medicaid [id number] ANSI-Medicaid [id number] ANSI-Medicaid [id number] ANSI-Medicaid [id number] ANSI-Medicaid [id number] ANSI-Medicaid [id number] ANSI-Medicaid [id number] ANSI-Medicaid [id number] ANSI-Medicaid [id number] ANSI-Medicaid [id number] ANSI-Medicaid [id number] ANSI-Medicaid [id number] ANSI-Medicaid [id number] ANSI-Medicaid [id number] ANSI-Medicaid [id number] ANSI-Medicaid [id number] ANSI-Medicaid [id number] ANSI-Medicaid [id number] ANSI-Medicaid [id number] ANSI-Medicaid [id number] ANSI-Medicaid [id number] ANSI-Medicaid [id number] ANSI-Medicaid [id number] ANSI-Medicaid [id number] ANSI-Medicaid [id number] ANSI-Medicaid [id number] [facility] [id number] SP [id number] Unitedhealthcare Medicaid Medicaid [id number] Self [id number] [facility] [id number] S [id number] MEDICAID [id number] SP [id number] MEDICAID P [id number] S [id number] SELF PAY SP UNAVAILABLE UNAVAILA BLE MEDICAID [id number] S [id number] Problems, Conditions, and Diagnoses Code Display Name Description Problem Type Effective Dates Data Source(s) R65.20 Severe sepsis without septic shock SEVERE SEPSIS WITHOUT SEPTIC SHOCK Diagnosis 08/31/2020 03:32:00 AM [facility] R79.1 Abnormal coagulation profile ABNORMAL COAGULATION PROF ILE Diagnosis 08/31/2020 03:32:00 AM [facility] R07.9 Chest pain, unspecified CHEST PAIN, UNSPECIFIED Diagno sis 08/31/2020 03:32:00 AM [facility] F17.200 Nicotine dependence, unspecified, uncomp licated NICOTINE DEPENDENCE, UNSPECIFIED, UNCOMPLICATED Diagnosis 08/31/2020 03:32:00 AM [facility] E78.5 Hyperlipidemia, unspecified HYPERLIPIDEMIA, UNSPECIFIE D Diagnosis 08/31/2020 03:32:00 AM [facility] F32.9 Major depressive disorder, single episod e, unspecified MAJOR DEPRESSIVE DISORDER, SINGLE EPISODE, UNSPECI Diagnosis 08/31/2020 03:32:00 AM [facility] I10 Essential (primary) hypertension ESSENTIAL (PRIMARY) H YPERTENSION Diagnosis 08/31/2020 03:32:00 AM [facility] F10.10 Alcohol abuse, uncomplicated ALCOHOL ABUSE, UNCOMPLICA TANIA Diagnosis 08/31/2020 03:32:00 AM [facility] B34.8 Other viral infections of unspecified si te OTHER VIRAL INFECTIONS OF UNSPECIFIED SITE Diagnosis 08/31/2020 03:32:00 AM [facility] N40.0 Benign prostatic hyperplasia without low er urinary tract symptoms BENIGN PROSTATIC HYPERPLASIA WITHOUT LOWER URINRY Diagnosis 08/31/2020 03:32: 00 AM [facility] K21.9 Gastro-esophageal reflux disease without esophagitis GASTRO-ESOPHAGEAL REFLUX DISEASE WITHOUT ESOPHAGIT Diagnosis 08/31/2020 03:32:00 AM [facility] E11.9 Type 2 diabetes mellitus without complic ations TYPE 2 DIABETES MELLITUS WITHOUT COMPLICATIONS Diagnosis 08/31/2020 03:32:00 AM [facility] pital J12.82 PNEUMONIA DUE TO CORONAVIRUS DISEASE 201 9 PNEUMONIA DUE TO CORONAVIRUS DISEASE 2019 Diagnosis 08/31/2020 03:32:00 AM [facility] D69.6 Thrombocytopenia, unspecified THROMBOCYTOPENIA, UNSPEC IFIED Diagnosis 08/31/2020 03:32:00 AM [facility] K74.60 Unspecified cirrhosis of liver UNSPECIFIED CIRRHOSIS O F LIVER Diagnosis 08/31/2020 03:32:00 AM [facility] U07.1 COVID-19 COVID-19 Diagnosis 08/31/2020 03:32:[address] [facility] E87.2 Acidosis ACIDOSIS Diagnosis 08/31/2020 03:32:[address] 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 O THER RESIDENTIAL (CURRENT) DRUG THERAPY Diagnosis 08/30/2020 03:59:[address] [facility] F17.210 Nicotine dependence, cigarettes, uncompl icated NICOTINE DEPENDENCE, CIGARETTES, UNCOMPLICATED Diagnosis 08/30/2020 03:59:00 PM [facility]sp[facility] E11.9 Type 2 diabetes mellitus without complic ations TYPE 2 DIABETES MELLITUS WITHOUT COMPLICATIONS Diagnosis 08/30/2020 03:59:[address] [facility] [facility] Other viral infections of unspecified si te OTHER VIRAL INFECTIONS OF UNSPECIFIED SITE Diagnosis 08/30/2020 03:59:00 PM [facility] l J18.9 Pneumonia, unspecified organism PNEUMONIA, UNSPECIFIED ORGANISM Diagnosis 08/30/2020 03:59:00 PM [facility] U07.1 COVID-19 COVID-19 Diagnosis 08/30/2020 03:59:00 PM [facility] A41.9 Sepsis, unspecified organism SEPSIS, UNSPECIFIED ORGAN ISM Diagnosis 08/30/2020 03:59:00 PM [facility] R07.89 Other chest pain OTHER CHEST PAIN Diagnosis 08/30/2020 03 :59:00 PM [facility] K92.2 Gastrointestinal hemorrhage, unspecified Gastrointestinal hemorrhage, unspecified Diagnosis 07/09/2020 11:55:34 AM [facility] K52.9 Noninfective gastroenteritis and colitis , unspecified Noninfective gastroenteritis and colitis, unspecified Diagnosis 07/06/2020 03:03:[address] [facility] Vomiting blood Vomiting blood Diagnosis 07/06/2020 03:03: [address] 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 analge sic RESIDENTIAL (CURRENT) USE OF OPIATE ANALGESIC Diagnosis 07/05/2020 08:45:00 PM [facility] l I95.1 Orthostatic hypotension ORTHOSTATIC HYPOTENSION Diagno sis 07/05/2020 08:45:00 PM [facility] N17.9 Acute kidney failure, unspecified ACUTE KIDNEY F AILURE, UNSPECIFIED Diagnosis 07/05/2020 08:45:00 PM [facility] K21.00 GASTRO-ESOPHAGEAL REFLUX DIS WITH ESOPHA GITIS, WIT GASTRO-ESOPHAGEAL REFLUX DIS WITH ESOPHAGITIS, WIT Diagnosis 07/05/2020 08:45:00 PM [facility] I85.10 Secondary esophageal varices without ble eding SECONDARY ESOPHAGEAL VARICES WITHOUT BLEEDING Diagnosis 07/05/2020 08:45:00 PM [facility] spital F10.20 Alcohol dependence, uncomplicated ALCOHOL DEPEND ENCE, UNCOMPLICATED Diagnosis 07/05/2020 08:45:00 PM [facility] E86.0 Dehydration DEHYDRATION Diagnosis 07/05/2020 08:45:00 PM [facility] K52.9 Noninfective gastroenteritis and colitis , unspecified NONINFECTIVE GASTROENTERITIS AND COLITIS, UNSPECIF Diagnosis 07/05/2020 08:45:00 PM [facility] R11.2 Nausea with vomiting, unspecified NAUSEA WITH VO MITING, UNSPECIFIED Diagnosis 07/05/2020 08:45:00 PM [facility] E86.9 Volume depletion, unspecified VOLUME DEPLETION, UNSPEC IFIED Diagnosis 07/05/2020 08:45:00 PM [facility] G89.29 Other chronic pain OTHER CHRONIC PAIN Diagnosis 05/2019 01:11:00 [facility] G47.9 Sleep disorder, unspecified SLEEP DISORDER, UNSPECIFIE D Diagnosis 08/09/2019 01:11:00 [facility] F10.10 Alcohol abuse, uncomplicated ALCOHOL ABUSE, UNCOMPLICA ATNIA Diagnosis 08/09/2019 01:11:00 PM [facility] F17.200 Nicotine dependence, unspecified, uncomp licated NICOTINE DEPENDENCE, UNSPECIFIED, UNCOMPLICATED Diagnosis 08/09/2019 01:11:00 PM [facility] F33.1 Major depressive disorder, recurrent, mo derate MAJOR DEPRESSIVE DISORDER, RECURRENT, MODERATE Diagnosis 08/09/2019 01:11:00 PM [facility]osp[facility] l K31.9 Disease of stomach and duodenum, unspeci fied DISEASE OF STOMACH AND DUODENUM, UNSPECIFIED Diagnosis 07/24/2019 05:33:00 PM [facility] Hos[facility] lidya F41.9 Anxiety disorder, unspecified ANXIETY DISORDER, UNSPEC IFIED Diagnosis 07/24/2019 05:33:00 PM [facility] Surgeries/Procedures Procedure Description Date Indications Data Source(s) Introduction of Anti-inflammatory into Peripheral Vein, Perc utaneous Approach 08/31/2020 12:00:00 AM [facility] Introduction of Other Anti-infective int o Peripheral Vein, Percutaneous Approach 08/31/2020 12:00:00 AM [facility] INTRODUCE REMDESIVIR IN PERIPH VEIN, PERC, [place]UEL 08/31/2020 12:00:00 AM [facility] POCT GLUCOSE, DOCKED POCT GLUCOSE, DOCKED Routine 07/10/2020 11:55 AM EST 07/10/2020 11:55:[address] [facility] POCT GLUCOSE, DOCKED POCT GLUCOSE, DOCKED Routine 07/10/2020 8:48 AM EST 07/10/2020 08:48:[address] [facility] BLOOD COUNT COMPLETE AUTO&AUTO DIFRNTL WBC COUNT CBC AND DIFFER ENTIAL Routine 07/10/2020 3:54 AM EST 07/10/2020 03:54:[address] [facility] PHOSPHORUS INORGANIC PHOSPHORUS LEVEL Timed 07/10/2020 3:[address] 07/10/2020 03:54:[address] [facility] MAGNESIUM MAGNESIUM LEVEL Routine 07/10/2020 3:54 AM EST 07/10/2020 03:54:[address] [facility] COMPREHENSIVE METABOLIC PANEL COMPREHENSIVE METABOLIC PANEL Rou jeyson 07/10/2020 3:54 AM EST 07/10/2020 03:54:00 AM [facility] PHOSPHORUS INORGANIC PHOSPHORUS LEVEL Timed 07/09/2020 6:[address] 07/09/2020 06:16:[address] [facility] GLUCOSE QUANTITATIVE BLOOD XCPT REAGENT STRIP POCT GLUCOSE, DOC KED Routine 07/09/2020 4:49 PM EST 07/09/2020 04:49:[address] [facility] PHOSPHORUS INORGANIC PHOSPHORUS LEVEL Timed 07/09/2020 4:[address] 07/09/2020 04:09:[address] [facility] GLUCOSE QUANTITATIVE BLOOD XCPT REAGENT STRIP POCT GLUCOSE, DOC KED Routine 07/09/2020 12:24 PM EST 07/09/2020 12:24:[address] [facility] PHOSPHORUS INORGANIC PHOSPHORUS LEVEL Timed 07/09/2020 10:[address] 07/09/2020 10:05:[address] [facility] GLUCOSE QUANTITATIVE BLOOD XCPT REAGENT STRIP POCT GLUCOSE, MALIHA GUILLERMO Routine 07/09/2020 7:50 AM EST 07/09/2020 07:50:[address] [facility] BLOOD COUNT COMPLETE AUTO&AUTO DIFRNTL WBC COUNT CBC AND DIFFER ENTIAL Routine 07/09/2020 12:47 AM EST 07/09/2020 12:47:[address] [facility] PHOSPHORUS INORGANIC PHOSPHORUS LEVEL Timed 07/09/2020 12:[address] 07/09/2020 12:47:[address] [facility] MAGNESIUM MAGNESIUM LEVEL Routine 07/09/2020 12:47 AM EST 07/09/2020 12:47:[address] [facility] COMPREHENSIVE METABOLIC PANEL COMPREHENSIVE METABOLIC PANEL Rou jeyson 07/09/2020 12:47 AM EST 07/09/2020 12:47:00 AM [facility] GLUCOSE QUANTITATIVE BLOOD XCPT REAGENT STRIP POCT GLUCOSE, MALIHA GUILLERMO Routine 07/08/2020 9:24 PM EST 07/08/2020 09:24:[address] [facility] GLUCOSE QUANTITATIVE BLOOD XCPT REAGENT STRIP POCT GLUCOSE, MALIHA GUILLERMO Routine 07/08/2020 4:57 PM EST 07/08/2020 04:57:[address] [facility] GLUCOSE QUANTITATIVE BLOOD XCPT REAGENT STRIP POCT GLUCOSE, MALIHA GUILLERMO Routine 07/08/2020 12:50 PM EST 07/08/2020 12:50:[address] [facility] PHOSPHORUS INORGANIC PHOSPHORUS LEVEL Timed 07/08/2020 10:[address] 07/08/2020 10:28:[address] [facility] GLUCOSE QUANTITATIVE BLOOD XCPT REAGENT STRIP POCT GLUCOSE, MALIHA GUILLERMO Routine 07/08/2020 8:42 AM EST 07/08/2020 08:42:[address] [facility] BLOOD COUNT COMPLETE AUTO&AUTO DIFRNTL WBC COUNT CBC AND DIFFER ENTIAL Timed 07/08/2020 2:11 AM EST 07/08/2020 02:11:[address] [facility] PHOSPHORUS INORGANIC PHOSPHORUS LEVEL Timed 07/08/2020 2:[address] 07/08/2020 02:11:[address] [facility] MAGNESIUM MAGNESIUM LEVEL Routine 07/08/2020 2:11 AM EST 07/08/2020 02:11:[address] [facility] COMPREHENSIVE METABOLIC PANEL COMPREHENSIVE METABOLIC PANEL Rou jeyson 07/08/2020 2:11 AM EST 07/08/2020 02:11:00 AM [facility] GLUCOSE QUANTITATIVE BLOOD XCPT REAGENT STRIP POCT GLUCOSE, DOC EAGLE Routine 07/07/2020 9:53 PM EST 07/07/2020 09:53:[address] [facility] EKG 12-LEAD - CMAXX REPORT EKG 12-LEAD - CMAXX REPORT 07/07/2020 9:45 PM EST 07/07/2020 09:45:00 PM [facility] EKG 12-LEAD - CMAXX REPORT EKG 12-LEAD - CMAXX REPORT 07/07/2020 9:45 PM EST 07/07/2020 09:45:00 PM [facility] EKG 12-LEAD EKG 12-LEAD STAT 07/07/2020 9:45 PM EST 07/07/2020 09:45:[address] [facility] BLOOD COUNT COMPLETE AUTO&AUTO DIFRNTL WBC COUNT CBC AND DIFFER ENTIAL Timed 07/07/2020 6:45 PM EST 07/07/2020 06:45:[address] [facility] PHOSPHORUS INORGANIC PHOSPHORUS LEVEL Routine 07/07/2020 6:[address] 07/07/2020 06:45:[address] [facility] GLUCOSE QUANTITATIVE BLOOD XCPT REAGENT STRIP POCT GLUCOSE, DOC EAGLE Routine 07/07/2020 5:29 PM EST 07/07/2020 05:29:[address] [facility] PHOSPHORUS INORGANIC PHOSPHORUS LEVEL Timed 07/07/2020 5:[address] 07/07/2020 05:29:[address] [facility] MAGNESIUM MAGNESIUM LEVEL Routine 07/07/2020 5:29 PM EST 07/07/2020 05:29:[address] [facility] GLUCOSE QUANTITATIVE BLOOD XCPT REAGENT STRIP POCT GLUCOSE, MALIHA GUILLERMO Routine 07/07/2020 12:25 PM EST 07/07/2020 12:25:[address] [facility] GLUCOSE QUANTITATIVE BLOOD XCPT REAGENT STRIP POCT GLUCOSE, MALIHA GUILLERMO Routine 07/07/2020 12:23 PM EST 07/07/2020 12:23:[address] [facility] POTASSIUM SERUM PLASMA/WHOLE BLOOD POTASSIUM Routine 07/07/2020 8:22 AM EST 07/07/2020 08:22:00 AM [facility] PHOSPHORUS INORGANIC PHOSPHORUS LEVEL Routine 07/07/2020 8:[address] 07/07/2020 08:22:[address] [facility] GLUCOSE QUANTITATIVE BLOOD XCPT REAGENT STRIP POCT GLUCOSE, DOC EAGLE Routine 07/07/2020 8:18 AM EST 07/07/2020 08:18:[address] [facility] BLOOD COUNT COMPLETE AUTOMATED CBC AND DIFFERENTIAL Timed 07/07/2020 5:43 AM EST 07/07/2020 05:43:00 AM [facility] HEMOGLOBIN GLYCOSYLATED A1C HEMOGLOBIN A1C Routine 07/07/2020 5:43 AM EST 07/07/2020 05:43:[address] [facility] COMPREHENSIVE METABOLIC PANEL COMPREHENSIVE METABOLIC PANEL Rou jeyson 07/07/2020 5:43 AM EST 07/07/2020 05:43:00 AM [facility] BLOOD COUNT COMPLETE AUTO&AUTO DIFRNTL WBC COUNT CBC AND DIFFER ENTIAL Timed 07/07/2020 12:12 AM EST 07/07/2020 12:12:[address] [facility] GLUCOSE QUANTITATIVE BLOOD XCPT REAGENT STRIP POCT GLUCOSE, DOC KED Routine 07/06/2020 10:08 PM EST 07/06/2020 10:08:[address] [facility] POTASSIUM SERUM PLASMA/WHOLE BLOOD POTASSIUM Routine 07/06/2020 9:39 PM EST 07/06/2020 09:39:00 PM [facility] PHOSPHORUS INORGANIC PHOSPHORUS LEVEL Routine 07/06/2020 9:[address] 07/06/2020 09:39:[address] [facility] MAGNESIUM MAGNESIUM LEVEL Routine 07/06/2020 9:39 PM EST 07/06/2020 09:39:[address] [facility] BLOOD COUNT COMPLETE AUTO&AUTO DIFRNTL WBC COUNT CBC AND DIFFER ENTIAL Timed 07/06/2020 5:36 PM EST 07/06/2020 05:36:[address] [facility] LACTATE LACTIC ACID LEVEL, PLASMA Timed 07/06/2020 5:36 PM EST 07/06/2020 05:36:[address] [facility] COMMUNITY-ACQUIRED DIARRHEA PANEL COMMUNITY-ACQUIRED DIARRHEA P QUINCY Routine 07/06/2020 2:48 PM EST 07/06/2020 02:48:[address] [facility] OVA&PARASITES DIRECT SMEARS CONCENTRATION&ID OVA AND PARASITE S CREEN Routine 07/06/2020 2:48 PM EST 07/06/2020 02:48:[address] [facility] UPPER GI ENDOSCOPY; DX, W/WO SPECIMEN COLLECTION, BRUS OLAMIDE/WASHING (SEP PROC) UPPER GI ENDOSCOPY; DX, W/WO SPECIMEN COLLECTION, BRUSHING/WASHING (SEP PROC) 07/06/2020 1:25 PM EST Coffee ground emesis 07/06/2020 01:25:00 PM EST - 07/06/2020 02:11:[address] [facility] BLOOD COUNT COMPLETE AUTO&AUTO DIFRNTL WBC COUNT CBC AND DIFFER ENTIAL Timed 07/06/2020 11:35 AM EST 07/06/2020 11:35:[address] [facility] PHOSPHORUS INORGANIC PHOSPHORUS LEVEL Routine 07/06/2020 11:[address] 07/06/2020 11:35:[address] [facility] MAGNESIUM MAGNESIUM LEVEL Routine 07/06/2020 11:35 AM EST 07/06/2020 11:35:[address] [facility] LACTATE LACTIC ACID LEVEL, PLASMA Timed 07/06/2020 11:35 AM EST 07/06/2020 11:35:[address] [facility] BASIC METABOLIC PANEL CALCIUM TOTAL BASIC METABOLIC PANEL Routi ne 07/06/2020 11:35 AM EST 07/06/2020 11:35:00 AM [facility] BLOOD COUNT COMPLETE AUTO&AUTO DIFRNTL WBC COUNT CBC AND DIFFER ENTIAL Timed 07/06/2020 8:09 AM EST 07/06/2020 08:09:[address] [facility] INSJ NON-TUNNELED CENTRAL VENOUS CATH AGE 5 YR/> PA INSERT NON-TUNNEL CV CATH Routine 07/06/2020 6:34 AM EST Colitis Gastrointestinal hemorrhage, unspecified gastrointestinal hemorrhage type 07/06/2020 06:34:47 AM EST [facility] hemorrhage, [facility], unspecified gastrointestinal hemorrhage type Colitis US ABDOMINAL REAL TIME W/IMAGE DOCUMENTATION [place] [id number] STAT 07/06/2020 4:47 AM EST 07/06/2020 04:47:[address] [facility] DRUGS OF ABUSE, URINE DRUGS OF ABUSE, URINE Routine 07/06/2020 4 :26 AM EST 07/06/2020 04:26:00 AM [facility] THROMBOPLASTIN TIME PARTIAL PLASMA/WHOLE BLOOD PARTIA L THROMBOPLASTIN TIME (PTT) Routine 07/06/2020 4:26 AM EST 07/06/2020 04:26 :[address] [facility] IAAD EIA HIV-1 AG W/HIV-1&HIV-2 ANTBDY SINGLE HIV AG AB COMBO S CREEN Routine 07/06/2020 4:26 AM EST 07/06/2020 04:26:[address] [facility] ETHYL ALCOHOL LEVEL ETHYL ALCOHOL LEVEL Routine 07/06/2020 4:26 AM EST 07/06/2020 04:26:[address] [facility] HEPATITIS C ANTIBODY HEPATITIS C ANTIBODY Routine 07/06/2020 4:26 AM EST 07/06/2020 04:26:[address] [facility] HEPATITIS ANTIBODY HAAB IGM ANTIBODY HEPATITIS A ANTIBODY, IGM Routine 07/06/2020 4:26 AM EST 07/06/2020 04:26:[address] [facility] HEPATITIS B CORE ANTIBODY HBCAB IGM ANTIBODY HEPATITIS B CO RE ANTIBODY, IGM Routine 07/06/2020 4:26 AM EST 07/06/2020 04:26:[address] [facility] SODIUM URINE SODIUM, URINE, RANDOM Routine 07/06/2020 4:26 AM EST 07/06/2020 04:26:[address] [facility] CREATININE OTHER SOURCE CREATININE, URINE, RANDOM Routine 07/06/2020 4:26 AM EST 07/06/2020 04:26:00 AM [facility] IAAD EIA HEPATITIS B SURFACE ANTIGEN HEPATITIS B SURFACE ANTIGE N Routine 07/06/2020 4:26 AM EST 07/06/2020 04:26:[address] [facility] CULTURE BACTERIAL BLOOD AEROBIC W/ID ISOLATES BLOOD CULTURE R outine 07/06/2020 4:26 AM EST 07/06/2020 04:26:00 AM [facility] CULTURE BACTERIAL BLOOD AEROBIC W/ID ISOLATES BLOOD CULTURE R outine 07/06/2020 4:26 AM EST 07/06/2020 04:26:00 AM [facility] URNLS DIP STICK/TABLET REAGENT AUTO MICROSCOPY URINALYSIS W ITH MICROSCOPIC Routine 07/06/2020 4:26 AM EST 07/06/2020 04:26:[address] [facility] PROTHROMBIN TIME PROTIME INR Routine 07/06/2020 4:26 AM EST 07/06/2020 04:26:[address] [facility] CULTURE BCT ISOL&PRSMPTV ID ISOLATE EA URINE URINE CULTURE Ro utine 07/06/2020 4:26 AM EST 07/06/2020 04:26:00 AM [facility] PHOSPHORUS INORGANIC PHOSPHORUS LEVEL Routine 07/06/2020 4:[address] 07/06/2020 04:26:[address] [facility] MAGNESIUM MAGNESIUM LEVEL Routine 07/06/2020 4:26 AM EST 07/06/2020 04:26:[address] [facility] LACTATE LACTIC ACID LEVEL, PLASMA Routine 07/06/2020 4:26 AM EST 07/06/2020 04:26:[address] [facility] AMMONIA AMMONIA LEVEL Routine 07/06/2020 4:26 AM EST 07/06/2020 04:26:[address] [facility] COMPREHENSIVE METABOLIC PANEL COMPREHENSIVE METABOLIC PANEL Rou jeyson 07/06/2020 4:26 AM EST 07/06/2020 04:26:00 AM [facility] GLUCOSE QUANTITATIVE BLOOD XCPT REAGENT STRIP POCT GLUCOSE, DOC KED Routine 07/06/2020 2:19 AM EST 07/06/2020 02:19:[address] [facility] UPPER GI ENDOSCOPY UPPER GI ENDOSCOPY 07/06/2020 12:[address] 07/06/2020 12:00:[address] [facility] Results ID Date Data Source [id number] 09/05/2020 07:31:00 AM [facility] Exam Number: [id number] Reported By: Elkin OMALLEY M.D. Signed By: Diony OMALLEY M.D. Name Value Range Interpretation Code Description Data Zahraa rce(s) Supporting Document(s) ID Date Data Source [id number] 09/04/2020 01:21:00 PM [facility] [address] [id number] SUMMARYPATIENT NAME: JANICE VERMA MR#: [id number] PHYSICIAN: TODD ELKINS DOAUTHOR: Todd Elkins DO [...] Rocephin, azithromycin. Patient was then transferred to [facility] for severe sepsis secondary to pneumonia [...] Hypertension8. Depression9. BPH (benign prostatic hyperplasia)10. HUMAN NFCRBOZCTI78. Elevated d- dimerDiagnoses (Other)Past Pertinent History1. Diabetes2. [...] taking the following medications:CARVEDILOL (Coreg*) 12.5 MG CDHXHC27.5 MILLIGRAM Orally TWICE DAILY Qty = 0Continue taking these medications:Aspirin E.c.* (Aspirin EC*) 81 MG TABLET.DR81 MILLIGRAM Orally DAILYOMEPRAZOLE (Omeprazole) 20 MG TABLET.DR20 MILLIGRAM Orally DAILYHYDROXYZINE PAMOATE (Atarax*) 50 MG [id number] MILLIGRAM Orally TWICE DAILY as needed for ANXIETYATORVASTATIN CALCIUM (ATORVASTATIN) 80 MG [id number] MILLIGRAM Orally DAILYQty = 0FOLIC ACID* (Folvite*) 1 MG TABLET1 MILLIGRAM Orally DAILYQty = 0NAPROXEN (NAPROXEN*) 500 MG [id number] MILLIGRAM Orally TWICE DAILYQty = 0Fluoxetine* (Prozac*) 20 MG [id number] MILLIGRAM Orally DAILYQty = 0QUETIAPINE FUMARATE (QUETIAPINE) 100 MG [id number] MILLIGRAM Orally AT BEDTIMEQty = 0TAMSULOSIN HCL (TAMSULOSIN) 0.4 MG CAP.ER.24H0.4 MILLIGRAM Orally TWICE DAILYQty = 0Discharge Activity: As toleratedDischarge diet: 2Gm SodiumFollow-upFollow up with your Primary care physicianTime spent by provider to complete discharge > 30 minutesDATE SIGNED: 09/10/20 Electronically SignedTIME SIGNED: 2012 TODD ELKINS DO Name Value Range Interpretation Code Description Data Zahraa rce(s) Supporting Document(s) ID Date Data Source [id number] 09/04/2020 12:09:00 PM EST [facility] Name Value Range Interpretation Code Description Data Zahraa rce(s) Supporting Document(s) FGLU 293 mg/dL 70-110 [facility] ID Date Data Source [id number] 09/04/2020 10:29:00 AM EST [facility] [address] [id number] NAME: ALIREZAJANICE#: [id number] PHYSICIAN: TODD ELKINS DOACCOUNT #: [id number] ADM. DATE: 08/31/20PATIENT : 65 DISCH. DATE: [...] rce(s) Supporting Document(s) ID Date Data Source [id number] 09/04/2020 06:06:00 AM EST [facility] Name Value Range Interpretation Code Description Data Zahraa rce(s) Supporting Document(s) FGLU 209 mg/dL 70-110 [facility] ID Date Data Source [id number] 09/03/2020 10:52:00 PM EST [facility] Name Value Range Interpretation Code Description Data Zahraa rce(s) Supporting Document(s) FGLU 316 mg/dL 70-110 [facility] ID Date Data Source [id number] 09/03/2020 06:44:00 PM EST [facility] Name Value Range Interpretation Code Description Data Zahraa rce(s) Supporting Document(s) FGLU 391 mg/dL 70-110 [facility] ID Date Data Source [id number] 09/03/2020 02:44:00 PM EST [facility] [address] [id number] NOTEPATIENT NAME: JANICE VERMA PHYSICIAN: TODD ELKINS DOAUTHOR: Luz Elena Elkins DO. DATE: 08/31/20 MR#: [id number] NOTE DATE: 09/03/20 RM#: [id number] TIME: 1451 : 65SubjectiveEvents Since Last EntryPatient seen and examined in room today. Patient's oxygenation is maintainedin room air no fever or chill.ObjectiveVital SignsVital Signs-24 HRS/09/02807 2141 2150 0210 0646Temp 98.0 97.8 97.0 97.2Pulse 51 50 78 52 49Resp 20 18 17 16B/P 126/63 130/66 130/66 119/64 120/65B/P MeanPulse Ox 96 95 96 96O2 DeliveryO2 Flow KsqvYmC457/689875VuljHfsat 78RespB/P 130/66B/P MeanPulse OxO2 DeliveryO2 Flow RateFiO2 Intake/OutputIntake/Output Summary 24 hours/ 1900 09/03 0700Intake Total 1092 600Output TotalBalance [...] HCl (VITAMIN B1) 100 MG DAILY POTiotropium [place] (Spiriva) 1 puffDAILY INHInsulin Aspart (Humalog Insulin) [...] DepressionA&P- Continue Prozac9. BPH (benign prostatic hyperplasia)A&PContinue Akylpm68. HUMAN RHINOVIRUSA&P-Continue supportive care11. Elevated d-dimerA&P- CTA ruled out PE. Lower extremity Doppler came back negative for DVT.- Patient has Covid.Resuscitation status Full codeVTE ProphylaxisVTE Prophylaxis: Continue Lovenox.DATE SIGNED: 09/10/20 Electronically SignedTIME SIGNED: 2012 TODD ELKINS DO Name Value Range Interpretation Code Description Data Zahraa rce(s) Supporting Document(s) ID Date Data Source [id number] 09/03/2020 02:54:00 PM EST [facility] Name Value Range Interpretation Code Description Data Zahraa rce(s) Supporting Document(s) FGLU 377 mg/dL 70-110 [facility] ID Date Data Source [id number] 09/03/2020 09:20:00 AM EST [facility] Name Value Range Interpretation Code Description Data Zahraa rce(s) Supporting Document(s) GLU 237 mg/dL 70-110 [facility] Patients taking Sulfasalazine may have f alsely depressedGlucose levels. Patients taking Sulfapyridine may havefalsely elevated Glucose levels. Patients should be drawnfor Glucose before the initial administration of eitherdrug. BUN 23 mg/dL 7-23 [facility] CRE 1.010 mg/dL 0.500-1.300 [facility] GFR > 60 mL/min [facility] CHLORIDE 102 mmol/L 99-110 [facility] NA 135 mmol/L 136-147 [facility] POTASSIUM 4.1 mmol/L 3.5-5.1 [facility] TCO2 24 mmol/L 20-33 [facility] ANION GAP 13.1 10.0-20.0 [facility] CA 7.8 mg/dL 8.3-10.7 [facility] ID Date Data Source [id number] 09/03/2020 08:55:00 AM EST [facility] Name Value Range Interpretation Code Description Data Zahraa rce(s) Supporting Document(s) WBC 11.17 x10E3/uL 4.0-10.5 [facility] RBC 3.88 x10E6/uL 4.70-6.00 [facility] Hemoglobin 11.9 g/dL 14.0-18.0 [facility] Hematocrit 35.7 % 42.0-52.0 [facility] MCV 92.0 fL 81.0-99.0 [facility] MCH 30.7 pg 27.0-31.0 [facility] MCHC 33.3 g/dL 32.7-35.6 [facility] RDW 14.3 % 11.5-14.0 [facility] Platelet count 85 x10E3/uL 150-450 [facility] MPV 11.8 fl 6.9-9.5 [facility] Neutrophils 84.1 % 34-64 [facility] Lymphocytes 9.5 % 25-45 [facility] Monocytes 4.0 % 1.7-10.6 [facility] Eosinophils 0.5 % 0.4-7.0 [facility] Basophils 0.2 % 0.1-2.0 [facility] Imm. Gran. 1.7 % 0.1-2.0 [facility] Abs. Neutro. 9.39 x10E3/uL 1.2-7.6 [facility] Abs. Lymph. 1.06 x10E3/uL 1.0-3.5 [facility] Abs. [place]. 0.45 x10E3/uL 0.1-1.0 [facility] Abs. Eosin. 0.06 x10E3/uL 0.1-0.7 [facility] Abs. Baso. 0.02 x10E3/uL 0.0-0.1 [facility] Abs. Imm. Gran. 0.19 x10E3/uL 0.0-0.1 [facility] ANRBC% 0 % 0 [facility] ID Date Data Source [id number] 09/03/2020 01:26:00 PM EST [facility] Name Value Range Interpretation Code Description Data Zahraa rce(s) Supporting Document(s) D-DIMER 1.72 mg/L [facility] CORRECTED REPORT 09/03/20 1325: D-DIMER previously reported as: 3.65 H mg/LCUT OFF VALUE = 0.5 mg/L The negative predictive value for DVT or PE is at 98% whenthe result is below the cut off. ID Date Data Source [id number] 09/03/2020 09:20:00 AM EST [facility] Name Value Range Interpretation Code Description Data Zahraa rce(s) Supporting Document(s) C-REACTIVE PROT 4.19 mg/dL 0.0-0.49 [facility] ID Date Data Source [id number] 09/03/2020 08:28:00 AM EST [facility] Name Value Range Interpretation Code Description Data Zahraa rce(s) Supporting Document(s) FGLU 280 mg/dL 70-110 [facility] ID Date Data Source [id number] 09/02/2020 11:59:00 AM EST [facility] [address] [id number] NOTEPATIENT NAME: JANICE VERMA PHYSICIAN: TODD ELKINS DOAUTHOR: Luz Elena Elkins DO. DATE: 08/31/20 MR#: [id number] NOTE DATE: 09/02/20 RM#: [id number] TIME: 1218 : 65SubjectiveEvents Since Last EntryPatient seen and examined in room today. Patient stated his breathingdemonstrated improvement since admission. No fever or chill.ObjectiveVital SignsVital Signs-24 HRS09/01 1857 2030 0241 0630Temp 97.7 97.8 97.6 97.2Pulse 59 54 77 68 52Resp 21 20 16 16B/P 112/58 117/65 117/65 115/66 114/90B/P MeanPulse Ox 98 96 95 97O2 DeliveryO2 Flow [id number] 1035Temp 98.1Pulse 52 47Resp 19B/P 106/60 108/60B/P MeanPulse Ox 97O2 DeliveryO2 Flow VaehIlA7Hkdybf/OutputIntake/Output Summary 24 hours09/01 1900 09/02 0700Intake Total [...] HCl (VITAMIN B1) 100 MG DAILY [facility] [place] (Spiriva) 1 puffDAILY INHInsulin Aspart (Humalog Insulin) [...] x10E3/uL) 0.01Nucleated RBC % (auto) (0 %) 001/003426EwehqxqokDbjltjd (70 - 110 mg/dL) 347 QUunzchhldaodUlzurmgwvmjy65/31 0800 BLOOD: Blood Culture - RECD1 0755 BLOOD: Blood Culture - RECDAssessment/PlanProblem List1. Pneumonia due to COVID-19 virusA&P-Continue IV remdesivir, IV Decadron, and PO azithromycin2. Chest painStatus ResolvedA&P-No recurrence.3. Severe sepsisStatus ResolvedA&P-Continue antiviral therapy and antibiotic.4. DiabetesA&P-Continues on insulin sliding scale5. Chronic alcohol abuseA&P-Continue thiamine, folic acid and multivitamin-No sign of alcohol withdrawal.6. HyperlipidemiaA&P-Continue statin7. HypertensionA&P-Continue Coreg8. DepressionA&PContinue Prozac9. BPH (benign prostatic hyperplasia)A&PContinue Sqkzvk46. HUMAN RHINOVIRUSA&P-Continue supportive care11 . Elevated d-dimerA&P- CTA ruled out PE. Lower extremity Doppler came back negative for DVT.- Patient has Covid.Resuscitation status Full codeVTE ProphylaxisVTE Prophylaxis: Continue Lovenox.DATE SIGNED: 09/10/20 Electronically SignedTIME SIGNED: 2012 TODD ELKINS DO Name Value Range Interpretation Code Description Data Zahraa rce(s) Supporting Document(s) ID Date Data Source [id number] 09/02/2020 05:55:00 AM EST [facility] Name Value Range Interpretation Code Description Data Zahraa rce(s) Supporting Document(s) TROPI < 0.015 ng/mL 0.000-0.079 [facility] Date Data Source [id number] 09/02/2020 05:55:00 AM EST [facility] COMMENTS TO LAB: CRITICAL HIGH ON GLUCOM ETER Name Value Range Interpretation Code Description Data Zahraa rce(s) Supporting Document(s) GLU 347 mg/dL 70-110 [facility] Patients taking Sulfasalazine may have f alsely depressedGlucose levels. Patients taking Sulfapyridine may havefalsely elevated Glucose levels. Patients should be drawnfor Glucose before the initial administration of eitherdrug. ID Date Data Source [id number] 09/02/2020 05:55:00 AM EST [facility] Name Value Range Interpretation Code Description Data Zahraa rce(s) Supporting Document(s) C-REACTIVE PROT 11.00 mg/dL 0.0-0.49 [facility] ital ID Date Data Source [id number] 09/02/2020 05:55:00 AM EST [facility] Name Value Range Interpretation Code Description Data Zahraa rce(s) Supporting Document(s) MAGNESIUM 1.6 mg/dL 1.6-2.6 [facility] ID Date Data Source [id number] 09/02/2020 05:55:00 AM EST [facility] Name Value Range Interpretation Code Description Data Zahraa rce(s) Supporting Document(s) GLU 347 mg/dL 70-110 [facility] Patients taking Sulfasalazine may have f alsely depressedGlucose levels. Patients taking Sulfapyridine may havefalsely elevated Glucose levels. Patients should be drawnfor Glucose before the initial administration of eitherdrug. BUN 21 mg/dL 7-23 [facility] CRE 1.040 mg/dL 0.500-1.300 [facility] GFR > 60 mL/min [facility] CHLORIDE 105 mmol/L 99-110 [facility] NA 136 mmol/L 136-147 [facility] POTASSIUM 4.5 mmol/L 3.5-5.1 [facility] TCO2 21 mmol/L 20-33 [facility] ANION GAP 14.5 10.0-20.0 [facility] CA 6.9 mg/dL 8.3-10.7 [facility] ALKALINE PHOS 84 U/L 45-117 [facility] TP 5.1 g/dL 6.0-7.8 [facility] ALB 2.4 g/dL 3.5-5.0 [facility] ESRD Dialysis patient Albumin reference range: 2.9-4.4 g/dL GL 2.7 g/dL 2.3-3.5 [facility] A/G 0.9 1.0-2.5 [facility] T. BILIRUBIN 0.5 mg/dL 0.1-1.1 [facility] The [employer] Total Bilirubin is n ot recommended forpatients undergoing treatment with eltrombopag (Promacta)due to the potential for falsely elevated results. ALTI 21 U/L 6-54 [facility] Patients taking Sulfasalazine and/or Sul fapyridine may havefalsely depressed ALT levels. Patients should be drawn forALT before the initial administration of either drug. AST 18 U/L 8-40 [facility] Patients taking Sulfasalazine and/or Sul fapyridine may havefalsely depressed AST levels. Patients should be drawn forAST before the initial administration of either drug. ID Date Data Source [id number] 09/02/2020 05:41:00 AM EST [facility] Name Value Range Interpretation Code Description Data [facility](s) Supporting Document(s) D-DIMER 4.40 mg/L [facility] CUT OFF VALUE = 0.5 mg/L The negative pr edictive value for DVT or PE is at 98% whenthe result is below the cut off. ID Date Data Source [id number] 09/02/2020 05:15:00 AM [facility] Name Value Range Interpretation Code Description Data [facility](s) Supporting Document(s) WBC 12.16 x10E3/uL 4.0-10.5 [facility] RBC 3.69 x10E6/uL 4.70-6.00 [facility] Hemoglobin 11.3 g/dL 14.0-18.0 [facility] Hematocrit 34.5 % 42.0-52.0 [facility] MCV 93.5 fL 81.0-99.0 [facility] MCH 30.6 pg 27.0-31.0 [facility] MCHC 32.8 g/dL 32.7-35.6 [facility] RDW 14.0 % 11.5-14.0 [facility] Platelet count 70 x10E3/uL 150-450 L [facility] MPV 12.2 fl 6.9-9.5 [facility] Neutrophils 89.4 % 34-64 [facility] Lymphocytes 6.2 % 25-45 [facility] Monocytes 3.4 % 1.7-10.6 [facility] Eosinophils 0.2 % 0.4-7.0 [facility] Basophils 0.1 % 0.1-2.0 [facility] Imm. Gran. 0.7 % 0.1-2.0 [facility] Abs. Neutro. 10.88 x10E3/uL 1.2-7.6 [facility] Abs. Lymph. 0.75 x10E3/uL 1.0-3.5 [facility] Abs. [place]. 0.41 x10E3/uL 0.1-1.0 [facility] Abs. Eosin. 0.02 x10E3/uL 0.1-0.7 [facility] Abs. Baso. 0.01 x10E3/uL 0.0-0.1 [facility] Abs. Imm. Gran. 0.09 x10E3/uL 0.0-0.1 N [facility] spital ANRBC% 0 % 0 [facility] ID Date Data Source [id number] 09/01/2020 08:31:00 PM EST [facility] Name Value Range Interpretation Code Description Data Zahraa rce(s) Supporting Document(s) FGLU 380 mg/dL 70-110 [facility] ID Date Data Source [id number] 09/01/2020 07:03:00 PM EST [facility] Name Value Range Interpretation Code Description Data Zahraa rce(s) Supporting Document(s) FGLU 377 mg/dL 70-110 [facility] ID Date Data Source [id number] 09/01/2020 04:09:00 PM EST [facility] Exam Number: [id number] OF EXAMINATIO N: 09/01/2020 18:02 ESTU/S VENOUS [...] rce(s) Supporting Document(s) ID Date Data Source [id number] 09/01/2020 12:41:00 PM EST [facility] Name Value Range Interpretation Code Description Data Zahraa rce(s) Supporting Document(s) FGLU 288 mg/dL 70-110 [facility] ID Date Data Source [id number] 09/01/2020 11:40:00 AM EST [facility] [address] [id number] NOTEPATIENT NAME: JANICE VERMA PHYSICIAN: AMADO BAXTER MDAUTHOR: Loyd VALDEZ, GisselleADM. DATE: 08/31/20 MR#: [id number] NOTE DATE: 09/01/20 RM#: [id number] TIME: 1151 [...] MeanPulse Ox 96 97 95O2 DeliveryO2 Flow BlbaIqU36 /[id number] 97.4Pulse 57Resp 18B/P 109/53B/P MeanPulse Ox 96O2 DeliveryO2 Flow WnomQoB3Amfntd/OutputIntake/Output Summary 24 hours08/31 1900 09/01 0700Intake Total [...] HCl (VITAMIN B1) 100 MG DAILY POTiotropium [place] (Spiriva) 1 puffDAILY INHInsulin Aspart (Humalog Insulin) [...] no lymphadenopathyPsych/Mental Status normal affectResultsLaboratory DataRecent Labs-24 hours08/31004247 8630 0455ChemistrySodium (136 - 147 mmol/L) 137Potassium (3.5 [...] 10 %) 4Platelet Morphology DECREASEDRBC Morphology 1+ MGIOTGOXUTUC8309/01 0522ChemistryPOC Glucose (70 - 110 mg/dL) 399 HHemoglobin A1c PendingRadiologyEXAM# TYPE/EXAM [id number] CT/CT ANGIO CHEST WITH IV FOR PDATE [...] pulmonary embolus.PAGE 1 Signed Report Printed From [facility], [place] [address]Y[place] CONSULTATIONDate of : 1965 Name: JANICE VERMA MMedrec Number: [id number] Phys: GISSELLE KAUFMAN PNEUMATIC TOOL OPERATOR-CExam Date: 08/31/2020 Location: 2EASTProcedure: ANGIOCXRPE, CT ANGIO CHEST WITH IV Rad Numb: [id number] \\EXAM# TYPE/EXAM [id number] CT/CT ANGIO CHEST WITH IV FOR PElectronically [...] satisfactory.8. DepressionA&PContinue Prozac9. BPH (benign prostatic hyperplasia)A&PContinue Glzicx59. HUMAN RHINOVIRUSA&PSupportive care.11. Elevated d-dimerA&PCTA ruled out PE. Doubt DVT in lower extremities however ultrasound ispending. This will need follow-up.Additional NotesDVT prophylaxis with LovenoxHe is on PPI for GI prophylaxis given his steroid useTotal time spent 35 minutesDisposition plan discharge after remdesivir complete.Resuscitation status Full codePlan discussed with patientCase discussed with rehabilitation case coordinator, nursing staffADDENDUM: Kirit Mendezew on 09/01/20 at 1749EXAM# TYPE/EXAM [id number] US/U/S VENOUS DOPP ARM/LEG BILADATE OF EXAMINATION: [...] extremity.Braun's cyst.DATE SIGNED: 09/01/20 Electronically SignedTIME SIGNED: 174 GISSELLE BALDEMAR KAUFMAN Name Value Range Interpretation Code Description Data Zahraa rce(s) Supporting Document(s) ID Date Data Source [id number] 09/01/2020 05:29:00 AM EST [facility] Name Value Range Interpretation Code Description Data Zahraa rce(s) Supporting Document(s) FGLU 399 mg/dL 70-110 [facility] ID Date Data Source [id number] 09/01/2020 11:54:00 AM EST [facility] COMMENTS TO LAB: off am labs Name Value Range Interpretation Code Description Data Zahraa rce(s) Supporting Document(s) HbA1C 7.50 % 3.8-5.6 [facility] Suggested Diagnosis HbA1c% Diabet ic >/= 6.5Prediabetes 5.7%-6.4%Normal < 5.7% ID Date Data Source [id number] 09/01/2020 06:26:00 AM EST [facility] Name Value Range Interpretation Code Description Data Zahraa rce(s) Supporting Document(s) WBC 10.21 x10E3/uL 4.0-10.5 N [facility] l RBC 3.49 x10E6/uL 4.70-6.00 [facility] Hemoglobin 10.9 g/dL 14.0-18.0 [facility] Hematocrit 32.9 % 42.0-52.0 [facility] MCV 94.3 fL 81.0-99.0 [facility] MCH 31.2 pg 27.0-31.0 [facility] MCHC 33.1 g/dL 32.7-35.6 [facility] RDW 14.3 % 11.5-14.0 [facility] Platelet count 70 x10E3/uL 150-450 [facility] MPV 11.7 fl 6.9-9.5 [facility] SEG. NEUTROPHIL 82 % 34-64 [facility] BAND 8 % 5-11 [facility] LYMPHOCYTE 6 % 25-45 [facility] MONOCYTES 4 % 2-10 [facility] PLATELET MORPH DECREASED N [facility] PLATELET MORPHOLOGY EXPECTED RESULT:NORM AL = NO REMARKABLE MORPHOLOGYAny findings other than Normal will be reported and areconsidered Abnormal. The significance of Abnormal findingsare to be clinically correlated by the provider. RBC MORPHOLOGY 1+ ANISOCYTOSIS [facility] ospital RBC MORPHOLOGY EXPECTED RESULTS: NORMAL = NORMOCHROMIC, NORMOCYTIC CELLSAny findings other than Normal will be reported and areconsidered Abnormal. The significance of Abnormalfindings are to be clinically correlated by the provider. ID Date Data Source [id number] 09/01/2020 05:52:00 [facility] Name Value Range Interpretation Code Description Data Zahraa rce(s) Supporting Document(s) GLU 350 mg/dL 70-110 [facility] Patients taking Sulfasalazine may have f alsely depressedGlucose levels. Patients taking Sulfapyridine may havefalsely elevated Glucose levels. Patients should be drawnfor Glucose before the initial administration of eitherdrug. BUN 20 mg/dL 7-23 [facility] CRE 1.210 mg/dL 0.500-1.300 [facility] GFR > 60 mL/min [facility] CHLORIDE 106 mmol/L 99-110 [facility] NA 137 mmol/L 136-147 [facility] POTASSIUM 4.1 mmol/L 3.5-5.1 [facility] TCO2 21 mmol/L 20-33 [facility] ANION GAP 14.1 10.0-20.0 [facility] CA 7.0 mg/dL 8.3-10.7 [facility] ALKALINE PHOS 71 U/L 45-117 [facility] TP 5.2 g/dL 6.0-7.8 [facility] ALB 2.6 g/dL 3.5-5.0 [facility] ESRD Dialysis patient Albumin reference range: 2.9-4.4 g/dL GL 2.6 g/dL 2.3-3.5 [facility] A/G 1.0 1.0-2.5 [facility] T. BILIRUBIN 0.4 mg/dL 0.1-1.1 [facility] The [employer] Total Bilirubin is n ot recommended forpatients undergoing treatment with eltrombopag (Promacta)due to the potential for falsely elevated results. ALTI 22 U/L 6-54 [facility] Patients taking Sulfasalazine and/or Sul fapyridine may havefalsely depressed ALT levels. Patients should be drawn forALT before the initial administration of either drug. AST 13 U/L 8-40 [facility] Patients taking Sulfasalazine and/or Sul fapyridine may havefalsely depressed AST levels. Patients should be drawn forAST before the initial administration of either drug. ID Date Data Source [id number] 09/01/2020 05:49:00 AM EST [facility] Name Value Range Interpretation Code Description Data Zahraa rce(s) Supporting Document(s) C-REACTIVE PROT 15.50 mg/dL 0.0-0.49 [facility] ital ID Date Data Source [id number] 09/01/2020 05:49:00 AM EST [facility] Name Value Range Interpretation Code Description Data Zahraa rce(s) Supporting Document(s) MAGNESIUM 1.9 mg/dL 1.6-2.6 [facility] ID Date Data Source [id number] 08/31/2020 08:22:00 PM EST [facility] Exam Number: [id number] OF EXAMINATIO N: 08/31/2020 18:02 ESTCT ANGIO [...] rce(s) Supporting Document(s) ID Date Data Source [id number] 08/31/2020 04:57:00 PM EST [facility] Name Value Range Interpretation Code Description Data Zahraa rce(s) Supporting Document(s) FGLU 349 mg/dL 70-110 [facility] ID Date Data Source [id number] 08/31/2020 01:26:00 PM EST [facility] Name Value Range Interpretation Code Description Data Zahraa rce(s) Supporting Document(s) FGLU 231 mg/dL 70-110 [facility] ID Date Data Source [id number] 09/05/2020 12:42:00 PM EST [facility] Name Value Range Interpretation Code Description Data Zahraa rce(s) Supporting Document(s) [facility] ID Date Data Source [id number] 09/05/2020 12:42:00 PM EST [facility] Name Value Range Interpretation Code Description Data Zahraa rce(s) Supporting Document(s) [facility] ID Date Data Source [id number] 08/31/2020 08:42:00 AM EST [facility] Name Value Range Interpretation Code Description Data Zahraa rce(s) Supporting Document(s) LACTIC ACID 2 2.0 MMOL/L 0.4-2.0 N [facility] l ID Date Data Source [id number] 08/31/2020 05:54:00 AM EST [facility] Name Value Range Interpretation Code Description Data Zahraa rce(s) Supporting Document(s) FGLU 301 mg/dL 70-110 [facility] ID Date Data Source [id number] 08/31/2020 05:29:00 AM EST [facility] Name Value Range Interpretation Code Description Data Zahraa rce(s) Supporting Document(s) WBC 13.84 x10E3/uL 4.0-10.5 [facility] l RBC 3.77 x10E6/uL 4.70-6.00 [facility] Hemoglobin 11.6 g/dL 14.0-18.0 [facility] Hematocrit 34.9 % 42.0-52.0 [facility] MCV 92.6 fL 81.0-99.0 [facility] MCH 30.8 pg 27.0-31.0 [facility] MCHC 33.2 g/dL 32.7-35.6 [facility] RDW 14.4 % 11.5-14.0 [facility] Platelet count 82 x10E3/uL 150-450 [facility] MPV 11.8 fl 6.9-9.5 [facility] ANRBC% 0 % 0 [facility] SEG. NEUTROPHIL 82 % 34-64 [facility] BAND 5 % 5-11 [facility] LYMPHOCYTE 8 % 25-45 [facility] MONOCYTES 5 % 2-10 [facility] PLATELET MORPH DECREASED N [facility] PLATELET MORPHOLOGY EXPECTED RESULT:NORM AL = NO REMARKABLE MORPHOLOGYAny findings other than Normal will be reported and areconsidered Abnormal. The significance of Abnormal findingsare to be clinically correlated by the provider. ID Date Data Source [id number] 08/31/2020 05:11:00 AM EST [facility] Name Value Range Interpretation Code Description Data Zahraa rce(s) Supporting Document(s) MAGNESIUM 1.7 mg/dL 1.6-2.6 [facility] ID Date Data Source [id number] 08/31/2020 05:11:00 AM EST [facility] Name Value Range Interpretation Code Description Data Zahraa rce(s) Supporting Document(s) MELISSA 2.7 mg/dL 2.5-4.5 [facility] ID Date Data Source [id number] 08/31/2020 05:11:00 AM EST [facility] Name Value Range Interpretation Code Description Data Zahraa rce(s) Supporting Document(s) TROPI < 0.015 ng/mL 0.000-0.079 [facility] ID Date Data Source [id number] 08/31/2020 05:11:00 AM EST [facility] Name Value Range Interpretation Code Description Data Zahraa rce(s) Supporting Document(s) C-REACTIVE PROT 11.70 mg/dL 0.0-0.49 [facility] ID Date Data Source [id number] 08/31/2020 05:11:00 AM EST [facility] Name Value Range Interpretation Code Description Data Zahraa rce(s) Supporting Document(s) GLU 296 mg/dL 70-110 [facility] Patients taking Sulfasalazine may have f alsely depressedGlucose levels. Patients taking Sulfapyridine may havefalsely elevated Glucose levels. Patients should be drawnfor Glucose before the initial administration of eitherdrug. BUN 18 mg/dL 7-23 [facility] CRE 1.220 mg/dL 0.500-1.300 [facility] GFR > 60 mL/min [facility] CHLORIDE 105 mmol/L 99-110 [facility] NA 136 mmol/L 136-147 [facility] POTASSIUM 4.7 mmol/L 3.5-5.1 [facility] TCO2 22 mmol/L 20-33 [facility] ANION GAP 13.7 10.0-20.0 [facility] CA 7.2 mg/dL 8.3-10.7 [facility] ALKALINE PHOS 71 U/L 45-117 [facility] TP 6.0 g/dL 6.0-7.8 [facility] ALB 2.9 g/dL 3.5-5.0 [facility] ESRD Dialysis patient Albumin reference range: 2.9-4.4 g/dL GL 3.1 g/dL 2.3-3.5 [facility] A/G 0.9 1.0-2.5 [facility] T. BILIRUBIN 0.4 mg/dL 0.1-1.1 [facility] [employer] Total Bilirubin is n ot recommended forpatients undergoing treatment with eltrombopag (Promacta)due to the potential for falsely elevated results. ALTI 37 U/L 6-54 [facility] Patients taking Sulfasalazine and/or Sul fapyridine may havefalsely depressed ALT levels. Patients should be drawn forALT before the initial administration of either drug. AST 27 U/L 8-40 [facility] Patients taking Sulfasalazine and/or Sul fapyridine may havefalsely depressed AST levels. Patients should be drawn forAST before the initial administration of either drug. ID Date Data Source [id number] 08/31/2020 05:05:00 AM EST [facility] Name Value Range Interpretation Code Description Data Zahraa rce(s) Supporting Document(s) TROPI < 0.015 ng[facility]mL 0.000-0.079 [facility] Data Source [id number] 08/31/2020 04:57:00 AM EST [facility] Name Value Range Interpretation Code Description Data Zahraa rce(s) Supporting Document(s) LACTIC ACID JANIA 2.6 mmol/L 0.4-2.0 H [facility] ID Date Data Source [id number] 08/31/2020 04:56:00 AM [facility] Name Value Range Interpretation Code Description Data Zahraa rce(s) Supporting Document(s) D-DIMER 1.79 mg/L [facility] CUT OFF VALUE = 0.5 mg/L The negative pr edictive value for DVT or PE is at 98% whenthe result is below the cut off. ID Date Data Source [id number] 08/31/2020 03:33:00 AM [facility] [address] [id number] AND PHYSICALPATIENT NAME: JANICE VERMA MR#: [id number] PHYSICIAN: AMADO BAXTER MDAUTHOR: Amado Baxter MD DATE: 08/31/20 RM#: [id number] & PHYSICAL DATE: 08/31/20 : 65EVALUATION TIME: 0438HistoryChief Complaint/Admit ReasonChest pain and shortness of breathHistory of Presenting [id number]-nie male with a past medical history of [...] nausea and bilious vomiting x1. EKG at [facility] showed nonspecific ST/T wave changes, troponin was negative. At [facility] patient was found on chest x-ray [...] Xopenex, aspirin, morphine and IV fluids at [facility] and transferred to [facility] for further management.Past Medical/Surgical HistoryPast Medical/Surgical HistoryMedical ProblemsBPH (benign prostatic hyperplasia)Chest painChronic alcohol abuseDepressionDiabetesHUMAN RHINOVIRUSHyperlipidemiaHypertensionPneumonia due to COVID-19 virusSevere sepsisReconciled Home Med ListSee Reconciled Home Medication ListAllergiesCoded Allergies:niacin (Intermediate, FACIAL REDDNESS/ITCHING 04/17/17)Family history Father from an [place] at age of 68.Social History no recreational [...] polyuria.NeurologicalDenies: dizziness, seizure.PsychDenies: agitation, anxiety.ExamVital SignsVital Signs-24 HRS12/338244Pbbi 97.8Pulse 75Resp 17B/P 118/72B/P MeanPulse Ox 94O2 DeliveryO2 Flow OdeqRwM2Shmswftu ExaminationGeneral Appearance no acute distress, afebrile, alert, [...] rce(s) Supporting Document(s) ID Date Data Source [id number] 08/30/2020 09:53:00 PM EST [facility] TSYSORDER [id number] Name Value Range Interpretation Code Description Data Zahraa rce(s) Supporting Document(s) LACTIC ACID 2.3 mmol/L 0.4-2.0 H [facility] ID Date Data Source [id number] 08/30/2020 06:54:[address] [facility] [facility] DATE OF EXAMINATION: 08/30/2020 17:47 ES [...] e(s) Supporting Document(s) ID Date Data Source [id number] 08/30/2020 05:57:00 PM [facility] DATE OF EXAMINATION: 08/30/2020 15:17 ES T [...] rce(s) Supporting Document(s) ID Date Data Source [id number] 08/30/2020 06:07:00 PM EST [facility] T[facility] [id number] Name Value Range Interpretation Code Description Data Zahraa rce(s) Supporting Document(s) PH 7.33 7.31-7.41 [facility] VENOUS PCO2 30.7 mmHg 41-51 L [facility] VENOUS PO2 58 mmHg 35-42 H [facility] VENOUS BLODD O2 SATURATION 81.5 % 68-77 H [facility] VENOUS BLOOD HCO3 15.6 meq/L 24.0-25.0 [facility] VENOUS BASE EXCESS -8.8 -3.0-3.0 [facility] VENOUS BLOOD CO2 16.6 mmol/L 23.0-32.0 [facility] ID Date Data Source [id number] 09/06/2020 11:33:00 AM EST [facility] Name Value Range Interpretation Code Description Data Zahraa rce(s) Supporting Document(s) [facility] ID Date Data Source [id number] 09/06/2020 11:33:00 AM EST [facility] FIRST [facility] Name Value Range Interpretation Code Description Data Zahraa rce(s) Supporting Document(s) [facility] ID Date Data Source [id number] 08/30/2020 03:35:00 PM EST [facility] Name Value Range Interpretation Code Description Data Zahraa rce(s) Supporting Document(s) SARS COV2 TRP [facility] by [facility]. ID Date Data Source [id number] 08/30/2020 05:19:00 PM EST [facility] TSYSORDER [id number] Name Value Range Interpretation Code Description Data Zahraa rce(s) Supporting Document(s) FERRITIN 171 ng/mL 26-388 [facility] ID Date Data Source [id number] 08/30/2020 05:11:00 PM EST [facility] TSYSORDER [id number] Name Value Range Interpretation Code Description Data Zahraa rce(s) Supporting Document(s) LACTIC ACID 4.8 mmol/L 0.4-2.0 H [facility] ID Date Data Source [id number] 08/30/2020 05:06:00 PM EST [facility] TSYSORDER [id number] Name Value Range Interpretation Code Description Data Zahraa rce(s) Supporting Document(s) C REACTIVE PROTEIN 11.5 mg/L 0.0-3.0 [facility] ID Date Data Source [id number] 08/30/2020 05:06:00 PM EST [facility] TSYSORDER [id number] Name Value Range Interpretation Code Description Data Zharaa rce(s) Supporting Document(s) CREATINE PHOSPHOKINASE 164 U/L 39-308 [facility] ID Date Data Source [id number] 08/30/2020 04:28:00 PM EST [facility] TSYSORDER [id number] Name Value Range Interpretation Code Description Data Zahraa rce(s) Supporting Document(s) GLUCOSE 280 mg/dL 74-106 [facility] BLOOD UREA NITROGEN 20 mg/dL 7-18 H [facility] ital CREATININE 1.25 mg/dL 0.7-1.3 [facility] GLOMERULAR FILTRATION RATE 60 mL/min [facility] GFR IS CALCULATED IN mL/min/1.73m2 VINICIUS L FUNCTION: >90MILDLY DECREASED: 60-89MILDY TO MODERATELY DECREASED: 45-59 MODERATELY TO SEVERELY DECREASED: 30-44SEVERELY DECREASED: 15-29RENAL FAILURE: <15 AST 46 U/L 15-37 [facility] ALT 45 U/L 12-78 [facility] ALKALINE PHOSPHATASE 86 U/L 46-116 [facility]ital TOTAL BILIRUBIN 0.4 mg/dL 0.2-1.0 [facility] TOTAL PROTEIN 7.3 g/dl 6.4-8.2 [facility] ALBUMIN 3.8 gm/dL 3.4-5.0 [facility] ID Date Data Source [id number] 08/30/2020 04:21:00 PM [facility] TSYSORDER [id number] Name Value Range Interpretation Code Description Data Zahraa rce(s) Supporting Document(s) FREE T4 1.0 ng/dL 0.76-1.46 [facility] ID Date Data Source [id number] 08/30/2020 04:21:00 PM [facility] TSYSORDER [id number] Name Value Range Interpretation Code Description Data Zahraa rce(s) Supporting Document(s) TSH 0.868 uIU/mL 0.36-3.74 [facility] ID Date Data Source [id number] 08/30/2020 04:19:00 PM [facility] Name Value Range Interpretation Code Description Data Zahraa rce(s) Supporting Document(s) PARTIAL THROMBOPLASTIN TIME 26.0 SECONDS 21.2-27.3 [facility] ID Date Data Source [id number] 08/30/2020 04:19:00 PM [facility] Name Value Range Interpretation Code Description Data Zahraa rce(s) Supporting Document(s) PROTHROMBIN TIME (PATIENT) 10.9 SECONDS 9.1-11.6 [facility] INR 1.05 0.87-1.06 [facility] ID Date Data Source [id number] 08/30/2020 03:16:00 PM [facility] TSYSORDER [id number] Name Value Range Interpretation Code Description Data Zahraa rce(s) Supporting Document(s) NEUTROPHILS 87 % 50-80 [facility] BAND 6 % 0-5 [facility] LYMPHOCYTE 4 % 25-50 L [facility] MONOCYTE 3 % 2.0-10.0 [facility] PLATELET ESTIMATE DECREASED [facility] MORPH[facility]Y EXPECTED RESULTS:NORMAL= NORMOCHROMIC, NORMOCYTIC CELLSAbnormal Morphologic Findings > or = to 1+ are reported.Clinicopathologic correlation by the provider is required todetermine significance of finding. ID Date Data Source [id number] 08/30/2020 04:17:00 PM [facility] TSYSORDER [id number] Name Value Range Interpretation Code Description Data Zahraa rce(s) Supporting Document(s) WHITE BLOOD COUNT 19.7 K/mm3 4.0-10.0 [facility] RED BLOOD COUNT 4.16 M/mm3 4.50-6.00 L [facility] l HEMOGLOBIN 12.9 gm/dL 14.0-18.0 L [facility] HEMATOCRIT 37.6 % 42.0-54.0 L [facility] MEAN CELL VOLUME 90.4 fl 80-96 [facility] MEAN CORPUSCULAR HEMOGLOBIN 31.0 pg 27.0-31.0 H [facility] MEAN CORPUSCULAR HGB CONC 34.3 g/dl 32.0-36.0 [facility] RED CELL DISTRIBUTION WIDTH 14.0 % 10.0-14.5 [facility] PLATELET COUNT 119 K/mm3 172-450 L [facility] MEAN PLATELET VOLUME 11.4 fl 9.0-13.0 [facility] GRAN % 92.7 % 50-80.0 H [facility] IG% 0.3 % 0.0-0.2 [facility] LYMPH % 2.1 % 25.0-50.0 *L [facility] MONO % 4.9 % 2.0-10.0 [facility] EOS % 0.0 % 0-5.0 [facility] BASO % 0.0 % 0.0-2.0 [facility] GRAN # 18.2 K/mm3 2.0-8.00 *H [facility] IG# 0.1 K/mm3 0.0-0.2 [facility] LYMPH # 0.4 K/mm3 1.0-5.0 L [facility] MONO # 1.0 K/mm3 0.10-1.20 [facility] EOS # 0.0 K/mm3 0.0-0.5 [facility] BASO # 0.0 K/mm3 0.0-0.2 [facility] ID Date Data Source [id number] 08/30/2020 04:45:00 PM EST [facility] TSYSORDER [id number] Name Value Range Interpretation Code Description Data Zahraa rce(s) Supporting Document(s) Adenovirus Not Detected Detected Not [facility] Coronavirus 229E Not Detected Detected Not [facility] Coronavirus HKU1 Not Detected Detected Not [facility] Coronavirus NL63 Not Detected Detected Not [facility] Coronavirus OC43 Not Detected Detected Not [facility] Sars Cov 2 DETECTED Detected Not [facility] Human Metapneumovirus Not Detected Detected [facility] Human Rhinovirus DETECTED Detected [facility] Influenza A Not Detected Detected Not [facility] Influenza B Not Detected Detected Not [facility] Parainfluenza Virus 1 Not Detected Detected Not [facility] Parainfluenza Virus 2 Not Detected Detected Not [facility] Parainfluenza Virus 3 Not Detected Detected Not [facility] Parainfluenza Virus 4 Not Detected Detected Not [facility] Respiratory Syncytial Virus Not Detected Detected Not [facility] Bordetella parapertus ([id number]) Not Detected Detected Not [facility] Bordetella pertussis (ptxP) Not Detected Detected Not [facility] Chlamydia pneumoniae Not Detected Detected Not [facility] Mycoplasma pneumoniae Not Detected Detected Not [facility] The Above results have been determined b y using the [employer] system.[employer] is an automated in vitro diagnostic system thatutilizes nested multiplex Polymerase Chain Reaction (PCR)and high-resolution melting analysis to detect and identifymultiple nucleic acid targets from clinical specimens. ID Date Data Source [id number] 08/30/2020 04:28:00 PM EST [facility] TSYSORDER [id number] Name Value Range Interpretation Code Description Data Zahraa rce(s) Supporting Document(s) MAGNESIUM 1.8 mg/dL 1.8-2.4 [facility] ID Date Data Source [id number] 08/30/2020 04:28:00 PM EST [facility] TSYSORDER [id number] Name Value Range Interpretation Code Description Data Zahraa rce(s) Supporting Document(s) TROPONIN I < 0.017 ng/mL 0.0-0.056 [facility] ID Date Data Source [id number] 08/30/2020 04:28:00 PM EST [facility] TSYSORDER [id number] Name Value Range Interpretation Code Description Data Zahraa rce(s) Supporting Document(s) LIPASE 123 U/L 73-393 [facility] ID Date Data Source [id number] 08/18/2020 11:00:00 PM EST [facility] Name Value Range Interpretation Code Description Data Zahraa rce(s) Supporting Document(s) SARS coronavirus 2 RNA [Presence] in Res piratory specimen by DILLON with probe detection [facility] This lab was ordered by [facility] a nd reported by [facility]. ID Date Data Source [id number] 08/09/2020 09:20:00 AM EST [facility] Name Value Range Interpretation Code Description Data Zahraa rce(s) Supporting Document(s) SARS coronavirus 2 RNA [Presence] in Res piratory specimen by DILLON with probe detection [facility] This lab was ordered by [facility] a nd reported by [facility]. ID Date Data Source [id number] 07/13/2020 05:03:06 PM EST [facility] Name Value Range Interpretation Code Description Data Zahraa rce(s) Supporting Document(s) Discharge Summary [facility] [id number] [id number] [file] [id number] ID Date Data Source [id number] 07/10/2020 12:00:27 PM [facility] Name Value Range Interpretation Code Description Data Zahraa rce(s) Supporting Document(s) Glucose [Mass/volume] in Capillary blood by Glucometer 229 mg/dL 70- 140 [facility] ID Date Data Source [id number] 07/10/2020 09:43:36 AM [facility] Name Value Range Interpretation Code Description Data Zahraa rce(s) Supporting Document(s) Glucose [Mass/volume] in Capillary blood by Glucometer 203 mg/dL 70- 140 [facility] ID Date Data Source [id number] 07/10/2020 04:22:11 AM [facility] Value Range Interpretation Code Description Data Zahraa rce(s) Supporting Document(s) Leukocytes [#/volume] in Blood by Automated count 3.9 10*3/uL 4-10 L [facility] Erythrocytes [#/volume] in Blood by Automated count 3.40 10*6/uL 4.6- 6.1 [facility] Hemoglobin [Mass/volume] in Blood 10.7 g/dL 13.5-18 L [facility] Hematocrit [Volume Fraction] of Blood by Automated count 31.6 % 4 1-53 [facility] Erythrocyte mean corpuscular volume [Entitic volume] by Auto mated count 92.8 fL 80-96 [facility] Erythrocyte mean corpuscular hemoglobin [Entitic mass] by Automated count 31.4 pg 27-33 [facility] Erythrocyte mean corpuscular hemoglobin concentration [Mass/volume] by Automated count 33.8 g/dL 32.0-36.0 [facility] distribution width [Ratio] by Automated count 14.5 % 11.5-14.5 [facility] Platelets [#/volume] in Blood by Automated count 58 10*3/uL 150-400 L [facility] Differential cell count method - Blood [facility] Neutrophils/100 leukocytes in Blood by Automated count 59 % [facility] Lymphocytes/100 leukocytes in Blood by Automated count 26 % [facility] Monocytes/100 leukocytes in Blood by Automated count 12 % [facility] Eosinophils/100 leukocytes in Blood by Automated count 2 % [facility] Basophils/100 leukocytes in Blood by Automated count 1 % [facility] Neutrophils [#/volume] in Blood by Automated count 2.31 10*3/uL 1.8-7 .0 [facility] Lymphocytes [#/volume] in Blood by Automated count 1.02 10*3/uL 1.2-4 .0 L [facility] Monocytes [#/volume] in Blood by Automated count 0.47 10*3/uL 0-0.8 [facility] Eosinophils [#/volume] in Blood by Automated count 0.10 10*3/uL 0-0.5 [facility] Basophils [#/volume] in Blood by Automated count 0.03 10*3/uL 0-0.2 [facility] Nucleated erythrocytes/100 leukocytes [Ratio] in Blood by Automated count 0 /100{WBCs} 0-0 [facility] ID Date Data Source [id number] 07/10/2020 04:44:03 AM [facility] Name Value Range Interpretation Code Description Data Zahraa rce(s) Supporting Document(s) Phosphate [Mass/volume] in Serum or Plasma 2.4 mg/dL 2.5-4.5 [facility] ID Date Data Source [id number] 07/10/2020 04:44:03 AM [facility] Name Value Range Interpretation Code Description Data Zahraa rce(s) Supporting Document(s) Albumin [Mass/volume] in Serum or Plasma by Bromocresol green (BCG) dye binding method 3.2 g/dL 3.5-5.2 [facility] Bilirubin.total [Mass/volume] in Serum or Plasma 0.4 mg/dL <1.2 [facility] Calcium [Mass/volume] in Serum or Plasma 8.0 mg/dL 8.6-10.0 [facility] Chloride [Moles/volume] in Serum or Plasma 107 mmol/L 98-107 [facility] Creatinine [Mass/volume] in Serum or Plasma 0.75 mg/dL 0.70-1.20 [facility] Glucose [Mass/volume] in Serum or Plasma 122 mg/dL 70-140 [facility] Alkaline phosphatase [Enzymatic activity/volume] in Serum or Plasma 55 U/L 40-129 [facility] Potassium [Moles/volume] in Serum or Plasma 3.6 mmol/L 3.4-5.1 [facility] Protein [Mass/volume] in Serum or Plasma 5.1 g/dL 6.4-8.3 [facility] Sodium [Moles/volume] in Serum or Plasma 141 mmol/L 136-145 [facility] Aspartate aminotransferase [Enzymatic activity/volume] in Serum or Plasma 37 U/L <40 [facility] Urea nitrogen [Mass/volume] in Serum or Plasma 4 mg/dL 6-20 L [facility] Osmolality of Serum or Plasma by calculation 290 mosm/kg 275-300 [facility] Creatinine/Urea nitrogen [Mass Ratio] in Serum or Plasma 6 [facility] Bicarbonate [Moles/volume] in Serum 28 mmol/L 22-29 [facility] Alanine aminotransferase [Enzymatic activity/volume] in Seru m or Plasma 30 U/L <41 [facility] Anion gap 3 in Serum or Plasma 6 mmol/L 8-15 L [facility] Glomerular filtration rate/1.73 sq M pre dicted among non-blacks [Volume Rate/Area] in Serum or Plasma by Creatinine-based formula (MDRD) >6 0 [facility] Glomerular filtration rate/1.73 sq M pre dicted among blacks [Volume Rate/Area] in Serum or Plasma by Creatinine-based formula (MDRD) >60 [facility] ID Date Data Source [id number] 07/10/2020 05:42:51 AM [facility] Name Value Range Interpretation Code Description Data Zahraa rce(s) Supporting Document(s) Magnesium [Mass/volume] in Serum or Plasma 1.6 mg/dL 1.6-2.6 [facility] ID Date Data Source [id number] 07/09/2020 06:59:49 PM [facility] Name Value Range Interpretation Code Description Data Zahraa rce(s) Supporting Document(s) Phosphate [Mass/volume] in Serum or Plasma 2.2 mg/dL 2.5-4.5 [facility] ID Date Data Source [id number] 07/09/2020 04:52:28 PM [facility] Value Range Interpretation Code Description Data Zahraa rce(s) Supporting Document(s) Glucose [Mass/volume] in Capillary blood by Glucometer 125 mg/dL 70- 140 [facility] ID Date Data Source [id number] 07/09/2020 04:51:19 PM [facility] Value Range Interpretation Code Description Data Zahraa rce(s) Supporting Document(s) Phosphate [Mass/volume] in Serum or Plasma 2.2 mg/dL 2.5-4.5 L [facility] ID Date Data Source [id number] 07/09/2020 12:28:42 PM [facility] Value Range Interpretation Code Description Data Zahraa rce(s) Supporting Document(s) Glucose [Mass/volume] in Capillary blood by Glucometer 122 mg/dL 70- 140 [facility] ID Date Data Source [id number] 07/09/2020 10:54:16 AM [facility] Value Range Interpretation Code Description Data Zahraa rce(s) Supporting Document(s) Phosphate [Mass/volume] in Serum or Plasma 2.7 mg/dL 2.5-4.5 [facility] ID Date Data Source [id number] 07/09/2020 09:47:38 AM [facility] Value Range Interpretation Code Description Data Zahraa rce(s) Supporting Document(s) [facility] [id number] m [file] ICAgICAgICAgICAgICAgICAgICAgICAgICAgICAgIC NtJSIdZNOpVSKxZLIvLFAzAPBjZBWqTDItYEIpDJUmMJRvQLRrYDQqHLRgRWEyBRUvEFJqNNMtIU7QVF AgICAgICAgICAgICAgICAgICAgICAgICAgICAgICAgICAgICAgICAgICAgICAgICAgICAgICAgICAgIC AgICAgICAgICAgICAgICAgICAgICAgICAgICAgICAg DVQsSRDeMS5LOUVkBFPsFOOtSRSkCWVoJCBsHIGmVFVdHEAuDBKuIGBcDLYzTKVeJZPpXFFzTVAcIZIx DOCjJZXuTFCfWYNdGJPkCRCaRQDfZQYpJUAhYNCxWXWeNJYuNYRdILUfKUSyILFiZB2TXLUsEDInKBBd ICAgICAgICAgICAgICAgICAgICAgICAgICAgICAgIC AgICAgICAgICAgICAgICAgICAgICAgICAgICAgICAgICAgICAgICAgICAgICAgICAgICAgICAgICAgIA 0KICAgICAgICAgICAgICAgICAgICAgICAgICAgICAgICAgICAgICAgICAgICAgICAgICAgICAgICAgIC AgICAgICAgICAgICAgICAgICAgICAgICAgICAgICAg UTPbEZEhLFYqAS2FNRBsJWTpLOPwFHFbJDPyBXAbDJZePUXaOKDhKVGcWLMqYPQfUROoITQtBYAgWIXc LVNaCPDuXQHfTBSxKSGnAMMsDWFvWCTaVJSuWPKfMKIkKLTgCODrIELkSSDsMQAbPUFyTT6OYXCcBDCb ICAgICAgICAgICAgICAgICAgICAgICAgICAgICAgIC AgICAgICAgICAgICAgICAgICAgICAgICAgICAgICAgICAgICAgICAgICAgICAgICAgICAgICAgICAgIC XbMV8CWHVrDHXdDNTiKJXmCFPtITMvSEQvZIAgSSGzPGMgEJQzEYPoASRvCYVfQCCyPZXpGYMeUVRiVG AgICAgICAgICAgICAgICAgICAgICAgICAgICAgICAg WMKdSFIsJZXtZXQxJW6SCIDkMIWmCDGnDIZeXHYwRYBlBWIpPOVxXMPcZARbQAEyROLlGSYbLDDhCXXe VWTfIVQdXVCkSNQgRLViJGIdAITsQJVxUWGlJCXjUZPkYACrVTXvJEKcFIDlKCAuPAByRKBsHG3ZAXHg ICAgICAgICAgICAgICAgICAgICAgICAgICAgICAgIC AgICAgICAgICAgICAgICAgICAgICAgICAgICAgICAgICAgICAgICAgICAgICAgICAgICAgICAgICAgIC TvDXBePF0BQF66mCMpn5A2OGMkEL1fpec/Ar5GBNfyktJvnOTpSQ3IUdAhTO0wrg3YBsRvQL0ucm4LZV yIBiVrC3H6jDAlIHUzGWKDXaJnD04pSWlyVh02VNhs WZVeRdXrPIr5Ai2HBgEhR7tsFKXoIzR8YYTfFoA0CFZtMqOrKAmeDI8Lx9EdoRRyZHt+Ga0GIG4bl8Zz ZYtmNWLhDH8dht9VNXhIHfRuF6ExguP1WHKdCVTzJe7XZOHfVYDhoAVjTTUzGCANEsDdZ8RuyA49TQCY Cj4+EIrgjwXgIbzLLdDwUTNqg6MyFXk1XU0CHCHoAH g6iDMfP82kj5TzxAQcYpbqSkB1oQYcOW3sRYUeo4UgSEDZeRRbpETxPEWxXJXoWF4lHPPuPJN2HzL5CI DBIY1JTQLoWZLutDMbMEEnIMOWZO2ERXdfXAV4BJRlzvFfqTRhQCaoBW4AXEWotmHdOVleOTYJEPy+Pg 9IHL9gm3LcXPltGIYwUT5zpy4GQUnPUxKnB0O2oOAa G5I7BMjlIr4PBNFgKFZdVBymZVGJIQaqAK9QSN5rccR6WB2LnORvCNFjZXFzwRLrZTr9U64rvIQdPJnr MC2PDAL+Malvin+Ou1MGNGkMGKxGHOjTmLpXWWLGwKiB8KcK7LZp5UhM3NnNK81jYnawcKrDYjfPP5GWB6o YOLkTUKEPO1CcGMvlL0pfrTjUGUgQMTOKsTzQ99ozI IpNGCbXVY8JEGsFt8JALYjO3IihlGatOvwchPvAHYoTFCPGF6IKXjarfSmwQFkvKhuQR92aDgvTN5SXy 2AYpGoRT7jkc2YpJQcBt3EUHUgJc4GCOOpWQTeTPAqPGX5MRSsRaGuGPpcYCPaVACiOGY2MJAjSRZnHT 0RWsFsZPRjOWo6JfElOQLjPAJtkx0GCVIiTVFtJTG5 PPGlPBBjNCZlQYetVFZjHDOqTRL8VPZhPFAzQJ9MUrGrGOAdCUUmFgLeVPWrWVArup6TQATlFMFrUjPs XTHtKPIgQHKcTLnlHUHoQVG2CcB4SWDdPCFgWK4KEdAlBEJiCKJ8NgCmZMXySWMzva6XFJOfKJZlODFz UHIrUBSqVYYrZYnbUELxWYW5GhT1BGWmEDXlUP3RWf CdMYTpPMR8XBsyMWNrHCDfaw2PCIJoKQMbRsd6LwEaISEtVMZjWOqzDDCuCPZ2SVJ1YDRaYBThHB3HRw RbUVAcSYckNQamZDYoOPIldj1VKEXjHZCzRYBfQxBqRATvWXZlEVqtDJEbHQP9TuW3DXWuUFIhRD7MKz IaRNEdLRq0TWkpRHXoJQWwtj6GZPRpMMKqLRvfLSIz JIIqXMXuDFfjOQZsYLEaYmP8MNAiFJIkSA8FAyTqFACpOMG8AnXqNJMaKGYkdb5DRPGrIBUoMHA9XdKr IYMdECDqUVn3qaBipUAhGNi0FY3GA4OpwvRwZqNURx1Oo733ZLKjEYIlZn3QK6voOm3iEJGcOVDLVi2N JOt3HSE9XPW1EFUqDyE6LfN7LdE4CSg4AqRyOTA5Tx hiNWY+BKozQbheATV6QeW2CRXsRlwaYLwpXGohX9X8QZb4WGU3Cf0uJMIWJi4+DQpzdGFydHhyZWYNCj JhNMS7YFieGCEXYb0U ID Date Data Source [id number] 07/09/2020 07:52:32 AM [facility] Name Value Range Interpretation Code Description Data Zahraa rce(s) Supporting Document(s) Glucose [Mass/volume] in Capillary blood by Glucometer 127 mg/dL 70- 140 [facility] ID Date Data Source [id number] 07/09/2020 01:22:41 AM [facility] Name Value Range Interpretation Code Description Data Zahraa rce(s) Supporting Document(s) Leukocytes [#/volume] in Blood by Automated count 3.5 10*3/uL 4-10 L [facility] Erythrocytes [#/volume] in Blood by Automated count 3.37 10*6/uL 4.6- 6.1 [facility] Hemoglobin [Mass/volume] in Blood 10.5 g/dL 13.5-18 [facility] Hematocrit [Volume Fraction] of Blood by Automated count 31.3 % 4 1-53 L [facility] Erythrocyte mean corpuscular volume [Entitic volume] by Auto mated count 92.9 fL 80-96 [facility] Erythrocyte mean corpuscular hemoglobin [Entitic mass] by Automated count 31.3 pg 27-33 [facility] Erythrocyte mean corpuscular hemoglobin concentration [Mass/volume] by Automated count 33.7 g/dL 32.0-36.0 [facility] distribution width [Ratio] by Automated count 13.9 % 11.5-14.5 [facility] Platelets [#/volume] in Blood by Automated count 60 10*3/uL 150-400 L [facility] Differential cell count method - Blood [facility] Neutrophils/100 leukocytes in Blood by Automated count 52 % [facility] Lymphocytes/100 leukocytes in Blood by Automated count 35 % [facility] Monocytes/100 leukocytes in Blood by Automated count 9 % [facility] Eosinophils/100 leukocytes in Blood by Automated count 3 % [facility] Basophils/100 leukocytes in Blood by Automated count 1 % [facility] Neutrophils [#/volume] in Blood by Automated count 1.83 10*3/uL 1.8-7 .0 [facility] Lymphocytes [#/volume] in Blood by Automated count 1.21 10*3/uL 1.2-4 .0 [facility] Monocytes [#/volume] in Blood by Automated count 0.30 10*3/uL 0-0.8 [facility] Eosinophils [#/volume] in Blood by Automated count 0.11 10*3/uL 0-0.5 [facility] Basophils [#/volume] in Blood by Automated count 0.02 10*3/uL 0-0.2 [facility] Nucleated erythrocytes/100 leukocytes [Ratio] in Blood by Automated count 0 /100{WBCs} 0-0 [facility] ID Date Data Source [id number] 07/09/2020 02:34:04 AM [facility] Name Value Range Interpretation Code Description Data Zahraa rce(s) Supporting Document(s) Albumin [Mass/volume] in Serum or Plasma by Bromocresol green (BCG) dye binding method 3.4 g/dL 3.5-5.2 L [facility] Bilirubin.total [Mass/volume] in Serum or Plasma 0.4 mg/dL <1.2 [facility] Calcium [Mass/volume] in Serum or Plasma 7.6 mg/dL 8.6-10.0 L [facility] Chloride [Moles/volume] in Serum or Plasma 103 mmol/L 98-107 [facility] Creatinine [Mass/volume] in Serum or Plasma 0.78 mg/dL 0.70-1.20 [facility] Glucose [Mass/volume] in Serum or Plasma 134 mg/dL 70-140 [facility] Alkaline phosphatase [Enzymatic activity/volume] in Serum or Plasma 51 U/L 40-129 [facility] Potassium [Moles/volume] in Serum or Plasma 3.1 mmol/L 3.4-5.1 L [facility] Protein [Mass/volume] in Serum or Plasma 5.2 g/dL 6.4-8.3 L [facility] Sodium [Moles/volume] in Serum or Plasma 138 mmol/L 136-145 [facility] Aspartate aminotransferase [Enzymatic activity/volume] in Serum or Plasma 36 U/L <40 [facility] Urea nitrogen [Mass/volume] in Serum or Plasma 8 mg/dL 6-20 [facility] Osmolality of Serum or Plasma by calculation 287 mosm/kg 275-300 [facility] Creatinine/Urea nitrogen [Mass Ratio] in Serum or Plasma 10 [facility] Bicarbonate [Moles/volume] in Serum 25 mmol/L 22-29 [facility] Alanine aminotransferase [Enzymatic activity/volume] in Seru m or Plasma 27 U/L <41 [facility] Anion gap 3 in Serum or Plasma 10 mmol/L 8-15 [facility] Glomerular filtration rate/1.73 sq M pre dicted among non-blacks [Volume Rate/Area] in Serum or Plasma by Creatinine-based formula (MDRD) >6 0 [facility] Glomerular filtration rate/1.73 sq M pre dicted among blacks [Volume Rate/Area] in Serum or Plasma by Creatinine-based formula (MDRD) >60 [facility] ID Date Data Source [id number] 07/09/2020 02:34:04 AM [facility] Value Range Interpretation Code Description Data Zahraa rce(s) Supporting Document(s) Phosphate [Mass/volume] in Serum or Plasma 2.6 mg/dL 2.5-4.5 [facility] ID Date Data Source [id number] 07/09/2020 04:17:35 AM [facility] Value Range Interpretation Code Description Data Zahraa rce(s) Supporting Document(s) Magnesium [Mass/volume] in Serum or Plasma 1.4 mg/dL 1.6-2.6 L [facility] ID Date Data Source [id number] 07/08/2020 09:26:35 PM [facility] Value Range Interpretation Code Description Data Zahraa rce(s) Supporting Document(s) Glucose [Mass/volume] in Capillary blood by Glucometer 121 mg/dL 70- 140 [facility] ID Date Data Source [id number] 07/08/2020 05:00:26 PM [facility] Value Range Interpretation Code Description Data Zahraa rce(s) Supporting Document(s) Glucose [Mass/volume] in Capillary blood by Glucometer 115 mg/dL 70- 140 [facility] ID Date Data Source [id number] 07/08/2020 12:51:49 PM [facility] Name Value Range Interpretation Code Description Data Zahraa rce(s) Supporting Document(s) Glucose [Mass/volume] in Capillary blood by Glucometer 126 mg/dL 70- 140 [facility] ID Date Data Source [id number] 07/08/2020 11:08:16 AM [facility] Name Value Range Interpretation Code Description Data Zahraa rce(s) Supporting Document(s) Phosphate [Mass/volume] in Serum or Plasma 1.7 mg/dL 2.5-4.5 L [facility] ID Date Data Source [id number] 07/08/2020 09:18:52 AM [facility] Value Range Interpretation Code Description Data Zahraa rce(s) Supporting Document(s) [facility] LUJZMm2jQjHUFnFut3EdElJwVACdXF7affb9S7X0xRWiM4NhmUBwv7kpV0PnO6CzXVRqANDBXN9OaBWb jb2 [file] yz/7BV29Utsamv5ygs+Xh1ztduoQnfw4ZR+soqNLdjavnh5/Y910qni9kVpQAg5kuZiD2+senior care+LcI/3l [file] Agricultural Scientist+oX0yyXgNb/TmiJKms53T5u2P5Z+R3XG0yXE8qYm VrN7lw3w7iE/P9eK2sc5eWMIbMLPz9cliem5gdChp02QuK+kZ3/W91BZC5RXqtT55b5BezxuUUDx7xaO kBjy909uzIw+uP+miguel/3G9WtvxhvuWwhUw6o8RO/3F3mfBbGldrzq8t+2ngd9dPzWJ9jSZaMpSjcGcBLx [file] wfucyrzSd/1uqFwGO3rF30TkAA0N7oh+A+carbon brushes assembler/nXUdiHOdICSCESQITnWLryErMTfFptS1I07/6PsdHrt [file] e4EpKUTxRLTUMg8+XkV3IUU8yTCoRkq6PLy3TYueCLMKZc== ID Date Data Source [id number] 07/08/2020 08:46:36 AM [facility] Name Value Range Interpretation Code Description Data Zahraa rce(s) Supporting Document(s) Glucose [Mass/volume] in Capillary blood by Glucometer 116 mg/dL 70- 140 [facility] ID Date Data Source [id number] 07/08/2020 03:18:38 AM [facility] Name Value Range Interpretation Code Description Data Zahraa rce(s) Supporting Document(s) Leukocytes [#/volume] in Blood by Automated count 4.0 10*3/uL 4-10 [facility] Erythrocytes [#/volume] in Blood by Automated count 3.34 10*6/uL 4.6- 6.1 L [facility] Hemoglobin [Mass/volume] in Blood 10.4 g/dL 13.5-18 L [facility] Hematocrit [Volume Fraction] of Blood by Automated count 31.0 % 4 1-53 L [facility] Erythrocyte mean corpuscular volume [Entitic volume] by Auto mated count 92.9 fL 80-96 [facility] Erythrocyte mean corpuscular hemoglobin [Entitic mass] by Automated count 31.2 pg 27-33 [facility] Erythrocyte mean corpuscular hemoglobin concentration [Mass/volume] by Automated count 33.6 g/dL 32.0-[facility] width [Ratio] by Automated count 14.2 % 11.5-14.5 [facility] Platelets [#/volume] in Blood by Automated count 68 10*3/uL 150-400 L [facility] Differential cell count method - Blood [facility] Neutrophils/100 leukocytes in Blood by Automated count 57 % [facility] Lymphocytes/100 leukocytes in Blood by Automated count 31 % [facility] Monocytes/100 leukocytes in Blood by Automated count 8 % [facility] Eosinophils/100 leukocytes in Blood by Automated count 4 % [facility] Basophils/100 leukocytes in Blood by Automated count 0 % [facility] Neutrophils [#/volume] in Blood by Automated count 2.24 10*3/uL 1.8-7 .0 [facility] Lymphocytes [#/volume] in Blood by Automated count 1.25 10*3/uL 1.2-4 .0 [facility] Monocytes [#/volume] in Blood by Automated count 0.32 10*3/uL 0-0.8 [facility] Eosinophils [#/volume] in Blood by Automated count 0.16 10*3/uL 0-0.5 [facility] Basophils [#/volume] in Blood by Automated count 0.01 10*3/uL 0-0.2 [facility] Nucleated erythrocytes/100 leukocytes [Ratio] in Blood by Automated count 0 /100{WBCs} 0-0 [facility] ID Date Data Source [id number] 07/08/2020 03:42:20 AM [facility] Name Value Range Interpretation Code Description Data Zahraa rce(s) Supporting Document(s) Albumin [Mass/volume] in Serum or Plasma by Bromocresol green (BCG) dye binding method 3.4 g/dL 3.5-5.2 [facility] Bilirubin.total [Mass/volume] in Serum or Plasma 0.5 mg/dL <1.2 [facility] Calcium [Mass/volume] in Serum or Plasma 6.9 mg/dL 8.6-10.0 L [facility] Chloride [Moles/volume] in Serum or Plasma 102 mmol/L 98-107 [facility] Creatinine [Mass/volume] in Serum or Plasma 0.83 mg/dL 0.70-1.20 [facility] Glucose [Mass/volume] in Serum or Plasma 107 mg/dL 70-140 [facility] Alkaline phosphatase [Enzymatic activity/volume] in Serum or Plasma 52 U/L 40-129 [facility] Potassium [Moles/volume] in Serum or Plasma 3.4 mmol/L 3.4-5.1 [facility] Protein [Mass/volume] in Serum or Plasma 5.2 g/dL 6.4-8.3 L [facility] Sodium [Moles/volume] in Serum or Plasma 137 mmol/L 136-145 [facility] Aspartate aminotransferase [Enzymatic activity/volume] in Serum or Plasma 37 U/L <40 [facility] Urea nitrogen [Mass/volume] in Serum or Plasma 12 mg/dL 6-20 [facility] Osmolality of Serum or Plasma by calculation 284 mosm/kg 275-300 [facility] Creatinine/Urea nitrogen [Mass Ratio] in Serum or Plasma 14 [facility] Bicarbonate [Moles/volume] in Serum 28 mmol/L 22-29 [facility] Alanine aminotransferase [Enzymatic activity/volume] in Seru m or Plasma 22 U/L <41 [facility] Anion gap 3 in Serum or Plasma 7 mmol/L 8-15 L [facility] Glomerular filtration rate/1.73 sq M pre dicted among non-blacks [Volume Rate/Area] in Serum or Plasma by Creatinine-based formula (MDRD) >6 0 [facility] Glomerular filtration rate/1.73 sq M pre dicted among blacks [Volume Rate/Area] in Serum or Plasma by Creatinine-based formula (MDRD) >60 [facility] ID Date Data Source [id number] 07/08/2020 03:42:20 AM [facility] Value Range Interpretation Code Description Data Zahraa rce(s) Supporting Document(s) Phosphate [Mass/volume] in Serum or Plasma 1.6 mg/dL 2.5-4.5 L [facility] ID Date Data Source [id number] 07/08/2020 08:17:22 AM [facility] Value Range Interpretation Code Description Data Zahraa rce(s) Supporting Document(s) Magnesium [Mass/volume] in Serum or Plasma 1.6 mg/dL 1.6-2.6 [facility] ID Date Data Source [id number] 07/07/2020 09:59:53 PM [facility] Value Range Interpretation Code Description Data Zahraa rce(s) Supporting Document(s) Glucose [Mass/volume] in Capillary blood by Glucometer 185 mg/dL 70- 140 H [facility] ID Date Data Source [id number] 07/07/2020 07:24:23 PM EST [facility] Name Value Range Interpretation Code Description Data Zahraa rce(s) Supporting Document(s) Leukocytes [#/volume] in Blood by Automated count 4.9 10*3/uL 4-10 [facility] Erythrocytes [#/volume] in Blood by Automated count 3.39 10*6/uL 4.6- 6.1 L [facility] Hemoglobin [Mass/volume] in Blood 10.7 g/dL 13.5-18 L [facility] Hematocrit [Volume Fraction] of Blood by Automated count 31.4 % 4 1-53 L [facility] Erythrocyte mean corpuscular volume [Entitic volume] by Auto mated count 92.7 fL 80-96 [facility] Erythrocyte mean corpuscular hemoglobin [Entitic mass] by Automated count 31.7 pg 27-33 [facility] Erythrocyte mean corpuscular hemoglobin concentration [Mass/volume] by Automated count 34.2 g/dL 32.0-36.0 [facility] E[facility]th[facility] distribution width [Ratio] by Automated count 14.6 % 11.5-14.5 H [facility] Platelets [#/volume] in Blood by Automated count 71 10*3/uL 150-400 L [facility] Differential cell count method - Blood [facility] Neutrophils/100 leukocytes in Blood by Automated count 64 % [facility] Lymphocytes/100 leukocytes in Blood by Automated count 24 % [facility] Monocytes/100 leukocytes in Blood by Automated count 8 % [facility] Eosinophils/100 leukocytes in Blood by Automated count 4 % [facility] Basophils/100 leukocytes in Blood by Automated count 0 % [facility] Neutrophils [#/volume] in Blood by Automated count 3.10 10*3/uL 1.8-7 .0 [facility] Lymphocytes [#/volume] in Blood by Automated count 1.19 10*3/uL 1.2-4 .0 L [facility] Monocytes [#/volume] in Blood by Automated count 0.38 10*3/uL 0-0.8 [facility] Eosinophils [#/volume] in Blood by Automated count 0.18 10*3/uL 0-0.5 [facility] Basophils [#/volume] in Blood by Automated count 0.02 10*3/uL 0-0.2 [facility] Nucleated erythrocytes/100 leukocytes [Ratio] in Blood by Automated count 0 /100{WBCs} 0-0 [facility] ID Date Data Source [id number] 07/07/2020 07:55:59 PM [facility] Value Range Interpretation Code Description Data Zahraa rce(s) Supporting Document(s) Phosphate [Mass/volume] in Serum or Plasma 1.0 mg/dL 2.5-4.5 [facility] ID Date Data Source [id number] 07/07/2020 06:18:48 PM [facility] Value Range Interpretation Code Description Data Zahraa rce(s) Supporting Document(s) Magnesium [Mass/volume] in Serum or Plasma 1.7 mg/dL 1.6-2.6 [facility] ID Date Data Source [id number] 07/07/2020 06:18:48 PM [facility] Value Range Interpretation Code Description Data Zahraa rce(s) Supporting Document(s) Phosphate [Mass/volume] in Serum or Plasma 1.4 mg/dL 2.5-4.5 [facility] ID Date Data Source [id number] 07/07/2020 05:59:50 PM [facility] Value Range Interpretation Code Description Data Zahraa rce(s) Supporting Document(s) Glucose [Mass/volume] in Capillary blood by Glucometer 127 mg/dL 70- 140 [facility] ID Date Data Source [id number] 07/07/2020 04:49:10 PM [facility] Value Range Interpretation Code Description Data Zahraa rce(s) Supporting Document(s) [facility] JIWQYy4fDoAVHlSt25/YHYwrXVCjn8KaONrvIWc6PJdkMHItY4NhOPI9iW2pIUV2JSlWEwSgXuXiWXZ9 [facility] [file] ICAgICAgICAgICAgICAgICAgICAgICAgICAgICAgIC BjVGSxBADnOINwDOMkSNIgTUZhJBLpNUKqMIVfHJIbZWZuTMHpGTGcEOEgDFNzJBLfECAgOD6RGVKmVJ AgICAgICAgICAgICAgICAgICAgICAgICAgICAgICAgICAgICAgICAgICAgICAgICAgICAgICAgICAgIC AgICAgICAgICAgICAgICAgICAgICAgICAgICAgICAg UJBoJW5CSEHjDVFfAXQtEMIdCQSsWGTeNSRgFHQjOZIqNRYsTATsGRAbUEEjVYCxEBPvHWKiEXAxDBAl XJNiFIOmMRNdVDRvRNSkNMPeFJXqEEPmWRDdSHIlOMNpRHEvEJMcGIVpGULvFI8WRIMyTSOyJOSjVDBc ICAgICAgICAgICAgICAgICAgICAgICAgICAgICAgIC OaVBIjSHXpQVOlDYTbZMPnRXYlGXRsUSRyATThBPAbBBYnKFPfDOPhCGWsIVAhKEFvILIeDKLkXN2UXR AgICAgICAgICAgICAgICAgICAgICAgICAgICAgICAgICAgICAgICAgICAgICAgICAgICAgICAgICAgIC AgICAgICAgICAgICAgICAgICAgICAgICAgICAgICAg REDnPNMqOI2BOCCqQZFbYMNeFQAzESCtPTShJNAyWVBeURYmZYAzWNOkMUTuKRFoGCCbJDJrGAJiJNVb MZXqNWHyJCKvWDHmFDMmQGZhSBAvPKUuUAMdLUAbAOIcCEQpXSKvUQUoWJRtUJXnTD0RISAeTNLlVGRc ICAgICAgICAgICAgICAgICAgICAgICAgICAgICAgIC AgICAgICAgICAgICAgICAgICAgICAgICAgICAgICAgICAgICAgICAgICAgICAgICAgICAgICAgICAgIA 0KICAgICAgICAgICAgICAgICAgICAgICAgICAgICAgICAgICAgICAgICAgICAgICAgICAgICAgICAgIC AgICAgICAgICAgICAgICAgICAgICAgICAgICAgICAg DWMbPTRiBZFhKW5PMBOvAIQbRASvGBAfLAQmGDViORQvFGFtIUNdOMAxQYZyBKVaQBMfVWOsPVIdXDWx ECEqWSQoXYSsBPXtNHGzOLAaZTGdJXRsNTFvPFDnXCStPPZnXWGfTBYbKGWrHZPsUOIgME6XCZKhTHTw ICAgICAgICAgICAgICAgICAgICAgICAgICAgICAgIC AgICAgICAgICAgICAgICAgICAgICAgICAgICAgICAgICAgICAgICAgICAgICAgICAgICAgICAgICAgIC YoWL6IVQ18uYRof1J7WUHaEB2mxci/Xq0PMXoxsnCclSQoJM4BJkXmAL2xvx9HKwZcSQ6nac4WNOoILl PhC1B6zLGsGMFgNYPRSuLcW16pRAapMd00SCobEYQh SzByDRr5Ov1QYuLcL0loYSQjCjI4CRSeHeC4MNBkWwN1SSWfJhNxXMDcQYBgCSTpPGUMSSX8NMAmFzPq NTpsOC7As4TqwBN9DPs+Qp5PXT7jm4UfRAtoYYTnGC1nsp1OIRqJIaUeU4RphlY4RMTqRDIrTr0VZJQq JEKvoFIlPXXoRVVGScJzT5EusL63IPCPFw2+DQplbm QvHjaKCfSoRXBiq3ZfQMg5WZ2VALTgLCy8vZIgW55jg8YtdBOmDjgtBUGqcYgaxkMYDKXoQ2DvjkNdJH pZV1gmBDKjGYYlEa0mVMFtNMY8IcX2MJOOGC8JILQcWOColNUbUMVuRNQZVA6BAYwePBZ5GMVfgbIcfY DgCEyuXL8ZTDSnspNjRfkxTWYEGDi+Tm1JXO4gy1Ys BYquXCQbDV0pay1QOXcHJmTzG0P4gPMuP4T9FTndHp2BYOEjDZDjGdyhJNUKCEskXZ6VPZ0yetX8NZ4W rQYkJHScUEOajTOjQOp5L95wcAIdWIlnIG5CQES+Malvin+Qh3HRJYyQBPrMWKbFqDnIKQHYkIyY4LoX8HP s3OsB6JvGY88jUytwvWiLXthJY1TXW9gUONsGPFWJY 9ZtGSwvB4fqgKfNGEfPFWZLcMvU52shIIrKCFqPSW0OSRaFm9RGRWfX1EembYvsJmwmbYhWVSlCPZWFD 9HZAplulKogDNfbDikJC99nIqwLW9JMr4DCaAjSM3mcs9JoUYvVn1OYGZvKj0GBZNeHAQjNRUvBDA3UD GnMfNySXdtUYZxXZHcKZG3DSIaQVSrDW5PDhVmWYKg QnE4ADyjSJKdWCVujg3RAWXiKAQcWzVjOTOyGFWcULXoWGtsCTAmLPZmJIG4WVJwWWLqBH1CWwLyZFQf NQK5ZAxgNPLsCNOkox4FHMBjESUoYgtyBeNmTFDxEVObPJslNMBvHPC4Dha9DKEtQESoMV3OOqIxFJCm PMY7JcxzFCShAEJhsa9IQKUmEOOcZCEfBxZqJLPkIS ToUHybTACbQUHhNpBuJNNbOJNyTE1TYlKwRZFbYBV2YnqtPWSeXZTzfg2ZCVNpUWWdOwM9ENVcMPWyQU ByQLukAHDhQUG9IIetQPTyIIFeWH3WOsGfVSUqQWyyHSlzMSHhRFQgaz8HDJBlYHUgMXDyPUFaPJBpPY JkCUpmTORhCBN8OCJ5QLVyJPMgPY7KTuJcRIDnUuI9 SxPkMZKuRWAmbd8UGJUiHNJqCCs6NPXcMYXnXAOyJHfrVPBdLPTdJYX0YVKyOHRxAP4TWkMtORVcIgLo ROIkYWSvREFler5FEJEoBJSkFeIyXHQvBHBjFMSgFEobBSYwOWLhSZJgLVQuMVNgNB3HYxYuTWUuNgF2 FwJlFKYsESAhst5MOPCeKYOvLXV5VFQuYZDfZSJeUK rdCDIlDZH5YYzaBKVcMGCoUT6CRxHvZSYjWkV7VyJjGCAmTWPexa2THORqVPCbWGk6XqPhBXAqRVVeCL xyPIVxCCC9Wty5FLLvNNEgYH3XIfVtKRKqGiX8SGrmZSBnXSJnqy2FXJTfPGTyVzwiQKJoMTXyGTTbLU nmGKStBLT2HPE9QIYbMVXlMC8ZZzWrUGpfVSJRZwq8 UDqoG2c8SROhKw0SD1Nnl5VzIeTtFFSCPQhjAU3hsmBoAMMhLe9PH5iPNzb9S6O7LCY1VPRcY1Z5TCjs AOZaAMIqOXLfQZIiS5N9AT1hMJk2MkQgUBXpUxF7KTR8NzM1SfAqVYE9DqHeIcVrBum6FiEsKD2UMe6D BsH2IAH7aPEtLt6EWuceMHMNWvLiAY1WVSn= ID Date Data Source [id number] 07/07/2020 12:30:45 PM EST [facility] Name Value Range Interpretation Code Description Data Zahraa rce(s) Supporting Document(s) Glucose [Mass/volume] in Capillary blood by Glucometer 124 mg/dL 70- 140 [facility] ID Date Data Source [id number] 07/07/2020 12:30:45 PM [facility] Value Range Interpretation Code Description Data Zahraa rce(s) Supporting Document(s) Glucose [Mass/volume] in Capillary blood by Glucometer 11 mg/dL 70- 140 [facility] ID Date Data Source [id number] 07/07/2020 10:22:07 AM [facility] Value Range Interpretation Code Description Data Zahraa rce(s) Supporting Document(s) Potassium [Moles/volume] in Serum or Plasma 3.5 mmol/L 3.4-5.1 [facility] ID Date Data Source [id number] 07/07/2020 10:22:07 AM [facility] Value Range Interpretation Code Description Data Zahraa rce(s) Supporting Document(s) Phosphate [Mass/volume] in Serum or Plasma 0.9 mg/dL 2.5-4.5 [facility] Results called to and read back by PRASAD CAPONE RN [id number] ID Date Data Source [id number] 07/07/2020 08:24:21 AM [facility] Value Range Interpretation Code Description Data Zahraa rce(s) Supporting Document(s) Glucose [Mass/volume] in Capillary blood by Glucometer 126 mg/dL 70- 140 [facility] ID Date Data Source [id number] 07/07/2020 08:05:47 AM [facility] Value Range Interpretation Code Description Data Zahraa rce(s) Supporting Document(s) [facility] NWFGAq8vRxPTIxOr94/RPYaaCIBzh0HaVHdqODg8LQjzLWVqG5ZaDLM8tF3qUHK9AYwFEzSaAvDpHHF5 [facility] [file] ICAgICAgICAgICAgICAgICAgICAgICAgICAgICAgICAgICAgICAgICAgICAgICAgICAgICAgICAgICAg ICAgICAgICAgICAgICAgICAgICAgICAgICAgICAgICAgICANCiAgICAgICAgICAgICAgICAgICAgICAg ICAgICAgICAgICAgICAgICAgICAgICAgICAgICAgIC AgICAgICAgICAgICAgICAgICAgICAgICAgICAgICAgICAgICAgICAgICAgICANCiAgICAgICAgICAgIC AgICAgICAgICAgICAgICAgICAgICAgICAgICAgICAgICAgICAgICAgICAgICAgICAgICAgICAgICAgIC AgICAgICAgICAgICAgICAgICAgICAgICAgICANCiAg ICAgICAgICAgICAgICAgICAgICAgICAgICAgICAgICAgICAgICAgICAgICAgICAgICAgICAgICAgICAg ICAgICAgICAgICAgICAgICAgICAgICAgICAgICAgICAgICAgICANCiAgICAgICAgICAgICAgICAgICAg ICAgICAgICAgICAgICAgICAgICAgICAgICAgICAgIC AgICAgICAgICAgICAgICAgICAgICAgICAgICAgICAgICAgICAgICAgICAgICAgICANCiAgICAgICAgIC AgICAgICAgICAgICAgICAgICAgICAgICAgICAgICAgICAgICAgICAgICAgICAgICAgICAgICAgICAgIC AgICAgICAgICAgICAgICAgICAgICAgICAgICAgICAN CiAgICAgICAgICAgICAgICAgICAgICAgICAgICAgICAgICAgICAgICAgICAgICAgICAgICAgICAgICAg ICAgICAgICAgICAgICAgICAgICAgICAgICAgICAgICAgICAgICAgICANCiAgICAgICAgICAgICAgICAg ICAgICAgICAgICAgICAgICAgICAgICAgICAgICAgIC AgICAgICAgICAgICAgICAgICAgICAgICAgICAgICAgICAgICAgICAgICAgICAgICAgICANCiAgICAgIC AgICAgICAgICAgICAgICAgICAgICAgICAgICAgICAgICAgICAgICAgICAgICAgICAgICAgICAgICAgIC AgICAgICAgICAgICAgICAgICAgICAgICAgICAgICAg ICANCiAgICAgICAgICAgICAgICAgICAgICAgICAgICAgICAgICAgICAgICAgICAgICAgICAgICAgICAg ICAgICAgICAgICAgICAgICAgICAgICAgICAgICAgICAgICAgICAgICAgICANCjw/uDWfG0xexADkiuV5 D1ssQc0MKf8KXL8ss1ZuSLXbEBardxMaGcmVElKcWD YcIzzVTyh4ENcbJK2RsOQaP7YkH4VmXLdbZU9CBHMaIREuuWCkFWGjPAVhHvO6TWErZZuhMW1EyDZuNO mkMHArXFHyOoPdUYXsKIHbDXDaGOQyDRRPBCXrDTYaRhPdVBadAY9Dq3KggAO0YQa+Mc4VGE3xu9QfDR uoJkRhML7dtv7QAHoUAfHdR8LtfuD0CHV0JSFbNi0R KORjKTEpzZYrFNLbUQHXGoDmV2UvsB45LJWVWp6+NAtuyuTxGadWYnL7OAZvy0LzACh1LX0XZEWxRSn5 tBHqL06ur0NliXDbLkucHKJdnPRonCGQIIVniG2vwLuxLM2ZFgHkMCYkABQbGS8sCPLqYFY5HmW3VDXD KG8GBOArVHVmkENwXHYeDGUBXX2YEQzkXMG8ADJxxj LtaQPpZUdmWE0ZKQWzpzMzFfMpESHBBIr+Ea2MAL3gv1DcORznKNIcLT0umm5HCLwNBhOqP8P4kZLnF0 W6EAqbTw2LSEXbUFKeEnWnQTRRFKokDP5FQX1qbtR1PP9AtFCyGUNbLVEutDQjDAa1R72zwUFjMCppRB 0KICA+Malvin+Mq6CIKDlUWXlZQMyHeNwMFQAMfZhS6Cp X8HQa4GkS3GgDD71gIlcczCiQPmqVF2AWB1sAOMkSVGFHY8IdDEjpF9vsxPjFzXjNVOKQqDeM48ewXBg APWsALFfDQWzFj5PFRDnD9DqxpHszHplzjGbUKSeIXSJDG3QTCrbsaNnbGTjtUfvYY19oUmhCD9JZp0W XdOxEH1wbp1LhDNjPx0LMFFhVp8NYXWkTCObNSPsPI E1TWNnMaKvVKxtEJXlLSWpZFY7EUYvQSIdWO8FBfCwZTPaXcM9OlTtRULuAKLumo3QTORiMRTsGYAeMz EyPDGtJXBsNQovDIOxEQQyXDF0HJLiFGMdLS8ZDrOiTFRtTPI9CZGoRFZhVJLhfm8YAUFaHZPmOJGlKF RjIDWyCCAbAJhbDDBoTVG5PBv3WSGaVZKxPH4FVdQg ODRcHIinQBxhOTRbINFxxc6KYLRgJAUwDFutYzQvPGMkBRJdPCszMBKlERWfXKV2FEUvZTQqPH9RIwWu JGWdSDRoFQNxJEMbNBLuhg2CSDOvBZLxAAPtCMPwSLMzPRBmBWdfNCEaOGB4SjGrGDGjQBAgQN6GTpHi PHCjHGv0OKxuNDZrKEXhyf9ZZMSaTAGtMZt7ZoHbJP DwFZLcMJpqDXKtBUZjKYn1QAEuNXAnFQ6PJuFfDJVqSfDfMXirFPHaQCXffd4EOZOuYVIoCXQpAhQuVV CyDZCaDHqbGDOzFMPdBDL8DYDeSGImKI9TWyOaJQRwLcS7DMGvRKLsJGMdrf9WWCQoBTAkLdA9LaVsYT RtFBFpFTkuGJSkRBOiIzQfTYKmDDBwRG3LBtNyQYQz GeJ7HAJzBQBpLMZprb9GSISqGFXzHDZjGKSdNCHkMPHrHWryOFRrJCD5WtO0MNQfXLGiOP3QTiEwWWAi OvA3TIreEMDzAHGhlv5DNEDqRJQyZGH2YtXcPZTtTLEkESppCOIaCNM4SxNyHYYxIHDuJJ8YYtIlESDp VdMuUQkcTYRxAVUlsw2DCMAuEPJdXoJ7XKZsOVTqHY SxACyjNCLcLTE1YKHxGVXsPZTdSY8RQhIzXQNzErP7SNVpYQDyOAXtai0HCONaUEOhEBQ3BTMzNEQlSC EeWMxjEGOgRYU6GJLvUVRtBGAfKJ9RZxKiIWByOsj2MhtaRZGzAWEcga3TxTCfqKzydl3HULtBHh8VvZ mtNCL9MCkfHe4yeSGhICLfIOVTEi6OtfEmHPPvCGGP RYpeUWCnVXYmGEM8QHKsDbXoQbU3OcMoJWXwGLe1LtW7QHVfTKFhCsQ2ZOTpFZddJdL0XWH1BLSyXCEo YpDlPuEkRHN1MQQqRFO+SJ4zEYm+Wu0Lx2PranO6mwYdMBzdOHsiLw5SRFZDM5VEKi== ID Date Data Source [id number] 07/07/2020 08:05:32 AM EST [facility] Name Value Range Interpretation Code Description Data Zahraa e(s) Supporting Document(s) History and Physical [facility] VEPGNk5fAgHNXhYu57/CJGpeDFOpy8ItDBqtALi2NFogAEFoF8EaHTB3cR1vUVC7CToPNuGmQfObZAM1 lbm [file] AgICAgICAgICAgICAgICAgICAgICAgICAgICAgICAgICAgICAgICAgICAgICAgICAgICAgICAgICAgIC AgICAgICAgICAgICAgDQogICAgICAgICAgICAgICAg ICAgICAgICAgICAgICAgICAgICAgICAgICAgICAgICAgICAgICAgICAgICAgICAgICAgICAgICAgICAg ICAgICAgICAgICAgICAgICAgICAgICAgDQogICAgICAgICAgICAgICAgICAgICAgICAgICAgICAgICAg ICAgICAgICAgICAgICAgICAgICAgICAgICAgICAgIC AgICAgICAgICAgICAgICAgICAgICAgICAgICAgICAgICAgDQogICAgICAgICAgICAgICAgICAgICAgIC AgICAgICAgICAgICAgICAgICAgICAgICAgICAgICAgICAgICAgICAgICAgICAgICAgICAgICAgICAgIC AgICAgICAgICAgICAgICAgDQogICAgICAgICAgICAg ICAgICAgICAgICAgICAgICAgICAgICAgICAgICAgICAgICAgICAgICAgICAgICAgICAgICAgICAgICAg ICAgICAgICAgICAgICAgICAgICAgICAgICAgDQogICAgICAgICAgICAgICAgICAgICAgICAgICAgICAg ICAgICAgICAgICAgICAgICAgICAgICAgICAgICAgIC AgICAgICAgICAgICAgICAgICAgICAgICAgICAgICAgICAgICAgDQogICAgICAgICAgICAgICAgICAgIC AgICAgICAgICAgICAgICAgICAgICAgICAgICAgICAgICAgICAgICAgICAgICAgICAgICAgICAgICAgIC AgICAgICAgICAgICAgICAgICAgDQogICAgICAgICAg ICAgICAgICAgICAgICAgICAgICAgICAgICAgICAgICAgICAgICAgICAgICAgICAgICAgICAgICAgICAg ICAgICAgICAgICAgICAgICAgICAgICAgICAgICAgDQogICAgICAgICAgICAgICAgICAgICAgICAgICAg ICAgICAgICAgICAgICAgICAgICAgICAgICAgICAgIC AgICAgICAgICAgICAgICAgICAgICAgICAgICAgICAgICAgICAgICAgDQogICAgICAgICAgICAgICAgIC AgICAgICAgICAgICAgICAgICAgICAgICAgICAgICAgICAgICAgICAgICAgICAgICAgICAgICAgICAgIC ZmWTXgXJUrNYFyYCKyIIQxSAZgYWKzCXr7N7bcMZIf XIRyDU8cTGz0Pw2+SVuAZqWkYPU2ocBgmM1KNL1fx1QmESsrXRFfo5UiPYz8CV9EWWGjHJvyDX2BWWdu lf0XXNVlLYGrfTNJm0cmPqHxYZZ6NALzHpfmHC5GTTRgU5inosAtJFGiBXNKPVxbRSYSLL0DXjXkN9Za xC32MPSLQx7+JBenvpEgIzdKFmN3ZBOxw1YuEBx8CU 8BLBFqYounw0AdJjdkWZUGFVytPY0WDAD6WEK7CFJoUs6DLOKoY461ioHoTS7REs1NDeBdZC4vxm9GSh seFCAoSxgGDtu6QJwhMO2QbDMuAXrKQfLyCgfiXDScaKZrlRHZXTYxzN4ytVimTE8HIjSeOHJfNZJcTU 1nAYDzNQSpNaMfBETNGT8SCCUpUSIgjRWfKGLfMUAL TO6GUBvcAIV9WWIbgqXewRUxRDlyVO4DQFOgrsDcJyqnJFXIACm+Rd5JRD5pm8PpCHqhIMWoSY6ats8F YVqUJpDeN5O4fZKnA3H8PYbbCk6XNUEmDPBrIwEdJXFYWGdgST0JWT3cqcA8HP3RqERnDWOpFFZmoOHv VKc9M64xbTUbFXybQE8IGPV+Malvin+Ig5NBRFjQUAqQC WwOiVkITTLTnGdF2BlK0BCx1FoX5QqGF03fQjsegRtWOxhUM4MMH7qOEGjTPYULK0ItTQlaA7esqSxFu YaAFBGTkStZ20okDQvFXDhHVK6GYGlOs3RXUMqQ9JyiuLwwAvfypYjMVWkHHCGEL0GPWzcptJcxOGhkO gqPX57kBpbZB6TZx3LMeDwQA6kfn8RjZKrGi5FWENx XJ5RBQDuXUHkMVOzBOZ6OCVtWaHsJUcgMHBtNHGeJQF9GSGfJPZdLM7UDiDvSYWbJnRnBFXfEFJpGASz to0LYIWqIBSnDxC5UkTyVJGaZCJeROmjUWMaNORhAKM3EJSpIYPnLD8GBgRpOYUcGPQtDBUsQSRlREHh qf8WHNBzTESnGlO8FjDpVOJfEQKeLOafNZYfHAL2VP r3TXSvZABgLP1GIdDdXUZePSH7BIsvMKMvEYIcew9LSGAwJASwDsM7LkNuPBRvNUZcGMmxJIUlOAA1YQ XqTMJePNWqJA0WIlUdJAWpHHisShHxAIVqSQLpgl9NRDRxDAUjOPc2IzFkINZjQBIvRJaqSFLpEQJ8SN d8KESdZLWdUT8JQeSeEXZzJRdsGvBzGOZjHUOhqf2T JPUrABWsWLQvLdHwMFEtGCBhBZeyDKAwDAAbTQKlBWKcEDHfHD0URtUhHAVfRIR7TIIgIMYgTNAxao8L ADMwXOZsBuL4ORNkOJFtBYVjFSzbMAIiXPRnOIL6XKPbUJSvHL1QJfRoEAWcFjS3VaNyUDKjXMTkhj4Y YMShWFFzSuo2DUOqIPMiOTRuWFuxFCNhLPCkQDDfMD PeHIGqHX0ASrQzLPYlAvE1XWTsRQGhTWXvmg7PIEJbSYDyRNZ5SdPoUWYdPFVdORubGSOuZBY9ZxZiOI IwYTFdMU1XEeKsRONqQwJ3QVJuZHEsWEWttk3SZWXaTKBwQhD2IoLxMEFzDLEjILbyBMWiGZD1AbL0SM YaWIUbRE0BDdNrDUNcOhP1WPYuTELsOQEygr6MzBKo jVyozy6KQAxBHr6LcXufGMZbRXhcGt2nfIHkUWRcQLIJSz6LmiDnERQwMZAUNMpqODYvPPA3VkqaFSVu ECpnYMweJNBrQsR1XFuiVAUiZTBmCfj7HuO6NmydKgG8RkD0P7UoXQQzSbMaDkscJVWaVEF2T4UxAiH+ RQ6uFEv+Ag6Qh0JspmU5rnSzXJdrVzL4EW8VHXRSY4BEXq== ID Date Data Source [id number] 07/07/2020 06:55:55 AM EST [facility] Name Value Range Interpretation Code Description Data Zahraa rce(s) Supporting Document(s) Albumin [Mass/volume] in Serum or Plasma by Bromocresol green (BCG) dye binding method 3.8 g/[facility].5[facility] Bil[facility].total [Mass/volume] in Serum or Plasma 0.7 mg/dL <1.2 [facility] Calcium [Mass/volume] in Serum or Plasma 6.9 mg/dL 8.6-10.0 L [facility] Chloride [Moles/volume] in Serum or Plasma 100 mmol/L 98-107 [facility] Confirmed Creatinine [Mass/volume] in Serum or Plasma 0.96 mg/dL 0.70-1.20 [facility] Glucose [Mass/volume] in Serum or Plasma 140 mg/dL 70-140 [facility] Alkaline phosphatase [Enzymatic activity/volume] in Serum or Plasma 49 U/L 40-129 [facility] Potassium [Moles/volume] in Serum or Plasma 3.5 mmol/L 3.4-5.1 [facility] Protein [Mass/volume] in Serum or Plasma 5.5 g/dL 6.4-8.3 L [facility] Sodium [Moles/volume] in Serum or Plasma 137 mmol/L 136-145 [facility] Aspartate aminotransferase [Enzymatic activity/volume] in Serum or Plasma 41 U/L <40 H [facility] Urea nitrogen [Mass/volume] in Serum or Plasma 18 mg/dL 6-20 [facility] Osmolality of Serum or Plasma by calculation 288 mosm/kg 275-300 [facility] Creatinine/Urea nitrogen [Mass Ratio] in Serum or Plasma 19 [facility] Bicarbonate [Moles/volume] in Serum 24 mmol/L 22-29 [facility] Alanine aminotransferase [Enzymatic activity/volume] in Seru m or Plasma 25 U/L <41 [facility] Anion gap 3 in Serum or Plasma 13 mmol/L 8-15 [facility] Glomerular filtration rate/1.73 sq M pre dicted among non-blacks [Volume Rate/Area] in Serum or Plasma by Creatinine-based formula (MDRD) >6 0 [facility] Glomerular filtration rate/1.73 sq M pre dicted among blacks [Volume Rate/Area] in Serum or Plasma by Creatinine-based formula (MDRD) >60 [facility] ID Date Data Source [id number] 07/07/2020 08:45:11 AM EST [facility] Hospital Name Value Range Interpretation Code Description Data Zahraa rce(s) Supporting Document(s) Leukocytes [#/volume] in Blood by Automated count 5.1 10*3/uL 4-10 [facility] Erythrocytes [#/volume] in Blood by Automated count 3.26 10*6/uL 4.6- 6.1 L [facility] Hemoglobin [Mass/volume] in Blood 10.3 g/dL 13.5-18 L [facility] Hematocrit [Volume Fraction] of Blood by Automated count 29.8 % 4 1-53 L [facility] Erythrocyte mean corpuscular volume [Entitic volume] by Auto mated count 91.4 fL 80-96 [facility] Erythrocyte mean corpuscular hemoglobin [Entitic mass] by Automated count 31.6 pg 27-33 [facility] Erythrocyte mean corpuscular hemoglobin concentration [Mass/volume] by Automated count 34.5 g/dL 32.0-36.[facility] width [Ratio] by Automated count 14.7 % 11.5-14.5 H [facility] Platelets [#/volume] in Blood by Automated count 65 10*3/uL 150-400 L [facility] Differential cell count method - Blood [facility] Neutrophils/100 leukocytes in Blood by Automated count 76 % [facility] Lymphocytes/100 leukocytes in Blood by Automated count 14 % [facility] Monocytes/100 leukocytes in Blood by Automated count 7 % [facility] Eosinophils/100 leukocytes in Blood by Automated count 3 % [facility] Neutrophils [#/volume] in Blood by Automated count 3.91 10*3/uL 1.8-7 .0 [facility] Lymphocytes [#/volume] in Blood by Automated count 0.71 10*3/uL 1.2-4 .0 L [facility] Monocytes [#/volume] in Blood by Automated count 0.33 10*3/uL 0-0.8 [facility] Eosinophils [#/volume] in Blood by Automated count 0.14 10*3/uL 0-0.5 [facility] Poikilocytosis [Presence] in Blood by Light microscopy [facility] Stomatocytes [Presence] in Blood by Light microscopy [facility] ID Date Data Source [id number] 07/07/2020 07:00:15 AM [facility] Name Value Range Interpretation Code Description Data Zahraa rce(s) Supporting Document(s) Hemoglobin A1c/Hemoglobin.total in Blood by HPLC 5.5 % 4.0-6.0 [facility] (NOTE)<5.7% Average risk of diabetes (ADA)5.7-6.4% Increased risk of diabetes(ADA)>/= 6.5% Diagnostic for diabetes(ADA) Glucose mean value [Mass/volume] in Blood Estimated fr om glycated hemoglobin 111 mg/dL <126 [facility] ID Date Data Source [id number] 07/07/2020 12:45:32 AM [facility] Name Value Range Interpretation Code Description Data Zahraa rce(s) Supporting Document(s) Leukocytes [#/volume] in Blood by Automated count 5.2 10*3/uL 4-10 [facility] Erythrocytes [#/volume] in Blood by Automated count 3.20 10*6/uL 4.6- 6.1 L [facility] Hemoglobin [Mass/volume] in Blood 10.1 g/dL 13.5-18 L [facility] Hematocrit [Volume Fraction] of Blood by Automated count 29.2 % 4 1-53 L [facility] Erythrocyte mean corpuscular volume [Entitic volume] by Auto mated count 91.3 fL 80-96 [facility] Erythrocyte mean corpuscular hemoglobin [Entitic mass] by Automated count 31.5 pg 27-33 [facility] Erythrocyte mean corpuscular hemoglobin concentration [Mass/volume] by Automated count 34.5 g/dL 32.0-36.0 [facility] distribution width [Ratio] by Automated count 14.4 % 11.5-14.5 [facility] Platelets [#/volume] in Blood by Automated count 69 10*3/uL 150-400 L [facility] Differential cell count method - Blood [facility] Neutrophils/100 leukocytes in Blood by Automated count 73 % [facility] Lymphocytes/100 leukocytes in Blood by Automated count 17 % [facility] Monocytes/100 leukocytes in Blood by Automated count 9 % [facility] Eosinophils/100 leukocytes in Blood by Automated count 1 % [facility] Basophils/100 leukocytes in Blood by Automated count 0 % [facility] Neutrophils [#/volume] in Blood by Automated count 3.74 10*3/uL 1.8-7 .0 [facility] Lymphocytes [#/volume] in Blood by Automated count 0.89 10*3/uL 1.2-4 .0 L [facility] Monocytes [#/volume] in Blood by Automated count 0.46 10*3/uL 0-0.8 [facility] Eosinophils [#/volume] in Blood by Automated count 0.06 10*3/uL 0-0.5 [facility] Basophils [#/volume] in Blood by Automated count 0.01 10*3/uL 0-0.2 [facility] Nucleated erythrocytes/100 leukocytes [Ratio] in Blood by Automated count 0 /100{WBCs} 0-0 [facility] ID Date Data Source [id number] 07/06/2020 10:10:12 PM [facility] Value Range Interpretation Code Description Data Zahraa rce(s) Supporting Document(s) Glucose [Mass/volume] in Capillary blood by Glucometer 262 mg/dL 70- 140 H [facility] ID Date Data Source [id number] 07/06/2020 10:56:32 PM [facility] Name Value Range Interpretation Code Description Data Zahraa rce(s) Supporting Document(s) Magnesium [Mass/volume] in Serum or Plasma 2.0 mg/dL 1.6-2.6 [facility] ID Date Data Source [id number] 07/06/2020 10:56:32 PM [facility] Value Range Interpretation Code Description Data Zahraa rce(s) Supporting Document(s) Potassium [Moles/volume] in Serum or Plasma 3.6 mmol/L 3.4-5.1 [facility] ID Date Data Source [id number] 07/06/2020 11:17:32 PM [facility] Value Range Interpretation Code Description Data Zahraa rce(s) Supporting Document(s) Phosphate [Mass/volume] in Serum or Plasma 0.7 mg/dL 2.5-4.5 [facility] Results called to and read back by José Bhatti RN on 6I at 2316 by [id number] confirmed ID Date Data Source [id number] 07/06/2020 06:21:10 PM [facility] Value Range Interpretation Code Description Data Zahraa rce(s) Supporting Document(s) Lactate [Moles/volume] in Serum or Plasma 1.1 mmol/l 0.5-2.2 [facility] ID Date Data Source [id number] 07/06/2020 06:26:33 PM [facility] Hospital Name Value Range Interpretation Code Description Data Zahraa rce(s) Supporting Document(s) Leukocytes [#/volume] in Blood by Automated count 5.6 10*3/uL 4-10 [facility] Erythrocytes [#/volume] in Blood by Automated count 3.15 10*6/uL 4.6- 6.1 L [facility] Hemoglobin [Mass/volume] in Blood 10.0 g/dL 13.5-18 L [facility] Hematocrit [Volume Fraction] of Blood by Automated count 28.9 % 4 1-53 L [facility] Erythrocyte mean corpuscular volume [Entitic volume] by Auto mated count 91.9 fL 80-96 [facility] Erythrocyte mean corpuscular hemoglobin [Entitic mass] by Automated count 31.7 pg 27-33 [facility] Erythrocyte mean corpuscular hemoglobin concentration [Mass/volume] by Automated count 34.5 g/dL 32.0-36.0 [facility]th[facility] distribution width [Ratio] by Automated count 14.3 % 11.5-14.5 [facility] Platelets [#/volume] in Blood by Automated count 70 10*3/uL 150-400 L [facility] Differential cell count method - Blood [facility] Neutrophils/100 leukocytes in Blood by Automated count 77 % [facility] Lymphocytes/100 leukocytes in Blood by Automated count 12 % [facility] Monocytes/100 leukocytes in Blood by Automated count 11 % [facility] Eosinophils/100 leukocytes in Blood by Automated count 0 % [facility] Basophils/100 leukocytes in Blood by Automated count 0 % [facility] Neutrophils [#/volume] in Blood by Automated count 4.29 10*3/uL 1.8-7 .0 [facility] Lymphocytes [#/volume] in Blood by Automated count 0.68 10*3/uL 1.2-4 .0 L [facility] Monocytes [#/volume] in Blood by Automated count 0.59 10*3/uL 0-0.8 [facility] Eosinophils [#/volume] in Blood by Automated count 0.01 10*3/uL 0-0.5 [facility] Basophils [#/volume] in Blood by Automated count 0.00 10*3/uL 0-0.2 [facility] Nucleated erythrocytes/100 leukocytes [Ratio] in Blood by Automated count 0 /100{WBCs} 0-0 [facility] ID Date Data Source [id number] 07/06/2020 05:04:33 PM [facility] Name Value Range Interpretation Code Description Data Zahraa e(s) Supporting Document(s) History and Physical [facility] LSGZUh4uNlPKCtDk94/QTNiaCDRql6VlPDmuHAa3BFbiEBJiP7UyNIT6gM9jFDJ2RVoBUrVdRbNiMVY8 lbm [file] CiAgICAgICAgICAgICAgICAgICAgICAgICAgICAgICAgICAgICAgICAgICAgICAgICAgICAgICAgICAg ICAgICAgICAgICAgICAgICAgICAgICAgICAgICAgICAgICAgICAgICANCiAgICAgICAgICAgICAgICAg ICAgICAgICAgICAgICAgICAgICAgICAgICAgICAgIC AgICAgICAgICAgICAgICAgICAgICAgICAgICAgICAgICAgICAgICAgICAgICAgICAgICANCiAgICAgIC AgICAgICAgICAgICAgICAgICAgICAgICAgICAgICAgICAgICAgICAgICAgICAgICAgICAgICAgICAgIC AgICAgICAgICAgICAgICAgICAgICAgICAgICAgICAg ICANCiAgICAgICAgICAgICAgICAgICAgICAgICAgICAgICAgICAgICAgICAgICAgICAgICAgICAgICAg ICAgICAgICAgICAgICAgICAgICAgICAgICAgICAgICAgICAgICAgICAgICANCiAgICAgICAgICAgICAg ICAgICAgICAgICAgICAgICAgICAgICAgICAgICAgIC AgICAgICAgICAgICAgICAgICAgICAgICAgICAgICAgICAgICAgICAgICAgICAgICAgICAgICANCiAgIC AgICAgICAgICAgICAgICAgICAgICAgICAgICAgICAgICAgICAgICAgICAgICAgICAgICAgICAgICAgIC AgICAgICAgICAgICAgICAgICAgICAgICAgICAgICAg ICAgICANCiAgICAgICAgICAgICAgICAgICAgICAgICAgICAgICAgICAgICAgICAgICAgICAgICAgICAg ICAgICAgICAgICAgICAgICAgICAgICAgICAgICAgICAgICAgICAgICAgICAgICANCiAgICAgICAgICAg ICAgICAgICAgICAgICAgICAgICAgICAgICAgICAgIC AgICAgICAgICAgICAgICAgICAgICAgICAgICAgICAgICAgICAgICAgICAgICAgICAgICAgICAgICANCi AgICAgICAgICAgICAgICAgICAgICAgICAgICAgICAgICAgICAgICAgICAgICAgICAgICAgICAgICAgIC AgICAgICAgICAgICAgICAgICAgICAgICAgICAgICAg ICAgICAgICANCiAgICAgICAgICAgICAgICAgICAgICAgICAgICAgICAgICAgICAgICAgICAgICAgICAg ICAgICAgICAgICAgICAgICAgICAgICAgICAgICAgICAgICAgICAgICAgICAgICAgICANCjw/xAKmS6eb iJOtpxU0B8vkQp0DSp6LIO8sb1NmDJRbQHsqjaIxZm gBSoBqOUHfAwcAHxn2LVvnJA3IzVSuW5IuJ1MqUIblHK2QCHLdLKFduHMqXPIlQEMhRvW4ZPCfUUtaSB 3NwWZgHDquMVUhZTIbBiJvCDQuCAUjVLRfORQpCHNCRIMhQYIfQuMqSJvnHI9Zd2YwkHU6FXh+Pg0KZW 4hr3JdRVpuDqIxPP4rcw6XHJxJRhLvS6HhkeP8UTL3 OTCiOs8PCGDmHMYduAUbZKAuAMTCJvYyW9SjmA79GHQSGr4+OMpcwaLpTyeNRqH2EJXhv7VhZDh7UQ7W PBEeSUu9rDNtVSJBYFE5QEfzGpZbSkjbYCaqPSRVOUA3ALFyJnVsXkXtGYClSKiuPTXRGDmVKjVhM8Ui b6CkWjP6BPFoRjEbSUwvRTRiTrF7JJ33qOwmDO5SIC WsOXQdCJ80XXQsQTFnNc0SAm3EJpTyUM7qao3GLtGgDAMvNlnCVad2AKzdKK6XaVIjI9DaqCGwn9iBKr KdM8NBSCEvABPbIz8JUDAhAjCeFCMdIObhIK1gTADvVUAVhFvftjT8OL3FMB2naoAgEU1LYaFrYx0aEk 5KWcUfV8TaF4HwYADuQGMSZYsaGX0LUTaeNM3xVG4T n0UTtHShmZ4xtm9XEWHtRBOiLykmjc9WQocsF8B0qKzlXXLlKxKxWIEALHqxNP8YOCPdYPJ1NIReAyKt IYTWPqUuK06qQS0CU0Kji06xZxC2WIPbDuAiYPupOW60mLlfcmWqeWBfsOqpJN9MJg4+DQplbmRvYmoN ZnfhETDZKhXeWaHFVzGpHAFnMNMwCLRmHiZ5BpVcDv 5SXLWxIBJiFNIiUxUsDTKtGDWrCDuySDRyEWEdCWK1FSWrDUKcGS7RKrEgZADbAdO3XNTvBOMoUHWrub 5IINWwQZBlPPW4RyNjSNZdQFZiUVdxTKBoLPW1VBY5ZQTcQMMzGN5LRhSbZVXsBPSxXpsnOIYqLMPguh 3CEOThLOHcYxf9UCNyWTYiTSBcPRzaOAHhGHB9YDv6 TLAhLQViEV5FFpBvZSCaHVS9VYBfUSIqOMGzpn2YOZOoFBKaYEu5DAAuNZWkRNIjCIimOEOtTQI5Wjxf CPFsMWMbWS0VAvCxGXZuBMK4PHpmUZMhRCQksy0FJVHgIUEzADu4TKGlBHSrJOExKDlaVINpIOC2IMm8 KEMxPRYfLO1ICrRoWBHaTIcsBBTrJKKpIIChms4EMO TgIXVqLmO3YiVaLSVzOQKuGYroWMJuXUL6ROF7ULDeOVPcJQ1GGlOlBQCrVPp4VZJbRYEbTYSqxe3LDO WbKJEzITR7NgCtMJUzXXLaANsoQDCyAIH7YRa1VCEiUYDzEQ1KAeCxIMEbNQk8YSShMXOuUIVmho9ARP NoVLAkHIV9MoKyUZBuQCUcODnfGPJtTOTdCpA5AEOo UACaIR0YSeXwSIAeToZ7FUDzQIRlXWCweh5HMWOeLUHyXVptJJEiBVXtPNEtCXfyCSIcGJMqVJX2TKZr ZDPlOR2HAwHcLIGvUjArGpIfYBZrSEKfog2CRCWcDDNfIjTaTuGtLWAuPIUgDQqvNCOgINXwVXG5EAVk KBXlPJ8LMvPuERLgDqO9YMUkORQyJXVnhq1OLRUpRW NpXrmhOzHkDOZwLTPnEWgnHDBbQZA8MoU7ZFXvKPIwKU0OVgMgDNMgRqX3JiubGMGmIERery8FWTWiRL ZhILbqREOsOJBtYLRgCCmePRAuDJZ8DXG7LPLbKIErBT2GYmUuQXohKPUKJdb8NTgcV2s0KYYzJi4QV5 Dfa8LgDqYsPHVZZKvvUO1krbTjIKRnRt9FC5bUIeyq AJAeZ4YdSJHwYwPeY3RwOLNxJFUkLWJeNMSkKiWeNb2nXDP1FOFmZWYlTGH7LOW1UDJ6LsNwGSG3NRO4 WDRaQNR2AsAkOQ3QZh8VZdV4MIS5fLZnGn8AYvOsGygPLqEeWJ2OZWd= ID Date Data Source [id number] 07/06/2020 04:38:18 PM [facility] Hospital Name Value Range Interpretation Code Description Data Zahraa rce(s) Supporting Document(s) Consultation [facility] NXFOHr1mMsDCDaMu82/WPStpCGWra6HrOHfeLKk8LIydRRKjA2IiHNB1wH1pBGP4BKmZLlKrXyHmSPV0 lbm [file] ICAgICAgICAgICAgICAgICAgICAgICAgICAgICAgICAgICAgICAgICAgICAgICAgICAgICAgICAgICAg GGMzYPXzXVLwRWIlSVUzWA0XBYYdEUGhSNVtWOTeQQ AgICAgICAgICAgICAgICAgICAgICAgICAgICAgICAgICAgICAgICAgICAgICAgICAgICAgICAgICAgIC IgFJQxCOJfCVItSSKeELZaADDnADAhVOLcJQ2VKTNpFIVtNDOvQJPvPWXqBVPmTTUjAZEhYCUwCUMuCN AgICAgICAgICAgICAgICAgICAgICAgICAgICAgICAg GGDzAVDuNBLpWLFdUGOdSYOdFYGnXLKySAKwPQMvOTKeNLBtOB5EVUOwURYuIHBbVEUgATKkYMYlNDRo ICAgICAgICAgICAgICAgICAgICAgICAgICAgICAgICAgICAgICAgICAgICAgICAgICAgICAgICAgICAg EOWuRGGuAWTgVJYnBUDuOGZgKY9SAMVgLUJxNIGkFR AgICAgICAgICAgICAgICAgICAgICAgICAgICAgICAgICAgICAgICAgICAgICAgICAgICAgICAgICAgIC SiYIAbNDCcDGKwOGCxXQRyEEPyBAPeXSUbESEuIZ5THZXlXKNfANTgKSQgGEZbMELcWSNqTUVzACEkFZ AgICAgICAgICAgICAgICAgICAgICAgICAgICAgICAg GZNmKUAsJJAaKVEuXMFkDSSgDEKhKCWtXOXbRCIgVNHgWUTsUEKeVP8AWECnILMwZGVaGMImYPCkQOId ICAgICAgICAgICAgICAgICAgICAgICAgICAgICAgICAgICAgICAgICAgICAgICAgICAgICAgICAgICAg JCMtUJXtNLFfKTNzDSHxRCKiCZAnOP3UMTRfXLYsXB AgICAgICAgICAgICAgICAgICAgICAgICAgICAgICAgICAgICAgICAgICAgICAgICAgICAgICAgICAgIC WyGEPaNZXqLLErLGVdZKIqPXCcVSPiIHRwSFSzEXGwGZ7GLNPmHPQtLAGiRKItCOLqIAGnZYLbYPTxPQ AgICAgICAgICAgICAgICAgICAgICAgICAgICAgICAg QZAiQLKgSKRyHKLoHHSzEFAoPYWjXINwABZiBQVpOWFdCDKtOOFbDSCpGJ1WBGKnJNEvRAIaNXBnBVOt ICAgICAgICAgICAgICAgICAgICAgICAgICAgICAgICAgICAgICAgICAgICAgICAgICAgICAgICAgICAg PZKbALXbZDHkVSVxEIWvOUPmAIQfHREfMX7ZMX10nX Pau2J6QYMdCW1cynw/Wb3EHRcmrxJqxIHbGZ1LNzEfTW9zcg5YHeThXM5ofw4DXJoUPhWxL2R4bKQwIZ NlVGHMHbXeC81rLXdlIp73UJfsWCMeDwWpBMe6Hr9WNlPvU0dyOVCtMoK7UVJbNwYkWXurJJ7Ta1EjqD AxDQo+Ki3IQV6kp8OsHPxxUNRvYQ5fwd5HHGwEAqDh I5OjnxU6VMB5OWPpBm9HDLXcKDWhhPGjEUBiSUKZRxQuA8FtiL00GHPZTe2+JLclomBrKsaNAkA4YHLr f5KlLEb8HQ5EFGZtCNd8cLQvA52sk0FwsVYoSufiVDRqnRehtqAGLVKnJ2TvljEsVIrEE5pmPHTkOBFz WG0bFYXyURM9UfE2KKMHCK5QKAEvOFAucUOnGJGvNR KDNC6MKVqoDUH6KSVcxxPnbAMrDDigGI0OIMGccfKkGLEvTMCFJMc+Ug1LCM6ul0UlJTkuVdZfKM1jmq 4AFPgKQpTbM5R3rWKaY1O1TVvxRc3TYEHfXUAjLCHjRBISQDihMZ6VAD3gauZ1QU2VdKNyGQPxFPQgaM QzOTf5E28cyNCyLWioUP6PBPS+Malvin+Wq0MSCLaYWYw JBJwRiWcPHVVFmAyE1VyA8QQf8DpV7QbTT16rMccerNiXBliSE2STE1nBGDsVKVHVK6ZeOPzuI0emuYs VOHfSKFZGsAoB59kfTJdRXNnUGGaAIErEr8NYEJeV4JmerJvuMnwwkTwCCFbPUHQPC5IBUrqveIqlKZe lXlzZN86pJioUU2IPj2ASjUtOD2jkg9TrEBxCc5QQH PyUv3QAQVlIDTgBPBkHKL9SVWfSiUgCWmdBGYxWEHdDTG5CLHpEJRfEH7CEkJhZPRoVEY5MavdMJAaZM Ukhy4ZBAInNFFfEvJ3KIEaPCLhKPEnQGbpCTQxYBDqJTV7JGMvBCEzOS0TAaAeYDBbUBD2RJxvDLOkHF Puru6WGMXlKGHqUEpdRjFnXCIyFGNuLDtcEWTvFFKu IncqMAQlXKHsQZ9OOiEbYRStFMJ4RnhhOYJoAMBbvg7JJGTjTKDcFrO0GCGdIZGtCITgQBhsTSFbCCL3 EOX6MDSkNGMpSO7VJrGcQDCtVWPmWDzrOFEhGAPaen9MSIJfYDHbGXFoHNHtODJiMYNzQJxqCVToKEY5 TYN9CNKzRYEqIY3BMmFeTHZyWVQzIAiqHXAaITPumx 0BMBIbSODcPeLhOITvOIOpUAUsZUrgHRVcWUT5KDW4JXXkCHZxTH9UGuWwFGbkFMAFZgx2XZreP7a4LT AaLb1DG9Ggn4YeKIZxXYJMEMsrZD1qqqCgXMKzXq7CE3eUOkoeKlY8AzKiTiE5Hap4RCMnZQNxTesaVk MgIGPsPxr3We5vZJJfGtJbPCIyIIXtShlcWNKtXkTh L7PtIuZ2FBMdVum3HwGhAL6LSs3WKsW4KJQ4bZCfZg6HSsljVR2JXUNWB5NHHb== ID Date Data Source [id number] 07/10/2020 08:51:25 AM [facility] Service Cmnt XXX-Imp : NoneO+P Stl Conc [...] Name Value Range Interpretation Code Description [facility]s) ID Date Data Source [id number] 07/07/2020 10:33:56 AM [facility] Cmnt XXX-Imp : NoneGI Panel : PC [...] rce(s) Supporting Document(s) ID Date Data Source [id number] 07/06/2020 02:28:33 PM [facility] Name Value Range Interpretation Code Description Data Zahraa rce(s) Supporting Document(s) Progress Note [facility] POXFIy4oKoVCChTz23/OIKncSXLtr8EgSBaxBKj1QRcxLPVfE5MgBYS7cI2lXIE9VUlKPhIcHcPbKVX4 lbm [file] F7VxzbYgqpgVHAMij/Epcd1P1u4dzYclVn+OeCx/berry picker [file] [id number]+Za9Yb8MubmJ1fkZdYCmfIWsyFt2MCIJWC8AXNl== ID Date Data Source [id number] 07/06/2020 11:51:18 AM [facility] Name Value Range Interpretation Code Description Data Zahraa e(s) Supporting Document(s) Leukocytes [#/volume] in Blood by Automated count 6.1 10*3/uL 4-10 [facility] Erythrocytes [#/volume] in Blood by Automated count 3.13 10*6/uL 4.6- 6.1 L [facility] Hemoglobin [Mass/volume] in Blood 9.9 g/dL 13.5-18 L [facility] Hematocrit [Volume Fraction] of Blood by Automated count 28.7 % 4 1-53 L [facility] Erythrocyte mean corpuscular volume [Entitic volume] by Auto mated count 91.4 fL 80-96 [facility] Erythrocyte mean corpuscular hemoglobin [Entitic mass] by Automated count 31.7 pg 27-33 [facility] Erythrocyte mean corpuscular hemoglobin concentration [Mass/volume] by Automated count 34.6 g/dL 32.0-36.0 [facility] width [Ratio] by Automated count 14.7 % 11.5-14.5 H [facility] Platelets [#/volume] in Blood by Automated count 71 10*3/uL 150-400 L [facility] Differential cell count method - Blood [facility] Neutrophils/100 leukocytes in Blood by Automated count 80 % [facility] Lymphocytes/100 leukocytes in Blood by Automated count 9 % [facility] Monocytes/100 leukocytes in Blood by Automated count 11 % [facility] Eosinophils/100 leukocytes in Blood by Automated count 0 % [facility] Basophils/100 leukocytes in Blood by Automated count 0 % [facility] Neutrophils [#/volume] in Blood by Automated count 4.88 10*3/uL 1.8-7 .0 [facility] Lymphocytes [#/volume] in Blood by Automated count 0.55 10*3/uL 1.2-4 .0 L [facility] Monocytes [#/volume] in Blood by Automated count 0.64 10*3/uL 0-0.8 [facility] Eosinophils [#/volume] in Blood by Automated count 0.00 10*3/uL 0-0.5 [facility] Basophils [#/volume] in Blood by Automated count 0.00 10*3/uL 0-0.2 [facility] Nucleated erythrocytes/100 leukocytes [Ratio] in Blood by Automated count 0 /100{WBCs} 0-0 [facility] ID Date Data Source [id number] 07/06/2020 12:13:46 PM [facility] Name Value Range Interpretation Code Description Data Zahraa rce(s) Supporting Document(s) Bicarbonate [Moles/volume] in Serum 16 mmol/L 22-29 L [facility] Chloride [Moles/volume] in Serum or Plasma 89 mmol/L 98-107 L [facility] Creatinine [Mass/volume] in Serum or Plasma 1.38 mg/dL 0.70-1.20 H [facility] Glucose [Mass/volume] in Serum or Plasma 179 mg/dL 70-140 H [facility] Potassium [Moles/volume] in Serum or Plasma 3.4 mmol/L 3.4-5.1 [facility] Sodium [Moles/volume] in Serum or Plasma 130 mmol/L 136-145 L [facility] Urea nitrogen [Mass/volume] in Serum or Plasma 35 mg/dL 6-20 H [facility] Anion gap 3 in Serum or Plasma 25 mmol/L 8-15 H [facility] Osmolality of Serum or Plasma by calculation 283 mosm/kg 275-300 [facility] Creatinine/Urea nitrogen [Mass Ratio] in Serum or Plasma 25 [facility] Calcium [Mass/volume] in Serum or Plasma 7.1 mg/dL 8.6-10.0 L [facility] Glomerular filtration rate/1.73 sq M pre dicted among non-blacks [Volume Rate/Area] in Serum or Plasma by Creatinine-based formula (MDRD) 56 mL/min/1.73m2 >60 L [facility] Glomerular filtration rate/1.73 sq M pre dicted among blacks [Volume Rate/Area] in Serum or Plasma by Creatinine-based formula (MDRD) 65 mL/min/1.73m2 >60 [facility] ID Date Data Source [id number] 07/06/2020 12:13:46 PM [facility] Value Range Interpretation Code Description Data Zahraa rce(s) Supporting Document(s) Magnesium [Mass/volume] in Serum or Plasma 2.0 mg/dL 1.6-2.6 [facility] ID Date Data Source [id number] 07/06/2020 12:13:46 PM [facility] Value Range Interpretation Code Description Data Zahraa rce(s) Supporting Document(s) Phosphate [Mass/volume] in Serum or Plasma 1.7 mg/dL 2.5-4.5 [facility] ID Date Data Source [id number] 07/06/2020 12:09:46 PM [facility] Value Range Interpretation Code Description Data Zahraa rce(s) Supporting Document(s) Lactate [Moles/volume] in Serum or Plasma 1.4 mmol/l 0.5-2.2 [facility] ID Date Data Source [id number] 07/06/2020 08:35:59 AM [facility] Value Range Interpretation Code Description Data Zahraa rce(s) Supporting Document(s) Leukocytes [#/volume] in Blood by Automated count 8.8 10*3/uL 4-10 [facility] Erythrocytes [#/volume] in Blood by Automated count 3.85 10*6/uL 4.6- 6.1 L [facility] Hemoglobin [Mass/volume] in Blood 12.1 g/dL 13.5-18 L [facility] Hematocrit [Volume Fraction] of Blood by Automated count 35.2 % 4 1-53 L [facility] Erythrocyte mean corpuscular volume [Entitic volume] by Auto mated count 91.3 fL 80-96 [facility] Erythrocyte mean corpuscular hemoglobin [Entitic mass] by Automated count 31.5 pg 27-33 [facility] Erythrocyte mean corpuscular hemoglobin concentration [Mass/volume] by Automated count 34.4 g/[facility] width [Ratio] by Automated count 14.4 % 11.5-14.5 [facility] Platelets [#/volume] in Blood by Automated count 88 10*3/uL 150-400 L [facility] Differential cell count method - Blood [facility] Neutrophils/100 leukocytes in Blood by Automated count 82 % [facility] Lymphocytes/100 leukocytes in Blood by Automated count 6 % [facility] Monocytes/100 leukocytes in Blood by Automated count 12 % [facility] Eosinophils/100 leukocytes in Blood by Automated count 0 % [facility] Basophils/100 leukocytes in Blood by Automated count 0 % [facility] [facility] Neut[facility]ils [#/volume] in Blood by Automated count 7.14 10*3/uL 1.8-7 .0 H [facility] Lymphocytes [#/volume] in Blood by Automated count 0.55 10*3/uL 1.2-4 .0 L [facility] Monocytes [#/volume] in Blood by Automated count 1.08 10*3/uL 0-0.8 H [facility] Eosinophils [#/volume] in Blood by Automated count 0.00 10*3/uL 0-0.5 [facility] Basophils [#/volume] in Blood by Automated count 0.01 10*3/uL 0-0.2 [facility] Nucleated erythrocytes/100 leukocytes [Ratio] in Blood by Automated count 0 /100{WBCs} 0-0 [facility] ID Date Data Source [id number] 07/06/2020 06:55:00 AM [facility] Patient: JANICE VERMA Observation Report - [facility], [facility].VisitID: [id number] [place] [address] [phone], MRegistration Date/Time: 07/05/2020 20:13 Weight:90.7 kg (S). [...] history. (Electronically signed by Edita Jasmine, PBurke 07/06/2020 06:44) Name Value Range Interpretation Code Description Data Zahraa rce(s) Supporting Document(s) ID Date Data Source [id number] 07/06/2020 06:54:[address] [facility] [address] SCAN OF THE ABDOMEN AND [...] rce(s) Supporting Document(s) ID Date Data Source [id number] 07/06/2020 06:44:00 AM EST [facility] [...] rce(s) Supporting Document(s) ID Date Data Source [id number] 07/06/2020 05:10:14 AM EST [facility] US ABDOMEN COMPLETE [id number] RESULTInt erpreted by:RYDER PatelROCEDURE INFORMATION: Exam: US [...] rce(s) Supporting Document(s) ID Date Data Source [id number] 07/06/2020 02:29:00 PM [facility] Name Value Range Interpretation Code Description Data Zahraa rce(s) Supporting Document(s) Color of Urine [facility] Clarity of Urine [facility] Specific gravity of Urine by Refractometry automated 1.016 1.003 -1.030 [facility] pH of Urine by Automated test strip 5.0 5.0-8.0 [facility] Protein [Mass/volume] in Urine by Automated test strip 30 mg/dL Neg [facility] Glucose [Mass/volume] in Urine by Automated test strip Neg [facility] Ketones [Mass/volume] in Urine by Automated test strip 80 mg/dL Neg [facility] Bilirubin.total [Presence] in Urine by Automated test strip Negative [facility] Hemoglobin [Presence] in Urine by Automated test strip [facility] Leukocyte esterase [Presence] in Urine by Automated test strip Negative [facility] Nitrite [Presence] in Urine by Automated test strip Negati [facility] Leukocytes [#/area] in Urine sediment by Automated count 0 -5 [facility] Erythrocytes [#/area] in Urine sediment by Automated count 1 /HPF 0-3 [facility] Epithelial cells.squamous [#/area] in Urine sediment by Auto mated count 1 /HPF None [facility] Mucus [#/area] in Urine sediment by Microscopy low power field None [facility] ID Date Data Source [id number] 07/06/2020 03:42:08 PM [facility] Name Value Range Interpretation Code Description Data Zahraa rce(s) Supporting Document(s) Creatinine [Mass/volume] in Urine 56.0 mg/dl [facility] ID Date Data Source [id number] 07/06/2020 03:42:08 PM [facility] Value Range Interpretation Code Description Data Zahraa rce(s) Supporting Document(s) Amphetamine [Presence] in Urine by Screen method Negative [facility] Benzodiazepines [Presence] in Urine by Screen method Negat [facility] Cannabinoids [Presence] in Urine by Screen method Negative [facility] Benzoylecgonine [Presence] in Urine by Screen method Negat [facility] Methadone [Presence] in Urine by Screen method Negative [facility] Opiates [Presence] in Urine by Screen method Negative [facility] Oxycodone [Presence] in Urine by Screen method Negative [facility] (NOTE)Positive results are presumptive a nd unconfirmed;confirmatorytesting can be ordered at the [facility] at [address] [place] [address] at [facility]94 within 5 days of collection. Fentanyl+Norfentanyl [Presence] in Urine by Screen method Negative [facility] (NOTE)Positive results are presumptive a nd unconfirmed;confirmatorytesting can be ordered at the [facility] at [address] [place] [address] at [facility] within 5 days of collection. Service comment [facility] Results below the indicated cutoff (ng/m L), are reported as"Negative." Note: for medical purposes only; not valid for legalor employment testing. ID Date Data Source [id number] 07/06/2020 03:42:08 PM [facility] Value Range Interpretation Code Description Data Zahraa rce(s) Supporting Document(s) Sodium [Moles/volume] in Urine 40 mmol/L [facility] ID Date Data Source [id number] 07/06/2020 05:50:54 AM [facility] Value Range Interpretation Code Description Data Zahraa rce(s) Supporting Document(s) Prothrombin time (PT) 15.5 s 12.5-14.9 H [facility] INR in Platelet poor plasma by Coagulation assay 1.21 [facility] Routine intensity oral anticoagulation I NR is typically 2.0-3.0. Target INR must be clinically individualized. ID Date Data Source [id number] 07/06/2020 05:50:54 AM [facility] Value Range Interpretation Code Description Data Zahraa rce(s) Supporting Document(s) aPTT in Platelet poor plasma by Coagulation assay 29.7 s 24.0-33. 0 [facility] ID Date Data Source [id number] 07/06/2020 05:54:53 AM [facility] Name Value Range Interpretation Code Description Data Zahraa rce(s) Supporting Document(s) Ethanol [Mass/volume] in Serum or Plasma 0.06 g/dl Negative A [facility] ID Date Data Source [id number] 07/06/2020 06:15:03 AM [facility] Name Value Range Interpretation Code Description Data Zahraa rce(s) Supporting Document(s) Albumin [Mass/volume] in Serum or Plasma by Bromocresol green (BCG) dye binding method 3.3 g/dL 3.5-5.2 [facility] Bilirubin.total [Mass/volume] in Serum or Plasma 0.6 mg/dL <1.2 [facility] Calcium [Mass/volume] in Serum or Plasma 6.7 mg/dL 8.6-10.0 L [facility] Chloride [Moles/volume] in Serum or Plasma 88 mmol/L 98-107 L [facility] Confirmed Creatinine [Mass/volume] in Serum or Plasma 1.39 mg/dL 0.70-1.20 H [facility] Glucose [Mass/volume] in Serum or Plasma 145 mg/dL 70-140 H [facility] Alkaline phosphatase [Enzymatic activity/volume] in Serum or Plasma 66 U/L 40-129 [facility] Potassium [Moles/volume] in Serum or Plasma 3.2 mmol/L 3.4-5.1 L [facility] Confirmed Protein [Mass/volume] in Serum or Plasma 5.7 g/dL 6.4-8.3 L [facility] Sodium [Moles/volume] in Serum or Plasma 131 mmol/L 136-145 L [facility] Confirmed Aspartate aminotransferase [Enzymatic activity/volume] in Serum or Plasma 74 U/L <40 H [facility] Urea nitrogen [Mass/volume] in Serum or Plasma 41 mg/dL 6-20 H [facility] Osmolality of Serum or Plasma by calculation 286 mosm/kg 275-300 [facility] Confirmed Creatinine/Urea nitrogen [Mass Ratio] in Serum or Plasma 30 [facility] Bicarbonate [Moles/volume] in Serum 12 mmol/L 22-29 L [facility] Confirmed Alanine aminotransferase [Enzymatic activity/volume] in Seru m or Plasma 37 U/L <41 [facility] Anion gap 3 in Serum or Plasma 32 mmol/L 8-15 H [facility] Confirmed Glomerular filtration rate/1.73 sq M pre dicted among non-blacks [Volume Rate/Area] in Serum or Plasma by Creatinine-based formula (MDRD) 56 mL/min/1.73m2 >60 L [facility] Glomerular filtration rate/1.73 sq M pre dicted among blacks [Volume Rate/Area] in Serum or Plasma by Creatinine-based formula (MDRD) 64 mL/min/1.73m2 >60 [facility] ID Date Data Source [id number] 07/06/2020 11:08:29 AM [facility] Value Range Interpretation Code Description Data Zahraa rce(s) Supporting Document(s) Magnesium [Mass/volume] in Serum or Plasma 1.7 mg/dL 1.6-2.6 [facility] ID Date Data Source [id number] 07/06/2020 11:08:29 AM [facility] Value Range Interpretation Code Description Data Zahraa rce(s) Supporting Document(s) Phosphate [Mass/volume] in Serum or Plasma 2.6 mg/dL 2.5-4.5 [facility] ID Date Data Source [id number] 07/06/2020 06:19:33 AM [facility] Value Range Interpretation Code Description Data Zahraa rce(s) Supporting Document(s) HIV 1+2 Ab+HIV1 p24 Ag [Presence] in Serum or Plasma by Immu noassay Non Reactive [facility] Negative for HIV-1 p24 antigenand HIV-1/ HIV-2 antibodies. Nolaboratory evidence of HIVinfection. ID Date Data Source [id number] 07/06/2020 06:14:13 AM [facility] Value Range Interpretation Code Description Data Zahraa rce(s) Supporting Document(s) Hepatitis A virus IgM Ab [Presence] in Serum or Plasma by Im munoassay Non Reactive [facility] No acute infection, susceptible to infec tion. ID Date Data Source [id number] 07/06/2020 06:14:13 AM [facility] Value Range Interpretation Code Description Data Zahraa rce(s) Supporting Document(s) Hepatitis B virus surface Ag [Presence] in Serum or Plasma b y Immunoassay Non Reactive [facility] No active or previous infection. Suscept ible to infection. ID Date Data Source [id number] 07/06/2020 06:14:13 AM [facility] Value Range Interpretation Code Description Data Zahraa rce(s) Supporting Document(s) Hepatitis B virus core IgM Ab [Presence] in Serum or Plasma by Immunoassay Non Reactive [facility] IgM antibodies to HBc were not detected, does not exclude the possibility of exposure to HBV. ID Date Data Source [id number] 07/06/2020 06:14:13 AM [facility] Value Range Interpretation Code Description Data Zahraa rce(s) Supporting Document(s) Hepatitis C virus Ab [Presence] in Serum or Plasma by Immuno assay Non Reactive [facility] No serological evidence of active infect ion. If recent exposure is suspected, test for HCV RNA. ID Date Data Source [id number] 07/06/2020 05:55:54 AM [facility] Value Range Interpretation Code Description Data Zahraa rce(s) Supporting Document(s) Lactate [Moles/volume] in Serum or Plasma 5.1 mmol/l 0.5-2.2 [facility] Results called to and read back by 6I RN MARY ALICE RIOS AT [phone] BY [id number] ID Date Data Source [id number] 07/06/2020 05:52:43 AM [facility] Value Range Interpretation Code Description Data Zahraa rce(s) Supporting Document(s) Ammonia [Moles/volume] in Plasma 19 umol/L 16-60 [facility] ID Date Data Source [id number] 07/11/2020 08:53:02 AM [facility] Cmnt XXX-Imp : L BICEPMicroorgan ism XXX Cult : No growth 5 days Name Value Range Interpretation Code Description Data Zahraa rce(s) Supporting Document(s) ID Date Data Source [id number] 07/11/2020 08:53:02 AM [facility] Cmnt XXX-Imp : CENTRAL LINEMicro organism XXX Cult : No growth 5 days Name Value Range Interpretation Code Description Data Zahraa rce(s) Supporting Document(s) ID Date Data Source [id number] 07/07/2020 01:37:29 PM [facility] Cmnt XXX-Imp : NoneMicroorganism XXX Cult : No growth 1 day Name Value Range Interpretation Code Description Data Zahraa rce(s) Supporting Document(s) ID Date Data Source [id number] 07/06/2020 02:24:54 AM [facility] Name Value Range Interpretation Code Description Data Zahraa rce(s) Supporting Document(s) Glucose [Mass/volume] in Capillary blood by Glucometer 173 mg/dL 70- 140 H [facility] ID Date Data Source [id number] 07/06/2020 05:25:00 AM [facility] l TSYSORDER [id number] Name Value Range Interpretation Code Description Data Zahraa rce(s) Supporting Document(s) URINE RBC 3-5 /hpf 0-3 H [facility] URINE WBC 1-3 /hpf 0-5 [facility] URINE EPITHELIAL CELLS 1+ /hpf 0 [facility] URINE BACTERIA 1+ NONE SEEN [facility] URINE HYALINE CAST 10-30 /LPF 0 [facility] ital ID Date Data Source [id number] 07/06/2020 12:24:[address] [facility] ital TSYSORDER [id number] Name Value Range Interpretation Code Description Data Zahraa rce(s) Supporting Document(s) URINE COLOR. YELLOW [facility] URINE APPEARANCE CLEAR [facility] URINE GLUCOSE (UA) NEGATIVE mg/dL NEGATIVE [facility] URINE BILIRUBIN 1+(SMALL) NEGATIVE [facility] URINE KETONE 80(LARGE) mg/dL NEGATIVE [facility] SPECIFIC GRAVITY,URINE 1.020 1.001-1.035 [facility] URINE BLOOD 2+(MODERATE) NEGATIVE [facility] PH,URINE 5.5 5.0-9.0 [facility] URINE PROTEIN 1+(30) mg/dL NEGATIVE [facility] URINE UROBILINOGEN NORMAL(0.2-1) mg/dL 0-1 [facility] URINE NITRATE NEGATIVE NEGATIVE [facility] URINE LEUKOCYTE ESTERASE NEGATIVE NEGATIVE [facility] ID Date Data Source [id number] 07/06/2020 12:21:00 AM [facility] l TSYSORDER [id number] Name Value Range Interpretation Code Description Data Zahraa rce(s) Supporting Document(s) AMMONIA < 10 umol/L 11-32 L [facility] ID Date Data Source [id number] 07/05/2020 11:29:[address] [facility] T[facility] [id number] Name Value Range Interpretation Code Description Data [...] are for the indentification of SARS-CoV-2 RNA. DbbXXMC-[id number]-7 RNA is generally detectable in respiratorysamples during the actue phase of infection. ID Date Data Source [id number] 07/05/2020 11:10:00 PM EST [facility] Name Value Range Interpretation Code Description Data Zahraa rce(s) Supporting Document(s) COVID-19 [facility] by [facility]. ID Date Data Source [id number] 07/12/2020 09:25:00 AM [facility] Name Value Range Interpretation Code Description Data Zahraa rce(s) Supporting Document(s) [facility] ID Date Data Source [id number] 07/05/2020 09:38:00 PM EST [facility] TSYSORDER [id number] Name Value Range Interpretation Code Description Data Zahraa rce(s) Supporting Document(s) LACTIC ACID 9.8 mmol/L 0.4-2.0 H [facility] SAMPLE SLIGHTLY HEMOLYZED CALLED RESULTS TO [facility]OR[facility] IN ED AT 2138 ON 07/05/20 ID Date Data Source [id number] 07/05/2020 09:29:00 PM EST [facility] TSYSORDER [id number] Name Value Range Interpretation Code Description Data Zahraa rce(s) Supporting Document(s) GLUCOSE 174 mg/dL 74-106 H [facility] BLOOD UREA NITROGEN 51 mg/dL 7-18 *H [facility] ital CREATININE 2.7 mg/dL 0.7-1.3 H [facility] SODIUM 127 mmol/L 136-145 L [facility] POTASSIUM 3.1 mmol/L 3.5-5.1 L [facility] CHLORIDE 78 mmol/L 98-107 *L [facility] CO2 14 mmol/L 21-32 *L [facility] CALCIUM 8.2 mg/dL 8.5-10.1 [facility] ANION GAP 35.0 mmol/L 5-12 H [facility] GLOMERULAR FILTRATION RATE 25 mL/min [facility] GFR IS CALCULATED IN mL/min/1.73m2 VINICIUS L FUNCTION: >90MILDLY DECREASED: 60-89MILDY TO MODERATELY DECREASED: 45-59 MODERATELY TO SEVERELY DECREASED: 30-44SEVERELY DECREASED: 15-29RENAL FAILURE: <15 AST 118 U/L 15-37 *H [facility] ALT 61 U/L 12-78 [facility] ALKALINE PHOSPHATASE 100 U/L 46-116 [facility] pital TOTAL BILIRUBIN 0.8 mg/dL 0.2-1.0 [facility] TOTAL PROTEIN 8.2 g/dl 6.4-8.2 [facility] ALBUMIN 3.9 gm/dL 3.4-5.0 [facility] ID Date Data Source [id number] 07/05/2020 09:29:00 PM [facility] TSYSORDER [id number] Name Value Range Interpretation Code Description Data Zahraa rce(s) Supporting Document(s) MAGNESIUM 2.7 mg/dL 1.8-2.4 H [facility] ID Date Data Source [id number] 07/05/2020 09:29:00 PM [facility] l TSYSORDER [id number] Name Value Range Interpretation Code Description Data Zahraa rce(s) Supporting Document(s) LIPASE 124 U/L 73-393 [facility] ID Date Data Source [id number] 07/05/2020 09:24:[address] [facility] TSYS[facility] [id number] Name Value Range Interpretation Code Description Data Zahraa rce(s) Supporting Document(s) ETHYL ALCOHOL 0.26 % 0-0.01 H [facility] ID Date Data Source [id number] 07/05/2020 09:17:00 PM [facility] l TSYSORDER [id number] Name Value Range Interpretation Code Description Data Zahraa rce(s) Supporting Document(s) TSH 1.03 uIU/mL 0.36-3.74 [facility] ID Date Data Source [id number] 07/05/2020 09:12:00 PM [facility] l TSYSORDER [id number] Name Value Range Interpretation Code Description Data Zahraa rce(s) Supporting Document(s) PROTHROMBIN TIME (PATIENT) 10.6 SECONDS 9.1-11.6 [facility] INR 1.02 0.87-1.06 [facility] ID Date Data Source [id number] 07/05/2020 09:12:00 PM [facility] l TSYSORDER [id number] Name Value Range Interpretation Code Description Data Zahraa rce(s) Supporting Document(s) PARTIAL THROMBOPLASTIN TIME 24.4 SECONDS 21.2-27.3 [facility] ID Date Data Source [id number] 07/05/2020 08:48:00 PM [facility] TSYSORDER [id number] Name Value Range Interpretation Code Description Data Zahraa rce(s) Supporting Document(s) WHITE BLOOD COUNT 16.4 K/mm3 4.0-10.0 H [facility]ya RED BLOOD COUNT 5.20 M/mm3 4.50-6.00 [facility] HEMOGLOBIN 16.4 gm/dL 14.0-18.0 [facility] HEMATOCRIT 45.2 % 42.0-54.0 [facility] MEAN CELL VOLUME 86.9 fl 80-96 [facility] MEAN CORPUSCULAR HEMOGLOBIN 31.5 pg 27.0-31.0 H [facility] MEAN CORPUSCULAR HGB CONC 36.3 g/dl 32.0-36.0 H [facility] RED CELL DISTRIBUTION WIDTH 13.3 % 10.0-14.5 [facility] PLATELET COUNT 198 K/mm3 172-450 [facility] MEAN PLATELET VOLUME 11.0 fl 9.0-13.0 [facility]ital GRAN % 87.9 % 50-80.0 H [facility] IG% 0.1 % 0.0-0.2 [facility] LYMPH % 4.5 % 25.0-50.0 *L [facility] MONO % 7.3 % 2.0-10.0 [facility] EOS % 0.1 % 0-5.0 [facility] ID Date Data Source [id number] 07/12/2020 09:25:00 AM EST [facility] Name Value Range Interpretation Code Description Data Zahraa rce(s) Supporting Document(s) [facility] ID Date Data Source [id number] 07/24/2019 08:32:00 PM EST [facility] Patient: JANICE VERMA [facility]ation [facility]VisitID: [id number] [place] [address] [phone], MRegistration Date/Time: 07/24/2019 17:27 Weight:99.7 kg (S). [...] 07/24/2019 19:54) Addenda for JANICE VERMA VisitID: [id number] Date: 07/24/2019 07/24/2019 20:30indomethacin 25 mg capsule Take 1 capsule every eight hours as needed for pain for 5 days -- Dispense 15 capsule. Refills: 0. Substitution permitted.Pharmacy - [phone] - [address] [place] [address]. FaxNumber: [phone].(Electronically signed by Edita Jasmine - 07/24/2019 20:30) Name Value Range Interpretation Code Description Data Zahraa rce(s) Supporting Document(s) ID Date Data Source [id number] 07/24/2019 07:56:00 PM [facility] Patient: JANICE VERMA Observation Report - [facility].VisitID: [id number] [place] [address] [phone], MRegistration Date/Time: 07/24/2019 17:27 Weight:99.7 kg (S). [...] (finding) completed Current non-drinker of alcohol (finding) [facility] Tobacco use and exposure 07/06/2020 12:00:00 AM EST Never used co mpleted Never used [facility] Cigarette pack-years 07/06/2020 12:00:00 AM EST [facility] Cigarettes smoked current (pack per day) - Reported 07/06/20 12:00:00 AM EST [facility] Smoking 07/06/2020 12:00:00 AM EST Current every day smoker co mpleted Current every day smoker [facility] Vital Signs ID Date Data Source [id number] 09/10/2020 08:14:00 PM EST [facility] Name Value Range Interpretation Code Description Data Source(s) WEIGHT 88.3 kilos 88.3 kilos [facility] HEIGHT 177.8 centimeters 177.8 centimeters [facility] ID Date Data Source [id number] 07/14/2020 03:31:42 PM EST [facility] Name Value Range Interpretation Code Description Data Source(s) WEIGHT RECORDED 190.26 lb 190.26 lb [facility] Body height Measured 68 in 68 in [facility] TRANSFER FROM [facility] Patient Treatment Plan of Care Planned Activity Planned Date Details Description Data Source (s) Aspirin 81 MG Delayed Release Oral Tablet 07/10/2020 12:00:00 AM [facility] Magnesium Oxide 400 MG Oral Tablet 07/10/2020 12:00:[address] [facility] potassium phosphate 155 MG / Sodium Phos phate, Dibasic 852 MG / Sodium Phosphate, Monobasic 130 MG Oral Tablet 07/10/2020 12:00:[address] [facility] pantoprazole 40 MG Delayed Release Oral Tablet 07/10/2020 12:00:[address] [facility] Hydroxyzine Hydrochloride 25 MG Oral Tablet 07/10/2020 12:00:[address] [facility] maalox/lidocaine/diphenhydrAMINE 1:1:1 SWISH & SWAL or al suspension 07/10/2020 12:00:[address] [facility] Folic Acid 1 MG Oral Tablet 07/10/2020 12:00:[address] [facility] Thiamine 100 MG Oral Tablet 07/10/2020 12:00:[address] [facility] Lisinopril 10 MG Oral Tablet 07/10/2020 12:00:[address] [facility] vancomycin 50 mg/mL PO SOLN oral solution 07/10/2020 12:00:00 AM [facility] fentaNYL (SUBLIMAZE) 100 MCG/2ML (PF) injection 07/06/2020 01:37:[address] [facility] Capsaicin 1 MG/ML Topical Cream 06/24/2019 12:00:00 AM EDT [facility] Aspirin 325 MG Oral Tablet U [facility] Lisinopril 10 MG Oral Tablet [facility] Hydroxyzine Hydrochloride 25 MG Oral Tablet [facility] Indomethacin (INDOCIN PO) [facility] Esomeprazole 20 MG Delayed Release Oral Capsule [facility] Atenolol 100 MG Oral Tablet [facility]
[2020-09-20 18:37] LABS: AMPHETAMINES LEVEL URINE NEGATIVE (NEGATIVE); BARBITURATES URINE NEGATIVE (NEGATIVE); BENZODIAZEPINES URINE NEGATIVE (NEGATIVE); CANNABINOIDS URINE NEGATIVE (NEGATIVE); COCAINE METABOLITE URINE NEGATIVE (NEGATIVE); METHADONE URINE NEGATIVE (NEGATIVE); OPIATES URINE NEGATIVE (NEGATIVE); PHENCYCLIDINE URINE NEGATIVE (NEGATIVE)
[2020-09-20 19:16] LABS: HEMATOCRIT 45.6 % (42.0-52.0); HEMOGLOBIN 13.1 g/dl (13.5-17.5); MEAN CORPUSCULAR HEMOGLOBIN 29.4 pg (27.0-33.0); MEAN CORPUSCULAR HGB CONC 28.7 g/dl (32.0-36.5); MEAN CORPUSCULAR VOLUME 102.2 fl (80.0-96.0); PLATELET COUNT, AUTOMATED 181 10^3/uL (150-450); RED BLOOD COUNT 4.46 10^6/uL (4.30-6.10); WHITE BLOOD COUNT 5.3 10^3/uL (4.0-10.0)
--- NOTE | 2020-09-20 20:01 | REP ---
INDICATION: chest pain COMPARISON: 09/13/2020. TECHNIQUE: PA/Lateral FINDINGS: Lungs: There is left upper lobe lingular and left lower lobe infiltrate. This has improved when compared to the prior study. There is new medial right lower lobe infiltrate. Heart: Normal in size. Mediastinum: Mediastinal silhouette unremarkable. Pleural angles: There may be a small left pleural effusion.. Bones and soft tissues: Unremarkable. IMPRESSION: Lingular and left lower lobe infiltrates have improved. New medial right lower lobe infiltrate. Suspect small left pleural effusion. <Electronically signed by Narayan Gold > 09/20/201957
[2020-09-20 20:06] LABS: ACETAMINOPHEN LEVEL < 2.0 UG/ML (10.0-30.0); ALBUMIN 2.9 GM/DL (3.2-5.2); ALT/SGPT 25 U/L (12-78); BILIRUBIN,DIRECT < 0.1 MG/DL (0.0-0.2); BILIRUBIN,TOTAL 0.3 MG/DL (0.2-1.0); BLOOD UREA NITROGEN 11 MG/DL (7-18); CALCIUM LEVEL 8.1 MG/DL (8.5-10.1); CARBON DIOXIDE LEVEL 21 MEQ/L (21-32); CHLORIDE LEVEL 109 MEQ/L (98-107); CK-MB VALUE MASS < 1.0 NG/ML (<3.6); CPK CREATINE PHOSPHOKINASE 60 U/L (39-308); CREATININE FOR GFR 0.71 MG/DL (0.70-1.30); ETHYL ALCOHOL (ETHANOL) 0.206 % (0.000-0.010); GLOMERULAR FILTRATION RATE > 60.0 (>56); GLUCOSE, FASTING 86 MG/DL (70-100); MB/CK RELATIVE INDEX 1.67 (< OR =4); POTASSIUM SERUM 4.1 MEQ/L (3.5-5.1); SALICYLATE LEVEL < 1.7 MG/DL (5.0-30.0); SODIUM LEVEL 142 MEQ/L (136-145); TOTAL PROTEIN 7.3 GM/DL (6.4-8.2); TROPONIN I < 0.02 NG/ML (< 0.10)
--- NOTE | 2020-09-20 20:59 | ECGEPIP ---
[facility] - ED Test Date: 2020-09-20 Pat Name: JANICE LAY Department: Room: - Gender: Male Manager Interventional: RANDEE : 1965 Requested By: SELVIN Nielsen Order Number: [id number] Reading MD: Khris Mccarthy Measurements Intervals [place] Rate: 67 P: 44 SC: 149 QRS: 11 QRSD: 78 T: 47 QT: 402 QTc: 426 Interpretive Statements SINUS RHYTHM WITH SINUS ARRHYTHMIA SIMILAR TO 09/13/20 Electronically Signed on 09-20-2020 20:59:35 EST by Khris Mccarthy
[2020-09-20 21:21] VITALS: O2SAT 92
[2020-09-20] MEDS ORDERED: GI COCKTAIL 50ML BTL(HYOSCYAMINE/MAALOX/LIDOCAINE VISCOUS)(1:3:1) PO ONE (22:30)
[2020-09-20 22:57] LABS: CK-MB VALUE MASS < 1.0 NG/ML (<3.6); CPK CREATINE PHOSPHOKINASE 39 U/L (39-308); MB/CK RELATIVE INDEX 2.56 (< OR =4); TROPONIN I < 0.02 NG/ML (< 0.10)
[2020-09-20] MEDS ORDERED: ACETAMINOPHEN TAB 650MG DOSE (2X325MG) PO ONE (23:30)
[2020-09-21 01:17] VITALS: BP 147/75
--- NOTE | 2020-09-21 05:36 | ECGEPIP ---
[facility] - ED Test Date: 2020-09-20 Pat Name: JANICE LAY Department: Room: - Gender: Male Double Corner Cutter: arely : 1965 Requested By: SELVIN Nielsen Order Number: [id number] Reading MD: Khris Mccarthy Measurements Intervals [place] Rate: 66 P: 48 [place]: 147 QRS: 15 QRSD: 76 T: 41 QT: 394 QTc: 415 Interpretive Statements SINUS RHYTHM WITH SINUS ARRHYTHMIA SIMILAR TO PRIOR ON SAME DATE Electronically Signed on 09-21-2020 5:36:27 EST by Khris Mccarthy
--- NOTE | 2020-09-21 11:40 | ED PDOC ---
Post-Departure Follow-Up certified letter sent to pt re formal read of cxr. please see report. obtain pcp name and fax. needs fu. is sx of pneumonia encourage pcp eval or ed eval.Mahendra Rocha lg, MD Sep 21, 2020 11:39
== END 2020-09-21 01:15 | disposition home or self-care (01) ==
LOC: M ED 16:03
DX: F10.229 Alcohol dependence with intoxication, unspecified (principal); Z91.19 Patient's noncompliance with other medical treatment and regimen; E11.9 Type 2 diabetes mellitus without complications; I10 Essential (primary) hypertension; E78.9 Disorder of lipoprotein metabolism, unspecified; F41.9 Anxiety disorder, unspecified; G89.29 Other chronic pain; M54.9 Dorsalgia, unspecified; K74.60 Unspecified cirrhosis of liver; Z79.899 Other long term (current) drug therapy; Z79.82 Long term (current) use of aspirin; Z88.5 Allergy status to narcotic agent; Z88.8 Allergy status to other drugs, medicaments and biological substances
CPT/HCPCS: 36415; 71046; 80048; 80076; 80307; 82550; 82553; 84443; 85027; 93005; 99284; G0480

== ENCOUNTER 2020-10-05 07:59 | Inpatient (IN) | payer OTHER ==
[~2020-10-05] VITALS: Ht 175.3 cm; Wt 91.2 kg
[2020-10-05] MEDS ORDERED: METOCLOPRAMIDE INJ 10MG/2ML VIAL (J2765 PER 1) IV ONE (08:15)
[2020-10-05] MEDS ORDERED: LORazepam 2 MG/ML VIAL IV STA (08:19)
[2020-10-05] MEDS ORDERED: SODIUM CHLORIDE IV ONE (08:30)
[2020-10-05] MEDS ORDERED: NS 1,000 ML IV ONE (08:30)
[2020-10-05 08:46] LABS: BASO % 0.2 % (0.0-1.0); EOS % 0.1 % (0.0-3.0); HEMATOCRIT 36.1 % (42.0-52.0); HEMOGLOBIN 12.3 g/dl (13.5-17.5); LYMPH % 10.1 % (24.0-44.0); MEAN CORPUSCULAR HEMOGLOBIN 30.4 pg (27.0-33.0); MEAN CORPUSCULAR HGB CONC 34.1 g/dl (32.0-36.5); MEAN CORPUSCULAR VOLUME 89.4 fl (80.0-96.0); MONO # 0.7 10^3/uL (0.0-0.8); MONO % 6.9 % (0.0-5.0); NEUTROPHILS # 8.1 10^3/uL (1.5-8.5); NEUTROPHILS % 82.3 % (36.0-66.0); PLATELET COUNT, AUTOMATED 182 10^3/uL (150-450); RED BLOOD COUNT 4.04 10^6/uL (4.30-6.10); WHITE BLOOD COUNT 9.8 10^3/uL (4.0-10.0)
[2020-10-05 09:12] LABS: ALBUMIN 3.1 GM/DL (3.2-5.2); ALT/SGPT 28 U/L (12-78); BILIRUBIN,DIRECT 0.5 MG/DL (0.0-0.2); BLOOD UREA NITROGEN 18 MG/DL (7-18); CALCIUM LEVEL 8.2 MG/DL (8.5-10.1); CARBON DIOXIDE LEVEL 23 MEQ/L (21-32); CHLORIDE LEVEL 99 MEQ/L (98-107); CREATININE FOR GFR 0.96 MG/DL (0.70-1.30); GLOMERULAR FILTRATION RATE > 60.0 (>56); GLUCOSE, FASTING 172 MG/DL (70-100); LIPASE 228 U/L (73-393); POTASSIUM SERUM 3.7 MEQ/L (3.5-5.1); SODIUM LEVEL 138 MEQ/L (136-145); TOTAL PROTEIN 7.1 GM/DL (6.4-8.2)
[2020-10-05] MEDS ORDERED: ISOVUE-370 76% 100ML VIAL As Ordered ONE (10:23)
--- NOTE | 2020-10-05 10:49 | REP ---
INDICATION: vomiting. COMPARISON: 03/22/2019 TECHNIQUE: Axial contrast-enhanced images from the lung bases to the pubic symphysis using 100 cc Isovue 370 intravenous contrast material. Coronal and sagittal reformations obtained. This CT examination was performed using the following dose reduction techniques: Automated exposure control, adjustment of mA and/or kv according to the patient's size, and the use of iterative reconstruction technique. FINDINGS: Liver demonstrates fatty infiltration without focal hepatic lesion. Spleen, pancreas, bilateral adrenal glands and kidneys are normal. Evidence for prior cholecystectomy. The enteric system demonstrates mild mucosal thickening to the ascending through mid transverse colon with pericolonic stranding suggesting infectious/inflammatory colitis. No evidence for bowel obstruction or perforation. Sigmoid diverticulosis noted without acute diverticulitis. Pelvis demonstrates normal bladder and age-appropriate prostate/seminal vesicles. No ascites. No free air. No adenopathy. Lung bases demonstrate moderate area of consolidation in the left lower lobe along with smaller patchy scattered non solid ground-glass densities raising the possibility of superimposed pneumonia. IMPRESSION: 1. Possible infectious/inflammatory colitis. No bowel obstruction or perforation. 2. Lung bases demonstrate left lower lobe consolidation with patchy scattered non solid ground-glass densities suspicious for acute pneumonia. 3. Hepatosteatosis. 4. Diverticulosis without acute diverticulitis. <Electronically signed by Nikko Moon > 10/05/20 0627
[2020-10-05 10:58] LABS: INR 1.06
[2020-10-05 11:01] LABS: PARTIAL THROMBOPLASTIN TIME 26.1 SECONDS (24.2-38.5)
[2020-10-05 11:09] LABS: ETHYL ALCOHOL (ETHANOL) 0.135 % (0.000-0.010)
[2020-10-05] MEDS ORDERED: PROMETHAZINE INJ 25 MG/ML VIAL (J2550) IV ONE (11:45)
[2020-10-05] MEDS: CARVedilol 12.5 MG TAB PO SCH ×2 (14:00→20:34)
[2020-10-05] MEDS ORDERED: SUCRALFATE 1 GM TAB PO ONE (14:00)
[2020-10-05] MEDS: PANTOPRAZOLE 40MG VIAL (C9113 PER 1) IV SCH ×2 (14:05→20:34)
[2020-10-05] MEDS ORDERED: LABETALOL 100MG/20ML VIAL IV PRN (14:15)
[2020-10-05] MEDS ORDERED: lisinopriL 40 MG TAB PO ONE (14:15)
--- NOTE | 2020-10-05 14:24 | HPEPDOC ---
General Date of Admission Oct 05, 2020 at 13:49 Date of Service: Oct 05, 2020 Chief Complaint The patient is a 55-year-old male admitted with a reason for visit of Alcohol Intoxication/Intractable Vomiting. Source: Patient Exam Limitations: Clinical conditions, Intoxication Timing/Duration: Day(s) Severity: Moderate Associated Symptoms: Nausea, Vomiting History of Present Illness Patient is 55 years old male with past history of rheumatoid arthritis, history of TIA, type 2 diabetes, history of EtOH abuse presented hospital with intractable nausea and vomiting. Patient stated that he drank vodka for 5 days in a row and after that he developed epigastric pain with multiple episodes of vomiting without any blood. Patient has very poor oral intake and continuous nausea. In ER patient was found to have no leukocytosis, hemoglobin 12.3, glucose level 172, AST 68, ALT 28. CT abdomen and pelvis showed Possible infectious/inflammatory colitis. No bowel obstruction or perforation. Of note patient was recently hospitalized with multifocal pneumonia secondary to COVID- 19. Home Medications Scheduled Aspirin (Aspirin) 325 Mg Tablet, 325 MG PO DAILY, (Reported) Atorvastatin Calcium (Atorvastatin Calcium) 80 Mg Tablet, 80 MG PO DAILY, (Reported) Carvedilol (Carvedilol) 12.5 Mg Tablet, 12.5 MG PO BID, (Reported) Fluoxetine Hcl (Fluoxetine HCl) 20 Mg Capsule, 20 MG PO DAILY, (Reported) Folic Acid (Folic Acid) 1 Mg Tablet, 1 MG PO DAILY, (Reported) Omeprazole (Omeprazole) 20 Mg Capsule.dr, 40 MG PO DAILY, (Reported) Quetiapine Fumarate (Quetiapine Fumarate) 100 Mg Tablet, 100 MG PO QHS, (Reported) Tamsulosin HCl (Flomax) 0.4 Mg Capsule, 0.4 MG PO BID, (Reported) Scheduled PRN Hydroxyzine HCl (Hydroxyzine HCl) 50 Mg Tablet, 50 MG PO BID PRN for ANXIETY, (Reported) Triamcinolone Acet (Triamcinolone Acetonide 0.1% Crm) 80 Gm Cream..g., 1 DOSE TOP BID PRN for ITCHING, (Reported) Allergies Coded Allergies: Unmprnd-Efn-Ace Reductase Inhibitor (Verified Allergy, Severe, FACIAL REDNESS AND TINGLING, 10/05/20) niacin (Verified Adverse Reaction, Intermediate, CHEST PAIN AND FLUSHING, 10/05/20) hydrocodone (Verified Adverse Reaction, Mild, GI UPSET, 10/05/20) prednisone (Verified Adverse Reaction, Mild, MOOD CHANGE, 10/05/20) Past Medical History Medical History Rheumatoid arthritis hx of TIA's (2019) Major depressive disorder. Alcohol use disorder Nicotine use disorder Hx of chronic opioid use Opiate use disorder Liver Cirrhosis?? Osteoarthritis. GERD. BPH Hx of T2DM not on meds Hx of Gout Hx of hypothyroidism Eczema Surgical History cholecystectomy appendectomy Family History I personally reviewed family history and found not pertinent Social History * Smoker: current smoker Alcohol: heavy Drugs: marijuana A-FIB/CHADSVASC A-FIB History Current/History of A-Fib/PAF?: No Current PO Anticoag Therapy: No Review of Systems Constitutional: Denies: Fever Eyes: Denies: Pain ENT: Denies: Head Aches Skin: Denies: Rash Pulmonary: Denies: Dyspnea Cardiovascular: Denies: Chest Pain Gastrointestinal: Reports: Nausea, Vomiting, Abdominal Pain Genitourinary: Denies: Dysuria Hematologic: Denies: Bruising Endocrine: Denies: Polydipsia Musculoskeletal: Denies: Neck Pain Neurological: Denies: Weakness Psych: Reports: Mood Normal Physical Examination General Exam: Positive: Alert, Cooperative Eye Exam: Positive: PERRLA ENT Exam: Positive: Atraumatic Neck Exam: Positive: Supple; Negative: JVD Chest Exam: Positive: Clear to auscultation Heart Exam: Positive: Rate Normal Telemetry: Positive: No significant arrhythmia Abdomen Exam: Positive: Tenderness (in the epigastric area) Extremity Exam: Negative: Clubbing, Cyanosis Skin Exam: Positive: Nl turgor and temperature Neuro Exam: Positive: Strength at 5/5 X4 ext Psych Exam: Positive: Oriented x 3 Vital Signs Vital Signs Date Time Temp Pulse Resp B/P (MAP) Pulse Ox O2 Delivery O2 Flow Rate FiO2 10/05/20 09:49 192/93 (126) 10/05/20 09:44 84 10/05/20 08:09 97.8 20 97 Laboratory Data Labs 24H Laboratory Tests 2 10/05/20 08:24: Immature Granulocyte % (Auto) 0.4, Neutrophils (%) (Auto) 82.3H, Lymphocytes (%) (Auto) 10.1L, Monocytes (%) (Auto) 6.9H, Eosinophils (%) (Auto) 0.1, Basophils (%) (Auto) 0.2, Neutrophils # (Auto) 8.1, Lymphocytes # (Auto) 1.0L, Monocytes # (Auto) 0.7, Eosinophils # (Auto) 0.0, Basophils # (Auto) 0.0, Nucleated Red Blood Cells % (auto) 0.0, Prothrombin Time 14.0, Prothromb Time International Ratio 1.06, Activated Partial Thromboplast Time 26.1, Anion Gap 16, Glomerular Filtration Rate > 60.0, Calcium Level 8.2L, Total Bilirubin 1.0, Direct Bili barrera 0.5H, Aspartate Amino Transf (AST/SGOT) 68H, Alanine Aminotransferase (ALT/SGPT) 28, Alkaline Phosphatase 133H, Total Protein 7.1, Albumin 3.1L, Albumin/Globulin Ratio 0.8, Lipase 228, Ethyl Alcohol Level 0.135H CBC/BMP Laboratory Tests 10/05/20 08:24 Assessment/Plan Patient is 55 years old male with past history of rheumatoid arthritis, history of TIA, type 2 diabetes, history of EtOH abuse presented hospital with intractable nausea and vomiting. Patient stated that he drank vodka for 5 days in a row and after that he developed epigastric pain with multiple episodes of vomiting without any blood. Patient has very poor oral intake and continuous nausea. In ER patient was found to have no leukocytosis, hemoglobin 12.3, glucose level 172, AST 68, ALT 28. CT abdomen and pelvis showed Possible infectious/inflammatory colitis. No bowel obstruction or perforation. Of note patient was recently hospitalized with multifocal pneumonia secondary to COVID- 19. Problems (1) Intractable vomiting Status: Acute Problem Text: Zofran IV Secondary to alcohol intoxication, possible gastritis or PUD PPI IV, Carafate (2) Alcohol intoxication Status: Acute Problem Text: CIWA (3) Hypertensive urgency Status: Acute Problem Text: Labetalol when necessary IV Lisinopril 40 mg once (4) Depression Status: Acute Problem Text: Continue home meds (5) Diabetes mellitus Status: Chronic Problem Text: Insulin sliding scale After initial stabilization diabetes diet Plan / VTE VTE Prophylaxis Ordered?: Yes TRUDI MARTINS DO Oct 05, 2020 14:24
[2020-10-05] MEDS: THIAMINE 100 MG TAB PO SCH ×2 (14:30→20:34)
[2020-10-05] MEDS ORDERED: DEXTROSE 50% 50 ML SYRINGE IV PRN (14:30)
[2020-10-05] MEDS: SUCRALFATE SUSP 1GM/10ML UD PO SCH ×2 (14:30→20:34)
[2020-10-05] MEDS ORDERED: GLUCAGON INJ 1MG VIAL SC PRN (14:30)
[2020-10-05] MEDS: TAMSULOSIN 0.4 MG CAP PO SCH ×2 (14:30→20:34)
[2020-10-05] MEDS ORDERED: GLUCOSE 4GM CHEW TABLET PO PRN (14:30)
[2020-10-05 15:23] VITALS: BP 142/90
[2020-10-05] MEDS ORDERED: SLF 3 ML SYR IV PRN (16:00)
[2020-10-05] MEDS: ONDANSETRON 4MG/2ML VIAL IV PRN ×2 (16:48→20:34)
[2020-10-05] MEDS: LORazepam 2 MG TAB PO PRN ×2 (16:48→21:08)
[2020-10-05] MEDS: HumaLOG INSULIN (NovoLOG) PER UNIT SC SCH ×2 (17:30→20:34)
[2020-10-05 17:31] VITALS: BP 150/85
[2020-10-05] MEDS ORDERED: CALCIUM CARBONATE 500 MG CHEW U/D PO ONE (19:00)
[2020-10-05 20:00] VITALS: BP 145/67
[2020-10-05] MEDS: QUEtiapine FUMARATE 100 MG TAB PO SCH (20:34)
[2020-10-05] MEDS: SLF 3 ML SYR IV SCH (20:35)
--- NOTE | 2020-10-05 21:00 | ECGEPIP ---
[facility] - ED Test Date: 2020-10-05 Pat Name: JANICE LAY Department: Room: - Gender: Male Wood Calker: katie : 1965 Requested By: Tash Choi Order Number: [id number] Reading MD: Tash Choi Measurements Intervals [place] Rate: 92 P: 62 MN: 136 QRS: 48 QRSD: 76 T: 36 QT: 378 QTc: 467 Interpretive Statements Normal sinus rhythm with sinus arrhythmia NSTTW abnormalities compared 09/20/20 Electronically Signed on 10-05-2020 20:59:44 EST by Tash Choi
[2020-10-06] VITALS (17 sets, daily range): BP systolic 100–115; BP diastolic 60–76
[2020-10-06] MEDS: SLF 3 ML SYR IV SCH ×3 (03:39→20:20)
[2020-10-06] MEDS: ONDANSETRON 4MG/2ML VIAL IV PRN (03:39)
[2020-10-06 05:43] LABS: HEMATOCRIT 23.8 % (42.0-52.0); MEAN CORPUSCULAR HEMOGLOBIN 29.7 pg (27.0-33.0); MEAN CORPUSCULAR HGB CONC 32.8 g/dl (32.0-36.5); MEAN CORPUSCULAR VOLUME 90.5 fl (80.0-96.0); RED BLOOD COUNT 2.63 10^6/uL (4.30-6.10); WHITE BLOOD COUNT 4.1 10^3/uL (4.0-10.0)
[2020-10-06 05:56] LABS: HEMOGLOBIN 7.8 g/dl (13.5-17.5); PLATELET COUNT, AUTOMATED 68 10^3/uL (150-450)
[2020-10-06 06:30] LABS: ALBUMIN 2.3 GM/DL (3.2-5.2); ALT/SGPT 21 U/L (12-78); BILIRUBIN,TOTAL 1.1 MG/DL (0.2-1.0); BLOOD UREA NITROGEN 21 MG/DL (7-18); CALCIUM LEVEL 7.3 MG/DL (8.5-10.1); CARBON DIOXIDE LEVEL 27 MEQ/L (21-32); CHLORIDE LEVEL 105 MEQ/L (98-107); CREATININE FOR GFR 0.84 MG/DL (0.70-1.30); GLOMERULAR FILTRATION RATE > 60.0 (>56); GLUCOSE, FASTING 147 MG/DL (70-100); MAGNESIUM LEVEL 1.3 MG/DL (1.8-2.4); POTASSIUM SERUM 2.9 MEQ/L (3.5-5.1); SODIUM LEVEL 140 MEQ/L (136-145); TOTAL PROTEIN 5.7 GM/DL (6.4-8.2)
[2020-10-06] MEDS ORDERED: POTASSIUM CHLORIDE 10 MEQ SR TABLET PO ONE (06:45)
[2020-10-06] MEDS: MAG SULF 1GM/100ML (MAG RUN) 1 GM in IV 1 EA IV SCH ×4 (06:49→12:45)
[2020-10-06] MEDS ORDERED: MAG SULF 1GM/100ML (MAG RUN) 1 GM in IV 1 EA IV ONE (07:45)
[2020-10-06] MEDS ORDERED: KCL 10MEQ/100ML SWI (KRUN) 10 MEQ in IV 1 EA IV ONE (07:45)
[2020-10-06] MEDS: HumaLOG INSULIN (NovoLOG) PER UNIT SC SCH ×4 (08:25→20:09)
[2020-10-06] MEDS: PANTOPRAZOLE 40MG VIAL (C9113 PER 1) IV SCH ×2 (08:26→20:10)
[2020-10-06] MEDS: TAMSULOSIN 0.4 MG CAP PO SCH ×2 (08:26→20:09)
[2020-10-06] MEDS: MULTIVITAMINS/MINERALS THERAP 1 TAB PO SCH (08:26)
[2020-10-06] MEDS: FOLIC ACID 1 MG TAB PO SCH (08:26)
[2020-10-06] MEDS: CARVedilol 12.5 MG TAB PO SCH ×2 (08:28→20:12)
[2020-10-06] MEDS: THIAMINE 100 MG TAB PO SCH ×2 (08:28→20:09)
[2020-10-06] MEDS: SUCRALFATE SUSP 1GM/10ML UD PO SCH ×2 (08:28→20:10)
[2020-10-06] MEDS: ENOXAPARIN 40MG/0.4ML SYRINGE (J1650 PER 10MG) SC SCH (08:31)
[2020-10-06] MEDS: LORazepam 2 MG TAB PO PRN ×2 (11:40→20:09)
--- NOTE | 2020-10-06 12:23 | IPNPDOC ---
Text Note Date of Service The patient was seen on 10/06/20. NOTE Subjective: No any acute events overnight. Patient stated that he has less epi gastric pain when yesterday. He stated that for 3 days before admission he noticed black stool a few times and vomiting with blood for 3 days in a row. Objective: GENERAL APPEARANCE: NAD HEENT: no scleral icterus, no JVD, EOMI CARDIOVASCULAR: S1S2 LUNGS: CTA ABDOMEN: soft & mildly tender in epigastric area MUSCULOSKELETAL: no cyanosis, no swelling INTEGUMENT: no generalized pallor NEUROLOGICAL: cranial nerve function from 2-12 intact intact, follows commands, speech not dysarthric Assessment/Plan Patient is 55 years old male with past history of rheumatoid arthritis, history of TIA, type 2 diabetes, history of EtOH abuse presented hospital with intractable nausea and vomiting. Patient stated that he drank vodka for 5 days in a row and after that he developed epigastric pain with multiple episodes of vomiting without any blood. Patient has very poor oral intake and continuous nausea. In ER patient was found to have no leukocytosis, hemoglobin 12.3, glucose level 172, AST 68, ALT 28. CT abdomen and pelvis showed Possible infectious/inflammatory colitis. No bowel obstruction or perforation. Of note patient was recently hospitalized with multifocal pneumonia secondary to COVID- 19. Problems (1) Intractable vomiting Improved Zofran IV Secondary to alcohol intoxication, possible gastritis or PUD PPI IV, Carafate (2) Alcohol intoxication CIWA (3) Hypertensive urgency Resolved Labetalol when necessary IV Lisinopril 40 mg once (4) Depression Continue home meds (5) Diabetes mellitus Insulin sliding scale After initial stabilization diabetes diet Acute Anemia Secondary to GI loss Continue PPI H&H every 6 hours Appreciate/agree with GI consult Pradip MYERS, I+O VSPradip, I+O Laboratory Tests 10/06/20 05:23 Vital Signs Date Time Temp Pulse Resp B/P (MAP) Pulse Ox O2 Delivery O2 Flow Rate FiO2 10/06/20 08:28 73 107/62 10/06/20 08:00 98.1 18 100 Room Air I&O- Last 24 Hours up to 6 AM 10/06/20 06:00 Intake Total 3350 ml Output Total 150 ml Balance 3200 ml TRUDI MARTINS DO Oct 06, 2020 12:23
[2020-10-06 13:23] LABS: HEMATOCRIT 23.9 % (42.0-52.0); HEMOGLOBIN 7.8 g/dl (13.5-17.5)
[2020-10-06 13:55] LABS: BLOOD UREA NITROGEN 18 MG/DL (7-18); CALCIUM LEVEL 7.9 MG/DL (8.5-10.1); CARBON DIOXIDE LEVEL 28 MEQ/L (21-32); CHLORIDE LEVEL 105 MEQ/L (98-107); CREATININE FOR GFR 0.82 MG/DL (0.70-1.30); GLOMERULAR FILTRATION RATE > 60.0 (>56); GLUCOSE, FASTING 154 MG/DL (70-100); MAGNESIUM LEVEL 2.5 MG/DL (1.8-2.4); POTASSIUM SERUM 3.6 MEQ/L (3.5-5.1); SODIUM LEVEL 139 MEQ/L (136-145)
[2020-10-06] MEDS: FLUoxetine 20 MG CAP PO SCH (14:25)
[2020-10-06] MEDS: NS 1,000 ML IV SCH ×2 (14:28→23:19)
[2020-10-06] MEDS ORDERED: propofoL 200 MG/20 ML VIAL As Ordered ONE (17:14)
[2020-10-06] MEDS ORDERED: LIDOCAINE 2% 100MG/5ML SDV (FOR ANES.) As Ordered ONE (17:14)
[2020-10-06] MEDS ORDERED: fentaNYL 100 MCG/2 ML INJECTION (J3010) As Ordered ONE (17:14)
[2020-10-06] MEDS ORDERED: ePHEDrine SULFATE 25 MG/5 ML(5MG/ML) SYRINGE As Ordered ONE (17:24)
--- NOTE | 2020-10-06 18:00 | ROOR ---
Patient Name: Kobe Verma Procedure Date: 10/06/2020 5:27 PM Date of : 1965 Age: 55 Room: [facility] Gender: Male Note Status: Finalized Procedure: Upper GI endoscopy Indications: Acute post hemorrhagic anemia Providers: Michael RAMOS MD Referring MD: 2. Inpatient 2. Inpatient Requesting Provider: Medicines: Monitored Anesthesia Care Complications: No immediate complications. Procedure: Pre-Anesthesia Assessment: - The heart rate, respiratory rate, oxygen saturations, blood pressure, adequacy of pulmonary ventilation, and response to care were monitored throughout the procedure. The Endoscope was introduced through the mouth, and advanced to the second part of duodenum. The upper GI endoscopy was performed with difficulty due to abnormal anatomy. The patient tolerated the procedure well. Findings: Four non-bleeding cratered duodenal ulcers with pigmented material were found in the first portion of the duodenum and in the second portion of the duodenum. The largest lesion was 10 mm in largest dimension. This was biopsied with a cold forceps for histology. A deformity was found in the gastric antrum and at the pylorus. Mild inflammation was found in the stomach. Biopsies were taken with a cold forceps for histology. Moderate esophagitis with no bleeding was found. Impression: - Markedly scarred/deformed pylorus/pyloric channel. (There is no obstruction, but access to pyloric channel/duodenum is very difficult. - Non-bleeding duodenal ulcers with pigmented material. Biopsied. - Gastritis. Biopsied. - Esophagitis. (- no active bleeding is seen, gastric and duodenal contents are clear) Recommendation: - Observe patient's clinical course. - Clear liquid diet. - Use a proton pump inhibitor PO BID indefinitely. - Telephone endoscopist for pathology results in 2 weeks. - Pt can follow up with Dr Wood/primary GI as scheduled. Procedure Code(s): --- Professional --- 93591, Esophagogastroduodenoscopy, flexible, transoral; with biopsy, single or multiple Diagnosis Code(s): --- Professional --- D62, Acute posthemorrhagic anemia K20.9, Esophagitis, unspecified K29.70, Gastritis, unspecified, without bleeding K31.89, Other diseases of stomach and duodenum K26.9, Duodenal ulcer, unspecified as acute or chronic, without hemorrhage or perforation CPT copyright 2019 [employer]. All rights reserved. The codes documented in this report are preliminary and upon acoustical installer review may be revised to meet current compliance requirements. Michael Ramos MD Michael RAMOS MD 10/06/2020 6:00:28 PM Electronically signed by Michael RAMOS MD Number of Addenda: 0 Note Initiated On: 10/06/2020 5:27 PM Estimated Blood Loss: Estimated blood loss: none.
[2020-10-06] MEDS ORDERED: ONDANSETRON 4MG/2ML VIAL IV PRN (18:30)
[2020-10-06 18:38] LABS: HEMATOCRIT 25.7 % (42.0-52.0); HEMOGLOBIN 8.2 g/dl (13.5-17.5)
[2020-10-06] MEDS: QUEtiapine FUMARATE 100 MG TAB PO SCH (20:10)
[2020-10-06] MEDS: ACETAMINOPHEN TAB 650MG DOSE (2X325MG) PO PRN (22:04)
[2020-10-07] VITALS (11 sets, daily range): BP systolic 104–140; BP diastolic 60–81
[2020-10-07 00:14] LABS: HEMATOCRIT 30.8 % (42.0-52.0)
[2020-10-07] MEDS: LORazepam 2 MG TAB PO PRN ×2 (03:34→18:14)
[2020-10-07] MEDS ORDERED: MAALOX 30 ML SUSP *UDC PO ONE (03:45)
[2020-10-07] MEDS: SLF 3 ML SYR IV SCH ×3 (04:16→21:09)
[2020-10-07 05:35] LABS: BASO % 0.7 % (0.0-1.0); EOS # 0.1 10^3/uL (0.0-0.5); EOS % 2.2 % (0.0-3.0); HEMATOCRIT 28.9 % (42.0-52.0); HEMOGLOBIN 9.2 g/dl (13.5-17.5); LYMPH # 0.8 10^3/uL (1.5-5.0); LYMPH % 30.9 % (24.0-44.0); MEAN CORPUSCULAR HEMOGLOBIN 29.1 pg (27.0-33.0); MEAN CORPUSCULAR HGB CONC 31.8 g/dl (32.0-36.5); MEAN CORPUSCULAR VOLUME 91.5 fl (80.0-96.0); MONO # 0.2 10^3/uL (0.0-0.8); MONO % 7.4 % (0.0-5.0); NEUTROPHILS # 1.6 10^3/uL (1.5-8.5); NEUTROPHILS % 57.7 % (36.0-66.0); RED BLOOD COUNT 3.16 10^6/uL (4.30-6.10); WHITE BLOOD COUNT 2.7 10^3/uL (4.0-10.0)
[2020-10-07 05:36] LABS: PLATELET COUNT, AUTOMATED 55 10^3/uL (150-450)
[2020-10-07 05:56] LABS: ALBUMIN 2.3 GM/DL (3.2-5.2); ALT/SGPT 25 U/L (12-78); BILIRUBIN,TOTAL 0.9 MG/DL (0.2-1.0); BLOOD UREA NITROGEN 14 MG/DL (7-18); CALCIUM LEVEL 7.1 MG/DL (8.5-10.1); CARBON DIOXIDE LEVEL 23 MEQ/L (21-32); CHLORIDE LEVEL 110 MEQ/L (98-107); CREATININE FOR GFR 0.78 MG/DL (0.70-1.30); GLOMERULAR FILTRATION RATE > 60.0 (>56); GLUCOSE, FASTING 108 MG/DL (70-100); MAGNESIUM LEVEL 1.9 MG/DL (1.8-2.4); POTASSIUM SERUM 3.2 MEQ/L (3.5-5.1); SODIUM LEVEL 140 MEQ/L (136-145); TOTAL PROTEIN 5.5 GM/DL (6.4-8.2)
[2020-10-07] MEDS: HumaLOG INSULIN (NovoLOG) PER UNIT SC SCH ×4 (07:26→20:41)
[2020-10-07] MEDS: PANTOPRAZOLE 40MG VIAL (C9113 PER 1) IV SCH ×2 (08:51→20:40)
[2020-10-07] MEDS: ENOXAPARIN 40MG/0.4ML SYRINGE (J1650 PER 10MG) SC SCH (08:51)
[2020-10-07] MEDS: SUCRALFATE SUSP 1GM/10ML UD PO SCH ×2 (08:51→20:40)
[2020-10-07] MEDS: FLUoxetine 20 MG CAP PO SCH (08:52)
[2020-10-07] MEDS: CARVedilol 12.5 MG TAB PO SCH ×2 (08:52→20:40)
[2020-10-07] MEDS: MULTIVITAMINS/MINERALS THERAP 1 TAB PO SCH (08:52)
[2020-10-07] MEDS: THIAMINE 100 MG TAB PO SCH ×2 (08:52→20:40)
[2020-10-07] MEDS: FOLIC ACID 1 MG TAB PO SCH (08:52)
[2020-10-07] MEDS: TAMSULOSIN 0.4 MG CAP PO SCH ×2 (08:52→20:40)
[2020-10-07] MEDS ORDERED: POTASSIUM CHLORIDE 10 MEQ SR TABLET PO ONE (10:00)
[2020-10-07 11:28] LABS: HEMATOCRIT 30.6 % (42.0-52.0); HEMOGLOBIN 10.2 g/dl (13.5-17.5)
--- NOTE | 2020-10-07 11:55 | IPNPDOC ---
Text Note Date of Service The patient was seen on 10/07/20. NOTE Subjective: No any acute events overnight. Patient asks for food, stated that he is hungry and has good appetite. Objective: GENERAL APPEARANCE: NAD HEENT: no scleral icterus, no JVD, EOMI CARDIOVASCULAR: S1S2 LUNGS: CTA ABDOMEN: soft & mildly tender in epigastric area MUSCULOSKELETAL: no cyanosis, no swelling INTEGUMENT: no generalized pallor NEUROLOGICAL: cranial nerve function from 2-12 intact intact, follows commands, speech not dysarthric Assessment/Plan Patient is 55 years old male with past history of rheumatoid arthritis, history of TIA, type 2 diabetes, history of EtOH abuse presented hospital with intractable nausea and vomiting. Patient stated that he drank vodka for 5 days in a row and after that he developed epigastric pain with multiple episodes of vomiting without any blood. Patient has very poor oral intake and continuous nausea. In ER patient was found to have no leukocytosis, hemoglobin 12.3, glucose level 172, AST 68, ALT 28. CT abdomen and pelvis showed Possible infectious/inflammatory colitis. No bowel obstruction or perforation. Of note patient was recently hospitalized with multifocal pneumonia secondary to COVID- 19. Problems (1) Intractable vomiting Resolved Zofran IV Secondary to alcohol intoxication, possible gastritis or PUD PPI IV, Carafate (2) Alcohol intoxication CIWA (3) Hypertensive urgency Resolved Labetalol when necessary IV Lisinopril 40 mg once (4) Depression Continue home meds (5) Diabetes mellitus Insulin sliding scale After initial stabilization diabetes diet Acute Anemia Secondary to GI loss Continue PPI H&H every 6 hours Appreciate/agree with GI consult Gastritis/esophagitis/duodenal ulcers GI team did EGD yesterday patient was found to have Non-bleeding duodenal ulcers with pigmented material. Gastritis. Esophagitis. Follow-up with pathologist in 2 weeks, follow-up with GI team in the outpatient settings VS,Sandye, I+O VS, Fishbone, I+O Laboratory Tests 10/06/20 18:22 10/06/20 23:56 10/07/20 05:17 10/07/20 11:04 Vital Signs Date Time Temp Pulse Resp B/P (MAP) Pulse Ox O2 Delivery O2 Flow Rate FiO2 10/07/20 11:46 97.8 65 18 140/81 (100) 100 Room Air I&O- Last 24 Hours up to 6 AM 10/07/20 06:00 Intake Total 2470 ml Output Total 400 ml Balance 2070 ml TRUDI MARTINS DO Oct 07, 2020 11:55
[2020-10-07] MEDS: NS 1,000 ML IV SCH ×2 (12:00→23:57)
[2020-10-07] MEDS: ONDANSETRON 4MG/2ML VIAL IV PRN ×2 (17:43→22:09)
[2020-10-07] MEDS: ACETAMINOPHEN TAB 650MG DOSE (2X325MG) PO PRN ×2 (18:17→23:57)
[2020-10-07 19:12] LABS: HEMATOCRIT 30.3 % (42.0-52.0); HEMOGLOBIN 9.7 g/dl (13.5-17.5)
[2020-10-07] MEDS: QUEtiapine FUMARATE 100 MG TAB PO SCH (20:40)
[2020-10-08 00:18] LABS: HEMATOCRIT 27.2 % (42.0-52.0); HEMOGLOBIN 9.1 g/dl (13.5-17.5)
[2020-10-08] MEDS: SLF 3 ML SYR IV SCH ×3 (05:04→21:27)
[2020-10-08 06:00] VITALS: BP 121/71
[2020-10-08 06:58] LABS: BASO % 0.4 % (0.0-1.0); EOS # 0.1 10^3/uL (0.0-0.5); EOS % 1.9 % (0.0-3.0); HEMATOCRIT 27.4 % (42.0-52.0); LYMPH % 36.4 % (24.0-44.0); MEAN CORPUSCULAR HEMOGLOBIN 29.4 pg (27.0-33.0); MEAN CORPUSCULAR HGB CONC 32.8 g/dl (32.0-36.5); MEAN CORPUSCULAR VOLUME 89.5 fl (80.0-96.0); MONO # 0.2 10^3/uL (0.0-0.8); MONO % 9.2 % (0.0-5.0); NEUTROPHILS # 1.3 10^3/uL (1.5-8.5); RED BLOOD COUNT 3.06 10^6/uL (4.30-6.10); WHITE BLOOD COUNT 2.6 10^3/uL (4.0-10.0)
[2020-10-08 07:13] LABS: PLATELET COUNT, AUTOMATED 54 10^3/uL (150-450)
[2020-10-08] MEDS: HumaLOG INSULIN (NovoLOG) PER UNIT SC SCH ×4 (07:30→21:00)
[2020-10-08 07:32] LABS: ALBUMIN 2.1 GM/DL (3.2-5.2); ALT/SGPT 24 U/L (12-78); BILIRUBIN,TOTAL 0.7 MG/DL (0.2-1.0); BLOOD UREA NITROGEN 6 MG/DL (7-18); CALCIUM LEVEL 7.4 MG/DL (8.5-10.1); CARBON DIOXIDE LEVEL 23 MEQ/L (21-32); CHLORIDE LEVEL 113 MEQ/L (98-107); CREATININE FOR GFR 0.77 MG/DL (0.70-1.30); GLOMERULAR FILTRATION RATE > 60.0 (>56); GLUCOSE, FASTING 99 MG/DL (70-100); MAGNESIUM LEVEL 1.5 MG/DL (1.8-2.4); POTASSIUM SERUM 3.4 MEQ/L (3.5-5.1); SODIUM LEVEL 144 MEQ/L (136-145); TOTAL PROTEIN 4.9 GM/DL (6.4-8.2)
[2020-10-08] MEDS: TAMSULOSIN 0.4 MG CAP PO SCH ×2 (10:53→21:28)
[2020-10-08] MEDS: FOLIC ACID 1 MG TAB PO SCH (10:53)
[2020-10-08] MEDS: CARVedilol 12.5 MG TAB PO SCH ×2 (10:53→21:00)
[2020-10-08] MEDS: SUCRALFATE SUSP 1GM/10ML UD PO SCH ×2 (10:53→21:27)
[2020-10-08] MEDS: ENOXAPARIN 40MG/0.4ML SYRINGE (J1650 PER 10MG) SC SCH (10:54)
[2020-10-08] MEDS: PANTOPRAZOLE 40MG VIAL (C9113 PER 1) IV SCH ×2 (10:54→21:27)
[2020-10-08] MEDS: FLUoxetine 20 MG CAP PO SCH (10:54)
[2020-10-08] MEDS: MULTIVITAMINS/MINERALS THERAP 1 TAB PO SCH (10:54)
--- NOTE | 2020-10-08 12:02 | IPNPDOC ---
Text Note Date of Service The patient was seen on 10/08/20. NOTE Subjective: No any acute events overnight. Objective: GENERAL APPEARANCE: NAD HEENT: no scleral icterus, no JVD, EOMI CARDIOVASCULAR: S1S2 LUNGS: CTA ABDOMEN: soft & mildly tender in epigastric area MUSCULOSKELETAL: no cyanosis, no swelling INTEGUMENT: no generalized pallor NEUROLOGICAL: cranial nerve function from 2-12 intact intact, follows commands, speech not dysarthric Assessment/Plan Patient is 55 years old male with past history of rheumatoid arthritis, history of TIA, type 2 diabetes, history of EtOH abuse presented hospital with intractable nausea and vomiting. Patient stated that he drank vodka for 5 days in a row and after that he developed epigastric pain with multiple episodes of vomiting without any blood. Patient has very poor oral intake and continuous nausea. In ER patient was found to have no leukocytosis, hemoglobin 12.3, glucose level 172, AST 68, ALT 28. CT abdomen and pelvis showed Possible infectious/inflammatory colitis. No bowel obstruction or perforation. Of note patient was recently hospitalized with multifocal pneumonia secondary to COVID- 19. Problems (1) Intractable vomiting Resolved Zofran IV Secondary to alcohol intoxication, possible gastritis or PUD PPI IV, Carafate (2) Alcohol intoxication CIWA (3) Hypertensive urgency Resolved Labetalol when necessary IV Lisinopril 40 mg once (4) Depression Continue home meds (5) Diabetes mellitus Insulin sliding scale diabetes diet Acute Anemia Secondary to GI loss Continue PPI Hemoglobin stable Gastritis/esophagitis/duodenal ulcers GI team did EGD yesterday patient was found to have Non-bleeding duodenal ulcers with pigmented material. Gastritis. Esophagitis. Follow-up with pathologist in 2 weeks, follow-up with GI team in the outpatient settings VS,Pradip, I+O VS, Guillermobone, I+O Laboratory Tests 10/07/20 18:42 10/07/20 23:46 10/08/20 06:08 Vital Signs Date Time Temp Pulse Resp B/P (MAP) Pulse Ox O2 Delivery O2 Flow Rate FiO2 10/08/20 06:00 96.2 71 16 121/71 (88) 99 Room Air I&O- Last 24 Hours up to 6 AM 10/08/20 06:00 Intake Total 3420 ml Output Total 1125 ml Balance 2295 ml TRUDI MARTINS DO Oct 08, 2020 12:02
[2020-10-08 12:25] LABS: HEMATOCRIT 31.3 % (42.0-52.0); HEMOGLOBIN 10.3 g/dl (13.5-17.5)
[2020-10-08 14:00] VITALS: BP 131/81
[2020-10-08] MEDS: ACETAMINOPHEN TAB 650MG DOSE (2X325MG) PO PRN ×2 (16:34→23:16)
[2020-10-08] MEDS ORDERED: CALCIUM CARBONATE 500 MG CHEW U/D PO ONE (17:15)
[2020-10-08] MEDS: hydrOXYzine 50 MG TAB PO PRN (19:32)
[2020-10-08] MEDS: QUEtiapine FUMARATE 100 MG TAB PO SCH (21:28)
[2020-10-08 22:00] VITALS: BP 145/85
[2020-10-09] MEDS: SLF 3 ML SYR IV SCH ×3 (05:04→21:40)
[2020-10-09 06:00] VITALS: BP 136/65
[2020-10-09 06:54] LABS: BASO % 0.3 % (0.0-1.0); EOS % 1.3 % (0.0-3.0); HEMATOCRIT 29.3 % (42.0-52.0); HEMOGLOBIN 9.5 g/dl (13.5-17.5); LYMPH % 32.3 % (24.0-44.0); MEAN CORPUSCULAR HEMOGLOBIN 29.1 pg (27.0-33.0); MEAN CORPUSCULAR HGB CONC 32.4 g/dl (32.0-36.5); MEAN CORPUSCULAR VOLUME 89.9 fl (80.0-96.0); MONO # 0.4 10^3/uL (0.0-0.8); MONO % 11.4 % (0.0-5.0); NEUTROPHILS # 1.7 10^3/uL (1.5-8.5); NEUTROPHILS % 53.4 % (36.0-66.0); RED BLOOD COUNT 3.26 10^6/uL (4.30-6.10); WHITE BLOOD COUNT 3.2 10^3/uL (4.0-10.0)
[2020-10-09 07:02] LABS: PLATELET COUNT, AUTOMATED 62 10^3/uL (150-450)
[2020-10-09 07:14] LABS: ALBUMIN 2.3 GM/DL (3.2-5.2); ALT/SGPT 25 U/L (12-78); BILIRUBIN,TOTAL 0.4 MG/DL (0.2-1.0); BLOOD UREA NITROGEN 4 MG/DL (7-18); CALCIUM LEVEL 7.6 MG/DL (8.5-10.1); CARBON DIOXIDE LEVEL 25 MEQ/L (21-32); CHLORIDE LEVEL 110 MEQ/L (98-107); CREATININE FOR GFR 0.82 MG/DL (0.70-1.30); GLOMERULAR FILTRATION RATE > 60.0 (>56); GLUCOSE, FASTING 100 MG/DL (70-100); MAGNESIUM LEVEL 1.4 MG/DL (1.8-2.4); POTASSIUM SERUM 3.6 MEQ/L (3.5-5.1); SODIUM LEVEL 141 MEQ/L (136-145); TOTAL PROTEIN 5.3 GM/DL (6.4-8.2)
[2020-10-09] MEDS: HumaLOG INSULIN (NovoLOG) PER UNIT SC SCH ×4 (07:30→21:00)
[2020-10-09] MEDS: ENOXAPARIN 40MG/0.4ML SYRINGE (J1650 PER 10MG) SC SCH (09:00)
[2020-10-09] MEDS ORDERED: OMEPRAZOLE 20 MG CAP PO ONE (09:30)
[2020-10-09] MEDS ORDERED: traMADol ER 100MG TABLET (ULTRAM ER) PO ONE (09:45)
[2020-10-09] MEDS: FLUoxetine 20 MG CAP PO SCH (10:31)
[2020-10-09] MEDS: SUCRALFATE SUSP 1GM/10ML UD PO SCH ×2 (10:31→21:39)
[2020-10-09] MEDS: FOLIC ACID 1 MG TAB PO SCH (10:31)
[2020-10-09] MEDS: TAMSULOSIN 0.4 MG CAP PO SCH ×2 (10:31→21:39)
[2020-10-09] MEDS: MULTIVITAMINS/MINERALS THERAP 1 TAB PO SCH (10:31)
[2020-10-09] MEDS: hydrOXYzine 50 MG TAB PO PRN ×2 (10:32→23:51)
[2020-10-09] MEDS: CARVedilol 12.5 MG TAB PO SCH ×2 (10:32→21:00)
--- NOTE | 2020-10-09 12:11 | IPNPDOC ---
Text Note Date of Service The patient was seen on 10/09/20. NOTE Subjective: Patient complains of severe epigastric pain and nausea Objective: GENERAL APPEARANCE: NAD HEENT: no scleral icterus, no JVD, EOMI CARDIOVASCULAR: S1S2 LUNGS: CTA ABDOMEN: soft & mildly tender in epigastric area MUSCULOSKELETAL: no cyanosis, no swelling INTEGUMENT: no generalized pallor NEUROLOGICAL: cranial nerve function from 2-12 intact intact, follows commands, speech not dysarthric Assessment/Plan Patient is 55 years old male with past history of rheumatoid arthritis, history of TIA, type 2 diabetes, history of EtOH abuse presented hospital with intrac table nausea and vomiting. Patient stated that he drank vodka for 5 days in a row and after that he developed epigastric pain with multiple episodes of vomiting without any blood. Patient has very poor oral intake and continuous nausea. In ER patient was found to have no leukocytosis, hemoglobin 12.3, glucose level 172, AST 68, ALT 28. CT abdomen and pelvis showed Possible infectious/inflammatory colitis. No bowel obstruction or perforation. Of note patient was recently hospitalized with multifocal pneumonia secondary to COVID- 19. Problems (1) Intractable vomiting Resolved Zofran IV Secondary to alcohol intoxication, possible gastritis or PUD PPI IV, Carafate (2) Alcohol intoxication CIWA (3) Hypertensive urgency Resolved Lisinopril 40 mg once (4) Depression Continue home meds (5) Diabetes mellitus Insulin sliding scale diabetes diet Acute Anemia Secondary to GI loss Continue PPI Hemoglobin stable Gastritis/esophagitis/duodenal ulcers/epigastric pain GI team did EGD on 10/07/19 oh patient was found to have Non-bleeding duodenal ulcers with pigmented material. Gastritis. Esophagitis. Follow-up with pathologist in 2 weeks, follow-up with GI team in the outpatient settings Pain management, Tums, PPI VS,Fishbone, I+O VS, Fishbone, I+O Laboratory Tests 10/08/20 12:12 10/09/20 06:18 Vital Signs Date Time Temp Pulse Resp B/P (MAP) Pulse Ox O2 Delivery O2 Flow Rate FiO2 10/09/20 10:32 70 156/96 10/09/20 06:00 99.7 18 99 Room Air I&O- Last 24 Hours up to 6 AM 10/09/20 06:00 Intake Total 1290 ml Output Total 275 ml Balance 1015 ml TRUDI MARTINS DO Oct 09, 2020 12:11
[2020-10-09] MEDS: ONDANSETRON 4MG/2ML VIAL IV PRN (12:18)
[2020-10-09] MEDS: CALCIUM CARBONATE 500 MG CHEW U/D PO PRN (12:19)
[2020-10-09 14:00] VITALS: BP 121/63
[2020-10-09] MEDS: ACETAMINOPHEN TAB 650MG DOSE (2X325MG) PO PRN ×2 (16:14→22:21)
[2020-10-09] MEDS: OMEPRAZOLE 20 MG CAP PO SCH (21:39)
[2020-10-09] MEDS: QUEtiapine FUMARATE 100 MG TAB PO SCH (21:39)
[2020-10-09 22:00] VITALS: BP 149/84
[2020-10-10] MEDS: SLF 3 ML SYR IV SCH (05:06)
[2020-10-10] MEDS: ACETAMINOPHEN TAB 650MG DOSE (2X325MG) PO PRN ×4 (05:08→22:43)
[2020-10-10 06:00] VITALS: BP 136/72
[2020-10-10 06:42] LABS: BASO % 0.6 % (0.0-1.0); EOS % 1.2 % (0.0-3.0); HEMATOCRIT 28.2 % (42.0-52.0); HEMOGLOBIN 9.2 g/dl (13.5-17.5); LYMPH # 0.9 10^3/uL (1.5-5.0); LYMPH % 28.1 % (24.0-44.0); MEAN CORPUSCULAR HEMOGLOBIN 29.2 pg (27.0-33.0); MEAN CORPUSCULAR HGB CONC 32.6 g/dl (32.0-36.5); MEAN CORPUSCULAR VOLUME 89.5 fl (80.0-96.0); MONO # 0.5 10^3/uL (0.0-0.8); MONO % 14.8 % (0.0-5.0); NEUTROPHILS # 1.8 10^3/uL (1.5-8.5); NEUTROPHILS % 54.4 % (36.0-66.0); RED BLOOD COUNT 3.15 10^6/uL (4.30-6.10); WHITE BLOOD COUNT 3.3 10^3/uL (4.0-10.0)
[2020-10-10 06:46] LABS: PLATELET COUNT, AUTOMATED 64 10^3/uL (150-450)
[2020-10-10 06:59] LABS: ALBUMIN 2.2 GM/DL (3.2-5.2); ALT/SGPT 24 U/L (12-78); BILIRUBIN,TOTAL 0.3 MG/DL (0.2-1.0); BLOOD UREA NITROGEN 7 MG/DL (7-18); CALCIUM LEVEL 7.4 MG/DL (8.5-10.1); CARBON DIOXIDE LEVEL 24 MEQ/L (21-32); CHLORIDE LEVEL 109 MEQ/L (98-107); CREATININE FOR GFR 0.71 MG/DL (0.70-1.30); GLOMERULAR FILTRATION RATE > 60.0 (>56); GLUCOSE, FASTING 107 MG/DL (70-100); MAGNESIUM LEVEL 1.3 MG/DL (1.8-2.4); POTASSIUM SERUM 3.1 MEQ/L (3.5-5.1); SODIUM LEVEL 142 MEQ/L (136-145); TOTAL PROTEIN 5.1 GM/DL (6.4-8.2)
[2020-10-10] MEDS: HumaLOG INSULIN (NovoLOG) PER UNIT SC SCH ×4 (07:30→20:39)
[2020-10-10] MEDS ORDERED: POTASSIUM CHLORIDE 10 MEQ SR TABLET PO ONE ×2 (08:00→09:45)
[2020-10-10] MEDS: ENOXAPARIN 40MG/0.4ML SYRINGE (J1650 PER 10MG) SC SCH (08:08)
[2020-10-10] MEDS: FLUoxetine 20 MG CAP PO SCH (08:56)
[2020-10-10] MEDS: OMEPRAZOLE 20 MG CAP PO SCH (08:56)
[2020-10-10] MEDS: SUCRALFATE SUSP 1GM/10ML UD PO SCH ×2 (08:56→20:38)
[2020-10-10] MEDS: MULTIVITAMINS/MINERALS THERAP 1 TAB PO SCH (08:56)
[2020-10-10] MEDS: FOLIC ACID 1 MG TAB PO SCH (08:56)
[2020-10-10] MEDS: TAMSULOSIN 0.4 MG CAP PO SCH ×2 (08:56→20:38)
[2020-10-10] MEDS: CARVedilol 12.5 MG TAB PO SCH ×2 (08:57→20:38)
[2020-10-10] MEDS ORDERED: MAG SULF 1GM/100ML (MAG RUN) 1 GM in IV 1 EA IV ONE (10:00)
[2020-10-10] MEDS: hydrOXYzine 50 MG TAB PO PRN (10:21)
[2020-10-10] MEDS: MAGNESIUM GLUCONATE 500 MG TAB PO SCH (11:40)
[2020-10-10] MEDS: LORazepam 1 MG TAB PO PRN ×2 (13:02→20:38)
[2020-10-10 14:00] VITALS: BP 155/98
--- NOTE | 2020-10-10 14:59 | IPNPDOC ---
Text Note Date of Service The patient was seen on 10/10/20. NOTE Subjective: Patient continues to complain of moderate epigastric pain and naus ea. Patient states that after meal and he has a severe nausea. Objective: GENERAL APPEARANCE: NAD HEENT: no scleral icterus, no JVD, EOMI CARDIOVASCULAR: S1S2 LUNGS: CTA ABDOMEN: soft & mildly tender in epigastric area MUSCULOSKELETAL: no cyanosis, no swelling INTEGUMENT: no generalized pallor NEUROLOGICAL: cranial nerve function from 2-12 intact intact, follows commands, speech not dysarthric Assessment/Plan Patient is 55 years old male with past history of rheumatoid arthritis, history of TIA, type 2 diabetes, history of EtOH abuse presented hospital with intractable nausea and vomiting. Patient stated that he drank vodka for 5 days in a row and after that he developed epigastric pain with multiple episodes of vomiting without any blood. Patient has very poor oral intake and continuous nausea. In ER patient was found to have no leukocytosis, hemoglobin 12.3, glucose level 172, AST 68, ALT 28. CT abdomen and pelvis showed Possible infectious/inflammatory colitis. No bowel obstruction or perforation. Of note patient was recently hospitalized with multifocal pneumonia secondary to COVID- 19. Problems (1) Intractable vomiting Resolved Zofran IV Secondary to alcohol intoxication, possible gastritis or PUD PPI IV, Carafate (2) Alcohol intoxication CIWA (3) Hypertensive urgency Resolved Lisinopril 40 mg once (4) Depression Continue home meds (5) Diabetes mellitus Insulin sliding scale diabetes diet Acute Anemia Secondary to GI loss Continue PPI Hemoglobin stable Gastritis/esophagitis/duodenal ulcers/epigastric pain GI team did EGD on 10/07/19 oh patient was found to have Non-bleeding duodenal ulcers with pigmented material. Gastritis. Esophagitis. Follow-up with pathologist in 2 weeks, follow-up with GI team in the outpatient settings Pain management, Tums, PPI VS,Fishbone, I+O VS, Fishbone, I+O Laboratory Tests 10/10/20 06:20 Vital Signs Date Time Temp Pulse Resp B/P (MAP) Pulse Ox O2 Delivery O2 Flow Rate FiO2 10/10/20 14:00 97.7 62 18 155/98 (117) 99 Room Air I&O- Last 24 Hours up to 6 AM 10/10/20 06:00 Intake Total 1280 ml Output Total 0 ml Balance 1280 ml DROZHZHIN,TURDI DO Oct 10, 2020 14:59
[2020-10-10] MEDS: QUEtiapine FUMARATE 100 MG TAB PO SCH (20:38)
[2020-10-10 22:00] VITALS: BP 144/81
[2020-10-10] MEDS: CALCIUM CARBONATE 500 MG CHEW U/D PO PRN (22:02)
[2020-10-11] MEDS: ACETAMINOPHEN TAB 650MG DOSE (2X325MG) PO PRN ×3 (02:47→14:38)
[2020-10-11 06:00] VITALS: BP 139/80
[2020-10-11 06:38] LABS: BASO % 0.5 % (0.0-1.0); HEMOGLOBIN 9.7 g/dl (13.5-17.5); LYMPH # 1.2 10^3/uL (1.5-5.0); LYMPH % 30.2 % (24.0-44.0); MEAN CORPUSCULAR HEMOGLOBIN 29.5 pg (27.0-33.0); MEAN CORPUSCULAR HGB CONC 32.3 g/dl (32.0-36.5); MEAN CORPUSCULAR VOLUME 91.2 fl (80.0-96.0); MONO # 0.5 10^3/uL (0.0-0.8); MONO % 13.3 % (0.0-5.0); NEUTROPHILS % 53.2 % (36.0-66.0); RED BLOOD COUNT 3.29 10^6/uL (4.30-6.10); WHITE BLOOD COUNT 3.8 10^3/uL (4.0-10.0)
[2020-10-11 06:41] LABS: PLATELET COUNT, AUTOMATED 78 10^3/uL (150-450)
[2020-10-11 07:02] LABS: ALBUMIN 2.2 GM/DL (3.2-5.2); ALT/SGPT 23 U/L (12-78); BILIRUBIN,TOTAL 0.2 MG/DL (0.2-1.0); BLOOD UREA NITROGEN 8 MG/DL (7-18); CALCIUM LEVEL 7.6 MG/DL (8.5-10.1); CARBON DIOXIDE LEVEL 24 MEQ/L (21-32); CHLORIDE LEVEL 109 MEQ/L (98-107); CREATININE FOR GFR 0.73 MG/DL (0.70-1.30); GLOMERULAR FILTRATION RATE > 60.0 (>56); GLUCOSE, FASTING 91 MG/DL (70-100); MAGNESIUM LEVEL 1.7 MG/DL (1.8-2.4); POTASSIUM SERUM 3.8 MEQ/L (3.5-5.1); SODIUM LEVEL 141 MEQ/L (136-145); TOTAL PROTEIN 5.8 GM/DL (6.4-8.2)
[2020-10-11] MEDS: HumaLOG INSULIN (NovoLOG) PER UNIT SC SCH ×2 (07:30→12:00)
[2020-10-11 08:32] VITALS: BP 144/64
[2020-10-11] MEDS: MULTIVITAMINS/MINERALS THERAP 1 TAB PO SCH (08:32)
[2020-10-11] MEDS: CARVedilol 12.5 MG TAB PO SCH (08:32)
[2020-10-11] MEDS: MAGNESIUM GLUCONATE 500 MG TAB PO SCH (08:33)
[2020-10-11] MEDS: FLUoxetine 20 MG CAP PO SCH (08:33)
[2020-10-11] MEDS: FOLIC ACID 1 MG TAB PO SCH (08:33)
[2020-10-11] MEDS: TAMSULOSIN 0.4 MG CAP PO SCH (08:33)
[2020-10-11] MEDS: SUCRALFATE SUSP 1GM/10ML UD PO SCH (08:33)
[2020-10-11] MEDS: CALCIUM CARBONATE 500 MG CHEW U/D PO PRN (08:33)
[2020-10-11] MEDS: ENOXAPARIN 40MG/0.4ML SYRINGE (J1650 PER 10MG) SC SCH (08:34)
[2020-10-11] MEDS: LORazepam 1 MG TAB PO PRN (08:34)
[2020-10-11] MEDS ORDERED: NEXI40CA PO (10:58)
[2020-10-11] MEDS ORDERED: CALC200T15 PO (11:03)
[2020-10-11] MEDS ORDERED: SUCR1ORA PO (11:03)
[2020-10-11] MEDS ORDERED: ASPI81CH33 PO (11:03)
[2020-10-11] MEDS ORDERED: MAGN50TA PO (11:03)
[2020-10-11] MEDS ORDERED: FOLI1TAB11 PO (11:03)
[2020-10-11] MEDS ORDERED: ATIV1TAB7 PO (11:03)
[2020-10-11] MEDS ORDERED: OMEP40CA97 PO (13:24)
--- NOTE | 2020-10-11 13:38 | DS.PDOC ---
Discharge Summary General Date of Admission Oct 05, 2020 at 13:49 Date of Discharge 10/11/20 Discharge Summary PROCEDURES PERFORMED DURING STAY: [None]. ADMITTING DIAGNOSES: Intractable vomiting Alcohol intoxication Hypertensive urgency Depression Diabetes mellitus Acute Anemia Gastritis/esophagitis/duodenal ulcers/epigastric pain DISCHARGE DIAGNOSES: Intractable vomiting Alcohol intoxication Hypertensive urgency Depression Diabetes mellitus Acute Anemia Gastritis/esophagitis/duodenal ulcers/epigastric pain COMPLICATIONS/CHIEF COMPLAINT: Alcohol Intoxication/Intractable Vomiting. HISTORY OF PRESENT ILLNESS: Patient is 55 years old male with past history of rheumatoid arthritis, history of TIA, type 2 diabetes, history of EtOH abuse pr [facility] with intractable nausea and vomiting. Patient stated that he drank vodka for 5 days in a row and after that he developed epigastric pain with multiple episodes of vomiting without any blood. Patient has very poor oral intake and continuous nausea. In ER patient was found to have no leukocytosis, hemoglobin 12.3, glucose level 172, AST 68, ALT 28. CT abdomen and pelvis showed Possible infectious/inflammatory colitis. No bowel obstruction or perforation. Of note patient was recently hospitalized with multifocal pneumonia secondary to COVID-19. HOSPITAL COURSE: During hospital stay following issue addressed (1) Intractable vomiting Resolved Patient received treatment with Zofran IV Secondary to alcohol intoxication, possible gastritis or PUD PPI IV, Carafate (2) Alcohol intoxication CIWA (3) Hypertensive urgency Resolved Lisinopril 40 mg once (4) Depression Continue home meds (5) Diabetes mellitus Insulin sliding scale diabetes diet Acute Anemia Secondary to GI loss Continue PPI Hemoglobin stable Gastritis/esophagitis/duodenal ulcers/epigastric pain GI team did EGD on 10/07/19 oh patient was found to have Non-bleeding duodenal ulcers with pigmented material. Gastritis. Esophagitis. Follow-up with pathologist in 2 weeks, follow-up with GI team in the outpatient settings Pain management, Tums, PPI DISCHARGE MEDICATIONS: Please see below. ALLERGIES: Please see below. PHYSICAL EXAMINATION ON DISCHARGE: VITAL SIGNS: Please see below. GENERAL APPEARANCE: NAD HEENT: no scleral icterus, no JVD, EOMI CARDIOVASCULAR: S1S2 LUNGS: CTA ABDOMEN: soft & mildly tender in epigastric area MUSCULOSKELETAL: no cyanosis, no swelling INTEGUMENT: no generalized pallor NEUROLOGICAL: cranial nerve function from 2-12 intact intact, follows commands, speech not dysarthric LABORATORY DATA: Please see below. PROGNOSIS: Fair ACTIVITY: [As tolerated]. DIET: Cardiac DISPOSITION: Home DISCHARGE INSTRUCTIONS: Stop drinking alcohol ITEMS TO FOLLOWUP ON ON OUTPATIENT: Follow-up with GI and PCP DISCHARGE CONDITION: [Stable]. TIME SPENT ON DISCHARGE:35minutes. Vital Signs/I&Os Vital Signs Date Time Temp Pulse Resp B/P (MAP) Pulse Ox O2 Delivery O2 Flow Rate FiO2 10/11/20 08:32 64 144/64 10/11/20 06:00 97.2 18 98 Room Air I&O- Last 24 Hours up to 6 AM 10/11/20 06:00 Intake Total 1090 ml Output Total 0 ml Balance 1090 ml Laboratory Data Labs 24H Laboratory Tests 2 10/10/20 16:38: Bedside Glucose (Misc Panel) 98 10/10/20 20:04: Bedside Glucose (Misc Panel) 157H 10/11/20 06:08: Immature Granulocyte % (Auto) 1.8, Neutrophils (%) (Auto) 53.2, Lymphocytes (%) (Auto) 30.2, Monocytes (%) (Auto) 13.3H, Eosinophils (%) (Auto) 1.0, Basophils (%) (Auto) 0.5, Neutrophils # (Auto) 2.0, Lymphocytes # (Auto) 1.2L, Monocytes # (Auto) 0.5, Eosinophils # (Auto) 0.0, Basophils # (Auto) 0.0, Nucleated Red Blood Cells % (auto) 0.5H, Anion Gap 8, Glomerular Filtration Rate > 60.0, Calcium Level 7.6L, Magnesium Level 1.7L, Total Bilirubin 0.2, Aspartate Amino Transf (AST/SGOT) 22, Alanine Aminotransferase (ALT/SGPT) 23, Alkaline Phosphatase 84, Total Protein 5.8L, Albumin 2.2L, Albumin/Globulin Ratio 0.6 10/11/20 11:20: Bedside Glucose (Misc Panel) 141H CBC/BMP Laboratory Tests 10/11/20 06:08 FSBS Laboratory Tests Test 10/10/20 16:38 10/10/20 20:04 10/11/20 11:20 Range/Units Bedside Glucose (Misc Panel) 98 157 141 70-105 MG/DL Discharge Medications Scheduled Aspirin (Aspirin) 81 Mg Tab.chew, 1 TAB PO DAILY for pain Atorvastatin Calcium (Atorvastatin Calcium) 80 Mg Tablet, 80 MG PO DAILY, (Reported) Carvedilol (Carvedilol) 12.5 Mg Tablet, 12.5 MG PO BID, (Reported) Esomeprazole Magnesium (Nexium) 40 Mg Capsule.dr, 40 MG PO BID Fluoxetine Hcl (Fluoxetine HCl) 20 Mg Capsule, 20 MG PO DAILY, (Reported) Folic Acid (Folic Acid) 1 Mg Tablet, 1 MG PO DAILY, (Reported) Folic Acid (Folic Acid) 1 Mg Tablet, 1 MG PO DAILY Omeprazole (Omeprazole) 40 Mg Capsule.dr, 40 MG PO BID Quetiapine Fumarate (Quetiapine Fumarate) 100 Mg Tablet, 100 MG PO QHS, (Reported) Sucralfate (Sucralfate) 1 Gm/10 Ml Oral.susp, 1 GM PO BID Tamsulosin HCl (Flomax) 0.4 Mg Capsule, 0.4 MG PO BID, (Reported) Scheduled PRN Calcium Carbonate (Calcium Carbonate) 200 Mg Tab.chew, 1,000 MG PO Q4HP PRN for HEARTBURN Hydroxyzine HCl (Hydroxyzine HCl) 50 Mg Tablet, 50 MG PO BID PRN for ANXIETY, (Reported) Lorazepam (Ativan) 1 Mg Tablet, 1 MG PO Q6H PRN for for anxiety Triamcinolone Acet (Triamcinolone Acetonide 0.1% Crm) 80 Gm Cream..g., 1 DOSE TOP BID PRN for ITCHING, (Reported) Allergies Coded Allergies: Yclovgj-Byv-Qtd Reductase Inhibitor (Verified Allergy, Severe, FACIAL REDNESS AND TINGLING, 10/05/20) niacin (Verified Adverse Reaction, Intermediate, CHEST PAIN AND FLUSHING, 10/05/20) hydrocodone (Verified Adverse Reaction, Mild, GI UPSET, 10/05/20) prednisone (Verified Adverse Reaction, Mild, MOOD CHANGE, 10/05/20) TRUDI MARTINS DO Oct 11, 2020 13:38
[2020-10-11] MEDS: hydrOXYzine 50 MG TAB PO PRN (14:38)
== END 2020-10-11 14:47 | disposition home or self-care (01) | DRG 241 ==
LOC: M ED 07:59 → EDBD 07:59 → M ED INP 13:49 → M PCU 15:17 → M MSPAV 10-07 21:56
PROVIDERS: ADMIT Internal Medicine; ATTEND Internal Medicine
PROC: 0DB78ZX Excision of Stomach, Pylorus, Via Natural or Artificial Opening Endoscopic, Diagnostic (ICD-10-PCS; 2020-10-06)
PROC: 0DB98ZX Excision of Duodenum, Via Natural or Artificial Opening Endoscopic, Diagnostic (ICD-10-PCS; principal; 2020-10-06 16:00)
DX: K29.70 Gastritis, unspecified, without bleeding (principal); K26.9 Duodenal ulcer, unspecified as acute or chronic, without hemorrhage or perforation; D62 Acute posthemorrhagic anemia; F10.129 Alcohol abuse with intoxication, unspecified; I16.0 Hypertensive urgency; F32.9 Major depressive disorder, single episode, unspecified; E11.9 Type 2 diabetes mellitus without complications; Z86.16 Personal history of COVID-19; M06.9 Rheumatoid arthritis, unspecified; F17.200 Nicotine dependence, unspecified, uncomplicated; F11.10 Opioid abuse, uncomplicated; K31.89 Other diseases of stomach and duodenum; K21.9 Gastro-esophageal reflux disease without esophagitis; N40.0 Benign prostatic hyperplasia without lower urinary tract symptoms; E03.9 Hypothyroidism, unspecified; K20.90 Esophagitis, unspecified without bleeding; L30.9 Dermatitis, unspecified; Z90.49 Acquired absence of other specified parts of digestive tract; Z79.82 Long term (current) use of aspirin; Z79.899 Other long term (current) drug therapy; Z88.5 Allergy status to narcotic agent; Z88.8 Allergy status to other drugs, medicaments and biological substances; Z86.73 Personal history of transient ischemic attack (TIA), and cerebral infarction without residual deficits

== ENCOUNTER 2021-03-27 17:32 | Emergency (ER) | payer MEDICAID, OTHER ==
[~2021-03-27] VITALS: Ht 172.7 cm; Wt 81.8 kg
[~2021-03-27 17:32] MED LIST changes: +ASPI81CH33 PO; +ATIV1TAB7 PO; +CALC200T15 PO; +MAGN50TA PO; +NEXI40CA PO; +OMEP-173 PO; -OMEP-218 PO; +OMEP40CA4 PO; +SUCR1ORA PO
[2021-03-27] MEDS ORDERED: OXAZEPAM 15 MG CAP PO ONE (17:50)
[2021-03-27 18:52] LABS: HEMATOCRIT 33.5 % (42.0-52.0); HEMOGLOBIN 10.9 g/dl (13.5-17.5); MEAN CORPUSCULAR HGB CONC 32.5 g/dl (32.0-36.5); MEAN CORPUSCULAR VOLUME 95.2 fl (80.0-96.0); PLATELET COUNT, AUTOMATED 106 10^3/uL (150-450); RED BLOOD COUNT 3.52 10^6/uL (4.30-6.10); WHITE BLOOD COUNT 6.2 10^3/uL (4.0-10.0)
[2021-03-27 19:23] LABS: ACETAMINOPHEN LEVEL 3.8 UG/ML (10.0-30.0); ALT/SGPT 21 U/L (12-78); BILIRUBIN,DIRECT 0.2 MG/DL (0.0-0.2); BILIRUBIN,TOTAL 0.3 MG/DL (0.2-1.0); BLOOD UREA NITROGEN 8 MG/DL (7-18); CALCIUM LEVEL 7.6 MG/DL (8.5-10.1); CARBON DIOXIDE LEVEL 17 MEQ/L (21-32); CHLORIDE LEVEL 106 MEQ/L (98-107); CREATININE FOR GFR 0.87 MG/DL (0.70-1.30); ETHYL ALCOHOL (ETHANOL) 0.295 % (0.000-0.010); GLOMERULAR FILTRATION RATE > 60.0 (>56); GLUCOSE, FASTING 79 MG/DL (70-100); POTASSIUM SERUM 3.8 MEQ/L (3.5-5.1); SALICYLATE LEVEL 5.4 MG/DL (5.0-30.0); SODIUM LEVEL 135 MEQ/L (136-145); TOTAL PROTEIN 6.5 GM/DL (6.4-8.2)
[2021-03-27 19:51] LABS: AMPHETAMINES LEVEL URINE NEGATIVE (NEGATIVE); BARBITURATES URINE NEGATIVE (NEGATIVE); BENZODIAZEPINES URINE NEGATIVE (NEGATIVE); CANNABINOIDS URINE POSITIVE (NEGATIVE); COCAINE METABOLITE URINE NEGATIVE (NEGATIVE); METHADONE URINE NEGATIVE (NEGATIVE); OPIATES URINE NEGATIVE (NEGATIVE); PHENCYCLIDINE URINE NEGATIVE (NEGATIVE)
[2021-03-28] MEDS ORDERED: OXAZEPAM 15 MG CAP PO ONE (02:25)
[2021-03-28] MEDS ORDERED: ONDANSETRON 4 MG ORAL DISINTEGRATING TAB PO ONE (02:25)
[2021-03-28 08:51] VITALS: BP 121/72
== END 2021-03-28 08:56 | disposition home or self-care (01) ==
LOC: M ED 17:32
DX: F10.10 Alcohol abuse, uncomplicated (principal); E11.9 Type 2 diabetes mellitus without complications; E07.9 Disorder of thyroid, unspecified; F33.9 Major depressive disorder, recurrent, unspecified; M10.9 Gout, unspecified; N40.0 Benign prostatic hyperplasia without lower urinary tract symptoms; Z79.899 Other long term (current) drug therapy; Z79.82 Long term (current) use of aspirin; Z88.5 Allergy status to narcotic agent; Z88.8 Allergy status to other drugs, medicaments and biological substances; F17.210 Nicotine dependence, cigarettes, uncomplicated
CPT/HCPCS: 36415; 80048; 80076; 80143; 80307; 82077; 84443; 85027; 99284; Q0162

== ENCOUNTER 2021-04-22 14:20 | Emergency (ER) | payer OTHER ==
[~2021-04-22] VITALS: Ht 172.7 cm; Wt 85.0 kg
[~2021-04-22 14:20] MED LIST changes: -OMEP-173 PO; +OMEP-218 PO
[2021-04-22] MEDS ORDERED: NS 2,550 ML in IV 1 EA IV ONE (14:50)
[2021-04-22 15:05] LABS: HEMATOCRIT 36.2 % (42.0-52.0); HEMOGLOBIN 12.1 g/dl (13.5-17.5); MEAN CORPUSCULAR HEMOGLOBIN 31.7 pg (27.0-33.0); MEAN CORPUSCULAR HGB CONC 33.4 g/dl (32.0-36.5); MEAN CORPUSCULAR VOLUME 94.8 fl (80.0-96.0); RED BLOOD COUNT 3.82 10^6/uL (4.30-6.10); WHITE BLOOD COUNT 4.9 10^3/uL (4.0-10.0)
--- NOTE | 2021-04-22 15:21 | REP ---
INDICATION: severe chest/back/abd pain COMPARISON: 04/22/2021 TECHNIQUE: Axial noncontrast images from the lung bases to the pubic symphysis with coronal and sagittal reformations. This CT examination was performed using the following dose reduction techniques: Automated exposure control, adjustment of mA and/or kv according to the patient's size, and use of iterative reconstruction technique. FINDINGS: Lung bases are clear. Visualized heart and pericardium normal. Liver demonstrates hepatomegaly and marked fatty infiltration. Splenomegaly is appreciated along with nonspecific stranding through the upper abdomen and few scattered small upper abdominal/epigastric lymph nodes. These findings are nonspecific and should be correlated with history to exclude cirrhosis/hepatocellular disease as well as the possibility of pancreatitis. Evidence for prior cholecystectomy. The enteric system is without obvious acute obstruction or inflammatory process. Scattered colonic diverticula noted without acute diverticulitis. Pelvis demonstrates normal bladder and age-appropriate prostate/seminal vesicles. Small fat containing left inguinal hernia noted. No ascites. No free air. Atherosclerotic changes to the aorta and vasculature without aneurysm or periaortic inflammatory change. Musculoskeletal structures are intact and without acute osseous abnormality. IMPRESSION: 1. Hepatosplenomegaly along with marked hepatosteatosis. Nonspecific stranding is also noted throughout the upper abdomen with few scattered small lymph nodes. Findings are nonspecific. Differential diagnosis includes hepatocellular disease, cirrhosis, as well as pancreatitis. 2. Nonacute findings as described above. 3. Stable atherosclerotic changes to the aorta and vasculature without abdominal aortic aneurysm or periaortic inflammatory changes/fluid. <Electronically signed by Nikko Moon > 04/22/21 [id number]
--- NOTE | 2021-04-22 15:23 | REP ---
INDICATION: painful swallowing COMPARISON: None. TECHNIQUE: Axial noncontrast images from the skull base to the thoracic inlet with coronal and sagittal reformations. This CT examination was performed using the following dose reduction techniques: Automated exposure control, adjustment of mA and/or kv according to the patient's size, and use of iterative reconstruction technique. FINDINGS: The naso, gabo and hypopharynx, larynx and subglottic trachea are normal in appearance. The salivary and thyroid glands are normal in size and density. Small lymph nodes less than 1 cm in size are present in the internal jugular chains, posterior triangles, submandibular and submental areas. The lung apices are clear. The visualized sinuses are clear. IMPRESSION: There is no obvious acute process, neck mass or significant adenopathy. <Electronically signed by Nikko Moon > 04/22/21 [id number]
[2021-04-22 15:25] LABS: INR 1.63; PROTHROMBIN TIME 19.7 SECONDS (12.7-14.5)
--- NOTE | 2021-04-22 15:25 | REP ---
INDICATION: severe chest/back/abd pain COMPARISON: 09/13/2020 TECHNIQUE: Axial noncontrast images from the thoracic inlet to the upper abdomen with coronal and sagittal reformations. This CT examination was performed using the following dose reduction techniques: Automated exposure control, adjustment of mA and/or kv according to the patient's size, and use of iterative reconstruction technique. FINDINGS: Lung duvall are well aerated. Minimal scarring at the lingula and left lower lobe consistent with sequelae from prior multifocal pneumonia and resolved compared with 10/05/2020. No acute consolidation, suspicious nodule or mass. No effusion. No pneumothorax. Tracheobronchial tree is patent. No axillary, hilar, or mediastinal adenopathy. Stable atherosclerotic changes of the thoracic aorta and coronary arteries without aortic aneurysm, cardiomegaly or pericardial effusion. Pulmonary vasculature appears normal. Thyroid gland is unremarkable. Surrounding osseous structures intact and without acute process. IMPRESSION: No acute mediastinal or pleuroparenchymal process. Relatively normal thoracic aorta without aneurysm. <Electronically signed by Nikko Moon > 04/22/21 [id number]
[2021-04-22 15:26] LABS: PARTIAL THROMBOPLASTIN TIME 39.2 SECONDS (25.9-37.0)
[2021-04-22 15:31] LABS: ALT/SGPT 584 U/L (12-78); BILIRUBIN,DIRECT 4.1 MG/DL (0.0-0.2); BILIRUBIN,TOTAL 4.7 MG/DL (0.2-1.0); CK-MB VALUE MASS 1.1 NG/ML (<3.6); CPK CREATINE PHOSPHOKINASE 101 U/L (39-308); LIPASE 348 U/L (73-393); MB/CK RELATIVE INDEX 1.09 (< OR =4); TROPONIN I < 0.02 NG/ML (< 0.10)
[2021-04-22] MEDS ORDERED: PANT40TA29 PO (15:34)
[2021-04-22] MEDS ORDERED: LISI10TA22 PO (15:34)
[2021-04-22] MEDS ORDERED: PIPERACILLIN/TAZOBACTAM SOD 4.5 GM in D5W MINI-BAG PLUS 50 ML IV ONE (15:35)
[2021-04-22 15:38] LABS: ANISOCYTOSIS 1+; LYMPHOCYTES 6 % (16-44); MONOCYTES 3 % (0-5); NEUTROPHILS 78 % (28-66); PLATELET ESTIMATE DECREASED (NORMAL)
[2021-04-22 15:39] LABS: OVALOCYTES 1+; POIKILOCYTOSIS 1+
[2021-04-22] MEDS ORDERED: NS 1,000 ML IV SCH (16:05)
[2021-04-22 16:27] LABS: ETHYL ALCOHOL (ETHANOL) < 0.003 % (0.000-0.010)
[2021-04-22] MEDS ORDERED: D5W IV ONE ×2 (16:30→18:00)
[2021-04-22] MEDS ORDERED: ACETYLCYSTEINE IV ONE ×2 (16:30→18:00)
[2021-04-22 16:51] LABS: RSV AMPLIFICATION NEGATIVE (NEGATIVE)
[2021-04-22] MEDS ORDERED: GI COCKTAIL 50ML BTL(HYOSCYAMINE/MAALOX/LIDOCAINE VISCOUS)(1:3:1) PO ONE (17:10)
[2021-04-22 17:34] LABS: APPEARANCE, URINE CLEAR (CLEAR); BACTERIA, URINE AUTO NEGATIVE (NEGATIVE); BILIRUBIN, URINE AUTO NEGATIVE (NEGATIVE); BLOOD, URINE BLOOD NEGATIVE (NEGATIVE); COLOR, URINE AMBER (YELLOW); GLUCOSE, URINE (UA) AUTO NEGATIVE (NEGATIVE); KETONE, URINE AUTO NEGATIVE (NEGATIVE); LEUKOCYTE ESTERASE, URINE AUTO NEGATIVE (NEGATIVE); MUCUS, URINE SMALL (NEGATIVE); NITRITE, URINE AUTO NEGATIVE (NEGATIVE); PROTEIN, URINE AUTO 1+ mg/dL (NEGATIVE); RBC, URINE AUTO 1 /HPF (0-3); SPECIFIC GRAVITY URINE AUTO 1.017 (1.002-1.035); SQUAMOUS EPITHELIAL CELL UR AU 0 /HPF (0-6); WBC, URINE AUTO 28 /HPF (0-3)
[2021-04-22] MEDS ORDERED: THIAMINE 100 MG TAB PO ONE (17:35)
[2021-04-22] MEDS ORDERED: MORPHINE 2 MG/ML 1ML VIAL (J2270) IV ONE (17:45)
[2021-04-22] MEDS ORDERED: ISOVUE-370 76% 100ML VIAL As Ordered ONE (18:22)
--- NOTE | 2021-04-22 19:16 | REPVR ---
PROCEDURE INFORMATION: Exam: CTA Abdomen and Pelvis With Contrast Exam date and time: 04/22/2021 6:32 PM Age: 56 years old Clinical indication: Abdominal pain; Generalized; Additional info: Severe abdominal pain; R/O ischemic colitis; Cre-1.7 TECHNIQUE: Imaging protocol: Computed tomographic angiography of the abdomen and pelvis with contrast material. 3D rendering (Not supervised by radiologist): MIP and/or 3D reconstructed images were created by the technologist. Radiation optimization: All CT scans at this facility use at least one of these dose optimization techniques: automated exposure control; mA and/or kV adjustment per patient size (includes targeted exams where dose is matched to clinical indication); or iterative reconstruction. Contrast material: ISOVUE 370; Contrast volume: 100 ml; Contrast route: INTRAVENOUS (IV); COMPARISON: CT ABD PELVIS W/O CONTRAST 04/22/2021 2:53 PM FINDINGS: Lungs: Parenchymal scarring left lower lobe. Aorta: Mild atherosclerotic changes in the abdominal aorta. No evidence of an aneurysm, dissection or occlusion. Minimal atherosclerotic changes at the origin of the superior mesenteric artery without significant stenosis. Celiac trunk and mesenteric arteries: Normal origin of the celiac artery. Renal arteries: Normal origin of the renal arteries. Right iliac arteries: Mild atherosclerotic changes in the right iliac arteries without evidence of aneurysm, stenosis or dissection. Left iliac arteries: Mild atherosclerotic changes in the left iliac arteries. There is a limited dissection demonstrated in the proximal common iliac artery. Remaining iliac arteries are unremarkable without evidence of any other dissection, aneurysm or occlusion. Other arteries/veins: Anterior, posterior and main portal veins poorly visualized, finding which may be related to arterial phase only images provided. Further evaluation could be obtained with ultrasound if clinically desired. Liver: There is a diffuse decrease in hepatic parenchymal density, consistent with steatosis. Clinical correlation to exclude steatohepatitis suggested. Gallbladder and bile ducts: Unremarkable. No calcified stones. No ductal dilation. Pancreas: There is peripancreatic inflammatory stranding and fluid, consistent with acute pancreatitis. Spleen: There is mild splenomegaly with a maximum span of 14 centimeters. No focal abnormalities demonstrated. Adrenal glands: Left adrenal hyperplasia. Kidneys and ureters: Unremarkable. No solid mass. No hydronephrosis. Stomach and bowel: Moderate diverticulosis is present in the distal colon. No diverticulitis. Boggy appearance of the right and transverse colon may indicate the presence of segmental colitis of any etiology. Appendix: No evidence of appendicitis. Intraperitoneal space: Streaky inflammatory changes demonstrated in the omentum in the right upper quadrant. Differential includes infection, inflammation of any etiology, and least likely neoplastic involvement. Lymph nodes: Abdominal lymphadenopathy measuring up to 9 mm in the right pericardiac fat pad, and 6 mm in the gastrohepatic ligament. Urinary bladder: Unremarkable. No mass. Reproductive: Unremarkable as visualized. Bones/joints: Mild central spinal stenosis L2-L3, L3-L4 and [id number] central spinal stenosis L4-L5. Soft tissues: Left inguinal hernia without incarceration. IMPRESSION: 1. There is a diffuse decrease in hepatic parenchymal density, consistent with steatosis. Clinical correlation to exclude steatohepatitis suggested. 2. There is mild splenomegaly. No focal abnormalities demonstrated. 3. Mild atherosclerotic changes in the abdominal aorta. No evidence of an aneurysm, dissection or occlusion. 4. Normal origin of the celiac artery. 5. Minimal atherosclerotic changes at the origin of the superior mesenteric artery without significant stenosis. 6. There is peripancreatic inflammatory stranding and fluid, consistent with acute pancreatitis. 7. Anterior, posterior and main portal veins poorly visualized, finding which may be related to arterial phase only images provided. Further evaluation could be obtained with ultrasound if clinically desired. 8. Moderate diverticulosis is present in the distal colon. No diverticulitis. 9. Boggy appearance of the right and transverse colon may indicate the presence of segmental colitis of any etiology. 10. Streaky inflammatory changes demonstrated in the omentum in the right upper quadrant. Differential includes infection, inflammation of any etiology, and least likely neoplastic involvement. Electronically signed by: Torres Comer On 04/22/2021 19:15:34 PM
--- NOTE | 2021-04-22 19:27 | ECGEPIP ---
[facility] - ED Test Date: 2021-04-22 Pat Name: JANICE LAY Department: Room: - Gender: Male [employer] Operator: RANDEE : 1965 Requested By: ADELSO VALDEZ Order Number: [id number] Reading MD: Tash Choi Measurements Intervals [place] Rate: 80 P: 75 VT: 148 QRS: 62 QRSD: 68 T: 52 QT: 386 QTc: 445 Interpretive Statements Normal sinus rhythm NSTTW abnormalities decreased rate 10/05/20 Electronically Signed on 04-22-2021 19:26:38 EDT by Tash Choi
[2021-04-22] MEDS ORDERED: NS 1,000 ML IV ONE (20:20)
[2021-04-22] MEDS ORDERED: NOREPINEPHRINE BITARTRATE 8 MG in D5W 492 ML IV SCH (21:05)
[2021-04-22] MEDS ORDERED: NOREPINEPHRINE 4 MG/4 ML AMP As Ordered ONE (21:07)
[2021-04-22 21:20] VITALS: BP 83/53
[2021-04-22] MEDS ORDERED: ACETYLCYSTEINE 8,500 MG in D5W 1,000 ML IV ONE (22:00)
== END 2021-04-22 21:25 | disposition short-term general hospital (02) ==
LOC: M ED 14:20
DX: K72.90 Hepatic failure, unspecified without coma (principal); I10 Essential (primary) hypertension; K74.69 Other cirrhosis of liver; K21.9 Gastro-esophageal reflux disease without esophagitis; K27.9 Peptic ulcer, site unspecified, unspecified as acute or chronic, without hemorrhage or perforation; Z86.73 Personal history of transient ischemic attack (TIA), and cerebral infarction without residual deficits; Z79.899 Other long term (current) drug therapy; Z79.82 Long term (current) use of aspirin; Z88.5 Allergy status to narcotic agent; Z88.8 Allergy status to other drugs, medicaments and biological substances; F17.210 Nicotine dependence, cigarettes, uncomplicated
CPT/HCPCS: 36556; 70490; 71250; 74174; 74176; 80047; 80076; 80143; 81001; 82077; 82140; 82550; 82553; 82803; 83605; 83690; 85025; 85610; 85730; 87040; 87076; 87631; 93005; 96361; 96365; 96367; 96375; 99291; J0132; J2270; J2543; Q9967